=== PATIENT | female | born 1970 | race Caucasian/White ===

== ENCOUNTER 2024-06-10 05:09 | Inpatient (IN) | payer MEDICAID ==
[~2024-06-10] VITALS: Ht 165.1 cm; Wt 109.5 kg
[2024-06-10 07:23] VITALS: PULSE 84; RESP 18; O2SAT 95
[2024-06-10] MEDS: LABETALOL HCL 20 MG/4 ML VL IV ONE (08:37)
[2024-06-10] MEDS: SODIUM CHLORIDE 0.9% 1,000 ML IV ONE (08:38)
[2024-06-10] MEDS: LORazepam 2MG/ML-1ML VIAL IV ONE ×5 (08:38→21:46)
[2024-06-10 08:54] LABS: Basophils # (auto) 0.1 10 ^3/uL (0-0.2); Basophils % (auto) 0.6 % (0.0-2.0); Eosinophils # (auto) 0 10 ^3/uL (0-0.8); Eosinophils % (auto) 0.1 % (0.0-7.0); Hematocrit 46.2 % (36.0-46.0); Hemoglobin 15.7 g/dL (12.2-16.2); Lymphocytes # (auto) 2.3 10 ^3/uL (0.4-5.4); Mean Corpuscular Hemoglobin 34.6 pg (28.0-32.0); Mean Corpuscular Volume 101.7 fL (80.0-100.0); Neutrophils # (auto) 12.9 10 ^3/uL (1.6-8.6); Neutrophils % (auto) 79.3 % (37.0-80.0); Nucleated Red Blood Cells % 0.1 %; Platelet Count (auto) 281 10^3/uL (140-450); Red Blood Cells 4.55 10^6/uL (4.0-5.20); Red Cell Distribution Width 14.2 % (11.8-14.3); White Blood Cell 16.3 10^3/uL (4.4-10.8)
[2024-06-10 09:06] LABS: Urine Bacteria None Seen /hpf (None Seen)
[2024-06-10 09:12] LABS: Alanine Aminotransferase 62 U/L (7-40); Albumin 4.5 g/dL (3.2-4.8); Alkaline Phosphatase 59 U/L (46-116); Anion Gap 12 (5-15); Aspartate Aminotransferase 58 U/L (13-40); BUN/Creatinine Ratio 10.4 (10.0-20.0); Blood Urea Nitrogen 11 mg/dL (9-23); Calcium 10.5 mg/dL (8.7-10.4); Carbon Dioxide 23 mmol/L (20-30); Chloride 106 mmol/L (98-107); Glucose 126 mg/dL (74-106); Magnesium 2.1 mg/dL (1.6-2.6); Potassium 4.1 mmol/L (3.5-5.1); Sodium 141 mmol/L (136-145)
[2024-06-10 09:13] LABS: Bilirubin, Total 0.8 mg/dL (0.2-1.0); Total Protein 7.1 g/dL (5.7-8.2)
[2024-06-10 09:14] LABS: INR 1.02 (0.9-1.15); Partial Thromboplastin Time 23.1 SEC (24.5-34.5)
[2024-06-10 09:22] LABS: Urine Blood Negative /uL (Negative); Urine Clarity Clear (Clear); Urine Color Light-Yellow (Yellow); Urine Protein, UAD TRACE (Negative); Urine Specific Gravity 1.014 (1.001-1.035); Urine Urobilinogen Normal (Negative); Urine WBC <1 /hpf (0 - 5)
[2024-06-10 09:43] LABS: Amphetamine Screen, Urine Neg (NEGATIVE)
[2024-06-10 09:44] LABS: Barbiturate Scree,Urine Neg (NEGATIVE); Benzodiazephine Screen, Urine Pos (NEGATIVE); Cocaine Screen, Urine Neg (NEGATIVE); Opiate Scree,Urine Neg (NEGATIVE); Phencyclidine Screen, Urine Neg (NEGATIVE)
[2024-06-10 09:45] LABS: Cannabinoid Screen, Urine Pos (NEGATIVE)
[2024-06-10] MEDS: OLANZapine 5 MG TAB PO ONE (11:37)
[2024-06-10] MEDS: IOHEXOL 300 MG/ML 100ML BOTTLE IJ ONE (14:02)
[2024-06-10] MEDS ORDERED: NITROGLYCERIN 0.4 MG SL TAB SL PRN (16:15)
[2024-06-10] MEDS ORDERED: MORPHINE SULFATE INJ 2 MG/ml SYRG IV PRN (16:15)
[2024-06-10 16:42] LABS: Base Excess -0.2 mmol/L (-2.0-3.0)
[2024-06-10] MEDS: cefTRIAXone 1GM/50ML D5W 50 ML IV ONE (17:02)
[2024-06-10] MEDS: D5W/SOD CHL 0.45% 1,000 ML IV SCH (17:02)
[2024-06-10] MEDS: LABETALOL HCL 20 MG/4 ML VL IV PRN (17:56)
[2024-06-10] MEDS: levETIRAcetam 500 mg/100ml 100 ML IV ONE (18:06)
[2024-06-10] MEDS: cloNIDine 0.1 mg/24hr 7 DAY PATCH TD ONE (18:44)
[2024-06-10 19:30] VITALS: PULSE 93; RESP 28; O2SAT 95
[2024-06-10 19:51] LABS: COVID19 ANTIGEN SOFIA FIA NEGATIVE (NEGATIVE)
[2024-06-10 19:52] LABS: Rapid Influenza A Negative (Negative); Rapid Influenza B Negative (Negative)
[2024-06-10] MEDS ORDERED: ACETAMINOPHEN 650 MG RECT SUPP PR PRN (21:00)
[2024-06-10] MEDS: HALOPERIDOL LACTATE 5 MG/ML INJ VIAL IM PRN (21:13)
[2024-06-10] MEDS: diphenhdrAMINE HCL 50 MG/1 ML VL IV ONE (21:47)
[2024-06-10] MEDS: HALOPERIDOL LACTATE 5 MG/ML INJ VIAL IM ONE (21:49)
[2024-06-11] MEDS: hydrALAZINE HCL 20 MG/ML VL IV PRN (04:34)
[2024-06-11] MEDS: METOCLOPRAMIDE HCL 5MG/ml INJ 2ml VIAL IV ONE (06:37)
[2024-06-11 07:14] LABS: Basophils # (auto) 0.1 10 ^3/uL (0-0.2); Basophils % (auto) 0.9 % (0.0-2.0); Eosinophils # (auto) 0 10 ^3/uL (0-0.8); Eosinophils % (auto) 0.1 % (0.0-7.0); Hematocrit 45.6 % (36.0-46.0); Hemoglobin 14.9 g/dL (12.2-16.2); Lymphocytes # (auto) 2.7 10 ^3/uL (0.4-5.4); Lymphocytes % (auto) 21.1 % (10.0-50.0); Mean Corpuscular Hemoglobin 33.8 pg (28.0-32.0); Mean Corpuscular Hgb Conc. 32.6 g/dL (32.0-36.0); Mean Corpuscular Volume 103.8 fL (80.0-100.0); Monocytes % (auto) 7.9 % (0.0-12.0); Neutrophils # (auto) 9.1 10 ^3/uL (1.6-8.6); Nucleated Red Blood Cells % 0.1 %; Platelet Count (auto) 216 10^3/uL (140-450); Red Blood Cells 4.39 10^6/uL (4.0-5.20); Red Cell Distribution Width 14.6 % (11.8-14.3)
[2024-06-11 07:17] LABS: Alanine Aminotransferase 48 U/L (7-40); Alkaline Phosphatase 47 U/L (46-116); Anion Gap 12 (5-15); BUN/Creatinine Ratio 4.3 (10.0-20.0); Blood Urea Nitrogen 5 mg/dL (9-23); Calcium 9.9 mg/dL (8.7-10.4); Carbon Dioxide 21 mmol/L (20-30); Chloride 109 mmol/L (98-107); Glucose 132 mg/dL (74-106); Potassium 2.9 mmol/L (3.5-5.1); Sodium 142 mmol/L (136-145)
[2024-06-11 07:18] LABS: Albumin 4.1 g/dL (3.2-4.8); Aspartate Aminotransferase 51 U/L (13-40)
[2024-06-11 07:19] LABS: Total Protein 6.9 g/dL (5.7-8.2)
[2024-06-11 07:50] VITALS: PULSE 97; RESP 22; O2SAT 97
[2024-06-11] MEDS: cefTRIAXone 1GM/50ML D5W 50 ML IV SCH (09:29)
[2024-06-11] MEDS: FAMOTIDINE (10MG/ML) 2ML VL IV SCH (09:30)
[2024-06-11] MEDS: METOCLOPRAMIDE HCL 5MG/ml INJ 2ml VIAL IV PRN (13:00)
[2024-06-11] MEDS: dilTIAZem 125mg/125ml BAG KIT 125 ML IV SCH (13:00)
[2024-06-11] MEDS: dilTIAZem 25 MG/5 ML VIAL IV ONE ×4 (13:04→13:53)
[2024-06-11] MEDS: dilTIAZem 125mg/125ml BAG KIT 125 ML IV ONE (13:05)
[2024-06-11] MEDS: ADENOSINE 6 MG/2 ML INJ IV ONE ×4 (13:38→13:55)
[2024-06-11] MEDS: ONDANSETRON HCL 4 MG/2 ML VIAL ONE (13:53)
[2024-06-11] MEDS: METOPROLOL TARTRATE 1MG/1ML-5ML VIAL IV ONE ×3 (13:54→15:20)
[2024-06-11] MEDS: AMIODARONE 450mg/250ml AE 250 ML IV SCH ×2 (14:45→20:45)
[2024-06-11] MEDS: AMIODARONE BOLUS KIT 100 ML IV ONE (14:46)
[2024-06-11] MEDS: MAGNESIUM SULFATE 1GM/100ML 100 ML IV SCH (15:14)
[2024-06-11] MEDS: ENOXAPARIN SOD 100 MG/1 ML SYRINGE SC SCH ×2 (15:15→21:50)
[2024-06-11] MEDS: DIGOXIN (250MCG/ML) 2 ML AMPULE IV ONE (15:50)
[2024-06-11] MEDS: POTASSIUM CHLORIDE 40 MEQ, LIDOCAINE 1% (LOCAL ANESTH.) 4 ML in SODIUM CHL 0.9% 250 ML IV ONE (17:05)
[2024-06-11 20:35] LABS: Potassium 3.5 mmol/L (3.5-5.1)
[2024-06-11 20:42] LABS: Magnesium 2.3 mg/dL (1.6-2.6)
[2024-06-11] MEDS: LORazepam 2MG/ML-1ML VIAL IV PRN (22:36)
[2024-06-12] MEDS: MELATONIN 5 MG TAB PO SCH (02:16)
[2024-06-12] MEDS: ACETAMINOPHEN 325 MG TAB PO PRN (04:36)
[2024-06-12] MEDS: METOPROLOL TARTRATE 50 MG TAB PO SCH (06:40)
[2024-06-12] MEDS: amLODIPine BESYLATE 5 MG TAB PO SCH (06:41)
[2024-06-12 07:02] LABS: Basophils # (auto) 0.1 10 ^3/uL (0-0.2); Basophils % (auto) 0.8 % (0.0-2.0); Eosinophils # (auto) 0 10 ^3/uL (0-0.8); Eosinophils % (auto) 0.2 % (0.0-7.0); Hemoglobin 13.7 g/dL (12.2-16.2); Lymphocytes # (auto) 2.6 10 ^3/uL (0.4-5.4); Lymphocytes % (auto) 21.6 % (10.0-50.0); Mean Corpuscular Volume 103.4 fL (80.0-100.0); Monocytes # (auto) 1.2 10 ^3/uL (0-1.3); Nucleated Red Blood Cells % 0.1 %; Red Cell Distribution Width 14.2 % (11.8-14.3)
[2024-06-12 07:04] LABS: Hematocrit 41.4 % (36.0-46.0); Mean Corpuscular Hemoglobin 34.3 pg (28.0-32.0); Mean Corpuscular Hgb Conc. 33.1 g/dL (32.0-36.0); Monocytes % (auto) 9.7 % (0.0-12.0); Neutrophils # (auto) 8.2 10 ^3/uL (1.6-8.6); Neutrophils % (auto) 67.7 % (37.0-80.0); Platelet Count (auto) 185 10^3/uL (140-450); Red Blood Cells 4.01 10^6/uL (4.0-5.20)
[2024-06-12 07:20] LABS: Alanine Aminotransferase 42 U/L (7-40); Alkaline Phosphatase 41 U/L (46-116); Anion Gap 9 (5-15); Aspartate Aminotransferase 42 U/L (13-40); Calcium 9.4 mg/dL (8.7-10.4); Carbon Dioxide 19 mmol/L (20-30); Chloride 110 mmol/L (98-107); Glucose 126 mg/dL (74-106); Magnesium 2.2 mg/dL (1.6-2.6); Potassium 3.2 mmol/L (3.5-5.1); Sodium 138 mmol/L (136-145)
[2024-06-12 07:21] LABS: Total Protein 6.4 g/dL (5.7-8.2)
[2024-06-12 07:28] LABS: BUN/Creatinine Ratio 4.5 (10.0-20.0); Blood Urea Nitrogen < 5 mg/dL (9-23)
[2024-06-12 07:30] VITALS: PULSE 81; RESP 14; O2SAT 96
[2024-06-12 13:43] VITALS: BP 173/84; PULSE 76; RESP 15; TEMP 97.9; O2SAT 96
[2024-06-12] MEDS ORDERED: CLON0.1T PO (15:11)
[2024-06-12] MEDS ORDERED: PANT40T PO (15:11)
[2024-06-12] MEDS ORDERED: PRAZ1CAP2 PO (15:11)
[2024-06-12] MEDS ORDERED: HYDR-4798 PO (15:11)
[2024-06-12] MEDS ORDERED: SERT-377 PO (15:11)
[2024-06-12] MEDS ORDERED: NITR50CA52 PO (15:11)
[2024-06-12] MEDS ORDERED: ROSU40TA81 PO (15:11)
[2024-06-12] MEDS ORDERED: ALPR0.254 PO (15:11)
[2024-06-12] MEDS ORDERED: TIZA4TAB9 PO (15:11)
[2024-06-12] MEDS ORDERED: LOSA-535 PO (15:11)
[2024-06-12] MEDS ORDERED: FERR325T20 PO (15:11)
[2024-06-12] MEDS ORDERED: DOXE75CA20 PO (15:11)
[2024-06-12] MEDS ORDERED: IBUP-1456 PO (15:11)
[2024-06-12] MEDS ORDERED: ALBU108A5 IN (15:11)
[2024-06-12] MEDS ORDERED: NIFE90TA75 PO (15:11)
[2024-06-12] MEDS ORDERED: METO25TA93 PO (15:11)
[2024-06-12] MEDS ORDERED: ERGO1CAP23 PO (15:11)
[2024-06-12] MEDS: POTASSIUM CHL 20 Meq TABLET PO ONE (15:22)
[2024-06-12] MEDS: PNEUMOCOCCAL VACC POLYS 25 MCG/0.5 ML VIAL IM ONE (15:30)
[2024-06-12 17:00] VITALS: BP 159/82; PULSE 64; RESP 17; TEMP 98.2; O2SAT 98
[2024-06-12] MEDS ORDERED: amLODIPine BESYLATE 5 MG TAB PO SCH (18:00)
[2024-06-12 20:00] VITALS: PULSE 69
[2024-06-12 21:00] VITALS: BP 124/77; PULSE 68; RESP 17; TEMP 98.3; O2SAT 98
[2024-06-12] MEDS: AMIODARONE HCL 200 MG TAB PO SCH (21:51)
[2024-06-12] MEDS: NIFEdipine ER 30 MG TAB PO SCH (21:52)
[2024-06-12] MEDS: APIXABAN 5 MG TAB PO SCH (21:53)
[2024-06-13 01:00] VITALS: BP 115/49; PULSE 72; RESP 17; TEMP 98.4; O2SAT 94
[2024-06-13 05:00] VITALS: BP 115/47; PULSE 75; RESP 15; TEMP 98.6; O2SAT 96
[2024-06-13 06:48] LABS: Basophils # (auto) 0.1 10 ^3/uL (0-0.2); Eosinophils # (auto) 0.1 10 ^3/uL (0-0.8); Hemoglobin 12.9 g/dL (12.2-16.2); Monocytes # (auto) 0.7 10 ^3/uL (0-1.3); Nucleated Red Blood Cells % 0.5 %
[2024-06-13 06:51] LABS: Basophils % (auto) 0.7 % (0.0-2.0); Eosinophils % (auto) 1.5 % (0.0-7.0); Hematocrit 38.2 % (36.0-46.0); Mean Corpuscular Hemoglobin 35.2 pg (28.0-32.0); Mean Corpuscular Hgb Conc. 33.9 g/dL (32.0-36.0); Monocytes % (auto) 8.7 % (0.0-12.0); Neutrophils # (auto) 4.7 10 ^3/uL (1.6-8.6); Neutrophils % (auto) 63.1 % (37.0-80.0); Platelet Count (auto) 177 10^3/uL (140-450); Red Blood Cells 3.67 10^6/uL (4.0-5.20); Red Cell Distribution Width 14.6 % (11.8-14.3); White Blood Cell 7.5 10^3/uL (4.4-10.8)
[2024-06-13 07:12] LABS: Alanine Aminotransferase 28 U/L (7-40); Albumin 3.5 g/dL (3.2-4.8); Alkaline Phosphatase 35 U/L (46-116); Anion Gap 8 (5-15); Aspartate Aminotransferase 33 U/L (13-40); BUN/Creatinine Ratio 4.5 (10.0-20.0); Blood Urea Nitrogen 5 mg/dL (9-23); Calcium 9.1 mg/dL (8.7-10.4); Carbon Dioxide 21 mmol/L (20-30); Chloride 112 mmol/L (98-107); Glucose 99 mg/dL (74-106); Magnesium 2.1 mg/dL (1.6-2.6); Potassium 3.6 mmol/L (3.5-5.1); Sodium 141 mmol/L (136-145)
[2024-06-13 07:13] LABS: Bilirubin, Total 0.7 mg/dL (0.2-1.0); Total Protein 5.7 g/dL (5.7-8.2)
[2024-06-13 08:00] VITALS: PULSE 62
[2024-06-13 09:00] VITALS: BP 139/69; PULSE 68; RESP 20; TEMP 97.7; O2SAT 93
[2024-06-13 13:00] VITALS: BP 130/66; PULSE 77; RESP 17; TEMP 97.6; O2SAT 95
[2024-06-13] MEDS ORDERED: AMIO200T33 PO (13:12)
[2024-06-13] MEDS ORDERED: METO25TA93 PO (13:12)
[2024-06-13] MEDS ORDERED: APIX5TAB PO (13:12)
[2024-06-13 13:44] VITALS: BP 132/64; PULSE 64; RESP 17; TEMP 97.8; O2SAT 94
[2024-06-13] MEDS ORDERED: CEFD300C2 PO (16:15)
[2024-06-13] MEDS ORDERED: MUPI2OIN2 NAS (16:15)
== END 2024-06-13 16:10 | disposition home health service (06) | DRG 463 ==
LOC: EDBD 05:09 → ER 05:09 → TELE-EAST 16:17 → ER 16:17 → TELE 16:17 → TELE-EAST 06-12 13:15
PROVIDERS: ADMIT Hospitalist; ATTEND Hospitalist
DX: N30.00 Acute cystitis without hematuria (principal); G93.41 Metabolic encephalopathy; I67.4 Hypertensive encephalopathy; I10 Essential (primary) hypertension; E66.01 Morbid (severe) obesity due to excess calories; J45.909 Unspecified asthma, uncomplicated; E87.6 Hypokalemia; B96.1 Klebsiella pneumoniae [K. pneumoniae] as the cause of diseases classified elsewhere; R32 Unspecified urinary incontinence; I48.91 Unspecified atrial fibrillation; Z88.1 Allergy status to other antibiotic agents; Z85.43 Personal history of malignant neoplasm of ovary; Z85.41 Personal history of malignant neoplasm of cervix uteri; Z86.73 Personal history of transient ischemic attack (TIA), and cerebral infarction without residual deficits; Z79.899 Other long term (current) drug therapy; Z68.38 Body mass index [BMI] 38.0-38.9, adult
CPT/HCPCS: 36415; 36600; 70450; 70551; 71045; 71275; 80053; 80307; 81001; 82140; 82805; 83605; 83735; 84132; 84484; 85025; 85379; 85610; 85730; 87040; 87081; 87086; 87088; 87186; 87426; 87804; 93005; 93306; 96374; 96375; 97163; 99291; G0378; J0153; J2001; J2405; J3490

== ENCOUNTER 2024-12-16 20:02 | Inpatient (IN) | payer MEDICAID ==
[~2024-12-16] VITALS: Ht 165.1 cm; Wt 106.8 kg
[~2024-12-16 20:02] MED LIST: ALBU108A5 IN; ALPR0.254 PO; AMIO200T33 PO; APIX5TAB PO; CEFD300C2 PO; DOXE75CA20 PO; ERGO1CAP23 PO; FERR325T20 PO; HYDR-4798 PO; LOSA-535 PO; METO25TA93 PO; MUPI2OIN2 NAS; NIFE90TA75 PO; PANT40T PO; PRAZ1CAP2 PO; ROSU40TA81 PO; SERT-377 PO; TIZA4TAB9 PO
--- NOTE | 2024-12-16 20:13 | ED.PDOC ---
SOB-HPI HPI Comments 54 year old female brought in by EMS presents to the ED with a chief complaint of shortness of breath onset 5 days. Per EMS, patient had been experiencing shortness of breath for the past 5 days, had been trying to manage it on her own with breathing treatment, no improvement noted. Per EMS, patient's O2 was 80% RA, HR 90, BP 155/93, was given 3 breathing treatments in route, O2 improved to 96%, dropped to 80% few minutes after, was placed on C-pap. Patient states she feels exhausted, has experienced similar symptoms in the past and was intubated. PMHx CHF, COPD, a-fib, ovarian cancer, HTN, HLD, CKF. Denies congestion, fever, chills, nausea, vomiting, diarrhea. No other symptoms or modifying factors pre sent at this time. Chief Complaint: Shortness of Breath Time Seen by MD: 19:58 Primary Care Provider: NONE Reviewed notes: Medications, Allergies Information Source: Patient, Emergency Med Personnel Mode of Arrival: EMS Severity: Moderate Timing: Days Duration: Since onset Context: At Rest PE Risk Factors: None History of: COPD, CHF Prehospital treatment: Breathing Tx, C-Pap Modifying Factors: Nothing Associated Signs and Symptoms: Cough Radiation: No Radiation Vital Signs Vital Signs Date Time Temp Pulse Resp B/P (MAP) Pulse Ox O2 Delivery O2 Flow Rate FiO2 12/16/24 21:59 95 Nasal Cannula* 5 40 12/16/24 21:11 91 26 142/77 12/16/24 20:11 97.2 Physical Exam General: Awake, alert and oriented. Skin: Skin in warm, dry and intact. Appropriate color for ethnicity. HEENT: The head is normocephalic and atraumatic. Conjunctivae are clear without exudates or hemorrhage. Sclera is non-icteric. EOM are intact. No signs of nystagmus. Eyelids are normal in appearance without swelling or lesions. Oral mucosa is pink and moist Neck: The neck is supple with normal range of motion. No JVD. Cardiac: Heart rate and rhythm are normal. No murmurs, gallops, or rubs are auscultated. Respiratory: Labored, tachypneic respirations. Bilateral rales Abdominal: Abdomen is soft, non-tender without distention. Bowel sounds are present and normoactive in all four quadrants. Extremities: Upper and lower extremities are atraumatic in appearance without deformity or edema. Neurological: The patient is awake, alert and oriented to person, place, and time with normal speech. Speech is clear. There is no facial asymmetry. Psychiatric: Appropriate mood and affect. Good judgement and insight. No visual or auditory hallucinations. Review of Systems: REVIEW OF SYSTEMS: No fever, no chills, or fatigue HEENT: No sore throat, no earache, no congestion, no neck pain. Cardiac: Positive chest pain. No palpitations. Lungs: Positive shortness of breath, pauses cough. GI: No nausea, no vomiting, no diarrhea, no constipation, no abdominal pain : No dysuria, frequency, or urgency. No hematuria. Musculoskeletal: No joint pain , no joint swelling, no extremity edema. Skin: No rash, no itching. 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 Was a procedure done?: No Differential Dx Differential Diagnosis: Other Comments Differential diagnoses considered includebut arenot limited to acute Bronchitis, Asthma, COPD, Pneumothorax, PE, CHF, Pulmonary HTN, Anemia, CO Poisoning, Methemoglobinemia, Hyperventilation, Metabolic Acidosis, Pulmonary Edema, Pneumonia, ACS, Pericardial Tamponade, Anxiety, other X-Ray, Labs, Meds, VS Vital Signs Date Time Temp Pulse Resp B/P (MAP) Pulse Ox O2 Delivery O2 Flow Rate FiO2 12/16/24 21:59 95 Nasal Cannula* 5 40 12/16/24 21:11 91 26 142/77 12/16/24 21:07 142/77 12/16/24 20:11 97.2 90 30 150/93 (112) 96 12/16/24 20:05 88 142/77 Facial BiPAP Mask 60 12/16/24 20:05 91 12/16/24 20:02 93 Lab Test 12/16/24 22:55 12/16/24 21:55 12/16/24 21:37 12/16/24 20:44 Range/Units Urine Color Light-yellow Yellow Urine Clarity Clear Clear Urine pH 6.0 5.0-9.0 Urine Specific [place] 1.007 1.001-1.035 Urine Protein Negative Negative Urine Ketones Negative Negative Urine Blood Negative Negative /uL Urine Nitrite Negative Negative Urine Bilirubin Negative Negative Urine Urobilinogen Normal Negative mg/dL Urine Leukocyte Esterase Negative Negative /uL Urine RBC 1 0 - 4 /hpf Urine Microscopic WBC < 1 0-5 /HPF Urine Squamous Epithelial Cells Few <5 /hpf Urine Bacteria Few H None Seen /hpf Urine Mucus Few None Seen Urine Glucose Normal Normal mg/dL Troponin I High Sensitivity 3 L 3 L </=34 ng/L Blood Gas Specimen Type Arterial Blood Gas Sample Site Left radial Blood Gas Patient Temperature 37.0 Arterial Blood Date Drawn [id number] Arterial Blood pH 7.418 7.350-7.450 Arterial Blood Partial Pressure CO2 37.2 32.0-45.0 mmHg Arterial Blood Partial Pressure O2 87.0 83.0-108.0 mmHg Arterial Blood HCO3 23.5 21.0-28.0 mmol/L Arterial Blood Oxygen Saturation 95.7 94.0-98.0 % Arterial Blood Base Excess -0.8 -2.0-3.0 mmol/L Arterial Blood Oxyhemoglobin 94.4 94.0-98.0 % Arterial Blood Carboxyhemoglobin 1.2 0.5-1.5 % Arterial Blood Methemoglobin 0.2 0.0-1.5 % Elfego Test Modified Blood Gas Total Hemoglobin 9.70 L 12.0-16.0 g/dL Blood Gas Set Respiration Rate 14.0 Blood Gas Modality Mask - bipap FiO2 % 60.0 Blood Gas EPAP 5 Blood Gas IPAP 14 White Blood Count 11.0 H 4.4-10.8 10^3/uL Red Blood Count 2.96 L 4.0-5.20 10^6/uL Hemoglobin 10.0 L 12.2-16.2 g/dL Hematocrit 31.5 L 36.0-46.0 % Mean Corpuscular Volume 106.4 H 80.0-100.0 fL Mean Corpuscular Hemoglobin 33.7 H 28.0-32.0 pg Mean Corpuscular Hemoglobin Concent 31.7 L 32.0-36.0 g/dL Red Cell Distribution Width 16.6 H 11.8-14.3 % Platelet Count 237 140-450 10^3/uL Mean Platelet Volume 8.7 6.9-10.8 fL Neutrophils (%) (Auto) 81.2 H 37.0-80.0 % Lymphocytes (%) (Auto) 13.0 10.0-50.0 % Monocytes (%) (Auto) 4.4 0.0-12.0 % Eosinophils (%) (Auto) 1.1 0.0-7.0 % Basophils (%) (Auto) 0.3 0.0-2.0 % Neutrophils # (Auto) 8.9 H 1.6-8.6 10 ^3/uL Lymphocytes # (Auto) 1.4 0.4-5.4 10 ^3/uL Monocytes # (Auto) 0.5 0-1.3 10 ^3/uL Eosinophils # (Auto) 0.1 0-0.8 10 ^3/uL Basophils # (Auto) 0 0-0.2 10 ^3/uL Nucleated Red Blood Cells 0.0 % D-Dimer, Quantitative 0.80 H 0.0-0.49 mg/L FEU Sodium Level 138 136-145 mmol/L Potassium Level 4.1 3.5-5.1 mmol/L Chloride Level 103 98-107 mmol/L Carbon Dioxide Level 26 20-31 mmol/L Anion Gap 9 5-15 Blood Urea Nitrogen 11 9-23 mg/dL Creatinine 1.06 H 0.550-1.02 mg/dL Glomerular Filtration Rate Calc 62 >90 mL/min BUN/Creatinine Ratio 10.4 10.0-20.0 Serum Glucose 117 H 74-106 mg/dL Lactic Acid Level 1.0 0.4-2.0 mmol/L Calcium Level 9.9 8.7-10.4 mg/dL Total Bilirubin 1.0 0.2-1.0 mg/dL Aspartate Amino Transferase (AST) 31 13-40 U/L Alanine Aminotransferase (ALT) 10 7-40 U/L Alkaline Phosphatase 57 46-116 U/L B-Type Natriuretic Peptide 265.13 0-100 pg/mL Total Protein 7.3 5.7-8.2 g/dL Albumin 4.7 3.2-4.8 g/dL Current Medications Medications (Trade) Dose Ordered Sig/Bárbara Route Start Time Stop Time Status Last Admin Albuterol (Ventolin Medneb) 5 mg ONCE ONCE NEB 12/16/24 20:15 12/16/24 20:16 DC 12/16/24 20:30 Ipratropium Butler (Atrovent Medneb) 0.5 mg ONCE ONCE NEB 12/16/24 20:15 12/16/24 20:16 DC 12/16/24 20:30 Furosemide (Lasix Injection) 40 mg ONCE ONCE IV 12/16/24 20:15 12/16/24 20:16 DC 12/16/24 21:07 Methylprednisolone Sodium Succinate (Solu Medrol) 80 mg ONCE ONCE IV 12/16/24 20:15 12/16/24 20:16 DC 12/16/24 21:08 Morphine Sulfate 2 mg ONCE ONCE IV 12/16/24 20:15 12/16/24 20:16 DC 12/16/24 21:11 Aspirin 324 mg ONCE ONCE PO 12/16/24 20:15 12/16/24 20:16 DC 12/16/24 21:08 [place] [id number] Ph: [phone] DIAGNOSTIC IMAGING Diagnostic Imaging Report : [id number] Signed PATIENT: HATTIE LOUIS ACCT: [id number] UNIT: [id number] : 1970 LOC: ER ROOM / BED: / AGE / SEX: 54 / F ADM STATUS: REG ER SERVICE 05 ORDERING PHYSICIAN: ZAYRA JENNINGS MD PROCEDURE(s): CXR1 - CHEST XRAY 1 VIEW REASON: Shortness of breath ORDER NUMBER(s): [id number], ACCESSION NUMBER(s): [id number] CHEST RADIOGRAPH Indication: Shortness of breath Technique: Single frontal view of the chest was obtained Comparison: XY CHEST PORTABLE on DOS: 06/10/24 FINDINGS: Lines and Tubes: None Lungs: Diffuse interstitial opacities. Pleura: No effusion. No pneumothorax. Cardiomediastinal contours: Cardiomegaly. Bones: No acute osseous abnormality. IMPRESSION: Diffuse pulmonary edema / CHF. ATED BY: GARTH WEBB MD DICTATED DATE/TIME: 12/16/242109 SIGNED BY: GARTH WEBB MD SIGNED DATE/TIME: 12/16/242109 CC: Time of 1ST Reevaluation: 20:28 Reevaluation 1ST: Unchanged Patient Education/Counseling: Diagnosis, Treatment, Prognosis Family Education/Counseling: No Family Present Departure 1 Departure Time of Disposition: 22:41 Impression: Primary Impression: CHF exacerbation Additional Impressions: Anemia Pulmonary edema Hypoxia Disposition: ADMITTED INPATIENT Condition: Stable Comments 54-year-old female with a History of hypertension, TIA, ovarian and cervical cancer, AFib presented to the emergency department via EMS with respiratory distress. She was placed on CPAP given DuoNeb treatments EN route. On arrival to the ED she was transferred to BiPAP, additional respiratory treatment, Solu- Medrol, Lasix were administered. Patient respiratory status improved. Chest x- ray shows diffuse pulmonary edema. BNP is 265. EKG shows sinus rhythm. PE unlikely given patient is on Eliquis and age corrected D-dimer. Patient admitted for further treatment, evaluation and monitoring. Extensive evaluation was performed in attempt to identify or rule out: (See differential diagnosis section) The following tests were ordered, and results were reviewed by me: (See diagnostic results section) The following test were independently interpreted by me: EKG I reviewed and agreed with the following test results read by other providers: Chest x-ray I reviewed the following notes from the pt's past medical encounters: Encounter June 2024 for acute loss of consciousness Additional information was gathered from interviewing the following independent historians: EMS personnel Discussion of management or test interpretation with external physician/other qualified health skin care specialist: N/A Addressed An acute or chronic illness that poses a threat to life or bodily function: Acute pulmonary edema/CHF, hypoxia Decision regarding hospitalization or escalation of hospital level of care: Risk and benefits of admission for further treatment of patient's condition was considered. Due to patient's current clinical condition, high risk of decline and poor outcome if discharged and need for further inpatient management and monitoring, patient will be admitted to the hospital. Drug therapy requiring intensive monitoring for toxicity: IV Lasix, IV Solu- Medrol Parenteral controlled substances: IV morphine Decision regarding elective major surgery with identified patient or procedure risk factors: N/A Decision regarding emergency major surgery: N/A Decision not to resuscitate or to de-escalate care because of poor prognosis: N/A Diagnosis or treatment significantly limited by social determinants of health: N/A Critical Care Note Critical Care Time?: Yes (35 min-critical care time only) Critical care comment: Due to a high probability of clinically significant, life threatening deterioration, the patient required my highest level of preparedness to interv shaista emergently and I personally spent this critical care time directly and personally managing the patient. This critical care time included obtaining a history; examining the patient; pulse oximetry; ordering and review of studies; arranging urgent treatment with development of a management plan; evaluation of patient's response to treatment; frequent reassessment; and, discussions with other providers. This critical care time was performed to assess and manage the high probability of imminent, life-threatening deterioration that could result in multi-organ failure. It was exclusive of separately billable procedures and treating other patients and teaching time. Please see my other sections and the rest of the note for further information on patient assessment and treatment. Stability Stability form required: No Heart Score Heart Score: Heart Score Response (Comments) Value History N/A 0 EKG N/A 0 Age N/A 0 Risk Factors N/A 0 Troponin N/A 0 Total 0 I personally scribed for ZAYRA JENNINGS MD ([email or web address]) on 12/16/24 at 20:13. E lectronically submitted by Yvette Connell ([email or web address]). I personally scribed for ZAYRA JENNINGS MD ([email or web address]) on 12/16/24 at 21:29. El ectronically submitted by Yvette Connell ([email or web address]). ZAYRA JENNINGS MD Dec 16, 2024 20:13
--- NOTE | 2024-12-16 20:16 | ECG ---
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
[2024-12-16] MEDS: IPRATROPIUM BROM 0.5 MG/2.5ML INH SOL NEB ONE (20:30)
[2024-12-16] MEDS: ALBUTEROL SULF 2.5 MG/0.5ML(0.5%) NEB SOLN NEB ONE (20:30)
[2024-12-16 20:53] LABS: Basophils # (auto) 0 10 ^3/uL (0-0.2); Basophils % (auto) 0.3 % (0.0-2.0); Eosinophils # (auto) 0.1 10 ^3/uL (0-0.8); Eosinophils % (auto) 1.1 % (0.0-7.0); Hematocrit 31.5 % (36.0-46.0); Lymphocytes # (auto) 1.4 10 ^3/uL (0.4-5.4); Mean Corpuscular Hemoglobin 33.7 pg (28.0-32.0); Mean Corpuscular Hgb Conc. 31.7 g/dL (32.0-36.0); Mean Corpuscular Volume 106.4 fL (80.0-100.0); Monocytes # (auto) 0.5 10 ^3/uL (0-1.3); Monocytes % (auto) 4.4 % (0.0-12.0); Neutrophils # (auto) 8.9 10 ^3/uL (1.6-8.6); Neutrophils % (auto) 81.2 % (37.0-80.0); Platelet Count (auto) 237 10^3/uL (140-450); Red Blood Cells 2.96 10^6/uL (4.0-5.20); Red Cell Distribution Width 16.6 % (11.8-14.3)
[2024-12-16] MEDS: methylPREDNISolone SOD SUCC 40 MG/ML VL IV ONE (21:00)
[2024-12-16] MEDS: FUROSEMIDE 40 MG/4 ML VIAL IV ONE ×2 (21:07→22:17)
[2024-12-16] MEDS: ASPirin 81 mg TAB PO ONE ×2 (21:08→22:18)
[2024-12-16] MEDS: methylPREDNISolone SOD SUCC 125 MG/2 ML VL IV ONE (21:08)
[2024-12-16] MEDS: MORPHINE SULFATE INJ 2 MG/ml SYRG IV ONE ×2 (21:11→22:18)
--- NOTE | 2024-12-16 21:12 | DVH ---
CHEST RADIOGRAPH Indication: Shortness of breath Technique: Single frontal view of the chest was obtained Comparison: XY CHEST PORTABLE on DOS: 06/10/24 FINDINGS: Lines and Tubes: None Lungs: Diffuse interstitial opacities. Pleura: No effusion. No pneumothorax. Cardiomediastinal contours: Cardiomegaly. Bones: No acute osseous abnormality. IMPRESSION: Diffuse pulmonary edema / CHF.
[2024-12-16 21:55] LABS: Alanine Aminotransferase 10 U/L (7-40); Albumin 4.7 g/dL (3.2-4.8); Alkaline Phosphatase 57 U/L (46-116); Anion Gap 9 (5-15); Aspartate Aminotransferase 31 U/L (13-40); BUN/Creatinine Ratio 10.4 (10.0-20.0); Blood Urea Nitrogen 11 mg/dL (9-23); Calcium 9.9 mg/dL (8.7-10.4); Carbon Dioxide 26 mmol/L (20-31); Chloride 103 mmol/L (98-107); Potassium 4.1 mmol/L (3.5-5.1); Sodium 138 mmol/L (136-145); Total Protein 7.3 g/dL (5.7-8.2)
[2024-12-16 21:56] LABS: Glucose 117 mg/dL (74-106)
[2024-12-16 22:18] LABS: Base Excess -0.8 mmol/L (-2.0-3.0)
[2024-12-16 23:11] LABS: Urine Bacteria FEW /hpf (None Seen); Urine Blood Negative /uL (Negative); Urine Clarity Clear (Clear); Urine Color Light-Yellow (Yellow); Urine Mucus FEW (None Seen); Urine Protein, UAD Negative (Negative); Urine Specific Gravity 1.007 (1.001-1.035); Urine Squamous Epithelial Cell FEW /hpf (<5); Urine Urobilinogen Normal (Negative); Urine WBC < 1 /HPF (0-5)
--- NOTE | 2024-12-16 23:57 | DVHHPRES ---
History of Present Illness Resident Creating Document: ELISEO GOMEZ RESDIENT History of Present Illness This is a 54-year-old female with past medical history of COPD (on 3 L of oxygen at home), CHF, paroxysmal atrial fibrillation, hypertension, dyslipidemia, rheumatoid arthritis, fibromyalgia, and CKD came to the hospital due to shortness of breaths functional class 4 since 5 days. She also reports chest pain, cough, nausea, vomiting, fatigue, and decreased oral intake. She denies fever, chills, abdominal pain, recent bowel and bladder habit changes, or any recent sick contact. Upon arrival to the ED oxygen saturation was at 80s, put on CPAP and then put on oxygen through nasal cannula. Patient is seen by at office. Patient has history of MRSA pneumonia in June 2024, which required intubation. 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 Has home health care nurse, who helps her with taking medicine Home medication: Nifedipine 90 mg, prazosin 2 mg, sertraline 100 mg, fluticasone, hydroxyzine, Eliquis 5 mg b.i.d., metoprolol 200 mg, doxepin, tizanidine, rosuvastatin, and multivitamin Allergic history: Azithromycin, erythromycin, ondansetron Review of Systems Review of Systems General: Reports generalized weakness and fatigue and decreased oral intake HEENT: No headaches, visiual changes, hearing loss, tinnitus, nasal congestion and discharge, and sore throat. Cardiovascular: Reports chest pain Respiratory: Reports shortness of breaths and cough Gastrointestinal: Reports nausea, and vomiting Genitourinary: No dysuria, hematuria, discharge, frequency, urgency, nocturia, incontinence, and urinary retention. Endocrine: No heat or cold intolerance, polydipsia, polyuria, and polyphagia. Neurological: No dizziness, extremity weakness and numbness, tremors, gait disturbance, seizures, and memory impairment. Psychiatric: Denies depression, anxiety,or insomnia. Musculoskeletal: Denies neck pain, stiffness and swelling, back pain, muscle wea kness, joint pain, stiffness, swelling, or limited range of motion. Skin: No rashes, itching, skin lesion, changes in hair, nail, skin texture and breast. Hematologic/Lymphatic: Denies easy bruising, bleeding tendencies, or lymph node enlargement. Allergies: Coded Allergies: Erythromycin (Unverified Allergy, Severe, 07/08/15) Ondansetron (Unverified Allergy, Severe, 07/08/15) Azithromycin (Verified Allergy, Unknown, 12/16/24) Exam Vital Signs Vital Signs Date Time Temp Pulse Resp B/P (MAP) Pulse Ox O2 Delivery O2 Flow Rate FiO2 12/16/24 21:59 95 Nasal Cannula* 5 40 12/16/24 21:11 91 26 142/77 12/16/24 20:11 97.2 Exam General Appearance: Alert, Oriented X3, Cooperative, in moderate respiratory distress HEENT: Atraumatic, PERRLA, EOMI, Mucous membrane moist/pink Respiratory: Bilateral diffuse crackles Cardiovascular: Regular rate, Normal S1, Normal S2, No murmurs, no chest wall tenderness Abdominal: Normal bowel sounds, Soft, No tenderness, No hepatospenomegaly, No masses Extremities: No clubbing, No cyanosis, No edema, Normal pulses, No tenderness/swelling Skin: No rashes, No breakdown, No significant lesion Neuro: Normal gait, Normal speech, Strength at 5/5 X4 ext, Normal tone, Sensation intact, Cranial nerves 3-12 NL, Reflexes 2+ Psych/Mental Status: Mental status NL, Mood NL Labs/Xrays Labs Test 12/16/24 22:55 12/16/24 21:55 12/16/24 21:37 12/16/24 20:44 Range/Units Urine Color Light-yellow Yellow Urine Clarity Clear Clear Urine pH 6.0 5.0-9.0 Urine Specific [place] 1.007 1.001-1.035 Urine Protein Negative Negative Urine Ketones Negative Negative Urine Blood Negative Negative /uL Urine Nitrite Negative Negative Urine Bilirubin Negative Negative Urine Urobilinogen Normal Negative mg/dL Urine Leukocyte Esterase Negative Negative /uL Urine RBC 1 0 - 4 /hpf Urine Microscopic WBC < 1 0-5 /HPF Urine Squamous Epithelial Cells Few <5 /hpf Urine Bacteria Few H None Seen /hpf Urine Mucus Few None Seen Urine Glucose Normal Normal mg/dL Troponin I High Sensitivity 3 L </=34 ng/L Blood Gas Specimen Type Arterial Blood Gas Sample Site Left radial Blood Gas Patient Temperature 37.0 Arterial Blood Date Drawn [id number] Arterial Blood pH 7.418 7.350-7.450 Arterial Blood Partial Pressure CO2 37.2 32.0-45.0 mmHg Arterial Blood Partial Pressure O2 87.0 83.0-108.0 mmHg Arterial Blood HCO3 23.5 21.0-28.0 mmol/L Arterial Blood Oxygen Saturation 95.7 94.0-98.0 % Arterial Blood Base Excess -0.8 -2.0-3.0 mmol/L Arterial Blood Oxyhemoglobin 94.4 94.0-98.0 % Arterial Blood Carboxyhemoglobin 1.2 0.5-1.5 % Arterial Blood Methemoglobin 0.2 0.0-1.5 % Elfego Test Modified Blood Gas Total Hemoglobin 9.70 L 12.0-16.0 g/dL Blood Gas Set Respiration Rate 14.0 Blood Gas Modality Mask - bipap FiO2 % 60.0 Blood Gas EPAP 5 Blood Gas IPAP 14 White Blood Count 11.0 H 4.4-10.8 10^3/uL Red Blood Count 2.96 L 4.0-5.20 10^6/uL Hemoglobin 10.0 L 12.2-16.2 g/dL Hematocrit 31.5 L 36.0-46.0 % Mean Corpuscular Volume 106.4 H 80.0-100.0 fL Mean Corpuscular Hemoglobin 33.7 H 28.0-32.0 pg Mean Corpuscular Hemoglobin Concent 31.7 L 32.0-36.0 g/dL Red Cell Distribution Width 16.6 H 11.8-14.3 % Platelet Count 237 140-450 10^3/uL Mean Platelet Volume 8.7 6.9-10.8 fL Neutrophils (%) (Auto) 81.2 H 37.0-80.0 % Lymphocytes (%) (Auto) 13.0 10.0-50.0 % Monocytes (%) (Auto) 4.4 0.0-12.0 % Eosinophils (%) (Auto) 1.1 0.0-7.0 % Basophils (%) (Auto) 0.3 0.0-2.0 % Neutrophils # (Auto) 8.9 H 1.6-8.6 10 ^3/uL Lymphocytes # (Auto) 1.4 0.4-5.4 10 ^3/uL Monocytes # (Auto) 0.5 0-1.3 10 ^3/uL Eosinophils # (Auto) 0.1 0-0.8 10 ^3/uL Basophils # (Auto) 0 0-0.2 10 ^3/uL Nucleated Red Blood Cells 0.0 % D-Dimer, Quantitative 0.80 H 0.0-0.49 mg/L FEU Sodium Level 138 136-145 mmol/L Potassium Level 4.1 3.5-5.1 mmol/L Chloride Level 103 98-107 mmol/L Carbon Dioxide Level 26 20-31 mmol/L Anion Gap 9 5-15 Blood Urea Nitrogen 11 9-23 mg/dL Creatinine 1.06 H 0.550-1.02 mg/dL Glomerular Filtration Rate Calc 62 >90 mL/min BUN/Creatinine Ratio 10.4 10.0-20.0 Serum Glucose 117 H 74-106 mg/dL Lactic Acid Level 1.0 0.4-2.0 mmol/L Calcium Level 9.9 8.7-10.4 mg/dL Total Bilirubin 1.0 0.2-1.0 mg/dL Aspartate Amino Transferase (AST) 31 13-40 U/L Alanine Aminotransferase (ALT) 10 7-40 U/L Alkaline Phosphatase 57 46-116 U/L B-Type Natriuretic Peptide 265.13 0-100 pg/mL Total Protein 7.3 5.7-8.2 g/dL Albumin 4.7 3.2-4.8 g/dL Assessment/Plan Assessment/Plan Acute on chronic hypoxic respiratory failure, likely due to heart failure exacerbation/COPD exacerbation Acute exacerbation of congestive heart failure Acute exacerbation of COPD (on 3 L of oxygen at home) Paroxysmal atrial fibrillation Hypertension Dyslipidemia Chest x-ray shows bilateral diffuse infiltration BNP is raised at 265 Echo from 06/13/2024 shows EF 60% with moderate to severe aortic insufficiency with mild tricuspid/mitral valve insufficiency Echocardiogram Consult cardiology IV Lasix 40 mg b.i.d. Continue home meds, nifedipine, losartan Oxygen through nasal cannula Levofloxacin Solu-Medrol History of rheumatoid arthritis History of fibromyalgia DIET: Cardiac diet DVT PROPHYLAXIS: Lovenox CODE STATUS: Goal of care discussed for more than 90 minutes, full code DISPOSITION: Telemetry Patient's status and paln discussed with the patient. Case discussed with Dr. Mcelroy. Plan discussed with: Patient My Orders Orders - ELISEO GOMEZ Procedure Category Date Status Time Admit ADMIT 12/16/24 Verified 23:56 Nitroglycerin [facility] 12/17/24 Verified Sublingual (Ntrostat 00:00 Morphine Sulfate [facility] 12/17/24 Verified Injection 00:00 Oxygen By Nasal RT 12/16/24 Verified Cannula 23:56 Stat Ekg For Chest [facility] 12/16/24 Verified Pain 23:56 Notify Md Of Changes [facility] 12/16/24 Verified From Base 23:56 Lace Roller Operator For [facility] 12/16/24 Verified 24 Hours 23:56 Emergency Dysrhythmia [facility] 12/16/24 Verified Protocol 23:56 Rhythm Strips Once [facility] 12/16/24 Verified Every Shift 23:56 Date of Service: Dec 16, 2024 Billing Provider: DENNIS MCELROY MD Common Visit Codes: [id number] INP/OBS CARE (HIGH) ELISEO GOMEZ RESDIDOMONIQUE Dec 16, 2024 23:57 DENNIS MCELROY MD Dec 17, 2024 11:32
[2024-12-17] VITALS (13 sets, daily range): BP systolic 140–148; BP diastolic 70–82; PULSE 78–91; RESP 16–26; TEMP 97.2–98.3; O2SAT 90–100
[2024-12-17] MEDS ORDERED: MORPHINE SULFATE INJ 2 MG/ml SYRG IV PRN
[2024-12-17] MEDS ORDERED: NITROGLYCERIN 0.4 MG SL TAB SL PRN
[2024-12-17] MEDS: LOSARTAN POTASSIUM 50 MG TAB PO ONE (00:45)
[2024-12-17] MEDS: ATORVASTATIN 20 MG TAB PO ONE (00:45)
[2024-12-17] MEDS: FUROSEMIDE 40 MG/4 ML VIAL IV ONE (00:45)
[2024-12-17] MEDS: SERTRALINE HCL 50 MG TAB PO ONE (00:45)
[2024-12-17] MEDS: PRAZOSIN HCL 1 MG CAP PO ONE (00:45)
[2024-12-17] MEDS: AMIODARONE HCL 200 MG TAB PO ONE (00:45)
[2024-12-17] MEDS: NIFEdipine ER 30 MG TAB PO ONE (01:00)
[2024-12-17 01:58] LABS: Benzodiazephine Screen, Urine Pos (NEGATIVE); Cannabinoid Screen, Urine Pos (NEGATIVE); Opiate Scree,Urine Neg (NEGATIVE)
[2024-12-17 02:01] LABS: Amphetamine Screen, Urine Neg (NEGATIVE); Barbiturate Scree,Urine Neg (NEGATIVE); Cocaine Screen, Urine Neg (NEGATIVE); Phencyclidine Screen, Urine Neg (NEGATIVE)
[2024-12-17] MEDS: MORPHINE SULFATE INJ 2 MG/ml SYRG IV ONE (02:07)
[2024-12-17] MEDS: levoFLOXacin 500MG 100 ML IV ONE (05:00)
[2024-12-17] MEDS: HYDROcodone-ACET 5/325MG TAB PO ONE (05:22)
[2024-12-17] MEDS: FUROSEMIDE 40 MG/4 ML VIAL IV SCH (05:57)
[2024-12-17] MEDS: IPRATROPIUM BROM 0.5 MG/2.5ML INH SOL NEB SCH (06:50)
[2024-12-17] MEDS: LEVALBUTEROL HCL 1.25 MG/3 ML NEB NEB SCH (06:50)
[2024-12-17 07:58] LABS: Eosinophils # (auto) 0 10 ^3/uL (0-0.8); Hemoglobin 9.2 g/dL (12.2-16.2); Monocytes # (auto) 0.2 10 ^3/uL (0-1.3); Monocytes % (auto) 1.7 % (0.0-12.0); Neutrophils # (auto) 9.9 10 ^3/uL (1.6-8.6); White Blood Cell 11.2 10^3/uL (4.4-10.8)
[2024-12-17 08:01] LABS: Albumin 4.7 g/dL (3.2-4.8); Alkaline Phosphatase 56 U/L (46-116); Anion Gap 12 (5-15); Aspartate Aminotransferase 27 U/L (13-40); BUN/Creatinine Ratio 10.6 (10.0-20.0); Blood Urea Nitrogen 12 mg/dL (9-23); Calcium 9.8 mg/dL (8.7-10.4); Carbon Dioxide 28 mmol/L (20-31); Chloride 98 mmol/L (98-107); Potassium 3.5 mmol/L (3.5-5.1); Sodium 138 mmol/L (136-145); Total Protein 7.4 g/dL (5.7-8.2)
[2024-12-17 08:02] LABS: Alanine Aminotransferase < 9 U/L (7-40); Bilirubin, Total 0.9 mg/dL (0.2-1.0); Glucose 129 mg/dL (74-106)
[2024-12-17 08:03] LABS: Basophils # (auto) 0 10 ^3/uL (0-0.2); Basophils % (auto) 0.4 % (0.0-2.0); Hematocrit 28.2 % (36.0-46.0); Lymphocytes # (auto) 1.1 10 ^3/uL (0.4-5.4); Lymphocytes % (auto) 9.6 % (10.0-50.0); Mean Corpuscular Hemoglobin 33.5 pg (28.0-32.0); Mean Corpuscular Hgb Conc. 32.5 g/dL (32.0-36.0); Neutrophils % (auto) 88.3 % (37.0-80.0); Platelet Count (auto) 281 10^3/uL (140-450); Red Blood Cells 2.74 10^6/uL (4.0-5.20); Red Cell Distribution Width 16.2 % (11.8-14.3)
[2024-12-17 08:06] LABS: INR 1.21 (0.9-1.15); Partial Thromboplastin Time 30.1 SEC (24.5-34.5); Prothrombin Time 12.6 sec (9.3-11.8)
[2024-12-17 09:14] LABS: COVID19 ANTIGEN SOFIA FIA NEGATIVE (NEGATIVE)
[2024-12-17 09:15] LABS: Rapid Influenza A Negative (Negative); Rapid Influenza B Negative (Negative)
[2024-12-17] MEDS: ENOXAPARIN SOD 100 MG/1 ML SYRINGE SC SCH (10:00)
[2024-12-17] MEDS ORDERED: APIXABAN 5 MG TAB PO SCH (10:00)
[2024-12-17] MEDS: LOSARTAN POTASSIUM 50 MG TAB PO SCH (10:46)
[2024-12-17] MEDS: methylPREDNISolone SOD SUCC 40 MG/ML VL IV SCH (10:46)
[2024-12-17] MEDS: AMIODARONE HCL 200 MG TAB PO SCH (10:46)
[2024-12-17] MEDS: PRAZOSIN HCL 1 MG CAP PO SCH (10:47)
[2024-12-17] MEDS: MORPHINE SULFATE INJ 2 MG/ml SYRG IV PRN (11:42)
--- NOTE | 2024-12-17 18:27 | DVHPNRES ---
Progress Note Date Seen: Dec 17, 2024 Resident Creating Document: COCO SHAH RESIDENT Has the PT tested + for MRSA If YES, has PT been informed?: No Medical Necessity Reason Pt with a Central, PICC or Fol: No Subjective Review of Systems 54-year-old female with a history of COPD, she uses 4 L of oxygen at home, heart failure preserved ejection fraction, endometrial cancer 20 years ago status post hysterectomy, aortic insufficiency,paroxysmal atrial fibrillation, hypertension, dyslipidemia, rheumatoid arthritis fibromyalgia and chronic kidney disease stage IIIB who presented to the hospital with a chief complaint of shortness of breaths that started 5 days ago before admission progressively getting worse , functional class 4. she also reports chest pain, nausea, coughing, fatigue. In the emergency department the patient's oxygen saturation was in 80s for which the patient was started on CPAP and then placed on nasal cannula 5 L, chest x- ray showed pulmonary vascular congestion likely related with a CHF exacerbation, BNP levels were above 200. ABG was unremarkable. Troponins were negative, EKG sinus rhythm, D-dimer 0.8. Cardiology was consulted, pending. Review of systems: Constitutional: No: Fever, Chills, Sweats, Weakness, Malaise, Other Eyes: No: Pain, Vision change, Conjunctivae inflammation, Eyelid inflammation, Other, Redness ENT: No: Ear pain, Ear discharge, Nose pain, Nose discharge, Nose congestion, Mouth pain, Mouth swelling, Throat pain, Throat swelling, Other Respiratory: Cough present, Shortness of breath, No Wheezing, Hemoptysis, Pleuritic Pain, Sputum, Wheezing, Other Cardiovascular: No: Chest Pain, Palpitations, Orthopnea, Paroxysmal Noc. Dyspnea, Edema, Lt Headedness, Other Gastrointestinal: No: Nausea, Vomiting, Abdominal Pain, Diarrhea, Constipation, Melena, Hematochezia, Other Musculoskeletal: No: other, neck pain, shoulder pain, arm pain, back pain, hand pain, leg pain, foot pain Neurological:; No: Weakness, Numbness, Incoordination, Change in speech, Confusion, Seizures Patient reports: No new complaints Changes from previous H/P or p: No Changes Objective vital signs Vital Sign Date Time Temp Pulse Resp B/P (MAP) Pulse Ox O2 Delivery O2 Flow Rate FiO2 12/17/24 18:16 78 16 140/71 12/17/24 18:00 93 Nasal Cannula* 4 36 12/17/24 16:00 97.8 97.8 medications Current Medications Medications Dose Ordered Sig/Bárbara Route Start Time Stop Time Status Last Admin Dose Admin Furosemide 40 mg BIDD IV 12/17/24 06:00 12/17/24 18:16 40 MG Levalbuterol HCl 1.25 mg Q6HR NEB 12/17/24 06:00 12/17/24 18:03 1.25 MG Ipratropium [place] 0.5 mg Q6HWA NEB 12/17/24 06:00 12/17/24 18:03 0.5 MG Amiodarone HCl 200 mg DAILY PO 12/17/24 10:00 12/17/24 10:46 200 MG Losartan Potassium 100 mg DAILY PO 12/17/24 10:00 12/17/24 10:46 100 MG Sertraline HCl 100 mg DAILY PO 12/18/24 10:00 Prazosin HCl 2 mg Q12HR PO 12/17/24 10:00 12/17/24 10:47 2 MG Atorvastatin Calcium 80 mg HS PO 12/17/24 22:00 Nifedipine 90 mg DAILY PO 12/18/24 10:00 Enoxaparin Sodium 100 mg Q12HR SC 12/17/24 10:00 12/17/24 10:00 100 MG Morphine Sulfate 1 mg Q4HP PRN IV 12/17/24 03:15 12/17/24 17:25 1 MG Levofloxacin/ Dextrose 100 ml @ 100 mls/hr DAILY IV 12/18/24 10:00 Methylprednisolone Sodium Succinate 40 mg BID IV 12/17/24 10:00 12/17/24 10:46 40 MG Examination General Appearance: Obese, Alert, Oriented X3, Cooperative, in moderate respiratory distress HEENT: Atraumatic, PERRLA, EOMI, Mucous membrane moist/pink Respiratory: Bilateral diffuse crackles, no wheezing, nasal cannula 5 L Cardiovascular: Regular rate, Normal S1, Normal S2, No murmurs, no chest wall tenderness Abdominal: Normal bowel sounds, Soft, No tenderness, No hepatospenomegaly, No masses Extremities: No clubbing, No cyanosis, No edema, Normal pulses, No tenderness/swelling Skin: No rashes, No breakdown, No significant lesion Neuro: Normal gait, Normal speech, Strength at 5/5 X4 ext, Normal tone, Sensation intact, Cranial nerves 3-12 NL, Reflexes 2+ Psych/Mental Status: Mental status NL, Mood NL laboratory and microbiology Laboratory Tests 12/17/24 07:19 Test 12/17/24 07:19 Range/Units Serum Glucose 129 H 74-106 mg/dL Problem List/Assessment/Plan Problem List/Assessment/Plan Acute on chronic hypoxic respiratory failure, likely due to heart failure exacerbation/COPD exacerbation, rule out community-acquired pneumonia Gram- positive Gram-negative Ejection fraction 55-60% Aortic insufficiency -Furosemide 40 mg b.i.d. IV - Ipratropium 0.5 - levalbuterol 1.25 - Nasal cannula 5 L - Methylprednisolone 40 b.i.d. IV - Levofloxacin IV daily -cardiology consult, Dr. Miller. -Engel catheter -strict I&Os Paroxysmal atrial fibrillation , currently on sinus rhythm -Amiodarone 200 daily p.o. -quality assurance monitor chassis Hypertension -Losartan 100 mg daily p.o. - Nifedipine 90 mg daily p.o. History of rheumatoid arthritis -currently on remission History of fibromyalgia History of endometrial cancer status post hysterectomy 20 years ago History of depression History of anxiety -continue home medications Type 2 obesity, BMI 37.1 Lifestyle modification counseling and dietary habits counseling Case discussed with Dr. Champagne Goals of care discussed with the patient for 31 minutes Code status: Full code Plan discussed with: Patient My Orders My Orders Orders - COCO SHAH Procedure Category Date Status Time * Cardiology Consult CONS 12/17/24 Transmitted 11:07 Insert Midline ORDERS 12/17/24 Transmitted 11:07 Date of Service: Dec 17, 2024 Billing Provider: ASHWIN CHAMPAGNE MD Common Visit Codes: [id number] INP/OBS CARE(HIGH) COCO SHAH RESIDENT Dec 17, 2024 18:27 ASHWIN CHAMPAGNE MD Dec 21, 2024 15:48
--- NOTE | 2024-12-17 18:31 | DVHSR ---
APPROVED REPORT EXAM: LIMITED Two-dimensional and M-mode echocardiogram with Doppler and color Doppler. Blood Pressure: 136/62 mmHg INDICATION Heart Failure RISK FACTORS Obesity: Height: 5' 5", Weight: 222 DIMENSIONS LVDd4.9 (3.8-5.7cm)LA (2D)4.2 (1.9-4.0cm)Aortic Root3.3 (2.0-3.7cm) LVDs3.5 (2.5-4.0cm)LA (MM) (1.9-4.0cm)Aortic Cusp Exc1.7 (1.5-2.0cm) EF (%) 55.0 (55-70%)Rt. Atrium3.5 (1.9-4.0cm)Asc. Aorta cm IVSd0.9 (0.7-1.1cm)RV (D) (1.8-2.4cm) PWd1.0 (0.7-1.1cm) Mitral Valve MitralMitral Stenosis E wave1.60m/sMV Mean GR.mmHg A wave1.20m/sMV Peak GR.mmHg E/A ratio1.32D MVAcm2 Aortic Valve Aortic ValveAortic Stenosis V10.80m/Rita Mean GR.5mmHg V21.60m/Rita Peak GR.11mmHg LVOT Diameter2.1 (1.8-2.4cm)Doppler AVA1.73cm2 AI P 1/2 Xerm346.19ms Pulmonic Valve V20.60m/s Tricuspid Valve TR Velocity2.10m/s [id number] Other Information Quality : Technically LimitedRhythm : Technically limited study due to large breast implants Conclusion TDS. Normal biventricular size and systolic function. LVEF 55-60%. Normal wall motion. Normal diastolic fu nction. Mild MR. Moderate AI. Normal IVC. No pericardial effusion.
[2024-12-17] MEDS: ATORVASTATIN 20 MG TAB PO SCH (21:54)
[2024-12-18] VITALS (17 sets, daily range): BP systolic 109–166; BP diastolic 53–91; PULSE 67–90; RESP 16–20; TEMP 97.4–98.1; O2SAT 92–100
[2024-12-18 06:20] LABS: Basophils # (auto) 0.1 10 ^3/uL (0-0.2); Basophils % (auto) 0.5 % (0.0-2.0); Eosinophils # (auto) 0.1 10 ^3/uL (0-0.8); Eosinophils % (auto) 0.5 % (0.0-7.0); Hematocrit 28.5 % (36.0-46.0); Hemoglobin 9.5 g/dL (12.2-16.2); Lymphocytes # (auto) 1.2 10 ^3/uL (0.4-5.4); Lymphocytes % (auto) 10.5 % (10.0-50.0); Mean Corpuscular Hemoglobin 34.6 pg (28.0-32.0); Mean Corpuscular Hgb Conc. 33.4 g/dL (32.0-36.0); Mean Corpuscular Volume 103.7 fL (80.0-100.0); Monocytes # (auto) 0.4 10 ^3/uL (0-1.3); Neutrophils # (auto) 9.4 10 ^3/uL (1.6-8.6); Neutrophils % (auto) 84.5 % (37.0-80.0); Nucleated Red Blood Cells % 0.1 %; Platelet Count (auto) 347 10^3/uL (140-450); Red Blood Cells 2.75 10^6/uL (4.0-5.20); White Blood Cell 11.1 10^3/uL (4.4-10.8)
--- NOTE | 2024-12-18 09:29 | DVH ---
CHEST RADIOGRAPH Indication: chf Technique: Single frontal view of the chest was obtained COMPARISON: XY CHEST XRAY 1 VIEW on DOS: 12/16/24, XY CHEST PORTABLE on DOS: 06/10/24 FINDINGS: Lines and Tubes: None Lungs: Diffuse increased interstitial prominence Pleura: No effusion. No pneumothorax. Cardiomediastinal contours: Unremarkable Bones: Unremarkable IMPRESSION: Possible mild pulmonary vascular congestion significantly improved.
[2024-12-18] MEDS: levoFLOXacin 500MG 100 ML IV SCH (10:48)
[2024-12-18] MEDS: SERTRALINE HCL 50 MG TAB PO SCH (10:51)
[2024-12-18] MEDS: NIFEdipine ER 30 MG TAB PO SCH (10:51)
[2024-12-18 11:15] LABS: Sodium 138 mmol/L (136-145)
[2024-12-18 11:16] LABS: Anion Gap 12 (5-15); Calcium 9.7 mg/dL (8.7-10.4); Carbon Dioxide 30 mmol/L (20-31); Chloride 96 mmol/L (98-107); Potassium 3.4 mmol/L (3.5-5.1)
[2024-12-18 11:21] LABS: BUN/Creatinine Ratio 14.2 (10.0-20.0); Blood Urea Nitrogen 22 mg/dL (9-23)
[2024-12-18 11:24] LABS: Glucose 131 mg/dL (74-106)
[2024-12-18] MEDS: HYDROcodone-ACET 10/325MG TAB PO ONE (11:48)
[2024-12-18] MEDS: POTASSIUM EFFERVESENT TAB 25 MEQ PO ONE (13:25)
[2024-12-18] MEDS: HYDROcodone-ACET 10/325MG TAB PO PRN (18:01)
--- NOTE | 2024-12-18 18:45 | DVHPNRES ---
Progress Note Date Seen: Dec 18, 2024 Resident Creating Document: COCO SHAH RESIDENT Has the PT tested + for MRSA If YES, has PT been informed?: No Medical Necessity Reason Pt with a Central, PICC or Fol: No Subjective Review of Systems 54-year-old female with a history of COPD, she uses 4 L of oxygen at home, heart failure preserved ejection fraction, endometrial cancer 20 years ago status post hysterectomy, aortic insufficiency,paroxysmal atrial fibrillation, hypertension, dyslipidemia, rheumatoid arthritis fibromyalgia and chronic kidney disease stage IIIB who presented to the hospital with a chief complaint of shortness of breaths that started 5 days ago before admission progressively getting worse , functional class 4. she also reports chest pain, nausea, coughing, fatigue. In the emergency department the patient's oxygen saturation was in 80s for which the patient was started on CPAP and then placed on nasal cannula 5 L, chest x- ray showed pulmonary vascular congestion likely related with a CHF exacerbation, BNP levels were above 200. Patient was examined at bedside, she reports improvement, still having back pain for which the patient will resume all her home medication [place] 10. Chest x-rays today show much improvement. Patient is still on Engel catheter with a strict I&Os Lasix was decreased until 40 IV daily Continue therapeutic Lovenox. Review of systems: Constitutional: No: Fever, Chills, Sweats, Weakness, Malaise, Other Eyes: No: Pain, Vision change, Conjunctivae inflammation, Eyelid inflammation, Other, Redness ENT: No: Ear pain, Ear discharge, Nose pain, Nose discharge, Nose congestion, Mouth pain, Mouth swelling, Throat pain, Throat swelling, Other Respiratory: Cough present, Shortness of breath, No Wheezing, Hemoptysis, Pleuritic Pain, Sputum, Wheezing, Other Cardiovascular: No: Chest Pain, Palpitations, Orthopnea, Paroxysmal Noc. Dyspnea, Edema, Lt Headedness, Other Gastrointestinal: No: Nausea, Vomiting, Abdominal Pain, Diarrhea, Constipation, Melena, Hematochezia, Other Musculoskeletal: No: other, neck pain, shoulder pain, arm pain, back pain, hand pain, leg pain, foot pain Neurological:; No: Weakness, Numbness, Incoordination, Change in speech, Confusion, Seizures Patient reports: Feels better Objective vital signs Vital Sign Date Time Temp Pulse Resp B/P (MAP) Pulse Ox O2 Delivery O2 Flow Rate FiO2 12/18/24 18:41 83 16 100 12/18/24 18:35 Nasal Cannula* 2 28 12/18/24 18:00 117/66 12/18/24 17:00 97.4 97.4 Total Intake and Output 12/17/24 12/17/24 12/18/24 15:00 23:00 07:00 Intake Total 800 ml Output Total 1500 ml 2000 ml Balance -1500 ml -1200 ml medications Current Medications Medications Dose Ordered Sig/Bárbara Route Start Time Stop Time Status Last Admin Dose Admin Levalbuterol HCl 1.25 mg Q6HR NEB 12/17/24 06:00 12/18/24 18:35 1.25 MG Ipratropium [place] 0.5 mg Q6HWA NEB 12/17/24 06:00 12/18/24 18:35 0.5 MG Amiodarone HCl 200 mg DAILY PO 12/17/24 10:00 12/18/24 10:49 200 MG Losartan Potassium 100 mg DAILY PO 12/17/24 10:00 12/18/24 10:50 100 MG Sertraline HCl 100 mg DAILY PO 12/18/24 10:00 12/18/24 10:51 100 MG Prazosin HCl 2 mg Q12HR PO 12/17/24 10:00 12/18/24 10:51 2 MG Atorvastatin Calcium 80 mg HS PO 12/17/24 22:00 12/17/24 21:54 80 MG Nifedipine 90 mg DAILY PO 12/18/24 10:00 12/18/24 10:51 90 MG Morphine Sulfate 1 mg Q4HP PRN IV 12/17/24 03:15 12/18/24 13:41 1 MG Levofloxacin/ Dextrose 100 ml @ 100 mls/hr DAILY IV 12/18/24 10:00 12/18/24 10:48 100 MLS/HR Methylprednisolone Sodium Succinate 40 mg BID IV 12/17/24 10:00 12/17/24 21:53 40 MG Enoxaparin Sodium 40 mg DAILY SC 12/19/24 10:00 Acetaminophen/ Hydrocodone Bitart 1 tab Q4HP PRN PO 12/18/24 10:45 12/18/24 18:01 1 TAB Diphenhydramine HCl 25 mg Q4HP PRN IV 12/18/24 16:15 Furosemide 40 mg DAILY IV 12/19/24 10:00 UNV Examination Examination General Appearance: Alert, Oriented X3, Cooperative, No acute distress Respiratory: rales bilaterally , no wheezing Cardiovascular: Regular rate, Normal S1, Normal S2 Abdominal: Normal bowel sounds Extremities: No cyanosis, No edema, Normal pulses, No tenderness/swelling Skin: No rashes, No breakdown Neuro: Normal gait, Normal speech, Strength at 5/5 X4 ext, Normal tone, Sensation intact, Cranial nerves 3-12 NL, Reflexes 2+ Psych/Mental Status: Mental status NL, Mood NL laboratory and microbiology Laboratory Tests 12/18/24 10:40 12/18/24 05:51 Test 12/18/24 10:40 Range/Units Serum Glucose 131 H 74-106 mg/dL Microbiology Date/Time Source Procedure Growth Status 12/17/24 15:30 Nose MRSA Screen - Final Complete Problem List/Assessment/Plan Problem List/Assessment/Plan Acute on chronic hypoxic respiratory failure, likely due to heart failure exacerbation/COPD exacerbation, rule out community-acquired pneumonia Gram- positive Gram-negative Ejection fraction 55-60% Aortic insufficiency -Furosemide 40 mg b.i.d. IV - Ipratropium 0.5 - levalbuterol 1.25 - Nasal cannula 5 L - Methylprednisolone 40 b.i.d. IV - Levofloxacin IV daily -Engel catheter -strict I&Os Paroxysmal atrial fibrillation , currently on sinus rhythm -Amiodarone 200 daily p.o. -shelter monitor -therapeutic lovenox Hypertension -Losartan 100 mg daily p.o. - Nifedipine 90 mg daily p.o. History of rheumatoid arthritis -currently on remission History of fibromyalgia History of endometrial cancer status post hysterectomy 20 years ago History of depression History of anxiety -continue home medications Type 2 obesity, BMI 37.1 Lifestyle modification counseling and dietary habits counseling Case discussed with Dr. Kunz Goals of care discussed with the patient for 31 minutes Code status: Full code Plan discussed with: Patient My Orders My Orders Orders - COCO SHAH RESIDENT Procedure Category Date Status Time Strict I & O DEANDRA 12/17/24 In Process 18:57 Chest Portable XY 12/18/24 Resulted 04:00 Enoxaparin Sodium PHA 12/19/24 In Process (Lovenox) 10:00 Hydrocodone-Acet PHA 12/18/24 In Process 10/325mg Tab ([place] 10:45 Diphenhdramine PHA 12/18/24 In Process Injection (Benadryl 16:15 Furosemide Injection PHA 12/19/24 Logged (Lasix Injection) 10:00 Date of Service: Dec 18, 2024 Billing Provider: ASHWIN KUNZ MD Common Visit Codes: [id number] INP/OBS CARE(HIGH) COCO SHAH RESIDENT Dec 18, 2024 18:45 ASHWIN KUNZ MD Dec 21, 2024 16:05
[2024-12-18] MEDS: ENOXAPARIN SOD 100 MG/1 ML SYRINGE SC SCH (21:19)
[2024-12-19] VITALS (17 sets, daily range): BP systolic 115–148; BP diastolic 60–116; PULSE 84–142; RESP 12–19; TEMP 97.1–99.1; O2SAT 92–100
[2024-12-19 08:12] LABS: Basophils # (auto) 0 10 ^3/uL (0-0.2); Basophils % (auto) 0.5 % (0.0-2.0); Eosinophils # (auto) 0 10 ^3/uL (0-0.8); Eosinophils % (auto) 0.3 % (0.0-7.0); Hematocrit 27.4 % (36.0-46.0); Hemoglobin 9.3 g/dL (12.2-16.2); Lymphocytes % (auto) 21.7 % (10.0-50.0); Mean Corpuscular Hgb Conc. 33.9 g/dL (32.0-36.0); Nucleated Red Blood Cells % 0.1 %
[2024-12-19 08:14] LABS: Lymphocytes # (auto) 1.9 10 ^3/uL (0.4-5.4); Mean Corpuscular Hemoglobin 34.6 pg (28.0-32.0); Mean Corpuscular Volume 102.1 fL (80.0-100.0); Monocytes # (auto) 0.6 10 ^3/uL (0-1.3); Monocytes % (auto) 7.5 % (0.0-12.0); Neutrophils # (auto) 6.1 10 ^3/uL (1.6-8.6); Platelet Count (auto) 319 10^3/uL (140-450); Red Blood Cells 2.68 10^6/uL (4.0-5.20); Red Cell Distribution Width 16.3 % (11.8-14.3); White Blood Cell 8.7 10^3/uL (4.4-10.8)
[2024-12-19 08:33] LABS: Anion Gap 12 (5-15); Potassium 3.6 mmol/L (3.5-5.1); Sodium 137 mmol/L (136-145)
[2024-12-19 08:35] LABS: Calcium 9.6 mg/dL (8.7-10.4)
[2024-12-19 08:39] LABS: Glucose 95 mg/dL (74-106)
[2024-12-19 08:40] LABS: BUN/Creatinine Ratio 14.3 (10.0-20.0); Blood Urea Nitrogen 26 mg/dL (9-23); Carbon Dioxide 31 mmol/L (20-31); Chloride 94 mmol/L (98-107)
[2024-12-19] MEDS: FUROSEMIDE 40 MG/4 ML VIAL IV SCH (09:38)
[2024-12-19] MEDS ORDERED: ENOXAPARIN SOD 40 MG/0.4 ML SYRINGE SC SCH (10:00)
[2024-12-19] MEDS ORDERED: METOPROLOL SUCCINATE XL 50 MG TAB PO ONE (11:15)
--- NOTE | 2024-12-19 12:38 | DVH ---
CHEST RADIOGRAPH Indication: chf Technique: Single frontal view of the chest was obtained COMPARISON: XY CHEST PORTABLE on DOS: 12/18/24, XY CHEST XRAY 1 VIEW on DOS: 12/16/24, XY CHEST PORTABL E on DOS: 06/10/24 FINDINGS: Lines and Tubes: None Lungs: Clear Pleura: No effusion. No pneumothorax. Cardiomediastinal contours: Unremarkable Bones: Unremarkable IMPRESSION: Significantly improved aeration of the lungs.
[2024-12-19] MEDS: DIGOXIN (250MCG/ML) 2 ML AMPULE IV ONE (13:30)
[2024-12-19] MEDS: METOPROLOL TARTRATE 1MG/1ML-5ML VIAL IV ONE (14:27)
[2024-12-19] MEDS ORDERED: DIGOXIN (250MCG/ML) 2 ML AMPULE IV ONE (16:00)
--- NOTE | 2024-12-19 16:03 | DVHPNRES ---
Progress Note Date Seen: Dec 19, 2024 Resident Creating Document: COCO SHAH RESIDENT Has the PT tested + for MRSA If YES, has PT been informed?: No Medical Necessity Reason Pt with a Central, PICC or Fol: No The following are medically ne: Davison Catheter Reason for davison catheter: Strict I&O Subjective Review of Systems Patient was examined at bedside ,she reports having still some shortness of breath but feels better than yesterday. Losartan was stopped due to [place]. Patient was started on digoxin and metoprolol, we will continue monitorinf HR , now is >130 RVR Afib. Lasix was held. Patient reports: No new complaints Changes from previous H/P or p: No Changes Review of Systems: HEENT:Normal, CVS:Normal, RESPIRATORY:Abnormal, GI:Normal, :Normal, MSK:Normal, NEURO:Normal Objective vital signs Vital Sign Date Time Temp Pulse Resp B/P (MAP) Pulse Ox O2 Delivery O2 Flow Rate FiO2 12/19/24 14:27 148 124/83 12/19/24 13:56 18 12/19/24 13:21 100 12/19/24 13:13 Nasal Cannula 3.0 12/19/24 13:13 32 12/19/24 13:00 97.5 97.5 Total Intake and Output 12/18/24 12/18/24 12/19/24 15:00 23:00 07:00 Intake Total 100 ml 700 ml 440 ml Output Total 950 ml 600 ml Balance 100 ml -250 ml -160 ml medications Current Medications Medications Dose Ordered Sig/Bárbara Route Start Time Stop Time Status Last Admin Dose Admin Levalbuterol HCl 1.25 mg Q6HR NEB 12/17/24 06:00 12/19/24 13:13 1.25 MG Ipratropium [place] 0.5 mg Q6HWA NEB 12/17/24 06:00 12/19/24 13:13 0.5 MG Amiodarone HCl 200 mg DAILY PO 12/17/24 10:00 12/19/24 09:40 200 MG Sertraline HCl 100 mg DAILY PO 12/18/24 10:00 12/19/24 09:38 100 MG Prazosin HCl 2 mg Q12HR PO 12/17/24 10:00 12/19/24 09:47 2 MG Atorvastatin Calcium 80 mg HS PO 12/17/24 22:00 12/18/24 21:17 80 MG Nifedipine 90 mg DAILY PO 12/18/24 10:00 12/19/24 09:40 90 MG Morphine Sulfate 1 mg Q4HP PRN IV 12/17/24 03:15 12/19/24 13:26 1 MG Levofloxacin/ Dextrose 100 ml @ 100 mls/hr DAILY IV 12/18/24 10:00 12/19/24 09:38 100 MLS/HR Methylprednisolone Sodium Succinate 40 mg BID IV 12/17/24 10:00 12/19/24 09:39 40 MG Acetaminophen/ Hydrocodone Bitart 1 tab Q4HP PRN PO 12/18/24 10:45 12/19/24 02:19 1 TAB Diphenhydramine HCl 25 mg Q4HP PRN IV 12/18/24 16:15 Furosemide 40 mg DAILY IV 12/19/24 10:00 12/19/24 09:38 40 MG Enoxaparin Sodium 100 mg Q12HR SC 12/18/24 22:00 12/19/24 09:41 100 MG Digoxin 0.125 mg MWF PO 12/21/24 10:00 Examination: GENERAL:Normal, HEENT:Normal, NECK:Normal, LUNGS:Normal, CVS:Abnormal, ABDOMEN:Normal, MSK:Normal, SKIN:Normal, NEURO:Normal, :Normal laboratory and microbiology Laboratory Tests 12/19/24 06:02 Test 12/19/24 06:02 Range/Units Serum Glucose 95 74-106 mg/dL Microbiology Date/Time Source Procedure Growth Status 12/17/24 15:30 Nose MRSA Screen - Final Complete Labs and/or images reviewed: Labs reviewed by me, Image(s) reviewed by me Problem List/Assessment/Plan Problem List/Assessment/Plan Acute on chronic hypoxic respiratory failure, likely due to heart failure exacerbation/COPD exacerbation, rule out community-acquired pneumonia Gram- positive Gram-negative Ejection fraction 55-60% Aortic insufficiency, MODERATE - Ipratropium 0.5 - levalbuterol 1.25 - Nasal cannula 3 L - Methylprednisolone 40 b.i.d. IV - Levofloxacin IV daily - Davison catheter - strict I&Os - digoxin - metoprolol Paroxysmal atrial fibrillation , currently on sinus rhythm -Amiodarone 200 daily p.o. -school bus monitor - therapeutic lovenox - metoprolol Hypertension - Nifedipine 90 mg daily p.o. History of rheumatoid arthritis -currently on remission History of fibromyalgia History of endometrial cancer status post hysterectomy 20 years ago History of depression History of anxiety -continue home medications Type 2 obesity, BMI 37.1 Lifestyle modification counseling and dietary habits counseling Case discussed with Dr. Heath Goals of care discussed with the patient for 31 minutes Code status: Full code Plan discussed with: Patient My Orders My Orders Orders - COCO SHAH RESIDENT Procedure Category Date Status Time Diphenhdramine PHA 12/18/24 In Process Injection (Benadryl 16:15 Furosemide Injection PHA 12/19/24 In Process (Lasix Injection) 10:00 Enoxaparin Sodium PHA 12/18/24 In Process (Lovenox) 22:00 Chest Portable XY 12/19/24 Resulted 11:14 Date of Service: Dec 19, 2024 Billing Provider: CHAO HEATH MD Common Visit Codes: [id number] INP/OBS CARE(HIGH) COCO SHAH RESIDENT Dec 19, 2024 16:03 CHOA HEATH MD Dec 21, 2024 14:21
[2024-12-20] VITALS (18 sets, daily range): BP systolic 0–154; BP diastolic 51–76; PULSE 67–155; RESP 16–19; TEMP 97.9–98.6; O2SAT 93–100
[2024-12-20 06:57] LABS: Basophils # (auto) 0 10 ^3/uL (0-0.2); Basophils % (auto) 0.3 % (0.0-2.0); Eosinophils # (auto) 0 10 ^3/uL (0-0.8); Hematocrit 29.1 % (36.0-46.0); Hemoglobin 9.8 g/dL (12.2-16.2); Lymphocytes # (auto) 0.9 10 ^3/uL (0.4-5.4); Lymphocytes % (auto) 11.2 % (10.0-50.0); Mean Corpuscular Hgb Conc. 33.6 g/dL (32.0-36.0); Mean Corpuscular Volume 101.2 fL (80.0-100.0); Monocytes # (auto) 0.4 10 ^3/uL (0-1.3); Monocytes % (auto) 4.4 % (0.0-12.0); Neutrophils # (auto) 6.9 10 ^3/uL (1.6-8.6); Neutrophils % (auto) 84.1 % (37.0-80.0); Platelet Count (auto) 364 10^3/uL (140-450); Red Blood Cells 2.87 10^6/uL (4.0-5.20); Red Cell Distribution Width 15.7 % (11.8-14.3); White Blood Cell 8.2 10^3/uL (4.4-10.8)
[2024-12-20 07:08] LABS: Anion Gap 12 (5-15); Carbon Dioxide 30 mmol/L (20-31); Potassium 3.8 mmol/L (3.5-5.1)
[2024-12-20 07:10] LABS: Calcium 10.7 mg/dL (8.7-10.4); Chloride 93 mmol/L (98-107); Sodium 135 mmol/L (136-145)
[2024-12-20 07:15] LABS: BUN/Creatinine Ratio 14.9 (10.0-20.0)
[2024-12-20 07:16] LABS: Blood Urea Nitrogen 27 mg/dL (9-23); Glucose 138 mg/dL (74-106)
[2024-12-20] MEDS: METOPROLOL TARTRATE 1MG/1ML-5ML VIAL IV ONE (09:22)
[2024-12-20] MEDS: PANTOPRAZOLE 40 MG TAB PO ONE (09:23)
[2024-12-20] MEDS: SUCRALFATE 1 GM/10 ML ORAL SUSP PO ONE (09:47)
[2024-12-20] MEDS ORDERED: METOPROLOL SUCCINATE XL 50 MG TAB PO SCH (10:00)
--- NOTE | 2024-12-20 16:31 | DVHPNRES ---
Progress Note Date Seen: Dec 20, 2024 Resident Creating Document: SAWYER BURKETT RESIDENT Has the PT tested + for MRSA If YES, has PT been informed?: No Medical Necessity Reason Pt with a Central, PICC or Fol: No The following are medically ne: Davison Catheter Reason for davison catheter: Strict I&O Subjective Review of Systems Patient seen and examined with the bedside Patient reported of right-sided headache that has been going for about 2 days and she experiences photophobia, reported history of migraine Patient is on baseline oxygen 3 liters/minute In the morning today patient had a run of atrial fibrillation with RVR following which she was given metoprolol 5 mg IV. Patient will be started on metoprolol succinate 50 mg b.i.d. today and digoxin 0.125 mcg Saturday and Saturday Objective vital signs Vital Sign Date Time Temp Pulse Resp B/P (MAP) Pulse Ox O2 Delivery O2 Flow Rate FiO2 12/20/24 13:47 98.0 87 18 129/58 (81) 96 98.0 12/20/24 11:46 Nasal Cannula 2.0 12/20/24 11:46 28 Total Intake and Output 12/19/24 12/19/24 12/20/24 15:00 23:00 07:00 Intake Total 100 ml 1000 ml 800 ml Output Total 1600 ml 600 ml Balance 100 ml -600 ml 200 ml medications Current Medications Medications Dose Ordered Sig/Bárbara Route Start Time Stop Time Status Last Admin Dose Admin Levalbuterol HCl 1.25 mg Q6HR NEB 12/17/24 06:00 12/20/24 11:46 1.25 MG Ipratropium [place] 0.5 mg Q6HWA NEB 12/17/24 06:00 12/20/24 11:46 0.5 MG Amiodarone HCl 200 mg DAILY PO 12/17/24 10:00 12/20/24 09:23 200 MG Sertraline HCl 100 mg DAILY PO 12/18/24 10:00 12/20/24 09:23 100 MG Prazosin HCl 2 mg Q12HR PO 12/17/24 10:00 12/19/24 21:52 2 MG Atorvastatin Calcium 80 mg HS PO 12/17/24 22:00 12/19/24 21:51 80 MG Nifedipine 90 mg DAILY PO 12/18/24 10:00 12/19/24 09:40 90 MG Morphine Sulfate 1 mg Q4HP PRN IV 12/17/24 03:15 12/20/24 09:24 1 MG Levofloxacin/ Dextrose 100 ml @ 100 mls/hr DAILY IV 12/18/24 10:00 12/20/24 09:23 100 MLS/HR Methylprednisolone Sodium Succinate 40 mg BID IV 12/17/24 10:00 12/20/24 23:00 12/20/24 09:23 40 MG Acetaminophen/ Hydrocodone Bitart 1 tab Q4HP PRN PO 12/18/24 10:45 12/20/24 04:01 1 TAB Diphenhydramine HCl 25 mg Q4HP PRN IV 12/18/24 16:15 Enoxaparin Sodium 100 mg Q12HR SC 12/18/24 22:00 12/20/24 09:24 100 MG Digoxin 0.125 mg MWF PO 12/21/24 10:00 Acetaminophen 650 mg Q6HP PRN PO 12/20/24 03:45 Pantoprazole Sodium 40 mg DAILY@0600 PO 12/21/24 06:00 Sucralfate 1 gm BID@0600,2200 PO 12/20/24 22:00 Metoprolol Succinate 50 mg BID PO 12/20/24 22:00 UNV Examination Constitutional: Patient was alert and oriented to time, place and person and does not appear to be in acute respiratory distress Gen - no pallor, no icterus, no cyanosis, no clubbing, no LAD, no edema . Skin - Patients skin is warm and dry.. HEENT - normocephalic, atraumatic, moist mucous membranes. Neck - full ROM, no LAD, no JVD Pulmonary - B/L equal air entry, no crackles, no wheezing, no stridor. cardiovascular - normal S1,S2 heard. no murmurs heard. peripheral pulses normal radial 2+, pedal 2+. GI - soft abdomen with minimal diffuse tenderness to palpation. no hepatospleenomegaly. Bowel sounds normoactive Neurological - Bilateral upper extremity strength 5/5, bilateral lower extremity strength 4/5, no facial droop, normal speech, no tremor, no sensory deficiets. laboratory and microbiology Laboratory Tests 12/20/24 06:02 Test 12/20/24 06:02 Range/Units Serum Glucose 138 H 74-106 mg/dL Microbiology Date/Time Source Procedure Growth Status 12/17/24 15:30 Nose MRSA Screen - Final Complete Problem List/Assessment/Plan Problem List/Assessment/Plan Acute on chronic hypoxic respiratory failure, likely due to heart failure exacerbation/COPD exacerbation, rule out community-acquired pneumonia Gram- positive Gram-negative Ejection fraction 55-60% Aortic insufficiency, moderate - Ipratropium 0.5 - levalbuterol 1.25 - Nasal cannula 3 L - Methylprednisolone 40 b.i.d. IV - Levofloxacin IV daily - Davison catheter - strict I&Os - digoxin - metoprolol Paroxysmal atrial fibrillation , currently on sinus rhythm -Amiodarone 200 daily p.o. -laboratory monitor - therapeutic lovenox - metoprolol succinate 50 mg b.i.d. Hypertension - Nifedipine 90 mg daily p.o. History of rheumatoid arthritis -currently on remission History of fibromyalgia History of endometrial cancer status post hysterectomy 20 years ago History of depression History of anxiety -continue home medications Type 2 obesity, BMI 37.1 Lifestyle modification counseling and dietary habits counseling 12/20- patient is started on metoprolol succinate 50 mg b.i.d. , will be given digoxin 0.125 mcg Saturday as per Cardiology IV steroids stopped and the patient will be started on prednisone 40 mg q.d. tomorrow Telemonitor Shows was chosen in the heart rate and the patient will be monitored. Case discussed with Dr. Heath Goals of care discussed with the patient for 31 minutes Code status: Full code Plan discussed with: Patient My Orders My Orders Orders - SAWYER BURKETT RESIDENT Procedure Category Date Status Time Pantoprazole Tablet PHA 12/21/24 In Process (Protonix Tablet) 06:00 Sucralfate Susp PHA 12/20/24 In Process (Carafate Susp) 22:00 Pt Request For Service PT 12/20/24 Logged 14:06 Digoxin Injection PHA 12/20/24 Logged (Lanoxin Injection) 14:45 Metoprolol Xl PHA 12/20/24 Logged Succinate (Toprol Xl) 22:00 Dietary Evaluation Review Recommendations by RD: Dietary education by RD Comments: 1) Change 2g Na diet to cardiac diet 2) Refer to outpatient RD for weight management 3) F/u with pulmonolog and cardiology 4) Continue to monitor I&O, labs, and skin integrity Expected Outcomes/Goals: 1) appetite and labs to advance 2) f/u in 5 days Date of Service: Dec 20, 2024 Billing Provider: CHAO HEATH MD Common Visit Codes: [id number] INP/OBS CARE(HIGH) SAWYER BURKETT RESIDENT Dec 20, 2024 16:31 CHAO HEATH MD Dec 21, 2024 14:20
[2024-12-20] MEDS: DIGOXIN (250MCG/ML) 2 ML AMPULE IV ONE (17:14)
[2024-12-20] MEDS: ACETAMINOPHEN 325 MG TAB PO PRN (20:06)
[2024-12-20] MEDS: METOPROLOL SUCCINATE XL 50 MG TAB PO SCH (22:20)
[2024-12-20] MEDS: SUCRALFATE 1 GM/10 ML ORAL SUSP PO SCH (22:21)
[2024-12-21] VITALS (11 sets, daily range): BP systolic 119–161; BP diastolic 51–75; PULSE 66–96; RESP 16–18; TEMP 36.3; O2SAT 95–100
[2024-12-21] MEDS: diphenhdrAMINE HCL 50 MG/1 ML VL IV PRN (00:17)
[2024-12-21] MEDS: PANTOPRAZOLE 40 MG TAB PO SCH (05:19)
[2024-12-21 06:32] LABS: Basophils # (auto) 0.1 10 ^3/uL (0-0.2); Basophils % (auto) 0.7 % (0.0-2.0); Eosinophils # (auto) 0 10 ^3/uL (0-0.8); Hematocrit 27.9 % (36.0-46.0); Hemoglobin 9.4 g/dL (12.2-16.2); Lymphocytes % (auto) 10.9 % (10.0-50.0); Mean Corpuscular Hemoglobin 33.8 pg (28.0-32.0); Mean Corpuscular Hgb Conc. 33.5 g/dL (32.0-36.0); Monocytes # (auto) 0.3 10 ^3/uL (0-1.3); Monocytes % (auto) 3.3 % (0.0-12.0); Neutrophils # (auto) 7.5 10 ^3/uL (1.6-8.6); Neutrophils % (auto) 85.1 % (37.0-80.0); Platelet Count (auto) 315 10^3/uL (140-450); Red Blood Cells 2.77 10^6/uL (4.0-5.20); Red Cell Distribution Width 15.7 % (11.8-14.3); White Blood Cell 8.8 10^3/uL (4.4-10.8)
[2024-12-21 06:39] LABS: Anion Gap 6 (5-15); Potassium 4.8 mmol/L (3.5-5.1); Sodium 136 mmol/L (136-145)
[2024-12-21 06:40] LABS: Calcium 10.4 mg/dL (8.7-10.4)
[2024-12-21 06:45] LABS: BUN/Creatinine Ratio 18.6 (10.0-20.0)
[2024-12-21 06:46] LABS: Blood Urea Nitrogen 32 mg/dL (9-23); Carbon Dioxide 32 mmol/L (20-31); Chloride 98 mmol/L (98-107); Glucose 141 mg/dL (74-106)
[2024-12-21] MEDS: predniSONE 20 MG TAB PO SCH (10:24)
[2024-12-21] MEDS: DIGOXIN 0.125 MG TAB PO SCH (10:25)
[2024-12-21] MEDS ORDERED: DIGO1TAB48 PO (17:02)
[2024-12-21] MEDS ORDERED: LEVO500T91 PO (17:03)
--- NOTE | 2024-12-21 17:04 | DVHDSRES ---
Discharge Summary Date of Admission Resident Creating Document: COCO SHAH RESIDENT Dec 16, 2024 at 23:56 Date of Discharge: Dec 21, 2024 Labs/Diagnostic Data: Laboratory Results Test 12/21/24 05:53 12/18/24 11:38 12/17/24 08:30 12/17/24 07:19 White Blood Count 8.8 10^3/uL (4.4-10.8) Red Blood Count 2.77 10^6/uL (4.0-5.20) Hemoglobin 9.4 g/dL (12.2-16.2) Hematocrit 27.9 % (36.0-46.0) Mean Corpuscular Volume 101.0 fL (80.0-100.0) Mean Corpuscular Hemoglobin 33.8 pg (28.0-32.0) Mean Corpuscular Hemoglobin Concent 33.5 g/dL (32.0-36.0) Red Cell Distribution Width 15.7 % (11.8-14.3) Platelet Count 315 10^3/uL (140-450) Mean Platelet Volume 9.3 fL (6.9-10.8) Neutrophils (%) (Auto) 85.1 % (37.0-80.0) Lymphocytes (%) (Auto) 10.9 % (10.0-50.0) Monocytes (%) (Auto) 3.3 % (0.0-12.0) Eosinophils (%) (Auto) 0.0 % (0.0-7.0) Basophils (%) (Auto) 0.7 % (0.0-2.0) Neutrophils # (Auto) 7.5 10 ^3/uL (1.6-8.6) Lymphocytes # (Auto) 1.0 10 ^3/uL (0.4-5.4) Monocytes # (Auto) 0.3 10 ^3/uL (0-1.3) Eosinophils # (Auto) 0 10 ^3/uL (0-0.8) Basophils # (Auto) 0.1 10 ^3/uL (0-0.2) Nucleated Red Blood Cells 0.0 % Sodium Level 136 mmol/L (136-145) Potassium Level 4.8 mmol/L (3.5-5.1) Chloride Level 98 mmol/L (98-107) Carbon Dioxide Level 32 mmol/L (20-31) Anion Gap 6 (5-15) Blood Urea Nitrogen 32 mg/dL (9-23) Creatinine 1.72 mg/dL (0.550-1.02) Glomerular Filtration Rate Calc 35 mL/min (>90) BUN/Creatinine Ratio 18.6 (10.0-20.0) Serum Glucose 141 mg/dL (74-106) Calcium Level 10.4 mg/dL (8.7-10.4) Vitamin B12 Level 267 pg/mL (211-911) Influenza Type A Antigen Negative (Negative) Influenza Type B Antigen Negative (Negative) SARS-CoV-2 Antigen (Rapid) Negative (NEGATIVE) Prothrombin Time 12.6 sec (9.3-11.8) Prothrombin Time INR 1.21 (0.9-1.15) Activated Partial Thromboplast Time 30.1 SEC (24.5-34.5) Total Bilirubin 0.9 mg/dL (0.2-1.0) Aspartate Amino Transferase (AST) 27 U/L (13-40) Alanine Aminotransferase (ALT) < 9 U/L (7-40) Alkaline Phosphatase 56 U/L (46-116) Total Protein 7.4 g/dL (5.7-8.2) Albumin 4.7 g/dL (3.2-4.8) Beta HCG, Quantitative 3.1 mIU/mL (1.5-4.2) Test 12/16/24 22:55 12/16/24 21:55 12/16/24 21:37 12/16/24 20:44 Urine Color Light-yellow (Yellow) Urine Clarity Clear (Clear) Urine pH 6.0 (5.0-9.0) Urine Specific [place] 1.007 (1.001-1.035) Urine Protein Negative (Negative) Urine Ketones Negative (Negative) Urine Blood Negative /uL (Negative) Urine Nitrite Negative (Negative) Urine Bilirubin Negative (Negative) Urine Urobilinogen Normal mg/dL (Negative) Urine Leukocyte Esterase Negative /uL (Negative) Urine RBC 1 /hpf (0 - 4) Urine Microscopic WBC < 1 /HPF (0-5) Urine Squamous Epithelial Cells Few /hpf (<5) Urine Bacteria Few /hpf (None Seen) Urine Mucus Few (None Seen) Urine Glucose Normal mg/dL (Normal) Urine Opiates Screen Neg (NEGATIVE) Urine Fentanyl Screen Neg (NEGATIVE) Urine Barbiturates Screen Neg (NEGATIVE) Urine Phencyclidine Screen Neg (NEGATIVE) Urine Amphetamines Screen Neg (NEGATIVE) Urine Benzodiazepines Screen Pos (NEGATIVE) Urine Cocaine Screen Neg (NEGATIVE) Urine Cannabinoids Screen Pos (NEGATIVE) Troponin I High Sensitivity 3 ng/L (</=34) Blood Gas Specimen Type Arterial Blood Gas Sample Site Left radial Blood Gas Patient Temperature 37.0 Arterial Blood Date Drawn [id number] Arterial Blood pH 7.418 (7.350-7.450) Arterial Blood Partial Pressure CO2 37.2 mmHg (32.0-45.0) Arterial Blood Partial Pressure O2 87.0 mmHg (83.0-108.0) Arterial Blood HCO3 23.5 mmol/L (21.0-28.0) Arterial Blood Oxygen Saturation 95.7 % (94.0-98.0) Arterial Blood Base Excess -0.8 mmol/L (-2.0-3.0) Arterial Blood Oxyhemoglobin 94.4 % (94.0-98.0) Arterial Blood Carboxyhemoglobin 1.2 % (0.5-1.5) Arterial Blood Methemoglobin 0.2 % (0.0-1.5) Elfego Test Modified Blood Gas Total Hemoglobin 9.70 g/dL (12.0-16.0) Blood Gas Set Respiration Rate 14.0 Blood Gas Modality Mask - bipap FiO2 % 60.0 Blood Gas EPAP 5 Blood Gas IPAP 14 D-Dimer, Quantitative 0.80 mg/L FEU (0.0-0.49) Lactic Acid Level 1.0 mmol/L (0.4-2.0) B-Type Natriuretic Peptide 265.13 pg/mL (0-100) Other Laboratory Tests 12/21/24 05:53 Brief Hx & Hospital Course: 54-year-old female with a history of COPD, she uses 4 L of oxygen at home, heart failure preserved ejection fraction, endometrial cancer 20 years ago status post hysterectomy, aortic insufficiency,paroxysmal atrial fibrillation, hypertension, dyslipidemia, rheumatoid arthritis fibromyalgia and chronic kidney disease stage IIIB who presented to the hospital with a chief complaint of shortness of breaths that started 5 days ago before admission progressively getting worse , functional class 4. she also reports chest pain, nausea, coughing, fatigue. Hospital course: In the emergency department the patient's oxygen saturation was in 80s for which the patient was started on CPAP and then placed on nasal cannula 5 L, chest x- ray showed pulmonary vascular congestion likely related with a CHF exacerbation, BNP levels were above 200. ABG was unremarkable. Troponins were negative, EKG sinus rhythm, D-dimer 0.8.on next day after admission she reports improvement, still having back pain for which the patient will resume all her home medication [place] 10. Chest x-rays showed improvement.During hospitalization patient developed atrial fibrillation with RVR following which she was given metoprolol 50 mg IV. Operations or Procedures [place] [id number] Ph: [phone] DIAGNOSTIC IMAGING Diagnostic Imaging Report : [id number] Signed PATIENT: HATTIE LOUIS ACCT: [id number] UNIT: [id number] : 1970 LOC: TELE-CENTR ROOM / BED: [facility] / A AGE / SEX: 54 / F ADM STATUS: ADM IN SERVICE 1114 ORDERING PHYSICIAN: COCO SHAH PROCEDURE(s): CXRP - CHEST PORTABLE REASON: chf ORDER NUMBER(s): [id number], ACCESSION NUMBER(s): [id number] CHEST RADIOGRAPH Indication: chf Technique: Single frontal view of the chest was obtained COMPARISON: XY CHEST PORTABLE on DOS: 12/18/24, XY CHEST XRAY 1 VIEW on DOS: 12/16/24, XY CHEST PORTABLE on DOS: 06/10/24 FINDINGS: Lines and Tubes: None Lungs: Clear Pleura: No effusion. No pneumothorax. Cardiomediastinal contours: Unremarkable Bones: Unremarkable IMPRESSION: Significantly improved aeration of the lungs. ATED BY: VICK NIÑO MD DICTATED DATE/TIME: 12/19/24 1236 SIGNED BY: VICK NIÑO MD SIGNED DATE/TIME: 12/19/24 1236 CC: [place] [id number] Ph: [phone] DIAGNOSTIC IMAGING Diagnostic Imaging Report : [id number] Signed PATIENT: HATTIE LOUIS ACCT: [id number] UNIT: [id number] : 1970 LOC: TELE-CENTR ROOM / BED: 0217T / A AGE / SEX: 54 / F ADM STATUS: ADM IN SERVICE 0400 ORDERING PHYSICIAN: COCO SHAH PROCEDURE(s): CXRP - CHEST PORTABLE REASON: chf ORDER NUMBER(s): [id number], ACCESSION NUMBER(s): [id number] CHEST RADIOGRAPH Indication: chf Technique: Single frontal view of the chest was obtained COMPARISON: XY CHEST XRAY 1 VIEW on DOS: 12/16/24, XY CHEST PORTABLE on DOS: 06/10/24 FINDINGS: Lines and Tubes: None Lungs: Diffuse increased interstitial prominence Pleura: No effusion. No pneumothorax. Cardiomediastinal contours: Unremarkable Bones: Unremarkable IMPRESSION: Possible mild pulmonary vascular congestion significantly improved. ATED BY: VICK NIÑO MD DICTATED DATE/TIME: 12/18/24926 SIGNED BY: VICK NIÑO MD SIGNED DATE/TIME: 12/18/24926 CC: [place] [id number] Ph: [phone] DIAGNOSTIC IMAGING Diagnostic Imaging Report : [id number] Signed PATIENT: HATTIE LOUIS ACCT: [id number] UNIT: [id number] : 1970 LOC: ER ROOM / BED: / AGE / SEX: 54 / F ADM STATUS: REG ER SERVICE 05 ORDERING PHYSICIAN: ZAYRA JENNINGS MD PROCEDURE(s): CXR1 - CHEST XRAY 1 VIEW REASON: Shortness of breath ORDER NUMBER(s): [id number], ACCESSION NUMBER(s): [id number] CHEST RADIOGRAPH Indication: Shortness of breath Technique: Single frontal view of the chest was obtained Comparison: XY CHEST PORTABLE on DOS: 06/10/24 FINDINGS: Lines and Tubes: None Lungs: Diffuse interstitial opacities. Pleura: No effusion. No pneumothorax. Cardiomediastinal contours: Cardiomegaly. Bones: No acute osseous abnormality. IMPRESSION: Diffuse pulmonary edema / CHF. ATED BY: GARTH WEBB MD DICTATED DATE/TIME: 12/16/242109 SIGNED BY: GARTH WEBB MD SIGNED DATE/TIME: 12/16/242109 CC: Condition at Discharge: Fair Final Diagnosis/Problems List Acute on chronic hypoxic respiratory failure, likely due to heart failure exacerbation/COPD exacerbation community-acquired pneumonia Gram-positive Gram-negative/atypical Ejection fraction 55-60% Aortic insufficiency, moderate Paroxysmal atrial fibrillation , currently on sinus rhythm History of rheumatoid arthritis History of fibromyalgia History of endometrial cancer status post hysterectomy 20 years ago History of depression History of anxiety Type 2 obesity, BMI 37.1 Hypertension Discharge Disposition: Home SNF Discharge Will this Physician continue t: No Discharge Instruct/Medications Diet: Cardiac 2g Na,low cholest Activity: No Restrictions, As Tolerated Follow Up/Referral: Follow up with PCP within 2 weeks follow up with dr toledo , scheduled appt in 2 to 3 weeks Medications: script to pharmacy Discharge Statement: "Patient was advised to return to the ER or call 911 if any headaches, dizziness, shortness of breath, chest pain, abdominal pain, bleeding, fevers, or worsening of medical condition. Patient was counseled about treatment plan, medications, possible side effects, patientverbalized understanding. All questions were answered to the best of my ability. This discharge took greater then 30 minutes in planning, reviewing documentation, counseling the patient, and discussing with other team members." ASSESSMENT ASSESSMENT Assessment Acute on chronic hypoxic respiratory failure, likely due to heart failure exacerbation/COPD exacerbation Aortic insufficiency atrial fibrillation with RVR Date of Service: Dec 21, 2024 Billing Provider: ASHWIN KUNZ MD Common Visit Codes: 13324-ISA/OBS DISCH DAY >30min COCO SHAH RESIDENT Dec 21, 2024 17:04 ASHWIN KUNZ MD Dec 22, 2024 14:51
== END 2024-12-21 19:00 | disposition home or self-care (01) | DRG 140 ==
LOC: EDBD 20:02 → ER 20:02 → OVERFLOW 23:56 → TELE-CENTR 12-17 18:39
PROVIDERS: ADMIT Student in an Organized Health Care Education/Training Program; ATTEND Emergency Medicine
PROC: 5A09357 Assistance with Respiratory Ventilation, Less than 24 Consecutive Hours, Continuous Positive Airway Pressure (ICD-10-PCS; principal; 2024-12-16)
DX: J44.1 Chronic obstructive pulmonary disease with (acute) exacerbation (principal); J96.21 Acute and chronic respiratory failure with hypoxia; I50.31 Acute diastolic (congestive) heart failure; J15.69 Pneumonia due to other Gram-negative bacteria; I11.0 Hypertensive heart disease with heart failure; J15.9 Unspecified bacterial pneumonia; E78.5 Hyperlipidemia, unspecified; E66.9 Obesity, unspecified; J44.0 Chronic obstructive pulmonary disease with (acute) lower respiratory infection; F32.A Depression, unspecified; I35.1 Nonrheumatic aortic (valve) insufficiency; F41.9 Anxiety disorder, unspecified; M79.7 Fibromyalgia; I48.0 Paroxysmal atrial fibrillation; M06.9 Rheumatoid arthritis, unspecified; D64.9 Anemia, unspecified; Z85.43 Personal history of malignant neoplasm of ovary; Z79.01 Long term (current) use of anticoagulants; Z90.49 Acquired absence of other specified parts of digestive tract; Z90.710 Acquired absence of both cervix and uterus; Z88.8 Allergy status to other drugs, medicaments and biological substances; Z79.899 Other long term (current) drug therapy; Z68.37 Body mass index [BMI] 37.0-37.9, adult; Z85.89 Personal history of malignant neoplasm of other organs and systems
CPT/HCPCS: 36415; 36600; 71045; 80048; 80053; 80307; 81001; 82607; 82805; 83605; 83880; 84484; 84702; 85025; 85379; 85610; 85730; 87081; 87426; 87804; 93005; 93306; 94640; 94660; 96374; 96375; 97163; 99291; G0378; J1956

== ENCOUNTER 2025-01-20 07:57 | Day surgery (SDC) | payer MEDICAID ==
[~2025-01-20] VITALS: Ht 165.1 cm; Wt 104.8 kg
[~2025-01-20 07:57] MED LIST changes: +ACET650S12 RE; +ATOR20TA50 PO; +BISA10SU5 RE; -CEFD300C2 PO; +CHOL20007 PO; +CLON0.1T PO; +DOXE25CA2 PO; -DOXE75CA20 PO; -ERGO1CAP23 PO; +ESTR1TAB6 PO; -FERR325T20 PO; +FLUT110A8 IN; +HYDR-3682 PO; -HYDR-4798 PO; +HYOS0.1250 PO; +IBUP-1456 PO; +IPRA0.00 IN; +LACTCAP35 PO; -LOSA-535 PO; +METO200T42 PO; -METO25TA93 PO; -MUPI2OIN2 NAS; +MYC15TP TOP; +SERT-160 PO; -SERT-377 PO; +TIZA4CAP PO
[2025-01-20] MEDS: LIDOCAINE VISCOUS 2% 15ML UD PO ONE (12:55)
[2025-01-20] MEDS: MIDAZOLAM HCL 2MG/2ML 2ml VIAL (1mg/ml) IV ONE (13:25)
[2025-01-20] MEDS: fentaNYL CITRATE 100 MCG/2 ML VL IV ONE (13:28)
[2025-01-20 13:31] VITALS: BP 111/70; PULSE 78; RESP 17; O2SAT 97
[2025-01-20 13:46] VITALS: BP 101/59; PULSE 65; RESP 12; O2SAT 96
[2025-01-20 13:56] VITALS: BP 109/62; PULSE 68; RESP 12; O2SAT 95
[2025-01-20 14:11] VITALS: BP 105/67; PULSE 67; RESP 12; O2SAT 100
[2025-01-20 14:26] VITALS: BP 92/53; PULSE 67; RESP 15; O2SAT 100
--- NOTE | 2025-01-20 19:31 | DVHOP2 ---
Operative Report - 2 Report Details Date: 01/20/25 Preop Diagnosis: Mitral and aortic insufficiency Postop Diagnosis: s/p Transesophageal Echocardiogram Surgeon: Elena Miller MD Anesthesiologist: Conscious sedation Anesthesia: Mac, Local (Lidocaine gel was used for gargle. % and fentanyl given perioperatively. Patient was monitored throughout.) Consent: The patient was informed of the risks and benefits of the procedure. These include but are not limited to complications of anesthesia, postoperative infection, incomplete relief of symptoms, recurrence of symptoms, damage to blood vessels, nerves and tendons, deep venous thrombosis, pulmonary embolism and possible need for repeat surgery in the future. Complications: No complications. Estimated Blood Loss: No blood loss Findings: Severe mitral insufficiency with moderate aortic insufficiency Indications for Surgery: Shortness of breath Name of Procedure Performed Transesophageal echocardiogram Procedure Details Procedure Details: Prior full informed consent obtained the patient was given lidocaine gel to gargle and conscious sedation given. Patient was placed in left lateral and semi-Milton position. A transesophageal probe was passed without difficulty. Hemodynamic monitoring and suction was noted throughout. Procedure a transesophageal probe was passed without difficulty. Standard views obtained. Conclusions: Technically good study sinus rhythm. Left atrial enlargement with concentric LVH. Redundancy of the mitral leaflets without severe myxomatous degeneration. Mild aortic sclerosis tricuspid and pulmonic appear to be structurally normal. Left ventricular systolic performance is preserved. Left ventricular ejection fraction is approximately 60% with normal right ventricular function. There is severe mitral insufficiency with moderate aortic insufficiency. There was moderate tricuspid regurgitation. No pulmonic insufficiency noted. No pericardial effusion masses or vegetations discernible. Condition Good Disposition Home Date of Service: Jan 20, 2025 Billing Provider: ELENA MILLER Sr., MD Cardiology Common Codes: [id number] INP/OBS CARE (High) Cardiology Procedure Codes: 87922-MXX W/IMG DOC INCL PROB ACQ ELENA MILLER Sr., MD Jan 20, 2025 19:31
== END 2025-01-20 14:37 | disposition home or self-care (01) ==
LOC: CATH 07:57
PROVIDERS: ATTEND Internal Medicine
DX: I08.3 Combined rheumatic disorders of mitral, aortic and tricuspid valves (principal); J84.10 Pulmonary fibrosis, unspecified; Z79.899 Other long term (current) drug therapy; Z90.710 Acquired absence of both cervix and uterus; Z88.1 Allergy status to other antibiotic agents; Z88.8 Allergy status to other drugs, medicaments and biological substances; Z83.3 Family history of diabetes mellitus; Z82.49 Family history of ischemic heart disease and other diseases of the circulatory system
CPT/HCPCS: 93312; 93325; J2250; J3010; J7030; 99152; 99153

== ENCOUNTER 2025-01-23 14:49 | Inpatient (IN) | payer MEDICAID ==
[~2025-01-23] VITALS: Ht 165.1 cm; Wt 100.0 kg
--- NOTE | 2025-01-23 15:00 | ED.PDOC ---
SOB-HPI HPI Comments 54 year old female ALIZE presents to the ED with chief complaint of SOB. Patient reports that she has been experiencing SOB with associated body pain for the past 2 days. Patient relays that she took 2 breathing treatments prior to EMS arrival. EMS states that the patient was given 2 breathing treatments on route to the ED with no relief. EMS notes patient's O2 saturation on RA was at 75%, so she was placed on CPAP, doing better now. Patient reports that she has been intubated in the past. Patient denies any chest pain, cough, dizziness, headache, fever, chills, or N/V. Time Seen by MD: 14:57 Primary Care Provider: NONE Reviewed notes: Nurses Notes, Clinical Nursing Instructor Notes, Medications, Allergies Information Source: Patient, Emergency Med Personnel Mode of Arrival: EMS Severity: Moderate Timing: Days Duration: Since onset Context: At Rest History of: Asthma, COPD, CHF Prehospital treatment: Breathing Tx, Oxygen Modifying Factors: Nothing Associated Signs and Symptoms: None Past Medical History PAST MEDICAL HISTORY: AFIB, Asthma, Cancer, CHF, CKF, COPD, High Lipids, HTN, UTI'S Past Medical History (Other): Crohn's Disease Surgical History: Denies all surgeries [employer] MEMBER History: Ovarian Cancer Family History Family History: Unknown Social History Smoker: Non-Smoker Alcohol: Denies ETOH Use Drugs: Denies Drug Use Lives In: Home Constitutional: reports: others (Body pain); denies: chills, diaphoresis, fatigue, fever, malaise, sweats, weakness EENTM: denies: blurred vision, double vision, ear bleeding, ear discharge, ear drainage, ear pain, ear ringing, eye pain, eye redness, hearing loss, mouth pain, mouth swelling, nasal discharge, nose bleeding, nose congestion, nose pa in, photophobia, tearing, throat pain, throat swelling, voice changes, others Respiratory: reports: shortness of breath; denies: cough, hemoptysis, orthopnea, SOB at rest, SOB with excertion, stridor, wheezing, others Cardiovascular: denies: chest pain, dizzy spells, diaphoresis, Dyspnea on exertion, edema, irregular heart beat, left arm pain, lightheadedness, palpitations, PND, syncope, others Gastrointestinal: denies: abdomen distended, abdominal pain, blood streaked bowels, constipated, diarrhea, dysphagia, difficulty swallowing, hematemesis, [place], nausea, poor appetite, poor fluid intake, rectal bleeding, rectal pain, vomiting, others Genitourinary: denies: abnormal vagina bleeding, burning, dyspareunia, dysuria, flank pain, frequency, hematuria, incontinence, pain, , vagina discharge, urgency, others Neurological: denies: dizziness, fainting, headache, left sided numbness, left sided weakness, numbness, paresthesia, pre-existing deficit, right sided numbness, right sided weakness, seizure, speech problems, tingling, tremors, weakness, others Musculoskeletal: denies: back pain, gout, joint pain, joint swelling, muscle pain, muscle stiffness, neck pain, others Integumetry: denies: bruises, change in color, change in hair/nails, dryness, laceration, lesions, lumps, rash, wounds, others Allergic/Immunocompromised: denies: Difficulty Healing, Frequent Infections, Hives, Itching, others Hematologic/Lymphatic: denies: anemia, blood clots, easy bleeding, easy bruising, swollen glands, others Endocrine: denies: excessive hunger, excessive sweating, excessive thirst, excessive urination, flushing, intolerance to cold, intolerance to heat, unexpla ined weight gain, unexplained weight loss, others Psychiatric: denies: anxiety, bipolar disorder, depression, hopeless, panic disorder, schizophrenia, sleepless, suicidal, others All Other Systems: Reviewed and Negative Physical Exam General Appearance: Moderate Distress, Obese HEENT: Other (Pupils and face symmetric) Neck: Full Range of Motion, Normal Inspection Respiratory: Accessory Muscle Use, Decreased Breath Sounds, Respiratory Distress Cardiovascular: No JVD, Regular Rate/Rhythm Breast Exam: Deferred Gastrointestinal: Non Tender, Soft Genitalia: Deferred Pelvic: Deferred Rectal: Deferred Extremities: Leg edema, Normal inspection, Normal range of motion, Pedal edema Neurologic: Alert (Oriented x4), Normal Affect, Normal Mood, Other (Moves all extremities.) Cerebellar Function: NOT DONE Reflexes: NOT DONE Skin: Dry, Pallor, Warm Lymphatic: NOT DONE EKG EKG : Comments Sinus rhythm, rate 69, normal SC and QRS intervals, QTC prolonged at 485, normal axis, normal QRS, no ST/T change. Was a procedure done? Was a procedure done?: No Differential Dx Differential Diagnosis: Asthma, Bronchitis, CHF, COPD, Dysrhythmia, Hyperventilation, Myocardial infarction, Panic Attack, Pneumonia, Pulmonary Embolism, Respiratory Distress, URI X-Ray, Labs, Meds, VS Vital Signs Date Time Temp Pulse Resp B/P (MAP) Pulse Ox O2 Delivery O2 Flow Rate FiO2 01/23/25 19:12 94 Nasal Cannula* 5 40 01/23/25 19:00 70 19 95 Nasal Cannula* 4 36 01/23/25 18:43 94 Nasal Cannula 5.0 01/23/25 18:43 94 Nasal Cannula* 5 40 01/23/25 17:00 67 26 98/73 (81) 100 01/23/25 16:39 72 104/48 Facial BiPAP Mask 70 01/23/25 16:03 118/76 01/23/25 15:13 97.0 87 32 118/76 (90) 85 97.0 01/23/25 15:13 87 32 85 Bi-Pap+ 85 85 01/23/25 15:13 97.0 87 32 118/76 (90) 85 97.0 01/23/25 15:00 76 119/61 Facial BiPAP Mask 85 Lab Test 01/23/25 19:38 01/23/25 18:20 01/23/25 16:07 01/23/25 15:25 Range/Units Lactic Acid Level 1.4 2.0 0.4-2.0 mmol/L Magnesium Level 1.4 L 1.6-2.6 mg/dL Troponin I High Sensitivity 4 3 L </=34 ng/L Urine Color Colorless Yellow Urine Clarity Clear Clear Urine pH 6.0 5.0-9.0 Urine Specific [place] 1.006 1.001-1.035 Urine Protein Negative Negative Urine Ketones Negative Negative Urine Blood Negative Negative /uL Urine Nitrite Negative Negative Urine Bilirubin Negative Negative Urine Urobilinogen Normal Negative mg/dL Urine Leukocyte Esterase Negative Negative /uL Urine RBC <1 0 - 4 /hpf Urine Microscopic WBC < 1 0-5 /HPF Urine Squamous Epithelial Cells None seen <5 /hpf Urine Bacteria None seen None Seen /hpf Urine Glucose Normal Normal mg/dL Blood Gas Specimen Type Arterial Blood Gas Sample Site Right radial Blood Gas Patient Temperature 37.0 Arterial Blood Date Drawn [id number] Arterial Blood pH 7.405 7.350-7.450 Arterial Blood Partial Pressure CO2 44.1 32.0-45.0 mmHg Arterial Blood Partial Pressure O2 73.0 L 83.0-108.0 mmHg Arterial Blood HCO3 27.0 21.0-28.0 mmol/L Arterial Blood Oxygen Saturation 93.6 L 94.0-98.0 % Arterial Blood Base Excess 2.0 -2.0-3.0 mmol/L Arterial Blood Oxyhemoglobin 92.9 L 94.0-98.0 % Arterial Blood Carboxyhemoglobin 0.5 0.5-1.5 % Arterial Blood Methemoglobin 0.3 0.0-1.5 % Elfego Test Yes Blood Gas Total Hemoglobin 10.20 L 12.0-16.0 g/dL Blood Gas Modality Mask - bipap Blood Gas Spontaneous Rate 31 FiO2 % 75.0 Blood Gas EPAP 5 Blood Gas IPAP 14 White Blood Count 14.5 H 4.4-10.8 10^3/uL Red Blood Count 3.21 L 4.0-5.20 10^6/uL Hemoglobin 9.8 L 12.2-16.2 g/dL Hematocrit 30.6 L 36.0-46.0 % Mean Corpuscular Volume 95.4 80.0-100.0 fL Mean Corpuscular Hemoglobin 30.5 28.0-32.0 pg Mean Corpuscular Hemoglobin Concent 32.0 32.0-36.0 g/dL Red Cell Distribution Width 15.8 H 11.8-14.3 % Platelet Count 290 140-450 10^3/uL Mean Platelet Volume 9.6 6.9-10.8 fL Neutrophils (%) (Auto) 79.1 37.0-80.0 % Lymphocytes (%) (Auto) 15.4 10.0-50.0 % Monocytes (%) (Auto) 4.2 0.0-12.0 % Eosinophils (%) (Auto) 0.6 0.0-7.0 % Basophils (%) (Auto) 0.7 0.0-2.0 % Neutrophils # (Auto) 11.4 H 1.6-8.6 10 ^3/uL Lymphocytes # (Auto) 2.2 0.4-5.4 10 ^3/uL Monocytes # (Auto) 0.6 0-1.3 10 ^3/uL Eosinophils # (Auto) 0.1 0-0.8 10 ^3/uL Basophils # (Auto) 0.1 0-0.2 10 ^3/uL Nucleated Red Blood Cells 0.0 % Sodium Level 135 L 136-145 mmol/L Potassium Level 3.7 3.5-5.1 mmol/L Chloride Level 100 98-107 mmol/L Carbon Dioxide Level 26 20-31 mmol/L Anion Gap 9 5-15 Blood Urea Nitrogen 12 9-23 mg/dL Creatinine 1.26 H 0.550-1.02 mg/dL Glomerular Filtration Rate Calc 51 >90 mL/min BUN/Creatinine Ratio 9.5 L 10.0-20.0 Serum Glucose 111 H 74-106 mg/dL Calcium Level 9.4 8.7-10.4 mg/dL Total Bilirubin 0.5 0.2-1.0 mg/dL Aspartate Amino Transferase (AST) 63 H 13-40 U/L Alanine Aminotransferase (ALT) 32 7-40 U/L Alkaline Phosphatase 75 46-116 U/L B-Type Natriuretic Peptide 501.78 0-100 pg/mL Total Protein 6.4 5.7-8.2 g/dL Albumin 4.2 3.2-4.8 g/dL Current Medications Medications (Trade) Dose Ordered Sig/Bárbara Route Start Time Stop Time Status Last Admin Albuterol (Ventolin Medneb) 5 mg ONCE ONCE NEB 01/23/25 15:00 01/23/25 15:01 DC 01/23/25 15:12 Ipratropium [place] (Atrovent Medneb) 0.5 mg ONCE ONCE NEB 01/23/25 15:00 01/23/25 15:01 DC 01/23/25 15:12 Methylprednisolone Sodium Succinate (Solu Medrol) 125 mg ONCE ONCE IV 01/23/25 15:00 01/23/25 15:01 DC 01/23/25 16:02 Furosemide (Lasix Injection) 40 mg ONCE ONCE IV 01/23/25 15:00 01/23/25 15:01 DC 01/23/25 16:03 Ketorolac Tromethamine (Toradol Injection) 30 mg ONCE ONCE IV 01/23/25 16:30 01/23/25 16:31 DC 01/23/25 16:39 Cefepime HCl 50 ml @ 50 mls/hr ONCE ONCE IV 01/23/25 19:00 01/23/25 19:59 DC 01/23/25 19:08 Chest XR: FINDINGS: Lines and Tubes: None Lungs: Diffuse opacities of bilateral lungs. No pneumothorax. Cardiomediastinal contours: Unremarkable Bones: No acute osseous abnormality. IMPRESSION: Diffuse opacities of bilateral lungs which may represent multifocal pneumonia X-Ray, Labs, Meds, VS Comment 54-year-old female with a history of morbid obesity, COPD on home O2, CHF, hypertension, dyslipidemia, CKD, AFib, ovarian cancer and skin cancer brought in by EMS from home complaining of shortness of breath unresponsive to home nebulizer treatments and requiring CPAP administered by EMS Vitals remarkable for oxygen saturation 85% on room air Exam remarkable for moderate respiratory distress, accessory muscle use, diminished breath sounds bilaterally Rhythm strip independently interpreted by me: Sinus rhythm, rate 76, no ectopy. Chest x-ray IMPRESSION: Diffuse opacities of bilateral lungs which may represent multifocal pneumonia CBC remarkable for WBC 14.5, hemoglobin 9.8, hematocrit 30.6, metabolic panel remarkable for sodium 135, creatinine 1.26, BNP 501.78, troponin negative, ABG remarkable for PO2 73, oxygen saturation 93.6 on BiPAP Patient treated with the following in the ED: Patient was transferred from EMS CPAP to BiPAP Albuterol 5 mg/Atrovent 0.5 mg nebulized, Solu-Medrol 125 mg IV, Lasix 40 mg IV, Toradol 30 mg IV, vancomycin per pharmacy IV, cefepime 1 g IV, morphine 4 mg IV, reglan 10 mg IV On re-evaluation, patient stated she was feeling more comfortable, however was not ready to remove the BiPAP. Plan is to admit the patient for antibiotics, respiratory support as needed and pulmonary consultation. Case discussed with RY Gallagher, who will admit the patient. Time of 1ST Reevaluation: 15:56 Reevaluation 1ST: Unchanged Patient Education/Counseling: Diagnosis, Treatment Family Education/Counseling: No Family Present Additional Information -Reviewed patient's previous visit(s): 12/16/24 for CHF exacerbation - The following tests were ordered, and results were reviewed by me: CBC. CMP, Troponin, UA, BNP, Lactic Acid, Blood Culture, BHCG Quant, EKG, Chest XR - Additional information was gathered from interviewing the following independent Historian: EMS - I reviewed and agreed with the following test results read by other provider: Chest XR - I discussed treatments and results with medical personnel and: patient Comprehensive systems review obtained and negative except for what is stated in the HPI. Departure 1 Departure Time of Disposition: 18:50 Impression: Primary Impression: Acute on chronic respiratory failure with hypoxemia Additional Impressions: COPD exacerbation CHF exacerbation Qualified Codes: I50.9 - Heart failure, unspecified Pneumonia Qualified Codes: J18.9 - Pneumonia, unspecified organism Disposition: ADMITTED INPATIENT Admit to: [facility] Condition: Serious Critical Care Note Critical Care Time?: Yes (45 min-critical care time only) Critical care comment: Critical care time including multiple bedside re-evaluations, review of lab and imaging studies, and discussion of the case with the admitting provider. Jeannine dodson is high risk for respiratory decompensation. Stability Stability form required: No Heart Score Heart Score: Heart Score Response (Comments) Value History N/A 0 EKG N/A 0 Age N/A 0 Risk Factors N/A 0 Troponin N/A 0 Total 0 I personally scribed for YONG MEDINA MD ([email or web address]) on 01/23/25 at 15:00. Electronically submitted by Ga Boyce ([email or web address]). I personally scribed for YONG MEDINA MD ([email or web address]) on 01/23/25 at 15:18. Electronically submitted by Ga Boyce ([email or web address]). I personally scribed for YONG MEDINA MD ([email or web address]) on 01/23/25 at 17:02. Electronically submitted by Ga Boyce ([email or web address]). YONG MEDINA MD Jan 23, 2025 15:00
[2025-01-23] MEDS: IPRATROPIUM BROM 0.5 MG/2.5ML INH SOL NEB ONE (15:12)
[2025-01-23] MEDS: ALBUTEROL SULF 2.5 MG/0.5ML(0.5%) NEB SOLN NEB ONE (15:12)
[2025-01-23 15:13] VITALS: PULSE 87; RESP 32; O2SAT 85
--- NOTE | 2025-01-23 15:34 | DVH ---
CHEST RADIOGRAPH Indication: sob Technique: Single frontal view of the chest was obtained Comparison: XY CHEST PORTABLE on DOS: 12/19/24, XY CHEST PORTABLE on DOS: 12/18/24, XY CHEST XRAY 1 VIE W on DOS: 12/16/24 FINDINGS: Lines and Tubes: None Lungs: Diffuse opacities of bilateral lungs. No pneumothorax. Cardiomediastinal contours: Unremarkable Bones: No acute osseous abnormality. IMPRESSION: Diffuse opacities of bilateral lungs which may represent multifocal pneumonia
[2025-01-23 15:55] LABS: Basophils # (auto) 0.1 10 ^3/uL (0-0.2); Basophils % (auto) 0.7 % (0.0-2.0); Eosinophils # (auto) 0.1 10 ^3/uL (0-0.8); Eosinophils % (auto) 0.6 % (0.0-7.0); Hematocrit 30.6 % (36.0-46.0); Hemoglobin 9.8 g/dL (12.2-16.2); Lymphocytes # (auto) 2.2 10 ^3/uL (0.4-5.4); Lymphocytes % (auto) 15.4 % (10.0-50.0); Mean Corpuscular Hemoglobin 30.5 pg (28.0-32.0); Mean Corpuscular Volume 95.4 fL (80.0-100.0); Monocytes # (auto) 0.6 10 ^3/uL (0-1.3); Monocytes % (auto) 4.2 % (0.0-12.0); Neutrophils # (auto) 11.4 10 ^3/uL (1.6-8.6); Neutrophils % (auto) 79.1 % (37.0-80.0); Platelet Count (auto) 290 10^3/uL (140-450); Red Blood Cells 3.21 10^6/uL (4.0-5.20); Red Cell Distribution Width 15.8 % (11.8-14.3); White Blood Cell 14.5 10^3/uL (4.4-10.8)
[2025-01-23 16:02] LABS: Alanine Aminotransferase 32 U/L (7-40); Albumin 4.2 g/dL (3.2-4.8); Alkaline Phosphatase 75 U/L (46-116); Anion Gap 9 (5-15); BUN/Creatinine Ratio 9.5 (10.0-20.0); Bilirubin, Total 0.5 mg/dL (0.2-1.0); Blood Urea Nitrogen 12 mg/dL (9-23); Calcium 9.4 mg/dL (8.7-10.4); Carbon Dioxide 26 mmol/L (20-31); Chloride 100 mmol/L (98-107); Potassium 3.7 mmol/L (3.5-5.1); Total Protein 6.4 g/dL (5.7-8.2)
[2025-01-23] MEDS: methylPREDNISolone SOD SUCC 125 MG/2 ML VL IV ONE (16:02)
[2025-01-23] MEDS: FUROSEMIDE 40 MG/4 ML VIAL IV ONE (16:03)
[2025-01-23 16:05] LABS: Glucose 111 mg/dL (74-106); Sodium 135 mmol/L (136-145)
[2025-01-23 16:06] LABS: Aspartate Aminotransferase 63 U/L (13-40)
[2025-01-23] MEDS: KETOROLAC TROMETH 30 MG/ML 1ML VIAL IV ONE (16:39)
[2025-01-23 18:26] LABS: Urine Bacteria None Seen /hpf (None Seen)
[2025-01-23 18:43] VITALS: O2SAT 94
[2025-01-23 18:43] LABS: Urine Blood Negative /uL (Negative); Urine Clarity Clear (Clear); Urine Color Colorless (Yellow); Urine Protein, UAD Negative (Negative); Urine Specific Gravity 1.006 (1.001-1.035); Urine Squamous Epithelial Cell None Seen /hpf (<5); Urine Urobilinogen Normal (Negative); Urine WBC < 1 /HPF (0-5)
[2025-01-23] MEDS ORDERED: PIPERACILLIN-TAZO 4.5GM 100 ML IV ONE (18:45)
[2025-01-23] MEDS ORDERED: CEFEPIME 1GM/ 50ML 50 ML IV ONE (18:45)
[2025-01-23 19:00] VITALS: PULSE 70; RESP 19; O2SAT 95
[2025-01-23] MEDS ORDERED: VANCOMYCIN PER PHARMACY 0 MG IV SCH (19:00)
[2025-01-23] MEDS: CEFEPIME 2GM/50ML NS 50 ML IV ONE (19:08)
[2025-01-23] MEDS ORDERED: ACETAMINOPHEN 325 MG TAB PO PRN (20:00)
[2025-01-23] MEDS ORDERED: ONDANSETRON HCL 4 MG/2 ML VIAL IV ONE (20:00)
[2025-01-23] MEDS: METOCLOPRAMIDE HCL 5MG/ml INJ 2ml VIAL IV ONE (20:06)
[2025-01-23] MEDS: MORPHINE SULFATE 4 MG/ML SYR/VIAL IV ONE (20:07)
[2025-01-23] MEDS: VANCOMYCIN 1GM/200ML PM 250 ML IV SCH (21:00)
[2025-01-23] MEDS: HYDROcodone-ACET 5/325MG TAB PO PRN (21:25)
[2025-01-23 21:28] VITALS: PULSE 68; RESP 22; O2SAT 96
[2025-01-23] MEDS: IPRATROPIUM BROM 0.5 MG/2.5ML INH SOL NEB SCH (21:28)
[2025-01-23 21:30] VITALS: BP 116/63; PULSE 68; RESP 28; TEMP 98.4; O2SAT 96
[2025-01-23 21:35] VITALS: PULSE 68; RESP 28; O2SAT 97
[2025-01-23] MEDS: methylPREDNISolone SOD SUCC 40 MG/ML VL IV SCH (21:53)
[2025-01-23] MEDS: FUROSEMIDE 40 MG/4 ML VIAL IV SCH (22:02)
--- NOTE | 2025-01-23 23:19 | DVHINCON2 ---
Date of service: Jan 23, 2025 Referring Physician Alva Gallagher NP Reason for Consultation Acute on chronic hypoxic respiratory failure, COPD exacerbation, pneumonia History of Present Illness A 54-year-old woman with PMHx that includes COPD, Asthma, atrial fibrillation, CHF, CKD and hypertension who presents to the ED today with chief complaint of shortness of breath. Patient reports that she has been experiencing SOB with associated body pain for the past 2 days. Patient took 2 breathing treatments prior to EMS arrival. Per EMS, she was given 2 breathing treatments en route to the ED with no relief. EMS notes patient's O2 saturation on RA was at 75%, so she was placed on CPAP with improvement. Patient reports hx of intubation in the past. She denies any chest pain, cough, dizziness, headache, fever, chills, or N/V. Patient was admitted for further care and pulmonary consultation is requested for evaluation and management due to the above findings. Review of Systems: 14-point review of systems negative unless otherwise noted above. Past Medical History: COPD, Asthma, atrial fibrillation, CHF, hyperlipidemia, hypertension, CKD, Crohn's disease, ovarian cancer and UTIs. Past Surgical History: Medications: Reviewed. Allergies: Erythromycin Ondansetron Azithromycin Family History: Diabetes mellitus Hypercholesterolemia Hypertension. Alcoholism Social History: Nonsmoker. No alcohol or illicit drug use. Family History: Alcoholism G8 BROTHER G8 BROTHER G8 BROTHER G8 SISTER Diabetes mellitus G8 BROTHER Hypercholesterolemia Hypertension G8 MOTHER G8 FATHER G8 BROTHER G8 BROTHER G8 BROTHER 19 CHILD 19 CHILD 19 CHILD G8 SISTER G8 SISTER G8 SISTER G8 SISTER G8 SISTER G8 SISTER Allergies: Coded Allergies: Erythromycin (Unverified Allergy, Severe, 01/19/25) Ondansetron (Unverified Allergy, Severe, 01/19/25) Azithromycin (Verified Allergy, Unknown, 01/19/25) Home Meds Active Scripts Apixaban Base (ELIQUIS) 5 Mg Tab, 5 MG PO BID, #90 TAB Prov:MEENU LINDER MD 06/13/24 Amiodarone Hcl (Amiodarone Hcl) 200 Mg Tab, 1 TAB PO DAILY, #30 TAB Prov:MEENU LINDER MD 06/13/24 Reported Medications Nifedipine (Nifedipine Er) 90 Mg Tab, 1 TAB PO DAILY for HOLD IF SBP<100, #30 TAB 5 Refills 01/19/25 Lactobacillus (PROBIOTIC) Cap, 1 CAP PO DAILY for SUPPLEMENT, CAP 01/19/25 Cholecalciferol (VITAMIN D3) 2,000 Unit Tab, 1 TAB PO DAILY for SUPPLEMENT, #30 TAB 5 Refills 01/19/25 Tizanidine Hydrochloride (Zanaflex) 4 Mg Tab, 2 MG PO BID for MUSCLE SPASMS, TAB 01/19/25 Tizanidine Hydrochloride (Zanaflex) 4 Mg Cap, 1 CAP PO QPM, #30 CAP 01/19/25 Prazosin Hcl (Minipres) 1 Mg Cp, 4 MG PO QPM for NIGHTMARES, CAP 01/19/25 Prazosin Hcl (Minipres) 1 Mg Cp, 2 MG PO QAM for NIGHTMARES, CAP 01/19/25 Nystatin-Triamcinolone (Mycolog) 1 Applic Ap, 1 APPLIC TOP BID for FUNGAL RASH, #15 GRAMS 1 Refill 01/19/25 Ipratropium-Albuterol (Ipratropium [place]/Albut) 1 Susana Susana, 1 SUSANA IN Q4HP PRN for SHORTNESS OF BREATH, ML 01/19/25 Ibuprofen (Ibuprofen) 800 Mg Tab, 800 MG PO DAILYP PRN for PAIN SCALE 1 THRU 6, MG 01/19/25 Hydroxyzine Hcl (Hydroxyzine Hcl) 25 Mg Tab, 25 MG PO Q6HP PRN for N&V, MG 01/19/25 Fluticasone Propionate (Fluticasone Propionate Hf) 110 Mcg/Act Aer, 110 MCG IN BID for COPD, AER 01/19/25 Estradiol (Estradiol) 1 Mg Tab, 1 MG PO DAILY for VAGINAL DRYNESS, MG 01/19/25 Apixaban Base (ELIQUIS) 5 Mg Tab, 5 MG PO BID for A FIB, TAB 01/19/25 Doxepin Hcl (Doxepin Hcl) 25 Mg Cap, 3 CAP PO QPM for INSOMNIA, #30 CAP 1 Refill 01/19/25 Bisacodyl (BISACODYL) 10 Mg Sup, 10 MG RE NO BM FOR 3 DAYS for BOWEL MANAGEMENT, SUPP 01/19/25 Acetaminophen (Acetaminophen) 650 Mg Sup, 650 MG RE Q6HP PRN for TEMP GREATER THAN 100, SUPP 01/19/25 Hyoscyamine Sulfate (Levsin) 0.125 Mg Tab, 1 TAB PO Q4HPRN PRN for increased secretions, #120 TAB 5 Refills 01/19/25 Sertraline Hcl (Sertraline Hcl) 100 Mg Tab, 2 TAB PO DAILY for PTSD, #90 TAB 1 Refill 01/19/25 Atorvastatin Calcium (ATORVASTATIN CALCIUM) 20 Mg Tab, 1 TAB PO DAILY for cholesterol, #30 TAB 5 Refills 01/19/25 Metoprolol Succinate (Metoprolol Succinate Er) 200 Mg Tab, 200 MG PO DAILY for htn, TAB 01/19/25 Clonidine Hydrochloride (Clonidine Hcl) 0.1 Mg Tab, 0.1 MG PO BID for bp>150 for 30 Days, MG 01/19/25 Alprazolam (Alprazolam) 0.25 Mg Tab, 0.25 MG PO TIDPRN PRN for ANXIETY, TAB 06/12/24 Tizanidine Hydrochloride (Zanaflex) 4 Mg Tab, 2 MG PO Q8HR, TAB 06/12/24 Rosuvastatin Calcium (Crestor) 40 Mg Tab, 40 MG PO DAILY, TAB 06/12/24 Albuterol Sulfate (Albuterol Sulfate Hfa) 108 Mcg/Act Aer, 2.5 MG IN QID, AER 06/12/24 Pantoprazole Sodium Sesquihydr (Pantoprazole Sodium) 40 Mg Tab, 40 MG PO DAILY, TAB 06/12/24 Current Medications Current Medications Medications (Trade) Dose Ordered Sig/Bárbara Route PRN Reason Start Time Stop Time Status Last Admin Vancomycin HCl 0 ml @ 0 mls/hr UD IV 01/23/25 19:00 Vancomycin HCl 250 ml @ 250 mls/hr Q1H IV 01/23/25 20:00 01/23/25 21:59 DC 01/23/25 21:00 Methylprednisolone Sodium Succinate (Solu Medrol) 40 mg BID IV 01/23/25 22:00 01/23/25 21:53 Levofloxacin/ Dextrose 100 ml @ 100 mls/hr DAILY IV 01/24/25 10:00 Furosemide (Lasix Injection) 40 mg BID IV 01/23/25 22:00 01/23/25 22:02 Ipratropium [place] (Atrovent Medneb) 0.5 mg Q4HR NEB 01/23/25 22:00 01/23/25 21:28 Morphine Sulfate 2 mg Q6HP PRN IV PAIN SCALE 7 THRU 10 01/23/25 20:00 Enoxaparin Sodium (Lovenox) 40 mg DAILY SC 01/24/25 10:00 Acetaminophen/ Hydrocodone Bitart ([place] 5/325MG Tab) 1 tab Q6HPRN PRN PO PAIN SCALE 1 THRU 6 01/23/25 20:00 01/23/25 21:25 Pantoprazole Sodium (Protonix) 40 mg DAILY IV 01/24/25 10:00 Acetaminophen (Tylenol Tablet) 650 mg Q6HPRN PRN PO PAIN SCALE 1-3 OR TEMP>100.4 01/23/25 20:00 Albuterol (Ventolin Medneb) 2.5 mg Q6HPRN PRN NEB SHORTNESS OF BREATH 01/23/25 20:00 Vital Signs Vital Signs Date Time Temp Pulse Resp B/P (MAP) Pulse Ox O2 Delivery O2 Flow Rate FiO2 01/23/25 22:02 115/63 01/23/25 22:00 98.4 69 20 93 98.4 01/23/25 21:30 4.0 36 01/23/25 21:28 Nasal Cannula Physical Exam Gen.: Patient lying in bed in no apparent distress. On supplemental oxygen. Head: Normocephalic, atraumatic. Eyes: EOMI/PERRLA. Ears: Normal hearing. Normal anatomy. Neck/trachea: Trachea midline, supple. Nose: Normal external anatomy. Mouth: Moist mucous membranes. Chest: Decreased air entry bilaterally. No wheezing or rhonchi. Cardiovascular: Positive S1, positive S2. Regular rate and rhythm. Abdomen: Positive bowel sounds in all 4 quadrants. Soft, non-tender, non-distended. : Deferred. Rectal: Deferred. Skin: Warm, dry. Intact. Extremities: 2+ radial pulses bilaterally. No lower extremity edema. Neuro: Awake, alert, oriented x3. No gross motor or sensory deficits. Cranial nerves II through XII intact. Gait not assessed. Labs/Diagnostic Data Labs Test 01/23/25 20:30 01/23/25 19:38 01/23/25 18:20 01/23/25 16:07 Range/Units Troponin I High Sensitivity 4 </=34 ng/L Lactic Acid Level 1.4 0.4-2.0 mmol/L Magnesium Level 1.4 L 1.6-2.6 mg/dL Urine Color Colorless Yellow Urine Clarity Clear Clear Urine pH 6.0 5.0-9.0 Urine Specific [place] 1.006 1.001-1.035 Urine Protein Negative Negative Urine Ketones Negative Negative Urine Blood Negative Negative /uL Urine Nitrite Negative Negative Urine Bilirubin Negative Negative Urine Urobilinogen Normal Negative mg/dL Urine Leukocyte Esterase Negative Negative /uL Urine RBC <1 0 - 4 /hpf Urine Microscopic WBC < 1 0-5 /HPF Urine Squamous Epithelial Cells None seen <5 /hpf Urine Bacteria None seen None Seen /hpf Urine Glucose Normal Normal mg/dL Blood Gas Specimen Type Arterial Blood Gas Sample Site Right radial Blood Gas Patient Temperature 37.0 Arterial Blood Date Drawn [id number] Arterial Blood pH 7.405 7.350-7.450 Arterial Blood Partial Pressure CO2 44.1 32.0-45.0 mmHg Arterial Blood Partial Pressure O2 73.0 L 83.0-108.0 mmHg Arterial Blood HCO3 27.0 21.0-28.0 mmol/L Arterial Blood Oxygen Saturation 93.6 L 94.0-98.0 % Arterial Blood Base Excess 2.0 -2.0-3.0 mmol/L Arterial Blood Oxyhemoglobin 92.9 L 94.0-98.0 % Arterial Blood Carboxyhemoglobin 0.5 0.5-1.5 % Arterial Blood Methemoglobin 0.3 0.0-1.5 % Elfego Test Yes Blood Gas Total Hemoglobin 10.20 L 12.0-16.0 g/dL Blood Gas Modality Mask - bipap Blood Gas Spontaneous Rate 31 FiO2 % 75.0 Blood Gas EPAP 5 Blood Gas IPAP 14 Test 01/23/25 15:25 Range/Units White Blood Count 14.5 H 4.4-10.8 10^3/uL Red Blood Count 3.21 L 4.0-5.20 10^6/uL Hemoglobin 9.8 L 12.2-16.2 g/dL Hematocrit 30.6 L 36.0-46.0 % Mean Corpuscular Volume 95.4 80.0-100.0 fL Mean Corpuscular Hemoglobin 30.5 28.0-32.0 pg Mean Corpuscular Hemoglobin Concent 32.0 32.0-36.0 g/dL Red Cell Distribution Width 15.8 H 11.8-14.3 % Platelet Count 290 140-450 10^3/uL Mean Platelet Volume 9.6 6.9-10.8 fL Neutrophils (%) (Auto) 79.1 37.0-80.0 % Lymphocytes (%) (Auto) 15.4 10.0-50.0 % Monocytes (%) (Auto) 4.2 0.0-12.0 % Eosinophils (%) (Auto) 0.6 0.0-7.0 % Basophils (%) (Auto) 0.7 0.0-2.0 % Neutrophils # (Auto) 11.4 H 1.6-8.6 10 ^3/uL Lymphocytes # (Auto) 2.2 0.4-5.4 10 ^3/uL Monocytes # (Auto) 0.6 0-1.3 10 ^3/uL Eosinophils # (Auto) 0.1 0-0.8 10 ^3/uL Basophils # (Auto) 0.1 0-0.2 10 ^3/uL Nucleated Red Blood Cells 0.0 % Sodium Level 135 L 136-145 mmol/L Potassium Level 3.7 3.5-5.1 mmol/L Chloride Level 100 98-107 mmol/L Carbon Dioxide Level 26 20-31 mmol/L Anion Gap 9 5-15 Blood Urea Nitrogen 12 9-23 mg/dL Creatinine 1.26 H 0.550-1.02 mg/dL Glomerular Filtration Rate Calc 51 >90 mL/min BUN/Creatinine Ratio 9.5 L 10.0-20.0 Serum Glucose 111 H 74-106 mg/dL Calcium Level 9.4 8.7-10.4 mg/dL Total Bilirubin 0.5 0.2-1.0 mg/dL Aspartate Amino Transferase (AST) 63 H 13-40 U/L Alanine Aminotransferase (ALT) 32 7-40 U/L Alkaline Phosphatase 75 46-116 U/L B-Type Natriuretic Peptide 501.78 0-100 pg/mL Total Protein 6.4 5.7-8.2 g/dL Albumin 4.2 3.2-4.8 g/dL Assessment Impression: Acute on chronic hypoxic respiratory failure Dependence on supplemental oxygen AE COPD CHF exacerbation Pneumonia Atelectasis Hypomagnesemia Plan: Supplemental oxygen Titrate to keep O2 sats above 92%. Continue bronchodilators. Continue antibiotics Continue steroids Incentive spirometry Diurese to euvolemia w/ Lasix Monitor renal function. Monitor electrolytes. Supplement as necessary. Monitor ins and outs. GI prophylaxis - Protonix. DVT prophylaxis. Prognosis: Poor given patient's multiple co-morbidities. Rest of plan per hospitalist and other consultants. Thank you, RY Gallagher, for allowing me to participate in this patient's care. Further recommendations will depend on the patient's clinical course. Please do not hesitate to contact me if you have any questions or concerns. This medical document was created using an electronic medical record system with [employer] dictation system. Although these documentations are being carefully reviewed, there may still be some phonetic and typographical changes. The errors are purely typographical, due to imperfection on the software program, and do not reflect any compromise in the patient's medical care. Plan discussed with: Patient, Other (RN/RY Gallagher/) LORENA SOLARES MD Jan 23, 2025 23:19
[2025-01-24] VITALS (16 sets, daily range): BP systolic 121–125; BP diastolic 59–61; PULSE 64–84; RESP 12–22; TEMP 98.4–99.2; O2SAT 94–100
[2025-01-24] MEDS: MORPHINE SULFATE INJ 2 MG/ml SYRG IV PRN ×2 (02:12→06:15)
[2025-01-24] MEDS: MAGNESIUM SULFATE 1GM/100ML 100 ML IV SCH (03:01)
--- NOTE | 2025-01-24 03:02 | DVHHP2 ---
Admitting Diagnosis: Acute respiratory failure with hypoxia, COPD exacerbation, Pneumonia History of Present Illness History Source: Patient Exam Limitations: No limitations HPI Mrs. Steve Penaloza is a 54 year old female with a history of Asthma, COPD supplemental home 02 dependent, CHF, Atrial fibrillation, Crohn's disease, hyperlipidemia, hypertension, chronic kidney disease who presents with chief complaint of SOB. Patient reports that she has been experiencing SOB with associated body pain for the past 2 days. Patient reports pleuritic chest tightness, denies chest pain, nausea, vomiting, fevers, chills. Patient CXR: multifocal pneumonia. Patient admitted for further evaluation and treatment. Home Meds Active Scripts Potassium Chloride (Potassium Chloride ER) 10 Meq Tab, 10 MEQ PO DAILY, #30 TAB Prov:MEENU LINDER MD 01/25/25 Furosemide (Furosemide) 40 Mg Tab, 1 TAB PO BID, #90 TAB Prov:MEENU LINDER MD 01/25/25 Apixaban Base (ELIQUIS) 5 Mg Tab, 5 MG PO BID, #90 TAB Prov:MEENU LINDER MD 06/13/24 Amiodarone Hcl (Amiodarone Hcl) 200 Mg Tab, 1 TAB PO DAILY, #30 TAB Prov:MEENU LINDER MD 06/13/24 Reported Medications Nifedipine (Nifedipine Er) 90 Mg Tab, 1 TAB PO DAILY for HOLD IF SBP<100, #30 TAB 5 Refills 01/19/25 Lactobacillus (PROBIOTIC) Cap, 1 CAP PO DAILY for SUPPLEMENT, CAP 01/19/25 Cholecalciferol (VITAMIN D3) 2,000 Unit Tab, 1 TAB PO DAILY for SUPPLEMENT, #30 TAB 5 Refills 01/19/25 Tizanidine Hydrochloride (Zanaflex) 4 Mg Tab, 2 MG PO BID for MUSCLE SPASMS, TAB 01/19/25 Tizanidine Hydrochloride (Zanaflex) 4 Mg Cap, 1 CAP PO QPM, #30 CAP 01/19/25 Prazosin Hcl (Minipres) 1 Mg Cp, 4 MG PO QPM for NIGHTMARES, CAP 01/19/25 Prazosin Hcl (Minipres) 1 Mg Cp, 2 MG PO QAM for NIGHTMARES, CAP 01/19/25 Nystatin-Triamcinolone (Mycolog) 1 Applic Ap, 1 APPLIC TOP BID for FUNGAL RASH, #15 GRAMS 1 Refill 01/19/25 Ipratropium-Albuterol (Ipratropium [place]/Albut) 1 Susana Susana, 1 SUSANA IN Q4HP PRN for SHORTNESS OF BREATH, ML 01/19/25 Ibuprofen (Ibuprofen) 800 Mg Tab, 800 MG PO DAILYP PRN for PAIN SCALE 1 THRU 6, MG 01/19/25 Hydroxyzine Hcl (Hydroxyzine Hcl) 25 Mg Tab, 25 MG PO Q6HP PRN for N&V, MG 01/19/25 Fluticasone Propionate (Fluticasone Propionate Hf) 110 Mcg/Act Aer, 110 MCG IN BID for COPD, AER 01/19/25 Estradiol (Estradiol) 1 Mg Tab, 1 MG PO DAILY for VAGINAL DRYNESS, MG 01/19/25 Apixaban Base (ELIQUIS) 5 Mg Tab, 5 MG PO BID for A FIB, TAB 01/19/25 Doxepin Hcl (Doxepin Hcl) 25 Mg Cap, 3 CAP PO QPM for INSOMNIA, #30 CAP 1 Refill 01/19/25 Bisacodyl (BISACODYL) 10 Mg Sup, 10 MG RE NO BM FOR 3 DAYS for BOWEL MANAGEMENT, SUPP 01/19/25 Acetaminophen (Acetaminophen) 650 Mg Sup, 650 MG RE Q6HP PRN for TEMP GREATER THAN 100, SUPP 01/19/25 Hyoscyamine Sulfate (Levsin) 0.125 Mg Tab, 1 TAB PO Q4HPRN PRN for increased secretions, #120 TAB 5 Refills 01/19/25 Sertraline Hcl (Sertraline Hcl) 100 Mg Tab, 2 TAB PO DAILY for PTSD, #90 TAB 1 Refill 01/19/25 Atorvastatin Calcium (ATORVASTATIN CALCIUM) 20 Mg Tab, 1 TAB PO DAILY for cholesterol, #30 TAB 5 Refills 01/19/25 Metoprolol Succinate (Metoprolol Succinate Er) 200 Mg Tab, 200 MG PO DAILY for htn, TAB 01/19/25 Clonidine Hydrochloride (Clonidine Hcl) 0.1 Mg Tab, 0.1 MG PO BID for bp>150 for 30 Days, MG 01/19/25 Alprazolam (Alprazolam) 0.25 Mg Tab, 0.25 MG PO TIDPRN PRN for ANXIETY, TAB 06/12/24 Tizanidine Hydrochloride (Zanaflex) 4 Mg Tab, 2 MG PO Q8HR, TAB 06/12/24 Rosuvastatin Calcium (Crestor) 40 Mg Tab, 40 MG PO DAILY, TAB 06/12/24 Albuterol Sulfate (Albuterol Sulfate Hfa) 108 Mcg/Act Aer, 2.5 MG IN QID, AER 06/12/24 Pantoprazole Sodium Sesquihydr (Pantoprazole Sodium) 40 Mg Tab, 40 MG PO DAILY, TAB 06/12/24 Past Medical History Cardiac: AFIB, CHF, HTN, Hyperlipidemia Pulmonary: Asthma, COPD Central Nervous System: No pertinent Hx GI: No pertinent Hx Hemotology/Oncology: No pertinent Hx Hepatobiliary: No pertinent Hx Psychiatric: No pertinent Hx Musculoskeletal: No pertinent Hx Rheumotologic: No pertinent Hx Infectious Disease: No peritnent Hx ENT: No pertinent Hx Renal/: UTI, CKD Endocrine: No pertinent Hx Dermatology: No pertinent Hx Patient Family History: Alcoholism G8 BROTHER G8 BROTHER G8 BROTHER G8 SISTER Diabetes mellitus G8 BROTHER Hypercholesterolemia Hypertension G8 MOTHER G8 FATHER G8 BROTHER G8 BROTHER G8 BROTHER 19 CHILD 19 CHILD 19 CHILD G8 SISTER G8 SISTER G8 SISTER G8 SISTER G8 SISTER G8 SISTER Smoker: No Hx (Negative) Alocohol: None Drugs: None Lives with: With family Domestic Violence: Neg Review of Systems Constitutional: No symptom reported Ears, Nose, & Throat: No symptom reported Eyes: No symptom reported Pulmonary/Respiratory: Dyspnea, Pleuritic Chest Pain, Orthopnea Cardiovascular: No symptom reported Gastrointestinal: No symptom reported Genitourinary: No symptom reported Musculoskeletal: No symptom reported Skin: No symptom reported Psychiatric: No symptom reported Endocrine: No symptom reported Hemotologic/Lymphatic: No symptom reported H&P Exam Vital Signs Vital Signs Date Time Temp Pulse Resp B/P (MAP) Pulse Ox O2 Delivery O2 Flow Rate FiO2 01/24/25 02:12 64 21 108/43 01/24/25 02:04 94 01/24/25 01:58 Oxymizer 4 N/A 01/24/25 00:00 97.7 97.7 General Appeara: Well developed, Well nourished, Normal Appearance Head Exam: Normal inspection Neck Exam: Normal inspection, Non-tender, Normal alignment Eye Exam: bilateral eye Normal inspection, bilateral eye PERRL, bilateral eye EOMI Ear Exam: bilateral ear Auricle normal Nasal Exam: Normal inspection Mouth: Normal Inspection Pulmonary/Respiratory: Normal inspection, Wheezing, Inspiration Cardiovascular/Chest: Normal inspection, Regular rate, Normal Rhythm Peripheral Pulses: 2+ dorsalis pedis (R), 2+ dorsalis pedis (L), 2+ Radial (R), 2+ Radial (L) Abdominal Exam: Normal bowel sounds, Soft Rectal Exam: Deferred Pelvic Exam: Not done SCULPTURE CONSERVATOR Exam: Normal hearing, Normal speech, PERRL Motor/Sensory: Normal sensory function, Normal motor function Neuro/Mental St: Alert, Oriented Appearance: Appropriate appearance, Appropriate insight Eye contact/ Speech: Cooperative, Good eye contact, Normal speech Thoughts/Psych: Normal thought pattern Skin Exam: Normal inspection, Normal color, Warm/dry Labs/Xrays Labs Test 01/24/25 00:11 01/23/25 20:30 01/23/25 19:38 01/23/25 18:20 Range/Units Potassium Level 3.5 3.5-5.1 mmol/L Troponin I High Sensitivity 4 </=34 ng/L Lactic Acid Level 1.4 0.4-2.0 mmol/L Magnesium Level 1.4 L 1.6-2.6 mg/dL Urine Color Colorless Yellow Urine Clarity Clear Clear Urine pH 6.0 5.0-9.0 Urine Specific [place] 1.006 1.001-1.035 Urine Protein Negative Negative Urine Ketones Negative Negative Urine Blood Negative Negative /uL Urine Nitrite Negative Negative Urine Bilirubin Negative Negative Urine Urobilinogen Normal Negative mg/dL Urine Leukocyte Esterase Negative Negative /uL Urine RBC <1 0 - 4 /hpf Urine Microscopic WBC < 1 0-5 /HPF Urine Squamous Epithelial Cells None seen <5 /hpf Urine Bacteria None seen None Seen /hpf Urine Glucose Normal Normal mg/dL Test 01/23/25 16:07 01/23/25 15:25 Range/Units Blood Gas Specimen Type Arterial Blood Gas Sample Site Right radial Blood Gas Patient Temperature 37.0 Arterial Blood Date Drawn [id number] Arterial Blood pH 7.405 7.350-7.450 Arterial Blood Partial Pressure CO2 44.1 32.0-45.0 mmHg Arterial Blood Partial Pressure O2 73.0 L 83.0-108.0 mmHg Arterial Blood HCO3 27.0 21.0-28.0 mmol/L Arterial Blood Oxygen Saturation 93.6 L 94.0-98.0 % Arterial Blood Base Excess 2.0 -2.0-3.0 mmol/L Arterial Blood Oxyhemoglobin 92.9 L 94.0-98.0 % Arterial Blood Carboxyhemoglobin 0.5 0.5-1.5 % Arterial Blood Methemoglobin 0.3 0.0-1.5 % Elfego Test Yes Blood Gas Total Hemoglobin 10.20 L 12.0-16.0 g/dL Blood Gas Modality Mask - bipap Blood Gas Spontaneous Rate 31 FiO2 % 75.0 Blood Gas EPAP 5 Blood Gas IPAP 14 White Blood Count 14.5 H 4.4-10.8 10^3/uL Red Blood Count 3.21 L 4.0-5.20 10^6/uL Hemoglobin 9.8 L 12.2-16.2 g/dL Hematocrit 30.6 L 36.0-46.0 % Mean Corpuscular Volume 95.4 80.0-100.0 fL Mean Corpuscular Hemoglobin 30.5 28.0-32.0 pg Mean Corpuscular Hemoglobin Concent 32.0 32.0-36.0 g/dL Red Cell Distribution Width 15.8 H 11.8-14.3 % Platelet Count 290 140-450 10^3/uL Mean Platelet Volume 9.6 6.9-10.8 fL Neutrophils (%) (Auto) 79.1 37.0-80.0 % Lymphocytes (%) (Auto) 15.4 10.0-50.0 % Monocytes (%) (Auto) 4.2 0.0-12.0 % Eosinophils (%) (Auto) 0.6 0.0-7.0 % Basophils (%) (Auto) 0.7 0.0-2.0 % Neutrophils # (Auto) 11.4 H 1.6-8.6 10 ^3/uL Lymphocytes # (Auto) 2.2 0.4-5.4 10 ^3/uL Monocytes # (Auto) 0.6 0-1.3 10 ^3/uL Eosinophils # (Auto) 0.1 0-0.8 10 ^3/uL Basophils # (Auto) 0.1 0-0.2 10 ^3/uL Nucleated Red Blood Cells 0.0 % Sodium Level 135 L 136-145 mmol/L Chloride Level 100 98-107 mmol/L Carbon Dioxide Level 26 20-31 mmol/L Anion Gap 9 5-15 Blood Urea Nitrogen 12 9-23 mg/dL Creatinine 1.26 H 0.550-1.02 mg/dL Glomerular Filtration Rate Calc 51 >90 mL/min BUN/Creatinine Ratio 9.5 L 10.0-20.0 Serum Glucose 111 H 74-106 mg/dL Calcium Level 9.4 8.7-10.4 mg/dL Total Bilirubin 0.5 0.2-1.0 mg/dL Aspartate Amino Transferase (AST) 63 H 13-40 U/L Alanine Aminotransferase (ALT) 32 7-40 U/L Alkaline Phosphatase 75 46-116 U/L B-Type Natriuretic Peptide 501.78 0-100 pg/mL Total Protein 6.4 5.7-8.2 g/dL Albumin 4.2 3.2-4.8 g/dL Assessment/Plan Problem List: (1) Acute on chronic respiratory failure with hypoxemia (2) Pneumonia (3) COPD exacerbation (4) Hypomagnesemia Plan This is a 54 year old female with a known history of Asthma, COPD supplemental home 02 dependent, CHF, Atrial fibrillation, Crohn's disease, hyperlipidemia, hypertension, chronic kidney disease who presents to the hospital with shortness of breath. Patient found to have 1. Acute respiratory failure with hypoxia 2. Pneumonia 3. COPD exacerbation 4. acute on chronic CHF 5. hx of atrial fibrillation Plan Admit Telemetry unit Pulmonology consultation appreciated IV antibiotic Levaquin Duo Neb Treatment IV steroids Incentive Spirometry IV diuresis Lasix GI ppx DVT ppx Continue home medications when reconciled 2D echocardiogram Fluid restriction/strict I&O's Discussed all above with patient who verbalizes agreement and understanding of care plan. All questions were answered. Discussed with supervising MD. Patient's chart is reviewed and discussed with the nurse. I agree with the nurse practitioner's evaluation, documentation, assessment and care plan as outlined. Plan discussed with: Patient, Other Code Visit Code Visit Total Time (mins): 45 RAFITA LEI Jan 24, 2025 03:02 MEENU LINDER MD Jan 25, 2025 17:43
[2025-01-24 05:42] LABS: Potassium 3.6 mmol/L (3.5-5.1)
[2025-01-24 05:43] LABS: Anion Gap 12 (5-15); Calcium 9.4 mg/dL (8.7-10.4); Carbon Dioxide 24 mmol/L (20-31)
[2025-01-24 05:45] LABS: Chloride 98 mmol/L (98-107); Sodium 134 mmol/L (136-145)
[2025-01-24 05:48] LABS: BUN/Creatinine Ratio 12.5 (10.0-20.0); Blood Urea Nitrogen 20 mg/dL (9-23)
[2025-01-24 05:51] LABS: Basophils # (auto) 0.1 10 ^3/uL (0-0.2); Basophils % (auto) 0.6 % (0.0-2.0); Eosinophils # (auto) 0 10 ^3/uL (0-0.8); Glucose 183 mg/dL (74-106); Hematocrit 27.5 % (36.0-46.0); Hemoglobin 8.9 g/dL (12.2-16.2); Lymphocytes # (auto) 1.9 10 ^3/uL (0.4-5.4); Lymphocytes % (auto) 9.6 % (10.0-50.0); Mean Corpuscular Hemoglobin 30.6 pg (28.0-32.0); Mean Corpuscular Hgb Conc. 32.2 g/dL (32.0-36.0); Mean Corpuscular Volume 94.8 fL (80.0-100.0); Monocytes # (auto) 0.6 10 ^3/uL (0-1.3); Monocytes % (auto) 2.8 % (0.0-12.0); Neutrophils # (auto) 17.4 10 ^3/uL (1.6-8.6); Platelet Count (auto) 270 10^3/uL (140-450); Red Cell Distribution Width 15.5 % (11.8-14.3)
[2025-01-24] MEDS: ALBUTEROL SULF 2.5 MG/0.5ML(0.5%) NEB SOLN NEB PRN (07:12)
--- NOTE | 2025-01-24 10:46 | ECG ---
[facility] Test Date: 2025-01-23 Test Time: 20:09:24 Pat Name: HATTIE LOUIS Department: ED Room: 0278T Gender: F [facility] Practitioner: LIZY : 1970 Requested By: YONG BOO Order Number: [id number] Reading MD: Guilherme Miller Measurements Intervals [place] Rate: 69 P: 46 AR: 182 QRS: 46 QRSD: 88 T: 44 QT: 452 QTc: 485 Interpretive Statements Sinus rhythm Electronically Signed On 01-27-2025 12:52:40 PDT by Guilherme Miller Please click the below link to view image of tracing.
[2025-01-24] MEDS: PANTOPRAZOLE 40 MG/10 ML VIAL INJ IV SCH (10:49)
[2025-01-24] MEDS: ENOXAPARIN SOD 40 MG/0.4 ML SYRINGE SC SCH (10:50)
[2025-01-24] MEDS: levoFLOXacin 500MG 100 ML IV SCH (10:50)
[2025-01-24] MEDS: NYSTATIN (MOUTH-THROAT) 500,000 UNITS/5 ML SUSP MT SCH (22:05)
[2025-01-24] MEDS: DexAMETHasone SOD PHOS 10MG/1ML VIAL INJ IV ONE (22:07)
--- NOTE | 2025-01-24 23:50 | DVHPN2 ---
Progress Note - Dictate Date Seen: Jan 24, 2025 Medical Necessity Reason Pt with a Central, PICC or Fol: No Subjective Patient seen and examined at bedside. Remains on supplemental oxygen Overnight events reviewed. vital signs Vital Sign Date Time Temp Pulse Resp B/P (MAP) Pulse Ox O2 Delivery O2 Flow Rate FiO2 01/24/25 22:36 82 18 97 01/24/25 22:27 Nasal Cannula* 4 36 01/24/25 21:01 121/59 01/24/25 21:00 98.4 98.4 Total Intake and Output 01/23/25 01/23/25 01/24/25 15:00 23:00 07:00 Intake Total 520 ml 870 ml Output Total 1000 ml 1600 ml Balance -480 ml -730 ml medications Current Medications Medications Dose Ordered Sig/Bárbara Route Start Time Stop Time Status Last Admin Dose Admin Vancomycin HCl 0 ml @ 0 mls/hr UD IV 01/23/25 19:00 Methylprednisolone Sodium Succinate 40 mg BID IV 01/23/25 22:00 Hold 01/23/25 21:53 40 MG Levofloxacin/ Dextrose 100 ml @ 100 mls/hr DAILY IV 01/24/25 10:00 01/24/25 10:50 100 MLS/HR Furosemide 40 mg BID IV 01/23/25 22:00 01/24/25 21:01 40 MG Ipratropium [place] 0.5 mg Q4HR NEB 01/23/25 22:00 01/24/25 22:27 0.5 MG Enoxaparin Sodium 40 mg DAILY SC 01/24/25 10:00 01/24/25 10:50 40 MG Acetaminophen/ Hydrocodone Bitart 1 tab Q6HPRN PRN PO 01/23/25 20:00 01/24/25 18:50 1 TAB Pantoprazole Sodium 40 mg DAILY IV 01/24/25 10:00 01/24/25 10:49 40 MG Acetaminophen 650 mg Q6HPRN PRN PO 01/23/25 20:00 Albuterol 2.5 mg Q6HPRN PRN NEB 01/23/25 20:00 01/24/25 14:26 2.5 MG Morphine Sulfate 2 mg Q4HPRN PRN IV 01/24/25 05:00 01/24/25 20:58 2 MG Nystatin 5 ml QID MT 01/24/25 22:00 01/24/25 22:05 5 ML objective Gen.: Patient lying in bed in no apparent distress. On supplemental oxygen. Head: Normocephalic, atraumatic. Eyes: EOMI/PERRLA. Ears: Normal hearing. Normal anatomy. Neck/trachea: Trachea midline, supple. Nose: Normal external anatomy. Mouth: Moist mucous membranes. Chest: Decreased air entry bilaterally. No wheezing or rhonchi. Cardiovascular: Positive S1, positive S2. Regular rate and rhythm. Abdomen: Positive bowel sounds in all 4 quadrants. Soft, non-tender, non- distended. : Deferred. Rectal: Deferred. Skin: Warm, dry. Intact. Extremities: 2+ radial pulses bilaterally. No lower extremity edema. Neuro: Awake, alert, oriented x3. No gross motor or sensory deficits. Cranial nerves II through XII intact. Gait not assessed. laboratory and microbiology Laboratory Tests 01/24/25 05:10 Test 01/24/25 05:10 Range/Units Serum Glucose 183 H 74-106 mg/dL Assessment/Plan Impression: Acute on chronic hypoxic respiratory failure Dependence on supplemental oxygen AE COPD CHF exacerbation Pneumonia Atelectasis Hypomagnesemia Events: Remains on supplemental oxygen, 4 LPM NC Taper O2 as tolerated Continue bronchodilators Continue IV steroids Continue antibiotics Incentive spirometry Diurese w/ Lasix BID Monitor renal function. Monitor electrolytes. Supplement as necessary. Labs and imaging reviewed. Rest of plan as noted below. Plan: Supplemental oxygen Titrate to keep O2 sats above 92%. Continue bronchodilators. Continue antibiotics Continue steroids Incentive spirometry Diurese to euvolemia Monitor renal function. Monitor electrolytes. Supplement as necessary. Monitor ins and outs. GI prophylaxis - Protonix. DVT prophylaxis - Lovenox. Prognosis: Poor given patient's multiple co-morbidities. Rest of plan per hospitalist and other consultants. Thank you, RY Gallagher, for allowing me to participate in this patient's care. Further recommendations will depend on the patient's clinical course. Please do not hesitate to contact me if you have any questions or concerns. This medical document was created using an electronic medical record system with [employer] system. Although these documentations are being carefully reviewed, there may still be some phonetic and typographical changes. The errors are purely typographical, due to imperfection on the software program, and do not reflect any compromise in the patient's medical care. Plan discussed with: Patient, Other (RN) LORENA SOLARES MD Jan 24, 2025 23:50
[2025-01-25] VITALS (16 sets, daily range): BP systolic 116–153; BP diastolic 50–74; PULSE 72–84; RESP 14–18; TEMP 98–98.4; O2SAT 92–100
[2025-01-25 06:23] LABS: Basophils # (auto) 0.1 10 ^3/uL (0-0.2); Basophils % (auto) 0.6 % (0.0-2.0); Eosinophils # (auto) 0 10 ^3/uL (0-0.8); Eosinophils % (auto) 0.1 % (0.0-7.0); Hematocrit 28.4 % (36.0-46.0); Hemoglobin 9.3 g/dL (12.2-16.2); Lymphocytes # (auto) 1.5 10 ^3/uL (0.4-5.4); Lymphocytes % (auto) 10.2 % (10.0-50.0); Mean Corpuscular Hemoglobin 30.6 pg (28.0-32.0); Mean Corpuscular Hgb Conc. 32.6 g/dL (32.0-36.0); Mean Corpuscular Volume 93.7 fL (80.0-100.0); Monocytes # (auto) 0.4 10 ^3/uL (0-1.3); Monocytes % (auto) 2.8 % (0.0-12.0); Neutrophils # (auto) 12.4 10 ^3/uL (1.6-8.6); Neutrophils % (auto) 86.3 % (37.0-80.0); Platelet Count (auto) 283 10^3/uL (140-450); Red Blood Cells 3.03 10^6/uL (4.0-5.20); Red Cell Distribution Width 15.7 % (11.8-14.3); White Blood Cell 14.3 10^3/uL (4.4-10.8)
[2025-01-25 06:37] LABS: Chloride 100 mmol/L (98-107); Potassium 3.6 mmol/L (3.5-5.1); Sodium 140 mmol/L (136-145)
[2025-01-25 06:38] LABS: Anion Gap 12 (5-15); Calcium 9.2 mg/dL (8.7-10.4); Carbon Dioxide 28 mmol/L (20-31)
[2025-01-25 06:43] LABS: BUN/Creatinine Ratio 18.4 (10.0-20.0); Blood Urea Nitrogen 30 mg/dL (9-23); Glucose 147 mg/dL (74-106)
[2025-01-25] MEDS ORDERED: POTA-228 PO (16:19)
[2025-01-25] MEDS ORDERED: FURO40TA4 PO (16:19)
--- NOTE | 2025-01-25 16:21 | DVHDS2 ---
Discharge Summary Date of Admission Jan 23, 2025 at 19:55 Date of Discharge: Jan 25, 2025 Labs/Diagnostic Data: Laboratory Results Test 01/25/25 05:49 01/23/25 20:30 01/23/25 19:38 01/23/25 18:20 White Blood Count 14.3 10^3/uL (4.4-10.8) Red Blood Count 3.03 10^6/uL (4.0-5.20) Hemoglobin 9.3 g/dL (12.2-16.2) Hematocrit 28.4 % (36.0-46.0) Mean Corpuscular Volume 93.7 fL (80.0-100.0) Mean Corpuscular Hemoglobin 30.6 pg (28.0-32.0) Mean Corpuscular Hemoglobin Concent 32.6 g/dL (32.0-36.0) Red Cell Distribution Width 15.7 % (11.8-14.3) Platelet Count 283 10^3/uL (140-450) Mean Platelet Volume 10.2 fL (6.9-10.8) Neutrophils (%) (Auto) 86.3 % (37.0-80.0) Lymphocytes (%) (Auto) 10.2 % (10.0-50.0) Monocytes (%) (Auto) 2.8 % (0.0-12.0) Eosinophils (%) (Auto) 0.1 % (0.0-7.0) Basophils (%) (Auto) 0.6 % (0.0-2.0) Neutrophils # (Auto) 12.4 10 ^3/uL (1.6-8.6) Lymphocytes # (Auto) 1.5 10 ^3/uL (0.4-5.4) Monocytes # (Auto) 0.4 10 ^3/uL (0-1.3) Eosinophils # (Auto) 0 10 ^3/uL (0-0.8) Basophils # (Auto) 0.1 10 ^3/uL (0-0.2) Nucleated Red Blood Cells 0.0 % Sodium Level 140 mmol/L (136-145) Potassium Level 3.6 mmol/L (3.5-5.1) Chloride Level 100 mmol/L (98-107) Carbon Dioxide Level 28 mmol/L (20-31) Anion Gap 12 (5-15) Blood Urea Nitrogen 30 mg/dL (9-23) Creatinine 1.63 mg/dL (0.550-1.02) Glomerular Filtration Rate Calc 37 mL/min (>90) BUN/Creatinine Ratio 18.4 (10.0-20.0) Serum Glucose 147 mg/dL (74-106) Calcium Level 9.2 mg/dL (8.7-10.4) Random Vancomycin Level 12.7 ug/mL (5-10) Troponin I High Sensitivity 4 ng/L (</=34) Lactic Acid Level 1.4 mmol/L (0.4-2.0) Magnesium Level 1.4 mg/dL (1.6-2.6) Urine Color Colorless (Yellow) Urine Clarity Clear (Clear) Urine pH 6.0 (5.0-9.0) Urine Specific [place] 1.006 (1.001-1.035) Urine Protein Negative (Negative) Urine Ketones Negative (Negative) Urine Blood Negative /uL (Negative) Urine Nitrite Negative (Negative) Urine Bilirubin Negative (Negative) Urine Urobilinogen Normal mg/dL (Negative) Urine Leukocyte Esterase Negative /uL (Negative) Urine RBC <1 /hpf (0 - 4) Urine Microscopic WBC < 1 /HPF (0-5) Urine Squamous Epithelial Cells None seen /hpf (<5) Urine Bacteria None seen /hpf (None Seen) Urine Glucose Normal mg/dL (Normal) Test 01/23/25 16:07 01/23/25 15:25 Blood Gas Specimen Type Arterial Blood Gas Sample Site Right radial Blood Gas Patient Temperature 37.0 Arterial Blood Date Drawn [id number] Arterial Blood pH 7.405 (7.350-7.450) Arterial Blood Partial Pressure CO2 44.1 mmHg (32.0-45.0) Arterial Blood Partial Pressure O2 73.0 mmHg (83.0-108.0) Arterial Blood HCO3 27.0 mmol/L (21.0-28.0) Arterial Blood Oxygen Saturation 93.6 % (94.0-98.0) Arterial Blood Base Excess 2.0 mmol/L (-2.0-3.0) Arterial Blood Oxyhemoglobin 92.9 % (94.0-98.0) Arterial Blood Carboxyhemoglobin 0.5 % (0.5-1.5) Arterial Blood Methemoglobin 0.3 % (0.0-1.5) Elfego Test Yes Blood Gas Total Hemoglobin 10.20 g/dL (12.0-16.0) Blood Gas Modality Mask - bipap Blood Gas Spontaneous Rate 31 FiO2 % 75.0 Blood Gas EPAP 5 Blood Gas IPAP 14 Total Bilirubin 0.5 mg/dL (0.2-1.0) Aspartate Amino Transferase (AST) 63 U/L (13-40) Alanine Aminotransferase (ALT) 32 U/L (7-40) Alkaline Phosphatase 75 U/L (46-116) B-Type Natriuretic Peptide 501.78 pg/mL (0-100) Total Protein 6.4 g/dL (5.7-8.2) Albumin 4.2 g/dL (3.2-4.8) Other Laboratory Tests 01/25/25 05:49 Brief Hx & Hospital Course: Mrs. Steve Penaloza is a 54 year old female with a history of Asthma, COPD supplemental home 02 dependent, CHF, Atrial fibrillation, Crohn's disease, hyperlipidemia, hypertension, chronic kidney disease who presents with chief complaint of SOB. Patient reports that she has been experiencing SOB with associated body pain for the past 2 days. Patient reports pleuritic chest tightness, denies chest pain, nausea, vomiting, fevers, chills. Patient CXR: multifocal pneumonia. Patient admitted for further evaluation and treatment. She is admitted and treated for her CHF and COPD exacerbation. Once again patient is educated regarding her heart failure and being compliant with the her Lasix as well as oral fluid restriction. Patient apparently drinks about 3 L of oral fluids therefore she was advised to cut it down to 1200 mL per day. She was also advised to check her weight daily and if she gains more than 2-3 lb weight in weak advised to take extra dose of Lasix and notify her primary medical doctor. Meantime she was also advised to increase her Lasix to twice a day. Otherwise while in the hospital patient received IV diuresis breathing treatments supportive care and treatment. Her symptoms have significantly improved. She is now on 2 L of oxygen via nasal cannula oxygenating about 95%. Apparently at baseline at home she was on 4 L. I advised the patient to continue 2 L of home oxygen and to be compliant with the her diet exercise, fluid restriction and diuretics. I have talked with the patient regarding heart failure, rest of her hospital diagnosis, treatment she received, discharge medications, discharge instructions and follow-up plan of care along with the nurse at bedside. She has verbalized understanding of these and agree with care plan as outlined. Condition at Discharge: Stable Final Diagnosis/Problems List CHF exacerbation, COPD on home oxygen Discharge Disposition: Home Discharge Instruct/Medications Diet: Consistent carbohydrate, Cardiac 2g Na,low cholest Diet comment: To limit your total oral fluid intake to 1200 mL per 24 hours. Low-salt diet. Activity: No Restrictions, As Tolerated Follow Up/Referral: Primary care physician next week for heart failure management Medications: Take medications as prescribed New Medications: Furosemide (Furosemide) 40 Mg Tab 1 TAB PO BID, #90 TAB Potassium Chloride (Potassium Chloride ER) 10 Meq Tab 10 MEQ PO DAILY, #30 TAB Continued Medications: Acetaminophen (Acetaminophen) 650 Mg Sup 650 MG RE Q6HP PRN for TEMP GREATER THAN 100, SUPP Albuterol Sulfate (Albuterol Sulfate Hfa) 108 Mcg/Act Aer 2.5 MG IN QID, AER Alprazolam (Alprazolam) 0.25 Mg Tab 0.25 MG PO TIDPRN PRN for ANXIETY, TAB Amiodarone Hcl (Amiodarone Hcl) 200 Mg Tab 1 TAB PO DAILY, #30 TAB Apixaban Base (Eliquis) 5 Mg Tab 5 MG PO BID, #90 TAB Apixaban Base (Eliquis) 5 Mg Tab 5 MG PO BID for A FIB, TAB Atorvastatin Calcium (Atorvastatin Calcium) 20 Mg Tab 1 TAB PO DAILY for cholesterol, #30 TAB 5 Refills Bisacodyl (Bisacodyl) 10 Mg Sup 10 MG RE NO BM FOR 3 DAYS for BOWEL MANAGEMENT, SUPP Cholecalciferol (Vitamin D3) 2,000 Unit Tab 1 TAB PO DAILY for SUPPLEMENT, #30 TAB 5 Refills Clonidine Hydrochloride (Clonidine Hcl) 0.1 Mg Tab 0.1 MG PO BID for bp>150 for 30 Days, MG Doxepin Hcl (Doxepin Hcl) 25 Mg Cap 3 CAP PO QPM for INSOMNIA, #30 CAP 1 Refill Estradiol (Estradiol) 1 Mg Tab 1 MG PO DAILY for VAGINAL DRYNESS, MG Fluticasone Propionate (Fluticasone Propionate Hf) 110 Mcg/Act Aer 110 MCG IN BID for COPD, AER Hydroxyzine Hcl (Hydroxyzine Hcl) 25 Mg Tab 25 MG PO Q6HP PRN for N&V, MG Hyoscyamine Sulfate (Levsin) 0.125 Mg Tab 1 TAB PO Q4HPRN PRN for increased secretions, #120 TAB 5 Refills Ibuprofen (Ibuprofen) 800 Mg Tab 800 MG PO DAILYP PRN for PAIN SCALE 1 THRU 6, MG Ipratropium-Albuterol (Ipratropium [place]/Albut) 1 Jazmyne Jazmyne 1 JAZMYNE IN Q4HP PRN for SHORTNESS OF BREATH, ML Lactobacillus (Probiotic) Cap 1 CAP PO DAILY for SUPPLEMENT, CAP Metoprolol Succinate (Metoprolol Succinate Er) 200 Mg Tab 200 MG PO DAILY for htn, TAB Nystatin-Triamcinolone (Mycolog) 1 Applic Ap 1 APPLIC TOP BID for FUNGAL RASH, #15 GRAMS 1 Refill Pantoprazole Sodium Sesquihydr (Pantoprazole Sodium) 40 Mg Tab 40 MG PO DAILY, TAB Prazosin Hcl (Minipres) 1 Mg Cp 4 MG PO QPM for [place], CAP Rosuvastatin Calcium (Crestor) 40 Mg Tab 40 MG PO DAILY, TAB Sertraline Hcl (Sertraline Hcl) 100 Mg Tab 2 TAB PO DAILY for PTSD, #90 TAB 1 Refill Tizanidine Hydrochloride (Zanaflex) 4 Mg Cap 1 CAP PO QPM, #30 CAP Discontinued Medications: Nifedipine (Nifedipine Er) 90 Mg Tab 1 TAB PO DAILY for HOLD IF SBP<100, #30 TAB 5 Refills Prazosin Hcl (Minipres) 1 Mg Cp 2 MG PO QAM for [place], CAP Tizanidine Hydrochloride (Zanaflex) 4 Mg Tab 2 MG PO Q8HR, TAB Tizanidine Hydrochloride (Zanaflex) 4 Mg Tab 2 MG PO BID for MUSCLE SPASMS, TAB Discharge Statement: "Patient was advised to return to the ER or call 911 if any headaches, dizziness, shortness of breath, chest pain, abdominal pain, bleeding, fevers, or worsening of medical condition. Patient was counseled about treatment plan, medications, possible side effects, patientverbalized understanding. All questions were answered to the best of my ability. This discharge took greater then 30 minutes in planning, reviewing documentation, counseling the patient, and discussing with other team members." ASSESSMENT ASSESSMENT Assessment CHF exacerbation, COPD on home oxygen MEENU LINDER MD Jan 25, 2025 16:20
[2025-01-25] MEDS: DexAMETHasone SOD PHOS 4 MG/1ML SDV INJ IV SCH (16:29)
[2025-01-25] MEDS: VANCOMYCIN 750MG KIT 100 ML IV ONE (17:11)
--- NOTE | 2025-01-25 19:31 | DVHPN2 ---
Progress Note - Dictate Date Seen: Jan 25, 2025 Medical Necessity Reason Pt with a Central, PICC or Fol: No Subjective Patient seen and examined at bedside. Remains on supplemental oxygen Overnight events reviewed. vital signs Vital Sign Date Time Temp Pulse Resp B/P (MAP) Pulse Ox O2 Delivery O2 Flow Rate FiO2 01/25/25 17:48 98.0 82 18 96 01/25/25 17:00 153/69 (97) 01/25/25 10:00 Nasal Cannula 5.0 01/25/25 10:00 40 Total Intake and Output 01/24/25 01/24/25 01/25/25 15:00 23:00 07:00 Intake Total 100 ml 400 ml Output Total 1600 ml Balance 100 ml -1600 ml 400 ml objective Gen.: Patient lying in bed in no apparent distress. On supplemental oxygen. Head: Normocephalic, atraumatic. Eyes: EOMI/PERRLA. Ears: Normal hearing. Normal anatomy. Neck/trachea: Trachea midline, supple. Nose: Normal external anatomy. Mouth: Moist mucous membranes. Chest: Decreased air entry bilaterally. No wheezing or rhonchi. Cardiovascular: Positive S1, positive S2. Regular rate and rhythm. Abdomen: Positive bowel sounds in all 4 quadrants. Soft, non-tender, non- distended. : Deferred. Rectal: Deferred. Skin: Warm, dry. Intact. Extremities: 2+ radial pulses bilaterally. No lower extremity edema. Neuro: Awake, alert, oriented x3. No gross motor or sensory deficits. Cranial nerves II through XII intact. Gait not assessed. laboratory and microbiology Laboratory Tests 01/25/25 05:49 Test 01/25/25 05:49 Range/Units Serum Glucose 147 H 74-106 mg/dL Assessment/Plan Impression: Acute on chronic hypoxic respiratory failure Dependence on supplemental oxygen AE COPD CHF exacerbation Pneumonia Atelectasis Hypomagnesemia Events: Remains on supplemental oxygen, 2 LPM NC Taper O2 as tolerated Improving O2 requirements Continue bronchodilators Continue steroids Continue antibiotics Incentive spirometry Diurese w/ Lasix BID Monitor renal function. Monitor electrolytes. Supplement as necessary. Remove Engel catheter. Labs and imaging reviewed. Rest of plan as noted below. Plan: Supplemental oxygen Titrate to keep O2 sats above 92%. Continue bronchodilators. Continue antibiotics Continue steroids Incentive spirometry Diurese to euvolemia Monitor renal function. Monitor electrolytes. Supplement as necessary. Monitor ins and outs. GI prophylaxis - Protonix. DVT prophylaxis - Lovenox. Prognosis: Poor given patient's multiple co-morbidities. Rest of plan per hospitalist and other consultants. Thank you, RY Gallagher, for allowing me to participate in this patient's care. Further recommendations will depend on the patient's clinical course. Please do not hesitate to contact me if you have any questions or concerns. This medical document was created using an electronic medical record system with [employer]ation system. Although these documentations are being carefully reviewed, there may still be some phonetic and typographical changes. The errors are purely typographical, due to imperfection on the software program, and do not reflect any compromise in the patient's medical care. Plan discussed with: Patient, Other (NANCY Campos) LORENA SOLARES MD Jan 25, 2025 19:31
== END 2025-01-25 18:45 | disposition home or self-care (01) | DRG 720 ==
LOC: ER 14:49 → EDBD 14:49 → OVERFLOW 19:55 → TELE-WESTW 01-24 17:09
PROVIDERS: ADMIT Nurse Practitioner Family; ATTEND Nurse Practitioner Family
PROC: 5A09357 Assistance with Respiratory Ventilation, Less than 24 Consecutive Hours, Continuous Positive Airway Pressure (ICD-10-PCS; principal; 2025-01-23)
DX: A41.50 Gram-negative sepsis, unspecified (principal); J96.21 Acute and chronic respiratory failure with hypoxia; I50.33 Acute on chronic diastolic (congestive) heart failure; J15.69 Pneumonia due to other Gram-negative bacteria; I13.0 Hypertensive heart and chronic kidney disease with heart failure and stage 1 through stage 4 chronic kidney disease, or unspecified chronic kidney disease; E11.22 Type 2 diabetes mellitus with diabetic chronic kidney disease; Z99.81 Dependence on supplemental oxygen; I48.91 Unspecified atrial fibrillation; J44.1 Chronic obstructive pulmonary disease with (acute) exacerbation; J44.0 Chronic obstructive pulmonary disease with (acute) lower respiratory infection; N18.9 Chronic kidney disease, unspecified; F10.20 Alcohol dependence, uncomplicated; E78.00 Pure hypercholesterolemia, unspecified; K50.90 Crohn's disease, unspecified, without complications; E83.42 Hypomagnesemia; Z87.891 Personal history of nicotine dependence; Z85.43 Personal history of malignant neoplasm of ovary; Z83.3 Family history of diabetes mellitus; Z82.49 Family history of ischemic heart disease and other diseases of the circulatory system; Z85.9 Personal history of malignant neoplasm, unspecified; Z88.8 Allergy status to other drugs, medicaments and biological substances; Z87.440 Personal history of urinary (tract) infections
CPT/HCPCS: 36415; 36600; 71045; 80048; 80053; 80202; 81001; 82805; 83605; 83735; 83880; 84132; 84484; 85025; 87040; 93005; 94640; 94660; 96365; 96375; 99291; G0378; J0692; J1100; J1885; J1956; J2470

== ENCOUNTER 2025-03-26 11:04 | Day surgery (SDC) | payer MEDICAID ==
[~2025-03-26] VITALS: Ht 165.1 cm; Wt 102.1 kg
[2025-03-26] VITALS (13 sets, daily range): BP systolic 95–162; BP diastolic 34–88; PULSE 53–76; RESP 11–20; O2SAT 95–99
[2025-03-26] MEDS: POTASSIUM CHL 20 Meq TABLET PO ONE ×3 (10:15→12:06)
[~2025-03-26 11:04] MED LIST changes: -ACET650S12 RE; -ALPR0.254 PO; +ALPR0.5T7 PO; -ATOR20TA50 PO; -FLUT110A8 IN; +FURO40TA4 PO; +METO-289 PO; -METO200T42 PO; -NIFE90TA75 PO; +POTA-228 PO; -TIZA4TAB9 PO
[2025-03-26] MEDS ORDERED: ONDANSETRON HCL 4 MG/2 ML VIAL IV ONE (11:30)
[2025-03-26] MEDS: LIDOCAINE VISCOUS 2% 15ML UD PO ONE (13:57)
[2025-03-26] MEDS: MIDAZOLAM HCL 2MG/2ML 2ml VIAL (1mg/ml) IV ONE ×2 (14:01→14:16)
[2025-03-26] MEDS: fentaNYL CITRATE 100 MCG/2 ML VL IV ONE ×2 (14:03→14:16)
[2025-03-26] MEDS: MIDAZOLAM HCL 2MG/2ML 2ml VIAL (1mg/ml) ONE (14:19)
[2025-03-26] MEDS: fentaNYL CITRATE 100 MCG/2 ML VL ONE (14:19)
--- NOTE | 2025-03-26 19:29 | DVHOP2 ---
Operative Report - 2 Report Details Date: 03/26/25 Preop Diagnosis: Aortic insufficiency Postop Diagnosis: s/p EBENEZER Surgeon: Elena Miller MD Anesthesiologist: Conscious sedation Anesthesia: Mac Consent: The patient was informed of the risks and benefits of the procedure. These include but are not limited to complications of anesthesia, postoperative infection, incomplete relief of symptoms, recurrence of symptoms, damage to blood vessels, nerves and tendons, deep venous thrombosis, pulmonary embolism and possible need for repeat surgery in the future. Complications: No complications Findings: Severe aortic insufficiency Indications for Surgery: Shortness of breath Name of Procedure Performed Transesophageal echocardiogram Procedure Details Procedure Details: Prior full informed consent obtained the patient was prepped and draped in usual fashion. She was placed in left lateral and semi-Milton position. Lidocaine gel was given for gargling. Versed and fentanyl were given intravenously for conscious sedation. Transesophageal probe was passed without difficulty. Standard views obtained Conclusions 1.: Technically good study. Sinus rhythm. 2.: Concentric LVH with left atrial enlargement. Mild dilation of the aortic sinuses and the aortic valve. 3.: The valves appear to be structurally normal without intrinsic defects. 4.: Left ventricular systolic performance is preserved at 60% with normal right ventricular function. 5.: Doppler reveals severe aortic insufficiency with moderate mitral insufficiency. Moderate tricuspid regurgitation. 6.: No intracardiac masses thrombi and/or vegetations discernible. No intra- atrial defects and/or shunting present. Condition Good Disposition Home Date of Service: Mar 26, 2025 Billing Provider: ELENA MILLER Sr., MD Cardiology Common Codes: 40325-KLKVQHA INP/OBS CARE (High) Cardiology Procedure Codes: 07572-CYM W/IMG DOC INCL PROB ACQ ELENA MILLER Sr., MD Mar 26, 2025 19:29
== END 2025-03-26 15:25 | disposition home or self-care (01) ==
LOC: CATH 11:04
PROVIDERS: ATTEND Internal Medicine
DX: I08.3 Combined rheumatic disorders of mitral, aortic and tricuspid valves (principal); R06.02 Shortness of breath; I48.0 Paroxysmal atrial fibrillation; I10 Essential (primary) hypertension; E78.5 Hyperlipidemia, unspecified; J45.909 Unspecified asthma, uncomplicated; E66.9 Obesity, unspecified; Z68.36 Body mass index [BMI] 36.0-36.9, adult; F32.A Depression, unspecified; K21.9 Gastro-esophageal reflux disease without esophagitis; Z79.899 Other long term (current) drug therapy; Z79.01 Long term (current) use of anticoagulants; Z98.890 Other specified postprocedural states
CPT/HCPCS: 93312; J2250; J3010; 99152

== ENCOUNTER 2025-04-25 15:21 | Inpatient (IN) | payer MEDICAID, OTHER ==
[~2025-04-25] VITALS: Ht 165.1 cm; Wt 108.2 kg
--- NOTE | 2025-04-25 15:35 | ED.PDOC ---
History of Present Illness HPI Comments 54-year-old female brought by paramedics because of dizziness and frequent falls. She is unable to ambulate for the past few days. She did fall few hours prior to calling the paramedics today. Her blood pressure on arrival as per paramedics were 60/42. She is on Eliquis. She is complaining of headache neck pain. Difficult to get history from the patient. She does state that she has mitral valve disease. Denies any other symptoms. 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 History Social History Smoker: Non-Smoker Alcohol: Denies ETOH Use Drugs: Denies Drug Use Constitutional: denies: chills, diaphoresis, fatigue, fever, malaise, sweats, weakness, others EENTM: denies: blurred vision, double vision, ear bleeding, ear discharge, ear drainage, ear pain, ear ringing, eye pain, eye redness, hearing loss, mouth pain, mouth swelling, nasal discharge, nose bleeding, nose congestion, nose pain, photophobia, tearing, throat pain, throat swelling, voice changes, others Respiratory: denies: cough, hemoptysis, orthopnea, SOB at rest, shortness of breath, SOB with excertion, stridor, wheezing, others Cardiovascular: denies: chest pain, dizzy spells, diaphoresis, Dyspnea on exertion, edema, irregular heart beat, left arm pain, lightheadedness, pal pitations, PND, syncope, others Gastrointestinal: denies: abdomen distended, abdominal pain, blood streaked bowels, constipated, diarrhea, dysphagia, difficulty swallowing, hematemesis, melena, nausea, poor appetite, poor fluid intake, rectal bleeding, rectal pain, vomiting, others Genitourinary: denies: abnormal vagina bleeding, burning, dyspareunia, dysuria, flank pain, frequency, hematuria, incontinence, pain, , vagina discharge, urgency, others Neurological: reports: dizziness; denies: fainting, headache, left sided numbness, left sided weakness, numbness, paresthesia, pre-existing deficit, right sided numbness, right sided weakness, seizure, speech problems, tingling, tremors, weakness, others Musculoskeletal: reports: joint pain (Cervical); denies: back pain, gout, joint swelling, muscle pain, muscle stiffness, neck pain, others Integumetry: denies: bruises, change in color, change in hair/nails, dryness, laceration, lesions, lumps, rash, wounds, others Allergic/Immunocompromised: denies: Difficulty Healing, Frequent Infections, Hives, Itching, others Hematologic/Lymphatic: denies: anemia, blood clots, easy bleeding, easy bruising, swollen glands, others Endocrine: denies: excessive hunger, excessive sweating, excessive thirst, excessive urination, flushing, intolerance to cold, intolerance to heat, unexplained weight gain, unexplained weight loss, others Psychiatric: denies: anxiety, bipolar disorder, depression, hopeless, panic disorder, schizophrenia, sleepless, suicidal, others Physical Exam General Appearance: Moderate Distress HEENT: Normal ENT Inspection, Pharynx Normal, TMs Normal Neck: Full Range of Motion, Non-Tender, Normal, Normal Inspection Respiratory: Chest Non-Tender, Lungs Clear, No Accessory Muscle Use, No Respiratory Distress, Normal Breath Sounds Cardiovascular: No Edema, No JVD, No Murmur, No Gallop, Normal Peripheral Pulses, Regular Rate/Rhythm Breast Exam: Deferred Gastrointestinal: No Organomegaly, Non Tender, No Pulsatile Mass, Normal Bowel Sounds, Soft Genitalia: Deferred Pelvic: Deferred Rectal: Deferred Extremities: No calf tenderness, Normal capillary refill, Normal inspection, Normal range of motion, Non-tender, No pedal edema Musculoskeletal : Apperance: Normal Neurologic: Alert Cerebellar Function: NOT DONE Reflexes: NOT DONE Skin: Bruises (Forehead) Peripheral Pulses: 3+ Radial (R), 3+ Radial (L) Lymphatic: No Adenopathy Was a procedure done? Was a procedure done?: No EKG EKG : Pulse Rate (adult): 61 Cardiac Rhythm: NSR Differential Dx Considerations may include: Head injury Electrolyte imbalance X-Ray, Labs, Meds, VS Vital Signs Date Time Temp Pulse Resp B/P (MAP) Pulse Ox O2 Delivery O2 Flow Rate FiO2 7/20/25 16:16 97.6 63 16 88/41 (57) 100 97.6 04/25/25 16:16 63 16 100 Nasal Cannula* 4 36 04/25/25 16:00 63 04/25/25 15:34 61 04/25/25 15:32 61 04/25/25 15:26 98.7 60 18 60/42 (48) 98 98.7 72/40 (51) Lab Test 04/25/25 16:06 Range/Units White Blood Count 15.8 H 4.4-10.8 10^3/uL Red Blood Count 3.37 L 4.0-5.20 10^6/uL Hemoglobin 9.0 L 12.2-16.2 g/dL Hematocrit 27.6 L 36.0-46.0 % Mean Corpuscular Volume 81.9 80.0-100.0 fL Mean Corpuscular Hemoglobin 26.6 L 28.0-32.0 pg Mean Corpuscular Hemoglobin Concent 32.5 32.0-36.0 g/dL Red Cell Distribution Width 17.1 H 11.8-14.3 % Platelet Count 232 140-450 10^3/uL Mean Platelet Volume 9.4 6.9-10.8 fL Neutrophils (%) (Auto) 82.5 H 37.0-80.0 % Lymphocytes (%) (Auto) 12.6 10.0-50.0 % Monocytes (%) (Auto) 4.7 0.0-12.0 % Eosinophils (%) (Auto) 0.0 0.0-7.0 % Basophils (%) (Auto) 0.2 0.0-2.0 % Neutrophils # (Auto) 13.0 H 1.6-8.6 10 ^3/uL Lymphocytes # (Auto) 2.0 0.4-5.4 10 ^3/uL Monocytes # (Auto) 0.7 0-1.3 10 ^3/uL Eosinophils # (Auto) 0 0-0.8 10 ^3/uL Basophils # (Auto) 0 0-0.2 10 ^3/uL Nucleated Red Blood Cells 0.1 % Prothrombin Time 12.1 H 9.3-11.8 sec Prothrombin Time INR 1.16 H 0.9-1.15 Activated Partial Thromboplast Time 32.5 24.5-34.5 SEC Sodium Level 135 L 136-145 mmol/L Potassium Level 2.4 *L 3.5-5.1 mmol/L Chloride Level 97 L 98-107 mmol/L Carbon Dioxide Level 25 20-31 mmol/L Anion Gap 13 5-15 Blood Urea Nitrogen 45 H 9-23 mg/dL Creatinine 3.71 H 0.550-1.02 mg/dL Glomerular Filtration Rate Calc 14 >90 mL/min BUN/Creatinine Ratio 12.1 10.0-20.0 Serum Glucose 165 H 74-106 mg/dL Lactic Acid Level 1.6 0.4-2.0 mmol/L Calcium Level 8.2 L 8.7-10.4 mg/dL Total Bilirubin 0.4 0.2-1.0 mg/dL Aspartate Amino Transferase (AST) 48 H 13-40 U/L Alanine Aminotransferase (ALT) 19 7-40 U/L Alkaline Phosphatase 39 L 46-116 U/L Total Protein 5.1 L 5.7-8.2 g/dL Albumin 3.1 L 3.2-4.8 g/dL Current Medications Medications (Trade) Dose Ordered Sig/Bárbara Route Start Time Stop Time Status Last Admin Vancomycin HCl 200 ml @ 200 mls/hr ONCE ONCE IV 04/25/25 15:45 04/25/25 16:44 DC 04/25/25 16:26 Sodium Chloride 1,000 ml @ 1,000 mls/hr Q1H ONCE IV 04/25/25 15:45 04/25/25 16:44 DC 04/25/25 15:51 Patient alert. Complaining of dizziness. Recently fell hit her head. Answering questions. Blood pressure is low. Establish intravenous access. Was given fluids. EKG reviewed does not show any acute changes. Potassium is low. Was given potassium. Blood sugar elevated. Acute tubular necrosis. Continue to monitor. Time of 1ST Reevaluation: 15:31 Reevaluation 1ST: Unchanged Patient Education/Counseling: Diagnosis, Treatment, Prognosis Family Education/Counseling: No Family Present SEPSIS Sepsis Screen Physician Orders Head Without Contrast (04/25/25 15:35) Urinalysis (04/25/25 15:35) Chest Portable (04/25/25 15:35) Accucheck (04/25/25 15:35) Blood Culture (04/25/25 15:35) Cefepime 1gm/ 50ml (Maxipime 1gm/50ml) (04/25/25 22:00) Notify Md If Map <65 Or Bp<90 (04/25/25 15:35) If Map<65 Start Vasopressor (04/25/25 15:35) Sepsis Reassesment After Fluid (04/25/25 16:35) Sodium Chloride 0.9% (04/25/25 15:45) Cervical Without Contrast (04/25/25 16:31) Potassium Chl 20meq/100ml (04/25/25 17:00) Sodium Chloride 0.9% (04/25/25 17:15) Vital Signs Date Time Temp Pulse Resp B/P (MAP) Pulse Ox O2 Delivery O2 Flow Rate FiO2 04/25/25 16:16 97.6 63 16 88/41 (57) 100 97.6 04/25/25 16:16 63 16 100 Nasal Cannula* 4 36 04/25/25 16:00 63 04/25/25 15:34 61 04/25/25 15:32 61 04/25/25 15:26 98.7 60 18 60/42 (48) 98 98.7 72/40 (51) Laboratory Tests Test 04/25/25 16:06 Lactic Acid Level 1.6 mmol/L (0.4-2.0) White Blood Count 15.8 10^3/uL (4.4-10.8) H Medications Medications Dose Ordered Sig/Bárbara Route Start Time Stop Time Status Last Admin Dose Admin Sodium Chloride 1,000 ml @ 1,000 mls/hr Q1H ONCE IV 04/25/25 15:45 04/25/25 16:44 DC 04/25/25 15:51 Vancomycin HCl 200 ml @ 200 mls/hr ONCE ONCE IV 04/25/25 15:45 04/25/25 16:44 DC 04/25/25 16:26 Departure 1 Departure Time of Disposition: 15:33 Impression: Primary Impression: Hypotension Qualified Codes: I95.9 - Hypotension, unspecified Additional Impressions: Head injury Qualified Codes: S09.90XA - Unspecified injury of head, initial encounter Hypokalemia Sepsis Qualified Codes: A41.9 - Sepsis, unspecified organism ATN (acute tubular necrosis) Uncontrolled diabetes mellitus Qualified Codes: E13.65 - Other specified diabetes mellitus with hyperglycemia Disposition: 09 ADMITTED INPATIENT Admit to: Med Surg Condition: Guarded Critical Care Note Critical Care Time?: Yes (90 min-critical care time only) Critical care comment: Hypotension Stability Stability form required: No Heart Score Heart Score: Heart Score Response (Comments) Value History Slightly Suspicious 0 EKG Normal 0 Age 45-64 1 Risk Factors >3 or Hx ASHD 2 Troponin Normal limit 0 Total 3 PAPA BOX MD Apr 25, 2025 15:34
--- NOTE | 2025-04-25 15:38 | ECG ---
[facility] Test Date: 2025-04-25 Test Time: 15:32:49 Pat Name: HATTIE LOUSI Department: ED Room: 0291T Gender: F Train Inspector: WENDY : 1970 Requested By: PAPA BOX Order Number: [id number] Reading MD: Guilherme Miller Measurements Intervals [place] Rate: 61 P: 64 CA: 202 QRS: 81 QRSD: 103 T: 63 QT: 591 QTc: 596 Interpretive Statements Sinus rhythm Borderline prolonged CA interval Low voltage, precordial leads Minimal ST depression, diffuse leads Prolonged QT interval Electronically Signed On 04-28-2025 15:54:08 PDT by Guilherme Miller Please click the below link to view image of tracing.
[2025-04-25] MEDS: SODIUM CHLORIDE 0.9% 1,000 ML IV ONE ×3 (15:51→18:40)
[2025-04-25 16:16] VITALS: PULSE 63; RESP 16; O2SAT 100
[2025-04-25] MEDS: VANCOMYCIN 1GM/200ML PM 200 ML IV ONE (16:26)
--- NOTE | 2025-04-25 16:28 | DVH ---
CHEST RADIOGRAPH Indication: sob Technique: Single frontal view of the chest was obtained COMPARISON: None FINDINGS: Lines and Tubes: None Lungs: Low lung volumes. Increased interstitial prominence. Pleura: No effusion. No pneumothorax. Cardiomediastinal contours: Unremarkable Bones: Unremarkable IMPRESSION: Low lung volumes. Pulmonary vascular congestion versus viral pneumonia.
[2025-04-25 16:40] LABS: Hematocrit 27.6 % (36.0-46.0); Hemoglobin 9.0 g/dL (12.2-16.2); Mean Corpuscular Hemoglobin 26.6 pg (28.0-32.0); Mean Corpuscular Volume 81.9 fL (80.0-100.0); Nucleated Red Blood Cells % 0.1 %
[2025-04-25 16:47] LABS: INR 1.16 (0.9-1.15); Partial Thromboplastin Time 32.5 SEC (24.5-34.5); Prothrombin Time 12.1 sec (9.3-11.8)
[2025-04-25 16:48] LABS: Alanine Aminotransferase 19 U/L (7-40); Anion Gap 13 (5-15); BUN/Creatinine Ratio 12.1 (10.0-20.0); Bilirubin, Total 0.4 mg/dL (0.2-1.0); Carbon Dioxide 25 mmol/L (20-31)
[2025-04-25 16:49] LABS: Alkaline Phosphatase 39 U/L (46-116); Blood Urea Nitrogen 45 mg/dL (9-23); Calcium 8.2 mg/dL (8.7-10.4); Chloride 97 mmol/L (98-107); Glucose 165 mg/dL (74-106); Sodium 135 mmol/L (136-145)
[2025-04-25 16:50] LABS: Albumin 3.1 g/dL (3.2-4.8); Total Protein 5.1 g/dL (5.7-8.2)
[2025-04-25 16:53] LABS: Potassium 2.4 mmol/L (3.5-5.1)
[2025-04-25] MEDS: POTASSIUM CHL 20MEQ/100ML 100 ML IV ONE (17:37)
[2025-04-25 18:25] LABS: Urine Protein, UAD TRACE (Negative); Urine WBC Clumps PRESENT /hpf (None Seen)
[2025-04-25] MEDS: CEFEPIME 1GM/ 50ML 50 ML IV ONE (18:30)
[2025-04-25] MEDS ORDERED: CEFEPIME 1GM/ 50ML 50 ML IV SCH (20:00)
[2025-04-25] MEDS: CEFEPIME 1GM/ 50ML 50 ML IV SCH (21:01)
--- NOTE | 2025-04-25 21:10 | DVH ---
EXAM: CT HEAD WITHOUT CONTRAST INDICATION: fall TECHNIQUE: CT of the head without intravenous contrast. Radiation Dose : 1. Head: CT Dose: CTDI volume is 52.98 mGy. Dose-length product is 849.40 mGy*cm The dose indicators for CT are the volume Computed Tomography (CT) Dose Index (CTDIvol) and the Dose Length Product (DLP), and are measured in units of mGy and mGy-cm, respectively. These indicators are not patient dose, but values generated from the CT scanner acquisition factors. The report includes radiation exposure data for exposures received during this examination. COMPARISON: None FINDINGS: There is no evidence of acute intracranial hemorrhage, extra-axial collection, mass effect, midline s hift, herniation or hydrocephalus. Chronic appearing lacunar infarct within the inferior right external capsule. The ventricles, sulci and cisterns are age appropriate. The carbajal-white differentiation is intact. The visualized paranasal sinuses and mastoid air cells are clear. The surrounding soft tissues and osseous structures are unremarkable. IMPRESSION: 1. No acute intracranial abnormality. 2. Chronic appearing infarct within the inferior right external capsule. Radiation optimization: All CT scans at this facility use at least one of these dose optimization shefali hniques: automated exposure control mA and/or kV adjustment per patient size (includes targeted exam s where dose is matched to clinical indication) or iterative reconstruction.
--- NOTE | 2025-04-25 21:36 | DVH ---
CT OF THE CERVICAL SPINE WITHOUT CONTRAST HISTORY: FALL COMPARISON: None TECHNIQUE: Helical images through the cervical spine were obtained without contrast. Sagittal and cor onal reformats were obtained. One or more of the following radiation dose reduction techniques were u sed for this examination: automated exposure control, adjustment of the mA and/or kV according to pat ient size, use of iterative reconstruction technique. FINDINGS: No grossly displaced fractures or subluxations identified. Alignment is relatively preserved. Verteb ral body heights are maintained. Degenerative changes at C5-C6 which causes mild narrowing of the [place] spinal canal. Prevertebral soft tissues appear within normal limits. IMPRESSION: No displaced fractures or subluxations identified.
[2025-04-25 23:01] VITALS: PULSE 64; RESP 12; O2SAT 100
--- NOTE | 2025-04-25 23:21 | DVHHP2 ---
History of Present Illness History of Present Illness Patient is 54 years old female with past medical history of HFpEF, atrial fibrillation, asthma, COPD on home oxygen 4 L/min, CKD, fibromyalgia, Crohn's disease, rheumatoid arthritis was brought in by EMS due to recurrent fall and and syncope. As per patient she had a fall today and also she passed out when she was trying to go back from restroom to the bed. Patient reported hitting her head and complaining of neck pain. As per patient she has been feeling dizzy for a while and also has been having frequent fall almost every day due to weakness and fatigue . On further inquiry patient also reported feeling short of breath on exertion. Patient also reported dysuria, increased frequency and urgency of micturition for last 1 week. due to fall and syncope EMS was called today and on arrival of EMS blood pressure was 60/42. Previous record revealed on 03/26/2025 EBENEZER - Concentric LVH with left atrial enlargement. LVEF 60%, severe aortic insufficiency with moderate mitral insufficiency. Moderate tricuspid regurgitation. Patient denied any fever, acute diarrhea, hematuria, hemoptysis or hematemesis, acute joint redness. Initial lab workup revealed leukocytosis with WBC 15.8, hemoglobin 9.0, RDW 17.1, neutrophil 82.5, potassium 2.4, serum creatinine 3.71, blood sugar 165, AST 48, ALT 19, alkaline phosphatase 39, urinalysis revealed leukocyte esterase 3+, WBC 345, bacteria many. Chest x-ray Pulmonary vascular congestion versus viral pneumonia. CT cervical spine- Pulmonary vascular congestion versus viral pneumonia. CT head- No acute intracranial abnormality. Chronic appearing infarct within the inferior right external capsule. Carotid Doppler- Atherosclerotic vascular disease with no hemodynamically significant stenosis. Any narrowing is less than 50%. Past Medical History CHF, COPD on home oxygen 4 L/min, CKD, asthma, fibromyalgia, mitral valve and tricuspid valve disease, Crohn's disease, rheumatoid arthritis Past Surgical History Back surgery, hysterectomy Past Social History Occasional alcoholic, ex vaping, use marijuana, lives with the family Review of Systems Review of Systems Allergy- azithromycin, ondansetron Patient was seen today at the bedside. Cardiovascular- deny acute chest pain or cough or palpitation Gastrointestinal- denies any rectal bleeding, nausea or vomiting Musculoskeletal-generalized muscle weakness Neurological- denies acute dysarthria, dysphagia, Psychiatry- denies depression or SI or HI Skin- denies acute rash or purpura Allergies: Coded Allergies: Azithromycin (Verified Allergy, Unknown, 04/25/25) Ondansetron (Verified Allergy, Unknown, 04/25/25) Medications Current Medications Medications Dose Ordered Sig/Bárbara Route Start Time Stop Time Status Last Admin Dose Admin Cefepime HCl 50 ml @ 12.5 mls/hr DAILY@1999 IV 04/26/25 20:00 Acetaminophen 650 mg Q6HP PRN PO 04/25/25 23:30 UNV Exam Vital Signs Vital Signs Date Time Temp Pulse Resp B/P (MAP) Pulse Ox O2 Delivery O2 Flow Rate FiO2 04/25/25 23:01 64 12 100 Nasal Cannula* 2 28 04/25/25 23:01 103/65 (78) 04/25/25 18:00 98.1 98.1 Exam General examination- awake, alert HEENT- PEERLA, no acute nasal discharge Cardiovascular- S1-S2 audible, rate and rhythm regular, systolic murmur+ Respiratory- bilateral lung crackles+ Gastrointestinal-nontender, bowel sound+. Nondistended Musculoskeletal-no acute joint swelling or tenderness or redness Lower extremity- no leg edema Neurological- generalized muscle weakness+, Psychiatry- denies depression or SI or HI Skin- no acute rash or purpura Labs/Xrays Labs Test 04/25/25 16:06 04/25/25 12:59 Range/Units White Blood Count 15.8 H 4.4-10.8 10^3/uL Red Blood Count 3.37 L 4.0-5.20 10^6/uL Hemoglobin 9.0 L 12.2-16.2 g/dL Hematocrit 27.6 L 36.0-46.0 % Mean Corpuscular Volume 81.9 80.0-100.0 fL Mean Corpuscular Hemoglobin 26.6 L 28.0-32.0 pg Mean Corpuscular Hemoglobin Concent 32.5 32.0-36.0 g/dL Red Cell Distribution Width 17.1 H 11.8-14.3 % Platelet Count 232 140-450 10^3/uL Mean Platelet Volume 9.4 6.9-10.8 fL Neutrophils (%) (Auto) 82.5 H 37.0-80.0 % Lymphocytes (%) (Auto) 12.6 10.0-50.0 % Monocytes (%) (Auto) 4.7 0.0-12.0 % Eosinophils (%) (Auto) 0.0 0.0-7.0 % Basophils (%) (Auto) 0.2 0.0-2.0 % Neutrophils # (Auto) 13.0 H 1.6-8.6 10 ^3/uL Lymphocytes # (Auto) 2.0 0.4-5.4 10 ^3/uL Monocytes # (Auto) 0.7 0-1.3 10 ^3/uL Eosinophils # (Auto) 0 0-0.8 10 ^3/uL Basophils # (Auto) 0 0-0.2 10 ^3/uL Nucleated Red Blood Cells 0.1 % Prothrombin Time 12.1 H 9.3-11.8 sec Prothrombin Time INR 1.16 H 0.9-1.15 Activated Partial Thromboplast Time 32.5 24.5-34.5 SEC Sodium Level 135 L 136-145 mmol/L Potassium Level 2.4 *L 3.5-5.1 mmol/L Chloride Level 97 L 98-107 mmol/L Carbon Dioxide Level 25 20-31 mmol/L Anion Gap 13 5-15 Blood Urea Nitrogen 45 H 9-23 mg/dL Creatinine 3.71 H 0.550-1.02 mg/dL Glomerular Filtration Rate Calc 14 >90 mL/min BUN/Creatinine Ratio 12.1 10.0-20.0 Serum Glucose 165 H 74-106 mg/dL Lactic Acid Level 1.6 0.4-2.0 mmol/L Calcium Level 8.2 L 8.7-10.4 mg/dL Total Bilirubin 0.4 0.2-1.0 mg/dL Aspartate Amino Transferase (AST) 48 H 13-40 U/L Alanine Aminotransferase (ALT) 19 7-40 U/L Alkaline Phosphatase 39 L 46-116 U/L Total Protein 5.1 L 5.7-8.2 g/dL Albumin 3.1 L 3.2-4.8 g/dL Urine Color Yellow Yellow Urine Clarity Turbid H Clear Urine pH 6.0 5.0-9.0 Urine Specific [place] 1.008 1.001-1.035 Urine Protein Trace H Negative Urine Ketones Negative Negative Urine Blood Trace H Negative /uL Urine Nitrite Negative Negative Urine Bilirubin Negative Negative Urine Urobilinogen Normal Negative mg/dL Urine Leukocyte Esterase 3+ Negative /uL Urine RBC 1 0 - 4 /hpf Urine WBC Clumps Present None Seen /hpf Urine Microscopic WBC 395 H 0-5 /HPF Urine Squamous Epithelial Cells Few <5 /hpf Urine Bacteria Many H None Seen /hpf Urine Hyaline Casts Few 0 - 2 /lpf Urine Glucose Normal Normal mg/dL SEPSIS Sepsis Screen Date sepsis recognized/suspect: Apr 25, 2025 Time Sepsis recognized/suspect: 2303 Recent Procedure: No On Antibiotic Therapy: No Respiratory Rate >20: No Heart Rate >90: No Temp<36 C (96.8 F) or >38.3 C: No SBP <90 or MAP <65 mmHG: No New Acute Mental Status Change: No Is the patient on CPAP, BIPAP,: No Physician Orders Head Without Contrast (04/25/25 16:31) Chest Portable (04/25/25 15:35) Accucheck (04/25/25 15:35) Blood Culture (04/25/25 15:35) Notify Md If Map <65 Or Bp<90 (04/25/25 15:35) If Map<65 Start Vasopressor (04/25/25 15:35) Sepsis Reassesment After Fluid (04/25/25 16:35) Cervical Without Contrast (04/25/25 16:31) Cefepime 1gm/ 50ml (Maxipime 1gm/50ml) (04/26/25 20:00) Admit (04/25/25 23:16) Code Status (04/25/25 23:16) Renal Standard(2gna,3gk,Lopho) (04/26/25 Breakfast) Complete Blood Count (04/26/25 04:00) Comprehensive Metabolic Panel (04/26/25 04:00) Cardiac Diet-2gna,Lofat,Lochol (04/26/25 Breakfast) Echo 2d Mode Cardiac Dop (04/25/25 23:16) Carotid Duplx W Color Dop (04/25/25 23:16) Acetaminophen Tablet (Tylenol Tablet) (04/25/25 23:30) Oxygen By Nasal Cannula (04/25/25 23:16) Notify Md Of Changes From Base (04/25/25 23:16) Social Economist For 24 Hours (04/25/25 23:16) Cefepime 2gm Ivpb Q12hr (04/26/25 10:00) Vancomycin Per Pharmacy (04/25/25 23:30) Respiratory Culture W/ Gs (04/25/25 23:17) Urine Bacterial Culture (04/25/25 23:17) Pantoprazole (Protonix) (04/25/25 23:30) Pantoprazole (Protonix) (04/26/25 10:00) Apixaban (Eliquis) (04/26/25 10:00) Vital Signs Date Time Temp Pulse Resp B/P (MAP) Pulse Ox O2 Delivery O2 Flow Rate FiO2 04/25/25 23:01 64 12 100 Nasal Cannula* 2 28 04/25/25 23:01 64 12 103/65 (78) 100 04/25/25 21:00 63 12 97/52 (67) 100 04/25/25 18:00 98.1 66 12 118/46 (70) 98 98.1 04/25/25 16:16 97.6 63 16 88/41 (57) 100 97.6 04/25/25 16:16 63 16 100 Nasal Cannula* 4 36 04/25/25 16:00 63 04/25/25 15:34 61 04/25/25 15:32 61 04/25/25 15:26 98.7 60 18 60/42 (48) 98 98.7 72/40 (51) Laboratory Tests Test 04/25/25 16:06 Lactic Acid Level 1.6 mmol/L (0.4-2.0) White Blood Count 15.8 10^3/uL (4.4-10.8) H Medications Medications Dose Ordered Sig/Bárbara Route Start Time Stop Time Status Last Admin Dose Admin Cefepime HCl 50 ml @ 50 mls/hr ONCE ONCE IV 04/25/25 18:30 04/25/25 19:29 DC 04/25/25 21:01 50 MLS/HR Potassium Chloride 100 ml @ 50 mls/hr ONCE ONCE IV 04/25/25 17:00 04/25/25 18:59 DC 04/25/25 17:37 50 MLS/HR Sodium Chloride 1,000 ml @ 150 mls/hr Q6H40M ONCE IV 04/25/25 15:45 04/25/25 22:24 DC 04/25/25 18:40 150 MLS/HR Sodium Chloride 1,000 ml @ 1,000 mls/hr Q1H ONCE IV 04/25/25 15:45 04/25/25 16:44 DC 04/25/25 15:51 1,000 MLS/HR Sodium Chloride 1,000 ml @ 1,000 mls/hr Q1H ONCE IV 04/25/25 17:15 04/25/25 18:14 DC 04/25/25 17:33 1,000 MLS/HR Vancomycin HCl 200 ml @ 200 mls/hr ONCE ONCE IV 04/25/25 15:45 04/25/25 16:44 DC 04/25/25 16:26 200 MLS/HR Assessment/Plan Assessment/Plan Assessment and plan # septic shock likely due to UTI/pneumonia -on Levophed -WBC 15.8 -urine analysis -leukocyte esterase 3+, WBC 345, bacteria many -chest x-ray pulmonary vascular congestion/opacity -CT head negative for acute intracranial abnormality, bilateral chronic infarcts -pending blood culture, urine culture, sputum culture, MRSA screening -continue cefepime and vancomycin as prescribed -nebulization as prescribed -continue IV normal saline as prescribed # acute complicated cystitis -urine analysis leukocyte esterase 3+, WBC 345, bacteria many -pending blood culture, urine culture, MRSA screening -continue cefepime as prescribed -continue IV normal saline as prescribe # acute pneumonia Gram-positive versus Gram-negative -chest x-ray pulmonary vascular congestion/opacity -pending COVID-19 and flu test -pending blood culture, urine culture, MRSA screening, pending sputum culture -continue cefepime and vancomycin as prescribed -nebulization as prescribed # acute on chronic hypoxic respiratory failure likely due to pneumonia/heart failure -atrial fibrillation -severe aortic insufficiency, moderate mitral insufficiency, moderate tricuspid regurgitation - on 03/26/2025 [facility]ENE[facility]ER revealed- Concentric LVH with left atrial enlargement. LVEF 60%, severe aortic insufficiency with moderate mitral insufficiency. Moderate tricuspid regurgitation -continue Eliquis 5 mg p.o. -continue current conservative management # hypokalemia - 2.4 >2.5> 3.0 -ordered supplemental potassium -monitor BMP # [place] on CKD likely due to VMN -avoid dehydration and nephrotoxic drugs -continue IV normal saline as prescribed # moderate anemia likely due to anemia of chronic disease -pending iron profile -pending stool for occult blood test -monitor CBC # abnormal thyroid function test -TSH 29.16 -ordered free T4 # Crohn's disease -follow up outpatient with the primary care physician Goals of care, Code status full code ; discussed with >15 minutes PUD prophylaxis: Pantoprazole DVT prophylaxis: Heparin Plan discussed with Dr. Seymour , nursing staff, Total time spent on patient evaluation, chart review, assessment and plan, discussion discussion >35 minutes Plan discussed with: Patient, Spouse, Other (RN) My Orders Orders - OTILIO FLORES Procedure Category Date Status Time Admit ADMIT 04/25/25 Transmitted 23:16 Code Status CODE 04/25/25 Transmitted 23:16 Renal DIET 04/26/25 Transmitted Standard(2gna,3gk,Lopho) Breakfast Complete Blood Count LAB 04/26/25 Verified 04:00 Comprehensive LAB 04/26/25 Verified Metabolic Panel 04:00 Cardiac DIET 04/26/25 Transmitted Diet-2gna,Lofat,Lochol Breakfast Echo 2d Mode Cardiac US 04/25/25 Logged DOP 23:16 Carotid Duplx W Color US 04/25/25 Logged DOP 23:16 Acetaminophen Tablet PHA 04/25/25 Logged (Tylenol Tablet) 23:30 Oxygen By Nasal RT 04/25/25 Transmitted Cannula 23:16 Notify Of Changes DEANDRA 04/25/25 In Process From Base 23:16 Social Economist For DEANDRA 04/25/25 In Process 24 Hours 23:16 Cefepime 2gm Ivpb PHA 04/26/25 Verified Q12hr 10:00 Vancomycin Per PHA 04/25/25 Verified Pharmacy 23:30 Respiratory Culture EVELIO 04/25/25 Verified W/ Gs 23:17 Urine Bacterial EVELIO 04/25/25 Verified Culture 23:17 Pantoprazole PHA 04/25/25 Verified (Protonix) 23:30 Pantoprazole PHA 04/26/25 Verified (Protonix) 10:00 Apixaban (Eliquis) PHA 04/26/25 Verified 10:00 Date of Service: Apr 25, 2025 Billing Provider: DENNIS SEYMOUR MD Common Visit Codes: 80098-[id number] INP/OBS CARE (HIGH) Secondary Visit Codes: 84320-[id number] CARE PLAN 30 MINUTES OTILIO FLORES Apr 25, 2025 23:21
[2025-04-25] MEDS ORDERED: VANCOMYCIN PER PHARMACY 0 MG IV SCH (23:30)
[2025-04-25 23:32] VITALS: BP 103/65; PULSE 64; RESP 12; TEMP 97.6; O2SAT 100
[2025-04-26] VITALS (12 sets, daily range): BP systolic 116; BP diastolic 53; PULSE 68–85; RESP 12–20; TEMP 98.4; O2SAT 95–100
[2025-04-26 00:09] LABS: Chloride 102 mmol/L (98-107); Sodium 138 mmol/L (136-145)
[2025-04-26 00:10] LABS: Anion Gap 14 (5-15); Carbon Dioxide 22 mmol/L (20-31)
--- NOTE | 2025-04-26 00:13 | DVH ---
ULTRASOUND CAROTID DUPLEX BILATERAL REASON FOR EXAM: SYNCOPE COMPARISON: None TECHNIQUE: Using real-time freeze-frame technique with the 6 MHz small parts transducer, multiple lo ngitudinal and transverse sections were obtained. Simultaneous color flow Doppler imaging was perfor med. FINDINGS: Calcified and noncalcified plaques are present in both carotid bulbs and internal carotid arteries. Waveforms are normal. Flow is laminar throughout. Peak systolic velocities as well as ICA/ CCA ratios are normal. Flow through the vertebral and external carotid arteries is antegrade bilater ally. PEAK SYSTOLIC VELOCITIES (cm/sec): RIGHT: CCA 87 Proximal ICA 118 Mid ICA 69 Distal ICA 69 ECA 67 ICA/CCA ratio 1.4 LEFT: CCA 87 Proximal ICA 100 Mid ICA 124 Distal ICA 118 ECA 94 ICA/CCA ratio 1.4 IMPRESSION: Atherosclerotic vascular disease with no hemodynamically significant stenosis. Any narrowing is less than 50%. Measurement of carotid stenosis is based on velocity parameters that correlate the residual internal carotid diameter with that of the more distal vessel in accordance with the [place] Symptom[place] Carotid Endarterectomy Trial (NASCET).
[2025-04-26] MEDS: ACETAMINOPHEN 325 MG TAB PO PRN (00:14)
[2025-04-26] MEDS: PANTOPRAZOLE 40 MG/10 ML VIAL INJ IV ONE (00:14)
[2025-04-26 00:15] LABS: Calcium 7.4 mg/dL (8.7-10.4)
[2025-04-26 00:16] LABS: BUN/Creatinine Ratio 11.8 (10.0-20.0); Potassium 2.5 mmol/L (3.5-5.1)
[2025-04-26 00:17] LABS: Blood Urea Nitrogen 41 mg/dL (9-23); Glucose 115 mg/dL (74-106); Magnesium 1.5 mg/dL (1.6-2.6)
[2025-04-26 00:19] LABS: Mean Corpuscular Volume 83.2 fL (80.0-100.0); Nucleated Red Blood Cells % 0.1 %
[2025-04-26 00:21] LABS: Hematocrit 31.2 % (36.0-46.0); Hemoglobin 10.3 g/dL (12.2-16.2); Mean Corpuscular Hemoglobin 27.4 pg (28.0-32.0)
[2025-04-26 00:39] LABS: INR 1.15 (0.9-1.15); Partial Thromboplastin Time 31.7 SEC (24.5-34.5); Prothrombin Time 12.0 sec (9.3-11.8)
[2025-04-26] MEDS: POTASSIUM CHL 20 Meq TABLET PO ONE (01:43)
[2025-04-26] MEDS: POTASSIUM CHL 20MEQ/100ML 100 ML IV SCH (01:45)
[2025-04-26] MEDS: SODIUM CHLORIDE 0.9% 1,000 ML IV SCH (04:04)
[2025-04-26] MEDS: MAGNESIUM SULFATE 1GM/100ML 100 ML IV SCH (04:21)
[2025-04-26] MEDS: SODIUM CHLORIDE 0.9% 1,000 ML IV ONE (04:22)
[2025-04-26 05:13] LABS: Hematocrit 32.4 % (36.0-46.0); Hemoglobin 10.4 g/dL (12.2-16.2); Mean Corpuscular Hemoglobin 27.2 pg (28.0-32.0); Mean Corpuscular Volume 84.4 fL (80.0-100.0); Nucleated Red Blood Cells % 0.1 %
[2025-04-26 05:29] LABS: Alanine Aminotransferase 24 U/L (7-40); Anion Gap 18 (5-15); BUN/Creatinine Ratio 14.0 (10.0-20.0); Chloride 104 mmol/L (98-107); Sodium 139 mmol/L (136-145)
[2025-04-26 05:49] LABS: Albumin 3.0 g/dL (3.2-4.8); Alkaline Phosphatase 42 U/L (46-116); Bilirubin, Total 0.3 mg/dL (0.2-1.0); Blood Urea Nitrogen 47 mg/dL (9-23); Calcium 7.0 mg/dL (8.7-10.4); Carbon Dioxide 17 mmol/L (20-31); Glucose 112 mg/dL (74-106); Iron 16.0 ug/dL (50-170); Potassium 3.0 mmol/L (3.5-5.1); Total Protein 5.0 g/dL (5.7-8.2)
[2025-04-26 05:54] LABS: Total Iron Binding Capacity 241.0 ug/dL (250-425)
[2025-04-26] MEDS ORDERED: HEPARIN SODIUM (PORCINE) 5000 UNITS/ML 1ML VIAL SC SCH (06:00)
[2025-04-26] MEDS: HYDROcodone-ACET 5/325MG TAB PO ONE (06:26)
[2025-04-26] MEDS: IPRATROPIUM BROM 0.5 MG/2.5ML INH SOL NEB SCH (06:52)
[2025-04-26] MEDS: BUDESONIDE (INHALATION) 0.5 MG/2 ML NEB NEB SCH (06:52)
[2025-04-26] MEDS: ALBUTEROL SULF 2.5 MG/0.5ML(0.5%) NEB SOLN NEB SCH (06:52)
[2025-04-26] MEDS: MAGNESIUM SULFATE 1GM/100ML 100 ML IV ONE (07:42)
[2025-04-26] MEDS: NOREPINEPHRINE 8 MG/250ML KIT 250 ML IV SCH (07:46)
--- NOTE | 2025-04-26 08:09 | DVH ---
CHEST RADIOGRAPH Indication: PNA Technique: Single frontal view of the chest was obtained Comparison: XY CHEST PORTABLE on DOS: 04/25/25 FINDINGS: Lines and Tubes: None Lungs: Low lung volumes. Increased interstitial prominence. Pleura: No effusion. No pneumothorax. Cardiomediastinal contours: Unremarkable Bones: Unremarkable IMPRESSION: Low lung volumes. Pulmonary vascular congestion versus viral pneumonia.
[2025-04-26 08:27] LABS: Chloride 104 mmol/L (98-107); Sodium 139 mmol/L (136-145)
[2025-04-26 08:28] LABS: Anion Gap 15 (5-15)
[2025-04-26 08:33] LABS: BUN/Creatinine Ratio 11.9 (10.0-20.0); Glucose 106 mg/dL (74-106)
[2025-04-26 08:36] LABS: Blood Urea Nitrogen 39 mg/dL (9-23); Calcium 7.7 mg/dL (8.7-10.4); Carbon Dioxide 20 mmol/L (20-31); Potassium 3.0 mmol/L (3.5-5.1)
--- NOTE | 2025-04-26 09:17 | DVHCONRES ---
Date Seen: Apr 26, 2025 Resident Creating Document: MARCELLO BURDEN RESIDENT Referring Physician MD Zo History of Present Illness Ms. Penaloza is a 54-year-old female with severe aortic insufficiency, moderate MR, moderate TR, COPD on 4 L home oxygen, CKD 3B, questionable rheumatoid arthritis and Crohn's disease who presented to the EMS with chief complaint of recurrent falls. Patient she has been experiencing recurrent episodes of fall and syncope preceded by dizziness and the legs giving out. She has been having these episodes since 2022. She was intubated for pneumonia and MRSA bacteremia in 2022. She reports that she stood up from bed and upon walking to the bathroom she felt the sudden onset of bilateral lower extremity numbness and subsequent fall injury and she fell, hit her head. Patient is requiring IV pressor support with Levophed of 12. Patient recently had / which showed 60% EF, severe AI, moderate MR, moderate TR. Nephrology consulted for NYASIA and CKD. Baseline creatinine GFR 1.63/37 Past medical history:severe aortic insufficiency, moderate MR, moderate TR, COPD on 4 L home oxygen, CKD 3B, questionable rheumatoid arthritis and Crohn's disease Past surgical history: EBENEZER: Back surgery: Hysterectomy Home medication: Eliquis 5 mg p.o. b.i.d., amiodarone 200 mg daily, clonidine 0 .1 mg b.i.d., furosemide 40 mg p.o. b.i.d., ibuprofen p.r.n., metoprolol 200 mg b.i.d., rosuvastatin, tizanidine Follow up Dr. Contreras. Patient seen and examined in the ER. On IV Levophed. Allergies: Coded Allergies: Erythromycin (Unverified Allergy, Severe, 01/19/25) Ondansetron (Unverified Allergy, Severe, 01/19/25) Azithromycin (Verified Allergy, Unknown, 01/19/25) Home Meds Active Scripts Potassium Chloride (Potassium Chloride ER) 10 Meq Tab, 10 MEQ PO DAILY, #30 TAB Prov:MEENU LINDER MD 01/25/25 Furosemide (Furosemide) 40 Mg Tab, 1 TAB PO BID, #90 TAB Prov:MEENU LINDER MD 01/25/25 Apixaban Base (ELIQUIS) 5 Mg Tab, 5 MG PO BID, #90 TAB Prov:GANAPAVARAPRhiannon,MEENU MD 06/13/24 Amiodarone Hcl (Amiodarone Hcl) 200 Mg Tab, 1 TAB PO DAILY, #30 TAB Prov:MEENU LINDER MD 06/13/24 Reported Medications Tizanidine Hydrochloride (Tizanidine Hcl) 4 Mg Tab, 1 TAB PO TID PRN 04/28/25 Metoprolol Succinate (Metoprolol Succinate Er) 50 Mg Tab, 200 MG PO BID for 30 Days, MG 03/25/25 Alprazolam (Alprazolam) 0.5 Mg Tab, 1 TAB PO BID, #60 TAB 03/25/25 Lactobacillus (PROBIOTIC) Cap, 1 CAP PO DAILY for SUPPLEMENT, CAP 01/19/25 Cholecalciferol (VITAMIN D3) 2,000 Unit Tab, 1 TAB PO DAILY for SUPPLEMENT, #30 TAB 5 Refills 01/19/25 Tizanidine Hydrochloride (Zanaflex) 4 Mg Cap, 1 CAP PO QPM, #30 CAP 01/19/25 Prazosin Hcl (Minipres) 1 Mg Cp, 4 MG PO QPM for NIGHTMARES, CAP 01/19/25 Nystatin-Triamcinolone (Mycolog) 1 Applic Ap, 1 APPLIC TOP BID for FUNGAL RASH, #15 GRAMS 1 Refill 01/19/25 Ipratropium-Albuterol (Ipratropium Scott/Albut) 1 Jazmyne Jazmyne, 1 JAZMYNE IN Q4HP PRN f or SHORTNESS OF BREATH, ML 01/19/25 Ibuprofen (Ibuprofen) 800 Mg Tab, 800 MG PO DAILYP PRN for PAIN SCALE 1 THRU 6, MG 01/19/25 Hydroxyzine Hcl (Hydroxyzine Hcl) 25 Mg Tab, 25 MG PO Q6HP PRN for N&V, MG 01/19/25 Estradiol (Estradiol) 1 Mg Tab, 1 MG PO DAILY for VAGINAL DRYNESS, MG 01/19/25 Doxepin Hcl (Doxepin Hcl) 25 Mg Cap, 3 CAP PO QPM for INSOMNIA, #30 CAP 1 Refill 01/19/25 Bisacodyl (BISACODYL) 10 Mg Sup, 10 MG RE NO BM FOR 3 DAYS for BOWEL MANAGEMENT, SUPP 01/19/25 Hyoscyamine Sulfate (Levsin) 0.125 Mg Tab, 1 TAB PO Q4HPRN PRN for increased secretions, #120 TAB 5 Refills 01/19/25 Sertraline Hcl (Sertraline Hcl) 100 Mg Tab, 2 TAB PO DAILY for PTSD, #90 TAB 1 Refill 01/19/25 Clonidine Hydrochloride (Clonidine Hcl) 0.1 Mg Tab, 0.1 MG PO BID for bp>150 for 30 Days, MG 01/19/25 Rosuvastatin Calcium (Crestor) 40 Mg Tab, 40 MG PO DAILY, TAB 06/12/24 Albuterol Sulfate (Albuterol Sulfate Hfa) 108 Mcg/Act Aer, 2.5 MG IN QID, AER 06/12/24 Pantoprazole Sodium Sesquihydr (Pantoprazole Sodium) 40 Mg Tab, 40 MG PO DAILY, TAB 06/12/24 Current Medications Current Medications Medications (Trade) Dose Ordered Sig/Bárbara Route PRN Reason Start Time Stop Time Status Last Admin Cefepime HCl 50 ml @ 12.5 mls/hr DAILY@2000 IV 04/26/25 20:00 04/25/25 23:36 DC Acetaminophen (Tylenol Tablet) 650 mg Q6HP PRN PO PAIN SCALE 1-3 OR TEMP>100.4 04/25/25 23:30 04/26/25 00:14 Cefepime HCl 50 ml @ 12.5 mls/hr Q12HR IV 04/26/25 10:00 UNV Vancomycin HCl 0 ml @ 0 mls/hr UD IV 04/25/25 23:30 Pantoprazole Sodium (Protonix) 40 mg DAILY IV 04/26/25 10:00 Apixaban (Eliquis) 5 mg BID PO 04/26/25 10:00 04/26/25 05:17 DC Albuterol (Ventolin Medneb) 2.5 mg Q6HWA NEB 04/26/25 06:00 04/26/25 06:52 Ipratropium [place] (Atrovent Medneb) 0.5 mg Q6HWA NEB 04/26/25 06:00 04/26/25 06:52 Budesonide (Pulmicort) 0.25 mg BID NEB 04/26/25 10:00 04/26/25 06:52 Cefepime HCl 50 ml @ 12.5 mls/hr Q24H IV 04/25/25 20:00 04/25/25 23:37 DC Cefepime HCl 50 ml @ 12.5 mls/hr Q24H IV 04/26/25 20:00 Potassium Chloride 100 ml @ 50 mls/hr Q2H IV 04/26/25 01:00 04/26/25 04:59 DC 04/26/25 04:20 Magnesium Sulfate/ Dextrose 100 ml @ 100 mls/hr Q1HR IV 04/26/25 03:00 04/26/25 04:59 DC 04/26/25 08:28 Heparin Sodium (Porcine) 5,000 units Q8HR SC 04/26/25 06:00 04/26/25 02:46 DC Sodium Chloride 1,000 ml @ 100 mls/hr Q10H IV 04/26/25 03:00 04/26/25 04:04 Norepinephrine Bitartrate 250 ml @ 3.75 mls/hr Q24H IV 04/26/25 05:15 04/26/25 07:46 Apixaban (Eliquis) 5 mg BID PO 04/26/25 10:00 Vital Signs Vital Signs Date Time Temp Pulse Resp B/P (MAP) Pulse Ox O2 Delivery O2 Flow Rate FiO2 04/26/25 08:45 84/34 04/26/25 08:30 69 13 99 04/26/25 08:00 98.3 98.3 04/26/25 07:49 Nasal Cannula* 3 32 Physical Exam Patient lying in bed, in no acute distress General: Obese, afebrile, palor, mucosae are moist Cardiovascular: Regular S1 and S2. S3 heard. No JVD elevation. Trace pitting edema bilaterally Respiratory: Decreased bilateral air entry on home oxygen Abdomen: Soft, nontender, nondistended, normoactive bowel sounds, no rebound tenderness, no organomegaly, no masses Genitourinary: Deferred MSK/skin: Mobilizes 4 limbs. Skin is dry and warm Neurological: No motor, no sensitive deficits, normal speech. Pupils are isocoric and reactive. Psych/Mental Status: A/Ox3 Labs/Diagnostic Data Labs Test 04/26/25 08:23 04/26/25 07:47 04/26/25 04:39 04/25/25 23:13 Range/Units Sodium Level 139 136-145 mmol/L Potassium Level 3.0 L 3.5-5.1 mmol/L Chloride Level 104 98-107 mmol/L Carbon Dioxide Level 20 20-31 mmol/L Anion Gap 15 5-15 Blood Urea Nitrogen 39 H 9-23 mg/dL Creatinine 3.28 H 0.550-1.02 mg/dL Glomerular Filtration Rate Calc 16 >90 mL/min BUN/Creatinine Ratio 11.9 10.0-20.0 Serum Glucose 106 74-106 mg/dL Lactic Acid Level 1.6 0.4-2.0 mmol/L Calcium Level 7.7 L 8.7-10.4 mg/dL Phosphorus Level 4.6 2.4-5.1 mg/dL C-Reactive Protein High Sensitivity > 20.00 H <1.0 mg/dL White Blood Count 14.5 H 4.4-10.8 10^3/uL Red Blood Count 3.84 L 4.0-5.20 10^6/uL Hemoglobin 10.4 L 12.2-16.2 g/dL Hematocrit 32.4 L 36.0-46.0 % Mean Corpuscular Volume 84.4 80.0-100.0 fL Mean Corpuscular Hemoglobin 27.2 L 28.0-32.0 pg Mean Corpuscular Hemoglobin Concent 32.2 32.0-36.0 g/dL Red Cell Distribution Width 17.4 H 11.8-14.3 % Platelet Count 209 140-450 10^3/uL Mean Platelet Volume 9.6 6.9-10.8 fL Neutrophils (%) (Auto) 79.7 37.0-80.0 % Lymphocytes (%) (Auto) 12.6 10.0-50.0 % Monocytes (%) (Auto) 6.9 0.0-12.0 % Eosinophils (%) (Auto) 0.5 0.0-7.0 % Basophils (%) (Auto) 0.3 0.0-2.0 % Neutrophils # (Auto) 11.5 H 1.6-8.6 10 ^3/uL Lymphocytes # (Auto) 1.8 0.4-5.4 10 ^3/uL Monocytes # (Auto) 1.0 0-1.3 10 ^3/uL Eosinophils # (Auto) 0.1 0-0.8 10 ^3/uL Basophils # (Auto) 0.1 0-0.2 10 ^3/uL Nucleated Red Blood Cells 0.1 % Iron Level 16 L 50-170 ug/dL Total Iron Binding Capacity 241 L 250-425 ug/dL Percent Iron Saturation 6.6 L 15-50 % Ferritin 1779.8 H 10-291 ng/mL Total Bilirubin 0.3 0.2-1.0 mg/dL Aspartate Amino Transferase (AST) 59 H 13-40 U/L Alanine Aminotransferase (ALT) 24 7-40 U/L Alkaline Phosphatase 42 L 46-116 U/L Troponin I High Sensitivity 7 </=34 ng/L Total Protein 5.0 L 5.7-8.2 g/dL Albumin 3.0 L 3.2-4.8 g/dL Prothrombin Time 12.0 H 9.3-11.8 sec Prothrombin Time INR 1.15 0.9-1.15 Activated Partial Thromboplast Time 31.7 24.5-34.5 SEC Hemoglobin A1c 5.6 <5.7 % A1C Magnesium Level 1.5 L 1.6-2.6 mg/dL B-Type Natriuretic Peptide 146.09 0-100 pg/mL Vitamin D 25-Hydroxy 35.1 30.0-100 ng/mL Thyroid Stimulating Hormone (TSH) 29.16 H 0.55-4.78 uIU/mL Test 04/25/25 12:59 Range/Units Urine Color Yellow Yellow Urine Clarity Turbid H Clear Urine pH 6.0 5.0-9.0 Urine Specific [place] 1.008 1.001-1.035 Urine Protein Trace H Negative Urine Ketones Negative Negative Urine Blood Trace H Negative /uL Urine Nitrite Negative Negative Urine Bilirubin Negative Negative Urine Urobilinogen Normal Negative mg/dL Urine Leukocyte Esterase 3+ Negative /uL Urine RBC 1 0 - 4 /hpf Urine WBC Clumps Present None Seen /hpf Urine Microscopic WBC 395 H 0-5 /HPF Urine Squamous Epithelial Cells Few <5 /hpf Urine Bacteria Many H None Seen /hpf Urine Hyaline Casts Few 0 - 2 /lpf Urine Glucose Normal Normal mg/dL Microbiology Date/Time Source Procedure Growth Status 04/25/25 15:50 Blood Blood Culture - Preliminary Resulted Assessment Acute kidney injury in the setting of sepsis superimposed on CKD 3B Septic shock secondary to UTI and pneumonia requiring IV pressor support Syncope in the setting of sepsis and valvular disease Acute cystitis, previous history of Klebsiella UTI Chronic heart failure preserved ejection fraction COPD on home oxygen Chronic respiratory failure Severe aortic insufficiency Moderate MR/moderate TR Anemia, normocytic due to CKD Hypokalemia, hypomagnesemia Undiagnosed thyroid disorder Secondary hyperparathyroidism BNP 146 Prelim blood culture showing Gram-negative rods Baseline creatinine/GFR 1.63/37 Plan: Urine electrolytes pending, patient's NYASIA is likely in the setting of sepsis. Continue IV fluids and IV antibiotics. Monitor vanco trough, maintained at less than 20 Patient requiring IV pressors, keep map greater than 65 Avoid antihypertensive at this time Keep hemoglobin greater than 10, patient might require Epogen if hemoglobin trends down Avoid NSAIDs/ibuprofen Strict I&Os Cardiology consult appreciated We will continue to follow up PATIENT HAS 2 MEDICAL RECORDS, [id number] IS THE OTHER MR Plan discussed with patient in which all questions have been answered Case discussed with Dr. Luis Plan discussed with: Patient, Other (nurse) ADDENDUM ADDENDUM Patient is seen with resident agree with assessment and plan Acute kidney injury hemodynamically mediated in setting of septic shock Patient has Gram-negative bacteremia from E coli. Bacteremia was complicated by patient's significant valvular heart disease. Continue with IV fluid Broad-spectrum antibiotics Avoid hypotension Maintain mean arterial pressure greater than 65 Care time spent 60 minutes MARCELLO BURDEN RESIDENT Apr 26, 2025 09:17 TIM LUIS MD Apr 29, 2025 13:34
[2025-04-26 09:46] LABS: COVID19 ANTIGEN SOFIA FIA NEGATIVE (NEGATIVE)
[2025-04-26] MEDS ORDERED: CEFEPIME 2GM/50ML NS 50 ML IV SCH ×2 (10:00→20:00)
[2025-04-26] MEDS ORDERED: APIXABAN 5 MG TAB PO SCH (10:00)
[2025-04-26] MEDS: APIXABAN 5 MG TAB PO SCH (10:06)
[2025-04-26] MEDS: POTASSIUM CHL 20MEQ/100ML 100 ML IV ONE (10:07)
[2025-04-26] MEDS: PANTOPRAZOLE 40 MG/10 ML VIAL INJ IV SCH (10:07)
[2025-04-26] MEDS: POTASSIUM CHLORIDE 20 MEQ, LIDOCAINE 1% (LOCAL ANESTH.) 2 ML in SODIUM CHL 0.9% 100 ML IV ONE ×2 (10:15→18:25)
[2025-04-26 10:39] LABS: Benzodiazephine Screen, Urine Pos (NEGATIVE)
[2025-04-26 10:41] LABS: Opiate Scree,Urine Pos (NEGATIVE); Phencyclidine Screen, Urine Neg (NEGATIVE)
[2025-04-26 10:44] LABS: Amphetamine Screen, Urine Neg (NEGATIVE); Barbiturate Scree,Urine Neg (NEGATIVE); Cannabinoid Screen, Urine Neg (NEGATIVE); Cocaine Screen, Urine Neg (NEGATIVE)
--- NOTE | 2025-04-26 11:11 | DVHINCON2 ---
Date Seen: Apr 26, 2025 Referring Physician MD Zo Reason for Consultation CHF, valvular heart disease History of Present Illness This is a 54-year-old female who presented to the emergency room via EMS with a chief complaint of fall injury. Per patient, she stood up from bed around 0300 and upon walking to the bathroom she felt a sudden onset of bilateral lower extremity numbness with subsequent fall injury forward causing trauma to her forehead. She was medicated with NS 200 mls IV and a 12-lead electrocardiogram. She presented to the emergency room with complaints of a headache, neck pain, and back pain and an associated blood pressure of 60/42 mmHg. She is currently on a levophed drip for hemodynamic stability. Denies any chest pain, palpitations, diaphoresis, shortness of breath, or dizziness. A 12 lead electrocardiogram revealed a sinus rhythm with a associated first-degree atrioventricular block. Serial troponin levels are negative. Significant medical history includes paroxysmal atrial fibrillation on amiodarone and Eliquis therapy, severe aortic insufficiency, severe mitral insufficiency, moderate tricuspid regurgitation, hypertension, chronic kidney disease stage IIIA, COPD with O2 dependence, Crohn's disease, rheumatoid arthritis, fibromyalgia, history of endometrial cancer status post hysterectomy 20 years ago, depression, anxiety, and morbid obesity. Past Medical History Past medical history reviewed. No other significant than mentioned above. Past Surgical History TEEs x 2 Back surgery Hysterectomy Family History Family history reviewed. Social History Admits to occasional alcohol and cannabinoid use. Denies any use of tobacco. Allergies: Coded Allergies: Azithromycin (Verified Allergy, Unknown, 04/25/25) Ondansetron (Verified Allergy, Unknown, 04/25/25) Home Meds Home medications reviewed. Current Medications Current Medications Medications (Trade) Dose Ordered Sig/Bárbara Route PRN Reason Start Time Stop Time Status Last Admin Cefepime HCl 50 ml @ 12.5 mls/hr DAILY@1999 IV 04/26/25 20:00 04/25/25 23:36 DC Acetaminophen (Tylenol Tablet) 650 mg Q6HP PRN PO PAIN SCALE 1-3 OR TEMP>100.4 04/25/25 23:30 04/26/25 00:14 Cefepime HCl 50 ml @ 12.5 mls/hr Q12HR IV 04/26/25 10:00 UNV Vancomycin HCl 0 ml @ 0 mls/hr UD IV 04/25/25 23:30 Pantoprazole Sodium (Protonix) 40 mg DAILY IV 04/26/25 10:00 04/26/25 10:07 Apixaban (Eliquis) 5 mg BID PO 04/26/25 10:00 04/26/25 05:17 DC Albuterol (Ventolin Medneb) 2.5 mg Q6HWA [facility] 04/26/25 06:00 04/26/25 06:52 Ipratropium [place] (Atrovent Medneb) 0.5 mg Q6HWA [facility] 04/26/25 06:00 04/26/25 06:52 Budesonide (Pulmicort) 0.25 mg BID NEB 04/26/25 10:00 04/26/25 06:52 Cefepime HCl 50 ml @ 12.5 mls/hr Q24H IV 04/25/25 20:00 04/25/25 23:37 DC Cefepime HCl 50 ml @ 12.5 mls/hr Q24H IV 04/26/25 20:00 Potassium Chloride 100 ml @ 50 mls/hr Q2H IV 04/26/25 01:00 04/26/25 04:59 DC 04/26/25 04:20 Magnesium Sulfate/ Dextrose 100 ml @ 100 mls/hr Q1HR IV 04/26/25 03:00 04/26/25 04:59 DC 04/26/25 08:28 Heparin Sodium (Porcine) 5,000 units Q8HR SC 04/26/25 06:00 04/26/25 02:46 DC Sodium Chloride 1,000 ml @ 100 mls/hr Q10H IV 04/26/25 03:00 04/26/25 04:04 Norepinephrine Bitartrate 250 ml @ 3.75 mls/hr Q24H IV 04/26/25 05:15 04/26/25 07:46 Apixaban (Eliquis) 5 mg BID PO 04/26/25 10:00 04/26/25 10:06 Review of Systems Constitutional: Lower extremity weakness Ears, Nose, & Throat: No symptom reported Eyes: No symptom reported Neurological: JEWELL Pulmonary/Respiratory: No symptom reported Cardiovascular: No symptom reported Gastrointestinal: No symptom reported Genitourinary: No symptom reported Musculoskeletal: Back pain Skin: No symptom reported Psychiatric: No symptom reported Endocrine: No symptom reported Hemotologic/Lymphatic: No symptom reported Vital Signs Vital Signs Date Time Temp Pulse Resp B/P (MAP) Pulse Ox O2 Delivery O2 Flow Rate FiO2 04/26/25 09:17 89/39 04/26/25 09:00 68 13 98 04/26/25 08:00 98.3 98.3 04/26/25 07:49 Nasal Cannula* 3 32 Physical Exam General Appearance: Cooperative. Lethargic. Obese. In no acute distress Head Exam: Normal inspection Neck Exam: Normal inspection. Non-tender. Normal alignment Pulmonary/Respiratory: Chest non-tender. Diminished bilateral breath sounds Cardiovascular/Chest: Regular rate and rhythm. S1, S2. Sinus rhythm with first-degree AV block. No murmurs. No JVD. Peripheral Pulses: 2+ Radial (R). 2+ Radial (L). 2+ Pedal (R). 2+ Pedal (L) Abdominal Exam: Normal bowel sounds. Soft. Ankle Exam: Negative ankle edema Lower extremities: Negative lower extremity edema Neuro/Mental Status: A&O x4. Coherent Thoughts/Psych: Normal thought pattern. Appropriate mood and affect. Appearance: In no acute distress Skin Exam: Normal inspection. Pale color. Warm. Dry Labs/Diagnostic Data Labs Test 04/26/25 09:15 04/26/25 08:23 04/26/25 07:47 04/26/25 04:39 Range/Units Urine Opiates Screen Pos NEGATIVE Urine Fentanyl Screen Neg NEGATIVE Urine Barbiturates Screen Neg NEGATIVE Urine Phencyclidine Screen Neg NEGATIVE Urine Amphetamines Screen Neg NEGATIVE Urine Benzodiazepines Screen Pos NEGATIVE Urine Cocaine Screen Neg NEGATIVE Urine Cannabinoids Screen Neg NEGATIVE Influenza Type A Antigen Negative Negative Influenza Type B Antigen Negative Negative SARS-CoV-2 Antigen (Rapid) Negative NEGATIVE Erythrocyte Sedimentation Rate 32 H 0-20 mm/hr Sodium Level 139 136-145 mmol/L Potassium Level 3.0 L 3.5-5.1 mmol/L Chloride Level 104 98-107 mmol/L Carbon Dioxide Level 20 20-31 mmol/L Anion Gap 15 5-15 Blood Urea Nitrogen 39 H 9-23 mg/dL Creatinine 3.28 H 0.550-1.02 mg/dL Glomerular Filtration Rate Calc 16 >90 mL/min BUN/Creatinine Ratio 11.9 10.0-20.0 Serum Glucose 106 74-106 mg/dL Lactic Acid Level 1.6 0.4-2.0 mmol/L Calcium Level 7.7 L 8.7-10.4 mg/dL Phosphorus Level 4.6 2.4-5.1 mg/dL C-Reactive Protein High Sensitivity > 20.00 H <1.0 mg/dL Free Thyroxine (T4) Calculated 0.33 L 0.89-1.76 ng/dL White Blood Count 14.5 H 4.4-10.8 10^3/uL Red Blood Count 3.84 L 4.0-5.20 10^6/uL Hemoglobin 10.4 L 12.2-16.2 g/dL Hematocrit 32.4 L 36.0-46.0 % Mean Corpuscular Volume 84.4 80.0-100.0 fL Mean Corpuscular Hemoglobin 27.2 L 28.0-32.0 pg Mean Corpuscular Hemoglobin Concent 32.2 32.0-36.0 g/dL Red Cell Distribution Width 17.4 H 11.8-14.3 % Platelet Count 209 140-450 10^3/uL Mean Platelet Volume 9.6 6.9-10.8 fL Neutrophils (%) (Auto) 79.7 37.0-80.0 % Lymphocytes (%) (Auto) 12.6 10.0-50.0 % Monocytes (%) (Auto) 6.9 0.0-12.0 % Eosinophils (%) (Auto) 0.5 0.0-7.0 % Basophils (%) (Auto) 0.3 0.0-2.0 % Neutrophils # (Auto) 11.5 H 1.6-8.6 10 ^3/uL Lymphocytes # (Auto) 1.8 0.4-5.4 10 ^3/uL Monocytes # (Auto) 1.0 0-1.3 10 ^3/uL Eosinophils # (Auto) 0.1 0-0.8 10 ^3/uL Basophils # (Auto) 0.1 0-0.2 10 ^3/uL Nucleated Red Blood Cells 0.1 % Iron Level 16 L 50-170 ug/dL Total Iron Binding Capacity 241 L 250-425 ug/dL Percent Iron Saturation 6.6 L 15-50 % Ferritin 1779.8 H 10-291 ng/mL Total Bilirubin 0.3 0.2-1.0 mg/dL Aspartate Amino Transferase (AST) 59 H 13-40 U/L Alanine Aminotransferase (ALT) 24 7-40 U/L Alkaline Phosphatase 42 L 46-116 U/L Troponin I High Sensitivity 7 </=34 ng/L Total Protein 5.0 L 5.7-8.2 g/dL Albumin 3.0 L 3.2-4.8 g/dL Test 04/25/25 23:13 04/25/25 12:59 Range/Units Prothrombin Time 12.0 H 9.3-11.8 sec Prothrombin Time INR 1.15 0.9-1.15 Activated Partial Thromboplast Time 31.7 24.5-34.5 SEC Hemoglobin A1c 5.6 <5.7 % A1C Magnesium Level 1.5 L 1.6-2.6 mg/dL B-Type Natriuretic Peptide 146.09 0-100 pg/mL Vitamin B12 Level 511 211-911 pg/mL Vitamin D 25-Hydroxy 35.1 30.0-100 ng/mL Folic Acid 6.79 >5.38 ng/mL Thyroid Stimulating Hormone (TSH) 29.16 H 0.55-4.78 uIU/mL Urine Color Yellow Yellow Urine Clarity Turbid H Clear Urine pH 6.0 5.0-9.0 Urine Specific [place] 1.008 1.001-1.035 Urine Protein Trace H Negative Urine Ketones Negative Negative Urine Blood Trace H Negative /uL Urine Nitrite Negative Negative Urine Bilirubin Negative Negative Urine Urobilinogen Normal Negative mg/dL Urine Leukocyte Esterase 3+ Negative /uL Urine RBC 1 0 - 4 /hpf Urine WBC Clumps Present None Seen /hpf Urine Microscopic WBC 395 H 0-5 /HPF Urine Squamous Epithelial Cells Few <5 /hpf Urine Bacteria Many H None Seen /hpf Urine Hyaline Casts Few 0 - 2 /lpf Urine Glucose Normal Normal mg/dL Microbiology Date/Time Source Procedure Growth Status 04/25/25 15:50 Blood Blood Culture - Preliminary Resulted Assessment Septic shock with PNA/UTI Paroxysmal atrial fibrillation, stage III, now NSR (on amiodarone/Elqiuis therapy) Severe aortic valve and mitral valve insufficiency Anemia in chronic disease NYASIA on CKD stage IIIA Thyroid disease Prediabetes, newly diagnosed Morbid obesity Plan/Recommendation (Dr. Miller) The patient with septic shock his cardiac stable at this time. Latest transthoracic echocardiogram (12/17/2024) revealed LVEF 55-60% with normal wall motion and normal diastolic function. Latest transesophageal echocardiogram (03/26/2025) revealed an LVEF of 60% with normal right ventricular function, and severe aortic insufficiency with moderate mitral insufficiency. Recommendations are to continue antiarrhythmic therapy with amiodarone and Eliquis therapy ([id number] Score 2 points, HAS-BLED Score 0 points). Continue vasopressor for hemodynamic support. Patient has been referred as outpatient to cardiovascular surgery with Dr. Melo in [place] for aortic valve replacement with possible TAVR as well as mitral clip. Continue follow-up with Dr. Miller as scheduled. There is no further cardiac workup indicated at this time. Kindly call if you need to re-consult. Thank you for allowing us to pa rticipate in this patient's care. Please call if you have any questions or concerns. This medical document was created using an electronic medical record system with voice recognition software and computerized dictation system. Although this document has been carefully reviewed, there might still be some phonetic and typographical errors. Occasional wrong-word or ``sound-alike substitutions may have occurred due to the inherent limitations of voice recognition software. These areas are purely typographical due to imperfections of the software programs and do not reflect any compromise in the patient's medical care. Please read the chart carefully and recognize, using context, where these substitutions have occurred. Plan discussed with: Patient, Other NYHA Physical activity limitations: NA Date of Service: Apr 26, 2025 Billing Provider: RADHA CARPENTER Cardiology Common Codes: 63633-PSXDEAWG CARE 30-74 MIN RADHA CARPENTER Apr 26, 2025 11:11
--- NOTE | 2025-04-26 11:34 | DVHNC2 ---
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 Indication: Hypotension, CVP monitoring Room prepared for procedure: Yes Search Marketing Analyst performed hand hygien: Yes Maximal sterile barrier precau: Mask/Eye shield, Sterile gown Skin Preparation: Chlorhexidine gluconate, Providine iodine Skin preparation completely dr: Yes Insertion site: Left, Internal jugular Central line catheter type: Asf-[id number]-[id number] dialysis Number of lumens: 3 Antiseptic ointment applied to: Yes Post Assessment: Chest X-Ray Date of Service: Apr 26, 2025 Billing Provider: PAPA BOX MD Common Visit Codes: [id number] INP/OBS CARE (HIGH) Secondary Visit Codes: [id number] STANDBY SERVICE Consultation Codes: [id number] CONSULT <45MIN Procedure Codes: [id number] NON-TUNNEL CV CATH PAPA BOX MD Apr 26, 2025 11:34
[2025-04-26] MEDS: AMIODARONE HCL 200 MG TAB PO ONE (12:03)
--- NOTE | 2025-04-26 12:03 | DVH ---
EXAM: XY CHEST PORTABLE Indication: CENTRAL LINE PLACEMENT Technique: Single frontal view of the chest was obtained Comparison: XY CHEST XRAY 1 VIEW on DOS: 04/26/25, XY CHEST PORTABLE on DOS: 04/25/25 FINDINGS: Lines and Tubes: Left central venous catheter tip projects over superior vena cava. Lungs: Low lung volume with pulmonary vascular congestion. Pleura: Trace left pleural effusion. No pneumothorax. Cardiomediastinal contours: Cardiomegaly. Bones: No acute osseous abnormality. IMPRESSION: Low lung volume with pulmonary vascular congestion.Trace left pleural effusion.
[2025-04-26 13:20] LABS: Protein, Urine 65.2 mg/dL (1-14)
[2025-04-26] MEDS ORDERED: VANCOMYCIN 500mg/100mL 100 ML IV ONE (16:00)
--- NOTE | 2025-04-26 16:29 | DVH ---
INDICATION: acute renal failure TECHNIQUE: Multiple real-time sonographic images of the kidneys and bladder were obtained. COMPARISON: None FINDINGS: RIGHT kidney measures 7.8 cm in length. No hydronephrosis. LEFT kidney measures 9.8 cm in length. No hydronephrosis. Increased echogenicity of bilateral kidneys. Right kidney appears atrophic. Engel catheter in the urinary bladder. IMPRESSION: No acute finding. Increased echogenicity of bilateral kidneys can be seen in chronic medical renal disease.
[2025-04-26 16:30] LABS: Sodium 141 mmol/L (136-145)
[2025-04-26 16:31] LABS: Anion Gap 14 (5-15)
--- NOTE | 2025-04-26 16:31 | DVHPN2 ---
Subjective Patient continues to have altered mental status. Reviewed: Care Plan, H&P, Labs, Medications, Previous Orders Changes from previous H/P or p: No Changes General: Per HPI Objective Vitals Vital Signs Date Time Temp Pulse Resp B/P (MAP) Pulse Ox O2 Delivery O2 Flow Rate FiO2 04/26/25 14:15 74 15 107/47 (67) 98 04/26/25 12:52 Nasal Cannula 2.0 04/26/25 12:52 28 04/26/25 11:42 98.0 98.0 Intake/Output Intake and Output 04/26/25 07:00 Intake Total 2250 ml Output Total 1000 ml Balance 1250 ml Intake IV Total 2250 ml Output Urine Total 1000 ml General Appearance: Alert, Oriented X3, Cooperative, mild distress, Other (Morbid obesity) HEENT: Atraumatic, PERRLA Lungs: Clear to auscultation, Normal air movement Cardiovascular: Normal S1, Normal S2 Abdomen: Normal bowel sounds, Soft, No tenderness, No hepatospenomegaly Neuro: Cranial nerves 3-12 NL Medications Current Medications Medications Dose Ordered Sig/Bárbara Route Start Time Stop Time Status Last Admin Dose Admin Acetaminophen 650 mg Q6HP PRN PO 04/25/25 23:30 04/26/25 00:14 650 MG Cefepime HCl 50 ml @ 12.5 mls/hr Q12HR IV 04/26/25 10:00 UNV Pantoprazole Sodium 40 mg DAILY IV 04/26/25 10:00 04/26/25 10:07 40 MG Albuterol 2.5 mg Q6HWA [facility] 04/26/25 06:00 04/26/25 12:52 2.5 MG Ipratropium [place] 0.5 mg Q6HWA [facility] 04/26/25 06:00 04/26/25 12:52 0.5 MG Budesonide 0.25 mg BID NEB 04/26/25 10:00 04/26/25 06:52 0.25 MG Cefepime HCl 50 ml @ 12.5 mls/hr Q24H IV 04/26/25 20:00 Future Hold Sodium Chloride 1,000 ml @ 100 mls/hr Q10H IV 04/26/25 03:00 04/26/25 04:04 100 MLS/HR Norepinephrine Bitartrate 250 ml @ 3.75 mls/hr Q24H IV 04/26/25 05:15 04/26/25 07:46 3.75 MLS/HR Apixaban 5 mg BID PO 04/26/25 10:00 04/26/25 10:06 5 MG Amiodarone HCl 200 mg Q12HR PO 04/26/25 22:00 Meropenem 50 ml @ 17 mls/hr Q12HR IV 04/26/25 22:00 Laboratory Results Laboratory Tests 04/26/25 04:39 Chemistry Test 04/25/25 23:13 04/26/25 04:39 04/26/25 07:47 04/26/25 16:08 Calcium Level 7.4 mg/dL (8.7-10.4) L 7.0 mg/dL (8.7-10.4) L 7.7 mg/dL (8.7-10.4) L Pending Magnesium Level 1.5 mg/dL (1.6-2.6) L Albumin 3.0 g/dL (3.2-4.8) L Total Protein 5.0 g/dL (5.7-8.2) L Phosphorus Level 4.6 mg/dL (2.4-5.1) Coagulation Test 04/25/25 23:13 Prothrombin Time 12.0 sec (9.3-11.8) H Prothrombin Time INR 1.15 (0.9-1.15) Activated Partial Thromboplast Time 31.7 SEC (24.5-34.5) Cardiac Markers Test 04/25/25 23:13 B-Type Natriuretic Peptide 146.09 pg/mL (0-100) LFT Test 04/26/25 04:39 Alanine Aminotransferase (ALT) 24 U/L (7-40) Alkaline Phosphatase 42 U/L (46-116) L Aspartate Amino Transferase (AST) 59 U/L (13-40) H Total Bilirubin 0.3 mg/dL (0.2-1.0) HgA1c, TSH Test 04/25/25 23:13 Hemoglobin A1c 5.6 % A1C (<5.7) Thyroid Stimulating Hormone (TSH) 29.16 uIU/mL (0.55-4.78) H Urinalysis Test 04/25/25 12:59 04/26/25 09:15 Urine Color Yellow (Yellow) Urine Clarity Turbid (Clear) H Urine pH 6.0 (5.0-9.0) Urine Specific [place] 1.008 (1.001-1.035) Urine Protein Trace (Negative) H Urine Ketones Negative (Negative) Urine Blood Trace /uL (Negative) H Urine Nitrite Negative (Negative) Urine Bilirubin Negative (Negative) Urine Urobilinogen Normal mg/dL (Negative) Urine Leukocyte Esterase 3+ /uL (Negative) Urine RBC 1 /hpf (0 - 4) Urine WBC Clumps Present /hpf (None Seen) Urine Microscopic WBC 395 /HPF (0-5) H Urine Squamous Epithelial Cells Few /hpf (<5) Urine Bacteria Many /hpf (None Seen) H Urine Hyaline Casts Few /lpf (0 - 2) Urine Glucose Normal mg/dL (Normal) Urine Creatinine 60.04 mg/dL (30.0-125.0) Urine Protein/Creatinine Ratio 1.09 Urine Sodium 16 mmol/L (40-220) L Urine Total Protein 65.2 mg/dL (1-14) H Microbiology Microbiology Date/Time Source Procedure Growth Status 04/26/25 02:00 Nose MRSA Screen - Final Methicillin Resistant S.aureus Complete 04/25/25 16:06 Blood Blood Culture - Preliminary NO GROWTH AFTER 24 HOURS OF INCUBATION. Resulted Labs and/or images reviewed: Labs reviewed by me, Image(s) reviewed by me Assessment/Plan Assessment/Plan Impression: -Septic shock -bacteremia with Gram-negative rods in the blood -acute kidney injury, vasomotor nephropathy -hypokalemia -complicated cystitis -obesity -acute on chronic hypoxic respiratory failure -COPD -syncope with collapse, probably secondary to hypotension -metabolic encephalopathy Plan: -change antibiotics to Zyvox and Meropenem -nephrology consultation. Kidney ultrasound -potassium replacement -continue IV hydration -continue to wean norepinephrine drip, currently on 10 micrograms/minute -ramos cultures -O2 supplementation to keep saturation greater than 92% -bronchodilators as needed -repeat BMP this evening, replace potassium as needed -a.m. labs, chest x-ray Critical care time spent with patient discussing and formulating plan of care: 40 minutes. This does not include time spent performing procedures. This medical document was created using an electronic medical record system with [employer] dictation system. Although this document has been carefully reviewed, there may still be some phonetic and typographical errors. These areas are purely typographical due to imperfections of the software programs, and do not reflect any compromise in the patient's medical care. Plan discussed with: Patient, Other (RN) My Orders Orders - SLIM ANAND NP Procedure Category Date Status Time Osmolality, Serum LAB 04/26/25 In Process 15:46 Basic Metabolic Panel LAB 04/26/25 In Process 15:46 Kidney US 04/26/25 Taken 15:46 Meropenem 500mg Ivpb PHA 04/26/25 In Process (Merrem 500mg/Ns) 22:00 Communication Order ORDERS 04/26/25 Verified 16:22 Mupirocin 2% Oint PHA 04/26/25 Verified Mrsa Nares (Bactroban 22:00 Linzeolid 600 Mg Ivpb PHA 04/26/25 Verified 22:00 Date of Service: Apr 26, 2025 Billing Provider: SLIM ANAND NP Common Visit Codes: [id number] CARE 30-74 MIN SLIM ANAND NP Apr 26, 2025 16:31
[2025-04-26 16:36] LABS: BUN/Creatinine Ratio 14.3 (10.0-20.0)
[2025-04-26 16:41] LABS: Carbon Dioxide 18 mmol/L (20-31); Chloride 109 mmol/L (98-107); Potassium 2.9 mmol/L (3.5-5.1)
[2025-04-26 16:42] LABS: Blood Urea Nitrogen 42 mg/dL (9-23); Calcium 7.5 mg/dL (8.7-10.4); Glucose 121 mg/dL (74-106)
[2025-04-26] MEDS: AMIODARONE HCL 200 MG TAB PO SCH (21:08)
[2025-04-26] MEDS: MEROPENEM 500MG IVPB 50 ML IV SCH (21:08)
[2025-04-26] MEDS: LINEZOLID 600MG/300ML 300 ML IV SCH (21:09)
[2025-04-26] MEDS: MUPIROCIN 2% OINT 15gm or 22gm FOR MRSA NARES EACHNOSTRI SCH (21:25)
[2025-04-26] MEDS ORDERED: PROMETHAZINE-DM 5 ML ORAL SYRUP PO PRN (21:45)
[2025-04-27] VITALS (14 sets, daily range): BP systolic 111–136; BP diastolic 49–72; PULSE 78–94; RESP 15–22; TEMP 96.9–98.3; O2SAT 95–100
[2025-04-27] MEDS: METOCLOPRAMIDE HCL 5MG/ml INJ 2ml VIAL IV ONE (00:47)
[2025-04-27] MEDS: HYDROcodone-ACET 5/325MG TAB PO ONE (00:47)
[2025-04-27 04:06] LABS: Hematocrit 27.3 % (36.0-46.0); Hemoglobin 8.9 g/dL (12.2-16.2); Mean Corpuscular Hemoglobin 26.9 pg (28.0-32.0); Mean Corpuscular Volume 82.7 fL (80.0-100.0); Nucleated Red Blood Cells % 0.0 %
[2025-04-27 04:24] LABS: Chloride 106 mmol/L (98-107); Sodium 139 mmol/L (136-145)
[2025-04-27 04:25] LABS: Anion Gap 16 (5-15)
[2025-04-27 04:31] LABS: BUN/Creatinine Ratio 15.1 (10.0-20.0); Glucose 103 mg/dL (74-106)
[2025-04-27 04:36] LABS: Blood Urea Nitrogen 41 mg/dL (9-23); Calcium 7.6 mg/dL (8.7-10.4); Carbon Dioxide 17 mmol/L (20-31); Potassium 3.0 mmol/L (3.5-5.1)
[2025-04-27] MEDS: POTASSIUM EFFERVESENT TAB 25 MEQ PO ONE (08:47)
--- NOTE | 2025-04-27 08:57 | DVHPN2 ---
Subjective Patient more alert today. Reports having generalized weakness Reviewed: Care Plan, H&P, Labs, Medications, Previous Orders Changes from previous H/P or p: Changes General: Per HPI Objective Vitals Vital Signs Date Time Temp Pulse Resp B/P (MAP) Pulse Ox O2 Delivery O2 Flow Rate FiO2 04/27/25 08:00 99.1 83 20 131/56 (81) 99 99.1 04/27/25 08:00 Nasal Cannula* 4 36 Intake/Output Intake and Output 04/27/25 07:00 Intake Total 3175.625 ml Output Total 1000 ml Balance 2175.625 ml Intake Oral 240 ml IV Total 2935.625 ml Output Urine Total 1000 ml General Appearance: Alert, Oriented X3, Cooperative, mild distress, Other (Morbid obesity) HEENT: Atraumatic, PERRLA Lungs: Clear to auscultation, Normal air movement Cardiovascular: Normal S1, Normal S2 Abdomen: Normal bowel sounds, Soft, No tenderness, No hepatospenomegaly Neuro: Cranial nerves 3-12 NL Skin: Dry, Intact Psych/Mental Status: Mental status NL, Mood NL Medications Current Medications Medications Dose Ordered Sig/Bárbara Route Start Time Stop Time Status Last Admin Dose Admin Acetaminophen 650 mg Q6HP PRN PO 04/25/25 23:30 04/26/25 19:04 650 MG Cefepime HCl 50 ml @ 12.5 mls/hr Q12HR IV 04/26/25 10:00 UNV Pantoprazole Sodium 40 mg DAILY IV 04/26/25 10:00 04/26/25 10:07 40 MG Albuterol 2.5 mg Q6HWA [facility] 04/26/25 06:00 04/27/25 07:02 2.5 MG Ipratropium [place] 0.5 mg Q6HWA [facility] 04/26/25 06:00 04/27/25 07:02 0.5 MG Budesonide 0.25 mg BID NEB 04/26/25 10:00 04/27/25 07:02 0.25 MG Norepinephrine Bitartrate 250 ml @ 3.75 mls/hr Q24H IV 04/26/25 05:15 04/26/25 07:46 3.75 MLS/HR Apixaban 5 mg BID PO 04/26/25 10:00 04/26/25 21:07 5 MG Amiodarone HCl 200 mg Q12HR PO 04/26/25 22:00 04/26/25 21:08 200 MG Meropenem 50 ml @ 17 mls/hr Q12HR IV 04/26/25 22:00 04/26/25 21:08 17 MLS/HR Mupirocin 1 applic BID EACHNOSTRI 04/26/25 22:00 05/01/25 21:59 Linezolid 300 ml @ 150 mls/hr Q12HR IV 04/26/25 22:00 04/26/25 21:09 150 MLS/HR Promethazine HCl 12.5 mg Q6HP PRN PO 04/26/25 21:45 Sodium Chloride 1,000 ml @ 75 mls/hr [id number] IV 04/27/25 09:00 UNV Laboratory Results Laboratory Tests 04/27/25 03:10 Chemistry Test 04/26/25 16:08 04/27/25 03:10 Calcium Level 7.5 mg/dL (8.7-10.4) L 7.6 mg/dL (8.7-10.4) L Urinalysis Test 04/25/25 12:59 04/26/25 09:15 Urine Color Yellow (Yellow) Urine Clarity Turbid (Clear) H Urine pH 6.0 (5.0-9.0) Urine Specific [place] 1.008 (1.001-1.035) Urine Protein Trace (Negative) H Urine Ketones Negative (Negative) Urine Blood Trace /uL (Negative) H Urine Nitrite Negative (Negative) Urine Bilirubin Negative (Negative) Urine Urobilinogen Normal mg/dL (Negative) Urine Leukocyte Esterase 3+ /uL (Negative) Urine RBC 1 /hpf (0 - 4) Urine WBC Clumps Present /hpf (None Seen) Urine Microscopic WBC 395 /HPF (0-5) H Urine Squamous Epithelial Cells Few /hpf (<5) Urine Bacteria Many /hpf (None Seen) H Urine Hyaline Casts Few /lpf (0 - 2) Urine Glucose Normal mg/dL (Normal) Urine Creatinine 60.04 mg/dL (30.0-125.0) Urine Protein/Creatinine Ratio 1.09 Urine Sodium 16 mmol/L (40-220) L Urine Total Protein 65.2 mg/dL (1-14) H Microbiology Microbiology Date/Time Source Procedure Growth Status 04/26/25 02:00 Nose MRSA Screen - Final Methicillin Resistant S.aureus Complete 04/25/25 16:06 Blood Blood Culture - Preliminary NO GROWTH AFTER 24 HOURS OF INCUBATION. Resulted Labs and/or images reviewed: Labs reviewed by me, Image(s) reviewed by me Assessment/Plan Assessment/Plan Impression: -Septic shock -bacteremia with Gram-negative rods in the blood -acute kidney injury, vasomotor nephropathy -hypokalemia -complicated cystitis -obesity -acute on chronic hypoxic respiratory failure -COPD -syncope with collapse, probably secondary to hypotension -metabolic encephalopathy, resolved Plan: Events: Patient weaned off of norepinephrine. Renal function improving. Improved urine output. -continue antibiotic therapy with Merrem and Zosyn. Deescalate when cultures available -nephrology consultation. Recommendations reviewed -continue IV hydration -ramos cultures : Pending -O2 supplementation to keep saturation greater than 92% -bronchodilators as needed -potassium replacement -a.m. labs, chest x-ray Total time spent with patient discussing and formulating plan of care: 35 minutes. This medical document was created using an electronic medical record system with [employer] dictation system. Although this document has been carefully reviewed, there may still be some phonetic and typographical errors. These areas are purely typographical due to imperfections of the software programs, and do not reflect any compromise in the patient's medical care. Plan discussed with: Patient, Other (RN) My Orders Orders - SLIM ANAND [employer] Procedure Category Date Status Time Kidney US 04/26/25 Resulted 15:46 Meropenem 500mg Ivpb PHA 04/26/25 In Process (Merrem 500mg/Ns) 22:00 Communication Order ORDERS 04/26/25 Transmitted 16:22 Mupirocin 2% Oint PHA 04/26/25 In Process Mrsa Nares (Bactroban 22:00 Linezolid 600mg/300ml PHA 04/26/25 In Process (Zyvox) 22:00 Basic Metabolic Panel LAB 04/28/25 Verified 05:00 Basic Metabolic Panel LAB 04/29/25 Verified 05:00 Basic Metabolic Panel LAB 04/30/25 Verified 05:00 Complete Blood Count LAB 04/28/25 Verified 05:00 Complete Blood Count LAB 04/29/25 Verified 05:00 Complete Blood Count LAB 04/30/25 Verified 05:00 Magnesium LAB 04/27/25 Logged 08:50 Sodium Chloride 0.9% PHA 04/27/25 Logged 09:00 Date of Service: Apr 27, 2025 Billing Provider: SLIM ANAND NP Common Visit Codes: [id number] INP/OBS CARE(HIGH) SLIM ANAND NP Apr 27, 2025 08:56
[2025-04-27] MEDS: SODIUM CHLORIDE 0.9% 1,000 ML IV SCH (09:40)
--- NOTE | 2025-04-27 13:52 | DVHPN2 ---
Progress Note Date Seen: Apr 27, 2025 Resident Creating Document: MARCELLO BURDEN RESIDENT Medical Necessity Reason Pt with a Central, PICC or Fol: No Subjective Review of Systems Ms. Penaloza is a 54-year-old female with severe aortic insufficiency, moderate MR, moderate TR, COPD on 4 L home oxygen, CKD 3B, questionable rheumatoid arthritis and Crohn's disease who presented to the EMS with chief complaint of recurrent falls. Patient she has been experiencing recurrent episodes of fall and syncope preceded by dizziness and the legs giving out. She has been having these episodes since 2022. She was intubated for pneumonia and MRSA bacteremia in 2022. She reports that she stood up from bed and upon walking to the bathroom she felt the sudden onset of bilateral lower extremity numbness and subsequent fall injury and she fell, hit her head. Patient is requiring IV pressor support with Levophed of 12. Patient recently had 86/20 which showed 60% EF, severe AI, moderate MR, moderate TR. Nephrology consulted for NYASIA and CKD. Baseline creatinine GFR 1.63/37 Past medical history:severe aortic insufficiency, moderate MR, moderate TR, COPD on 4 L home oxygen, CKD 3B, questionable rheumatoid arthritis and Crohn's disease Past surgical history: EBENEZER: Back surgery: Hysterectomy Home medication: Patient denies taking biological agents or methotrexate. Eliquis 5 mg p.o. b.i.d., amiodarone 200 mg daily, clonidine 0.1 mg b.i.d., furosemide 40 mg p.o. b.i.d., ibuprofen p.r.n., metoprolol 200 mg b.i.d., rosuvastatin, tizanidine Follow up Dr. Contreras. 04/26-Patient seen and examined in the ER. On IV Levophed. 04/27-patient seen and examined. Epogen ordered. Continue NS 75 cc. Blood culture showing Gram-negative rods. Objective vital signs Vital Sign Date Time Temp Pulse Resp B/P (MAP) Pulse Ox O2 Delivery O2 Flow Rate FiO2 04/27/25 13:41 88 17 100 04/27/25 13:32 Nasal Cannula* 4 36 04/27/25 12:00 98.5 115/46 (69) 98.5 Total Intake and Output 04/26/25 04/26/25 04/27/25 15:00 23:00 07:00 Intake Total 1198.125 ml 1177.50 ml 800 ml Output Total 1000 ml Balance 1198.125 ml 177.50 ml 800 ml medications Current Medications Medications Dose Ordered Sig/Bárbara Route Start Time Stop Time Status Last Admin Dose Admin Acetaminophen 650 mg Q6HP PRN PO 04/25/25 23:30 04/26/25 19:04 650 MG Cefepime HCl 50 ml @ 12.5 mls/hr Q12HR IV 04/26/25 10:00 UNV Pantoprazole Sodium 40 mg DAILY IV 04/26/25 10:00 04/27/25 10:01 40 MG Albuterol 2.5 mg Q6HWA [facility] [place] 04/26/25 06:00 04/27/25 13:32 2.5 MG Ipratropium [place] 0.5 mg Q6HWA [facility] [place] 04/26/25 06:00 04/27/25 13:32 0.5 MG Budesonide 0.25 mg BID NEB 04/26/25 10:00 04/27/25 07:02 0.25 MG Norepinephrine Bitartrate 250 ml @ 3.75 mls/hr Q24H IV 04/26/25 05:15 04/26/25 07:46 3.75 MLS/HR Apixaban 5 mg BID PO 04/26/25 10:00 04/27/25 10:02 5 MG Amiodarone HCl 200 mg Q12HR PO 04/26/25 22:00 04/27/25 10:02 200 MG Meropenem 50 ml @ 17 mls/hr Q12HR IV 04/26/25 22:00 04/27/25 10:01 17 MLS/HR Mupirocin 1 applic BID EACHNOSTRI 04/26/25 22:00 05/01/25 21:59 04/27/25 10:01 1 APPLIC Linezolid 300 ml @ 150 mls/hr Q12HR IV 04/26/25 22:00 04/27/25 10:02 150 MLS/HR Promethazine HCl 12.5 mg Q6HP PRN PO 04/26/25 21:45 Sodium Chloride 1,000 ml @ 75 mls/hr [id number] IV 04/27/25 09:00 04/27/25 09:40 75 MLS/HR Examination Patient lying in bed, in no acute distress General: Obese, afebrile, palor, mucosae are moist Cardiovascular: Regular S1 and S2. S3 heard. No JVD elevation. Trace pitting edema bilaterally Respiratory: Decreased bilateral air entry on home oxygen Abdomen: Soft, nontender, nondistended, normoactive bowel sounds, no rebound tenderness, no organomegaly, no masses Genitourinary: Deferred MSK/skin: Mobilizes 4 limbs. Skin is dry and warm Neurological: No motor, no sensitive deficits, normal speech. Pupils are isocoric and reactive. Psych/Mental Status: A/Ox3 laboratory and microbiology Laboratory Tests 04/27/25 03:10 Test 04/27/25 03:10 Range/Units Serum Glucose 103 74-106 mg/dL Microbiology Date/Time Source Procedure Growth Status 04/26/25 10:08 Voided Urine Urine Culture - Preliminary Resulted 04/26/25 02:00 Nose MRSA Screen - Final Methicillin Resistant S.aureus Complete 04/25/25 16:06 Blood Blood Culture - Preliminary NO GROWTH AFTER 24 HOURS OF INCUBATION. Resulted Labs and/or images reviewed: Labs reviewed by me, Image(s) reviewed by me Problem List/Assessment/Plan Problem List/Assessment/Plan Acute kidney injury in the setting of sepsis superimposed on CKD 3B Septic shock secondary to UTI and pneumonia requiring IV pressor support Syncope in the setting of sepsis and valvular disease Acute cystitis, previous history of Klebsiella UTI Chronic heart failure preserved ejection fraction COPD on home oxygen Chronic respiratory failure Severe aortic insufficiency Moderate MR/moderate TR Anemia, normocytic due to CKD Hypokalemia, hypomagnesemia Undiagnosed thyroid disorder Secondary hyperparathyroidism BNP 146 Prelim blood culture showing Gram-negative rods Baseline creatinine/GFR 1.63/37 Plan: BUN/creatinine trending down, continue IV NS at 75 cc/hour. Urine electrolytes pending, patient's NYASIA is likely in the setting of sepsis. Monitor vanco trough, maintained at less than 20 Given hemoglobin 8.9, [place] [id number] units SC once. Goal hemoglobin greater than 10 Follow up with the ESR, CRP, SENTHIL panel, rheumatoid arthritis panel. Patient requiring IV pressors, keep map greater than 65 Avoid antihypertensive at this time Avoid NSAIDs/ibuprofen Strict I&Os Cardiology consult appreciated We will continue to follow up PATIENT HAS 2 MEDICAL RECORDS, [id number] IS THE OTHER MR Plan discussed with patient in which all questions have been answered Case discussed with Dr. Luis Plan discussed with: Patient Sepsis reassessment post fluid Is the fluid challenge complet: Yes Date of Reassessment: Apr 25, 2025 Time of Reassessment: 1899 Blood Culture Time: 1534 Time Antibiotics Given: 154 Systolic BP: 99 Diastolic BP: 47 Blood Pressure Mean: 64 Respiration: 12 Respiratory Effort: Non-Labored, Labored Respiratory Pattern: Regular Oxygen Saturation: 100 Pulse Rate: 64 Pulse Location: Radial Pulse Strength: Normal Pulse Assessment Method: Palpation Pulse Rhythm: Regular Capillary Refill: < 3 seconds Heart Sounds: S1 & S2 Breath sounds: Clear Skin Moisture: Dry Skin Tugor: WNL Skin Color: WNL MARCELLO BURDEN RESIDENT Apr 27, 2025 13:52
[2025-04-27] MEDS: MAGNESIUM OXIDE 400 MG TAB PO ONE (14:35)
[2025-04-27] MEDS: HYDROcodone-ACET 5/325MG TAB PO PRN (14:36)
[2025-04-27] MEDS: EPOETIN ALFA-EPBX 10,000 UNIT/1ML VIAL SC ONE (22:02)
[2025-04-28] VITALS (14 sets, daily range): BP systolic 129–156; BP diastolic 73–87; PULSE 74–105; RESP 16–20; TEMP 98–99.7; O2SAT 93–99
[2025-04-28 05:40] LABS: Hematocrit 27.9 % (36.0-46.0); Hemoglobin 9.3 g/dL (12.2-16.2); Mean Corpuscular Hemoglobin 27.5 pg (28.0-32.0); Mean Corpuscular Volume 82.6 fL (80.0-100.0); Nucleated Red Blood Cells % 0.1 %
[2025-04-28 05:42] LABS: Calcium 8.7 mg/dL (8.7-10.4); Sodium 139 mmol/L (136-145)
[2025-04-28 05:43] LABS: Anion Gap 13 (5-15); Chloride 107 mmol/L (98-107); Potassium 3.2 mmol/L (3.5-5.1)
[2025-04-28 05:44] LABS: Carbon Dioxide 19 mmol/L (20-31)
[2025-04-28 05:48] LABS: BUN/Creatinine Ratio 15.1 (10.0-20.0)
[2025-04-28 05:49] LABS: Magnesium 1.7 mg/dL (1.6-2.6)
[2025-04-28 05:58] LABS: Blood Urea Nitrogen 34 mg/dL (9-23); Glucose 116 mg/dL (74-106)
[2025-04-28] MEDS ORDERED: TIZA-142 PO (10:53)
[2025-04-28 12:07] LABS: Anti-Centromere B Antibody <0.2 AI (0.0-0.9); Anti-Jo-1 Antibody <0.2 AI (0.0-0.9); Anti-Nuclear Antibody Direct Negative (Negative); Anti-dsDNA Antibody <1 IU/mL (0-9); Antichromatin Antibody <0.2 AI (0.0-0.9); Antiscleroderma-70 Antibody <0.2 AI (0.0-0.9); Sjogren's Anti-SS-A Antibody <0.2 AI (0.0-0.9); Sjogren's Anti-SS-B Antibody <0.2 AI (0.0-0.9)
[2025-04-28] MEDS: MEROPENEM 1GM IVPB 50 ML IV SCH (13:09)
--- NOTE | 2025-04-28 13:34 | DVHPN2 ---
Progress Note Date Seen: Apr 28, 2025 Resident Creating Document: MARCELLO BURDEN RESIDENT Medical Necessity Reason Pt with a Central, PICC or Fol: No Subjective Review of Systems Ms. Penaloza is a 54-year-old female with severe aortic insufficiency, moderate MR, moderate TR, COPD on 4 L home oxygen, CKD 3B, questionable rheumatoid arthritis and Crohn's disease who presented to the EMS with chief complaint of recurrent falls. Patient she has been experiencing recurrent episodes of fall and syncope preceded by dizziness and the legs giving out. She has been having these episodes since 2022. She was intubated for pneumonia and MRSA bacteremia in 2022. She reports that she stood up from bed and upon walking to the bathroom she felt the sudden onset of bilateral lower extremity numbness and subsequent fall injury and she fell, hit her head. Patient is requiring IV pressor support with Levophed of 12. Patient recently had 86/20 which showed 60% EF, severe AI, moderate MR, moderate TR. Nephrology consulted for NYASIA and CKD. Baseline creatinine GFR 1.63/37 Past medical history:severe aortic insufficiency, moderate MR, moderate TR, COPD on 4 L home oxygen, CKD 3B, questionable rheumatoid arthritis and Crohn's disease Past surgical history: EBENEZER: Back surgery: Hysterectomy Home medication: Patient denies taking biological agents or methotrexate. Eliquis 5 mg p.o. b.i.d., amiodarone 200 mg daily, clonidine 0.1 mg b.i.d., furosemide 40 mg p.o. b.i.d., ibuprofen p.r.n., metoprolol 200 mg b.i.d., rosuvastatin, tizanidine Follow up Dr. Contreras. 04/26-Patient seen and examined in the ER. On IV Levophed. 04/27-patient seen and examined. Epogen ordered. Continue NS 75 cc. Blood culture showing Gram-negative rods. 04/28-patient examined, bibasilar crackles. Lower extremity swelling resolving. Urine output 3600 cc in last day. Hemoglobin stable. BUN/creatinine trending down. Objective vital signs Vital Sign Date Time Temp Pulse Resp B/P (MAP) Pulse Ox O2 Delivery O2 Flow Rate FiO2 04/28/25 12:43 99.7 95 17 129/73 (91) 97 99.7 04/28/25 08:00 Nasal Cannula* 4 36 Total Intake and Output 7/22/25 7/22/25 7/23/25 15:00 23:00 07:00 Intake Total 200 ml 2150 ml Output Total 1850 ml 1750 ml Balance -1850 ml 200 ml 400 ml medications Current Medications Medications Dose Ordered Sig/Bárbara Route Start Time Stop Time Status Last Admin Dose Admin Acetaminophen 650 mg Q6HP PRN PO 04/25/25 23:30 04/28/25 10:37 650 MG Cefepime HCl 50 ml @ 12.5 mls/hr Q12HR IV 04/26/25 10:00 UNV Albuterol 2.5 mg Q6HWA NEB 04/26/25 06:00 04/28/25 12:14 2.5 MG Ipratropium [place] 0.5 mg Q6HWA NEB 04/26/25 06:00 04/28/25 12:14 0.5 MG Apixaban 5 mg BID PO 04/26/25 10:00 04/28/25 10:17 5 MG Amiodarone HCl 200 mg Q12HR PO 04/26/25 22:00 04/28/25 10:17 200 MG Mupirocin 1 applic BID EACHNOSTRI 04/26/25 22:00 05/01/25 21:59 04/28/25 10:31 1 APPLIC Promethazine HCl 12.5 mg Q6HP PRN PO 04/26/25 21:45 Sodium Chloride 1,000 ml @ 75 mls/hr [id number] IV 04/27/25 09:00 04/27/25 22:41 75 MLS/HR Acetaminophen/ Hydrocodone Bitart 1 tab Q6HPRN PRN PO 04/27/25 14:00 04/28/25 13:19 1 TAB Meropenem 50 ml @ 17 mls/hr Q12H IV 04/28/25 12:00 04/28/25 13:09 17 MLS/HR Pantoprazole Sodium 40 mg DAILY@0600 PO 04/29/25 06:00 Sertraline HCl 200 mg DAILY PO 04/29/25 10:00 Metoprolol Succinate 25 mg DAILY PO 04/29/25 10:00 Examination Patient lying in bed, in no acute distress General: Obese, afebrile, palor, mucosae are moist Cardiovascular: Regular S1 and S2. S3 heard. No JVD elevation. Trace pitting edema bilaterally Respiratory: Decreased bilateral air entry on home oxygen Abdomen: Soft, nontender, nondistended, normoactive bowel sounds, no rebound tenderness, no organomegaly, no masses Genitourinary: Deferred MSK/skin: Mobilizes 4 limbs. Skin is dry and warm Neurological: No motor, no sensitive deficits, normal speech. Pupils are isocoric and reactive. Psych/Mental Status: A/Ox3 laboratory and microbiology Laboratory Tests 04/28/25 05:00 Test 04/28/25 05:00 Range/Units Serum Glucose 116 H 74-106 mg/dL Microbiology Date/Time Source Procedure Growth Status 04/26/25 10:08 Voided Urine Urine Culture - Final Complete 04/26/25 02:00 Nose MRSA Screen - Final Methicillin Resistant S.aureus Complete 04/25/25 16:06 Blood Blood Culture - Preliminary NO GROWTH AFTER 48 HOURS OF INCUBATION. Resulted Labs and/or images reviewed: Labs reviewed by me, Image(s) reviewed by me Problem List/Assessment/Plan Problem List/Assessment/Plan Acute kidney injury in the setting of sepsis superimposed on CKD 3B Septic shock secondary to UTI and pneumonia requiring IV pressor support Syncope in the setting of sepsis and valvular disease Acute cystitis, previous history of Klebsiella UTI Chronic heart failure preserved ejection fraction COPD on home oxygen Chronic respiratory failure Severe aortic insufficiency Moderate MR/moderate TR Anemia, normocytic due to CKD Hypokalemia, hypomagnesemia Undiagnosed thyroid disorder Secondary hyperparathyroidism BNP 146 Prelim blood culture showing Gram-negative rods Urine culture Gram-negative rods Baseline creatinine/GFR 1.63/37 Plan: BUN/creatinine trending down, GFR improving, decreased IV NS to 50 cc/hour. Patient's NYASIA is likely in the setting of sepsis. Monitor vanco trough, maintained at less than 20 Hemoglobin up trending after Epogen supplementation. Goal hemoglobin greater than 10 Follow up with the ESR, CRP, SENTHIL panel, rheumatoid arthritis panel. Avoid antihypertensive at this time Avoid NSAIDs/ibuprofen Strict I&Os Cardiology consult appreciated We will continue to follow up Patient is off IV pressors PATIENT HAS 2 MEDICAL RECORDS, [id number] IS THE OTHER MR Plan discussed with patient in which all questions have been answered Case discussed with Dr. Luis Plan discussed with: Patient Sepsis reassessment post fluid Is the fluid challenge complet: Yes Date of Reassessment: Apr 25, 2025 Time of Reassessment: 1899 Blood Culture Time: 1534 Time Antibiotics Given: 1545 Systolic BP: 99 Diastolic BP: 47 Blood Pressure Mean: 64 Respiration: 12 Respiratory Effort: Non-Labored, Labored Respiratory Pattern: Regular Oxygen Saturation: 100 Pulse Rate: 64 Pulse Location: Radial Pulse Strength: Normal Pulse Assessment Method: Palpation Pulse Rhythm: Regular Capillary Refill: < 3 seconds Heart Sounds: S1 & S2 Breath sounds: Clear Skin Moisture: Dry Skin Tugor: WNL Skin Color: WNL MARCELLO BURDEN RESIDENT Apr 28, 2025 13:34
--- NOTE | 2025-04-28 14:42 | DVHPN2 ---
Subjective Patient more alert today. Reports having generalized weakness Reviewed: Care Plan, H&P, Labs, Medications, Previous Orders Changes from previous H/P or p: No Changes General: Per HPI Objective Vitals Vital Signs Date Time Temp Pulse Resp B/P (MAP) Pulse Ox O2 Delivery O2 Flow Rate FiO2 04/28/25 12:43 99.7 95 17 129/73 (91) 97 99.7 04/28/25 08:00 Nasal Cannula* 4 36 Intake/Output Intake and Output 04/28/25 07:00 Intake Total 2350 ml Output Total 3600 ml Balance -1250 ml Intake Oral 2350 ml Output Urine Total 3600 ml # Bowel Movements 4 General Appearance: Alert, Oriented X3, Cooperative, mild distress, Other (Morbid obesity) HEENT: Atraumatic, PERRLA Lungs: Clear to auscultation, Normal air movement Cardiovascular: Normal S1, Normal S2 Abdomen: Normal bowel sounds, Soft, No tenderness, No hepatospenomegaly Neuro: Cranial nerves 3-12 NL Skin: Dry, Intact Psych/Mental Status: Mental status NL, Mood NL Medications Current Medications Medications Dose Ordered Sig/Bárbara Route Start Time Stop Time Status Last Admin Dose Admin Acetaminophen 650 mg Q6HP PRN PO 04/25/25 23:30 04/28/25 10:37 650 MG Cefepime HCl 50 ml @ 12.5 mls/hr Q12HR IV 04/26/25 10:00 UNV Albuterol 2.5 mg Q6HWA NEB 04/26/25 06:00 04/28/25 12:14 2.5 MG Ipratropium [place] 0.5 mg Q6HWA NEB 04/26/25 06:00 04/28/25 12:14 0.5 MG Apixaban 5 mg BID PO 04/26/25 10:00 04/28/25 10:17 5 MG Amiodarone HCl 200 mg Q12HR PO 04/26/25 22:00 04/28/25 10:17 200 MG Mupirocin 1 applic BID EACHNOSTRI 04/26/25 22:00 05/01/25 21:59 04/28/25 10:31 1 APPLIC Promethazine HCl 12.5 mg Q6HP PRN PO 04/26/25 21:45 Acetaminophen/ Hydrocodone Bitart 1 tab Q6HPRN PRN PO 04/27/25 14:00 04/28/25 13:19 1 TAB Meropenem 50 ml @ 17 mls/hr Q12H IV 04/28/25 12:00 04/28/25 13:09 17 MLS/HR Pantoprazole Sodium 40 mg DAILY@0600 PO 04/29/25 06:00 Sertraline HCl 200 mg DAILY PO 04/29/25 10:00 Metoprolol Succinate 25 mg DAILY PO 04/29/25 10:00 Sodium Chloride 1,000 ml @ 50 mls/hr Q20H IV 04/28/25 13:45 Laboratory Results Laboratory Tests 04/28/25 05:00 Chemistry Test 04/28/25 05:00 Calcium Level 8.7 mg/dL (8.7-10.4) Magnesium Level 1.7 mg/dL (1.6-2.6) Urinalysis Test 04/25/25 12:59 04/26/25 09:15 Urine Color Yellow (Yellow) Urine Clarity Turbid (Clear) H Urine pH 6.0 (5.0-9.0) Urine Specific [place] 1.008 (1.001-1.035) Urine Protein Trace (Negative) H Urine Ketones Negative (Negative) Urine Blood Trace /uL (Negative) H Urine Nitrite Negative (Negative) Urine Bilirubin Negative (Negative) Urine Urobilinogen Normal mg/dL (Negative) Urine Leukocyte Esterase 3+ /uL (Negative) Urine RBC 1 /hpf (0 - 4) Urine WBC Clumps Present /hpf (None Seen) Urine Microscopic WBC 395 /HPF (0-5) H Urine Squamous Epithelial Cells Few /hpf (<5) Urine Bacteria Many /hpf (None Seen) H Urine Hyaline Casts Few /lpf (0 - 2) Urine Glucose Normal mg/dL (Normal) Urine Creatinine 60.04 mg/dL (30.0-125.0) Urine Protein/Creatinine Ratio 1.09 Urine Sodium 16 mmol/L (40-220) L Urine Total Protein 65.2 mg/dL (1-14) H Microbiology Microbiology Date/Time Source Procedure Growth Status 04/26/25 10:08 Voided Urine Urine Culture - Final Complete 04/26/25 02:00 Nose MRSA Screen - Final Methicillin Resistant S.aureus Complete 04/25/25 16:06 Blood Blood Culture - Preliminary NO GROWTH AFTER 48 HOURS OF INCUBATION. Resulted Labs and/or images reviewed: Labs reviewed by me, Image(s) reviewed by me Assessment/Plan Assessment/Plan Impression: -Septic shock -bacteremia with Gram-negative rods in the blood -acute kidney injury, vasomotor nephropathy -hypokalemia -complicated cystitis -obesity -acute on chronic hypoxic respiratory failure -COPD -syncope with collapse, probably secondary to hypotension -metabolic encephalopathy, resolved Plan: Events: Blood culture positive for ESBL, change Merrem to Invanz. -transferred to Medical/Surgical unit -nephrology consultation. Recommendations reviewed -continue IV hydration -ramos cultures: Blood positive for ESBL -O2 supplementation to keep saturation greater than 92% -bronchodilators as needed -potassium replacement -a.m. labs, chest x-ray Total time spent with patient discussing and formulating plan of care: 35 minutes. This medical document was created using an electronic medical record system with [employer] dictation system. Although this document has been carefully reviewed, there may still be some phonetic and typographical errors. These areas are purely typographical due to imperfections of the software programs, and do not reflect any compromise in the patient's medical care. Plan discussed with: Patient, Other (RN) My Orders Orders - SLIM ANAND NP Procedure Category Date Status Time * Wound Consult CONS 04/28/25 Transmitted Meropenem 1gm Ivpb PHA 04/28/25 In Process (Merrem 1gm/ Ns) 12:00 Pt Request For Service PT 04/29/25 Logged 04:00 Pantoprazole Tablet PHA 04/29/25 In Process (Protonix Tablet) 06:00 Sertraline Hcl PHA 04/29/25 In Process (Zoloft) 10:00 Metoprolol Xl PHA 04/29/25 In Process Succinate (Toprol Xl) 10:00 Invanz 1gm Ivpb Daily PHA 04/29/25 Transmitted 10:00 Blood Culture EVELIO 04/28/25 Transmitted 14:32 Date of Service: Apr 28, 2025 Billing Provider: SLIM ANAND NP Common Visit Codes: [id number] INP/OBS CARE(HIGH) SLIM ANAND NP Apr 28, 2025 14:42
[2025-04-28] MEDS: MAGNESIUM SULFATE 1GM/100ML 100 ML IV ONE (15:42)
[2025-04-28] MEDS: SODIUM CHLORIDE 0.9% 1,000 ML IV SCH (15:42)
[2025-04-28] MEDS: POTASSIUM CHL 20MEQ/100ML 100 ML IV ONE (18:24)
[2025-04-29] VITALS (13 sets, daily range): BP systolic 112–153; BP diastolic 71–92; PULSE 84–113; RESP 17–22; TEMP 96.4–99.7; O2SAT 85–100
[2025-04-29] MEDS: PANTOPRAZOLE 40 MG TAB PO SCH (06:38)
[2025-04-29 08:05] LABS: Hemoglobin 10.2 g/dL (12.2-16.2); Mean Corpuscular Volume 85.8 fL (80.0-100.0)
[2025-04-29 08:07] LABS: Hematocrit 32.9 % (36.0-46.0); Mean Corpuscular Hemoglobin 26.7 pg (28.0-32.0); Nucleated Red Blood Cells % 0.2 %
[2025-04-29 08:20] LABS: Potassium 3.7 mmol/L (3.5-5.1); Sodium 141 mmol/L (136-145)
[2025-04-29 08:21] LABS: Anion Gap 13 (5-15); Calcium 9.5 mg/dL (8.7-10.4)
[2025-04-29 08:22] LABS: Carbon Dioxide 18 mmol/L (20-31); Chloride 110 mmol/L (98-107)
[2025-04-29 08:26] LABS: BUN/Creatinine Ratio 12.9 (10.0-20.0); Blood Urea Nitrogen 22 mg/dL (9-23)
[2025-04-29 08:27] LABS: Glucose 127 mg/dL (74-106)
[2025-04-29] MEDS: SERTRALINE HCL 50 MG TAB PO SCH (09:40)
[2025-04-29] MEDS: ERTAPENEM SOD INJ 1 GM in SODIUM CHL 0.9% 50 ML IV SCH (09:41)
[2025-04-29] MEDS: METOPROLOL SUCCINATE XL 50 MG TAB PO SCH (09:41)
--- NOTE | 2025-04-29 11:09 | DVHPN2 ---
Progress Note Date Seen: Apr 29, 2025 Resident Creating Document: MARCELLO BURDEN RESIDENT Medical Necessity Reason Pt with a Central, PICC or Fol: No Subjective Review of Systems Ms. Penaloza is a 54-year-old female with severe aortic insufficiency, moderate MR, moderate TR, COPD on 4 L home oxygen, CKD 3B, questionable rheumatoid arthritis and Crohn's disease who presented to the EMS with chief complaint of recurrent falls. Patient she has been experiencing recurrent episodes of fall and syncope preceded by dizziness and the legs giving out. She has been having these episodes since 2022. She was intubated for pneumonia and MRSA bacteremia in 2022. She reports that she stood up from bed and upon walking to the bathroom she felt the sudden onset of bilateral lower extremity numbness and subsequent fall injury and she fell, hit her head. Patient is requiring IV pressor support with Levophed of 12. Patient recently had 86/20 which showed 60% EF, severe AI, moderate MR, moderate TR. Nephrology consulted for NYASIA and CKD. Baseline creatinine GFR 1.63/37 Past medical history:severe aortic insufficiency, moderate MR, moderate TR, COPD on 4 L home oxygen, CKD 3B, questionable rheumatoid arthritis and Crohn's disease Past surgical history: EBENEZER: Back surgery: Hysterectomy Home medication: Patient denies taking biological agents or methotrexate. Eliquis 5 mg p.o. b.i.d., amiodarone 200 mg daily, clonidine 0.1 mg b.i.d., furosemide 40 mg p.o. b.i.d., ibuprofen p.r.n., metoprolol 200 mg b.i.d., rosuvastatin, tizanidine Follow up Dr. Contreras. 04/26-Patient seen and examined in the ER. On IV Levophed. 04/27-patient seen and examined. Epogen ordered. Continue NS 75 cc. Blood culture showing Gram-negative rods. 04/28-patient examined, bibasilar crackles. Lower extremity swelling resolving. Urine output 3600 cc in last day. Hemoglobin stable. BUN/creatinine trending down. 04/29-patient seen, reports feeling better. Discontinued IV fluids. Urine output stable Objective vital signs Vital Sign Date Time Temp Pulse Resp B/P (MAP) Pulse Ox O2 Delivery O2 Flow Rate FiO2 04/29/25 09:41 108 153/92 04/29/25 08:40 96.4 22 92 96.4 04/29/25 08:00 Nasal Cannula* 4 36 Total Intake and Output 04/28/25 04/28/25 04/29/25 15:00 23:00 07:00 Intake Total 300 ml 2050 ml 4728 ml Output Total 1404 ml 1500 ml Balance 300 ml 646 ml 3228 ml medications Current Medications Medications Dose Ordered Sig/Bárbara Route Start Time Stop Time Status Last Admin Dose Admin Acetaminophen 650 mg Q6HP PRN PO 04/25/25 23:30 04/29/25 08:13 650 MG Cefepime HCl 50 ml @ 12.5 mls/hr Q12HR IV 04/26/25 10:00 UNV Albuterol 2.5 mg Q6HWA NEB 04/26/25 06:00 04/29/25 07:12 2.5 MG Ipratropium [place] 0.5 mg Q6HWA NEB 04/26/25 06:00 04/29/25 07:12 0.5 MG Apixaban 5 mg BID PO 04/26/25 10:00 04/29/25 09:41 5 MG Amiodarone HCl 200 mg Q12HR PO 04/26/25 22:00 04/29/25 09:41 200 MG Mupirocin 1 applic BID EACHNOSTRI 04/26/25 22:00 05/01/25 21:59 04/29/25 09:42 1 APPLIC Promethazine HCl 12.5 mg Q6HP PRN PO 04/26/25 21:45 Acetaminophen/ Hydrocodone Bitart 1 tab Q6HPRN PRN PO 04/27/25 14:00 04/29/25 05:57 1 TAB Pantoprazole Sodium 40 mg DAILY@0600 PO 04/29/25 06:00 04/29/25 06:38 40 MG Sertraline HCl 200 mg DAILY PO 04/29/25 10:00 04/29/25 09:40 200 MG Ertapenem 1 gm/ Sodium Chloride 50 ml @ 100 mls/hr DAILY IV 04/29/25 10:00 04/29/25 09:41 100 MLS/HR Metoprolol Succinate 50 mg DAILY PO 04/30/25 10:00 UNV Examination patient lying in bed, in no acute distress General: Obese, afebrile, palor, mucosae are moist Cardiovascular: Regular S1 and S2. S3 heard. No JVD elevation. Trace pitting edema bilaterally Respiratory: Decreased bilateral air entry on home oxygen Abdomen: Soft, nontender, nondistended, normoactive bowel sounds, no rebound tenderness, no organomegaly, no masses Genitourinary: Deferred MSK/skin: Mobilizes 4 limbs. Skin is dry and warm Neurological: No motor, no sensitive deficits, normal speech. Pupils are isocoric and reactive. Psych/Mental Status: A/Ox3 laboratory and microbiology Laboratory Tests 04/29/25 07:12 Test 04/29/25 07:12 Range/Units Serum Glucose 127 H 74-106 mg/dL Microbiology Date/Time Source Procedure Growth Status 04/26/25 10:08 Voided Urine Urine Culture - Final Complete 04/26/25 02:00 Nose MRSA Screen - Final Methicillin Resistant S.aureus Complete 04/25/25 16:06 Blood Blood Culture - Preliminary Resulted Labs and/or images reviewed: Labs reviewed by me, Image(s) reviewed by me Problem List/Assessment/Plan Problem List/Assessment/Plan Acute kidney injury in the setting of sepsis superimposed on CKD 3B Septic shock secondary to UTI and pneumonia requiring IV pressor support Syncope in the setting of sepsis and valvular disease Acute cystitis, previous history of Klebsiella UTI Chronic heart failure preserved ejection fraction COPD on home oxygen Chronic respiratory failure Severe aortic insufficiency Moderate MR/moderate TR Anemia, normocytic due to CKD Hypokalemia, hypomagnesemia Undiagnosed thyroid disorder Secondary hyperparathyroidism BNP 146 Prelim blood culture showing Gram-negative rods Urine culture Gram-negative rods Baseline creatinine/GFR 1.63/37 Plan: BUN/creatinine trending down, GFR improving, to baseline. Discontinued IV NS, Patient's NYASIA is likely in the setting of sepsis. Monitor vanco trough, maintained at less than 20 Hemoglobin up trending after Epogen supplementation. Goal hemoglobin greater than 10 Rheumatoid factor WNL, SENTHIL panel WNL, complement WNL Continue IV Invanz Avoid antihypertensive at this time Avoid NSAIDs/ibuprofen Strict I&Os Cardiology consult appreciated We will continue to follow up Patient is off IV pressors PATIENT HAS 2 MEDICAL RECORDS, [id number] IS THE OTHER MR Plan discussed with patient in which all questions have been answered Case discussed with Dr. Luis Plan discussed with: Patient Dietary Evaluation Review Comments: 1) [place] 1pk & nephro-roma 1 tab daily 2) Refer [employer] for weight management on discharge 3) Monitor lab values, wt trends, skin trends, Expected Outcomes/Goals: Wound to improve Lab values to improve Fu 3-5 days Sepsis reassessment post fluid Is the fluid challenge complet: Yes Date of Reassessment: Apr 25, 2025 Time of Reassessment: 190 Blood Culture Time: 1535 Time Antibiotics Given: 1545 Systolic BP: 99 Diastolic BP: 47 Blood Pressure Mean: 64 Respiration: 12 Respiratory Effort: Non-Labored, Labored Respiratory Pattern: Regular Oxygen Saturation: 100 Pulse Rate: 64 Pulse Location: Radial Pulse Strength: Normal Pulse Assessment Method: Palpation Pulse Rhythm: Regular Capillary Refill: < 3 seconds Heart Sounds: S1 & S2 Breath sounds: Clear Skin Moisture: Dry Skin Tugor: WNL Skin Color: WNL MARCELLO BURDEN RESIDENT Apr 29, 2025 11:09
--- NOTE | 2025-04-29 11:46 | DVHPN2 ---
Subjective Patient more alert today. Reports having generalized weakness Reviewed: Care Plan, H&P, Labs, Medications, Previous Orders Changes from previous H/P or p: No Changes General: Per HPI Objective Vitals Vital Signs Date Time Temp Pulse Resp B/P (MAP) Pulse Ox O2 Delivery O2 Flow Rate FiO2 04/29/25 09:41 108 153/92 04/29/25 08:40 96.4 22 92 96.4 04/29/25 08:00 Nasal Cannula* 4 36 Intake/Output Intake and Output 04/29/25 07:00 Intake Total 7078 ml Output Total 2904 ml Balance 4174 ml Intake Oral 6628 ml IV Total 450 ml Output Urine Total 2900 ml Stool Total 4 ml # Bowel Movements 5 General Appearance: Alert, Oriented X3, Cooperative, mild distress, Other (Morbid obesity) HEENT: Atraumatic, PERRLA Lungs: Clear to auscultation, Normal air movement Cardiovascular: Normal S1, Normal S2 Abdomen: Normal bowel sounds, Soft, No tenderness, No hepatospenomegaly Neuro: Cranial nerves 3-12 NL Skin: Dry, Intact Psych/Mental Status: Mental status NL, Mood NL Medications Current Medications Medications Dose Ordered Sig/Bárbara Route Start Time Stop Time Status Last Admin Dose Admin Acetaminophen 650 mg Q6HP PRN PO 04/25/25 23:30 04/29/25 08:13 650 MG Cefepime HCl 50 ml @ 12.5 mls/hr Q12HR IV 04/26/25 10:00 UNV Albuterol 2.5 mg Q6HWA NEB 04/26/25 06:00 04/29/25 07:12 2.5 MG Ipratropium [place] 0.5 mg Q6HWA NEB 04/26/25 06:00 04/29/25 07:12 0.5 MG Apixaban 5 mg BID PO 04/26/25 10:00 04/29/25 09:41 5 MG Amiodarone HCl 200 mg Q12HR PO 04/26/25 22:00 04/29/25 09:41 200 MG Mupirocin 1 applic BID EACHNOSTRI 04/26/25 22:00 05/01/25 21:59 04/29/25 09:42 1 APPLIC Promethazine HCl 12.5 mg Q6HP PRN PO 04/26/25 21:45 Acetaminophen/ Hydrocodone Bitart 1 tab Q6HPRN PRN PO 04/27/25 14:00 04/29/25 05:57 1 TAB Pantoprazole Sodium 40 mg DAILY@0600 PO 04/29/25 06:00 04/29/25 06:38 40 MG Sertraline HCl 200 mg DAILY PO 04/29/25 10:00 04/29/25 09:40 200 MG Ertapenem 1 gm/ Sodium Chloride 50 ml @ 100 mls/hr DAILY IV 04/29/25 10:00 04/29/25 09:41 100 MLS/HR Metoprolol Succinate 50 mg DAILY PO 04/30/25 10:00 Laboratory Results Laboratory Tests 04/29/25 07:12 Chemistry Test 04/29/25 07:12 Calcium Level 9.5 mg/dL (8.7-10.4) Urinalysis Test 04/25/25 12:59 04/26/25 09:15 Urine Color Yellow (Yellow) Urine Clarity Turbid (Clear) H Urine pH 6.0 (5.0-9.0) Urine Specific [place] 1.008 (1.001-1.035) Urine Protein Trace (Negative) H Urine Ketones Negative (Negative) Urine Blood Trace /uL (Negative) H Urine Nitrite Negative (Negative) Urine Bilirubin Negative (Negative) Urine Urobilinogen Normal mg/dL (Negative) Urine Leukocyte Esterase 3+ /uL (Negative) Urine RBC 1 /hpf (0 - 4) Urine WBC Clumps Present /hpf (None Seen) Urine Microscopic WBC 395 /HPF (0-5) H Urine Squamous Epithelial Cells Few /hpf (<5) Urine Bacteria Many /hpf (None Seen) H Urine Hyaline Casts Few /lpf (0 - 2) Urine Glucose Normal mg/dL (Normal) Urine Creatinine 60.04 mg/dL (30.0-125.0) Urine Protein/Creatinine Ratio 1.09 Urine Sodium 16 mmol/L (40-220) L Urine Total Protein 65.2 mg/dL (1-14) H Microbiology Microbiology Date/Time Source Procedure Growth Status 04/26/25 10:08 Voided Urine Urine Culture - Final Complete 04/26/25 02:00 Nose MRSA Screen - Final Methicillin Resistant S.aureus Complete 04/25/25 16:06 Blood Blood Culture - Preliminary Resulted Labs and/or images reviewed: Labs reviewed by me, Image(s) reviewed by me Assessment/Plan Assessment/Plan Impression: -Septic shock -bacteremia with Gram-negative rods in the blood -acute kidney injury, vasomotor nephropathy -hypokalemia -complicated cystitis -obesity -acute on chronic hypoxic respiratory failure -COPD -syncope with collapse, probably secondary to hypotension -metabolic encephalopathy, resolved Plan: Events: Midline placement. Discussed plan of care with the patient. Agreeable to home health services. -nephrology consultation. Recommendations reviewed -continue IV hydration -ramos cultures: Blood positive for ESBL -O2 supplementation to keep saturation greater than 92% -bronchodilators as needed -physical therapy -social service consultation for home IV antibiotics Total time spent with patient discussing and formulating plan of care: 35 minutes. This medical document was created using an electronic medical record system with [employer] system. Although this document has been carefully reviewed, there may still be some phonetic and typographical errors. These areas are purely typographical due to imperfections of the software programs, and do not reflect any compromise in the patient's medical care. Plan discussed with: Patient, Other (RN) My Orders Orders - SLIM ANAND NP Procedure Category Date Status Time Ertapenem Sod Inj PHA 04/29/25 In Process (Invanz) 10:00 Transfer Orders XFER 04/28/25 Transmitted 14:36 Blood Culture EVELIO 04/29/25 In Process 04:00 * Dietary Consult CONS 04/28/25 Transmitted 17:18 Apply Barrier Cream DEANDRA 04/28/25 In Process 14:50 Metoprolol Xl PHA 04/30/25 In Process Succinate (Toprol Xl) 10:00 Insert Midline ORDERS 04/29/25 Transmitted 11:00 * City Secretary CONS 04/29/25 Transmitted Consult Ss Consult To Arrange DEANDRA 04/29/25 In Process Home Iv 11:33 Date of Service: Apr 29, 2025 Billing Provider: SLIM ANAND NP Common Visit Codes: [id number] INP/OBS CARE(HIGH) SLIM ANAND NP Apr 29, 2025 11:46
[2025-04-29] MEDS: PROMETHAZINE HCL 6.25 MG/5 ML ORAL SYRUP PO PRN (16:52)
[2025-04-30] VITALS (11 sets, daily range): BP systolic 114–145; BP diastolic 69–82; PULSE 101–114; RESP 17–20; TEMP 97.5–98.7; O2SAT 89–99
[2025-04-30] MEDS: METOPROLOL SUCCINATE XL 50 MG TAB PO SCH (09:41)
[2025-04-30 10:06] LABS: Hematocrit 27.4 % (36.0-46.0); Hemoglobin 8.7 g/dL (12.2-16.2); Mean Corpuscular Hemoglobin 26.7 pg (28.0-32.0); Mean Corpuscular Volume 83.9 fL (80.0-100.0)
[2025-04-30 10:14] LABS: Sodium 142 mmol/L (136-145)
[2025-04-30 10:15] LABS: Anion Gap 11 (5-15); Calcium 9.2 mg/dL (8.7-10.4); Carbon Dioxide 20 mmol/L (20-31); Chloride 111 mmol/L (98-107); Potassium 3.4 mmol/L (3.5-5.1)
[2025-04-30 10:20] LABS: BUN/Creatinine Ratio 14.4 (10.0-20.0); Blood Urea Nitrogen 21 mg/dL (9-23)
--- NOTE | 2025-04-30 10:20 | DVHPN2 ---
Progress Note Date Seen: Apr 30, 2025 Resident Creating Document: MARCELLO BURDEN RESIDENT Medical Necessity Reason Pt with a Central, PICC or Fol: No Subjective Review of Systems Ms. Penalzoa is a 54-year-old female with severe aortic insufficiency, moderate MR, moderate TR, COPD on 4 L home oxygen, CKD 3B, questionable rheumatoid arthritis and Crohn's disease who presented to the EMS with chief complaint of recurrent falls. Patient she has been experiencing recurrent episodes of fall and syncope preceded by dizziness and the legs giving out. She has been having these episodes since 2022. She was intubated for pneumonia and MRSA bacteremia in 2022. She reports that she stood up from bed and upon walking to the bathroom she felt the sudden onset of bilateral lower extremity numbness and subsequent fall injury and she fell, hit her head. Patient is requiring IV pressor support with Levophed of 12. Patient recently had 86/20 which showed 60% EF, severe AI, moderate MR, moderate TR. Nephrology consulted for NYASIA and CKD. Baseline creatinine GFR 1.63/37 Past medical history:severe aortic insufficiency, moderate MR, moderate TR, COPD on 4 L home oxygen, CKD 3B, questionable rheumatoid arthritis and Crohn's disease Past surgical history: EBENEZER: Back surgery: Hysterectomy Home medication: Patient denies taking biological agents or methotrexate. Eliquis 5 mg p.o. b.i.d., amiodarone 200 mg daily, clonidine 0.1 mg b.i.d., furosemide 40 mg p.o. b.i.d., ibuprofen p.r.n., metoprolol 200 mg b.i.d., rosuvastatin, tizanidine Follow up Dr. Contreras. 04/26-Patient seen and examined in the ER. On IV Levophed. 04/27-patient seen and examined. Epogen ordered. Continue NS 75 cc. Blood culture showing Gram-negative rods. 04/28-patient examined, bibasilar crackles. Lower extremity swelling resolving. Urine output 3600 cc in last day. Hemoglobin stable. BUN/creatinine trending down. 04/29-patient seen, reports feeling better. Discontinued IV fluids. Urine output stable 04/30-patient reports no active complaint. Midline inserted. Home antibiotics being arranged by primary. Potassium replenished. Objective vital signs Vital Sign Date Time Temp Pulse Resp B/P (MAP) Pulse Ox O2 Delivery O2 Flow Rate FiO2 04/30/25 09:41 114 127/81 04/30/25 09:02 98.3 20 89 98.3 04/30/25 05:38 Nasal Cannula* 3 32 Total Intake and Output 04/29/25 04/29/25 04/30/25 15:00 23:00 07:00 Intake Total 50 ml 840 ml 0 ml Output Total 1300 ml 1200 ml Balance 50 ml -460 ml -1200 ml medications Current Medications Medications Dose Ordered Sig/Bárbara Route Start Time Stop Time Status Last Admin Dose Admin Acetaminophen 650 mg Q6HP PRN PO 04/25/25 23:30 04/29/25 23:26 650 MG Cefepime HCl 50 ml @ 12.5 mls/hr Q12HR IV 04/26/25 10:00 UNV Albuterol 2.5 mg Q6HWA [facility] 04/26/25 06:00 04/30/25 05:38 2.5 MG Ipratropium [place] 0.5 mg Q6HWA NEB 04/26/25 06:00 04/30/25 05:38 0.5 MG Apixaban 5 mg BID PO 04/26/25 10:00 04/30/25 09:39 5 MG Amiodarone HCl 200 mg Q12HR PO 04/26/25 22:00 04/30/25 09:40 200 MG Mupirocin 1 applic BID EACHNOSTRI 04/26/25 22:00 05/01/25 21:59 04/30/25 09:46 1 APPLIC Promethazine HCl 12.5 mg Q6HP PRN PO 04/26/25 21:45 04/29/25 16:52 12.5 MG Acetaminophen/ Hydrocodone Bitart 1 tab Q6HPRN PRN PO 04/27/25 14:00 04/30/25 06:32 1 TAB Pantoprazole Sodium 40 mg DAILY@0600 PO 04/29/25 06:00 04/30/25 06:31 40 MG Sertraline HCl 200 mg DAILY PO 04/29/25 10:00 04/30/25 09:40 200 MG Ertapenem 1 gm/ Sodium Chloride 50 ml @ 100 mls/hr DAILY IV 04/29/25 10:00 04/30/25 09:39 100 MLS/HR Metoprolol Succinate 50 mg DAILY PO 04/30/25 10:00 04/30/25 09:41 50 MG Examination patient lying in bed, in no acute distress General: Obese, afebrile, palor, mucosae are moist Cardiovascular: Regular S1 and S2. S3 heard. No JVD elevation. Trace pitting edema bilaterally Respiratory: Decreased bilateral air entry on home oxygen Abdomen: Soft, nontender, nondistended, normoactive bowel sounds, no rebound tenderness, no organomegaly, no masses Genitourinary: Deferred MSK/skin: Mobilizes 4 limbs. Skin is dry and warm Neurological: No motor, no sensitive deficits, normal speech. Pupils are isocoric and reactive. Psych/Mental Status: A/Ox3 laboratory and microbiology Laboratory Tests 04/30/25 09:30 Test 04/30/25 09:30 Range/Units Serum Glucose Pending Microbiology Date/Time Source Procedure Growth Status 04/29/25 09:00 Blood Blood Culture - Preliminary NO GROWTH AFTER 24 HOURS OF INCUBATION. Resulted 04/26/25 10:08 Voided Urine Urine Culture - Final Complete 04/26/25 02:00 Nose MRSA Screen - Final Methicillin Resistant S.aureus Complete Labs and/or images reviewed: Labs reviewed by me, Image(s) reviewed by me Problem List/Assessment/Plan Problem List/Assessment/Plan Acute kidney injury in the setting of sepsis superimposed on CKD 3B Septic shock secondary to UTI and pneumonia requiring IV pressor support Syncope in the setting of sepsis and valvular disease Acute cystitis, previous history of Klebsiella UTI Chronic heart failure preserved ejection fraction COPD on home oxygen Chronic respiratory failure Severe aortic insufficiency Moderate MR/moderate TR Anemia, normocytic due to CKD Hypokalemia, hypomagnesemia Undiagnosed thyroid disorder Secondary hyperparathyroidism BNP 146 Prelim blood culture showing Gram-negative rods Urine culture Gram-negative rods Baseline creatinine/GFR 1.63/37 Plan: BUN/creatinine trending down, GFR improving, to baseline. Patient is cleared to be discharged from Nephrology standpoint. Outpatient Nephrology follow up advised. Discontinued IV NS, Patient's NYASIA is likely in the setting of sepsis. Monitor vanco trough, maintained at less than 20 Hemoglobin up trending after Epogen supplementation. Goal hemoglobin greater than 10 Rheumatoid factor WNL, SENTHIL panel WNL, complement WNL Continue IV Invanz, recommend home antibiotics Avoid antihypertensive at this time Avoid NSAIDs/ibuprofen Strict I&Os Cardiology consult appreciated We will continue to follow up Patient is off IV pressors PATIENT HAS 2 MEDICAL RECORDS, [id number] IS THE OTHER MR Plan discussed with patient in which all questions have been answered Case discussed with Dr. Bobo Plan discussed with: Patient, Other (Nurse karl) Dietary Evaluation Review Comments: 1) Connor 1pk & nephro-roma 1 tab daily 2) Refer Varnish Melter for weight management on discharge 3) Monitor lab values, wt trends, skin trends, Expected Outcomes/Goals: Wound to improve Lab values to improve Fu 3-5 days Sepsis reassessment post fluid Is the fluid challenge complet: Yes Date of Reassessment: Apr 25, 2025 Time of Reassessment: 1900 Blood Culture Time: 1535 Time Antibiotics Given: 1545 Systolic BP: 99 Diastolic BP: 47 Blood Pressure Mean: 64 Respiration: 12 Respiratory Effort: Non-Labored, Labored Respiratory Pattern: Regular Oxygen Saturation: 100 Pulse Rate: 64 Pulse Location: Radial Pulse Strength: Normal Pulse Assessment Method: Palpation Pulse Rhythm: Regular Capillary Refill: < 3 seconds Heart Sounds: S1 & S2 Breath sounds: Clear Skin Moisture: Dry Skin Tugor: WNL Skin Color: WNL MARCELLO BURDEN RESIDENT Apr 30, 2025 10:20
[2025-04-30 10:21] LABS: Glucose 120 mg/dL (74-106)
[2025-04-30 11:19] LABS: Anisocytosis Slight; Stomatocytes Few; Total Cells Counted 100.0 (100)
[2025-04-30] MEDS: POTASSIUM CHL 20 Meq TABLET PO ONE (11:39)
--- NOTE | 2025-04-30 14:37 | DVHPN2 ---
Subjective Patient more alert today. Reports having generalized weakness Reviewed: Care Plan, H&P, Labs, Medications, Previous Orders Changes from previous H/P or p: No Changes General: Per HPI Objective Vitals Vital Signs Date Time Temp Pulse Resp B/P (MAP) Pulse Ox O2 Delivery O2 Flow Rate FiO2 04/30/25 11:06 93 Nasal Cannula 3.0 04/30/25 11:06 40 04/30/25 09:41 114 127/81 04/30/25 09:02 98.3 20 98.3 Intake/Output Intake and Output 04/30/25 07:00 Intake Total 890 ml Output Total 2500 ml Balance -1610 ml Intake Oral 840 ml IV Total 50 ml Output Urine Total 2500 ml General Appearance: Alert, Oriented X3, Cooperative, mild distress, Other (Morbid obesity) HEENT: Atraumatic, PERRLA Lungs: Clear to auscultation, Normal air movement Cardiovascular: Normal S1, Normal S2 Abdomen: Normal bowel sounds, Soft, No tenderness, No hepatospenomegaly Neuro: Cranial nerves 3-12 NL Skin: Dry, Intact Psych/Mental Status: Mental status NL, Mood NL Medications Current Medications Medications Dose Ordered Sig/Bárbara Route Start Time Stop Time Status Last Admin Dose Admin Acetaminophen 650 mg Q6HP PRN PO 04/25/25 23:30 04/29/25 23:26 650 MG Cefepime HCl 50 ml @ 12.5 mls/hr Q12HR IV 04/26/25 10:00 UNV Albuterol 2.5 mg Q6HWA NEB 04/26/25 06:00 04/30/25 05:38 2.5 MG Ipratropium [place] 0.5 mg Q6HWA NEB 04/26/25 06:00 04/30/25 05:38 0.5 MG Apixaban 5 mg BID PO 04/26/25 10:00 04/30/25 09:39 5 MG Amiodarone HCl 200 mg Q12HR PO 04/26/25 22:00 04/30/25 09:40 200 MG Mupirocin 1 applic BID EACHNOSTRI 04/26/25 22:00 05/01/25 21:59 04/30/25 09:46 1 APPLIC Promethazine HCl 12.5 mg Q6HP PRN PO 04/26/25 21:45 04/30/25 11:40 12.5 MG Acetaminophen/ Hydrocodone Bitart 1 tab Q6HPRN PRN PO 04/27/25 14:00 04/30/25 06:32 1 TAB Pantoprazole Sodium 40 mg DAILY@0600 PO 04/29/25 06:00 04/30/25 06:31 40 MG Sertraline HCl 200 mg DAILY PO 04/29/25 10:00 04/30/25 09:40 200 MG Ertapenem 1 gm/ Sodium Chloride 50 ml @ 100 mls/hr DAILY IV 04/29/25 10:00 04/30/25 09:39 100 MLS/HR Metoprolol Succinate 50 mg DAILY PO 04/30/25 10:00 04/30/25 09:41 50 MG Laboratory Results Laboratory Tests 04/30/25 09:30 Chemistry Test 04/30/25 09:30 Calcium Level 9.2 mg/dL (8.7-10.4) Magnesium Level 1.8 mg/dL (1.6-2.6) Urinalysis Test 04/25/25 12:59 04/26/25 09:15 Urine Color Yellow (Yellow) Urine Clarity Turbid (Clear) H Urine pH 6.0 (5.0-9.0) Urine Specific [place] 1.008 (1.001-1.035) Urine Protein Trace (Negative) H Urine Ketones Negative (Negative) Urine Blood Trace /uL (Negative) H Urine Nitrite Negative (Negative) Urine Bilirubin Negative (Negative) Urine Urobilinogen Normal mg/dL (Negative) Urine Leukocyte Esterase 3+ /uL (Negative) Urine RBC 1 /hpf (0 - 4) Urine WBC Clumps Present /hpf (None Seen) Urine Microscopic WBC 395 /HPF (0-5) H Urine Squamous Epithelial Cells Few /hpf (<5) Urine Bacteria Many /hpf (None Seen) H Urine Hyaline Casts Few /lpf (0 - 2) Urine Glucose Normal mg/dL (Normal) Urine Creatinine 60.04 mg/dL (30.0-125.0) Urine Protein/Creatinine Ratio 1.09 Urine Sodium 16 mmol/L (40-220) L Urine Total Protein 65.2 mg/dL (1-14) H Microbiology Microbiology Date/Time Source Procedure Growth Status 04/29/25 09:00 Blood Blood Culture - Preliminary NO GROWTH AFTER 24 HOURS OF INCUBATION. Resulted 04/26/25 10:08 Voided Urine Urine Culture - Final Complete 04/26/25 02:00 Nose MRSA Screen - Final Methicillin Resistant S.aureus Complete Labs and/or images reviewed: Labs reviewed by me, Image(s) reviewed by me Assessment/Plan Assessment/Plan Impression: -Septic shock -bacteremia with ESBL -acute kidney injury, vasomotor nephropathy -hypokalemia -complicated cystitis -obesity -acute on chronic hypoxic respiratory failure -COPD -syncope with collapse, probably secondary to hypotension -metabolic encephalopathy, resolved -obstructive sleep apnea Plan: Events: Nausea and vomiting. Patient ambulating. -DC central venous catheter -CPAP at night -KUB -nephrology consultation. Recommendations reviewed -continue IV hydration -ramos cultures: Blood positive for ESBL -O2 supplementation to keep saturation greater than 92% -bronchodilators as needed -physical therapy -social service consultation for home IV antibiotics Total time spent with patient discussing and formulating plan of care: 35 minutes. This medical document was created using an electronic medical record system with [employer] dictation system. Although this document has been carefully reviewed, there may still be some phonetic and typographical errors. These areas are purely typographical due to imperfections of the software programs, and do not reflect any compromise in the patient's medical care. Plan discussed with: Patient, Other (RN) My Orders Orders - SLIM ANAND NP Procedure Category Date Status Time Respiratory Misc. RT 04/30/25 Transmitted Order 14:31 Date of Service: Apr 30, 2025 Billing Provider: SLIM ANAND NP Common Visit Codes: [id number] INP/OBS CARE(HIGH) SLIM ANAND NP Apr 30, 2025 14:37
--- NOTE | 2025-04-30 18:02 | DVH ---
Procedure: XY KUB ABDOMEN SINGLE VIEW Study Date and Requested Time: 04/30/2025 02:50 PM History: N/V Technique: 2 views of the abdomen and pelvis available for evaluation Comparison: None Findings/ Impression: Nonspecific bowel gas pattern. No evidence of bowel obstruction or ileus. Gas-filled nondistended la rge bowel loops are noted. Gas is noted within the stomach. No abnormal calcifications are noted. No evidence of acute osseous abnormalities. Phleboliths are not ed within the pelvis.
[2025-05-01] VITALS (17 sets, daily range): BP systolic 129–153; BP diastolic 65–83; PULSE 72–106; RESP 16–20; TEMP 97.7–98.4; O2SAT 94–100
[2025-05-01 06:41] LABS: Hematocrit 25.1 % (36.0-46.0); Hemoglobin 8.1 g/dL (12.2-16.2); Mean Corpuscular Hemoglobin 27.1 pg (28.0-32.0); Mean Corpuscular Volume 84.2 fL (80.0-100.0); Nucleated Red Blood Cells % 0.3 %
[2025-05-01 06:49] LABS: Potassium 3.6 mmol/L (3.5-5.1); Sodium 142 mmol/L (136-145)
[2025-05-01 06:50] LABS: Anion Gap 10 (5-15); Calcium 9.3 mg/dL (8.7-10.4)
[2025-05-01 06:55] LABS: BUN/Creatinine Ratio 13.9 (10.0-20.0); Blood Urea Nitrogen 19 mg/dL (9-23)
[2025-05-01 06:56] LABS: Carbon Dioxide 20 mmol/L (20-31); Chloride 112 mmol/L (98-107); Glucose 117 mg/dL (74-106)
--- NOTE | 2025-05-01 17:07 | DVHPN2 ---
Progress Note Date Seen: May 01, 2025 Medical Necessity Reason Pt with a Central, PICC or Fol: No Subjective Review of Systems States she feels tired, however better today. Patient reports: No new complaints, Feels better Objective vital signs Vital Sign Date Time Temp Pulse Resp B/P (MAP) Pulse Ox O2 Delivery O2 Flow Rate FiO2 05/01/25 13:00 98.1 103 19 148/75 (99) 95 98.1 05/01/25 11:49 Nasal Cannula 4.0 05/01/25 11:49 36 Total Intake and Output 04/30/25 04/30/25 05/01/25 15:00 23:00 07:00 Intake Total 2100 ml 1200 ml Output Total 550 ml 900 ml Balance 1550 ml 300 ml medications Current Medications Medications Dose Ordered Sig/Bárbara Route Start Time Stop Time Status Last Admin Dose Admin Acetaminophen 650 mg Q6HP PRN PO 04/25/25 23:30 04/29/25 23:26 650 MG Cefepime HCl 50 ml @ 12.5 mls/hr Q12HR IV 04/26/25 10:00 UNV Albuterol 2.5 mg Q6HWA NEB 04/26/25 06:00 05/01/25 11:49 2.5 MG Ipratropium [place] 0.5 mg Q6HWA NEB 04/26/25 06:00 05/01/25 11:49 0.5 MG Apixaban 5 mg BID PO 04/26/25 10:00 05/01/25 08:47 5 MG Amiodarone HCl 200 mg Q12HR PO 04/26/25 22:00 05/01/25 08:47 200 MG Mupirocin 1 applic BID EACHNOSTRI 04/26/25 22:00 05/01/25 21:59 05/01/25 09:00 1 APPLIC Promethazine HCl 12.5 mg Q6HP PRN PO 04/26/25 21:45 04/30/25 19:44 12.5 MG Acetaminophen/ Hydrocodone Bitart 1 tab Q6HPRN PRN PO 04/27/25 14:00 05/01/25 04:59 1 TAB Pantoprazole Sodium 40 mg DAILY@0600 PO 04/29/25 06:00 05/01/25 04:58 40 MG Sertraline HCl 200 mg DAILY PO 04/29/25 10:00 05/01/25 08:47 200 MG Ertapenem 1 gm/ Sodium Chloride 50 ml @ 100 mls/hr DAILY IV 04/29/25 10:00 05/01/25 08:45 100 MLS/HR Metoprolol Succinate 50 mg DAILY PO 04/30/25 10:00 05/01/25 08:48 50 MG Examination Gen: NAD, appears stated age Lungs: CTA, bilateral air entry Heart: RRR, normal S1 and S2 Ext: + edema Neuro: A&O x4 laboratory and microbiology Laboratory Tests 05/01/25 06:04 Test 05/01/25 06:04 Range/Units Serum Glucose 117 H 74-106 mg/dL Microbiology Date/Time Source Procedure Growth Status 04/29/25 09:00 Blood Blood Culture - Preliminary NO GROWTH AFTER 48 HOURS OF INCUBATION. Resulted 04/26/25 10:08 Voided Urine Urine Culture - Final Complete 04/26/25 02:00 Nose MRSA Screen - Final Methicillin Resistant S.aureus Complete Labs and/or images reviewed: Labs reviewed by me Problem List/Assessment/Plan Problem List/Assessment/Plan IMP 1. NYASIA on CKD- hemodynamically mediated- improving downtrending serum creat, GFR 46 2. Septic shock 3. Complicated cystitis- IV abx 4. Anemia of chronic disease- on epogen 5. Bacteremia- IV abx 6. Hx of CHF REC - Serial chemistry panels - Strict I&Os - Blood pressure control - Avoidance of NSAIDs, RAAS inhibition during time course of NYASIA - Will continue to follow Plan discussed with: Patient Dietary Evaluation Review Comments: 1) Connor 1pk & nephro-roma 1 tab daily 2) Refer Product Assurance Engineer for weight management on discharge 3) Monitor lab values, wt trends, skin trends, Expected Outcomes/Goals: Wound to improve Lab values to improve Fu 3-5 days Sepsis reassessment post fluid Is the fluid challenge complet: Yes Date of Reassessment: Apr 25, 2025 Time of Reassessment: 1899 Blood Culture Time: 1534 Time Antibiotics Given: 1545 Systolic BP: 99 Diastolic BP: 47 Blood Pressure Mean: 64 Respiration: 12 Respiratory Effort: Non-Labored, Labored Respiratory Pattern: Regular Oxygen Saturation: 100 Pulse Rate: 64 Pulse Location: Radial Pulse Strength: Normal Pulse Assessment Method: Palpation Pulse Rhythm: Regular Capillary Refill: < 3 seconds Heart Sounds: S1 & S2 Breath sounds: Clear Skin Moisture: Dry Skin Tugor: WNL Skin Color: WNL DUNCAN MADERAP May 01, 2025 17:07
--- NOTE | 2025-05-01 18:52 | DVHPN2 ---
Subjective I am assuming the care of the patient from today onwards. Patient has stated that she does not feel good. Complaining of headache. Reviewed: Care Plan, H&P, Labs, Medications, Previous Orders Changes from previous H/P or p: No Changes General: Per HPI Objective Vitals Vital Signs Date Time Temp Pulse Resp B/P (MAP) Pulse Ox O2 Delivery O2 Flow Rate FiO2 05/01/25 17:00 98.3 106 18 151/83 (105) 96 98.3 05/01/25 11:49 Nasal Cannula 4.0 05/01/25 11:49 36 Intake/Output Intake and Output 05/01/25 07:00 Intake Total 3300 ml Output Total 1450 ml Balance 1850 ml Intake Oral 3300 ml Tube Feeding 0 ml Output Urine Total 1450 ml # Bowel Movements 2 Exam HEENT pupils are reactive Neck is supple CV is S1-S2 regular rate and rhythm Respiratory diminished breath sounds at bases GI positive bowel sound Extremity no pedal edema [employer] no motor deficit General Appearance: Alert, Oriented X3, Cooperative, mild distress, Other (Morbid obesity) HEENT: Atraumatic, PERRLA Lungs: Clear to auscultation, Normal air movement Cardiovascular: Normal S1, Normal S2 Abdomen: Normal bowel sounds, Soft, No tenderness, No hepatospenomegaly Neuro: Cranial nerves 3-12 NL Skin: Dry, Intact Psych/Mental Status: Mental status NL, Mood NL Medications Current Medications Medications Dose Ordered Sig/Bárbara Route Start Time Stop Time Status Last Admin Dose Admin Acetaminophen 650 mg Q6HP PRN PO 04/25/25 23:30 04/29/25 23:26 650 MG Cefepime HCl 50 ml @ 12.5 mls/hr Q12HR IV 04/26/25 10:00 UNV Albuterol 2.5 mg Q6HWA NEB 04/26/25 06:00 05/01/25 11:49 2.5 MG Ipratropium [place] 0.5 mg Q6HWA NEB 04/26/25 06:00 05/01/25 11:49 0.5 MG Apixaban 5 mg BID PO 04/26/25 10:00 05/01/25 08:47 5 MG Amiodarone HCl 200 mg Q12HR PO 04/26/25 22:00 05/01/25 08:47 200 MG Mupirocin 1 applic BID EACHNOSTRI 04/26/25 22:00 05/01/25 21:59 05/01/25 09:00 1 APPLIC Promethazine HCl 12.5 mg Q6HP PRN PO 04/26/25 21:45 04/30/25 19:44 12.5 MG Acetaminophen/ Hydrocodone Bitart 1 tab Q6HPRN PRN PO 04/27/25 14:00 05/01/25 17:23 1 TAB Pantoprazole Sodium 40 mg DAILY@0600 PO 04/29/25 06:00 05/01/25 04:58 40 MG Sertraline HCl 200 mg DAILY PO 04/29/25 10:00 05/01/25 08:47 200 MG Ertapenem 1 gm/ Sodium Chloride 50 ml @ 100 mls/hr DAILY IV 04/29/25 10:00 05/01/25 08:45 100 MLS/HR Metoprolol Succinate 50 mg DAILY PO 04/30/25 10:00 05/01/25 08:48 50 MG Laboratory Results Laboratory Tests 05/01/25 06:04 Chemistry Test 05/01/25 06:04 Calcium Level 9.3 mg/dL (8.7-10.4) Urinalysis Test 04/25/25 12:59 04/26/25 09:15 Urine Color Yellow (Yellow) Urine Clarity Turbid (Clear) H Urine pH 6.0 (5.0-9.0) Urine Specific [place] 1.008 (1.001-1.035) Urine Protein Trace (Negative) H Urine Ketones Negative (Negative) Urine Blood Trace /uL (Negative) H Urine Nitrite Negative (Negative) Urine Bilirubin Negative (Negative) Urine Urobilinogen Normal mg/dL (Negative) Urine Leukocyte Esterase 3+ /uL (Negative) Urine RBC 1 /hpf (0 - 4) Urine WBC Clumps Present /hpf (None Seen) Urine Microscopic WBC 395 /HPF (0-5) H Urine Squamous Epithelial Cells Few /hpf (<5) Urine Bacteria Many /hpf (None Seen) H Urine Hyaline Casts Few /lpf (0 - 2) Urine Glucose Normal mg/dL (Normal) Urine Creatinine 60.04 mg/dL (30.0-125.0) Urine Protein/Creatinine Ratio 1.09 Urine Sodium 16 mmol/L (40-220) L Urine Total Protein 65.2 mg/dL (1-14) H Microbiology Microbiology Date/Time Source Procedure Growth Status 04/29/25 09:00 Blood Blood Culture - Preliminary NO GROWTH AFTER 48 HOURS OF INCUBATION. Resulted 04/26/25 10:08 Voided Urine Urine Culture - Final Complete 04/26/25 02:00 Nose MRSA Screen - Final Methicillin Resistant S.aureus Complete Assessment/Plan Assessment/Plan 54-year-old female with a known history of COPD, chronic respiratory failure on home O2, sleep apnea, initially presented to the hospital with a recurrent fall found to have 1. Septic shock secondary to pneumonia and UTI 2. ESBL bacteremia repeat blood cultures are negative 3. 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 Complicated cystitis 5. Morbid obesity classII 6. Chronic respiratory failure 7. COPD -continue IV Invanz, [employer] social studies teacher consultation for IV antibiotics arrangement Plan discussed with: Patient, Spouse Date of Service: May 01, 2025 Billing Provider: GEORGIANA NOEL MD Common Visit Codes: [id number] INP/OBS CARE(MOD) GEORGIANA NOEL MD May 01, 2025 18:52
[2025-05-02] VITALS (13 sets, daily range): BP systolic 117–156; BP diastolic 64–85; PULSE 92–130; RESP 16–19; TEMP 97.4–98.2; O2SAT 95–100
[2025-05-02 06:10] LABS: Anion Gap 10 (5-15); Carbon Dioxide 21 mmol/L (20-31); Potassium 3.7 mmol/L (3.5-5.1); Sodium 140 mmol/L (136-145)
[2025-05-02 06:11] LABS: Calcium 9.8 mg/dL (8.7-10.4); Chloride 109 mmol/L (98-107)
[2025-05-02 06:16] LABS: BUN/Creatinine Ratio 15.0 (10.0-20.0); Blood Urea Nitrogen 19 mg/dL (9-23); Glucose 99 mg/dL (74-106)
--- NOTE | 2025-05-02 16:50 | DVHPN2 ---
Subjective Patient is complaining of headache and does not feel good. She requesting to go home once antibiotics are arranged. director of creative services on board. Reviewed: Care Plan, H&P, Labs, Medications, Previous Orders Changes from previous H/P or p: No Changes General: Per HPI Objective Vitals Vital Signs Date Time Temp Pulse Resp B/P (MAP) Pulse Ox O2 Delivery O2 Flow Rate FiO2 05/02/25 16:46 98.2 97 16 130/74 (92) 98 98.2 05/02/25 12:08 Nasal Cannula 4.0 05/02/25 12:08 36 Intake/Output Intake and Output 05/02/25 07:00 Intake Total 1000 ml Output Total 1600 ml Balance -600 ml Intake Oral 1000 ml Output Urine Total 1600 ml Exam HEENT pupils are reactive Neck is supple CV is S1-S2 regular rate and rhythm Respiratory diminished breath sounds at bases GI positive bowel sound Extremity no pedal edema STRONG NITRIC OPERATOR no motor deficit General Appearance: Alert, Oriented X3, Cooperative, mild distress, Other (Morbid obesity) HEENT: Atraumatic, PERRLA Lungs: Clear to auscultation, Normal air movement Cardiovascular: Normal S1, Normal S2 Abdomen: Normal bowel sounds, Soft, No tenderness, No hepatospenomegaly Neuro: Cranial nerves 3-12 NL Skin: Dry, Intact Psych/Mental Status: Mental status NL, Mood NL Medications Current Medications Medications Dose Ordered Sig/Bárbara Route Start Time Stop Time Status Last Admin Dose Admin Acetaminophen 650 mg Q6HP PRN PO 04/25/25 23:30 04/29/25 23:26 650 MG Cefepime HCl 50 ml @ 12.5 mls/hr Q12HR IV 04/26/25 10:00 UNV Albuterol 2.5 mg Q6HWA [facility] 04/26/25 06:00 05/02/25 12:08 2.5 MG Ipratropium [place] 0.5 mg Q6HWA [facility] 04/26/25 06:00 05/02/25 12:08 0.5 MG Apixaban 5 mg BID PO 04/26/25 10:00 05/02/25 10:00 5 MG Amiodarone HCl 200 mg Q12HR PO 04/26/25 22:00 05/02/25 09:59 200 MG Promethazine HCl 12.5 mg Q6HP PRN PO 04/26/25 21:45 05/02/25 12:25 12.5 MG Acetaminophen/ Hydrocodone Bitart 1 tab Q6HPRN PRN PO 04/27/25 14:00 05/02/25 10:01 1 TAB Pantoprazole Sodium 40 mg DAILY@0600 PO 04/29/25 06:00 05/02/25 05:49 40 MG Sertraline HCl 200 mg DAILY PO 04/29/25 10:00 05/02/25 10:00 200 MG Ertapenem 1 gm/ Sodium Chloride 50 ml @ 100 mls/hr DAILY IV 04/29/25 10:00 05/02/25 10:01 100 MLS/HR Metoprolol Succinate 50 mg DAILY PO 04/30/25 10:00 05/02/25 10:00 50 MG Laboratory Results Laboratory Tests 05/01/25 06:04 05/02/25 04:49 Chemistry Test 05/02/25 04:49 Calcium Level 9.8 mg/dL (8.7-10.4) Urinalysis Test 04/25/25 12:59 04/26/25 09:15 Urine Color Yellow (Yellow) Urine Clarity Turbid (Clear) H Urine pH 6.0 (5.0-9.0) Urine Specific [place] 1.008 (1.001-1.035) Urine Protein Trace (Negative) H Urine Ketones Negative (Negative) Urine Blood Trace /uL (Negative) H Urine Nitrite Negative (Negative) Urine Bilirubin Negative (Negative) Urine Urobilinogen Normal mg/dL (Negative) Urine Leukocyte Esterase 3+ /uL (Negative) Urine RBC 1 /hpf (0 - 4) Urine WBC Clumps Present /hpf (None Seen) Urine Microscopic WBC 395 /HPF (0-5) H Urine Squamous Epithelial Cells Few /hpf (<5) Urine Bacteria Many /hpf (None Seen) H Urine Hyaline Casts Few /lpf (0 - 2) Urine Glucose Normal mg/dL (Normal) Urine Creatinine 60.04 mg/dL (30.0-125.0) Urine Protein/Creatinine Ratio 1.09 Urine Sodium 16 mmol/L (40-220) L Urine Total Protein 65.2 mg/dL (1-14) H Microbiology Microbiology Date/Time Source Procedure Growth Status 04/29/25 09:00 Blood Blood Culture - Preliminary NO GROWTH AFTER 72 HOURS OF INCUBATION. Resulted 04/26/25 10:08 Voided Urine Urine Culture - Final Complete 04/26/25 02:00 Nose MRSA Screen - Final Methicillin Resistant S.aureus Complete Assessment/Plan Assessment/Plan 54-year-old female with a known history of COPD, chronic respiratory failure on home O2, sleep apnea, initially presented to the hospital with a recurrent fall found to have 1. Septic shock secondary to pneumonia and UTI 2. ESBL bacteremia repeat blood cultures are negative 3. 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 Complicated cystitis 5. Morbid obesity classII 6. Chronic respiratory failure 7. COPD -continue IV Invanz, social worker palliative care consultation for IV antibiotics arrangement Plan discussed with: Patient Date of Service: May 02, 2025 Billing Provider: GEORGIANA NOEL MD Common Visit Codes: [id number] INP/OBS CARE(MOD) GEORGIANA NOEL MD May 02, 2025 16:50
--- NOTE | 2025-05-02 17:10 | DVHPN2 ---
Progress Note Medical Necessity Reason Pt with a Central, PICC or Fol: No Objective vital signs Vital Sign Date Time Temp Pulse Resp B/P (MAP) Pulse Ox O2 Delivery O2 Flow Rate FiO2 05/02/25 16:46 98.2 97 16 130/74 (92) 98 98.2 05/02/25 12:08 Nasal Cannula 4.0 05/02/25 12:08 36 Total Intake and Output 05/01/25 05/01/25 05/02/25 15:00 23:00 07:00 Intake Total 200 ml 800 ml Output Total 500 ml 1100 ml Balance -300 ml -300 ml medications Current Medications Medications Dose Ordered Sig/Bárbara Route Start Time Stop Time Status Last Admin Dose Admin Acetaminophen 650 mg Q6HP PRN PO 04/25/25 23:30 04/29/25 23:26 650 MG Cefepime HCl 50 ml @ 12.5 mls/hr Q12HR IV 04/26/25 10:00 UNV Albuterol 2.5 mg Q6HWA [facility] 04/26/25 06:00 05/02/25 12:08 2.5 MG Ipratropium [place] 0.5 mg Q6HWA [facility] 04/26/25 06:00 05/02/25 12:08 0.5 MG Apixaban 5 mg BID PO 04/26/25 10:00 05/02/25 10:00 5 MG Amiodarone HCl 200 mg Q12HR PO 04/26/25 22:00 05/02/25 09:59 200 MG Promethazine HCl 12.5 mg Q6HP PRN PO 04/26/25 21:45 05/02/25 12:25 12.5 MG Acetaminophen/ Hydrocodone Bitart 1 tab Q6HPRN PRN PO 04/27/25 14:00 05/02/25 10:01 1 TAB Pantoprazole Sodium 40 mg DAILY@0600 PO 04/29/25 06:00 05/02/25 05:49 40 MG Sertraline HCl 200 mg DAILY PO 04/29/25 10:00 05/02/25 10:00 200 MG Ertapenem 1 gm/ Sodium Chloride 50 ml @ 100 mls/hr DAILY IV 04/29/25 10:00 05/02/25 10:01 100 MLS/HR Metoprolol Succinate 50 mg DAILY PO 04/30/25 10:00 05/02/25 10:00 50 MG laboratory and microbiology Laboratory Tests 05/02/25 04:49 05/01/25 06:04 Test 05/02/25 04:49 Range/Units Serum Glucose 99 74-106 mg/dL Microbiology Date/Time Source Procedure Growth Status 04/29/25 09:00 Blood Blood Culture - Preliminary NO GROWTH AFTER 72 HOURS OF INCUBATION. Resulted 04/26/25 10:08 Voided Urine Urine Culture - Final Complete 04/26/25 02:00 Nose MRSA Screen - Final Methicillin Resistant S.aureus Complete Problem List/Assessment/Plan Problem List/Assessment/Plan IMP 1. NYASIA on CKD- hemodynamically mediated- improving downtrending serum creat, GFR 46 2. Septic shock 3. Complicated cystitis- IV abx 4. Anemia of chronic disease- on epogen 5. Bacteremia- IV abx 6. Hx of CHF REC - Serial chemistry panels - Strict I&Os - Blood pressure control - Avoidance of NSAIDs, RAAS inhibition during time course of NYASIA - Will continue to follow Dietary Evaluation Review Comments: 1) Connor 1pk & nephro-roma 1 tab daily 2) Refer Angledozer Operator for weight management on discharge 3) Monitor lab values, wt trends, skin trends, Expected Outcomes/Goals: Wound to improve Lab values to improve Fu 3-5 days Sepsis reassessment post fluid Is the fluid challenge complet: Yes Date of Reassessment: Apr 25, 2025 Time of Reassessment: 1900 Blood Culture Time: 1535 Time Antibiotics Given: 1545 Systolic BP: 99 Diastolic BP: 47 Blood Pressure Mean: 64 Respiration: 12 Respiratory Effort: Non-Labored, Labored Respiratory Pattern: Regular Oxygen Saturation: 100 Pulse Rate: 64 Pulse Location: Radial Pulse Strength: Normal Pulse Assessment Method: Palpation Pulse Rhythm: Regular Capillary Refill: < 3 seconds Heart Sounds: S1 & S2 Breath sounds: Clear Skin Moisture: Dry Skin Tugor: ELAINA Skin Color: WNL DUNCAN MADERA May 02, 2025 17:10
--- NOTE | 2025-05-02 18:36 | DVHPN2 ---
Progress Note Date Seen: May 02, 2025 Medical Necessity Reason Pt with a Central, PICC or Fol: No Subjective Review of Systems Patient states she feels slightly better today. Patient reports: No new complaints, Feels better Objective vital signs Vital Sign Date Time Temp Pulse Resp B/P (MAP) Pulse Ox O2 Delivery O2 Flow Rate FiO2 05/02/25 16:46 98.2 97 16 130/74 (92) 98 98.2 05/02/25 12:08 Nasal Cannula 4.0 05/02/25 12:08 36 Total Intake and Output 05/01/25 05/01/25 05/02/25 15:00 23:00 07:00 Intake Total 200 ml 800 ml Output Total 500 ml 1100 ml Balance -300 ml -300 ml medications Current Medications Medications Dose Ordered Sig/Bárbara Route Start Time Stop Time Status Last Admin Dose Admin Acetaminophen 650 mg Q6HP PRN PO 04/25/25 23:30 04/29/25 23:26 650 MG Cefepime HCl 50 ml @ 12.5 mls/hr Q12HR IV 04/26/25 10:00 UNV Albuterol 2.5 mg Q6HWA NEB 04/26/25 06:00 05/02/25 12:08 2.5 MG Ipratropium [place] 0.5 mg Q6HWA NEB 04/26/25 06:00 05/02/25 12:08 0.5 MG Apixaban 5 mg BID PO 04/26/25 10:00 05/02/25 10:00 5 MG Amiodarone HCl 200 mg Q12HR PO 04/26/25 22:00 05/02/25 09:59 200 MG Promethazine HCl 12.5 mg Q6HP PRN PO 04/26/25 21:45 05/02/25 12:25 12.5 MG Acetaminophen/ Hydrocodone Bitart 1 tab Q6HPRN PRN PO 04/27/25 14:00 05/02/25 10:01 1 TAB Pantoprazole Sodium 40 mg DAILY@0600 PO 04/29/25 06:00 05/02/25 05:49 40 MG Sertraline HCl 200 mg DAILY PO 04/29/25 10:00 05/02/25 10:00 200 MG Ertapenem 1 gm/ Sodium Chloride 50 ml @ 100 mls/hr DAILY IV 04/29/25 10:00 05/02/25 10:01 100 MLS/HR Metoprolol Succinate 50 mg DAILY PO 04/30/25 10:00 05/02/25 10:00 50 MG Examination Gen: NAD, appears stated age Lungs: CTA, bilateral air entry Heart: RRR, normal S1 and S2 Ext: + edema Neuro: A&O x4 laboratory and microbiology Laboratory Tests 05/02/25 04:49 05/01/25 06:04 Test 05/02/25 04:49 Range/Units Serum Glucose 99 74-106 mg/dL Microbiology Date/Time Source Procedure Growth Status 04/29/25 09:00 Blood Blood Culture - Preliminary NO GROWTH AFTER 72 HOURS OF INCUBATION. Resulted 04/26/25 10:08 Voided Urine Urine Culture - Final Complete 04/26/25 02:00 Nose MRSA Screen - Final Methicillin Resistant S.aureus Complete Labs and/or images reviewed: Labs reviewed by me Problem List/Assessment/Plan Problem List/Assessment/Plan IMP 1. NYASIA on CKD- hemodynamically mediated- improving downtrending serum creat, eGFR 50 2. Septic shock 3. Complicated cystitis- IV abx 4. Anemia of chronic disease- on epogen 5. Bacteremia- IV abx 6. Hx of CHF REC - continue serial chemistry panels - Strict I&Os - Blood pressure control - Avoidance of NSAIDs, RAAS inhibition during time course of NYASIA -avoidance of contrast studies if able - Will continue to follow Plan discussed with: Patient Dietary Evaluation Review Comments: 1) Connor 1pk & nephro-roma 1 tab daily 2) Refer Burn Crew Member for weight management on discharge 3) Monitor lab values, wt trends, skin trends, Expected Outcomes/Goals: Wound to improve Lab values to improve Fu 3-5 days Sepsis reassessment post fluid Is the fluid challenge complet: Yes Date of Reassessment: Apr 25, 2025 Time of Reassessment: 1900 Blood Culture Time: 153 Time Antibiotics Given: 1545 Systolic BP: 99 Diastolic BP: 47 Blood Pressure Mean: 64 Respiration: 12 Respiratory Effort: Non-Labored, Labored Respiratory Pattern: Regular Oxygen Saturation: 100 Pulse Rate: 64 Pulse Location: Radial Pulse Strength: Normal Pulse Assessment Method: Palpation Pulse Rhythm: Regular Capillary Refill: < 3 seconds Heart Sounds: S1 & S2 Breath sounds: Clear Skin Moisture: Dry Skin Tugor: WNL Skin Color: WNL MADERADUNCAN SIMON [facility] May 02, 2025 18:36
[2025-05-03] VITALS (11 sets, daily range): BP systolic 139–148; BP diastolic 70–92; PULSE 91–103; RESP 14–20; TEMP 36.8; O2SAT 94–100
--- NOTE | 2025-05-03 15:40 | DVHPN2 ---
Progress Note Date Seen: May 03, 2025 Medical Necessity Reason Pt with a Central, PICC or Fol: No Subjective Patient reports: No new complaints Review of Systems: Deferred Objective vital signs Vital Sign Date Time Temp Pulse Resp B/P (MAP) Pulse Ox O2 Delivery O2 Flow Rate FiO2 05/03/25 13:17 98.2 97 20 146/91 (109) 97 98.2 05/03/25 08:00 Nasal Cannula* 4 36 Total Intake and Output 05/02/25 05/02/25 05/03/25 15:00 23:00 07:00 Intake Total 50 ml 960 ml 500 ml Output Total 500 ml 650 ml Balance 50 ml 460 ml -150 ml medications Current Medications Medications Dose Ordered Sig/Bárbara Route Start Time Stop Time Status Last Admin Dose Admin Acetaminophen 650 mg Q6HP PRN PO 04/25/25 23:30 05/02/25 22:07 650 MG Cefepime HCl 50 ml @ 12.5 mls/hr Q12HR IV 04/26/25 10:00 UNV Albuterol 2.5 mg Q6HWA NEB 04/26/25 06:00 05/03/25 11:28 2.5 MG Ipratropium [place] 0.5 mg Q6HWA NEB 04/26/25 06:00 05/03/25 11:28 0.5 MG Apixaban 5 mg BID PO 04/26/25 10:00 05/03/25 10:26 5 MG Amiodarone HCl 200 mg Q12HR PO 04/26/25 22:00 05/03/25 10:25 200 MG Promethazine HCl 12.5 mg Q6HP PRN PO 04/26/25 21:45 05/03/25 05:59 12.5 MG Acetaminophen/ Hydrocodone Bitart 1 tab Q6HPRN PRN PO 04/27/25 14:00 05/02/25 20:00 1 TAB Pantoprazole Sodium 40 mg DAILY@0600 PO 04/29/25 06:00 05/03/25 05:47 40 MG Sertraline HCl 200 mg DAILY PO 04/29/25 10:00 05/03/25 10:25 200 MG Ertapenem 1 gm/ Sodium Chloride 50 ml @ 100 mls/hr DAILY IV 04/29/25 10:00 05/03/25 10:25 100 MLS/HR Metoprolol Succinate 50 mg DAILY PO 04/30/25 10:00 05/03/25 10:26 50 MG Examination: GENERAL:Normal, HEENT:Normal, NECK:Normal, LUNGS:Normal, CVS:Normal, ABDOMEN:Normal, MSK:Normal, SKIN:Normal, NEURO:Normal, :Normal laboratory and microbiology Laboratory Tests 05/02/25 04:49 05/01/25 06:04 Test 05/02/25 04:49 Range/Units Serum Glucose 99 74-106 mg/dL Microbiology Date/Time Source Procedure Growth Status 04/29/25 09:00 Blood Blood Culture - Preliminary NO GROWTH AFTER 72 HOURS OF INCUBATION. Resulted 04/26/25 10:08 Voided Urine Urine Culture - Final Complete 04/26/25 02:00 Nose MRSA Screen - Final Methicillin Resistant S.aureus Complete Problem List/Assessment/Plan Problem List/Assessment/Plan 1. NYASIA on CKD- hemodynamically mediated- improving downtrending serum creat, eGFR 50 2. Septic shock 3. Complicated cystitis- IV abx 4. Anemia of chronic disease- on epogen 5. Bacteremia- IV abx 6. Hx of CHF Recommendations Renal function stable Follow-up with after discharge Plan discussed with: Patient Dietary Evaluation Review Comments: 1) Connor 1pk & nephro-roma 1 tab daily 2) Refer [place] Layer for weight management on discharge 3) Monitor lab values, wt trends, skin trends, Expected Outcomes/Goals: Wound to improve Lab values to improve Fu 3-5 days Sepsis reassessment post fluid Is the fluid challenge complet: Yes Date of Reassessment: Apr 25, 2025 Time of Reassessment: 190 Blood Culture Time: 153 Time Antibiotics Given: 1545 Systolic BP: 99 Diastolic BP: 47 Blood Pressure Mean: 64 Respiration: 12 Respiratory Effort: Non-Labored, Labored Respiratory Pattern: Regular Oxygen Saturation: 100 Pulse Rate: 64 Pulse Location: Radial Pulse Strength: Normal Pulse Assessment Method: Palpation Pulse Rhythm: Regular Capillary Refill: < 3 seconds Heart Sounds: S1 & S2 Breath sounds: Clear Skin Moisture: Dry Skin Tugor: WNL Skin Color: WNL ANGELICA NASH MD May 03, 2025 15:40
--- NOTE | 2025-05-03 15:59 | DVHDS2 ---
Discharge Summary Date of Admission Apr 25, 2025 at 23:16 Date of Discharge: May 03, 2025 Labs/Diagnostic Data: Laboratory Results Test 05/02/25 04:49 05/01/25 06:04 04/30/25 09:30 04/28/25 03:30 Sodium Level 140 mmol/L (136-145) Potassium Level 3.7 mmol/L (3.5-5.1) Chloride Level 109 mmol/L (98-107) Carbon Dioxide Level 21 mmol/L (20-31) Anion Gap 10 (5-15) Blood Urea Nitrogen 19 mg/dL (9-23) Creatinine 1.27 mg/dL (0.550-1.02) Glomerular Filtration Rate Calc 50 mL/min (>90) BUN/Creatinine Ratio 15.0 (10.0-20.0) Serum Glucose 99 mg/dL (74-106) Calcium Level 9.8 mg/dL (8.7-10.4) White Blood Count 12.7 10^3/uL (4.4-10.8) Red Blood Count 2.99 10^6/uL (4.0-5.20) Hemoglobin 8.1 g/dL (12.2-16.2) Hematocrit 25.1 % (36.0-46.0) Mean Corpuscular Volume 84.2 fL (80.0-100.0) Mean Corpuscular Hemoglobin 27.1 pg (28.0-32.0) Mean Corpuscular Hemoglobin Concent 32.2 g/dL (32.0-36.0) Red Cell Distribution Width 17.7 % (11.8-14.3) Platelet Count 234 10^3/uL (140-450) Mean Platelet Volume 8.2 fL (6.9-10.8) Neutrophils (%) (Auto) 70.4 % (37.0-80.0) Lymphocytes (%) (Auto) 21.2 % (10.0-50.0) Monocytes (%) (Auto) 5.7 % (0.0-12.0) Eosinophils (%) (Auto) 2.1 % (0.0-7.0) Basophils (%) (Auto) 0.6 % (0.0-2.0) Neutrophils # (Auto) 8.9 10 ^3/uL (1.6-8.6) Lymphocytes # (Auto) 2.7 10 ^3/uL (0.4-5.4) Monocytes # (Auto) 0.7 10 ^3/uL (0-1.3) Eosinophils # (Auto) 0.3 10 ^3/uL (0-0.8) Basophils # (Auto) 0.1 10 ^3/uL (0-0.2) Nucleated Red Blood Cells 0.3 % Differential Total Cells Counted 100.0 (100) Neutrophils % (Manual) 74 (37.0-80.0) Band Neutrophils % (Manual) 2 Lymphocytes % (Manual) 19 (10.0-50.0) Monocytes % (Manual) 3 (0-12) Eosinophils % (Manual) 0 (0-7) Basophils % (Manual) 0 (0.0-2.0) Metamyelocytes % (manual) 1 Myelocytes % (Manual) 1 Promyelocytes % (Manual) 0 Blast Cells % (Manual) 0 Reactive Lymphocytes 0 Platelet Estimate Adequate Anisocytosis (manual) Slight Stomatocytes Few Magnesium Level 1.8 mg/dL (1.6-2.6) Stool Occult Blood Neg x1 (Negative) Stool Occult Blood Sample #3 (Negative) Test 04/27/25 13:35 04/27/25 03:10 04/26/25 16:08 04/26/25 09:15 Rheumatoid Factor 10.5 IU/mL (<14.0) Anti-Nuclear Antibody Screen Negative (Negative) Anti-Nuclear Antibody Comment Comment (.) LARRY-1 Antibody <0.2 AI (0.0-0.9) SS-A/Ro Antibody <0.2 AI (0.0-0.9) SS-B/La Antibody <0.2 AI (0.0-0.9) Sm Antibody <0.2 AI (0.0-0.9) BOAT TENDER Antibody <0.2 AI (0.0-0.9) Scl-70 (Scleroderma) Antibody <0.2 AI (0.0-0.9) Anti-Double Strand DNA Antibody <1 IU/mL (0-9) Chromatin Antibody <0.2 AI (0.0-0.9) Centromere B Antibody <0.2 AI (0.0-0.9) Complement C3 130 mg/dL (82-167) Complement C4 37 mg/dL (12-38) Erythrocyte Sedimentation Rate 48 mm/hr (0-20) Serum Osmolality 298 mOsm/kg (278-298) Urine Creatinine 60.04 mg/dL (30.0-125.0) Urine Protein/Creatinine Ratio 1.09 Urine Sodium 16 mmol/L (40-220) Urine Total Protein 65.2 mg/dL (1-14) Urine Opiates Screen Pos (NEGATIVE) Urine Fentanyl Screen Neg (NEGATIVE) Urine Barbiturates Screen Neg (NEGATIVE) Urine Phencyclidine Screen Neg (NEGATIVE) Urine Amphetamines Screen Neg (NEGATIVE) Urine Benzodiazepines Screen Pos (NEGATIVE) Urine Cocaine Screen Neg (NEGATIVE) Urine Cannabinoids Screen Neg (NEGATIVE) Test 04/26/25 08:23 04/26/25 07:47 04/26/25 04:39 04/25/25 23:13 Influenza Type A Antigen Negative (Negative) Influenza Type B Antigen Negative (Negative) SARS-CoV-2 Antigen (Rapid) Negative (NEGATIVE) Lactic Acid Level 1.6 mmol/L (0.4-2.0) Phosphorus Level 4.6 mg/dL (2.4-5.1) C-Reactive Protein High Sensitivity > 20.00 mg/dL (<1.0) Free Thyroxine (T4) Calculated 0.33 ng/dL (0.89-1.76) Parathyroid Hormone (Intact) 181.6 pg/mL (18.4-80.1) Random Vancomycin Level 14.8 ug/mL (5-10) Iron Level 16 ug/dL (50-170) Total Iron Binding Capacity 241 ug/dL (250-425) Percent Iron Saturation 6.6 % (15-50) Ferritin 1779.8 ng/mL (10-291) Total Bilirubin 0.3 mg/dL (0.2-1.0) Aspartate Amino Transferase (AST) 59 U/L (13-40) Alanine Aminotransferase (ALT) 24 U/L (7-40) Alkaline Phosphatase 42 U/L (46-116) Troponin I High Sensitivity 7 ng/L (</=34) Total Protein 5.0 g/dL (5.7-8.2) Albumin 3.0 g/dL (3.2-4.8) Prothrombin Time 12.0 sec (9.3-11.8) Prothrombin Time INR 1.15 (0.9-1.15) Activated Partial Thromboplast Time 31.7 SEC (24.5-34.5) Hemoglobin A1c 5.6 % A1C (<5.7) B-Type Natriuretic Peptide 146.09 pg/mL (0-100) Vitamin B12 Level 511 pg/mL (211-911) Vitamin D 25-Hydroxy 35.1 ng/mL (30.0-100) Folic Acid 6.79 ng/mL (>5.38) Thyroid Stimulating Hormone (TSH) 29.16 uIU/mL (0.55-4.78) Test 04/25/25 12:59 Urine Color Yellow (Yellow) Urine Clarity Turbid (Clear) Urine pH 6.0 (5.0-9.0) Urine Specific [place] 1.008 (1.001-1.035) Urine Protein Trace (Negative) Urine Ketones Negative (Negative) Urine Blood Trace /uL (Negative) Urine Nitrite Negative (Negative) Urine Bilirubin Negative (Negative) Urine Urobilinogen Normal mg/dL (Negative) Urine Leukocyte Esterase 3+ /uL (Negative) Urine RBC 1 /hpf (0 - 4) Urine WBC Clumps Present /hpf (None Seen) Urine Microscopic WBC 395 /HPF (0-5) Urine Squamous Epithelial Cells Few /hpf (<5) Urine Bacteria Many /hpf (None Seen) Urine Hyaline Casts Few /lpf (0 - 2) Urine Glucose Normal mg/dL (Normal) Other Laboratory Tests 05/02/25 04:49 05/01/25 06:04 Brief Hx & Hospital Course: 54-year-old female with a known history of COPD, chronic respiratory failure on home O2, sleep apnea, initially presented to the hospital with a recurrent fall found to have septic shock secondary to pneumonia and UTI which was treated with the IV antibiotics. Patient was found to have ESBL bacteremia with a repeat blood cultures are negative. Patient also has a acute kidney injury secondary to vasomotor nephropathy currently improved. Patient has a complicated cystitis which was treated with the IV antibiotics. Patient is being discharged on home IV antibiotics with the home health. Please follow up with the PCP in 1-2 weeks. Condition at Discharge: Stable Final Diagnosis/Problems List 54-year-old female with a known history of COPD, chronic respiratory failure on home O2, sleep apnea, initially presented to the hospital with a recurrent fall found to have 1. Septic shock secondary to pneumonia and UTI 2. ESBL bacteremia repeat blood cultures are negative 3. NYASIA secondary to underlying vasomotor nephropathy 4. Complicated cystitis 5. Morbid obesity classII 6. Chronic respiratory failure 7. COPD Discharge Disposition: Home with Health Services SNF Discharge Will this Physician continue t: No Discharge Instruct/Medications Diet: Cardiac 2g Na,low cholest Activity: No Restrictions, As Tolerated Follow Up/Referral: Follow up with the PCP in 1-2 weeks Medications: Medication as prescribed and reconciled. Scheduled Albuterol Sulfate (Albuterol Sulfate Hfa), 2.5 MG IN QID, (Reported) Alprazolam (Alprazolam), 1 TAB PO BID, (Reported) Amiodarone Hcl (Amiodarone Hcl), 1 TAB PO DAILY Apixaban Base (Eliquis), 5 MG PO BID Bisacodyl (Bisacodyl), 10 MG RE NO BM FOR 3 DAYS, (Reported) Cholecalciferol (Vitamin D3), 1 TAB PO DAILY, (Reported) Clonidine Hydrochloride (Clonidine Hcl), 0.1 MG PO BID, (Reported) Doxepin Hcl (Doxepin Hcl), 3 CAP PO QPM, (Reported) Estradiol (Estradiol), 1 MG PO DAILY, (Reported) Furosemide (Furosemide), 1 TAB PO BID Lactobacillus (Probiotic), 1 CAP PO DAILY, (Reported) Metoprolol Succinate (Metoprolol Succinate Er), 200 MG PO BID, (Reported) Nystatin-Triamcinolone (Mycolog), 1 APPLIC TOP BID, (Reported) Pantoprazole Sodium Sesquihydr (Pantoprazole Sodium), 40 MG PO DAILY, (Reported) Potassium Chloride (Potassium Chloride ER), 10 MEQ PO DAILY Prazosin Hcl (Minipres), 4 MG PO QPM, (Reported) Rosuvastatin Calcium (Crestor), 40 MG PO DAILY, (Reported) Sertraline Hcl (Sertraline Hcl), 2 TAB PO DAILY, (Reported) Tizanidine Hydrochloride (Zanaflex), 1 CAP PO QPM, (Reported) Scheduled PRN Hydroxyzine Hcl (Hydroxyzine Hcl), 25 MG PO Q6HP PRN for N&V, (Reported) Hyoscyamine Sulfate (Levsin), 1 TAB PO Q4HPRN PRN for increased secretions, (Reported) Ibuprofen (Ibuprofen), 800 MG PO DAILYP PRN for PAIN SCALE 1 THRU 6, (Reported) Ipratropium-Albuterol (Ipratropium [place]/Albut), 1 SUSANA IN Q4HP PRN for SHORTNESS OF BREATH, (Reported) Tizanidine Hydrochloride (Tizanidine Hcl), 1 TAB PO TID PRN, (Reported) Discharge Statement: "Patient was advised to return to the ER or call 911 if any headaches, dizziness, shortness of breath, chest pain, abdominal pain, bleeding, fevers, or worsening of medical condition. Patient was counseled about treatment plan, medications, possible side effects, patientverbalized understanding. All questions were answered to the best of my ability. This discharge took greater then 30 minutes in planning, reviewing documentation, counseling the patient, and discussing with other team members." ASSESSMENT ASSESSMENT Assessment 54-year-old female with a known history of COPD, chronic respiratory failure on home O2, sleep apnea, initially presented to the hospital with a recurrent fall found to have 1. Septic shock secondary to pneumonia and UTI 2. ESBL bacteremia repeat blood cultures are negative 3. NYASIA secondary to underlying vasomotor nephropathy 4. Complicated cystitis 5. Morbid obesity classII 6. Chronic respiratory failure 7. COPD Date of Service: May 03, 2025 Billing Provider: GEORGIANA NOEL MD Common Visit Codes: 11929-[id number] DISCH DAY >30min GEORGIANA NOEL MD May 03, 2025 15:59
== END 2025-05-03 17:36 | disposition home health service (06) | DRG 720 ==
LOC: EDBD 15:21 → ER 15:21 → EDUNIT# 23:16 → OVERFLOW 23:16 → WEST WING 23:17 → TELE-WESTW 04-27 16:48 → WEST WING 04-28 23:04
PROVIDERS: ADMIT Hospitalist; ATTEND Hospitalist
PROC: 02HV33Z Insertion of Infusion Device into Superior Vena Cava, Percutaneous Approach (ICD-10-PCS; principal; 2025-04-26)
PROC: 05HA33Z Insertion of Infusion Device into Left Brachial Vein, Percutaneous Approach (ICD-10-PCS; 2025-04-29)
PROC: B54NZZA Ultrasonography of Left Upper Extremity Veins, Guidance (ICD-10-PCS; 2025-04-29)
DX: A41.9 Sepsis, unspecified organism (principal); N17.0 Acute kidney failure with tubular necrosis; R65.21 Severe sepsis with septic shock; G93.41 Metabolic encephalopathy; I13.0 Hypertensive heart and chronic kidney disease with heart failure and stage 1 through stage 4 chronic kidney disease, or unspecified chronic kidney disease; J18.9 Pneumonia, unspecified organism; I50.32 Chronic diastolic (congestive) heart failure; D63.8 Anemia in other chronic diseases classified elsewhere; J44.0 Chronic obstructive pulmonary disease with (acute) lower respiratory infection; J96.10 Chronic respiratory failure, unspecified whether with hypoxia or hypercapnia; S09.8XXA Other specified injuries of head, initial encounter; N25.81 Secondary hyperparathyroidism of renal origin; N30.00 Acute cystitis without hematuria; E87.6 Hypokalemia; I48.0 Paroxysmal atrial fibrillation; I44.0 Atrioventricular block, first degree; E66.01 Morbid (severe) obesity due to excess calories; E07.9 Disorder of thyroid, unspecified; E11.22 Type 2 diabetes mellitus with diabetic chronic kidney disease; E83.42 Hypomagnesemia; I08.3 Combined rheumatic disorders of mitral, aortic and tricuspid valves; M06.9 Rheumatoid arthritis, unspecified; N18.32 Chronic kidney disease, stage 3b; G47.33 Obstructive sleep apnea (adult) (pediatric); F32.A Depression, unspecified; F41.9 Anxiety disorder, unspecified; Z79.899 Other long term (current) drug therapy; Z85.42 Personal history of malignant neoplasm of other parts of uterus; Z95.2 Presence of prosthetic heart valve; Z99.81 Dependence on supplemental oxygen; Z88.1 Allergy status to other antibiotic agents; Z79.01 Long term (current) use of anticoagulants; Z90.710 Acquired absence of both cervix and uterus; W18.39XA Other fall on same level, initial encounter; Y93.89 Activity, other specified; Y92.89 Other specified places as the place of occurrence of the external cause; Y99.8 Other external cause status
CPT/HCPCS: 36415; 36556; 70450; 71045; 72125; 74018; 76775; 80048; 80053; 80202; 80307; 81001; 82270; 82306; 82570; 82607; 82728; 82746; 83036; 83516; 83540; 83550; 83605; 83735; 83880; 83930; 83970; 84100; 84156; 84300; 84439; 84443; 84484; 85007; 85025; 85027; 85610; 85652; 85730; 86038; 86141; 86160; 86225; 86235; 86431; 87040; 87077; 87081; 87086; 87186; 87426; 87804; 93005; 93886; 94640; 96365; 97110; 97163; 99291; 99292; G0378; J1335; J2003; J2185; J2470; J3480

== ENCOUNTER 2025-06-08 20:55 | Inpatient (IN) | payer MEDICAID ==
[~2025-06-08] VITALS: Ht 167.6 cm; Wt 101.0 kg
[2025-06-08 20:55] VITALS: PULSE 94; RESP 16; O2SAT 100
[~2025-06-08 20:55] MED LIST changes: +FLUT50SP EACHNOSTRI; +HYDR-4798 PO; +IBUP-1455 PO; -IBUP-1456 PO; +METO200T42 PO; +NIFE1TAB30 PO; +NITR50CA52 PO; +PRAZ2CAP2 PO; +PROM25TA10 PO; +TIZA-142 PO; +[UNRECOGNIZED DRUG - CODE] PO
--- NOTE | 2025-06-08 21:12 | ED.PDOC ---
SOB-HPI HPI Comments 54 year old female presents to the ED via EMS with a chief complaint of shortness of breath onset today about 30 minutes prior to EMS arrival. Per EMS, patient has been experiencing shortness of breath for the past day, worsen the past 30 minutes. For the past 2 weeks shes noticed bilateral ankle swelling, the past 2 days she has been experiencing nausea/vomiting. Upon EMS arrival, patient was on 4L O2 with O2 sat of 60%, was placed on c-pap O2 sat improved to 80%. Upon ED arrival, patient was continued on c-pap, O2 sat was 100%, patient states symptoms are improving. She has had multiple intubations due to similar symptoms. PMHx CHF, COPD, HTN, HLD. Denies chest pain, dizziness, fever, chills, abdominal pain. No other symptoms or modifying factors present at this time. 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 History Family History Family History: Unknown Social History Smoker: Non-Smoker Alcohol: Denies ETOH Use Drugs: Denies Drug Use Lives In: Home Constitutional: denies: chills, diaphoresis, fatigue, fever, malaise, sweats, weakness, others EENTM: denies: blurred vision, double vision, ear bleeding, ear discharge, ear drainage, ear pain, ear ringing, eye pain, eye redness, hearing loss, mouth pain, mouth swelling, nasal discharge, nose bleeding, nose congestion, nose pain, photophobia, tearing, throat pain, throat swelling, voice changes, others Respiratory: reports: shortness of breath; denies: cough, hemoptysis, orthopnea, SOB at rest, SOB with excertion, stridor, wheezing, others Cardiovascular: denies: chest pain, dizzy spells, diaphoresis, Dyspnea on exertion, edema, irregular heart beat, left arm pain, lightheadedness, palpitations, PND, syncope, others Gastrointestinal: reports: nausea, vomiting; denies: abdomen distended, abdominal pain, blood streaked bowels, constipated, diarrhea, dysphagia, difficulty swallowing, hematemesis, melena, poor appetite, poor fluid intake, rectal bleeding, rectal pain, others Genitourinary: denies: abnormal vagina bleeding, burning, dyspareunia, dysuria, flank pain, frequency, hematuria, incontinence, pain, , vagina discharge, urgency, others Neurological: denies: dizziness, fainting, headache, left sided numbness, left sided weakness, numbness, paresthesia, pre-existing deficit, right sided numbness, right sided weakness, seizure, speech problems, tingling, tremors, weakness, others Musculoskeletal: reports: others (bilateral ankle swelling); denies: back pain, gout, joint pain, joint swelling, muscle pain, muscle stiffness, neck pain Integumetry: denies: bruises, change in color, change in hair/nails, dryness, laceration, lesions, lumps, rash, wounds, others Allergic/Immunocompromised: denies: Difficulty Healing, Frequent Infections, Hives, Itching, others Hematologic/Lymphatic: denies: anemia, blood clots, easy bleeding, easy bruising, swollen glands, others Endocrine: denies: excessive hunger, excessive sweating, excessive thirst, excessive urination, flushing, intolerance to cold, intolerance to heat, unexplained weight gain, unexplained weight loss, others Psychiatric: denies: anxiety, bipolar disorder, depression, hopeless, panic disorder, schizophrenia, sleepless, suicidal, others All Other Systems: Reviewed and Negative Physical Exam General Appearance: Normal HEENT: Normal ENT Inspection, Pharynx Normal, TMs Normal Neck: Full Range of Motion, Non-Tender, Normal, Normal Inspection Respiratory: Chest Non-Tender, Other (tachypneic) Cardiovascular: No Edema, No JVD, No Murmur, No Gallop, Normal Peripheral Pulses, Tachycardia Breast Exam: Deferred Gastrointestinal: No Organomegaly, Non Tender, No Pulsatile Mass, Normal Bowel Sounds, Soft Genitalia: Deferred Pelvic: Deferred Rectal: Deferred Extremities: No calf tenderness, Normal capillary refill, Normal inspection, Normal range of motion, Non-tender, No pedal edema Musculoskeletal : Apperance: Normal Neurologic: Alert, tarper II-XII nml as Tested, No Motor Deficits, Normal Affect, Normal Mood, No Sensory Deficits Cerebellar Function: Normal Reflexes: Normal Skin: Dry, Normal Color, Warm Lymphatic: No Adenopathy Was a procedure done? Was a procedure done?: No Differential Dx Differential Diagnosis: CHF, Hypertension, Pneumonia, URI X-Ray, Labs, Meds, VS Vital Signs Date Time Temp Pulse Resp B/P (MAP) Pulse Ox O2 Delivery O2 Flow Rate FiO2 06/09/25 00:00 97 30 141/73 (95) 94 06/08/25 23:00 92 24 147/73 (97) 98 06/08/25 22:41 94 12 153/87 60.0 06/08/25 22:00 92 17 147/73 (97) 100 06/08/25 21:11 30 90 Bi-Pap+ 60 60 06/08/25 21:05 94 06/08/25 21:03 98.2 90 30 153/87 90 98.2 06/08/25 21:01 Facial BiPAP Mask 60 06/08/25 21:00 94 16 141/78 (99) 100 06/08/25 20:55 94 16 100 Bi-Pap+ 60 60 06/08/25 20:55 98.2 94 16 141/78 (99) 100 98.2 Lab Test 06/08/25 23:11 06/08/25 22:13 06/08/25 22:07 06/08/25 21:15 Range/Units Lactic Acid Level 1.5 0.4-2.0 mmol/L Troponin I High Sensitivity < 3 L < 3 L </=34 ng/L Blood Gas Specimen Type Venous Blood Gas Sample Site Vbg - n/a Blood Gas Patient Temperature 37.0 Arterial Blood Date Drawn [id number] Elfego Test Modified Venous Blood pH 7.371 7.320-7.430 Venous Blood pCO2 at Patient Temp 38.8 38.0-54.0 mmHg Venous Blood pO2 at Patient Temp 46.3 23.0-48.0 mmHg Venous Blood HCO3 22.0 22.0-29.0 mmol/L Venous Blood Base Excess -2.9 L -2.0-3.0 mmol/L Blood Gas Modality Mask - bipap FiO2 % 60.0 Blood Gas EPAP 5 Blood Gas IPAP 12 White Blood Count 15.5 H 4.4-10.8 10^3/uL Red Blood Count 3.22 L 4.0-5.20 10^6/uL Hemoglobin 9.0 L 12.2-16.2 g/dL Hematocrit 28.5 L 36.0-46.0 % Mean Corpuscular Volume 88.6 80.0-100.0 fL Mean Corpuscular Hemoglobin 27.9 L 28.0-32.0 pg Mean Corpuscular Hemoglobin Concent 31.4 L 32.0-36.0 g/dL Red Cell Distribution Width 16.0 H 11.8-14.3 % Platelet Count 336 140-450 10^3/uL Mean Platelet Volume 9.4 6.9-10.8 fL Neutrophils (%) (Auto) 78.8 37.0-80.0 % Lymphocytes (%) (Auto) 14.3 10.0-50.0 % Monocytes (%) (Auto) 4.8 0.0-12.0 % Eosinophils (%) (Auto) 1.3 0.0-7.0 % Basophils (%) (Auto) 0.8 0.0-2.0 % Neutrophils # (Auto) 12.2 H 1.6-8.6 10 ^3/uL Lymphocytes # (Auto) 2.2 0.4-5.4 10 ^3/uL Monocytes # (Auto) 0.7 0-1.3 10 ^3/uL Eosinophils # (Auto) 0.2 0-0.8 10 ^3/uL Basophils # (Auto) 0.1 0-0.2 10 ^3/uL Nucleated Red Blood Cells 0.0 % Prothrombin Time 11.2 9.3-11.8 sec Prothrombin Time INR 1.06 0.9-1.15 Activated Partial Thromboplast Time 29.7 24.5-34.5 SEC Sodium Level 140 136-145 mmol/L Potassium Level 4.1 3.5-5.1 mmol/L Chloride Level 105 98-107 mmol/L Carbon Dioxide Level 25 20-31 mmol/L Anion Gap 10 5-15 Blood Urea Nitrogen 15 9-23 mg/dL Creatinine 1.78 H 0.550-1.02 mg/dL Glomerular Filtration Rate Calc 34 >90 mL/min BUN/Creatinine Ratio 8.4 L 10.0-20.0 Serum Glucose 115 H 74-106 mg/dL Calcium Level 9.1 8.7-10.4 mg/dL B-Type Natriuretic Peptide 392.00 0-100 pg/mL Current Medications Medications (Trade) Dose Ordered Sig/Bárbara Route Start Time Stop Time Status Last Admin Cefepime HCl 50 ml @ 12.5 mls/hr ONCE STAT IV 06/08/25 22:46 06/09/25 02:45 06/08/25 23:17 [place] [address] Ph: [phone] DIAGNOSTIC IMAGING Diagnostic Imaging Report : [id number] Signed PATIENT: HATTIE LOUIS ACCT: [id number] UNIT: [id number] : 1970 LOC: ER ROOM / BED: / AGE / SEX: 54 / F ADM STATUS: REG ER SERVICE 02 ORDERING PHYSICIAN: NABIL MERCADO MD PROCEDURE(s): CXRP - CHEST PORTABLE REASON: sob ORDER NUMBER(s): [id number], ACCESSION NUMBER(s): [id number] EXAM: XY CHEST PORTABLE CLINICAL HISTORY: sob TECHNIQUE: Single AP view of the chest WID: COMPARISON: 01/23/2025, report from chest radiograph dated 05/28/2025 FINDINGS: Lines and tubes: None Chest: The heart size and pulmonary vasculature is within normal limits. Patchy mixed airspace opacities bilaterally, greatest in the right upper lung. No pleural effusion or pneumothorax. The osseous structures are grossly intact. IMPRESSION: 1. Patchy mixed airspace opacities bilaterally this is greatest in the right upper lung. ATED BY: NATALIA VALENTINE MD DICTATED DATE/TIME: 06/08/252149 SIGNED BY: NATALIA VALENTINE MD SIGNED DATE/TIME: 06/08/252149 CC: Time of 1ST Reevaluation: 21:25 Reevaluation 1ST: Unchanged Patient Education/Counseling: Diagnosis, Treatment, Prognosis Family Education/Counseling: No Family Present SEPSIS Sepsis Screen Physician Orders BIPAP (06/08/25 21:00) Chest Portable (06/08/25 21:03) Electrocardigram (06/08/25 21:03) Electrocardigram (06/08/25 22:03) Electrocardigram (06/09/25 00:03) Venous Blood Gas (06/08/25 22:16) Blood Culture (06/08/25 22:46) Cefepime 1gm/ 50ml (Maxipime 1gm/50ml) (06/08/25 22:46) Notify Md If Map <65 Or Bp<90 (06/08/25 22:46) If Map<65 Start Vasopressor (06/08/25 22:46) Sepsis Fluid Exclusion: (06/08/25 22:46) Sepsis Reassesment After Fluid (06/08/25 23:46) Vital Signs Date Time Temp Pulse Resp B/P (MAP) Pulse Ox O2 Delivery O2 Flow Rate FiO2 06/09/25 00:00 97 30 141/73 (95) 94 06/08/25 23:00 92 24 147/73 (97) 98 06/08/25 22:41 94 12 153/87 60.0 06/08/25 22:00 92 17 147/73 (97) 100 06/08/25 21:11 30 90 Bi-Pap+ 60 60 06/08/25 21:05 94 06/08/25 21:03 98.2 90 30 153/87 90 98.2 06/08/25 21:01 Facial BiPAP Mask 60 06/08/25 21:00 94 16 141/78 (99) 100 06/08/25 20:55 94 16 100 Bi-Pap+ 60 60 06/08/25 20:55 98.2 94 16 141/78 (99) 100 98.2 Laboratory Tests Test 06/08/25 21:15 06/08/25 23:11 White Blood Count 15.5 10^3/uL (4.4-10.8) H Lactic Acid Level 1.5 mmol/L (0.4-2.0) Medications Medications Dose Ordered Sig/Bárbara Route Start Time Stop Time Status Last Admin Dose Admin Cefepime HCl 50 ml @ 12.5 mls/hr ONCE STAT IV 06/08/25 22:46 06/09/25 02:45 06/08/25 23:17 Departure 1 Departure Time of Disposition: 00:43 (Patient with a worsening shortness of breath found to have possible pneumonia. Patient requiring BiPAP. We will admit patient for further workup and expert consultation) Impression: Primary Impression: Acute on chronic respiratory failure with hypoxemia Additional Impression: Pneumonia Qualified Codes: J18.9 - Pneumonia, unspecified organism Disposition: 09 ADMITTED INPATIENT Admit to: [facility] Condition: Guarded Critical Care Note Critical Care Time?: Yes Critical care comment: Acute on chronic respiratory failure Authorized and Performed by: Nabil Mercado MD Total critical care time: Approximately 138 minutes Due to a high probability of clinically significant, life threatening deterioration, the patient required my highest level of preparedness to intervene emergently and I personally spent this critical care time directly and personally managing the patient. This critical care time included obtaining a hi story; examining the patient; pulse oximetry; ordering and review of studies; arranging urgent treatment with development of a management plan; evaluation of patient's response to treatment; frequent reassessment; and, discussions with other providers. This critical care time was performed to assess and manage the high probability of imminent, life-threatening deterioration that could result in multi-organ failure. It was exclusive of separately billable procedures and treating other patients and teaching time. Please see my other sections and the rest of the note for further information on patient assessment and treatment. Stability Stability form required: No Heart Score Heart Score: Heart Score Response (Comments) Value History Moderate Suspicious 1 EKG Repolarization Disturb 1 Age 45-64 1 Risk Factors >3 or Hx ASHD 2 Troponin 1-2 x's Normal limit 1 Total 6 I personally scribed for NABIL MERCADO MD ([email or web address]) on 06/08/25 at 21:12. Electronically submitted by Yvette Connell ([email or web address]). I personally scribed for NABIL MERCADO MD ([email or web address]) on 06/08/25 at 22:08. Electronically submitted by Yvette Connell ([email or web address]). NABIL MERCADO MD Jun 08, 2025 21:12
[2025-06-08 21:39] LABS: Hematocrit 28.5 % (36.0-46.0); Hemoglobin 9.0 g/dL (12.2-16.2); Mean Corpuscular Hemoglobin 27.9 pg (28.0-32.0); Mean Corpuscular Volume 88.6 fL (80.0-100.0); Nucleated Red Blood Cells % 0.0 %
[2025-06-08 21:44] LABS: Chloride 105 mmol/L (98-107); Potassium 4.1 mmol/L (3.5-5.1); Sodium 140 mmol/L (136-145)
[2025-06-08 21:45] LABS: Anion Gap 10 (5-15); Calcium 9.1 mg/dL (8.7-10.4); Carbon Dioxide 25 mmol/L (20-31)
[2025-06-08 21:50] LABS: BUN/Creatinine Ratio 8.4 (10.0-20.0); Blood Urea Nitrogen 15 mg/dL (9-23)
--- NOTE | 2025-06-08 21:52 | DVH ---
EXAM: XY CHEST PORTABLE CLINICAL HISTORY: sob TECHNIQUE: Single AP view of the chest WID: COMPARISON: 01/23/2025, report from chest radiograph dated 05/28/2025 FINDINGS: Lines and tubes: None Chest: The heart size and pulmonary vasculature is within normal limits. Patchy mixed airspace opacities bilaterally, greatest in the right upper lung. No pleural effusion or pneumothorax. The osseous structures are grossly intact. IMPRESSION: 1. Patchy mixed airspace opacities bilaterally this is greatest in the right upper lung.
[2025-06-08 22:00] LABS: Glucose 115 mg/dL (74-106)
[2025-06-08 22:41] VITALS: BP 153/87; PULSE 94; RESP 12
[2025-06-08 23:09] LABS: INR 1.06 (0.9-1.15); Partial Thromboplastin Time 29.7 SEC (24.5-34.5); Prothrombin Time 11.2 sec (9.3-11.8)
[2025-06-08] MEDS: CEFEPIME 1GM/50ML 50 ML IV STA (23:17)
[2025-06-09] VITALS (13 sets, daily range): BP systolic 134–165; BP diastolic 57–85; PULSE 93–102; RESP 12–36; O2SAT 91–99
[2025-06-09] MEDS ORDERED: NITROGLYCERIN 0.4 MG SL TAB SL PRN (01:00)
[2025-06-09] MEDS ORDERED: ONDANSETRON HCL 4 MG/2 ML VIAL IV PRN (01:00)
[2025-06-09] MEDS: MORPHINE SULFATE INJ 2 MG/ml SYRG IV PRN (02:07)
[2025-06-09] MEDS: ALBUTEROL SULF 2.5 MG/0.5ML(0.5%) NEB SOLN NEB PRN (02:47)
[2025-06-09] MEDS: IPRATROPIUM BROM 0.5 MG/2.5ML INH SOL NEB PRN (02:47)
[2025-06-09] MEDS: methylPREDNISolone SOD SUCC 125 MG/2 ML VL IV ONE (04:15)
--- NOTE | 2025-06-09 04:18 | DVHHP2 ---
History of Present Illness Reason for Visit: Shortness for breath History of Present Illness 54-year-old female presents for evaluation of shortness for breath. Patient reports a two day history of worsening shortness for breath with a nonproductive cough. She has also noticed ankle swelling over the past two weeks. Denies c hest pain or palpitations. No fever or chills. Past Medical History Dyslipidemia, hypertension, COPD and CHF Past Surgical History Denies Family History Noncontributory Smoke: No ALCOHOL: none Drugs: None Lives: with Family Review of Systems Review of Systems Review of systems are currently negative otherwise addressed in HPI. Allergies: Coded Allergies: Erythromycin (Unverified Allergy, Severe, 01/19/25) Ondansetron (Unverified Allergy, Severe, hives, 06/09/25) Azithromycin (Verified Allergy, Unknown, 01/19/25) Medications Current Medications Medications Dose Ordered Sig/Bárbara Route Start Time Stop Time Status Last Admin Dose Admin Cefepime HCl 50 ml @ 12.5 mls/hr Q12HR IV 06/09/25 10:00 Apixaban 5 mg BID PO 06/09/25 10:00 Amiodarone HCl 200 mg Q12HR PO 06/09/25 10:00 Sertraline HCl 100 mg DAILY PO 06/09/25 10:00 Metoprolol Succinate 50 mg DAILY PO 06/09/25 10:00 Clonidine HCl 0.1 mg Q6HP PRN PO 06/09/25 01:00 Albuterol 2.5 mg Q6HPRN PRN NEB 06/09/25 01:00 06/09/25 02:47 2.5 MG Ipratropium [place] 0.5 mg Q6HPRN PRN NEB 06/09/25 01:00 06/09/25 02:47 0.5 MG Ondansetron HCl 4 mg Q4HP PRN IV 06/09/25 01:00 Acetaminophen 650 mg Q6HP PRN PO 06/09/25 01:00 Nitroglycerin 0.4 mg Q5MINP PRN SL 06/09/25 01:00 Morphine Sulfate 2 mg Q30M PRN IV 06/09/25 01:00 06/09/25 02:07 2 MG Exam Vital Signs Vital Signs Date Time Temp Pulse Resp B/P (MAP) Pulse Ox O2 Delivery O2 Flow Rate FiO2 06/09/25 02:39 93 20 149/57 06/09/25 02:00 95 06/09/25 01:42 Bi-pap/CPAP 06/09/25 01:42 40 40 06/08/25 22:41 60.0 06/08/25 21:03 98.2 98.2 Exam Gen: 54-year-old female in moderate distress Skin: Warm, dry, normal color and texture, no rash. HEENT: Normocephalic atraumatic, mucous membranes moist and pink. Neck: Cervical and supraclavicular nodes normal without enlargement, trachea is midline, thyroid gland is normal without masses. Pulmonary: Bilateral rhonchi Cardiac: Regular rate and rhythm. No murmur Abdomen: Soft, nontender, nondistended, bowel sounds present all 4 quadrants, no guarding, no rigidity, no organomegaly. Extremities: No cyanosis, clubbing, no edema Neuro: Cranial nerves II through XII grossly intact, normal affect and speech, no focal motor deficits. Labs/Xrays ORDERING PHYSICIAN: NABIL MERCADO MD PROCEDURE(s): CXRP - CHEST PORTABLE REASON: sob ORDER NUMBER(s): [id number], ACCESSION NUMBER(s): [id number] EXAM: XY CHEST PORTABLE CLINICAL HISTORY: sob TECHNIQUE: Single AP view of the chest WID: COMPARISON: 01/23/2025, report from chest radiograph dated 05/28/2025 FINDINGS: Lines and tubes: None Chest: The heart size and pulmonary vasculature is within normal limits. Patchy mixed airspace opacities bilaterally, greatest in the right upper lung. No pleural effusion or pneumothorax. The osseous structures are grossly intact. IMPRESSION: 1. Patchy mixed airspace opacities bilaterally this is greatest in the right upper lung. Labs Test 06/08/25 23:11 06/08/25 22:13 06/08/25 22:07 06/08/25 21:15 Range/Units Lactic Acid Level 1.5 0.4-2.0 mmol/L Troponin I High Sensitivity < 3 L </=34 ng/L Blood Gas Specimen Type Venous Blood Gas Sample Site Vbg - n/a Blood Gas Patient Temperature 37.0 Arterial Blood Date Drawn [id number] Elfego Test Modified Venous Blood pH 7.371 7.320-7.430 Venous Blood pCO2 at Patient Temp 38.8 38.0-54.0 mmHg Venous Blood pO2 at Patient Temp 46.3 23.0-48.0 mmHg Venous Blood HCO3 22.0 22.0-29.0 mmol/L Venous Blood Base Excess -2.9 L -2.0-3.0 mmol/L Blood Gas Modality Mask - bipap FiO2 % 60.0 Blood Gas EPAP 5 Blood Gas IPAP 12 White Blood Count 15.5 H 4.4-10.8 10^3/uL Red Blood Count 3.22 L 4.0-5.20 10^6/uL Hemoglobin 9.0 L 12.2-16.2 g/dL Hematocrit 28.5 L 36.0-46.0 % Mean Corpuscular Volume 88.6 80.0-100.0 fL Mean Corpuscular Hemoglobin 27.9 L 28.0-32.0 pg Mean Corpuscular Hemoglobin Concent 31.4 L 32.0-36.0 g/dL Red Cell Distribution Width 16.0 H 11.8-14.3 % Platelet Count 336 140-450 10^3/uL Mean Platelet Volume 9.4 6.9-10.8 fL Neutrophils (%) (Auto) 78.8 37.0-80.0 % Lymphocytes (%) (Auto) 14.3 10.0-50.0 % Monocytes (%) (Auto) 4.8 0.0-12.0 % Eosinophils (%) (Auto) 1.3 0.0-7.0 % Basophils (%) (Auto) 0.8 0.0-2.0 % Neutrophils # (Auto) 12.2 H 1.6-8.6 10 ^3/uL Lymphocytes # (Auto) 2.2 0.4-5.4 10 ^3/uL Monocytes # (Auto) 0.7 0-1.3 10 ^3/uL Eosinophils # (Auto) 0.2 0-0.8 10 ^3/uL Basophils # (Auto) 0.1 0-0.2 10 ^3/uL Nucleated Red Blood Cells 0.0 % Prothrombin Time 11.2 9.3-11.8 sec Prothrombin Time INR 1.06 0.9-1.15 Activated Partial Thromboplast Time 29.7 24.5-34.5 SEC Sodium Level 140 136-145 mmol/L Potassium Level 4.1 3.5-5.1 mmol/L Chloride Level 105 98-107 mmol/L Carbon Dioxide Level 25 20-31 mmol/L Anion Gap 10 5-15 Blood Urea Nitrogen 15 9-23 mg/dL Creatinine 1.78 H 0.550-1.02 mg/dL Glomerular Filtration Rate Calc 34 >90 mL/min BUN/Creatinine Ratio 8.4 L 10.0-20.0 Serum Glucose 115 H 74-106 mg/dL Calcium Level 9.1 8.7-10.4 mg/dL B-Type Natriuretic Peptide 392.00 0-100 pg/mL SEPSIS Sepsis Screen Date sepsis recognized/suspect: Jun 08, 2025 Time Sepsis recognized/suspect: 2107 Recent Procedure: No On Antibiotic Therapy: No Respiratory Rate >20: Yes Heart Rate >90: No Temp<36 C (96.8 F) or >38.3 C: No SBP <90 or MAP <65 mmHG: No New Acute Mental Status Change: No Is the patient on CPAP, BIPAP,: Yes Physician Orders BIPAP (06/08/25 21:00) Chest Portable (06/08/25 21:03) Electrocardigram (06/08/25 21:03) Electrocardigram (06/08/25 22:03) Electrocardigram (06/09/25 00:03) Venous Blood Gas (06/08/25 22:16) Blood Culture (06/08/25 22:46) Notify Md If Map <65 Or Bp<90 (06/08/25 22:46) If Map<65 Start Vasopressor (06/08/25 22:46) Sepsis Fluid Exclusion: (06/08/25 22:46) Sepsis Reassesment After Fluid (06/08/25 23:46) Cefepime 2gm/50ml Ns (Maxipime 2gm/50ml) (06/09/25 10:00) Apixaban (Eliquis) (06/09/25 10:00) Amiodarone Tablet (Cordarone Tablet) (06/09/25 10:00) Sertraline Hcl (Zoloft) (06/09/25 10:00) Metoprolol Xl Succinate (Toprol Xl) (06/09/25 10:00) Clonidine Hcl Tablet (Catapres Tablet) (06/09/25 01:00) Albuterol Medneb (Ventolin Medneb) (06/09/25 01:00) Ipratropium Medneb (Atrovent Medneb) (06/09/25 01:00) Basic Metabolic Panel (06/10/25 04:00) Admit (06/09/25 00:59) Renal Standard(2gna,3gk,Lopho) (06/09/25 Breakfast) Ondansetron Hcl (Zofran) (06/09/25 01:00) Complete Blood Count (06/10/25 04:00) Comprehensive Metabolic Panel (06/10/25 04:00) Cardiac Diet-2gna,Lofat,Lochol (06/09/25 Breakfast) Condition: Serious (06/09/25 00:59) Acetaminophen Tablet (Tylenol Tablet) (06/09/25 01:00) Bedrest With Bathroom Privileg (06/09/25 00:59) Nitroglycerin Sublingual (Ntrostat Subli (06/09/25 01:00) Morphine Sulfate Injection (06/09/25 01:00) Stat Ekg For Chest Pain (06/09/25 00:59) Notify Md Of Changes From Base (06/09/25 00:59) Customer Account Manager For 24 Hours (06/09/25 00:59) Emergency Dysrhythmia Protocol (06/09/25 00:59) Rhythm Strips Once Every Shift (06/09/25 00:59) Oxygen By Nasal Cannula (06/09/25 00:59) Vital Signs Date Time Temp Pulse Resp B/P (MAP) Pulse Ox O2 Delivery O2 Flow Rate FiO2 06/09/25 02:39 93 20 149/57 06/09/25 02:07 96 21 141/75 06/09/25 02:00 95 25 141/75 (97) 95 06/09/25 01:42 96 Bi-pap/CPAP 06/09/25 01:42 99 Bi-Pap+ 40 40 06/09/25 01:38 99 99 Nasal BiPAP Mask 40 06/09/25 01:00 93 27 162/61 (94) 95 06/09/25 00:00 90 06/09/25 00:00 97 30 141/73 (95) 94 06/08/25 23:00 92 24 147/73 (97) 98 06/08/25 22:41 94 12 153/87 60.0 06/08/25 22:00 92 17 147/73 (97) 100 06/08/25 21:11 30 90 Bi-Pap+ 60 60 06/08/25 21:05 94 06/08/25 21:03 98.2 90 30 153/87 90 98.2 06/08/25 21:01 Facial BiPAP Mask 60 06/08/25 21:00 94 16 141/78 (99) 100 06/08/25 20:55 94 16 100 Bi-Pap+ 60 60 06/08/25 20:55 98.2 94 16 141/78 (99) 100 98.2 Laboratory Tests Test 06/08/25 21:15 06/08/25 23:11 White Blood Count 15.5 10^3/uL (4.4-10.8) H Lactic Acid Level 1.5 mmol/L (0.4-2.0) Medications Medications Dose Ordered Sig/Bárbara Route Start Time Stop Time Status Last Admin Dose Admin Albuterol 2.5 mg Q6HPRN PRN NEB 06/09/25 01:00 06/09/25 02:47 2.5 MG Cefepime HCl 50 ml @ 12.5 mls/hr ONCE STAT IV 06/08/25 22:46 06/09/25 02:45 DC 06/08/25 23:17 12.5 MLS/HR Ipratropium [place] 0.5 mg Q6HPRN PRN NEB 06/09/25 01:00 06/09/25 02:47 0.5 MG Morphine Sulfate 2 mg Q30M PRN IV 06/09/25 01:00 06/09/25 02:07 2 MG Assessment/Plan Assessment/Plan Community-acquired pneumonia Acute hypoxic respiratory failure CHF COPD Leukocytosis Acute kidney injury Plan Admit the patient to [facility] to the hospitalist Continue BiPAP Cefepime Med nebs Resume home medications Continue treatment per orders. Plan discussed with: Patient My Orders Orders - ELZA AGUAYO AGACNP Procedure Category Date Status Time Cefepime 2gm/50ml Ns PHA 06/09/25 In Process (Maxipime 2gm/50ml) 10:00 Apixaban (Eliquis) PHA 06/09/25 In Process 10:00 Amiodarone Tablet PHA 06/09/25 In Process (Cordarone Tablet) 10:00 Sertraline Hcl PHA 06/09/25 In Process (Zoloft) 10:00 Metoprolol Xl PHA 06/09/25 In Process Succinate (Toprol Xl) 10:00 Clonidine Hcl Tablet PHA 06/09/25 In Process (Catapres Tablet) 01:00 Albuterol Medneb PHA 06/09/25 In Process (Ventolin Medneb) 01:00 Ipratropium Medneb PHA 06/09/25 In Process (Atrovent Medneb) 01:00 Basic Metabolic Panel LAB 06/10/25 Verified 04:00 Admit ADMIT 06/09/25 Transmitted 00:59 Renal DIET 06/09/25 Transmitted Standard(2gna,3gk,Lopho) Breakfast Ondansetron Hcl PHA 06/09/25 In Process (Zofran) 01:00 Complete Blood Count LAB 06/10/25 Verified 04:00 Comprehensive LAB 06/10/25 Verified Metabolic Panel 04:00 Cardiac DIET 06/09/25 Transmitted Diet-2gna,Lofat,Lochol Breakfast Condition: Serious DEANDRA 06/09/25 In Process 00:59 Acetaminophen Tablet PHA 06/09/25 In Process (Tylenol Tablet) 01:00 Bedrest With Bathroom DEANDRA 06/09/25 In Process Privileg 00:59 Nitroglycerin PHA 06/09/25 In Process Sublingual (Ntrostat 01:00 Morphine Sulfate PHA 06/09/25 In Process Injection 01:00 Stat Ekg For Chest DEANDRA 06/09/25 In Process Pain 00:59 Notify Md Of Changes DEANDRA 06/09/25 In Process From Base 00:59 Customer Account Manager For DEANDRA 06/09/25 In Process 24 Hours 00:59 Emergency Dysrhythmia DEANDRA 06/09/25 In Process Protocol 00:59 Rhythm Strips Once DEANDRA 06/09/25 In Process Every Shift 00:59 Oxygen By Nasal RT 06/09/25 Transmitted Cannula 00:59 Date of Service: Jun 09, 2025 Billing Provider: ELZA AGUAYO Common Visit Codes: [id number] CARE 30-74 MIN ELZA AGUAYO Jun 09, 2025 04:18
[2025-06-09] MEDS: FUROSEMIDE 40 MG/4 ML VIAL IV ONE (06:49)
[2025-06-09 06:55] LABS: Base Excess -1.9 mmol/L (-2.0-3.0)
[2025-06-09] MEDS: ACETAMINOPHEN 325 MG TAB PO PRN (08:53)
[2025-06-09] MEDS: SERTRALINE HCL 50 MG TAB PO SCH (10:03)
[2025-06-09] MEDS: APIXABAN 5 MG TAB PO SCH (10:05)
[2025-06-09] MEDS: METOPROLOL SUCCINATE XL 50 MG TAB PO SCH (10:05)
[2025-06-09] MEDS: AMIODARONE HCL 200 MG TAB PO SCH (10:06)
[2025-06-09] MEDS: CEFEPIME 2GM/50ML NS 50 ML IV SCH (10:06)
[2025-06-09] MEDS: FUROSEMIDE 100 MG/10ML VIAL IV ONE (14:50)
[2025-06-09] MEDS: methylPREDNISolone SOD SUCC 40 MG/ML VL IV SCH (18:05)
[2025-06-09] MEDS: FUROSEMIDE 40 MG/4 ML VIAL IV SCH (18:13)
[2025-06-09 22:00] LABS: Urine Protein, UAD Negative (Negative)
[2025-06-10] VITALS (18 sets, daily range): BP systolic 123–150; BP diastolic 51–129; PULSE 95–146; RESP 24–35; O2SAT 90–100
[2025-06-10 04:39] LABS: Hematocrit 30.7 % (36.0-46.0); Hemoglobin 9.8 g/dL (12.2-16.2); Mean Corpuscular Hemoglobin 28.0 pg (28.0-32.0); Mean Corpuscular Volume 88.2 fL (80.0-100.0); Nucleated Red Blood Cells % 0.1 %
[2025-06-10 04:53] LABS: Alanine Aminotransferase 27 U/L (7-40); Albumin 4.3 g/dL (3.2-4.8); Alkaline Phosphatase 70 U/L (46-116); Anion Gap 13 (5-15); BUN/Creatinine Ratio 12.4 (10.0-20.0); Blood Urea Nitrogen 21 mg/dL (9-23); Calcium 9.8 mg/dL (8.7-10.4); Carbon Dioxide 23 mmol/L (20-31); Chloride 100 mmol/L (98-107); Potassium 4.2 mmol/L (3.5-5.1); Total Protein 7.9 g/dL (5.7-8.2)
[2025-06-10 04:54] LABS: Bilirubin, Total 0.7 mg/dL (0.2-1.0)
[2025-06-10 04:56] LABS: Glucose 132 mg/dL (74-106); Sodium 136 mmol/L (136-145)
--- NOTE | 2025-06-10 11:44 | DVHPN2 ---
Subjective The patient is seen and examined at bedside. Remained on BiPAP however stated that she feels better. Reviewed: Care Plan, H&P, Labs, Medications, Previous Orders, Radiology Changes from previous H/P or p: No Changes Objective Vitals Vital Signs Date Time Temp Pulse Resp B/P (MAP) Pulse Ox O2 Delivery O2 Flow Rate FiO2 06/10/25 10:23 103 128/54 06/10/25 09:30 25 92 06/10/25 07:30 Bi-Pap+ 65 65 06/10/25 07:30 98.7 98.7 06/08/25 22:41 60.0 Intake/Output Intake and Output 06/10/25 07:00 Intake Total 50.0 ml Output Total 2800 ml Balance -2750.0 ml Intake IV Total 50.0 ml Output Urine Total 2800 ml General Appearance: Alert, Oriented X3, Cooperative, No acute distress HEENT: Atraumatic, PERRLA, EOMI, Mucous membr. moist/pink Neck: Supple Lungs: Clear to auscultation, Normal air movement Neuro: Cranial nerves 3-12 NL Lymph: Lymphadenopathy Medications Current Medications Medications Dose Ordered Sig/Bárbara Route Start Time Stop Time Status Last Admin Dose Admin Cefepime HCl 50 ml @ 12.5 mls/hr Q12HR IV 06/09/25 10:00 06/10/25 10:24 12.5 MLS/HR Apixaban 5 mg BID PO 06/09/25 10:00 06/10/25 10:23 5 MG Amiodarone HCl 200 mg Q12HR PO 06/09/25 10:00 06/10/25 10:23 200 MG Sertraline HCl 100 mg DAILY PO 06/09/25 10:00 06/10/25 10:23 100 MG Metoprolol Succinate 50 mg DAILY PO 06/09/25 10:00 06/10/25 10:23 50 MG Clonidine HCl 0.1 mg Q6HP PRN PO 06/09/25 01:00 Albuterol 2.5 mg Q6HPRN PRN NEB 06/09/25 01:00 06/10/25 00:38 2.5 MG Ipratropium [place] 0.5 mg Q6HPRN PRN NEB 06/09/25 01:00 06/10/25 00:38 0.5 MG Ondansetron HCl 4 mg Q4HP PRN IV 06/09/25 01:00 Cancel Acetaminophen 650 mg Q6HP PRN PO 06/09/25 01:00 06/09/25 08:53 650 MG Nitroglycerin 0.4 mg Q5MINP PRN SL 06/09/25 01:00 Morphine Sulfate 2 mg Q30M PRN IV 06/09/25 01:00 06/10/25 05:50 2 MG Methylprednisolone Sodium Succinate 40 mg BID IV 06/09/25 18:00 06/10/25 10:24 40 MG Furosemide 40 mg BIDD IV 06/09/25 18:00 06/10/25 05:50 40 MG Laboratory Results Laboratory Tests 06/10/25 03:51 Chemistry Test 06/10/25 03:51 Albumin 4.3 g/dL (3.2-4.8) Calcium Level 9.8 mg/dL (8.7-10.4) Total Protein 7.9 g/dL (5.7-8.2) LFT Test 06/10/25 03:51 Alanine Aminotransferase (ALT) 27 U/L (7-40) Alkaline Phosphatase 70 U/L (46-116) Aspartate Amino Transferase (AST) 68 U/L (13-40) H Total Bilirubin 0.7 mg/dL (0.2-1.0) Urinalysis Test 06/09/25 16:55 Urine Color Colorless (Yellow) Urine Clarity Clear (Clear) Urine pH 5.5 (5.0-9.0) Urine Specific [place] 1.007 (1.001-1.035) Urine Protein Negative (Negative) Urine Ketones Negative (Negative) Urine Blood 2+ /uL (Negative) H Urine Nitrite Negative (Negative) Urine Bilirubin Negative (Negative) Urine Urobilinogen Normal mg/dL (Negative) Urine Leukocyte Esterase Negative /uL (Negative) Urine RBC 38 /hpf (0 - 4) Urine Microscopic WBC 1 /HPF (0-5) Urine Squamous Epithelial Cells Few /hpf (<5) Urine Bacteria None seen /hpf (None Seen) Urine Glucose Normal mg/dL (Normal) Microbiology Microbiology Date/Time Source Procedure Growth Status 06/08/25 23:11 Blood Blood Culture - Preliminary NO GROWTH AFTER 24 HOURS OF INCUBATION. Resulted Labs and/or images reviewed: Labs reviewed by me Assessment/Plan Assessment/Plan Community-acquired pneumonia with Gram-positive pneumonia Acute hypoxic respiratory failure CHF with exacerbation COPD Leukocytosis Acute kidney injury Continuing current management. Continuing with IV Lasix. Consulted principal consulting engineer and wildlife officer. Her wildlife officer is Dr. Miller Continuing with BiPAP. We will monitor kidney function. Continuing IV antibiotics. This medical document was created using an electronic medical record system with [employer] dictation system. Although this document has been carefully reviewed, there may still be some phonetic and typographical errors. These areas are purely typographical due to imperfections of the software programs, and do not reflect any compromise in the patient's medical care. Plan discussed with: Patient My Orders Orders - CHAO HEATH MD Procedure Category Date Status Time Furosemide Injection PHA 06/09/25 In Process (Lasix Injection) 18:00 *Dr. [facility] CONS 06/09/25 Transmitted -[facility] 14:24 Complete Blood Count LAB 06/11/25 Verified 05:00 Complete Blood Count LAB 06/12/25 Verified 05:00 Complete Blood Count LAB 06/13/25 Verified 05:00 Complete Blood Count LAB 06/14/25 Verified 05:00 Basic Metabolic Panel LAB 06/11/25 Verified 05:00 Basic Metabolic Panel LAB 06/12/25 Verified 05:00 Basic Metabolic Panel LAB 06/13/25 Verified 05:00 Basic Metabolic Panel LAB 06/14/25 Verified 05:00 *Consult CONS 06/09/25 Transmitted / 22:20 Date of Service: Jun 10, 2025 Billing Provider: CHAO HEATH MD Common Visit Codes: [id number] INP/OBS CARE(HIGH) CHAO HEATH MD Jun 10, 2025 11:44
[2025-06-10] MEDS: DOXYCYCLINE 100MG/100ML 100 ML IV SCH (12:31)
[2025-06-11] VITALS (72 sets, daily range): BP systolic 101–176; BP diastolic 56–103; PULSE 78–150; RESP 16–33; TEMP 97.1–98.2; O2SAT 83–100
[2025-06-11] MEDS: ALPRAZolam 0.5 MG TAB PO PRN (00:39)
[2025-06-11] MEDS: HYDROcodone-ACET 5/325MG TAB PO PRN (00:40)
[2025-06-11 06:47] LABS: Base Excess 0.6 mmol/L (-2.0-3.0)
[2025-06-11 08:07] LABS: Nucleated Red Blood Cells % 0.0 %
[2025-06-11 08:10] LABS: Anion Gap 15 (5-15); Calcium 9.9 mg/dL (8.7-10.4); Carbon Dioxide 25 mmol/L (20-31); Potassium 3.7 mmol/L (3.5-5.1)
[2025-06-11 08:11] LABS: Hematocrit 31.4 % (36.0-46.0); Hemoglobin 10.2 g/dL (12.2-16.2); Mean Corpuscular Hemoglobin 28.7 pg (28.0-32.0); Mean Corpuscular Volume 88.0 fL (80.0-100.0)
[2025-06-11 08:12] LABS: Chloride 96 mmol/L (98-107); Sodium 136 mmol/L (136-145)
[2025-06-11 08:16] LABS: BUN/Creatinine Ratio 17.4 (10.0-20.0)
[2025-06-11 08:20] LABS: Blood Urea Nitrogen 33 mg/dL (9-23); Glucose 147 mg/dL (74-106)
--- NOTE | 2025-06-11 08:32 | DVH ---
EXAM: XY CHEST PORTABLE HISTORY: SOB COMPARISON: XY CHEST PORTABLE on DOS: 06/08/25, XY CHEST PORTABLE on DOS: 04/26/25, XY CHEST XRAY 1 VIEW on DOS: 04/26/25, XY CHEST PORTABLE on DOS: 04/25/25, XY CHEST PORTABLE on DOS: 01/23/25 TECHNIQUE: Portable upright AP view of the chest was performed. FINDINGS: There are diffuse bilateral interstitial opacities, most dense in the lung bases. The hemidiaphragms are partially obscured. No pneumothorax. The heart is enlarged. IMPRESSION: Cardiomegaly and diffuse bilateral interstitial opacities likely due to florid pulmonary edema relate d to CHF, less likely pneumonia.
[2025-06-11] MEDS ORDERED: METOPROLOL TARTRATE 25 MG TAB PO ONE (11:00)
--- NOTE | 2025-06-11 11:06 | DVHINCON2 ---
Date Seen: Jun 11, 2025 Referring Physician MD Alison Reason for Consultation CHF History of Present Illness This is a 54-year-old female patient who presents to the emergency room with chief complaint of worsening shortness of breath for one day prior to emergency room arrival. Cardiology has been consulted at this time for CHF. Initial twelve lead electrocardiogram reveals normal sinus rhythm without any signifi cant ST segment changes. After reviewing monitor car operator, patient noted to go into episodes of atrial fibrillation with rapid ventricular response. At time of assessment, patient currently in normal sinus rhythm. Troponin levels have been negative.Significant medical history includes paroxysmal atrial fibrillation on amiodarone and Eliquis therapy, severe aortic insufficiency, s evere mitral insufficiency, moderate tricuspid regurgitation, hypertension, chronic kidney disease, COPD with O2 dependence, asthma, Crohn's disease, rheumatoid arthritis, fibromyalgia, history of endometrial cancer status post hysterectomy 20 years ago, depression, anxiety, and morbid obesity. The patient follows up with stock sheets cleaner inspector in the outpatient setting. Past Medical History Past medical history reviewed. No other significant than mentioned above. Past Surgical History TEEs x 3 Back surgery Total Hysterectomy Cholecystectomy Family History: Alcoholism G8 BROTHER G8 BROTHER G8 BROTHER G8 SISTER Diabetes mellitus G8 BROTHER Hypercholesterolemia Hypertension G8 MOTHER G8 FATHER G8 BROTHER G8 BROTHER G8 BROTHER 19 CHILD 19 CHILD 19 CHILD G8 SISTER G8 SISTER G8 SISTER G8 SISTER G8 SISTER G8 SISTER Family History Family history reviewed. Social History Patient has a 10 pack-year history, quit smoking in 2011 Denies any alcohol or illicit drug use Allergies: Coded Allergies: Erythromycin (Unverified Allergy, Severe, 01/19/25) Ondansetron (Unverified Allergy, Severe, hives, 06/09/25) Azithromycin (Verified Allergy, Unknown, 01/19/25) Home Meds Active Scripts Potassium Chloride (Potassium Chloride ER) 10 Meq Tab, 10 MEQ PO DAILY, #30 TAB Prov:MEENU LINDER MD 01/25/25 Furosemide (Furosemide) 40 Mg Tab, 1 TAB PO BID, #90 TAB Prov:MEENU LINDER MD 01/25/25 Apixaban Base (ELIQUIS) 5 Mg Tab, 5 MG PO BID, #90 TAB Prov:MEENU LINDER MD 06/13/24 Amiodarone Hcl (Amiodarone Hcl) 200 Mg Tab, 1 TAB PO DAILY, #30 TAB Prov:MEENU LINDER MD 06/13/24 Reported Medications Metoprolol Succinate (Metoprolol Succinate Er) 50 Mg Tab, 200 MG PO BID for 30 Days, MG 03/25/25 Alprazolam (Alprazolam) 0.5 Mg Tab, 1 TAB PO BID, #60 TAB 03/25/25 Lactobacillus (PROBIOTIC) Cap, 1 CAP PO DAILY for SUPPLEMENT, CAP 01/19/25 Cholecalciferol (VITAMIN D3) 2,000 Unit Tab, 1 TAB PO DAILY for SUPPLEMENT, #30 TAB 5 Refills 01/19/25 Tizanidine Hydrochloride (Zanaflex) 4 Mg Cap, 1 CAP PO QPM, #30 CAP 01/19/25 Prazosin Hcl (Minipres) 1 Mg Cp, 4 MG PO QPM for NIGHTMARES, CAP 01/19/25 Nystatin-Triamcinolone (Mycolog) 1 Applic Ap, 1 APPLIC TOP BID for FUNGAL RASH, #15 GRAMS 1 Refill 01/19/25 Ipratropium-Albuterol (Ipratropium [place]/Albut) 1 Susana Susana, 1 SUSANA IN Q4HP PRN for SHORTNESS OF BREATH, ML 01/19/25 Hydroxyzine Hcl (Hydroxyzine Hcl) 25 Mg Tab, 25 MG PO Q6HP PRN for N&V, MG 01/19/25 Estradiol (Estradiol) 1 Mg Tab, 1 MG PO DAILY for VAGINAL DRYNESS, MG 01/19/25 Doxepin Hcl (Doxepin Hcl) 25 Mg Cap, 3 CAP PO QPM for INSOMNIA, #30 CAP 1 Refill 01/19/25 Bisacodyl (BISACODYL) 10 Mg Sup, 10 MG RE NO BM FOR 3 DAYS for BOWEL MANAGEMENT, SUPP 01/19/25 Hyoscyamine Sulfate (Levsin) 0.125 Mg Tab, 1 TAB PO Q4HPRN PRN for increased secretions, #120 TAB 5 Refills 01/19/25 Sertraline Hcl (Sertraline Hcl) 100 Mg Tab, 2 TAB PO DAILY for PTSD, #90 TAB 1 Refill 01/19/25 Clonidine Hydrochloride (Clonidine Hcl) 0.1 Mg Tab, 0.1 MG PO BID for bp>150 for 30 Days, MG 01/19/25 Rosuvastatin Calcium (Crestor) 40 Mg Tab, 40 MG PO DAILY, TAB 06/12/24 Albuterol Sulfate (Albuterol Sulfate Hfa) 108 Mcg/Act Aer, 2.5 MG IN QID, AER 06/12/24 Pantoprazole Sodium Sesquihydr (Pantoprazole Sodium) 40 Mg Tab, 40 MG PO DAILY, TAB 06/12/24 Home Meds Home medications reviewed. Current Medications Current Medications Medications (Trade) Dose Ordered Sig/Bárbara Route PRN Reason Start Time Stop Time Status Last Admin Doxycycline Hyclate 100 ml @ 50 mls/hr Q12H IV 06/10/25 11:45 06/11/25 00:20 Acetaminophen/ Hydrocodone Bitart ([place] 5/325MG Tab) 1 tab Q6HPRN PRN PO MODERATE PAIN (4-6 PAIN SCALE) 06/11/25 00:15 06/11/25 00:40 Alprazolam (Xanax Tablet) 0.5 mg Q8HPRN PRN PO ANXIETY 06/11/25 00:15 06/11/25 00:39 Review of Systems Constitutional: No symptom reported Ears, Nose, & Throat: No symptom reported Eyes: No symptom reported Neurological: No symptoms reported Pulmonary/Respiratory: Shortness of breath Cardiovascular: No symptom reported Gastrointestinal: No symptom reported Genitourinary: No symptom reported Musculoskeletal: No symptom reported Skin: No symptom reported Psychiatric: No symptom reported Endocrine: No symptom reported Hematologic/Lymphatic: No symptom reported Vital Signs Vital Signs Date Time Temp Pulse Resp B/P (MAP) Pulse Ox O2 Delivery O2 Flow Rate FiO2 06/11/25 10:35 103 156/88 97 Facial BiPAP Mask 65 06/11/25 08:00 31 06/10/25 07:30 98.7 98.7 Physical Exam General Appearance: Cooperative. Severely short of breath during exam. Speaking in few word sentences. Pulmonary/Respiratory: Clear, bilateral breaths sounds. Patient currently on BiPAP Cardiovascular/Chest: Regular rate and rhythm. Peripheral Pulses: 2+ Radial (R). 2+ Radial (L). 2+ Pedal (R). 2+ Pedal (L) Abdominal Exam: Normal bowel sounds. Ankle Exam: Negative ankle edema Lower extremities: Negative lower extremity edema Neuro/Mental Status: A/OX4, coherent. Thoughts/Psych: Normal thought pattern. Appropriate mood and affect. Good judgment and insight. Appearance: No acute distress. Skin Exam: Normal inspection. Normal color. Warm and dry. Labs/Diagnostic Data Labs Test 06/11/25 07:21 06/11/25 06:40 06/10/25 03:51 06/09/25 16:55 Range/Units White Blood Count 14.4 #H 4.4-10.8 10^3/uL Red Blood Count 3.57 L 4.0-5.20 10^6/uL Hemoglobin 10.2 L 12.2-16.2 g/dL Hematocrit 31.4 L 36.0-46.0 % Mean Corpuscular Volume 88.0 80.0-100.0 fL Mean Corpuscular Hemoglobin 28.7 28.0-32.0 pg Mean Corpuscular Hemoglobin Concent 32.6 32.0-36.0 g/dL Red Cell Distribution Width 16.1 H 11.8-14.3 % Platelet Count 497 H 140-450 10^3/uL Mean Platelet Volume 9.3 6.9-10.8 fL Neutrophils (%) (Auto) 81.6 H 37.0-80.0 % Lymphocytes (%) (Auto) 13.7 10.0-50.0 % Monocytes (%) (Auto) 4.6 0.0-12.0 % Eosinophils (%) (Auto) 0.0 0.0-7.0 % Basophils (%) (Auto) 0.1 0.0-2.0 % Neutrophils # (Auto) 11.8 H 1.6-8.6 10 ^3/uL Lymphocytes # (Auto) 2.0 0.4-5.4 10 ^3/uL Monocytes # (Auto) 0.7 0-1.3 10 ^3/uL Eosinophils # (Auto) 0 0-0.8 10 ^3/uL Basophils # (Auto) 0 0-0.2 10 ^3/uL Nucleated Red Blood Cells 0.0 % Sodium Level 136 136-145 mmol/L Potassium Level 3.7 3.5-5.1 mmol/L Chloride Level 96 L 98-107 mmol/L Carbon Dioxide Level 25 20-31 mmol/L Anion Gap 15 5-15 Blood Urea Nitrogen 33 #H 9-23 mg/dL Creatinine 1.90 H 0.550-1.02 mg/dL Glomerular Filtration Rate Calc 31 >90 mL/min BUN/Creatinine Ratio 17.4 10.0-20.0 Serum Glucose 147 H 74-106 mg/dL Calcium Level 9.9 8.7-10.4 mg/dL Blood Gas Specimen Type Arterial Blood Gas Sample Site Right radial Blood Gas Patient Temperature 37.0 Arterial Blood Date Drawn [id number] Arterial Blood pH 7.399 7.350-7.450 Arterial Blood Partial Pressure CO2 42.3 32.0-45.0 mmHg Arterial Blood Partial Pressure O2 84.5 83.0-108.0 mmHg Arterial Blood HCO3 25.6 21.0-28.0 mmol/L Arterial Blood Oxygen Saturation 95.7 94.0-98.0 % Arterial Blood Base Excess 0.6 -2.0-3.0 mmol/L Arterial Blood Oxyhemoglobin 94.6 94.0-98.0 % Arterial Blood Carboxyhemoglobin 0.8 0.5-1.5 % Arterial Blood Methemoglobin 0.3 0.0-1.5 % Elfego Test Yes Blood Gas Total Hemoglobin 10.50 L 12.0-16.0 g/dL Blood Gas Set Respiration Rate 12.0 Blood Gas Modality Mask - bipap Blood Gas Spontaneous Rate 26 FiO2 % 65.0 Blood Gas EPAP 5 Blood Gas IPAP 12 Total Bilirubin 0.7 0.2-1.0 mg/dL Aspartate Amino Transferase (AST) 68 H 13-40 U/L Alanine Aminotransferase (ALT) 27 7-40 U/L Alkaline Phosphatase 70 46-116 U/L Total Protein 7.9 5.7-8.2 g/dL Albumin 4.3 3.2-4.8 g/dL Urine Color Colorless Yellow Urine Clarity Clear Clear Urine pH 5.5 5.0-9.0 Urine Specific [place] 1.007 1.001-1.035 Urine Protein Negative Negative Urine Ketones Negative Negative Urine Blood 2+ H Negative /uL Urine Nitrite Negative Negative Urine Bilirubin Negative Negative Urine Urobilinogen Normal Negative mg/dL Urine Leukocyte Esterase Negative Negative /uL Urine RBC 38 0 - 4 /hpf Urine Microscopic WBC 1 0-5 /HPF Urine Squamous Epithelial Cells Few <5 /hpf Urine Bacteria None seen None Seen /hpf Urine Glucose Normal Normal mg/dL Test 06/08/25 23:11 06/08/25 22:13 06/08/25 22:07 06/08/25 21:15 Range/Units Lactic Acid Level 1.5 0.4-2.0 mmol/L Troponin I High Sensitivity < 3 L </=34 ng/L Venous Blood pH 7.371 7.320-7.430 Venous Blood pCO2 at Patient Temp 38.8 38.0-54.0 mmHg Venous Blood pO2 at Patient Temp 46.3 23.0-48.0 mmHg Venous Blood HCO3 22.0 22.0-29.0 mmol/L Venous Blood Base Excess -2.9 L -2.0-3.0 mmol/L Prothrombin Time 11.2 9.3-11.8 sec Prothrombin Time INR 1.06 0.9-1.15 Activated Partial Thromboplast Time 29.7 24.5-34.5 SEC B-Type Natriuretic Peptide 392.00 0-100 pg/mL Microbiology Date/Time Source Procedure Growth Status 06/08/25 23:11 Blood Blood Culture - Preliminary NO GROWTH AFTER 48 HOURS OF INCUBATION. Resulted Assessment Chronic HFpEF, NYHA class IV Paroxysmal atrial fibrillation, stage III, now NSR (on amiodarone/Elqiuis therapy) Severe aortic valve and mitral valve insufficiency Acute hypoxic respiratory failure Asthma Chronic kidney disease Thyroid disease Prediabetes, newly diagnosed Morbid obesity Hx of tobacco use Plan/Recommendation We will continue with the following plan/recommendations (Dr. Serna): The patient underwent a transesophageal echocardiogram on 03/26/2025 which revealed an EF of 60% with severe aortic insufficiency and with moderate mitral insufficiency. Continue with Preload and afterload reduction. ([id number] Score 2 points, HAS-BLED Score 0 points): We will recommend to continue antiar rhythmic therapy with amiodarone, DOAC therapy with Eliquis, and beta-octavio for rate control . Patient has been referred as outpatient to cardiovascular surgery with Dr. Melo in [place] for aortic valve replacement with possible TAVR as well as possible mitral clip. She has seen stock sheets cleaner inspector in [place] one time and underwent a EBENEZER. The patient is scheduled to have a right and left heart catheterization later this month for TAVR workup. Thank you for allowing us to participate in this patient's care. Please call if you have any questions or concerns. Critical care time spent: 44 minutes This medical document was created using an electronic medical record system with voice recognition software and computerized dictation system. Although this document has been carefully reviewed, there might still be some phonetic and typographical errors. Occasional wrong-word or ``sound-alike substitutions may have occurred due to the inherent limitations of voice recognition software. These areas are purely typographical due to imperfections of the software programs and do not reflect any compromise in the patient's medical care. Please read the chart carefully and recognize, using context, where these substitutions have occurred. Plan discussed with: Patient NYHA Physical activity limitations: Class4(Severe)discomfort Date of Service: Jun 11, 2025 Billing Provider: SHALINI GUADARRAMA Cardiology Common Codes: [id number] INP/OBS CARE (High) Cardiology Consultation Codes: [id number] CONSULT <45MIN SHALINI GUADARRAMA Jun 11, 2025 11:06
--- NOTE | 2025-06-11 11:33 | ECG ---
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
--- NOTE | 2025-06-11 11:34 | ECG ---
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
[2025-06-11] MEDS: fentaNYL Drip 2500mCg/250mlNS 250 ML IV ONE (11:37)
[2025-06-11] MEDS: PROPOFOL 100 ML IV ONE (11:39)
--- NOTE | 2025-06-11 11:54 | DVHPN2 ---
Subjective The patient is seen and examined at bedside. Today the patient feel worse. Increased shortness for breath. The patient can not keep airway open despite on BiPAP Reviewed: Care Plan, H&P, Labs, Medications, Previous Orders, Radiology Changes from previous H/P or p: No Changes Objective Vitals Vital Signs Date Time Temp Pulse Resp B/P (MAP) Pulse Ox O2 Delivery O2 Flow Rate FiO2 06/11/25 10:35 103 156/88 97 Facial BiPAP Mask 65 06/11/25 08:00 31 06/10/25 07:30 98.7 98.7 Intake/Output Intake and Output 06/11/25 07:00 Intake Total 1050 ml Output Total 2400 ml Balance -1350 ml Intake Oral 800 ml IV Total 250 ml Output Urine Total 2400 ml General Appearance: Alert, severe distress HEENT: Atraumatic, PERRLA, EOMI, Mucous membr. moist/pink Neck: Supple Lungs: Other (Decreased breath sounds bilateral, rhonchi and crackles bilateral) Cardiovascular: Regular rate, Normal S1, Normal S2, No murmurs, Gallops, Rubs Abdomen: Normal bowel sounds, Soft, No tenderness Neuro: Cranial nerves 3-12 NL Lymph: Lymphadenopathy Medications Current Medications Medications Dose Ordered Sig/Bárbara Route Start Time Stop Time Status Last Admin Dose Admin Cefepime HCl 50 ml @ 12.5 mls/hr Q12HR IV 06/09/25 10:00 06/11/25 09:53 12.5 MLS/HR Apixaban 5 mg BID PO 06/09/25 10:00 06/10/25 21:22 5 MG Amiodarone HCl 200 mg Q12HR PO 06/09/25 10:00 06/10/25 21:22 200 MG Sertraline HCl 100 mg DAILY PO 06/09/25 10:00 06/10/25 10:23 100 MG Metoprolol Succinate 50 mg DAILY PO 06/09/25 10:00 06/10/25 10:23 50 MG Clonidine HCl 0.1 mg Q6HP PRN PO 06/09/25 01:00 Albuterol 2.5 mg Q6HPRN PRN NEB 06/09/25 01:00 06/10/25 18:54 2.5 MG Ipratropium [place] 0.5 mg Q6HPRN PRN NEB 06/09/25 01:00 06/10/25 18:54 0.5 MG Ondansetron HCl 4 mg Q4HP PRN IV 06/09/25 01:00 Cancel Acetaminophen 650 mg Q6HP PRN PO 06/09/25 01:00 06/10/25 20:15 650 MG Nitroglycerin 0.4 mg Q5MINP PRN SL 06/09/25 01:00 Morphine Sulfate 2 mg Q30M PRN IV 06/09/25 01:00 06/10/25 05:50 2 MG Methylprednisolone Sodium Succinate 40 mg BID IV 06/09/25 18:00 06/11/25 09:53 40 MG Furosemide 40 mg BIDD IV 06/09/25 18:00 06/11/25 05:34 40 MG Doxycycline Hyclate 100 ml @ 50 mls/hr Q12H IV 06/10/25 11:45 06/11/25 00:20 50 MLS/HR Acetaminophen/ Hydrocodone Bitart 1 tab Q6HPRN PRN PO 06/11/25 00:15 06/11/25 00:40 1 TAB Alprazolam 0.5 mg Q8HPRN PRN PO 06/11/25 00:15 06/11/25 00:39 0.5 MG Laboratory Results Laboratory Tests 06/11/25 07:21 Chemistry Test 06/11/25 07:21 Calcium Level 9.9 mg/dL (8.7-10.4) Urinalysis Test 06/09/25 16:55 Urine Color Colorless (Yellow) Urine Clarity Clear (Clear) Urine pH 5.5 (5.0-9.0) Urine Specific [place] 1.007 (1.001-1.035) Urine Protein Negative (Negative) Urine Ketones Negative (Negative) Urine Blood 2+ /uL (Negative) H Urine Nitrite Negative (Negative) Urine Bilirubin Negative (Negative) Urine Urobilinogen Normal mg/dL (Negative) Urine Leukocyte Esterase Negative /uL (Negative) Urine RBC 38 /hpf (0 - 4) Urine Microscopic WBC 1 /HPF (0-5) Urine Squamous Epithelial Cells Few /hpf (<5) Urine Bacteria None seen /hpf (None Seen) Urine Glucose Normal mg/dL (Normal) Blood Gas Results Test 06/11/25 06:40 Arterial Blood pH 7.399 (7.350-7.450) FiO2 % 65.0 Microbiology Microbiology Date/Time Source Procedure Growth Status 06/08/25 23:11 Blood Blood Culture - Preliminary NO GROWTH AFTER 48 HOURS OF INCUBATION. Resulted Labs and/or images reviewed: Labs reviewed by me Assessment/Plan Assessment/Plan Community-acquired pneumonia with Gram-positive pneumonia Acute hypoxic respiratory failure on BiPAP CHF with exacerbation COPD Leukocytosis Acute kidney injury Continuing current management. Continuing with IV Lasix. Appreciate veneer drier input. We will discuss with Dr. Luong to see if we need to intubate the patient. ABG reviewed and oxygen is normal. Patient is probably tired out because of her anxiety. Ativan had been given not really help her. Appreciate Cardiology input. We will monitor kidney function. Continuing IV antibiotics. Addendum the patient was intubated by veneer drier, Dr. Luong. Continuing sedation. We will upgrade the patient to ICU This medical document was created using an electronic medical record system with [employer] direct computerized dictation system. Although this document has been carefully reviewed, there may still be some phonetic and typographical errors. These areas are purely typographical due to imperfections of the software programs, and do not reflect any compromise in the patient's medical care. Plan discussed with: Patient My Orders Orders - CHAO HEATH MD Procedure Category Date Status Time * Cardiology Consult CONS 06/10/25 Transmitted 12:54 Date of Service: Jun 11, 2025 Billing Provider: CHAO HEATH MD Common Visit Codes: [id number] INP/OBS CARE(HIGH) CHAO HEATH MD Jun 11, 2025 11:54
[2025-06-11] MEDS: ETOMIDATE (2MG/ML) 20ML VIAL IV ONE ×2 (12:00→12:40)
[2025-06-11] MEDS: fentaNYL Drip 2500mCg/250mlNS 250 ML IV SCH (12:00)
[2025-06-11] MEDS: PROPOFOL 100 ML IV SCH (12:00)
[2025-06-11] MEDS: ROCURONIUM 10MG/ML 10ML VIAL IV ONE ×2 (12:00→12:41)
--- NOTE | 2025-06-11 12:34 | DVH ---
EXAM: XY CHEST PORTABLE Indication: POST INTUBATION Technique: Single frontal view of the chest was obtained Comparison: XY CHEST PORTABLE on DOS: 06/11/25, XY CHEST PORTABLE on DOS: 06/08/25, XY CHEST PORTABLE on DOS: 04/26/25, XY CHEST XRAY 1 VIEW on DOS: 04/26/25, XY CHEST PORTABLE on DOS: 04/25/25 FINDINGS: Lines and Tubes: Endotracheal tube projects 2.9 cm above the donna. Enteric tube tip projects over t he expected region of stomach. Lungs: Diffuse interstitial opacities. Pleura: No effusion. No pneumothorax. Cardiomediastinal contours: Unremarkable Bones: No acute osseous abnormality. IMPRESSION: Endotracheal and enteric tube in appropriate position.
--- NOTE | 2025-06-11 12:56 | DVH ---
EXAM: XY CHEST PORTABLE Indication: post central line placement Technique: Single frontal view of the chest was obtained Comparison: XY CHEST PORTABLE on DOS: 06/11/25, XY CHEST PORTABLE on DOS: 06/11/25, XY CHEST PORTABLE on DOS: 06/08/25, XY CHEST PORTABLE on DOS: 04/26/25, XY CHEST XRAY 1 VIEW on DOS: 04/26/25 FINDINGS: Lines and Tubes: Endotracheal tube projects 3.6 cm above the donna. Enteric tube tip projects over e xpected region stomach. Right internal jugular central venous catheter tip projects over the superior vena cava. Lungs: Pulmonary vascular congestion. Pleura: No effusion. No pneumothorax. Cardiomediastinal contours: Unremarkable Bones: No acute osseous abnormality. IMPRESSION: Pulmonary vascular congestion.
--- NOTE | 2025-06-11 13:44 | DVHINCON2 ---
Date of service: Jun 11, [address] Pili Rosas Reason for Consultation Acute respiratory failure History of Present Illness History Source: Patient, RN Notes, MD Notes Exam Limitations: Clinical condition HPI Patient is a 54-year old lady with a history of congestive heart failure and anxiety who presented with shortness of breath. Was seen in the emergency room where she was found to have increasing oxygen requirements and was started on bipap 12/5, 60%. She continue to have worsening respiratory failure and pulmonology was consulted to assist in management. Home Meds Active Scripts Potassium Chloride (Potassium Chloride ER) 10 Meq Tab, 10 MEQ PO DAILY, #30 TAB Prov:MEENU LINDER MD 01/25/25 Furosemide (Furosemide) 40 Mg Tab, 1 TAB PO BID, #90 TAB Prov:MEENU LINDER MD 01/25/25 Apixaban Base (ELIQUIS) 5 Mg Tab, 5 MG PO BID, #90 TAB Prov:MEENU LINDER MD 06/13/24 Amiodarone Hcl (Amiodarone Hcl) 200 Mg Tab, 1 TAB PO DAILY, #30 TAB Prov:MEENU LINDER MD 06/13/24 Reported Medications Metoprolol Succinate (Metoprolol Succinate Er) 50 Mg Tab, 200 MG PO BID for 30 Days, MG 03/25/25 Alprazolam (Alprazolam) 0.5 Mg Tab, 1 TAB PO BID, #60 TAB 03/25/25 Lactobacillus (PROBIOTIC) Cap, 1 CAP PO DAILY for SUPPLEMENT, CAP 01/19/25 Cholecalciferol (VITAMIN D3) 2,000 Unit Tab, 1 TAB PO DAILY for SUPPLEMENT, #30 TAB 5 Refills 01/19/25 Tizanidine Hydrochloride (Zanaflex) 4 Mg Cap, 1 CAP PO QPM, #30 CAP 01/19/25 Prazosin Hcl (Minipres) 1 Mg Cp, 4 MG PO QPM for NIGHTMARES, CAP 01/19/25 Nystatin-Triamcinolone (Mycolog) 1 Applic Ap, 1 APPLIC TOP BID for FUNGAL RASH, #15 GRAMS 1 Refill 01/19/25 Ipratropium-Albuterol (Ipratropium [place]/Albut) 1 Susana Susana, 1 SUSANA IN Q4HP PRN for SHORTNESS OF BREATH, ML 01/19/25 Hydroxyzine Hcl (Hydroxyzine Hcl) 25 Mg Tab, 25 MG PO Q6HP PRN for N&V, MG 01/19/25 Estradiol (Estradiol) 1 Mg Tab, 1 MG PO DAILY for VAGINAL DRYNESS, MG 01/19/25 Doxepin Hcl (Doxepin Hcl) 25 Mg Cap, 3 CAP PO QPM for INSOMNIA, #30 CAP 1 Refill 01/19/25 Bisacodyl (BISACODYL) 10 Mg Sup, 10 MG RE NO BM FOR 3 DAYS for BOWEL MANAGEMENT, SUPP 01/19/25 Hyoscyamine Sulfate (Levsin) 0.125 Mg Tab, 1 TAB PO Q4HPRN PRN for increased secretions, #120 TAB 5 Refills 01/19/25 Sertraline Hcl (Sertraline Hcl) 100 Mg Tab, 2 TAB PO DAILY for PTSD, #90 TAB 1 Refill 01/19/25 Clonidine Hydrochloride (Clonidine Hcl) 0.1 Mg Tab, 0.1 MG PO BID for bp>150 for 30 Days, MG 01/19/25 Rosuvastatin Calcium (Crestor) 40 Mg Tab, 40 MG PO DAILY, TAB 06/12/24 Albuterol Sulfate (Albuterol Sulfate Hfa) 108 Mcg/Act Aer, 2.5 MG IN QID, AER 06/12/24 Pantoprazole Sodium Sesquihydr (Pantoprazole Sodium) 40 Mg Tab, 40 MG PO DAILY, TAB 06/12/24 Past Medical History Cardiac: CHF Pulmonary: No pertinent Hx Central Nervous System: No pertinent Hx GI: No pertinent Hx Hemotology/Oncology: No pertinent Hx Hepatobiliary: No pertinent Hx Psychiatric: Anxiety Musculoskeletal: No pertinent Hx Rheumotologic: No pertinent Hx Infectious Disease: No peritnent Hx ENT: No pertinent Hx Renal/: No pertinent Hx Endocrine: No pertinent Hx Dermatology: No pertinent Hx Past Surgical History: No pertinent Hx Family History: Hypertension Patient Family History: Alcoholism G8 BROTHER G8 BROTHER G8 BROTHER G8 SISTER Diabetes mellitus G8 BROTHER Hypercholesterolemia Hypertension G8 MOTHER G8 FATHER G8 BROTHER G8 BROTHER G8 BROTHER 19 CHILD 19 CHILD 19 CHILD G8 SISTER G8 SISTER G8 SISTER G8 SISTER G8 SISTER G8 SISTER Smoker: No Hx (Negative) Alocohol: None Drugs: None Lives with: With family Domestic Violence: Neg Review of Systems Constitutional: No symptom reported Ears, Nose, & Throat: No symptom reported Eyes: No symptom reported Pulmonary/Respiratory: Dyspnea Cardiovascular: No symptom reported Gastrointestinal: No symptom reported Genitourinary: No symptom reported Musculoskeletal: No symptom reported Skin: No symptom reported Psychiatric: No symptom reported Endocrine: No symptom reported Hemotologic/Lymphatic: No symptom reported H&P Exam Vital Signs Vital Signs Date Time Temp Pulse Resp B/P (MAP) Pulse Ox O2 Delivery O2 Flow Rate FiO2 06/11/25 12:41 153/96 06/11/25 12:05 117 24 100 100 06/11/25 10:35 Facial BiPAP Mask 06/10/25 07:30 98.7 98.7 General Appeara: Well developed, Well nourished, Normal Appearance Head Exam: Normal inspection Neck Exam: Normal inspection, Non-tender, Normal alignment Eye Exam: bilateral eye Normal inspection, bilateral eye PERRL, bilateral eye EOMI Ear Exam: bilateral ear Auricle normal, bilateral ear Canal normal, bilateral ear TM normal Nasal Exam: Normal inspection Mouth: Normal Inspection Pulmonary/Respiratory: Decreased breath sounds Cardiovascular/Chest: Normal inspection Peripheral Pulses: 4+ Radial (R), 4+ Radial (L), 4+ Brachial (R), 4+ Brachial (L) Abdominal Exam: Normal bowel sounds Labs/Xrays Labs Test 06/11/25 07:21 06/11/25 06:40 06/10/25 03:51 06/09/25 16:55 Range/Units White Blood Count 14.4 #H 4.4-10.8 10^3/uL Red Blood Count 3.57 L 4.0-5.20 10^6/uL Hemoglobin 10.2 L 12.2-16.2 g/dL Hematocrit 31.4 L 36.0-46.0 % Mean Corpuscular Volume 88.0 80.0-100.0 fL Mean Corpuscular Hemoglobin 28.7 28.0-32.0 pg Mean Corpuscular Hemoglobin Concent 32.6 32.0-36.0 g/dL Red Cell Distribution Width 16.1 H 11.8-14.3 % Platelet Count 497 H 140-450 10^3/uL Mean Platelet Volume 9.3 6.9-10.8 fL Neutrophils (%) (Auto) 81.6 H 37.0-80.0 % Lymphocytes (%) (Auto) 13.7 10.0-50.0 % Monocytes (%) (Auto) 4.6 0.0-12.0 % Eosinophils (%) (Auto) 0.0 0.0-7.0 % Basophils (%) (Auto) 0.1 0.0-2.0 % Neutrophils # (Auto) 11.8 H 1.6-8.6 10 ^3/uL Lymphocytes # (Auto) 2.0 0.4-5.4 10 ^3/uL Monocytes # (Auto) 0.7 0-1.3 10 ^3/uL Eosinophils # (Auto) 0 0-0.8 10 ^3/uL Basophils # (Auto) 0 0-0.2 10 ^3/uL Nucleated Red Blood Cells 0.0 % Sodium Level 136 136-145 mmol/L Potassium Level 3.7 3.5-5.1 mmol/L Chloride Level 96 L 98-107 mmol/L Carbon Dioxide Level 25 20-31 mmol/L Anion Gap 15 5-15 Blood Urea Nitrogen 33 #H 9-23 mg/dL Creatinine 1.90 H 0.550-1.02 mg/dL Glomerular Filtration Rate Calc 31 >90 mL/min BUN/Creatinine Ratio 17.4 10.0-20.0 Serum Glucose 147 H 74-106 mg/dL Calcium Level 9.9 8.7-10.4 mg/dL Blood Gas Specimen Type Arterial Blood Gas Sample Site Right radial Blood Gas Patient Temperature 37.0 Arterial Blood Date Drawn [id number] Arterial Blood pH 7.399 7.350-7.450 Arterial Blood Partial Pressure CO2 42.3 32.0-45.0 mmHg Arterial Blood Partial Pressure O2 84.5 83.0-108.0 mmHg Arterial Blood HCO3 25.6 21.0-28.0 mmol/L Arterial Blood Oxygen Saturation 95.7 94.0-98.0 % Arterial Blood Base Excess 0.6 -2.0-3.0 mmol/L Arterial Blood Oxyhemoglobin 94.6 94.0-98.0 % Arterial Blood Carboxyhemoglobin 0.8 0.5-1.5 % Arterial Blood Methemoglobin 0.3 0.0-1.5 % Elfego Test Yes Blood Gas Total Hemoglobin 10.50 L 12.0-16.0 g/dL Blood Gas Set Respiration Rate 12.0 Blood Gas Modality Mask - bipap Blood Gas Spontaneous Rate 26 FiO2 % 65.0 Blood Gas EPAP 5 Blood Gas IPAP 12 Total Bilirubin 0.7 0.2-1.0 mg/dL Aspartate Amino Transferase (AST) 68 H 13-40 U/L Alanine Aminotransferase (ALT) 27 7-40 U/L Alkaline Phosphatase 70 46-116 U/L Total Protein 7.9 5.7-8.2 g/dL Albumin 4.3 3.2-4.8 g/dL Urine Color Colorless Yellow Urine Clarity Clear Clear Urine pH 5.5 5.0-9.0 Urine Specific [place] 1.007 1.001-1.035 Urine Protein Negative Negative Urine Ketones Negative Negative Urine Blood 2+ H Negative /uL Urine Nitrite Negative Negative Urine Bilirubin Negative Negative Urine Urobilinogen Normal Negative mg/dL Urine Leukocyte Esterase Negative Negative /uL Urine RBC 38 0 - 4 /hpf Urine Microscopic WBC 1 0-5 /HPF Urine Squamous Epithelial Cells Few <5 /hpf Urine Bacteria None seen None Seen /hpf Urine Glucose Normal Normal mg/dL Test 06/08/25 23:11 06/08/25 22:13 06/08/25 22:07 06/08/25 21:15 Range/Units Lactic Acid Level 1.5 0.4-2.0 mmol/L Troponin I High Sensitivity < 3 L </=34 ng/L Venous Blood pH 7.371 7.320-7.430 Venous Blood pCO2 at Patient Temp 38.8 38.0-54.0 mmHg Venous Blood pO2 at Patient Temp 46.3 23.0-48.0 mmHg Venous Blood HCO3 22.0 22.0-29.0 mmol/L Venous Blood Base Excess -2.9 L -2.0-3.0 mmol/L Prothrombin Time 11.2 9.3-11.8 sec Prothrombin Time INR 1.06 0.9-1.15 Activated Partial Thromboplast Time 29.7 24.5-34.5 SEC B-Type Natriuretic Peptide 392.00 0-100 pg/mL Microbiology Date/Time Source Procedure Growth Status 06/08/25 23:11 Blood Blood Culture - Preliminary NO GROWTH AFTER 48 HOURS OF INCUBATION. Resulted Assessment/Plan Plan Impression Acute hypoxemic respiratory failure Acute pulmonary edema Pneumonia CHF Patient seen and examined in the ER Events Remained on bipap overnight, continued to decline Patient was intubated for worsening respiratory failure Placed on mechanical ventilation Initial vent settings RR 24, tidal volume 400%, PEEP 10, FiO2 100% Right IJ central line was placed for intravenous access See separate note for procedure in detail Labs and imaging reviewed Chest x-ray shows pulmonary congestion ABG reviewed Management Vent support Titrate to maintain sats 90% or above Sedation for vent synchrony Antibiotics Bronchodilators Monitor renal function Monitor electrolytes Supplement as needed Pressors as needed for hemodynamic support To maintain a mean arterial pressure of 65 mmHg DVT prophylaxis Critical care time 35 minutes Plan discussed with: Other (Rn) GAI HAYWARD MD Jun 11, 2025 13:44
--- NOTE | 2025-06-11 13:58 | DVHNC2 ---
Procedure - Procedure- Endotracheal intubation Indication- Airway protection Procedure Consent was obtained and timeout performed per protocol. The patient was placed in the supine position, preoxygenated with 100% FiO2 and pre-medicated with Etomidate 20mg and Rocuronium 50mg IV. Glidescope was used to visualize the vocal cords, size 8.0 [place] endotracheal tube was passed through the cords into the trachea and secured at 22cm at the lip. Correct placement of the tube was confirmed by auscultation of breath sounds bilaterally and positive capnography. Chest x-ray ordered GIA HAYWARD MD Jun 11, 2025 13:58
--- NOTE | 2025-06-11 13:59 | DVHNC2 ---
Procedure - Procedure- Right IJ central line placement ultrasound guided Indication- Intravenous access Procedure in detail Consent was obtained and timeout performed per protocol. The patient was placed in the supine position and the right IJ vein was localized using ultrasound SonoSite. ChloraPrep was used to clean the operative field, sterile drapes used to cover the area and local analgesia Lidocaine 1% 3 cc. Triple-lumen catheter was inserted over the wire with direct ultrasound guidance in the right IJ vein. The wire was removed, catheter flushed with normal saline and secured with 2 sutures. Sterile dressing applied. No complications. GIA HAYWARD MD Jun 11, 2025 13:59
[2025-06-11 14:06] LABS: Base Excess 0.5 mmol/L (-2.0-3.0)
[2025-06-11] MEDS: MIDAZOLAM DRIP 50 mg/50mL 50 ML IV ONE (14:34)
[2025-06-11] MEDS: MIDAZOLAM DRIP 50 mg/50mL 50 ML IV SCH (14:45)
--- NOTE | 2025-06-11 23:54 | DVHINCON2 ---
Date Seen: Jun 11, 2025 Referring Physician MD Alison Reason for Consultation CHF History of Present Illness This is a 54-year-old female with a past medical history of paroxysmal atrial fibrillation on amiodarone and Eliquis therapy, severe aortic insufficiency, severe mitral insufficiency, moderate tricuspid regurgitation, hypertension, chronic kidney disease, COPD with O2 dependence, asthma, Crohn's disease, rheumatoid arthritis, fibromyalgia, history of endometrial cancer status post hysterectomy 20 years ago, depression, anxiety, and morbid obesity who presents to the ED with complaints of worsening shortness of breath for one day prior to emergency room arrival. Cardiology has been consulted at this time for CHF. Initial twelve lead electrocardiogram reveals normal sinus rhythm without any si gnificant ST segment changes. After reviewing equipment monitor phototypesetting, patient noted to go into episodes of atrial fibrillation with rapid ventricular response. At time of assessment, patient currently in normal sinus rhythm. Troponin levels have been negative. The patient follows up with pulley man in the outpatient setting. WBC 14.4, BUN 33, PROFESSIONAL CASTER 1.90. Chest x-ray shows pulmonary vascular congestion. Patient was admitted to the hospital. I am asked to consult on this patient. Past Medical History Past medical history reviewed. No other significant than mentioned above. Past Surgical History TEEs x 3 Back surgery Total Hysterectomy Cholecystectomy Family History: Alcoholism G8 BROTHER G8 BROTHER G8 BROTHER G8 SISTER Diabetes mellitus G8 BROTHER Hypercholesterolemia Hypertension G8 MOTHER G8 FATHER G8 BROTHER G8 BROTHER G8 BROTHER 19 CHILD 19 CHILD 19 CHILD G8 SISTER G8 SISTER G8 SISTER G8 SISTER G8 SISTER G8 SISTER Allergies: Coded Allergies: Erythromycin (Unverified Allergy, Severe, 01/19/25) Ondansetron (Unverified Allergy, Severe, hives, 06/09/25) Azithromycin (Verified Allergy, Unknown, 01/19/25) Home Meds Active Scripts Potassium Chloride (Potassium Chloride ER) 10 Meq Tab, 10 MEQ PO DAILY, #30 TAB Prov:MEENU LINDER MD 01/25/25 Furosemide (Furosemide) 40 Mg Tab, 1 TAB PO BID, #90 TAB Prov:MEENU LINDER MD 01/25/25 Apixaban Base (ELIQUIS) 5 Mg Tab, 5 MG PO BID, #90 TAB Prov:MEENU LINDER MD 06/13/24 Amiodarone Hcl (Amiodarone Hcl) 200 Mg Tab, 1 TAB PO DAILY, #30 TAB Prov:MEENU LINDER MD 06/13/24 Reported Medications Metoprolol Succinate (Metoprolol Succinate Er) 50 Mg Tab, 200 MG PO BID for 30 Days, MG 03/25/25 Alprazolam (Alprazolam) 0.5 Mg Tab, 1 TAB PO BID, #60 TAB 03/25/25 Lactobacillus (PROBIOTIC) Cap, 1 CAP PO DAILY for SUPPLEMENT, CAP 01/19/25 Cholecalciferol (VITAMIN D3) 2,000 Unit Tab, 1 TAB PO DAILY for SUPPLEMENT, #30 TAB 5 Refills 01/19/25 Tizanidine Hydrochloride (Zanaflex) 4 Mg Cap, 1 CAP PO QPM, #30 CAP 01/19/25 Prazosin Hcl (Minipres) 1 Mg Cp, 4 MG PO QPM for NIGHTMARES, CAP 01/19/25 Nystatin-Triamcinolone (Mycolog) 1 Applic Ap, 1 APPLIC TOP BID for FUNGAL RASH, #15 GRAMS 1 Refill 01/19/25 Ipratropium-Albuterol (Ipratropium [place]/Albut) 1 Susana Susana, 1 SUSANA IN Q4HP PRN for SHORTNESS OF BREATH, ML 01/19/25 Hydroxyzine Hcl (Hydroxyzine Hcl) 25 Mg Tab, 25 MG PO Q6HP PRN for N&V, MG 01/19/25 Estradiol (Estradiol) 1 Mg Tab, 1 MG PO DAILY for VAGINAL DRYNESS, MG 01/19/25 Doxepin Hcl (Doxepin Hcl) 25 Mg Cap, 3 CAP PO QPM for INSOMNIA, #30 CAP 1 Refill 01/19/25 Bisacodyl (BISACODYL) 10 Mg Sup, 10 MG RE NO BM FOR 3 DAYS for BOWEL MANAGEMENT, SUPP 01/19/25 Hyoscyamine Sulfate (Levsin) 0.125 Mg Tab, 1 TAB PO Q4HPRN PRN for increased secretions, #120 TAB 5 Refills 01/19/25 Sertraline Hcl (Sertraline Hcl) 100 Mg Tab, 2 TAB PO DAILY for PTSD, #90 TAB 1 Refill 01/19/25 Clonidine Hydrochloride (Clonidine Hcl) 0.1 Mg Tab, 0.1 MG PO BID for bp>150 for 30 Days, MG 01/19/25 Rosuvastatin Calcium (Crestor) 40 Mg Tab, 40 MG PO DAILY, TAB 06/12/24 Albuterol Sulfate (Albuterol Sulfate Hfa) 108 Mcg/Act Aer, 2.5 MG IN QID, AER 06/12/24 Pantoprazole Sodium Sesquihydr (Pantoprazole Sodium) 40 Mg Tab, 40 MG PO DAILY, TAB 06/12/24 Current Medications Current Medications Medications (Trade) Dose Ordered Sig/Bárbara Route PRN Reason Start Time Stop Time Status Last Admin Acetaminophen/ Hydrocodone Bitart ([place] 5/325MG Tab) 1 tab Q6HPRN PRN PO MODERATE PAIN (4-6 PAIN SCALE) 06/11/25 00:15 06/11/25 00:40 Alprazolam (Xanax Tablet) 0.5 mg Q8HPRN PRN PO ANXIETY 06/11/25 00:15 06/11/25 00:39 Propofol 100 ml @ 2.16 mls/hr Q24H IV 06/11/25 12:00 06/11/25 12:00 Fentanyl Citrate 250 ml @ 2.5 mls/hr Q24H IV 06/11/25 12:00 06/11/25 12:00 Midazolam HCl 50 ml @ 1 mls/hr Q24H IV 06/11/25 14:45 06/11/25 14:45 Review of Systems Constitutional: No symptom reported Ears, Nose, & Throat: No symptom reported Eyes: No symptom reported Neurological: No symptoms reported Pulmonary/Respiratory: Shortness of breath Cardiovascular: No symptom reported Gastrointestinal: No symptom reported Genitourinary: No symptom reported Musculoskeletal: No symptom reported Skin: No symptom reported Psychiatric: No symptom reported Endocrine: No symptom reported Hematologic/Lymphatic: No symptom reported Vital Signs Vital Signs Date Time Temp Pulse Resp B/P (MAP) Pulse Ox O2 Delivery O2 Flow Rate FiO2 06/11/25 14:45 139/79 06/11/25 14:25 99 16 99 Mechanical Ventilator+ 70 70 06/11/25 12:30 98.2 98.2 Physical Exam GENERAL: Alert and oriented x 3. Mild distress, on BIPAP. EYES: PERRL, EOMI. Anicteric. HENT: Moist mucous membranes. LUNGS: Decreased breath sounds. CARDIOVASCULAR: Regular rate and rhythm. ABDOMEN: Soft, nontender and nondistended. EXTREMITIES: No edema. NEUROLOGIC: No focal neurological deficits. SKIN: Warm, dry. Labs/Diagnostic Data Labs Test 06/11/25 14:00 06/11/25 07:21 06/11/25 06:40 06/10/25 03:51 Range/Units Blood Gas Specimen Type Arterial Blood Gas Sample Site Right radial Blood Gas Patient Temperature 37.0 Arterial Blood Date Drawn [id number] Arterial Blood pH 7.359 7.350-7.450 Arterial Blood Partial Pressure CO2 47.7 H 32.0-45.0 mmHg Arterial Blood Partial Pressure O2 480.4 *H 83.0-108.0 mmHg Arterial Blood HCO3 26.3 21.0-28.0 mmol/L Arterial Blood Oxygen Saturation 99.5 H 94.0-98.0 % Arterial Blood Base Excess 0.5 -2.0-3.0 mmol/L Arterial Blood Oxyhemoglobin 99.0 H 94.0-98.0 % Arterial Blood Carboxyhemoglobin 0.3 L 0.5-1.5 % Arterial Blood Methemoglobin 0.2 0.0-1.5 % Elfego Test Modified Blood Gas Total Hemoglobin 10.60 L 12.0-16.0 g/dL Blood Gas Set Respiration Rate 24.0 Blood Gas Modality Vent - ac FiO2 % 100.0 Blood Gas Tidal Volume 450.0 Blood Gas PEEP or CPAP 10.0 Blood Gas Critical Value Read Back Yes Blood Gas Notified Whom Dr. robert galloway Blood Gas Notified Time [id number] Blood Gas Notified By Rt blessing rush White Blood Count 14.4 #H 4.4-10.8 10^3/uL Red Blood Count 3.57 L 4.0-5.20 10^6/uL Hemoglobin 10.2 L 12.2-16.2 g/dL Hematocrit 31.4 L 36.0-46.0 % Mean Corpuscular Volume 88.0 80.0-100.0 fL Mean Corpuscular Hemoglobin 28.7 28.0-32.0 pg Mean Corpuscular Hemoglobin Concent 32.6 32.0-36.0 g/dL Red Cell Distribution Width 16.1 H 11.8-14.3 % Platelet Count 497 H 140-450 10^3/uL Mean Platelet Volume 9.3 6.9-10.8 fL Neutrophils (%) (Auto) 81.6 H 37.0-80.0 % Lymphocytes (%) (Auto) 13.7 10.0-50.0 % Monocytes (%) (Auto) 4.6 0.0-12.0 % Eosinophils (%) (Auto) 0.0 0.0-7.0 % Basophils (%) (Auto) 0.1 0.0-2.0 % Neutrophils # (Auto) 11.8 H 1.6-8.6 10 ^3/uL Lymphocytes # (Auto) 2.0 0.4-5.4 10 ^3/uL Monocytes # (Auto) 0.7 0-1.3 10 ^3/uL Eosinophils # (Auto) 0 0-0.8 10 ^3/uL Basophils # (Auto) 0 0-0.2 10 ^3/uL Nucleated Red Blood Cells 0.0 % Sodium Level 136 136-145 mmol/L Potassium Level 3.7 3.5-5.1 mmol/L Chloride Level 96 L 98-107 mmol/L Carbon Dioxide Level 25 20-31 mmol/L Anion Gap 15 5-15 Blood Urea Nitrogen 33 #H 9-23 mg/dL Creatinine 1.90 H 0.550-1.02 mg/dL Glomerular Filtration Rate Calc 31 >90 mL/min BUN/Creatinine Ratio 17.4 10.0-20.0 Serum Glucose 147 H 74-106 mg/dL Calcium Level 9.9 8.7-10.4 mg/dL Blood Gas Spontaneous Rate 26 Blood Gas EPAP 5 Blood Gas IPAP 12 Total Bilirubin 0.7 0.2-1.0 mg/dL Aspartate Amino Transferase (AST) 68 H 13-40 U/L Alanine Aminotransferase (ALT) 27 7-40 U/L Alkaline Phosphatase 70 46-116 U/L Total Protein 7.9 5.7-8.2 g/dL Albumin 4.3 3.2-4.8 g/dL Test 06/09/25 16:55 06/08/25 23:11 06/08/25 22:13 06/08/25 22:07 Range/Units Urine Color Colorless Yellow Urine Clarity Clear Clear Urine pH 5.5 5.0-9.0 Urine Specific [place] 1.007 1.001-1.035 Urine Protein Negative Negative Urine Ketones Negative Negative Urine Blood 2+ H Negative /uL Urine Nitrite Negative Negative Urine Bilirubin Negative Negative Urine Urobilinogen Normal Negative mg/dL Urine Leukocyte Esterase Negative Negative /uL Urine RBC 38 0 - 4 /hpf Urine Microscopic WBC 1 0-5 /HPF Urine Squamous Epithelial Cells Few <5 /hpf Urine Bacteria None seen None Seen /hpf Urine Glucose Normal Normal mg/dL Lactic Acid Level 1.5 0.4-2.0 mmol/L Troponin I High Sensitivity < 3 L </=34 ng/L Venous Blood pH 7.371 7.320-7.430 Venous Blood pCO2 at Patient Temp 38.8 38.0-54.0 mmHg Venous Blood pO2 at Patient Temp 46.3 23.0-48.0 mmHg Venous Blood HCO3 22.0 22.0-29.0 mmol/L Venous Blood Base Excess -2.9 L -2.0-3.0 mmol/L Test 06/08/25 21:15 Range/Units Prothrombin Time 11.2 9.3-11.8 sec Prothrombin Time INR 1.06 0.9-1.15 Activated Partial Thromboplast Time 29.7 24.5-34.5 SEC B-Type Natriuretic Peptide 392.00 0-100 pg/mL Microbiology Date/Time Source Procedure Growth Status 06/11/25 11:54 Trachea Gram Stain - Final Resulted 06/11/25 11:54 Trachea Respiratory Culture Pending Resulted 06/08/25 23:11 Blood Blood Culture - Preliminary NO GROWTH AFTER 48 HOURS OF INCUBATION. Resulted Assessment Chronic HFpEF, NYHA class IV. Paroxysmal atrial fibrillation, stage III, now NSR (on amiodarone/Elqiuis therapy). Severe aortic valve and mitral valve insufficiency. Acute hypoxic respiratory failure. Asthma. Chronic kidney disease. Thyroid disease. Prediabetes, newly diagnosed. Morbid obesity. History of tobacco use. Plan/Recommendation I agree with your ongoing assessment and care of plan. Patient has been seen by Latanya Moran NP on my behalf, her and I discussed the plan with the patient. The patient underwent a transesophageal echocardiogram on 03/26/2025 which revealed an EF of 60% with severe aortic insufficiency and with moderate mitral insufficiency. Continue with Preload and afterload reduction. ([id number] Score 2 points, HAS-BLED Score 0 points): We will recommend to continue antiarrhythmic therapy with amiodarone, DOAC the rapy with Eliquis, and beta-octavio for rate control . Patient has been referred as outpatient to cardiovascular surgery with Dr. Melo in [place] for aortic valve replacement with possible TAVR as well as possible mitral clip. She has seen pulley man in [place] one time and underwent a EBENEZER. The patient is scheduled to have a right and left heart catheterization later this month for TAVR workup. Additional plan as per the hospital course. Plan discussed with: Patient NYHA Physical activity limitations: Class4(Severe)discomfort Date of Service: Jun 11, 2025 Billing Provider: URBANO TRUONG MD Cardiology Common Codes: 78169-HBEUCFW INP/OBS CARE (High) Cardiology Consultation Codes: 98264-[id number] CONSULT <45MIN URBANO TRUONG MD Jun 11, 2025 16:04
[2025-06-12] VITALS (116 sets, daily range): BP systolic 95–143; BP diastolic 45–73; PULSE 67–155; RESP 24; TEMP 97.5–98.6; O2SAT 35–100
[2025-06-12 03:50] LABS: Hematocrit 26.9 % (36.0-46.0); Hemoglobin 8.7 g/dL (12.2-16.2); Mean Corpuscular Hemoglobin 27.8 pg (28.0-32.0); Mean Corpuscular Volume 86.1 fL (80.0-100.0); Nucleated Red Blood Cells % 0.1 %
[2025-06-12 04:55] LABS: Chloride 100 mmol/L (98-107); Potassium 3.5 mmol/L (3.5-5.1); Sodium 138 mmol/L (136-145)
[2025-06-12 04:56] LABS: Anion Gap 14 (5-15); Calcium 9.6 mg/dL (8.7-10.4); Carbon Dioxide 24 mmol/L (20-31)
[2025-06-12 05:01] LABS: BUN/Creatinine Ratio 22.7 (10.0-20.0)
[2025-06-12 05:07] LABS: Blood Urea Nitrogen 46 mg/dL (9-23); Glucose 139 mg/dL (74-106)
[2025-06-12 08:20] LABS: Base Excess 0.5 mmol/L (-2.0-3.0)
[2025-06-12] MEDS: POTASSIUM CHL 20MEQ/100ML 100 ML IV ONE (13:46)
--- NOTE | 2025-06-12 13:54 | DVHPN2 ---
Progress Note - Dictate Date Seen: Jun 12, 2025 Medical Necessity Reason Pt with a Central, PICC or Fol: Yes The following are medically ne: Central Line vital signs Vital Sign Date Time Temp Pulse Resp B/P (MAP) Pulse Ox O2 Delivery O2 Flow Rate FiO2 06/12/25 13:22 70 24 102/55 (71) 100 40 06/12/25 12:00 98.5 98.5 06/12/25 11:50 Mechanical Ventilator+ Total Intake and Output 06/11/25 06/11/25 06/12/25 15:00 23:00 07:00 Intake Total 67.4 ml 373.8 ml 533.8 ml Output Total 1250 ml 700 ml Balance 67.4 ml -876.2 ml -166.2 ml medications Current Medications Medications Dose Ordered Sig/Bárbara Route Start Time Stop Time Status Last Admin Dose Admin Cefepime HCl 50 ml @ 12.5 mls/hr Q12HR IV 06/09/25 10:00 06/12/25 07:52 12.5 MLS/HR Apixaban 5 mg BID PO 06/09/25 10:00 06/12/25 07:53 5 MG Amiodarone HCl 200 mg Q12HR PO 06/09/25 10:00 06/12/25 07:52 200 MG Sertraline HCl 100 mg DAILY PO 06/09/25 10:00 06/12/25 07:52 100 MG Metoprolol Succinate 50 mg DAILY PO 06/09/25 10:00 06/10/25 10:23 50 MG Clonidine HCl 0.1 mg Q6HP PRN PO 06/09/25 01:00 Albuterol 2.5 mg Q6HPRN PRN NEB 06/09/25 01:00 06/10/25 18:54 2.5 MG Ipratropium [place] 0.5 mg Q6HPRN PRN NEB 06/09/25 01:00 06/10/25 18:54 0.5 MG Ondansetron HCl 4 mg Q4HP PRN IV 06/09/25 01:00 Cancel Acetaminophen 650 mg Q6HP PRN PO 06/09/25 01:00 06/10/25 20:15 650 MG Nitroglycerin 0.4 mg Q5MINP PRN SL 06/09/25 01:00 Morphine Sulfate 2 mg Q30M PRN IV 06/09/25 01:00 06/10/25 05:50 2 MG Methylprednisolone Sodium Succinate 40 mg BID IV 06/09/25 18:00 06/12/25 07:53 40 MG Furosemide 40 mg BIDD IV 06/09/25 18:00 06/12/25 05:48 40 MG Doxycycline Hyclate 100 ml @ 50 mls/hr Q12H IV 06/10/25 11:45 06/12/25 10:44 50 MLS/HR Acetaminophen/ Hydrocodone Bitart 1 tab Q6HPRN PRN PO 06/11/25 00:15 06/11/25 00:40 1 TAB Alprazolam 0.5 mg Q8HPRN PRN PO 06/11/25 00:15 06/11/25 00:39 0.5 MG Propofol 100 ml @ 2.16 mls/hr Q24H IV 06/11/25 12:00 06/12/25 11:00 21.6 MLS/HR Fentanyl Citrate 250 ml @ 2.5 mls/hr Q24H IV 06/11/25 12:00 06/12/25 10:46 20 MLS/HR Midazolam HCl 50 ml @ 1 mls/hr Q24H IV 06/11/25 14:45 06/12/25 03:53 2 MLS/HR laboratory and microbiology Laboratory Tests 06/12/25 03:25 Test 06/12/25 03:25 Range/Units Serum Glucose 139 H 74-106 mg/dL Assessment/Plan Impression Acute hypoxemic respiratory failure Acute pulmonary edema Pneumonia CHF Patient seen and examined in ICU Events On mechanical ventilation S/p intubation PEEP 10, FiO2 100% Labs and imaging reviewed ABG reviewed Management Vent support Titrate to maintain sats 90% or above Sedation for vent synchrony Continue antibiotics F/u cultures Bronchodilators Diurese Monitor renal function Monitor electrolytes Supplement as needed Pressors as needed for hemodynamic support To maintain a mean arterial pressure of 65 mmHg Obtain chest x-ray in AM DVT prophylaxis Critical care time 35 minutes Plan discussed with: Other (Rn) Capillary Refill: < 3 seconds GIA HAYWARD MD Jun 12, 2025 13:54
--- NOTE | 2025-06-12 15:30 | DVHPN2 ---
Subjective The patient is seen and examined at bedside. Intubated, on vent Reviewed: Care Plan, H&P, Labs, Medications, Previous Orders, Radiology Changes from previous H/P or p: No Changes Objective Vitals Vital Signs Date Time Temp Pulse Resp B/P (MAP) Pulse Ox O2 Delivery O2 Flow Rate FiO2 06/12/25 15:15 70 24 108/59 (75) 100 06/12/25 13:53 Mechanical Ventilator+ 40 40 06/12/25 12:00 98.5 98.5 Intake/Output Intake and Output 06/12/25 07:00 Intake Total 975.0 ml Output Total 1950 ml Balance -975.0 ml Intake Oral 60 ml IV Total 915.0 ml Output Urine Total 1950 ml Stool Total 0 ml General Appearance: severe distress, Other (Intubated, on vent) HEENT: Atraumatic, Other (ETT tube intact) Neck: Supple Lungs: Other (Decreased breath sounds bilateral, rhonchi and crackles bilateral) Cardiovascular: Regular rate, Normal S1, Normal S2, No murmurs, Gallops, Rubs Abdomen: Normal bowel sounds, Soft, No tenderness Medications Current Medications Medications Dose Ordered Sig/Bárbara Route Start Time Stop Time Status Last Admin Dose Admin Cefepime HCl 50 ml @ 12.5 mls/hr Q12HR IV 06/09/25 10:00 06/12/25 07:52 12.5 MLS/HR Apixaban 5 mg BID PO 06/09/25 10:00 06/12/25 07:53 5 MG Amiodarone HCl 200 mg Q12HR PO 06/09/25 10:00 06/12/25 07:52 200 MG Sertraline HCl 100 mg DAILY PO 06/09/25 10:00 06/12/25 07:52 100 MG Metoprolol Succinate 50 mg DAILY PO 06/09/25 10:00 06/10/25 10:23 50 MG Clonidine HCl 0.1 mg Q6HP PRN PO 06/09/25 01:00 Albuterol 2.5 mg Q6HPRN PRN NEB 06/09/25 01:00 06/10/25 18:54 2.5 MG Ipratropium [place] 0.5 mg Q6HPRN PRN NEB 06/09/25 01:00 06/10/25 18:54 0.5 MG Ondansetron HCl 4 mg Q4HP PRN IV 06/09/25 01:00 Cancel Acetaminophen 650 mg Q6HP PRN PO 06/09/25 01:00 06/10/25 20:15 650 MG Nitroglycerin 0.4 mg Q5MINP PRN SL 06/09/25 01:00 Morphine Sulfate 2 mg Q30M PRN IV 06/09/25 01:00 06/10/25 05:50 2 MG Methylprednisolone Sodium Succinate 40 mg BID IV 06/09/25 18:00 06/12/25 07:53 40 MG Furosemide 40 mg BIDD IV 06/09/25 18:00 06/12/25 05:48 40 MG Doxycycline Hyclate 100 ml @ 50 mls/hr Q12H IV 06/10/25 11:45 06/12/25 10:44 50 MLS/HR Acetaminophen/ Hydrocodone Bitart 1 tab Q6HPRN PRN PO 06/11/25 00:15 06/11/25 00:40 1 TAB Alprazolam 0.5 mg Q8HPRN PRN PO 06/11/25 00:15 06/11/25 00:39 0.5 MG Propofol 100 ml @ 2.16 mls/hr Q24H IV 06/11/25 12:00 06/12/25 11:00 21.6 MLS/HR Fentanyl Citrate 250 ml @ 2.5 mls/hr Q24H IV 06/11/25 12:00 06/12/25 10:46 20 MLS/HR Midazolam HCl 50 ml @ 1 mls/hr Q24H IV 06/11/25 14:45 06/12/25 03:53 2 MLS/HR Laboratory Results Laboratory Tests 06/12/25 03:25 Chemistry Test 06/12/25 03:25 Calcium Level 9.6 mg/dL (8.7-10.4) Urinalysis Test 06/09/25 16:55 Urine Color Colorless (Yellow) Urine Clarity Clear (Clear) Urine pH 5.5 (5.0-9.0) Urine Specific [place] 1.007 (1.001-1.035) Urine Protein Negative (Negative) Urine Ketones Negative (Negative) Urine Blood 2+ /uL (Negative) H Urine Nitrite Negative (Negative) Urine Bilirubin Negative (Negative) Urine Urobilinogen Normal mg/dL (Negative) Urine Leukocyte Esterase Negative /uL (Negative) Urine RBC 38 /hpf (0 - 4) Urine Microscopic WBC 1 /HPF (0-5) Urine Squamous Epithelial Cells Few /hpf (<5) Urine Bacteria None seen /hpf (None Seen) Urine Glucose Normal mg/dL (Normal) Blood Gas Results Test 06/12/25 07:58 Arterial Blood pH 7.436 (7.350-7.450) FiO2 % 40.0 Microbiology Microbiology Date/Time Source Procedure Growth Status 06/11/25 14:25 Nose MRSA Screen - Final Complete 06/08/25 23:11 Blood Blood Culture - Preliminary NO GROWTH AFTER 72 HOURS OF INCUBATION. Resulted Labs and/or images reviewed: Labs reviewed by me Assessment/Plan Assessment/Plan Community-acquired pneumonia with Gram-positive pneumonia Acute hypoxic respiratory failure status post intubation CHF with exacerbation COPD Leukocytosis Acute kidney injury Continuing current management. Continuing with IV Lasix. Continuing IV antibiotic. Continuing with ventilation support. Hopefully can wean the patient off soon. Continuing to monitor kidney function. Critical care spent for this case is 35 minutes This medical document was created using an electronic medical record system with [employer] direct computerized dictation system. Although this document has been carefully reviewed, there may still be some phonetic and typographical errors. These areas are purely typographical due to imperfections of the software programs, and do not reflect any compromise in the patient's medical care. Plan discussed with: Other (RN) My Orders Orders - CHAO HEATH MD Procedure Category Date Status Time * Wound Consult CONS 06/11/25 Transmitted Date of Service: Jun 12, 2025 Billing Provider: CHAO HEATH MD Common Visit Codes: [id number] CARE 30-74 MIN CHAO HEATH MD Jun 12, 2025 15:30
--- NOTE | 2025-06-12 17:04 | DVHINCON2 ---
Date of service: Jun 12, 2025 Referring Physician Hospitalist Reason for Consultation Acute kidney injury History of Present Illness 54-year-old female past medical history of chronic kidney disease stage IIIA, hypertension, COPD, aortic valve insufficiency recently hospitalized for bacteremia and sepsis patient returns to the hospital complaining of weakness and shortness of breath. Initially admitted in the ER was placed on BiPAP for presumptive diagnosis of pneumonia. Nephrology was consulted on hospital day three after worsening renal function and intubation. Past Medical History Chronic heart failure preserved ejection fraction COPD on home oxygen Chronic respiratory failure Severe aortic insufficiency Moderate MR/moderate TR Anemia, normocytic due to CKD Hypokalemia, hypomagnesemia Undiagnosed thyroid disorder Secondary hyperparathyroidism Allergies: Coded Allergies: Erythromycin (Unverified Allergy, Severe, 01/19/25) Ondansetron (Unverified Allergy, Severe, hives, 06/09/25) Azithromycin (Verified Allergy, Unknown, 01/19/25) Home Meds Active Scripts Potassium Chloride (Potassium Chloride ER) 10 Meq Tab, 10 MEQ PO DAILY, #30 TAB Prov:MEENU LINDER MD 01/25/25 Furosemide (Furosemide) 40 Mg Tab, 1 TAB PO BID, #90 TAB Prov:MEENU LINDER MD 01/25/25 Apixaban Base (ELIQUIS) 5 Mg Tab, 5 MG PO BID, #90 TAB Prov:MEENU LINDER MD 06/13/24 Amiodarone Hcl (Amiodarone Hcl) 200 Mg Tab, 1 TAB PO DAILY, #30 TAB Prov:MEENU LINDER MD 06/13/24 Reported Medications Metoprolol Succinate (Metoprolol Succinate Er) 50 Mg Tab, 200 MG PO BID for 30 Days, MG 03/25/25 Alprazolam (Alprazolam) 0.5 Mg Tab, 1 TAB PO BID, #60 TAB 03/25/25 Lactobacillus (PROBIOTIC) Cap, 1 CAP PO DAILY for SUPPLEMENT, CAP 01/19/25 Cholecalciferol (VITAMIN D3) 2,000 Unit Tab, 1 TAB PO DAILY for SUPPLEMENT, #30 TAB 5 Refills 01/19/25 Tizanidine Hydrochloride (Zanaflex) 4 Mg Cap, 1 CAP PO QPM, #30 CAP 01/19/25 Prazosin Hcl (Minipres) 1 Mg Cp, 4 MG PO QPM for NIGHTMARES, CAP 01/19/25 Nystatin-Triamcinolone (Mycolog) 1 Applic Ap, 1 APPLIC TOP BID for FUNGAL RASH, #15 GRAMS 1 Refill 01/19/25 Ipratropium-Albuterol (Ipratropium [place]/Albut) 1 Susana Susana, 1 SUSANA IN Q4HP PRN for SHORTNESS OF BREATH, ML 01/19/25 Hydroxyzine Hcl (Hydroxyzine Hcl) 25 Mg Tab, 25 MG PO Q6HP PRN for N&V, MG 01/19/25 Estradiol (Estradiol) 1 Mg Tab, 1 MG PO DAILY for VAGINAL DRYNESS, MG 01/19/25 Doxepin Hcl (Doxepin Hcl) 25 Mg Cap, 3 CAP PO QPM for INSOMNIA, #30 CAP 1 Refill 01/19/25 Bisacodyl (BISACODYL) 10 Mg Sup, 10 MG RE NO BM FOR 3 DAYS for BOWEL MANAGEMENT, SUPP 01/19/25 Hyoscyamine Sulfate (Levsin) 0.125 Mg Tab, 1 TAB PO Q4HPRN PRN for increased secretions, #120 TAB 5 Refills 01/19/25 Sertraline Hcl (Sertraline Hcl) 100 Mg Tab, 2 TAB PO DAILY for PTSD, #90 TAB 1 Refill 01/19/25 Clonidine Hydrochloride (Clonidine Hcl) 0.1 Mg Tab, 0.1 MG PO BID for bp>150 for 30 Days, MG 01/19/25 Rosuvastatin Calcium (Crestor) 40 Mg Tab, 40 MG PO DAILY, TAB 06/12/24 Albuterol Sulfate (Albuterol Sulfate Hfa) 108 Mcg/Act Aer, 2.5 MG IN QID, AER 06/12/24 Pantoprazole Sodium Sesquihydr (Pantoprazole Sodium) 40 Mg Tab, 40 MG PO DAILY, TAB 06/12/24 Family History: Alcoholism G8 BROTHER G8 BROTHER G8 BROTHER G8 SISTER Diabetes mellitus G8 BROTHER Hypercholesterolemia Hypertension G8 MOTHER G8 FATHER G8 BROTHER G8 BROTHER G8 BROTHER 19 CHILD 19 CHILD 19 CHILD G8 SISTER G8 SISTER G8 SISTER G8 SISTER G8 SISTER G8 SISTER Review of Systems Can not obtain due to critical illness H&P Exam Vital Signs/I&O Vital Sign Date Time Temp Pulse Resp B/P (MAP) Pulse Ox O2 Delivery O2 Flow Rate FiO2 06/12/25 16:50 108/57 06/12/25 16:30 72 24 100 06/12/25 16:09 35 06/12/25 16:02 Mechanical Ventilator+ 06/12/25 16:00 98.0 98.0 Intake and Output 06/11/25 06/12/25 19:00 07:00 Intake Total 241.8 ml 733.2 ml Output Total 1250 ml 700 ml Balance -1008.2 ml 33.2 ml Intake Oral 60 ml IV Total 241.8 ml 673.2 ml Output Urine Total 1250 ml 700 ml Stool Total 0 ml Physical Exam Middle-aged female Intubated Stated Not on pressors Abdomen soft Positive murmur No pitting edema Engel catheter has yellow urine Labs/Diagnostic Data Labs/Diagnostic Data Laboratory Tests Test 06/12/25 07:58 06/12/25 03:25 06/11/25 14:00 06/11/25 07:21 Range/Units Blood Gas Specimen Type Arterial Arterial Blood Gas Sample Site Right radial Right radial Blood Gas Patient Temperature 37.0 37.0 Arterial Blood Date Drawn [id number] Arterial Blood pH 7.436 7.359 7.350-7.450 Arterial Blood Partial Pressure CO2 37.5 47.7 H 32.0-45.0 mmHg Arterial Blood Partial Pressure O2 110.6 H 480.4 *H 83.0-108.0 mmHg Arterial Blood HCO3 24.7 26.3 21.0-28.0 mmol/L Arterial Blood Oxygen Saturation 98.2 H 99.5 H 94.0-98.0 % Arterial Blood Base Excess 0.5 0.5 -2.0-3.0 mmol/L Arterial Blood Oxyhemoglobin 96.9 99.0 H 94.0-98.0 % Arterial Blood Carboxyhemoglobin 1.0 0.3 L 0.5-1.5 % Arterial Blood Methemoglobin 0.3 0.2 0.0-1.5 % Elfego Test Yes Modified Blood Gas Total Hemoglobin 8.40 L 10.60 L 12.0-16.0 g/dL Blood Gas Set Respiration Rate 24.0 24.0 Blood Gas Modality Vent - ac Vent - ac FiO2 % 40.0 100.0 Blood Gas Tidal Volume 450.0 450.0 Blood Gas PEEP or CPAP 10.0 10.0 White Blood Count 7.9 # 14.4 #H 4.4-10.8 10^3/uL Red Blood Count 3.12 L 3.57 L 4.0-5.20 10^6/uL Hemoglobin 8.7 L 10.2 L 12.2-16.2 g/dL Hematocrit 26.9 #L 31.4 L 36.0-46.0 % Mean Corpuscular Volume 86.1 88.0 80.0-100.0 fL Mean Corpuscular Hemoglobin 27.8 L 28.7 28.0-32.0 pg Mean Corpuscular Hemoglobin Concent 32.3 32.6 32.0-36.0 g/dL Red Cell Distribution Width 16.1 H 16.1 H 11.8-14.3 % Platelet Count 376 497 H 140-450 10^3/uL Mean Platelet Volume 9.4 9.3 6.9-10.8 fL Neutrophils (%) (Auto) 84.9 H 81.6 H 37.0-80.0 % Lymphocytes (%) (Auto) 11.3 13.7 10.0-50.0 % Monocytes (%) (Auto) 3.5 4.6 0.0-12.0 % Eosinophils (%) (Auto) 0.1 0.0 0.0-7.0 % Basophils (%) (Auto) 0.2 0.1 0.0-2.0 % Neutrophils # (Auto) 6.7 11.8 H 1.6-8.6 10 ^3/uL Lymphocytes # (Auto) 0.9 2.0 0.4-5.4 10 ^3/uL Monocytes # (Auto) 0.3 0.7 0-1.3 10 ^3/uL Eosinophils # (Auto) 0 0 0-0.8 10 ^3/uL Basophils # (Auto) 0 0 0-0.2 10 ^3/uL Nucleated Red Blood Cells 0.1 0.0 % Sodium Level 138 136 136-145 mmol/L Potassium Level 3.5 3.7 3.5-5.1 mmol/L Chloride Level 100 96 L 98-107 mmol/L Carbon Dioxide Level 24 25 20-31 mmol/L Anion Gap 14 15 5-15 Blood Urea Nitrogen 46 #H 33 #H 9-23 mg/dL Creatinine 2.03 H 1.90 H 0.550-1.02 mg/dL Glomerular Filtration Rate Calc 29 31 >90 mL/min BUN/Creatinine Ratio 22.7 H 17.4 10.0-20.0 Serum Glucose 139 H 147 H 74-106 mg/dL Calcium Level 9.6 9.9 8.7-10.4 mg/dL Blood Gas Critical Value Read Back Yes Blood Gas Notified Whom Dr. robert galloway Blood Gas Notified Time [id number] Blood Gas Notified By Rt blessing Pack 06/11/25 06:40 06/10/25 03:51 06/09/25 16:55 06/09/25 06:45 Range/Units Blood Gas Specimen Type Arterial Arterial Blood Gas Sample Site Right radial Left radial Blood Gas Patient Temperature 37.0 37.0 Arterial Blood Date Drawn [id number] Arterial Blood pH 7.399 7.376 7.350-7.450 Arterial Blood Partial Pressure CO2 42.3 40.3 32.0-45.0 mmHg Arterial Blood Partial Pressure O2 84.5 60.9 L 83.0-108.0 mmHg Arterial Blood HCO3 25.6 23.1 21.0-28.0 mmol/L Arterial Blood Oxygen Saturation 95.7 88.3 L 94.0-98.0 % Arterial Blood Base Excess 0.6 -1.9 -2.0-3.0 mmol/L Arterial Blood Oxyhemoglobin 94.6 86.9 L 94.0-98.0 % Arterial Blood Carboxyhemoglobin 0.8 0.9 0.5-1.5 % Arterial Blood Methemoglobin 0.3 0.7 0.0-1.5 % Elfego Test Yes Yes Blood Gas Total Hemoglobin 10.50 L 10.00 L 12.0-16.0 g/dL Blood Gas Set Respiration Rate 12.0 12.0 Blood Gas Modality Mask - bipap Mask - bipap Blood Gas Spontaneous Rate 26 FiO2 % 65.0 50.0 Blood Gas EPAP 5 5 Blood Gas IPAP 12 12 White Blood Count 20.5 #H 4.4-10.8 10^3/uL Red Blood Count 3.48 L 4.0-5.20 10^6/uL Hemoglobin 9.8 L 12.2-16.2 g/dL Hematocrit 30.7 L 36.0-46.0 % Mean Corpuscular Volume 88.2 80.0-100.0 fL Mean Corpuscular Hemoglobin 28.0 28.0-32.0 pg Mean Corpuscular Hemoglobin Concent 31.7 L 32.0-36.0 g/dL Red Cell Distribution Width 16.3 H 11.8-14.3 % Platelet Count 415 140-450 10^3/uL Mean Platelet Volume 10.0 6.9-10.8 fL Neutrophils (%) (Auto) 84.8 H 37.0-80.0 % Lymphocytes (%) (Auto) 11.3 10.0-50.0 % Monocytes (%) (Auto) 3.3 0.0-12.0 % Eosinophils (%) (Auto) 0.1 0.0-7.0 % Basophils (%) (Auto) 0.5 0.0-2.0 % Neutrophils # (Auto) 17.4 H 1.6-8.6 10 ^3/uL Lymphocytes # (Auto) 2.3 0.4-5.4 10 ^3/uL Monocytes # (Auto) 0.7 0-1.3 10 ^3/uL Eosinophils # (Auto) 0 0-0.8 10 ^3/uL Basophils # (Auto) 0.1 0-0.2 10 ^3/uL Nucleated Red Blood Cells 0.1 % Sodium Level 136 136-145 mmol/L Potassium Level 4.2 3.5-5.1 mmol/L Chloride Level 100 98-107 mmol/L Carbon Dioxide Level 23 20-31 mmol/L Anion Gap 13 5-15 Blood Urea Nitrogen 21 9-23 mg/dL Creatinine 1.69 H 0.550-1.02 mg/dL Glomerular Filtration Rate Calc 36 >90 mL/min BUN/Creatinine Ratio 12.4 10.0-20.0 Serum Glucose 132 H 74-106 mg/dL Calcium Level 9.8 8.7-10.4 mg/dL Total Bilirubin 0.7 0.2-1.0 mg/dL Aspartate Amino Transferase (AST) 68 H 13-40 U/L Alanine Aminotransferase (ALT) 27 7-40 U/L Alkaline Phosphatase 70 46-116 U/L Total Protein 7.9 5.7-8.2 g/dL Albumin 4.3 3.2-4.8 g/dL Urine Color Colorless Yellow Urine Clarity Clear Clear Urine pH 5.5 5.0-9.0 Urine Specific [place] 1.007 1.001-1.035 Urine Protein Negative Negative Urine Ketones Negative Negative Urine Blood 2+ H Negative /uL Urine Nitrite Negative Negative Urine Bilirubin Negative Negative Urine Urobilinogen Normal Negative mg/dL Urine Leukocyte Esterase Negative Negative /uL Urine RBC 38 0 - 4 /hpf Urine Microscopic WBC 1 0-5 /HPF Urine Squamous Epithelial Cells Few <5 /hpf Urine Bacteria None seen None Seen /hpf Urine Glucose Normal Normal mg/dL Test 06/08/25 23:11 06/08/25 22:13 06/08/25 22:07 06/08/25 21:15 Range/Units Lactic Acid Level 1.5 0.4-2.0 mmol/L Troponin I High Sensitivity < 3 L < 3 L </=34 ng/L Blood Gas Specimen Type Venous Blood Gas Sample Site Vbg - n/a Blood Gas Patient Temperature 37.0 Arterial Blood Date Drawn [id number] Elfego Test Modified Venous Blood pH 7.371 7.320-7.430 Venous Blood pCO2 at Patient Temp 38.8 38.0-54.0 mmHg Venous Blood pO2 at Patient Temp 46.3 23.0-48.0 mmHg Venous Blood HCO3 22.0 22.0-29.0 mmol/L Venous Blood Base Excess -2.9 L -2.0-3.0 mmol/L Blood Gas Modality Mask - bipap FiO2 % 60.0 Blood Gas EPAP 5 Blood Gas IPAP 12 White Blood Count 15.5 H 4.4-10.8 10^3/uL Red Blood Count 3.22 L 4.0-5.20 10^6/uL Hemoglobin 9.0 L 12.2-16.2 g/dL Hematocrit 28.5 L 36.0-46.0 % Mean Corpuscular Volume 88.6 80.0-100.0 fL Mean Corpuscular Hemoglobin 27.9 L 28.0-32.0 pg Mean Corpuscular Hemoglobin Concent 31.4 L 32.0-36.0 g/dL Red Cell Distribution Width 16.0 H 11.8-14.3 % Platelet Count 336 140-450 10^3/uL Mean Platelet Volume 9.4 6.9-10.8 fL Neutrophils (%) (Auto) 78.8 37.0-80.0 % Lymphocytes (%) (Auto) 14.3 10.0-50.0 % Monocytes (%) (Auto) 4.8 0.0-12.0 % Eosinophils (%) (Auto) 1.3 0.0-7.0 % Basophils (%) (Auto) 0.8 0.0-2.0 % Neutrophils # (Auto) 12.2 H 1.6-8.6 10 ^3/uL Lymphocytes # (Auto) 2.2 0.4-5.4 10 ^3/uL Monocytes # (Auto) 0.7 0-1.3 10 ^3/uL Eosinophils # (Auto) 0.2 0-0.8 10 ^3/uL Basophils # (Auto) 0.1 0-0.2 10 ^3/uL Nucleated Red Blood Cells 0.0 % Prothrombin Time 11.2 9.3-11.8 sec Prothrombin Time INR 1.06 0.9-1.15 Activated Partial Thromboplast Time 29.7 24.5-34.5 SEC Sodium Level 140 136-145 mmol/L Potassium Level 4.1 3.5-5.1 mmol/L Chloride Level 105 98-107 mmol/L Carbon Dioxide Level 25 20-31 mmol/L Anion Gap 10 5-15 Blood Urea Nitrogen 15 9-23 mg/dL Creatinine 1.78 H 0.550-1.02 mg/dL Glomerular Filtration Rate Calc 34 >90 mL/min BUN/Creatinine Ratio 8.4 L 10.0-20.0 Serum Glucose 115 H 74-106 mg/dL Calcium Level 9.1 8.7-10.4 mg/dL B-Type Natriuretic Peptide 392.00 0-100 pg/mL Microbiology Date/Time Source Procedure Growth Status 06/11/25 14:25 Nose MRSA Screen - Final Complete Assessment 54-year-old female past medical history of chronic kidney disease and recent admission for sepsis due to bacteremia presents to the hospital complaining of shortness of breath and developed respiratory failure in the setting of pneumonia. Acute kidney injury on chronic kidney disease stage IIIA Dr[facility] Septic shock secondary to pneumonia Respiratory failure History of severe aortic valve insufficiency, mitral valve insufficiency and tricuspid regurg Congestive heart failure Anemia chronic kidney disease Recommend pressors to keep mean arterial pressure greater than 65 Continue diuretics Strict Is&Os Antibiotics for presumed pneumonia Obtain iron TIBC and ferritin Recommend blood transfusion to maintain hemoglobin greater than eight given significant cardiac kidney disease Guarded prognosis rest of care as per medical team critical care time 32mins total care time 55mins Plan discussed with: Other (nurse) TIM MORALES MD Jun 12, 2025 17:04
--- NOTE | 2025-06-12 23:05 | DVHPN2 ---
Progress Note - Dictate Date Seen: Jun 12, 2025 Medical Necessity Reason Pt with a Central, PICC or Fol: Yes The following are medically ne: Central Line Subjective Patient was seen and evaluated in follow up in the ICU. Patient is intubated and sedated on ventilator. 35% FiO2. HGB 8.7, HCT 26.9, BUN 46, GEARMAN 2.03. Chest x- ray shows pulmonary vascular congestion. Prelim blood cultures are negative for growth. vital signs Vital Sign Date Time Temp Pulse Resp B/P (MAP) Pulse Ox O2 Delivery O2 Flow Rate FiO2 06/12/25 22:09 71 24 117/60 (79) 100 35 06/12/25 20:00 Mechanical Ventilator+ 06/12/25 20:00 98.6 98.6 Total Intake and Output 06/11/25 06/11/25 06/12/25 15:00 23:00 07:00 Intake Total 67.4 ml 373.8 ml 533.8 ml Output Total 1250 ml 700 ml Balance 67.4 ml -876.2 ml -166.2 ml medications Current Medications Medications Dose Ordered Sig/Bárbara Route Start Time Stop Time Status Last Admin Dose Admin Cefepime HCl 50 ml @ 12.5 mls/hr Q12HR IV 06/09/25 10:00 06/12/25 21:46 12.5 MLS/HR Apixaban 5 mg BID PO 06/09/25 10:00 06/12/25 21:46 5 MG Amiodarone HCl 200 mg Q12HR PO 06/09/25 10:00 06/12/25 21:46 200 MG Sertraline HCl 100 mg DAILY PO 06/09/25 10:00 06/12/25 07:52 100 MG Metoprolol Succinate 50 mg DAILY PO 06/09/25 10:00 06/10/25 10:23 50 MG Clonidine HCl 0.1 mg Q6HP PRN PO 06/09/25 01:00 Albuterol 2.5 mg Q6HPRN PRN NEB 06/09/25 01:00 06/10/25 18:54 2.5 MG Ipratropium [place] 0.5 mg Q6HPRN PRN NEB 06/09/25 01:00 06/10/25 18:54 0.5 MG Ondansetron HCl 4 mg Q4HP PRN IV 06/09/25 01:00 Cancel Acetaminophen 650 mg Q6HP PRN PO 06/09/25 01:00 06/10/25 20:15 650 MG Nitroglycerin 0.4 mg Q5MINP PRN SL 06/09/25 01:00 Morphine Sulfate 2 mg Q30M PRN IV 06/09/25 01:00 06/10/25 05:50 2 MG Methylprednisolone Sodium Succinate 40 mg BID IV 06/09/25 18:00 06/12/25 21:46 40 MG Furosemide 40 mg BIDD IV 06/09/25 18:00 06/12/25 16:50 40 MG Doxycycline Hyclate 100 ml @ 50 mls/hr Q12H IV 06/10/25 11:45 06/12/25 10:44 50 MLS/HR Acetaminophen/ Hydrocodone Bitart 1 tab Q6HPRN PRN PO 06/11/25 00:15 06/11/25 00:40 1 TAB Alprazolam 0.5 mg Q8HPRN PRN PO 06/11/25 00:15 06/11/25 00:39 0.5 MG Propofol 100 ml @ 2.16 mls/hr Q24H IV 06/11/25 12:00 06/12/25 21:19 21.6 MLS/HR Fentanyl Citrate 250 ml @ 2.5 mls/hr Q24H IV 06/11/25 12:00 06/12/25 10:46 20 MLS/HR Midazolam HCl 50 ml @ 1 mls/hr Q24H IV 06/11/25 14:45 06/12/25 03:53 2 MLS/HR objective GENERAL: Ill appearing, intubated on ventilator. EYES: PERRL, EOMI. Anicteric. HENT: Moist mucous membranes. LUNGS: Decreased breath sounds. CARDIOVASCULAR: Regular rate and rhythm. ABDOMEN: Soft, nontender and nondistended. EXTREMITIES: No edema. NEUROLOGIC: No focal neurological deficits. SKIN: Warm, dry. laboratory and microbiology Laboratory Tests 06/12/25 03:25 Test 06/12/25 03:25 Range/Units Serum Glucose 139 H 74-106 mg/dL Problem List Chronic HFpEF, NYHA class IV. Paroxysmal atrial fibrillation, stage III, now NSR (on amiodarone/Elqiuis therapy). Severe aortic valve and mitral valve insufficiency. Acute hypoxic respiratory failure. Asthma. Chronic kidney disease. Thyroid disease. Prediabetes, newly diagnosed. Morbid obesity. History of tobacco use. Assessment/Plan Continued all current supportive medical care. Morphine and [place] for pain management. Amiodarone. Eliquis. IV antibiotics as ordered. Clonidine. Diuretics with Lasix. Metoprolol. Additional plan as per the hospital course. Critical care time of 45 minutes provided to include time spent evaluation of patient at bedside, when appropriate patient/family education for diagnosis, treatment plan, review of pertinent medical information and discussion of care with specialty providers and PCP. Mechanical ventilator parameters, treatment and adjustments have personally been reviewed by me and treatment plan by merry go round operator has also been reviewed. Dietary Evaluation Review Comments: 1) If patient remains NPO > 7 days, consider EN/TPN to meet at least 75% of estimated daily needs 2) If gut is preferred, consider Nepro @ 25 mL/hr goal rate as tolerated. Flush with 200 mL free H2O Q6H. TF regimen will provide 1080 kcals, 49g Pro, and 1236 mL free H2O per 24 hrs. TF regimen will meet ~ 92% estimated energy needs and 52% estimated protein needs. 3) Advance to 60g CCHO renal cardiac diet when medically feasible, pending ST approval 4) Refer to outpatient RD/CDCES for weight management 5) Follow-up with cardiology, pulmonology, or nephrology 6) Continue to monitor I&O, labs, and skin integrity Expected Outcomes/Goals: 1) patient to receive nutritional support within 7 days of NPO status 2) labs to improve 3) diet to advance 4) f/u in 2-3 days Plan discussed with: Other Capillary Refill: < 3 seconds URBANO TRUONG MD Jun 12, 2025 22:41
[2025-06-13] VITALS (116 sets, daily range): BP systolic 93–167; BP diastolic 50–81; PULSE 58–122; RESP 24; TEMP 98.3–98.7; O2SAT 35–100
[2025-06-13 04:16] LABS: Hemoglobin 8.4 g/dL (12.2-16.2); Mean Corpuscular Hemoglobin 28.5 pg (28.0-32.0)
[2025-06-13 04:21] LABS: Hematocrit 25.4 % (36.0-46.0); Mean Corpuscular Volume 86.2 fL (80.0-100.0); Nucleated Red Blood Cells % 0.1 %
[2025-06-13 04:26] LABS: Chloride 102 mmol/L (98-107); Potassium 3.8 mmol/L (3.5-5.1); Sodium 139 mmol/L (136-145)
[2025-06-13 04:27] LABS: Anion Gap 14 (5-15); Calcium 9.5 mg/dL (8.7-10.4); Carbon Dioxide 23 mmol/L (20-31)
[2025-06-13 04:32] LABS: BUN/Creatinine Ratio 28.3 (10.0-20.0); Magnesium 2.0 mg/dL (1.6-2.6); Total Iron Binding Capacity 319.0 ug/dL (250-425)
[2025-06-13 04:45] LABS: Blood Urea Nitrogen 69 mg/dL (9-23); Glucose 174 mg/dL (74-106); Iron 27.0 ug/dL (50-170)
--- NOTE | 2025-06-13 05:44 | DVH ---
CHEST RADIOGRAPH Indication: pneumonia Technique: Single frontal view of the chest was obtained COMPARISON: XY CHEST PORTABLE on DOS: 06/11/25, XY CHEST PORTABLE on DOS: 06/11/25, XY CHEST PORTABLE on DOS: 06/11/25, XY CHEST PORTABLE on DOS: 06/08/25, XR CHEST 2 VIEW on DOS: 05/28/25 FINDINGS: Lines and Tubes: Unchanged. Lungs: Interval resolution of pulmonary vascular congestion. No evidence of focal consolidation. Pleura: No effusion. No pneumothorax. Cardiomediastinal contours: Unremarkable Bones: Unremarkable IMPRESSION: 1. Interval resolution of pulmonary vascular congestion. 2. Lines and tubes unchanged.
[2025-06-13 08:53] LABS: Base Excess -3.9 mmol/L (-2.0-3.0)
--- NOTE | 2025-06-13 11:13 | DVHPN2 ---
Subjective The patient is seen and examined at bedside. Intubated, on vent Reviewed: Care Plan, H&P, Labs, Medications, Previous Orders, Radiology Changes from previous H/P or p: No Changes Objective Vitals Vital Signs Date Time Temp Pulse Resp B/P (MAP) Pulse Ox O2 Delivery O2 Flow Rate FiO2 06/13/25 10:16 110 24 112/70 (84) 100 06/13/25 10:04 35 06/13/25 09:43 Mechanical Ventilator+ 06/13/25 07:45 98.3 98.3 Intake/Output Intake and Output 06/13/25 07:00 Intake Total 1617.30 ml Output Total 1100 ml Balance 517.30 ml Intake Oral 200 ml IV Total 1417.30 ml Output Urine Total 1100 ml General Appearance: severe distress, Other (Intubated, on vent) HEENT: Atraumatic, Other (ETT tube intact) Neck: Supple Lungs: Other (Decreased breath sounds bilateral, rhonchi and crackles bilateral) Cardiovascular: Regular rate, Normal S1, Normal S2, No murmurs, Gallops, Rubs Abdomen: Normal bowel sounds, Soft, No tenderness Medications Current Medications Medications Dose Ordered Sig/Bárbara Route Start Time Stop Time Status Last Admin Dose Admin Cefepime HCl 50 ml @ 12.5 mls/hr Q12HR IV 06/09/25 10:00 06/13/25 08:05 12.5 MLS/HR Apixaban 5 mg BID PO 06/09/25 10:00 06/13/25 08:04 5 MG Amiodarone HCl 200 mg Q12HR PO 06/09/25 10:00 06/13/25 08:05 200 MG Sertraline HCl 100 mg DAILY PO 06/09/25 10:00 06/13/25 08:10 100 MG Metoprolol Succinate 50 mg DAILY PO 06/09/25 10:00 06/13/25 08:12 50 MG Clonidine HCl 0.1 mg Q6HP PRN PO 06/09/25 01:00 Albuterol 2.5 mg Q6HPRN PRN NEB 06/09/25 01:00 06/10/25 18:54 2.5 MG Ipratropium [place] 0.5 mg Q6HPRN PRN NEB 06/09/25 01:00 06/10/25 18:54 0.5 MG Ondansetron HCl 4 mg Q4HP PRN IV 06/09/25 01:00 Cancel Acetaminophen 650 mg Q6HP PRN PO 06/09/25 01:00 06/10/25 20:15 650 MG Nitroglycerin 0.4 mg Q5MINP PRN SL 06/09/25 01:00 Morphine Sulfate 2 mg Q30M PRN IV 06/09/25 01:00 06/10/25 05:50 2 MG Methylprednisolone Sodium Succinate 40 mg BID IV 06/09/25 18:00 06/13/25 08:05 40 MG Furosemide 40 mg BIDD IV 06/09/25 18:00 06/13/25 06:34 40 MG Doxycycline Hyclate 100 ml @ 50 mls/hr Q12H IV 06/10/25 11:45 06/13/25 01:31 50 MLS/HR Acetaminophen/ Hydrocodone Bitart 1 tab Q6HPRN PRN PO 06/11/25 00:15 06/11/25 00:40 1 TAB Alprazolam 0.5 mg Q8HPRN PRN PO 06/11/25 00:15 06/11/25 00:39 0.5 MG Propofol 100 ml @ 2.16 mls/hr Q24H IV 06/11/25 12:00 06/13/25 07:13 12.96 MLS/HR Fentanyl Citrate 250 ml @ 2.5 mls/hr Q24H IV 06/11/25 12:00 06/12/25 23:27 20 MLS/HR Midazolam HCl 50 ml @ 1 mls/hr Q24H IV 06/11/25 14:45 06/13/25 03:30 2 MLS/HR Laboratory Results Laboratory Tests 06/13/25 03:50 Chemistry Test 06/13/25 03:50 Calcium Level 9.5 mg/dL (8.7-10.4) Magnesium Level 2.0 mg/dL (1.6-2.6) Urinalysis Test 06/09/25 16:55 Urine Color Colorless (Yellow) Urine Clarity Clear (Clear) Urine pH 5.5 (5.0-9.0) Urine Specific Brick 1.007 (1.001-1.035) Urine Protein Negative (Negative) Urine Ketones Negative (Negative) Urine Blood 2+ /uL (Negative) H Urine Nitrite Negative (Negative) Urine Bilirubin Negative (Negative) Urine Urobilinogen Normal mg/dL (Negative) Urine Leukocyte Esterase Negative /uL (Negative) Urine RBC 38 /hpf (0 - 4) Urine Microscopic WBC 1 /HPF (0-5) Urine Squamous Epithelial Cells Few /hpf (<5) Urine Bacteria None seen /hpf (None Seen) Urine Glucose Normal mg/dL (Normal) Blood Gas Results Test 06/13/25 08:46 Arterial Blood pH 7.440 (7.350-7.450) FiO2 % 35.0 Microbiology Microbiology Date/Time Source Procedure Growth Status 06/11/25 14:25 Nose MRSA Screen - Final Complete 06/08/25 23:11 Blood Blood Culture - Preliminary NO GROWTH AFTER 72 HOURS OF INCUBATION. Resulted Labs and/or images reviewed: Labs reviewed by me Assessment/Plan Assessment/Plan Community-acquired pneumonia with Gram-positive pneumonia Acute hypoxic respiratory failure status post intubation CHF with exacerbation COPD Leukocytosis Acute kidney injury Continuing current management. Continuing with IV Lasix. Continuing IV antibiotic. Continuing with ventilation support. Hopefully can wean the patient off soon. Continuing to monitor kidney function. Critical care spent for this case is 37 minutes This medical document was created using an electronic medical record system with [employer] direct computerized dictation system. Although this document has been carefully reviewed, there may still be some phonetic and typographical errors. These areas are purely typographical due to imperfections of the software programs, and do not reflect any compromise in the patient's medical care. Plan discussed with: Other (RN) Date of Service: Jun 13, 2025 Billing Provider: CHAO HEATH MD Common Visit Codes: 74312-[id number] CARE 30-74 MIN CHAO HEATH MD Jun 13, 2025 11:13
--- NOTE | 2025-06-13 11:46 | DVHPN2 ---
Progress Note Date Seen: Jun 13, 2025 Medical Necessity Reason Pt with a Central, PICC or Fol: Yes The following are medically ne: Central Line, Engel Catheter Subjective Review of Systems: Deferred Objective vital signs Vital Sign Date Time Temp Pulse Resp B/P (MAP) Pulse Ox O2 Delivery O2 Flow Rate FiO2 06/13/25 11:35 71 24 129/71 (90) 100 35 06/13/25 09:43 Mechanical Ventilator+ 06/13/25 07:45 98.3 98.3 Total Intake and Output 06/12/25 06/12/25 06/13/25 15:00 23:00 07:00 Intake Total 598.46 ml 473.8 ml 545.04 ml Output Total 350 ml 750 ml Balance 598.46 ml 123.8 ml -204.96 ml medications Current Medications Medications Dose Ordered Sig/Bárbara Route Start Time Stop Time Status Last Admin Dose Admin Cefepime HCl 50 ml @ 12.5 mls/hr Q12HR IV 06/09/25 10:00 06/13/25 08:05 12.5 MLS/HR Apixaban 5 mg BID PO 06/09/25 10:00 06/13/25 08:04 5 MG Amiodarone HCl 200 mg Q12HR PO 06/09/25 10:00 06/13/25 08:05 200 MG Sertraline HCl 100 mg DAILY PO 06/09/25 10:00 06/13/25 08:10 100 MG Metoprolol Succinate 50 mg DAILY PO 06/09/25 10:00 06/13/25 08:12 50 MG Clonidine HCl 0.1 mg Q6HP PRN PO 06/09/25 01:00 Albuterol 2.5 mg Q6HPRN PRN NEB 06/09/25 01:00 06/10/25 18:54 2.5 MG Ipratropium [place] 0.5 mg Q6HPRN PRN NEB 06/09/25 01:00 06/10/25 18:54 0.5 MG Ondansetron HCl 4 mg Q4HP PRN IV 06/09/25 01:00 Cancel Acetaminophen 650 mg Q6HP PRN PO 06/09/25 01:00 06/10/25 20:15 650 MG Nitroglycerin 0.4 mg Q5MINP PRN SL 06/09/25 01:00 Morphine Sulfate 2 mg Q30M PRN IV 06/09/25 01:00 06/10/25 05:50 2 MG Methylprednisolone Sodium Succinate 40 mg BID IV 06/09/25 18:00 06/13/25 08:05 40 MG Furosemide 40 mg BIDD IV 06/09/25 18:00 06/13/25 06:34 40 MG Doxycycline Hyclate 100 ml @ 50 mls/hr Q12H IV 06/10/25 11:45 06/13/25 11:39 50 MLS/HR Acetaminophen/ Hydrocodone Bitart 1 tab Q6HPRN PRN PO 06/11/25 00:15 06/11/25 00:40 1 TAB Alprazolam 0.5 mg Q8HPRN PRN PO 06/11/25 00:15 06/11/25 00:39 0.5 MG Propofol 100 ml @ 2.16 mls/hr Q24H IV 06/11/25 12:00 06/13/25 11:35 17.28 MLS/HR Fentanyl Citrate 250 ml @ 2.5 mls/hr Q24H IV 06/11/25 12:00 06/13/25 11:00 20 MLS/HR Midazolam HCl 50 ml @ 1 mls/hr Q24H IV 06/11/25 14:45 06/13/25 03:30 2 MLS/HR Examination: GENERAL:Abnormal, LUNGS:Abnormal, CVS:Abnormal laboratory and microbiology Laboratory Tests 06/13/25 03:50 Test 06/13/25 03:50 Range/Units Serum Glucose 174 H 74-106 mg/dL Microbiology Date/Time Source Procedure Growth Status 06/11/25 14:25 Nose MRSA Screen - Final Complete 06/08/25 23:11 Blood Blood Culture - Preliminary NO GROWTH AFTER 72 HOURS OF INCUBATION. Resulted Problem List/Assessment/Plan Problem List/Assessment/Plan 54-year-old female past medical history of chronic kidney disease and recent admission for sepsis due to bacteremia presents to the hospital complaining of shortness of breath and developed respiratory failure in the setting of pneumonia. Acute kidney injury on chronic kidney disease stage IIIA [facility] Septic shock secondary to pneumonia Respiratory failure History of severe aortic valve insufficiency, mitral valve insufficiency and tricuspid regurg Congestive heart failure Anemia chronic kidney disease noted multiple hypotensive events last night likely contributed to worsening cr Recommend pressors to keep mean arterial pressure greater than 65 Continue diuretics Strict Is&Os Antibiotics for presumed pneumonia IV iron due to severe iron depletion Recommend blood transfusion to maintain hemoglobin greater than eight given significant cardiac kidney disease Guarded prognosis rest of care as per medical team Plan discussed with: Other (nurse) Dietary Evaluation Review Comments: 1) If patient remains NPO > 7 days, consider EN/TPN to meet at least 75% of estimated daily needs 2) If gut is preferred, consider Nepro @ 25 mL/hr goal rate as tolerated. Flush with 200 mL free H2O Q6H. TF regimen will provide 1080 kcals, 49g Pro, and 1236 mL free H2O per 24 hrs. TF regimen will meet ~ 92% estimated energy needs and 52% estimated protein needs. 3) Advance to 60g CCHO renal cardiac diet when medically feasible, pending ST approval 4) Refer to outpatient RD/[facility] for weight management 5) Follow-up with cardiology, pulmonology, or nephrology 6) Continue to monitor I&O, labs, and skin integrity Expected Outcomes/Goals: 1) patient to receive nutritional support within 7 days of NPO status 2) labs to improve 3) diet to advance 4) f/u in 2-3 days Critical Care Time (mins): 33 Sepsis reassessment post fluid Capillary Refill: < 3 seconds TIM MORALES MD Jun 13, 2025 11:46
--- NOTE | 2025-06-13 12:21 | DVHPN2 ---
Progress Note - Dictate Date Seen: Jun 13, 2025 Medical Necessity Reason Pt with a Central, PICC or Fol: Yes The following are medically ne: Central Line, Engel Catheter vital signs Vital Sign Date Time Temp Pulse Resp B/P (MAP) Pulse Ox O2 Delivery O2 Flow Rate FiO2 06/13/25 11:35 71 24 129/71 (90) 100 35 06/13/25 09:43 Mechanical Ventilator+ 06/13/25 07:45 98.3 98.3 Total Intake and Output 06/12/25 06/12/25 06/13/25 15:00 23:00 07:00 Intake Total 598.46 ml 473.8 ml 545.04 ml Output Total 350 ml 750 ml Balance 598.46 ml 123.8 ml -204.96 ml medications Current Medications Medications Dose Ordered Sig/Bárbara Route Start Time Stop Time Status Last Admin Dose Admin Cefepime HCl 50 ml @ 12.5 mls/hr Q12HR IV 06/09/25 10:00 06/13/25 08:05 12.5 MLS/HR Apixaban 5 mg BID PO 06/09/25 10:00 06/13/25 08:04 5 MG Amiodarone HCl 200 mg Q12HR PO 06/09/25 10:00 06/13/25 08:05 200 MG Sertraline HCl 100 mg DAILY PO 06/09/25 10:00 06/13/25 08:10 100 MG Metoprolol Succinate 50 mg DAILY PO 06/09/25 10:00 06/13/25 08:12 50 MG Clonidine HCl 0.1 mg Q6HP PRN PO 06/09/25 01:00 Albuterol 2.5 mg Q6HPRN PRN NEB 06/09/25 01:00 06/10/25 18:54 2.5 MG Ipratropium [place] 0.5 mg Q6HPRN PRN NEB 06/09/25 01:00 06/10/25 18:54 0.5 MG Ondansetron HCl 4 mg Q4HP PRN IV 06/09/25 01:00 Cancel Acetaminophen 650 mg Q6HP PRN PO 06/09/25 01:00 06/10/25 20:15 650 MG Nitroglycerin 0.4 mg Q5MINP PRN SL 06/09/25 01:00 Morphine Sulfate 2 mg Q30M PRN IV 06/09/25 01:00 06/10/25 05:50 2 MG Methylprednisolone Sodium Succinate 40 mg BID IV 06/09/25 18:00 06/13/25 08:05 40 MG Furosemide 40 mg BIDD IV 06/09/25 18:00 06/13/25 06:34 40 MG Doxycycline Hyclate 100 ml @ 50 mls/hr Q12H IV 06/10/25 11:45 06/13/25 11:39 50 MLS/HR Acetaminophen/ Hydrocodone Bitart 1 tab Q6HPRN PRN PO 06/11/25 00:15 06/11/25 00:40 1 TAB Alprazolam 0.5 mg Q8HPRN PRN PO 06/11/25 00:15 06/11/25 00:39 0.5 MG Propofol 100 ml @ 2.16 mls/hr Q24H IV 06/11/25 12:00 06/13/25 11:35 17.28 MLS/HR Fentanyl Citrate 250 ml @ 2.5 mls/hr Q24H IV 06/11/25 12:00 06/13/25 11:00 20 MLS/HR Midazolam HCl 50 ml @ 1 mls/hr Q24H IV 06/11/25 14:45 06/13/25 03:30 2 MLS/HR Iron Sucrose 110 ml @ 110 mls/hr DAILY@1200 IV 06/13/25 12:00 06/17/25 12:59 UNV laboratory and microbiology Laboratory Tests 06/13/25 03:50 Test 06/13/25 03:50 Range/Units Serum Glucose 174 H 74-106 mg/dL Assessment/Plan Impression Acute hypoxemic respiratory failure Acute pulmonary edema Pneumonia CHF Patient seen and examined in ICU Events On mechanical ventilation S/p intubation PEEP 8, FiO2 35% Labs and imaging reviewed Chest x-ray shows improvement in lung aeration ABG reviewed Management Vent support Titrate to maintain sats 90% or above Sedation holiday daily If patient follows commands, proceed to weaning trial Pressure support 04/10, extubate when ready Continue antibiotics F/u cultures Bronchodilators Diurese Monitor renal function Monitor electrolytes Supplement as needed Pressors as needed for hemodynamic support To maintain a mean arterial pressure of 65 mmHg DVT prophylaxis Critical care time 35 minutes Dietary Evaluation Review Comments: 1) If patient remains NPO > 7 days, consider EN/TPN to meet at least 75% of estimated daily needs 2) If gut is preferred, consider Nepro @ 25 mL/hr goal rate as tolerated. Flush with 200 mL free H2O Q6H. TF regimen will provide 1080 kcals, 49g Pro, and 1236 mL free H2O per 24 hrs. TF regimen will meet ~ 92% estimated energy needs and 52% estimated protein needs. 3) Advance to 60g CCHO renal cardiac diet when medically feasible, pending ST approval 4) Refer to outpatient RD/[facility] for weight management 5) Follow-up with cardiology, pulmonology, or nephrology 6) Continue to monitor I&O, labs, and skin integrity Expected Outcomes/Goals: 1) patient to receive nutritional support within 7 days of NPO status 2) labs to improve 3) diet to advance 4) f/u in 2-3 days Plan discussed with: Other (Rn) Capillary Refill: < 3 seconds GIA HAYWARD MD Jun 13, 2025 12:21
[2025-06-13] MEDS: IRON SUCROSE COMPLEX 110 ML IV SCH (13:30)
[2025-06-13] MEDS: DEXMEDETOMIDINE HCL IN D5W 100 ML IV SCH (22:00)
--- NOTE | 2025-06-13 22:55 | DVHPN2 ---
Progress Note - Dictate Date Seen: Jun 13, 2025 Medical Necessity Reason Pt with a Central, PICC or Fol: Yes The following are medically ne: Central Line, Engel Catheter Subjective Patient was seen and evaluated in follow up in the ICU. No overnight events. Patient is intubated and sedated on ventilator. 35% FiO2. HGB 8.4, HCT 25.4, BUN 69, MERCHANDISING REPRESENTATIVE 2.44, Iron 27, Ferritin 298.8. Chest x-ray is unchanged. vital signs Vital Sign Date Time Temp Pulse Resp B/P (MAP) Pulse Ox O2 Delivery O2 Flow Rate FiO2 06/13/25 13:30 109 24 122/67 (85) 100 06/13/25 13:25 35 06/13/25 12:27 Mechanical Ventilator+ 06/13/25 12:15 98.3 98.3 Total Intake and Output 06/12/25 06/12/25 06/13/25 15:00 23:00 07:00 Intake Total 598.46 ml 473.8 ml 545.04 ml Output Total 350 ml 750 ml Balance 598.46 ml 123.8 ml -204.96 ml medications Current Medications Medications Dose Ordered Sig/Bárbara Route Start Time Stop Time Status Last Admin Dose Admin Cefepime HCl 50 ml @ 12.5 mls/hr Q12HR IV 06/09/25 10:00 06/13/25 08:05 12.5 MLS/HR Apixaban 5 mg BID PO 06/09/25 10:00 06/13/25 08:04 5 MG Amiodarone HCl 200 mg Q12HR PO 06/09/25 10:00 06/13/25 08:05 200 MG Sertraline HCl 100 mg DAILY PO 06/09/25 10:00 06/13/25 08:10 100 MG Metoprolol Succinate 50 mg DAILY PO 06/09/25 10:00 06/13/25 08:12 50 MG Clonidine HCl 0.1 mg Q6HP PRN PO 06/09/25 01:00 Albuterol 2.5 mg Q6HPRN PRN NEB 06/09/25 01:00 06/10/25 18:54 2.5 MG Ipratropium [place] 0.5 mg Q6HPRN PRN NEB 06/09/25 01:00 06/10/25 18:54 0.5 MG Ondansetron HCl 4 mg Q4HP PRN IV 06/09/25 01:00 Cancel Acetaminophen 650 mg Q6HP PRN PO 06/09/25 01:00 06/10/25 20:15 650 MG Nitroglycerin 0.4 mg Q5MINP PRN SL 06/09/25 01:00 Morphine Sulfate 2 mg Q30M PRN IV 06/09/25 01:00 06/10/25 05:50 2 MG Methylprednisolone Sodium Succinate 40 mg BID IV 06/09/25 18:00 06/13/25 08:05 40 MG Furosemide 40 mg BIDD IV 06/09/25 18:00 06/13/25 06:34 40 MG Doxycycline Hyclate 100 ml @ 50 mls/hr Q12H IV 06/10/25 11:45 06/13/25 11:39 50 MLS/HR Acetaminophen/ Hydrocodone Bitart 1 tab Q6HPRN PRN PO 06/11/25 00:15 06/11/25 00:40 1 TAB Alprazolam 0.5 mg Q8HPRN PRN PO 06/11/25 00:15 06/11/25 00:39 0.5 MG Propofol 100 ml @ 2.16 mls/hr Q24H IV 06/11/25 12:00 06/13/25 11:35 17.28 MLS/HR Fentanyl Citrate 250 ml @ 2.5 mls/hr Q24H IV 06/11/25 12:00 06/13/25 11:00 20 MLS/HR Midazolam HCl 50 ml @ 1 mls/hr Q24H IV 06/11/25 14:45 06/13/25 03:30 2 MLS/HR Iron Sucrose 110 ml @ 110 mls/hr DAILY@1200 IV 06/13/25 12:00 06/17/25 12:59 06/13/25 13:30 110 MLS/HR objective GENERAL: Ill appearing, intubated on ventilator. EYES: PERRL, EOMI. Anicteric. HENT: Moist mucous membranes. LUNGS: Decreased breath sounds. CARDIOVASCULAR: Regular rate and rhythm. ABDOMEN: Soft, nontender and nondistended. EXTREMITIES: No edema. NEUROLOGIC: No focal neurological deficits. SKIN: Warm, dry. laboratory and microbiology Laboratory Tests 06/13/25 03:50 Test 06/13/25 03:50 Range/Units Serum Glucose 174 H 74-106 mg/dL Problem List Chronic HFpEF, NYHA class IV. Paroxysmal atrial fibrillation, stage III, now NSR (on amiodarone/Elqiuis therapy). Severe aortic valve and mitral valve insufficiency. Acute hypoxic respiratory failure. Asthma. Chronic kidney disease. Thyroid disease. Prediabetes, newly diagnosed. Morbid obesity. History of tobacco use. Assessment/Plan Continued all current supportive medical care. Amiodarone. Eliquis. IV antibiotics as ordered. Clonidine. Diuretics with Lasix. Metoprolol. Additional plan as per the hospital course. Critical care time of 45 minutes provided to include time spent evaluation of patient at bedside, when appropriate patient/family education for diagnosis, treatment plan, review of pertinent medical information and discussion of care with specialty providers and PCP. Mechanical ventilator parameters, treatment and adjustments have personally been reviewed by me and treatment plan by client success manager has also been reviewed. Dietary Evaluation Review Comments: 1) If patient remains NPO > 7 days, consider EN/TPN to meet at least 75% of estimated daily needs 2) If gut is preferred, consider Nepro @ 25 mL/hr goal rate as tolerated. Flush with 200 mL free H2O Q6H. TF regimen will provide 1080 kcals, 49g Pro, and 1236 mL free H2O per 24 hrs. TF regimen will meet ~ 92% estimated energy needs and 52% estimated protein needs. 3) Advance to 60g CCHO renal cardiac diet when medically feasible, pending ST approval 4) Refer to outpatient RD/[facility] for weight management 5) Follow-up with cardiology, pulmonology, or nephrology 6) Continue to monitor I&O, labs, and skin integrity Expected Outcomes/Goals: 1) patient to receive nutritional support within 7 days of NPO status 2) labs to improve 3) diet to advance 4) f/u in 2-3 days Plan discussed with: Other Capillary Refill: < 3 seconds URBANO TRUONG MD Jun 13, 2025 13:48
[2025-06-14] VITALS (108 sets, daily range): BP systolic 119–198; BP diastolic 61–112; PULSE 58–142; RESP 13–26; TEMP 98.1–99.1; O2SAT 35–100
[2025-06-14 03:45] LABS: Hematocrit 25.9 % (36.0-46.0); Hemoglobin 8.5 g/dL (12.2-16.2); Mean Corpuscular Hemoglobin 28.4 pg (28.0-32.0); Mean Corpuscular Volume 86.9 fL (80.0-100.0)
[2025-06-14 04:11] LABS: Albumin 4.2 g/dL (3.2-4.8); Alkaline Phosphatase 56 U/L (46-116); Anion Gap 13 (5-15); BUN/Creatinine Ratio 31.9 (10.0-20.0); Calcium 9.5 mg/dL (8.7-10.4); Carbon Dioxide 23 mmol/L (20-31); Chloride 103 mmol/L (98-107); Magnesium 2.1 mg/dL (1.6-2.6); Potassium 3.7 mmol/L (3.5-5.1); Sodium 139 mmol/L (136-145); Total Protein 7.2 g/dL (5.7-8.2)
[2025-06-14 04:12] LABS: Bilirubin, Total 0.3 mg/dL (0.2-1.0)
[2025-06-14 04:20] LABS: Alanine Aminotransferase 53 U/L (7-40); Glucose 173 mg/dL (74-106)
[2025-06-14 04:21] LABS: Blood Urea Nitrogen 86 mg/dL (9-23)
[2025-06-14 04:40] LABS: Total Cells Counted 100.0 (100)
--- NOTE | 2025-06-14 05:09 | DVH ---
CHEST RADIOGRAPH Indication: RESP FAILURE Technique: Single frontal view of the chest was obtained COMPARISON: XY CHEST PORTABLE on DOS: 06/13/25, XY CHEST PORTABLE on DOS: 06/11/25, XY CHEST PORTABLE on DOS: 06/11/25, XY CHEST PORTABLE on DOS: 06/11/25, XY CHEST PORTABLE on DOS: 06/08/25 FINDINGS: Lines and Tubes: Endotracheal tube, enteric catheter and right central venous catheter in satisfactor y position Lungs: Congestion Pleura: No effusion. No pneumothorax. Cardiomediastinal contours: Unremarkable Bones: Unremarkable IMPRESSION: Lines and tubes in satisfactory position. No significant interval change.
[2025-06-14 07:54] LABS: Base Excess -3.9 mmol/L (-2.0-3.0)
--- NOTE | 2025-06-14 11:14 | DVH ---
INDICATION: radha TECHNIQUE: Multiple real-time sonographic images of the kidneys and bladder were obtained. COMPARISON: US KIDNEY on DOS: 04/26/25, US RENAL on DOS: 09/15/24 FINDINGS: The right kidney measures 9.9 cm in length, which is normal in size. There is normal echoge nicity of the right kidney. No hydronephrosis. The left kidney measures 9.0 cm in length, which is normal in size. There is normal echogenicity of t he left kidney. No hydronephrosis. The urinary bladder is decompressed with Engel catheter. IMPRESSION: 1. Normal sonographic appearance of the kidneys. No hydronephrosis.
[2025-06-14] MEDS: LABETALOL HCL 20 MG/4 ML VL IV ONE ×2 (11:50→11:52)
[2025-06-14] MEDS: ALBUTEROL SULF 2.5 MG/0.5ML(0.5%) NEB SOLN NEB SCH (11:52)
[2025-06-14] MEDS: IPRATROPIUM BROM 0.5 MG/2.5ML INH SOL NEB SCH (11:52)
[2025-06-14] MEDS: AMIODARONE BOLUS KIT 100 ML IV ONE ×2 (12:01→12:02)
--- NOTE | 2025-06-14 12:06 | DVHPN2 ---
Progress Note Date Seen: Jun 14, 2025 Medical Necessity Reason Pt with a Central, PICC or Fol: Yes The following are medically ne: Central Line, Engel Catheter Subjective Review of Systems: RESPIRATORY:Abnormal Other Systems: Patient seen and examined by myself today in follow-up, patient remained intubated on ventilator Objective vital signs Vital Sign Date Time Temp Pulse Resp B/P (MAP) Pulse Ox O2 Delivery O2 Flow Rate FiO2 06/14/25 11:52 138 167/104 06/14/25 11:19 24 98 30 06/14/25 08:00 Mechanical Ventilator+ 06/14/25 04:00 98.2 98.2 Total Intake and Output 06/13/25 06/13/25 06/14/25 15:00 23:00 07:00 Intake Total 558.10 ml 464.24 ml 400.92 ml Output Total 750 ml 850 ml Balance 558.10 ml -285.76 ml -449.08 ml medications Current Medications Medications Dose Ordered Sig/Bárbara Route Start Time Stop Time Status Last Admin Dose Admin Cefepime HCl 50 ml @ 12.5 mls/hr Q12HR IV 06/09/25 10:00 06/14/25 09:54 12.5 MLS/HR Apixaban 5 mg BID PO 06/09/25 10:00 06/13/25 21:35 5 MG Sertraline HCl 100 mg DAILY PO 06/09/25 10:00 06/14/25 09:55 100 MG Ondansetron HCl 4 mg Q4HP PRN IV 06/09/25 01:00 Cancel Acetaminophen 650 mg Q6HP PRN PO 06/09/25 01:00 06/10/25 20:15 650 MG Nitroglycerin 0.4 mg Q5MINP PRN SL 06/09/25 01:00 Furosemide 40 mg BIDD IV 06/09/25 18:00 06/14/25 05:21 40 MG Doxycycline Hyclate 100 ml @ 50 mls/hr Q12H IV 06/10/25 11:45 06/14/25 01:52 50 MLS/HR Acetaminophen/ Hydrocodone Bitart 1 tab Q6HPRN PRN PO 06/11/25 00:15 06/11/25 00:40 1 TAB Alprazolam 0.5 mg Q8HPRN PRN PO 06/11/25 00:15 06/11/25 00:39 0.5 MG Propofol 100 ml @ 2.16 mls/hr Q24H IV 06/11/25 12:00 06/14/25 05:21 8.64 MLS/HR Fentanyl Citrate 250 ml @ 2.5 mls/hr Q24H IV 06/11/25 12:00 06/13/25 11:00 20 MLS/HR Midazolam HCl 50 ml @ 1 mls/hr Q24H IV 06/11/25 14:45 06/14/25 01:02 2 MLS/HR Iron Sucrose 110 ml @ 110 mls/hr DAILY@1200 IV 06/13/25 12:00 06/17/25 12:59 06/13/25 13:30 110 MLS/HR Albuterol 2.5 mg Q6H NEB 06/14/25 10:15 06/14/25 11:52 2.5 MG Ipratropium [place] 0.5 mg Q6HR NEB 06/14/25 10:15 06/14/25 11:52 0.5 MG Carvedilol 6.25 mg Q12HR PO 06/14/25 22:00 Enteral Nutritional Formula 1,000 ml 40ML/HR GT 06/14/25 10:15 Amlodipine Besylate 10 mg DAILY PO 06/15/25 10:00 Methylprednisolone Sodium Succinate 40 mg DAILY IV 06/15/25 10:00 Amiodarone HCL/ Dextrose 200 ml @ 16.66 mls/ hr Q12H IV 06/14/25 17:45 Examination: LUNGS:Normal, CVS:Normal laboratory and microbiology Laboratory Tests 06/14/25 03:22 Test 06/14/25 03:22 Range/Units Serum Glucose 173 H 74-106 mg/dL Microbiology Date/Time Source Procedure Growth Status 06/11/25 14:25 Nose MRSA Screen - Final Complete 06/08/25 23:11 Blood Blood Culture - Final NO GROWTH AFTER 5 DAYS OF INCUBATION. Complete Problem List/Assessment/Plan Problem List/Assessment/Plan Acute kidney injury on chronic kidney disease stage IIIA secondary to hemodynamic mediated Dr[facility] Acute respiratory failure, intubated on ventilator Septic shock secondary to pneumonia COPD exacerbation Chronic diastolic Congestive heart failure AFib with RVR Anemia chronic kidney disease Hyperglycemia Recommendations Kidney function slightly worsened today Increased urine output Engel catheter Strict I&Os Hold diuresis IV antibiotic IV steroids Insulin sliding scale Check urine electrolytes and protein excretion Kidney ultrasound reported within normal limit Cardiology consult We will continue to follow Plan discussed with: Other (Nurse) My Orders My Orders Orders - MARIO DALE MD Procedure Category Date Status Time Urine Sodium LAB 06/14/25 Logged 10:01 Urine LAB 06/14/25 Logged Protein/Creatinine Urine Creatinine LAB 06/14/25 Logged 10:01 Kidney US 06/14/25 Resulted 10:01 Dietary Evaluation Review Comments: 1) If patient remains NPO > 7 days, consider EN/TPN to meet at least 75% of estimated daily needs 2) If gut is preferred, consider Nepro @ 25 mL/hr goal rate as tolerated. Flush with 200 mL free H2O Q6H. TF regimen will provide 1080 kcals, 49g Pro, and 1236 mL free H2O per 24 hrs. TF regimen will meet ~ 92% estimated energy needs and 52% estimated protein needs. 3) Advance to 60g CCHO renal cardiac diet when medically feasible, pending ST approval 4) Refer to outpatient RD/CDCES for weight management 5) Follow-up with cardiology, pulmonology, or nephrology 6) Continue to monitor I&O, labs, and skin integrity Expected Outcomes/Goals: 1) patient to receive nutritional support within 7 days of NPO status 2) labs to improve 3) diet to advance 4) f/u in 2-3 days Sepsis reassessment post fluid Capillary Refill: < 3 seconds MARIO DALE MD Jun 14, 2025 12:06
[2025-06-14] MEDS: AMIODARONE 360mg/200mL PREMIX 200 ML IV ONE (12:25)
[2025-06-14] MEDS: PANTOPRAZOLE 40 MG/10 ML VIAL INJ IV ONE (12:54)
[2025-06-14] MEDS: CARVEDILOL 3.125 MG TAB PO ONE (12:55)
--- NOTE | 2025-06-14 13:41 | MEDREC ---
[facility] Intervention Section I [facility] Intervention: Dose optimization(PK/PD) (CRCL 11 to 29 ( patient's CrCl = 27.2) reduce cefepime dose to 1G IV Q24. Consider reducing dose of cefepime to 1G IV Q12 or Q24H) ABDULLAHI BENAVIDEZ [facility] RESIDENT Jun 14, 2025 13:41
[2025-06-14 14:49] LABS: Protein, Urine 47.7 mg/dL (1-14)
--- NOTE | 2025-06-14 16:59 | DVHPN2 ---
Progress Note - Dictate Date Seen: Jun 14, 2025 Medical Necessity Reason Pt with a Central, PICC or Fol: Yes The following are medically ne: Central Line, Engel Catheter vital signs Vital Sign Date Time Temp Pulse Resp B/P (MAP) Pulse Ox O2 Delivery O2 Flow Rate FiO2 06/14/25 16:22 63 24 125/63 (83) 100 30 06/14/25 14:00 Mechanical Ventilator+ 06/14/25 12:00 98.9 98.9 Total Intake and Output 06/13/25 06/13/25 06/14/25 15:00 23:00 07:00 Intake Total 558.10 ml 464.24 ml 400.92 ml Output Total 750 ml 850 ml Balance 558.10 ml -285.76 ml -449.08 ml medications Current Medications Medications Dose Ordered Sig/Bárbara Route Start Time Stop Time Status Last Admin Dose Admin Ondansetron HCl 4 mg Q4HP PRN IV 06/09/25 01:00 Cancel Acetaminophen 650 mg Q6HP PRN PO 06/09/25 01:00 06/10/25 20:15 650 MG Nitroglycerin 0.4 mg Q5MINP PRN SL 06/09/25 01:00 Doxycycline Hyclate 100 ml @ 50 mls/hr Q12H IV 06/10/25 11:45 06/14/25 13:02 50 MLS/HR Propofol 100 ml @ 2.16 mls/hr Q24H IV 06/11/25 12:00 06/14/25 13:06 15.12 MLS/HR Fentanyl Citrate 250 ml @ 2.5 mls/hr Q24H IV 06/11/25 12:00 06/13/25 11:00 20 MLS/HR Midazolam HCl 50 ml @ 1 mls/hr Q24H IV 06/11/25 14:45 06/14/25 01:02 2 MLS/HR Ipratropium [place] 0.5 mg Q6HR NEB 06/14/25 10:15 06/14/25 11:52 0.5 MG Carvedilol 6.25 mg Q12HR PO 06/14/25 22:00 Enteral Nutritional Formula 1,000 ml 40ML/HR GT 06/14/25 10:15 Amlodipine Besylate 10 mg DAILY PO 06/15/25 10:00 Amiodarone HCL/ Dextrose 200 ml @ 16.66 mls/ hr Q12H IV 06/14/25 17:45 laboratory and microbiology Laboratory Tests 06/14/25 03:22 Test 06/14/25 03:22 Range/Units Serum Glucose 173 H 74-106 mg/dL Assessment/Plan Impression Acute hypoxemic respiratory failure Acute pulmonary edema Pneumonia CHF Patient seen and examined in ICU Events On mechanical ventilation S/p intubation PEEP 6, FiO2 35% Labs and imaging reviewed Chest x-ray shows improvement in lung aeration ABG reviewed Management Vent support Titrate to maintain sats 90% or above Sedation holiday daily If patient follows commands, proceed to weaning trial Pressure support 04/10, extubate when ready precedex as needed Continue antibiotics F/u cultures Bronchodilators Diurese Monitor renal function Monitor electrolytes Supplement as needed Pressors as needed for hemodynamic support To maintain a mean arterial pressure of 65 mmHg DVT prophylaxis Critical care time 35 minutes Dietary Evaluation Review Comments: 1) If patient remains NPO > 7 days, consider EN/TPN to meet at least 75% of estimated daily needs 2) If gut is preferred, consider Nepro @ 25 mL/hr goal rate as tolerated. Flush with 200 mL free H2O Q6H. TF regimen will provide 1080 kcals, 49g Pro, and 1236 mL free H2O per 24 hrs. TF regimen will meet ~ 92% estimated energy needs and 52% estimated protein needs. 3) Advance to 60g CCHO renal cardiac diet when medically feasible, pending ST approval 4) Refer to outpatient RD/CDCES for weight management 5) Follow-up with cardiology, pulmonology, or nephrology 6) Continue to monitor I&O, labs, and skin integrity Expected Outcomes/Goals: 1) patient to receive nutritional support within 7 days of NPO status 2) labs to improve 3) diet to advance 4) f/u in 2-3 days Plan discussed with: Patient, Other (rn) Capillary Refill: < 3 seconds GIA HAYWARD MD Jun 14, 2025 16:58
--- NOTE | 2025-06-14 18:37 | DVHPNRES ---
Progress Note Date Seen: Jun 14, 2025 Resident Creating Document: MARCELLO BURDEN RESIDENT Medical Necessity Reason Pt with a Central, PICC or Fol: Yes The following are medically ne: Central Line, Engel Catheter Subjective Review of Systems This is a 54-year-old female with chronic heart failure with preserved ejection fraction, paroxysmal atrial fibrillation, severe aortic and mitral insufficiency, prediabetes, asthma and ?CKD, morbid obesity who presented to the ER for the evaluation of shortness of breaths for the past 2 days. Associated with nonproductive cough and swelling at her ankles for the past 2 weeks. She denied fever or chills per chart review. Patient was kept on BiPAP which did not improve her condition and she had increased work of breathing and therefore patient was intubated and mechanically ventilated on 06/11. She has been getting IV diuretics with Lasix, and has been getting treatment for CHF exacerbation and pneumonia. Overnight afebrile, respiratory rate 24 per minute, on minimal vent settings at 30% FiO2. WBC downtrending from 20 on arrival to 9.5, BUN/creatinine trending up, GFR decreasing. Patient seen and examined in ICU. Patient was having AFib with RVR, started IV amiodarone, discontinued p.o. amiodarone. Which improved patient's heart rate. Started Coreg and amlodipine. Objective vital signs Vital Sign Date Time Temp Pulse Resp B/P (MAP) Pulse Ox O2 Delivery O2 Flow Rate FiO2 06/14/25 18:20 58 24 119/62 (81) 100 30 06/14/25 14:00 Mechanical Ventilator+ 06/14/25 12:00 98.9 98.9 Total Intake and Output 06/13/25 06/13/25 06/14/25 15:00 23:00 07:00 Intake Total 558.10 ml 464.24 ml 403.42 ml Output Total 750 ml 850 ml Balance 558.10 ml -285.76 ml -446.58 ml medications Current Medications Medications Dose Ordered Sig/Bárbara Route Start Time Stop Time Status Last Admin Dose Admin Ondansetron HCl 4 mg Q4HP PRN IV 06/09/25 01:00 Cancel Acetaminophen 650 mg Q6HP PRN PO 06/09/25 01:00 06/10/25 20:15 650 MG Nitroglycerin 0.4 mg Q5MINP PRN SL 06/09/25 01:00 Doxycycline Hyclate 100 ml @ 50 mls/hr Q12H IV 06/10/25 11:45 06/14/25 13:02 50 MLS/HR Propofol 100 ml @ 2.16 mls/hr Q24H IV 06/11/25 12:00 06/14/25 13:06 15.12 MLS/HR Fentanyl Citrate 250 ml @ 2.5 mls/hr Q24H IV 06/11/25 12:00 06/14/25 17:21 7.5 MLS/HR Midazolam HCl 50 ml @ 1 mls/hr Q24H IV 06/11/25 14:45 06/14/25 01:02 2 MLS/HR Ipratropium [place] 0.5 mg Q6HR NEB 06/14/25 10:15 06/14/25 11:52 0.5 MG Carvedilol 6.25 mg Q12HR PO 06/14/25 22:00 Enteral Nutritional Formula 1,000 ml 40ML/HR GT 06/14/25 10:15 Amlodipine Besylate 10 mg DAILY PO 06/15/25 10:00 Amiodarone HCL/ Dextrose 200 ml @ 16.66 mls/ hr Q12H IV 06/14/25 17:45 Examination Morbidly obese female patient lying in the bed intubated and mechanically ventilated, RASS -3 General: Morbidly obese, afebrile, palor, mucosae are moist Cardiovascular: Tachycardic and irregular S1 and S2. No murmurs, gallops or rubs. No JVD elevation. 1+ pitting edema bilaterally Respiratory: Decreased bilateral air entry, coarse crackles on the left lower Abdomen: Soft, nontender, nondistended, normoactive bowel sounds, no rebound tenderness, no organomegaly, no masses Genitourinary: Deferred MSK/skin: Skin is dry and warm Neurological: Intact gag/pupillary light reflex Pupils are isocoric and reactive. laboratory and microbiology Laboratory Tests 06/14/25 03:22 Test 06/14/25 03:22 Range/Units Serum Glucose 173 H 74-106 mg/dL Microbiology Date/Time Source Procedure Growth Status 06/11/25 14:25 Nose MRSA Screen - Final Complete 06/08/25 23:11 Blood Blood Culture - Final NO GROWTH AFTER 5 DAYS OF INCUBATION. Complete Labs and/or images reviewed: Labs reviewed by me, Image(s) reviewed by me Problem List/Assessment/Plan Problem List/Assessment/Plan NEURO: Intubated, on sedatives CARDIOVASCULAR: Acute on chronic heart failure with preserved ejection fraction exacerbation Paroxysmal Atrial fibrillation with RVR Pulmonary edema Severe aortic insufficiency, mitral valve insufficiency, tricuspid regurg Per Cardiology:patient underwent a transesophageal echocardiogram on 03/26/2025 which revealed an EF of 60% with severe aortic insufficiency and with moderate mitral insufficiency. Continue with Preload and afterload reduction. ([id number]- VASc Score 2 points, HAS-BLED Score 0 points): We will recommend to continue antiarrhythmic therapy with amiodarone, DOAC therapy with Eliquis, and beta- octavio for rate control . Outpatient follow up with Dr. Melo in [place] for aortic valve replacement with possible TAVR as well as possible mitral clip. She has seen breaker boss in [place] one time and underwent a EBENEZER. The patient is scheduled to have a right and left heart catheterization later this month for TAVR workup. P.o. amlodipine, p.o. Coreg IV amiodarone protocol started 06/14 Lasix 40 mg IV b.i.d., on hold 06/14 per Nephrology given elevated creatinine Discontinued Solu-Medrol PULMONARY: Acute hypoxic respiratory failure status post intubation 06/11 Sepsis secondary to Acute Gram-positive and Gram-negative pneumonia Likely COPD History of asthma IV doxycycline Nebulized treatments GASTROINTESTINAL: Transaminitis, liver ultrasound pending GENITOURINARY: NYASIA secondary to hemodynamically mediated/VMN ? Chronic kidney disease Anemia of CKD Kidney ultrasound shows Normal sonographic appearance of the kidneys. No hydronephrosis. Nephrology on board HEMATOLOGY: Anemia likely normocytic secondary to chronic kidney disease Iron profile demonstrates anemia of kidney disease METABOLIC: Morbid obesity Diabetic education once extubated INFECTIOUS DISEASE: Sepsis secondary to pneumonia Blood culture negative respiratory culture negative MRSA screen negative DIET: Tube feeding started with Nepro 06/14 DVT prophylax: Eliquis on hold GI prophylaxis: Protonix IV daily Bowel regimen: Lactulose Code status: Full code LINES/DRAINS/ACCESS: IV access: Right IJ 06/11 Drips: Versed, fentanyl Engel catheter DISPOSITION: ICU Patient's status discussed with the nurse in which all questions have been answered Critical care time spent more than 83 minutes, including patient care, chart review, and updating the family. Excluding any procedures Case discussed with Dr. Benjamin CPAP trial in a.m.. Plan discussed with: Other (Nurse) My Orders My Orders Orders - MARCELLO BURDEN Procedure Category Date Status Time Ipratropium Medneb PHA 06/14/25 In Process (Atrovent Medneb) 10:15 Carvedilol Tablet PHA 06/14/25 In Process (Coreg Tablet) 22:00 Nutritional PHA 06/14/25 In Process Supplements (Nepro 10:15 Amlodipine Tablet PHA 06/15/25 In Process (Norvasc Tablet) 10:00 Amiodarone PHA 06/14/25 In Process 360mg/200ml Premix 17:45 Ventilator Orders RT 06/14/25 Transmitted 06:00 Dietary Evaluation Review Comments: 1) If patient remains NPO > 7 days, consider EN/TPN to meet at least 75% of estimated daily needs 2) If gut is preferred, consider Nepro @ 25 mL/hr goal rate as tolerated. Flush with 200 mL free H2O Q6H. TF regimen will provide 1080 kcals, 49g Pro, and 1236 mL free H2O per 24 hrs. TF regimen will meet ~ 92% estimated energy needs and 52% estimated protein needs. 3) Advance to 60g CCHO renal cardiac diet when medically feasible, pending ST approval 4) Refer to outpatient RD/CDCES for weight management 5) Follow-up with cardiology, pulmonology, or nephrology 6) Continue to monitor I&O, labs, and skin integrity Expected Outcomes/Goals: 1) patient to receive nutritional support within 7 days of NPO status 2) labs to improve 3) diet to advance 4) f/u in 2-3 days Sepsis reassessment post fluid Capillary Refill: < 3 seconds Date of Service: Jun 14, 2025 Billing Provider: ELZA BENJAMIN MD Common Visit Codes: 37423-[id number] CARE 30-74 MIN, [id number] CARE-EACH +30MIN MARCELLO BURDEN Jun 14, 2025 18:37 ELZA BENJAMIN MD Jun 15, 2025 14:56
[2025-06-14] MEDS: AMIODARONE 360mg/200mL PREMIX 200 ML IV SCH (18:42)
--- NOTE | 2025-06-14 20:06 | DVH ---
ULTRASOUND DOPPLER CLINICAL HISTORY: Transaminitis TECHNIQUE: Doppler examination of the abdomen was performed. COMPARISON: US KIDNEY on DOS: 06/14/25, US KIDNEY on DOS: 04/26/25, US RENAL on DOS: 09/15/24, US AORTA on DOS: 07/08/24 FINDINGS: The liver measures 17.2 cm. There is increased hepatic echogenicity. No masses are seen. T here is hepatopetal flow. There is no ascites or pleural effusion. Prior cholecystectomy. The commo n bile duct measures 8 mm. Visualized portions of the pancreas are unremarkable. The right kidney me asures 8.9 cm without evidence of calculi, hydronephrosis, or renal mass. IMPRESSION: 1. Hepatomegaly and increased hepatic echogenicity which may reflect hepatic steatosis or intrinsic h epatocellular disease. 2. Prior cholecystectomy with mild dilation of the common bile duct, possibly postsurgical. Further clinical correlation is suggested.
[2025-06-14] MEDS: CARVEDILOL 3.125 MG TAB PO SCH (22:00)
--- NOTE | 2025-06-14 23:26 | DVHPN2 ---
Progress Note - Dictate Date Seen: Jun 14, 2025 Medical Necessity Reason Pt with a Central, PICC or Fol: Yes The following are medically ne: Central Line, Engel Catheter Subjective Patient was seen and evaluated in follow up in the ICU. No overnight events. Patient is intubated and sedated on ventilator. 30% FiO2. Patient was having AFib with RVR, started IV amiodarone. HGB 8.5, HCT 25.9, BUN 86, Ergonomics Engineer 2.70. vital signs Vital Sign Date Time Temp Pulse Resp B/P (MAP) Pulse Ox O2 Delivery O2 Flow Rate FiO2 06/14/25 23:00 63 158/77 06/14/25 22:03 24 100 30 06/14/25 20:00 98.6 98.6 06/14/25 20:00 Mechanical Ventilator+ Total Intake and Output 06/13/25 06/13/25 06/14/25 15:00 23:00 07:00 Intake Total 558.10 ml 464.24 ml 403.42 ml Output Total 750 ml 850 ml Balance 558.10 ml -285.76 ml -446.58 ml medications Current Medications Medications Dose Ordered Sig/Bárbara Route Start Time Stop Time Status Last Admin Dose Admin Ondansetron HCl 4 mg Q4HP PRN IV 06/09/25 01:00 Cancel Acetaminophen 650 mg Q6HP PRN PO 06/09/25 01:00 06/10/25 20:15 650 MG Nitroglycerin 0.4 mg Q5MINP PRN SL 06/09/25 01:00 Doxycycline Hyclate 100 ml @ 50 mls/hr Q12H IV 06/10/25 11:45 06/14/25 23:23 50 MLS/HR Propofol 100 ml @ 2.16 mls/hr Q24H IV 06/11/25 12:00 06/14/25 13:06 15.12 MLS/HR Fentanyl Citrate 250 ml @ 2.5 mls/hr Q24H IV 06/11/25 12:00 06/14/25 17:21 7.5 MLS/HR Midazolam HCl 50 ml @ 1 mls/hr Q24H IV 06/11/25 14:45 06/14/25 01:02 2 MLS/HR Ipratropium [place] 0.5 mg Q6HR NEB 06/14/25 10:15 06/14/25 22:02 0.5 MG Carvedilol 6.25 mg Q12HR PO 06/14/25 22:00 06/14/25 22:00 6.25 MG Enteral Nutritional Formula 1,000 ml 40ML/HR GT 06/14/25 10:15 Amlodipine Besylate 10 mg DAILY PO 06/15/25 10:00 Amiodarone HCL/ Dextrose 200 ml @ 16.66 mls/ hr Q12H IV 06/14/25 17:45 06/14/25 18:42 16.66 MLS/HR Levalbuterol HCl 1.25 mg Q6HR NEB 06/15/25 00:00 objective GENERAL: Ill appearing, intubated on ventilator. EYES: PERRL, EOMI. Anicteric. HENT: Moist mucous membranes. LUNGS: Decreased breath sounds. CARDIOVASCULAR: Regular rate and rhythm. ABDOMEN: Soft, nontender and nondistended. EXTREMITIES: No edema. NEUROLOGIC: No focal neurological deficits. SKIN: Warm, dry. laboratory and microbiology Laboratory Tests 06/14/25 03:22 Test 06/14/25 03:22 Range/Units Serum Glucose 173 H 74-106 mg/dL Problem List Chronic HFpEF, NYHA class IV. Paroxysmal atrial fibrillation, stage III, now NSR (on amiodarone/Elqiuis therapy). Severe aortic valve and mitral valve insufficiency. Acute hypoxic respiratory failure. Asthma. Chronic kidney disease. Thyroid disease. Prediabetes, newly diagnosed. Morbid obesity. History of tobacco use. Assessment/Plan Continued all current supportive medical care. IV Amiodarone. Amlodipine, Coreg. IV antibiotics as ordered. Additional plan as per the hospital course. Critical care time of 45 minutes provided to include time spent evaluation of patient at bedside, when appropriate patient/family education for diagnosis, treatment plan, review of pertinent medical information and discussion of care with specialty providers and PCP. Mechanical ventilator parameters, treatment and adjustments have personally been reviewed by me and treatment plan by meat stocker has also been reviewed. Dietary Evaluation Review Comments: 1) If patient remains NPO > 7 days, consider EN/TPN to meet at least 75% of estimated daily needs 2) If gut is preferred, consider Nepro @ 25 mL/hr goal rate as tolerated. Flush with 200 mL free H2O Q6H. TF regimen will provide 1080 kcals, 49g Pro, and 1236 mL free H2O per 24 hrs. TF regimen will meet ~ 92% estimated energy needs and 52% estimated protein needs. 3) Advance to 60g CCHO renal cardiac diet when medically feasible, pending ST approval 4) Refer to outpatient RD/CDCES for weight management 5) Follow-up with cardiology, pulmonology, or nephrology 6) Continue to monitor I&O, labs, and skin integrity Expected Outcomes/Goals: 1) patient to receive nutritional support within 7 days of NPO status 2) labs to improve 3) diet to advance 4) f/u in 2-3 days Plan discussed with: Other Capillary Refill: < 3 seconds URBANO TRUONG MD Jun 14, 2025 23:26
[2025-06-15] VITALS (111 sets, daily range): BP systolic 113–194; BP diastolic 62–108; PULSE 59–133; RESP 23–26; TEMP 97.7–98.9; O2SAT 91–100
[2025-06-15] MEDS: LEVALBUTEROL HCL 1.25 MG/3 ML NEB NEB SCH (00:28)
[2025-06-15 04:07] LABS: Hematocrit 27.0 % (36.0-46.0); Hemoglobin 8.7 g/dL (12.2-16.2); Mean Corpuscular Hemoglobin 27.9 pg (28.0-32.0); Mean Corpuscular Volume 86.2 fL (80.0-100.0)
[2025-06-15 04:29] LABS: Albumin 4.1 g/dL (3.2-4.8); Alkaline Phosphatase 53 U/L (46-116); Anion Gap 16 (5-15); BUN/Creatinine Ratio 34.7 (10.0-20.0); Calcium 9.7 mg/dL (8.7-10.4); Carbon Dioxide 22 mmol/L (20-31); Chloride 104 mmol/L (98-107); Magnesium 2.1 mg/dL (1.6-2.6); Sodium 142 mmol/L (136-145); Total Protein 7.0 g/dL (5.7-8.2)
[2025-06-15 04:44] LABS: Alanine Aminotransferase 45 U/L (7-40); Bilirubin, Total 0.3 mg/dL (0.2-1.0); Blood Urea Nitrogen 86 mg/dL (9-23); Glucose 107 mg/dL (74-106); Potassium 3.0 mmol/L (3.5-5.1)
[2025-06-15 05:15] LABS: Giant Platelets Few; Total Cells Counted 100.0 (100)
--- NOTE | 2025-06-15 05:29 | DVH ---
CHEST RADIOGRAPH Indication: Follow up Technique: Single frontal view of the chest was obtained COMPARISON: XY CHEST PORTABLE on DOS: 06/14/25, XY CHEST PORTABLE on DOS: 06/13/25, XY CHEST PORTABLE on DOS: 06/11/25, XY CHEST PORTABLE on DOS: 06/11/25, XY CHEST PORTABLE on DOS: 06/11/25, XY CHEST PORTABLE on DOS: 06/14/25 FINDINGS: Lines and Tubes: Endotracheal tube, enteric catheter and right central venous catheter in satisfactor y position Lungs: Congestion Pleura: No effusion. No pneumothorax. Cardiomediastinal contours: Unremarkable Bones: Unremarkable IMPRESSION: Lines and tubes in satisfactory position. No significant interval change.
[2025-06-15] MEDS: POTASSIUM CHL 20MEQ/100ML 100 ML IV SCH (06:02)
[2025-06-15] MEDS: CARVEDILOL 3.125 MG TAB PO ONE (06:40)
[2025-06-15 07:39] LABS: Base Excess -4.5 mmol/L (-2.0-3.0)
--- NOTE | 2025-06-15 09:39 | DVHPN2 ---
Progress Note Date Seen: Jun 15, 2025 Medical Necessity Reason Pt with a Central, PICC or Fol: Yes The following are medically ne: Central Line, Engel Catheter Subjective Review of Systems: RESPIRATORY:Abnormal Other Systems: Patient seen and examined by myself today in follow-up, patient remained intubated on ventilator Objective vital signs Vital Sign Date Time Temp Pulse Resp B/P (MAP) Pulse Ox O2 Delivery O2 Flow Rate FiO2 06/15/25 09:27 91 24 180/85 (116) 99 30 06/15/25 08:00 Mechanical Ventilator+ 06/15/25 00:00 98.3 98.3 Total Intake and Output 06/14/25 06/14/25 06/15/25 15:00 23:00 07:00 Intake Total 485.21 ml 389.89 ml 378.80 ml Output Total 1250 ml 600 ml Balance 485.21 ml -860.11 ml -221.20 ml medications Current Medications Medications Dose Ordered Sig/Bárbara Route Start Time Stop Time Status Last Admin Dose Admin Ondansetron HCl 4 mg Q4HP PRN IV 06/09/25 01:00 Cancel Acetaminophen 650 mg Q6HP PRN PO 06/09/25 01:00 06/10/25 20:15 650 MG Nitroglycerin 0.4 mg Q5MINP PRN SL 06/09/25 01:00 Doxycycline Hyclate 100 ml @ 50 mls/hr Q12H IV 06/10/25 11:45 06/14/25 23:23 50 MLS/HR Propofol 100 ml @ 2.16 mls/hr Q24H IV 06/11/25 12:00 06/15/25 01:16 15.12 MLS/HR Fentanyl Citrate 250 ml @ 2.5 mls/hr Q24H IV 06/11/25 12:00 06/14/25 17:21 7.5 MLS/HR Midazolam HCl 50 ml @ 1 mls/hr Q24H IV 06/11/25 14:45 06/14/25 01:02 2 MLS/HR Ipratropium [place] 0.5 mg Q6HR NEB 06/14/25 10:15 06/15/25 06:01 0.5 MG Enteral Nutritional Formula 1,000 ml 40ML/HR GT 06/14/25 10:15 Amlodipine Besylate 10 mg DAILY PO 06/15/25 10:00 Amiodarone HCL/ Dextrose 200 ml @ 16.66 mls/ hr Q12H IV 06/14/25 17:45 06/15/25 06:39 16.66 MLS/HR Levalbuterol HCl 1.25 mg Q6HR NEB 06/15/25 00:00 06/15/25 06:01 1.25 MG Potassium Chloride 100 ml @ 50 mls/hr Q2H IV 06/15/25 06:00 06/15/25 09:59 06/15/25 06:02 50 MLS/HR Carvedilol 12.5 mg Q12HR PO 06/15/25 10:00 Examination: LUNGS:Normal, CVS:Normal, MSK:Normal laboratory and microbiology Laboratory Tests 06/15/25 03:24 Test 06/15/25 03:24 Range/Units Serum Glucose 107 H 74-106 mg/dL Microbiology Date/Time Source Procedure Growth Status 06/11/25 14:25 Nose MRSA Screen - Final Complete 06/08/25 23:11 Blood Blood Culture - Final NO GROWTH AFTER 5 DAYS OF INCUBATION. Complete Problem List/Assessment/Plan Problem List/Assessment/Plan Acute kidney injury on chronic kidney disease stage IIIA secondary to hemodynamic mediated, FeNa > 2% [facility] Acute respiratory failure, intubated on ventilator Septic shock secondary to pneumonia COPD exacerbation Chronic diastolic Congestive heart failure AFib with RVR Anemia chronic kidney disease Hyperglycemia Hypokalemia Hypothyroidism Recommendations Kidney function is improving today Increased urine output Engel catheter Strict I&Os Hold diuresis IV antibiotic IV steroids KCL replacement Thyroid replacement Insulin sliding scale Kidney ultrasound reported within normal limit Cardiology consult We will continue to follow Plan discussed with: Other (Nurse) My Orders My Orders Orders - MARIO DALE MD Procedure Category Date Status Time Kidney US 06/14/25 Resulted 10:01 Dietary Evaluation Review Comments: 1) If patient remains NPO > 7 days, consider EN/TPN to meet at least 75% of estimated daily needs 2) If gut is preferred, consider Nepro @ 25 mL/hr goal rate as tolerated. Flush with 200 mL free H2O Q6H. TF regimen will provide 1080 kcals, 49g Pro, and 1236 mL free H2O per 24 hrs. TF regimen will meet ~ 92% estimated energy needs and 52% estimated protein needs. 3) Advance to 60g CCHO renal cardiac diet when medically feasible, pending ST approval 4) Refer to outpatient RD/CDCES for weight management 5) Follow-up with cardiology, pulmonology, or nephrology 6) Continue to monitor I&O, labs, and skin integrity Expected Outcomes/Goals: 1) patient to receive nutritional support within 7 days of NPO status 2) labs to improve 3) diet to advance 4) f/u in 2-3 days Sepsis reassessment post fluid Capillary Refill: < 3 seconds MARIO DALE MD Jun 15, 2025 09:39
[2025-06-15] MEDS: FUROSEMIDE 40 MG/4 ML VIAL IV ONE (09:44)
[2025-06-15] MEDS: CARVEDILOL 3.125 MG TAB PO SCH (09:46)
[2025-06-15] MEDS ORDERED: methylPREDNISolone SOD SUCC 40 MG/ML VL IV SCH (10:00)
[2025-06-15 10:49] LABS: Free T4 (Free Thyroxine) 0.74 ng/dL (0.89-1.76)
[2025-06-15 12:38] LABS: INR 1.15 (0.9-1.15); Partial Thromboplastin Time 24.4 SEC (24.5-34.5); Prothrombin Time 12.0 sec (9.3-11.8)
[2025-06-15] MEDS: Pro-Stat SF 30ml Vanilla GT SCH (13:15)
[2025-06-15] MEDS: LEVOTHYROXINE SODIUM 50 MCG TAB PO ONE (15:21)
[2025-06-15] MEDS: LACTULOSE 20Gm/30ML SOLN PO SCH (15:21)
--- NOTE | 2025-06-15 18:18 | DVHPNRES ---
Progress Note Date Seen: Jun 15, 2025 Resident Creating Document: MARCELLO BURDEN RESIDENT Medical Necessity Reason Pt with a Central, PICC or Fol: Yes The following are medically ne: Central Line, Engel Catheter Subjective Review of Systems This is a 54-year-old female with chronic heart failure with preserved ejection fraction, paroxysmal atrial fibrillation, severe aortic and mitral insufficiency, prediabetes, asthma and ?CKD, morbid obesity who presented to the ER for the evaluation of shortness of breaths for the past 2 days. Associated with nonproductive cough and swelling at her ankles for the past 2 weeks. She denied fever or chills per chart review. Patient was kept on BiPAP which did not improve her condition and she had increased work of breathing and therefore patient was intubated and mechanically ventilated on 06/11. She has been getting IV diuretics with Lasix, and has been getting treatment for CHF exacerbation and pneumonia. Per , Patient was intubated in 2022 for pneumonia [place], following which she needed oxygen supplementation with 5 L NC. Overnight afebrile, respiratory rate 24 per minute, on minimal vent settings at 30% FiO2. WBC downtrending from 20 on arrival to 9.5, BUN/creatinine trending up, GFR decreasing. Social history: Quit smoking 20 years, was smoking marijuana till June 2023. Lives with 06/14-Patient seen and examined in ICU. Patient was having AFib with RVR, started IV amiodarone, discontinued p.o. amiodarone. Which improved patient's heart rate. Started Coreg and amlodipine. 06/15 - seen and examined, WBC count increased to 14 from 9. GFR and creatinine improving. Intermittently AFib with RVR, IV amiodarone increased from 0.5-1. CPAP trial failed, low tidal volumes Objective vital signs Vital Sign Date Time Temp Pulse Resp B/P (MAP) Pulse Ox O2 Delivery O2 Flow Rate FiO2 06/15/25 18:00 77 06/15/25 18:00 30 06/15/25 18:00 24 99 Mechanical Ventilator+ 06/15/25 17:10 159/82 06/15/25 12:00 97.9 97.9 Total Intake and Output 06/14/25 06/14/25 06/15/25 14:59 22:59 06:59 Intake Total 336.08 ml 506.56 ml 413.76 ml Output Total 1250 ml 600 ml Balance 336.08 ml -743.44 ml -186.24 ml medications Current Medications Medications Dose Ordered Sig/Bárbara Route Start Time Stop Time Status Last Admin Dose Admin Ondansetron HCl 4 mg Q4HP PRN IV 06/09/25 01:00 Cancel Acetaminophen 650 mg Q6HP PRN PO 06/09/25 01:00 06/10/25 20:15 650 MG Nitroglycerin 0.4 mg Q5MINP PRN SL 06/09/25 01:00 Doxycycline Hyclate 100 ml @ 50 mls/hr Q12H IV 06/10/25 11:45 06/15/25 09:44 50 MLS/HR Propofol 100 ml @ 2.16 mls/hr Q24H IV 06/11/25 12:00 06/15/25 17:10 15.12 MLS/HR Fentanyl Citrate 250 ml @ 2.5 mls/hr Q24H IV 06/11/25 12:00 06/14/25 17:21 7.5 MLS/HR Midazolam HCl 50 ml @ 1 mls/hr Q24H IV 06/11/25 14:45 06/14/25 01:02 2 MLS/HR Ipratropium [place] 0.5 mg Q6HR NEB 06/14/25 10:15 06/15/25 18:08 0.5 MG Enteral Nutritional Formula 1,000 ml 40ML/HR GT 06/14/25 10:15 Amlodipine Besylate 10 mg DAILY PO 06/15/25 10:00 06/15/25 09:45 10 MG Amiodarone HCL/ Dextrose 200 ml @ 16.66 mls/ hr Q12H IV 06/14/25 17:45 06/15/25 09:47 16.66 MLS/HR Levalbuterol HCl 1.25 mg Q6HR NEB 06/15/25 00:00 06/15/25 18:08 1.25 MG Carvedilol 12.5 mg Q12HR PO 06/15/25 10:00 06/15/25 09:46 12.5 MG Levothyroxine Sodium 50 mcg QAM@0600 PO 06/16/25 06:00 Amino Acid Protein 30 ml BID GT 06/15/25 13:15 Lactulose 30 ml Q6HR PO 06/15/25 15:00 06/15/25 17:11 30 ML Examination Morbidly obese female patient lying in the bed intubated and mechanically ventilated, RASS -1 General: Morbidly obese, afebrile, palor, mucosae are moist Cardiovascular: Tachycardic and irregular S1 and S2. No murmurs, gallops or rubs. No JVD elevation. 1+ pitting edema bilaterally Respiratory: Decreased bilateral air entry, coarse crackles on the left lower Abdomen: Soft, nontender, nondistended, normoactive bowel sounds, no rebound tenderness, no organomegaly, no masses Genitourinary: Deferred MSK/skin: Skin is dry and warm Neurological: Intact gag/pupillary light reflex Pupils are isocoric and reactive. Following commands, light sedation. laboratory and microbiology Laboratory Tests 06/15/25 03:24 Test 06/15/25 03:24 Range/Units Serum Glucose 107 H 74-106 mg/dL Microbiology Date/Time Source Procedure Growth Status 06/11/25 14:25 Nose MRSA Screen - Final Complete 06/08/25 23:11 Blood Blood Culture - Final NO GROWTH AFTER 5 DAYS OF INCUBATION. Complete Labs and/or images reviewed: Labs reviewed by me, Image(s) reviewed by me Problem List/Assessment/Plan Problem List/Assessment/Plan NEURO: Intubated, on sedatives CARDIOVASCULAR: Acute on chronic heart failure with preserved ejection fraction exacerbation Paroxysmal Atrial fibrillation with RVR Pulmonary edema Severe aortic insufficiency, mitral valve insufficiency, tricuspid regurg Per Cardiology:patient underwent a transesophageal echocardiogram on 03/26/2025 which revealed an EF of 60% with severe aortic insufficiency and with moderate mitral insufficiency. Continue with Preload and afterload reduction. ([id number]- VASc Score 2 points, HAS-BLED Score 0 points): We will recommend to continue antiarrhythmic therapy with amiodarone, DOAC therapy with Eliquis, and beta- octavio for rate control . Outpatient follow up with Dr. Melo in [place] for aortic valve replacement with possible TAVR as well as possible mitral clip. She has seen film processor in [place] one time and underwent a EBENEZER. The patient is scheduled to have a right and left heart catheterization later this month for TAVR workup. P.o. amlodipine, p.o. Coreg IV amiodarone protocol started 06/14 Lasix 40 mg IV b.i.d., IV Lasix 40 mg daily Discontinued Solu-Medrol PULMONARY: Acute hypoxic respiratory failure status post intubation 06/11 Sepsis secondary to Acute Gram-positive and Gram-negative pneumonia Likely COPD History of asthma IV doxycycline Nebulized treatments GASTROINTESTINAL: Transaminitis, likely nonalcoholic steatohepatitis liver ultrasound shows hepatic steatosis GENITOURINARY: NYASIA secondary to hemodynamically mediated/VMN ? Chronic kidney disease Anemia of CKD Kidney ultrasound shows Normal sonographic appearance of the kidneys. No hydronephrosis. Nephrology on board-hold diuresis HEMATOLOGY: Anemia likely normocytic secondary to chronic kidney disease Iron profile demonstrates anemia of kidney disease METABOLIC: Morbid obesity Unspecified thyroid disorder likely hypothyroidism - amiodarone induced Diabetic education once extubated Levothyroxine 50 mcg daily INFECTIOUS DISEASE: Sepsis secondary to pneumonia Blood culture negative respiratory culture negative MRSA screen negative DIET: Tube feeding started with Nepro 06/14 DVT prophylax: Eliquis on hold GI prophylaxis: Protonix IV daily Bowel regimen: Lactulose q.6 hourly Code status: Full code LINES/DRAINS/ACCESS: IV access: Right IJ 06/11 Drips: Versed, fentanyl Engel catheter DISPOSITION: ICU Patient's status discussed with the nurse in which all questions have been answered Critical care time spent more than 81 minutes, including CPAP trial, patient care, chart review, and updating the family. Excluding any procedures Case discussed with Dr. Benjamin CPAP trial in a.m.. Plan discussed with: Spouse (At bedside) My Orders My Orders Orders - MARCELLO BURDEN RESIDENT Procedure Category Date Status Time Levalbuterol Hcl PHA 06/15/25 In Process (Xopenex Medneb) 00:00 LIVER US 06/14/25 Resulted 19:13 Chest Xray 1 View XY 06/15/25 Resulted 04:00 Abg W/ Co-Ox RT 06/15/25 Logged 04:00 Carvedilol Tablet PHA 06/15/25 In Process (Coreg Tablet) 10:00 Electrocardigram EKG 06/15/25 Logged 11:22 Levothyroxine Tablet PHA 06/16/25 In Process (Synthroid Tablet) 06:00 Communication Order ORDERS 06/15/25 Transmitted 11:37 Amino Acids-Protein PHA 06/15/25 In Process Hydrolysat (Pro-Stat 13:15 Ventilator Orders RT 06/15/25 Transmitted 14:43 Lactulose Oral PHA 06/15/25 In Process 15:00 Dietary Evaluation Review Comments: 1) If patient remains NPO > 7 days, consider EN/TPN to meet at least 75% of estimated daily needs 2) If gut is preferred, consider Nepro @ 25 mL/hr goal rate as tolerated. Flush with 200 mL free H2O Q6H. TF regimen will provide 1080 kcals, 49g Pro, and 1236 mL free H2O per 24 hrs. TF regimen will meet ~ 92% estimated energy needs and 52% estimated protein needs. 3) Advance to 60g CCHO renal cardiac diet when medically feasible, pending ST approval 4) Refer to outpatient RD/CD[facility] for weight management 5) Follow-up with cardiology, pulmonology, or nephrology 6) Continue to monitor I&O, labs, and skin integrity Expected Outcomes/Goals: 1) patient to receive nutritional support within 7 days of NPO status 2) labs to improve 3) diet to advance 4) f/u in 2-3 days Sepsis reassessment post fluid Capillary Refill: < 3 seconds Date of Service: Jun 15, 2025 Billing Provider: ELZA BENJAMIN MD Common Visit Codes: 78938-[id number] CARE 30-74 MIN, 94205-[id number] CARE-EACH +30MIN MARCELLO BURDEN RESIDENT Jun 15, 2025 18:18 ELZA BENJAMIN MD Jun 16, 2025 15:17
[2025-06-15] MEDS: AMIODARONE 360mg/200mL PREMIX 200 ML IV ONE (19:00)
--- NOTE | 2025-06-15 23:19 | DVHPN2 ---
Progress Note - Dictate Date Seen: Jun 15, 2025 Medical Necessity Reason Pt with a Central, PICC or Fol: Yes The following are medically ne: Central Line, Engel Catheter Subjective Patient was seen and evaluated in follow up in the ICU. Patient is intubated and sedated on ventilator. 30% FiO2. WBC 14.1, HGB 8.7, HCT 27, K 3.0, BUN 86, Director Of Business Systems 2.48. Liver US shows hepatomegaly and increased hepatic echogenicity which may reflect hepatic steatosis or intrinsic hepatocellular disease. Chest x-ray shows congestion vital signs Vital Sign Date Time Temp Pulse Resp B/P (MAP) Pulse Ox O2 Delivery O2 Flow Rate FiO2 06/15/25 22:51 67 138/71 06/15/25 22:45 24 97 06/15/25 22:21 30 06/15/25 22:00 Mechanical Ventilator+ 06/15/25 20:00 97.7 97.7 Total Intake and Output 06/14/25 06/14/25 06/15/25 15:00 23:00 07:00 Intake Total 485.21 ml 389.89 ml 399.78 ml Output Total 1250 ml 600 ml Balance 485.21 ml -860.11 ml -200.22 ml medications Current Medications Medications Dose Ordered Sig/Bárbara Route Start Time Stop Time Status Last Admin Dose Admin Ondansetron HCl 4 mg Q4HP PRN IV 06/09/25 01:00 Cancel Acetaminophen 650 mg Q6HP PRN PO 06/09/25 01:00 06/10/25 20:15 650 MG Nitroglycerin 0.4 mg Q5MINP PRN SL 06/09/25 01:00 Doxycycline Hyclate 100 ml @ 50 mls/hr Q12H IV 06/10/25 11:45 06/15/25 09:44 50 MLS/HR Propofol 100 ml @ 2.16 mls/hr Q24H IV 06/11/25 12:00 06/15/25 22:03 15.12 MLS/HR Fentanyl Citrate 250 ml @ 2.5 mls/hr Q24H IV 06/11/25 12:00 06/15/25 21:08 20 MLS/HR Midazolam HCl 50 ml @ 1 mls/hr Q24H IV 06/11/25 14:45 06/14/25 01:02 2 MLS/HR Ipratropium [place] 0.5 mg Q6HR NEB 06/14/25 10:15 06/15/25 18:08 0.5 MG Enteral Nutritional Formula 1,000 ml 40ML/HR GT 06/14/25 10:15 Amlodipine Besylate 10 mg DAILY PO 06/15/25 10:00 06/15/25 09:45 10 MG Amiodarone HCL/ Dextrose 200 ml @ 16.66 mls/ hr Q12H IV 06/14/25 17:45 06/15/25 09:47 16.66 MLS/HR Levalbuterol HCl 1.25 mg Q6HR NEB 06/15/25 00:00 06/15/25 18:08 1.25 MG Carvedilol 12.5 mg Q12HR PO 06/15/25 10:00 06/15/25 21:51 12.5 MG Levothyroxine Sodium 50 mcg QAM@0600 PO 06/16/25 06:00 Amino Acid Protein 30 ml BID GT 06/15/25 13:15 Lactulose 30 ml Q6HR PO 06/15/25 15:00 06/15/25 17:11 30 ML objective GENERAL: Ill appearing, intubated on ventilator. EYES: PERRL, EOMI. Anicteric. HENT: Moist mucous membranes. LUNGS: Decreased breath sounds. CARDIOVASCULAR: Regular rate and rhythm. ABDOMEN: Soft, nontender and nondistended. EXTREMITIES: No edema. NEUROLOGIC: No focal neurological deficits. SKIN: Warm, dry. laboratory and microbiology Laboratory Tests 06/15/25 03:24 Test 06/15/25 03:24 Range/Units Serum Glucose 107 H 74-106 mg/dL Problem List Chronic HFpEF, NYHA class IV. Paroxysmal atrial fibrillation, stage III, now NSR (on amiodarone/Elqiuis therapy). Severe aortic valve and mitral valve insufficiency. Acute hypoxic respiratory failure. Asthma. Chronic kidney disease. Thyroid disease. Prediabetes, newly diagnosed. Morbid obesity. History of tobacco use. Assessment/Plan Continued all current supportive medical care. IV Amiodarone. Amlodipine, Coreg. IV antibiotics as ordered. Additional plan as per the hospital course. Critical care time of 45 minutes provided to include time spent evaluation of patient at bedside, when appropriate patient/family education for diagnosis, treatment plan, review of pertinent medical information and discussion of care with specialty providers and PCP. Mechanical ventilator parameters, treatment and adjustments have personally been reviewed by me and treatment plan by manager fine dining has also been reviewed. Dietary Evaluation Review Comments: 1) If patient remains NPO > 7 days, consider EN/TPN to meet at least 75% of estimated daily needs 2) If gut is preferred, consider Nepro @ 25 mL/hr goal rate as tolerated. Flush with 200 mL free H2O Q6H. TF regimen will provide 1080 kcals, 49g Pro, and 1236 mL free H2O per 24 hrs. TF regimen will meet ~ 92% estimated energy needs and 52% estimated protein needs. 3) Advance to 60g CCHO renal cardiac diet when medically feasible, pending ST approval 4) Refer to outpatient RD/CD[facility] for weight management 5) Follow-up with cardiology, pulmonology, or nephrology 6) Continue to monitor I&O, labs, and skin integrity Expected Outcomes/Goals: 1) patient to receive nutritional support within 7 days of NPO status 2) labs to improve 3) diet to advance 4) f/u in 2-3 days Plan discussed with: Other Capillary Refill: < 3 seconds URBANO TRUONG MD Jun 15, 2025 23:19
[2025-06-16] VITALS (109 sets, daily range): BP systolic 112–184; BP diastolic 64–97; PULSE 71–146; RESP 20–25; TEMP 98–99.9; O2SAT 84–100
[2025-06-16 04:22] LABS: Hemoglobin 10.7 g/dL (12.2-16.2)
[2025-06-16 04:31] LABS: Hematocrit 33.1 % (36.0-46.0); Mean Corpuscular Hemoglobin 28.4 pg (28.0-32.0); Mean Corpuscular Volume 87.6 fL (80.0-100.0)
[2025-06-16 04:33] LABS: Albumin 4.4 g/dL (3.2-4.8); Alkaline Phosphatase 86 U/L (46-116); Anion Gap 19 (5-15); BUN/Creatinine Ratio 32.5 (10.0-20.0); Calcium 10.1 mg/dL (8.7-10.4); Magnesium 2.2 mg/dL (1.6-2.6); Sodium 145 mmol/L (136-145); Total Protein 7.5 g/dL (5.7-8.2)
[2025-06-16 04:58] LABS: Alanine Aminotransferase 58 U/L (7-40); Bilirubin, Total 0.3 mg/dL (0.2-1.0); Blood Urea Nitrogen 76 mg/dL (9-23); Carbon Dioxide 19 mmol/L (20-31); Chloride 107 mmol/L (98-107); Glucose 139 mg/dL (74-106); Potassium 3.0 mmol/L (3.5-5.1)
[2025-06-16 05:44] LABS: Total Cells Counted 100.0 (100)
[2025-06-16] MEDS: LEVOTHYROXINE SODIUM 50 MCG TAB PO SCH (05:53)
[2025-06-16 07:02] LABS: Base Excess -10.3 mmol/L (-2.0-3.0)
--- NOTE | 2025-06-16 07:46 | DVH ---
CHEST RADIOGRAPH Indication: Follow up. Technique: Single frontal view of the chest was obtained Comparison: XY CHEST XRAY 1 VIEW on DOS: 06/15/25 FINDINGS: Lines and Tubes: The endotracheal tube terminates 3.4 cm above the donna. Right central venous lara ter terminates in the superior vena cava. The enteric tube courses below the left hemidiaphragm and t he tip extends outside the field of view. Lungs: Patchy left basilar airspace disease. Right lung is clear. Pleura: No effusion. No pneumothorax. Cardiomediastinal contours: Unremarkable Bones: No acute osseous abnormality. IMPRESSION: 1. Support tubes as described. 2. Left basilar airspace disease.
[2025-06-16] MEDS: SODIUM BICARB 8.4% 50Meq/50ml SYR Vial IV ONE (08:07)
[2025-06-16] MEDS: POTASSIUM CHL 20 Meq TABLET PO ONE (08:07)
[2025-06-16] MEDS: POTASSIUM CHL 20MEQ/100ML 100 ML IV SCH (08:07)
--- NOTE | 2025-06-16 08:21 | ECG ---
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
[2025-06-16] MEDS: PIPERACILLIN-TAZOB 3.375GM 100 ML IV SCH (10:13)
--- NOTE | 2025-06-16 10:26 | DVH ---
Date: 06/16/2025 08:54 AM Examination: XY KUB ABDOMEN SINGLE VIEW History: no bowel movements, high bun Comparison: US KIDNEY on DOS: 06/14/25, XY KUB ABDOMEN SINGLE VIEW on DOS: 04/30/25, US KIDNEY on DOS: , US RENAL on DOS: 09/15/24 TECHNIQUE: Frontal views of the abdomen was obtained. FINDINGS: Bowel gas pattern is unremarkable. The lung bases are unremarkable. No acute osseous abnormality identified. IMPRESSION: Nonobstructive bowel gas pattern. Nasogastric tube tip in the stomach. Large stool burden.
[2025-06-16] MEDS: POLYETHYLENE GLYCOL 17 GM PWDR PO ONE (10:29)
[2025-06-16] MEDS: ENOXAPARIN SOD 100 MG/1 ML SYRINGE SC ONE (11:51)
[2025-06-16] MEDS: CARVEDILOL 12.5 MG TAB PO ONE (11:51)
--- NOTE | 2025-06-16 13:30 | DVHPN2 ---
Progress Note Date Seen: Jun 16, 2025 Medical Necessity Reason Pt with a Central, PICC or Fol: Yes The following are medically ne: Central Line, Engel Catheter Subjective Review of Systems: RESPIRATORY:Abnormal Other Systems: Patient seen and examined by myself today in follow-up, patient remained intubated on ventilator Objective vital signs Vital Sign Date Time Temp Pulse Resp B/P (MAP) Pulse Ox O2 Delivery O2 Flow Rate FiO2 06/16/25 11:51 94 159/85 06/16/25 11:39 24 91 30 06/16/25 06:00 Mechanical Ventilator+ 06/16/25 04:00 98.0 98.0 Total Intake and Output 06/15/25 06/15/25 06/16/25 15:00 23:00 07:00 Intake Total 248.76 ml 606.75 ml 651.455 ml Output Total 1900 ml 900 ml Balance 248.76 ml -1293.25 ml -248.545 ml medications Current Medications Medications Dose Ordered Sig/Bárbara Route Start Time Stop Time Status Last Admin Dose Admin Ondansetron HCl 4 mg Q4HP PRN IV 06/09/25 01:00 Cancel Acetaminophen 650 mg Q6HP PRN PO 06/09/25 01:00 06/10/25 20:15 650 MG Nitroglycerin 0.4 mg Q5MINP PRN SL 06/09/25 01:00 Doxycycline Hyclate 100 ml @ 50 mls/hr Q12H IV 06/10/25 11:45 06/16/25 10:14 50 MLS/HR Propofol 100 ml @ 2.16 mls/hr Q24H IV 06/11/25 12:00 06/16/25 08:08 15.12 MLS/HR Fentanyl Citrate 250 ml @ 2.5 mls/hr Q24H IV 06/11/25 12:00 06/16/25 10:15 20 MLS/HR Midazolam HCl 50 ml @ 1 mls/hr Q24H IV 06/11/25 14:45 06/14/25 01:02 2 MLS/HR Ipratropium [place] 0.5 mg Q6HR NEB 06/14/25 10:15 06/16/25 11:39 0.5 MG Enteral Nutritional Formula 1,000 ml 40ML/HR GT 06/14/25 10:15 Amlodipine Besylate 10 mg DAILY PO 06/15/25 10:00 06/16/25 10:14 10 MG Amiodarone HCL/ Dextrose 200 ml @ 16.66 mls/ hr Q12H IV 06/14/25 17:45 06/16/25 08:08 16.66 MLS/HR Levalbuterol HCl 1.25 mg Q6HR NEB 06/15/25 00:00 06/16/25 11:39 1.25 MG Levothyroxine Sodium 50 mcg QAM@0600 PO 06/16/25 06:00 06/16/25 05:53 50 MCG Amino Acid Protein 30 ml BID GT 06/15/25 13:15 Lactulose 30 ml Q6HR PO 06/15/25 15:00 06/16/25 11:50 30 ML Piperacillin Sod/ Tazobactam Sod 100 ml @ 25 mls/hr Q12HR IV 06/16/25 10:00 06/16/25 10:13 25 MLS/HR Carvedilol 12.5 mg BID PO 06/16/25 22:00 Enoxaparin Sodium 90 mg DAILY SC 06/17/25 10:00 Examination: LUNGS:Normal, CVS:Normal, MSK:Normal laboratory and microbiology Laboratory Tests 06/16/25 03:25 Test 06/16/25 03:25 Range/Units Serum Glucose 139 H 74-106 mg/dL Microbiology Date/Time Source Procedure Growth Status 06/11/25 14:25 Nose MRSA Screen - Final Complete 06/08/25 23:11 Blood Blood Culture - Final NO GROWTH AFTER 5 DAYS OF INCUBATION. Complete Problem List/Assessment/Plan Problem List/Assessment/Plan Acute kidney injury on chronic kidney disease stage IIIA secondary to hemodynamic mediated, FeNa > 2% Dr[facility] Acute respiratory failure, intubated on ventilator Septic shock secondary to pneumonia COPD exacerbation Chronic diastolic Congestive heart failure AFib with RVR Anemia chronic kidney disease Hyperglycemia Hypokalemia Hypothyroidism Recommendations Kidney function is improving today Increased urine output Engel catheter Strict I&Os Hold diuresis IV antibiotic IV steroids KCL replacement Thyroid replacement Insulin sliding scale Kidney ultrasound reported within normal limit Cardiology consult We will continue to follow Plan discussed with: Other (Nurse) My Orders My Orders Orders - MARIO DALE MD Procedure Category Date Status Time Ventilator Orders RT 06/16/25 Transmitted 13:20 Abg W/ Co-Ox RT 06/16/25 Logged 15:00 Dietary Evaluation Review Comments: 1) If patient remains NPO > 7 days, consider EN/TPN to meet at least 75% of estimated daily needs 2) If gut is preferred, consider Nepro @ 25 mL/hr goal rate as tolerated. Flush with 200 mL free H2O Q6H. TF regimen will provide 1080 kcals, 49g Pro, and 1236 mL free H2O per 24 hrs. TF regimen will meet ~ 92% estimated energy needs and 52% estimated protein needs. 3) Advance to 60g CCHO renal cardiac diet when medically feasible, pending ST approval 4) Refer to outpatient RD/CDCES for weight management 5) Follow-up with cardiology, pulmonology, or nephrology 6) Continue to monitor I&O, labs, and skin integrity Expected Outcomes/Goals: 1) patient to receive nutritional support within 7 days of NPO status 2) labs to improve 3) diet to advance 4) f/u in 2-3 days Sepsis reassessment post fluid Capillary Refill: < 3 seconds MARIO DALE MD Jun 16, 2025 13:30
[2025-06-16] MEDS: FUROSEMIDE 40 MG/4 ML VIAL IV ONE (14:28)
[2025-06-16 15:29] LABS: Base Excess -9.3 mmol/L (-2.0-3.0)
[2025-06-16] MEDS ORDERED: SODIUM BICARB 50mEq/50ml Vial 75 ML in D5W 5% 1,000 ML IV SCH ×2 (16:30→17:15)
--- NOTE | 2025-06-16 16:39 | DVHPNRES ---
Progress Note Date Seen: Jun 16, 2025 Resident Creating Document: MARCELLO BURDEN RESIDENT Medical Necessity Reason Pt with a Central, PICC or Fol: Yes The following are medically ne: Central Line, Engel Catheter Subjective Review of Systems This is a 54-year-old female with recent ESBL bacteriemia, chronic heart failure with preserved ejection fraction, paroxysmal atrial fibrillation, severe aortic and mitral insufficiency, prediabetes, asthma and CKD 3A, morbid obesity, questionable rheumatoid arthritis and Crohn's disease who presented to the ER for the evaluation of shortness of breaths for the past 2 days. Associated with nonproductive cough and swelling at her ankles for the past 2 weeks. She denied fever or chills per chart review. Patient was kept on BiPAP which did not improve her condition and she had increased work of breathing and therefore patient was intubated and mechanically ventilated on 06/11. She has been getting IV diuretics with Lasix, and has been getting treatment for CHF exacerbation and pneumonia. Per , Patient was intubated in 2022 for pneumonia [place], following which she needed oxygen supplementation with 5 L NC. Past medical history:severe aortic insufficiency, moderate MR, moderate TR, COPD on 4 L home oxygen, CKD 3B, questionable rheumatoid arthritis and Crohn's disease Past surgical history: EBENEZER: Back surgery: Hysterectomy Home medication: Patient denies taking biological agents or methotrexate. Eliquis 5 mg p.o. b.i.d., amiodarone 200 mg daily, clonidine 0.1 mg b.i.d., furosemide 40 mg p.o. b.i.d., ibuprofen p.r.n., metoprolol 200 mg b.i.d., rosuvastatin, tizanidine Follow up Dr. Contreras. Overnight afebrile, respiratory rate 24 per minute, on minimal vent settings at 30% FiO2. WBC downtrending from 20 on arrival to 9.5, BUN/creatinine trending up, GFR decreasing. Social history: Quit smoking 20 years, was smoking marijuana till June 2023. Lives with 06/14-Patient seen and examined in ICU. Patient was having AFib with RVR, started IV amiodarone, discontinued p.o. amiodarone. Which improved patient's heart rate. Started Coreg and amlodipine. 06/15 - seen and examined, WBC count increased to 14 from 9. GFR and creatinine improving. Intermittently AFib with RVR, IV amiodarone increased from 0.5-1. CPAP trial failed, low tidal volumes 06/16 - overnight 98.2, wbc inc to 21, cr improving, AGMA, started zosyn, tap water enema. Objective vital signs Vital Sign Date Time Temp Pulse Resp B/P (MAP) Pulse Ox O2 Delivery O2 Flow Rate FiO2 06/16/25 16:05 103 24 158/81 (106) 95 30 06/16/25 14:00 Mechanical Ventilator+ 06/16/25 12:00 99.9 99.9 Total Intake and Output 06/15/25 06/15/25 06/16/25 15:00 23:00 07:00 Intake Total 248.76 ml 606.75 ml 651.455 ml Output Total 1900 ml 900 ml Balance 248.76 ml -1293.25 ml -248.545 ml medications Current Medications Medications Dose Ordered Sig/Bárbara Route Start Time Stop Time Status Last Admin Dose Admin Ondansetron HCl 4 mg Q4HP PRN IV 06/09/25 01:00 Cancel Acetaminophen 650 mg Q6HP PRN PO 06/09/25 01:00 06/10/25 20:15 650 MG Nitroglycerin 0.4 mg Q5MINP PRN SL 06/09/25 01:00 Doxycycline Hyclate 100 ml @ 50 mls/hr Q12H IV 06/10/25 11:45 06/16/25 10:14 50 MLS/HR Propofol 100 ml @ 2.16 mls/hr Q24H IV 06/11/25 12:00 06/16/25 14:28 19.44 MLS/HR Fentanyl Citrate 250 ml @ 2.5 mls/hr Q24H IV 06/11/25 12:00 06/16/25 10:15 20 MLS/HR Midazolam HCl 50 ml @ 1 mls/hr Q24H IV 06/11/25 14:45 06/14/25 01:02 2 MLS/HR Ipratropium [place] 0.5 mg Q6HR NEB 06/14/25 10:15 06/16/25 11:39 0.5 MG Enteral Nutritional Formula 1,000 ml 40ML/HR GT 06/14/25 10:15 Amlodipine Besylate 10 mg DAILY PO 06/15/25 10:00 06/16/25 10:14 10 MG Amiodarone HCL/ Dextrose 200 ml @ 16.66 mls/ hr Q12H IV 06/14/25 17:45 06/16/25 08:08 16.66 MLS/HR Levalbuterol HCl 1.25 mg Q6HR NEB 06/15/25 00:00 06/16/25 11:39 1.25 MG Levothyroxine Sodium 50 mcg QAM@0600 PO 06/16/25 06:00 06/16/25 05:53 50 MCG Amino Acid Protein 30 ml BID GT 06/15/25 13:15 Lactulose 30 ml Q6HR PO 06/15/25 15:00 06/16/25 11:50 30 ML Piperacillin Sod/ Tazobactam Sod 100 ml @ 25 mls/hr Q12HR IV 06/16/25 10:00 06/16/25 10:13 25 MLS/HR Carvedilol 12.5 mg BID PO 06/16/25 22:00 Enoxaparin Sodium 90 mg DAILY SC 06/17/25 10:00 Examination Morbidly obese female patient lying in the bed intubated and mechanically ventilated, RASS -1 General: Morbidly obese, afebrile, palor, mucosae are moist Cardiovascular: Tachycardic and irregular S1 and S2. No murmurs, gallops or rubs. No JVD elevation. 1+ pitting edema bilaterally Respiratory: Decreased bilateral air entry, coarse crackles on the left lower Abdomen: Soft, nontender, nondistended, normoactive bowel sounds, no rebound tenderness, no organomegaly, no masses Genitourinary: Deferred MSK/skin: Skin is dry and warm Neurological: Intact gag/pupillary light reflex Pupils are isocoric and reactive. Following commands, light sedation. laboratory and microbiology Laboratory Tests 06/16/25 03:25 Test 06/16/25 03:25 Range/Units Serum Glucose 139 H 74-106 mg/dL Microbiology Date/Time Source Procedure Growth Status 06/11/25 14:25 Nose MRSA Screen - Final Complete 06/08/25 23:11 Blood Blood Culture - Final NO GROWTH AFTER 5 DAYS OF INCUBATION. Complete Labs and/or images reviewed: Labs reviewed by me, Image(s) reviewed by me Problem List/Assessment/Plan Problem List/Assessment/Plan NEURO: Intubated, on sedatives CARDIOVASCULAR: Acute on chronic heart failure with preserved ejection fraction exacerbation Paroxysmal Atrial fibrillation with RVR Pulmonary edema Severe aortic insufficiency, mitral valve insufficiency, tricuspid regurg Per Cardiology:patient underwent a transesophageal echocardiogram on 03/26/2025 which revealed an EF of 60% with severe aortic insufficiency and with moderate mitral insufficiency. Continue with Preload and afterload reduction. ([id number]- VASc Score 2 points, HAS-BLED Score 0 points): We will recommend to continue antiarrhythmic therapy with amiodarone, DOAC therapy with Eliquis, and beta- octavio for rate control . Outpatient follow up with Dr. Melo in [place] for aortic valve replacement with possible TAVR as well as possible mitral clip. She has seen insurance adjustor in [place] one time and underwent a EBENEZER. The patient is scheduled to have a right and left heart catheterization later this month for TAVR workup. P.o. amlodipine, p.o. Coreg IV amiodarone protocol started 06/14 Lasix 40 mg IV b.i.d., IV Lasix 40 mg daily Discontinued Solu-Medrol Lovenox daily PULMONARY: Acute hypoxic respiratory failure status post intubation 06/11 Hx of Pna and intubation 2022 Sepsis secondary to Acute Gram-positive and Gram-negative pneumonia Likely COPD on 4L home O2 Chronic oxygen dependence History of asthma IV doxycycline, added zosyn 06/16 Nebulized treatments GASTROINTESTINAL: Transaminitis, likely nonalcoholic steatohepatitis liver ultrasound shows hepatic steatosis GENITOURINARY: NYASIA secondary to hemodynamically mediated/VMN ? Chronic kidney disease Anemia of CKD Kidney ultrasound shows Normal sonographic appearance of the kidneys. No hydronephrosis. Nephrology on board- inc TV to 550, d5w with bicarb added HEMATOLOGY: Anemia likely normocytic secondary to chronic kidney disease Iron profile demonstrates anemia of kidney disease METABOLIC: Morbid obesity Unspecified thyroid disorder likely hypothyroidism - amiodarone induced Diabetic education once extubated Levothyroxine 50 mcg daily INFECTIOUS DISEASE: Sepsis secondary to pneumonia Blood culture negative respiratory culture negative MRSA screen negative DIET: Tube feeding started with Nepro 06/14 DVT prophylax: lovenox GI prophylaxis: Protonix IV daily Bowel regimen: Lactulose q.6 hourly Code status: Full code LINES/DRAINS/ACCESS: IV access: Right IJ 06/11 Drips: Versed, fentanyl Engel catheter DISPOSITION: ICU Patient's status discussed with the nurse in which all questions have been answered Critical care time spent more than 59 minutes, including patient care, chart review, and updating the family. Excluding any procedures Case discussed with Dr. Benjamin CPAP trial in a.m.. Plan discussed with: Spouse, Other (nurse) My Orders My Orders Orders - MARCELLO BURDEN RESIDENT Procedure Category Date Status Time Chest Xray 1 View XY 06/16/25 Resulted 04:00 Abg W/ Co-Ox RT 06/16/25 Logged 04:00 Stool Occult Blood LAB 06/16/25 Logged 07:19 Respiratory Misc. RT 06/16/25 Transmitted Order 08:36 Blood Culture EVELIO 06/16/25 In Process 08:36 Respiratory Culture EVELIO 06/16/25 Logged W/ Gs 08:36 Kub Abdomen Single XY 06/16/25 Resulted View 08:37 Piperacillin-Tazob PHA 06/16/25 In Process 3.375gm (Zosyn 3.375g 10:00 Carvedilol Tablet PHA 06/16/25 In Process (Coreg Tablet) 22:00 Enoxaparin Sodium PHA 06/17/25 In Process (Lovenox) 10:00 Dietary Evaluation Review Comments: 1) If patient remains NPO > 7 days, consider EN/TPN to meet at least 75% of estimated daily needs 2) If gut is preferred, consider Nepro @ 25 mL/hr goal rate as tolerated. Flush with 200 mL free H2O Q6H. TF regimen will provide 1080 kcals, 49g Pro, and 1236 mL free H2O per 24 hrs. TF regimen will meet ~ 92% estimated energy needs and 52% estimated protein needs. 3) Advance to 60g CCHO renal cardiac diet when medically feasible, pending ST approval 4) Refer to outpatient RD/CDCES for weight management 5) Follow-up with cardiology, pulmonology, or nephrology 6) Continue to monitor I&O, labs, and skin integrity Expected Outcomes/Goals: 1) patient to receive nutritional support within 7 days of NPO status 2) labs to improve 3) diet to advance 4) f/u in 2-3 days Sepsis reassessment post fluid Capillary Refill: < 3 seconds Date of Service: Jun 16, 2025 Billing Provider: ELZA BENJAMIN MD Common Visit Codes: 10997-[id number] CARE 30-74 MIN MARCELLO BURDEN RESIDENT Jun 16, 2025 16:39 ELZA BENJAMIN MD Jun 17, 2025 11:47
[2025-06-16 17:59] LABS: COVID19 ANTIGEN SOFIA FIA NEGATIVE (NEGATIVE)
[2025-06-16] MEDS: SODIUM BICARB 50mEq/50ml Vial 75 ML in D5W 5% 1,000 ML IV SCH (18:07)
[2025-06-16] MEDS: Nepro With Carb Steady 1 Liter Bottle GT SCH (19:52)
[2025-06-16] MEDS: CARVEDILOL 12.5 MG TAB PO SCH (21:57)
--- NOTE | 2025-06-16 23:59 | DVHPN2 ---
Progress Note - Dictate Date Seen: Jun 16, 2025 Medical Necessity Reason Pt with a Central, PICC or Fol: Yes The following are medically ne: Central Line, Engel Catheter Subjective Patient was seen and evaluated in follow up in the ICU. Patient is intubated and sedated on ventilator. 30% FiO2. Patient failed CPAP trial this morning due to becoming tachypneic and having an increased WOB. WBC 21.7, K 3, CO2 19, BUN 76, PULLMAN CLERK 2.34, AST 78, ALT 58. Chest x-ray shows left basilar airspace disease. KUB: nonobstructive bowel gas pattern. Nasogastric tube tip in the stomach. Large stool burden. vital signs Vital Sign Date Time Temp Pulse Resp B/P (MAP) Pulse Ox O2 Delivery O2 Flow Rate FiO2 06/16/25 11:51 94 159/85 06/16/25 11:39 24 91 30 06/16/25 06:00 Mechanical Ventilator+ 06/16/25 04:00 98.0 98.0 Total Intake and Output 06/15/25 06/15/25 06/16/25 15:00 23:00 07:00 Intake Total 248.76 ml 606.75 ml 651.455 ml Output Total 1900 ml 900 ml Balance 248.76 ml -1293.25 ml -248.545 ml medications Current Medications Medications Dose Ordered Sig/Bárbara Route Start Time Stop Time Status Last Admin Dose Admin Ondansetron HCl 4 mg Q4HP PRN IV 06/09/25 01:00 Cancel Acetaminophen 650 mg Q6HP PRN PO 06/09/25 01:00 06/10/25 20:15 650 MG Nitroglycerin 0.4 mg Q5MINP PRN SL 06/09/25 01:00 Doxycycline Hyclate 100 ml @ 50 mls/hr Q12H IV 06/10/25 11:45 06/16/25 10:14 50 MLS/HR Propofol 100 ml @ 2.16 mls/hr Q24H IV 06/11/25 12:00 06/16/25 08:08 15.12 MLS/HR Fentanyl Citrate 250 ml @ 2.5 mls/hr Q24H IV 06/11/25 12:00 06/16/25 10:15 20 MLS/HR Midazolam HCl 50 ml @ 1 mls/hr Q24H IV 06/11/25 14:45 06/14/25 01:02 2 MLS/HR Ipratropium [place] 0.5 mg Q6HR NEB 06/14/25 10:15 06/16/25 11:39 0.5 MG Enteral Nutritional Formula 1,000 ml 40ML/HR GT 06/14/25 10:15 Amlodipine Besylate 10 mg DAILY PO 06/15/25 10:00 06/16/25 10:14 10 MG Amiodarone HCL/ Dextrose 200 ml @ 16.66 mls/ hr Q12H IV 06/14/25 17:45 06/16/25 08:08 16.66 MLS/HR Levalbuterol HCl 1.25 mg Q6HR NEB 06/15/25 00:00 06/16/25 11:39 1.25 MG Levothyroxine Sodium 50 mcg QAM@0600 PO 06/16/25 06:00 06/16/25 05:53 50 MCG Amino Acid Protein 30 ml BID GT 06/15/25 13:15 Lactulose 30 ml Q6HR PO 06/15/25 15:00 06/16/25 11:50 30 ML Piperacillin Sod/ Tazobactam Sod 100 ml @ 25 mls/hr Q12HR IV 06/16/25 10:00 06/16/25 10:13 25 MLS/HR Carvedilol 12.5 mg BID PO 06/16/25 22:00 Enoxaparin Sodium 90 mg DAILY SC 06/17/25 10:00 objective GENERAL: Ill appearing, intubated on ventilator. EYES: PERRL, EOMI. Anicteric. HENT: Moist mucous membranes. LUNGS: Decreased breath sounds. CARDIOVASCULAR: Regular rate and rhythm. ABDOMEN: Soft, nontender and nondistended. EXTREMITIES: No edema. NEUROLOGIC: No focal neurological deficits. SKIN: Warm, dry. laboratory and microbiology Laboratory Tests 06/16/25 03:25 Test 06/16/25 03:25 Range/Units Serum Glucose 139 H 74-106 mg/dL Problem List Chronic HFpEF, NYHA class IV. Paroxysmal atrial fibrillation, stage III, now NSR (on amiodarone/Elqiuis therapy). Severe aortic valve and mitral valve insufficiency. Acute hypoxic respiratory failure. Asthma. Chronic kidney disease. Thyroid disease. Prediabetes, newly diagnosed. Morbid obesity. History of tobacco use. Assessment/Plan Continued all current supportive medical care. IV Amiodarone. Amlodipine, Coreg. IV antibiotics as ordered. DVT prophylactics. Additional plan as per the hospital course. Critical care time of 45 minutes provided to include time spent evaluation of patient at bedside, when appropriate patient/family education for diagnosis, treatment plan, review of pertinent medical information and discussion of care with specialty providers and PCP. Mechanical ventilator parameters, treatment and adjustments have personally been reviewed by me and treatment plan by hide shaker has also been reviewed. Dietary Evaluation Review Comments: 1) If patient remains NPO > 7 days, consider EN/TPN to meet at least 75% of estimated daily needs 2) If gut is preferred, consider Nepro @ 25 mL/hr goal rate as tolerated. Flush with 200 mL free H2O Q6H. TF regimen will provide 1080 kcals, 49g Pro, and 1236 mL free H2O per 24 hrs. TF regimen will meet ~ 92% estimated energy needs and 52% estimated protein needs. 3) Advance to 60g CCHO renal cardiac diet when medically feasible, pending ST approval 4) Refer to outpatient RD/CDCES for weight management 5) Follow-up with cardiology, pulmonology, or nephrology 6) Continue to monitor I&O, labs, and skin integrity Expected Outcomes/Goals: 1) patient to receive nutritional support within 7 days of NPO status 2) labs to improve 3) diet to advance 4) f/u in 2-3 days Plan discussed with: Other Capillary Refill: < 3 seconds URBANO TRUONG MD Jun 16, 2025 13:05
[2025-06-17] VITALS (94 sets, daily range): BP systolic 95–233; BP diastolic 34–218; PULSE 90–146; RESP 10–24; TEMP 98.4–99.3; O2SAT 89–100
[2025-06-17 03:56] LABS: Anion Gap 20 (5-15); Chloride 104 mmol/L (98-107); Sodium 141 mmol/L (136-145)
[2025-06-17 03:58] LABS: Calcium 9.4 mg/dL (8.7-10.4); Hemoglobin 10.7 g/dL (12.2-16.2); Mean Corpuscular Hemoglobin 27.9 pg (28.0-32.0)
[2025-06-17 04:03] LABS: BUN/Creatinine Ratio 31.9 (10.0-20.0); Carbon Dioxide 17 mmol/L (20-31); Glucose 181 mg/dL (74-106); Hematocrit 33.1 % (36.0-46.0); Magnesium 2.3 mg/dL (1.6-2.6); Mean Corpuscular Volume 86.9 fL (80.0-100.0); Potassium 3.4 mmol/L (3.5-5.1)
[2025-06-17 04:04] LABS: Blood Urea Nitrogen 89 mg/dL (9-23)
[2025-06-17 05:18] LABS: Total Cells Counted 100.0 (100)
[2025-06-17] MEDS: POTASSIUM CHL 20MEQ/100ML 100 ML IV ONE (06:18)
--- NOTE | 2025-06-17 06:24 | DVH ---
CHEST RADIOGRAPH Indication: f/u Technique: Single frontal view of the chest was obtained Comparison: XY CHEST XRAY 1 VIEW on DOS: 06/16/25 FINDINGS: Lines and Tubes: There is a right central venous catheter with its tip terminating in the right atriu m. The enteric tube courses below the left hemidiaphragm and the tip extends outside the field of vie w. Endotracheal tube terminates 3.6 cm above the donna. Lungs: Improved aeration in the right lung. Pleura: No effusion. No pneumothorax. Cardiomediastinal contours: Unremarkable Bones: No acute osseous abnormality. IMPRESSION: 1. Improved aeration in the right lung.
--- NOTE | 2025-06-17 06:48 | ECG ---
[facility] Test Date: 2025-06-08 Test Time: 21:05:48 Pat Name: HATTIE LOUIS Department: Room: [address] [place] [address] A Gender: F Ramp Service Man: ANN : 1970 Requested By: NABIL MERCADO Order Number: [id number] Reading MD: Guilherme Miller Measurements Intervals [place] Rate: 94 P: 55 TN: 187 QRS: 71 QRSD: 93 T: 46 QT: 382 QTc: 478 Interpretive Statements Sinus rhythm Low voltage, precordial leads Electronically Signed On 06-22-2025 18:44:15 PDT by Guilherme Miller Please click the below link to view image of tracing.
[2025-06-17 07:20] LABS: Base Excess -7.8 mmol/L (-2.0-3.0)
[2025-06-17] MEDS: LACTULOSE 20Gm/30ML SOLN PO SCH (10:00)
[2025-06-17] MEDS ORDERED: FUROSEMIDE 40 MG/4 ML VIAL IV ONE (10:45)
[2025-06-17] MEDS: POTASSIUM EFFERVESENT TAB 25 MEQ GT ONE (11:03)
[2025-06-17] MEDS: ENOXAPARIN SOD 100 MG/1 ML SYRINGE SC SCH (11:03)
[2025-06-17] MEDS: PANTOPRAZOLE 40 MG/10 ML VIAL INJ IV SCH (11:03)
[2025-06-17] MEDS: SODIUM BICARB 50mEq/50ml Vial 100 ML in D5W 5% 1,000 ML IV SCH (11:13)
[2025-06-17] MEDS ORDERED: VANCOMYCIN PER PHARMACY 0 MG IV SCH (11:45)
[2025-06-17] MEDS: MEROPENEM 1GM IVPB 50 ML IV ONE (13:17)
[2025-06-17] MEDS: MEROPENEM 1GM IVPB 50 ML IV SCH (14:56)
[2025-06-17] MEDS: VANCOMYCIN 1GM/250ML KIT 250 ML IV ONE (15:20)
--- NOTE | 2025-06-17 15:33 | DVHPN2 ---
Progress Note Date Seen: Jun 17, 2025 Medical Necessity Reason Pt with a Central, PICC or Fol: Yes The following are medically ne: Central Line, Engel Catheter Subjective Review of Systems: RESPIRATORY:Abnormal Other Systems: Patient seen and examined by myself today in follow-up, patient remained intubated on ventilator Objective vital signs Vital Sign Date Time Temp Pulse Resp B/P (MAP) Pulse Ox O2 Delivery O2 Flow Rate FiO2 06/17/25 14:30 102 24 111/57 (75) 100 06/17/25 14:11 30 06/17/25 14:00 Mechanical Ventilator+ 06/17/25 12:00 98.4 98.4 Total Intake and Output 06/16/25 06/16/25 06/17/25 15:00 23:00 07:00 Intake Total 656.290 ml 1083.80 ml 1457.485 ml Output Total 750 ml 300 ml Balance 656.290 ml 333.80 ml 1157.485 ml medications Current Medications Medications Dose Ordered Sig/Bárbara Route Start Time Stop Time Status Last Admin Dose Admin Ondansetron HCl 4 mg Q4HP PRN IV 06/09/25 01:00 Cancel Acetaminophen 650 mg Q6HP PRN PO 06/09/25 01:00 06/10/25 20:15 650 MG Nitroglycerin 0.4 mg Q5MINP PRN SL 06/09/25 01:00 Propofol 100 ml @ 2.16 mls/hr Q24H IV 06/11/25 12:00 06/17/25 06:17 15.12 MLS/HR Fentanyl Citrate 250 ml @ 2.5 mls/hr Q24H IV 06/11/25 12:00 06/16/25 21:13 20 MLS/HR Midazolam HCl 50 ml @ 1 mls/hr Q24H IV 06/11/25 14:45 06/14/25 01:02 2 MLS/HR Ipratropium [place] 0.5 mg Q6HR NEB 06/14/25 10:15 06/17/25 12:36 0.5 MG Enteral Nutritional Formula 1,000 ml 40ML/HR GT 06/14/25 10:15 06/16/25 19:52 1,000 ML Amiodarone HCL/ Dextrose 200 ml @ 16.66 mls/ hr Q12H IV 06/14/25 17:45 06/17/25 08:24 16.66 MLS/HR Levalbuterol HCl 1.25 mg Q6HR NEB 06/15/25 00:00 06/17/25 12:36 1.25 MG Levothyroxine Sodium 50 mcg QAM@0600 PO 06/16/25 06:00 06/17/25 05:39 50 MCG Amino Acid Protein 30 ml BID GT 06/15/25 13:15 06/17/25 11:03 30 ML Carvedilol 12.5 mg BID PO 06/16/25 22:00 06/17/25 11:05 12.5 MG Sodium Bicarbonate 75 ml/ Dextrose 1,075 ml @ 700 mls/hr Q1H33M IV 06/16/25 17:15 06/16/25 18:47 Cancel Lactulose 30 ml BID PO 06/17/25 10:00 Pantoprazole Sodium 40 mg BID IV 06/17/25 10:00 06/17/25 11:03 40 MG Sodium Bicarbonate 100 ml/Dextrose 1,100 ml @ 75 mls/hr [id number] IV 06/17/25 10:00 06/17/25 11:13 75 MLS/HR Vancomycin HCl 0 ml @ 0 mls/hr UD IV 06/17/25 11:45 Meropenem 50 ml @ 17 mls/hr Q12H IV 06/17/25 01:00 06/17/25 14:56 17 MLS/HR Bumetanide 1 mg BIDD IV 06/17/25 18:00 Examination: LUNGS:Normal, CVS:Normal, MSK:Normal laboratory and microbiology Laboratory Tests 06/17/25 02:56 Test 06/17/25 02:56 Range/Units Serum Glucose 181 H 74-106 mg/dL Microbiology Date/Time Source Procedure Growth Status 06/16/25 10:30 Blood Blood Culture - Preliminary NO GROWTH AFTER 24 HOURS OF INCUBATION. Resulted 06/11/25 14:25 Nose MRSA Screen - Final Complete Problem List/Assessment/Plan Problem List/Assessment/Plan Acute kidney injury on chronic kidney disease stage IIIA secondary to hemodynamic mediated, FeNa > 2% Dr[facility] Acute respiratory failure, intubated on ventilator Septic shock secondary to pneumonia COPD exacerbation Chronic diastolic Congestive heart failure AFib with RVR Anemia chronic kidney disease Hyperglycemia Hypokalemia Hypothyroidism Recommendations Kidney function worsened today Increased urine output Engel catheter Strict I&Os IV bicarb drip Bumex 1 mg IV b.i.d. IV antibiotic IV steroids KCL replacement Thyroid replacement Insulin sliding scale Kidney ultrasound reported within normal limit Cardiology consult We will continue to follow Plan discussed with: Other (Nurse) My Orders My Orders Orders - MARIO DALE MD Procedure Category Date Status Time D5w 5% (Dextrose 5%) PHA 06/17/25 In Process W/Sodium Bicarb 50m 10:00 Bumetanide Injection PHA 06/17/25 In Process (Bumex Injection) 18:00 Dietary Evaluation Review Comments: 1) If patient remains NPO > 7 days, consider EN/TPN to meet at least 75% of estimated daily needs 2) If gut is preferred, consider Nepro @ 25 mL/hr goal rate as tolerated. Flush with 200 mL free H2O Q6H. TF regimen will provide 1080 kcals, 49g Pro, and 1236 mL free H2O per 24 hrs. TF regimen will meet ~ 92% estimated energy needs and 52% estimated protein needs. 3) Advance to 60g CCHO renal cardiac diet when medically feasible, pending ST approval 4) Refer to outpatient RD/CDCES for weight management 5) Follow-up with cardiology, pulmonology, or nephrology 6) Continue to monitor I&O, labs, and skin integrity Expected Outcomes/Goals: 1) patient to receive nutritional support within 7 days of NPO status 2) labs to improve 3) diet to advance 4) f/u in 2-3 days Sepsis reassessment post fluid Capillary Refill: < 3 seconds MARIO DALE MD Jun 17, 2025 15:33
--- NOTE | 2025-06-17 16:17 | DVH ---
EXAM: CT CT AB PEL WO CON-NO ORAL OR IV INDICATION: abd pain TECHNIQUE: Volumetric multidetector CT images of the abdomen and pelvis were obtained without contras t. All CT scans at this facility use dose modulation, iterative reconstruction, and/or weight based d osing when appropriate to reduce radiation dose to as low as reasonably achievable. COMPARISON: US LIVER on DOS: 06/14/25 FINDINGS: [LOWER CHEST]: Atelectasis in bilateral lung bases. Likely expiratory phase imaging findings with ate lectasis in bilateral lung bases versus pulmonary edema. [LIVER]: Normal hepatic size without suspicious focal lesion. [GALLBLADDER AND BILIARY TREE]: Surgically absent. [SPLEEN]: Unremarkable. [PANCREAS]: Unremarkable. [ADRENAL GLANDS]: Unremarkable [KIDNEYS]: No hydronephrosis. No nephroureterolithiasis. No suspicious focal lesion. [BLADDER]: Bladder decompressed with Engel catheter placement [REPRODUCTIVE ORGANS]: Hysterectomy [BOWEL/MESENTERY]: Nasogastric tube in place. significant dilation of the colon measuring up to 8 cm. Possible pneumatosis intestinalis along the ascending colon versus non dependent air. Evidence of p ortal venous gas. Imaging findings elevated concern for bowel ischemia. Stool distended low rectum m easuring up to 7.6 cm with slight mesorectal edema. Consideration for fecal impaction. [ASCITES]: Trace right paracolic gutter ascites [LYMPHADENOPATHY]: No pathologically enlarged lymph nodes by CT size criteria [VASCULATURE]: No aneurysmal dilatation. Inconspicuous presumed portal venous gas. [ABDOMINAL WALL]: Unremarkable. [MUSCULOSKELETAL]: No acute fracture or aggressive focal osseous lesion. Multifocal degenerative whalen ge of the visualized spine. IMPRESSION: 1. Significant dilation of the colon measuring up to 8 cm with possible pneumatosis intestinalis jana g the ascending colon versus non dependent air. 2. Evidence of portal venous gas. 3. Imaging findings elevate concern for bowel ischemia of the ascending colon/cecum. 4. Stool distended low rectum measuring up to 7.6 cm with slight mesorectal edema. 5. Consideration for fecal impaction and subsequent large bowel obstruction. 6. Recommend surgical consultation.
--- NOTE | 2025-06-17 17:26 | DVHINCON2 ---
Consultation - Surgical Date Seen: Jun 17, 2025 Referring Physician Reason for Consultation Concern for bowel, pneumatosis seen on CT scan History of Present Illness History of Present Illness Mrs. Penaloza is a 54-year-old female who was admitted to the hospital on June 08 due to shortness of breath, CHF exacerbation and pneumonia. Her condition has worsened through her admission and she is currently intubated in the ICU. Today I was consulted emergently due to findings of pneumatosis intestinalis with portal venous gas on CT. CT was performed after patient was having abdominal tenderness earlier today during her physical exam. Per nurse patient had a distended abdomen yesterday but was not complaining of pain or grimace to the touch, but today everything changed. She has continued to have bowel movements last 1 being today no blood seen on the movement. She was on trickle feeds until this am. Past Medical/Surgical History Past Medical/Surgical History PMH: recent ESBL bacteriemia, chronic heart failure with preserved ejection fraction, paroxysmal atrial fibrillation, severe aortic and mitral insufficien cy, prediabetes, asthma and CKD 3A, morbid obesity, questionable rheumatoid arthritis and Crohn's disease, diverticulosis PSH vaginal hysterectomy, cholecystectomy Allergies and medications Allergies: Coded Allergies: Erythromycin (Unverified Allergy, Severe, 01/19/25) Ondansetron (Unverified Allergy, Severe, hives, 06/09/25) Azithromycin (Verified Allergy, Unknown, 01/19/25) Home Meds Active Scripts Potassium Chloride (Potassium Chloride ER) 10 Meq Tab, 10 MEQ PO DAILY, #30 TAB Prov:MEENU LINDER MD 01/25/25 Furosemide (Furosemide) 40 Mg Tab, 1 TAB PO BID, #90 TAB Prov:MEENU LINDER MD 01/25/25 Apixaban Base (ELIQUIS) 5 Mg Tab, 5 MG PO BID, #90 TAB Prov:MEENU LINDER MD 06/13/24 Amiodarone Hcl (Amiodarone Hcl) 200 Mg Tab, 1 TAB PO DAILY, #30 TAB Prov:MEENU LINDER MD 06/13/24 Reported Medications Metoprolol Succinate (Metoprolol Succinate Er) 50 Mg Tab, 200 MG PO BID for 30 Days, MG 03/25/25 Alprazolam (Alprazolam) 0.5 Mg Tab, 1 TAB PO BID, #60 TAB 03/25/25 Lactobacillus (PROBIOTIC) Cap, 1 CAP PO DAILY for SUPPLEMENT, CAP 01/19/25 Cholecalciferol (VITAMIN D3) 2,000 Unit Tab, 1 TAB PO DAILY for SUPPLEMENT, #30 TAB 5 Refills 01/19/25 Tizanidine Hydrochloride (Zanaflex) 4 Mg Cap, 1 CAP PO QPM, #30 CAP 01/19/25 Prazosin Hcl (Minipres) 1 Mg Cp, 4 MG PO QPM for NIGHTMARES, CAP 01/19/25 Nystatin-Triamcinolone (Mycolog) 1 Applic Ap, 1 APPLIC TOP BID for FUNGAL RASH, #15 GRAMS 1 Refill 01/19/25 Ipratropium-Albuterol (Ipratropium Pettigrew/Albut) 1 Susana Susana, 1 SUSANA IN Q4HP PRN for SHORTNESS OF BREATH, ML 01/19/25 Hydroxyzine Hcl (Hydroxyzine Hcl) 25 Mg Tab, 25 MG PO Q6HP PRN for N&V, MG 01/19/25 Estradiol (Estradiol) 1 Mg Tab, 1 MG PO DAILY for VAGINAL DRYNESS, MG 01/19/25 Doxepin Hcl (Doxepin Hcl) 25 Mg Cap, 3 CAP PO QPM for INSOMNIA, #30 CAP 1 Refill 01/19/25 Bisacodyl (BISACODYL) 10 Mg Sup, 10 MG RE NO BM FOR 3 DAYS for BOWEL MANAGEMENT, SUPP 01/19/25 Hyoscyamine Sulfate (Levsin) 0.125 Mg Tab, 1 TAB PO Q4HPRN PRN for increased secretions, #120 TAB 5 Refills 01/19/25 Sertraline Hcl (Sertraline Hcl) 100 Mg Tab, 2 TAB PO DAILY for PTSD, #90 TAB 1 Refill 01/19/25 Clonidine Hydrochloride (Clonidine Hcl) 0.1 Mg Tab, 0.1 MG PO BID for bp>150 for 30 Days, MG 01/19/25 Rosuvastatin Calcium (Crestor) 40 Mg Tab, 40 MG PO DAILY, TAB 06/12/24 Albuterol Sulfate (Albuterol Sulfate Hfa) 108 Mcg/Act Aer, 2.5 MG IN QID, AER 06/12/24 Pantoprazole Sodium Sesquihydr (Pantoprazole Sodium) 40 Mg Tab, 40 MG PO DAILY, TAB 06/12/24 Review of systems Review of Systems: Deferred Examination Vital signs Vital Signs Date Time Temp Pulse Resp B/P (MAP) Pulse Ox O2 Delivery O2 Flow Rate FiO2 06/17/25 16:08 114/63 06/17/25 16:00 24 100 Mechanical Ventilator+ 30 30 06/17/25 16:00 108 06/17/25 12:00 98.4 98.4 Medications Current Medications Medications (Trade) Dose Ordered Sig/Bárbara Route PRN Reason Start Time Stop Time Status Last Admin Carvedilol (Coreg Tablet) 12.5 mg BID PO 06/16/25 22:00 06/17/25 11:05 Enoxaparin Sodium (Lovenox) 90 mg DAILY SC 06/17/25 10:00 06/17/25 11:45 DC 06/17/25 11:03 Sodium Bicarbonate 75 ml/ Dextrose 1,075 ml @ 75 mls/hr [id number] IV 06/16/25 18:00 06/17/25 10:02 DC 06/16/25 18:07 Lactulose 30 ml BID PO 06/17/25 10:00 06/17/25 17:19 DC Pantoprazole Sodium (Protonix) 40 mg BID IV 06/17/25 10:00 06/17/25 11:03 Sodium Bicarbonate 100 ml/Dextrose 1,100 ml @ 75 mls/hr [id number] IV 06/17/25 10:00 06/17/25 11:13 Vancomycin HCl 0 ml @ 0 mls/hr UD IV 06/17/25 11:45 Meropenem 50 ml @ 17 mls/hr Q12H IV 06/17/25 01:00 06/17/25 15:43 DC 06/17/25 14:56 Bumetanide (Bumex Injection) 1 mg BIDD IV 06/17/25 18:00 Cancel Meropenem 50 ml @ 17 mls/hr Q12H IV 06/18/25 01:00 Laboratory Labs Test 06/17/25 07:00 06/17/25 06:56 06/17/25 02:56 06/16/25 17:00 Range/Units Stool Occult Blood Positive Negative Stool Occult Blood Sample #3 Negative Blood Gas Specimen Type Arterial Blood Gas Sample Site Left radial Blood Gas Patient Temperature 37.0 Arterial Blood Date Drawn [id number] Arterial Blood pH 7.382 7.350-7.450 Arterial Blood Partial Pressure CO2 27.4 L 32.0-45.0 mmHg Arterial Blood Partial Pressure O2 97.8 83.0-108.0 mmHg Arterial Blood HCO3 15.9 L 21.0-28.0 mmol/L Arterial Blood Oxygen Saturation 96.9 94.0-98.0 % Arterial Blood Base Excess -7.8 L -2.0-3.0 mmol/L Arterial Blood Oxyhemoglobin 96.0 94.0-98.0 % Arterial Blood Carboxyhemoglobin 0.6 0.5-1.5 % Arterial Blood Methemoglobin 0.3 0.0-1.5 % Elfego Test Modified Blood Gas Total Hemoglobin 11.60 L 12.0-16.0 g/dL Blood Gas Set Respiration Rate 24.0 Blood Gas Modality Vent - ac FiO2 % 30.0 Blood Gas Tidal Volume 550.0 Blood Gas PEEP or CPAP 5.0 White Blood Count 35.1 #*H 4.4-10.8 10^3/uL Red Blood Count 3.82 L 4.0-5.20 10^6/uL Hemoglobin 10.7 L 12.2-16.2 g/dL Hematocrit 33.1 L 36.0-46.0 % Mean Corpuscular Volume 86.9 80.0-100.0 fL Mean Corpuscular Hemoglobin 27.9 L 28.0-32.0 pg Mean Corpuscular Hemoglobin Concent 32.1 32.0-36.0 g/dL Red Cell Distribution Width 16.1 H 11.8-14.3 % Platelet Count 410 140-450 10^3/uL Mean Platelet Volume 10.7 6.9-10.8 fL Neutrophils (%) (Auto) 37.0-80.0 % Lymphocytes (%) (Auto) 10.0-50.0 % Monocytes (%) (Auto) 0.0-12.0 % Basophils (%) (Auto) 0.0-2.0 % Neutrophils # (Auto) 1.6-8.6 10 ^3/uL Lymphocytes # (Auto) 0.4-5.4 10 ^3/uL Monocytes # (Auto) 0-1.3 10 ^3/uL Differential Total Cells Counted 100.0 100 Neutrophils % (Manual) 85 H 37.0-80.0 Band Neutrophils % (Manual) 3 Lymphocytes % (Manual) 9 L 10.0-50.0 Monocytes % (Manual) 1 0-12 Eosinophils % (Manual) 0 0-7 Basophils % (Manual) 0 0.0-2.0 Metamyelocytes % (manual) 1 Myelocytes % (Manual) 1 Promyelocytes % (Manual) 0 Blast Cells % (Manual) 0 Reactive Lymphocytes 0 Platelet Estimate Adequate Large Platelets Few Sodium Level 141 136-145 mmol/L Potassium Level 3.4 L 3.5-5.1 mmol/L Chloride Level 104 98-107 mmol/L Carbon Dioxide Level 17 L 20-31 mmol/L Anion Gap 20 H 5-15 Blood Urea Nitrogen 89 #*H 9-23 mg/dL Creatinine 2.79 H 0.550-1.02 mg/dL Glomerular Filtration Rate Calc 20 >90 mL/min BUN/Creatinine Ratio 31.9 H 10.0-20.0 Serum Glucose 181 H 74-106 mg/dL Calcium Level 9.4 8.7-10.4 mg/dL Magnesium Level 2.3 1.6-2.6 mg/dL Influenza Type A Antigen Negative Negative Influenza Type B Antigen Negative Negative SARS-CoV-2 Antigen (Rapid) Negative NEGATIVE Test 06/16/25 10:30 06/16/25 03:25 06/16/25 03:02 06/15/25 12:07 Range/Units Lactic Acid Level 1.5 0.4-2.0 mmol/L Erythrocyte Sedimentation Rate 53 H 0-20 mm/hr Total Bilirubin 0.3 0.2-1.0 mg/dL Aspartate Amino Transferase (AST) 78 H 13-40 U/L Alanine Aminotransferase (ALT) 58 H 7-40 U/L Alkaline Phosphatase 86 46-116 U/L Total Protein 7.5 5.7-8.2 g/dL Albumin 4.4 3.2-4.8 g/dL C-Reactive Protein High Sensitivity 5.57 H <1.0 mg/dL Prothrombin Time 12.0 H 9.3-11.8 sec Prothrombin Time INR 1.15 0.9-1.15 Activated Partial Thromboplast Time 24.4 L 24.5-34.5 SEC Test 06/15/25 09:23 06/15/25 03:24 06/14/25 11:50 06/13/25 03:50 Range/Units Free Thyroxine (T4) Calculated 0.74 L 0.89-1.76 ng/dL Total Triiodothyronine (TT3) 0.85 0.60-1.81 ng/mL Giant Platelets Few Hemoglobin A1c 4.9 <5.7 % A1C Thyroid Stimulating Hormone (TSH) 18.39 H 0.55-4.78 uIU/mL Urine Creatinine 27.77 L 30.0-125.0 mg/dL Urine Protein/Creatinine Ratio 1.72 Urine Sodium 73 40-220 mmol/L Urine Total Protein 47.7 H 1-14 mg/dL Eosinophils (%) (Auto) 0.1 0.0-7.0 % Eosinophils # (Auto) 0 0-0.8 10 ^3/uL Basophils # (Auto) 0 0-0.2 10 ^3/uL Nucleated Red Blood Cells 0.1 % Iron Level 27 L 50-170 ug/dL Total Iron Binding Capacity 319 250-425 ug/dL Percent Iron Saturation 8.5 L 15-50 % Ferritin 298.8 H 10-291 ng/mL Test 06/11/25 14:00 06/11/25 06:40 06/09/25 16:55 06/08/25 22:13 Range/Units Blood Gas Critical Value Read Back Yes Blood Gas Notified Whom Dr. robert galloway Blood Gas Notified Time [id number] Blood Gas Notified By Rt blessing rush Blood Gas Spontaneous Rate 26 Blood Gas EPAP 5 Blood Gas IPAP 12 Urine Color Colorless Yellow Urine Clarity Clear Clear Urine pH 5.5 5.0-9.0 Urine Specific Wykoff 1.007 1.001-1.035 Urine Protein Negative Negative Urine Ketones Negative Negative Urine Blood 2+ H Negative /uL Urine Nitrite Negative Negative Urine Bilirubin Negative Negative Urine Urobilinogen Normal Negative mg/dL Urine Leukocyte Esterase Negative Negative /uL Urine RBC 38 0 - 4 /hpf Urine Microscopic WBC 1 0-5 /HPF Urine Squamous Epithelial Cells Few <5 /hpf Urine Bacteria None seen None Seen /hpf Urine Glucose Normal Normal mg/dL Troponin I High Sensitivity < 3 L </=34 ng/L Test 06/08/25 22:07 06/08/25 21:15 Range/Units Venous Blood pH 7.371 7.320-7.430 Venous Blood pCO2 at Patient Temp 38.8 38.0-54.0 mmHg Venous Blood pO2 at Patient Temp 46.3 23.0-48.0 mmHg Venous Blood HCO3 22.0 22.0-29.0 mmol/L Venous Blood Base Excess -2.9 L -2.0-3.0 mmol/L B-Type Natriuretic Peptide 392.00 0-100 pg/mL Microbiology Date/Time Source Procedure Growth Status 06/16/25 10:30 Blood Blood Culture - Preliminary NO GROWTH AFTER 24 HOURS OF INCUBATION. Resulted 06/11/25 14:25 Nose MRSA Screen - Final Complete Examination: GENERAL:Abnormal (Intubated and sedated), HEENT:Abnormal (ETT in place), ABDOMEN:Abnormal (Distended, no scars, depressible, diffuse tenderness with rebound, tenderness is worse on the right hemiabdomen) Problem List/Assessment/Plan Problems: (1) Pneumatosis intestinalis Assessment and Plan Mrs. Penaloza is a 54-year-old female who was admitted on June 08 due to shortness of breath, pneumonia CHF exacerbation. She has continued to worsen during the hospital stay and is currently intubated in the ICU. I was consulted due to CT findings of pneumatosis of the right colon with portal venous gas. I reviewed the images myself and agree with the radiologic read, this is concerning for bowel and likely right colon. Also seen on the CT is dilation of the transverse colon. Patient will require emergent surgery. Surgical management along with the imaging findings were discussed with the family members and they agree with surgical plan. We will proceed with exploratory laparotomy, emergently. Procedure, risks, benefits, complications, and alternatives were discussed at length with the family. I also explained to the family that despite surgical intervention her condition may continue to worsen and or get acutely worse during the surgical intervention. 1. 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 NPO 3. Continue Zosyn Plan discussed with Plan discussed with: Daughter, Other (Sister, mother, boyfriend) Visit Coding Surgery Date of Service if different f: Jun 17, 2025 Billing Provider: SONAM ALCARAZ MD Surgery Visit Codes: 92916 - INP CONSULT <110 MIN SONAM ALCARAZ MD Jun 17, 2025 17:26
--- NOTE | 2025-06-17 17:55 | DVHPNRES ---
Progress Note Date Seen: Jun 17, 2025 Resident Creating Document: MARCELLO BURDEN RESIDENT Medical Necessity Reason Pt with a Central, PICC or Fol: Yes The following are medically ne: Central Line, Engel Catheter Subjective Review of Systems This is a 54-year-old female with recent ESBL bacteriemia, chronic heart failure with preserved ejection fraction, paroxysmal atrial fibrillation, severe aortic and mitral insufficiency, prediabetes, asthma and CKD 3A, morbid obesity, questionable rheumatoid arthritis and Crohn's disease who presented to the ER for the evaluation of shortness of breaths for the past 2 days. Associated with nonproductive cough and swelling at her ankles for the past 2 weeks. She denied fever or chills per chart review. Patient was kept on BiPAP which did not improve her condition and she had increased work of breathing and therefore patient was intubated and mechanically ventilated on 06/11. She has been getting IV diuretics with Lasix, and has been getting treatment for CHF exacerbation and pneumonia. Per , Patient was intubated in 2022 for pneumonia [place], following which she needed oxygen supplementation with 5 L NC. Past medical history:severe aortic insufficiency, moderate MR, moderate TR, COPD on 4 L home oxygen, CKD 3B, questionable rheumatoid arthritis and Crohn's disease Past surgical history: EBENEZER: Back surgery: Hysterectomy Home medication: Patient denies taking biological agents or methotrexate. Eliquis 5 mg p.o. b.i.d., amiodarone 200 mg daily, clonidine 0.1 mg b.i.d., furosemide 40 mg p.o. b.i.d., ibuprofen p.r.n., metoprolol 200 mg b.i.d., rosuvastatin, tizanidine Follow up Dr. Contreras. Overnight afebrile, respiratory rate 24 per minute, on minimal vent settings at 30% FiO2. WBC downtrending from 20 on arrival to 9.5, BUN/creatinine trending up, GFR decreasing. Social history: Quit smoking 20 years, was smoking marijuana till June 2023. Lives with 06/14-Patient seen and examined in ICU. Patient was having AFib with RVR, started IV amiodarone, discontinued p.o. amiodarone. Which improved patient's heart rate. Started Coreg and amlodipine. 06/15 - seen and examined, WBC count increased to 14 from 9. GFR and creatinine improving. Intermittently AFib with RVR, IV amiodarone increased from 0.5-1. CPAP trial failed, low tidal volumes 06/16 - overnight 98.2, wbc inc to 21, cr improving, AGMA, started zosyn, tap water enema. 06/17 - overnight 99.9 F, intermittent tachycardia, abdomen is distended and tender, hypoactive, CT abdomen completed, showed Significant dilation of the colon measuring up to 8 cm with possible pneumatosis intestinalis along the ascending colon versus non dependent air. Evidence of portal venous gas. Imaging findings elevate concern for bowel ischemia of the ascending colon/cecum. Surgeon consulted-recommended surgery, consent signed patient undergoing ex laparotomy. NPO, pantoprazole b.i.d., DC antihypertensives. Lactic acid unremarkable, vanc and meropenem started. Nephrology started D5W bicarb drip. Objective vital signs Vital Sign Date Time Temp Pulse Resp B/P (MAP) Pulse Ox O2 Delivery O2 Flow Rate FiO2 06/17/25 16:08 114/63 06/17/25 16:00 24 100 Mechanical Ventilator+ 30 30 06/17/25 16:00 108 06/17/25 12:00 98.4 98.4 Total Intake and Output 06/16/25 06/16/25 06/17/25 15:00 23:00 07:00 Intake Total 656.290 ml 1083.80 ml 1457.485 ml Output Total 750 ml 300 ml Balance 656.290 ml 333.80 ml 1157.485 ml medications Current Medications Medications Dose Ordered Sig/Bárbara Route Start Time Stop Time Status Last Admin Dose Admin Ondansetron HCl 4 mg Q4HP PRN IV 06/09/25 01:00 Cancel Acetaminophen 650 mg Q6HP PRN PO 06/09/25 01:00 06/10/25 20:15 650 MG Nitroglycerin 0.4 mg Q5MINP PRN SL 06/09/25 01:00 Propofol 100 ml @ 2.16 mls/hr Q24H IV 06/11/25 12:00 06/17/25 16:06 8.64 MLS/HR Fentanyl Citrate 250 ml @ 2.5 mls/hr Q24H IV 06/11/25 12:00 06/17/25 16:08 7.5 MLS/HR Midazolam HCl 50 ml @ 1 mls/hr Q24H IV 06/11/25 14:45 06/14/25 01:02 2 MLS/HR Ipratropium Carver 0.5 mg Q6HR NEB 06/14/25 10:15 06/17/25 12:36 0.5 MG Enteral Nutritional Formula 1,000 ml 40ML/HR GT 06/14/25 10:15 Hold 06/16/25 19:52 1,000 ML Amiodarone HCL/ Dextrose 200 ml @ 16.66 mls/ hr Q12H IV 06/14/25 17:45 06/17/25 08:24 16.66 MLS/HR Levalbuterol HCl 1.25 mg Q6HR NEB 06/15/25 00:00 06/17/25 12:36 1.25 MG Levothyroxine Sodium 50 mcg QAM@0600 PO 06/16/25 06:00 06/17/25 05:39 50 MCG Amino Acid Protein 30 ml BID GT 06/15/25 13:15 Hold 06/17/25 11:03 30 ML Carvedilol 12.5 mg BID PO 06/16/25 22:00 Hold 06/17/25 11:05 12.5 MG Sodium Bicarbonate 75 ml/ Dextrose 1,075 ml @ 700 mls/hr Q1H33M IV 06/16/25 17:15 06/16/25 18:47 Cancel Pantoprazole Sodium 40 mg BID IV 06/17/25 10:00 06/17/25 11:03 40 MG Sodium Bicarbonate 100 ml/Dextrose 1,100 ml @ 75 mls/hr [id number] IV 06/17/25 10:00 06/17/25 11:13 75 MLS/HR Vancomycin HCl 0 ml @ 0 mls/hr UD IV 06/17/25 11:45 Bumetanide 1 mg BIDD IV 06/17/25 18:00 Cancel Meropenem 50 ml @ 17 mls/hr Q12H IV 06/18/25 01:00 Examination Morbidly obese female patient lying in the bed intubated and mechanically ventilated, RASS -1 General: Morbidly obese, afebrile, palor, mucosae are moist Cardiovascular: Tachycardic and irregular S1 and S2. No murmurs, gallops or rubs. No JVD elevation. 1+ pitting edema bilaterally Respiratory: Decreased bilateral air entry, coarse crackles on the left lower Abdomen: Soft, tender, distended, hypoactive bowel sounds, no rebound tenderness, no organomegaly, no masses. Rectal exam completed, shows liquid stool in the vault, no masses felt, stool color reddish Genitourinary: Deferred MSK/skin: Skin is dry and warm Neurological: Intact gag/pupillary light reflex Pupils are isocoric and reactive. Following commands, light sedation. laboratory and microbiology Laboratory Tests 06/17/25 02:56 Test 06/17/25 02:56 Range/Units Serum Glucose 181 H 74-106 mg/dL Microbiology Date/Time Source Procedure Growth Status 06/16/25 10:30 Blood Blood Culture - Preliminary NO GROWTH AFTER 24 HOURS OF INCUBATION. Resulted 06/11/25 14:25 Nose MRSA Screen - Final Complete Labs and/or images reviewed: Labs reviewed by me, Image(s) reviewed by me Problem List/Assessment/Plan Problem List/Assessment/Plan NEURO: Intubated, on sedatives CARDIOVASCULAR: Acute on chronic heart failure with preserved ejection fraction exacerbation Paroxysmal Atrial fibrillation with RVR Pulmonary edema Severe aortic insufficiency, mitral valve insufficiency, tricuspid regurg Per Cardiology:patient underwent a transesophageal echocardiogram on 03/26/2025 which revealed an EF of 60% with severe aortic insufficiency and with moderate mitral insufficiency. Continue with Preload and afterload reduction. ([id number]- VASc Score 2 points, HAS-BLED Score 0 points): We will recommend to continue antiarrhythmic therapy with amiodarone, DOAC therapy with Eliquis, and beta- octavio for rate control . Outpatient follow up with Dr. Melo in [place] for aortic valve replacement with possible TAVR as well as possible mitral clip. 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 The patient is scheduled to have a right and left heart catheterization later this month for TAVR workup. Discontinued P.o. amlodipine, p.o. Coreg IV amiodarone protocol started 06/14 Discontinued Lasix 40 mg IV b.i.d., IV Lasix 40 mg daily Discontinued Solu-Medrol Lovenox daily PULMONARY: Acute hypoxic respiratory failure status post intubation 06/11 Hx of Pna and intubation 2022 Sepsis secondary to Acute Gram-positive and Gram-negative pneumonia Likely COPD on 4L home O2 Chronic oxygen dependence History of asthma Discontinued IV doxycycline, added zosyn 06/16, started IV vancomycin and IV meropenem 06/17 Nebulized treatments GASTROINTESTINAL: Transaminitis, 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 Ischemic colitis liver ultrasound shows hepatic steatosis CT abdomen completed, showed Significant dilation of the colon measuring up to 8 cm with possible pneumatosis intestinalis along the ascending colon versus non dependent air. Evidence of portal venous gas. Imaging findings elevate concern for bowel ischemia of the ascending colon/cecum. Surgeon consulted-recommended ex laparotomy GENITOURINARY: NYASIA secondary to hemodynamically mediated/VMN ? Chronic kidney disease Anemia of CKD Kidney ultrasound shows Normal sonographic appearance of the kidneys. No hydronephrosis. 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 Bowel regimen: Lactulose discontinued Code status: Full code LINES/DRAINS/ACCESS: IV access: Right IJ 06/11 Drips: Versed, fentanyl Engel catheter DISPOSITION: ICU Patient's status discussed with the patient's spouse at bedside, nurse in which all questions have been answered Critical care time spent more than 89 minutes, including patient care, chart review, and updating the family. Excluding any procedures Case discussed with Dr. Benjamin Plan discussed with: Spouse (At bedside) My Orders My Orders Orders - MARCELLO BURDEN RESIDENT Procedure Category Date Status Time Pantoprazole PHA 06/17/25 In Process (Protonix) 10:00 Stool Bacterial EVELIO 06/17/25 In Process Culture 08:21 Stool Occult Blood LAB 06/17/25 Logged 10:30 Type And Screen BBK 06/17/25 Logged 17:24 PTPTT LAB 06/17/25 Logged 17:24 Dietary Evaluation Review Comments: 1) If patient remains NPO > 7 days, consider EN/TPN to meet at least 75% of estimated daily needs 2) If gut is preferred, consider Nepro @ 25 mL/hr goal rate as tolerated. Flush with 200 mL free H2O Q6H. TF regimen will provide 1080 kcals, 49g Pro, and 1236 mL free H2O per 24 hrs. TF regimen will meet ~ 92% estimated energy needs and 52% estimated protein needs. 3) Advance to 60g CCHO renal cardiac diet when medically feasible, pending ST approval 4) Refer to outpatient RD/CDCES for weight management 5) Follow-up with cardiology, pulmonology, or nephrology 6) Continue to monitor I&O, labs, and skin integrity Expected Outcomes/Goals: 1) patient to receive nutritional support within 7 days of NPO status 2) labs to improve 3) diet to advance 4) f/u in 2-3 days Sepsis reassessment post fluid Capillary Refill: < 3 seconds Date of Service: Jun 17, 2025 Billing Provider: ELZA BENJAMIN MD Common Visit Codes: 40536-[id number] CARE 30-74 MIN, 40806-[id number] CARE-EACH +30MIN MARCELLO BURDEN RESIDENT Jun 17, 2025 17:55 ELZA BENJAMIN MD Jun 19, 2025 11:59
[2025-06-17] MEDS ORDERED: BUMETANIDE 1mg/4ml VIAL (0.25mg/ml) IV SCH (18:00)
[2025-06-17 18:23] LABS: INR 1.2 (0.9-1.15); Partial Thromboplastin Time 33.0 SEC (24.5-34.5); Prothrombin Time 12.5 sec (9.3-11.8)
[2025-06-17] MEDS ORDERED: MORPHINE SULF PF 5 MG/10 ML VIAL ONE (18:38)
[2025-06-17] MEDS ORDERED: MIDAZOLAM HCL 2MG/2ML 2ml VIAL (1mg/ml) ONE ×2 (18:38→18:39)
[2025-06-17] MEDS ORDERED: KETAMINE 50mg/ML 1ml syringe ONE (18:38)
[2025-06-17] MEDS ORDERED: fentaNYL CITRATE 100 MCG/2 ML VL ONE ×2 (18:38→20:22)
[2025-06-17] MEDS ORDERED: ETOMIDATE (2MG/ML) 20ML VIAL IV ONE (18:39)
[2025-06-17] MEDS ORDERED: SODIUM CHLORIDE LOCK 50 ML ONE (18:39)
[2025-06-17] MEDS ORDERED: ROCURONIUM 10MG/ML 10ML VIAL IV ONE (18:39)
[2025-06-17] MEDS ORDERED: LIDOCAINE 1% INJ PF 5ML AMP ONE (18:39)
[2025-06-17] MEDS ORDERED: LIDOCAINE HCL 100 MG/5ML (2%) SYRG INJ IV ONE (21:17)
[2025-06-17] MEDS: PHENYLEPHRINE IV 250 ML IV ONE (22:00)
[2025-06-17] MEDS: BUMETANIDE 1mg/4ml VIAL (0.25mg/ml) IV ONE (22:00)
[2025-06-17] MEDS: PHENYLEPHRINE IV 250 ML IV SCH (22:00)
[2025-06-17] MEDS: POVIDONE IODINE 10 % TOPICAL OINT 30GM TOP ONE (22:00)
[2025-06-17] MEDS: NOREPINEPHRINE 8 MG/250ML KIT 250 ML IV SCH (22:00)
[2025-06-17] MEDS: PROPOFOL 100 ML IV ONE (22:00)
--- NOTE | 2025-06-17 22:18 | DVHOP2 ---
Operative Report - 2 Report Details Date: 06/17/25 Preop Diagnosis: Pneumatosis intestinalis, megacolon Postop Diagnosis: Megacolon with necrotic segments of the ascending and transverse colon Surgeon: Jose Parada MD Hall Tender: Kan Rosado NP Anesthesiologist: Dr. Avila Anesthesia: General Consent: The patient was informed of the risks and benefits of the procedure. These include but are not limited to complications of anesthesia, postoperative infection, incomplete relief of symptoms, recurrence of symptoms, damage to blood vessels, nerves and tendons, deep venous thrombosis, pulmonary embolism and possible need for repeat surgery in the future. Estimated Blood Loss: 15 mL Findings: Ascending and transverse megacolon with patchy areas of necrosis throughout Indications for Surgery: CT showing megacolon with pneumatosis of the ascending and transverse colon Name of Procedure Performed Exploratory laparotomy, mobilization of hepatic flexure, mobilization of splenic flexure, resection of ascending and transverse colon, temporary abdominal closure Procedure Details Procedure Details: Patient arrived to the operating room from the ICU intubated. She was transferred to the operating table and placed in the supine position with arms extended. General endotracheal anesthesia was induced. Time-out was observed. Patient was prepped and draped in the standard sterile surgical fashion with chlorhexidine. I then proceeded to make a midline laparotomy that extended from 2 cm below the umbilicus to the epigastric area. I then dissected down to the fascia with cautery. Then I cauterized the small area of the fascia, creating a weakness and entering the peritoneal cavity through that area. I then carefully extended the fascial incision to the length of the skin incision. I then imme diately noted foul smell and inflammatory fluid coming from the peritoneal cavity. Large bowel was extremely distended making it very difficult to visualize. Omentum and small bowel was exteriorized. At this point we noted patchy areas of necrosis throughout the transverse colon and the ascending colon. The colon was extremely scarred in/attached to the retroperitoneum and it was very difficult to mobilize. I 1st started by opening the lesser sac and worked my way through to the hepatic flexure. The hepatic flexure was taken down and immediately more of the transverse colon was able to mobilized into the midline incision. I then continued opening the lesser sac towards the splenic flexure, splenic flexure was taken down. Transverse colon was now completely freely mobile and in the midline. I then proceeded to analyze the entire colon and noticed patchy areas of necrosis throughout the ascending colon and transverse colon all the way to the splenic flexure, but no cash perforation. I noted that the descending colon immediately past the splenic flexure was in good condition and free from necrosis. This was the selected transection spot. I then made a mesenteric rent in the mesocolon of the descending colon. I resected the colon with a 75 mm DEBBIE blue load. Then utilizing the ligature super jaw device I freed the colon from its mesocolon starting distally at the splenic flexure and working my way to the cecum, I stayed immediately adjacent to the colon wall. Once at the cecum, I transected the terminal ileum 2 cm proximal to the ileocecal valve. I created a mesenteric rent and transected with a 75 mm DEBBIE blue load. At this point the specimen was passed out for pathology. Given that the patient's condition decompensated once we started mobilizing the colon and she was on 2 pressors we decided to conclude the surgery at this point. First we surveyed for hemostasis and noted a small bleeding vessel coming from the terminal ileum mesentery. I placed a [id number] 2-0 silk suture around it, hemostasis achieved. I then proceeded to irrigate the peritoneal cavity with warm saline. Fluid was then suctioned. I then decided to surgery again for hemostasis, and noted slow raw surface ooze coming from the mesentery area of the cecum, splenic flexure, and hepatic flexure. I then placed Surgi snow in those areas, hemostasis achieved. All counts complete and correct. Given that we will have a temporary abdominal closure device in the hospital, I needed to make a temporary dressing. I placed 2 moist laparotomy pads covering the entirety of the visible bowel. I then placed the sterile fluid warmer plastic over the skin incision and stapled it in place. This was all covered with Ioban. Patient in critical condition following the operation. Patient was transferred to the ICU. Condition Critical Disposition Still a Patient JOSE ALCARAZ MD Jun 17, 2025 22:18
[2025-06-17] MEDS: LACTATED RINGER'S 1,000 ML IV SCH (22:30)
[2025-06-17 22:44] LABS: Base Excess -10.8 mmol/L (-2.0-3.0)
[2025-06-17] MEDS: HYDROCORTISONE SOD SUCC 100 MG/2ML INJ VIAL IV ONE (22:57)
[2025-06-17 23:05] LABS: Hematocrit 29.2 % (36.0-46.0); Hemoglobin 9.3 g/dL (12.2-16.2); Mean Corpuscular Hemoglobin 27.5 pg (28.0-32.0); Mean Corpuscular Volume 86.9 fL (80.0-100.0)
[2025-06-17 23:19] LABS: Alanine Aminotransferase 27 U/L (7-40); Anion Gap 17 (5-15); BUN/Creatinine Ratio 33.2 (10.0-20.0); Bilirubin, Total 0.3 mg/dL (0.2-1.0); Chloride 102 mmol/L (98-107); Magnesium 2.0 mg/dL (1.6-2.6); Potassium 5.1 mmol/L (3.5-5.1)
[2025-06-17 23:22] LABS: Albumin 2.6 g/dL (3.2-4.8); Alkaline Phosphatase 182 U/L (46-116); Calcium 8.1 mg/dL (8.7-10.4); Carbon Dioxide 17 mmol/L (20-31); Glucose 217 mg/dL (74-106); Sodium 136 mmol/L (136-145); Total Protein 4.9 g/dL (5.7-8.2)
[2025-06-17 23:24] LABS: Blood Urea Nitrogen 103 mg/dL (9-23)
--- NOTE | 2025-06-17 23:27 | DVHPN2 ---
Progress Note - Dictate Date Seen: Jun 17, 2025 Medical Necessity Reason Pt with a Central, PICC or Fol: Yes The following are medically ne: Central Line, Engel Catheter Subjective Patient was seen and evaluated in follow up in the ICU. Patient is intubated and sedated on ventilator. 30% FiO2. WBC 35.1, K 3.4, CO2 17, BUN 89, [employer] 2.79. Stool occult blood is positive. Chest x-ray shows improved aeration in the right lung. vital signs Vital Sign Date Time Temp Pulse Resp B/P (MAP) Pulse Ox O2 Delivery O2 Flow Rate FiO2 06/17/25 11:05 102 130/82 06/17/25 10:31 24 100 30 06/17/25 10:00 Mechanical Ventilator+ 06/17/25 08:00 98.8 98.8 Total Intake and Output 06/16/25 06/16/25 06/17/25 15:00 23:00 07:00 Intake Total 656.290 ml 1083.80 ml 1457.485 ml Output Total 750 ml 300 ml Balance 656.290 ml 333.80 ml 1157.485 ml medications Current Medications Medications Dose Ordered Sig/Bárbara Route Start Time Stop Time Status Last Admin Dose Admin Ondansetron HCl 4 mg Q4HP PRN IV 06/09/25 01:00 Cancel Acetaminophen 650 mg Q6HP PRN PO 06/09/25 01:00 06/10/25 20:15 650 MG Nitroglycerin 0.4 mg Q5MINP PRN SL 06/09/25 01:00 Propofol 100 ml @ 2.16 mls/hr Q24H IV 06/11/25 12:00 06/17/25 06:17 15.12 MLS/HR Fentanyl Citrate 250 ml @ 2.5 mls/hr Q24H IV 06/11/25 12:00 06/16/25 21:13 20 MLS/HR Midazolam HCl 50 ml @ 1 mls/hr Q24H IV 06/11/25 14:45 06/14/25 01:02 2 MLS/HR Ipratropium [place] 0.5 mg Q6HR NEB 06/14/25 10:15 06/17/25 06:32 0.5 MG Enteral Nutritional Formula 1,000 ml 40ML/HR GT 06/14/25 10:15 06/16/25 19:52 1,000 ML Amiodarone HCL/ Dextrose 200 ml @ 16.66 mls/ hr Q12H IV 06/14/25 17:45 06/17/25 08:24 16.66 MLS/HR Levalbuterol HCl 1.25 mg Q6HR NEB 06/15/25 00:00 06/17/25 06:32 1.25 MG Levothyroxine Sodium 50 mcg QAM@0600 PO 06/16/25 06:00 06/17/25 05:39 50 MCG Amino Acid Protein 30 ml BID GT 06/15/25 13:15 06/17/25 11:03 30 ML Carvedilol 12.5 mg BID PO 06/16/25 22:00 06/17/25 11:05 12.5 MG Sodium Bicarbonate 75 ml/ Dextrose 1,075 ml @ 700 mls/hr Q1H33M IV 06/16/25 17:15 06/16/25 18:47 Cancel Lactulose 30 ml BID PO 06/17/25 10:00 Pantoprazole Sodium 40 mg BID IV 06/17/25 10:00 06/17/25 11:03 40 MG Sodium Bicarbonate 100 ml/Dextrose 1,100 ml @ 75 mls/hr [id number] IV 06/17/25 10:00 06/17/25 11:13 75 MLS/HR Vancomycin HCl 0 ml @ 0 mls/hr UD IV 06/17/25 11:45 UNV Meropenem 50 ml @ 17 mls/hr Q8HR IV 06/17/25 14:00 UNV objective GENERAL: Ill appearing, intubated on ventilator. EYES: PERRL, EOMI. Anicteric. HENT: Moist mucous membranes. LUNGS: Decreased breath sounds. CARDIOVASCULAR: Regular rate and rhythm. ABDOMEN: Soft, nontender and nondistended. EXTREMITIES: No edema. NEUROLOGIC: No focal neurological deficits. SKIN: Warm, dry. laboratory and microbiology Laboratory Tests 06/17/25 02:56 Test 06/17/25 02:56 Range/Units Serum Glucose 181 H 74-106 mg/dL Problem List Chronic HFpEF, NYHA class IV. Paroxysmal atrial fibrillation, stage III, now NSR (on amiodarone/Elqiuis therapy). Severe aortic valve and mitral valve insufficiency. Acute hypoxic respiratory failure. Asthma. Chronic kidney disease. Thyroid disease. Prediabetes, newly diagnosed. Morbid obesity. History of tobacco use. Assessment/Plan Continued all current supportive medical care. Coreg. IV Amiodarone. GI prophylactics. IV antibiotics as ordered. Additional plan as per the hospital course. Critical care time of 45 minutes provided to include time spent evaluation of patient at bedside, when appropriate patient/family education for diagnosis, treatment plan, review of pertinent medical information and discussion of care with specialty providers and PCP. Mechanical ventilator parameters, treatment and adjustments have personally been reviewed by me and treatment plan by personnel clerk has also been reviewed. Dietary Evaluation Review Comments: 1) If patient remains NPO > 7 days, consider EN/TPN to meet at least 75% of estimated daily needs 2) If gut is preferred, consider Nepro @ 25 mL/hr goal rate as tolerated. Flush with 200 mL free H2O Q6H. TF regimen will provide 1080 kcals, 49g Pro, and 1236 mL free H2O per 24 hrs. TF regimen will meet ~ 92% estimated energy needs and 52% estimated protein needs. 3) Advance to 60g CCHO renal cardiac diet when medically feasible, pending ST approval 4) Refer to outpatient RD/CDCES for weight management 5) Follow-up with cardiology, pulmonology, or nephrology 6) Continue to monitor I&O, labs, and skin integrity Expected Outcomes/Goals: 1) patient to receive nutritional support within 7 days of NPO status 2) labs to improve 3) diet to advance 4) f/u in 2-3 days Plan discussed with: Other Capillary Refill: < 3 seconds URBANO TRUONG MD Jun 17, 2025 12:07
[2025-06-17 23:55] LABS: Nucleated Red Blood Cells % 1.0 %; Total Cells Counted 100.0 (100)
[2025-06-18] VITALS (108 sets, daily range): BP systolic 86–173; BP diastolic 32–86; PULSE 96–116; RESP 17–27; TEMP 97.7–99.3; O2SAT 97–100
[2025-06-18] MEDS: MEROPENEM 1GM IVPB 50 ML IV SCH (01:27)
[2025-06-18 03:53] LABS: Hemoglobin 9.6 g/dL (12.2-16.2)
[2025-06-18 04:00] LABS: Hematocrit 29.5 % (36.0-46.0); Mean Corpuscular Hemoglobin 27.8 pg (28.0-32.0); Mean Corpuscular Volume 85.7 fL (80.0-100.0)
[2025-06-18 04:08] LABS: Alanine Aminotransferase 28 U/L (7-40); Anion Gap 19 (5-15); BUN/Creatinine Ratio 31.6 (10.0-20.0); Chloride 100 mmol/L (98-107); Magnesium 2.0 mg/dL (1.6-2.6); Potassium 5.1 mmol/L (3.5-5.1)
[2025-06-18 04:09] LABS: Bilirubin, Total 0.3 mg/dL (0.2-1.0)
[2025-06-18 04:23] LABS: Albumin 2.7 g/dL (3.2-4.8); Alkaline Phosphatase 170 U/L (46-116); Calcium 8.5 mg/dL (8.7-10.4); Carbon Dioxide 16 mmol/L (20-31); Glucose 215 mg/dL (74-106); Sodium 135 mmol/L (136-145); Total Protein 5.1 g/dL (5.7-8.2)
[2025-06-18 04:24] LABS: Blood Urea Nitrogen 101 mg/dL (9-23)
[2025-06-18 05:14] LABS: Total Cells Counted 100.0 (100)
--- NOTE | 2025-06-18 05:42 | DVH ---
CHEST RADIOGRAPH Indication: F/U Technique: Single frontal view of the chest was obtained COMPARISON: XY CHEST XRAY 1 VIEW on DOS: 06/17/25, XY CHEST XRAY 1 VIEW on DOS: 06/16/25, XY CHEST XRAY 1 VIEW on DOS: 06/15/25, XY CHEST PORTABLE on DOS: 06/14/25, XY CHEST PORTABLE on DOS: 06/13/25 FINDINGS: Lines and Tubes: Slight interval advancement of the endotracheal tube such that the tip now projects approximately 2.5 cm above the level of the donna. Remaining lines and tubes unchanged. Lungs: Clear Pleura: No effusion. No pneumothorax. Cardiomediastinal contours: Unremarkable Bones: Unremarkable IMPRESSION: 1. Slight interval advancement of the endotracheal tube such that the tip now projects approximately 2.5 cm above the level of the donna. Remaining lines and tubes unchanged. 2. No evidence of acute cardiopulmonary process.
[2025-06-18 07:35] LABS: Base Excess -9.3 mmol/L (-2.0-3.0)
--- NOTE | 2025-06-18 10:35 | DVHPN2 ---
Progress Note Date Seen: Jun 18, 2025 Medical Necessity Reason Pt with a Central, PICC or Fol: Yes The following are medically ne: Central Line, [place] Catheter Subjective Review of Systems: RESPIRATORY:Abnormal Other Systems: Patient seen and examined by myself today in follow-up, patient remained intubated on ventilator Objective vital signs Vital Sign Date Time Temp Pulse Resp B/P (MAP) Pulse Ox O2 Delivery O2 Flow Rate FiO2 06/18/25 09:14 111 24 137/79 (98) 99 30 06/18/25 08:00 Mechanical Ventilator+ 06/18/25 04:00 99.3 99.3 Total Intake and Output 06/17/25 06/17/25 06/18/25 15:00 23:00 07:00 Intake Total 587.825 ml 1139.845 ml 2120.46 ml Output Total 200 ml 500 ml Balance 587.825 ml 939.845 ml 1620.46 ml medications Current Medications Medications Dose Ordered Sig/Bárbara Route Start Time Stop Time Status Last Admin Dose Admin Ondansetron HCl 4 mg Q4HP PRN IV 06/09/25 01:00 Cancel Acetaminophen 650 mg Q6HP PRN PO 06/09/25 01:00 06/10/25 20:15 650 MG Nitroglycerin 0.4 mg Q5MINP PRN SL 06/09/25 01:00 Propofol 100 ml @ 2.16 mls/hr Q24H IV 06/11/25 12:00 06/18/25 10:19 10.8 MLS/HR Fentanyl Citrate 250 ml @ 2.5 mls/hr Q24H IV 06/11/25 12:00 06/17/25 16:08 7.5 MLS/HR Midazolam HCl 50 ml @ 1 mls/hr Q24H IV 06/11/25 14:45 06/14/25 01:02 2 MLS/HR Ipratropium [place] 0.5 mg Q6HR NEB 06/14/25 10:15 06/18/25 06:01 0.5 MG Enteral Nutritional Formula 1,000 ml 40ML/HR GT 06/14/25 10:15 Hold 06/16/25 19:52 1,000 ML Amiodarone HCL/ Dextrose 200 ml @ 16.66 mls/ hr Q12H IV 06/14/25 17:45 06/18/25 08:53 16.66 MLS/HR Levalbuterol HCl 1.25 mg Q6HR NEB 06/15/25 00:00 06/18/25 06:01 1.25 MG Levothyroxine Sodium 50 mcg QAM@0600 PO 06/16/25 06:00 06/17/25 05:39 50 MCG Amino Acid Protein 30 ml BID GT 06/15/25 13:15 Hold 06/17/25 11:03 30 ML Carvedilol 12.5 mg BID PO 06/16/25 22:00 Hold 06/17/25 11:05 12.5 MG Sodium Bicarbonate 75 ml/ Dextrose 1,075 ml @ 700 mls/hr Q1H33M IV 06/16/25 17:15 06/16/25 18:47 Cancel Pantoprazole Sodium 40 mg BID IV 06/17/25 10:00 06/17/25 22:56 40 MG Sodium Bicarbonate 100 ml/Dextrose 1,100 ml @ 75 mls/hr [id number] IV 06/17/25 10:00 06/18/25 06:00 75 MLS/HR Vancomycin HCl 0 ml @ 0 mls/hr UD IV 06/17/25 11:45 Bumetanide 1 mg BIDD IV 06/17/25 18:00 Cancel Meropenem 50 ml @ 17 mls/hr Q12H IV 06/18/25 01:00 06/18/25 01:27 17 MLS/HR Norepinephrine Bitartrate 250 ml @ 3.75 mls/hr Q24H IV 06/17/25 18:30 06/18/25 00:48 30 MLS/HR Phenylephrine HCl 250 ml @ 30 mls/hr Q8H20M IV 06/17/25 20:15 Hydrocortisone Sodium Succinate 100 mg Q12HR IV 06/18/25 10:00 Lactated Ringer's 1,000 ml @ 125 mls/hr Q8H IV 06/17/25 22:30 06/17/25 22:30 125 MLS/HR Bumetanide 12.5 mg/Miscellaneous 50 ml @ 2 mls/hr Q24H IV 06/18/25 09:15 Examination: LUNGS:Normal, CVS:Normal, MSK:Normal laboratory and microbiology Laboratory Tests 9/12/25 03:01 Test 06/18/25 03:01 Range/Units Serum Glucose 215 H 74-106 mg/dL Microbiology Date/Time Source Procedure Growth Status 06/16/25 10:30 Blood Blood Culture - Preliminary NO GROWTH AFTER 24 HOURS OF INCUBATION. Resulted 06/11/25 14:25 Nose MRSA Screen - Final Complete Problem List/Assessment/Plan Problem List/Assessment/Plan Acute kidney injury on chronic kidney disease stage IIIA secondary to hemodynamic mediated, FeNa > 2% 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 06/18 Anemia chronic kidney disease Hyperglycemia Hypokalemia Hypothyroidism Chest x-ray consistent with pulmonary edema Recommendations Kidney function worsened today Increased urine output Engel catheter Strict I&Os IV bicarb drip Start Bumex IV drip 0.5 mg per hour IV antibiotic IV steroids KCL replacement Thyroid replacement Insulin sliding scale Kidney ultrasound reported within normal limit Cardiology consult We will continue to follow Plan discussed with: Other (Nurse) My Orders My Orders Orders - MARIO DALE MD Procedure Category Date Status Time Give Un-Diluted PHA 06/18/25 In Process (Gi... W/Bumetanide 09:15 Dietary Evaluation Review Comments: 1) If patient remains NPO > 7 days, consider EN/TPN to meet at least 75% of estimated daily needs 2) If gut is preferred, consider Nepro @ 25 mL/hr goal rate as tolerated. Flush with 200 mL free H2O Q6H. TF regimen will provide 1080 kcals, 49g Pro, and 1236 mL free H2O per 24 hrs. TF regimen will meet ~ 92% estimated energy needs and 52% estimated protein needs. 3) Advance to 60g CCHO renal cardiac diet when medically feasible, pending ST approval 4) Refer to outpatient RD/[facility] for weight management 5) Follow-up with cardiology, pulmonology, or nephrology 6) Continue to monitor I&O, labs, and skin integrity Expected Outcomes/Goals: 1) patient to receive nutritional support within 7 days of NPO status 2) labs to improve 3) diet to advance 4) f/u in 2-3 days Sepsis reassessment post fluid Capillary Refill: < 3 seconds MARIO DALE MD Jun 18, 2025 10:35
[2025-06-18] MEDS: HYDROCORTISONE SOD SUCC 100 MG/2ML INJ VIAL IV SCH (11:20)
[2025-06-18] MEDS: BUMETANIDE INJECTION 12.5 MG in GIVE UN-DILUTED 0 ML IV SCH (11:40)
[2025-06-18] MEDS ORDERED: TPN PER PHARMACY 0 ML IV SCH (12:15)
[2025-06-18] MEDS: MICAFUNGIN SODIUM 100 MG in SODIUM CHL 0.9% 100 ML IV ONE ×2 (12:15→17:50)
--- NOTE | 2025-06-18 13:06 | DVHPN2 ---
Progress Note - Surgical Date Seen: Jun 18, 2025 Post op day Post op day: 1 Subjective Patient reports: Other (Patient is still critical condition, requiring vasopressors, intubated, abdomen open.) Review of Systems: Deferred Objective Vital signs Vital Sign Date Time Temp Pulse Resp B/P (MAP) Pulse Ox O2 Delivery O2 Flow Rate FiO2 06/18/25 11:42 110 24 110/55 (73) 99 30 06/18/25 08:00 Mechanical Ventilator+ 06/18/25 04:00 99.3 99.3 Total Intake and Output 06/17/25 06/17/25 06/18/25 15:00 23:00 07:00 Intake Total 587.825 ml 1139.845 ml 2120.46 ml Output Total 200 ml 500 ml Balance 587.825 ml 939.845 ml 1620.46 ml Medications Current Medications Medications Dose Ordered Sig/Bárbara Route Start Time Stop Time Status Last Admin Dose Admin Ondansetron HCl 4 mg Q4HP PRN IV 06/09/25 01:00 Cancel Acetaminophen 650 mg Q6HP PRN PO 06/09/25 01:00 06/10/25 20:15 650 MG Nitroglycerin 0.4 mg Q5MINP PRN SL 06/09/25 01:00 Propofol 100 ml @ 2.16 mls/hr Q24H IV 06/11/25 12:00 06/18/25 10:19 10.8 MLS/HR Fentanyl Citrate 250 ml @ 2.5 mls/hr Q24H IV 06/11/25 12:00 06/17/25 16:08 7.5 MLS/HR Midazolam HCl 50 ml @ 1 mls/hr Q24H IV 06/11/25 14:45 06/14/25 01:02 2 MLS/HR Ipratropium [place] 0.5 mg Q6HR NEB 06/14/25 10:15 06/18/25 11:42 0.5 MG Enteral Nutritional Formula 1,000 ml 40ML/HR GT 06/14/25 10:15 Hold 06/16/25 19:52 1,000 ML Amiodarone HCL/ Dextrose 200 ml @ 16.66 mls/ hr Q12H IV 06/14/25 17:45 06/18/25 08:53 16.66 MLS/HR Levalbuterol HCl 1.25 mg Q6HR NEB 06/15/25 00:00 06/18/25 11:42 1.25 MG Levothyroxine Sodium 50 mcg QAM@0600 PO 06/16/25 06:00 Hold 06/17/25 05:39 50 MCG Amino Acid Protein 30 ml BID GT 06/15/25 13:15 Hold 06/17/25 11:03 30 ML Carvedilol 12.5 mg BID PO 06/16/25 22:00 Hold 06/17/25 11:05 12.5 MG Sodium Bicarbonate 75 ml/ Dextrose 1,075 ml @ 700 mls/hr Q1H33M IV 06/16/25 17:15 06/16/25 18:47 Cancel Pantoprazole Sodium 40 mg BID IV 06/17/25 10:00 06/18/25 11:19 40 MG Sodium Bicarbonate 100 ml/Dextrose 1,100 ml @ 75 mls/hr [id number] IV 06/17/25 10:00 06/18/25 06:00 75 MLS/HR Vancomycin HCl 0 ml @ 0 mls/hr UD IV 06/17/25 11:45 Bumetanide 1 mg BIDD IV 06/17/25 18:00 Cancel Meropenem 50 ml @ 17 mls/hr Q12H IV 06/18/25 01:00 06/18/25 01:27 17 MLS/HR Norepinephrine Bitartrate 250 ml @ 3.75 mls/hr Q24H IV 06/17/25 18:30 06/18/25 00:48 30 MLS/HR Phenylephrine HCl 250 ml @ 30 mls/hr Q8H20M IV 06/17/25 20:15 Bumetanide 12.5 mg/Miscellaneous 50 ml @ 2 mls/hr Q24H IV 06/18/25 09:15 06/18/25 11:40 2 MLS/HR Micafungin Sodium 100 mg/Sodium Chloride 100 ml @ 100 mls/hr DAILY IV 06/19/25 10:00 Amino Acids 0 ml @ 0 mls/hr PER PHARMACY IV 06/18/25 12:15 UNV Laboratory Laboratory Tests 06/18/25 03:01 Test 06/18/25 03:01 Range/Units Serum Glucose 215 H 74-106 mg/dL Microbiology Date/Time Source Procedure Growth Status 06/17/25 07:00 Stool Stool Culture - Preliminary Resulted 06/17/25 07:00 Stool Shiga Toxin I & II Pending Resulted 06/16/25 10:30 Blood Blood Culture - Preliminary NO GROWTH AFTER 48 HOURS OF INCUBATION. Resulted 06/11/25 14:25 Nose MRSA Screen - Final Complete Examination: GENERAL:Abnormal (Intubated and sedated), HEENT:Abnormal (ET tube and OG tube in place, OG tube to low intermittent suction), ABDOMEN:Abnormal (Nondistended, open abdomen with temporary dressing in place, no grimacing on palpation), :Abnormal (Engel in place, 700 mL of urine output overnight) Labs and/or images reviewed: Labs reviewed by me (Leukocytosis increased to 46) Problem List/Assessment/Plan Problems: (1) Megacolon (2) Pneumatosis intestinalis Assessment and Plan Mrs. Penaloza is a 54-year-old female who has been in the hospital since June 08 due to pneumonia and CHF exacerbation that resulted in intubation. I was consulted yesterday due to physical exam findings of the distention/tenderness, coupled with CT findings of pneumatosis intestinalis and severe dilation of the colon. Patient was taken emergently to the operating room she is currently postop day 1 from exploratory laparotomy, subtotal colectomy and temporary abdominal closure. During surgical manipulation of the diseased tissues, patient started getting very hypotensive requiring phenylephrine and Levophed, this is why the patient was left in discontinuity, with a temporary abdominal dressing. This a.m. phenylephrine has been stopped and Levophed requirements are improving. We will plan for take back surgery tomorrow a.m. My plan for second-look surgery tomorrow a.m. was discussed with the patient's family. Procedure, risks, benefits, complications, and alternatives were discussed at length. All their questions were answered. 1. Booked for operating room tomorrow a.m. 2. Consent for exploratory laparotomy, possible bowel resection, possible ostomy, possible temporary abdominal dressing 3. Continue to wean pressors as tolerated 4. NPO strict 5. OG tube to LIS 6. Continue with IV antibiotics My Orders My Orders Orders - SONAM ALCARAZ MD Procedure Category Date Status Time Obtain Consent For: ORDERS 06/17/25 Transmitted 18:07 Obtain Consent For DEANDRA 06/17/25 In Process Anesthesia 18:07 Ng To Lis DEANDRA 06/18/25 In Process 10:33 Obtain Consent For: ORDERS 06/18/25 Transmitted 12:51 Obtain Consent For DEANDRA 06/19/25 In Process Anesthesia 12:51 Plan discussed with Plan discussed with: Patient, Spouse, Daughter, Other (Mother) Visit Coding Surgery Date of Service if different f: Jun 18, 2025 Billing Provider: SONAM ALCARAZ MD Surgery Visit Codes: [id number] INP/OBS CARE(HIGH) SONAM ALCARAZ MD Jun 18, 2025 13:06
--- NOTE | 2025-06-18 14:02 | DVHPNRES ---
Progress Note Date Seen: Jun 18, 2025 Resident Creating Document: MARCELLO BURDEN RESIDENT Medical Necessity Reason Pt with a Central, PICC or Fol: Yes The following are medically ne: Central Line, Engel Catheter Subjective Review of Systems This is a 54-year-old female with recent ESBL bacteriemia, chronic heart failure with preserved ejection fraction, paroxysmal atrial fibrillation, severe aortic and mitral insufficiency, prediabetes, asthma and CKD 3A, morbid obesity, questionable rheumatoid arthritis and Crohn's disease who presented to the ER for the evaluation of shortness of breaths for the past 2 days. Associated with nonproductive cough and swelling at her ankles for the past 2 weeks. She denied fever or chills per chart review. Patient was kept on BiPAP which did not improve her condition and she had increased work of breathing and therefore patient was intubated and mechanically ventilated on 06/11. She has been getting IV diuretics with Lasix, and has been getting treatment for CHF exacerbation and pneumonia. Per , Patient was intubated in 2022 for pneumonia [place], following which she needed oxygen supplementation with 5 L NC. Past medical history:severe aortic insufficiency, moderate MR, moderate TR, COPD on 4 L home oxygen, CKD 3B, questionable rheumatoid arthritis and Crohn's disease Past surgical history: EBENEZER: Back surgery: Hysterectomy Home medication: Patient denies taking biological agents or methotrexate. Eliquis 5 mg p.o. b.i.d., amiodarone 200 mg daily, clonidine 0.1 mg b.i.d., furosemide 40 mg p.o. b.i.d., ibuprofen p.r.n., metoprolol 200 mg b.i.d., rosuvastatin, tizanidine Follow up Dr. Contreras. Overnight afebrile, respiratory rate 24 per minute, on minimal vent settings at 30% FiO2. WBC downtrending from 20 on arrival to 9.5, BUN/creatinine trending up, GFR decreasing. Social history: Quit smoking 20 years, was smoking marijuana till June 2023. Lives with 06/14-Patient seen and examined in ICU. Patient was having AFib with RVR, started IV amiodarone, discontinued p.o. amiodarone. Which improved patient's heart rate. Started Coreg and amlodipine. 06/15 - seen and examined, WBC count increased to 14 from 9. GFR and creatinine improving. Intermittently AFib with RVR, IV amiodarone increased from 0.5-1. CPAP trial failed, low tidal volumes 06/16 - overnight 98.2, wbc inc to 21, cr improving, AGMA, started zosyn, tap water enema. 06/17 - overnight 99.9 F, intermittent tachycardia, abdomen is distended and tender, hypoactive, CT abdomen completed, showed Significant dilation of the colon measuring up to 8 cm with possible pneumatosis intestinalis along the ascending colon versus non dependent air. Evidence of portal venous gas. Imaging findings elevate concern for bowel ischemia of the ascending colon/cecum. Surgeon consulted-recommended surgery, consent signed patient undergoing ex laparotomy. NPO, pantoprazole b.i.d., DC antihypertensives. Lactic acid unremarkable, vanc and meropenem started. Nephrology started D5W bicarb drip. 06/18-overnight patient underwent subtotal colectomy, second-look surgery with possible bowel resection tomorrow 06/19. Pressor requirement decreased from Reuben- Synephrine and Levophed to Levophed. Currently at 4 mcg. Nephrology started Bumex drip 0.5. NG to LIS. Added micafungin today. Continue vanc and meropenem. DC LR. Continue D5 with bicarb. Chest x-ray shows worsening congestion. BUN creatinine trending up. WBC 46. No grimacing on abdominal outpatient today. ABG shows anion gap metabolic acidosis with respiratory compensation. Objective vital signs Vital Sign Date Time Temp Pulse Resp B/P (MAP) Pulse Ox O2 Delivery O2 Flow Rate FiO2 06/18/25 13:26 111 24 108/60 (76) 99 30 06/18/25 12:00 97.7 97.7 06/18/25 08:00 Mechanical Ventilator+ Total Intake and Output 06/17/25 06/17/25 06/18/25 15:00 23:00 07:00 Intake Total 587.825 ml 1139.845 ml 2120.46 ml Output Total 200 ml 500 ml Balance 587.825 ml 939.845 ml 1620.46 ml medications Current Medications Medications Dose Ordered Sig/Bárbara Route Start Time Stop Time Status Last Admin Dose Admin Ondansetron HCl 4 mg Q4HP PRN IV 06/09/25 01:00 Cancel Acetaminophen 650 mg Q6HP PRN PO 06/09/25 01:00 06/10/25 20:15 650 MG Nitroglycerin 0.4 mg Q5MINP PRN SL 06/09/25 01:00 Propofol 100 ml @ 2.16 mls/hr Q24H IV 06/11/25 12:00 06/18/25 10:19 10.8 MLS/HR Fentanyl Citrate 250 ml @ 2.5 mls/hr Q24H IV 06/11/25 12:00 06/17/25 16:08 7.5 MLS/HR Midazolam HCl 50 ml @ 1 mls/hr Q24H IV 06/11/25 14:45 06/14/25 01:02 2 MLS/HR Ipratropium [place] 0.5 mg Q6HR NEB 06/14/25 10:15 06/18/25 11:42 0.5 MG Enteral Nutritional Formula 1,000 ml 40ML/HR GT 06/14/25 10:15 Hold 06/16/25 19:52 1,000 ML Amiodarone HCL/ Dextrose 200 ml @ 16.66 mls/ hr Q12H IV 06/14/25 17:45 06/18/25 08:53 16.66 MLS/HR Levalbuterol HCl 1.25 mg Q6HR NEB 06/15/25 00:00 06/18/25 11:42 1.25 MG Levothyroxine Sodium 50 mcg QAM@0600 PO 06/16/25 06:00 Hold 06/17/25 05:39 50 MCG Amino Acid Protein 30 ml BID GT 06/15/25 13:15 Hold 06/17/25 11:03 30 ML Carvedilol 12.5 mg BID PO 06/16/25 22:00 Hold 06/17/25 11:05 12.5 MG Sodium Bicarbonate 75 ml/ Dextrose 1,075 ml @ 700 mls/hr Q1H33M IV 06/16/25 17:15 06/16/25 18:47 Cancel Pantoprazole Sodium 40 mg BID IV 06/17/25 10:00 06/18/25 11:19 40 MG Sodium Bicarbonate 100 ml/Dextrose 1,100 ml @ 75 mls/hr [id number] IV 06/17/25 10:00 06/18/25 06:00 75 MLS/HR Vancomycin HCl 0 ml @ 0 mls/hr UD IV 06/17/25 11:45 Bumetanide 1 mg BIDD IV 06/17/25 18:00 Cancel Meropenem 50 ml @ 17 mls/hr Q12H IV 06/18/25 01:00 06/18/25 01:27 17 MLS/HR Norepinephrine Bitartrate 250 ml @ 3.75 mls/hr Q24H IV 06/17/25 18:30 06/18/25 00:48 30 MLS/HR Phenylephrine HCl 250 ml @ 30 mls/hr Q8H20M IV 06/17/25 20:15 Bumetanide 12.5 mg/Miscellaneous 50 ml @ 2 mls/hr Q24H IV 06/18/25 09:15 06/18/25 11:40 2 MLS/HR Micafungin Sodium 100 mg/Sodium Chloride 100 ml @ 100 mls/hr DAILY IV 06/19/25 10:00 Amino Acids 0 ml @ 0 mls/hr PER PHARMACY IV 06/18/25 12:15 Sodium Chloride 10 meq/Sodium Acetate 10 meq/ Magnesium Sulfate 4 meq/ Multivitamins 10 ml/Chromium/ Copper/Manganese/ Zinc 1 ml/Insulin Human Regular 5 units/Amino Acids/ Dextrose/Purified Water 819.55 ml @ 34.002 mls/hr Q24H7M IV 06/18/25 22:00 06/19/25 21:59 Diagnostic Test (Pha) 1 strip Q6HR 06/19/25 00:00 Insulin Human Regular FOLLOW SLIDING SCALE Q6HR SC 06/19/25 00:00 Dextrose 50 ml UD IV 06/18/25 22:00 Examination Morbidly obese female patient lying in the bed intubated and mechanically ventilated, RASS -3 General: Morbidly obese, afebrile, palor, mucosae are moist Cardiovascular: Tachycardic and irregular S1 and S2. No murmurs, gallops or rubs. No JVD elevation. 1+ pitting edema bilaterally Respiratory: Decreased bilateral air entry, coarse crackles bilateral lower lobe Abdomen: Soft, non grimacing, nondistended, hypoactive bowel sounds, no rebound tenderness, no organomegaly, no masses. Rectal exam completed, shows liquid stool in the vault, no masses felt, stool color reddish Genitourinary: Deferred MSK/skin: Skin is dry and warm Neurological: Intact gag/pupillary light reflex Pupils are isocoric and reactive. laboratory and microbiology Laboratory Tests 06/18/25 03:01 Test 06/18/25 03:01 Range/Units Serum Glucose 215 H 74-106 mg/dL Microbiology Date/Time Source Procedure Growth Status 06/17/25 07:00 Stool Stool Culture - Preliminary Resulted 06/17/25 07:00 Stool Shiga Toxin I & II Pending Resulted 06/16/25 10:30 Blood Blood Culture - Preliminary NO GROWTH AFTER 48 HOURS OF INCUBATION. Resulted 06/11/25 14:25 Nose MRSA Screen - Final Complete Labs and/or images reviewed: Labs reviewed by me, Image(s) reviewed by me Problem List/Assessment/Plan Problem List/Assessment/Plan NEURO: Intubated, on sedatives CARDIOVASCULAR: Acute on chronic heart failure with preserved ejection fraction exacerbation Paroxysmal Atrial fibrillation with RVR Pulmonary edema Severe aortic insufficiency, mitral valve insufficiency, tricuspid regurg Per Cardiology:patient underwent a transesophageal echocardiogram on 03/26/2025 which revealed an EF of 60% with severe aortic insufficiency and with moderate mitral insufficiency. Continue with Preload and afterload reduction. ([id number]- VASc Score 2 points, HAS-BLED Score 0 points): We will recommend to continue antiarrhythmic therapy with amiodarone, DOAC therapy with Eliquis, and beta- octavio for rate control . Outpatient follow up with Dr. Melo in [place] for aortic valve replacement with possible TAVR as well as possible mitral clip. She has seen plug maker in [place] one time and underwent a EBENEZER. The patient is scheduled to have a right and left heart catheterization later this month for TAVR workup. Discontinued P.o. amlodipine, p.o. Coreg IV amiodarone protocol started 06/14 Discontinued Lasix 40 mg IV b.i.d., IV Lasix 40 mg daily Discontinued Solu-Medrol Lovenox daily PULMONARY: Acute hypoxic respiratory failure status post intubation 06/11 Hx of Pna and intubation 2022 Sepsis secondary to Acute Gram-positive and Gram-negative pneumonia Likely COPD on 4L home O2 Chronic oxygen dependence History of asthma Discontinued IV doxycycline, added zosyn 06/16, started IV vancomycin and IV meropenem 06/17, added micafungin 06/18 Nebulized treatments GASTROINTESTINAL: Pneumatosis intestinalis and megacolon likely ischemic bowel status s/p laparotomy, subtotal colectomy and temporary abdominal closure 06/17 Transaminitis, 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 Ischemic colitis liver ultrasound shows hepatic steatosis CT abdomen completed, showed Significant dilation of the colon measuring up to 8 cm with possible pneumatosis intestinalis along the ascending colon versus non dependent air. Evidence of portal venous gas. Imaging findings elevate concern for bowel ischemia of the ascending colon/cecum. Surgeon [id number] surgery tomorrow a.m. 06/19. GENITOURINARY: NYASIA secondary to hemodynamically mediated/VMN ? Chronic kidney disease Anemia of CKD Kidney ultrasound shows Normal sonographic appearance of the kidneys. No hydronephrosis. 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 Bowel regimen: Lactulose discontinued Code status: Full code LINES/DRAINS/ACCESS: IV access: Right IJ 06/11 Drips: Versed, fentanyl, Levophed Engel catheter DISPOSITION: ICU Patient's status discussed with the patient's spouse at bedside, nurse in which all questions have been answered Critical care time spent more than 69 minutes, including patient care, chart review, and updating the family. Excluding any procedures Case discussed with Dr. Cruz Plan discussed with: Spouse (At bedside), Daughter (At bedside) My Orders My Orders Orders - MARCELLO BURDEN RESIDENT Procedure Category Date Status Time Chest Xray 1 View XY 06/18/25 Resulted 04:00 Abg W/ Co-Ox RT 06/18/25 Logged 04:00 Micafungin Sodium PHA 06/19/25 In Process (Mycamine) 10:00 Tpn Per Pharmacy PHA 06/18/25 In Process 12:15 Amino Acid PHA 06/18/25 In Process Infusion... W/Sodium 22:00 Comprehensive LAB 06/19/25 Verified Metabolic Panel 05:00 Phosphorus LAB 06/19/25 Verified 05:00 Magnesium LAB 06/19/25 Verified 05:00 Triglycerides LAB 06/19/25 Verified 05:00 Tpn Per Pharmacy DEANDRA 06/18/25 In Process 22:00 Glucose Blood PHA 06/19/25 In Process (Accu-Chek Comfort 00:00 Insulin R (Human) PHA 06/19/25 In Process (Insulin R) 00:00 Dextrose 50% Syringe PHA 06/18/25 In Process 22:00 Dietary Evaluation Review Comments: 1) If patient remains NPO > 7 days, consider EN/TPN to meet at least 75% of estimated daily needs 2) If gut is preferred, consider Nepro @ 25 mL/hr goal rate as tolerated. Flush with 200 mL free H2O Q6H. TF regimen will provide 1080 kcals, 49g Pro, and 1236 mL free H2O per 24 hrs. TF regimen will meet ~ 92% estimated energy needs and 52% estimated protein needs. 3) Advance to 60g CCHO renal cardiac diet when medically feasible, pending ST approval 4) Refer to outpatient RD/CDCES for weight management 5) Follow-up with cardiology, pulmonology, or nephrology 6) Continue to monitor I&O, labs, and skin integrity Expected Outcomes/Goals: 1) patient to receive nutritional support within 7 days of NPO status 2) labs to improve 3) diet to advance 4) f/u in 2-3 days Sepsis reassessment post fluid Capillary Refill: < 3 seconds Date of Service: Jun 18, 2025 Billing Provider: GIA CRUZ MD Common Visit Codes: NOT BILLABLE MARCELLO BURDEN RESIDENT Jun 18, 2025 14:02 GIA CRUZ MD Jul 22, 2025 16:10
--- NOTE | 2025-06-18 18:54 | DVHPN2 ---
Progress Note - Dictate Date Seen: Jun 18, 2025 Medical Necessity Reason Pt with a Central, PICC or Fol: Yes The following are medically ne: Central Line, Engel Catheter Subjective Patient was seen and evaluated in follow up in the ICU. Patient is intubated and sedated on ventilator. 30% FiO2. Patient underwent exploratory laparotomy, mobilization of hepatic flexure, splenic flexure, resection of ascending and transverse colon with temporary abdominal closure. WBC 46.2, HGB 9.6, HCT 29.5, NA 135, CO2 16, BUN 101, GLUC 215, CA 8.5. Chest x-ray shows lines and tubes unchanged. vital signs Vital Sign Date Time Temp Pulse Resp B/P (MAP) Pulse Ox O2 Delivery O2 Flow Rate FiO2 06/18/25 11:42 110 24 110/55 (73) 99 30 06/18/25 08:00 Mechanical Ventilator+ 06/18/25 04:00 99.3 99.3 Total Intake and Output 06/17/25 06/17/25 06/18/25 15:00 23:00 07:00 Intake Total 587.825 ml 1139.845 ml 2120.46 ml Output Total 200 ml 500 ml Balance 587.825 ml 939.845 ml 1620.46 ml medications Current Medications Medications Dose Ordered Sig/Bárbara Route Start Time Stop Time Status Last Admin Dose Admin Ondansetron HCl 4 mg Q4HP PRN IV 06/09/25 01:00 Cancel Acetaminophen 650 mg Q6HP PRN PO 06/09/25 01:00 06/10/25 20:15 650 MG Nitroglycerin 0.4 mg Q5MINP PRN SL 06/09/25 01:00 Propofol 100 ml @ 2.16 mls/hr Q24H IV 06/11/25 12:00 06/18/25 10:19 10.8 MLS/HR Fentanyl Citrate 250 ml @ 2.5 mls/hr Q24H IV 06/11/25 12:00 06/17/25 16:08 7.5 MLS/HR Midazolam HCl 50 ml @ 1 mls/hr Q24H IV 06/11/25 14:45 06/14/25 01:02 2 MLS/HR Ipratropium [place] 0.5 mg Q6HR NEB 06/14/25 10:15 06/18/25 11:42 0.5 MG Enteral Nutritional Formula 1,000 ml 40ML/HR GT 06/14/25 10:15 Hold 06/16/25 19:52 1,000 ML Amiodarone HCL/ Dextrose 200 ml @ 16.66 mls/ hr Q12H IV 06/14/25 17:45 06/18/25 08:53 16.66 MLS/HR Levalbuterol HCl 1.25 mg Q6HR NEB 06/15/25 00:00 06/18/25 11:42 1.25 MG Levothyroxine Sodium 50 mcg QAM@0600 PO 06/16/25 06:00 Hold 06/17/25 05:39 50 MCG Amino Acid Protein 30 ml BID GT 06/15/25 13:15 Hold 06/17/25 11:03 30 ML Carvedilol 12.5 mg BID PO 06/16/25 22:00 Hold 06/17/25 11:05 12.5 MG Sodium Bicarbonate 75 ml/ Dextrose 1,075 ml @ 700 mls/hr Q1H33M IV 06/16/25 17:15 06/16/25 18:47 Cancel Pantoprazole Sodium 40 mg BID IV 06/17/25 10:00 06/18/25 11:19 40 MG Sodium Bicarbonate 100 ml/Dextrose 1,100 ml @ 75 mls/hr [id number] IV 06/17/25 10:00 06/18/25 06:00 75 MLS/HR Vancomycin HCl 0 ml @ 0 mls/hr UD IV 06/17/25 11:45 Bumetanide 1 mg BIDD IV 06/17/25 18:00 Cancel Meropenem 50 ml @ 17 mls/hr Q12H IV 06/18/25 01:00 06/18/25 01:27 17 MLS/HR Norepinephrine Bitartrate 250 ml @ 3.75 mls/hr Q24H IV 06/17/25 18:30 06/18/25 00:48 30 MLS/HR Phenylephrine HCl 250 ml @ 30 mls/hr Q8H20M IV 06/17/25 20:15 Bumetanide 12.5 mg/Miscellaneous 50 ml @ 2 mls/hr Q24H IV 06/18/25 09:15 06/18/25 11:40 2 MLS/HR Micafungin Sodium 100 mg/Sodium Chloride 100 ml @ 100 mls/hr DAILY IV 06/19/25 10:00 UNV Amino Acids 0 ml @ 0 mls/hr PER PHARMACY IV 06/18/25 12:15 UNV objective GENERAL: Ill appearing, intubated on ventilator. EYES: PERRL, EOMI. Anicteric. HENT: Moist mucous membranes. LUNGS: Decreased breath sounds. CARDIOVASCULAR: Regular rate and rhythm. ABDOMEN: Soft, nontender and nondistended. EXTREMITIES: No edema. NEUROLOGIC: No focal neurological deficits. SKIN: Warm, dry. laboratory and microbiology Laboratory Tests 06/18/25 03:01 Test 06/18/25 03:01 Range/Units Serum Glucose 215 H 74-106 mg/dL Problem List Chronic HFpEF, NYHA class IV. Paroxysmal atrial fibrillation, stage III, now NSR (on amiodarone/Elqiuis therapy). Severe aortic valve and mitral valve insufficiency. Acute hypoxic respiratory failure. Asthma. Chronic kidney disease. Thyroid disease. Prediabetes, newly diagnosed. Morbid obesity. History of tobacco use. Assessment/Plan Continued all current supportive medical care. IV Amiodarone. GI prophylactics. Diuretics with Bumex. IV antibiotics as ordered. Vasopressors for hemodynamic support. Additional plan as per the hospital course. Critical care time of 45 minutes provided to include time spent evaluation of patient at bedside, when appropriate patient/family education for diagnosis, treatment plan, review of pertinent medical information and discussion of care with specialty providers and PCP. Mechanical ventilator parameters, treatment and adjustments have personally been reviewed by me and treatment plan by integrated pest management technician has also been reviewed. Dietary Evaluation Review Comments: 1) If patient remains NPO > 7 days, consider EN/TPN to meet at least 75% of estimated daily needs 2) If gut is preferred, consider Nepro @ 25 mL/hr goal rate as tolerated. Flush with 200 mL free H2O Q6H. TF regimen will provide 1080 kcals, 49g Pro, and 1236 mL free H2O per 24 hrs. TF regimen will meet ~ 92% estimated energy needs and 52% estimated protein needs. 3) Advance to 60g CCHO renal cardiac diet when medically feasible, pending ST approval 4) Refer to outpatient RD/CD[facility] for weight management 5) Follow-up with cardiology, pulmonology, or nephrology 6) Continue to monitor I&O, labs, and skin integrity Expected Outcomes/Goals: 1) patient to receive nutritional support within 7 days of NPO status 2) labs to improve 3) diet to advance 4) f/u in 2-3 days Plan discussed with: Other Capillary Refill: < 3 seconds URBANO TRUONG MD Jun 18, 2025 12:25
[2025-06-18] MEDS ORDERED: DEXTROSE (50%) 50ML SYRG IV SCH (22:00)
[2025-06-18] MEDS: SODIUM CHLORIDE IV NR (22:12)
[2025-06-18] MEDS: SODIUM ACETATE IV NR (22:12)
[2025-06-18] MEDS: MAGNESIUM SULF IV NR (22:12)
[2025-06-18] MEDS: [UNRECOGNIZED DRUG - OTHER] IV NR (22:12)
[2025-06-19] VITALS (101 sets, daily range): BP systolic 74–148; BP diastolic 25–85; PULSE 101–162; RESP 21–29; TEMP 97.6–99.1; O2SAT 94–100
[2025-06-19] MEDS: ACCU-CHEK COMFORT CURVE STRIP VI SCH (00:40)
[2025-06-19] MEDS: InsuLIN REG 1unit/0.01ml Soln (100units/ml) SC SCH (00:40)
[2025-06-19 03:47] LABS: Hemoglobin 7.6 g/dL (12.2-16.2)
[2025-06-19 03:50] LABS: Hematocrit 23.2 % (36.0-46.0); Mean Corpuscular Hemoglobin 27.8 pg (28.0-32.0); Mean Corpuscular Volume 84.4 fL (80.0-100.0)
[2025-06-19 04:11] LABS: Alanine Aminotransferase 38 U/L (7-40); Anion Gap 20 (5-15); BUN/Creatinine Ratio 33.9 (10.0-20.0); Magnesium 2.0 mg/dL (1.6-2.6); Potassium 5.1 mmol/L (3.5-5.1)
[2025-06-19 04:15] LABS: Albumin 2.4 g/dL (3.2-4.8); Alkaline Phosphatase 159 U/L (46-116); Bilirubin, Total 0.3 mg/dL (0.2-1.0); Calcium 8.0 mg/dL (8.7-10.4); Carbon Dioxide 18 mmol/L (20-31); Chloride 93 mmol/L (98-107); Glucose 210 mg/dL (74-106); Sodium 131 mmol/L (136-145); Total Protein 4.6 g/dL (5.7-8.2); Triglycerides 584 mg/dL (< 150)
[2025-06-19 04:18] LABS: Blood Urea Nitrogen 123 mg/dL (9-23)
--- NOTE | 2025-06-19 05:48 | DVH ---
CHEST RADIOGRAPH Indication: f/u Technique: Single frontal view of the chest was obtained COMPARISON: XY CHEST XRAY 1 VIEW on DOS: 06/18/25, XY CHEST XRAY 1 VIEW on DOS: 06/17/25, XY CHEST XRAY 1 VIEW on DOS: 06/16/25, XY CHEST XRAY 1 VIEW on DOS: 06/15/25, XY CHEST PORTABLE on DOS: 06/14/25 FINDINGS: Lines and Tubes: Slight interval retraction of the endotracheal tube such that the tip now projects 4 .1 cm above the level of the donna. Remaining lines and tubes unchanged. Lungs: Clear Pleura: No effusion. No pneumothorax. Cardiomediastinal contours: Unremarkable Bones: Unremarkable IMPRESSION: 1. Slight interval retraction of the endotracheal tube such that the tip now projects 4.1 cm above th e level of the donna. Remaining lines and tubes unchanged. 2. No evidence of acute cardiopulmonary process.
[2025-06-19 06:15] LABS: Base Excess -7.8 mmol/L (-2.0-3.0)
[2025-06-19 06:27] LABS: Nucleated Red Blood Cells % 1.0 %; Total Cells Counted 100.0 (100)
[2025-06-19] MEDS ORDERED: MIDAZOLAM HCL 2MG/2ML 2ml VIAL (1mg/ml) ONE (07:06)
[2025-06-19] MEDS ORDERED: fentaNYL CITRATE 100 MCG/2 ML VL ONE (07:07)
[2025-06-19] MEDS: ALBUMIN 5% 500 ML IV ONE (07:36)
--- NOTE | 2025-06-19 10:08 | DVHPN2 ---
Progress Note Date Seen: Jun 19, 2025 Medical Necessity Reason Pt with a Central, PICC or Fol: Yes The following are medically ne: Central Line, Engel Catheter Subjective Review of Systems: RESPIRATORY:Abnormal Other Systems: Patient seen and examined by myself today in follow-up, patient remained intubated on ventilator Objective vital signs Vital Sign Date Time Temp Pulse Resp B/P (MAP) Pulse Ox O2 Delivery O2 Flow Rate FiO2 06/19/25 09:43 108 27 117/42 (67) 100 30 06/19/25 07:10 Mechanical Ventilator+ 06/19/25 00:30 99.1 99.1 Total Intake and Output 06/18/25 06/18/25 06/19/25 15:00 23:00 07:00 Intake Total 1058.58 ml 997.28 ml 1227.792 ml Output Total 450 ml 425 ml Balance 1058.58 ml 547.28 ml 802.792 ml medications Current Medications Medications Dose Ordered Sig/Bárbara Route Start Time Stop Time Status Last Admin Dose Admin Ondansetron HCl 4 mg Q4HP PRN IV 06/09/25 01:00 Cancel Acetaminophen 650 mg Q6HP PRN PO 06/09/25 01:00 06/10/25 20:15 650 MG Nitroglycerin 0.4 mg Q5MINP PRN SL 06/09/25 01:00 Propofol 100 ml @ 2.16 mls/hr Q24H IV 06/11/25 12:00 06/19/25 05:18 8.64 MLS/HR Fentanyl Citrate 250 ml @ 2.5 mls/hr Q24H IV 06/11/25 12:00 06/18/25 22:31 7.5 MLS/HR Midazolam HCl 50 ml @ 1 mls/hr Q24H IV 06/11/25 14:45 06/14/25 01:02 2 MLS/HR Ipratropium [place] 0.5 mg Q6HR NEB 06/14/25 10:15 06/19/25 05:51 0.5 MG Enteral Nutritional Formula 1,000 ml 40ML/HR GT 06/14/25 10:15 Hold 06/16/25 19:52 1,000 ML Amiodarone HCL/ Dextrose 200 ml @ 16.66 mls/ hr Q12H IV 06/14/25 17:45 06/18/25 20:06 16.66 MLS/HR Levalbuterol HCl 1.25 mg Q6HR NEB 06/15/25 00:00 06/19/25 05:51 1.25 MG Levothyroxine Sodium 50 mcg QAM@0600 PO 06/16/25 06:00 Hold 06/17/25 05:39 50 MCG Amino Acid Protein 30 ml BID GT 06/15/25 13:15 Hold 06/17/25 11:03 30 ML Carvedilol 12.5 mg BID PO 06/16/25 22:00 Hold 06/17/25 11:05 12.5 MG Sodium Bicarbonate 75 ml/ Dextrose 1,075 ml @ 700 mls/hr Q1H33M IV 06/16/25 17:15 06/16/25 18:47 Cancel Pantoprazole Sodium 40 mg BID IV 06/17/25 10:00 06/18/25 22:10 40 MG Sodium Bicarbonate 100 ml/Dextrose 1,100 ml @ 75 mls/hr [id number] IV 06/17/25 10:00 06/18/25 19:39 75 MLS/HR Vancomycin HCl 0 ml @ 0 mls/hr UD IV 06/17/25 11:45 Bumetanide 1 mg BIDD IV 06/17/25 18:00 Cancel Meropenem 50 ml @ 17 mls/hr Q12H IV 06/18/25 01:00 06/19/25 01:24 17 MLS/HR Norepinephrine Bitartrate 250 ml @ 3.75 mls/hr Q24H IV 06/17/25 18:30 06/18/25 00:48 30 MLS/HR Phenylephrine HCl 250 ml @ 30 mls/hr Q8H20M IV 06/17/25 20:15 Bumetanide 12.5 mg/Miscellaneous 50 ml @ 2 mls/hr Q24H IV 06/18/25 09:15 06/18/25 20:09 2 MLS/HR Micafungin Sodium 100 mg/Sodium Chloride 100 ml @ 100 mls/hr DAILY IV 06/19/25 10:00 Amino Acids 0 ml @ 0 mls/hr PER PHARMACY IV 06/18/25 12:15 Sodium Chloride 10 meq/Sodium Acetate 10 meq/ Magnesium Sulfate 4 meq/ Multivitamins 10 ml/Chromium/ Copper/Manganese/ Zinc 1 ml/Insulin Human Regular 5 units/Amino Acids/ Dextrose/Purified Water 819.55 ml @ 34.002 mls/hr Q24H7M IV 06/18/25 22:00 06/19/25 21:59 06/18/25 22:12 34.002 MLS/HR Diagnostic Test (Pha) 1 strip Q6HR 06/19/25 00:00 06/19/25 05:47 1 STRIP Insulin Human Regular FOLLOW SLIDING SCALE Q6HR SC 06/19/25 00:00 06/19/25 05:58 8 UNITS Dextrose 50 ml UD IV 06/18/25 22:00 Examination: LUNGS:Normal, CVS:Normal, MSK:Normal laboratory and microbiology Laboratory Tests 06/19/25 03:10 Test 06/19/25 03:10 Range/Units Serum Glucose 210 H 74-106 mg/dL Microbiology Date/Time Source Procedure Growth Status 06/17/25 07:00 Stool Stool Culture - Preliminary Resulted 06/17/25 07:00 Stool Shiga Toxin I & II Pending Resulted 06/16/25 10:30 Blood Blood Culture - Preliminary NO GROWTH AFTER 48 HOURS OF INCUBATION. Resulted 06/11/25 14:25 Nose MRSA Screen - Final Complete Problem List/Assessment/Plan Problem List/Assessment/Plan Acute kidney injury on chronic kidney disease stage IIIA secondary to hemodynamic mediated, FeNa > 2% 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 Anemia chronic kidney disease Hyperglycemia Hypokalemia Hypothyroidism Chest x-ray consistent with pulmonary edema Recommendations Consents for Flavio catheter Hemodialysis Hemodialysis after catheter placement, use no heparin Epogen [id number] subQ 3 times weekly Engel catheter Strict I&Os IV bicarb drip Start Bumex IV drip 0.5 mg per hour IV antibiotic IV steroids KCL replacement Thyroid replacement Insulin sliding scale Kidney ultrasound reported within normal limit Cardiology consult We will continue to follow Plan discussed with: Other (Nurse) Dietary Evaluation Review Comments: 1) If patient remains NPO > 7 days, consider EN/TPN to meet at least 75% of estimated daily needs 2) If gut is preferred, consider Nepro @ 25 mL/hr goal rate as tolerated. Flush with 200 mL free H2O Q6H. TF regimen will provide 1080 kcals, 49g Pro, and 1236 mL free H2O per 24 hrs. TF regimen will meet ~ 92% estimated energy needs and 52% estimated protein needs. 3) Advance to 60g CCHO renal cardiac diet when medically feasible, pending ST approval 4) Refer to outpatient RD/CDCES for weight management 5) Follow-up with cardiology, pulmonology, or nephrology 6) Continue to monitor I&O, labs, and skin integrity Expected Outcomes/Goals: 1) patient to receive nutritional support within 7 days of NPO status 2) labs to improve 3) diet to advance 4) f/u in 2-3 days Sepsis reassessment post fluid Capillary Refill: < 3 seconds MARIO DALE MD Jun 19, 2025 10:08
[2025-06-19] MEDS: SODIUM CHL 0.9% 1000 ML BAG XX ONE (10:15)
--- NOTE | 2025-06-19 11:27 | DVHOP2 ---
Operative Report - 2 Report Details Date: 06/19/25 Preop Diagnosis: Open abdomen Postop Diagnosis: Necrotic segments of descending colon, with free perforation Surgeon: Jose Parada MD Composition Professor: Kan Rosado NP Anesthesiologist: Trever Anesthesia: General Consent: The patient was informed of the risks and benefits of the procedure. These include but are not limited to complications of anesthesia, postoperative infection, incomplete relief of symptoms, recurrence of symptoms, damage to blood vessels, nerves and tendons, deep venous thrombosis, pulmonary embolism and possible need for repeat surgery in the future. Estimated Blood Loss: 5 mL Findings: Patchy necrotic segments throughout the descending colon, 1 of the patches of necrosis was freely perforated, colonic contents throughout the peritoneal cavity Indications for Surgery: Open abdomen Name of Procedure Performed Exploratory laparotomy, temporary abdominal dressing takedown, resection of the descending colon, washout Procedure Details Procedure Details: Patient arrived to the operating room from the ICU intubated. She was transferred to the operating table and placed in the supine position with arms extended. General endotracheal anesthesia was induced. Time-out was observed. Previous dressing was then removed. Patient was prepped and draped in the standard sterile surgical fashion with Betadine. We then proceeded to remove the 2 lap pads that were left as part of the dressing from the previous surgery, as soon as we removed the lap pads we noted copious amount of colonic spillage throughout the peritoneal cavity. All the colonic spillage was suctioned, the cavity was then copiously irrigated and suctioned. I then focused my attention to the remaining segments of colon. I noted patchy areas of necrosis throughout the descending colon, and on 1 of those patches of necrosis the descending colon wall have perforated. Continuous stool kept coming out of the perforation site. I then introduced a pool suctioned through the hole in the colonic wall and milked all the stool towards the pool suction. Once the colon was completely decompressed I proceeded to surveyed the rest of the colon all the way down to the peritoneal reflexion and noted that the only segment that was involved with a necrotic segments was the descending colon. I then created a mesenteric rent immediately distal to the descending-sigmoid junction. A 75 mm DEBBIE with a blue load was used to transect the bowel. I then proceeded to open the white line of Toldt. I then proceeded to separate the colon from the mesocolon with ligature super jaw. The ALANA was identified and ligated with a 2 -0 silk tie. The specimen was then passed for pathology. The remaining sigmoid colon had a small dusky area, it was not resected as I decided to leave the patient open for another look tomorrow. Peritoneal cavity was then copiously irrigated with warm saline on all quadrants and suctioned. I then ran the small bowel from ileum to ligament of Treitz, and noted a small area in the jejunum with a serosal tear. Serosal tear was imbricated with a 2-0 silk suture. We then surveyed the surgical sites for any signs of bleeding, there was none. This concluded our procedure. All counts complete and correct. Abdomen was left open, dressing composed of 1 laparotomy pad over the bowel, a sheet of plastic from the fluid warmer stapled to the skin over the incision, all this place by Ioban and abdominal binder. Patient tolerated the procedure well and was transferred to ICU in critical condition. Specimen: Descending colon Condition Critical Disposition Still a Patient JOSE ALCARAZ MD Jun 19, 2025 11:27
[2025-06-19] MEDS: MICAFUNGIN SODIUM 100 MG in SODIUM CHL 0.9% 100 ML IV SCH (12:24)
[2025-06-19] MEDS: VANCOMYCIN 500mg/100mL 100 ML IV ONE (12:38)
--- NOTE | 2025-06-19 12:58 | DVHNC2 ---
Procedure - right femoral HD catheter with U/s guidance consent and time out per protocol right fem vein localized using u/sound sterile technique lidocaine 1% 5 cc for local anesthesia seldinger technique 2 lumen HD catheter placed with direct us guidance secured with 2 sutures sterile dressing no complications GIA HAYWARD MD Jun 19, 2025 12:58
--- NOTE | 2025-06-19 13:00 | DVHPN2 ---
Progress Note - Dictate Date Seen: Jun 19, 2025 Medical Necessity Reason Pt with a Central, PICC or Fol: Yes The following are medically ne: Central Line, Engel Catheter vital signs Vital Sign Date Time Temp Pulse Resp B/P (MAP) Pulse Ox O2 Delivery O2 Flow Rate FiO2 06/19/25 11:23 103 24 96/53 (67) 99 30 06/19/25 07:10 Mechanical Ventilator+ 06/19/25 00:30 99.1 99.1 Total Intake and Output 06/18/25 06/18/25 06/19/25 15:00 23:00 07:00 Intake Total 1058.58 ml 997.28 ml 1227.792 ml Output Total 450 ml 425 ml Balance 1058.58 ml 547.28 ml 802.792 ml medications Current Medications Medications Dose Ordered Sig/Bárbara Route Start Time Stop Time Status Last Admin Dose Admin Ondansetron HCl 4 mg Q4HP PRN IV 06/09/25 01:00 Cancel Acetaminophen 650 mg Q6HP PRN PO 06/09/25 01:00 06/10/25 20:15 650 MG Nitroglycerin 0.4 mg Q5MINP PRN SL 06/09/25 01:00 Propofol 100 ml @ 2.16 mls/hr Q24H IV 06/11/25 12:00 06/19/25 05:18 8.64 MLS/HR Fentanyl Citrate 250 ml @ 2.5 mls/hr Q24H IV 06/11/25 12:00 06/18/25 22:31 7.5 MLS/HR Midazolam HCl 50 ml @ 1 mls/hr Q24H IV 06/11/25 14:45 06/14/25 01:02 2 MLS/HR Ipratropium [place] 0.5 mg Q6HR NEB 06/14/25 10:15 06/19/25 11:23 0.5 MG Enteral Nutritional Formula 1,000 ml 40ML/HR GT 06/14/25 10:15 Hold 06/16/25 19:52 1,000 ML Amiodarone HCL/ Dextrose 200 ml @ 16.66 mls/ hr Q12H IV 06/14/25 17:45 06/18/25 20:06 16.66 MLS/HR Levalbuterol HCl 1.25 mg Q6HR NEB 06/15/25 00:00 06/19/25 11:24 1.25 MG Levothyroxine Sodium 50 mcg QAM@0600 PO 06/16/25 06:00 Hold 06/17/25 05:39 50 MCG Amino Acid Protein 30 ml BID GT 06/15/25 13:15 Hold 06/17/25 11:03 30 ML Carvedilol 12.5 mg BID PO 06/16/25 22:00 Hold 06/17/25 11:05 12.5 MG Sodium Bicarbonate 75 ml/ Dextrose 1,075 ml @ 700 mls/hr Q1H33M IV 06/16/25 17:15 06/16/25 18:47 Cancel Pantoprazole Sodium 40 mg BID IV 06/17/25 10:00 06/19/25 12:25 40 MG Sodium Bicarbonate 100 ml/Dextrose 1,100 ml @ 75 mls/hr [id number] IV 06/17/25 10:00 06/18/25 19:39 75 MLS/HR Vancomycin HCl 0 ml @ 0 mls/hr UD IV 06/17/25 11:45 Bumetanide 1 mg BIDD IV 06/17/25 18:00 Cancel Meropenem 50 ml @ 17 mls/hr Q12H IV 06/18/25 01:00 06/19/25 01:24 17 MLS/HR Norepinephrine Bitartrate 250 ml @ 3.75 mls/hr Q24H IV 06/17/25 18:30 06/18/25 00:48 30 MLS/HR Phenylephrine HCl 250 ml @ 30 mls/hr Q8H20M IV 06/17/25 20:15 Bumetanide 12.5 mg/Miscellaneous 50 ml @ 2 mls/hr Q24H IV 06/18/25 09:15 06/18/25 20:09 2 MLS/HR Micafungin Sodium 100 mg/Sodium Chloride 100 ml @ 100 mls/hr DAILY IV 06/19/25 10:00 06/19/25 12:24 100 MLS/HR Amino Acids 0 ml @ 0 mls/hr PER PHARMACY IV 06/18/25 12:15 Sodium Chloride 10 meq/Sodium Acetate 10 meq/ Magnesium Sulfate 4 meq/ Multivitamins 10 ml/Chromium/ Copper/Manganese/ Zinc 1 ml/Insulin Human Regular 5 units/Amino Acids/ Dextrose/Purified Water 819.55 ml @ 34.002 mls/hr Q24H7M IV 06/18/25 22:00 06/19/25 21:59 06/18/25 22:12 34.002 MLS/HR Diagnostic Test (Pha) 1 strip Q6HR 06/19/25 00:00 06/19/25 12:39 1 STRIP Insulin Human Regular FOLLOW SLIDING SCALE Q6HR SC 06/19/25 00:00 06/19/25 12:41 2 UNITS Dextrose 50 ml UD IV 06/18/25 22:00 Sodium Chloride 40 meq/Magnesium Sulfate 4 meq/ Multivitamins 10 ml/Chromium/ Copper/Manganese/ Zinc 1 ml/Insulin Human Regular 12 units/Amino Acids/ Dextrose 822.12 ml @ 34 mls/hr [id number] IV 06/19/25 22:00 06/20/25 21:59 laboratory and microbiology Laboratory Tests 06/19/25 03:10 Test 06/19/25 03:10 Range/Units Serum Glucose 210 H 74-106 mg/dL Assessment/Plan Impression Acute hypoxemic respiratory failure Acute pulmonary edema Pneumonia CHF Patient seen and examined in ICU Events On mechanical ventilation S/p intubation PEEP 6, FiO2 35% developed ischemic bowel requiring emergency sx remains on the vent developed NYASIA HD catheter placed this morning family aware of poor prognosis changed goals of care to DNR leaning towards comfort measures pt will need further OR time tmr Labs and imaging reviewed Chest x-ray shows improvement in lung aeration ABG reviewed Management continue Vent support Titrate to maintain sats 90% or above Continue antibiotics F/u cultures Bronchodilators Diurese Monitor renal function Monitor electrolytes Supplement as needed HD per nephrology Pressors as needed for hemodynamic support To maintain a mean arterial pressure of 65 mmHg DVT prophylaxis Critical care time 35 minutes Dietary Evaluation Review Comments: 1) If patient remains NPO > 7 days, consider EN/TPN to meet at least 75% of estimated daily needs 2) If gut is preferred, consider Nepro @ 25 mL/hr goal rate as tolerated. Flush with 200 mL free H2O Q6H. TF regimen will provide 1080 kcals, 49g Pro, and 1236 mL free H2O per 24 hrs. TF regimen will meet ~ 92% estimated energy needs and 52% estimated protein needs. 3) Advance to 60g CCHO renal cardiac diet when medically feasible, pending ST approval 4) Refer to outpatient RD/[facility] for weight management 5) Follow-up with cardiology, pulmonology, or nephrology 6) Continue to monitor I&O, labs, and skin integrity Expected Outcomes/Goals: 1) patient to receive nutritional support within 7 days of NPO status 2) labs to improve 3) diet to advance 4) f/u in 2-3 days Plan discussed with: Other (rn) Capillary Refill: < 3 seconds GIA HAYWARD MD Jun 19, 2025 13:00
--- NOTE | 2025-06-19 13:01 | DVHNC2 ---
Procedure - a line placement right femoral with US guidance consent and time out per protocol right fem artery localized using u/sound sterile technique lidocaine 1% 5 cc for local anesthesia seldinger technique arterial catheter advanced with direct us guidance in right fem artery secured with 2 sutures sterile dressing no complications GIA HAYWARD MD Jun 19, 2025 13:01
--- NOTE | 2025-06-19 18:26 | DVHPN2 ---
Subjective I am assuming the care of the patient from today onwards. Chart reviewed . Plan of care discussed with the bedside RN. 54-year-old female with a known history of paroxysmal AFib on amiodarone and Eliquis at home, severe aortic and mitral insufficiency, hypertension, CKD, chronic respiratory failure on home O2 secondary to COPD and congestive heart failure. Patient has received hemodialysis catheter does have acute kidney injury with a oliguria. Reviewed: Care Plan, H&P, Labs, Medications, Previous Orders, Radiology Changes from previous H/P or p: No Changes Objective Vitals Vital Signs Date Time Temp Pulse Resp B/P (MAP) Pulse Ox O2 Delivery O2 Flow Rate FiO2 06/19/25 18:15 106 24 106/38 (60) 97 06/19/25 18:00 Mechanical Ventilator+ 30 30 06/19/25 18:00 98.2 98.2 Intake/Output Intake and Output 06/19/25 07:00 Intake Total 3283.652 ml Output Total 875 ml Balance 2408.652 ml IV Total 3283.652 ml Output Urine Total 625 ml Gastric Drainage Total 250 ml Exam HEENT pupils are reactive Neck is supple CV is S1-S2 regular rate and rhythm Respiratory bilateral diminished breath sounds bases GI positive bowel sounds sluggish Extremity trace edema 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 General Appearance: severe distress, Other (Intubated, on vent) HEENT: Atraumatic, Other (ETT tube intact) Neck: Supple Lungs: Other (Decreased breath sounds bilateral, rhonchi and crackles bilateral) Cardiovascular: Regular rate, Normal S1, Normal S2, No murmurs, Gallops, Rubs Abdomen: Normal bowel sounds, Soft, No tenderness Medications Current Medications Medications Dose Ordered Sig/Bárbara Route Start Time Stop Time Status Last Admin Dose Admin Ondansetron HCl 4 mg Q4HP PRN IV 06/09/25 01:00 Cancel Acetaminophen 650 mg Q6HP PRN PO 06/09/25 01:00 06/10/25 20:15 650 MG Nitroglycerin 0.4 mg Q5MINP PRN SL 06/09/25 01:00 Propofol 100 ml @ 2.16 mls/hr Q24H IV 06/11/25 12:00 06/19/25 05:18 8.64 MLS/HR Fentanyl Citrate 250 ml @ 2.5 mls/hr Q24H IV 06/11/25 12:00 06/18/25 22:31 7.5 MLS/HR Midazolam HCl 50 ml @ 1 mls/hr Q24H IV 06/11/25 14:45 06/14/25 01:02 2 MLS/HR Ipratropium [place] 0.5 mg Q6HR NEB 06/14/25 10:15 06/19/25 11:23 0.5 MG Enteral Nutritional Formula 1,000 ml 40ML/HR GT 06/14/25 10:15 Hold 06/16/25 19:52 1,000 ML Amiodarone HCL/ Dextrose 200 ml @ 16.66 mls/ hr Q12H IV 06/14/25 17:45 06/19/25 15:06 16.66 MLS/HR Levalbuterol HCl 1.25 mg Q6HR NEB 06/15/25 00:00 06/19/25 11:24 1.25 MG Levothyroxine Sodium 50 mcg QAM@0600 PO 06/16/25 06:00 Hold 06/17/25 05:39 50 MCG Amino Acid Protein 30 ml BID GT 06/15/25 13:15 Hold 06/17/25 11:03 30 ML Carvedilol 12.5 mg BID PO 06/16/25 22:00 Hold 06/17/25 11:05 12.5 MG Sodium Bicarbonate 75 ml/ Dextrose 1,075 ml @ 700 mls/hr Q1H33M IV 06/16/25 17:15 06/16/25 18:47 Cancel Pantoprazole Sodium 40 mg BID IV 06/17/25 10:00 06/19/25 12:25 40 MG Sodium Bicarbonate 100 ml/Dextrose 1,100 ml @ 75 mls/hr [id number] IV 06/17/25 10:00 06/19/25 15:07 75 MLS/HR Vancomycin HCl 0 ml @ 0 mls/hr UD IV 06/17/25 11:45 Bumetanide 1 mg BIDD IV 06/17/25 18:00 Cancel Meropenem 50 ml @ 17 mls/hr Q12H IV 06/18/25 01:00 06/19/25 15:05 17 MLS/HR Norepinephrine Bitartrate 250 ml @ 3.75 mls/hr Q24H IV 06/17/25 18:30 06/19/25 15:06 11.25 MLS/HR Phenylephrine HCl 250 ml @ 30 mls/hr Q8H20M IV 06/17/25 20:15 Bumetanide 12.5 mg/Miscellaneous 50 ml @ 2 mls/hr Q24H IV 06/18/25 09:15 06/18/25 20:09 2 MLS/HR Micafungin Sodium 100 mg/Sodium Chloride 100 ml @ 100 mls/hr DAILY IV 06/19/25 10:00 06/19/25 12:24 100 MLS/HR Amino Acids 0 ml @ 0 mls/hr PER PHARMACY IV 06/18/25 12:15 Sodium Chloride 10 meq/Sodium Acetate 10 meq/ Magnesium Sulfate 4 meq/ Multivitamins 10 ml/Chromium/ Copper/Manganese/ Zinc 1 ml/Insulin Human Regular 5 units/Amino Acids/ Dextrose/Purified Water 819.55 ml @ 34.002 mls/hr Q24H7M IV 06/18/25 22:00 06/19/25 21:59 06/18/25 22:12 34.002 MLS/HR Diagnostic Test (Pha) 1 strip Q6HR 06/19/25 00:00 06/19/25 12:39 1 STRIP Insulin Human Regular FOLLOW SLIDING SCALE Q6HR SC 06/19/25 00:00 06/19/25 12:41 2 UNITS Dextrose 50 ml UD IV 06/18/25 22:00 Sodium Chloride 40 meq/Magnesium Sulfate 4 meq/ Multivitamins 10 ml/Chromium/ Copper/Manganese/ Zinc 1 ml/Insulin Human Regular 12 units/Amino Acids/ Dextrose 822.12 ml @ 34 mls/hr [id number] IV 06/19/25 22:00 06/20/25 21:59 Laboratory Results Laboratory Tests 06/19/25 03:10 Chemistry Test 06/19/25 03:10 Albumin 2.4 g/dL (3.2-4.8) L Calcium Level 8.0 mg/dL (8.7-10.4) L Magnesium Level 2.0 mg/dL (1.6-2.6) Phosphorus Level 10.6 mg/dL (2.4-5.1) H Total Protein 4.6 g/dL (5.7-8.2) L Lipid panel Test 06/19/25 03:10 Triglycerides Level 584 mg/dL (< 150) H LFT Test 06/19/25 03:10 Alanine Aminotransferase (ALT) 38 U/L (7-40) Alkaline Phosphatase 159 U/L (46-116) H Aspartate Amino Transferase (AST) 83 U/L (13-40) H Total Bilirubin 0.3 mg/dL (0.2-1.0) Urinalysis Test 06/09/25 16:55 06/14/25 11:50 Urine Color Colorless (Yellow) Urine Clarity Clear (Clear) Urine pH 5.5 (5.0-9.0) Urine Specific [place] 1.007 (1.001-1.035) Urine Protein Negative (Negative) Urine Ketones Negative (Negative) Urine Blood 2+ /uL (Negative) H Urine Nitrite Negative (Negative) Urine Bilirubin Negative (Negative) Urine Urobilinogen Normal mg/dL (Negative) Urine Leukocyte Esterase Negative /uL (Negative) Urine RBC 38 /hpf (0 - 4) Urine Microscopic WBC 1 /HPF (0-5) Urine Squamous Epithelial Cells Few /hpf (<5) Urine Bacteria None seen /hpf (None Seen) Urine Glucose Normal mg/dL (Normal) Urine Creatinine 27.77 mg/dL (30.0-125.0) L Urine Protein/Creatinine Ratio 1.72 Urine Sodium 73 mmol/L (40-220) Urine Total Protein 47.7 mg/dL (1-14) H Blood Gas Results Test 06/19/25 06:08 Arterial Blood pH 7.422 (7.350-7.450) FiO2 % 30.0 Microbiology Microbiology Date/Time Source Procedure Growth Status 06/17/25 07:00 Stool Stool Culture - Preliminary Resulted 06/17/25 07:00 Stool Shiga Toxin I & II Pending Resulted 06/16/25 10:30 Blood Blood Culture - Preliminary NO GROWTH AFTER 72 HOURS OF INCUBATION. Resulted 06/11/25 14:25 Nose MRSA Screen - Final Complete Assessment/Plan Assessment/Plan 54-year-old female with a known history of hypertension, paroxysmal AFib, chronic respiratory failure on home O2, COPD, congestive heart failure with a preserved EF, severe aortic and mitral valve insufficiency who initially presented to the hospital with the increasing shortness a breath found to have 1. Acute hypoxic respiratory failure secondary to acute CHF exacerbation currently on Bumex drip 2. Acute CHF exacerbation with a preserved ejection fraction. Currently on IV diuretics 3. Acute kidney injury with oliguria status post hemodialysis catheter placement 4. Acute anemia status post 2 units of packed RBC, watch for any active evidence of bleeding 5. Paroxysmal AFib currently in normal sinus rhythm , on amiodarone drip 6. Hypotension requiring IV Levophed 7. Megacolon with a pneumatosis of the ascending and transverse colon status postExploratory laparotomy, mobilization of hepatic flexure, mobilization of splenic flexure, resection of ascending and transverse colon, temporary abdominal closure on 06/17 8. Necrotic segment of descending colon with a patchy free perforation status post Exploratory laparotomy, temporary abdominal dressing takedown, resection of the descending colon, 06/19. 9. Leukocytosis 10. Sepsis secondary pneumonia 11. Metabolic acidosis secondary to acute kidney injury -continue IV vancomycin, meropenem, micafungin, hemodialysis per Nephrology, follow up General surgery, patient has remained intubated and sedated. Family was updated at bedside. Plan discussed with: Other (Bedside RN.) Date of Service: Jun 19, 2025 Billing Provider: GEORGIANA NOEL MD Common Visit Codes: [id number] INP/OBS CARE(HIGH) GEORGIANA NOEL MD Jun 19, 2025 18:26
--- NOTE | 2025-06-19 19:21 | DVHPN2 ---
Progress Note - Dictate Date Seen: Jun 19, 2025 Medical Necessity Reason Pt with a Central, PICC or Fol: Yes The following are medically ne: Central Line, Engel Catheter Subjective Patient was seen and evaluated in follow up in the ICU. Patient is intubated and sedated on ventilator. 30% FiO2. Early this am, patient is noted to be in A-fib RVR in the 160's. WBC 35.8, HGB 7.6, HCT 23.2, CO2 18, BUN 123, [employer] 3.63, GLUC 204, CA 8, AST 83. vital signs Vital Sign Date Time Temp Pulse Resp B/P (MAP) Pulse Ox O2 Delivery O2 Flow Rate FiO2 06/19/25 11:23 103 24 96/53 (67) 99 30 06/19/25 07:10 Mechanical Ventilator+ 06/19/25 00:30 99.1 99.1 Total Intake and Output 06/18/25 06/18/25 06/19/25 15:00 23:00 07:00 Intake Total 1058.58 ml 997.28 ml 1227.792 ml Output Total 450 ml 425 ml Balance 1058.58 ml 547.28 ml 802.792 ml medications Current Medications Medications Dose Ordered Sig/Bárbara Route Start Time Stop Time Status Last Admin Dose Admin Ondansetron HCl 4 mg Q4HP PRN IV 06/09/25 01:00 Cancel Acetaminophen 650 mg Q6HP PRN PO 06/09/25 01:00 06/10/25 20:15 650 MG Nitroglycerin 0.4 mg Q5MINP PRN SL 06/09/25 01:00 Propofol 100 ml @ 2.16 mls/hr Q24H IV 06/11/25 12:00 06/19/25 05:18 8.64 MLS/HR Fentanyl Citrate 250 ml @ 2.5 mls/hr Q24H IV 06/11/25 12:00 06/18/25 22:31 7.5 MLS/HR Midazolam HCl 50 ml @ 1 mls/hr Q24H IV 06/11/25 14:45 06/14/25 01:02 2 MLS/HR Ipratropium [place] 0.5 mg Q6HR NEB 06/14/25 10:15 06/19/25 11:23 0.5 MG Enteral Nutritional Formula 1,000 ml 40ML/HR GT 06/14/25 10:15 Hold 06/16/25 19:52 1,000 ML Amiodarone HCL/ Dextrose 200 ml @ 16.66 mls/ hr Q12H IV 06/14/25 17:45 06/18/25 20:06 16.66 MLS/HR Levalbuterol HCl 1.25 mg Q6HR NEB 06/15/25 00:00 06/19/25 11:24 1.25 MG Levothyroxine Sodium 50 mcg QAM@0600 PO 06/16/25 06:00 Hold 06/17/25 05:39 50 MCG Amino Acid Protein 30 ml BID GT 06/15/25 13:15 Hold 06/17/25 11:03 30 ML Carvedilol 12.5 mg BID PO 06/16/25 22:00 Hold 06/17/25 11:05 12.5 MG Sodium Bicarbonate 75 ml/ Dextrose 1,075 ml @ 700 mls/hr Q1H33M IV 06/16/25 17:15 06/16/25 18:47 Cancel Pantoprazole Sodium 40 mg BID IV 06/17/25 10:00 06/18/25 22:10 40 MG Sodium Bicarbonate 100 ml/Dextrose 1,100 ml @ 75 mls/hr [id number] IV 06/17/25 10:00 06/18/25 19:39 75 MLS/HR Vancomycin HCl 0 ml @ 0 mls/hr UD IV 06/17/25 11:45 Bumetanide 1 mg BIDD IV 06/17/25 18:00 Cancel Meropenem 50 ml @ 17 mls/hr Q12H IV 06/18/25 01:00 06/19/25 01:24 17 MLS/HR Norepinephrine Bitartrate 250 ml @ 3.75 mls/hr Q24H IV 06/17/25 18:30 06/18/25 00:48 30 MLS/HR Phenylephrine HCl 250 ml @ 30 mls/hr Q8H20M IV 06/17/25 20:15 Bumetanide 12.5 mg/Miscellaneous 50 ml @ 2 mls/hr Q24H IV 06/18/25 09:15 06/18/25 20:09 2 MLS/HR Micafungin Sodium 100 mg/Sodium Chloride 100 ml @ 100 mls/hr DAILY IV 06/19/25 10:00 Amino Acids 0 ml @ 0 mls/hr PER PHARMACY IV 06/18/25 12:15 Sodium Chloride 10 meq/Sodium Acetate 10 meq/ Magnesium Sulfate 4 meq/ Multivitamins 10 ml/Chromium/ Copper/Manganese/ Zinc 1 ml/Insulin Human Regular 5 units/Amino Acids/ Dextrose/Purified Water 819.55 ml @ 34.002 mls/hr Q24H7M IV 06/18/25 22:00 06/19/25 21:59 06/18/25 22:12 34.002 MLS/HR Diagnostic Test (Pha) 1 strip Q6HR 06/19/25 00:00 06/19/25 05:47 1 STRIP Insulin Human Regular FOLLOW SLIDING SCALE Q6HR SC 06/19/25 00:00 06/19/25 05:58 8 UNITS Dextrose 50 ml UD IV 06/18/25 22:00 Sodium Chloride 40 meq/Magnesium Sulfate 4 meq/ Multivitamins 10 ml/Chromium/ Copper/Manganese/ Zinc 1 ml/Insulin Human Regular 12 units/Amino Acids/ Dextrose 822.12 ml @ 34 mls/hr [id number] IV 06/19/25 22:00 06/20/25 21:59 objective GENERAL: Ill appearing, intubated on ventilator. EYES: PERRL, EOMI. Anicteric. HENT: Moist mucous membranes. LUNGS: Decreased breath sounds. CARDIOVASCULAR: Regular rate and rhythm. ABDOMEN: Soft, nontender and nondistended. EXTREMITIES: No edema. NEUROLOGIC: No focal neurological deficits. SKIN: Warm, dry. laboratory and microbiology Laboratory Tests 06/19/25 03:10 Test 06/19/25 03:10 Range/Units Serum Glucose 210 H 74-106 mg/dL Problem List Chronic HFpEF, NYHA class IV. Paroxysmal atrial fibrillation, stage III, now NSR (on amiodarone/Elqiuis therapy). Severe aortic valve and mitral valve insufficiency. Acute hypoxic respiratory failure. Asthma. Chronic kidney disease. Thyroid disease. Prediabetes, newly diagnosed. Morbid obesity. History of tobacco use. Assessment/Plan Continued all current supportive medical care. IV antibiotics as ordered. Nebulized breathing treatments. Additional plan as per the hospital course. Critical care time of 45 minutes provided to include time spent evaluation of patient at bedside, when appropriate patient/family education for diagnosis, treatment plan, review of pertinent medical information and discussion of care with specialty providers and PCP. Mechanical ventilator parameters, treatment and adjustments have personally been reviewed by me and treatment plan by compressed air pile driver operator has also been reviewed. Dietary Evaluation Review Comments: 1) If patient remains NPO > 7 days, consider EN/TPN to meet at least 75% of estimated daily needs 2) If gut is preferred, consider Nepro @ 25 mL/hr goal rate as tolerated. Flush with 200 mL free H2O Q6H. TF regimen will provide 1080 kcals, 49g Pro, and 1236 mL free H2O per 24 hrs. TF regimen will meet ~ 92% estimated energy needs and 52% estimated protein needs. 3) Advance to 60g CCHO renal cardiac diet when medically feasible, pending ST approval 4) Refer to outpatient RD/CDCES for weight management 5) Follow-up with cardiology, pulmonology, or nephrology 6) Continue to monitor I&O, labs, and skin integrity Expected Outcomes/Goals: 1) patient to receive nutritional support within 7 days of NPO status 2) labs to improve 3) diet to advance 4) f/u in 2-3 days Plan discussed with: Other Capillary Refill: < 3 seconds URBANO TRUONG MD Jun 19, 2025 11:35
[2025-06-19] MEDS: EPOETIN ALFA-EPBX 10,000 UNIT/1ML VIAL SC ONE (20:59)
[2025-06-19] MEDS: TPN PER PHARMACY IV NR (21:22)
[2025-06-19] MEDS: AMIODARONE 360mg/200mL PREMIX 200 ML IV ONE (22:45)
[2025-06-20] VITALS (93 sets, daily range): BP systolic 92–141; BP diastolic 34–61; PULSE 108–147; RESP 24; TEMP 98.3–99; O2SAT 93–99
[2025-06-20 01:37] LABS: Hematocrit 18.9 % (36.0-46.0); Mean Corpuscular Hemoglobin 27.4 pg (28.0-32.0); Mean Corpuscular Volume 82.3 fL (80.0-100.0)
[2025-06-20 01:40] LABS: Anion Gap 21 (5-15); BUN/Creatinine Ratio 34.5 (10.0-20.0); Bilirubin, Total 0.3 mg/dL (0.2-1.0); Magnesium 1.8 mg/dL (1.6-2.6); Potassium 4.6 mmol/L (3.5-5.1)
[2025-06-20 01:42] LABS: INR 1.11 (0.9-1.15); Partial Thromboplastin Time 37.2 SEC (24.5-34.5); Prothrombin Time 11.6 sec (9.3-11.8)
[2025-06-20 01:55] LABS: Alanine Aminotransferase 53 U/L (7-40); Albumin 2.3 g/dL (3.2-4.8); Alkaline Phosphatase 163 U/L (46-116); Calcium 8.1 mg/dL (8.7-10.4); Carbon Dioxide 18 mmol/L (20-31); Chloride 91 mmol/L (98-107); Glucose 204 mg/dL (74-106); Sodium 130 mmol/L (136-145); Total Protein 4.0 g/dL (5.7-8.2)
[2025-06-20 01:57] LABS: Blood Urea Nitrogen 143 mg/dL (9-23)
[2025-06-20 02:02] LABS: Hemoglobin 6.3 g/dL (12.2-16.2)
[2025-06-20 02:31] LABS: Total Cells Counted 100.0 (100)
[2025-06-20 02:32] LABS: Anisocytosis Slight
[2025-06-20] MEDS: MAGNESIUM SULFATE 1GM/100ML 100 ML IV ONE ×2 (04:45→05:00)
[2025-06-20] MEDS: AMIODARONE 360mg/200mL PREMIX 200 ML IV SCH (05:22)
--- NOTE | 2025-06-20 06:01 | DVH ---
CHEST RADIOGRAPH Indication: INTUBATED PATIENT Technique: Single frontal view of the chest was obtained Comparison: XY CHEST XRAY 1 VIEW on DOS: 06/19/25, XY CHEST XRAY 1 VIEW on DOS: 06/18/25, XY CHEST XRAY 1 VIEW on DOS: 06/17/25 IMPRESSION: Support lines and tubes appear unchanged in satisfactory position. Postsurgical changes of the abdom en. No focal airspace opacity, sizable effusion or pneumothorax. Mild pulmonary vascular congestion. No significant interval change.
[2025-06-20] MEDS ORDERED: PHENYLEPHRINE HCL 10 MG/ML VL ONE (07:05)
[2025-06-20] MEDS ORDERED: ROCURONIUM 10MG/ML 10ML VIAL IV ONE (07:05)
[2025-06-20] MEDS ORDERED: ONDANSETRON HCL 4 MG/2 ML VIAL ONE (08:43)
[2025-06-20] MEDS ORDERED: METOCLOPRAMIDE HCL 5MG/ml INJ 2ml VIAL ONE (08:43)
--- NOTE | 2025-06-20 12:14 | DVHPN2 ---
Progress Note - Surgical Date Seen: Jun 20, 2025 Post op day Post op day: 3 Subjective Patient reports: Other (Intubated and sedated) Review of Systems: Deferred Objective Vital signs Vital Sign Date Time Temp Pulse Resp B/P (MAP) Pulse Ox O2 Delivery O2 Flow Rate FiO2 06/20/25 11:45 116 24 122/47 (72) 93 30 06/20/25 05:51 Mechanical Ventilator+ 06/20/25 05:31 99.0 99.0 Total Intake and Output 06/19/25 06/19/25 06/20/25 15:00 23:00 07:00 Intake Total 1461.944 ml 1421.086 ml 1544.48 ml Output Total 300 ml 625 ml Balance 1461.944 ml 1121.086 ml 919.48 ml Medications Current Medications Medications Dose Ordered Sig/Bárbara Route Start Time Stop Time Status Last Admin Dose Admin Ondansetron HCl 4 mg Q4HP PRN IV 06/09/25 01:00 Cancel Acetaminophen 650 mg Q6HP PRN PO 06/09/25 01:00 06/10/25 20:15 650 MG Nitroglycerin 0.4 mg Q5MINP PRN SL 06/09/25 01:00 Propofol 100 ml @ 2.16 mls/hr Q24H IV 06/11/25 12:00 06/20/25 05:23 4.32 MLS/HR Fentanyl Citrate 250 ml @ 2.5 mls/hr Q24H IV 06/11/25 12:00 06/18/25 22:31 7.5 MLS/HR Midazolam HCl 50 ml @ 1 mls/hr Q24H IV 06/11/25 14:45 06/14/25 01:02 2 MLS/HR Ipratropium [place] 0.5 mg Q6HR NEB 06/14/25 10:15 06/20/25 11:45 0.5 MG Enteral Nutritional Formula 1,000 ml 40ML/HR GT 06/14/25 10:15 Hold 06/16/25 19:52 1,000 ML Levalbuterol HCl 1.25 mg Q6HR NEB 06/15/25 00:00 06/20/25 11:45 1.25 MG Levothyroxine Sodium 50 mcg QAM@0600 PO 06/16/25 06:00 Hold 06/17/25 05:39 50 MCG Amino Acid Protein 30 ml BID GT 06/15/25 13:15 Hold 06/17/25 11:03 30 ML Carvedilol 12.5 mg BID PO 06/16/25 22:00 Hold 06/17/25 11:05 12.5 MG Sodium Bicarbonate 75 ml/ Dextrose 1,075 ml @ 700 mls/hr Q1H33M IV 06/16/25 17:15 06/16/25 18:47 Cancel Pantoprazole Sodium 40 mg BID IV 06/17/25 10:00 06/19/25 21:00 40 MG Sodium Bicarbonate 100 ml/Dextrose 1,100 ml @ 75 mls/hr [id number] IV 06/17/25 10:00 06/19/25 15:07 75 MLS/HR Vancomycin HCl 0 ml @ 0 mls/hr UD IV 06/17/25 11:45 Bumetanide 1 mg BIDD IV 06/17/25 18:00 Cancel Norepinephrine Bitartrate 250 ml @ 3.75 mls/hr Q24H IV 06/17/25 18:30 06/19/25 15:06 11.25 MLS/HR Phenylephrine HCl 250 ml @ 30 mls/hr Q8H20M IV 06/17/25 20:15 Bumetanide 12.5 mg/Miscellaneous 50 ml @ 2 mls/hr Q24H IV 06/18/25 09:15 06/19/25 21:01 2 MLS/HR Micafungin Sodium 100 mg/Sodium Chloride 100 ml @ 100 mls/hr DAILY IV 06/19/25 10:00 06/19/25 12:24 100 MLS/HR Amino Acids 0 ml @ 0 mls/hr PER PHARMACY IV 06/18/25 12:15 Diagnostic Test (Pha) 1 strip Q6HR 06/19/25 00:00 06/20/25 05:39 1 STRIP Insulin Human Regular FOLLOW SLIDING SCALE Q6HR SC 06/19/25 00:00 06/20/25 05:41 8 UNITS Dextrose 50 ml UD IV 06/18/25 22:00 Sodium Chloride 40 meq/Magnesium Sulfate 4 meq/ Multivitamins 10 ml/Chromium/ Copper/Manganese/ Zinc 1 ml/Insulin Human Regular 12 units/Amino Acids/ Dextrose 822.12 ml @ 34 mls/hr [id number] IV 06/19/25 22:00 06/20/25 21:59 06/19/25 21:22 34 MLS/HR Amiodarone HCL/ Dextrose 200 ml @ 16.66 mls/ hr Q12H IV 06/20/25 05:00 06/20/25 05:22 16.66 MLS/HR Sodium Chloride 40 meq/Sodium Acetate 30 meq/ Potassium Chloride 10 meq/ Magnesium Sulfate 8 meq/ Multivitamins 10 ml/Chromium/ Copper/Manganese/ Zinc 1 ml/Insulin Human Regular 17 units/Amino Acids/ Dextrose 843.17 ml @ 35 mls/hr Q24H6M IV 06/20/25 22:00 06/21/25 21:59 Meropenem 50 ml @ 17 mls/hr DAILY@0100 IV 06/21/25 01:00 Meropenem 50 ml @ 17 mls/hr Q12HR IV 06/20/25 13:00 UNV Laboratory Laboratory Tests 06/20/25 01:07 Test 06/20/25 01:07 Range/Units Serum Glucose 204 H 74-106 mg/dL Microbiology Date/Time Source Procedure Growth Status 06/17/25 07:00 Stool Stool Culture - Preliminary Resulted 06/17/25 07:00 Stool Shiga Toxin I & II Pending Resulted 06/16/25 10:30 Blood Blood Culture - Preliminary NO GROWTH AFTER 72 HOURS OF INCUBATION. Resulted 06/11/25 14:25 Nose MRSA Screen - Final Complete Examination: GENERAL:Abnormal (Intubated and sedated), HEENT:Abnormal (ETT/OG tube in place), ABDOMEN:Abnormal (Open abdomen with temporary there is an in place, some serosanguineous drainage, no grimacing) Labs and/or images reviewed: Labs reviewed by me (Leukocytosis down trending, hemoglobin low at 6.2 getting transfused) Problem List/Assessment/Plan Assessment and Plan Mrs. Penaloza is a 54-year-old female who has been in the hospital since June 08 due to pneumonia and CHF exacerbation that resulted in intubation. I was consulted on 06/17 due to sever colonic distention and pneumatosis seen on CT from that day. Pt is currently POD 3 from initial surgery, but required a takeback yesterday due to open abdomen. Will take back to OR today for possible anastomosis and closure. Surgeries: 06/17: Exploratory laparotomy, subtotal colectomy (resection of ascending and transverse colon), temporary abdominal closure 06/19: Exploratory laparotomy, takedown of temporary abdominal dressing, wash out, resection of descending colon 1. Booked for ex lap, and all indicated procedures 2. NPO strict 3. OG tube to LIS 4. Continue with IV antibiotics My Orders My Orders Orders - SONAM ALCARAZ MD Procedure Category Date Status Time * Wound Consult CONS 06/20/25 Transmitted Npo (Nothing By DIET 06/20/25 Transmitted Mouth) Diet Lunch Plan discussed with Plan discussed with: Spouse, Daughter Visit Coding Surgery Date of Service if different f: Jun 20, 2025 Billing Provider: SOANM ALCARAZ MD Surgery Visit Codes: [id number] INP/OBS CARE(HIGH) SONAM ALCARAZ MD Jun 20, 2025 12:14
--- NOTE | 2025-06-20 12:35 | DVHPN2 ---
Progress Note Date Seen: Jun 20, 2025 Medical Necessity Reason Pt with a Central, PICC or Fol: Yes The following are medically ne: Central Line, Engel Catheter Subjective Review of Systems: RESPIRATORY:Abnormal Other Systems: Patient seen and examined by myself today in follow-up, patient remained intubated Patient examined hemodialysis, blood pressure stable Objective vital signs Vital Sign Date Time Temp Pulse Resp B/P (MAP) Pulse Ox O2 Delivery O2 Flow Rate FiO2 06/20/25 11:45 116 24 122/47 (72) 93 30 06/20/25 11:43 98.4 98.4 06/20/25 05:51 Mechanical Ventilator+ Total Intake and Output 06/19/25 06/19/25 06/20/25 15:00 23:00 07:00 Intake Total 1461.944 ml 1421.086 ml 1544.48 ml Output Total 300 ml 625 ml Balance 1461.944 ml 1121.086 ml 919.48 ml medications Current Medications Medications Dose Ordered Sig/Bárbara Route Start Time Stop Time Status Last Admin Dose Admin Ondansetron HCl 4 mg Q4HP PRN IV 06/09/25 01:00 Cancel Acetaminophen 650 mg Q6HP PRN PO 06/09/25 01:00 06/10/25 20:15 650 MG Nitroglycerin 0.4 mg Q5MINP PRN SL 06/09/25 01:00 Propofol 100 ml @ 2.16 mls/hr Q24H IV 06/11/25 12:00 06/20/25 05:23 4.32 MLS/HR Fentanyl Citrate 250 ml @ 2.5 mls/hr Q24H IV 06/11/25 12:00 06/18/25 22:31 7.5 MLS/HR Midazolam HCl 50 ml @ 1 mls/hr Q24H IV 06/11/25 14:45 06/14/25 01:02 2 MLS/HR Ipratropium [place] 0.5 mg Q6HR NEB 06/14/25 10:15 06/20/25 11:45 0.5 MG Enteral Nutritional Formula 1,000 ml 40ML/HR GT 06/14/25 10:15 Hold 06/16/25 19:52 1,000 ML Levalbuterol HCl 1.25 mg Q6HR NEB 06/15/25 00:00 06/20/25 11:45 1.25 MG Levothyroxine Sodium 50 mcg QAM@0600 PO 06/16/25 06:00 Hold 06/17/25 05:39 50 MCG Amino Acid Protein 30 ml BID GT 06/15/25 13:15 Hold 06/17/25 11:03 30 ML Carvedilol 12.5 mg BID PO 06/16/25 22:00 Hold 06/17/25 11:05 12.5 MG Sodium Bicarbonate 75 ml/ Dextrose 1,075 ml @ 700 mls/hr Q1H33M IV 06/16/25 17:15 06/16/25 18:47 Cancel Pantoprazole Sodium 40 mg BID IV 06/17/25 10:00 06/19/25 21:00 40 MG Sodium Bicarbonate 100 ml/Dextrose 1,100 ml @ 75 mls/hr [id number] IV 06/17/25 10:00 06/19/25 15:07 75 MLS/HR Vancomycin HCl 0 ml @ 0 mls/hr UD IV 06/17/25 11:45 Bumetanide 1 mg BIDD IV 06/17/25 18:00 Cancel Norepinephrine Bitartrate 250 ml @ 3.75 mls/hr Q24H IV 06/17/25 18:30 06/19/25 15:06 11.25 MLS/HR Phenylephrine HCl 250 ml @ 30 mls/hr Q8H20M IV 06/17/25 20:15 Bumetanide 12.5 mg/Miscellaneous 50 ml @ 2 mls/hr Q24H IV 06/18/25 09:15 06/19/25 21:01 2 MLS/HR Micafungin Sodium 100 mg/Sodium Chloride 100 ml @ 100 mls/hr DAILY IV 06/19/25 10:00 06/19/25 12:24 100 MLS/HR Amino Acids 0 ml @ 0 mls/hr PER PHARMACY IV 06/18/25 12:15 Diagnostic Test (Pha) 1 strip Q6HR 06/19/25 00:00 06/20/25 05:39 1 STRIP Insulin Human Regular FOLLOW SLIDING SCALE Q6HR SC 06/19/25 00:00 06/20/25 05:41 8 UNITS Dextrose 50 ml UD IV 06/18/25 22:00 Sodium Chloride 40 meq/Magnesium Sulfate 4 meq/ Multivitamins 10 ml/Chromium/ Copper/Manganese/ Zinc 1 ml/Insulin Human Regular 12 units/Amino Acids/ Dextrose 822.12 ml @ 34 mls/hr [id number] IV 06/19/25 22:00 06/20/25 21:59 06/19/25 21:22 34 MLS/HR Amiodarone HCL/ Dextrose 200 ml @ 16.66 mls/ hr Q12H IV 06/20/25 05:00 06/20/25 05:22 16.66 MLS/HR Sodium Chloride 40 meq/Sodium Acetate 30 meq/ Potassium Chloride 10 meq/ Magnesium Sulfate 8 meq/ Multivitamins 10 ml/Chromium/ Copper/Manganese/ Zinc 1 ml/Insulin Human Regular 17 units/Amino Acids/ Dextrose 843.17 ml @ 35 mls/hr Q24H6M IV 06/20/25 22:00 06/21/25 21:59 Meropenem 50 ml @ 17 mls/hr DAILY@0100 IV 06/21/25 01:00 Cancel Meropenem 50 ml @ 17 mls/hr Q12HR IV 06/20/25 13:00 Examination: LUNGS:Normal, CVS:Normal, ABDOMEN:Abnormal, MSK:Normal laboratory and microbiology Laboratory Tests 06/20/25 01:07 Test 06/20/25 01:07 Range/Units Serum Glucose 204 H 74-106 mg/dL Microbiology Date/Time Source Procedure Growth Status 06/17/25 07:00 Stool Stool Culture - Preliminary Resulted 06/17/25 07:00 Stool Shiga Toxin I & II Pending Resulted 06/16/25 10:30 Blood Blood Culture - Preliminary NO GROWTH AFTER 72 HOURS OF INCUBATION. Resulted 06/11/25 14:25 Nose MRSA Screen - Final Complete Problem List/Assessment/Plan Problem List/Assessment/Plan Acute kidney injury on chronic kidney disease stage IIIA secondary to hemodynamic mediated, FeNa > 2% 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 IV antibiotic IV steroids KCL replacement Thyroid replacement Insulin sliding scale Kidney ultrasound reported within normal limit Surgery on board We will continue to follow Plan discussed with: Other Dietary Evaluation Review Comments: 1) If patient remains NPO > 7 days, consider EN/TPN to meet at least 75% of estimated daily needs 2) If gut is preferred, consider Nepro @ 25 mL/hr goal rate as tolerated. Flush with 200 mL free H2O Q6H. TF regimen will provide 1080 kcals, 49g Pro, and 1236 mL free H2O per 24 hrs. TF regimen will meet ~ 92% estimated energy needs and 52% estimated protein needs. 3) Advance to 60g CCHO renal cardiac diet when medically feasible, pending ST approval 4) Refer to outpatient RD/[facility] for weight management 5) Follow-up with cardiology, pulmonology, or nephrology 6) Continue to monitor I&O, labs, and skin integrity Expected Outcomes/Goals: 1) patient to receive nutritional support within 7 days of NPO status 2) labs to improve 3) diet to advance 4) f/u in 2-3 days Sepsis reassessment post fluid Capillary Refill: < 3 seconds MARIO DALE MD Jun 20, 2025 12:35
--- NOTE | 2025-06-20 12:37 | DVHOP2 ---
Operative Report - 2 Report Details Date: 06/20/25 Preop Diagnosis: Open abdomen Postop Diagnosis: Same Surgeon: Jose Parada MD Director Consumer: Kan Rosado NP Anesthesiologist: Parth gonzales CRNA Anesthesia: General Drains: 19 [place] round channel drains x2 Consent: The patient was informed of the risks and benefits of the procedure. These include but are not limited to complications of anesthesia, postoperative infection, incomplete relief of symptoms, recurrence of symptoms, damage to blood vessels, nerves and tendons, deep venous thrombosis, pulmonary embolism and possible need for repeat surgery in the future. Estimated Blood Loss: 15 mL Findings: Some fibrinous tissue over small intestines. No further bowel ischemia or necrosis. Indications for Surgery: Open abdomen Name of Procedure Performed Exploratory laparotomy, temporary abdominal dressing takedown, ileocolic anastomosis, protective loop ileostomy, washout, fascial closure Procedure Details Procedure Details: Patient arrived to the operating room from the ICU intubated. She was transferred to the operating table and placed in the supine position with arms extended. General endotracheal anesthesia was induced. Time-out was observed. Previous dressing was then removed. Patient was prepped and draped in the standard sterile surgical fashion with Betadine. I then proceeded to evaluate the remaining colon, no further areas of necrosis or ischemia. The small bowel was surveyed from ileum to ligament of Treitz, no abnormalities noted. The peritoneal cavity was then copiously irrigated with sterile saline until effluent was clear. At this point I decided to anastomose the patient. The terminal ileum was laid in a anti peristaltic fashion to the sigmoid colon. Two retention sutures were placed close to the mesentery of the loops of bowel as retention, they were 4 cm apart. Both bowel loops were properly aligned and without tension. At this point I performed the enterotomies in the sigmoid colon and the ileum. I then proceeded to make the common channel with 2 blue loads, 60 mm, Endo-DEBBIE. I then grasped the bowel ends with Allis clamps and proceeded to close the enterotomies with a blue load 75 mm DEBBIE. There was a small 4 mm hole right below the staple line. This whole was closed with full- thickness 3-0 Vicryl running stitch. It was then imbricated with 3-0 silk, interrupted, x3. Anastomosis was tension-free and common channel was approximately 2-1/2 cm in length. I then proceeded to perform a protective loop ileostomy. Selected an appropriate site on the right lower quadrant within the ostomy triangle. Skin was grasped with Rio clamp and a circular incision was made, large enough for 2 fingers. I then dissected down to the anterior fascia. The anterior fascia was opened with a cruciate incision. I then bluntly dissected the rectus fibers apart until I was able to visualize the posterior fascia. The posterior fascia was opened in a similar fashion as the anterior fascia. I then brought up a loop of ileum that was approximately 25 cm proximal to the anastomosis site. Loop of ileum came up through the skin tension-free. I then made a mesenteric rent in the middle of the loop of ileum, and past a red rubber through the rent. I anchored the red rubber to the skin with a 2-0 nylon on either side. The loop of ileum was then opened with cautery device transversely. The nonfunctional limb was anchored to the dermis at the caudal, medial, lateral edges; with 3-0 silk, full-thickness bites. In between the silk sutures I placed several 3-0 Vicryl sutures that were full-thickness and anchored into the dermis. I then proceeded to work on the functional limb of the ileostomy. I then placed 3 Bonnie stitches of 3-0 silk at the cephal, medial, and lateral positions. The limb of ileum was then everted with proper Brooking technique. I then placed several 3-0 Vicryl full-thickness stitches and anchored them to the dermis in between our 3 anchoring silk stitches. At this point I proceeded to wash out the peritoneal cavity again on all 4 quadrants, effluent was clear. I then placed 2, 19 [place] round channel drains along each of the gutters and exiting on the contralateral lower quadrants, crossing over at the pelvis below the anastomosis site. Drains secured in place with 2-0 nylon. I then proceeded to close the fascia with running 1 PDS looped and after every 4-5 PDS bites I reinforced the fascial closure with 0 Vicryl suture interrupted. All counts complete and correct. Skin was left open, it was washed out with a saline Betadine mixture. 4 in Kerlix gauze was used as packing for the midline wound, moist in with Betadine saline mixture. Wound was dressed with 4 x 4 gauze, ABD pads, and tape. Drain sponges were placed over drain sites and held in place with tape. Ileostomy appliance was placed over t he ileostomy. Patient tolerated the procedure well and was transferred to the ICU in critical condition. Specimen: Descending colon Condition Critical Disposition Still a Patient JOSE ALCARAZ MD Jun 20, 2025 12:37
[2025-06-20] MEDS: MEROPENEM 500MG IVPB 50 ML IV SCH (13:00)
--- NOTE | 2025-06-20 14:06 | DVHPN2 ---
Progress Note - Dictate Date Seen: Jun 20, 2025 Medical Necessity Reason Pt with a Central, PICC or Fol: Yes The following are medically ne: Central Line, Engel Catheter vital signs Vital Sign Date Time Temp Pulse Resp B/P (MAP) Pulse Ox O2 Delivery O2 Flow Rate FiO2 06/20/25 13:30 118 24 104/46 (65) 97 06/20/25 13:20 30 06/20/25 12:00 Mechanical Ventilator+ 06/20/25 11:43 98.4 98.4 Total Intake and Output 06/19/25 06/19/25 06/20/25 15:00 23:00 07:00 Intake Total 1461.944 ml 1421.086 ml 1697.71 ml Output Total 300 ml 625 ml Balance 1461.944 ml 1121.086 ml 1072.71 ml medications Current Medications Medications Dose Ordered Sig/Bárbara Route Start Time Stop Time Status Last Admin Dose Admin Ondansetron HCl 4 mg Q4HP PRN IV 06/09/25 01:00 Cancel Acetaminophen 650 mg Q6HP PRN PO 06/09/25 01:00 06/10/25 20:15 650 MG Nitroglycerin 0.4 mg Q5MINP PRN SL 06/09/25 01:00 Propofol 100 ml @ 2.16 mls/hr Q24H IV 06/11/25 12:00 06/20/25 05:23 4.32 MLS/HR Fentanyl Citrate 250 ml @ 2.5 mls/hr Q24H IV 06/11/25 12:00 06/18/25 22:31 7.5 MLS/HR Midazolam HCl 50 ml @ 1 mls/hr Q24H IV 06/11/25 14:45 06/14/25 01:02 2 MLS/HR Ipratropium [place] 0.5 mg Q6HR NEB 06/14/25 10:15 06/20/25 11:45 0.5 MG Enteral Nutritional Formula 1,000 ml 40ML/HR GT 06/14/25 10:15 Hold 06/16/25 19:52 1,000 ML Levalbuterol HCl 1.25 mg Q6HR NEB 06/15/25 00:00 06/20/25 11:45 1.25 MG Levothyroxine Sodium 50 mcg QAM@0600 PO 06/16/25 06:00 Hold 06/17/25 05:39 50 MCG Amino Acid Protein 30 ml BID GT 06/15/25 13:15 Hold 06/17/25 11:03 30 ML Carvedilol 12.5 mg BID PO 06/16/25 22:00 Hold 06/17/25 11:05 12.5 MG Sodium Bicarbonate 75 ml/ Dextrose 1,075 ml @ 700 mls/hr Q1H33M IV 06/16/25 17:15 06/16/25 18:47 Cancel Pantoprazole Sodium 40 mg BID IV 06/17/25 10:00 06/20/25 13:15 40 MG Sodium Bicarbonate 100 ml/Dextrose 1,100 ml @ 75 mls/hr [id number] IV 06/17/25 10:00 06/19/25 15:07 75 MLS/HR Vancomycin HCl 0 ml @ 0 mls/hr UD IV 06/17/25 11:45 Bumetanide 1 mg BIDD IV 06/17/25 18:00 Cancel Norepinephrine Bitartrate 250 ml @ 3.75 mls/hr Q24H IV 06/17/25 18:30 06/20/25 13:16 7.5 MLS/HR Phenylephrine HCl 250 ml @ 30 mls/hr Q8H20M IV 06/17/25 20:15 Bumetanide 12.5 mg/Miscellaneous 50 ml @ 2 mls/hr Q24H IV 06/18/25 09:15 06/19/25 21:01 2 MLS/HR Micafungin Sodium 100 mg/Sodium Chloride 100 ml @ 100 mls/hr DAILY IV 06/19/25 10:00 06/20/25 13:19 100 MLS/HR Amino Acids 0 ml @ 0 mls/hr PER PHARMACY IV 06/18/25 12:15 Diagnostic Test (Pha) 1 strip Q6HR 06/19/25 00:00 06/20/25 13:16 1 STRIP Insulin Human Regular FOLLOW SLIDING SCALE Q6HR SC 06/19/25 00:00 06/20/25 13:29 2 UNITS Dextrose 50 ml UD IV 06/18/25 22:00 Sodium Chloride 40 meq/Magnesium Sulfate 4 meq/ Multivitamins 10 ml/Chromium/ Copper/Manganese/ Zinc 1 ml/Insulin Human Regular 12 units/Amino Acids/ Dextrose 822.12 ml @ 34 mls/hr [id number] IV 06/19/25 22:00 06/20/25 21:59 06/19/25 21:22 34 MLS/HR Amiodarone HCL/ Dextrose 200 ml @ 16.66 mls/ hr Q12H IV 06/20/25 05:00 06/20/25 13:14 16.66 MLS/HR Sodium Chloride 40 meq/Sodium Acetate 30 meq/ Potassium Chloride 10 meq/ Magnesium Sulfate 8 meq/ Multivitamins 10 ml/Chromium/ Copper/Manganese/ Zinc 1 ml/Insulin Human Regular 17 units/Amino Acids/ Dextrose 843.17 ml @ 35 mls/hr Q24H6M IV 06/20/25 22:00 06/21/25 21:59 Meropenem 50 ml @ 17 mls/hr DAILY@0100 IV 06/21/25 01:00 Cancel Meropenem 50 ml @ 17 mls/hr Q12HR IV 06/20/25 13:00 laboratory and microbiology Laboratory Tests 06/20/25 01:07 Test 06/20/25 01:07 Range/Units Serum Glucose 204 H 74-106 mg/dL Assessment/Plan Impression Acute hypoxemic respiratory failure Acute pulmonary edema Pneumonia CHF Patient seen and examined in ICU Events On mechanical ventilation S/p intubation PEEP 5, FiO2 30% In the OR for further resection HD catheter placed yesterday Family declining hemodialysis Leaning towards comfort measures Labs and imaging reviewed ABG reviewed Management continue Vent support Titrate to maintain sats 90% or above Continue antibiotics F/u cultures Bronchodilators Diurese Monitor renal function Monitor electrolytes Supplement as needed HD per nephrology Pressors as needed for hemodynamic support To maintain a mean arterial pressure of 65 mmHg Family discussion pending DVT prophylaxis Critical care time 35 minutes Dietary Evaluation Review Comments: 1) If patient remains NPO > 7 days, consider EN/TPN to meet at least 75% of estimated daily needs 2) If gut is preferred, consider Nepro @ 25 mL/hr goal rate as tolerated. Flush with 200 mL free H2O Q6H. TF regimen will provide 1080 kcals, 49g Pro, and 1236 mL free H2O per 24 hrs. TF regimen will meet ~ 92% estimated energy needs and 52% estimated protein needs. 3) Advance to 60g CCHO renal cardiac diet when medically feasible, pending ST approval 4) Refer to outpatient RD/CDCES for weight management 5) Follow-up with cardiology, pulmonology, or nephrology 6) Continue to monitor I&O, labs, and skin integrity Expected Outcomes/Goals: 1) patient to receive nutritional support within 7 days of NPO status 2) labs to improve 3) diet to advance 4) f/u in 2-3 days Plan discussed with: Other (Rn) Capillary Refill: < 3 seconds GIA HAYWARD MD Jun 20, 2025 14:06
--- NOTE | 2025-06-20 14:23 | DVHPN2 ---
Subjective 54-year-old female with a known history of paroxysmal AFib on amiodarone and Eliquis at home, severe aortic and mitral insufficiency, hypertension, CKD, chronic respiratory failure on home O2 secondary to COPD and congestive heart failure. Patient has received hemodialysis catheter does have acute kidney injury with a oliguria. Patient also received 2 units of packed RBC today. Reviewed: Care Plan, H&P, Labs, Medications, Previous Orders, Radiology Changes from previous H/P or p: No Changes Objective Vitals Vital Signs Date Time Temp Pulse Resp B/P (MAP) Pulse Ox O2 Delivery O2 Flow Rate FiO2 06/20/25 13:30 118 24 104/46 (65) 97 06/20/25 13:20 30 06/20/25 12:00 Mechanical Ventilator+ 06/20/25 11:43 98.4 98.4 Intake/Output Intake and Output 06/20/25 07:00 Intake Total 4580.740 ml Output Total 925 ml Balance 3655.740 ml IV Total 4280.740 ml Blood Product 300 ml Output Urine Total 425 ml Gastric Drainage Total 500 ml Exam HEENT pupils are reactive Neck is supple CV is S1-S2 regular rate and rhythm Respiratory bilateral diminished breath sounds bases GI positive bowel sounds sluggish Extremity trace edema 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 General Appearance: severe distress, Other (Intubated, on vent) HEENT: Atraumatic, Other (ETT tube intact) Neck: Supple Lungs: Other (Decreased breath sounds bilateral, rhonchi and crackles bilateral) Cardiovascular: Regular rate, Normal S1, Normal S2, No murmurs, Gallops, Rubs Abdomen: Normal bowel sounds, Soft, No tenderness Medications Current Medications Medications Dose Ordered Sig/Bárbara Route Start Time Stop Time Status Last Admin Dose Admin Ondansetron HCl 4 mg Q4HP PRN IV 06/09/25 01:00 Cancel Acetaminophen 650 mg Q6HP PRN PO 06/09/25 01:00 06/10/25 20:15 650 MG Nitroglycerin 0.4 mg Q5MINP PRN SL 06/09/25 01:00 Propofol 100 ml @ 2.16 mls/hr Q24H IV 06/11/25 12:00 06/20/25 05:23 4.32 MLS/HR Fentanyl Citrate 250 ml @ 2.5 mls/hr Q24H IV 06/11/25 12:00 06/18/25 22:31 7.5 MLS/HR Midazolam HCl 50 ml @ 1 mls/hr Q24H IV 06/11/25 14:45 06/14/25 01:02 2 MLS/HR Ipratropium [place] 0.5 mg Q6HR NEB 06/14/25 10:15 06/20/25 11:45 0.5 MG Enteral Nutritional Formula 1,000 ml 40ML/HR GT 06/14/25 10:15 Hold 06/16/25 19:52 1,000 ML Levalbuterol HCl 1.25 mg Q6HR NEB 06/15/25 00:00 06/20/25 11:45 1.25 MG Levothyroxine Sodium 50 mcg QAM@0600 PO 06/16/25 06:00 Hold 06/17/25 05:39 50 MCG Amino Acid Protein 30 ml BID GT 06/15/25 13:15 Hold 06/17/25 11:03 30 ML Carvedilol 12.5 mg BID PO 06/16/25 22:00 Hold 06/17/25 11:05 12.5 MG Sodium Bicarbonate 75 ml/ Dextrose 1,075 ml @ 700 mls/hr Q1H33M IV 06/16/25 17:15 06/16/25 18:47 Cancel Pantoprazole Sodium 40 mg BID IV 06/17/25 10:00 06/20/25 13:15 40 MG Sodium Bicarbonate 100 ml/Dextrose 1,100 ml @ 75 mls/hr [id number] IV 06/17/25 10:00 06/19/25 15:07 75 MLS/HR Vancomycin HCl 0 ml @ 0 mls/hr UD IV 06/17/25 11:45 Bumetanide 1 mg BIDD IV 06/17/25 18:00 Cancel Norepinephrine Bitartrate 250 ml @ 3.75 mls/hr Q24H IV 06/17/25 18:30 06/20/25 13:16 7.5 MLS/HR Phenylephrine HCl 250 ml @ 30 mls/hr Q8H20M IV 06/17/25 20:15 Bumetanide 12.5 mg/Miscellaneous 50 ml @ 2 mls/hr Q24H IV 06/18/25 09:15 06/19/25 21:01 2 MLS/HR Micafungin Sodium 100 mg/Sodium Chloride 100 ml @ 100 mls/hr DAILY IV 06/19/25 10:00 06/20/25 13:19 100 MLS/HR Amino Acids 0 ml @ 0 mls/hr PER PHARMACY IV 06/18/25 12:15 Diagnostic Test (Pha) 1 strip Q6HR 06/19/25 00:00 06/20/25 13:16 1 STRIP Insulin Human Regular FOLLOW SLIDING SCALE Q6HR SC 06/19/25 00:00 06/20/25 13:29 2 UNITS Dextrose 50 ml UD IV 06/18/25 22:00 Sodium Chloride 40 meq/Magnesium Sulfate 4 meq/ Multivitamins 10 ml/Chromium/ Copper/Manganese/ Zinc 1 ml/Insulin Human Regular 12 units/Amino Acids/ Dextrose 822.12 ml @ 34 mls/hr [id number] IV 06/19/25 22:00 06/20/25 21:59 06/19/25 21:22 34 MLS/HR Amiodarone HCL/ Dextrose 200 ml @ 16.66 mls/ hr Q12H IV 06/20/25 05:00 06/20/25 13:14 16.66 MLS/HR Sodium Chloride 40 meq/Sodium Acetate 30 meq/ Potassium Chloride 10 meq/ Magnesium Sulfate 8 meq/ Multivitamins 10 ml/Chromium/ Copper/Manganese/ Zinc 1 ml/Insulin Human Regular 17 units/Amino Acids/ Dextrose 843.17 ml @ 35 mls/hr Q24H6M IV 06/20/25 22:00 06/21/25 21:59 Meropenem 50 ml @ 17 mls/hr DAILY@0100 IV 06/21/25 01:00 Cancel Meropenem 50 ml @ 17 mls/hr Q12HR IV 06/20/25 13:00 Laboratory Results Laboratory Tests 06/20/25 01:07 Chemistry Test 06/20/25 01:07 Albumin 2.3 g/dL (3.2-4.8) L Calcium Level 8.1 mg/dL (8.7-10.4) L Magnesium Level 1.8 mg/dL (1.6-2.6) Phosphorus Level 8.9 mg/dL (2.4-5.1) H Total Protein 4.0 g/dL (5.7-8.2) L Coagulation Test 06/20/25 01:07 Prothrombin Time 11.6 sec (9.3-11.8) Prothrombin Time INR 1.11 (0.9-1.15) Activated Partial Thromboplast Time 37.2 SEC (24.5-34.5) H LFT Test 06/20/25 01:07 Alanine Aminotransferase (ALT) 53 U/L (7-40) H Alkaline Phosphatase 163 U/L (46-116) H Aspartate Amino Transferase (AST) 101 U/L (13-40) H Total Bilirubin 0.3 mg/dL (0.2-1.0) Urinalysis Test 06/09/25 16:55 06/14/25 11:50 Urine Color Colorless (Yellow) Urine Clarity Clear (Clear) Urine pH 5.5 (5.0-9.0) Urine Specific [place] 1.007 (1.001-1.035) Urine Protein Negative (Negative) Urine Ketones Negative (Negative) Urine Blood 2+ /uL (Negative) H Urine Nitrite Negative (Negative) Urine Bilirubin Negative (Negative) Urine Urobilinogen Normal mg/dL (Negative) Urine Leukocyte Esterase Negative /uL (Negative) Urine RBC 38 /hpf (0 - 4) Urine Microscopic WBC 1 /HPF (0-5) Urine Squamous Epithelial Cells Few /hpf (<5) Urine Bacteria None seen /hpf (None Seen) Urine Glucose Normal mg/dL (Normal) Urine Creatinine 27.77 mg/dL (30.0-125.0) L Urine Protein/Creatinine Ratio 1.72 Urine Sodium 73 mmol/L (40-220) Urine Total Protein 47.7 mg/dL (1-14) H Microbiology Microbiology Date/Time Source Procedure Growth Status 06/17/25 07:00 Stool Stool Culture - Final Complete 06/17/25 07:00 Stool Shiga Toxin I & II - Final Complete 06/16/25 10:30 Blood Blood Culture - Preliminary NO GROWTH AFTER 72 HOURS OF INCUBATION. Resulted 06/11/25 14:25 Nose MRSA Screen - Final Complete Assessment/Plan Assessment/Plan 54-year-old female with a known history of hypertension, paroxysmal AFib, chronic respiratory failure on home O2, COPD, congestive heart failure with a preserved EF, severe aortic and mitral valve insufficiency who initially presented to the hospital with the increasing shortness a breath found to have 1. Acute hypoxic respiratory failure secondary to acute CHF exacerbation currently on Bumex drip 2. Acute CHF exacerbation with a preserved ejection fraction. Currently on IV diuretics 3. Acute kidney injury with oliguria status post hemodialysis catheter placement 4. Acute anemia status post 2 units of packed RBC, watch for any active evidence of bleeding 5. Paroxysmal AFib currently in normal sinus rhythm , on amiodarone drip 6. Hypotension requiring IV Levophed 7. Megacolon with a pneumatosis of the ascending and transverse colon status postExploratory laparotomy, mobilization of hepatic flexure, mobilization of splenic flexure, resection of ascending and transverse colon, temporary abdominal closure on 06/17 8. Necrotic segment of descending colon with a patchy free perforation status post Exploratory laparotomy, temporary abdominal dressing takedown, resection of the descending colon, 06/19. 9. Leukocytosis 10. Sepsis secondary pneumonia 11. Metabolic acidosis secondary to acute kidney injury 12. Open abdomen status post Exploratory laparotomy, temporary abdominal dressing takedown, ileocolic anastomosis, protective loop ileostomy, washout, fascial closure 06/20 -continue IV vancomycin, meropenem, micafungin, hemodialysis per Nephrology, follow up General surgery, patient has remained intubated and sedated. Family was updated at bedside. Plan discussed with: Other Date of Service: Jun 20, 2025 Billing Provider: GEORGIANA NOEL MD Common Visit Codes: [id number] INP/OBS CARE(HIGH) GEORGIANA NOEL MD Jun 20, 2025 14:23
[2025-06-20 16:31] LABS: Hematocrit 28.8 % (36.0-46.0); Hemoglobin 9.8 g/dL (12.2-16.2)
[2025-06-20] MEDS: ALBUMIN 25% 0 ML IV ONE (16:51)
[2025-06-20] MEDS: ALBUMIN 25% 100 ML IV PRN (16:52)
[2025-06-20] MEDS: ALBUMIN 25% 100 ML IV ONE ×2 (16:55→17:42)
--- NOTE | 2025-06-20 17:10 | DVHPN2 ---
Progress Note - Dictate Date Seen: Jun 20, 2025 Medical Necessity Reason Pt with a Central, PICC or Fol: Yes The following are medically ne: Central Line, Engel Catheter Subjective Patient was seen and evaluated in follow up in the ICU. Patient is intubated and sedated on ventilator. 30% FiO2. Patient underwent exploratory laparotomy, temporary abdominal dressing takedown, ileocolic anastomosis, protective loop ileostomy, washout, fascial closure, tolerated procedure well. WBC 26.3, HGB 6.3, HCT 18.9, CO2 18, BUN 143, REWARDS CONSULTANT 4.14, GLUC 208, CA 8.1, AST 101, ALT 53. Chest x-ray: mild pulmonary vascular congestion. No significant interval change. vital signs Vital Sign Date Time Temp Pulse Resp B/P (MAP) Pulse Ox O2 Delivery O2 Flow Rate FiO2 06/20/25 11:45 116 24 122/47 (72) 93 30 06/20/25 11:43 98.4 98.4 06/20/25 05:51 Mechanical Ventilator+ Total Intake and Output 06/19/25 06/19/25 06/20/25 15:00 23:00 07:00 Intake Total 1461.944 ml 1421.086 ml 1544.48 ml Output Total 300 ml 625 ml Balance 1461.944 ml 1121.086 ml 919.48 ml medications Current Medications Medications Dose Ordered Sig/Bárbara Route Start Time Stop Time Status Last Admin Dose Admin Ondansetron HCl 4 mg Q4HP PRN IV 06/09/25 01:00 Cancel Acetaminophen 650 mg Q6HP PRN PO 06/09/25 01:00 06/10/25 20:15 650 MG Nitroglycerin 0.4 mg Q5MINP PRN SL 06/09/25 01:00 Propofol 100 ml @ 2.16 mls/hr Q24H IV 06/11/25 12:00 06/20/25 05:23 4.32 MLS/HR Fentanyl Citrate 250 ml @ 2.5 mls/hr Q24H IV 06/11/25 12:00 06/18/25 22:31 7.5 MLS/HR Midazolam HCl 50 ml @ 1 mls/hr Q24H IV 06/11/25 14:45 06/14/25 01:02 2 MLS/HR Ipratropium [place] 0.5 mg Q6HR NEB 06/14/25 10:15 06/20/25 11:45 0.5 MG Enteral Nutritional Formula 1,000 ml 40ML/HR GT 06/14/25 10:15 Hold 06/16/25 19:52 1,000 ML Levalbuterol HCl 1.25 mg Q6HR NEB 06/15/25 00:00 06/20/25 11:45 1.25 MG Levothyroxine Sodium 50 mcg QAM@0600 PO 06/16/25 06:00 Hold 06/17/25 05:39 50 MCG Amino Acid Protein 30 ml BID GT 06/15/25 13:15 Hold 06/17/25 11:03 30 ML Carvedilol 12.5 mg BID PO 06/16/25 22:00 Hold 06/17/25 11:05 12.5 MG Sodium Bicarbonate 75 ml/ Dextrose 1,075 ml @ 700 mls/hr Q1H33M IV 06/16/25 17:15 06/16/25 18:47 Cancel Pantoprazole Sodium 40 mg BID IV 06/17/25 10:00 06/19/25 21:00 40 MG Sodium Bicarbonate 100 ml/Dextrose 1,100 ml @ 75 mls/hr [id number] IV 06/17/25 10:00 06/19/25 15:07 75 MLS/HR Vancomycin HCl 0 ml @ 0 mls/hr UD IV 06/17/25 11:45 Bumetanide 1 mg BIDD IV 06/17/25 18:00 Cancel Norepinephrine Bitartrate 250 ml @ 3.75 mls/hr Q24H IV 06/17/25 18:30 06/19/25 15:06 11.25 MLS/HR Phenylephrine HCl 250 ml @ 30 mls/hr Q8H20M IV 06/17/25 20:15 Bumetanide 12.5 mg/Miscellaneous 50 ml @ 2 mls/hr Q24H IV 06/18/25 09:15 06/19/25 21:01 2 MLS/HR Micafungin Sodium 100 mg/Sodium Chloride 100 ml @ 100 mls/hr DAILY IV 06/19/25 10:00 06/19/25 12:24 100 MLS/HR Amino Acids 0 ml @ 0 mls/hr PER PHARMACY IV 06/18/25 12:15 Diagnostic Test (Pha) 1 strip Q6HR 06/19/25 00:00 06/20/25 05:39 1 STRIP Insulin Human Regular FOLLOW SLIDING SCALE Q6HR SC 06/19/25 00:00 06/20/25 05:41 8 UNITS Dextrose 50 ml UD IV 06/18/25 22:00 Sodium Chloride 40 meq/Magnesium Sulfate 4 meq/ Multivitamins 10 ml/Chromium/ Copper/Manganese/ Zinc 1 ml/Insulin Human Regular 12 units/Amino Acids/ Dextrose 822.12 ml @ 34 mls/hr [id number] IV 06/19/25 22:00 06/20/25 21:59 06/19/25 21:22 34 MLS/HR Amiodarone HCL/ Dextrose 200 ml @ 16.66 mls/ hr Q12H IV 06/20/25 05:00 06/20/25 05:22 16.66 MLS/HR Sodium Chloride 40 meq/Sodium Acetate 30 meq/ Potassium Chloride 10 meq/ Magnesium Sulfate 8 meq/ Multivitamins 10 ml/Chromium/ Copper/Manganese/ Zinc 1 ml/Insulin Human Regular 17 units/Amino Acids/ Dextrose 843.17 ml @ 35 mls/hr Q24H6M IV 06/20/25 22:00 06/21/25 21:59 Meropenem 50 ml @ 17 mls/hr DAILY@0100 IV 06/21/25 01:00 Cancel Meropenem 50 ml @ 17 mls/hr Q12HR IV 06/20/25 13:00 objective GENERAL: Ill appearing, intubated on ventilator. EYES: PERRL, EOMI. Anicteric. HENT: Moist mucous membranes. LUNGS: Decreased breath sounds. CARDIOVASCULAR: Regular rate and rhythm. ABDOMEN: Soft, nontender and nondistended. EXTREMITIES: No edema. NEUROLOGIC: No focal neurological deficits. SKIN: Warm, dry. laboratory and microbiology Laboratory Tests 06/20/25 01:07 Test 06/20/25 01:07 Range/Units Serum Glucose 204 H 74-106 mg/dL Problem List Chronic HFpEF, NYHA class IV. Paroxysmal atrial fibrillation, stage III, now NSR (on amiodarone/Elqiuis therapy). Severe aortic valve and mitral valve insufficiency. Acute hypoxic respiratory failure. Asthma. Chronic kidney disease. Thyroid disease. Prediabetes, newly diagnosed. Morbid obesity. History of tobacco use. Assessment/Plan Continued all current supportive medical care. IV Amiodarone. IV antibiotics as ordered. Nebulized breathing treatments. Additional plan as per the hospital course. Critical care time of 45 minutes provided to include time spent evaluation of patient at bedside, when appropriate patient/family education for diagnosis, treatment plan, review of pertinent medical information and discussion of care with specialty providers and PCP. Mechanical ventilator parameters, treatment and adjustments have personally been reviewed by me and treatment plan by senior human resources representative has also been reviewed. Dietary Evaluation Review Comments: 1) If patient remains NPO > 7 days, consider EN/TPN to meet at least 75% of estimated daily needs 2) If gut is preferred, consider Nepro @ 25 mL/hr goal rate as tolerated. Flush with 200 mL free H2O Q6H. TF regimen will provide 1080 kcals, 49g Pro, and 1236 mL free H2O per 24 hrs. TF regimen will meet ~ 92% estimated energy needs and 52% estimated protein needs. 3) Advance to 60g CCHO renal cardiac diet when medically feasible, pending ST approval 4) Refer to outpatient RD/CDCES for weight management 5) Follow-up with cardiology, pulmonology, or nephrology 6) Continue to monitor I&O, labs, and skin integrity Expected Outcomes/Goals: 1) patient to receive nutritional support within 7 days of NPO status 2) labs to improve 3) diet to advance 4) f/u in 2-3 days Plan discussed with: Other Capillary Refill: < 3 seconds URBANO TRUONG MD Jun 20, 2025 13:30
[2025-06-20] MEDS: POTASSIUM CHLORIDE IV NR (20:09)
[2025-06-20] MEDS: SODIUM ACETATE IV NR (20:09)
[2025-06-20] MEDS: [UNRECOGNIZED DRUG - OTHER] IV NR (20:09)
[2025-06-20] MEDS: SODIUM CHLORIDE IV NR (20:09)
[2025-06-20] MEDS: MEROPENEM 500MG IVPB 50 ML IV ONE (21:58)
[2025-06-21] VITALS (106 sets, daily range): BP systolic 88–159; BP diastolic 37–78; PULSE 88–145; RESP 22–36; TEMP 97.7–98.5; O2SAT 97–100
[2025-06-21] MEDS ORDERED: MEROPENEM 1GM IVPB 50 ML IV SCH (01:00)
[2025-06-21 04:46] LABS: Hematocrit 24.0 % (36.0-46.0); Mean Corpuscular Hemoglobin 28.4 pg (28.0-32.0)
[2025-06-21 04:47] LABS: Alanine Aminotransferase 31 U/L (7-40); Anion Gap 17 (5-15); BUN/Creatinine Ratio 25.0 (10.0-20.0); Carbon Dioxide 26 mmol/L (20-31)
[2025-06-21 04:48] LABS: Hemoglobin 8.3 g/dL (12.2-16.2); Magnesium 2.0 mg/dL (1.6-2.6); Mean Corpuscular Volume 81.8 fL (80.0-100.0); Nucleated Red Blood Cells % 0.5 %
[2025-06-21 04:49] LABS: Bilirubin, Total 0.7 mg/dL (0.2-1.0)
[2025-06-21 04:54] LABS: Albumin 2.9 g/dL (3.2-4.8); Alkaline Phosphatase 120 U/L (46-116); Blood Urea Nitrogen 62 mg/dL (9-23); Calcium 8.4 mg/dL (8.7-10.4); Chloride 93 mmol/L (98-107); Glucose 127 mg/dL (74-106); Potassium 2.8 mmol/L (3.5-5.1); Sodium 136 mmol/L (136-145); Total Protein 4.8 g/dL (5.7-8.2)
[2025-06-21] MEDS: POTASSIUM CHL 20MEQ/100ML 100 ML IV ONE ×2 (05:29→21:52)
[2025-06-21] MEDS: POTASSIUM CHL 20MEQ/100ML 100 ML IV SCH (05:30)
[2025-06-21 06:57] LABS: Base Excess 5.3 mmol/L (-2.0-3.0)
[2025-06-21] MEDS: SODIUM CHL 0.9% 1000 ML BAG XX ONE (07:00)
[2025-06-21] MEDS: ALBUMIN 25% 100 ML IV SCH (08:20)
--- NOTE | 2025-06-21 08:57 | DVH ---
EXAM: XY CHEST PORTABLE Indication: pt intubated Technique: Single frontal view of the chest was obtained Comparison: XY CHEST PORTABLE on DOS: 06/20/25, XY CHEST XRAY 1 VIEW on DOS: 06/19/25, XY CHEST XRAY 1 VIEW on DOS: 06/18/25, XY CHEST XRAY 1 VIEW on DOS: 06/17/25, XY CHEST XRAY 1 VIEW on DOS: 06/16/25 FINDINGS: Lines and Tubes: Right internal jugular central venous catheter tip projects over superior vena cava. Endotracheal tube projects 4 cm above the level of the donna. Enteric tube tip projects over the e xpected region of the stomach. Lungs: No focal consolidation. Pleura: No effusion. No pneumothorax. Cardiomediastinal contours: Unremarkable Bones: No acute osseous abnormality. IMPRESSION: No significant change compared to prior exam.
[2025-06-21 10:20] LABS: Hepatitis B Surface Antigen Negative (Negative)
--- NOTE | 2025-06-21 11:00 | DVHPN2 ---
Progress Note Date Seen: Jun 21, 2025 Medical Necessity Reason Pt with a Central, PICC or Fol: Yes The following are medically ne: Central Line, Engel Catheter Subjective Patient reports: Other (Patient is intubated) Review of Systems: Deferred Objective vital signs Vital Sign Date Time Temp Pulse Resp B/P (MAP) Pulse Ox O2 Delivery O2 Flow Rate FiO2 06/21/25 10:45 125 24 113/55 (74) 99 06/21/25 10:00 30 06/21/25 10:00 Mechanical Ventilator+ 06/21/25 04:00 98.3 98.3 Total Intake and Output 06/20/25 06/20/25 06/21/25 15:00 23:00 07:00 Intake Total 1622.09 ml 1213.32 ml 1221.84 ml Output Total 600 ml 3540 ml 1550 ml Balance 1022.09 ml -2326.68 ml -328.16 ml medications Current Medications Medications Dose Ordered Sig/Bárbara Route Start Time Stop Time Status Last Admin Dose Admin Ondansetron HCl 4 mg Q4HP PRN IV 06/09/25 01:00 Cancel Acetaminophen 650 mg Q6HP PRN PO 06/09/25 01:00 06/10/25 20:15 650 MG Nitroglycerin 0.4 mg Q5MINP PRN SL 06/09/25 01:00 Propofol 100 ml @ 2.16 mls/hr Q24H IV 06/11/25 12:00 06/20/25 22:00 4.32 MLS/HR Fentanyl Citrate 250 ml @ 2.5 mls/hr Q24H IV 06/11/25 12:00 06/20/25 23:55 10 MLS/HR Midazolam HCl 50 ml @ 1 mls/hr Q24H IV 06/11/25 14:45 06/14/25 01:02 2 MLS/HR Ipratropium [place] 0.5 mg Q6HR NEB 06/14/25 10:15 06/21/25 05:49 0.5 MG Enteral Nutritional Formula 1,000 ml 40ML/HR GT 06/14/25 10:15 Hold 06/16/25 19:52 1,000 ML Levalbuterol HCl 1.25 mg Q6HR NEB 06/15/25 00:00 06/21/25 05:49 1.25 MG Levothyroxine Sodium 50 mcg QAM@0600 PO 06/16/25 06:00 Hold 06/17/25 05:39 50 MCG Amino Acid Protein 30 ml BID GT 06/15/25 13:15 Hold 06/17/25 11:03 30 ML Carvedilol 12.5 mg BID PO 06/16/25 22:00 Hold 06/17/25 11:05 12.5 MG Sodium Bicarbonate 75 ml/ Dextrose 1,075 ml @ 700 mls/hr Q1H33M IV 06/16/25 17:15 06/16/25 18:47 Cancel Pantoprazole Sodium 40 mg BID IV 06/17/25 10:00 06/20/25 21:52 40 MG Vancomycin HCl 0 ml @ 0 mls/hr UD IV 06/17/25 11:45 Bumetanide 1 mg BIDD IV 06/17/25 18:00 Cancel Norepinephrine Bitartrate 250 ml @ 3.75 mls/hr Q24H IV 06/17/25 18:30 06/20/25 13:16 7.5 MLS/HR Phenylephrine HCl 250 ml @ 30 mls/hr Q8H20M IV 06/17/25 20:15 Bumetanide 12.5 mg/Miscellaneous 50 ml @ 2 mls/hr Q24H IV 06/18/25 09:15 06/20/25 20:12 2 MLS/HR Micafungin Sodium 100 mg/Sodium Chloride 100 ml @ 100 mls/hr DAILY IV 06/19/25 10:00 06/20/25 13:19 100 MLS/HR Amino Acids 0 ml @ 0 mls/hr PER PHARMACY IV 06/18/25 12:15 Diagnostic Test (Pha) 1 strip Q6HR 06/19/25 00:00 06/21/25 05:30 1 STRIP Insulin Human Regular FOLLOW SLIDING SCALE Q6HR SC 06/19/25 00:00 06/20/25 18:47 4 UNITS Dextrose 50 ml UD IV 06/18/25 22:00 Amiodarone HCL/ Dextrose 200 ml @ 16.66 mls/ hr Q12H IV 06/20/25 05:00 06/21/25 01:28 16.66 MLS/HR Sodium Chloride 40 meq/Sodium Acetate 30 meq/ Potassium Chloride 10 meq/ Magnesium Sulfate 8 meq/ Multivitamins 10 ml/Chromium/ Copper/Manganese/ Zinc 1 ml/Insulin Human Regular 17 units/Amino Acids/ Dextrose 843.17 ml @ 35 mls/hr Q24H6M IV 06/20/25 22:00 06/21/25 21:59 06/20/25 20:09 35 MLS/HR Meropenem 50 ml @ 17 mls/hr DAILY@0100 IV 06/21/25 01:00 Cancel Meropenem 50 ml @ 17 mls/hr Q12HR IV 06/20/25 13:00 06/20/25 21:55 17 MLS/HR Sodium Chloride 40 meq/Sodium Acetate 20 meq/ Potassium Chloride 40 meq/ Potassium Acetate 20 meq/Magnesium Sulfate 8 meq/ Multivitamins 10 ml/Chromium/ Copper/Manganese/ Zinc 1 ml/Insulin Human Regular 5 units/Amino Acids/ Dextrose 1,013.05 ml @ 43 mls/hr [id number] IV 06/21/25 22:00 06/22/25 21:59 Examination: GENERAL:Abnormal, LUNGS:Normal, CVS:Abnormal, ABDOMEN:Abnormal, MSK:Abnormal, NEURO:Abnormal laboratory and microbiology Laboratory Tests 06/21/25 03:10 Test 06/21/25 03:10 Range/Units Serum Glucose 127 H 74-106 mg/dL Microbiology Date/Time Source Procedure Growth Status 06/17/25 07:00 Stool Stool Culture - Final Complete 06/17/25 07:00 Stool Shiga Toxin I & II - Final Complete 06/16/25 10:30 Blood Blood Culture - Final NO GROWTH AFTER 5 DAYS OF INCUBATION. Complete 06/11/25 14:25 Nose MRSA Screen - Final Complete Problem List/Assessment/Plan Problem List/Assessment/Plan Acute kidney injury on chronic kidney disease stage IIIA secondary to hemodynamic mediated, FeNa > 2% 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 Currently on vasopressors DC IV fluids She is on TPN Plan discussed with: Other Dietary Evaluation Review Comments: 1) If patient remains NPO > 7 days, consider EN/TPN to meet at least 75% of estimated daily needs 2) If gut is preferred, consider Nepro @ 25 mL/hr goal rate as tolerated. Flush with 200 mL free H2O Q6H. TF regimen will provide 1080 kcals, 49g Pro, and 1236 mL free H2O per 24 hrs. TF regimen will meet ~ 92% estimated energy needs and 52% estimated protein needs. 3) Advance to 60g CCHO renal cardiac diet when medically feasible, pending ST approval 4) Refer to outpatient RD/CDCES for weight management 5) Follow-up with cardiology, pulmonology, or nephrology 6) Continue to monitor I&O, labs, and skin integrity Expected Outcomes/Goals: 1) patient to receive nutritional support within 7 days of NPO status 2) labs to improve 3) diet to advance 4) f/u in 2-3 days Critical Care Time (mins): 45 Sepsis reassessment post fluid Capillary Refill: < 3 seconds ANGELICA NASH MD Jun 21, 2025 11:00
[2025-06-21 11:11] LABS: Hepatitis C Antibody Negative (Negative)
--- NOTE | 2025-06-21 11:24 | DVHPN2 ---
Progress Note - Surgical Date Seen: Jun 21, 2025 Post op day Post op day: 4 Subjective Patient reports: Other (Patient is intubated and sedated. Hypotensive on Levophed.) Review of Systems: Deferred Objective Vital signs Vital Sign Date Time Temp Pulse Resp B/P (MAP) Pulse Ox O2 Delivery O2 Flow Rate FiO2 06/21/25 10:45 125 24 113/55 (74) 99 06/21/25 10:00 30 06/21/25 10:00 Mechanical Ventilator+ 06/21/25 04:00 98.3 98.3 Total Intake and Output 06/20/25 06/20/25 06/21/25 15:00 23:00 07:00 Intake Total 1622.09 ml 1213.32 ml 1221.84 ml Output Total 600 ml 3540 ml 1550 ml Balance 1022.09 ml -2326.68 ml -328.16 ml Medications Current Medications Medications Dose Ordered Sig/Bárbara Route Start Time Stop Time Status Last Admin Dose Admin Ondansetron HCl 4 mg Q4HP PRN IV 06/09/25 01:00 Cancel Acetaminophen 650 mg Q6HP PRN PO 06/09/25 01:00 06/10/25 20:15 650 MG Nitroglycerin 0.4 mg Q5MINP PRN SL 06/09/25 01:00 Propofol 100 ml @ 2.16 mls/hr Q24H IV 06/11/25 12:00 06/20/25 22:00 4.32 MLS/HR Fentanyl Citrate 250 ml @ 2.5 mls/hr Q24H IV 06/11/25 12:00 06/20/25 23:55 10 MLS/HR Midazolam HCl 50 ml @ 1 mls/hr Q24H IV 06/11/25 14:45 06/14/25 01:02 2 MLS/HR Ipratropium [place] 0.5 mg Q6HR NEB 06/14/25 10:15 06/21/25 05:49 0.5 MG Enteral Nutritional Formula 1,000 ml 40ML/HR GT 06/14/25 10:15 Hold 06/16/25 19:52 1,000 ML Levalbuterol HCl 1.25 mg Q6HR NEB 06/15/25 00:00 06/21/25 05:49 1.25 MG Levothyroxine Sodium 50 mcg QAM@0600 PO 06/16/25 06:00 Hold 06/17/25 05:39 50 MCG Amino Acid Protein 30 ml BID GT 06/15/25 13:15 Hold 06/17/25 11:03 30 ML Carvedilol 12.5 mg BID PO 06/16/25 22:00 Hold 06/17/25 11:05 12.5 MG Sodium Bicarbonate 75 ml/ Dextrose 1,075 ml @ 700 mls/hr Q1H33M IV 06/16/25 17:15 06/16/25 18:47 Cancel Pantoprazole Sodium 40 mg BID IV 06/17/25 10:00 06/20/25 21:52 40 MG Vancomycin HCl 0 ml @ 0 mls/hr UD IV 06/17/25 11:45 Bumetanide 1 mg BIDD IV 06/17/25 18:00 Cancel Norepinephrine Bitartrate 250 ml @ 3.75 mls/hr Q24H IV 06/17/25 18:30 06/20/25 13:16 7.5 MLS/HR Phenylephrine HCl 250 ml @ 30 mls/hr Q8H20M IV 06/17/25 20:15 Bumetanide 12.5 mg/Miscellaneous 50 ml @ 2 mls/hr Q24H IV 06/18/25 09:15 06/20/25 20:12 2 MLS/HR Micafungin Sodium 100 mg/Sodium Chloride 100 ml @ 100 mls/hr DAILY IV 06/19/25 10:00 06/20/25 13:19 100 MLS/HR Amino Acids 0 ml @ 0 mls/hr PER PHARMACY IV 06/18/25 12:15 Diagnostic Test (Pha) 1 strip Q6HR 06/19/25 00:00 06/21/25 05:30 1 STRIP Insulin Human Regular FOLLOW SLIDING SCALE Q6HR SC 06/19/25 00:00 06/20/25 18:47 4 UNITS Dextrose 50 ml UD IV 06/18/25 22:00 Amiodarone HCL/ Dextrose 200 ml @ 16.66 mls/ hr Q12H IV 06/20/25 05:00 06/21/25 01:28 16.66 MLS/HR Sodium Chloride 40 meq/Sodium Acetate 30 meq/ Potassium Chloride 10 meq/ Magnesium Sulfate 8 meq/ Multivitamins 10 ml/Chromium/ Copper/Manganese/ Zinc 1 ml/Insulin Human Regular 17 units/Amino Acids/ Dextrose 843.17 ml @ 35 mls/hr Q24H6M IV 06/20/25 22:00 06/21/25 21:59 06/20/25 20:09 35 MLS/HR Meropenem 50 ml @ 17 mls/hr DAILY@0100 IV 06/21/25 01:00 Cancel Meropenem 50 ml @ 17 mls/hr Q12HR IV 06/20/25 13:00 06/20/25 21:55 17 MLS/HR Sodium Chloride 40 meq/Sodium Acetate 20 meq/ Potassium Chloride 40 meq/ Potassium Acetate 20 meq/Magnesium Sulfate 8 meq/ Multivitamins 10 ml/Chromium/ Copper/Manganese/ Zinc 1 ml/Insulin Human Regular 5 units/Amino Acids/ Dextrose 1,013.05 ml @ 43 mls/hr [id number] IV 06/21/25 22:00 06/22/25 21:59 Laboratory Laboratory Tests 06/21/25 03:10 Test 06/21/25 03:10 Range/Units Serum Glucose 127 H 74-106 mg/dL Microbiology Date/Time Source Procedure Growth Status 06/17/25 07:00 Stool Stool Culture - Final Complete 06/17/25 07:00 Stool Shiga Toxin I & II - Final Complete 06/16/25 10:30 Blood Blood Culture - Final NO GROWTH AFTER 5 DAYS OF INCUBATION. Complete 06/11/25 14:25 Nose MRSA Screen - Final Complete Examination: GENERAL:Abnormal (Intubated and sedated), HEENT:Abnormal (ETT/OG tube in place), ABDOMEN:Abnormal (Nondistended, midline wound with packing in place: No necrosis/bleeding/pus/drainage/erythema, right lower quadrant loop ileostomy with pink mucosa no production in bag, no grimacing, right lower quadrant drain without effluent, left lower quadrant drain with serosanguineous fluid) Labs and/or images reviewed: Labs reviewed by me (Leukocytosis continues to downtrend 16 from , hemoglobin 8.3) Problem List/Assessment/Plan Assessment and Plan Mrs. Penaloza is a 54-year-old female who has been in the hospital since June 08 due to pneumonia and CHF exacerbation that resulted in intubation. I was consulted on 06/17 due to sever colonic distention and pneumatosis seen on CT from that day. Pt is currently POD 4 from initial surgery, but required to take backs to the OR. Her surgeries were finalized yesterday, ileocolic anastomosis was done, a protective loop ileostomy was done, 2 drains were placed, fascia was closed, skin was left opened to close by secondary intention given high risk for SSI. Surgeries: 06/17: Exploratory laparotomy, subtotal colectomy (resection of ascending and transverse colon), temporary abdominal closure 06/19: Exploratory laparotomy, takedown of temporary abdominal dressing, wash out, resection of descending colon 06/20: Exploratory laparotomy, takedown of temporary abdominal dressing, washout, ileocolic anastomosis, protective loop ileostomy, drain placement x2, fascial closure 1. Strict NPO 2. NG/OG tube to LIS 3. Wound VAC ordered for midline wound 4. If wound VAC does not get placed today (06/21), patient will need packing change with 4 in Kerlix gauze covered by 4 x 4 gauze, ABD pad, and tape 5. Drain stripping and emptying once per shift and p.r.n. 6. Recommend continuation of TPN 7. Recommend continuation of IV antibiotics for a total of 7 days from the last surgery on 06/20 8. No GI cathartic medications My Orders My Orders Orders - SONAM ALCARAZ MD Procedure Category Date Status Time * Wound Consult CONS 06/20/25 Transmitted Npo (Nothing By DIET 06/20/25 Transmitted Mouth) Diet Lunch Plan discussed with Plan discussed with: Spouse Visit Coding Surgery Date of Service if different f: Jun 21, 2025 Billing Provider: SONAM ALCARAZ MD Surgery Visit Codes: [id number] INP/OBS CARE(HIGH) SONAM ALCARAZ MD Jun 21, 2025 11:24
[2025-06-21] MEDS: VANCOMYCIN 500mg/100mL 100 ML IV ONE (12:30)
--- NOTE | 2025-06-21 14:33 | DVHPN2 ---
Progress Note - Dictate Date Seen: Jun 21, 2025 Medical Necessity Reason Pt with a Central, PICC or Fol: Yes The following are medically ne: Central Line, Engel Catheter vital signs Vital Sign Date Time Temp Pulse Resp B/P (MAP) Pulse Ox O2 Delivery O2 Flow Rate FiO2 06/21/25 14:00 30 06/21/25 14:00 98 06/21/25 14:00 24 99 Mechanical Ventilator+ 06/21/25 13:38 124/39 (67) 06/21/25 12:00 97.7 97.7 Total Intake and Output 06/20/25 06/20/25 06/21/25 15:00 23:00 07:00 Intake Total 1622.09 ml 1213.32 ml 1221.84 ml Output Total 600 ml 3540 ml 1550 ml Balance 1022.09 ml -2326.68 ml -328.16 ml medications Current Medications Medications Dose Ordered Sig/Bárbara Route Start Time Stop Time Status Last Admin Dose Admin Ondansetron HCl 4 mg Q4HP PRN IV 06/09/25 01:00 Cancel Acetaminophen 650 mg Q6HP PRN PO 06/09/25 01:00 06/10/25 20:15 650 MG Nitroglycerin 0.4 mg Q5MINP PRN SL 06/09/25 01:00 Propofol 100 ml @ 2.16 mls/hr Q24H IV 06/11/25 12:00 06/21/25 12:23 4.32 MLS/HR Fentanyl Citrate 250 ml @ 2.5 mls/hr Q24H IV 06/11/25 12:00 06/20/25 23:55 10 MLS/HR Midazolam HCl 50 ml @ 1 mls/hr Q24H IV 06/11/25 14:45 06/14/25 01:02 2 MLS/HR Ipratropium [place] 0.5 mg Q6HR NEB 06/14/25 10:15 06/21/25 11:48 0.5 MG Enteral Nutritional Formula 1,000 ml 40ML/HR GT 06/14/25 10:15 Hold 06/16/25 19:52 1,000 ML Levalbuterol HCl 1.25 mg Q6HR NEB 06/15/25 00:00 06/21/25 11:48 1.25 MG Levothyroxine Sodium 50 mcg QAM@0600 PO 06/16/25 06:00 Hold 06/17/25 05:39 50 MCG Amino Acid Protein 30 ml BID GT 06/15/25 13:15 Hold 06/17/25 11:03 30 ML Carvedilol 12.5 mg BID PO 06/16/25 22:00 Hold 06/17/25 11:05 12.5 MG Sodium Bicarbonate 75 ml/ Dextrose 1,075 ml @ 700 mls/hr Q1H33M IV 06/16/25 17:15 06/16/25 18:47 Cancel Pantoprazole Sodium 40 mg BID IV 06/17/25 10:00 06/21/25 12:23 40 MG Vancomycin HCl 0 ml @ 0 mls/hr UD IV 06/17/25 11:45 Bumetanide 1 mg BIDD IV 06/17/25 18:00 Cancel Norepinephrine Bitartrate 250 ml @ 3.75 mls/hr Q24H IV 06/17/25 18:30 06/20/25 13:16 7.5 MLS/HR Phenylephrine HCl 250 ml @ 30 mls/hr Q8H20M IV 06/17/25 20:15 Bumetanide 12.5 mg/Miscellaneous 50 ml @ 2 mls/hr Q24H IV 06/18/25 09:15 06/20/25 20:12 2 MLS/HR Micafungin Sodium 100 mg/Sodium Chloride 100 ml @ 100 mls/hr DAILY IV 06/19/25 10:00 06/21/25 12:24 100 MLS/HR Amino Acids 0 ml @ 0 mls/hr PER PHARMACY IV 06/18/25 12:15 Diagnostic Test (Pha) 1 strip Q6HR 06/19/25 00:00 06/21/25 12:24 1 STRIP Insulin Human Regular FOLLOW SLIDING SCALE Q6HR SC 06/19/25 00:00 06/20/25 18:47 4 UNITS Dextrose 50 ml UD IV 06/18/25 22:00 Amiodarone HCL/ Dextrose 200 ml @ 16.66 mls/ hr Q12H IV 06/20/25 05:00 06/21/25 12:24 16.66 MLS/HR Sodium Chloride 40 meq/Sodium Acetate 30 meq/ Potassium Chloride 10 meq/ Magnesium Sulfate 8 meq/ Multivitamins 10 ml/Chromium/ Copper/Manganese/ Zinc 1 ml/Insulin Human Regular 17 units/Amino Acids/ Dextrose 843.17 ml @ 35 mls/hr Q24H6M IV 06/20/25 22:00 06/21/25 21:59 06/20/25 20:09 35 MLS/HR Meropenem 50 ml @ 17 mls/hr DAILY@0100 IV 06/21/25 01:00 Cancel Meropenem 50 ml @ 17 mls/hr Q12HR IV 06/20/25 13:00 06/20/25 21:55 17 MLS/HR Sodium Chloride 40 meq/Sodium Acetate 20 meq/ Potassium Chloride 40 meq/ Potassium Acetate 20 meq/Magnesium Sulfate 8 meq/ Multivitamins 10 ml/Chromium/ Copper/Manganese/ Zinc 1 ml/Insulin Human Regular 5 units/Amino Acids/ Dextrose 1,013.05 ml @ 43 mls/hr [id number] IV 06/21/25 22:00 06/22/25 21:59 laboratory and microbiology Laboratory Tests 06/21/25 03:10 Test 06/21/25 03:10 Range/Units Serum Glucose 127 H 74-106 mg/dL Assessment/Plan Impression Acute hypoxemic respiratory failure Acute pulmonary edema Pneumonia CHF Patient seen and examined in ICU Events On mechanical ventilation S/p intubation PEEP 5, FiO2 30% In the OR for further resection HD catheter placed yesterday Family declining hemodialysis Leaning towards comfort measures Labs and imaging reviewed ABG reviewed Management continue Vent support Titrate to maintain sats 90% or above Continue antibiotics F/u cultures Bronchodilators Diurese Monitor renal function Monitor electrolytes Supplement as needed HD per nephrology Pressors as needed for hemodynamic support To maintain a mean arterial pressure of 65 mmHg Family discussion pending DVT prophylaxis Critical care time 35 minutes Dietary Evaluation Review Comments: 1) If patient remains NPO > 7 days, consider EN/TPN to meet at least 75% of estimated daily needs 2) If gut is preferred, consider Nepro @ 25 mL/hr goal rate as tolerated. Flush with 200 mL free H2O Q6H. TF regimen will provide 1080 kcals, 49g Pro, and 1236 mL free H2O per 24 hrs. TF regimen will meet ~ 92% estimated energy needs and 52% estimated protein needs. 3) Advance to 60g CCHO renal cardiac diet when medically feasible, pending ST approval 4) Refer to outpatient RD/CDCES for weight management 5) Follow-up with cardiology, pulmonology, or nephrology 6) Continue to monitor I&O, labs, and skin integrity Expected Outcomes/Goals: 1) patient to receive nutritional support within 7 days of NPO status 2) labs to improve 3) diet to advance 4) f/u in 2-3 days Capillary Refill: < 3 seconds GIA HAYWARD MD Jun 21, 2025 14:33
--- NOTE | 2025-06-21 17:03 | DVHPNRES ---
Progress Note Date Seen: Jun 21, 2025 Resident Creating Document: MARCELLO BURDEN RESIDENT Medical Necessity Reason Pt with a Central, PICC or Fol: Yes The following are medically ne: Central Line, Engel Catheter Subjective Review of Systems This is a 54-year-old female with recent ESBL bacteriemia, chronic heart failure with preserved ejection fraction, paroxysmal atrial fibrillation, severe aortic and mitral insufficiency, prediabetes, asthma and CKD 3A, morbid obesity, questionable rheumatoid arthritis and Crohn's disease who presented to the ER for the evaluation of shortness of breaths for the past 2 days. Associated with nonproductive cough and swelling at her ankles for the past 2 weeks. She denied fever or chills per chart review. Patient was kept on BiPAP which did not improve her condition and she had increased work of breathing and therefore patient was intubated and mechanically ventilated on 06/11. She has been getting IV diuretics with Lasix, and has been getting treatment for CHF exacerbation and pneumonia. Per , Patient was intubated in 2022 for pneumonia Rogers, following which she needed oxygen supplementation with 5 L NC. Past medical history:severe aortic insufficiency, moderate MR, moderate TR, COPD on 4 L home oxygen, CKD 3B, questionable rheumatoid arthritis and Crohn's disease Past surgical history: EBENEZER: Back surgery: Hysterectomy Home medication: Patient denies taking biological agents or methotrexate. Eliquis 5 mg p.o. b.i.d., amiodarone 200 mg daily, clonidine 0.1 mg b.i.d., furosemide 40 mg p.o. b.i.d., ibuprofen p.r.n., metoprolol 200 mg b.i.d., rosuvastatin, tizanidine Follow up Dr. Contreras. Overnight afebrile, respiratory rate 24 per minute, on minimal vent settings at 30% FiO2. WBC downtrending from 20 on arrival to 9.5, BUN/creatinine trending up, GFR decreasing. Social history: Quit smoking 20 years, was smoking marijuana till June 2023. Lives with 06/14-Patient seen and examined in ICU. Patient was having AFib with RVR, started IV amiodarone, discontinued p.o. amiodarone. Which improved patient's heart rate. Started Coreg and amlodipine. 06/15 - seen and examined, WBC count increased to 14 from 9. GFR and creatinine improving. Intermittently AFib with RVR, IV amiodarone increased from 0.5-1. CPAP trial failed, low tidal volumes 06/16 - overnight 98.2, wbc inc to 21, cr improving, AGMA, started zosyn, tap water enema. 06/17 - overnight 99.9 F, intermittent tachycardia, abdomen is distended and tender, hypoactive, CT abdomen completed, showed Significant dilation of the colon measuring up to 8 cm with possible pneumatosis intestinalis along the ascending colon versus non dependent air. Evidence of portal venous gas. Imaging findings elevate concern for bowel ischemia of the ascending colon/cecum. Surgeon consulted-recommended surgery, consent signed patient undergoing ex laparotomy. NPO, pantoprazole b.i.d., DC antihypertensives. Lactic acid unremarkable, vanc and meropenem started. Nephrology started D5W bicarb drip. 06/18-overnight patient underwent subtotal colectomy, second-look surgery with possible bowel resection tomorrow 06/19. Pressor requirement decreased from Reuben- Synephrine and Levophed to Levophed. Currently at 4 mcg. Nephrology started Bumex drip 0.5. NG to LIS. Added micafungin today. Continue vanc and meropenem. DC LR. Continue D5 with bicarb. Chest x-ray shows worsening congestion. BUN creatinine trending up. WBC 46. No grimacing on abdominal outpatient today. ABG shows anion gap metabolic acidosis with respiratory compensation. 06/21 - over the weekend, 06/19, hemodialysis catheter placed, arterial line placed. Patient experienced AFib with RVR, IV mg increased to 1 mcg. Underwent hemodialysis 06/20, received 2 packed RBCs. Underwent ileosigmoid anastomosis, and ileostomy. Patient is on Levophed at 6 mcg. Anion gap acidosis resolving, DC bicarb drip. Urine output improving, nephrology-hold hemodialysis. Objective vital signs Vital Sign Date Time Temp Pulse Resp B/P (MAP) Pulse Ox O2 Delivery O2 Flow Rate FiO2 06/21/25 16:30 100 25 108/52 (70) 98 109/44 (65) 06/21/25 16:05 30 06/21/25 16:00 Mechanical Ventilator+ 06/21/25 12:00 97.7 97.7 Total Intake and Output 06/20/25 06/20/25 06/21/25 15:00 23:00 07:00 Intake Total 1622.09 ml 1213.32 ml 1221.84 ml Output Total 600 ml 3540 ml 1550 ml Balance 1022.09 ml -2326.68 ml -328.16 ml medications Current Medications Medications Dose Ordered Sig/Bárbara Route Start Time Stop Time Status Last Admin Dose Admin Ondansetron HCl 4 mg Q4HP PRN IV 06/09/25 01:00 Cancel Acetaminophen 650 mg Q6HP PRN PO 06/09/25 01:00 06/10/25 20:15 650 MG Nitroglycerin 0.4 mg Q5MINP PRN SL 06/09/25 01:00 Propofol 100 ml @ 2.16 mls/hr Q24H IV 06/11/25 12:00 06/21/25 12:23 4.32 MLS/HR Fentanyl Citrate 250 ml @ 2.5 mls/hr Q24H IV 06/11/25 12:00 06/20/25 23:55 10 MLS/HR Midazolam HCl 50 ml @ 1 mls/hr Q24H IV 06/11/25 14:45 06/14/25 01:02 2 MLS/HR Ipratropium [place] 0.5 mg Q6HR NEB 06/14/25 10:15 06/21/25 11:48 0.5 MG Enteral Nutritional Formula 1,000 ml 40ML/HR GT 06/14/25 10:15 Hold 06/16/25 19:52 1,000 ML Levalbuterol HCl 1.25 mg Q6HR NEB 06/15/25 00:00 06/21/25 11:48 1.25 MG Levothyroxine Sodium 50 mcg QAM@0600 PO 06/16/25 06:00 Hold 06/17/25 05:39 50 MCG Amino Acid Protein 30 ml BID GT 06/15/25 13:15 Hold 06/17/25 11:03 30 ML Carvedilol 12.5 mg BID PO 06/16/25 22:00 Hold 06/17/25 11:05 12.5 MG Sodium Bicarbonate 75 ml/ Dextrose 1,075 ml @ 700 mls/hr Q1H33M IV 06/16/25 17:15 06/16/25 18:47 Cancel Pantoprazole Sodium 40 mg BID IV 06/17/25 10:00 06/21/25 12:23 40 MG Vancomycin HCl 0 ml @ 0 mls/hr UD IV 06/17/25 11:45 Bumetanide 1 mg BIDD IV 06/17/25 18:00 Cancel Norepinephrine Bitartrate 250 ml @ 3.75 mls/hr Q24H IV 06/17/25 18:30 06/20/25 13:16 7.5 MLS/HR Phenylephrine HCl 250 ml @ 30 mls/hr Q8H20M IV 06/17/25 20:15 Bumetanide 12.5 mg/Miscellaneous 50 ml @ 2 mls/hr Q24H IV 06/18/25 09:15 06/20/25 20:12 2 MLS/HR Micafungin Sodium 100 mg/Sodium Chloride 100 ml @ 100 mls/hr DAILY IV 06/19/25 10:00 06/21/25 12:24 100 MLS/HR Amino Acids 0 ml @ 0 mls/hr PER PHARMACY IV 06/18/25 12:15 Diagnostic Test (Pha) 1 strip Q6HR 06/19/25 00:00 06/21/25 12:24 1 STRIP Insulin Human Regular FOLLOW SLIDING SCALE Q6HR SC 06/19/25 00:00 06/20/25 18:47 4 UNITS Dextrose 50 ml UD IV 06/18/25 22:00 Amiodarone HCL/ Dextrose 200 ml @ 16.66 mls/ hr Q12H IV 06/20/25 05:00 06/21/25 12:24 16.66 MLS/HR Sodium Chloride 40 meq/Sodium Acetate 30 meq/ Potassium Chloride 10 meq/ Magnesium Sulfate 8 meq/ Multivitamins 10 ml/Chromium/ Copper/Manganese/ Zinc 1 ml/Insulin Human Regular 17 units/Amino Acids/ Dextrose 843.17 ml @ 35 mls/hr Q24H6M IV 06/20/25 22:00 06/21/25 21:59 06/20/25 20:09 35 MLS/HR Meropenem 50 ml @ 17 mls/hr DAILY@0100 IV 06/21/25 01:00 Cancel Meropenem 50 ml @ 17 mls/hr Q12HR IV 06/20/25 13:00 06/20/25 21:55 17 MLS/HR Sodium Chloride 40 meq/Sodium Acetate 20 meq/ Potassium Chloride 40 meq/ Potassium Acetate 20 meq/Magnesium Sulfate 8 meq/ Multivitamins 10 ml/Chromium/ Copper/Manganese/ Zinc 1 ml/Insulin Human Regular 5 units/Amino Acids/ Dextrose 1,013.05 ml @ 43 mls/hr [id number] IV 06/21/25 22:00 06/22/25 21:59 Examination Morbidly obese female patient lying in the bed intubated and mechanically ventilated, RASS -3 General: Morbidly obese, afebrile, palor, mucosae are moist. Generalized anasarca. Cardiovascular: Tachycardic and irregular S1 and S2. No murmurs, gallops or rubs. No JVD elevation. 1+ pitting edema bilaterally Respiratory: Decreased bilateral air entry, coarse crackles bilateral lower lobe Abdomen: Drains attached to abdomen, non grimacing, nondistended, hypoactive bowel sounds, Rectal exam completed, shows liquid stool in the vault, no masses felt, stool color reddish Genitourinary: Right femoral hemodialysis Engel seen, MSK/skin: Skin is dry and warm Neurological: Intact gag/pupillary light reflex Pupils are isocoric and reactive. laboratory and microbiology Laboratory Tests 06/21/25 03:10 Test 06/21/25 03:10 Range/Units Serum Glucose 127 H 74-106 mg/dL Microbiology Date/Time Source Procedure Growth Status 06/17/25 07:00 Stool Stool Culture - Final Complete 06/17/25 07:00 Stool Shiga Toxin I & II - Final Complete 06/16/25 10:30 Blood Blood Culture - Final NO GROWTH AFTER 5 DAYS OF INCUBATION. Complete 06/11/25 14:25 Nose MRSA Screen - Final Complete Labs and/or images reviewed: Labs reviewed by me, Image(s) reviewed by me Problem List/Assessment/Plan Problem List/Assessment/Plan NEURO: Intubated, on sedatives CARDIOVASCULAR: Acute on chronic heart failure with preserved ejection fraction exacerbation Paroxysmal Atrial fibrillation with RVR Pulmonary edema Severe aortic insufficiency, mitral valve insufficiency, tricuspid regurg Per Cardiology:patient underwent a transesophageal echocardiogram on 03/26/2025 which revealed an EF of 60% with severe aortic insufficiency and with moderate mitral insufficiency. Continue with Preload and afterload reduction. ([id number]- VASc Score 2 points, HAS-BLED Score 0 points): We will recommend to continue antiarrhythmic therapy with amiodarone, DOAC therapy with Eliquis, and beta- octavio for rate control . Outpatient follow up with Dr. Melo in [place] for aortic valve replacement with possible TAVR as well as possible mitral clip. She has seen pony roll finisher in [place] one time and underwent a EBENEZER. The patient is scheduled to have a right and left heart catheterization later this month for TAVR workup. Discontinued P.o. amlodipine, p.o. Coreg IV amiodarone protocol started 06/14 Discontinued Lasix 40 Discontinued Solu-Medrol Lovenox daily PULMONARY: Acute hypoxic respiratory failure status post intubation 06/11 Hx of Pna and intubation 2022 Sepsis secondary to Acute Gram-positive and Gram-negative pneumonia Likely COPD on 4L home O2 Chronic oxygen dependence History of asthma Discontinued IV doxycycline, added zosyn 06/16, started IV vancomycin and IV meropenem 06/17, added micafungin 06/18 Nebulized treatments GASTROINTESTINAL: Pneumatosis intestinalis and megacolon likely ischemic bowel Perforation and peritonitis Anion gap metabolic acidosis Status s/p laparotomy, subtotal colectomy 06/17, resection of descending colon 06/19, ileocolic anastomosis with protective loop ileostomy, drain placement 06/20 Transaminitis, likely nonalcoholic steatohepatitis liver ultrasound shows hepatic steatosis CT abdomen completed, showed Significant dilation of the colon measuring up to 8 cm with possible pneumatosis intestinalis along the ascending colon versus non dependent air. Evidence of portal venous gas. Imaging findings elevate concern for bowel ischemia of the ascending colon/cecum. Surgeon - strict NPO, NG tube to LIS, wound VAC ordered for midline wound GENITOURINARY: NYASIA secondary to hemodynamically mediated/VMN requiring hemodialysis 06/20 ? Chronic kidney disease Anemia of CKD Kidney ultrasound shows Normal sonographic appearance of the kidneys. No hydronephrosis. 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 Bowel regimen: Lactulose discontinued Code status: Full code LINES/DRAINS/ACCESS: IV access: Right IJ 06/11 Drips: Versed, fentanyl, Levophed Engel catheter DISPOSITION: ICU Patient's status discussed with the patient's spouse at bedside, nurse in which all questions have been answered Critical care time spent more than 81 minutes, including patient care, chart review, and updating the family. Excluding any procedures Case discussed with Dr. Benjamin Plan discussed with: Other (Mother at bedside) My Orders My Orders Orders - MARCELLO BURDEN Procedure Category Date Status Time Amino Acid PHA 06/21/25 In Process Infusion... W/Sodium 22:00 Comprehensive LAB 06/22/25 Verified Metabolic Panel 04:00 Magnesium LAB 06/22/25 Verified 04:00 Phosphorus LAB 06/22/25 Verified 04:00 Tpn Per Pharmacy DEANDRA 06/21/25 In Process 22:00 Dietary Evaluation Review Comments: 1) If patient remains NPO > 7 days, consider EN/TPN to meet at least 75% of estimated daily needs 2) If gut is preferred, consider Nepro @ 25 mL/hr goal rate as tolerated. Flush with 200 mL free H2O Q6H. TF regimen will provide 1080 kcals, 49g Pro, and 1236 mL free H2O per 24 hrs. TF regimen will meet ~ 92% estimated energy needs and 52% estimated protein needs. 3) Advance to 60g CCHO renal cardiac diet when medically feasible, pending ST approval 4) Refer to outpatient RD/CDCES for weight management 5) Follow-up with cardiology, pulmonology, or nephrology 6) Continue to monitor I&O, labs, and skin integrity Expected Outcomes/Goals: 1) patient to receive nutritional support within 7 days of NPO status 2) labs to improve 3) diet to advance 4) f/u in 2-3 days Sepsis reassessment post fluid Capillary Refill: < 3 seconds Date of Service: Jun 21, 2025 Billing Provider: ELZA BENJAMIN MD Common Visit Codes: 57192-[id number] CARE 30-74 MIN, [id number] CARE-EACH +30MIN MARCELLO BURDEN Jun 21, 2025 17:03 ELZA BENJAMIN MD Jun 22, 2025 16:04
[2025-06-21] MEDS: TPN PER PHARMACY IV NR (19:54)
[2025-06-21] MEDS: EPOETIN ALFA-EPBX 10,000 UNIT/1ML VIAL SC ONE (20:50)
--- NOTE | 2025-06-21 23:43 | DVHPN2 ---
Progress Note - Dictate Date Seen: Jun 21, 2025 Medical Necessity Reason Pt with a Central, PICC or Fol: Yes The following are medically ne: Central Line, Engel Catheter Subjective Patient was seen and evaluated in follow up in the ICU. Patient is intubated and sedated on ventilator. 30% FiO2. Patient receiving vasopressors for hemodynamic support. WBC 16, HGB 8.3, HCT 24, K 2.8, BUN 62, Tool And Gauge Inspector 2.48. vital signs Vital Sign Date Time Temp Pulse Resp B/P (MAP) Pulse Ox O2 Delivery O2 Flow Rate FiO2 06/21/25 22:50 101 24 130/57 (81) 99 30 06/21/25 22:00 Mechanical Ventilator+ 06/21/25 20:00 98.5 98.5 Total Intake and Output 06/20/25 06/20/25 06/21/25 15:00 23:00 07:00 Intake Total 1622.09 ml 1213.32 ml 1221.84 ml Output Total 600 ml 3540 ml 1550 ml Balance 1022.09 ml -2326.68 ml -328.16 ml medications Current Medications Medications Dose Ordered Sig/Bárbara Route Start Time Stop Time Status Last Admin Dose Admin Ondansetron HCl 4 mg Q4HP PRN IV 06/09/25 01:00 Cancel Acetaminophen 650 mg Q6HP PRN PO 06/09/25 01:00 06/10/25 20:15 650 MG Nitroglycerin 0.4 mg Q5MINP PRN SL 06/09/25 01:00 Propofol 100 ml @ 2.16 mls/hr Q24H IV 06/11/25 12:00 06/21/25 12:23 4.32 MLS/HR Fentanyl Citrate 250 ml @ 2.5 mls/hr Q24H IV 06/11/25 12:00 06/21/25 19:22 17.5 MLS/HR Midazolam HCl 50 ml @ 1 mls/hr Q24H IV 06/11/25 14:45 06/21/25 20:00 1 MLS/HR Ipratropium [place] 0.5 mg Q6HR NEB 06/14/25 10:15 06/21/25 18:28 0.5 MG Enteral Nutritional Formula 1,000 ml 40ML/HR GT 06/14/25 10:15 Hold 06/16/25 19:52 1,000 ML Levalbuterol HCl 1.25 mg Q6HR NEB 06/15/25 00:00 06/21/25 18:28 1.25 MG Levothyroxine Sodium 50 mcg QAM@0600 PO 06/16/25 06:00 Hold 06/17/25 05:39 50 MCG Amino Acid Protein 30 ml BID GT 06/15/25 13:15 Hold 06/17/25 11:03 30 ML Carvedilol 12.5 mg BID PO 06/16/25 22:00 Hold 06/17/25 11:05 12.5 MG Sodium Bicarbonate 75 ml/ Dextrose 1,075 ml @ 700 mls/hr Q1H33M IV 06/16/25 17:15 06/16/25 18:47 Cancel Pantoprazole Sodium 40 mg BID IV 06/17/25 10:00 06/21/25 21:44 40 MG Vancomycin HCl 0 ml @ 0 mls/hr UD IV 06/17/25 11:45 Bumetanide 1 mg BIDD IV 06/17/25 18:00 Cancel Norepinephrine Bitartrate 250 ml @ 3.75 mls/hr Q24H IV 06/17/25 18:30 06/21/25 21:00 3.75 MLS/HR Phenylephrine HCl 250 ml @ 30 mls/hr Q8H20M IV 06/17/25 20:15 Bumetanide 12.5 mg/Miscellaneous 50 ml @ 2 mls/hr Q24H IV 06/18/25 09:15 06/21/25 21:00 2 MLS/HR Micafungin Sodium 100 mg/Sodium Chloride 100 ml @ 100 mls/hr DAILY IV 06/19/25 10:00 06/21/25 12:24 100 MLS/HR Amino Acids 0 ml @ 0 mls/hr PER PHARMACY IV 06/18/25 12:15 Diagnostic Test (Pha) 1 strip Q6HR 06/19/25 00:00 06/21/25 19:13 1 STRIP Insulin Human Regular FOLLOW SLIDING SCALE Q6HR SC 06/19/25 00:00 06/21/25 18:00 2 UNITS Dextrose 50 ml UD IV 06/18/25 22:00 Amiodarone HCL/ Dextrose 200 ml @ 16.66 mls/ hr Q12H IV 06/20/25 05:00 06/21/25 12:24 16.66 MLS/HR Meropenem 50 ml @ 17 mls/hr DAILY@0100 IV 06/21/25 01:00 Cancel Meropenem 50 ml @ 17 mls/hr Q12HR IV 06/20/25 13:00 06/21/25 21:45 17 MLS/HR Sodium Chloride 40 meq/Sodium Acetate 20 meq/ Potassium Chloride 40 meq/ Potassium Acetate 20 meq/Magnesium Sulfate 8 meq/ Multivitamins 10 ml/Chromium/ Copper/Manganese/ Zinc 1 ml/Insulin Human Regular 5 units/Amino Acids/ Dextrose 1,013.05 ml @ 43 mls/hr [id number] IV 06/21/25 22:00 06/22/25 21:59 06/21/25 19:54 43 MLS/HR objective GENERAL: Ill appearing, intubated on ventilator. EYES: PERRL, EOMI. Anicteric. HENT: Moist mucous membranes. LUNGS: Decreased breath sounds. CARDIOVASCULAR: Regular rate and rhythm. ABDOMEN: Soft, nontender and nondistended. EXTREMITIES: No edema. NEUROLOGIC: No focal neurological deficits. SKIN: Warm, dry. laboratory and microbiology Laboratory Tests 06/21/25 18:02 06/21/25 03:10 Test 06/21/25 03:10 Range/Units Serum Glucose 127 H 74-106 mg/dL Problem List Chronic HFpEF, NYHA class IV. Paroxysmal atrial fibrillation, stage III, now NSR (on amiodarone/Elqiuis therapy). Severe aortic valve and mitral valve insufficiency. Acute hypoxic respiratory failure. Asthma. Chronic kidney disease. Thyroid disease. Prediabetes, newly diagnosed. Morbid obesity. History of tobacco use. Assessment/Plan Continued all current supportive medical care. IV Amiodarone. IV antibiotics as ordered. Nebulized breathing treatments. Additional plan as per the hospital course. Critical care time of 45 minutes provided to include time spent evaluation of patient at bedside, when appropriate patient/family education for diagnosis, treatment plan, review of pertinent medical information and discussion of care with specialty providers and PCP. Mechanical ventilator parameters, treatment and adjustments have personally been reviewed by me and treatment plan by hand packer/packager has also been reviewed. Dietary Evaluation Review Comments: 1) If patient remains NPO > 7 days, consider EN/TPN to meet at least 75% of estimated daily needs 2) If gut is preferred, consider Nepro @ 25 mL/hr goal rate as tolerated. Flush with 200 mL free H2O Q6H. TF regimen will provide 1080 kcals, 49g Pro, and 1236 mL free H2O per 24 hrs. TF regimen will meet ~ 92% estimated energy needs and 52% estimated protein needs. 3) Advance to 60g CCHO renal cardiac diet when medically feasible, pending ST approval 4) Refer to outpatient RD/CDCES for weight management 5) Follow-up with cardiology, pulmonology, or nephrology 6) Continue to monitor I&O, labs, and skin integrity Expected Outcomes/Goals: 1) patient to receive nutritional support within 7 days of NPO status 2) labs to improve 3) diet to advance 4) f/u in 2-3 days Plan discussed with: Other Capillary Refill: < 3 seconds URBANO TRUONG MD Jun 21, 2025 23:43
[2025-06-22] VITALS (109 sets, daily range): BP systolic 72–159; BP diastolic 25–69; PULSE 90–133; RESP 11–26; TEMP 98.8–98.9; O2SAT 96–100
[2025-06-22 00:46] LABS: Potassium 3.6 mmol/L (3.5-5.1); Sodium 139 mmol/L (136-145)
[2025-06-22 00:47] LABS: Anion Gap 13 (5-15); Carbon Dioxide 28 mmol/L (20-31)
[2025-06-22 00:52] LABS: BUN/Creatinine Ratio 28.3 (10.0-20.0)
[2025-06-22 00:55] LABS: Blood Urea Nitrogen 45 mg/dL (9-23); Calcium 8.6 mg/dL (8.7-10.4); Chloride 98 mmol/L (98-107); Glucose 153 mg/dL (74-106)
[2025-06-22 03:42] LABS: Hematocrit 25.4 % (36.0-46.0); Hemoglobin 8.5 g/dL (12.2-16.2); Mean Corpuscular Hemoglobin 27.9 pg (28.0-32.0); Mean Corpuscular Volume 83.4 fL (80.0-100.0)
[2025-06-22 03:58] LABS: Alanine Aminotransferase 25 U/L (7-40); Anion Gap 12 (5-15); BUN/Creatinine Ratio 29.0 (10.0-20.0); Carbon Dioxide 29 mmol/L (20-31); Chloride 98 mmol/L (98-107); Magnesium 1.9 mg/dL (1.6-2.6); Sodium 139 mmol/L (136-145)
[2025-06-22 03:59] LABS: Bilirubin, Total 0.9 mg/dL (0.2-1.0)
[2025-06-22 04:02] LABS: Albumin 2.8 g/dL (3.2-4.8); Alkaline Phosphatase 127 U/L (46-116); Blood Urea Nitrogen 47 mg/dL (9-23); Calcium 8.5 mg/dL (8.7-10.4); Glucose 128 mg/dL (74-106); Potassium 3.4 mmol/L (3.5-5.1); Total Protein 5.0 g/dL (5.7-8.2)
[2025-06-22] MEDS: POTASSIUM CHL 20MEQ/100ML 100 ML IV ONE (04:45)
[2025-06-22 05:26] LABS: Total Cells Counted 100.0 (100)
[2025-06-22 05:27] LABS: Giant Platelets Few
--- NOTE | 2025-06-22 05:41 | DVH ---
CHEST RADIOGRAPH Indication: Follow up Technique: Single frontal view of the chest was obtained COMPARISON: XY CHEST PORTABLE on DOS: 06/21/25, XY CHEST PORTABLE on DOS: 06/20/25, XY CHEST XRAY 1 VIE W on DOS: 06/19/25, XY CHEST XRAY 1 VIEW on DOS: 06/18/25, XY CHEST XRAY 1 VIEW on DOS: 06/17/25 FINDINGS: Lines and Tubes: Interval advancement of the endotracheal tube such that the tip now projects approxi mately 0.9 cm above the level of the donna. Remaining lines and tubes unchanged. Lungs: Mild persistent diffuse increased prominence of the pulmonary vasculature. No evidence of foc al consolidation. Pleura: No effusion. No pneumothorax. Cardiomediastinal contours: Unremarkable Bones: Unremarkable IMPRESSION: 1. Interval advancement of the endotracheal tube such that the tip now projects approximately 0.9 cm above the level of the donna. Remaining lines and tubes unchanged. 2. Stable mild diffuse increased prominence of the pulmonary vasculature.
[2025-06-22 07:32] LABS: Base Excess 6.8 mmol/L (-2.0-3.0)
--- NOTE | 2025-06-22 09:31 | DVH ---
LEFT Upper Extremity Venous Duplex Clinical History: RULE OUT DVT Comparison: None Technique: Duplex Doppler evaluation of the venous system of the LEFT lower neck and upper extremity including color Doppler and spectral/pulsed waveform analysis was performed. Findings: The internal jugular vein demonstrates appropriate compressibility and waveform variability. The subclavian vein is patent on color Doppler evaluation without intraluminal thrombus and demonstra navdeep waveform variability. The visualized portion of the brachiocephalic vein is patent on color Doppler evaluation without intr aluminal thrombus and demonstrates waveform variability. The axillary vein demonstrates appropriate compressibility and waveform variability. The brachial veins demonstrate appropriate compressibility and patency on Doppler evaluation. The basilic vein demonstrates appropriate compressibility and patency on Doppler evaluation. The cephalic vein demonstrates intraluminal thrombus and noncompressibility Impression: No deep venous thrombus identified in the LEFT upper extremity vessels evaluated above. Thrombus is present in the cephalic vein. Workstation: [facility]
[2025-06-22 10:46] LABS: Base Excess 3.8 mmol/L (-2.0-3.0)
[2025-06-22] MEDS: VANCOMYCIN 500mg/100mL 100 ML IV ONE (12:00)
--- NOTE | 2025-06-22 14:53 | DVHPN2 ---
Progress Note Date Seen: Jun 22, 2025 Medical Necessity Reason Pt with a Central, PICC or Fol: Yes The following are medically ne: Central Line, Engel Catheter Subjective Patient reports: Other (intubated) Review of Systems: Deferred Objective vital signs Vital Sign Date Time Temp Pulse Resp B/P (MAP) Pulse Ox O2 Delivery O2 Flow Rate FiO2 06/22/25 13:45 103 21 104/41 (62) 97 06/22/25 13:43 30 06/22/25 12:00 98.8 98.8 06/22/25 12:00 Mechanical Ventilator+ Total Intake and Output 06/21/25 06/21/25 06/22/25 15:00 23:00 07:00 Intake Total 728.27 ml 665.487 ml 904.63 ml Output Total 990 ml 570 ml Balance 728.27 ml -324.513 ml 334.63 ml medications Current Medications Medications Dose Ordered Sig/Bárbara Route Start Time Stop Time Status Last Admin Dose Admin Ondansetron HCl 4 mg Q4HP PRN IV 06/09/25 01:00 Cancel Acetaminophen 650 mg Q6HP PRN PO 06/09/25 01:00 06/10/25 20:15 650 MG Nitroglycerin 0.4 mg Q5MINP PRN SL 06/09/25 01:00 Propofol 100 ml @ 2.16 mls/hr Q24H IV 06/11/25 12:00 06/21/25 12:23 4.32 MLS/HR Fentanyl Citrate 250 ml @ 2.5 mls/hr Q24H IV 06/11/25 12:00 06/22/25 09:15 17.5 MLS/HR Midazolam HCl 50 ml @ 1 mls/hr Q24H IV 06/11/25 14:45 06/22/25 09:52 2 MLS/HR Ipratropium [place] 0.5 mg Q6HR NEB 06/14/25 10:15 06/22/25 11:36 0.5 MG Enteral Nutritional Formula 1,000 ml 40ML/HR GT 06/14/25 10:15 Hold 06/16/25 19:52 1,000 ML Levalbuterol HCl 1.25 mg Q6HR NEB 06/15/25 00:00 06/22/25 11:36 1.25 MG Levothyroxine Sodium 50 mcg QAM@0600 PO 06/16/25 06:00 Hold 06/17/25 05:39 50 MCG Amino Acid Protein 30 ml BID GT 06/15/25 13:15 Hold 06/17/25 11:03 30 ML Carvedilol 12.5 mg BID PO 06/16/25 22:00 Hold 06/17/25 11:05 12.5 MG Sodium Bicarbonate 75 ml/ Dextrose 1,075 ml @ 700 mls/hr Q1H33M IV 06/16/25 17:15 06/16/25 18:47 Cancel Pantoprazole Sodium 40 mg BID IV 06/17/25 10:00 06/22/25 09:44 40 MG Vancomycin HCl 0 ml @ 0 mls/hr UD IV 06/17/25 11:45 Bumetanide 1 mg BIDD IV 06/17/25 18:00 Cancel Norepinephrine Bitartrate 250 ml @ 3.75 mls/hr Q24H IV 06/17/25 18:30 06/21/25 21:00 3.75 MLS/HR Phenylephrine HCl 250 ml @ 30 mls/hr Q8H20M IV 06/17/25 20:15 Micafungin Sodium 100 mg/Sodium Chloride 100 ml @ 100 mls/hr DAILY IV 06/19/25 10:00 06/22/25 09:43 100 MLS/HR Amino Acids 0 ml @ 0 mls/hr PER PHARMACY IV 06/18/25 12:15 Diagnostic Test (Pha) 1 strip Q6HR 06/19/25 00:00 06/22/25 05:37 1 STRIP Insulin Human Regular FOLLOW SLIDING SCALE Q6HR SC 06/19/25 00:00 06/22/25 12:00 2 UNITS Dextrose 50 ml UD IV 06/18/25 22:00 Amiodarone HCL/ Dextrose 200 ml @ 16.66 mls/ hr Q12H IV 06/20/25 05:00 06/22/25 09:15 16.66 MLS/HR Meropenem 50 ml @ 17 mls/hr DAILY@0100 IV 06/21/25 01:00 Cancel Meropenem 50 ml @ 17 mls/hr Q12HR IV 06/20/25 13:00 06/22/25 09:43 17 MLS/HR Sodium Chloride 40 meq/Sodium Acetate 20 meq/ Potassium Chloride 40 meq/ Potassium Acetate 20 meq/Magnesium Sulfate 8 meq/ Multivitamins 10 ml/Chromium/ Copper/Manganese/ Zinc 1 ml/Insulin Human Regular 5 units/Amino Acids/ Dextrose 1,013.05 ml @ 43 mls/hr [id number] IV 06/21/25 22:00 06/22/25 21:59 06/21/25 19:54 43 MLS/HR Sodium Chloride 40 meq/Sodium Acetate 20 meq/ Potassium Chloride 40 meq/ Potassium Acetate 20 meq/Potassium Phosphate 10 meq/ Magnesium Sulfate 12 meq/ Multivitamins 10 ml/Chromium/ Copper/Manganese/ Zinc 1 ml/Insulin Human Regular 5 units/Amino Acids/ Dextrose 1,116.3227 ml @ 47 mls/hr [id number] IV 06/22/25 22:00 06/23/25 21:59 Examination: GENERAL:Abnormal, LUNGS:Abnormal, ABDOMEN:Abnormal, MSK:Abnormal, NEURO:Abnormal laboratory and microbiology Laboratory Tests 06/22/25 02:45 Test 06/22/25 02:45 Range/Units Serum Glucose 128 H 74-106 mg/dL Microbiology Date/Time Source Procedure Growth Status 06/17/25 07:00 Stool Stool Culture - Final Complete 06/17/25 07:00 Stool Shiga Toxin I & II - Final Complete 06/16/25 10:30 Blood Blood Culture - Final NO GROWTH AFTER 5 DAYS OF INCUBATION. Complete 06/11/25 14:25 Nose MRSA Screen - Final Complete Problem List/Assessment/Plan Problem List/Assessment/Plan Acute kidney injury on chronic kidney disease stage IIIA secondary to hemodynamic mediated, FeNa > 2% 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 Currently on vasopressors DC IV fluids She is on TPN dc bumex drip Plan discussed with: Other Dietary Evaluation Review Comments: 1) If patient remains NPO > 7 days, consider EN/TPN to meet at least 75% of estimated daily needs 2) If gut is preferred, consider Nepro @ 25 mL/hr goal rate as tolerated. Flush with 200 mL free H2O Q6H. TF regimen will provide 1080 kcals, 49g Pro, and 1236 mL free H2O per 24 hrs. TF regimen will meet ~ 92% estimated energy needs and 52% estimated protein needs. 3) Advance to 60g CCHO renal cardiac diet when medically feasible, pending ST approval 4) Refer to outpatient RD/[facility] for weight management 5) Follow-up with cardiology, pulmonology, or nephrology 6) Continue to monitor I&O, labs, and skin integrity Expected Outcomes/Goals: 1) patient to receive nutritional support within 7 days of NPO status 2) labs to improve 3) diet to advance 4) f/u in 2-3 days Sepsis reassessment post fluid Capillary Refill: < 3 seconds ANGELICA NASH MD Jun 22, 2025 14:53
--- NOTE | 2025-06-22 16:33 | DVHPN2 ---
Progress Note - Surgical Date Seen: Jun 22, 2025 Post op day Post op day: 5 Subjective Patient reports: Other (Intubated and sedated) Review of Systems: Deferred Objective Vital signs Vital Sign Date Time Temp Pulse Resp B/P (MAP) Pulse Ox O2 Delivery O2 Flow Rate FiO2 06/22/25 16:15 92 20 114/45 (68) 98 06/22/25 16:00 30 06/22/25 16:00 98.9 98.9 06/22/25 16:00 Mechanical Ventilator+ Total Intake and Output 06/21/25 06/21/25 06/22/25 15:00 23:00 07:00 Intake Total 728.27 ml 665.487 ml 904.63 ml Output Total 990 ml 570 ml Balance 728.27 ml -324.513 ml 334.63 ml Medications Current Medications Medications Dose Ordered Sig/Bárbara Route Start Time Stop Time Status Last Admin Dose Admin Ondansetron HCl 4 mg Q4HP PRN IV 06/09/25 01:00 Cancel Acetaminophen 650 mg Q6HP PRN PO 06/09/25 01:00 06/10/25 20:15 650 MG Nitroglycerin 0.4 mg Q5MINP PRN SL 06/09/25 01:00 Propofol 100 ml @ 2.16 mls/hr Q24H IV 06/11/25 12:00 06/21/25 12:23 4.32 MLS/HR Fentanyl Citrate 250 ml @ 2.5 mls/hr Q24H IV 06/11/25 12:00 06/22/25 09:15 17.5 MLS/HR Midazolam HCl 50 ml @ 1 mls/hr Q24H IV 06/11/25 14:45 06/22/25 09:52 2 MLS/HR Ipratropium [place] 0.5 mg Q6HR NEB 06/14/25 10:15 06/22/25 11:36 0.5 MG Levalbuterol HCl 1.25 mg Q6HR NEB 06/15/25 00:00 06/22/25 11:36 1.25 MG Sodium Bicarbonate 75 ml/ Dextrose 1,075 ml @ 700 mls/hr Q1H33M IV 06/16/25 17:15 06/16/25 18:47 Cancel Pantoprazole Sodium 40 mg BID IV 06/17/25 10:00 06/22/25 09:44 40 MG Vancomycin HCl 0 ml @ 0 mls/hr UD IV 06/17/25 11:45 Bumetanide 1 mg BIDD IV 06/17/25 18:00 Cancel Norepinephrine Bitartrate 250 ml @ 3.75 mls/hr Q24H IV 06/17/25 18:30 06/21/25 21:00 3.75 MLS/HR Phenylephrine HCl 250 ml @ 30 mls/hr Q8H20M IV 06/17/25 20:15 Micafungin Sodium 100 mg/Sodium Chloride 100 ml @ 100 mls/hr DAILY IV 06/19/25 10:00 06/22/25 09:43 100 MLS/HR Amino Acids 0 ml @ 0 mls/hr PER PHARMACY IV 06/18/25 12:15 Diagnostic Test (Pha) 1 strip Q6HR 06/19/25 00:00 06/22/25 12:00 1 STRIP Insulin Human Regular FOLLOW SLIDING SCALE Q6HR SC 06/19/25 00:00 06/22/25 12:00 2 UNITS Dextrose 50 ml UD IV 06/18/25 22:00 Amiodarone HCL/ Dextrose 200 ml @ 16.66 mls/ hr Q12H IV 06/20/25 05:00 06/22/25 09:15 16.66 MLS/HR Meropenem 50 ml @ 17 mls/hr DAILY@0100 IV 06/21/25 01:00 Cancel Meropenem 50 ml @ 17 mls/hr Q12HR IV 06/20/25 13:00 06/22/25 09:43 17 MLS/HR Sodium Chloride 40 meq/Sodium Acetate 20 meq/ Potassium Chloride 40 meq/ Potassium Acetate 20 meq/Magnesium Sulfate 8 meq/ Multivitamins 10 ml/Chromium/ Copper/Manganese/ Zinc 1 ml/Insulin Human Regular 5 units/Amino Acids/ Dextrose 1,013.05 ml @ 43 mls/hr [id number] IV 06/21/25 22:00 06/22/25 21:59 06/21/25 19:54 43 MLS/HR Sodium Chloride 40 meq/Sodium Acetate 20 meq/ Potassium Chloride 40 meq/ Potassium Acetate 20 meq/Potassium Phosphate 10 meq/ Magnesium Sulfate 12 meq/ Multivitamins 10 ml/Chromium/ Copper/Manganese/ Zinc 1 ml/Insulin Human Regular 5 units/Amino Acids/ Dextrose 1,116.3227 ml @ 47 mls/hr [id number] IV 06/22/25 22:00 06/23/25 21:59 Laboratory Laboratory Tests 06/22/25 02:45 Test 06/22/25 02:45 Range/Units Serum Glucose 128 H 74-106 mg/dL Microbiology Date/Time Source Procedure Growth Status 06/17/25 07:00 Stool Stool Culture - Final Complete 06/17/25 07:00 Stool Shiga Toxin I & II - Final Complete 06/16/25 10:30 Blood Blood Culture - Final NO GROWTH AFTER 5 DAYS OF INCUBATION. Complete 06/11/25 14:25 Nose MRSA Screen - Final Complete Examination: GENERAL:Abnormal (Intubated and sedated), HEENT:Abnormal (ETT/OG tube in place), ABDOMEN:Abnormal (Nondistended midline wound with wound VAC placed without surrounding erythema or edema, right lower quadrant drain with 20 mL of serous output, left lower quadrant drain with 200 mL of serosanguineous output, ileostomy with pink mucosa and bowel sweat in bag) Labs and/or images reviewed: Labs reviewed by me (Leukocytosis holding steady a 16), Image(s) reviewed by me (Bilateral chest effusions) Problem List/Assessment/Plan Assessment and Plan Mrs. Penaloza is a 54-year-old female who has been in the hospital since June 08 due to pneumonia and CHF exacerbation that resulted in intubation. I was consulted on 06/17 due to sever colonic distention and pneumatosis seen on CT from that day. Pt is currently POD 5 from initial surgery, but required to take backs to the OR. Her surgeries were finalized on 06/20: ileocolic anastomosis was done, a protective loop ileostomy was done, 2 drains were placed, fascia was closed, skin was left opened to close by secondary intention given high risk for SSI. Patient's Levophed requirements have been coming down, still no ileostomy output just some bowel sweat in the bag. Leukocytosis holding steady at 16. Both drains putting out serosanguineous output. Patient to remain NPO until ileostomy started functioning with NG tube to low intermittent suctioned. Surgeries: 06/17: Exploratory laparotomy, subtotal colectomy (resection of ascending and transverse colon), temporary abdominal closure 9/13: Exploratory laparotomy, takedown of temporary abdominal dressing, wash out, resection of descending colon 06/20: Exploratory laparotomy, takedown of temporary abdominal dressing, washout, ileocolic anastomosis, protective loop ileostomy, drain placement x2, fascial closure 1. Strict NPO 2. NG/OG tube to LIS 3. Wound VAC ordered for midline wound 4. Drain stripping and emptying once per shift and p.r.n. 5. Recommend continuation of TPN 6. Recommend continuation of IV antibiotics for a total of 7 days from the last surgery on 06/20 7. No GI cathartic medications Plan discussed with Plan discussed with: Spouse, Daughter Visit Coding Surgery Date of Service if different f: Jun 22, 2025 Billing Provider: SONAM ALCARAZ MD Surgery Visit Codes: [id number] INP/OBS CARE(HIGH) SONAM ALCARAZ MD Jun 22, 2025 16:33
[2025-06-22] MEDS: MAGNESIUM SULFATE 1GM/100ML 100 ML IV ONE (17:46)
--- NOTE | 2025-06-22 19:54 | DVHPNRES ---
Progress Note Date Seen: Jun 22, 2025 Resident Creating Document: MARCELLO BURDEN RESIDENT Medical Necessity Reason Pt with a Central, PICC or Fol: Yes The following are medically ne: Central Line, Engel Catheter Subjective Review of Systems This is a 54-year-old female with recent ESBL bacteriemia, chronic heart failure with preserved ejection fraction, paroxysmal atrial fibrillation, severe aortic and mitral insufficiency, prediabetes, asthma and CKD 3A, morbid obesity, questionable rheumatoid arthritis and Crohn's disease who presented to the ER for the evaluation of shortness of breaths for the past 2 days. Associated with nonproductive cough and swelling at her ankles for the past 2 weeks. She denied fever or chills per chart review. Patient was kept on BiPAP which did not improve her condition and she had increased work of breathing and therefore patient was intubated and mechanically ventilated on 06/11. She has been getting IV diuretics with Lasix, and has been getting treatment for CHF exacerbation and pneumonia. Per , Patient was intubated in 2022 for pneumonia [place], following which she needed oxygen supplementation with 5 L NC. Past medical history:severe aortic insufficiency, moderate MR, moderate TR, COPD on 4 L home oxygen, CKD 3B, questionable rheumatoid arthritis and Crohn's disease Past surgical history: EBENEZER: Back surgery: Hysterectomy Home medication: Patient denies taking biological agents or methotrexate. Eliquis 5 mg p.o. b.i.d., amiodarone 200 mg daily, clonidine 0.1 mg b.i.d., furosemide 40 mg p.o. b.i.d., ibuprofen p.r.n., metoprolol 200 mg b.i.d., rosuvastatin, tizanidine Follow up Dr. Contreras. Overnight afebrile, respiratory rate 24 per minute, on minimal vent settings at 30% FiO2. WBC downtrending from 20 on arrival to 9.5, BUN/creatinine trending up, GFR decreasing. Social history: Quit smoking 20 years, was smoking marijuana till June 2023. Lives with 06/14-Patient seen and examined in ICU. Patient was having AFib with RVR, started IV amiodarone, discontinued p.o. amiodarone. Which improved patient's heart rate. Started Coreg and amlodipine. 06/15 - seen and examined, WBC count increased to 14 from 9. GFR and creatinine improving. Intermittently AFib with RVR, IV amiodarone increased from 0.5-1. CPAP trial failed, low tidal volumes 06/16 - overnight 98.2, wbc inc to 21, cr improving, AGMA, started zosyn, tap water enema. 06/17 - overnight 99.9 F, intermittent tachycardia, abdomen is distended and tender, hypoactive, CT abdomen completed, showed Significant dilation of the colon measuring up to 8 cm with possible pneumatosis intestinalis along the ascending colon versus non dependent air. Evidence of portal venous gas. Imaging findings elevate concern for bowel ischemia of the ascending colon/cecum. Surgeon consulted-recommended surgery, consent signed patient undergoing ex laparotomy. NPO, pantoprazole b.i.d., DC antihypertensives. Lactic acid unremarkable, vanc and meropenem started. Nephrology started D5W bicarb drip. 06/18-overnight patient underwent subtotal colectomy, second-look surgery with possible bowel resection tomorrow 06/19. Pressor requirement decreased from Reuben- Synephrine and Levophed to Levophed. Currently at 4 mcg. Nephrology started Bumex drip 0.5. NG to LIS. Added micafungin today. Continue vanc and meropenem. DC LR. Continue D5 with bicarb. Chest x-ray shows worsening congestion. BUN creatinine trending up. WBC 46. No grimacing on abdominal outpatient today. ABG shows anion gap metabolic acidosis with respiratory compensation. 06/21 - over the weekend, 06/19, hemodialysis catheter placed, arterial line placed. Patient experienced AFib with RVR, IV mg increased to 1 mcg. Underwent hemodialysis 06/20, received 2 packed RBCs. Underwent ileosigmoid anastomosis, and ileostomy. Patient is on Levophed at 6 mcg. Anion gap acidosis resolving, DC bicarb drip. Urine output improving, nephrology-hold hemodialysis. 06/22 - seen and examined, NPO, NG to LIS, urine output 1100 for 24 hours, absent bowel sounds. Objective vital signs Vital Sign Date Time Temp Pulse Resp B/P (MAP) Pulse Ox O2 Delivery O2 Flow Rate FiO2 06/22/25 19:00 96 20 103/53 (70) 100 122/47 (72) 06/22/25 18:31 30 06/22/25 18:00 Mechanical Ventilator+ 06/22/25 16:00 98.9 98.9 Total Intake and Output 06/21/25 06/21/25 06/22/25 14:59 22:59 06:59 Intake Total 803.27 ml 631.557 ml 925.38 ml Output Total 990 ml 570 ml Balance 803.27 ml -358.443 ml 355.38 ml medications Current Medications Medications Dose Ordered Sig/Bárbara Route Start Time Stop Time Status Last Admin Dose Admin Ondansetron HCl 4 mg Q4HP PRN IV 06/09/25 01:00 Cancel Acetaminophen 650 mg Q6HP PRN PO 06/09/25 01:00 06/10/25 20:15 650 MG Nitroglycerin 0.4 mg Q5MINP PRN SL 06/09/25 01:00 Propofol 100 ml @ 2.16 mls/hr Q24H IV 06/11/25 12:00 06/21/25 12:23 4.32 MLS/HR Fentanyl Citrate 250 ml @ 2.5 mls/hr Q24H IV 06/11/25 12:00 06/22/25 09:15 17.5 MLS/HR Midazolam HCl 50 ml @ 1 mls/hr Q24H IV 06/11/25 14:45 06/22/25 09:52 2 MLS/HR Ipratropium [place] 0.5 mg Q6HR NEB 06/14/25 10:15 06/22/25 18:32 0.5 MG Levalbuterol HCl 1.25 mg Q6HR NEB 06/15/25 00:00 06/22/25 18:31 1.25 MG Sodium Bicarbonate 75 ml/ Dextrose 1,075 ml @ 700 mls/hr Q1H33M IV 06/16/25 17:15 06/16/25 18:47 Cancel Pantoprazole Sodium 40 mg BID IV 06/17/25 10:00 06/22/25 09:44 40 MG Vancomycin HCl 0 ml @ 0 mls/hr UD IV 06/17/25 11:45 Bumetanide 1 mg BIDD IV 06/17/25 18:00 Cancel Norepinephrine Bitartrate 250 ml @ 3.75 mls/hr Q24H IV 06/17/25 18:30 06/21/25 21:00 3.75 MLS/HR Phenylephrine HCl 250 ml @ 30 mls/hr Q8H20M IV 06/17/25 20:15 Micafungin Sodium 100 mg/Sodium Chloride 100 ml @ 100 mls/hr DAILY IV 06/19/25 10:00 06/22/25 09:43 100 MLS/HR Amino Acids 0 ml @ 0 mls/hr PER PHARMACY IV 06/18/25 12:15 Diagnostic Test (Pha) 1 strip Q6HR 06/19/25 00:00 06/22/25 17:45 1 STRIP Insulin Human Regular FOLLOW SLIDING SCALE Q6HR SC 06/19/25 00:00 06/22/25 17:45 2 UNITS Dextrose 50 ml UD IV 06/18/25 22:00 Amiodarone HCL/ Dextrose 200 ml @ 16.66 mls/ hr Q12H IV 06/20/25 05:00 06/22/25 09:15 16.66 MLS/HR Meropenem 50 ml @ 17 mls/hr DAILY@0100 IV 06/21/25 01:00 Cancel Meropenem 50 ml @ 17 mls/hr Q12HR IV 06/20/25 13:00 06/22/25 09:43 17 MLS/HR Sodium Chloride 40 meq/Sodium Acetate 20 meq/ Potassium Chloride 40 meq/ Potassium Acetate 20 meq/Magnesium Sulfate 8 meq/ Multivitamins 10 ml/Chromium/ Copper/Manganese/ Zinc 1 ml/Insulin Human Regular 5 units/Amino Acids/ Dextrose 1,013.05 ml @ 43 mls/hr [id number] IV 06/21/25 22:00 06/22/25 21:59 06/21/25 19:54 43 MLS/HR Sodium Chloride 40 meq/Sodium Acetate 20 meq/ Potassium Chloride 40 meq/ Potassium Acetate 20 meq/Potassium Phosphate 10 meq/ Magnesium Sulfate 12 meq/ Multivitamins 10 ml/Chromium/ Copper/Manganese/ Zinc 1 ml/Insulin Human Regular 5 units/Amino Acids/ Dextrose 1,116.3227 ml @ 47 mls/hr [id number] IV 06/22/25 22:00 06/23/25 21:59 Examination Morbidly obese female patient lying in the bed intubated and mechanically ventilated, RASS -3 General: Morbidly obese, afebrile, palor, mucosae are moist. Generalized anasarca. Cardiovascular: Tachycardic and irregular S1 and S2. No murmurs, gallops or rubs. No JVD elevation. 1+ pitting edema bilaterally Respiratory: Decreased bilateral air entry, coarse crackles bilateral lower lobe Abdomen: Drains attached to abdomen, non grimacing, nondistended, hypoactive bowel sounds, ileostomy with no output, stoma red. Rectal exam completed, shows liquid stool in the vault, no masses felt, stool color reddish Genitourinary: Right femoral hemodialysis Engel seen, MSK/skin: Skin is dry and warm Neurological: Intact gag/pupillary light reflex Pupils are isocoric and reactive. laboratory and microbiology Laboratory Tests 06/22/25 02:45 Test 06/22/25 02:45 Range/Units Serum Glucose 128 H 74-106 mg/dL Microbiology Date/Time Source Procedure Growth Status 06/17/25 07:00 Stool Stool Culture - Final Complete 06/17/25 07:00 Stool Shiga Toxin I & II - Final Complete 06/16/25 10:30 Blood Blood Culture - Final NO GROWTH AFTER 5 DAYS OF INCUBATION. Complete 06/11/25 14:25 Nose MRSA Screen - Final Complete Labs and/or images reviewed: Labs reviewed by me, Image(s) reviewed by me Problem List/Assessment/Plan Problem List/Assessment/Plan NEURO: Intubated, on sedatives CARDIOVASCULAR: Acute on chronic heart failure with preserved ejection fraction exacerbation Paroxysmal Atrial fibrillation with RVR Pulmonary edema Severe aortic insufficiency, mitral valve insufficiency, tricuspid regurg Per Cardiology:patient underwent a transesophageal echocardiogram on 03/26/2025 which revealed an EF of 60% with severe aortic insufficiency and with moderate mitral insufficiency. Continue with Preload and afterload reduction. ([id number]- VASc Score 2 points, HAS-BLED Score 0 points): We will recommend to continue antiarrhythmic therapy with amiodarone, DOAC therapy with Eliquis, and beta- octavio for rate control . Outpatient follow up with Dr. Melo in [place] for aortic valve replacement with possible TAVR as well as possible mitral clip. She has seen muck miner in [place] one time and underwent a EBENEZER. The patient is scheduled to have a right and left heart catheterization later this month for TAVR workup. Discontinued P.o. amlodipine, p.o. Coreg IV amiodarone protocol started 06/14 Discontinued Lasix 40 Discontinued Solu-Medrol Lovenox daily PULMONARY: Acute hypoxic respiratory failure status post intubation 06/11 Hx of Pna and intubation 2022 Sepsis secondary to Acute Gram-positive and Gram-negative pneumonia Likely COPD on 4L home O2 Chronic oxygen dependence History of asthma Discontinued IV doxycycline, added zosyn 06/16, started IV vancomycin and IV meropenem 06/17, added micafungin 06/18 Nebulized treatments GASTROINTESTINAL: Pneumatosis intestinalis and megacolon likely ischemic bowel Perforation and peritonitis Anion gap metabolic acidosis Status s/p laparotomy, subtotal colectomy 06/17, resection of descending colon 06/19, ileocolic anastomosis with protective loop ileostomy, drain placement 06/20 Transaminitis, likely nonalcoholic steatohepatitis liver ultrasound shows hepatic steatosis CT abdomen completed, showed Significant dilation of the colon measuring up to 8 cm with possible pneumatosis intestinalis along the ascending colon versus non dependent air. Evidence of portal venous gas. Imaging findings elevate concern for bowel ischemia of the ascending colon/cecum. Surgeon - strict NPO, NG tube to LIS, wound VAC for midline wound GENITOURINARY: NYASIA secondary to hemodynamically mediated/VMN requiring hemodialysis 06/20 ? Chronic kidney disease Anemia of CKD Kidney ultrasound shows Normal sonographic appearance of the kidneys. No hydronephrosis. 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 Bowel regimen: Lactulose discontinued Code status: Full code LINES/DRAINS/ACCESS: IV access: Right IJ 06/11 Drips: Versed, fentanyl, Levophed Engel catheter DISPOSITION: ICU Patient's status discussed with the patient's spouse at bedside, nurse in which all questions have been answered Critical care time spent more than 61 minutes, including patient care, chart review, and updating the family. Excluding any procedures Case discussed with Dr. Johnson Plan discussed with: Other (Mother, daughter, spouse at bedside) My Orders My Orders Orders - MARCELLO BURDEN Procedure Category Date Status Time Amino Acid PHA 06/22/25 In Process Infusion... W/Sodium 22:00 Tpn Per Pharmacy DEANDRA 06/22/25 In Process 22:00 Comprehensive LAB 06/23/25 Verified Metabolic Panel 04:00 Magnesium LAB 06/23/25 Verified 04:00 Phosphorus LAB 06/23/25 Verified 04:00 Respiratory Misc. RT 06/22/25 Transmitted Order 10:11 Warm Compresses ORDERS 06/22/25 Transmitted 17:48 Dietary Evaluation Review Comments: 1) If patient remains NPO > 7 days, consider EN/TPN to meet at least 75% of estimated daily needs 2) If gut is preferred, consider Nepro @ 25 mL/hr goal rate as tolerated. Flush with 200 mL free H2O Q6H. TF regimen will provide 1080 kcals, 49g Pro, and 1236 mL free H2O per 24 hrs. TF regimen will meet ~ 92% estimated energy needs and 52% estimated protein needs. 3) Advance to 60g CCHO renal cardiac diet when medically feasible, pending ST approval 4) Refer to outpatient RD/CDCES for weight management 5) Follow-up with cardiology, pulmonology, or nephrology 6) Continue to monitor I&O, labs, and skin integrity Expected Outcomes/Goals: 1) patient to receive nutritional support within 7 days of NPO status 2) labs to improve 3) diet to advance 4) f/u in 2-3 days Sepsis reassessment post fluid Capillary Refill: < 3 seconds Date of Service: Jun 22, 2025 Billing Provider: ELZA BENJAMIN MD Common Visit Codes: [id number] CARE 30-74 MIN MARCELLO BURDEN Jun 22, 2025 19:54 ELZA BENJAMIN MD Jun 23, 2025 15:51
[2025-06-22] MEDS: TPN PER PHARMACY IV NR (21:05)
[2025-06-23] VITALS (108 sets, daily range): BP systolic 86–167; BP diastolic 35–75; PULSE 80–141; RESP 18–22; TEMP 98–98.8; O2SAT 96–100
[2025-06-23 04:11] LABS: Alanine Aminotransferase 23 U/L (7-40); Anion Gap 13 (5-15); Carbon Dioxide 28 mmol/L (20-31); Chloride 99 mmol/L (98-107); Hemoglobin 8.3 g/dL (12.2-16.2); Potassium 3.6 mmol/L (3.5-5.1); Sodium 140 mmol/L (136-145)
[2025-06-23 04:12] LABS: BUN/Creatinine Ratio 32.4 (10.0-20.0); Magnesium 2.2 mg/dL (1.6-2.6)
[2025-06-23 04:14] LABS: Bilirubin, Total 0.6 mg/dL (0.2-1.0)
[2025-06-23 04:15] LABS: Hematocrit 25.3 % (36.0-46.0); Mean Corpuscular Hemoglobin 27.6 pg (28.0-32.0); Mean Corpuscular Volume 83.8 fL (80.0-100.0)
[2025-06-23 04:17] LABS: Albumin 2.7 g/dL (3.2-4.8); Alkaline Phosphatase 123 U/L (46-116); Blood Urea Nitrogen 58 mg/dL (9-23); Calcium 8.6 mg/dL (8.7-10.4); Glucose 137 mg/dL (74-106); Total Protein 5.0 g/dL (5.7-8.2)
[2025-06-23 05:48] LABS: Total Cells Counted 100.0 (100)
--- NOTE | 2025-06-23 06:24 | DVH ---
CHEST RADIOGRAPH Indication: Follow up Technique: Single frontal view of the chest was obtained Comparison: Chest radiograph performed on 06/22/2025. FINDINGS: Lines and Tubes: The endotracheal tube terminates 3.6 cm above the donna. The enteric tube courses b elow the left hemidiaphragm and the tip extends outside the field of view. There is a right central v enous catheter with its tip terminating in the superior vena cava. Lungs: Bilateral increased interstitial prominence. Pleura: No effusion. No pneumothorax. Cardiomediastinal contours: Unremarkable Bones: No acute osseous abnormality. IMPRESSION: 1. Support tubes in appropriate position. 2. Increased bilateral interstitial prominence which may reflect pulmonary edema or atypical infectio n.
[2025-06-23 07:21] LABS: Base Excess 2.9 mmol/L (-2.0-3.0)
--- NOTE | 2025-06-23 16:34 | DVHPN2 ---
Progress Note - Surgical Date Seen: Jun 23, 2025 Post op day Post op day: 6 Subjective Patient reports: Other (Intubated and sedated) Review of Systems: Deferred Objective Vital signs Vital Sign Date Time Temp Pulse Resp B/P (MAP) Pulse Ox O2 Delivery O2 Flow Rate FiO2 06/23/25 16:01 141 06/23/25 16:01 20 97 Mechanical Ventilator+ 30 30 06/23/25 16:00 98.0 129/63 (85) 98.0 136/57 (83) Total Intake and Output 06/22/25 06/22/25 06/23/25 15:00 23:00 07:00 Intake Total 467.28 ml 422.28 ml 614.995 ml Output Total 680 ml 1200 ml Balance 467.28 ml -257.72 ml -585.005 ml Medications Current Medications Medications Dose Ordered Sig/Bárbara Route Start Time Stop Time Status Last Admin Dose Admin Ondansetron HCl 4 mg Q4HP PRN IV 06/09/25 01:00 Cancel Acetaminophen 650 mg Q6HP PRN PO 06/09/25 01:00 06/10/25 20:15 650 MG Nitroglycerin 0.4 mg Q5MINP PRN SL 06/09/25 01:00 Propofol 100 ml @ 2.16 mls/hr Q24H IV 06/11/25 12:00 06/21/25 12:23 4.32 MLS/HR Fentanyl Citrate 250 ml @ 2.5 mls/hr Q24H IV 06/11/25 12:00 06/23/25 12:40 17.5 MLS/HR Midazolam HCl 50 ml @ 1 mls/hr Q24H IV 06/11/25 14:45 06/23/25 07:44 2 MLS/HR Ipratropium [place] 0.5 mg Q6HR NEB 06/14/25 10:15 06/23/25 12:00 0.5 MG Levalbuterol HCl 1.25 mg Q6HR NEB 06/15/25 00:00 06/23/25 12:00 1.25 MG Sodium Bicarbonate 75 ml/ Dextrose 1,075 ml @ 700 mls/hr Q1H33M IV 06/16/25 17:15 06/16/25 18:47 Cancel Pantoprazole Sodium 40 mg BID IV 06/17/25 10:00 06/23/25 09:55 40 MG Vancomycin HCl 0 ml @ 0 mls/hr UD IV 06/17/25 11:45 Bumetanide 1 mg BIDD IV 06/17/25 18:00 Cancel Norepinephrine Bitartrate 250 ml @ 3.75 mls/hr Q24H IV 06/17/25 18:30 06/21/25 21:00 3.75 MLS/HR Phenylephrine HCl 250 ml @ 30 mls/hr Q8H20M IV 06/17/25 20:15 Micafungin Sodium 100 mg/Sodium Chloride 100 ml @ 100 mls/hr DAILY IV 06/19/25 10:00 06/23/25 09:55 100 MLS/HR Amino Acids 0 ml @ 0 mls/hr PER PHARMACY IV 06/18/25 12:15 Diagnostic Test (Pha) 1 strip Q6HR 06/19/25 00:00 06/23/25 12:33 1 STRIP Insulin Human Regular FOLLOW SLIDING SCALE Q6HR SC 06/19/25 00:00 06/22/25 17:45 2 UNITS Dextrose 50 ml UD IV 06/18/25 22:00 Amiodarone HCL/ Dextrose 200 ml @ 16.66 mls/ hr Q12H IV 06/20/25 05:00 06/23/25 07:45 16.66 MLS/HR Meropenem 50 ml @ 17 mls/hr DAILY@0100 IV 06/21/25 01:00 Cancel Meropenem 50 ml @ 17 mls/hr Q12HR IV 06/20/25 13:00 06/23/25 09:56 17 MLS/HR Sodium Chloride 40 meq/Sodium Acetate 20 meq/ Potassium Chloride 40 meq/ Potassium Acetate 20 meq/Potassium Phosphate 10 meq/ Magnesium Sulfate 12 meq/ Multivitamins 10 ml/Chromium/ Copper/Manganese/ Zinc 1 ml/Insulin Human Regular 5 units/Amino Acids/ Dextrose 1,116.3227 ml @ 47 mls/hr [id number] IV 06/22/25 22:00 06/23/25 21:59 06/22/25 21:05 47 MLS/HR Sodium Chloride 60 meq/Potassium Chloride 60 meq/ Magnesium Sulfate 10 meq/ Multivitamins 10 ml/Chromium/ Copper/Manganese/ Zinc 1 ml/Insulin Human Regular 7 units/Amino Acids/ Dextrose 1,108.57 ml @ 46 mls/hr Q24H6M IV 06/23/25 22:00 06/24/25 21:59 Laboratory Laboratory Tests 06/23/25 02:55 Test 06/23/25 02:55 Range/Units Serum Glucose 137 H 74-106 mg/dL Microbiology Date/Time Source Procedure Growth Status 06/17/25 07:00 Stool Stool Culture - Final Complete 06/17/25 07:00 Stool Shiga Toxin I & II - Final Complete 06/16/25 10:30 Blood Blood Culture - Final NO GROWTH AFTER 5 DAYS OF INCUBATION. Complete 06/11/25 14:25 Nose MRSA Screen - Final Complete Examination: GENERAL:Normal (Intubated and sedated), HEENT:Abnormal (ETT/OG tube in place), ABDOMEN:Normal (Nondistended, wound VAC in the midline wound, right lower quadrant drain with serosanguineous fluid (minimal, left lower quadrant drain with serosanguineous output approximately 200 mL, right lower quadrant ileostomy with pink mucosa and bowel sweat in bag.) Labs and/or images reviewed: Labs reviewed by me (Leukocytosis holding steady at 16), Image(s) reviewed by me (Bilateral effusions) Problem List/Assessment/Plan Assessment and Plan Mrs. Penaloza is a 54-year-old female who has been in the hospital since June 08 due to pneumonia and CHF exacerbation that resulted in intubation. I was consulted on 06/17 due to sever colonic distention and pneumatosis seen on CT from that day. Pt is currently POD 5 from initial surgery, but required to take backs to the OR. Her surgeries were finalized on 06/20: ileocolic anastomosis was done, a protective loop ileostomy was done, 2 drains were placed, fascia was closed, skin was left opened to close by secondary intention given high risk for SSI. Patient's Levophed requirements have been coming down, still no ileostomy output, just some bowel sweat in the bag. Leukocytosis holding steady at 16. Both drains putting out serosanguineous output. Patient to remain NPO until ileostomy started functioning with NG tube to low intermittent suctioned. Surgeries: 06/17: Exploratory laparotomy, subtotal colectomy (resection of ascending and transverse colon), temporary abdominal closure 06/19: Exploratory laparotomy, takedown of temporary abdominal dressing, wash out, resection of descending colon 06/20: Exploratory laparotomy, takedown of temporary abdominal dressing, washout, ileocolic anastomosis, protective loop ileostomy, drain placement x2, fascial closure 1. Strict NPO 2. NG/OG tube to LIS 3. Wound VAC for midline wound 4. Drain stripping and emptying once per shift and p.r.n. 5. Recommend continuation of TPN 6. Recommend continuation of IV antibiotics for a total of 7 days from the last surgery on 06/20 7. No GI cathartic medications Plan discussed with Plan discussed with: Spouse, Other Visit Coding Surgery Date of Service if different f: Jun 23, 2025 Billing Provider: SONAM ALCARAZ MD Surgery Visit Codes: [id number] INP/OBS CARE(HIGH) SONAM ALCARAZ MD Jun 23, 2025 16:34
[2025-06-23 16:45] LABS: Hemoglobin 8.2 g/dL (12.2-16.2)
[2025-06-23 16:47] LABS: Hematocrit 25.2 % (36.0-46.0)
[2025-06-23] MEDS: VANCOMYCIN 500mg/100mL 100 ML IV ONE (17:20)
--- NOTE | 2025-06-23 17:42 | DVHPNRES ---
Progress Note Date Seen: Jun 23, 2025 Resident Creating Document: MARCELLO BURDEN RESIDENT Medical Necessity Reason Pt with a Central, PICC or Fol: Yes The following are medically ne: Central Line, Engel Catheter Subjective Review of Systems This is a 54-year-old female with recent ESBL bacteriemia, chronic heart failure with preserved ejection fraction, paroxysmal atrial fibrillation, severe aortic and mitral insufficiency, prediabetes, asthma and CKD 3A, morbid obesity, questionable rheumatoid arthritis and Crohn's disease who presented to the ER for the evaluation of shortness of breaths for the past 2 days. Associated with nonproductive cough and swelling at her ankles for the past 2 weeks. She denied fever or chills per chart review. Patient was kept on BiPAP which did not improve her condition and she had increased work of breathing and therefore patient was intubated and mechanically ventilated on 06/11. She has been getting IV diuretics with Lasix, and has been getting treatment for CHF exacerbation and pneumonia. Per , Patient was intubated in 2022 for pneumonia Waterflow, following which she needed oxygen supplementation with 5 L NC. Past medical history:severe aortic insufficiency, moderate MR, moderate TR, COPD on 4 L home oxygen, CKD 3B, questionable rheumatoid arthritis and Crohn's disease Past surgical history: EBENEZER: Back surgery: Hysterectomy Home medication: Patient denies taking biological agents or methotrexate. Eliquis 5 mg p.o. b.i.d., amiodarone 200 mg daily, clonidine 0.1 mg b.i.d., furosemide 40 mg p.o. b.i.d., ibuprofen p.r.n., metoprolol 200 mg b.i.d., rosuvastatin, tizanidine Follow up Dr. Contreras. Overnight afebrile, respiratory rate 24 per minute, on minimal vent settings at 30% FiO2. WBC downtrending from 20 on arrival to 9.5, BUN/creatinine trending up, GFR decreasing. Social history: Quit smoking 20 years, was smoking marijuana till June 2023. Lives with 06/14-Patient seen and examined in ICU. Patient was having AFib with RVR, started IV amiodarone, discontinued p.o. amiodarone. Which improved patient's heart rate. Started Coreg and amlodipine. 06/15 - seen and examined, WBC count increased to 14 from 9. GFR and creatinine improving. Intermittently AFib with RVR, IV amiodarone increased from 0.5-1. CPAP trial failed, low tidal volumes 06/16 - overnight 98.2, wbc inc to 21, cr improving, AGMA, started zosyn, tap water enema. 06/17 - overnight 99.9 F, intermittent tachycardia, abdomen is distended and tender, hypoactive, CT abdomen completed, showed Significant dilation of the colon measuring up to 8 cm with possible pneumatosis intestinalis along the ascending colon versus non dependent air. Evidence of portal venous gas. Imaging findings elevate concern for bowel ischemia of the ascending colon/cecum. Surgeon consulted-recommended surgery, consent signed patient undergoing ex laparotomy. NPO, pantoprazole b.i.d., DC antihypertensives. Lactic acid unremarkable, vanc and meropenem started. Nephrology started D5W bicarb drip. 06/18-overnight patient underwent subtotal colectomy, second-look surgery with possible bowel resection tomorrow 06/19. Pressor requirement decreased from Reuben- Synephrine and Levophed to Levophed. Currently at 4 mcg. Nephrology started Bumex drip 0.5. NG to LIS. Added micafungin today. Continue vanc and meropenem. DC LR. Continue D5 with bicarb. Chest x-ray shows worsening congestion. BUN creatinine trending up. WBC 46. No grimacing on abdominal outpatient today. ABG shows anion gap metabolic acidosis with respiratory compensation. 06/21 - over the weekend, 06/19, hemodialysis catheter placed, arterial line placed. Patient experienced AFib with RVR, IV mg increased to 1 mcg. Underwent hemodialysis 06/20, received 2 packed RBCs. Underwent ileosigmoid anastomosis, and ileostomy. Patient is on Levophed at 6 mcg. Anion gap acidosis resolving, DC bicarb drip. Urine output improving, nephrology-hold hemodialysis. 06/22 - seen and examined, NPO, NG to LIS, urine output 1100 for 24 hours, absent bowel sounds. 06/23 - given distended, hypoactive, stoma red, NPO, NG to LIS draining bilious, abdominal drains draining serosanguineous. hd cath removed, bumex dc'ed. cpap tomorrow Objective vital signs Vital Sign Date Time Temp Pulse Resp B/P (MAP) Pulse Ox O2 Delivery O2 Flow Rate FiO2 06/23/25 16:01 141 06/23/25 16:01 20 97 Mechanical Ventilator+ 30 30 06/23/25 16:00 98.0 129/63 (85) 98.0 136/57 (83) Total Intake and Output 06/22/25 06/22/25 06/23/25 14:59 22:59 06:59 Intake Total 512.28 ml 379.53 ml 697.655 ml Output Total 680 ml 1200 ml Balance 512.28 ml -300.47 ml -502.345 ml medications Current Medications Medications Dose Ordered Sig/Bárbara Route Start Time Stop Time Status Last Admin Dose Admin Ondansetron HCl 4 mg Q4HP PRN IV 06/09/25 01:00 Cancel Acetaminophen 650 mg Q6HP PRN PO 06/09/25 01:00 06/10/25 20:15 650 MG Nitroglycerin 0.4 mg Q5MINP PRN SL 06/09/25 01:00 Propofol 100 ml @ 2.16 mls/hr Q24H IV 06/11/25 12:00 06/21/25 12:23 4.32 MLS/HR Fentanyl Citrate 250 ml @ 2.5 mls/hr Q24H IV 06/11/25 12:00 06/23/25 12:40 17.5 MLS/HR Midazolam HCl 50 ml @ 1 mls/hr Q24H IV 06/11/25 14:45 06/23/25 07:44 2 MLS/HR Ipratropium [place] 0.5 mg Q6HR NEB 06/14/25 10:15 06/23/25 12:00 0.5 MG Levalbuterol HCl 1.25 mg Q6HR NEB 06/15/25 00:00 06/23/25 12:00 1.25 MG Sodium Bicarbonate 75 ml/ Dextrose 1,075 ml @ 700 mls/hr Q1H33M IV 06/16/25 17:15 06/16/25 18:47 Cancel Pantoprazole Sodium 40 mg BID IV 06/17/25 10:00 06/23/25 09:55 40 MG Vancomycin HCl 0 ml @ 0 mls/hr UD IV 06/17/25 11:45 Bumetanide 1 mg BIDD IV 06/17/25 18:00 Cancel Norepinephrine Bitartrate 250 ml @ 3.75 mls/hr Q24H IV 06/17/25 18:30 06/21/25 21:00 3.75 MLS/HR Phenylephrine HCl 250 ml @ 30 mls/hr Q8H20M IV 06/17/25 20:15 Micafungin Sodium 100 mg/Sodium Chloride 100 ml @ 100 mls/hr DAILY IV 06/19/25 10:00 06/23/25 09:55 100 MLS/HR Amino Acids 0 ml @ 0 mls/hr PER PHARMACY IV 06/18/25 12:15 Diagnostic Test (Pha) 1 strip Q6HR 06/19/25 00:00 06/23/25 17:10 1 STRIP Insulin Human Regular FOLLOW SLIDING SCALE Q6HR SC 06/19/25 00:00 06/23/25 17:19 3 UNITS Dextrose 50 ml UD IV 06/18/25 22:00 Amiodarone HCL/ Dextrose 200 ml @ 16.66 mls/ hr Q12H IV 06/20/25 05:00 06/23/25 07:45 16.66 MLS/HR Meropenem 50 ml @ 17 mls/hr DAILY@0100 IV 06/21/25 01:00 Cancel Meropenem 50 ml @ 17 mls/hr Q12HR IV 06/20/25 13:00 06/23/25 09:56 17 MLS/HR Sodium Chloride 40 meq/Sodium Acetate 20 meq/ Potassium Chloride 40 meq/ Potassium Acetate 20 meq/Potassium Phosphate 10 meq/ Magnesium Sulfate 12 meq/ Multivitamins 10 ml/Chromium/ Copper/Manganese/ Zinc 1 ml/Insulin Human Regular 5 units/Amino Acids/ Dextrose 1,116.3227 ml @ 47 mls/hr [id number] IV 06/22/25 22:00 06/23/25 21:59 06/22/25 21:05 47 MLS/HR Sodium Chloride 60 meq/Potassium Chloride 60 meq/ Magnesium Sulfate 10 meq/ Multivitamins 10 ml/Chromium/ Copper/Manganese/ Zinc 1 ml/Insulin Human Regular 7 units/Amino Acids/ Dextrose 1,108.57 ml @ 46 mls/hr Q24H6M IV 06/23/25 22:00 06/24/25 21:59 Examination Morbidly obese female patient lying in the bed intubated and mechanically ventilated, RASS -3 General: Morbidly obese, afebrile, palor, mucosae are moist. Generalized anasarca. Cardiovascular: Tachycardic and irregular S1 and S2. No murmurs, gallops or rubs. No JVD elevation. 1+ pitting edema bilaterally Respiratory: Decreased bilateral air entry, coarse crackles bilateral lower lobe Abdomen: Drains attached to abdomen, non grimacing, nondistended, hypoactive bowel sounds, ileostomy with no output, stoma red. Rectal exam completed, shows liquid stool in the vault, no masses felt, stool color reddish Genitourinary: DC Right femoral hemodialysis, Engel seen, MSK/skin: Skin is dry and warm Neurological: Intact gag/pupillary light reflex Pupils are isocoric and reactive. laboratory and microbiology Laboratory Tests 06/23/25 16:30 06/23/25 02:55 Test 06/23/25 02:55 Range/Units Serum Glucose 137 H 74-106 mg/dL Microbiology Date/Time Source Procedure Growth Status 06/17/25 07:00 Stool Stool Culture - Final Complete 06/17/25 07:00 Stool Shiga Toxin I & II - Final Complete 06/16/25 10:30 Blood Blood Culture - Final NO GROWTH AFTER 5 DAYS OF INCUBATION. Complete 06/11/25 14:25 Nose MRSA Screen - Final Complete Labs and/or images reviewed: Labs reviewed by me, Image(s) reviewed by me Problem List/Assessment/Plan Problem List/Assessment/Plan NEURO: Intubated, on sedatives CARDIOVASCULAR: Acute on chronic heart failure with preserved ejection fraction exacerbation Paroxysmal Atrial fibrillation with RVR Pulmonary edema Severe aortic insufficiency, mitral valve insufficiency, tricuspid regurg Per Cardiology:patient underwent a transesophageal echocardiogram on 03/26/2025 which revealed an EF of 60% with severe aortic insufficiency and with moderate mitral insufficiency. Continue with Preload and afterload reduction. ([id number]- VASc Score 2 points, HAS-BLED Score 0 points): We will recommend to continue antiarrhythmic therapy with amiodarone, DOAC therapy with Eliquis, and beta- octavio for rate control . Outpatient follow up with Dr. Melo in [place] for aortic valve replacement with possible TAVR as well as possible mitral clip. 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 The patient is scheduled to have a right and left heart catheterization later this month for TAVR workup. Discontinued P.o. amlodipine, p.o. Coreg IV amiodarone protocol started 06/14 Discontinued Lasix 40 Discontinued Solu-Medrol Lovenox daily PULMONARY: Acute hypoxic respiratory failure status post intubation 06/11 Hx of Pna and intubation 2022 Sepsis secondary to Acute Gram-positive and Gram-negative pneumonia Likely COPD on 4L home O2 Chronic oxygen dependence History of asthma Discontinued IV doxycycline, added zosyn 06/16, started IV vancomycin and IV meropenem 06/17, added micafungin 06/18 Nebulized treatments GASTROINTESTINAL: Pneumatosis intestinalis and megacolon likely ischemic bowel Perforation and peritonitis Anion gap metabolic acidosis Status s/p laparotomy, subtotal colectomy 06/17, resection of descending colon 06/19, ileocolic anastomosis with protective loop ileostomy, drain placement 06/20 Transaminitis, likely nonalcoholic steatohepatitis liver ultrasound shows hepatic steatosis CT abdomen completed, showed Significant dilation of the colon measuring up to 8 cm with possible pneumatosis intestinalis along the ascending colon versus non dependent air. Evidence of portal venous gas. Imaging findings elevate concern for bowel ischemia of the ascending colon/cecum. Surgeon - strict NPO, NG tube to LIS, wound VAC for midline wound GENITOURINARY: NYASIA secondary to hemodynamically mediated/VMN requiring hemodialysis 06/20 ? Chronic kidney disease Anemia of CKD Kidney ultrasound shows Normal sonographic appearance of the kidneys. No hydronephrosis. 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 Bowel regimen: Lactulose discontinued Code status: Full code LINES/DRAINS/ACCESS: IV access: Right IJ 06/11 Drips: Versed, fentanyl, Levophed Engel catheter DISPOSITION: ICU Patient's status discussed with the patient's spouse at bedside, nurse in which all questions have been answered Critical care time spent more than 61 minutes, including patient care, chart review, and updating the family. Excluding any procedures Case discussed with Dr. Benjamin Plan discussed with: Spouse My Orders My Orders Orders - MARCELLO BURDEN Procedure Category Date Status Time Warm Compresses ORDERS 06/22/25 Transmitted 17:48 Chest Xray 1 View XY 06/23/25 Resulted 04:00 Abg W/ Co-Ox RT 06/23/25 Logged 05:40 Amino Acid PHA 06/23/25 In Process Infusion... W/Sodium 22:00 Comprehensive LAB 06/24/25 Verified Metabolic Panel 04:00 Magnesium LAB 06/24/25 Verified 04:00 Phosphorus LAB 06/24/25 Verified 04:00 Tpn Per Pharmacy DEANDRA 06/23/25 In Process 22:00 Dietary Evaluation Review Comments: 1) If patient remains NPO > 7 days, consider EN/TPN to meet at least 75% of estimated daily needs 2) If gut is preferred, consider Nepro @ 25 mL/hr goal rate as tolerated. Flush with 200 mL free H2O Q6H. TF regimen will provide 1080 kcals, 49g Pro, and 1236 mL free H2O per 24 hrs. TF regimen will meet ~ 92% estimated energy needs and 52% estimated protein needs. 3) Advance to 60g CCHO renal cardiac diet when medically feasible, pending ST approval 4) Refer to outpatient RD/CDCES for weight management 5) Follow-up with cardiology, pulmonology, or nephrology 6) Continue to monitor I&O, labs, and skin integrity Expected Outcomes/Goals: 1) patient to receive nutritional support within 7 days of NPO status 2) labs to improve 3) diet to advance 4) f/u in 2-3 days Sepsis reassessment post fluid Capillary Refill: < 3 seconds Date of Service: Jun 23, 2025 Billing Provider: ELZA BENJAMIN MD Common Visit Codes: 87108-FDQAQFLW CARE 30-74 MIN MARCELLO BURDEN Jun 23, 2025 17:42 ELZA BENJAMIN MD Jun 24, 2025 12:30
[2025-06-23] MEDS ORDERED: ENOXAPARIN SOD 100 MG/1 ML SYRINGE SC ONE (18:15)
[2025-06-23] MEDS: ENOXAPARIN SOD 100 MG/1 ML SYRINGE SC SCH (18:19)
--- NOTE | 2025-06-23 18:48 | DVHPN2 ---
Progress Note - Dictate Date Seen: Jun 22, 2025 Medical Necessity Reason Pt with a Central, PICC or Fol: Yes The following are medically ne: Central Line, Engel Catheter Subjective Patient was seen and evaluated in follow up in the ICU. Patient is intubated and sedated on ventilator. 30% FiO2. Patient receiving vasopressors for hemodynamic support. Patient underwent exploratory laparotomy, ascending colon and transverse colons resection with temporary abdominal closure. WBC 16.1, HGB 8.5, HCT 25.4, K 3.4, BUN 47, Account Services Specialist 16.2. Chest x-ray shows stable mild diffuse increased prominence of the pulmonary vasculature. LUE Venous Duplex: no deep venous thrombus identified in the LEFT upper extremity vessels. Thrombus is present in the cephalic vein. vital signs Vital Sign Date Time Temp Pulse Resp B/P (MAP) Pulse Ox O2 Delivery O2 Flow Rate FiO2 06/23/25 18:22 30 06/23/25 18:22 20 96 Mechanical Ventilator+ 06/23/25 18:22 119 06/23/25 18:15 117/49 (71) 06/23/25 16:00 98.0 98.0 Total Intake and Output 06/22/25 06/22/25 06/23/25 15:00 23:00 07:00 Intake Total 467.28 ml 422.28 ml 685.245 ml Output Total 680 ml 1200 ml Balance 467.28 ml -257.72 ml -514.755 ml medications Current Medications Medications Dose Ordered Sig/Bárbara Route Start Time Stop Time Status Last Admin Dose Admin Ondansetron HCl 4 mg Q4HP PRN IV 06/09/25 01:00 Cancel Acetaminophen 650 mg Q6HP PRN PO 06/09/25 01:00 06/10/25 20:15 650 MG Nitroglycerin 0.4 mg Q5MINP PRN SL 06/09/25 01:00 Propofol 100 ml @ 2.16 mls/hr Q24H IV 06/11/25 12:00 06/21/25 12:23 4.32 MLS/HR Fentanyl Citrate 250 ml @ 2.5 mls/hr Q24H IV 06/11/25 12:00 06/23/25 12:40 17.5 MLS/HR Midazolam HCl 50 ml @ 1 mls/hr Q24H IV 06/11/25 14:45 06/23/25 07:44 2 MLS/HR Ipratropium [place] 0.5 mg Q6HR NEB 06/14/25 10:15 06/23/25 18:28 0.5 MG Levalbuterol HCl 1.25 mg Q6HR NEB 06/15/25 00:00 06/23/25 18:28 1.25 MG Sodium Bicarbonate 75 ml/ Dextrose 1,075 ml @ 700 mls/hr Q1H33M IV 06/16/25 17:15 06/16/25 18:47 Cancel Pantoprazole Sodium 40 mg BID IV 06/17/25 10:00 06/23/25 09:55 40 MG Vancomycin HCl 0 ml @ 0 mls/hr UD IV 06/17/25 11:45 Bumetanide 1 mg BIDD IV 06/17/25 18:00 Cancel Norepinephrine Bitartrate 250 ml @ 3.75 mls/hr Q24H IV 06/17/25 18:30 06/21/25 21:00 3.75 MLS/HR Phenylephrine HCl 250 ml @ 30 mls/hr Q8H20M IV 06/17/25 20:15 Micafungin Sodium 100 mg/Sodium Chloride 100 ml @ 100 mls/hr DAILY IV 06/19/25 10:00 06/23/25 09:55 100 MLS/HR Amino Acids 0 ml @ 0 mls/hr PER PHARMACY IV 06/18/25 12:15 Diagnostic Test (Pha) 1 strip Q6HR 06/19/25 00:00 06/23/25 17:10 1 STRIP Insulin Human Regular FOLLOW SLIDING SCALE Q6HR SC 06/19/25 00:00 06/23/25 17:19 3 UNITS Dextrose 50 ml UD IV 06/18/25 22:00 Amiodarone HCL/ Dextrose 200 ml @ 16.66 mls/ hr Q12H IV 06/20/25 05:00 06/23/25 07:45 16.66 MLS/HR Meropenem 50 ml @ 17 mls/hr DAILY@0100 IV 06/21/25 01:00 Cancel Meropenem 50 ml @ 17 mls/hr Q12HR IV 06/20/25 13:00 06/23/25 09:56 17 MLS/HR Sodium Chloride 40 meq/Sodium Acetate 20 meq/ Potassium Chloride 40 meq/ Potassium Acetate 20 meq/Potassium Phosphate 10 meq/ Magnesium Sulfate 12 meq/ Multivitamins 10 ml/Chromium/ Copper/Manganese/ Zinc 1 ml/Insulin Human Regular 5 units/Amino Acids/ Dextrose 1,116.3227 ml @ 47 mls/hr [id number] IV 06/22/25 22:00 06/23/25 21:59 06/22/25 21:05 47 MLS/HR Sodium Chloride 60 meq/Potassium Chloride 60 meq/ Magnesium Sulfate 10 meq/ Multivitamins 10 ml/Chromium/ Copper/Manganese/ Zinc 1 ml/Insulin Human Regular 7 units/Amino Acids/ Dextrose 1,108.57 ml @ 46 mls/hr Q24H6M IV 06/23/25 22:00 06/24/25 21:59 Enoxaparin Sodium 90 mg DAILY@1800 SC 06/23/25 18:19 objective GENERAL: Ill appearing, intubated on ventilator. EYES: PERRL, EOMI. Anicteric. HENT: Moist mucous membranes. LUNGS: Decreased breath sounds. CARDIOVASCULAR: Regular rate and rhythm. ABDOMEN: Soft, nontender and nondistended. EXTREMITIES: No edema. NEUROLOGIC: No focal neurological deficits. SKIN: Warm, dry. laboratory and microbiology Laboratory Tests 06/23/25 16:30 06/23/25 02:55 Test 06/23/25 02:55 Range/Units Serum Glucose 137 H 74-106 mg/dL Problem List Chronic HFpEF, NYHA class IV. Paroxysmal atrial fibrillation, stage III, now NSR (on amiodarone/Elqiuis therapy). Severe aortic valve and mitral valve insufficiency. Acute hypoxic respiratory failure. Asthma. Chronic kidney disease. Thyroid disease. Prediabetes, newly diagnosed. Morbid obesity. History of tobacco use. Assessment/Plan Continued all current supportive medical care. IV Amiodarone. IV antibiotics as ordered. Nebulized breathing treatments. Additional plan as per the hospital course. Critical care time of 45 minutes provided to include time spent evaluation of patient at bedside, when appropriate patient/family education for diagnosis, treatment plan, review of pertinent medical information and discussion of care with specialty providers and PCP. Mechanical ventilator parameters, treatment and adjustments have personally been reviewed by me and treatment plan by internal medicine physician assistant has also been reviewed. Dietary Evaluation Review Comments: 1) If patient remains NPO > 7 days, consider EN/TPN to meet at least 75% of estimated daily needs 2) If gut is preferred, consider Nepro @ 25 mL/hr goal rate as tolerated. Flush with 200 mL free H2O Q6H. TF regimen will provide 1080 kcals, 49g Pro, and 1236 mL free H2O per 24 hrs. TF regimen will meet ~ 92% estimated energy needs and 52% estimated protein needs. 3) Advance to 60g CCHO renal cardiac diet when medically feasible, pending ST approval 4) Refer to outpatient RD/CDCES for weight management 5) Follow-up with cardiology, pulmonology, or nephrology 6) Continue to monitor I&O, labs, and skin integrity Expected Outcomes/Goals: 1) patient to receive nutritional support within 7 days of NPO status 2) labs to improve 3) diet to advance 4) f/u in 2-3 days Plan discussed with: Other Capillary Refill: < 3 seconds URBANO TRUONG MD Jun 23, 2025 18:48
--- NOTE | 2025-06-23 18:59 | DVHPN2 ---
Progress Note Date Seen: Jun 23, 2025 Medical Necessity Reason Pt with a Central, PICC or Fol: Yes The following are medically ne: Central Line, Engel Catheter Subjective Patient reports: Other (Patient remains intubated) Review of Systems: Deferred Objective vital signs Vital Sign Date Time Temp Pulse Resp B/P (MAP) Pulse Ox O2 Delivery O2 Flow Rate FiO2 06/23/25 18:22 30 06/23/25 18:22 20 96 Mechanical Ventilator+ 06/23/25 18:22 119 06/23/25 18:15 117/49 (71) 06/23/25 16:00 98.0 98.0 Total Intake and Output 06/22/25 06/22/25 06/23/25 15:00 23:00 07:00 Intake Total 467.28 ml 422.28 ml 685.245 ml Output Total 680 ml 1200 ml Balance 467.28 ml -257.72 ml -514.755 ml medications Current Medications Medications Dose Ordered Sig/Bárbara Route Start Time Stop Time Status Last Admin Dose Admin Ondansetron HCl 4 mg Q4HP PRN IV 06/09/25 01:00 Cancel Acetaminophen 650 mg Q6HP PRN PO 06/09/25 01:00 06/10/25 20:15 650 MG Nitroglycerin 0.4 mg Q5MINP PRN SL 06/09/25 01:00 Propofol 100 ml @ 2.16 mls/hr Q24H IV 06/11/25 12:00 06/21/25 12:23 4.32 MLS/HR Fentanyl Citrate 250 ml @ 2.5 mls/hr Q24H IV 06/11/25 12:00 06/23/25 12:40 17.5 MLS/HR Midazolam HCl 50 ml @ 1 mls/hr Q24H IV 06/11/25 14:45 06/23/25 07:44 2 MLS/HR Ipratropium [place] 0.5 mg Q6HR NEB 06/14/25 10:15 06/23/25 18:28 0.5 MG Levalbuterol HCl 1.25 mg Q6HR NEB 06/15/25 00:00 06/23/25 18:28 1.25 MG Sodium Bicarbonate 75 ml/ Dextrose 1,075 ml @ 700 mls/hr Q1H33M IV 06/16/25 17:15 06/16/25 18:47 Cancel Pantoprazole Sodium 40 mg BID IV 06/17/25 10:00 06/23/25 09:55 40 MG Vancomycin HCl 0 ml @ 0 mls/hr UD IV 06/17/25 11:45 Bumetanide 1 mg BIDD IV 06/17/25 18:00 Cancel Norepinephrine Bitartrate 250 ml @ 3.75 mls/hr Q24H IV 06/17/25 18:30 06/21/25 21:00 3.75 MLS/HR Phenylephrine HCl 250 ml @ 30 mls/hr Q8H20M IV 06/17/25 20:15 Micafungin Sodium 100 mg/Sodium Chloride 100 ml @ 100 mls/hr DAILY IV 06/19/25 10:00 06/23/25 09:55 100 MLS/HR Amino Acids 0 ml @ 0 mls/hr PER PHARMACY IV 06/18/25 12:15 Diagnostic Test (Pha) 1 strip Q6HR 06/19/25 00:00 06/23/25 17:10 1 STRIP Insulin Human Regular FOLLOW SLIDING SCALE Q6HR SC 06/19/25 00:00 06/23/25 17:19 3 UNITS Dextrose 50 ml UD IV 06/18/25 22:00 Amiodarone HCL/ Dextrose 200 ml @ 16.66 mls/ hr Q12H IV 06/20/25 05:00 06/23/25 07:45 16.66 MLS/HR Meropenem 50 ml @ 17 mls/hr DAILY@0100 IV 06/21/25 01:00 Cancel Meropenem 50 ml @ 17 mls/hr Q12HR IV 06/20/25 13:00 06/23/25 09:56 17 MLS/HR Sodium Chloride 40 meq/Sodium Acetate 20 meq/ Potassium Chloride 40 meq/ Potassium Acetate 20 meq/Potassium Phosphate 10 meq/ Magnesium Sulfate 12 meq/ Multivitamins 10 ml/Chromium/ Copper/Manganese/ Zinc 1 ml/Insulin Human Regular 5 units/Amino Acids/ Dextrose 1,116.3227 ml @ 47 mls/hr [id number] IV 06/22/25 22:00 06/23/25 21:59 06/22/25 21:05 47 MLS/HR Sodium Chloride 60 meq/Potassium Chloride 60 meq/ Magnesium Sulfate 10 meq/ Multivitamins 10 ml/Chromium/ Copper/Manganese/ Zinc 1 ml/Insulin Human Regular 7 units/Amino Acids/ Dextrose 1,108.57 ml @ 46 mls/hr Q24H6M IV 06/23/25 22:00 06/24/25 21:59 Enoxaparin Sodium 90 mg DAILY@1800 SC 06/23/25 18:19 Examination: GENERAL:Abnormal, LUNGS:Abnormal, MSK:Abnormal, NEURO:Abnormal laboratory and microbiology Laboratory Tests 06/23/25 16:30 06/23/25 02:55 Test 06/23/25 02:55 Range/Units Serum Glucose 137 H 74-106 mg/dL Microbiology Date/Time Source Procedure Growth Status 06/17/25 07:00 Stool Stool Culture - Final Complete 06/17/25 07:00 Stool Shiga Toxin I & II - Final Complete 06/16/25 10:30 Blood Blood Culture - Final NO GROWTH AFTER 5 DAYS OF INCUBATION. Complete 06/11/25 14:25 Nose MRSA Screen - Final Complete Problem List/Assessment/Plan Problem List/Assessment/Plan Acute kidney injury on chronic kidney disease stage IIIA secondary to hemodynamic mediated, FeNa > 2% status post intermittent HD 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 Currently on vasopressors Diuretics IV pushes as ordered Plan discussed with: Other My Orders My Orders Orders - ANGELICA NASH MD Procedure Category Date Status Time Communication Order ORDERS 06/23/25 Transmitted 09:33 Dietary Evaluation Review Comments: 1) If patient remains NPO > 7 days, consider EN/TPN to meet at least 75% of estimated daily needs 2) If gut is preferred, consider Nepro @ 25 mL/hr goal rate as tolerated. Flush with 200 mL free H2O Q6H. TF regimen will provide 1080 kcals, 49g Pro, and 1236 mL free H2O per 24 hrs. TF regimen will meet ~ 92% estimated energy needs and 52% estimated protein needs. 3) Advance to 60g CCHO renal cardiac diet when medically feasible, pending ST approval 4) Refer to outpatient RD/CDCES for weight management 5) Follow-up with cardiology, pulmonology, or nephrology 6) Continue to monitor I&O, labs, and skin integrity Expected Outcomes/Goals: 1) patient to receive nutritional support within 7 days of NPO status 2) labs to improve 3) diet to advance 4) f/u in 2-3 days Sepsis reassessment post fluid Capillary Refill: < 3 seconds ANGELICA NASH MD Jun 23, 2025 18:59
[2025-06-23] MEDS: TPN PER PHARMACY IV NR (21:58)
--- NOTE | 2025-06-23 23:40 | DVHPN2 ---
Progress Note - Dictate Date Seen: Jun 23, 2025 Medical Necessity Reason Pt with a Central, PICC or Fol: Yes The following are medically ne: Central Line, Engel Catheter Subjective Patient was seen and evaluated in follow up in the ICU. Patient is intubated and sedated on ventilator. 30% FiO2. WBC 16.1, HGB 8.2, HCT 25.2, BUN 58, POWER SWEEPER OPERATOR 1.79, CA 8.6, AST 43. Chest x-ray showed increased bilateral interstitial prominence which may reflect pulmonary edema or atypical infection. vital signs Vital Sign Date Time Temp Pulse Resp B/P (MAP) Pulse Ox O2 Delivery O2 Flow Rate FiO2 06/23/25 19:15 118 22 95/36 (55) 96 06/23/25 18:28 30 06/23/25 18:22 Mechanical Ventilator+ 06/23/25 16:00 98.0 98.0 Total Intake and Output 06/22/25 06/22/25 06/23/25 15:00 23:00 07:00 Intake Total 467.28 ml 422.28 ml 685.245 ml Output Total 680 ml 1200 ml Balance 467.28 ml -257.72 ml -514.755 ml medications Current Medications Medications Dose Ordered Sig/Bárbara Route Start Time Stop Time Status Last Admin Dose Admin Ondansetron HCl 4 mg Q4HP PRN IV 06/09/25 01:00 Cancel Acetaminophen 650 mg Q6HP PRN PO 06/09/25 01:00 06/10/25 20:15 650 MG Nitroglycerin 0.4 mg Q5MINP PRN SL 06/09/25 01:00 Propofol 100 ml @ 2.16 mls/hr Q24H IV 06/11/25 12:00 06/21/25 12:23 4.32 MLS/HR Fentanyl Citrate 250 ml @ 2.5 mls/hr Q24H IV 06/11/25 12:00 06/23/25 12:40 17.5 MLS/HR Midazolam HCl 50 ml @ 1 mls/hr Q24H IV 06/11/25 14:45 06/23/25 07:44 2 MLS/HR Ipratropium [place] 0.5 mg Q6HR NEB 06/14/25 10:15 06/23/25 18:28 0.5 MG Levalbuterol HCl 1.25 mg Q6HR NEB 06/15/25 00:00 06/23/25 18:28 1.25 MG Sodium Bicarbonate 75 ml/ Dextrose 1,075 ml @ 700 mls/hr Q1H33M IV 06/16/25 17:15 06/16/25 18:47 Cancel Pantoprazole Sodium 40 mg BID IV 06/17/25 10:00 06/23/25 09:55 40 MG Vancomycin HCl 0 ml @ 0 mls/hr UD IV 06/17/25 11:45 Bumetanide 1 mg BIDD IV 06/17/25 18:00 Cancel Norepinephrine Bitartrate 250 ml @ 3.75 mls/hr Q24H IV 06/17/25 18:30 06/21/25 21:00 3.75 MLS/HR Phenylephrine HCl 250 ml @ 30 mls/hr Q8H20M IV 06/17/25 20:15 Micafungin Sodium 100 mg/Sodium Chloride 100 ml @ 100 mls/hr DAILY IV 06/19/25 10:00 06/23/25 09:55 100 MLS/HR Amino Acids 0 ml @ 0 mls/hr PER PHARMACY IV 06/18/25 12:15 Diagnostic Test (Pha) 1 strip Q6HR 06/19/25 00:00 06/23/25 17:10 1 STRIP Insulin Human Regular FOLLOW SLIDING SCALE Q6HR SC 06/19/25 00:00 06/23/25 17:19 3 UNITS Dextrose 50 ml UD IV 06/18/25 22:00 Amiodarone HCL/ Dextrose 200 ml @ 16.66 mls/ hr Q12H IV 06/20/25 05:00 06/23/25 07:45 16.66 MLS/HR Meropenem 50 ml @ 17 mls/hr DAILY@0100 IV 06/21/25 01:00 Cancel Meropenem 50 ml @ 17 mls/hr Q12HR IV 06/20/25 13:00 06/23/25 09:56 17 MLS/HR Sodium Chloride 40 meq/Sodium Acetate 20 meq/ Potassium Chloride 40 meq/ Potassium Acetate 20 meq/Potassium Phosphate 10 meq/ Magnesium Sulfate 12 meq/ Multivitamins 10 ml/Chromium/ Copper/Manganese/ Zinc 1 ml/Insulin Human Regular 5 units/Amino Acids/ Dextrose 1,116.3227 ml @ 47 mls/hr [id number] IV 06/22/25 22:00 06/23/25 21:59 06/22/25 21:05 47 MLS/HR Sodium Chloride 60 meq/Potassium Chloride 60 meq/ Magnesium Sulfate 10 meq/ Multivitamins 10 ml/Chromium/ Copper/Manganese/ Zinc 1 ml/Insulin Human Regular 7 units/Amino Acids/ Dextrose 1,108.57 ml @ 46 mls/hr Q24H6M IV 06/23/25 22:00 06/24/25 21:59 Enoxaparin Sodium 90 mg DAILY@1800 SC 06/23/25 18:19 Furosemide 40 mg DAILY IV 06/24/25 10:00 objective GENERAL: Ill appearing, intubated on ventilator. EYES: PERRL, EOMI. Anicteric. HENT: Moist mucous membranes. LUNGS: Decreased breath sounds. CARDIOVASCULAR: Regular rate and rhythm. ABDOMEN: Soft, nontender and nondistended. EXTREMITIES: No edema. NEUROLOGIC: No focal neurological deficits. SKIN: Warm, dry. laboratory and microbiology Laboratory Tests 06/23/25 16:30 06/23/25 02:55 Test 06/23/25 02:55 Range/Units Serum Glucose 137 H 74-106 mg/dL Problem List Chronic HFpEF, NYHA class IV. Paroxysmal atrial fibrillation, stage III, now NSR (on amiodarone/Elqiuis therapy). Severe aortic valve and mitral valve insufficiency. Acute hypoxic respiratory failure. Asthma. Chronic kidney disease. Thyroid disease. Prediabetes, newly diagnosed. Morbid obesity. History of tobacco use. Assessment/Plan Continued all current supportive medical care. IV Amiodarone. Diuretics with Lasix. IV antibiotics as ordered. GI prophylactics. Nebulized breathing treatments. Additional plan as per the hospital course. Critical care time of 45 minutes provided to include time spent evaluation of patient at bedside, when appropriate patient/family education for diagnosis, treatment plan, review of pertinent medical information and discussion of care with specialty providers and PCP. Mechanical ventilator parameters, treatment and adjustments have personally been reviewed by me and treatment plan by procurement assistant has also been reviewed. Dietary Evaluation Review Comments: 1) If patient remains NPO > 7 days, consider EN/TPN to meet at least 75% of estimated daily needs 2) If gut is preferred, consider Nepro @ 25 mL/hr goal rate as tolerated. Flush with 200 mL free H2O Q6H. TF regimen will provide 1080 kcals, 49g Pro, and 1236 mL free H2O per 24 hrs. TF regimen will meet ~ 92% estimated energy needs and 52% estimated protein needs. 3) Advance to 60g CCHO renal cardiac diet when medically feasible, pending ST approval 4) Refer to outpatient RD/CD[facility] for weight management 5) Follow-up with cardiology, pulmonology, or nephrology 6) Continue to monitor I&O, labs, and skin integrity Expected Outcomes/Goals: 1) patient to receive nutritional support within 7 days of NPO status 2) labs to improve 3) diet to advance 4) f/u in 2-3 days Plan discussed with: Other Capillary Refill: < 3 seconds URBANO TRUONG MD Jun 23, 2025 20:03
[2025-06-24] VITALS (107 sets, daily range): BP systolic 103–188; BP diastolic 37–101; PULSE 93–138; RESP 17–24; TEMP 98.2–98.6; O2SAT 95–100
[2025-06-24 03:54] LABS: Hemoglobin 8.1 g/dL (12.2-16.2)
[2025-06-24 03:58] LABS: Hematocrit 24.4 % (36.0-46.0); Mean Corpuscular Hemoglobin 28.1 pg (28.0-32.0); Mean Corpuscular Volume 84.6 fL (80.0-100.0)
[2025-06-24 04:00] LABS: Alanine Aminotransferase 20 U/L (7-40); Alkaline Phosphatase 113 U/L (46-116); Anion Gap 13 (5-15); BUN/Creatinine Ratio 38.8 (10.0-20.0); Bilirubin, Total 0.4 mg/dL (0.2-1.0); Carbon Dioxide 28 mmol/L (20-31); Chloride 101 mmol/L (98-107); Magnesium 2.1 mg/dL (1.6-2.6); Sodium 142 mmol/L (136-145)
[2025-06-24 04:09] LABS: Albumin 2.5 g/dL (3.2-4.8); Blood Urea Nitrogen 71 mg/dL (9-23); Calcium 8.5 mg/dL (8.7-10.4); Glucose 127 mg/dL (74-106); Potassium 3.4 mmol/L (3.5-5.1); Total Protein 4.8 g/dL (5.7-8.2)
[2025-06-24 05:15] LABS: Total Cells Counted 100.0 (100)
--- NOTE | 2025-06-24 06:39 | DVH ---
CHEST RADIOGRAPH Indication: Follow up Technique: Single frontal view of the chest was obtained COMPARISON: XY CHEST XRAY 1 VIEW on DOS: 06/23/25, XY CHEST XRAY 1 VIEW on DOS: 06/22/25, XY CHEST PORT ABLE on DOS: 06/21/25, XY CHEST PORTABLE on DOS: 06/20/25, XY CHEST XRAY 1 VIEW on DOS: 06/19/25 FINDINGS: Lines and Tubes: Interval advancement of the endotracheal tube such that the tip now projects approxi mately 1.5 cm above the level of the donna. Remaining lines and tubes unchanged. Lungs: Clear Pleura: No effusion. No pneumothorax. Cardiomediastinal contours: Cardiomegaly. Bones: Unremarkable IMPRESSION: 1. Interval advancement of the endotracheal tube such that the tip now projects approximately 1.5 cm above the level of the donna. Remaining lines and tubes unchanged. 2. Cardiomegaly.
[2025-06-24 07:42] LABS: Base Excess 1.0 mmol/L (-2.0-3.0)
[2025-06-24] MEDS: FUROSEMIDE 40 MG/4 ML VIAL IV SCH (08:04)
[2025-06-24] MEDS ORDERED: POTASSIUM CHL 20MEQ/100ML 100 ML IV ONE (09:15)
[2025-06-24] MEDS: ENOXAPARIN SOD 100 MG/1 ML SYRINGE SC SCH (09:22)
[2025-06-24] MEDS: POTASSIUM CHL 20MEQ/100ML 100 ML IV SCH (09:40)
--- NOTE | 2025-06-24 12:34 | DVHPN2 ---
Progress Note - Surgical Date Seen: Jun 24, 2025 Post op day Post op day: 6 Subjective Patient reports: No new complaints (Patient is intubated, afebrile with with some runs of tachycardia.) Review of Systems: Deferred Objective Vital signs Vital Sign Date Time Temp Pulse Resp B/P (MAP) Pulse Ox O2 Delivery O2 Flow Rate FiO2 06/24/25 12:15 102 21 142/60 (87) 100 06/24/25 12:07 30 06/24/25 12:00 Mechanical Ventilator+ 06/24/25 08:00 98.3 98.3 Total Intake and Output 06/23/25 06/23/25 06/24/25 15:00 23:00 07:00 Intake Total 720.96 ml 701.1027 ml 628.28 ml Output Total 1140 ml 970 ml Balance 720.96 ml -438.8973 ml -341.72 ml Medications Current Medications Medications Dose Ordered Sig/Bárbara Route Start Time Stop Time Status Last Admin Dose Admin Ondansetron HCl 4 mg Q4HP PRN IV 06/09/25 01:00 Cancel Acetaminophen 650 mg Q6HP PRN PO 06/09/25 01:00 06/10/25 20:15 650 MG Nitroglycerin 0.4 mg Q5MINP PRN SL 06/09/25 01:00 Propofol 100 ml @ 2.16 mls/hr Q24H IV 06/11/25 12:00 06/21/25 12:23 4.32 MLS/HR Fentanyl Citrate 250 ml @ 2.5 mls/hr Q24H IV 06/11/25 12:00 06/24/25 05:10 10 MLS/HR Midazolam HCl 50 ml @ 1 mls/hr Q24H IV 06/11/25 14:45 06/23/25 07:44 2 MLS/HR Ipratropium [place] 0.5 mg Q6HR NEB 06/14/25 10:15 06/24/25 12:07 0.5 MG Levalbuterol HCl 1.25 mg Q6HR NEB 06/15/25 00:00 06/24/25 12:07 1.25 MG Sodium Bicarbonate 75 ml/ Dextrose 1,075 ml @ 700 mls/hr Q1H33M IV 06/16/25 17:15 06/16/25 18:47 Cancel Pantoprazole Sodium 40 mg BID IV 06/17/25 10:00 06/24/25 08:03 40 MG Vancomycin HCl 0 ml @ 0 mls/hr UD IV 06/17/25 11:45 Bumetanide 1 mg BIDD IV 06/17/25 18:00 Cancel Norepinephrine Bitartrate 250 ml @ 3.75 mls/hr Q24H IV 06/17/25 18:30 06/21/25 21:00 3.75 MLS/HR Phenylephrine HCl 250 ml @ 30 mls/hr Q8H20M IV 06/17/25 20:15 Micafungin Sodium 100 mg/Sodium Chloride 100 ml @ 100 mls/hr DAILY IV 06/19/25 10:00 06/24/25 08:07 100 MLS/HR Amino Acids 0 ml @ 0 mls/hr PER PHARMACY IV 06/18/25 12:15 Diagnostic Test (Pha) 1 strip Q6HR 06/19/25 00:00 06/24/25 11:57 1 STRIP Insulin Human Regular FOLLOW SLIDING SCALE Q6HR SC 06/19/25 00:00 06/24/25 00:12 2 UNITS Dextrose 50 ml UD IV 06/18/25 22:00 Amiodarone HCL/ Dextrose 200 ml @ 16.66 mls/ hr Q12H IV 06/20/25 05:00 06/24/25 08:05 16.66 MLS/HR Meropenem 50 ml @ 17 mls/hr DAILY@0100 IV 06/21/25 01:00 Cancel Meropenem 50 ml @ 17 mls/hr Q12HR IV 06/20/25 13:00 06/24/25 09:25 17 MLS/HR Sodium Chloride 60 meq/Potassium Chloride 60 meq/ Magnesium Sulfate 10 meq/ Multivitamins 10 ml/Chromium/ Copper/Manganese/ Zinc 1 ml/Insulin Human Regular 7 units/Amino Acids/ Dextrose 1,108.57 ml @ 46 mls/hr Q24H6M IV 06/23/25 22:00 06/24/25 21:59 06/23/25 21:58 46 MLS/HR Furosemide 40 mg DAILY IV 06/24/25 10:00 06/24/25 08:04 40 MG Potassium Chloride 100 ml @ 50 mls/hr Q2H IV 06/24/25 09:00 06/24/25 12:59 06/24/25 10:27 50 MLS/HR Sodium Chloride 40 meq/Potassium Chloride 80 meq/ Magnesium Sulfate 10 meq/ Multivitamins 10 ml/Chromium/ Copper/Manganese/ Zinc 1 ml/Insulin Human Regular 7 units/Amino Acids/ Dextrose 1,263.57 ml @ 53 mls/hr Q19H50C IV 06/24/25 22:00 06/25/25 21:59 Enoxaparin Sodium 90 mg BID SC 06/24/25 10:00 06/24/25 09:22 90 MG Laboratory Laboratory Tests 06/24/25 03:01 Test 06/24/25 03:01 Range/Units Serum Glucose 127 H 74-106 mg/dL Microbiology Date/Time Source Procedure Growth Status 06/17/25 07:00 Stool Stool Culture - Final Complete 06/17/25 07:00 Stool Shiga Toxin I & II - Final Complete 06/16/25 10:30 Blood Blood Culture - Final NO GROWTH AFTER 5 DAYS OF INCUBATION. Complete 06/11/25 14:25 Nose MRSA Screen - Final Complete Examination: GENERAL:Abnormal (Intubated and without sedation at this point), HEENT:Abnormal (ETT/OG tube in place), ABDOMEN:Abnormal (Nondistended, wound VAC in the midline, incision without surrounding erythema/edema/pus/drainage, right lower quadrant ileostomy with pink mucosa (bowel sweat in bag), right lower quadrant drain with very minimal serosanguineous output, left lower quadrant drain with very minimal serosanguineous output) Labs and/or images reviewed: Labs reviewed by me (Leukocytosis down trending to 13 from 16), Image(s) reviewed by me (Chest x-ray with small bilateral effusions) Problem List/Assessment/Plan Assessment and Plan Mrs. Penaloza is a 54-year-old female who has been in the hospital since June 08 due to pneumonia and CHF exacerbation that resulted in intubation. I was consulted on 06/17 due to sever colonic distention and pneumatosis seen on CT from that day. Pt is currently POD 5 from initial surgery, but required to take backs to the OR. Her surgeries were finalized on 06/20: ileocolic anastomosis was done, a protective loop ileostomy was done, 2 drains were placed, fascia was closed, skin was left opened to close by secondary intention given high risk for SSI. Interval: ICU team working on lowering sedation for possible extubation. Patient is currently off vasopressors. NG tube output 210 mL bilious, it was flushed this morning at bedside. Bilateral drain outputs, low, and serosanguineous. Still pending return of bowel function through the ileostomy, currently just bowel sweat in bag. Surgeries: 06/17: Exploratory laparotomy, subtotal colectomy (resection of ascending and transverse colon), temporary abdominal closure 06/19: Exploratory laparotomy, takedown of temporary abdominal dressing, wash out, resection of descending colon 06/20: Exploratory laparotomy, takedown of temporary abdominal dressing, washout, ileocolic anastomosis, protective loop ileostomy, drain placement x2, fascial closure 1. Strict NPO 2. NG/OG tube to LIS 3. Wound VAC for midline wound 4. Drain stripping and emptying once per shift and p.r.n. 5. Recommend continuation of TPN 6. Recommend continuation of IV antibiotics for a total of 7 days from the last surgery on 06/20 7. No GI cathartic medications Plan discussed with Plan discussed with: Spouse Visit Coding Surgery Date of Service if different f: Jun 24, 2025 Billing Provider: SONAM ALCARAZ MD Surgery Visit Codes: [id number] INP/OBS CARE(HIGH) SONAM ALCARAZ MD Jun 24, 2025 12:33
--- NOTE | 2025-06-24 16:10 | DVHPN2 ---
Progress Note Date Seen: Jun 24, 2025 Medical Necessity Reason Pt with a Central, PICC or Fol: Yes The following are medically ne: Central Line, Engel Catheter Subjective Review of Systems: RESPIRATORY:Abnormal Other Systems: Patient seen and examined by myself today in follow-up, patient remained intubated on ventilator Objective vital signs Vital Sign Date Time Temp Pulse Resp B/P (MAP) Pulse Ox O2 Delivery O2 Flow Rate FiO2 06/24/25 16:00 98.2 105 20 128/58 (81) 96 98.2 140/55 (83) 06/24/25 14:01 30 06/24/25 14:00 Mechanical Ventilator+ Total Intake and Output 06/23/25 06/23/25 06/24/25 14:59 22:59 06:59 Intake Total 710.05 ml 683.8527 ml 656.53 ml Output Total 1140 ml 970 ml Balance 710.05 ml -456.1473 ml -313.47 ml medications Current Medications Medications Dose Ordered Sig/Bárbara Route Start Time Stop Time Status Last Admin Dose Admin Ondansetron HCl 4 mg Q4HP PRN IV 06/09/25 01:00 Cancel Acetaminophen 650 mg Q6HP PRN PO 06/09/25 01:00 06/10/25 20:15 650 MG Nitroglycerin 0.4 mg Q5MINP PRN SL 06/09/25 01:00 Propofol 100 ml @ 2.16 mls/hr Q24H IV 06/11/25 12:00 06/21/25 12:23 4.32 MLS/HR Fentanyl Citrate 250 ml @ 2.5 mls/hr Q24H IV 06/11/25 12:00 06/24/25 05:10 10 MLS/HR Midazolam HCl 50 ml @ 1 mls/hr Q24H IV 06/11/25 14:45 06/23/25 07:44 2 MLS/HR Ipratropium [place] 0.5 mg Q6HR NEB 06/14/25 10:15 06/24/25 12:07 0.5 MG Levalbuterol HCl 1.25 mg Q6HR NEB 06/15/25 00:00 06/24/25 12:07 1.25 MG Sodium Bicarbonate 75 ml/ Dextrose 1,075 ml @ 700 mls/hr Q1H33M IV 06/16/25 17:15 06/16/25 18:47 Cancel Pantoprazole Sodium 40 mg BID IV 06/17/25 10:00 06/24/25 08:03 40 MG Vancomycin HCl 0 ml @ 0 mls/hr UD IV 06/17/25 11:45 Bumetanide 1 mg BIDD IV 06/17/25 18:00 Cancel Norepinephrine Bitartrate 250 ml @ 3.75 mls/hr Q24H IV 06/17/25 18:30 06/21/25 21:00 3.75 MLS/HR Micafungin Sodium 100 mg/Sodium Chloride 100 ml @ 100 mls/hr DAILY IV 06/19/25 10:00 06/24/25 08:07 100 MLS/HR Amino Acids 0 ml @ 0 mls/hr PER PHARMACY IV 06/18/25 12:15 Diagnostic Test (Pha) 1 strip Q6HR 06/19/25 00:00 06/24/25 11:57 1 STRIP Insulin Human Regular FOLLOW SLIDING SCALE Q6HR SC 06/19/25 00:00 06/24/25 00:12 2 UNITS Dextrose 50 ml UD IV 06/18/25 22:00 Amiodarone HCL/ Dextrose 200 ml @ 16.66 mls/ hr Q12H IV 06/20/25 05:00 06/24/25 08:05 16.66 MLS/HR Meropenem 50 ml @ 17 mls/hr DAILY@0100 IV 06/21/25 01:00 Cancel Meropenem 50 ml @ 17 mls/hr Q12HR IV 06/20/25 13:00 06/24/25 09:25 17 MLS/HR Sodium Chloride 60 meq/Potassium Chloride 60 meq/ Magnesium Sulfate 10 meq/ Multivitamins 10 ml/Chromium/ Copper/Manganese/ Zinc 1 ml/Insulin Human Regular 7 units/Amino Acids/ Dextrose 1,108.57 ml @ 46 mls/hr Q24H6M IV 06/23/25 22:00 06/24/25 21:59 06/23/25 21:58 46 MLS/HR Furosemide 40 mg DAILY IV 06/24/25 10:00 06/24/25 08:04 40 MG Sodium Chloride 40 meq/Potassium Chloride 80 meq/ Magnesium Sulfate 10 meq/ Multivitamins 10 ml/Chromium/ Copper/Manganese/ Zinc 1 ml/Insulin Human Regular 7 units/Amino Acids/ Dextrose 1,263.57 ml @ 53 mls/hr [id number] IV 06/24/25 22:00 06/25/25 21:59 Enoxaparin Sodium 90 mg BID SC 06/24/25 10:00 06/24/25 09:22 90 MG Examination: LUNGS:Normal, CVS:Normal, MSK:Normal laboratory and microbiology Laboratory Tests 06/24/25 03:01 Test 06/24/25 03:01 Range/Units Serum Glucose 127 H 74-106 mg/dL Microbiology Date/Time Source Procedure Growth Status 06/17/25 07:00 Stool Stool Culture - Final Complete 06/17/25 07:00 Stool Shiga Toxin I & II - Final Complete 06/16/25 10:30 Blood Blood Culture - Final NO GROWTH AFTER 5 DAYS OF INCUBATION. Complete 06/11/25 14:25 Nose MRSA Screen - Final Complete Problem List/Assessment/Plan Problem List/Assessment/Plan Acute kidney injury on chronic kidney disease stage IIIA secondary to hemodynamic mediated, FeNa > 2% 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 IV antibiotic IV steroids KCL replacement Thyroid replacement Insulin sliding scale Kidney ultrasound reported within normal limit Surgery on board We will continue to follow Plan discussed with: Other (Nurse) Dietary Evaluation Review Comments: 1) If patient remains NPO > 7 days, consider EN/TPN to meet at least 75% of estimated daily needs 2) If gut is preferred, consider Nepro @ 25 mL/hr goal rate as tolerated. Flush with 200 mL free H2O Q6H. TF regimen will provide 1080 kcals, 49g Pro, and 1236 mL free H2O per 24 hrs. TF regimen will meet ~ 92% estimated energy needs and 52% estimated protein needs. 3) Advance to 60g CCHO renal cardiac diet when medically feasible, pending ST approval 4) Refer to outpatient RD/[facility]CES for weight management 5) Follow-up with cardiology, pulmonology, or nephrology 6) Continue to monitor I&O, labs, and skin integrity Expected Outcomes/Goals: 1) patient to receive nutritional support within 7 days of NPO status 2) labs to improve 3) diet to advance 4) f/u in 2-3 days Sepsis reassessment post fluid Capillary Refill: < 3 seconds MARIO DALE MD Jun 24, 2025 16:10
--- NOTE | 2025-06-24 17:53 | DVHPNRES ---
Progress Note Date Seen: Jun 24, 2025 Resident Creating Document: MARCELLO BURDEN RESIDENT Medical Necessity Reason Pt with a Central, PICC or Fol: Yes The following are medically ne: Central Line, Engel Catheter Subjective Review of Systems This is a 54-year-old female with recent ESBL bacteriemia, chronic heart failure with preserved ejection fraction, paroxysmal atrial fibrillation, severe aortic and mitral insufficiency, prediabetes, asthma and CKD 3A, morbid obesity, questionable rheumatoid arthritis and Crohn's disease who presented to the ER for the evaluation of shortness of breaths for the past 2 days. Associated with nonproductive cough and swelling at her ankles for the past 2 weeks. She denied fever or chills per chart review. Patient was kept on BiPAP which did not improve her condition and she had increased work of breathing and therefore patient was intubated and mechanically ventilated on 06/11. She has been getting IV diuretics with Lasix, and has been getting treatment for CHF exacerbation and pneumonia. Per , Patient was intubated in 2022 for pneumonia [place], following which she needed oxygen supplementation with 5 L NC. Past medical history:severe aortic insufficiency, moderate MR, moderate TR, COPD on 4 L home oxygen, CKD 3B, questionable rheumatoid arthritis and Crohn's disease Past surgical history: EBENEZER: Back surgery: Hysterectomy Home medication: Patient denies taking biological agents or methotrexate. Eliquis 5 mg p.o. b.i.d., amiodarone 200 mg daily, clonidine 0.1 mg b.i.d., furosemide 40 mg p.o. b.i.d., ibuprofen p.r.n., metoprolol 200 mg b.i.d., rosuvastatin, tizanidine Follow up Dr. Contreras. Overnight afebrile, respiratory rate 24 per minute, on minimal vent settings at 30% FiO2. WBC downtrending from 20 on arrival to 9.5, BUN/creatinine trending up, GFR decreasing. Social history: Quit smoking 20 years, was smoking marijuana till June 2023. Lives with 06/14-Patient seen and examined in ICU. Patient was having AFib with RVR, started IV amiodarone, discontinued p.o. amiodarone. Which improved patient's heart rate. Started Coreg and amlodipine. 06/15 - seen and examined, WBC count increased to 14 from 9. GFR and creatinine improving. Intermittently AFib with RVR, IV amiodarone increased from 0.5-1. CPAP trial failed, low tidal volumes 06/16 - overnight 98.2, wbc inc to 21, cr improving, AGMA, started zosyn, tap water enema. 06/17 - overnight 99.9 F, intermittent tachycardia, abdomen is distended and tender, hypoactive, CT abdomen completed, showed Significant dilation of the colon measuring up to 8 cm with possible pneumatosis intestinalis along the ascending colon versus non dependent air. Evidence of portal venous gas. Imaging findings elevate concern for bowel ischemia of the ascending colon/cecum. Surgeon consulted-recommended surgery, consent signed patient undergoing ex laparotomy. NPO, pantoprazole b.i.d., DC antihypertensives. Lactic acid unremarkable, vanc and meropenem started. Nephrology started D5W bicarb drip. 06/18-overnight patient underwent subtotal colectomy, second-look surgery with possible bowel resection tomorrow 06/19. Pressor requirement decreased from Reuben- Synephrine and Levophed to Levophed. Currently at 4 mcg. Nephrology started Bumex drip 0.5. NG to LIS. Added micafungin today. Continue vanc and meropenem. DC LR. Continue D5 with bicarb. Chest x-ray shows worsening congestion. BUN creatinine trending up. WBC 46. No grimacing on abdominal outpatient today. ABG shows anion gap metabolic acidosis with respiratory compensation. 06/21 - over the weekend, 06/19, hemodialysis catheter placed, arterial line placed. Patient experienced AFib with RVR, IV mg increased to 1 mcg. Underwent hemodialysis 06/20, received 2 packed RBCs. Underwent ileosigmoid anastomosis, and ileostomy. Patient is on Levophed at 6 mcg. Anion gap acidosis resolving, DC bicarb drip. Urine output improving, nephrology-hold hemodialysis. 06/22 - seen and examined, NPO, NG to LIS, urine output 1100 for 24 hours, absent bowel sounds. 06/23 - given distended, hypoactive, stoma red, NPO, NG to LIS draining bilious, abdominal drains draining serosanguineous. hd cath removed, bumex dc'ed. cpap tomorrow 06/24 - patient seen and examined, abdominal drains around 20 cc each, NG draining bilious, ileostomy started to put blackish output, NPO, NG to LIS, off sedation except fentanyl, patient opening eyes to commands, briefly, CPAP trial tomorrow. Drapery Installer started Lasix 40 mg IV daily Objective vital signs Vital Sign Date Time Temp Pulse Resp B/P (MAP) Pulse Ox O2 Delivery O2 Flow Rate FiO2 06/24/25 17:36 98 06/24/25 17:36 20 97 Mechanical Ventilator+ 30 30 06/24/25 17:30 136/63 (87) 143/58 (86) 06/24/25 16:00 98.2 98.2 Total Intake and Output 06/23/25 06/23/25 06/24/25 15:00 23:00 07:00 Intake Total 720.96 ml 701.1027 ml 628.28 ml Output Total 1140 ml 970 ml Balance 720.96 ml -438.8973 ml -341.72 ml medications Current Medications Medications Dose Ordered Sig/Bárbara Route Start Time Stop Time Status Last Admin Dose Admin Ondansetron HCl 4 mg Q4HP PRN IV 06/09/25 01:00 Cancel Acetaminophen 650 mg Q6HP PRN PO 06/09/25 01:00 06/10/25 20:15 650 MG Nitroglycerin 0.4 mg Q5MINP PRN SL 06/09/25 01:00 Propofol 100 ml @ 2.16 mls/hr Q24H IV 06/11/25 12:00 06/21/25 12:23 4.32 MLS/HR Fentanyl Citrate 250 ml @ 2.5 mls/hr Q24H IV 06/11/25 12:00 06/24/25 05:10 10 MLS/HR Midazolam HCl 50 ml @ 1 mls/hr Q24H IV 06/11/25 14:45 06/23/25 07:44 2 MLS/HR Ipratropium [place] 0.5 mg Q6HR NEB 06/14/25 10:15 06/24/25 12:07 0.5 MG Levalbuterol HCl 1.25 mg Q6HR NEB 06/15/25 00:00 06/24/25 12:07 1.25 MG Sodium Bicarbonate 75 ml/ Dextrose 1,075 ml @ 700 mls/hr Q1H33M IV 06/16/25 17:15 06/16/25 18:47 Cancel Pantoprazole Sodium 40 mg BID IV 06/17/25 10:00 06/24/25 08:03 40 MG Vancomycin HCl 0 ml @ 0 mls/hr UD IV 06/17/25 11:45 Bumetanide 1 mg BIDD IV 06/17/25 18:00 Cancel Norepinephrine Bitartrate 250 ml @ 3.75 mls/hr Q24H IV 06/17/25 18:30 06/21/25 21:00 3.75 MLS/HR Micafungin Sodium 100 mg/Sodium Chloride 100 ml @ 100 mls/hr DAILY IV 06/19/25 10:00 06/24/25 08:07 100 MLS/HR Amino Acids 0 ml @ 0 mls/hr PER PHARMACY IV 06/18/25 12:15 Diagnostic Test (Pha) 1 strip Q6HR 06/19/25 00:00 06/24/25 17:42 1 STRIP Insulin Human Regular FOLLOW SLIDING SCALE Q6HR SC 06/19/25 00:00 06/24/25 17:42 2 UNITS Dextrose 50 ml UD IV 06/18/25 22:00 Amiodarone HCL/ Dextrose 200 ml @ 16.66 mls/ hr Q12H IV 06/20/25 05:00 06/24/25 08:05 16.66 MLS/HR Meropenem 50 ml @ 17 mls/hr DAILY@0100 IV 06/21/25 01:00 Cancel Meropenem 50 ml @ 17 mls/hr Q12HR IV 06/20/25 13:00 06/24/25 09:25 17 MLS/HR Sodium Chloride 60 meq/Potassium Chloride 60 meq/ Magnesium Sulfate 10 meq/ Multivitamins 10 ml/Chromium/ Copper/Manganese/ Zinc 1 ml/Insulin Human Regular 7 units/Amino Acids/ Dextrose 1,108.57 ml @ 46 mls/hr Q24H6M IV 06/23/25 22:00 06/24/25 21:59 06/23/25 21:58 46 MLS/HR Furosemide 40 mg DAILY IV 06/24/25 10:00 06/24/25 08:04 40 MG Sodium Chloride 40 meq/Potassium Chloride 80 meq/ Magnesium Sulfate 10 meq/ Multivitamins 10 ml/Chromium/ Copper/Manganese/ Zinc 1 ml/Insulin Human Regular 7 units/Amino Acids/ Dextrose 1,263.57 ml @ 53 mls/hr [id number] IV 06/24/25 22:00 06/25/25 21:59 Enoxaparin Sodium 90 mg BID SC 06/24/25 10:00 06/24/25 09:22 90 MG Examination Morbidly obese female patient lying in the bed intubated and mechanically ventilated, RASS -3 General: Morbidly obese, afebrile, palor, mucosae are moist. Generalized anasarca. Cardiovascular: Tachycardic and irregular S1 and S2. No murmurs, gallops or rubs. No JVD elevation. 1+ pitting edema bilaterally Respiratory: Decreased bilateral air entry, coarse crackles bilateral lower lobe Abdomen: Drains attached to abdomen, non grimacing, nondistended, hypoactive bowel sounds, ileostomy with blackish output, stoma red. Rectal exam completed, shows liquid stool in the vault, no masses felt, stool color reddish Genitourinary: DC Right femoral hemodialysis, Engel seen MSK/skin: Skin is dry and warm Neurological: Intact gag/pupillary light reflex Pupils are isocoric and reactive. laboratory and microbiology Laboratory Tests 06/24/25 03:01 Test 06/24/25 03:01 Range/Units Serum Glucose 127 H 74-106 mg/dL Microbiology Date/Time Source Procedure Growth Status 06/17/25 07:00 Stool Stool Culture - Final Complete 06/17/25 07:00 Stool Shiga Toxin I & II - Final Complete 06/16/25 10:30 Blood Blood Culture - Final NO GROWTH AFTER 5 DAYS OF INCUBATION. Complete 06/11/25 14:25 Nose MRSA Screen - Final Complete Labs and/or images reviewed: Labs reviewed by me, Image(s) reviewed by me Problem List/Assessment/Plan Problem List/Assessment/Plan NEURO: Intubated, on sedatives CARDIOVASCULAR: Acute on chronic heart failure with preserved ejection fraction exacerbation Paroxysmal Atrial fibrillation with RVR Pulmonary edema Severe aortic insufficiency, mitral valve insufficiency, tricuspid regurg Per Cardiology:patient underwent a transesophageal echocardiogram on 03/26/2025 which revealed an EF of 60% with severe aortic insufficiency and with moderate mitral insufficiency. Continue with Preload and afterload reduction. ([id number]- VASc Score 2 points, HAS-BLED Score 0 points): We will recommend to continue antiarrhythmic therapy with amiodarone, DOAC therapy with Eliquis, and beta- octavio for rate control . Outpatient follow up with Dr. Melo in [place] for aortic valve replacement with possible TAVR as well as possible mitral clip. She has seen medical logistics specialist in [place] one time and underwent a EBENEZER. The patient is scheduled to have a right and left heart catheterization later this month for TAVR workup. Discontinued P.o. amlodipine, p.o. Coreg IV amiodarone protocol started 06/14 Lasix 40 IV daily Discontinued Solu-Medrol Lovenox 90 mg b.i.d. PULMONARY: Acute hypoxic respiratory failure status post intubation 06/11 Hx of Pna and intubation 2022 Sepsis secondary to Acute Gram-positive and Gram-negative pneumonia Likely COPD on 4L home O2 Chronic oxygen dependence History of asthma Discontinued IV doxycycline, added zosyn 06/16, started IV vancomycin and IV meropenem 06/17, added micafungin 06/18 Nebulized treatments GASTROINTESTINAL: Pneumatosis intestinalis and megacolon likely ischemic bowel Perforation and peritonitis Anion gap metabolic acidosis Status s/p laparotomy, subtotal colectomy 06/17, resection of descending colon 06/19, ileocolic anastomosis with protective loop ileostomy, drain placement 06/20 Transaminitis, likely nonalcoholic steatohepatitis liver ultrasound shows hepatic steatosis CT abdomen completed, showed Significant dilation of the colon measuring up to 8 cm with possible pneumatosis intestinalis along the ascending colon versus non dependent air. Evidence of portal venous gas. Imaging findings elevate concern for bowel ischemia of the ascending colon/cecum. Surgeon - strict NPO, NG tube to LIS, wound VAC for midline wound GENITOURINARY: NYASIA secondary to hemodynamically mediated/VMN requiring hemodialysis 06/20 ? Chronic kidney disease Anemia of CKD Kidney ultrasound shows Normal sonographic appearance of the kidneys. No hydronephrosis. 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 Bowel regimen: Lactulose discontinued Code status: Full code LINES/DRAINS/ACCESS: IV access: Right IJ 06/11, A-line 06/19 Drips: Versed, fentanyl, Levophed Engel catheter DISPOSITION: ICU Patient's status discussed with the patient's spouse at bedside, nurse in which all questions have been answered Critical care time spent more than 68 minutes, including patient care, chart review, and updating the family. Excluding any procedures Case discussed with Dr. Benjamin Plan discussed with: Other (mother, daughter at bedside) My Orders My Orders Orders - MARCELLO BURDEN RESIDENT Procedure Category Date Status Time Abg W/ Co-Ox RT 06/24/25 Logged 06:00 Amino Acid PHA 06/24/25 In Process Infusion... W/Sodium 22:00 Comprehensive LAB 06/25/25 Verified Metabolic Panel 04:00 Magnesium LAB 06/25/25 Verified 04:00 Phosphorus LAB 06/25/25 Verified 04:00 Tpn Per Pharmacy DEANDRA 06/24/25 In Process 22:00 Enoxaparin Sodium PHA 06/24/25 In Process (Lovenox) 10:00 Dietary Evaluation Review Comments: 1) If patient remains NPO > 7 days, consider EN/TPN to meet at least 75% of estimated daily needs 2) If gut is preferred, consider Nepro @ 25 mL/hr goal rate as tolerated. Flush with 200 mL free H2O Q6H. TF regimen will provide 1080 kcals, 49g Pro, and 1236 mL free H2O per 24 hrs. TF regimen will meet ~ 92% estimated energy needs and 52% estimated protein needs. 3) Advance to 60g CCHO renal cardiac diet when medically feasible, pending ST approval 4) Refer to outpatient RD/CDCES for weight management 5) Follow-up with cardiology, pulmonology, or nephrology 6) Continue to monitor I&O, labs, and skin integrity Expected Outcomes/Goals: 1) patient to receive nutritional support within 7 days of NPO status 2) labs to improve 3) diet to advance 4) f/u in 2-3 days Sepsis reassessment post fluid Capillary Refill: < 3 seconds Date of Service: Jun 24, 2025 Billing Provider: ELZA BENJAMIN MD Common Visit Codes: 56003-IMEOXIBN CARE 30-74 MIN MARCELLO BURDEN RESIDENT Jun 24, 2025 17:53 ELZA BENJAMIN MD Jun 26, 2025 12:33
[2025-06-24] MEDS: TPN PER PHARMACY IV NR (20:52)
--- NOTE | 2025-06-24 22:12 | DVHPN2 ---
Progress Note - Dictate Date Seen: Jun 24, 2025 Medical Necessity Reason Pt with a Central, PICC or Fol: Yes The following are medically ne: Central Line, Engel Catheter Subjective Patient was seen and evaluated in follow up in the ICU. Patient is intubated and sedated on ventilator. 30% FiO2. Patient having runs of tachycardia. WBC 13.4, HGB 8.1, HCT 24.4, K 3.4, BUN 71, WELDER TACK 1.83, CA 8.5. Chest x-ray showed cardiomegaly. vital signs Vital Sign Date Time Temp Pulse Resp B/P (MAP) Pulse Ox O2 Delivery O2 Flow Rate FiO2 06/24/25 10:00 20 99 Mechanical Ventilator+ 30 30 06/24/25 10:00 123 06/24/25 10:00 133/70 (91) 143/63 (89) 06/24/25 08:00 98.3 98.3 Total Intake and Output 06/23/25 06/23/25 06/24/25 15:00 23:00 07:00 Intake Total 720.96 ml 701.1027 ml 628.28 ml Output Total 1140 ml 970 ml Balance 720.96 ml -438.8973 ml -341.72 ml medications Current Medications Medications Dose Ordered Sig/Bárbara Route Start Time Stop Time Status Last Admin Dose Admin Ondansetron HCl 4 mg Q4HP PRN IV 06/09/25 01:00 Cancel Acetaminophen 650 mg Q6HP PRN PO 06/09/25 01:00 06/10/25 20:15 650 MG Nitroglycerin 0.4 mg Q5MINP PRN SL 06/09/25 01:00 Propofol 100 ml @ 2.16 mls/hr Q24H IV 06/11/25 12:00 06/21/25 12:23 4.32 MLS/HR Fentanyl Citrate 250 ml @ 2.5 mls/hr Q24H IV 06/11/25 12:00 06/24/25 05:10 10 MLS/HR Midazolam HCl 50 ml @ 1 mls/hr Q24H IV 06/11/25 14:45 06/23/25 07:44 2 MLS/HR Ipratropium [place] 0.5 mg Q6HR NEB 06/14/25 10:15 06/24/25 06:26 0.5 MG Levalbuterol HCl 1.25 mg Q6HR NEB 06/15/25 00:00 06/24/25 06:26 1.25 MG Sodium Bicarbonate 75 ml/ Dextrose 1,075 ml @ 700 mls/hr Q1H33M IV 06/16/25 17:15 06/16/25 18:47 Cancel Pantoprazole Sodium 40 mg BID IV 06/17/25 10:00 06/24/25 08:03 40 MG Vancomycin HCl 0 ml @ 0 mls/hr UD IV 06/17/25 11:45 Bumetanide 1 mg BIDD IV 06/17/25 18:00 Cancel Norepinephrine Bitartrate 250 ml @ 3.75 mls/hr Q24H IV 06/17/25 18:30 06/21/25 21:00 3.75 MLS/HR Phenylephrine HCl 250 ml @ 30 mls/hr Q8H20M IV 06/17/25 20:15 Micafungin Sodium 100 mg/Sodium Chloride 100 ml @ 100 mls/hr DAILY IV 06/19/25 10:00 06/24/25 08:07 100 MLS/HR Amino Acids 0 ml @ 0 mls/hr PER PHARMACY IV 06/18/25 12:15 Diagnostic Test (Pha) 1 strip Q6HR 06/19/25 00:00 06/24/25 06:24 1 STRIP Insulin Human Regular FOLLOW SLIDING SCALE Q6HR SC 06/19/25 00:00 06/24/25 00:12 2 UNITS Dextrose 50 ml UD IV 06/18/25 22:00 Amiodarone HCL/ Dextrose 200 ml @ 16.66 mls/ hr Q12H IV 06/20/25 05:00 06/24/25 08:05 16.66 MLS/HR Meropenem 50 ml @ 17 mls/hr DAILY@0100 IV 06/21/25 01:00 Cancel Meropenem 50 ml @ 17 mls/hr Q12HR IV 06/20/25 13:00 06/24/25 09:25 17 MLS/HR Sodium Chloride 60 meq/Potassium Chloride 60 meq/ Magnesium Sulfate 10 meq/ Multivitamins 10 ml/Chromium/ Copper/Manganese/ Zinc 1 ml/Insulin Human Regular 7 units/Amino Acids/ Dextrose 1,108.57 ml @ 46 mls/hr Q24H6M IV 06/23/25 22:00 06/24/25 21:59 06/23/25 21:58 46 MLS/HR Furosemide 40 mg DAILY IV 06/24/25 10:00 06/24/25 08:04 40 MG Potassium Chloride 100 ml @ 50 mls/hr Q2H IV 06/24/25 09:00 06/24/25 12:59 06/24/25 10:27 50 MLS/HR Sodium Chloride 40 meq/Potassium Chloride 80 meq/ Magnesium Sulfate 10 meq/ Multivitamins 10 ml/Chromium/ Copper/Manganese/ Zinc 1 ml/Insulin Human Regular 7 units/Amino Acids/ Dextrose 1,263.57 ml @ 53 mls/hr [id number] IV 06/24/25 22:00 06/25/25 21:59 Enoxaparin Sodium 90 mg BID SC 06/24/25 10:00 06/24/25 09:22 90 MG objective GENERAL: Ill appearing, intubated on ventilator. EYES: PERRL, EOMI. Anicteric. HENT: Moist mucous membranes. LUNGS: Decreased breath sounds. CARDIOVASCULAR: Regular rate and rhythm. ABDOMEN: Soft, nontender and nondistended. EXTREMITIES: No edema. NEUROLOGIC: No focal neurological deficits. SKIN: Warm, dry. laboratory and microbiology Laboratory Tests 06/24/25 03:01 Test 06/24/25 03:01 Range/Units Serum Glucose 127 H 74-106 mg/dL Problem List Chronic HFpEF, NYHA class IV. Paroxysmal atrial fibrillation, stage III, now NSR (on amiodarone/Elqiuis therapy). Severe aortic valve and mitral valve insufficiency. Acute hypoxic respiratory failure. Asthma. Chronic kidney disease. Thyroid disease. Prediabetes, newly diagnosed. Morbid obesity. History of tobacco use. Assessment/Plan Continued all current supportive medical care. IV Amiodarone. Diuretics with Lasix. IV antibiotics as ordered. GI and DVT prophylactics. Nebulized breathing treatments. Additional plan as per the hospital course. Critical care time of 45 minutes provided to include time spent evaluation of patient at bedside, when appropriate patient/family education for diagnosis, treatment plan, review of pertinent medical information and discussion of care with specialty providers and PCP. Mechanical ventilator parameters, treatment and adjustments have personally been reviewed by me and treatment plan by hemodialysis lab technician has also been reviewed. Dietary Evaluation Review Comments: 1) If patient remains NPO > 7 days, consider EN/TPN to meet at least 75% of estimated daily needs 2) If gut is preferred, consider Nepro @ 25 mL/hr goal rate as tolerated. Flush with 200 mL free H2O Q6H. TF regimen will provide 1080 kcals, 49g Pro, and 1236 mL free H2O per 24 hrs. TF regimen will meet ~ 92% estimated energy needs and 52% estimated protein needs. 3) Advance to 60g CCHO renal cardiac diet when medically feasible, pending ST approval 4) Refer to outpatient RD/CDCES for weight management 5) Follow-up with cardiology, pulmonology, or nephrology 6) Continue to monitor I&O, labs, and skin integrity Expected Outcomes/Goals: 1) patient to receive nutritional support within 7 days of NPO status 2) labs to improve 3) diet to advance 4) f/u in 2-3 days Plan discussed with: Other Capillary Refill: < 3 seconds URBANO TRUONG MD Jun 24, 2025 11:47
[2025-06-25] VITALS (108 sets, daily range): BP systolic 92–172; BP diastolic 37–89; PULSE 82–147; RESP 15–25; TEMP 97.8–98.3; O2SAT 97–100
[2025-06-25 04:22] LABS: Hematocrit 23.7 % (36.0-46.0); Hemoglobin 7.5 g/dL (12.2-16.2); Mean Corpuscular Hemoglobin 27.5 pg (28.0-32.0)
[2025-06-25 04:25] LABS: Mean Corpuscular Volume 86.6 fL (80.0-100.0)
[2025-06-25 04:43] LABS: Alanine Aminotransferase 20 U/L (7-40); Alkaline Phosphatase 111 U/L (46-116); Anion Gap 11 (5-15); BUN/Creatinine Ratio 38.9 (10.0-20.0); Carbon Dioxide 27 mmol/L (20-31); Chloride 106 mmol/L (98-107); Magnesium 1.9 mg/dL (1.6-2.6); Sodium 144 mmol/L (136-145)
[2025-06-25 04:44] LABS: Bilirubin, Total 0.3 mg/dL (0.2-1.0)
[2025-06-25 04:52] LABS: Albumin 2.4 g/dL (3.2-4.8); Blood Urea Nitrogen 65 mg/dL (9-23); Calcium 8.5 mg/dL (8.7-10.4); Glucose 133 mg/dL (74-106); Potassium 3.5 mmol/L (3.5-5.1); Total Protein 4.9 g/dL (5.7-8.2)
[2025-06-25 05:21] LABS: Total Cells Counted 100.0 (100)
[2025-06-25 05:22] LABS: Hypersegmented Neutrophils Present
--- NOTE | 2025-06-25 05:46 | DVH ---
CHEST RADIOGRAPH Indication: intubated Technique: Single frontal view of the chest was obtained COMPARISON: XY CHEST XRAY 1 VIEW on DOS: 06/24/25, XY CHEST XRAY 1 VIEW on DOS: 06/23/25, XY CHEST XRAY 1 VIEW on DOS: 06/22/25, XY CHEST PORTABLE on DOS: 06/21/25, XY CHEST PORTABLE on DOS: 06/20/25 FINDINGS: Lines and Tubes: Endotracheal tube, enteric catheter and right central venous catheter in satisfactor y position. Lungs: Lower lung volumes and pulmonary vascular congestion Pleura: No effusion. No pneumothorax. Cardiomediastinal contours: Cardiomegaly Bones: Unremarkable IMPRESSION: Slightly lower lung volumes. No other significant interval change.
[2025-06-25 07:32] LABS: Base Excess -0.3 mmol/L (-2.0-3.0)
[2025-06-25] MEDS: POTASSIUM CHL 20MEQ/100ML 100 ML IV ONE (10:00)
[2025-06-25] MEDS ORDERED: POTASSIUM CHL 20MEQ/100ML 100 ML IV ONE (10:00)
[2025-06-25] MEDS: VANCOMYCIN 500mg/100mL 100 ML IV ONE (10:00)
--- NOTE | 2025-06-25 10:08 | DVHPN2 ---
Progress Note - Surgical Date Seen: Jun 25, 2025 Post op day Post op day: 7 Subjective Patient reports: No new complaints (Patient is still intubated but off sedation, more alert this morning, when asked about abdominal pain she nodded yes to mild pain. She is afebrile, tachycardic on Amiodarone) Review of Systems: Deferred Objective Vital signs Vital Sign Date Time Temp Pulse Resp B/P (MAP) Pulse Ox O2 Delivery O2 Flow Rate FiO2 06/25/25 09:22 106 23 142/58 (86) 100 30 06/25/25 06:00 Mechanical Ventilator+ 06/25/25 04:00 98.1 98.1 Total Intake and Output 06/24/25 06/24/25 06/25/25 15:00 23:00 07:00 Intake Total 842.28 ml 647.44 ml 699.78 ml Output Total 1585 ml 1250 ml Balance 842.28 ml -937.56 ml -550.22 ml Medications Current Medications Medications Dose Ordered Sig/Bárbara Route Start Time Stop Time Status Last Admin Dose Admin Ondansetron HCl 4 mg Q4HP PRN IV 06/09/25 01:00 Cancel Acetaminophen 650 mg Q6HP PRN PO 06/09/25 01:00 06/10/25 20:15 650 MG Nitroglycerin 0.4 mg Q5MINP PRN SL 06/09/25 01:00 Propofol 100 ml @ 2.16 mls/hr Q24H IV 06/11/25 12:00 06/21/25 12:23 4.32 MLS/HR Fentanyl Citrate 250 ml @ 2.5 mls/hr Q24H IV 06/11/25 12:00 06/24/25 05:10 10 MLS/HR Midazolam HCl 50 ml @ 1 mls/hr Q24H IV 06/11/25 14:45 06/23/25 07:44 2 MLS/HR Ipratropium [place] 0.5 mg Q6HR NEB 06/14/25 10:15 06/25/25 06:02 0.5 MG Levalbuterol HCl 1.25 mg Q6HR NEB 06/15/25 00:00 06/25/25 06:02 1.25 MG Sodium Bicarbonate 75 ml/ Dextrose 1,075 ml @ 700 mls/hr Q1H33M IV 06/16/25 17:15 06/16/25 18:47 Cancel Pantoprazole Sodium 40 mg BID IV 06/17/25 10:00 06/24/25 21:06 40 MG Vancomycin HCl 0 ml @ 0 mls/hr UD IV 06/17/25 11:45 Bumetanide 1 mg BIDD IV 06/17/25 18:00 Cancel Micafungin Sodium 100 mg/Sodium Chloride 100 ml @ 100 mls/hr DAILY IV 06/19/25 10:00 06/24/25 08:07 100 MLS/HR Amino Acids 0 ml @ 0 mls/hr PER PHARMACY IV 06/18/25 12:15 Diagnostic Test (Pha) 1 strip Q6HR 06/19/25 00:00 06/25/25 05:41 1 STRIP Insulin Human Regular FOLLOW SLIDING SCALE Q6HR SC 06/19/25 00:00 06/25/25 05:52 2 UNITS Dextrose 50 ml UD IV 06/18/25 22:00 Amiodarone HCL/ Dextrose 200 ml @ 16.66 mls/ hr Q12H IV 06/20/25 05:00 06/24/25 19:56 16.66 MLS/HR Meropenem 50 ml @ 17 mls/hr DAILY@0100 IV 06/21/25 01:00 Cancel Meropenem 50 ml @ 17 mls/hr Q12HR IV 06/20/25 13:00 06/24/25 21:06 17 MLS/HR Furosemide 40 mg DAILY IV 06/24/25 10:00 06/24/25 08:04 40 MG Sodium Chloride 40 meq/Potassium Chloride 80 meq/ Magnesium Sulfate 10 meq/ Multivitamins 10 ml/Chromium/ Copper/Manganese/ Zinc 1 ml/Insulin Human Regular 7 units/Amino Acids/ Dextrose 1,263.57 ml @ 53 mls/hr [id number] IV 06/24/25 22:00 06/25/25 21:59 06/24/25 20:52 53 MLS/HR Potassium Chloride 80 meq/ Multivitamins 10 ml/Chromium/ Copper/Manganese/ Zinc 1 ml/Insulin Human Regular 8 units/Magnesium Sulfate 12 meq/ Amino Acids/ Dextrose 1,254.08 ml @ 52 mls/hr Q24H8M IV 06/25/25 22:00 06/26/25 21:59 Laboratory Laboratory Tests 06/25/25 03:41 Test 06/25/25 03:41 Range/Units Serum Glucose 133 H 74-106 mg/dL Microbiology Date/Time Source Procedure Growth Status 06/17/25 07:00 Stool Stool Culture - Final Complete 06/17/25 07:00 Stool Shiga Toxin I & II - Final Complete 06/16/25 10:30 Blood Blood Culture - Final NO GROWTH AFTER 5 DAYS OF INCUBATION. Complete 06/11/25 14:25 Nose MRSA Screen - Final Complete Examination: GENERAL:Abnormal (Intubated and off sedation more alert this morning), HEENT:Abnormal (ETT/OG tube in place), ABDOMEN:Abnormal (Nondistended, midline wound with wound VAC in place: No surrounding erythema/edema/, pus/drainage right lower quadrant ileostomy with pink mucosa and some bile tinged fluid in bag, right lower quadrant/left lower quadrant drains with very minimal serosanguineous output) Labs and/or images reviewed: Labs reviewed by me (Leukocytosis since continues to down trend 11.8 from 13.4), Image(s) reviewed by me (Chest x-ray with larger bilateral effusions) Problem List/Assessment/Plan Assessment and Plan Mrs. Penaloza is a 54-year-old female who has been in the hospital since June 08 due to pneumonia and CHF exacerbation that resulted in intubation. I was consulted on 06/17 due to sever colonic distention and pneumatosis seen on CT from that day. Pt is currently POD 5 from initial surgery, but required to take backs to the OR. Her surgeries were finalized on 06/20: ileocolic anastomosis was done, a protective loop ileostomy was done, 2 drains were placed, fascia was closed, skin was left opened to close by secondary intention given high risk for SSI. Interval: Patient is currently off sedation, and more alert this morning. She nodded yes to mild abdominal pain. Overall condition seems to be improving. Ileostomy started to produce bile tinged fluid, we will still leave the patient NPO until she produces more output. Continue with TPN. Bilateral drains with very minimal serosanguineous output. Midline wound looking good, healing well. Surgeries: 06/17: Exploratory laparotomy, subtotal colectomy (resection of ascending and transverse colon), temporary abdominal closure 06/19: Exploratory laparotomy, takedown of temporary abdominal dressing, wash out, resection of descending colon 06/20: Exploratory laparotomy, takedown of temporary abdominal dressing, washout, ileocolic anastomosis, protective loop ileostomy, drain placement x2, fascial closure 1. Strict NPO 2. NG/OG tube to LIS 3. Wound VAC for midline wound 4. Drain stripping and emptying once per shift and p.r.n. 5. Recommend continuation of TPN 6. Recommend continuation of IV antibiotics for a total of 7 days from the last surgery on 06/20 7. No GI cathartic medications Plan discussed with Plan discussed with: Spouse Visit Coding Surgery Date of Service if different f: Jun 25, 2025 Billing Provider: SONAM ALCARAZ MD Surgery Visit Codes: [id number] INP/OBS CARE(HIGH) SONAM ALCARAZ MD Jun 25, 2025 10:08
[2025-06-25 11:02] LABS: Base Excess -0.4 mmol/L (-2.0-3.0)
--- NOTE | 2025-06-25 16:06 | DVHPNRES ---
Progress Note Date Seen: Jun 25, 2025 Resident Creating Document: MARCELLO BURDEN RESIDENT Medical Necessity Reason Pt with a Central, PICC or Fol: Yes The following are medically ne: Central Line, Engel Catheter Subjective Review of Systems This is a 54-year-old female with recent ESBL bacteriemia, chronic heart failure with preserved ejection fraction, paroxysmal atrial fibrillation, severe aortic and mitral insufficiency, prediabetes, asthma and CKD 3A, morbid obesity, questionable rheumatoid arthritis and Crohn's disease who presented to the ER for the evaluation of shortness of breaths for the past 2 days. Associated with nonproductive cough and swelling at her ankles for the past 2 weeks. She denied fever or chills per chart review. Patient was kept on BiPAP which did not improve her condition and she had increased work of breathing and therefore patient was intubated and mechanically ventilated on 06/11. She has been getting IV diuretics with Lasix, and has been getting treatment for CHF exacerbation and pneumonia. Per , Patient was intubated in 2022 for pneumonia [place], following which she needed oxygen supplementation with 5 L NC. Past medical history:severe aortic insufficiency, moderate MR, moderate TR, COPD on 4 L home oxygen, CKD 3B, questionable rheumatoid arthritis and Crohn's disease Past surgical history: EBENEZER: Back surgery: Hysterectomy Home medication: Patient denies taking biological agents or methotrexate. Eliquis 5 mg p.o. b.i.d., amiodarone 200 mg daily, clonidine 0.1 mg b.i.d., furosemide 40 mg p.o. b.i.d., ibuprofen p.r.n., metoprolol 200 mg b.i.d., rosuvastatin, tizanidine Follow up Dr. Contreras. Overnight afebrile, respiratory rate 24 per minute, on minimal vent settings at 30% FiO2. WBC downtrending from 20 on arrival to 9.5, BUN/creatinine trending up, GFR decreasing. Social history: Quit smoking 20 years, was smoking marijuana till June 2023. Lives with 06/14-Patient seen and examined in ICU. Patient was having AFib with RVR, started IV amiodarone, discontinued p.o. amiodarone. Which improved patient's heart rate. Started Coreg and amlodipine. 06/15 - seen and examined, WBC count increased to 14 from 9. GFR and creatinine improving. Intermittently AFib with RVR, IV amiodarone increased from 0.5-1. CPAP trial failed, low tidal volumes 06/16 - overnight 98.2, wbc inc to 21, cr improving, AGMA, started zosyn, tap water enema. 06/17 - overnight 99.9 F, intermittent tachycardia, abdomen is distended and tender, hypoactive, CT abdomen completed, showed Significant dilation of the colon measuring up to 8 cm with possible pneumatosis intestinalis along the ascending colon versus non dependent air. Evidence of portal venous gas. Imaging findings elevate concern for bowel ischemia of the ascending colon/cecum. Surgeon consulted-recommended surgery, consent signed patient undergoing ex laparotomy. NPO, pantoprazole b.i.d., DC antihypertensives. Lactic acid unremarkable, vanc and meropenem started. Nephrology started D5W bicarb drip. 06/18-overnight patient underwent subtotal colectomy, second-look surgery with possible bowel resection tomorrow 06/19. Pressor requirement decreased from Reuben- Synephrine and Levophed to Levophed. Currently at 4 mcg. Nephrology started Bumex drip 0.5. NG to LIS. Added micafungin today. Continue vanc and meropenem. DC LR. Continue D5 with bicarb. Chest x-ray shows worsening congestion. BUN creatinine trending up. WBC 46. No grimacing on abdominal outpatient today. ABG shows anion gap metabolic acidosis with respiratory compensation. 06/21 - over the weekend, 06/19, hemodialysis catheter placed, arterial line placed. Patient experienced AFib with RVR, IV mg increased to 1 mcg. Underwent hemodialysis 06/20, received 2 packed RBCs. Underwent ileosigmoid anastomosis, and ileostomy. Patient is on Levophed at 6 mcg. Anion gap acidosis resolving, DC bicarb drip. Urine output improving, nephrology-hold hemodialysis. 06/22 - seen and examined, NPO, NG to LIS, urine output 1100 for 24 hours, absent bowel sounds. 06/23 - given distended, hypoactive, stoma red, NPO, NG to LIS draining bilious, abdominal drains draining serosanguineous. hd cath removed, bumex dc'ed. cpap tomorrow 06/24 - patient seen and examined, abdominal drains around 20 cc each, NG draining bilious, ileostomy started to put blackish output, NPO, NG to LIS, off sedation except fentanyl, patient opening eyes to commands, briefly, CPAP trial tomorrow. [employer] started Lasix 40 mg IV daily 06/25 - patient alert, follows command but weak, CPAP - nif -21, tv 500s, terminated, cpap tomorrow, u/o 2300, hb downtrending to 8.5 - therapeutic lovenox dc'ed Objective vital signs Vital Sign Date Time Temp Pulse Resp B/P (MAP) Pulse Ox O2 Delivery O2 Flow Rate FiO2 06/25/25 15:29 112 25 171/75 (107) 100 30 06/25/25 14:00 Mechanical Ventilator+ 06/25/25 08:00 97.8 97.8 Total Intake and Output 06/24/25 06/24/25 06/25/25 14:59 22:59 06:59 Intake Total 844.78 ml 635.44 ml 702.28 ml Output Total 1585 ml 1250 ml Balance 844.78 ml -949.56 ml -547.72 ml medications Current Medications Medications Dose Ordered Sig/Bárbara Route Start Time Stop Time Status Last Admin Dose Admin Ondansetron HCl 4 mg Q4HP PRN IV 06/09/25 01:00 Cancel Acetaminophen 650 mg Q6HP PRN PO 06/09/25 01:00 06/10/25 20:15 650 MG Nitroglycerin 0.4 mg Q5MINP PRN SL 06/09/25 01:00 Propofol 100 ml @ 2.16 mls/hr Q24H IV 06/11/25 12:00 06/21/25 12:23 4.32 MLS/HR Fentanyl Citrate 250 ml @ 2.5 mls/hr Q24H IV 06/11/25 12:00 06/25/25 09:30 10 MLS/HR Midazolam HCl 50 ml @ 1 mls/hr Q24H IV 06/11/25 14:45 06/23/25 07:44 2 MLS/HR Ipratropium [place] 0.5 mg Q6HR NEB 06/14/25 10:15 06/25/25 11:30 0.5 MG Levalbuterol HCl 1.25 mg Q6HR NEB 06/15/25 00:00 06/25/25 11:30 1.25 MG Sodium Bicarbonate 75 ml/ Dextrose 1,075 ml @ 700 mls/hr Q1H33M IV 06/16/25 17:15 06/16/25 18:47 Cancel Pantoprazole Sodium 40 mg BID IV 06/17/25 10:00 06/25/25 10:51 40 MG Vancomycin HCl 0 ml @ 0 mls/hr UD IV 06/17/25 11:45 Bumetanide 1 mg BIDD IV 06/17/25 18:00 Cancel Micafungin Sodium 100 mg/Sodium Chloride 100 ml @ 100 mls/hr DAILY IV 06/19/25 10:00 06/25/25 10:00 100 MLS/HR Amino Acids 0 ml @ 0 mls/hr PER PHARMACY IV 06/18/25 12:15 Diagnostic Test (Pha) 1 strip Q6HR 06/19/25 00:00 06/25/25 12:01 1 STRIP Insulin Human Regular FOLLOW SLIDING SCALE Q6HR SC 06/19/25 00:00 06/25/25 12:38 4 UNITS Dextrose 50 ml UD IV 06/18/25 22:00 Amiodarone HCL/ Dextrose 200 ml @ 16.66 mls/ hr Q12H IV 06/20/25 05:00 06/24/25 19:56 16.66 MLS/HR Meropenem 50 ml @ 17 mls/hr DAILY@0100 IV 06/21/25 01:00 Cancel Meropenem 50 ml @ 17 mls/hr Q12HR IV 06/20/25 13:00 06/25/25 10:00 17 MLS/HR Furosemide 40 mg DAILY IV 06/24/25 10:00 06/25/25 10:00 40 MG Sodium Chloride 40 meq/Potassium Chloride 80 meq/ Magnesium Sulfate 10 meq/ Multivitamins 10 ml/Chromium/ Copper/Manganese/ Zinc 1 ml/Insulin Human Regular 7 units/Amino Acids/ Dextrose 1,263.57 ml @ 53 mls/hr [id number] IV 06/24/25 22:00 06/25/25 21:59 06/24/25 20:52 53 MLS/HR Potassium Chloride 80 meq/ Multivitamins 10 ml/Chromium/ Copper/Manganese/ Zinc 1 ml/Insulin Human Regular 8 units/Magnesium Sulfate 12 meq/ Amino Acids/ Dextrose 1,254.08 ml @ 52 mls/hr Q24H8M IV 06/25/25 22:00 06/26/25 21:59 Examination Morbidly obese female patient lying in the bed intubated and mechanically ventilated, RASS -2 General: Morbidly obese, afebrile, palor, mucosae are moist. Generalized anasarca. Cardiovascular: Tachycardic and irregular S1 and S2. No murmurs, gallops or rubs. No JVD elevation. 1+ pitting edema bilaterally Respiratory: Decreased bilateral air entry, coarse crackles bilateral lower lobe Abdomen: Drains attached to abdomen, non grimacing, nondistended, hypoactive bowel sounds, ileostomy with blackish output, stoma red. Rectal exam completed, shows liquid stool in the vault, no masses felt, stool color reddish Genitourinary: DC Right femoral hemodialysis, Engel seen MSK/skin: Skin is dry and warm Neurological: Intact gag/pupillary light reflex Pupils are isocoric and reactive. laboratory and microbiology Laboratory Tests 06/25/25 03:41 Test 06/25/25 03:41 Range/Units Serum Glucose 133 H 74-106 mg/dL Microbiology Date/Time Source Procedure Growth Status 06/17/25 07:00 Stool Stool Culture - Final Complete 06/17/25 07:00 Stool Shiga Toxin I & II - Final Complete 06/16/25 10:30 Blood Blood Culture - Final NO GROWTH AFTER 5 DAYS OF INCUBATION. Complete 06/11/25 14:25 Nose MRSA Screen - Final Complete Labs and/or images reviewed: Labs reviewed by me, Image(s) reviewed by me Problem List/Assessment/Plan Problem List/Assessment/Plan NEURO: Intubated, on sedatives CARDIOVASCULAR: Acute on chronic heart failure with preserved ejection fraction exacerbation Paroxysmal Atrial fibrillation with RVR Pulmonary edema Severe aortic insufficiency, mitral valve insufficiency, tricuspid regurg Per Cardiology:patient underwent a transesophageal echocardiogram on 03/26/2025 which revealed an EF of 60% with severe aortic insufficiency and with moderate mitral insufficiency. Continue with Preload and afterload reduction. ([id number]- VASc Score 2 points, HAS-BLED Score 0 points): We will recommend to continue antiarrhythmic therapy with amiodarone, DOAC therapy with Eliquis, and beta- octavio for rate control . Outpatient follow up with Dr. Melo in [place] for aortic valve replacement with possible TAVR as well as possible mitral clip. She has seen public health professor in [place] one time and underwent a EBENEZER. The patient is scheduled to have a right and left heart catheterization later this month for TAVR workup. Discontinued P.o. amlodipine, p.o. Coreg IV amiodarone protocol started 06/14 Lasix 40 IV daily Discontinued Solu-Medrol Hold off Lovenox 90 mg b.i.d. given downtrending hb PULMONARY: Acute hypoxic respiratory failure status post intubation 06/11 Hx of Pna and intubation 2022 Sepsis secondary to Acute Gram-positive and Gram-negative pneumonia Likely COPD on 4L home O2 Chronic oxygen dependence History of asthma Discontinued IV doxycycline, added zosyn 06/16, started IV vancomycin and IV meropenem 06/17, added micafungin 06/18 Nebulized treatments GASTROINTESTINAL: Pneumatosis intestinalis and megacolon likely ischemic bowel Perforation and peritonitis Anion gap metabolic acidosis Status s/p laparotomy, subtotal colectomy 06/17, resection of descending colon 06/19, ileocolic anastomosis with protective loop ileostomy, drain placement 06/20 Transaminitis, likely nonalcoholic steatohepatitis liver ultrasound shows hepatic steatosis CT abdomen completed, showed Significant dilation of the colon measuring up to 8 cm with possible pneumatosis intestinalis along the ascending colon versus non dependent air. Evidence of portal venous gas. Imaging findings elevate concern for bowel ischemia of the ascending colon/cecum. Surgeon - strict NPO, NG tube to LIS, wound VAC for midline wound GENITOURINARY: NYASIA secondary to hemodynamically mediated/VMN requiring hemodialysis 06/20 ? Chronic kidney disease Anemia of CKD Kidney ultrasound shows Normal sonographic appearance of the kidneys. No hydronephrosis. 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 given downtrending hb GI prophylaxis: Protonix IV b.i.d. Bowel regimen: Lactulose discontinued Code status: Full code LINES/DRAINS/ACCESS: IV access: Right IJ 06/11, A-line 06/19 Drips: Versed, fentanyl, Levophed Engel catheter DISPOSITION: ICU Patient's status discussed with the patient's spouse at bedside, nurse in which all questions have been answered Critical care time spent more than 81 minutes, including CPAP trial, patient care, chart review, and updating the family. Excluding any procedures Case discussed with Dr. Cruz Plan discussed with: Other (mother at bedside) My Orders My Orders Orders - MARCELLO BURDEN RESIDENT Procedure Category Date Status Time Abg W/ Co-Ox RT 06/25/25 Logged 04:00 Chest Xray 1 View XY 06/25/25 Resulted 04:00 Comprehensive LAB 06/26/25 Verified Metabolic Panel 04:00 Magnesium LAB 06/26/25 Verified 04:00 Phosphorus LAB 06/26/25 Verified 04:00 Triglycerides LAB 06/26/25 Verified 04:00 Amino Acid PHA 06/25/25 In Process Infusion... 22:00 Abg W/ Co-Ox RT 06/25/25 Logged 10:40 Tpn Per Pharmacy DEANDRA 06/25/25 In Process 22:00 Dietary Evaluation Review Comments: 1) If patient remains NPO > 7 days, consider EN/TPN to meet at least 75% of estimated daily needs 2) If gut is preferred, consider Nepro @ 25 mL/hr goal rate as tolerated. Flush with 200 mL free H2O Q6H. TF regimen will provide 1080 kcals, 49g Pro, and 1236 mL free H2O per 24 hrs. TF regimen will meet ~ 92% estimated energy needs and 52% estimated protein needs. 3) Advance to 60g CCHO renal cardiac diet when medically feasible, pending ST approval 4) Refer to outpatient RD/CDCES for weight management 5) Follow-up with cardiology, pulmonology, or nephrology 6) Continue to monitor I&O, labs, and skin integrity Expected Outcomes/Goals: 1) patient to receive nutritional support within 7 days of NPO status 2) labs to improve 3) diet to advance 4) f/u in 2-3 days Sepsis reassessment post fluid Capillary Refill: < 3 seconds Date of Service: Jun 25, 2025 Billing Provider: GIA CRUZ MD Common Visit Codes: NOT BILLABLE MARCELLO BURDEN RESIDENT Jun 25, 2025 16:06 GIA CRUZ MD Jul 22, 2025 16:20
--- NOTE | 2025-06-25 18:17 | DVHPN2 ---
Progress Note Date Seen: Jun 25, 2025 Medical Necessity Reason Pt with a Central, PICC or Fol: Yes The following are medically ne: Central Line, Engel Catheter Subjective Patient reports: Other (no events) Review of Systems: Deferred Objective vital signs Vital Sign Date Time Temp Pulse Resp B/P (MAP) Pulse Ox O2 Delivery O2 Flow Rate FiO2 06/25/25 15:29 112 25 171/75 (107) 100 30 06/25/25 14:00 Mechanical Ventilator+ 06/25/25 08:00 97.8 97.8 Total Intake and Output 06/24/25 06/24/25 06/25/25 15:00 23:00 07:00 Intake Total 842.28 ml 647.44 ml 699.78 ml Output Total 1585 ml 1250 ml Balance 842.28 ml -937.56 ml -550.22 ml medications Current Medications Medications Dose Ordered Sig/Bárbara Route Start Time Stop Time Status Last Admin Dose Admin Ondansetron HCl 4 mg Q4HP PRN IV 06/09/25 01:00 Cancel Acetaminophen 650 mg Q6HP PRN PO 06/09/25 01:00 06/10/25 20:15 650 MG Nitroglycerin 0.4 mg Q5MINP PRN SL 06/09/25 01:00 Propofol 100 ml @ 2.16 mls/hr Q24H IV 06/11/25 12:00 06/21/25 12:23 4.32 MLS/HR Fentanyl Citrate 250 ml @ 2.5 mls/hr Q24H IV 06/11/25 12:00 06/25/25 09:30 10 MLS/HR Midazolam HCl 50 ml @ 1 mls/hr Q24H IV 06/11/25 14:45 06/23/25 07:44 2 MLS/HR Ipratropium [place] 0.5 mg Q6HR NEB 06/14/25 10:15 06/25/25 11:30 0.5 MG Levalbuterol HCl 1.25 mg Q6HR NEB 06/15/25 00:00 06/25/25 11:30 1.25 MG Sodium Bicarbonate 75 ml/ Dextrose 1,075 ml @ 700 mls/hr Q1H33M IV 06/16/25 17:15 06/16/25 18:47 Cancel Pantoprazole Sodium 40 mg BID IV 06/17/25 10:00 06/25/25 10:51 40 MG Vancomycin HCl 0 ml @ 0 mls/hr UD IV 06/17/25 11:45 Bumetanide 1 mg BIDD IV 06/17/25 18:00 Cancel Micafungin Sodium 100 mg/Sodium Chloride 100 ml @ 100 mls/hr DAILY IV 06/19/25 10:00 06/25/25 10:00 100 MLS/HR Amino Acids 0 ml @ 0 mls/hr PER PHARMACY IV 06/18/25 12:15 Diagnostic Test (Pha) 1 strip Q6HR 06/19/25 00:00 06/25/25 12:01 1 STRIP Insulin Human Regular FOLLOW SLIDING SCALE Q6HR SC 06/19/25 00:00 06/25/25 12:38 4 UNITS Dextrose 50 ml UD IV 06/18/25 22:00 Amiodarone HCL/ Dextrose 200 ml @ 16.66 mls/ hr Q12H IV 06/20/25 05:00 06/25/25 08:00 16.66 MLS/HR Meropenem 50 ml @ 17 mls/hr DAILY@0100 IV 06/21/25 01:00 Cancel Meropenem 50 ml @ 17 mls/hr Q12HR IV 06/20/25 13:00 06/25/25 10:00 17 MLS/HR Furosemide 40 mg DAILY IV 06/24/25 10:00 06/25/25 10:00 40 MG Sodium Chloride 40 meq/Potassium Chloride 80 meq/ Magnesium Sulfate 10 meq/ Multivitamins 10 ml/Chromium/ Copper/Manganese/ Zinc 1 ml/Insulin Human Regular 7 units/Amino Acids/ Dextrose 1,263.57 ml @ 53 mls/hr [id number] IV 06/24/25 22:00 06/25/25 21:59 06/24/25 20:52 53 MLS/HR Potassium Chloride 80 meq/ Multivitamins 10 ml/Chromium/ Copper/Manganese/ Zinc 1 ml/Insulin Human Regular 8 units/Magnesium Sulfate 12 meq/ Amino Acids/ Dextrose 1,254.08 ml @ 52 mls/hr Q24H8M IV 06/25/25 22:00 06/26/25 21:59 Examination: LUNGS:Abnormal, MSK:Abnormal, SKIN:Abnormal laboratory and microbiology Laboratory Tests 06/25/25 03:41 Test 06/25/25 03:41 Range/Units Serum Glucose 133 H 74-106 mg/dL Microbiology Date/Time Source Procedure Growth Status 06/17/25 07:00 Stool Stool Culture - Final Complete 06/17/25 07:00 Stool Shiga Toxin I & II - Final Complete 06/16/25 10:30 Blood Blood Culture - Final NO GROWTH AFTER 5 DAYS OF INCUBATION. Complete 06/11/25 14:25 Nose MRSA Screen - Final Complete Problem List/Assessment/Plan Problem List/Assessment/Plan Acute kidney injury on chronic kidney disease stage IIIA secondary to hemodynamic mediated, FeNa > 2% status post intermittent HD 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 Flush with 200 mL free H2O Q6H. TF regimen will provide 1080 kcals, 49g Pro, and 1236 mL free H2O per 24 hrs. TF regimen will meet ~ 92% estimated energy needs and 52% estimated protein needs. 3) [facility] when medically feasible, pending ST approval 4) Refer to outpatient RD/[facility] for weight management 5) Follow-up with cardiology, pulmonology, or nephrology 6) Continue to monitor I&O, labs, and skin integrity Expected Outcomes/Goals: 1) patient to receive nutritional support within 7 days of NPO status 2) labs to improve 3) diet to advance 4) f/u in 2-3 days Sepsis reassessment post fluid Capillary Refill: < 3 seconds ANGELICA NASH MD Jun 25, 2025 18:17
[2025-06-25] MEDS: TPN PER PHARMACY IV NR (20:43)
--- NOTE | 2025-06-25 23:21 | DVHPN2 ---
Progress Note - Dictate Date Seen: Jun 25, 2025 Medical Necessity Reason Pt with a Central, PICC or Fol: Yes The following are medically ne: Central Line, Engel Catheter Subjective Patient was seen and evaluated in follow up in the ICU. Patient is intubated on ventilator. 30% FiO2. Patient is off sedation. Patient is tachycardic despite receiving Amiodarone. WBC 11.8, HGB 7.5, HCT 23.7, BUN 65, FIELD [employer] 1.67, CA 8.5. Chest x-ray shows slightly lower lung volumes. vital signs Vital Sign Date Time Temp Pulse Resp B/P (MAP) Pulse Ox O2 Delivery O2 Flow Rate FiO2 06/25/25 12:00 126 06/25/25 12:00 20 100 Mechanical Ventilator+ 30 30 06/25/25 10:54 157/60 (92) 06/25/25 04:00 98.1 98.1 Total Intake and Output 06/24/25 06/24/25 06/25/25 15:00 23:00 07:00 Intake Total 842.28 ml 647.44 ml 699.78 ml Output Total 1585 ml 1250 ml Balance 842.28 ml -937.56 ml -550.22 ml medications Current Medications Medications Dose Ordered Sig/Bárbara Route Start Time Stop Time Status Last Admin Dose Admin Ondansetron HCl 4 mg Q4HP PRN IV 06/09/25 01:00 Cancel Acetaminophen 650 mg Q6HP PRN PO 06/09/25 01:00 06/10/25 20:15 650 MG Nitroglycerin 0.4 mg Q5MINP PRN SL 06/09/25 01:00 Propofol 100 ml @ 2.16 mls/hr Q24H IV 06/11/25 12:00 06/21/25 12:23 4.32 MLS/HR Fentanyl Citrate 250 ml @ 2.5 mls/hr Q24H IV 06/11/25 12:00 06/25/25 09:30 10 MLS/HR Midazolam HCl 50 ml @ 1 mls/hr Q24H IV 06/11/25 14:45 06/23/25 07:44 2 MLS/HR Ipratropium [place] 0.5 mg Q6HR NEB 06/14/25 10:15 06/25/25 11:30 0.5 MG Levalbuterol HCl 1.25 mg Q6HR NEB 06/15/25 00:00 06/25/25 11:30 1.25 MG Sodium Bicarbonate 75 ml/ Dextrose 1,075 ml @ 700 mls/hr Q1H33M IV 06/16/25 17:15 06/16/25 18:47 Cancel Pantoprazole Sodium 40 mg BID IV 06/17/25 10:00 06/25/25 10:51 40 MG Vancomycin HCl 0 ml @ 0 mls/hr UD IV 06/17/25 11:45 Bumetanide 1 mg BIDD IV 06/17/25 18:00 Cancel Micafungin Sodium 100 mg/Sodium Chloride 100 ml @ 100 mls/hr DAILY IV 06/19/25 10:00 06/25/25 10:00 100 MLS/HR Amino Acids 0 ml @ 0 mls/hr PER PHARMACY IV 06/18/25 12:15 Diagnostic Test (Pha) 1 strip Q6HR 06/19/25 00:00 06/25/25 12:01 1 STRIP Insulin Human Regular FOLLOW SLIDING SCALE Q6HR SC 06/19/25 00:00 06/25/25 05:52 2 UNITS Dextrose 50 ml UD IV 06/18/25 22:00 Amiodarone HCL/ Dextrose 200 ml @ 16.66 mls/ hr Q12H IV 06/20/25 05:00 06/24/25 19:56 16.66 MLS/HR Meropenem 50 ml @ 17 mls/hr DAILY@0100 IV 06/21/25 01:00 Cancel Meropenem 50 ml @ 17 mls/hr Q12HR IV 06/20/25 13:00 06/25/25 10:00 17 MLS/HR Furosemide 40 mg DAILY IV 06/24/25 10:00 06/25/25 10:00 40 MG Sodium Chloride 40 meq/Potassium Chloride 80 meq/ Magnesium Sulfate 10 meq/ Multivitamins 10 ml/Chromium/ Copper/Manganese/ Zinc 1 ml/Insulin Human Regular 7 units/Amino Acids/ Dextrose 1,263.57 ml @ 53 mls/hr [id number] IV 06/24/25 22:00 06/25/25 21:59 06/24/25 20:52 53 MLS/HR Potassium Chloride 80 meq/ Multivitamins 10 ml/Chromium/ Copper/Manganese/ Zinc 1 ml/Insulin Human Regular 8 units/Magnesium Sulfate 12 meq/ Amino Acids/ Dextrose 1,254.08 ml @ 52 mls/hr Q24H8M IV 06/25/25 22:00 06/26/25 21:59 objective GENERAL: Ill appearing, intubated on ventilator. EYES: PERRL, EOMI. Anicteric. HENT: Moist mucous membranes. LUNGS: Decreased breath sounds. CARDIOVASCULAR: Regular rate and rhythm. ABDOMEN: Soft, nontender and nondistended. EXTREMITIES: No edema. NEUROLOGIC: No focal neurological deficits. SKIN: Warm, dry. laboratory and microbiology Laboratory Tests 06/25/25 03:41 Test 06/25/25 03:41 Range/Units Serum Glucose 133 H 74-106 mg/dL Problem List Chronic HFpEF, NYHA class IV. Paroxysmal atrial fibrillation, stage III, now NSR (on amiodarone/Elqiuis therapy). Severe aortic valve and mitral valve insufficiency. Acute hypoxic respiratory failure. Asthma. Chronic kidney disease. Thyroid disease. Prediabetes, newly diagnosed. Morbid obesity. History of tobacco use. Assessment/Plan Continued all current supportive medical care. Diuretics with Lasix. IV antibiotics as ordered. GI prophylactics. Nebulized breathing treatments. Additional plan as per the hospital course. Critical care time of 45 minutes provided to include time spent evaluation of patient at bedside, when appropriate patient/family education for diagnosis, treatment plan, review of pertinent medical information and discussion of care with specialty providers and PCP. Mechanical ventilator parameters, treatment and adjustments have personally been reviewed by me and treatment plan by manager shipping has also been reviewed. Dietary Evaluation Review Comments: 1) If patient remains NPO > 7 days, consider EN/TPN to meet at least 75% of estimated daily needs 2) If gut is preferred, consider Nepro @ 25 mL/hr goal rate as tolerated. Flush with 200 mL free H2O Q6H. TF regimen will provide 1080 kcals, 49g Pro, and 1236 mL free H2O per 24 hrs. TF regimen will meet ~ 92% estimated energy needs and 52% estimated protein needs. 3) Advance to 60g CCHO renal cardiac diet when medically feasible, pending ST approval 4) Refer to outpatient RD/CD[facility] for weight management 5) Follow-up with cardiology, pulmonology, or nephrology 6) Continue to monitor I&O, labs, and skin integrity Expected Outcomes/Goals: 1) patient to receive nutritional support within 7 days of NPO status 2) labs to improve 3) diet to advance 4) f/u in 2-3 days Plan discussed with: Other Capillary Refill: < 3 seconds URBANO TRUONG MD Jun 25, 2025 12:28
[2025-06-26] VITALS (103 sets, daily range): BP systolic 85–165; BP diastolic 35–96; PULSE 81–149; RESP 14–27; TEMP 97.9–99.1; O2SAT 95–100
[2025-06-26 04:17] LABS: Hematocrit 23.9 % (36.0-46.0); Hemoglobin 7.6 g/dL (12.2-16.2); Mean Corpuscular Hemoglobin 27.8 pg (28.0-32.0); Mean Corpuscular Volume 87.4 fL (80.0-100.0)
[2025-06-26 04:18] LABS: Alanine Aminotransferase 22 U/L (7-40); Alkaline Phosphatase 108 U/L (46-116); Anion Gap 10 (5-15); BUN/Creatinine Ratio 47.3 (10.0-20.0); Carbon Dioxide 27 mmol/L (20-31); Magnesium 1.7 mg/dL (1.6-2.6); Potassium 3.5 mmol/L (3.5-5.1)
[2025-06-26 04:19] LABS: Bilirubin, Total 0.3 mg/dL (0.2-1.0)
[2025-06-26 04:31] LABS: Albumin 2.5 g/dL (3.2-4.8); Blood Urea Nitrogen 70 mg/dL (9-23); Calcium 8.5 mg/dL (8.7-10.4); Chloride 109 mmol/L (98-107); Glucose 127 mg/dL (74-106); Sodium 146 mmol/L (136-145); Total Protein 5.1 g/dL (5.7-8.2); Triglycerides 180 mg/dL (< 150)
--- NOTE | 2025-06-26 06:36 | DVH ---
CHEST RADIOGRAPH Indication: intubated Technique: Single frontal view of the chest was obtained COMPARISON: XY CHEST XRAY 1 VIEW on DOS: 06/25/25, XY CHEST XRAY 1 VIEW on DOS: 06/24/25, XY CHEST XRAY 1 VIEW on DOS: 06/23/25, XY CHEST XRAY 1 VIEW on DOS: 06/22/25, XY CHEST PORTABLE on DOS: 06/21/25 FINDINGS: Lines and Tubes: Slight interval retraction of the endotracheal tube such that the tip now projects a pproximately 3.1 cm above the level of the donna. Remaining lines and tubes unchanged. Lungs: Clear Pleura: No effusion. No pneumothorax. Cardiomediastinal contours: Cardiomegaly. Bones: Unremarkable IMPRESSION: 1. Slight interval retraction of the endotracheal tube such that the tip now projects approximately 3 .1 cm above the level donna. Remaining lines and tubes unchanged. 2. Cardiomegaly.
[2025-06-26 06:46] LABS: Total Cells Counted 100.0 (100)
[2025-06-26 08:59] LABS: Base Excess 2.7 mmol/L (-2.0-3.0)
--- NOTE | 2025-06-26 11:53 | DVHPN2 ---
Subjective Patient denies any symptoms. Reviewed: Care Plan, H&P, Labs, Medications, Previous Orders, Radiology Changes from previous H/P or p: No Changes General: Per HPI Objective Vitals Vital Signs Date Time Temp Pulse Resp B/P (MAP) Pulse Ox O2 Delivery O2 Flow Rate FiO2 06/26/25 10:00 139/57 06/26/25 09:15 92 16 100 30 06/26/25 08:00 Mechanical Ventilator+ 06/26/25 03:30 98.1 98.1 Intake/Output Intake and Output 06/26/25 07:00 Intake Total 1919.265 ml Output Total 3015 ml Balance -1095.735 ml Intake Oral 0 ml IV Total 1919.265 ml Output Urine Total 2650 ml Stool Total 65 ml Gastric Drainage Total 30 ml Drainage Total 270 ml # Bowel Movements 1 General Appearance: Alert, mild distress HEENT: Atraumatic, PERRLA, Other (ETT tube intact) Neck: Supple Lungs: Other (Decreased breath sounds bilateral, rhonchi and crackles bilateral) Cardiovascular: Regular rate, Normal S1, Normal S2, No murmurs, Gallops, Rubs Abdomen: Normal bowel sounds, Soft, No tenderness, Other (Abdominal dressing dry and intact) Skin: Dry, Intact Psych/Mental Status: Mental status NL, Mood NL Medications Current Medications Medications Dose Ordered Sig/Bárbara Route Start Time Stop Time Status Last Admin Dose Admin Ondansetron HCl 4 mg Q4HP PRN IV 06/09/25 01:00 Cancel Acetaminophen 650 mg Q6HP PRN PO 06/09/25 01:00 06/10/25 20:15 650 MG Nitroglycerin 0.4 mg Q5MINP PRN SL 06/09/25 01:00 Propofol 100 ml @ 2.16 mls/hr Q24H IV 06/11/25 12:00 06/21/25 12:23 4.32 MLS/HR Fentanyl Citrate 250 ml @ 2.5 mls/hr Q24H IV 06/11/25 12:00 06/26/25 03:13 17.5 MLS/HR Midazolam HCl 50 ml @ 1 mls/hr Q24H IV 06/11/25 14:45 06/23/25 07:44 2 MLS/HR Ipratropium [place] 0.5 mg Q6HR NEB 06/14/25 10:15 06/26/25 11:26 0.5 MG Levalbuterol HCl 1.25 mg Q6HR NEB 06/15/25 00:00 06/26/25 11:26 1.25 MG Sodium Bicarbonate 75 ml/ Dextrose 1,075 ml @ 700 mls/hr Q1H33M IV 06/16/25 17:15 06/16/25 18:47 Cancel Pantoprazole Sodium 40 mg BID IV 06/17/25 10:00 06/26/25 11:43 40 MG Vancomycin HCl 0 ml @ 0 mls/hr UD IV 06/17/25 11:45 Bumetanide 1 mg BIDD IV 06/17/25 18:00 Cancel Micafungin Sodium 100 mg/Sodium Chloride 100 ml @ 100 mls/hr DAILY IV 06/19/25 10:00 06/26/25 11:42 100 MLS/HR Amino Acids 0 ml @ 0 mls/hr PER PHARMACY IV 06/18/25 12:15 Diagnostic Test (Pha) 1 strip Q6HR 06/19/25 00:00 06/26/25 05:42 1 STRIP Insulin Human Regular FOLLOW SLIDING SCALE Q6HR SC 06/19/25 00:00 06/26/25 00:36 2 UNITS Dextrose 50 ml UD IV 06/18/25 22:00 Amiodarone HCL/ Dextrose 200 ml @ 16.66 mls/ hr Q12H IV 06/20/25 05:00 06/25/25 20:05 16.66 MLS/HR Meropenem 50 ml @ 17 mls/hr DAILY@0100 IV 06/21/25 01:00 Cancel Meropenem 50 ml @ 17 mls/hr Q12HR IV 06/20/25 13:00 06/26/25 11:42 17 MLS/HR Furosemide 40 mg DAILY IV 06/24/25 10:00 06/26/25 10:00 40 MG Potassium Chloride 80 meq/ Multivitamins 10 ml/Chromium/ Copper/Manganese/ Zinc 1 ml/Insulin Human Regular 8 units/Magnesium Sulfate 12 meq/ Amino Acids/ Dextrose 1,254.08 ml @ 52 mls/hr Q24H8M IV 06/25/25 22:00 06/26/25 21:59 06/25/25 20:43 52 MLS/HR Potassium Acetate 80 meq/Magnesium Sulfate 16 meq/ Multivitamins 10 ml/Chromium/ Copper/Manganese/ Zinc 1 ml/Insulin Human Regular 8 units/Amino Acids/ Dextrose 1,355.08 ml @ 56 mls/hr [id number] IV 06/26/25 22:00 06/27/25 21:59 Laboratory Results Laboratory Tests 06/26/25 03:20 Chemistry Test 06/26/25 03:20 Albumin 2.5 g/dL (3.2-4.8) L Calcium Level 8.5 mg/dL (8.7-10.4) L Magnesium Level 1.7 mg/dL (1.6-2.6) Phosphorus Level 3.4 mg/dL (2.4-5.1) Total Protein 5.1 g/dL (5.7-8.2) L Lipid panel Test 06/26/25 03:20 Triglycerides Level 180 mg/dL (< 150) H LFT Test 06/26/25 03:20 Alanine Aminotransferase (ALT) 22 U/L (7-40) Alkaline Phosphatase 108 U/L (46-116) Aspartate Amino Transferase (AST) 33 U/L (13-40) Total Bilirubin 0.3 mg/dL (0.2-1.0) Urinalysis Test 06/09/25 16:55 06/14/25 11:50 Urine Color Colorless (Yellow) Urine Clarity Clear (Clear) Urine pH 5.5 (5.0-9.0) Urine Specific [place] 1.007 (1.001-1.035) Urine Protein Negative (Negative) Urine Ketones Negative (Negative) Urine Blood 2+ /uL (Negative) H Urine Nitrite Negative (Negative) Urine Bilirubin Negative (Negative) Urine Urobilinogen Normal mg/dL (Negative) Urine Leukocyte Esterase Negative /uL (Negative) Urine RBC 38 /hpf (0 - 4) Urine Microscopic WBC 1 /HPF (0-5) Urine Squamous Epithelial Cells Few /hpf (<5) Urine Bacteria None seen /hpf (None Seen) Urine Glucose Normal mg/dL (Normal) Urine Creatinine 27.77 mg/dL (30.0-125.0) L Urine Protein/Creatinine Ratio 1.72 Urine Sodium 73 mmol/L (40-220) Urine Total Protein 47.7 mg/dL (1-14) H Blood Gas Results Test 06/26/25 08:53 Arterial Blood pH 7.436 (7.350-7.450) FiO2 % 30.0 Microbiology Microbiology Date/Time Source Procedure Growth Status 06/17/25 07:00 Stool Stool Culture - Final Complete 06/17/25 07:00 Stool Shiga Toxin I & II - Final Complete 06/16/25 10:30 Blood Blood Culture - Final NO GROWTH AFTER 5 DAYS OF INCUBATION. Complete 06/11/25 14:25 Nose MRSA Screen - Final Complete Labs and/or images reviewed: Labs reviewed by me, Image(s) reviewed by me Assessment/Plan Assessment/Plan Impression: -acute hypoxic respiratory failure -status post bowel resection, secondary to ischemic megacolon -obesity -AFib with RVR -acute kidney injury, vasomotor nephropathy -sepsis -anemia Plan: -patient with spontaneous breathing trial, plans for extubation -continue antimicrobial therapy with micafungin, Merrem panel -continue Protonix -NG to low intermittent suction -continue amiodarone drip -pain management , start IV morphine given fentanyl drip will be stopped -bronchodilators -continue TPN -repeat labs, chest x-ray in a.m. Critical care time spent with patient discussing and formulating plan of care: 40 minutes. This does not include time spent performing procedures. This medical document was created using an electronic medical record system with [employer] dictation system. Although this document has been carefully reviewed, there may still be some phonetic and typographical errors. These areas are purely typographical due to imperfections of the software programs, and do not reflect any compromise in the patient's medical care. Plan discussed with: Patient, Other (RN) My Orders Orders - SLIM ANAND NP Procedure Category Date Status Time Morphine Sulfate PHA 06/26/25 Transmitted Injection 11:45 Date of Service: Jun 26, 2025 Billing Provider: SLIM ANAND NP Common Visit Codes: 87124-[id number] CARE 30-74 MIN SLIM ANAND NP Jun 26, 2025 11:53
[2025-06-26] MEDS: POTASSIUM CHL 20MEQ/100ML 100 ML IV ONE (12:52)
[2025-06-26] MEDS ORDERED: HYDROcodone-ACET 5/325MG TAB PO PRN (13:40)
--- NOTE | 2025-06-26 15:23 | DVHPN2 ---
Progress Note Date Seen: Jun 26, 2025 Medical Necessity Reason Pt with a Central, PICC or Fol: Yes The following are medically ne: Central Line, Engel Catheter Subjective Patient reports: Other (extubated) Review of Systems: Deferred Objective vital signs Vital Sign Date Time Temp Pulse Resp B/P (MAP) Pulse Ox O2 Delivery O2 Flow Rate FiO2 06/26/25 13:11 89 14 97/58 100 8.0 30 06/26/25 08:00 Mechanical Ventilator+ 06/26/25 03:30 98.1 98.1 Total Intake and Output 06/25/25 06/25/25 06/26/25 15:00 23:00 07:00 Intake Total 716.94 ml 671.425 ml 621.485 ml Output Total 1845 ml 1170 ml Balance 716.94 ml -1173.575 ml -548.515 ml medications Current Medications Medications Dose Ordered Sig/Bárbara Route Start Time Stop Time Status Last Admin Dose Admin Ondansetron HCl 4 mg Q4HP PRN IV 06/09/25 01:00 Cancel Acetaminophen 650 mg Q6HP PRN PO 06/09/25 01:00 06/10/25 20:15 650 MG Nitroglycerin 0.4 mg Q5MINP PRN SL 06/09/25 01:00 Midazolam HCl 50 ml @ 1 mls/hr Q24H IV 06/11/25 14:45 06/23/25 07:44 2 MLS/HR Ipratropium [place] 0.5 mg Q6HR NEB 06/14/25 10:15 06/26/25 11:26 0.5 MG Levalbuterol HCl 1.25 mg Q6HR NEB 06/15/25 00:00 06/26/25 11:26 1.25 MG Sodium Bicarbonate 75 ml/ Dextrose 1,075 ml @ 700 mls/hr Q1H33M IV 06/16/25 17:15 06/16/25 18:47 Cancel Pantoprazole Sodium 40 mg BID IV 06/17/25 10:00 06/26/25 11:43 40 MG Vancomycin HCl 0 ml @ 0 mls/hr UD IV 06/17/25 11:45 Bumetanide 1 mg BIDD IV 06/17/25 18:00 Cancel Micafungin Sodium 100 mg/Sodium Chloride 100 ml @ 100 mls/hr DAILY IV 06/19/25 10:00 06/26/25 11:42 100 MLS/HR Amino Acids 0 ml @ 0 mls/hr PER PHARMACY IV 06/18/25 12:15 Diagnostic Test (Pha) 1 strip Q6HR 06/19/25 00:00 06/26/25 12:00 1 STRIP Insulin Human Regular FOLLOW SLIDING SCALE Q6HR SC 06/19/25 00:00 06/26/25 12:51 2 UNITS Dextrose 50 ml UD IV 06/18/25 22:00 Amiodarone HCL/ Dextrose 200 ml @ 16.66 mls/ hr Q12H IV 06/20/25 05:00 06/25/25 20:05 16.66 MLS/HR Meropenem 50 ml @ 17 mls/hr DAILY@0100 IV 06/21/25 01:00 Cancel Meropenem 50 ml @ 17 mls/hr Q12HR IV 06/20/25 13:00 06/26/25 11:42 17 MLS/HR Potassium Chloride 80 meq/ Multivitamins 10 ml/Chromium/ Copper/Manganese/ Zinc 1 ml/Insulin Human Regular 8 units/Magnesium Sulfate 12 meq/ Amino Acids/ Dextrose 1,254.08 ml @ 52 mls/hr Q24H8M IV 06/25/25 22:00 06/26/25 21:59 06/25/25 20:43 52 MLS/HR Morphine Sulfate 1 mg Q4HP PRN IV 06/26/25 11:45 Fat Emulsion Intravenous 75 ml/ Potassium Acetate 65 meq/Potassium Phosphate 13.2 meq/Magnesium Sulfate 20 meq/ Multivitamins 10 ml/Chromium/ Copper/Manganese/ Zinc 1 ml/Insulin Human Regular 5 units/Amino Acids/ Dextrose 1,326.55 ml @ 55 mls/hr Q24H8M IV 06/26/25 22:00 06/27/25 21:59 Examination: GENERAL:Abnormal, LUNGS:Abnormal, MSK:Abnormal laboratory and microbiology Laboratory Tests 06/26/25 03:20 Test 06/26/25 03:20 Range/Units Serum Glucose 127 H 74-106 mg/dL Microbiology Date/Time Source Procedure Growth Status 06/17/25 07:00 Stool Stool Culture - Final Complete 06/17/25 07:00 Stool Shiga Toxin I & II - Final Complete 06/16/25 10:30 Blood Blood Culture - Final NO GROWTH AFTER 5 DAYS OF INCUBATION. Complete 06/11/25 14:25 Nose MRSA Screen - Final Complete Problem List/Assessment/Plan Problem List/Assessment/Plan Acute kidney injury on chronic kidney disease stage IIIA secondary to hemodynamic mediated, FeNa > 2% status post intermittent HD 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 Flush with 200 mL free H2O Q6H. TF regimen will provide 1080 kcals, 49g Pro, and 1236 mL free H2O per 24 hrs. TF regimen will meet ~ 92% estimated energy needs and 52% estimated protein needs. 3) Advance to 60g CCHO renal cardiac diet when medically feasible, pending ST approval 4) Refer to outpatient RD/[facility]CES for weight management 5) Follow-up with cardiology, pulmonology, or nephrology 6) Continue to monitor I&O, labs, and skin integrity Expected Outcomes/Goals: 1) patient to receive nutritional support within 7 days of NPO status 2) labs to improve 3) diet to advance 4) f/u in 2-3 days Sepsis reassessment post fluid Capillary Refill: < 3 seconds ANGELICA NASH MD Jun 26, 2025 15:23
--- NOTE | 2025-06-26 17:19 | DVHPN2 ---
Progress Note - Surgical Date Seen: Jun 26, 2025 Post op day Post op day: 9 Subjective Patient reports: Other (Patient got extubated throughout the day today, febrile tachycardic on amiodarone) Review of Systems: Deferred Objective Vital signs Vital Sign Date Time Temp Pulse Resp B/P (MAP) Pulse Ox O2 Delivery O2 Flow Rate FiO2 06/26/25 16:00 98.3 104 19 158/71 (100) 100 98.3 06/26/25 14:00 Cool Aerosol 10 30 30 Total Intake and Output 06/25/25 06/25/25 06/26/25 15:00 23:00 07:00 Intake Total 716.94 ml 671.425 ml 621.485 ml Output Total 1845 ml 1170 ml Balance 716.94 ml -1173.575 ml -548.515 ml Medications Current Medications Medications Dose Ordered Sig/Bárbara Route Start Time Stop Time Status Last Admin Dose Admin Ondansetron HCl 4 mg Q4HP PRN IV 06/09/25 01:00 Cancel Acetaminophen 650 mg Q6HP PRN PO 06/09/25 01:00 06/10/25 20:15 650 MG Nitroglycerin 0.4 mg Q5MINP PRN SL 06/09/25 01:00 Midazolam HCl 50 ml @ 1 mls/hr Q24H IV 06/11/25 14:45 06/23/25 07:44 2 MLS/HR Ipratropium [place] 0.5 mg Q6HR NEB 06/14/25 10:15 06/26/25 11:26 0.5 MG Levalbuterol HCl 1.25 mg Q6HR NEB 06/15/25 00:00 06/26/25 11:26 1.25 MG Sodium Bicarbonate 75 ml/ Dextrose 1,075 ml @ 700 mls/hr Q1H33M IV 06/16/25 17:15 06/16/25 18:47 Cancel Pantoprazole Sodium 40 mg BID IV 06/17/25 10:00 06/26/25 11:43 40 MG Vancomycin HCl 0 ml @ 0 mls/hr UD IV 06/17/25 11:45 Bumetanide 1 mg BIDD IV 06/17/25 18:00 Cancel Micafungin Sodium 100 mg/Sodium Chloride 100 ml @ 100 mls/hr DAILY IV 06/19/25 10:00 06/26/25 11:42 100 MLS/HR Amino Acids 0 ml @ 0 mls/hr PER PHARMACY IV 06/18/25 12:15 Diagnostic Test (Pha) 1 strip Q6HR 06/19/25 00:00 06/26/25 12:00 1 STRIP Insulin Human Regular FOLLOW SLIDING SCALE Q6HR SC 06/19/25 00:00 06/26/25 12:51 2 UNITS Dextrose 50 ml UD IV 06/18/25 22:00 Amiodarone HCL/ Dextrose 200 ml @ 16.66 mls/ hr Q12H IV 06/20/25 05:00 06/25/25 20:05 16.66 MLS/HR Meropenem 50 ml @ 17 mls/hr DAILY@0100 IV 06/21/25 01:00 Cancel Meropenem 50 ml @ 17 mls/hr Q12HR IV 06/20/25 13:00 06/26/25 11:42 17 MLS/HR Potassium Chloride 80 meq/ Multivitamins 10 ml/Chromium/ Copper/Manganese/ Zinc 1 ml/Insulin Human Regular 8 units/Magnesium Sulfate 12 meq/ Amino Acids/ Dextrose 1,254.08 ml @ 52 mls/hr Q24H8M IV 06/25/25 22:00 06/26/25 21:59 06/25/25 20:43 52 MLS/HR Morphine Sulfate 1 mg Q4HP PRN IV 06/26/25 11:45 Hold Fat Emulsion Intravenous 75 ml/ Potassium Acetate 65 meq/Potassium Phosphate 13.2 meq/Magnesium Sulfate 20 meq/ Multivitamins 10 ml/Chromium/ Copper/Manganese/ Zinc 1 ml/Insulin Human Regular 5 units/Amino Acids/ Dextrose 1,326.55 ml @ 55 mls/hr Q24H8M IV 06/26/25 22:00 06/27/25 21:59 Furosemide 20 mg BIDD IV 06/26/25 18:00 Acetaminophen/ Hydrocodone Bitart 1 tab Q4HPRN PRN PO 06/26/25 13:40 Acetaminophen/ Hydrocodone Bitart 1 tab Q4HP PRN PO 06/26/25 13:40 Laboratory Laboratory Tests 06/26/25 03:20 Test 06/26/25 03:20 Range/Units Serum Glucose 127 H 74-106 mg/dL Microbiology Date/Time Source Procedure Growth Status 06/17/25 07:00 Stool Stool Culture - Final Complete 06/17/25 07:00 Stool Shiga Toxin I & II - Final Complete 06/16/25 10:30 Blood Blood Culture - Final NO GROWTH AFTER 5 DAYS OF INCUBATION. Complete 06/11/25 14:25 Nose MRSA Screen - Final Complete Examination: GENERAL:Normal, ABDOMEN:Abnormal (Nondistended, midline wound with wound VAC placed healing very well without signs of infection, ileostomy with pink mucosa and bilious tinged fluid in place, bilateral drains with very minimal serosanguineous output, very minimal tenderness) Labs and/or images reviewed: Labs reviewed by me (Leukocytosis continues to downtrend) Problem List/Assessment/Plan Assessment and Plan Mrs. Penaloza is a 54-year-old female who has been in the hospital since June 08 due to pneumonia and CHF exacerbation that resulted in intubation. I was consulted on 06/17 due to severe colonic distention and pneumatosis seen on CT from that day. She ended receiving a subtotal colectomy colectomy, with primary ileocolic anastomosis and protective loop ileostomy. Interval: Patient doing well got extubated today. 65 mL of bilious fluid in ileostomy bag, ileostomy mucocele mucosa pink, drains with very minimal serosanguineous output. Okay for ice chips NPO pain meds Surgeries: 06/17: Exploratory laparotomy, subtotal colectomy (resection of ascending and transverse colon), temporary abdominal closure 06/19: Exploratory laparotomy, takedown of temporary abdominal dressing, wash out, resection of descending colon 06/20: Exploratory laparotomy, takedown of temporary abdominal dressing, washout, ileocolic anastomosis, protective loop ileostomy, drain placement x2, fascial closure 1. NPO except for ice chips NPO pain medicines 2. DC NG tube 3. Wound VAC for midline wound 4. Drain stripping and emptying once per shift and p.r.n. 5. Recommend continuation of TPN 6. Recommend continuation of IV antibiotics for a total of 7 days from the last surgery on 06/20 7. No GI cathartic medications My Orders My Orders Orders - SONAM ALCARAZ MD Procedure Category Date Status Time Hydrocodone-Acet PHA 06/26/25 In Process 5/325mg Tab ([place] 13:40 Hydrocodone-Acet PHA 06/26/25 In Process 10/325mg Tab ([place] 13:40 Npo Except For DEANDRA 06/26/25 In Process Medications 16:47 Npo Except Ice Chips DEANDRA 06/26/25 In Process 16:47 Npo (Nothing By DIET 06/26/25 Transmitted Mouth) Diet Dinner Plan discussed with Plan discussed with: Patient, Spouse Visit Coding Surgery Date of Service if different f: Jun 26, 2025 Billing Provider: SONAM ALCARAZ MD Surgery Visit Codes: [id number] INP/OBS CARE(HIGH) SONAM ALCARAZ MD Jun 26, 2025 17:19
[2025-06-26] MEDS: FUROSEMIDE 20 MG/2 ML VIAL IV SCH (18:02)
[2025-06-26] MEDS: VANCOMYCIN 500mg/100mL 100 ML IV ONE (18:05)
[2025-06-26] MEDS: HYDROcodone-ACET 10/325MG TAB PO PRN (18:29)
--- NOTE | 2025-06-26 20:33 | DVHPN2 ---
Progress Note - Dictate Date Seen: Jun 26, 2025 Medical Necessity Reason Pt with a Central, PICC or Fol: Yes The following are medically ne: Central Line, Engel Catheter Subjective Patient was seen and evaluated in follow up in the ICU. Patient is intubated on ventilator. 30% FiO2. Patient is undergoing CPAP trial. Remains on IV Amiodarone. WBC 11.1, HGB 7.6, HCT 23.9, NA 146, BUN 70, REFRIGERATOR ROOM CLERK 1.48, CA 8.5. Chest x-ray shows cardiomegaly. vital signs Vital Sign Date Time Temp Pulse Resp B/P (MAP) Pulse Ox O2 Delivery O2 Flow Rate FiO2 06/26/25 10:00 139/57 06/26/25 09:15 92 16 100 30 06/26/25 08:00 Mechanical Ventilator+ 06/26/25 03:30 98.1 98.1 Total Intake and Output 06/25/25 06/25/25 06/26/25 15:00 23:00 07:00 Intake Total 716.94 ml 671.425 ml 530.9 ml Output Total 1845 ml 1170 ml Balance 716.94 ml -1173.575 ml -639.1 ml medications Current Medications Medications Dose Ordered Sig/Bárbara Route Start Time Stop Time Status Last Admin Dose Admin Ondansetron HCl 4 mg Q4HP PRN IV 06/09/25 01:00 Cancel Acetaminophen 650 mg Q6HP PRN PO 06/09/25 01:00 06/10/25 20:15 650 MG Nitroglycerin 0.4 mg Q5MINP PRN SL 06/09/25 01:00 Midazolam HCl 50 ml @ 1 mls/hr Q24H IV 06/11/25 14:45 06/23/25 07:44 2 MLS/HR Ipratropium [place] 0.5 mg Q6HR NEB 06/14/25 10:15 06/26/25 11:26 0.5 MG Levalbuterol HCl 1.25 mg Q6HR NEB 06/15/25 00:00 06/26/25 11:26 1.25 MG Sodium Bicarbonate 75 ml/ Dextrose 1,075 ml @ 700 mls/hr Q1H33M IV 06/16/25 17:15 06/16/25 18:47 Cancel Pantoprazole Sodium 40 mg BID IV 06/17/25 10:00 06/26/25 11:43 40 MG Vancomycin HCl 0 ml @ 0 mls/hr UD IV 06/17/25 11:45 Bumetanide 1 mg BIDD IV 06/17/25 18:00 Cancel Micafungin Sodium 100 mg/Sodium Chloride 100 ml @ 100 mls/hr DAILY IV 06/19/25 10:00 06/26/25 11:42 100 MLS/HR Amino Acids 0 ml @ 0 mls/hr PER PHARMACY IV 06/18/25 12:15 Diagnostic Test (Pha) 1 strip Q6HR 06/19/25 00:00 06/26/25 05:42 1 STRIP Insulin Human Regular FOLLOW SLIDING SCALE Q6HR SC 06/19/25 00:00 06/26/25 00:36 2 UNITS Dextrose 50 ml UD IV 06/18/25 22:00 Amiodarone HCL/ Dextrose 200 ml @ 16.66 mls/ hr Q12H IV 06/20/25 05:00 06/25/25 20:05 16.66 MLS/HR Meropenem 50 ml @ 17 mls/hr DAILY@0100 IV 06/21/25 01:00 Cancel Meropenem 50 ml @ 17 mls/hr Q12HR IV 06/20/25 13:00 06/26/25 11:42 17 MLS/HR Furosemide 40 mg DAILY IV 06/24/25 10:00 06/26/25 10:00 40 MG Potassium Chloride 80 meq/ Multivitamins 10 ml/Chromium/ Copper/Manganese/ Zinc 1 ml/Insulin Human Regular 8 units/Magnesium Sulfate 12 meq/ Amino Acids/ Dextrose 1,254.08 ml @ 52 mls/hr Q24H8M IV 06/25/25 22:00 06/26/25 21:59 06/25/25 20:43 52 MLS/HR Potassium Acetate 80 meq/Magnesium Sulfate 16 meq/ Multivitamins 10 ml/Chromium/ Copper/Manganese/ Zinc 1 ml/Insulin Human Regular 8 units/Amino Acids/ Dextrose 1,355.08 ml @ 56 mls/hr [id number] IV 06/26/25 22:00 06/27/25 21:59 Morphine Sulfate 1 mg Q4HP PRN IV 06/26/25 11:45 UNV objective GENERAL: Ill appearing, intubated on ventilator. EYES: PERRL, EOMI. Anicteric. HENT: Moist mucous membranes. LUNGS: Decreased breath sounds. CARDIOVASCULAR: Regular rate and rhythm. ABDOMEN: Soft, nontender and nondistended. EXTREMITIES: No edema. NEUROLOGIC: No focal neurological deficits. SKIN: Warm, dry. laboratory and microbiology Laboratory Tests 06/26/25 03:20 Test 06/26/25 03:20 Range/Units Serum Glucose 127 H 74-106 mg/dL Problem List Chronic HFpEF, NYHA class IV. Paroxysmal atrial fibrillation, stage III, now NSR (on amiodarone/Elqiuis therapy). Severe aortic valve and mitral valve insufficiency. Acute hypoxic respiratory failure. Asthma. Chronic kidney disease. Thyroid disease. Prediabetes, newly diagnosed. Morbid obesity. History of tobacco use. Assessment/Plan Continued all current supportive medical care. Nitro SL. GI prophylactics. Diuretics with Lasix. IV antibiotics as ordered. Nebulized breathing treatments. Additional plan as per the hospital course. Critical care time of 45 minutes provided to include time spent evaluation of patient at bedside, when appropriate patient/family education for diagnosis, treatment plan, review of pertinent medical information and discussion of care with specialty providers and PCP. Mechanical ventilator parameters, treatment and adjustments have personally been reviewed by me and treatment plan by summer child caregiver has also been reviewed. Dietary Evaluation Review Comments: 1) If patient remains NPO > 7 days, consider EN/TPN to meet at least 75% of estimated daily needs 2) If gut is preferred, consider Nepro @ 25 mL/hr goal rate as tolerated. Flush with 200 mL free H2O Q6H. TF regimen will provide 1080 kcals, 49g Pro, and 1236 mL free H2O per 24 hrs. TF regimen will meet ~ 92% estimated energy needs and 52% estimated protein needs. 3) Advance to 60g CCHO renal cardiac diet when medically feasible, pending ST approval 4) Refer to outpatient RD/CDCES for weight management 5) Follow-up with cardiology, pulmonology, or nephrology 6) Continue to monitor I&O, labs, and skin integrity Expected Outcomes/Goals: 1) patient to receive nutritional support within 7 days of NPO status 2) labs to improve 3) diet to advance 4) f/u in 2-3 days Plan discussed with: Other Capillary Refill: < 3 seconds URBANO TRUONG MD Jun 26, 2025 11:51
--- NOTE | 2025-06-26 20:51 | DVHPN2 ---
Subjective DOS: 06/26/2025 Patient seen and examined at bedside. Intubated on mechanical ventilator. Overnight events reviewed. Reviewed: Care Plan, H&P, Labs, Medications, Previous Orders, Radiology Changes from previous H/P or p: No Changes General: Per HPI Objective Vitals Vital Signs Date Time Temp Pulse Resp B/P (MAP) Pulse Ox O2 Delivery O2 Flow Rate FiO2 06/26/25 20:15 116 26 96 06/26/25 20:00 Cool Aerosol 8 35 35 06/26/25 20:00 97.9 97.9 Intake/Output Intake and Output 06/26/25 07:00 Intake Total 2008.850 ml Output Total 3015 ml Balance -1005.150 ml Intake Oral 0 ml IV Total 2008.850 ml Output Urine Total 2650 ml Stool Total 65 ml Gastric Drainage Total 30 ml Drainage Total 270 ml # Bowel Movements 1 General Appearance: Alert, mild distress HEENT: Atraumatic, PERRLA, Other (ETT tube intact) Neck: Supple Lungs: Other (On vent.) Cardiovascular: Regular rate, Normal S1, Normal S2, No murmurs, Gallops, Rubs Abdomen: Normal bowel sounds, Soft, No tenderness, Other (Abdominal dressing dry and intact) Skin: Dry, Intact Psych/Mental Status: Mental status NL, Mood NL Medications Current Medications Medications Dose Ordered Sig/Bárbara Route Start Time Stop Time Status Last Admin Dose Admin Ondansetron HCl 4 mg Q4HP PRN IV 06/09/25 01:00 Cancel Acetaminophen 650 mg Q6HP PRN PO 06/09/25 01:00 06/10/25 20:15 650 MG Nitroglycerin 0.4 mg Q5MINP PRN SL 06/09/25 01:00 Midazolam HCl 50 ml @ 1 mls/hr Q24H IV 06/11/25 14:45 06/23/25 07:44 2 MLS/HR Ipratropium [place] 0.5 mg Q6HR NEB 06/14/25 10:15 06/26/25 18:08 0.5 MG Levalbuterol HCl 1.25 mg Q6HR NEB 06/15/25 00:00 06/26/25 18:08 1.25 MG Sodium Bicarbonate 75 ml/ Dextrose 1,075 ml @ 700 mls/hr Q1H33M IV 06/16/25 17:15 06/16/25 18:47 Cancel Pantoprazole Sodium 40 mg BID IV 06/17/25 10:00 06/26/25 11:43 40 MG Vancomycin HCl 0 ml @ 0 mls/hr UD IV 06/17/25 11:45 Bumetanide 1 mg BIDD IV 06/17/25 18:00 Cancel Micafungin Sodium 100 mg/Sodium Chloride 100 ml @ 100 mls/hr DAILY IV 06/19/25 10:00 06/26/25 11:42 100 MLS/HR Amino Acids 0 ml @ 0 mls/hr PER PHARMACY IV 06/18/25 12:15 Diagnostic Test (Pha) 1 strip Q6HR 06/19/25 00:00 06/26/25 18:05 1 STRIP Insulin Human Regular FOLLOW SLIDING SCALE Q6HR SC 06/19/25 00:00 06/26/25 18:03 2 UNITS Dextrose 50 ml UD IV 06/18/25 22:00 Meropenem 50 ml @ 17 mls/hr DAILY@0100 IV 06/21/25 01:00 Cancel Meropenem 50 ml @ 17 mls/hr Q12HR IV 06/20/25 13:00 06/26/25 11:42 17 MLS/HR Potassium Chloride 80 meq/ Multivitamins 10 ml/Chromium/ Copper/Manganese/ Zinc 1 ml/Insulin Human Regular 8 units/Magnesium Sulfate 12 meq/ Amino Acids/ Dextrose 1,254.08 ml @ 52 mls/hr Q24H8M IV 06/25/25 22:00 06/26/25 21:59 06/25/25 20:43 52 MLS/HR Morphine Sulfate 1 mg Q4HP PRN IV 06/26/25 11:45 Hold Fat Emulsion Intravenous 75 ml/ Potassium Acetate 65 meq/Potassium Phosphate 13.2 meq/Magnesium Sulfate 20 meq/ Multivitamins 10 ml/Chromium/ Copper/Manganese/ Zinc 1 ml/Insulin Human Regular 5 units/Amino Acids/ Dextrose 1,326.55 ml @ 55 mls/hr Q24H8M IV 06/26/25 22:00 06/27/25 21:59 Furosemide 20 mg BIDD IV 06/26/25 18:00 06/26/25 18:02 20 MG Acetaminophen/ Hydrocodone Bitart 1 tab Q4HPRN PRN PO 06/26/25 13:40 Acetaminophen/ Hydrocodone Bitart 1 tab Q4HP PRN PO 06/26/25 13:40 06/26/25 18:29 1 TAB Laboratory Results Laboratory Tests 06/26/25 03:20 Chemistry Test 06/26/25 03:20 Albumin 2.5 g/dL (3.2-4.8) L Calcium Level 8.5 mg/dL (8.7-10.4) L Magnesium Level 1.7 mg/dL (1.6-2.6) Phosphorus Level 3.4 mg/dL (2.4-5.1) Total Protein 5.1 g/dL (5.7-8.2) L Lipid panel Test 06/26/25 03:20 Triglycerides Level 180 mg/dL (< 150) H LFT Test 06/26/25 03:20 Alanine Aminotransferase (ALT) 22 U/L (7-40) Alkaline Phosphatase 108 U/L (46-116) Aspartate Amino Transferase (AST) 33 U/L (13-40) Total Bilirubin 0.3 mg/dL (0.2-1.0) Urinalysis Test 06/09/25 16:55 06/14/25 11:50 Urine Color Colorless (Yellow) Urine Clarity Clear (Clear) Urine pH 5.5 (5.0-9.0) Urine Specific [place] 1.007 (1.001-1.035) Urine Protein Negative (Negative) Urine Ketones Negative (Negative) Urine Blood 2+ /uL (Negative) H Urine Nitrite Negative (Negative) Urine Bilirubin Negative (Negative) Urine Urobilinogen Normal mg/dL (Negative) Urine Leukocyte Esterase Negative /uL (Negative) Urine RBC 38 /hpf (0 - 4) Urine Microscopic WBC 1 /HPF (0-5) Urine Squamous Epithelial Cells Few /hpf (<5) Urine Bacteria None seen /hpf (None Seen) Urine Glucose Normal mg/dL (Normal) Urine Creatinine 27.77 mg/dL (30.0-125.0) L Urine Protein/Creatinine Ratio 1.72 Urine Sodium 73 mmol/L (40-220) Urine Total Protein 47.7 mg/dL (1-14) H Blood Gas Results Test 06/26/25 08:53 Arterial Blood pH 7.436 (7.350-7.450) FiO2 % 30.0 Microbiology Microbiology Date/Time Source Procedure Growth Status 06/17/25 07:00 Stool Stool Culture - Final Complete 06/17/25 07:00 Stool Shiga Toxin I & II - Final Complete 06/16/25 10:30 Blood Blood Culture - Final NO GROWTH AFTER 5 DAYS OF INCUBATION. Complete 06/11/25 14:25 Nose MRSA Screen - Final Complete Assessment/Plan Assessment/Plan Impression: Acute hypoxic respiratory failure On mechanical ventilator Status post bowel resection secondary to ischemic minute: Obesity with a BMI of 35.9 Atrial fibrillation with RVR Acute kidney injury secondary to vasomotor nephropathy Sepsis Anemia Plan: s/p intubation on mechanical ventilator CXR image and report reviewed. Slight interval retraction of ventricular tube. No acute opacities. No pleural effusion pneumothorax. ABG reviewed. Compensated. On RR 20, Vt 450, Peep 5, Fio2 30% Titrate FIO2 to keep O2 saturation above 92%. VAP bundle Daily ABG and CXR while intubated. On Precedex On CPAP trial. Plan for extubation. Continue bronchodilators. Amiodarone drip. Continue antibiotics and antifungals. F/u cultures. Blood cultures: No growth 5 days. Monitor hgb. Supplement as necessary On Protonix BID Monitor renal function due to Acute kidney injury. Creatinine trending down. Diurese to euvolemia. Monitor electrolytes. Supplement as necessary. Nutritional support. On TPN Accucheks, ISS. GI/DVT prophylaxis. Condition: Critical Prognosis: Poor given multiple comorbidities. Rest of plan per hospitalist and other consultants. A total of 35 minutes of critical care time was spent reviewing the patient record, examining the patient, making a diagnostic and therapeutic plan, discussing this plan with the medical personnel, following up on diagnostic studies and following the patient for clinical stability excluding any and all procedures. At least 50% of this time was spent in direct, [id number] contact. Thank you for allowing me to participate in this patient's care. Further recommendations will depend on patient's clinical course. Please do not hesitate to contact me if you have any questions or concerns. This medical document was created using an electronic medical record system with [employer] system. Although this document has been carefully reviewed, there may still be some phonetic and typographical errors. These areas are purely typographical due to imperfections of the software programs, and do not reflect any compromise in the patient's medical care. Plan discussed with: Other (NANCY Eubanks) My Orders Orders - LORENA SOLARES MD Procedure Category Date Status Time Extubate DEANDRA 06/26/25 In Process 11:29 BIPAP RT 06/26/25 Logged 11:29 Date of Service: Jun 26, 2025 Billing Provider: LORENA SOLARES MD Common Visit Codes: [id number] INP/OBS CARE(HIGH), [id number] CARE 30-74 MIN LORENA SOLARES MD Jun 26, 2025 20:51
[2025-06-26] MEDS: AMIODARONE 360mg/200mL PREMIX 200 ML IV ONE (20:54)
[2025-06-26] MEDS: TPN PER PHARMACY IV NR (21:06)
[2025-06-26] MEDS ORDERED: TPN PER PHARMACY IV NR (22:00)
[2025-06-27] VITALS (98 sets, daily range): BP systolic 100–182; BP diastolic 45–88; PULSE 70–116; RESP 18–40; TEMP 96–98.5; O2SAT 94–99
[2025-06-27 03:20] LABS: Alanine Aminotransferase 30 U/L (7-40); Anion Gap 13 (5-15); BUN/Creatinine Ratio 51.8 (10.0-20.0); Calcium 9.1 mg/dL (8.7-10.4); Carbon Dioxide 26 mmol/L (20-31); Chloride 107 mmol/L (98-107); Magnesium 1.7 mg/dL (1.6-2.6); Potassium 3.6 mmol/L (3.5-5.1); Total Protein 5.9 g/dL (5.7-8.2)
[2025-06-27 03:21] LABS: Bilirubin, Total 0.4 mg/dL (0.2-1.0)
[2025-06-27 03:35] LABS: Albumin 2.8 g/dL (3.2-4.8); Alkaline Phosphatase 131 U/L (46-116); Blood Urea Nitrogen 73 mg/dL (9-23); Glucose 159 mg/dL (74-106); Sodium 146 mmol/L (136-145)
[2025-06-27] MEDS: hydrALAZINE HCL 20 MG/ML VL IV PRN (04:22)
[2025-06-27] MEDS: METOPROLOL TARTRATE 50 MG TAB PO SCH (06:25)
[2025-06-27] MEDS: AMIODARONE 360mg/200mL PREMIX 200 ML IV ONE (06:27)
--- NOTE | 2025-06-27 08:07 | DVHPN2 ---
Subjective Patient denies any symptoms. Reviewed: Care Plan, H&P, Labs, Medications, Previous Orders, Radiology Changes from previous H/P or p: No Changes General: Per HPI Objective Vitals Vital Signs Date Time Temp Pulse Resp B/P (MAP) Pulse Ox O2 Delivery O2 Flow Rate FiO2 06/27/25 06:30 115 31 140/74 (96) 97 06/27/25 06:02 Nasal Cannula 4.0 06/27/25 06:02 36 06/27/25 04:00 98.0 98.0 Intake/Output Intake and Output 06/27/25 07:00 Intake Total 2228.845 ml Output Total 3510 ml Balance -1281.155 ml Intake Oral 130 ml IV Total 2098.845 ml Output Urine Total 3250 ml Stool Total 55 ml Gastric Drainage Total 15 ml Drainage Total 190 ml # Bowel Movements 2 General Appearance: Alert, Oriented X3, mild distress HEENT: Atraumatic, PERRLA, Other (ETT tube intact) Neck: Supple Lungs: Clear to auscultation, Normal air movement Cardiovascular: Regular rate, Normal S1, Normal S2, No murmurs, Gallops, Rubs Abdomen: Normal bowel sounds, Soft, No tenderness, Other (Abdominal dressing dry and intact) Skin: Dry, Intact Psych/Mental Status: Mental status NL, Mood NL Medications Current Medications Medications Dose Ordered Sig/Bárbara Route Start Time Stop Time Status Last Admin Dose Admin Ondansetron HCl 4 mg Q4HP PRN IV 06/09/25 01:00 Cancel Acetaminophen 650 mg Q6HP PRN PO 06/09/25 01:00 06/10/25 20:15 650 MG Nitroglycerin 0.4 mg Q5MINP PRN SL 06/09/25 01:00 Midazolam HCl 50 ml @ 1 mls/hr Q24H IV 06/11/25 14:45 06/23/25 07:44 2 MLS/HR Ipratropium [place] 0.5 mg Q6HR NEB 06/14/25 10:15 06/27/25 06:02 0.5 MG Levalbuterol HCl 1.25 mg Q6HR NEB 06/15/25 00:00 06/27/25 06:02 1.25 MG Sodium Bicarbonate 75 ml/ Dextrose 1,075 ml @ 700 mls/hr Q1H33M IV 06/16/25 17:15 06/16/25 18:47 Cancel Pantoprazole Sodium 40 mg BID IV 06/17/25 10:00 06/26/25 21:01 40 MG Vancomycin HCl 0 ml @ 0 mls/hr UD IV 06/17/25 11:45 Bumetanide 1 mg BIDD IV 06/17/25 18:00 Cancel Micafungin Sodium 100 mg/Sodium Chloride 100 ml @ 100 mls/hr DAILY IV 06/19/25 10:00 06/26/25 11:42 100 MLS/HR Amino Acids 0 ml @ 0 mls/hr PER PHARMACY IV 06/18/25 12:15 Diagnostic Test (Pha) 1 strip Q6HR 06/19/25 00:00 06/27/25 06:25 1 STRIP Insulin Human Regular FOLLOW SLIDING SCALE Q6HR SC 06/19/25 00:00 06/27/25 06:39 2 UNITS Dextrose 50 ml UD IV 06/18/25 22:00 Meropenem 50 ml @ 17 mls/hr DAILY@0100 IV 06/21/25 01:00 Cancel Meropenem 50 ml @ 17 mls/hr Q12HR IV 06/20/25 13:00 06/26/25 21:01 17 MLS/HR Morphine Sulfate 1 mg Q4HP PRN IV 06/26/25 11:45 Hold Fat Emulsion Intravenous 75 ml/ Potassium Acetate 65 meq/Potassium Phosphate 13.2 meq/Magnesium Sulfate 20 meq/ Multivitamins 10 ml/Chromium/ Copper/Manganese/ Zinc 1 ml/Insulin Human Regular 5 units/Amino Acids/ Dextrose 1,326.55 ml @ 55 mls/hr Q24H8M IV 06/26/25 22:00 06/27/25 21:59 06/26/25 21:06 55 MLS/HR Furosemide 20 mg BIDD IV 06/26/25 18:00 06/27/25 06:24 20 MG Acetaminophen/ Hydrocodone Bitart 1 tab Q4HPRN PRN PO 06/26/25 13:40 Acetaminophen/ Hydrocodone Bitart 1 tab Q4HP PRN PO 06/26/25 13:40 06/27/25 02:07 1 TAB Hydralazine HCl 10 mg Q6HP PRN IV 06/27/25 04:00 06/27/25 04:22 10 MG Laboratory Results Laboratory Tests 06/26/25 03:20 06/27/25 02:28 Chemistry Test 06/27/25 02:28 Albumin 2.8 g/dL (3.2-4.8) L Calcium Level 9.1 mg/dL (8.7-10.4) Magnesium Level 1.7 mg/dL (1.6-2.6) Phosphorus Level 3.0 mg/dL (2.4-5.1) Total Protein 5.9 g/dL (5.7-8.2) LFT Test 06/27/25 02:28 Alanine Aminotransferase (ALT) 30 U/L (7-40) Alkaline Phosphatase 131 U/L (46-116) H Aspartate Amino Transferase (AST) 46 U/L (13-40) H Total Bilirubin 0.4 mg/dL (0.2-1.0) Urinalysis Test 06/09/25 16:55 06/14/25 11:50 Urine Color Colorless (Yellow) Urine Clarity Clear (Clear) Urine pH 5.5 (5.0-9.0) Urine Specific [place] 1.007 (1.001-1.035) Urine Protein Negative (Negative) Urine Ketones Negative (Negative) Urine Blood 2+ /uL (Negative) H Urine Nitrite Negative (Negative) Urine Bilirubin Negative (Negative) Urine Urobilinogen Normal mg/dL (Negative) Urine Leukocyte Esterase Negative /uL (Negative) Urine RBC 38 /hpf (0 - 4) Urine Microscopic WBC 1 /HPF (0-5) Urine Squamous Epithelial Cells Few /hpf (<5) Urine Bacteria None seen /hpf (None Seen) Urine Glucose Normal mg/dL (Normal) Urine Creatinine 27.77 mg/dL (30.0-125.0) L Urine Protein/Creatinine Ratio 1.72 Urine Sodium 73 mmol/L (40-220) Urine Total Protein 47.7 mg/dL (1-14) H Blood Gas Results Test 06/26/25 08:53 Arterial Blood pH 7.436 (7.350-7.450) FiO2 % 30.0 Microbiology Microbiology Date/Time Source Procedure Growth Status 06/17/25 07:00 Stool Stool Culture - Final Complete 06/17/25 07:00 Stool Shiga Toxin I & II - Final Complete 06/16/25 10:30 Blood Blood Culture - Final NO GROWTH AFTER 5 DAYS OF INCUBATION. Complete 06/11/25 14:25 Nose MRSA Screen - Final Complete Labs and/or images reviewed: Labs reviewed by me, Image(s) reviewed by me Assessment/Plan Assessment/Plan Impression: -acute hypoxic respiratory failure -status post bowel resection, secondary to ischemic megacolon -obesity -AFib with RVR -acute kidney injury, vasomotor nephropathy -sepsis -anemia Plan: Events: Patient extubated, respiratory status stable. Hypertensive with increased heart rate yesterday evening. Started on p.o. metoprolol -continue amiodarone drip, weaned off after current bag and transitioned to p.o. -continue antimicrobial therapy with micafungin, Meropenem -continue Protonix -continue amiodarone drip -pain management -bronchodilators -continue TPN -physical therapy -repeat labs, chest x-ray in a.m. Critical care time spent with patient discussing and formulating plan of care: 40 minutes. This does not include time spent performing procedures. This medical document was created using an electronic medical record system with [employer] dictation system. Although this document has been carefully reviewed, there may still be some phonetic and typographical errors. These areas are purely typographical due to imperfections of the software programs, and do not reflect any compromise in the patient's medical care. Plan discussed with: Patient, Other (RN) My Orders Orders - SLIM ANAND NP Procedure Category Date Status Time Morphine Sulfate PHA 06/26/25 In Process Injection 11:45 Complete Blood Count LAB 06/27/25 Logged 07:04 Complete Blood Count LAB 06/28/25 Verified 04:00 Comprehensive LAB 06/28/25 Verified Metabolic Panel 04:00 Furosemide Injection PHA 06/27/25 Transmitted (Lasix Injection) 10:00 Amiodarone Tablet PHA 06/27/25 Transmitted (Cordarone Tablet) 10:00 Date of Service: Jun 27, 2025 Billing Provider: SLIM ANAND NP Common Visit Codes: [id number] CARE 30-74 MIN SLIM ANAND NP Jun 27, 2025 08:07
[2025-06-27] MEDS: FUROSEMIDE 20 MG/2 ML VIAL IV SCH (09:17)
[2025-06-27] MEDS ORDERED: AMIODARONE HCL 200 MG TAB PO SCH (10:00)
--- NOTE | 2025-06-27 11:09 | DVHPN2 ---
Progress Note - Surgical Date Seen: Jun 27, 2025 Post op day Post op day: 10 Subjective Patient reports: Feels better (Patient completely awakened extubated feeling good states she is hungry.) Review of Systems: Deferred Objective Vital signs Vital Sign Date Time Temp Pulse Resp B/P (MAP) Pulse Ox O2 Delivery O2 Flow Rate FiO2 06/27/25 09:17 152/63 06/27/25 06:30 115 31 97 06/27/25 06:02 Nasal Cannula 4.0 06/27/25 06:02 36 06/27/25 04:00 98.0 98.0 Total Intake and Output 06/26/25 06/26/25 06/27/25 15:00 23:00 07:00 Intake Total 629.595 ml 930.94 ml 668.31 ml Output Total 15 ml 1895 ml 1600 ml Balance 614.595 ml -964.06 ml -931.69 ml Medications Current Medications Medications Dose Ordered Sig/Bárbara Route Start Time Stop Time Status Last Admin Dose Admin Ondansetron HCl 4 mg Q4HP PRN IV 06/09/25 01:00 Cancel Acetaminophen 650 mg Q6HP PRN PO 06/09/25 01:00 06/10/25 20:15 650 MG Nitroglycerin 0.4 mg Q5MINP PRN SL 06/09/25 01:00 Ipratropium [place] 0.5 mg Q6HR NEB 06/14/25 10:15 06/27/25 06:02 0.5 MG Levalbuterol HCl 1.25 mg Q6HR NEB 06/15/25 00:00 06/27/25 06:02 1.25 MG Sodium Bicarbonate 75 ml/ Dextrose 1,075 ml @ 700 mls/hr Q1H33M IV 06/16/25 17:15 06/16/25 18:47 Cancel Pantoprazole Sodium 40 mg BID IV 06/17/25 10:00 06/27/25 09:16 40 MG Vancomycin HCl 0 ml @ 0 mls/hr UD IV 06/17/25 11:45 Bumetanide 1 mg BIDD IV 06/17/25 18:00 Cancel Micafungin Sodium 100 mg/Sodium Chloride 100 ml @ 100 mls/hr DAILY IV 06/19/25 10:00 06/27/25 09:16 100 MLS/HR Amino Acids 0 ml @ 0 mls/hr PER PHARMACY IV 06/18/25 12:15 Diagnostic Test (Pha) 1 strip Q6HR 06/19/25 00:00 06/27/25 06:25 1 STRIP Insulin Human Regular FOLLOW SLIDING SCALE Q6HR SC 06/19/25 00:00 06/27/25 06:39 2 UNITS Dextrose 50 ml UD IV 06/18/25 22:00 Meropenem 50 ml @ 17 mls/hr DAILY@0100 IV 06/21/25 01:00 Cancel Morphine Sulfate 1 mg Q4HP PRN IV 06/26/25 11:45 Hold Fat Emulsion Intravenous 75 ml/ Potassium Acetate 65 meq/Potassium Phosphate 13.2 meq/Magnesium Sulfate 20 meq/ Multivitamins 10 ml/Chromium/ Copper/Manganese/ Zinc 1 ml/Insulin Human Regular 5 units/Amino Acids/ Dextrose 1,326.55 ml @ 55 mls/hr Q24H8M IV 06/26/25 22:00 06/27/25 21:59 06/26/25 21:06 55 MLS/HR Acetaminophen/ Hydrocodone Bitart 1 tab Q4HPRN PRN PO 06/26/25 13:40 Acetaminophen/ Hydrocodone Bitart 1 tab Q4HP PRN PO 06/26/25 13:40 06/27/25 02:07 1 TAB Hydralazine HCl 10 mg Q6HP PRN IV 06/27/25 04:00 06/27/25 04:22 10 MG Furosemide 20 mg DAILY IV 06/27/25 10:00 06/27/25 09:17 20 MG Amiodarone HCl 200 mg Q12HR PO 06/27/25 10:00 Hold Meropenem 50 ml @ 17 mls/hr Q8H IV 06/27/25 18:00 Laboratory Laboratory Tests 06/27/25 02:28 06/26/25 03:20 Test 06/27/25 02:28 Range/Units Serum Glucose 159 H 74-106 mg/dL Microbiology Date/Time Source Procedure Growth Status 06/17/25 07:00 Stool Stool Culture - Final Complete 06/17/25 07:00 Stool Shiga Toxin I & II - Final Complete 06/16/25 10:30 Blood Blood Culture - Final NO GROWTH AFTER 5 DAYS OF INCUBATION. Complete 06/11/25 14:25 Nose MRSA Screen - Final Complete Examination: GENERAL:Abnormal (Week), HEENT:Normal (No icterus), ABDOMEN:Abnormal (Nondistended, midline wound without pus/drainage/necrosis (wound VAC change today), ileostomy with pink mucosa and bilious output, bilateral drains with very minimal serosanguineous fluid, nontender) Labs and/or images reviewed: Labs reviewed by me Problem List/Assessment/Plan Assessment and Plan Mrs. Penaloza is a 54-year-old female who has been in the hospital since June 08 due to pneumonia and CHF exacerbation that resulted in intubation. I was consulted on 06/17 due to severe colonic distention and pneumatosis seen on CT from that day. She ended receiving a subtotal colectomy colectomy, with primary ileocolic anastomosis and protective loop ileostomy. Interval: Patient fully awake, she got extubated yesterday, no abdominal pain complaints, and stating she wants to eat. Yesterday she was started on ice chips with toleration, we will advance diet today to clear liquid diet, she will also need ensure clears for supplementation. I recommend leaving the TPN in place given her poor nutritional status, and additionally seen how much she is able to tolerate p.o.. Surgeries: 06/17: Exploratory laparotomy, subtotal colectomy (resection of ascending and transverse colon), temporary abdominal closure 06/19: Exploratory laparotomy, takedown of temporary abdominal dressing, wash out, resection of descending colon 06/20: Exploratory laparotomy, takedown of temporary abdominal dressing, washout, ileocolic anastomosis, protective loop ileostomy, drain placement x2, fascial closure 1. Clear liquid diet, we with ensure clears supplementation 2. Continue with TPN, she was malnourished, and she is barely now starting to eat clears 3. Wound VAC for midline wound 4. Drain stripping and emptying once per shift and p.r.n. 5. Recommend continuation of IV antibiotics for a total of 7 days from the last surgery on 06/20 6. No GI cathartic medications 7. Physical therapy consultation My Orders My Orders Orders - SONAM ALCARAZ MD Procedure Category Date Status Time Hydrocodone-Acet PHA 06/26/25 In Process 5/325mg Tab ([place] 13:40 Hydrocodone-Acet PHA 06/26/25 In Process 10/325mg Tab ([place] 13:40 Npo Except For DEANDRA 06/26/25 In Process Medications 16:47 Npo Except Ice Chips DEANDRA 06/26/25 In Process 16:47 Npo (Nothing By DIET 06/26/25 Transmitted Mouth) Diet Dinner Plan discussed with Plan discussed with: Patient Visit Coding Surgery Date of Service if different f: Jun 27, 2025 Billing Provider: SONAM ALCARAZ MD Surgery Visit Codes: [id number] INP/OBS CARE(HIGH) SONAM ALCARAZ MD Jun 27, 2025 11:09
[2025-06-27 11:26] LABS: Hematocrit 27.9 % (36.0-46.0); Hemoglobin 8.8 g/dL (12.2-16.2); Mean Corpuscular Hemoglobin 27.0 pg (28.0-32.0); Mean Corpuscular Volume 85.8 fL (80.0-100.0); Nucleated Red Blood Cells % 0.2 %
[2025-06-27 15:41] LABS: Base Excess 2.1 mmol/L (-2.0-3.0)
[2025-06-27] MEDS: FUROSEMIDE 20 MG/2 ML VIAL IV STA (15:53)
--- NOTE | 2025-06-27 16:48 | DVH ---
CHEST RADIOGRAPH Indication: INCREASED WORK OF BREATHING AND AUDIBLY COARSE Technique: Single frontal view of the chest was obtained COMPARISON: XY CHEST XRAY 1 VIEW on DOS: 06/26/25, XY CHEST XRAY 1 VIEW on DOS: 06/25/25, XY CHEST XRAY 1 VIEW on DOS: 06/24/25, XY CHEST XRAY 1 VIEW on DOS: 06/23/25, XY CHEST XRAY 1 VIEW on DOS: 06/22/25 FINDINGS: Lines and Tubes: Central right-sided line ends in the superior right atrium. Lungs: Clear Pleura: No effusion. No pneumothorax. Cardiomediastinal contours: Unremarkable Bones: Unremarkable IMPRESSION: 1. Central line ends in the superior most aspect of the right atrium. No pneumothorax Stable heart size
[2025-06-27] MEDS: ENSURE CLEAR Mixed Berry 8oz Carton PO SCH (18:00)
--- NOTE | 2025-06-27 18:00 | DVHPN2 ---
Progress Note Date Seen: Jun 27, 2025 Medical Necessity Reason Pt with a Central, PICC or Fol: Yes The following are medically ne: Central Line, Engel Catheter Subjective Patient reports: Other (Patient is extubated) Review of Systems: Deferred Objective vital signs Vital Sign Date Time Temp Pulse Resp B/P (MAP) Pulse Ox O2 Delivery O2 Flow Rate FiO2 06/27/25 17:00 82 26 152/79 (103) 98 06/27/25 16:45 97.2 97.2 06/27/25 16:00 Bi-Pap+ 28 28 06/27/25 14:00 5 Total Intake and Output 06/26/25 06/26/25 06/27/25 15:00 23:00 07:00 Intake Total 629.595 ml 930.94 ml 756.64 ml Output Total 15 ml 1895 ml 1600 ml Balance 614.595 ml -964.06 ml -843.36 ml medications Current Medications Medications Dose Ordered Sig/Bárbara Route Start Time Stop Time Status Last Admin Dose Admin Ondansetron HCl 4 mg Q4HP PRN IV 06/09/25 01:00 Cancel Acetaminophen 650 mg Q6HP PRN PO 06/09/25 01:00 06/10/25 20:15 650 MG Nitroglycerin 0.4 mg Q5MINP PRN SL 06/09/25 01:00 Ipratropium [place] 0.5 mg Q6HR NEB 06/14/25 10:15 06/27/25 11:19 0.5 MG Levalbuterol HCl 1.25 mg Q6HR NEB 06/15/25 00:00 06/27/25 11:19 1.25 MG Sodium Bicarbonate 75 ml/ Dextrose 1,075 ml @ 700 mls/hr Q1H33M IV 06/16/25 17:15 06/16/25 18:47 Cancel Pantoprazole Sodium 40 mg BID IV 06/17/25 10:00 06/27/25 09:16 40 MG Vancomycin HCl 0 ml @ 0 mls/hr UD IV 06/17/25 11:45 Bumetanide 1 mg BIDD IV 06/17/25 18:00 Cancel Micafungin Sodium 100 mg/Sodium Chloride 100 ml @ 100 mls/hr DAILY IV 06/19/25 10:00 06/27/25 09:16 100 MLS/HR Amino Acids 0 ml @ 0 mls/hr PER PHARMACY IV 06/18/25 12:15 Diagnostic Test (Pha) 1 strip Q6HR 06/19/25 00:00 06/27/25 12:00 1 STRIP Insulin Human Regular FOLLOW SLIDING SCALE Q6HR SC 06/19/25 00:00 06/27/25 12:57 2 UNITS Dextrose 50 ml UD IV 06/18/25 22:00 Meropenem 50 ml @ 17 mls/hr DAILY@0100 IV 06/21/25 01:00 Cancel Morphine Sulfate 1 mg Q4HP PRN IV 06/26/25 11:45 Hold Fat Emulsion Intravenous 75 ml/ Potassium Acetate 65 meq/Potassium Phosphate 13.2 meq/Magnesium Sulfate 20 meq/ Multivitamins 10 ml/Chromium/ Copper/Manganese/ Zinc 1 ml/Insulin Human Regular 5 units/Amino Acids/ Dextrose 1,326.55 ml @ 55 mls/hr Q24H8M IV 06/26/25 22:00 06/27/25 21:59 06/26/25 21:06 55 MLS/HR Acetaminophen/ Hydrocodone Bitart 1 tab Q4HPRN PRN PO 06/26/25 13:40 Acetaminophen/ Hydrocodone Bitart 1 tab Q4HP PRN PO 06/26/25 13:40 06/27/25 14:44 1 TAB Hydralazine HCl 10 mg Q6HP PRN IV 06/27/25 04:00 06/27/25 04:22 10 MG Furosemide 20 mg DAILY IV 06/27/25 10:00 06/27/25 09:17 20 MG Amiodarone HCl 200 mg Q12HR PO 06/27/25 10:00 Hold Meropenem 50 ml @ 17 mls/hr Q8H IV 06/27/25 18:00 Fat Emulsion Intravenous 75 ml/ Potassium Acetate 75 meq/Potassium Phosphate 22 meq/ Magnesium Sulfate 30 meq/ Multivitamins 10 ml/Chromium/ Copper/Manganese/ Zinc 1 ml/Insulin Human Regular 5 units/Amino Acids/ Dextrose 1,386.05 ml @ 58 mls/hr [id number] IV 06/27/25 22:00 06/28/25 21:59 Enteral Nutritional Formula 240 ml BIDWM PO 06/27/25 18:00 Examination: GENERAL:Abnormal, LUNGS:Abnormal, MSK:Normal, NEURO:Abnormal laboratory and microbiology Laboratory Tests 06/27/25 10:05 06/27/25 02:28 Test 06/27/25 02:28 Range/Units Serum Glucose 159 H 74-106 mg/dL Microbiology Date/Time Source Procedure Growth Status 06/17/25 07:00 Stool Stool Culture - Final Complete 06/17/25 07:00 Stool Shiga Toxin I & II - Final Complete 06/16/25 10:30 Blood Blood Culture - Final NO GROWTH AFTER 5 DAYS OF INCUBATION. Complete 06/11/25 14:25 Nose MRSA Screen - Final Complete Problem List/Assessment/Plan Problem List/Assessment/Plan Acute kidney injury on chronic kidney disease stage IIIA secondary to hemodynamic mediated, FeNa > 2% status post intermittent HD 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 Flush with 200 mL free H2O Q6H. TF regimen will provide 1080 kcals, 49g Pro, and 1236 mL free H2O per 24 hrs. TF regimen will meet ~ 92% estimated energy needs and 52% estimated protein needs. 3) Advance to 60g CCHO renal cardiac diet when medically feasible, pending ST approval 4) Refer to outpatient RD/CDCES for weight management 5) Follow-up with cardiology, pulmonology, or nephrology 6) Continue to monitor I&O, labs, and skin integrity Expected Outcomes/Goals: 1) patient to receive nutritional support within 7 days of NPO status 2) labs to improve 3) diet to advance 4) f/u in 2-3 days Sepsis reassessment post fluid Capillary Refill: < 3 seconds ANGELICA NASH MD Jun 27, 2025 18:00
[2025-06-27] MEDS: MEROPENEM 1GM IVPB 50 ML IV SCH (18:15)
[2025-06-27] MEDS: FAT EMULSION IV NR (22:12)
[2025-06-27] MEDS: [UNRECOGNIZED DRUG - OTHER] IV NR (22:12)
[2025-06-27] MEDS: POTASSIUM PHOSPHATE IV NR (22:12)
[2025-06-27] MEDS: POTASSIUM ACETATE IV NR (22:12)
--- NOTE | 2025-06-27 23:37 | DVHPN2 ---
Progress Note - Dictate Date Seen: Jun 27, 2025 Medical Necessity Reason Pt with a Central, PICC or Fol: Yes The following are medically ne: Central Line, Engel Catheter Subjective Patient was seen and evaluated in follow up in the ICU. Patient was successfully extubated. Patient is on 5 LPM NC. WBC 11.1, HGB 8.8, HCT 27.9, NA 146, BUN 73, CONTROL DIRECTOR 1.41, AST 46. vital signs Vital Sign Date Time Temp Pulse Resp B/P (MAP) Pulse Ox O2 Delivery O2 Flow Rate FiO2 06/27/25 12:00 32 98 Nasal Cannula* 5 40 06/27/25 12:00 97 06/27/25 09:17 152/63 06/27/25 04:00 98.0 98.0 Total Intake and Output 06/26/25 06/26/25 06/27/25 15:00 23:00 07:00 Intake Total 629.595 ml 930.94 ml 756.64 ml Output Total 15 ml 1895 ml 1600 ml Balance 614.595 ml -964.06 ml -843.36 ml medications Current Medications Medications Dose Ordered Sig/Bárbara Route Start Time Stop Time Status Last Admin Dose Admin Ondansetron HCl 4 mg Q4HP PRN IV 06/09/25 01:00 Cancel Acetaminophen 650 mg Q6HP PRN PO 06/09/25 01:00 06/10/25 20:15 650 MG Nitroglycerin 0.4 mg Q5MINP PRN SL 06/09/25 01:00 Ipratropium [place] 0.5 mg Q6HR NEB 06/14/25 10:15 06/27/25 11:19 0.5 MG Levalbuterol HCl 1.25 mg Q6HR NEB 06/15/25 00:00 06/27/25 11:19 1.25 MG Sodium Bicarbonate 75 ml/ Dextrose 1,075 ml @ 700 mls/hr Q1H33M IV 06/16/25 17:15 06/16/25 18:47 Cancel Pantoprazole Sodium 40 mg BID IV 06/17/25 10:00 06/27/25 09:16 40 MG Vancomycin HCl 0 ml @ 0 mls/hr UD IV 06/17/25 11:45 Bumetanide 1 mg BIDD IV 06/17/25 18:00 Cancel Micafungin Sodium 100 mg/Sodium Chloride 100 ml @ 100 mls/hr DAILY IV 06/19/25 10:00 06/27/25 09:16 100 MLS/HR Amino Acids 0 ml @ 0 mls/hr PER PHARMACY IV 06/18/25 12:15 Diagnostic Test (Pha) 1 strip Q6HR 06/19/25 00:00 06/27/25 12:00 1 STRIP Insulin Human Regular FOLLOW SLIDING SCALE Q6HR SC 06/19/25 00:00 06/27/25 12:57 2 UNITS Dextrose 50 ml UD IV 06/18/25 22:00 Meropenem 50 ml @ 17 mls/hr DAILY@0100 IV 06/21/25 01:00 Cancel Morphine Sulfate 1 mg Q4HP PRN IV 06/26/25 11:45 Hold Fat Emulsion Intravenous 75 ml/ Potassium Acetate 65 meq/Potassium Phosphate 13.2 meq/Magnesium Sulfate 20 meq/ Multivitamins 10 ml/Chromium/ Copper/Manganese/ Zinc 1 ml/Insulin Human Regular 5 units/Amino Acids/ Dextrose 1,326.55 ml @ 55 mls/hr Q24H8M IV 06/26/25 22:00 06/27/25 21:59 06/26/25 21:06 55 MLS/HR Acetaminophen/ Hydrocodone Bitart 1 tab Q4HPRN PRN PO 06/26/25 13:40 Acetaminophen/ Hydrocodone Bitart 1 tab Q4HP PRN PO 06/26/25 13:40 06/27/25 02:07 1 TAB Hydralazine HCl 10 mg Q6HP PRN IV 06/27/25 04:00 06/27/25 04:22 10 MG Furosemide 20 mg DAILY IV 06/27/25 10:00 06/27/25 09:17 20 MG Amiodarone HCl 200 mg Q12HR PO 06/27/25 10:00 Hold Meropenem 50 ml @ 17 mls/hr Q8H IV 06/27/25 18:00 Fat Emulsion Intravenous 75 ml/ Potassium Acetate 75 meq/Potassium Phosphate 22 meq/ Magnesium Sulfate 30 meq/ Multivitamins 10 ml/Chromium/ Copper/Manganese/ Zinc 1 ml/Insulin Human Regular 5 units/Amino Acids/ Dextrose 1,386.05 ml @ 58 mls/hr [id number] IV 06/27/25 22:00 06/28/25 21:59 objective GENERAL: Alert and oriented x 3. No acute distress. EYES: PERRL, EOMI. Anicteric. HENT: Moist mucous membranes. LUNGS: Decreased breath sounds. CARDIOVASCULAR: Regular rate and rhythm. ABDOMEN: Soft, nontender and nondistended. EXTREMITIES: No edema. NEUROLOGIC: No focal neurological deficits. SKIN: Warm, dry. laboratory and microbiology Laboratory Tests 06/27/25 10:05 06/27/25 02:28 Test 06/27/25 02:28 Range/Units Serum Glucose 159 H 74-106 mg/dL Problem List Chronic HFpEF, NYHA class IV. Paroxysmal atrial fibrillation, stage III, now NSR (on amiodarone/Elqiuis therapy). Severe aortic valve and mitral valve insufficiency. Acute hypoxic respiratory failure. Asthma. Chronic kidney disease. Thyroid disease. Prediabetes, newly diagnosed. Morbid obesity. History of tobacco use. Assessment/Plan Continued all current supportive medical care. Nitro SL. GI prophylactics. Diuretics with Lasix. IV antibiotics as ordered. Nebulized breathing treatments. IV Hydralazine for SBP >150. Additional plan as per the hospital course. Critical care time of 45 minutes provided to include time spent evaluation of patient at bedside, when appropriate patient/family education for diagnosis, treatment plan, review of pertinent medical information and discussion of care with specialty providers and PCP. Dietary Evaluation Review Comments: 1) If patient remains NPO > 7 days, consider EN/TPN to meet at least 75% of estimated daily needs 2) If gut is preferred, consider Nepro @ 25 mL/hr goal rate as tolerated. Flush with 200 mL free H2O Q6H. TF regimen will provide 1080 kcals, 49g Pro, and 1236 mL free H2O per 24 hrs. TF regimen will meet ~ 92% estimated energy needs and 52% estimated protein needs. 3) Advance to 60g CCHO renal cardiac diet when medically feasible, pending ST approval 4) Refer to outpatient RD/[facility] for weight management 5) Follow-up with cardiology, pulmonology, or nephrology 6) Continue to monitor I&O, labs, and skin integrity Expected Outcomes/Goals: 1) patient to receive nutritional support within 7 days of NPO status 2) labs to improve 3) diet to advance 4) f/u in 2-3 days Plan discussed with: Patient Capillary Refill: < 3 seconds URBANO TRUONG MD Jun 27, 2025 13:29
[2025-06-28] VITALS (107 sets, daily range): BP systolic 99–127; BP diastolic 28–67; PULSE 91–103; RESP 17–94; TEMP 98.8–100; O2SAT 92–99
[2025-06-28 04:33] LABS: Hemoglobin 8.0 g/dL (12.2-16.2)
[2025-06-28 04:34] LABS: Hematocrit 25.4 % (36.0-46.0); Mean Corpuscular Hemoglobin 27.1 pg (28.0-32.0); Mean Corpuscular Volume 86.1 fL (80.0-100.0); Nucleated Red Blood Cells % 0.3 %
[2025-06-28 04:51] LABS: Alanine Aminotransferase 29 U/L (7-40); Anion Gap 12 (5-15); BUN/Creatinine Ratio 51.7 (10.0-20.0); Calcium 8.8 mg/dL (8.7-10.4); Carbon Dioxide 28 mmol/L (20-31); Chloride 105 mmol/L (98-107); Magnesium 2.0 mg/dL (1.6-2.6); Potassium 4.0 mmol/L (3.5-5.1)
[2025-06-28 04:56] LABS: Albumin 2.6 g/dL (3.2-4.8); Alkaline Phosphatase 117 U/L (46-116); Bilirubin, Total 0.3 mg/dL (0.2-1.0); Blood Urea Nitrogen 77 mg/dL (9-23); Glucose 129 mg/dL (74-106); Sodium 145 mmol/L (136-145); Total Protein 5.6 g/dL (5.7-8.2)
--- NOTE | 2025-06-28 05:31 | DVH ---
CHEST RADIOGRAPH Indication: interval changes post extubation Technique: Single frontal view of the chest was obtained COMPARISON: XY CHEST PORTABLE on DOS: 06/27/25, XY CHEST XRAY 1 VIEW on DOS: 06/26/25, XY CHEST XRAY 1 VIEW on DOS: 06/25/25, XY CHEST XRAY 1 VIEW on DOS: 06/24/25, XY CHEST XRAY 1 VIEW on DOS: 06/23/25 FINDINGS: Lines and Tubes: Right internal jugular central venous catheter unchanged. Lungs: Mildly diminished lung volumes with concomitant crowding of the pulmonary vasculature. No evid ence of focal consolidation. Pleura: No effusion. No pneumothorax. Cardiomediastinal contours: Unremarkable Bones: Unremarkable IMPRESSION: 1. No acute cardiopulmonary disease. 2. Right IJ catheter.
--- NOTE | 2025-06-28 08:47 | DVHPN2 ---
Subjective DOS: 06/27/2025 Patient seen and examined at bedside. Remains extubated, on supplemental oxygen Overnight events reviewed. Reviewed: Care Plan, H&P, Labs, Medications, Previous Orders, Radiology Changes from previous H/P or p: No Changes General: Per HPI Objective Vitals Vital Signs Date Time Temp Pulse Resp B/P (MAP) Pulse Ox O2 Delivery O2 Flow Rate FiO2 06/28/25 07:43 95 20 96 06/28/25 07:37 Nasal Cannula* 2 28 06/28/25 06:30 98.9 113/44 (67) 98.9 Intake/Output Intake and Output 06/28/25 07:00 Intake Total 1774.29 ml Output Total 3335 ml Balance -1560.71 ml Intake Oral 150 ml IV Total 1624.29 ml Output Urine Total 3100 ml Stool Total 20 ml Gastric Drainage Total 15 ml Drainage Total 200 ml # Bowel Movements 1 General Appearance: Alert, No acute distress HEENT: Atraumatic, PERRLA Neck: Supple Lungs: Clear to auscultation, Other (Decreased air entry bilaterally) Cardiovascular: Regular rate, Normal S1, Normal S2, No murmurs, Gallops, Rubs Abdomen: Normal bowel sounds, Soft, No tenderness, Other (Abdominal dressing dry and intact) Musculoskeletal: Normal sensory function, Normal motor function Neuro: Strength at 5/5 X4 ext, Cranial nerves 3-12 NL Skin: Dry, Intact Psych/Mental Status: Mental status NL, Mood NL Medications Current Medications Medications Dose Ordered Sig/Bárbara Route Start Time Stop Time Status Last Admin Dose Admin Ondansetron HCl 4 mg Q4HP PRN IV 06/09/25 01:00 Cancel Acetaminophen 650 mg Q6HP PRN PO 06/09/25 01:00 06/10/25 20:15 650 MG Nitroglycerin 0.4 mg Q5MINP PRN SL 06/09/25 01:00 Ipratropium [place] 0.5 mg Q6HR NEB 06/14/25 10:15 06/28/25 07:37 0.5 MG Levalbuterol HCl 1.25 mg Q6HR NEB 06/15/25 00:00 06/28/25 07:37 1.25 MG Sodium Bicarbonate 75 ml/ Dextrose 1,075 ml @ 700 mls/hr Q1H33M IV 06/16/25 17:15 06/16/25 18:47 Cancel Pantoprazole Sodium 40 mg BID IV 06/17/25 10:00 06/27/25 21:58 40 MG Vancomycin HCl 0 ml @ 0 mls/hr UD IV 06/17/25 11:45 Bumetanide 1 mg BIDD IV 06/17/25 18:00 Cancel Micafungin Sodium 100 mg/Sodium Chloride 100 ml @ 100 mls/hr DAILY IV 06/19/25 10:00 06/27/25 09:16 100 MLS/HR Amino Acids 0 ml @ 0 mls/hr PER PHARMACY IV 06/18/25 12:15 Diagnostic Test (Pha) 1 strip Q6HR 06/19/25 00:00 06/28/25 05:00 1 STRIP Insulin Human Regular FOLLOW SLIDING SCALE Q6HR SC 06/19/25 00:00 06/28/25 05:03 2 UNITS Dextrose 50 ml UD IV 06/18/25 22:00 Meropenem 50 ml @ 17 mls/hr DAILY@0100 IV 06/21/25 01:00 Cancel Morphine Sulfate 1 mg Q4HP PRN IV 06/26/25 11:45 Hold Acetaminophen/ Hydrocodone Bitart 1 tab Q4HPRN PRN PO 06/26/25 13:40 Acetaminophen/ Hydrocodone Bitart 1 tab Q4HP PRN PO 06/26/25 13:40 06/27/25 14:44 1 TAB Hydralazine HCl 10 mg Q6HP PRN IV 06/27/25 04:00 06/27/25 04:22 10 MG Furosemide 20 mg DAILY IV 06/27/25 10:00 06/27/25 09:17 20 MG Amiodarone HCl 200 mg Q12HR PO 06/27/25 10:00 Hold Meropenem 50 ml @ 17 mls/hr Q8H IV 06/27/25 18:00 06/28/25 01:52 17 MLS/HR Fat Emulsion Intravenous 75 ml/ Potassium Acetate 75 meq/Potassium Phosphate 22 meq/ Magnesium Sulfate 30 meq/ Multivitamins 10 ml/Chromium/ Copper/Manganese/ Zinc 1 ml/Insulin Human Regular 5 units/Amino Acids/ Dextrose 1,386.05 ml @ 58 mls/hr [id number] IV 06/27/25 22:00 06/28/25 21:59 06/27/25 22:12 58 MLS/HR Enteral Nutritional Formula 240 ml BIDWM PO 06/27/25 18:00 Laboratory Results Laboratory Tests 06/28/25 03:30 Chemistry Test 06/28/25 03:30 Albumin 2.6 g/dL (3.2-4.8) L Calcium Level 8.8 mg/dL (8.7-10.4) Magnesium Level 2.0 mg/dL (1.6-2.6) Phosphorus Level 4.9 mg/dL (2.4-5.1) Total Protein 5.6 g/dL (5.7-8.2) L LFT Test 06/28/25 03:30 Alanine Aminotransferase (ALT) 29 U/L (7-40) Alkaline Phosphatase 117 U/L (46-116) H Aspartate Amino Transferase (AST) 31 U/L (13-40) Total Bilirubin 0.3 mg/dL (0.2-1.0) Urinalysis Test 06/09/25 16:55 06/14/25 11:50 Urine Color Colorless (Yellow) Urine Clarity Clear (Clear) Urine pH 5.5 (5.0-9.0) Urine Specific [place] 1.007 (1.001-1.035) Urine Protein Negative (Negative) Urine Ketones Negative (Negative) Urine Blood 2+ /uL (Negative) H Urine Nitrite Negative (Negative) Urine Bilirubin Negative (Negative) Urine Urobilinogen Normal mg/dL (Negative) Urine Leukocyte Esterase Negative /uL (Negative) Urine RBC 38 /hpf (0 - 4) Urine Microscopic WBC 1 /HPF (0-5) Urine Squamous Epithelial Cells Few /hpf (<5) Urine Bacteria None seen /hpf (None Seen) Urine Glucose Normal mg/dL (Normal) Urine Creatinine 27.77 mg/dL (30.0-125.0) L Urine Protein/Creatinine Ratio 1.72 Urine Sodium 73 mmol/L (40-220) Urine Total Protein 47.7 mg/dL (1-14) H Blood Gas Results Test 06/27/25 15:35 Arterial Blood pH 7.404 (7.350-7.450) FiO2 % 28.0 Microbiology Microbiology Date/Time Source Procedure Growth Status 06/17/25 07:00 Stool Stool Culture - Final Complete 06/17/25 07:00 Stool Shiga Toxin I & II - Final Complete 06/16/25 10:30 Blood Blood Culture - Final NO GROWTH AFTER 5 DAYS OF INCUBATION. Complete 06/11/25 14:25 Nose MRSA Screen - Final Complete Assessment/Plan Assessment/Plan Impression: Acute hypoxic respiratory failure Dependence on supplemental oxygen Status post bowel resection secondary to ischemic bowel Obesity with a BMI of 35.9 Atrial fibrillation with RVR Acute kidney injury secondary to vasomotor nephropathy Sepsis Anemia Events: Patient remains extubated Currently on high flow supplemental oxygen alternating with BiPAP at IPAP 12, EPAP 5, FiO2 30% Taper FiO2 as tolerated Monitor respiratory status closely d/t increased oxygen requirements. Continue antibiotics On dobutamine drip for inotropic support Pain control Avoid oversedation TPN for nutritional support Monitor hemoglobin - 8.8 g/dL Transfuse if less than 7.0 g/dL. CXR demonstrates no acute abnormalities Labs and imaging reviewed. Rest of plan as noted below. Plan: S/p extubation Continue supplemental oxygen alternating with BiPAP PRN Titrate O2 to keep O2 saturation above 92%. Continue bronchodilators. Amiodarone drip. Continue antibiotics and antifungals. F/u cultures. Blood cultures: No growth 5 days. Monitor hgb. Supplement as necessary On Protonix BID Monitor renal function due to Acute kidney injury. Creatinine trending down. Diurese to euvolemia. Monitor electrolytes. Supplement as necessary. Nutritional support. On TPN Accucheks, ISS. GI/DVT prophylaxis. Condition: Critical Prognosis: Poor given multiple comorbidities. Rest of plan per hospitalist and other consultants. A total of 35 minutes of critical care time was spent reviewing the patient record, examining the patient, making a diagnostic and therapeutic plan, discussing this plan with the medical personnel, following up on diagnostic studies and following the patient for clinical stability excluding any and all procedures. At least 50% of this time was spent in direct, [id number] contact. Thank you for allowing me to participate in this patient's care. Further recommendations will depend on patient's clinical course. Please do not hesitate to contact me if you have any questions or concerns. This medical document was created using an electronic medical record system with [employer] system. Although this document has been carefully reviewed, there may still be some phonetic and typographical errors. These areas are purely typographical due to imperfections of the software programs, and do not reflect any compromise in the patient's medical care. Plan discussed with: Other (RN) My Orders Orders - LORENA SOLARES MD Procedure Category Date Status Time Chest Portable XY 06/27/25 Resulted 15:23 Abg W/ Co-Ox RT 06/27/25 Logged 15:23 Date of Service: Jun 27, 2025 Billing Provider: LORENA SOLARES MD Common Visit Codes: [id number] INP/OBS CARE(HIGH), [id number] CARE 30-74 MIN LORENA SOLARES MD Jun 28, 2025 08:47
--- NOTE | 2025-06-28 10:57 | DVHPN2 ---
Progress Note Date Seen: Jun 28, 2025 Medical Necessity Reason Pt with a Central, PICC or Fol: Yes The following are medically ne: Central Line, Engel Catheter Subjective Patient reports: Feels worse Objective vital signs Vital Sign Date Time Temp Pulse Resp B/P (MAP) Pulse Ox O2 Delivery O2 Flow Rate FiO2 06/28/25 10:37 111/50 06/28/25 10:26 96 96 Nasal BiPAP Mask 28 06/28/25 10:00 06/28/25 08:00 4 06/28/25 06:30 98.9 98.9 Total Intake and Output 06/27/25 06/27/25 06/28/25 15:00 23:00 07:00 Intake Total 573.29 ml 744 ml 457 ml Output Total 2480 ml 855 ml Balance 573.29 ml -1736 ml -398 ml medications Current Medications Medications Dose Ordered Sig/Bárbara Route Start Time Stop Time Status Last Admin Dose Admin Ondansetron HCl 4 mg Q4HP PRN IV 06/09/25 01:00 Cancel Acetaminophen 650 mg Q6HP PRN PO 06/09/25 01:00 06/10/25 20:15 650 MG Nitroglycerin 0.4 mg Q5MINP PRN SL 06/09/25 01:00 Ipratropium [place] 0.5 mg Q6HR NEB 06/14/25 10:15 06/28/25 07:37 0.5 MG Levalbuterol HCl 1.25 mg Q6HR NEB 06/15/25 00:00 06/28/25 07:37 1.25 MG Sodium Bicarbonate 75 ml/ Dextrose 1,075 ml @ 700 mls/hr Q1H33M IV 06/16/25 17:15 06/16/25 18:47 Cancel Pantoprazole Sodium 40 mg BID IV 06/17/25 10:00 06/28/25 10:36 40 MG Vancomycin HCl 0 ml @ 0 mls/hr UD IV 06/17/25 11:45 Bumetanide 1 mg BIDD IV 06/17/25 18:00 Cancel Micafungin Sodium 100 mg/Sodium Chloride 100 ml @ 100 mls/hr DAILY IV 06/19/25 10:00 06/28/25 10:37 100 MLS/HR Amino Acids 0 ml @ 0 mls/hr PER PHARMACY IV 06/18/25 12:15 Diagnostic Test (Pha) 1 strip Q6HR 06/19/25 00:00 06/28/25 05:00 1 STRIP Insulin Human Regular FOLLOW SLIDING SCALE Q6HR SC 06/19/25 00:00 06/28/25 05:03 2 UNITS Dextrose 50 ml UD IV 06/18/25 22:00 Meropenem 50 ml @ 17 mls/hr DAILY@0100 IV 06/21/25 01:00 Cancel Morphine Sulfate 1 mg Q4HP PRN IV 06/26/25 11:45 Hold Acetaminophen/ Hydrocodone Bitart 1 tab Q4HPRN PRN PO 06/26/25 13:40 Acetaminophen/ Hydrocodone Bitart 1 tab Q4HP PRN PO 06/26/25 13:40 06/27/25 14:44 1 TAB Hydralazine HCl 10 mg Q6HP PRN IV 06/27/25 04:00 06/27/25 04:22 10 MG Furosemide 20 mg DAILY IV 06/27/25 10:00 06/28/25 10:37 20 MG Amiodarone HCl 200 mg Q12HR PO 06/27/25 10:00 Hold Meropenem 50 ml @ 17 mls/hr Q8H IV 06/27/25 18:00 06/28/25 10:36 17 MLS/HR Fat Emulsion Intravenous 75 ml/ Potassium Acetate 75 meq/Potassium Phosphate 22 meq/ Magnesium Sulfate 30 meq/ Multivitamins 10 ml/Chromium/ Copper/Manganese/ Zinc 1 ml/Insulin Human Regular 5 units/Amino Acids/ Dextrose 1,386.05 ml @ 58 mls/hr [id number] IV 06/27/25 22:00 06/28/25 21:59 06/27/25 22:12 58 MLS/HR Enteral Nutritional Formula 240 ml BIDWM PO 06/27/25 18:00 Fat Emulsion Intravenous 75 ml/ Potassium Chloride 20 meq/ Potassium Acetate 65 meq/Magnesium Sulfate 20 meq/ Multivitamins 10 ml/Chromium/ Copper/Manganese/ Zinc 1 ml/Insulin Human Regular 5 units/Amino Acids/ Dextrose 1,283.55 ml @ 53 mls/hr [id number] IV 06/28/25 22:00 06/29/25 21:59 Examination: LUNGS:Abnormal laboratory and microbiology Laboratory Tests 06/28/25 03:30 Test 06/28/25 03:30 Range/Units Serum Glucose 129 H 74-106 mg/dL Microbiology Date/Time Source Procedure Growth Status 06/17/25 07:00 Stool Stool Culture - Final Complete 06/17/25 07:00 Stool Shiga Toxin I & II - Final Complete 06/16/25 10:30 Blood Blood Culture - Final NO GROWTH AFTER 5 DAYS OF INCUBATION. Complete 06/11/25 14:25 Nose MRSA Screen - Final Complete Problem List/Assessment/Plan Problem List/Assessment/Plan 54-year-old female past medical history of chronic kidney disease and recent admission for sepsis due to bacteremia presents to the hospital complaining of shortness of breath and developed respiratory failure in the setting of pneumonia. Acute kidney injury required acute HD temporarily now off Dr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 Flush with 200 mL free H2O Q6H. TF regimen will provide 1080 kcals, 49g Pro, and 1236 mL free H2O per 24 hrs. TF regimen will meet ~ 92% estimated energy needs and 52% estimated protein needs. 3) [facility] diet when medically feasible, pending ST approval 4) Refer to outpatient RD/[facility] for weight management 5) Follow-up with cardiology, pulmonology, or nephrology 6) Continue to monitor I&O, labs, and skin integrity Expected Outcomes/Goals: 1) patient to receive nutritional support within 7 days of NPO status 2) labs to improve 3) diet to advance 4) f/u in 2-3 days Critical Care Time (mins): 33 Sepsis reassessment post fluid Capillary Refill: < 3 seconds TIM MORALES MD Jun 28, 2025 10:57
[2025-06-28 12:22] LABS: Base Excess 2.7 mmol/L (-2.0-3.0)
--- NOTE | 2025-06-28 12:54 | DVHPN2 ---
Progress Note - Surgical Date Seen: Jun 28, 2025 Post op day Post op day: 11 Subjective Patient reports: No new complaints (Patient having a hard time breathing this morning, on BiPAP, currently NPO due to this.) Review of Systems: Deferred Objective Vital signs Vital Sign Date Time Temp Pulse Resp B/P (MAP) Pulse Ox O2 Delivery O2 Flow Rate FiO2 06/28/25 10:37 111/50 06/28/25 10:26 96 96 Nasal BiPAP Mask 28 06/28/25 10:00 25 06/28/25 08:00 4 06/28/25 06:30 98.9 98.9 Total Intake and Output 06/27/25 06/27/25 06/28/25 15:00 23:00 07:00 Intake Total 573.29 ml 744 ml 457 ml Output Total 2480 ml 855 ml Balance 573.29 ml -1736 ml -398 ml Medications Current Medications Medications Dose Ordered Sig/Bárbara Route Start Time Stop Time Status Last Admin Dose Admin Ondansetron HCl 4 mg Q4HP PRN IV 06/09/25 01:00 Cancel Acetaminophen 650 mg Q6HP PRN PO 06/09/25 01:00 06/10/25 20:15 650 MG Nitroglycerin 0.4 mg Q5MINP PRN SL 06/09/25 01:00 Ipratropium [place] 0.5 mg Q6HR NEB 06/14/25 10:15 06/28/25 07:37 0.5 MG Levalbuterol HCl 1.25 mg Q6HR NEB 06/15/25 00:00 06/28/25 07:37 1.25 MG Sodium Bicarbonate 75 ml/ Dextrose 1,075 ml @ 700 mls/hr Q1H33M IV 06/16/25 17:15 06/16/25 18:47 Cancel Pantoprazole Sodium 40 mg BID IV 06/17/25 10:00 06/28/25 10:36 40 MG Vancomycin HCl 0 ml @ 0 mls/hr UD IV 06/17/25 11:45 Bumetanide 1 mg BIDD IV 06/17/25 18:00 Cancel Micafungin Sodium 100 mg/Sodium Chloride 100 ml @ 100 mls/hr DAILY IV 06/19/25 10:00 06/28/25 10:37 100 MLS/HR Amino Acids 0 ml @ 0 mls/hr PER PHARMACY IV 06/18/25 12:15 Diagnostic Test (Pha) 1 strip Q6HR 06/19/25 00:00 06/28/25 12:44 1 STRIP Insulin Human Regular FOLLOW SLIDING SCALE Q6HR SC 06/19/25 00:00 06/28/25 12:42 2 UNITS Dextrose 50 ml UD IV 06/18/25 22:00 Meropenem 50 ml @ 17 mls/hr DAILY@0100 IV 06/21/25 01:00 Cancel Morphine Sulfate 1 mg Q4HP PRN IV 06/26/25 11:45 Hold Acetaminophen/ Hydrocodone Bitart 1 tab Q4HPRN PRN PO 06/26/25 13:40 Acetaminophen/ Hydrocodone Bitart 1 tab Q4HP PRN PO 06/26/25 13:40 06/27/25 14:44 1 TAB Hydralazine HCl 10 mg Q6HP PRN IV 06/27/25 04:00 06/27/25 04:22 10 MG Furosemide 20 mg DAILY IV 06/27/25 10:00 06/28/25 10:37 20 MG Amiodarone HCl 200 mg Q12HR PO 06/27/25 10:00 Hold Meropenem 50 ml @ 17 mls/hr Q8H IV 06/27/25 18:00 06/28/25 10:36 17 MLS/HR Fat Emulsion Intravenous 75 ml/ Potassium Acetate 75 meq/Potassium Phosphate 22 meq/ Magnesium Sulfate 30 meq/ Multivitamins 10 ml/Chromium/ Copper/Manganese/ Zinc 1 ml/Insulin Human Regular 5 units/Amino Acids/ Dextrose 1,386.05 ml @ 58 mls/hr [id number] IV 06/27/25 22:00 06/28/25 21:59 06/27/25 22:12 58 MLS/HR Enteral Nutritional Formula 240 ml BIDWM PO 06/27/25 18:00 Fat Emulsion Intravenous 75 ml/ Potassium Chloride 20 meq/ Potassium Acetate 65 meq/Magnesium Sulfate 20 meq/ Multivitamins 10 ml/Chromium/ Copper/Manganese/ Zinc 1 ml/Insulin Human Regular 5 units/Amino Acids/ Dextrose 1,283.55 ml @ 53 mls/hr [id number] IV 06/28/25 22:00 06/29/25 21:59 Laboratory Laboratory Tests 06/28/25 03:30 Test 06/28/25 03:30 Range/Units Serum Glucose 129 H 74-106 mg/dL Microbiology Date/Time Source Procedure Growth Status 06/17/25 07:00 Stool Stool Culture - Final Complete 06/17/25 07:00 Stool Shiga Toxin I & II - Final Complete 06/16/25 10:30 Blood Blood Culture - Final NO GROWTH AFTER 5 DAYS OF INCUBATION. Complete 06/11/25 14:25 Nose MRSA Screen - Final Complete Examination: GENERAL:Abnormal (On BiPAP), ABDOMEN:Abnormal (Nondistended, midline wound with a wound VAC placed no surrounding signs of infection, ileostomy with bilious output in bag and mucosa pink, bilateral drains with very minimal serosanguineous output, nontender) Labs and/or images reviewed: Labs reviewed by me (Leukocytosis holding steady at 11) Problem List/Assessment/Plan Assessment and Plan Mrs. Penaloza is a 54-year-old female who has been in the hospital since June 08 due to pneumonia and CHF exacerbation that resulted in intubation. I was consulted on 06/17 due to severe colonic distention and pneumatosis seen on CT from that day. She ended receiving a subtotal colectomy colectomy, with primary ileocolic anastomosis and protective loop ileostomy. Interval: Patient is fully awake and extubated but this morning on BiPAP, so she is currently NPO. If she is able to come off the BiPAP okay to resume clear liquid diet, if patient gets reintubated then please place a NG tube and start trickle feeds. Surgeries: 06/17: Exploratory laparotomy, subtotal colectomy (resection of ascending and transverse colon), temporary abdominal closure 06/19: Exploratory laparotomy, takedown of temporary abdominal dressing, wash out, resection of descending colon 06/20: Exploratory laparotomy, takedown of temporary abdominal dressing, washout, ileocolic anastomosis, protective loop ileostomy, drain placement x2, fascial closure 1. Clear liquid diet, we with ensure clears supplementation if she comes off the BiPAP: If patient gets reintubated then she will need a NG tube and we can start trickle feeds 2. Continue with TPN, she was malnourished, and she is barely now starting to eat clears 3. Wound VAC for midline wound 4. Drain stripping and emptying once per shift and p.r.n. 5. Recommend continuation of IV antibiotics for a total of 7 days from the last surgery on 06/20 6. No GI cathartic medications 7. Physical therapy consultation My Orders My Orders Orders - SONAM ALCARAZ MD Procedure Category Date Status Time Clear Liq Diet DIET 06/27/25 Transmitted Lunch Nutritional PHA 06/27/25 In Process Supplements (Ensure 18:00 Refer To Physical DEANDRA 06/27/25 In Process Therapy 13:29 Plan discussed with Plan discussed with: Patient Visit Coding Surgery Date of Service if different f: Jun 28, 2025 Billing Provider: SONAM ALCARAZ MD Surgery Visit Codes: [id number] INP/OBS CARE(HIGH) SONAM ALCARAZ MD Jun 28, 2025 12:54
--- NOTE | 2025-06-28 13:54 | DVHPNRES ---
Progress Note Date Seen: Jun 28, 2025 Resident Creating Document: ELISEO GOMEZ RESDIENT Medical Necessity Reason Pt with a Central, PICC or Fol: Yes The following are medically ne: Central Line, Engel Catheter Subjective Review of Systems Patient is seen examined at bedside. Patient is status post extubation, in respiratory distress, on BiPAP. Objective vital signs Vital Sign Date Time Temp Pulse Resp B/P (MAP) Pulse Ox O2 Delivery O2 Flow Rate FiO2 06/28/25 12:55 98 119/64 98 28 06/28/25 12:45 21 06/28/25 12:00 Bi-Pap+ 06/28/25 12:00 99.5 99.5 06/28/25 08:00 4 Total Intake and Output 06/27/25 06/27/25 06/28/25 15:00 23:00 07:00 Intake Total 573.29 ml 744 ml 515 ml Output Total 2480 ml 855 ml Balance 573.29 ml -1736 ml -340 ml medications Current Medications Medications Dose Ordered Sig/Bárbara Route Start Time Stop Time Status Last Admin Dose Admin Ondansetron HCl 4 mg Q4HP PRN IV 06/09/25 01:00 Cancel Acetaminophen 650 mg Q6HP PRN PO 06/09/25 01:00 06/10/25 20:15 650 MG Nitroglycerin 0.4 mg Q5MINP PRN SL 06/09/25 01:00 Ipratropium [place] 0.5 mg Q6HR NEB 06/14/25 10:15 06/28/25 12:55 0.5 MG Levalbuterol HCl 1.25 mg Q6HR NEB 06/15/25 00:00 06/28/25 12:56 1.25 MG Sodium Bicarbonate 75 ml/ Dextrose 1,075 ml @ 700 mls/hr Q1H33M IV 06/16/25 17:15 06/16/25 18:47 Cancel Pantoprazole Sodium 40 mg BID IV 06/17/25 10:00 06/28/25 10:36 40 MG Vancomycin HCl 0 ml @ 0 mls/hr UD IV 06/17/25 11:45 Bumetanide 1 mg BIDD IV 06/17/25 18:00 Cancel Micafungin Sodium 100 mg/Sodium Chloride 100 ml @ 100 mls/hr DAILY IV 06/19/25 10:00 06/28/25 10:37 100 MLS/HR Amino Acids 0 ml @ 0 mls/hr PER PHARMACY IV 06/18/25 12:15 Diagnostic Test (Pha) 1 strip Q6HR 06/19/25 00:00 06/28/25 12:44 1 STRIP Insulin Human Regular FOLLOW SLIDING SCALE Q6HR SC 06/19/25 00:00 06/28/25 12:42 2 UNITS Dextrose 50 ml UD IV 06/18/25 22:00 Meropenem 50 ml @ 17 mls/hr DAILY@0100 IV 06/21/25 01:00 Cancel Morphine Sulfate 1 mg Q4HP PRN IV 06/26/25 11:45 Hold Acetaminophen/ Hydrocodone Bitart 1 tab Q4HPRN PRN PO 06/26/25 13:40 Acetaminophen/ Hydrocodone Bitart 1 tab Q4HP PRN PO 06/26/25 13:40 06/27/25 14:44 1 TAB Hydralazine HCl 10 mg Q6HP PRN IV 06/27/25 04:00 06/27/25 04:22 10 MG Furosemide 20 mg DAILY IV 06/27/25 10:00 06/28/25 10:37 20 MG Amiodarone HCl 200 mg Q12HR PO 06/27/25 10:00 Hold Meropenem 50 ml @ 17 mls/hr Q8H IV 06/27/25 18:00 06/28/25 10:36 17 MLS/HR Fat Emulsion Intravenous 75 ml/ Potassium Acetate 75 meq/Potassium Phosphate 22 meq/ Magnesium Sulfate 30 meq/ Multivitamins 10 ml/Chromium/ Copper/Manganese/ Zinc 1 ml/Insulin Human Regular 5 units/Amino Acids/ Dextrose 1,386.05 ml @ 58 mls/hr [id number] IV 06/27/25 22:00 06/28/25 21:59 06/27/25 22:12 58 MLS/HR Enteral Nutritional Formula 240 ml BIDWM PO 06/27/25 18:00 Fat Emulsion Intravenous 75 ml/ Potassium Chloride 20 meq/ Potassium Acetate 65 meq/Magnesium Sulfate 20 meq/ Multivitamins 10 ml/Chromium/ Copper/Manganese/ Zinc 1 ml/Insulin Human Regular 5 units/Amino Acids/ Dextrose 1,283.55 ml @ 53 mls/hr [id number] IV 06/28/25 22:00 9/23/25 21:59 Examination General Appearance: Alert, Oriented X3, in moderate respiratory distress HEENT: Atraumatic, PERRLA, EOMI, Mucous membrane moist/pink Respiratory: Bilateral crackles Cardiovascular: Regular rate, Normal S1, Normal S2, No murmurs, no chest wall tenderness Abdominal: Normal bowel sounds, Soft, No tenderness, No hepatospenomegaly, No masses Extremities: No clubbing, No cyanosis, No edema, Normal pulses, No tenderness/swelling Skin: Wound VAC on the surgical area, with no sign of infection or drainage laboratory and microbiology Laboratory Tests 06/28/25 03:30 Test 06/28/25 03:30 Range/Units Serum Glucose 129 H 74-106 mg/dL Microbiology Date/Time Source Procedure Growth Status 06/17/25 07:00 Stool Stool Culture - Final Complete 06/17/25 07:00 Stool Shiga Toxin I & II - Final Complete 06/16/25 10:30 Blood Blood Culture - Final NO GROWTH AFTER 5 DAYS OF INCUBATION. Complete 06/11/25 14:25 Nose MRSA Screen - Final Complete Labs and/or images reviewed: Labs reviewed by me Problem List/Assessment/Plan Problem List/Assessment/Plan This is a 54-year-old female with past medical history of HFpEF, paroxysmal AFib, severe TR, severe MR, prediabetic, asthma, CKD 3A, morbid obesity, came to ER due to shortness of breaths, cough and bilateral lower limb swelling for 2 weeks. Admitted on 06/09, put on BiPAP but the patient's condition worsened and got intubated on 06/11. Extubated on 06/26. NEURO: * Extubated on 06/26 CARDIOVASCULAR: Acute on chronic diastolic heart failure exacerbation Paroxysmal Atrial fibrillation with RVR Pulmonary edema due to heart failure Severe aortic insufficiency, mitral valve insufficiency, tricuspid regurg Acquired coagulopathy * Chads Vasc: 2 * Per Cardiology:patient underwent a transesophageal echocardiogram on 03/26/2025 which revealed an EF of 60% with severe aortic insufficiency and with moderate mitral insufficiency. * We will recommend to continue antiarrhythmic therapy with amiodarone, DOAC therapy with Eliquis, and beta-octavio for rate control . * Outpatient follow up with Dr. Melo in [place] for aortic valve replacement with possible TAVR as well as possible mitral clip. * Lasix 20 IV daily * Dobutamine Drip at 2.5 PULMONARY: Acute hypoxic respiratory failure, likely due to pneumonia/COPD exacerbation/asthma exacerbation COPD on 4 L at home Hx of Pna and intubation 2022 Sepsis secondary to Acute Gram-positive and Gram-negative pneumonia Likely COPD on 4L home O2 History of asthma * IV vancomycin and IV meropenem 06/17, added micafungin 06/18 * Nebulized treatments GASTROINTESTINAL: Pneumatosis intestinalis and megacolon likely ischemic bowel Perforation and peritonitis Status s/p laparotomy, subtotal colectomy (ascending and transfer) 06/17, resection of descending colon 06/19, ileocolic anastomosis with protective loop ileostomy, drain placement 06/20 Transaminitis, 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 Evidence of portal venous gas * liver ultrasound shows hepatic steatosis * Surgeon - strict NPO, NG tube to LIS, wound VAC for midline wound GENITOURINARY: NYASIA secondary to hemodynamically mediated/VMN requiring hemodialysis 06/20 (1 session) ? Chronic kidney disease Anemia of CKD * Kidney ultrasound shows Normal sonographic appearance of the kidneys. No hydronephrosis. 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 Critical care time spent more than 57 minutes, including patient care, chart review, and updating the family. Excluding any procedures. Case discussed with Dr. Benjamin Plan discussed with: Patient Dietary Evaluation Review Comments: 1) If patient remains NPO > 7 days, consider EN/TPN to meet at least 75% of estimated daily needs 2) If gut is preferred, consider Nepro @ 25 mL/hr goal rate as tolerated. Flush with 200 mL free H2O Q6H. TF regimen will provide 1080 kcals, 49g Pro, and 1236 mL free H2O per 24 hrs. TF regimen will meet ~ 92% estimated energy needs and 52% estimated protein needs. 3) Advance to 60g CCHO renal cardiac diet when medically feasible, pending ST approval 4) Refer to outpatient RD/CD[facility] for weight management 5) Follow-up with cardiology, pulmonology, or nephrology 6) Continue to monitor I&O, labs, and skin integrity Expected Outcomes/Goals: 1) patient to receive nutritional support within 7 days of NPO status 2) labs to improve 3) diet to advance 4) f/u in 2-3 days Sepsis reassessment post fluid Capillary Refill: < 3 seconds Date of Service: Jun 28, 2025 Billing Provider: ELZA BENJAMIN MD Common Visit Codes: 26895-UIPOEGGH CARE 30-74 MIN ELISEO GOMEZ RESDIDOMONIQUE Jun 28, 2025 13:54 ELZA BENJAMIN MD Jun 29, 2025 15:56
[2025-06-28] MEDS: FUROSEMIDE 20 MG/2 ML VIAL IV ONE (14:10)
[2025-06-28] MEDS: VANCOMYCIN 500mg/100mL 100 ML IV ONE (17:23)
[2025-06-28] MEDS: DOBUTamine 1000MCG/ML 250 ML IV SCH (17:23)
[2025-06-28 18:24] LABS: INR 1.07 (0.9-1.15); Partial Thromboplastin Time 24.4 SEC (24.5-34.5); Prothrombin Time 11.3 sec (9.3-11.8)
[2025-06-28] MEDS: TPN PER PHARMACY IV NR (21:37)
--- NOTE | 2025-06-28 23:53 | DVHPN2 ---
Progress Note - Dictate Date Seen: Jun 28, 2025 Medical Necessity Reason Pt with a Central, PICC or Fol: Yes The following are medically ne: Central Line, Engel Catheter Subjective Patient was seen and evaluated in follow up in the ICU. Patient is on Bi-PAP. Patient is complaining of SOB. Patient is currently NPO. WBC 11, HGB 8.0, HCT 25.4, BUN 77, Water Commissioner 1.49. vital signs Vital Sign Date Time Temp Pulse Resp B/P (MAP) Pulse Ox O2 Delivery O2 Flow Rate FiO2 06/28/25 22:10 98 110/43 99 Nasal BiPAP Mask 28 06/28/25 22:00 26 06/28/25 20:00 99.8 99.8 06/28/25 08:00 4 Total Intake and Output 06/27/25 06/27/25 06/28/25 15:00 23:00 07:00 Intake Total 573.29 ml 744 ml 515 ml Output Total 2480 ml 855 ml Balance 573.29 ml -1736 ml -340 ml medications Current Medications Medications Dose Ordered Sig/Bárbara Route Start Time Stop Time Status Last Admin Dose Admin Ondansetron HCl 4 mg Q4HP PRN IV 06/09/25 01:00 Cancel Acetaminophen 650 mg Q6HP PRN PO 06/09/25 01:00 06/10/25 20:15 650 MG Nitroglycerin 0.4 mg Q5MINP PRN SL 06/09/25 01:00 Ipratropium Jean 0.5 mg Q6HR NEB 06/14/25 10:15 06/28/25 18:22 0.5 MG Levalbuterol HCl 1.25 mg Q6HR NEB 06/15/25 00:00 06/28/25 18:22 1.25 MG Sodium Bicarbonate 75 ml/ Dextrose 1,075 ml @ 700 mls/hr Q1H33M IV 06/16/25 17:15 06/16/25 18:47 Cancel Pantoprazole Sodium 40 mg BID IV 06/17/25 10:00 06/28/25 21:38 40 MG Vancomycin HCl 0 ml @ 0 mls/hr UD IV 06/17/25 11:45 Bumetanide 1 mg BIDD IV 06/17/25 18:00 Cancel Micafungin Sodium 100 mg/Sodium Chloride 100 ml @ 100 mls/hr DAILY IV 06/19/25 10:00 06/28/25 10:37 100 MLS/HR Amino Acids 0 ml @ 0 mls/hr PER PHARMACY IV 06/18/25 12:15 Diagnostic Test (Pha) 1 strip Q6HR 06/19/25 00:00 06/28/25 17:45 1 STRIP Insulin Human Regular FOLLOW SLIDING SCALE Q6HR SC 06/19/25 00:00 06/28/25 12:42 2 UNITS Dextrose 50 ml UD IV 06/18/25 22:00 Meropenem 50 ml @ 17 mls/hr DAILY@0100 IV 06/21/25 01:00 Cancel Morphine Sulfate 1 mg Q4HP PRN IV 06/26/25 11:45 Hold Acetaminophen/ Hydrocodone Bitart 1 tab Q4HPRN PRN PO 06/26/25 13:40 Acetaminophen/ Hydrocodone Bitart 1 tab Q4HP PRN PO 06/26/25 13:40 06/27/25 14:44 1 TAB Furosemide 20 mg DAILY IV 06/27/25 10:00 06/28/25 10:37 20 MG Amiodarone HCl 200 mg Q12HR PO 06/27/25 10:00 Hold Meropenem 50 ml @ 17 mls/hr Q8H IV 06/27/25 18:00 06/28/25 19:08 17 MLS/HR Enteral Nutritional Formula 240 ml BIDWM PO 06/27/25 18:00 Fat Emulsion Intravenous 75 ml/ Potassium Chloride 20 meq/ Potassium Acetate 65 meq/Magnesium Sulfate 20 meq/ Multivitamins 10 ml/Chromium/ Copper/Manganese/ Zinc 1 ml/Insulin Human Regular 5 units/Amino Acids/ Dextrose 1,283.55 ml @ 53 mls/hr [id number] IV 06/28/25 22:00 06/29/25 21:59 06/28/25 21:37 53 MLS/HR Dobutamine HCl/ Dextrose 250 ml @ 14.715 mls/ hr Q17H IV 06/28/25 16:30 06/28/25 17:23 14.715 MLS/HR objective GENERAL: Alert and oriented x 3. No acute distress. EYES: PERRL, EOMI. Anicteric. HENT: Moist mucous membranes. LUNGS: Decreased breath sounds. CARDIOVASCULAR: Regular rate and rhythm. ABDOMEN: Soft, nontender and nondistended. EXTREMITIES: No edema. NEUROLOGIC: No focal neurological deficits. SKIN: Warm, dry. laboratory and microbiology Laboratory Tests 06/28/25 03:30 Test 06/28/25 03:30 Range/Units Serum Glucose 129 H 74-106 mg/dL Problem List Chronic HFpEF, NYHA class IV. Paroxysmal atrial fibrillation, stage III, now NSR (on amiodarone/Elqiuis therapy). Severe aortic valve and mitral valve insufficiency. Acute hypoxic respiratory failure. Asthma. Chronic kidney disease. Thyroid disease. Prediabetes, newly diagnosed. Morbid obesity. History of tobacco use. Assessment/Plan Continued all current supportive medical care. Nitro SL. GI prophylactics. Diuretics with Lasix. IV antibiotics as ordered. Nebulized breathing treatments. IV Hydralazine for SBP >150. Additional plan as per the hospital course. Critical care time of 45 minutes provided to include time spent evaluation of patient at bedside, when appropriate patient/family education for diagnosis, treatment plan, review of pertinent medical information and discussion of care with specialty providers and PCP. Dietary Evaluation Review Comments: 1) If patient remains NPO > 7 days, consider EN/TPN to meet at least 75% of estimated daily needs 2) If gut is preferred, consider Nepro @ 25 mL/hr goal rate as tolerated. Flush with 200 mL free H2O Q6H. TF regimen will provide 1080 kcals, 49g Pro, and 1236 mL free H2O per 24 hrs. TF regimen will meet ~ 92% estimated energy needs and 52% estimated protein needs. 3) [facility] when medically feasible, pending ST approval 4) Refer to outpatient RD/[facility] for weight management 5) Follow-up with cardiology, pulmonology, or nephrology 6) Continue to monitor I&O, labs, and skin integrity Expected Outcomes/Goals: 1) patient to receive nutritional support within 7 days of NPO status 2) labs to improve 3) diet to advance 4) f/u in 2-3 days Plan discussed with: Patient Capillary Refill: < 3 seconds URBANO TRUONG MD Jun 28, 2025 23:53
[2025-06-29] VITALS (115 sets, daily range): BP systolic 100–178; BP diastolic 31–65; PULSE 80–123; RESP 14–34; TEMP 98.4–99.1; O2SAT 98–100
[2025-06-29 04:21] LABS: Hemoglobin 7.5 g/dL (12.2-16.2); Mean Corpuscular Hemoglobin 27.0 pg (28.0-32.0); Nucleated Red Blood Cells % 0.1 %
[2025-06-29 04:28] LABS: Hematocrit 23.9 % (36.0-46.0); Mean Corpuscular Volume 85.9 fL (80.0-100.0)
[2025-06-29 04:32] LABS: Anion Gap 15 (5-15); BUN/Creatinine Ratio 62.1 (10.0-20.0); Calcium 8.8 mg/dL (8.7-10.4); Carbon Dioxide 27 mmol/L (20-31); Chloride 106 mmol/L (98-107); Magnesium 2.5 mg/dL (1.6-2.6); Potassium 4.1 mmol/L (3.5-5.1)
[2025-06-29 04:33] LABS: Bilirubin, Total 0.5 mg/dL (0.2-1.0)
[2025-06-29 04:40] LABS: Glucose 136 mg/dL (74-106); Sodium 148 mmol/L (136-145)
[2025-06-29 04:41] LABS: Alanine Aminotransferase 59 U/L (7-40); Albumin 2.6 g/dL (3.2-4.8); Alkaline Phosphatase 123 U/L (46-116); Blood Urea Nitrogen 95 mg/dL (9-23); Total Protein 5.5 g/dL (5.7-8.2)
--- NOTE | 2025-06-29 04:58 | DVH ---
CHEST RADIOGRAPH Indication: pneumonia Technique: Single frontal view of the chest was obtained COMPARISON: XY CHEST XRAY 1 VIEW on DOS: 06/28/25, XY CHEST PORTABLE on DOS: 06/27/25, XY CHEST XRAY 1 VIEW on DOS: 06/26/25, XY CHEST XRAY 1 VIEW on DOS: 06/25/25, XY CHEST XRAY 1 VIEW on DOS: 06/24/25 FINDINGS: Lines and Tubes: Right internal jugular central venous access catheter unchanged. Lungs: Clear Pleura: No effusion. No pneumothorax. Cardiomediastinal contours: Unremarkable Bones: Unremarkable IMPRESSION: 1. No acute cardiopulmonary disease. 2. Right IJ catheter unchanged.
[2025-06-29] MEDS: MORPHINE SULFATE INJ 2 MG/ml SYRG IV PRN (05:38)
[2025-06-29 07:52] LABS: Base Excess 3.2 mmol/L (-2.0-3.0)
--- NOTE | 2025-06-29 09:55 | DVHPN2 ---
Progress Note Date Seen: Jun 29, 2025 Medical Necessity Reason Pt with a Central, PICC or Fol: Yes The following are medically ne: Central Line, Engel Catheter Subjective Patient reports: Feels better Objective vital signs Vital Sign Date Time Temp Pulse Resp B/P (MAP) Pulse Ox O2 Delivery O2 Flow Rate FiO2 06/29/25 08:59 137/48 06/29/25 08:45 100 Nasal Cannula* 4 36 06/29/25 08:35 84 06/29/25 08:00 16 06/29/25 04:00 99.0 99.0 Total Intake and Output 06/28/25 06/28/25 06/29/25 15:00 23:00 07:00 Intake Total 581 ml 678.515 ml 573.9 ml Output Total 840 ml 1200 ml Balance 581 ml -161.485 ml -626.1 ml medications Current Medications Medications Dose Ordered Sig/Bárbara Route Start Time Stop Time Status Last Admin Dose Admin Ondansetron HCl 4 mg Q4HP PRN IV 06/09/25 01:00 Cancel Acetaminophen 650 mg Q6HP PRN PO 06/09/25 01:00 06/10/25 20:15 650 MG Nitroglycerin 0.4 mg Q5MINP PRN SL 06/09/25 01:00 Ipratropium [place] 0.5 mg Q6HR NEB 06/14/25 10:15 06/29/25 06:47 0.5 MG Levalbuterol HCl 1.25 mg Q6HR NEB 06/15/25 00:00 06/29/25 06:47 1.25 MG Sodium Bicarbonate 75 ml/ Dextrose 1,075 ml @ 700 mls/hr Q1H33M IV 06/16/25 17:15 06/16/25 18:47 Cancel Pantoprazole Sodium 40 mg BID IV 06/17/25 10:00 06/28/25 21:38 40 MG Vancomycin HCl 0 ml @ 0 mls/hr UD IV 06/17/25 11:45 Bumetanide 1 mg BIDD IV 06/17/25 18:00 Cancel Micafungin Sodium 100 mg/Sodium Chloride 100 ml @ 100 mls/hr DAILY IV 06/19/25 10:00 06/28/25 10:37 100 MLS/HR Amino Acids 0 ml @ 0 mls/hr PER PHARMACY IV 06/18/25 12:15 Diagnostic Test (Pha) 1 strip Q6HR 06/19/25 00:00 06/29/25 05:57 1 STRIP Insulin Human Regular FOLLOW SLIDING SCALE Q6HR SC 06/19/25 00:00 06/29/25 05:57 2 UNITS Dextrose 50 ml UD IV 06/18/25 22:00 Meropenem 50 ml @ 17 mls/hr DAILY@0100 IV 06/21/25 01:00 Cancel Morphine Sulfate 1 mg Q4HP PRN IV 06/26/25 11:45 Hold 06/29/25 05:38 1 MG Acetaminophen/ Hydrocodone Bitart 1 tab Q4HP PRN PO 06/26/25 13:40 06/27/25 14:44 1 TAB Furosemide 20 mg DAILY IV 06/27/25 10:00 06/28/25 10:37 20 MG Amiodarone HCl 200 mg Q12HR PO 06/27/25 10:00 Hold Meropenem 50 ml @ 17 mls/hr Q8H IV 06/27/25 18:00 06/29/25 02:00 17 MLS/HR Enteral Nutritional Formula 240 ml BIDWM PO 06/27/25 18:00 Fat Emulsion Intravenous 75 ml/ Potassium Chloride 20 meq/ Potassium Acetate 65 meq/Magnesium Sulfate 20 meq/ Multivitamins 10 ml/Chromium/ Copper/Manganese/ Zinc 1 ml/Insulin Human Regular 5 units/Amino Acids/ Dextrose 1,283.55 ml @ 53 mls/hr [id number] IV 06/28/25 22:00 06/29/25 21:59 06/28/25 21:37 53 MLS/HR Dobutamine HCl/ Dextrose 250 ml @ 14.715 mls/ hr Q17H IV 06/28/25 16:30 06/29/25 08:59 14.715 MLS/HR Morphine Sulfate 1 mg Q4HP PRN IV 06/29/25 05:30 Examination: GENERAL:Abnormal, LUNGS:Abnormal, SKIN:Normal laboratory and microbiology Laboratory Tests 06/29/25 03:30 Test 06/29/25 03:30 Range/Units Serum Glucose 136 H 74-106 mg/dL Microbiology Date/Time Source Procedure Growth Status 06/17/25 07:00 Stool Stool Culture - Final Complete 06/17/25 07:00 Stool Shiga Toxin I & II - Final Complete 06/16/25 10:30 Blood Blood Culture - Final NO GROWTH AFTER 5 DAYS OF INCUBATION. Complete 06/11/25 14:25 Nose MRSA Screen - Final Complete Problem List/Assessment/Plan Problem List/Assessment/Plan 54-year-old female past medical history of chronic kidney disease and recent admission for sepsis due to bacteremia presents to the hospital complaining of shortness of breath and developed respiratory failure in the setting of pneumonia. Acute kidney injury required acute HD temporarily now off Dr. [facility], ckd 3a Acute respiratory failure, intubated on ventilator/extubated Septic shock secondary to pneumonia COPD exacerbation Chronic diastolic Congestive heart failure/ AFib with RVR Ischemic bowel status post ex lap and bowel resection and ileostomy Anemia due to blood loss Recommendations currently extubated on bipap yesterday today on NC no further HD currently on dobutamine Diuretics IV rec negative balance monitor uop replace electrolytes as needed Plan discussed with: Patient My Orders My Orders Orders - TIM MORALES MD Procedure Category Date Status Time Basic Metabolic Panel LAB 06/30/25 Verified 04:00 Complete Blood Count LAB 06/30/25 Verified 04:00 Dietary Evaluation Review Comments: 1) If patient remains NPO > 7 days, consider EN/TPN to meet at least 75% of estimated daily needs 2) If gut is preferred, consider Nepro @ 25 mL/hr goal rate as tolerated. Flush with 200 mL free H2O Q6H. TF regimen will provide 1080 kcals, 49g Pro, and 1236 mL free H2O per 24 hrs. TF regimen will meet ~ 92% estimated energy needs and 52% estimated protein needs. 3) Advance to 60g CCHO renal cardiac diet when medically feasible, pending ST approval 4) Refer to outpatient RD/[facility] for weight management 5) Follow-up with cardiology, pulmonology, or nephrology 6) Continue to monitor I&O, labs, and skin integrity Expected Outcomes/Goals: 1) patient to receive nutritional support within 7 days of NPO status 2) labs to improve 3) diet to advance 4) f/u in 2-3 days Sepsis reassessment post fluid Capillary Refill: < 3 seconds TIM MORALES MD Jun 29, 2025 09:55
[2025-06-29] MEDS: AMIODARONE HCL 200 MG TAB PO ONE (11:30)
[2025-06-29] MEDS: LIDOCAINE 1% (LOCAL ANESTH.) PF 5ml SDV ID ONE (12:00)
--- NOTE | 2025-06-29 12:53 | DVHPN2 ---
Progress Note - Surgical Date Seen: Jun 29, 2025 Post op day Post op day: 12 Subjective Patient reports: Feels better (Patient feels good this morning, some minor abdominal pain complaints, tolerating some clear liquid diet, afebrile.) Review of Systems: Deferred Objective Vital signs Vital Sign Date Time Temp Pulse Resp B/P (MAP) Pulse Ox O2 Delivery O2 Flow Rate FiO2 06/29/25 12:35 118 24 100 06/29/25 12:29 Nasal Cannula* 2 28 06/29/25 11:30 100/54 (69) 06/29/25 08:00 99.1 99.1 Total Intake and Output 06/28/25 06/28/25 06/29/25 15:00 23:00 07:00 Intake Total 581 ml 678.515 ml 573.9 ml Output Total 840 ml 1200 ml Balance 581 ml -161.485 ml -626.1 ml Medications Current Medications Medications Dose Ordered Sig/Bárbara Route Start Time Stop Time Status Last Admin Dose Admin Ondansetron HCl 4 mg Q4HP PRN IV 06/09/25 01:00 Cancel Acetaminophen 650 mg Q6HP PRN PO 06/09/25 01:00 06/10/25 20:15 650 MG Nitroglycerin 0.4 mg Q5MINP PRN SL 06/09/25 01:00 Ipratropium [place] 0.5 mg Q6HR NEB 06/14/25 10:15 06/29/25 12:29 0.5 MG Levalbuterol HCl 1.25 mg Q6HR NEB 06/15/25 00:00 06/29/25 12:29 1.25 MG Sodium Bicarbonate 75 ml/ Dextrose 1,075 ml @ 700 mls/hr Q1H33M IV 06/16/25 17:15 06/16/25 18:47 Cancel Pantoprazole Sodium 40 mg BID IV 06/17/25 10:00 06/29/25 10:16 40 MG Vancomycin HCl 0 ml @ 0 mls/hr UD IV 06/17/25 11:45 Bumetanide 1 mg BIDD IV 06/17/25 18:00 Cancel Micafungin Sodium 100 mg/Sodium Chloride 100 ml @ 100 mls/hr DAILY IV 06/19/25 10:00 06/29/25 10:16 100 MLS/HR Amino Acids 0 ml @ 0 mls/hr PER PHARMACY IV 06/18/25 12:15 Diagnostic Test (Pha) 1 strip Q6HR 06/19/25 00:00 06/29/25 11:41 1 STRIP Insulin Human Regular FOLLOW SLIDING SCALE Q6HR SC 06/19/25 00:00 06/29/25 11:41 2 UNITS Dextrose 50 ml UD IV 06/18/25 22:00 Meropenem 50 ml @ 17 mls/hr DAILY@0100 IV 06/21/25 01:00 Cancel Morphine Sulfate 1 mg Q4HP PRN IV 06/26/25 11:45 Hold 06/29/25 05:38 1 MG Acetaminophen/ Hydrocodone Bitart 1 tab Q4HP PRN PO 06/26/25 13:40 06/27/25 14:44 1 TAB Furosemide 20 mg DAILY IV 06/27/25 10:00 06/29/25 10:17 20 MG Meropenem 50 ml @ 17 mls/hr Q8H IV 06/27/25 18:00 06/29/25 10:15 17 MLS/HR Enteral Nutritional Formula 240 ml BIDWM PO 06/27/25 18:00 Fat Emulsion Intravenous 75 ml/ Potassium Chloride 20 meq/ Potassium Acetate 65 meq/Magnesium Sulfate 20 meq/ Multivitamins 10 ml/Chromium/ Copper/Manganese/ Zinc 1 ml/Insulin Human Regular 5 units/Amino Acids/ Dextrose 1,283.55 ml @ 53 mls/hr [id number] IV 06/28/25 22:00 06/29/25 21:59 06/28/25 21:37 53 MLS/HR Dobutamine HCl/ Dextrose 250 ml @ 14.715 mls/ hr Q17H IV 06/28/25 16:30 06/29/25 08:59 14.715 MLS/HR Morphine Sulfate 1 mg Q4HP PRN IV 06/29/25 05:30 Fat Emulsion Intravenous 100 ml/Potassium Chloride 10 meq/ Potassium Acetate 65 meq/ Multivitamins 10 ml/Chromium/ Copper/Manganese/ Zinc 1 ml/Insulin Human Regular 5 units/Amino Acids/ Dextrose 1,298.55 ml @ 54 mls/hr Q24H3M IV 06/29/25 22:00 06/30/25 21:59 Amiodarone HCl 200 mg Q12HR PO 06/29/25 22:00 Sodium Chloride 10 ml QSHIFT@10,22 IV 06/29/25 22:00 Laboratory Laboratory Tests 06/29/25 03:30 Test 06/29/25 03:30 Range/Units Serum Glucose 136 H 74-106 mg/dL Microbiology Date/Time Source Procedure Growth Status 06/17/25 07:00 Stool Stool Culture - Final Complete 06/17/25 07:00 Stool Shiga Toxin I & II - Final Complete 06/16/25 10:30 Blood Blood Culture - Final NO GROWTH AFTER 5 DAYS OF INCUBATION. Complete 06/11/25 14:25 Nose MRSA Screen - Final Complete Examination: GENERAL:Abnormal (Weak appearing), ABDOMEN:Abnormal (Nondistended, midline wound with a wound VAC placed and without surrounding signs of infection, right lower quadrant ileostomy with pink mucosa in bile tinged fluid in bag, bilateral JAMES drains with very minimal serosanguineous output, nontender) Labs and/or images reviewed: Labs reviewed by me (No leukocytosis) Problem List/Assessment/Plan Assessment and Plan Mrs. Penaloza is a 54-year-old female who has been in the hospital since June 08 due to pneumonia and CHF exacerbation that resulted in intubation. I was consulted on 06/17 due to severe colonic distention and pneumatosis seen on CT from that day. She ended receiving a subtotal colectomy colectomy, with primary ileocolic anastomosis and protective loop ileostomy. Interval: Patient is fully awake and extubated but this morning on BiPAP, so she is currently NPO. If she is able to come off the BiPAP okay to resume clear liquid diet, if patient gets reintubated then please place a NG tube and start trickle feeds. Surgeries: 06/17: Exploratory laparotomy, subtotal colectomy (resection of ascending and transverse colon), temporary abdominal closure 06/19: Exploratory laparotomy, takedown of temporary abdominal dressing, wash out, resection of descending colon 06/20: Exploratory laparotomy, takedown of temporary abdominal dressing, washout, ileocolic anastomosis, protective loop ileostomy, drain placement x2, fascial closure 1. Clear liquid diet, we with ensure clears supplementation 2. Continue with TPN, she was malnourished, and she is barely now starting to eat clears 3. Wound VAC for midline wound 4. Drain stripping and emptying once per shift and p.r.n. 5. Recommend continuation of IV antibiotics for a total of 7 days from the last surgery on 06/20 6. No GI cathartic medications 7. Physical therapy consultation Plan discussed with Plan discussed with: Patient Visit Coding Surgery Date of Service if different f: Jun 29, 2025 Billing Provider: SONAM ALCARAZ MD Surgery Visit Codes: [id number] INP/OBS CARE(HIGH) SONAM ALCARAZ MD Jun 29, 2025 12:53
--- NOTE | 2025-06-29 12:57 | DVH ---
CHEST RADIOGRAPH Indication: PICC LINE PLACEMENT. TO BE ORDERED BY PICC LINE NURSE Technique: Single frontal view of the chest was obtained COMPARISON: XY CHEST XRAY 1 VIEW on DOS: 06/29/25, XY CHEST XRAY 1 VIEW on DOS: 06/28/25, XY CHEST PORT ABLE on DOS: 06/27/25, XY CHEST XRAY 1 VIEW on DOS: 06/26/25, XY CHEST XRAY 1 VIEW on DOS: 06/25/25 FINDINGS: Lines and Tubes: Right central venous catheter and right PICC in satisfactory position. Lungs: Unchanged pulmonary vascular congestion. Pleura: No effusion.No pneumothorax. Cardiomediastinal contours: Unchanged cardiomegaly. Bones: Unremarkable. IMPRESSION: Right PICC in satisfactory position overlying the superior vena cava.
[2025-06-29 16:14] LABS: Base Excess 4.4 mmol/L (-2.0-3.0)
--- NOTE | 2025-06-29 19:33 | DVHPNRES ---
Progress Note Date Seen: Jun 29, 2025 Resident Creating Document: ELISEO GOMEZ RESDIENT Medical Necessity Reason Pt with a Central, PICC or Fol: Yes The following are medically ne: Central Line, Engel Catheter Subjective Review of Systems Patient is seen examined at bedside. Patient is status post extubation, in respiratory distress, on BiPAP. Objective vital signs Vital Sign Date Time Temp Pulse Resp B/P (MAP) Pulse Ox O2 Delivery O2 Flow Rate FiO2 06/29/25 18:13 91 145/60 100 Nasal BiPAP Mask 28 06/29/25 18:01 22 06/29/25 16:00 98.4 98.4 06/29/25 12:29 2 Total Intake and Output 06/28/25 06/28/25 06/29/25 15:00 23:00 07:00 Intake Total 581 ml 678.515 ml 641.615 ml Output Total 840 ml 1200 ml Balance 581 ml -161.485 ml -558.385 ml medications Current Medications Medications Dose Ordered Sig/Bárbara Route Start Time Stop Time Status Last Admin Dose Admin Ondansetron HCl 4 mg Q4HP PRN IV 06/09/25 01:00 Cancel Acetaminophen 650 mg Q6HP PRN PO 06/09/25 01:00 06/10/25 20:15 650 MG Nitroglycerin 0.4 mg Q5MINP PRN SL 06/09/25 01:00 Ipratropium [place] 0.5 mg Q6HR NEB 06/14/25 10:15 06/29/25 18:13 0.5 MG Levalbuterol HCl 1.25 mg Q6HR NEB 06/15/25 00:00 06/29/25 18:13 1.25 MG Sodium Bicarbonate 75 ml/ Dextrose 1,075 ml @ 700 mls/hr Q1H33M IV 06/16/25 17:15 06/16/25 18:47 Cancel Pantoprazole Sodium 40 mg BID IV 06/17/25 10:00 06/29/25 10:16 40 MG Vancomycin HCl 0 ml @ 0 mls/hr UD IV 06/17/25 11:45 Bumetanide 1 mg BIDD IV 06/17/25 18:00 Cancel Micafungin Sodium 100 mg/Sodium Chloride 100 ml @ 100 mls/hr DAILY IV 06/19/25 10:00 06/29/25 10:16 100 MLS/HR Amino Acids 0 ml @ 0 mls/hr PER PHARMACY IV 06/18/25 12:15 Diagnostic Test (Pha) 1 strip Q6HR 06/19/25 00:00 06/29/25 17:47 1 STRIP Insulin Human Regular FOLLOW SLIDING SCALE Q6HR SC 06/19/25 00:00 06/29/25 11:41 2 UNITS Dextrose 50 ml UD IV 06/18/25 22:00 Meropenem 50 ml @ 17 mls/hr DAILY@0100 IV 06/21/25 01:00 Cancel Morphine Sulfate 1 mg Q4HP PRN IV 06/26/25 11:45 Hold 06/29/25 05:38 1 MG Acetaminophen/ Hydrocodone Bitart 1 tab Q4HP PRN PO 06/26/25 13:40 06/27/25 14:44 1 TAB Furosemide 20 mg DAILY IV 06/27/25 10:00 06/29/25 10:17 20 MG Meropenem 50 ml @ 17 mls/hr Q8H IV 06/27/25 18:00 06/29/25 17:47 17 MLS/HR Enteral Nutritional Formula 240 ml BIDWM PO 06/27/25 18:00 Fat Emulsion Intravenous 75 ml/ Potassium Chloride 20 meq/ Potassium Acetate 65 meq/Magnesium Sulfate 20 meq/ Multivitamins 10 ml/Chromium/ Copper/Manganese/ Zinc 1 ml/Insulin Human Regular 5 units/Amino Acids/ Dextrose 1,283.55 ml @ 53 mls/hr [id number] IV 06/28/25 22:00 06/29/25 21:59 06/28/25 21:37 53 MLS/HR Morphine Sulfate 1 mg Q4HP PRN IV 06/29/25 05:30 Fat Emulsion Intravenous 100 ml/Potassium Chloride 10 meq/ Potassium Acetate 65 meq/ Multivitamins 10 ml/Chromium/ Copper/Manganese/ Zinc 1 ml/Insulin Human Regular 5 units/Amino Acids/ Dextrose 1,298.55 ml @ 54 mls/hr Q24H3M IV 06/29/25 22:00 06/30/25 21:59 Sodium Chloride 10 ml QSHIFT@10,22 IV 06/29/25 22:00 Examination General Appearance: Alert, Oriented X3, in moderate respiratory distress HEENT: Atraumatic, PERRLA, EOMI, Mucous membrane moist/pink Respiratory: Bilateral crackles Cardiovascular: Regular rate, Normal S1, Normal S2, No murmurs, no chest wall tenderness Abdominal: Normal bowel sounds, Soft, No tenderness, No hepatospenomegaly, No masses Extremities: No clubbing, No cyanosis, No edema, Normal pulses, No tenderness/swelling Skin: Wound VAC on the surgical area, with no sign of infection or drainage laboratory and microbiology Laboratory Tests 06/29/25 03:30 Test 06/29/25 03:30 Range/Units Serum Glucose 136 H 74-106 mg/dL Microbiology Date/Time Source Procedure Growth Status 06/17/25 07:00 Stool Stool Culture - Final Complete 06/17/25 07:00 Stool Shiga Toxin I & II - Final Complete 06/16/25 10:30 Blood Blood Culture - Final NO GROWTH AFTER 5 DAYS OF INCUBATION. Complete 06/11/25 14:25 Nose MRSA Screen - Final Complete Problem List/Assessment/Plan Problem List/Assessment/Plan This is a 54-year-old female with past medical history of HFpEF, paroxysmal AFib, severe TR, severe MR, prediabetic, asthma, CKD 3A, morbid obesity, came to ER due to shortness of breaths, cough and bilateral lower limb swelling for 2 weeks. Admitted on 06/09, put on BiPAP but the patient's condition worsened and got intubated on 06/11. Extubated on 06/26. NEURO: * Extubated on 06/26 CARDIOVASCULAR: Acute on chronic diastolic heart failure exacerbation Paroxysmal Atrial fibrillation with RVR Pulmonary edema due to heart failure Severe aortic insufficiency, mitral valve insufficiency, tricuspid regurg Acquired coagulopathy * Chads Vasc: 2 * Per Cardiology:patient underwent a transesophageal echocardiogram on 03/26/2025 which revealed an EF of 60% with severe aortic insufficiency and with moderate mitral insufficiency. * We will recommend to continue antiarrhythmic therapy with amiodarone, DOAC therapy with Eliquis, and beta-octavio for rate control . * Outpatient follow up with Dr. Melo in [place] for aortic valve replacement with possible TAVR as well as possible mitral clip. * Lasix 20 IV daily PULMONARY: Acute hypoxic respiratory failure, likely due to pneumonia/COPD exacerbation/asthma exacerbation COPD on 4 L at home Hx of Pna and intubation 2022 Sepsis secondary to Acute Gram-positive and Gram-negative pneumonia Likely COPD on 4L home O2 History of asthma * IV vancomycin and IV meropenem 06/17, added micafungin 06/18 * Nebulized treatments GASTROINTESTINAL: Pneumatosis intestinalis and megacolon likely ischemic bowel Perforation and peritonitis Status s/p laparotomy, subtotal colectomy (ascending and transfer) 06/17, resection of descending colon 06/19, ileocolic anastomosis with protective loop ileostomy, drain placement 06/20 Transaminitis, 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 Evidence of portal venous gas * liver ultrasound shows hepatic steatosis * Surgeon - strict NPO, NG tube to LIS, wound VAC for midline wound GENITOURINARY: NYASIA secondary to hemodynamically mediated/VMN requiring hemodialysis 06/20 (1 session) ? Chronic kidney disease Anemia of CKD * Kidney ultrasound shows Normal sonographic appearance of the kidneys. No hydronephrosis. 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 Critical care time spent more than 56 minutes, including patient care, chart review, and updating the family. Excluding any procedures. Case discussed with Dr. Benjamin Plan discussed with: Patient My Orders My Orders Orders - ELISEO GOMEZ RESDIDOOMNIQUE Procedure Category Date Status Time Us Guided Vascular US 06/29/25 Logged Access 11:52 Nursing Protocol Picc DEANDRA 06/29/25 In Process 11:52 Change Dressing Prn DEANDRA 06/29/25 In Process 11:52 PICC BD 06/29/25 Transmitted 11:52 Sodium Chloride Lock PHA 06/29/25 In Process (Saline Lock Ns) 22:00 Do Not Use Picc For DEANDRA 06/29/25 In Process Blood Cult 11:52 May Draw Blood From DEANDRA 06/29/25 In Process Picc 11:52 Chest Portable XY 06/29/25 Resulted 11:52 Ok To Use Picc DEANDRA 06/29/25 In Process 11:52 Change Picc Dressing DEANDRA 06/29/25 In Process Q7 Days 11:52 Chest Xray 1 View XY 06/30/25 Logged 04:00 Abg W/ Co-Ox RT 06/30/25 Logged 04:00 Dietary Evaluation Review Comments: 1) If patient remains NPO > 7 days, consider EN/TPN to meet at least 75% of estimated daily needs 2) If gut is preferred, consider Nepro @ 25 mL/hr goal rate as tolerated. Flush with 200 mL free H2O Q6H. TF regimen will provide 1080 kcals, 49g Pro, and 1236 mL free H2O per 24 hrs. TF regimen will meet ~ 92% estimated energy needs and 52% estimated protein needs. 3) Advance to 60g CCHO renal cardiac diet when medically feasible, pending ST approval 4) Refer to outpatient RD/CDCES for weight management 5) Follow-up with cardiology, pulmonology, or nephrology 6) Continue to monitor I&O, labs, and skin integrity Expected Outcomes/Goals: 1) patient to receive nutritional support within 7 days of NPO status 2) labs to improve 3) diet to advance 4) f/u in 2-3 days Sepsis reassessment post fluid Capillary Refill: < 3 seconds Date of Service: Jun 29, 2025 Billing Provider: ELZA BENJAMIN MD Common Visit Codes: [id number] CARE 30-74 MIN ELISEO GOMEZ Jun 29, 2025 19:33 ELZA BENJAMIN MD Jun 30, 2025 16:06
[2025-06-29] MEDS: SODIUM CHLOR 0.9% PF (SALINE LOCK) 10ML VIAL/SYR IV SCH (21:16)
[2025-06-29] MEDS: TPN PER PHARMACY IV NR (21:18)
[2025-06-29] MEDS ORDERED: AMIODARONE HCL 200 MG TAB PO SCH (22:00)
--- NOTE | 2025-06-29 23:55 | DVHPN2 ---
Progress Note - Dictate Date Seen: Jun 29, 2025 Medical Necessity Reason Pt with a Central, PICC or Fol: Yes The following are medically ne: Central Line, Engel Catheter Subjective Patient was seen and evaluated in follow up in the ICU. Patient is on Bi-PAP, 28% FiO2. Patient remains with SOB. WBC 11.6, HGB 7.5, HCT 23.9, NA 148, BUN 95. Chest x-ray shows NAD. vital signs Vital Sign Date Time Temp Pulse Resp B/P (MAP) Pulse Ox O2 Delivery O2 Flow Rate FiO2 06/29/25 22:01 103 24 160/58 (92) 100 06/29/25 22:00 Bi-Pap+ 28 28 06/29/25 16:00 98.4 98.4 06/29/25 12:29 2 Total Intake and Output 06/28/25 06/28/25 06/29/25 15:00 23:00 07:00 Intake Total 581 ml 678.515 ml 641.615 ml Output Total 840 ml 1200 ml Balance 581 ml -161.485 ml -558.385 ml medications Current Medications Medications Dose Ordered Sig/Bárbara Route Start Time Stop Time Status Last Admin Dose Admin Ondansetron HCl 4 mg Q4HP PRN IV 06/09/25 01:00 Cancel Acetaminophen 650 mg Q6HP PRN PO 06/09/25 01:00 06/10/25 20:15 650 MG Nitroglycerin 0.4 mg Q5MINP PRN SL 06/09/25 01:00 Ipratropium [place] 0.5 mg Q6HR NEB 06/14/25 10:15 06/29/25 18:13 0.5 MG Levalbuterol HCl 1.25 mg Q6HR NEB 06/15/25 00:00 06/29/25 18:13 1.25 MG Sodium Bicarbonate 75 ml/ Dextrose 1,075 ml @ 700 mls/hr Q1H33M IV 06/16/25 17:15 06/16/25 18:47 Cancel Pantoprazole Sodium 40 mg BID IV 06/17/25 10:00 06/29/25 21:16 40 MG Vancomycin HCl 0 ml @ 0 mls/hr UD IV 06/17/25 11:45 Bumetanide 1 mg BIDD IV 06/17/25 18:00 Cancel Micafungin Sodium 100 mg/Sodium Chloride 100 ml @ 100 mls/hr DAILY IV 06/19/25 10:00 06/29/25 10:16 100 MLS/HR Amino Acids 0 ml @ 0 mls/hr PER PHARMACY IV 06/18/25 12:15 Diagnostic Test (Pha) 1 strip Q6HR 06/19/25 00:00 06/29/25 17:47 1 STRIP Insulin Human Regular FOLLOW SLIDING SCALE Q6HR SC 06/19/25 00:00 06/29/25 11:41 2 UNITS Dextrose 50 ml UD IV 06/18/25 22:00 Meropenem 50 ml @ 17 mls/hr DAILY@0100 IV 06/21/25 01:00 Cancel Morphine Sulfate 1 mg Q4HP PRN IV 06/26/25 11:45 Hold 06/29/25 05:38 1 MG Acetaminophen/ Hydrocodone Bitart 1 tab Q4HP PRN PO 06/26/25 13:40 06/27/25 14:44 1 TAB Furosemide 20 mg DAILY IV 06/27/25 10:00 06/29/25 10:17 20 MG Meropenem 50 ml @ 17 mls/hr Q8H IV 06/27/25 18:00 06/29/25 17:47 17 MLS/HR Enteral Nutritional Formula 240 ml BIDWM PO 06/27/25 18:00 Morphine Sulfate 1 mg Q4HP PRN IV 06/29/25 05:30 Fat Emulsion Intravenous 100 ml/Potassium Chloride 10 meq/ Potassium Acetate 65 meq/ Multivitamins 10 ml/Chromium/ Copper/Manganese/ Zinc 1 ml/Insulin Human Regular 5 units/Amino Acids/ Dextrose 1,298.55 ml @ 54 mls/hr Q24H3M IV 06/29/25 22:00 06/30/25 21:59 06/29/25 21:18 54 MLS/HR Sodium Chloride 10 ml QSHIFT@10,22 IV 06/29/25 22:00 06/29/25 21:16 10 ML objective GENERAL: Alert and oriented x 3. No acute distress. EYES: PERRL, EOMI. Anicteric. HENT: Moist mucous membranes. LUNGS: Decreased breath sounds. CARDIOVASCULAR: Regular rate and rhythm. ABDOMEN: Soft, nontender and nondistended. EXTREMITIES: No edema. NEUROLOGIC: No focal neurological deficits. SKIN: Warm, dry. laboratory and microbiology Laboratory Tests 06/29/25 03:30 Test 06/29/25 03:30 Range/Units Serum Glucose 136 H 74-106 mg/dL Problem List Chronic HFpEF, NYHA class IV. Paroxysmal atrial fibrillation, stage III, now NSR (on amiodarone/Elqiuis therapy). Severe aortic valve and mitral valve insufficiency. Acute hypoxic respiratory failure. Asthma. Chronic kidney disease. Thyroid disease. Prediabetes, newly diagnosed. Morbid obesity. History of tobacco use. Assessment/Plan Continued all current supportive medical care. Nitro SL. GI prophylactics. Diuretics with Lasix. IV antibiotics as ordered. Nebulized breathing treatments. IV Hydralazine for SBP >150. Additional plan as per the hospital course. Critical care time of 45 minutes provided to include time spent evaluation of patient at bedside, when appropriate patient/family education for diagnosis, treatment plan, review of pertinent medical information and discussion of care with specialty providers and PCP. Dietary Evaluation Review Comments: 1) If patient remains NPO > 7 days, consider EN/TPN to meet at least 75% of estimated daily needs 2) If gut is preferred, consider Nepro @ 25 mL/hr goal rate as tolerated. Flush with 200 mL free H2O Q6H. TF regimen will provide 1080 kcals, 49g Pro, and 1236 mL free H2O per 24 hrs. TF regimen will meet ~ 92% estimated energy needs and 52% estimated protein needs. 3) Advance to 60g CCHO renal cardiac diet when medically feasible, pending ST approval 4) Refer to outpatient RD/[facility] for weight management 5) Follow-up with cardiology, pulmonology, or nephrology 6) Continue to monitor I&O, labs, and skin integrity Expected Outcomes/Goals: 1) patient to receive nutritional support within 7 days of NPO status 2) labs to improve 3) diet to advance 4) f/u in 2-3 days Plan discussed with: Patient Capillary Refill: < 3 seconds URBANO TRUONG MD Jun 29, 2025 23:55
[2025-06-30] VITALS (114 sets, daily range): BP systolic 124–179; BP diastolic 38–78; PULSE 86–115; RESP 14–31; TEMP 98.8–101; O2SAT 81–100
[2025-06-30] MEDS: MORPHINE SULFATE INJ 2 MG/ml SYRG IV PRN (00:30)
[2025-06-30 04:00] LABS: Hematocrit 24.2 % (36.0-46.0); Hemoglobin 7.7 g/dL (12.2-16.2); Mean Corpuscular Hemoglobin 27.3 pg (28.0-32.0); Mean Corpuscular Volume 86.4 fL (80.0-100.0); Nucleated Red Blood Cells % 0.0 %
[2025-06-30 04:19] LABS: Anion Gap 13 (5-15); BUN/Creatinine Ratio 63.4 (10.0-20.0); Calcium 9.2 mg/dL (8.7-10.4); Carbon Dioxide 29 mmol/L (20-31); Magnesium 2.5 mg/dL (1.6-2.6); Potassium 4.0 mmol/L (3.5-5.1); Total Protein 5.8 g/dL (5.7-8.2)
[2025-06-30 04:20] LABS: Alanine Aminotransferase 74 U/L (7-40); Albumin 2.7 g/dL (3.2-4.8); Alkaline Phosphatase 135 U/L (46-116); Blood Urea Nitrogen 92 mg/dL (9-23); Chloride 110 mmol/L (98-107); Glucose 151 mg/dL (74-106); Sodium 152 mmol/L (136-145)
[2025-06-30 04:31] LABS: Bilirubin, Total 0.6 mg/dL (0.2-1.0)
--- NOTE | 2025-06-30 05:20 | DVH ---
CHEST RADIOGRAPH Indication: Pneumonia Technique: Single frontal view of the chest was obtained COMPARISON: XY CHEST PORTABLE on DOS: 06/29/25, XY CHEST XRAY 1 VIEW on DOS: 06/29/25, XY CHEST XRAY 1 VIEW on DOS: 06/28/25, XY CHEST PORTABLE on DOS: 06/27/25, XY CHEST XRAY 1 VIEW on DOS: 06/26/25 FINDINGS: Lines and Tubes: Interval removal of right internal jugular central venous catheter. Right periphera lly inserted central catheter unchanged. Lungs: Clear. Pleura: No effusion. No pneumothorax. Cardiomediastinal contours: Cardiomegaly. Bones: Unremarkable IMPRESSION: 1. Interval removal of right internal jugular central venous catheter. Right PICC unchanged. 2. Otherwise, no significant change compared to prior exam.
[2025-06-30] MEDS: D5W 5% 1,000 ML IV SCH (09:36)
--- NOTE | 2025-06-30 10:02 | DVHPN2 ---
Progress Note - Surgical Date Seen: Jun 30, 2025 Post op day Post op day: 13 Subjective Patient reports: No new complaints (Patient continues to be extubated, had a swallow eval and she is okay for pureed diet.) Review of Systems: Deferred Objective Vital signs Vital Sign Date Time Temp Pulse Resp B/P (MAP) Pulse Ox O2 Delivery O2 Flow Rate FiO2 06/30/25 09:41 101.0 06/30/25 09:08 149/52 06/30/25 07:08 106 17 98 06/30/25 07:06 Nasal Cannula 3.0 06/30/25 07:05 32 Total Intake and Output 06/29/25 06/29/25 06/30/25 15:00 23:00 07:00 Intake Total 678.005 ml 526 ml 428 ml Output Total 3190 ml 1160 ml Balance 678.005 ml -2664 ml -732 ml Medications Current Medications Medications Dose Ordered Sig/Bárbara Route Start Time Stop Time Status Last Admin Dose Admin Ondansetron HCl 4 mg Q4HP PRN IV 06/09/25 01:00 Cancel Acetaminophen 650 mg Q6HP PRN PO 06/09/25 01:00 06/30/25 09:41 650 MG Nitroglycerin 0.4 mg Q5MINP PRN SL 06/09/25 01:00 Ipratropium [place] 0.5 mg Q6HR NEB 06/14/25 10:15 06/30/25 06:58 0.5 MG Levalbuterol HCl 1.25 mg Q6HR NEB 06/15/25 00:00 06/30/25 06:58 1.25 MG Sodium Bicarbonate 75 ml/ Dextrose 1,075 ml @ 700 mls/hr Q1H33M IV 06/16/25 17:15 06/16/25 18:47 Cancel Pantoprazole Sodium 40 mg BID IV 06/17/25 10:00 06/30/25 09:06 40 MG Vancomycin HCl 0 ml @ 0 mls/hr UD IV 06/17/25 11:45 Bumetanide 1 mg BIDD IV 06/17/25 18:00 Cancel Micafungin Sodium 100 mg/Sodium Chloride 100 ml @ 100 mls/hr DAILY IV 06/19/25 10:00 06/30/25 09:50 100 MLS/HR Amino Acids 0 ml @ 0 mls/hr PER PHARMACY IV 06/18/25 12:15 Diagnostic Test (Pha) 1 strip Q6HR 06/19/25 00:00 06/30/25 05:20 1 STRIP Insulin Human Regular FOLLOW SLIDING SCALE Q6HR SC 06/19/25 00:00 06/30/25 05:21 2 UNITS Dextrose 50 ml UD IV 06/18/25 22:00 Meropenem 50 ml @ 17 mls/hr DAILY@0100 IV 06/21/25 01:00 Cancel Morphine Sulfate 1 mg Q4HP PRN IV 06/26/25 11:45 Hold 06/29/25 05:38 1 MG Acetaminophen/ Hydrocodone Bitart 1 tab Q4HP PRN PO 06/26/25 13:40 06/27/25 14:44 1 TAB Furosemide 20 mg DAILY IV 06/27/25 10:00 06/30/25 09:08 20 MG Meropenem 50 ml @ 17 mls/hr Q8H IV 06/27/25 18:00 06/30/25 09:06 17 MLS/HR Enteral Nutritional Formula 240 ml BIDWM PO 06/27/25 18:00 Morphine Sulfate 1 mg Q4HP PRN IV 06/29/25 05:30 06/30/25 00:30 1 MG Fat Emulsion Intravenous 100 ml/Potassium Chloride 10 meq/ Potassium Acetate 65 meq/ Multivitamins 10 ml/Chromium/ Copper/Manganese/ Zinc 1 ml/Insulin Human Regular 5 units/Amino Acids/ Dextrose 1,298.55 ml @ 54 mls/hr Q24H3M IV 06/29/25 22:00 06/30/25 21:59 06/29/25 21:18 54 MLS/HR Sodium Chloride 10 ml QSHIFT@10,22 IV 06/29/25 22:00 06/29/25 21:16 10 ML Dextrose 1,000 ml @ 50 mls/hr Q20H IV 06/30/25 09:00 06/30/25 09:36 50 MLS/HR Fat Emulsion Intravenous 100 ml/Potassium Acetate 65 meq/ Multivitamins 10 ml/Chromium/ Copper/Manganese/ Zinc 1 ml/Insulin Human Regular 5 units/Amino Acids/ Dextrose 1,293.55 ml @ 54 mls/hr [id number] IV 06/30/25 22:00 07/01/25 21:59 Laboratory Laboratory Tests 06/30/25 03:30 Test 06/30/25 03:30 Range/Units Serum Glucose 151 H 74-106 mg/dL Microbiology Date/Time Source Procedure Growth Status 06/17/25 07:00 Stool Stool Culture - Final Complete 06/17/25 07:00 Stool Shiga Toxin I & II - Final Complete 06/16/25 10:30 Blood Blood Culture - Final NO GROWTH AFTER 5 DAYS OF INCUBATION. Complete 06/11/25 14:25 Nose MRSA Screen - Final Complete Examination: ABDOMEN:Abnormal (Nondistended, soft, depressible, midline incision with wound VAC placed no surrounding signs of infection, right lower quadrant ileostomy with pink mucosa and bowel in bag, bilateral drains with serosanguineous output minimal.) Labs and/or images reviewed: Labs reviewed by me (No leukocytosis, WBC at 10) Problem List/Assessment/Plan Assessment and Plan Mrs. Penaloza is a 54-year-old female who has been in the hospital since June 08 due to pneumonia and CHF exacerbation that resulted in intubation. I was consulted on 06/17 due to severe colonic distention and pneumatosis seen on CT from that day. She ended receiving a subtotal colectomy colectomy, with primary ileocolic anastomosis and protective loop ileostomy. Interval: Patient had swallow eval today she is cleared for pureed diet. From surgical standpoint she could have pureed diet at this point and continue TPN until she is optimized from an eating standpoint. Surgeries: 06/17: Exploratory laparotomy, subtotal colectomy (resection of ascending and transverse colon), temporary abdominal closure 06/19: Exploratory laparotomy, takedown of temporary abdominal dressing, wash out, resection of descending colon 06/20: Exploratory laparotomy, takedown of temporary abdominal dressing, washout, ileocolic anastomosis, protective loop ileostomy, drain placement x2, fascial closure 1. Okay for pureed diet, please supplement with regular ensures 2. Continue with TPN, she was malnourished, and she has not eaten anything significant since extubation 3. Wound VAC for midline wound 4. Drain stripping and emptying once per shift and p.r.n. 5. Recommend continuation of IV antibiotics for a total of 7 days from the last surgery on 06/20 6. No GI cathartic medications 7. Physical therapy consultation Plan discussed with Plan discussed with: Patient Visit Coding Surgery Date of Service if different f: Jun 30, 2025 Billing Provider: SONAM ALCARAZ MD Surgery Visit Codes: [id number] INP/OBS CARE(HIGH) SONAM ALCAARZ MD Jun 30, 2025 10:02
[2025-06-30] MEDS: AMIODARONE HCL 200 MG TAB PO ONE (11:53)
[2025-06-30] MEDS: VANCOMYCIN 500mg/100mL 100 ML IV ONE (13:43)
--- NOTE | 2025-06-30 15:04 | DVHPN2 ---
Progress Note Date Seen: Jun 30, 2025 Medical Necessity Reason Pt with a Central, PICC or Fol: Yes The following are medically ne: Central Line, Engel Catheter Objective vital signs Vital Sign Date Time Temp Pulse Resp B/P (MAP) Pulse Ox O2 Delivery O2 Flow Rate FiO2 06/30/25 14:30 103 17 144/58 (86) 100 06/30/25 10:50 100.8 06/30/25 10:00 Nasal Cannula* 1 24 Total Intake and Output 06/29/25 06/29/25 06/30/25 15:00 23:00 07:00 Intake Total 678.005 ml 526 ml 482 ml Output Total 3190 ml 1160 ml Balance 678.005 ml -2664 ml -678 ml medications Current Medications Medications Dose Ordered Sig/Bárbara Route Start Time Stop Time Status Last Admin Dose Admin Ondansetron HCl 4 mg Q4HP PRN IV 06/09/25 01:00 Cancel Acetaminophen 650 mg Q6HP PRN PO 06/09/25 01:00 06/30/25 09:41 650 MG Nitroglycerin 0.4 mg Q5MINP PRN SL 06/09/25 01:00 Ipratropium [place] 0.5 mg Q6HR NEB 06/14/25 10:15 06/30/25 12:12 0.5 MG Levalbuterol HCl 1.25 mg Q6HR NEB 06/15/25 00:00 06/30/25 12:12 1.25 MG Sodium Bicarbonate 75 ml/ Dextrose 1,075 ml @ 700 mls/hr Q1H33M IV 06/16/25 17:15 06/16/25 18:47 Cancel Pantoprazole Sodium 40 mg BID IV 06/17/25 10:00 06/30/25 09:06 40 MG Vancomycin HCl 0 ml @ 0 mls/hr UD IV 06/17/25 11:45 Bumetanide 1 mg BIDD IV 06/17/25 18:00 Cancel Micafungin Sodium 100 mg/Sodium Chloride 100 ml @ 100 mls/hr DAILY IV 06/19/25 10:00 06/30/25 09:50 100 MLS/HR Amino Acids 0 ml @ 0 mls/hr PER PHARMACY IV 06/18/25 12:15 Diagnostic Test (Pha) 1 strip Q6HR 06/19/25 00:00 06/30/25 12:10 1 STRIP Insulin Human Regular FOLLOW SLIDING SCALE Q6HR SC 06/19/25 00:00 06/30/25 12:15 2 UNITS Dextrose 50 ml UD IV 06/18/25 22:00 Meropenem 50 ml @ 17 mls/hr DAILY@0100 IV 06/21/25 01:00 Cancel Morphine Sulfate 1 mg Q4HP PRN IV 06/26/25 11:45 Hold 06/29/25 05:38 1 MG Acetaminophen/ Hydrocodone Bitart 1 tab Q4HP PRN PO 06/26/25 13:40 06/27/25 14:44 1 TAB Furosemide 20 mg DAILY IV 06/27/25 10:00 06/30/25 09:08 20 MG Meropenem 50 ml @ 17 mls/hr Q8H IV 06/27/25 18:00 06/30/25 09:06 17 MLS/HR Enteral Nutritional Formula 240 ml BIDWM PO 06/27/25 18:00 Morphine Sulfate 1 mg Q4HP PRN IV 06/29/25 05:30 06/30/25 00:30 1 MG Fat Emulsion Intravenous 100 ml/Potassium Chloride 10 meq/ Potassium Acetate 65 meq/ Multivitamins 10 ml/Chromium/ Copper/Manganese/ Zinc 1 ml/Insulin Human Regular 5 units/Amino Acids/ Dextrose 1,298.55 ml @ 54 mls/hr Q24H3M IV 06/29/25 22:00 06/30/25 21:59 06/29/25 21:18 54 MLS/HR Sodium Chloride 10 ml QSHIFT@10,22 IV 06/29/25 22:00 06/30/25 10:51 10 ML Dextrose 1,000 ml @ 50 mls/hr Q20H IV 06/30/25 09:00 06/30/25 09:36 50 MLS/HR Fat Emulsion Intravenous 100 ml/Potassium Acetate 65 meq/ Multivitamins 10 ml/Chromium/ Copper/Manganese/ Zinc 1 ml/Insulin Human Regular 5 units/Amino Acids/ Dextrose 1,293.55 ml @ 54 mls/hr [id number] IV 06/30/25 22:00 07/01/25 21:59 Amiodarone HCl 200 mg Q12HR PO 06/30/25 22:00 UNV laboratory and microbiology Laboratory Tests 06/30/25 03:30 Test 06/30/25 03:30 Range/Units Serum Glucose 151 H 74-106 mg/dL Microbiology Date/Time Source Procedure Growth Status 06/17/25 07:00 Stool Stool Culture - Final Complete 06/17/25 07:00 Stool Shiga Toxin I & II - Final Complete 06/16/25 10:30 Blood Blood Culture - Final NO GROWTH AFTER 5 DAYS OF INCUBATION. Complete 06/11/25 14:25 Nose MRSA Screen - Final Complete Problem List/Assessment/Plan Problem List/Assessment/Plan 54-year-old female past medical history of chronic kidney disease and recent admission for sepsis due to bacteremia presents to the hospital complaining of shortness of breath and developed respiratory failure in the setting of pneumonia. Acute kidney injury required acute HD temporarily now off Dr. 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 TPN and high protein also contributing to high BUN. expect BUN to down trending, can start dose reduction monitor uop replace electrolytes as needed Plan discussed with: Patient My Orders My Orders Orders - TIM MORALES MD Procedure Category Date Status Time D5w 5% (Dextrose 5%) PHA 06/30/25 In Process 09:00 Dietary Evaluation Review Comments: 1) If patient remains NPO > 7 days, consider EN/TPN to meet at least 75% of estimated daily needs 2) If gut is preferred, consider Nepro @ 25 mL/hr goal rate as tolerated. Flush with 200 mL free H2O Q6H. TF regimen will provide 1080 kcals, 49g Pro, and 1236 mL free H2O per 24 hrs. TF regimen will meet ~ 92% estimated energy needs and 52% estimated protein needs. 3) Advance to 60g CCHO renal cardiac diet when medically feasible, pending ST approval 4) Refer to outpatient RD/CDCES for weight management 5) Follow-up with cardiology, pulmonology, or nephrology 6) Continue to monitor I&O, labs, and skin integrity Expected Outcomes/Goals: 1) patient to receive nutritional support within 7 days of NPO status 2) labs to improve 3) diet to advance 4) f/u in 2-3 days Critical Care Time (mins): 33 Sepsis reassessment post fluid Capillary Refill: < 3 seconds TIM MORALES MD Jun 30, 2025 15:04
--- NOTE | 2025-06-30 17:58 | DVH ---
EXAM: XY CHEST PORTABLE HISTORY: NGT PLACEMENT VERIFICATION TECHNIQUE: 1 view of the chest COMPARISON: XY CHEST XRAY 1 VIEW on DOS: 06/30/25 FINDINGS/IMPRESSION: LUNGS: No pleural effusion, consolidation, or pneumothorax MEDIASTINUM: Unremarkable BONES: No acute osseous abnormality OTHER: Enteric tube extending into the body of the stomach. Right-sided PICC line of the cavoatrial junction
--- NOTE | 2025-06-30 18:58 | DVHPNRES ---
Progress Note Date Seen: Jun 30, 2025 Resident Creating Document: ELISEO GOMEZ RESDIENT Medical Necessity Reason Pt with a Central, PICC or Fol: Yes The following are medically ne: Central Line, Engel Catheter Subjective Review of Systems Patient is seen examined at bedside. Patient is feeling better, and nasal cannula. Objective vital signs Vital Sign Date Time Temp Pulse Resp B/P (MAP) Pulse Ox O2 Delivery O2 Flow Rate FiO2 06/30/25 18:32 86 21 99 06/30/25 18:31 160/61 (94) 06/30/25 18:18 Nasal Cannula* 2 28 06/30/25 16:46 99.9 99.9 Total Intake and Output 06/29/25 06/29/25 06/30/25 15:00 23:00 07:00 Intake Total 678.005 ml 526 ml 482 ml Output Total 3190 ml 1160 ml Balance 678.005 ml -2664 ml -678 ml medications Current Medications Medications Dose Ordered Sig/Bárbara Route Start Time Stop Time Status Last Admin Dose Admin Ondansetron HCl 4 mg Q4HP PRN IV 06/09/25 01:00 Cancel Acetaminophen 650 mg Q6HP PRN PO 06/09/25 01:00 06/30/25 09:41 650 MG Nitroglycerin 0.4 mg Q5MINP PRN SL 06/09/25 01:00 Ipratropium [place] 0.5 mg Q6HR NEB 06/14/25 10:15 06/30/25 18:18 0.5 MG Levalbuterol HCl 1.25 mg Q6HR NEB 06/15/25 00:00 06/30/25 18:18 1.25 MG Sodium Bicarbonate 75 ml/ Dextrose 1,075 ml @ 700 mls/hr Q1H33M IV 06/16/25 17:15 06/16/25 18:47 Cancel Pantoprazole Sodium 40 mg BID IV 06/17/25 10:00 06/30/25 09:06 40 MG Vancomycin HCl 0 ml @ 0 mls/hr UD IV 06/17/25 11:45 Bumetanide 1 mg BIDD IV 06/17/25 18:00 Cancel Micafungin Sodium 100 mg/Sodium Chloride 100 ml @ 100 mls/hr DAILY IV 06/19/25 10:00 06/30/25 09:50 100 MLS/HR Diagnostic Test (Pha) 1 strip Q6HR 06/19/25 00:00 06/30/25 18:18 1 STRIP Insulin Human Regular FOLLOW SLIDING SCALE Q6HR SC 06/19/25 00:00 06/30/25 18:20 2 UNITS Dextrose 50 ml UD IV 06/18/25 22:00 Meropenem 50 ml @ 17 mls/hr DAILY@0100 IV 06/21/25 01:00 Cancel Acetaminophen/ Hydrocodone Bitart 1 tab Q4HP PRN PO 06/26/25 13:40 06/27/25 14:44 1 TAB Furosemide 20 mg DAILY IV 06/27/25 10:00 06/30/25 09:08 20 MG Meropenem 50 ml @ 17 mls/hr Q8H IV 06/27/25 18:00 06/30/25 18:21 17 MLS/HR Enteral Nutritional Formula 240 ml BIDWM PO 06/27/25 18:00 Morphine Sulfate 1 mg Q4HP PRN IV 06/29/25 05:30 06/30/25 00:30 1 MG Sodium Chloride 10 ml QSHIFT@10,22 IV 06/29/25 22:00 06/30/25 10:51 10 ML Dextrose 1,000 ml @ 50 mls/hr Q20H IV 06/30/25 09:00 06/30/25 09:36 50 MLS/HR Amiodarone HCl 200 mg Q12HR PO 06/30/25 22:00 Enteral Nutritional Formula 1,000 ml 30ML/HR GT 06/30/25 17:15 Examination General Appearance: Alert, Oriented X3, in moderate respiratory distress HEENT: Atraumatic, PERRLA, EOMI, Mucous membrane moist/pink Respiratory: Bilateral crackles Cardiovascular: Regular rate, Normal S1, Normal S2, No murmurs, no chest wall tenderness Abdominal: Normal bowel sounds, Soft, No tenderness, No hepatospenomegaly, No masses Extremities: No clubbing, No cyanosis, No edema, Normal pulses, No tenderness/swelling Skin: Wound VAC on the surgical area, with no sign of infection or drainage laboratory and microbiology Laboratory Tests 06/30/25 03:30 Test 06/30/25 03:30 Range/Units Serum Glucose 151 H 74-106 mg/dL Microbiology Date/Time Source Procedure Growth Status 06/17/25 07:00 Stool Stool Culture - Final Complete 06/17/25 07:00 Stool Shiga Toxin I & II - Final Complete 06/16/25 10:30 Blood Blood Culture - Final NO GROWTH AFTER 5 DAYS OF INCUBATION. Complete 06/11/25 14:25 Nose MRSA Screen - Final Complete Labs and/or images reviewed: Labs reviewed by me, Image(s) reviewed by me Problem List/Assessment/Plan Problem List/Assessment/Plan This is a 54-year-old female with past medical history of HFpEF, paroxysmal AFib, severe TR, severe MR, prediabetic, asthma, CKD 3A, morbid obesity, came to ER due to shortness of breaths, cough and bilateral lower limb swelling for 2 weeks. Admitted on 06/09, put on BiPAP but the patient's condition worsened and got intubated on 06/11. Extubated on 06/26. NEURO: * Extubated on 06/26 CARDIOVASCULAR: Acute on chronic diastolic heart failure exacerbation Paroxysmal Atrial fibrillation with RVR Pulmonary edema due to heart failure Severe aortic insufficiency, mitral valve insufficiency, tricuspid regurg Acquired coagulopathy * Chads Vasc: 2 * Per Cardiology:patient underwent a transesophageal echocardiogram on 03/26/2025 which revealed an EF of 60% with severe aortic insufficiency and with moderate mitral insufficiency. * We will recommend to continue antiarrhythmic therapy with amiodarone, DOAC therapy with Eliquis, and beta-octavio for rate control . * Outpatient follow up with Dr. Melo in [place] for aortic valve replacement with possible TAVR as well as possible mitral clip. * Plan: Lasix 20 IV daily PULMONARY: Acute hypoxic respiratory failure, likely due to pneumonia/COPD exacerbation/asthma exacerbation COPD on 4 L at home Hx of Pna and intubation 2022 Sepsis secondary to Acute Gram-positive and Gram-negative pneumonia Likely COPD on 4L home O2 History of asthma * Plan: Continue vancomycin (06/17), meropenem (06/27), micafungin (06/19), and present treatment GASTROINTESTINAL: Pneumatosis intestinalis and megacolon likely ischemic bowel Perforation and peritonitis Status s/p laparotomy, subtotal colectomy (ascending and transfer) 06/17, resection of descending colon 06/19, ileocolic anastomosis with protective loop ileostomy, drain placement 06/20 Transaminitis, 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 Evidence of portal venous gas * liver ultrasound shows hepatic steatosis * Surgeon - strict NPO, NG tube to LIS, wound VAC for midline wound GENITOURINARY: NYASIA secondary to hemodynamically mediated/VMN requiring hemodialysis 06/20 (1 session) ? Chronic kidney disease Anemia of CKD * Kidney ultrasound shows Normal sonographic appearance of the kidneys. No hydronephrosis. 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 Critical care time spent more than 56 minutes, including patient care, chart review, and updating the family. Excluding any procedures. Case discussed with Dr. Benjamin Plan discussed with: Patient, Other (RN) My Orders My Orders Orders - ELISEO GOMEZ RESDIDOMONIQUE Procedure Category Date Status Time Amiodarone Tablet PHA 06/30/25 In Process (Cordarone Tablet) 22:00 Chest Portable XY 06/30/25 Resulted 17:04 Complete Blood Count LAB 07/01/25 Verified 04:00 Chest Xray 1 View XY 07/01/25 Logged 04:00 Nutritional PHA 06/30/25 In Process Supplements (Jevity 17:15 Dietary Evaluation Review Comments: 1) If patient remains NPO > 7 days, consider EN/TPN to meet at least 75% of estimated daily needs 2) If gut is preferred, consider Nepro @ 25 mL/hr goal rate as tolerated. Flush with 200 mL free H2O Q6H. TF regimen will provide 1080 kcals, 49g Pro, and 1236 mL free H2O per 24 hrs. TF regimen will meet ~ 92% estimated energy needs and 52% estimated protein needs. 3) Advance to 60g CCHO renal cardiac diet when medically feasible, pending ST approval 4) Refer to outpatient RD/CDCES for weight management 5) Follow-up with cardiology, pulmonology, or nephrology 6) Continue to monitor I&O, labs, and skin integrity Expected Outcomes/Goals: 1) patient to receive nutritional support within 7 days of NPO status 2) labs to improve 3) diet to advance 4) f/u in 2-3 days Sepsis reassessment post fluid Capillary Refill: < 3 seconds Date of Service: Jun 30, 2025 Billing Provider: ELZA BENJAMIN MD Common Visit Codes: [id number] CARE 30-74 MIN ELISEO GOMEZ Jun 30, 2025 18:58 ELZA BENJAMIN MD Jul 01, 2025 13:49
--- NOTE | 2025-06-30 21:28 | DVHPN2 ---
Progress Note - Dictate Date Seen: Jun 30, 2025 Medical Necessity Reason Pt with a Central, PICC or Fol: Yes The following are medically ne: Central Line, Engel Catheter Subjective Patient was seen and evaluated in follow up in the ICU. Patient is now on 1 LPM NC. Patient passed swallow eval and was started on a pureed diet. 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 vital signs Vital Sign Date Time Temp Pulse Resp B/P (MAP) Pulse Ox O2 Delivery O2 Flow Rate FiO2 06/30/25 12:13 98 18 96 06/30/25 11:01 152/56 (88) 06/30/25 10:50 100.8 06/30/25 10:00 Nasal Cannula* 1 24 Total Intake and Output 06/29/25 06/29/25 06/30/25 15:00 23:00 07:00 Intake Total 678.005 ml 526 ml 482 ml Output Total 3190 ml 1160 ml Balance 678.005 ml -2664 ml -678 ml medications Current Medications Medications Dose Ordered Sig/Bárbara Route Start Time Stop Time Status Last Admin Dose Admin Ondansetron HCl 4 mg Q4HP PRN IV 06/09/25 01:00 Cancel Acetaminophen 650 mg Q6HP PRN PO 06/09/25 01:00 06/30/25 09:41 650 MG Nitroglycerin 0.4 mg Q5MINP PRN SL 06/09/25 01:00 Ipratropium [place] 0.5 mg Q6HR NEB 06/14/25 10:15 06/30/25 12:12 0.5 MG Levalbuterol HCl 1.25 mg Q6HR NEB 06/15/25 00:00 06/30/25 12:12 1.25 MG Sodium Bicarbonate 75 ml/ Dextrose 1,075 ml @ 700 mls/hr Q1H33M IV 06/16/25 17:15 06/16/25 18:47 Cancel Pantoprazole Sodium 40 mg BID IV 06/17/25 10:00 06/30/25 09:06 40 MG Vancomycin HCl 0 ml @ 0 mls/hr UD IV 06/17/25 11:45 Bumetanide 1 mg BIDD IV 06/17/25 18:00 Cancel Micafungin Sodium 100 mg/Sodium Chloride 100 ml @ 100 mls/hr DAILY IV 06/19/25 10:00 06/30/25 09:50 100 MLS/HR Amino Acids 0 ml @ 0 mls/hr PER PHARMACY IV 06/18/25 12:15 Diagnostic Test (Pha) 1 strip Q6HR 06/19/25 00:00 06/30/25 12:10 1 STRIP Insulin Human Regular FOLLOW SLIDING SCALE Q6HR SC 06/19/25 00:00 06/30/25 12:15 2 UNITS Dextrose 50 ml UD IV 06/18/25 22:00 Meropenem 50 ml @ 17 mls/hr DAILY@0100 IV 06/21/25 01:00 Cancel Morphine Sulfate 1 mg Q4HP PRN IV 06/26/25 11:45 Hold 06/29/25 05:38 1 MG Acetaminophen/ Hydrocodone Bitart 1 tab Q4HP PRN PO 06/26/25 13:40 06/27/25 14:44 1 TAB Furosemide 20 mg DAILY IV 06/27/25 10:00 06/30/25 09:08 20 MG Meropenem 50 ml @ 17 mls/hr Q8H IV 06/27/25 18:00 06/30/25 09:06 17 MLS/HR Enteral Nutritional Formula 240 ml BIDWM PO 06/27/25 18:00 Morphine Sulfate 1 mg Q4HP PRN IV 06/29/25 05:30 06/30/25 00:30 1 MG Fat Emulsion Intravenous 100 ml/Potassium Chloride 10 meq/ Potassium Acetate 65 meq/ Multivitamins 10 ml/Chromium/ Copper/Manganese/ Zinc 1 ml/Insulin Human Regular 5 units/Amino Acids/ Dextrose 1,298.55 ml @ 54 mls/hr Q24H3M IV 06/29/25 22:00 06/30/25 21:59 06/29/25 21:18 54 MLS/HR Sodium Chloride 10 ml QSHIFT@10,22 IV 06/29/25 22:00 06/30/25 10:51 10 ML Dextrose 1,000 ml @ 50 mls/hr Q20H IV 06/30/25 09:00 06/30/25 09:36 50 MLS/HR Fat Emulsion Intravenous 100 ml/Potassium Acetate 65 meq/ Multivitamins 10 ml/Chromium/ Copper/Manganese/ Zinc 1 ml/Insulin Human Regular 5 units/Amino Acids/ Dextrose 1,293.55 ml @ 54 mls/hr [id number] IV 06/30/25 22:00 07/01/25 21:59 objective GENERAL: Alert and oriented x 3. No acute distress. EYES: PERRL, EOMI. Anicteric. HENT: Moist mucous membranes. LUNGS: Decreased breath sounds. CARDIOVASCULAR: Regular rate and rhythm. ABDOMEN: Soft, nontender and nondistended. EXTREMITIES: No edema. NEUROLOGIC: No focal neurological deficits. SKIN: Warm, dry. laboratory and microbiology Laboratory Tests 06/30/25 03:30 Test 06/30/25 03:30 Range/Units Serum Glucose 151 H 74-106 mg/dL Problem List Chronic HFpEF, NYHA class IV. Paroxysmal atrial fibrillation, stage III, now NSR (on amiodarone/Elqiuis therapy). Severe aortic valve and mitral valve insufficiency. Acute hypoxic respiratory failure. Asthma. Chronic kidney disease. Thyroid disease. Prediabetes, newly diagnosed. Morbid obesity. History of tobacco use. Assessment/Plan Continued all current supportive medical care. Nitro SL. GI prophylactics. Diuretics with Lasix. IV antibiotics as ordered. Nebulized breathing treatments. Additional plan as per the hospital course. Critical care time of 45 minutes provided to include time spent evaluation of patient at bedside, when appropriate patient/family education for diagnosis, treatment plan, review of pertinent medical information and discussion of care with specialty providers and PCP. Dietary Evaluation Review Comments: 1) If patient remains NPO > 7 days, consider EN/TPN to meet at least 75% of estimated daily needs 2) If gut is preferred, consider Nepro @ 25 mL/hr goal rate as tolerated. Flush with 200 mL free H2O Q6H. TF regimen will provide 1080 kcals, 49g Pro, and 1236 mL free H2O per 24 hrs. TF regimen will meet ~ 92% estimated energy needs and 52% estimated protein needs. 3) Advance to 60g CCHO renal cardiac diet when medically feasible, pending ST approval 4) Refer to outpatient RD/CDCES for weight management 5) Follow-up with cardiology, pulmonology, or nephrology 6) Continue to monitor I&O, labs, and skin integrity Expected Outcomes/Goals: 1) patient to receive nutritional support within 7 days of NPO status 2) labs to improve 3) diet to advance 4) f/u in 2-3 days Plan discussed with: Patient Capillary Refill: < 3 seconds URBANO TRUONG MD Jun 30, 2025 13:42
[2025-06-30] MEDS: AMIODARONE HCL 200 MG TAB PO SCH (21:46)
[2025-06-30] MEDS: Jevity 1.2 Cal/Fiber 1 Liter GT SCH (21:47)
[2025-06-30] MEDS ORDERED: TPN PER PHARMACY IV NR (22:00)
[2025-07-01] VITALS (108 sets, daily range): BP systolic 101–190; BP diastolic 39–71; PULSE 73–147; RESP 9–30; TEMP 98–98.9; O2SAT 88–100
[2025-07-01 04:46] LABS: Hematocrit 23.4 % (36.0-46.0); Hemoglobin 7.4 g/dL (12.2-16.2); Mean Corpuscular Hemoglobin 27.5 pg (28.0-32.0); Mean Corpuscular Volume 87.2 fL (80.0-100.0); Nucleated Red Blood Cells % 0.1 %
[2025-07-01 04:56] LABS: Anion Gap 12 (5-15); BUN/Creatinine Ratio 69.9 (10.0-20.0); Calcium 8.8 mg/dL (8.7-10.4); Glucose 100 mg/dL (74-106); Magnesium 2.0 mg/dL (1.6-2.6); Potassium 4.5 mmol/L (3.5-5.1)
[2025-07-01 04:57] LABS: Albumin 2.4 g/dL (3.2-4.8); Total Protein 5.3 g/dL (5.7-8.2)
[2025-07-01 04:58] LABS: Bilirubin, Total 0.8 mg/dL (0.2-1.0)
[2025-07-01 05:03] LABS: Alanine Aminotransferase 272 U/L (7-40); Alkaline Phosphatase 196 U/L (46-116); Carbon Dioxide 31 mmol/L (20-31); Chloride 111 mmol/L (98-107); Sodium 154 mmol/L (136-145)
[2025-07-01 05:04] LABS: Blood Urea Nitrogen 107 mg/dL (9-23)
--- NOTE | 2025-07-01 05:08 | DVH ---
CHEST RADIOGRAPH Indication: Pneumonia Technique: Single frontal view of the chest was obtained COMPARISON: XY CHEST PORTABLE on DOS: 06/30/25, XY CHEST XRAY 1 VIEW on DOS: 06/30/25, XY CHEST PORTABL E on DOS: 06/29/25, XY CHEST XRAY 1 VIEW on DOS: 06/29/25, XY CHEST XRAY 1 VIEW on DOS: 06/28/25 FINDINGS: Lines and Tubes: Right PICC and enteric catheter unchanged. Lungs: Clear Pleura: No effusion. No pneumothorax. Cardiomediastinal contours: Unremarkable Bones: Unremarkable IMPRESSION: 1. No acute cardiopulmonary disease. 2. Lines and tubes unchanged.
[2025-07-01 06:51] LABS: Base Excess 6.2 mmol/L (-2.0-3.0)
[2025-07-01] MEDS: FREE WATER GT SCH ×2 (10:00→15:00)
--- NOTE | 2025-07-01 14:45 | DVHPN2 ---
Progress Note - Surgical Date Seen: Jul 01, 2025 Post op day Post op day: 14 Subjective Patient reports: No new complaints (no abdominal pain complaints) Review of Systems: Deferred Objective Vital signs Vital Sign Date Time Temp Pulse Resp B/P (MAP) Pulse Ox O2 Delivery O2 Flow Rate FiO2 07/01/25 14:00 118 07/01/25 14:00 21 96 Nasal Cannula* 1 24 07/01/25 10:46 160/58 (92) 07/01/25 08:01 98.8 98.8 Total Intake and Output 06/30/25 06/30/25 07/01/25 15:00 23:00 07:00 Intake Total 957 ml 508 ml 524 ml Output Total 1725 ml 815 ml Balance 957 ml -1217 ml -291 ml Medications Current Medications Medications Dose Ordered Sig/Bárbara Route Start Time Stop Time Status Last Admin Dose Admin Ondansetron HCl 4 mg Q4HP PRN IV 06/09/25 01:00 Cancel Acetaminophen 650 mg Q6HP PRN PO 06/09/25 01:00 06/30/25 09:41 650 MG Nitroglycerin 0.4 mg Q5MINP PRN SL 06/09/25 01:00 Ipratropium [place] 0.5 mg Q6HR NEB 06/14/25 10:15 07/01/25 11:58 0.5 MG Levalbuterol HCl 1.25 mg Q6HR NEB 06/15/25 00:00 07/01/25 11:58 1.25 MG Sodium Bicarbonate 75 ml/ Dextrose 1,075 ml @ 700 mls/hr Q1H33M IV 06/16/25 17:15 06/16/25 18:47 Cancel Pantoprazole Sodium 40 mg BID IV 06/17/25 10:00 07/01/25 09:16 40 MG Vancomycin HCl 0 ml @ 0 mls/hr UD IV 06/17/25 11:45 Bumetanide 1 mg BIDD IV 06/17/25 18:00 Cancel Micafungin Sodium 100 mg/Sodium Chloride 100 ml @ 100 mls/hr DAILY IV 06/19/25 10:00 07/01/25 09:10 100 MLS/HR Diagnostic Test (Pha) 1 strip Q6HR 06/19/25 00:00 07/01/25 11:45 1 STRIP Insulin Human Regular FOLLOW SLIDING SCALE Q6HR SC 06/19/25 00:00 06/30/25 18:20 2 UNITS Dextrose 50 ml UD IV 06/18/25 22:00 Meropenem 50 ml @ 17 mls/hr DAILY@0100 IV 06/21/25 01:00 Cancel Acetaminophen/ Hydrocodone Bitart 1 tab Q4HP PRN PO 06/26/25 13:40 06/27/25 14:44 1 TAB Furosemide 20 mg DAILY IV 06/27/25 10:00 07/01/25 09:16 20 MG Meropenem 50 ml @ 17 mls/hr Q8H IV 06/27/25 18:00 07/01/25 09:17 17 MLS/HR Enteral Nutritional Formula 240 ml BIDWM PO 06/27/25 18:00 Morphine Sulfate 1 mg Q4HP PRN IV 06/29/25 05:30 06/30/25 00:30 1 MG Sodium Chloride 10 ml QSHIFT@10,22 IV 06/29/25 22:00 07/01/25 11:46 10 ML Dextrose 1,000 ml @ 50 mls/hr Q20H IV 06/30/25 09:00 07/01/25 04:51 50 MLS/HR Amiodarone HCl 200 mg Q12HR PO 06/30/25 22:00 07/01/25 09:41 200 MG Purified Water 200 ml Q4HR GT 07/01/25 10:00 07/01/25 13:19 200 ML Enteral Nutritional Formula 1,000 ml 40ML/HR GT 07/01/25 13:45 UNV Laboratory Laboratory Tests 07/01/25 03:00 Test 07/01/25 03:00 Range/Units Serum Glucose 100 74-106 mg/dL Microbiology Date/Time Source Procedure Growth Status 06/17/25 07:00 Stool Stool Culture - Final Complete 06/17/25 07:00 Stool Shiga Toxin I & II - Final Complete 06/16/25 10:30 Blood Blood Culture - Final NO GROWTH AFTER 5 DAYS OF INCUBATION. Complete 06/11/25 14:25 Nose MRSA Screen - Final Complete Examination: GENERAL:Abnormal (Not much interaction), ABDOMEN:Abnormal (Nondistended, soft, depressible, midline wound with a wound VAC placed no surrounding signs of infection, loop ileostomy in right lower quadrant with mucosa pink and bilious output, drains with minimal serosanguineous output, nontender) Labs and/or images reviewed: Labs reviewed by me (No leukocytosis) Problem List/Assessment/Plan Assessment and Plan Mrs. Penaloza is a 54-year-old female who has been in the hospital since June 08 due to pneumonia and CHF exacerbation that resulted in intubation. I was consulted on 06/17 due to severe colonic distention and pneumatosis seen on CT from that day. She ended receiving a subtotal colectomy colectomy, with primary ileocolic anastomosis and protective loop ileostomy. Interval: Patient [facility], they were advanced this morning to 20 mL. Okay to advance to feeds to goal. Surgeries: 06/17: Exploratory laparotomy, subtotal colectomy (resection of ascending and transverse colon), temporary abdominal closure 06/19: Exploratory laparotomy, takedown of temporary abdominal dressing, wash out, resection of descending colon 06/20: Exploratory laparotomy, takedown of temporary abdominal dressing, washout, ileocolic anastomosis, protective loop ileostomy, drain placement x2, fascial closure 1. Okay to advance tube feeds to goal 2. Continue with TPN, she was malnourished, and she has not eaten anything significant since extubation 3. Wound VAC for midline wound 4. Drain stripping and emptying once per shift and p.r.n. 5. Recommend continuation of IV antibiotics for a total of 7 days from the last surgery on 06/20 6. No GI cathartic medications 7. Physical therapy consultation Plan discussed with Plan discussed with: Patient Visit Coding Surgery Date of Service if different f: Jul 01, 2025 Billing Provider: SONAM ALCARAZ MD Surgery Visit Codes: [id number] INP/OBS CARE(HIGH) SONAM ALCARAZ MD Jul 01, 2025 14:45
[2025-07-01] MEDS: VANCOMYCIN 500mg/100mL 100 ML IV ONE (14:52)
--- NOTE | 2025-07-01 15:05 | DVHPN2 ---
Progress Note Date Seen: Jul 01, 2025 Medical Necessity Reason Pt with a Central, PICC or Fol: Yes The following are medically ne: Central Line, Engel Catheter Subjective Changes from previous H/P or p: Changes (NGT) Objective vital signs Vital Sign Date Time Temp Pulse Resp B/P (MAP) Pulse Ox O2 Delivery O2 Flow Rate FiO2 07/01/25 14:00 118 07/01/25 14:00 21 96 Nasal Cannula* 1 24 07/01/25 10:46 160/58 (92) 07/01/25 08:01 98.8 98.8 Total Intake and Output 06/30/25 06/30/25 07/01/25 15:00 23:00 07:00 Intake Total 957 ml 508 ml 524 ml Output Total 1725 ml 815 ml Balance 957 ml -1217 ml -291 ml medications Current Medications Medications Dose Ordered Sig/Bárbara Route Start Time Stop Time Status Last Admin Dose Admin Ondansetron HCl 4 mg Q4HP PRN IV 06/09/25 01:00 Cancel Acetaminophen 650 mg Q6HP PRN PO 06/09/25 01:00 06/30/25 09:41 650 MG Nitroglycerin 0.4 mg Q5MINP PRN SL 06/09/25 01:00 Ipratropium [place] 0.5 mg Q6HR NEB 06/14/25 10:15 07/01/25 11:58 0.5 MG Levalbuterol HCl 1.25 mg Q6HR NEB 06/15/25 00:00 07/01/25 11:58 1.25 MG Sodium Bicarbonate 75 ml/ Dextrose 1,075 ml @ 700 mls/hr Q1H33M IV 06/16/25 17:15 06/16/25 18:47 Cancel Pantoprazole Sodium 40 mg BID IV 06/17/25 10:00 07/01/25 09:16 40 MG Vancomycin HCl 0 ml @ 0 mls/hr UD IV 06/17/25 11:45 Bumetanide 1 mg BIDD IV 06/17/25 18:00 Cancel Micafungin Sodium 100 mg/Sodium Chloride 100 ml @ 100 mls/hr DAILY IV 06/19/25 10:00 07/01/25 09:10 100 MLS/HR Diagnostic Test (Pha) 1 strip Q6HR 06/19/25 00:00 07/01/25 11:45 1 STRIP Insulin Human Regular FOLLOW SLIDING SCALE Q6HR SC 06/19/25 00:00 06/30/25 18:20 2 UNITS Dextrose 50 ml UD IV 06/18/25 22:00 Meropenem 50 ml @ 17 mls/hr DAILY@0100 IV 06/21/25 01:00 Cancel Acetaminophen/ Hydrocodone Bitart 1 tab Q4HP PRN PO 06/26/25 13:40 06/27/25 14:44 1 TAB Furosemide 20 mg DAILY IV 06/27/25 10:00 07/01/25 09:16 20 MG Meropenem 50 ml @ 17 mls/hr Q8H IV 06/27/25 18:00 07/01/25 09:17 17 MLS/HR Enteral Nutritional Formula 240 ml BIDWM PO 06/27/25 18:00 Morphine Sulfate 1 mg Q4HP PRN IV 06/29/25 05:30 06/30/25 00:30 1 MG Sodium Chloride 10 ml QSHIFT@10,22 IV 06/29/25 22:00 07/01/25 11:46 10 ML Dextrose 1,000 ml @ 50 mls/hr Q20H IV 06/30/25 09:00 07/01/25 04:51 50 MLS/HR Amiodarone HCl 200 mg Q12HR PO 06/30/25 22:00 07/01/25 09:41 200 MG Purified Water 200 ml Q4HR GT 07/01/25 10:00 07/01/25 13:19 200 ML Enteral Nutritional Formula 1,000 ml 40ML/HR GT 07/01/25 13:45 UNV Examination: GENERAL:Abnormal, CVS:Abnormal, ABDOMEN:Abnormal laboratory and microbiology Laboratory Tests 07/01/25 03:00 Test 07/01/25 03:00 Range/Units Serum Glucose 100 74-106 mg/dL Microbiology Date/Time Source Procedure Growth Status 06/17/25 07:00 Stool Stool Culture - Final Complete 06/17/25 07:00 Stool Shiga Toxin I & II - Final Complete 06/16/25 10:30 Blood Blood Culture - Final NO GROWTH AFTER 5 DAYS OF INCUBATION. Complete 06/11/25 14:25 Nose MRSA Screen - Final Complete Problem List/Assessment/Plan Problem List/Assessment/Plan 54-year-old female past medical history of chronic kidney disease and recent admission for sepsis due to bacteremia presents to the hospital complaining of shortness of breath and developed respiratory failure in the setting of pneumonia. Acute kidney injury required acute HD temporarily now off Dr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 Switch to tube feeds. hold lasix for next 24hrs. increase free water in NGT add phoslo and check phos level tomorrow monitor uop replace electrolytes as needed Plan discussed with: Patient My Orders My Orders Orders - TIM MORALES MD Procedure Category Date Status Time Free Water PHA 07/01/25 Logged 15:00 Basic Metabolic Panel LAB 07/02/25 Verified 04:00 Complete Blood Count LAB 07/02/25 Verified 04:00 Calcium Acetate PHA 07/01/25 Logged Capsule (Phoslo 22:00 Dietary Evaluation Review Comments: 1) If patient remains NPO > 7 days, consider EN/TPN to meet at least 75% of estimated daily needs 2) If gut is preferred, consider Nepro @ 25 mL/hr goal rate as tolerated. Flush with 200 mL free H2O Q6H. TF regimen will provide 1080 kcals, 49g Pro, and 1236 mL free H2O per 24 hrs. TF regimen will meet ~ 92% estimated energy needs and 52% estimated protein needs. 3) Advance to 60g CCHO renal cardiac diet when medically feasible, pending ST approval 4) Refer to outpatient RD/CDCES for weight management 5) Follow-up with cardiology, pulmonology, or nephrology 6) Continue to monitor I&O, labs, and skin integrity Expected Outcomes/Goals: 1) patient to receive nutritional support within 7 days of NPO status 2) labs to improve 3) diet to advance 4) f/u in 2-3 days Critical Care Time (mins): 33 Sepsis reassessment post fluid Capillary Refill: < 3 seconds TIM MORALES MD Jul 01, 2025 15:05
--- NOTE | 2025-07-01 19:43 | DVHPNRES ---
Progress Note Date Seen: Jul 01, 2025 Resident Creating Document: ELISEO GOMEZ RESDIENT Medical Necessity Reason Pt with a Central, PICC or Fol: Yes The following are medically ne: Central Line, Engel Catheter Subjective Review of Systems Patient is seen examined at bedside. Patient is feeling better, and nasal cannula. Objective vital signs Vital Sign Date Time Temp Pulse Resp B/P (MAP) Pulse Ox O2 Delivery O2 Flow Rate FiO2 07/01/25 18:46 118 18 142/53 (82) 97 07/01/25 18:00 Nasal Cannula* 1 24 07/01/25 16:01 98.0 98.0 Total Intake and Output 06/30/25 06/30/25 07/01/25 15:00 23:00 07:00 Intake Total 957 ml 508 ml 524 ml Output Total 1725 ml 815 ml Balance 957 ml -1217 ml -291 ml medications Current Medications Medications Dose Ordered Sig/Bárbara Route Start Time Stop Time Status Last Admin Dose Admin Ondansetron HCl 4 mg Q4HP PRN IV 06/09/25 01:00 Cancel Acetaminophen 650 mg Q6HP PRN PO 06/09/25 01:00 06/30/25 09:41 650 MG Nitroglycerin 0.4 mg Q5MINP PRN SL 06/09/25 01:00 Ipratropium [place] 0.5 mg Q6HR NEB 06/14/25 10:15 07/01/25 18:08 0.5 MG Levalbuterol HCl 1.25 mg Q6HR NEB 06/15/25 00:00 07/01/25 18:08 1.25 MG Sodium Bicarbonate 75 ml/ Dextrose 1,075 ml @ 700 mls/hr Q1H33M IV 06/16/25 17:15 06/16/25 18:47 Cancel Pantoprazole Sodium 40 mg BID IV 06/17/25 10:00 07/01/25 09:16 40 MG Vancomycin HCl 0 ml @ 0 mls/hr UD IV 06/17/25 11:45 Bumetanide 1 mg BIDD IV 06/17/25 18:00 Cancel Micafungin Sodium 100 mg/Sodium Chloride 100 ml @ 100 mls/hr DAILY IV 06/19/25 10:00 07/01/25 09:10 100 MLS/HR Diagnostic Test (Pha) 1 strip Q6HR 06/19/25 00:00 07/01/25 17:58 1 STRIP Insulin Human Regular FOLLOW SLIDING SCALE Q6HR SC 06/19/25 00:00 06/30/25 18:20 2 UNITS Dextrose 50 ml UD IV 06/18/25 22:00 Meropenem 50 ml @ 17 mls/hr DAILY@0100 IV 06/21/25 01:00 Cancel Acetaminophen/ Hydrocodone Bitart 1 tab Q4HP PRN PO 06/26/25 13:40 06/27/25 14:44 1 TAB Meropenem 50 ml @ 17 mls/hr Q8H IV 06/27/25 18:00 07/01/25 17:57 17 MLS/HR Enteral Nutritional Formula 240 ml BIDWM PO 06/27/25 18:00 Morphine Sulfate 1 mg Q4HP PRN IV 06/29/25 05:30 06/30/25 00:30 1 MG Sodium Chloride 10 ml QSHIFT@10,22 IV 06/29/25 22:00 07/01/25 11:46 10 ML Amiodarone HCl 200 mg Q12HR PO 06/30/25 22:00 07/01/25 09:41 200 MG Enteral Nutritional Formula 1,000 ml 40ML/HR GT 07/01/25 13:45 Purified Water 400 ml Q4HR GT 07/01/25 15:00 07/01/25 17:57 400 ML Calcium Acetate 667 mg Q8HR NG 07/01/25 22:00 Examination General Appearance: Alert, Oriented X3, in moderate respiratory distress HEENT: Atraumatic, PERRLA, EOMI, Mucous membrane moist/pink Respiratory: Bilateral crackles Cardiovascular: Regular rate, Normal S1, Normal S2, No murmurs, no chest wall tenderness Abdominal: Normal bowel sounds, Soft, No tenderness, No hepatospenomegaly, No masses Extremities: No clubbing, No cyanosis, No edema, Normal pulses, No tenderness/swelling Skin: Wound VAC on the surgical area, with no sign of infection or drainage laboratory and microbiology Laboratory Tests 07/01/25 03:00 Test 07/01/25 03:00 Range/Units Serum Glucose 100 74-106 mg/dL Microbiology Date/Time Source Procedure Growth Status 06/17/25 07:00 Stool Stool Culture - Final Complete 06/17/25 07:00 Stool Shiga Toxin I & II - Final Complete 06/16/25 10:30 Blood Blood Culture - Final NO GROWTH AFTER 5 DAYS OF INCUBATION. Complete 06/11/25 14:25 Nose MRSA Screen - Final Complete Labs and/or images reviewed: Labs reviewed by me, Image(s) reviewed by me Problem List/Assessment/Plan Problem List/Assessment/Plan This is a 54-year-old female with past medical history of HFpEF, paroxysmal AFib, severe TR, severe MR, prediabetic, asthma, CKD 3A, morbid obesity, came to ER due to shortness of breaths, cough and bilateral lower limb swelling for 2 weeks. Admitted on 06/09, put on BiPAP but the patient's condition worsened and got intubated on 06/11. Extubated on 06/26. NEURO: * Extubated on 06/26 CARDIOVASCULAR: Acute on chronic diastolic heart failure exacerbation Paroxysmal Atrial fibrillation with RVR Pulmonary edema due to heart failure Severe aortic insufficiency, mitral valve insufficiency, tricuspid regurg Acquired coagulopathy * Chads Vasc: 2 * Per Cardiology:patient underwent a transesophageal echocardiogram on 03/26/2025 which revealed an EF of 60% with severe aortic insufficiency and with moderate mitral insufficiency. * We will recommend to continue antiarrhythmic therapy with amiodarone, DOAC therapy with Eliquis, and beta-octavio for rate control . * Outpatient follow up with Dr. Melo in [place] for aortic valve replacement with possible TAVR as well as possible mitral clip. * Plan: Lasix 20 IV daily PULMONARY: Acute hypoxic respiratory failure, likely due to pneumonia/COPD exacerbation/asthma exacerbation COPD on 4 L at home Hx of Pna and intubation 2022 Sepsis secondary to Acute Gram-positive and Gram-negative pneumonia Likely COPD on 4L home O2 History of asthma * Plan: Continue vancomycin (06/17), meropenem (06/27), micafungin (06/19), and present treatment GASTROINTESTINAL: Pneumatosis intestinalis and megacolon likely ischemic bowel Perforation and peritonitis Status s/p laparotomy, subtotal colectomy (ascending and transfer) 06/17, resection of descending colon 06/19, ileocolic anastomosis with protective loop ileostomy, drain placement 06/20 Transaminitis, 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 Evidence of portal venous gas * liver ultrasound shows hepatic steatosis * Surgeon - wound VAC for midline GENITOURINARY: NYASIA secondary to hemodynamically mediated/VMN requiring hemodialysis 06/20 (1 session) ? Chronic kidney disease Anemia of CKD * Kidney ultrasound shows Normal sonographic appearance of the kidneys. No hydronephrosis. 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 DISPOSITION: ICU status Patient's status discussed with patient's has been at the bedside. Critical care time spent more than 54 minutes, including patient care, chart review, and updating the family. Excluding any procedures. Case discussed with Dr. Benjamin Plan discussed with: Patient My Orders My Orders Orders - ELISEO GOMEZ RESDIDOMONIQUE Procedure Category Date Status Time Abg W/ Co-Ox RT 07/01/25 Logged 04:00 Comprehensive LAB 07/02/25 Verified Metabolic Panel 04:00 Dietary Evaluation Review Comments: 1) If patient remains NPO > 7 days, consider EN/TPN to meet at least 75% of estimated daily needs 2) If gut is preferred, consider Nepro @ 25 mL/hr goal rate as tolerated. Flush with 200 mL free H2O Q6H. TF regimen will provide 1080 kcals, 49g Pro, and 1236 mL free H2O per 24 hrs. TF regimen will meet ~ 92% estimated energy needs and 52% estimated protein needs. 3) Advance to 60g CCHO renal cardiac diet when medically feasible, pending ST approval 4) Refer to outpatient RD/CDCES for weight management 5) Follow-up with cardiology, pulmonology, or nephrology 6) Continue to monitor I&O, labs, and skin integrity Expected Outcomes/Goals: 1) patient to receive nutritional support within 7 days of NPO status 2) labs to improve 3) diet to advance 4) f/u in 2-3 days Sepsis reassessment post fluid Capillary Refill: < 3 seconds Date of Service: Jul 01, 2025 Billing Provider: ELZA BENJAMIN MD Common Visit Codes: [id number] CARE 30-74 MIN ELISEO GOMEZ Jul 01, 2025 19:43 ELZA BENJAMIN MD Jul 04, 2025 11:06
[2025-07-01] MEDS: CALCIUM ACETATE 667 MG CAP NG SCH (21:30)
--- NOTE | 2025-07-01 23:53 | DVHPN2 ---
Progress Note - Dictate Date Seen: Jul 01, 2025 Medical Necessity Reason Pt with a Central, PICC or Fol: Yes The following are medically ne: Central Line, Engel Catheter Subjective Patient was seen and evaluated in follow up in the ICU. Patient is awake, spontaneously opens eyes and only follows simple commands however only responds to her name. Patient is stable on 1 LPM NC. HGB 7.4, HCT 23.4, NA 154, BUN 107, SALES DEMONSTRATOR 1.53, AST 344, ALT 272. Chest x-ray shows NAD. vital signs Vital Sign Date Time Temp Pulse Resp B/P (MAP) Pulse Ox O2 Delivery O2 Flow Rate FiO2 07/01/25 11:54 131 17 97 07/01/25 10:46 160/58 (92) 07/01/25 10:00 Nasal Cannula* 1 24 07/01/25 08:01 98.8 98.8 Total Intake and Output 06/30/25 06/30/25 07/01/25 15:00 23:00 07:00 Intake Total 957 ml 508 ml 524 ml Output Total 1725 ml 815 ml Balance 957 ml -1217 ml -291 ml medications Current Medications Medications Dose Ordered Sig/Bárbara Route Start Time Stop Time Status Last Admin Dose Admin Ondansetron HCl 4 mg Q4HP PRN IV 06/09/25 01:00 Cancel Acetaminophen 650 mg Q6HP PRN PO 06/09/25 01:00 06/30/25 09:41 650 MG Nitroglycerin 0.4 mg Q5MINP PRN SL 06/09/25 01:00 Ipratropium [place] 0.5 mg Q6HR NEB 06/14/25 10:15 07/01/25 11:58 0.5 MG Levalbuterol HCl 1.25 mg Q6HR NEB 06/15/25 00:00 07/01/25 11:58 1.25 MG Sodium Bicarbonate 75 ml/ Dextrose 1,075 ml @ 700 mls/hr Q1H33M IV 06/16/25 17:15 06/16/25 18:47 Cancel Pantoprazole Sodium 40 mg BID IV 06/17/25 10:00 07/01/25 09:16 40 MG Vancomycin HCl 0 ml @ 0 mls/hr UD IV 06/17/25 11:45 Bumetanide 1 mg BIDD IV 06/17/25 18:00 Cancel Micafungin Sodium 100 mg/Sodium Chloride 100 ml @ 100 mls/hr DAILY IV 06/19/25 10:00 07/01/25 09:10 100 MLS/HR Diagnostic Test (Pha) 1 strip Q6HR 06/19/25 00:00 07/01/25 11:45 1 STRIP Insulin Human Regular FOLLOW SLIDING SCALE Q6HR SC 06/19/25 00:00 06/30/25 18:20 2 UNITS Dextrose 50 ml UD IV 06/18/25 22:00 Meropenem 50 ml @ 17 mls/hr DAILY@0100 IV 06/21/25 01:00 Cancel Acetaminophen/ Hydrocodone Bitart 1 tab Q4HP PRN PO 06/26/25 13:40 06/27/25 14:44 1 TAB Furosemide 20 mg DAILY IV 06/27/25 10:00 07/01/25 09:16 20 MG Meropenem 50 ml @ 17 mls/hr Q8H IV 06/27/25 18:00 07/01/25 09:17 17 MLS/HR Enteral Nutritional Formula 240 ml BIDWM PO 06/27/25 18:00 Morphine Sulfate 1 mg Q4HP PRN IV 06/29/25 05:30 06/30/25 00:30 1 MG Sodium Chloride 10 ml QSHIFT@10,22 IV 06/29/25 22:00 07/01/25 11:46 10 ML Dextrose 1,000 ml @ 50 mls/hr Q20H IV 06/30/25 09:00 07/01/25 04:51 50 MLS/HR Amiodarone HCl 200 mg Q12HR PO 06/30/25 22:00 07/01/25 09:41 200 MG Enteral Nutritional Formula 1,000 ml 30ML/HR GT 06/30/25 17:15 06/30/25 21:47 1,000 ML Purified Water 200 ml Q4HR GT 07/01/25 10:00 objective GENERAL: Alert and oriented x 3. No acute distress. EYES: PERRL, EOMI. Anicteric. HENT: Moist mucous membranes. LUNGS: Decreased breath sounds. CARDIOVASCULAR: Regular rate and rhythm. ABDOMEN: Soft, nontender and nondistended. EXTREMITIES: No edema. NEUROLOGIC: No focal neurological deficits. SKIN: Warm, dry. laboratory and microbiology Laboratory Tests 07/01/25 03:00 Test 07/01/25 03:00 Range/Units Serum Glucose 100 74-106 mg/dL Problem List Chronic HFpEF, NYHA class IV. Paroxysmal atrial fibrillation, stage III, now NSR (on amiodarone/Elqiuis therapy). Severe aortic valve and mitral valve insufficiency. Acute hypoxic respiratory failure. Asthma. Chronic kidney disease. Thyroid disease. Prediabetes, newly diagnosed. Morbid obesity. History of tobacco use. Assessment/Plan Continued all current supportive medical care. Nitro SL. GI prophylactics. Diuretics with Lasix. IV antibiotics as ordered. Nebulized breathing treatments. Additional plan as per the hospital course. Critical care time of 45 minutes provided to include time spent evaluation of patient at bedside, when appropriate patient/family education for diagnosis, treatment plan, review of pertinent medical information and discussion of care with specialty providers and PCP. Dietary Evaluation Review Comments: 1) If patient remains NPO > 7 days, consider EN/TPN to meet at least 75% of estimated daily needs 2) If gut is preferred, consider Nepro @ 25 mL/hr goal rate as tolerated. Flush with 200 mL free H2O Q6H. TF regimen will provide 1080 kcals, 49g Pro, and 1236 mL free H2O per 24 hrs. TF regimen will meet ~ 92% estimated energy needs and 52% estimated protein needs. 3) Advance to 60g CCHO renal cardiac diet when medically feasible, pending ST approval 4) Refer to outpatient RD/CDCES for weight management 5) Follow-up with cardiology, pulmonology, or nephrology 6) Continue to monitor I&O, labs, and skin integrity Expected Outcomes/Goals: 1) patient to receive nutritional support within 7 days of NPO status 2) labs to improve 3) diet to advance 4) f/u in 2-3 days Plan discussed with: Patient Capillary Refill: < 3 seconds URBANO TRUONG MD Jul 01, 2025 12:10
[2025-07-02] VITALS (104 sets, daily range): BP systolic 114–177; BP diastolic 24–70; PULSE 92–113; RESP 14–34; TEMP 98.7–100.8; O2SAT 91–100
[2025-07-02 04:12] LABS: Alanine Aminotransferase 181 U/L (7-40); Albumin 2.6 g/dL (3.2-4.8); Alkaline Phosphatase 188 U/L (46-116); Anion Gap 13 (5-15); BUN/Creatinine Ratio 50.0 (10.0-20.0); Bilirubin, Total 0.8 mg/dL (0.2-1.0); Blood Urea Nitrogen 70 mg/dL (9-23); Calcium 9.1 mg/dL (8.7-10.4); Carbon Dioxide 29 mmol/L (20-31); Chloride 108 mmol/L (98-107); Glucose 134 mg/dL (74-106); Potassium 3.9 mmol/L (3.5-5.1); Sodium 150 mmol/L (136-145); Total Protein 5.8 g/dL (5.7-8.2)
[2025-07-02 04:18] LABS: Hematocrit 25.4 % (36.0-46.0); Hemoglobin 7.9 g/dL (12.2-16.2); Mean Corpuscular Hemoglobin 27.1 pg (28.0-32.0); Mean Corpuscular Volume 87.2 fL (80.0-100.0)
[2025-07-02] MEDS: Jevity 1.2 Cal/Fiber 1 Liter GT SCH (05:14)
[2025-07-02 05:17] LABS: Total Cells Counted 100.0 (100)
--- NOTE | 2025-07-02 10:59 | DVHPN2 ---
Progress Note Date Seen: Jul 02, 2025 Resident Creating Document: GLADYS FREEMAN RESIDENT Medical Necessity Reason Pt with a Central, PICC or Fol: Yes The following are medically ne: Central Line, Engel Catheter Subjective Review of Systems The patient was seen and examined on the bedside. She is alert oriented x2 and on nasal cannula. Last 12 hour urine output is 800 mL. Objective vital signs Vital Sign Date Time Temp Pulse Resp B/P (MAP) Pulse Ox O2 Delivery O2 Flow Rate FiO2 07/02/25 10:15 97 28 125/26 (59) 97 07/02/25 10:00 Nasal Cannula* 1 24 07/02/25 09:50 100.0 Total Intake and Output 07/01/25 07/01/25 07/02/25 15:00 23:00 07:00 Intake Total 550 ml 1017 ml 1606 ml Output Total 1905 ml 1035 ml Balance 550 ml -888 ml 571 ml medications Current Medications Medications Dose Ordered Sig/Bárbara Route Start Time Stop Time Status Last Admin Dose Admin Ondansetron HCl 4 mg Q4HP PRN IV 06/09/25 01:00 Cancel Acetaminophen 650 mg Q6HP PRN PO 06/09/25 01:00 07/02/25 08:50 650 MG Nitroglycerin 0.4 mg Q5MINP PRN SL 06/09/25 01:00 Ipratropium [place] 0.5 mg Q6HR NEB 06/14/25 10:15 07/02/25 06:49 0.5 MG Levalbuterol HCl 1.25 mg Q6HR NEB 06/15/25 00:00 07/02/25 06:49 1.25 MG Sodium Bicarbonate 75 ml/ Dextrose 1,075 ml @ 700 mls/hr Q1H33M IV 06/16/25 17:15 06/16/25 18:47 Cancel Pantoprazole Sodium 40 mg BID IV 06/17/25 10:00 07/02/25 10:53 40 MG Vancomycin HCl 0 ml @ 0 mls/hr UD IV 06/17/25 11:45 Bumetanide 1 mg BIDD IV 06/17/25 18:00 Cancel Micafungin Sodium 100 mg/Sodium Chloride 100 ml @ 100 mls/hr DAILY IV 06/19/25 10:00 07/02/25 10:52 100 MLS/HR Diagnostic Test (Pha) 1 strip Q6HR 06/19/25 00:00 07/02/25 05:40 1 STRIP Insulin Human Regular FOLLOW SLIDING SCALE Q6HR SC 06/19/25 00:00 06/30/25 18:20 2 UNITS Dextrose 50 ml UD IV 06/18/25 22:00 Meropenem 50 ml @ 17 mls/hr DAILY@0100 IV 06/21/25 01:00 Cancel Acetaminophen/ Hydrocodone Bitart 1 tab Q4HP PRN PO 06/26/25 13:40 06/27/25 14:44 1 TAB Meropenem 50 ml @ 17 mls/hr Q8H IV 06/27/25 18:00 07/02/25 10:52 17 MLS/HR Enteral Nutritional Formula 240 ml BIDWM PO 06/27/25 18:00 Morphine Sulfate 1 mg Q4HP PRN IV 06/29/25 05:30 07/02/25 05:04 1 MG Sodium Chloride 10 ml QSHIFT@10,22 IV 06/29/25 22:00 07/02/25 10:53 10 ML Amiodarone HCl 200 mg Q12HR PO 06/30/25 22:00 07/02/25 10:53 200 MG Enteral Nutritional Formula 1,000 ml 40ML/HR GT 07/01/25 13:45 07/02/25 05:14 1,000 ML Purified Water 400 ml Q4HR GT 07/01/25 15:00 07/02/25 10:55 400 ML Calcium Acetate 667 mg Q8HR NG 07/01/25 22:00 07/02/25 05:40 667 MG Examination Physical examination: General Appearance: Alert, Oriented X2, Cooperative, No acute distress HEENT: Atraumatic, PERRLA, EOMI, Mucous membrane moist/pink Respiratory: Bilateral crackles Cardiovascular: Regular rate, Normal S1, Normal S2, No murmurs, no chest wall tenderness Abdominal: Midline abdominal surgical wound with wound VAC, ileostomy bag, Normal bowel sounds, Soft, No hepatospenomegaly, No masses Extremities: No clubbing, No cyanosis, No edema, Normal pulses, No tenderness/swelling Skin: No rashes, No breakdown, No significant lesion Neuro: Not able to mobilize the limbs, Sensation intact, Cranial nerves 3-12 NL, Reflexes 2+ Psych/Mental Status: Could not be assessed. laboratory and microbiology Laboratory Tests 07/02/25 03:03 Test 07/02/25 03:03 Range/Units Serum Glucose 134 H 74-106 mg/dL Microbiology Date/Time Source Procedure Growth Status 06/17/25 07:00 Stool Stool Culture - Final Complete 06/17/25 07:00 Stool Shiga Toxin I & II - Final Complete 06/16/25 10:30 Blood Blood Culture - Final NO GROWTH AFTER 5 DAYS OF INCUBATION. Complete 06/11/25 14:25 Nose MRSA Screen - Final Complete Labs and/or images reviewed: Labs reviewed by me, Image(s) reviewed by me Problem List/Assessment/Plan Problem List/Assessment/Plan Assessment and plan: Acute kidney injury required acute HD temporarily now off 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 Tube feed with nepro. hold lasix for next 24hrs. Hypernatremia improving, decreased free water to 250 mL q.6 hr through GT tube. Phoslo tid monitor uop replace electrolytes as needed Sign off now and patient is stable from Nephrology standpoint Thank you so much for the opportunity to consult on your patient. In case of any questions or concerns please feel free to reach out. Plan discussed with Dr. Bobo. Plan discussed with: Other (RN) My Orders My Orders Orders - GLADYS FREEMAN RESIDENT Procedure Category Date Status Time Free Water PHA 07/02/25 Verified 11:00 Dietary Evaluation Review Comments: 1) If patient remains NPO > 7 days, consider EN/TPN to meet at least 75% of estimated daily needs 2) If gut is preferred, consider Nepro @ 25 mL/hr goal rate as tolerated. Flush with 200 mL free H2O Q6H. TF regimen will provide 1080 kcals, 49g Pro, and 1236 mL free H2O per 24 hrs. TF regimen will meet ~ 92% estimated energy needs and 52% estimated protein needs. 3) Advance to 60g CCHO renal cardiac diet when medically feasible, pending ST approval 4) Refer to outpatient RD/[facility] for weight management 5) Follow-up with cardiology, pulmonology, or nephrology 6) Continue to monitor I&O, labs, and skin integrity Expected Outcomes/Goals: 1) patient to receive nutritional support within 7 days of NPO status 2) labs to improve 3) diet to advance 4) f/u in 2-3 days Sepsis reassessment post fluid Capillary Refill: < 3 seconds GLADYS FREEMAN RESIDENT Jul 02, 2025 10:59
--- NOTE | 2025-07-02 12:27 | DVHPN2 ---
Progress Note - Surgical Date Seen: Jul 02, 2025 Post op day Post op day: 15 Subjective Patient reports: No new complaints (Patient is still looking very weak, afebrile, no leukocytosis, ileostomy producing, no complaints of abdominal pain) Review of Systems: Deferred Objective Vital signs Vital Sign Date Time Temp Pulse Resp B/P (MAP) Pulse Ox O2 Delivery O2 Flow Rate FiO2 07/02/25 12:16 98 22 99 07/02/25 12:08 Nasal Cannula* 1 24 07/02/25 12:00 98.8 114/30 (58) 98.8 Total Intake and Output 07/01/25 07/01/25 07/02/25 15:00 23:00 07:00 Intake Total 550 ml 1017 ml 1606 ml Output Total 1905 ml 1035 ml Balance 550 ml -888 ml 571 ml Medications Current Medications Medications Dose Ordered Sig/Bárbara Route Start Time Stop Time Status Last Admin Dose Admin Ondansetron HCl 4 mg Q4HP PRN IV 06/09/25 01:00 Cancel Acetaminophen 650 mg Q6HP PRN PO 06/09/25 01:00 07/02/25 08:50 650 MG Nitroglycerin 0.4 mg Q5MINP PRN SL 06/09/25 01:00 Ipratropium [place] 0.5 mg Q6HR NEB 06/14/25 10:15 07/02/25 12:08 0.5 MG Levalbuterol HCl 1.25 mg Q6HR NEB 06/15/25 00:00 07/02/25 12:08 1.25 MG Sodium Bicarbonate 75 ml/ Dextrose 1,075 ml @ 700 mls/hr Q1H33M IV 06/16/25 17:15 06/16/25 18:47 Cancel Pantoprazole Sodium 40 mg BID IV 06/17/25 10:00 07/02/25 10:53 40 MG Vancomycin HCl 0 ml @ 0 mls/hr UD IV 06/17/25 11:45 Bumetanide 1 mg BIDD IV 06/17/25 18:00 Cancel Micafungin Sodium 100 mg/Sodium Chloride 100 ml @ 100 mls/hr DAILY IV 06/19/25 10:00 07/02/25 10:52 100 MLS/HR Diagnostic Test (Pha) 1 strip Q6HR 06/19/25 00:00 07/02/25 12:18 1 STRIP Insulin Human Regular FOLLOW SLIDING SCALE Q6HR SC 06/19/25 00:00 07/02/25 11:49 2 UNITS Dextrose 50 ml UD IV 06/18/25 22:00 Meropenem 50 ml @ 17 mls/hr DAILY@0100 IV 06/21/25 01:00 Cancel Acetaminophen/ Hydrocodone Bitart 1 tab Q4HP PRN PO 06/26/25 13:40 06/27/25 14:44 1 TAB Meropenem 50 ml @ 17 mls/hr Q8H IV 06/27/25 18:00 07/02/25 10:52 17 MLS/HR Enteral Nutritional Formula 240 ml BIDWM PO 06/27/25 18:00 Morphine Sulfate 1 mg Q4HP PRN IV 06/29/25 05:30 07/02/25 05:04 1 MG Sodium Chloride 10 ml QSHIFT@10,22 IV 06/29/25 22:00 07/02/25 10:53 10 ML Amiodarone HCl 200 mg Q12HR PO 06/30/25 22:00 07/02/25 10:53 200 MG Enteral Nutritional Formula 1,000 ml 40ML/HR GT 07/01/25 13:45 07/02/25 05:14 1,000 ML Calcium Acetate 667 mg Q8HR NG 07/01/25 22:00 07/02/25 05:40 667 MG Purified Water 250 ml Q6HR GT 07/02/25 18:00 Laboratory Laboratory Tests 07/02/25 03:03 Test 07/02/25 03:03 Range/Units Serum Glucose 134 H 74-106 mg/dL Microbiology Date/Time Source Procedure Growth Status 06/17/25 07:00 Stool Stool Culture - Final Complete 06/17/25 07:00 Stool Shiga Toxin I & II - Final Complete 06/16/25 10:30 Blood Blood Culture - Final NO GROWTH AFTER 5 DAYS OF INCUBATION. Complete 06/11/25 14:25 Nose MRSA Screen - Final Complete Examination: ABDOMEN:Abnormal (Nondistended, midline wound with wound VAC placed without surrounding signs of infection, ileostomy with pink mucosa and stool in bag, both drains with very minimal serosanguineous output, nontender) Labs and/or images reviewed: Labs reviewed by me (Leukocytosis at 11.6) Problem List/Assessment/Plan Assessment and Plan Mrs. Penaloza is a 54-year-old female who has been in the hospital since June 08 due to pneumonia and CHF exacerbation that resulted in intubation. I was consulted on 06/17 due to severe colonic distention and pneumatosis seen on CT from that day. She ended receiving a subtotal colectomy colectomy, with primary ileocolic anastomosis and protective loop ileostomy. Interval: Patient continues to tolerate tube feeds, she is receiving Jevity 1.2 currently at 30 mL per hour, which is her goal. Ileostomy producing nicely. Drains very minimal serosanguineous output, drains will likely, in the next couple of days. Midline wound with VAC, healing very well Surgeries: 06/17: Exploratory laparotomy, subtotal colectomy (resection of ascending and transverse colon), temporary abdominal closure 06/19: Exploratory laparotomy, takedown of temporary abdominal dressing, wash out, resection of descending colon 06/20: Exploratory laparotomy, takedown of temporary abdominal dressing, washout, ileocolic anastomosis, protective loop ileostomy, drain placement x2, fascial closure 1. Okay to advance tube feeds to goal 2. Continue with TPN, she was malnourished, and she has not eaten anything significant since extubation 3. Wound VAC for midline wound 4. Drain stripping and emptying once per shift and p.r.n. 5. Recommend continuation of IV antibiotics for a total of 7 days from the last surgery on 06/20 6. No GI cathartic medications 7. Physical therapy consultation Plan discussed with Plan discussed with: Patient Visit Coding Surgery Date of Service if different f: Jul 02, 2025 Billing Provider: SONAM ALCARAZ MD Surgery Visit Codes: [id number] INP/OBS CARE(HIGH) SONAM ALCARAZ MD Jul 02, 2025 12:27
[2025-07-02 15:01] LABS: Mean Corpuscular Hemoglobin 26.7 pg (28.0-32.0)
[2025-07-02 15:04] LABS: Hematocrit 20.4 % (36.0-46.0); Mean Corpuscular Volume 87.0 fL (80.0-100.0)
[2025-07-02 15:12] LABS: Hemoglobin 6.2 g/dL (12.2-16.2)
[2025-07-02 15:31] LABS: Base Excess 6.2 mmol/L (-2.0-3.0)
[2025-07-02 16:13] LABS: Total Cells Counted 100.0 (100)
--- NOTE | 2025-07-02 17:48 | DVHPNRES ---
Progress Note Date Seen: Jul 02, 2025 Resident Creating Document: ELISEO GOMEZ RESDIENT Medical Necessity Reason Pt with a Central, PICC or Fol: Yes The following are medically ne: Central Line, Engel Catheter Subjective Review of Systems Patient seen and examined at the bedside. Patient has abdominal pain, and has bleeding per ileostomy back and per rectum Objective vital signs Vital Sign Date Time Temp Pulse Resp B/P (MAP) Pulse Ox O2 Delivery O2 Flow Rate FiO2 07/02/25 16:15 99 18 165/58 (93) 98 07/02/25 14:00 Nasal Cannula* 2 28 07/02/25 12:00 98.8 98.8 Total Intake and Output 07/01/25 07/01/25 07/02/25 14:59 22:59 06:59 Intake Total 550 ml 1067 ml 1606 ml Output Total 1905 ml 1035 ml Balance 550 ml -838 ml 571 ml medications Current Medications Medications Dose Ordered Sig/Bárbara Route Start Time Stop Time Status Last Admin Dose Admin Ondansetron HCl 4 mg Q4HP PRN IV 06/09/25 01:00 Cancel Acetaminophen 650 mg Q6HP PRN PO 06/09/25 01:00 07/02/25 08:50 650 MG Nitroglycerin 0.4 mg Q5MINP PRN SL 06/09/25 01:00 Ipratropium [place] 0.5 mg Q6HR NEB 06/14/25 10:15 07/02/25 12:08 0.5 MG Levalbuterol HCl 1.25 mg Q6HR NEB 06/15/25 00:00 07/02/25 12:08 1.25 MG Sodium Bicarbonate 75 ml/ Dextrose 1,075 ml @ 700 mls/hr Q1H33M IV 06/16/25 17:15 06/16/25 18:47 Cancel Pantoprazole Sodium 40 mg BID IV 06/17/25 10:00 07/02/25 10:53 40 MG Vancomycin HCl 0 ml @ 0 mls/hr UD IV 06/17/25 11:45 Bumetanide 1 mg BIDD IV 06/17/25 18:00 Cancel Micafungin Sodium 100 mg/Sodium Chloride 100 ml @ 100 mls/hr DAILY IV 06/19/25 10:00 07/02/25 10:52 100 MLS/HR Diagnostic Test (Pha) 1 strip Q6HR 06/19/25 00:00 07/02/25 12:18 1 STRIP Insulin Human Regular FOLLOW SLIDING SCALE Q6HR SC 06/19/25 00:00 07/02/25 11:49 2 UNITS Dextrose 50 ml UD IV 06/18/25 22:00 Meropenem 50 ml @ 17 mls/hr DAILY@0100 IV 06/21/25 01:00 Cancel Acetaminophen/ Hydrocodone Bitart 1 tab Q4HP PRN PO 06/26/25 13:40 06/27/25 14:44 1 TAB Meropenem 50 ml @ 17 mls/hr Q8H IV 06/27/25 18:00 07/02/25 10:52 17 MLS/HR Enteral Nutritional Formula 240 ml BIDWM PO 06/27/25 18:00 Morphine Sulfate 1 mg Q4HP PRN IV 06/29/25 05:30 07/02/25 05:04 1 MG Sodium Chloride 10 ml QSHIFT@10,22 IV 06/29/25 22:00 07/02/25 10:53 10 ML Amiodarone HCl 200 mg Q12HR PO 06/30/25 22:00 07/02/25 10:53 200 MG Calcium Acetate 667 mg Q8HR NG 07/01/25 22:00 07/02/25 05:40 667 MG Purified Water 250 ml Q6HR GT 07/02/25 18:00 laboratory and microbiology Laboratory Tests 07/02/25 14:26 07/02/25 03:03 Test 07/02/25 03:03 Range/Units Serum Glucose 134 H 74-106 mg/dL Microbiology Date/Time Source Procedure Growth Status 06/17/25 07:00 Stool Stool Culture - Final Complete 06/17/25 07:00 Stool Shiga Toxin I & II - Final Complete 06/16/25 10:30 Blood Blood Culture - Final NO GROWTH AFTER 5 DAYS OF INCUBATION. Complete 06/11/25 14:25 Nose MRSA Screen - Final Complete Labs and/or images reviewed: Labs reviewed by me, Image(s) reviewed by me Problem List/Assessment/Plan Problem List/Assessment/Plan This is a 54-year-old female with past medical history of HFpEF, paroxysmal AFib, severe TR, severe MR, prediabetic, asthma, CKD 3A, morbid obesity, came to ER due to shortness of breaths, cough and bilateral lower limb swelling for 2 weeks. Admitted on 06/09, put on BiPAP but the patient's condition worsened and got intubated on 06/11. Extubated on 06/26. NEURO: * Extubated on 06/26 CARDIOVASCULAR: Acute on chronic diastolic heart failure exacerbation Paroxysmal Atrial fibrillation with RVR Pulmonary edema due to heart failure Severe aortic insufficiency, mitral valve insufficiency, tricuspid regurg Acquired coagulopathy * Chads Vasc: 2 * Per Cardiology:patient underwent a transesophageal echocardiogram on 03/26/2025 which revealed an EF of 60% with severe aortic insufficiency and with moderate mitral insufficiency. * We will recommend to continue antiarrhythmic therapy with amiodarone, DOAC therapy with Eliquis, and beta-octvaio for rate control . * Outpatient follow up with Dr. Melo in [place] for aortic valve replacement with possible TAVR as well as possible mitral clip. * Plan: Lasix 20 IV daily PULMONARY: Acute hypoxic respiratory failure, likely due to pneumonia/COPD exacerbation/asthma exacerbation COPD on 4 L at home Hx of Pna and intubation 2022 Sepsis secondary to Acute Gram-positive and Gram-negative pneumonia Likely COPD on 4L home O2 History of asthma * Plan: Continue vancomycin (06/17), meropenem (06/27), micafungin (06/19), and breathing treatment GASTROINTESTINAL: Pneumatosis intestinalis and megacolon likely ischemic bowel Perforation and peritonitis Status s/p laparotomy, subtotal colectomy (ascending and transfer) 06/17, resection of descending colon 06/19, ileocolic anastomosis with protective loop ileostomy, drain placement 06/20 Transaminitis, 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 Evidence of portal venous gas * liver ultrasound shows hepatic steatosis * Surgeon - wound VAC for midline * Today 07/02, the patient got abdominal pain, subsequently developed bleeding from ileostomy and rectal (almost 500 mL). Patient was evaluated by surgeon at the bedside, evaluated the ileostomy, digitize both ileostomy, both patent. Recommended GI evaluation and possible scope, consulted GI, an updated the on-call doctor on phone, reports that she will, and we will assess at the bedside for possible scope. * Plan: Follow up with the GI and possible CT abdominal after GI evaluation GENITOURINARY: NYASIA secondary to hemodynamically mediated/VMN requiring hemodialysis 06/20 (1 session) ? Chronic kidney disease Anemia of CKD * Kidney ultrasound shows Normal sonographic appearance of the kidneys. No hydronephrosis. 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 Due to severe anemia and active bleeding, 2 pt of blood transfused. Surgical evaluation performed at the bedside, recommended GI evaluation. GI doctor updated through the phone, reports that she will evaluate the patient at bedside for possible scope. Critical care time spent more than 97 minutes, including patient care, chart review, and updating the family. Excluding any procedures. Case discussed with Dr. Ferrera Plan discussed with: Patient My Orders My Orders Orders - ELISEO GOMEZ RESDIDOMONIQUE Procedure Category Date Status Time * [employer] Coach CONS 07/02/25 Transmitted Consult Tube Feeding DIET 07/02/25 Transmitted Lunch * Gi Dvh Demurrage Man CONS 07/02/25 Transmitted 14:33 Type And Screen BBK 07/02/25 In Process 14:54 Abg W/ Co-Ox RT 07/02/25 Logged 15:06 Dietary Evaluation Review Comments: 1) If patient remains NPO > 7 days, consider EN/TPN to meet at least 75% of estimated daily needs 2) If gut is preferred, consider Nepro @ 25 mL/hr goal rate as tolerated. Flush with 200 mL free H2O Q6H. TF regimen will provide 1080 kcals, 49g Pro, and 1236 mL free H2O per 24 hrs. TF regimen will meet ~ 92% estimated energy needs and 52% estimated protein needs. 3) Advance to 60g CCHO renal cardiac diet when medically feasible, pending ST approval 4) Refer to outpatient RD/CDCES for weight management 5) Follow-up with cardiology, pulmonology, or nephrology 6) Continue to monitor I&O, labs, and skin integrity Expected Outcomes/Goals: 1) patient to receive nutritional support within 7 days of NPO status 2) labs to improve 3) diet to advance 4) f/u in 2-3 days Sepsis reassessment post fluid Capillary Refill: < 3 seconds ELISEO GOMEZ Jul 02, 2025 17:48
[2025-07-02] MEDS: FREE WATER GT SCH (17:49)
[2025-07-02] MEDS: ACETAMINOPHEN IV 1000 MG/100ML (10MG/ML) IV ONE ×2 (19:45→22:58)
[2025-07-02 20:59] LABS: Hemoglobin 10.1 g/dL (12.2-16.2)
[2025-07-02 21:00] LABS: Hematocrit 31.6 % (36.0-46.0)
--- NOTE | 2025-07-02 22:47 | DVHPN2 ---
Progress Note - Dictate Date Seen: Jul 02, 2025 Medical Necessity Reason Pt with a Central, PICC or Fol: Yes The following are medically ne: Central Line, Engel Catheter Subjective Patient was seen and evaluated in follow up in the ICU. Patient complains of back pain. Abdominal wound vac is in place. WBC 11.6, HGB 7.9, HCT 25.4, NA 150, BUN 70, RECRUITMENT INTERN 1.40, AST 129, ALT 181. vital signs Vital Sign Date Time Temp Pulse Resp B/P (MAP) Pulse Ox O2 Delivery O2 Flow Rate FiO2 07/02/25 10:15 97 28 125/26 (59) 97 07/02/25 10:00 Nasal Cannula* 1 24 07/02/25 09:50 100.0 Total Intake and Output 07/01/25 07/01/25 07/02/25 15:00 23:00 07:00 Intake Total 550 ml 1017 ml 1606 ml Output Total 1905 ml 1035 ml Balance 550 ml -888 ml 571 ml medications Current Medications Medications Dose Ordered Sig/Bárbara Route Start Time Stop Time Status Last Admin Dose Admin Ondansetron HCl 4 mg Q4HP PRN IV 06/09/25 01:00 Cancel Acetaminophen 650 mg Q6HP PRN PO 06/09/25 01:00 07/02/25 08:50 650 MG Nitroglycerin 0.4 mg Q5MINP PRN SL 06/09/25 01:00 Ipratropium [place] 0.5 mg Q6HR NEB 06/14/25 10:15 07/02/25 06:49 0.5 MG Levalbuterol HCl 1.25 mg Q6HR NEB 06/15/25 00:00 07/02/25 06:49 1.25 MG Sodium Bicarbonate 75 ml/ Dextrose 1,075 ml @ 700 mls/hr Q1H33M IV 06/16/25 17:15 06/16/25 18:47 Cancel Pantoprazole Sodium 40 mg BID IV 06/17/25 10:00 07/02/25 10:53 40 MG Vancomycin HCl 0 ml @ 0 mls/hr UD IV 06/17/25 11:45 Bumetanide 1 mg BIDD IV 06/17/25 18:00 Cancel Micafungin Sodium 100 mg/Sodium Chloride 100 ml @ 100 mls/hr DAILY IV 06/19/25 10:00 07/02/25 10:52 100 MLS/HR Diagnostic Test (Pha) 1 strip Q6HR 06/19/25 00:00 07/02/25 05:40 1 STRIP Insulin Human Regular FOLLOW SLIDING SCALE Q6HR SC 06/19/25 00:00 07/02/25 11:49 2 UNITS Dextrose 50 ml UD IV 06/18/25 22:00 Meropenem 50 ml @ 17 mls/hr DAILY@0100 IV 06/21/25 01:00 Cancel Acetaminophen/ Hydrocodone Bitart 1 tab Q4HP PRN PO 06/26/25 13:40 06/27/25 14:44 1 TAB Meropenem 50 ml @ 17 mls/hr Q8H IV 06/27/25 18:00 07/02/25 10:52 17 MLS/HR Enteral Nutritional Formula 240 ml BIDWM PO 06/27/25 18:00 Morphine Sulfate 1 mg Q4HP PRN IV 06/29/25 05:30 07/02/25 05:04 1 MG Sodium Chloride 10 ml QSHIFT@10,22 IV 06/29/25 22:00 07/02/25 10:53 10 ML Amiodarone HCl 200 mg Q12HR PO 06/30/25 22:00 07/02/25 10:53 200 MG Enteral Nutritional Formula 1,000 ml 40ML/HR GT 07/01/25 13:45 07/02/25 05:14 1,000 ML Calcium Acetate 667 mg Q8HR NG 07/01/25 22:00 07/02/25 05:40 667 MG Purified Water 250 ml Q6HR GT 07/02/25 18:00 objective GENERAL: Alert and oriented x 3. No acute distress. EYES: PERRL, EOMI. Anicteric. HENT: Moist mucous membranes. LUNGS: Decreased breath sounds. CARDIOVASCULAR: Regular rate and rhythm. ABDOMEN: Soft, nontender and nondistended. EXTREMITIES: No edema. NEUROLOGIC: No focal neurological deficits. SKIN: Warm, dry. laboratory and microbiology Laboratory Tests 07/02/25 03:03 Test 07/02/25 03:03 Range/Units Serum Glucose 134 H 74-106 mg/dL Problem List Chronic HFpEF, NYHA class IV. Paroxysmal atrial fibrillation, stage III, now NSR (on amiodarone/Elqiuis therapy). Severe aortic valve and mitral valve insufficiency. Acute hypoxic respiratory failure. Asthma. Chronic kidney disease. Thyroid disease. Prediabetes, newly diagnosed. Morbid obesity. History of tobacco use. Assessment/Plan Continued all current supportive medical care. Amiodarone. GI prophylactics. Diuretics with Lasix. IV antibiotics as ordered. Morphine for pain management. Additional plan as per the hospital course. Critical care time of 45 minutes provided to include time spent evaluation of patient at bedside, when appropriate patient/family education for diagnosis, treatment plan, review of pertinent medical information and discussion of care with specialty providers and PCP. Dietary Evaluation Review Comments: 1) If patient remains NPO > 7 days, consider EN/TPN to meet at least 75% of estimated daily needs 2) If gut is preferred, consider Nepro @ 25 mL/hr goal rate as tolerated. Flush with 200 mL free H2O Q6H. TF regimen will provide 1080 kcals, 49g Pro, and 1236 mL free H2O per 24 hrs. TF regimen will meet ~ 92% estimated energy needs and 52% estimated protein needs. 3) Advance to 60g CCHO renal cardiac diet when medically feasible, pending ST approval 4) Refer to outpatient RD/CDCES for weight management 5) Follow-up with cardiology, pulmonology, or nephrology 6) Continue to monitor I&O, labs, and skin integrity Expected Outcomes/Goals: 1) patient to receive nutritional support within 7 days of NPO status 2) labs to improve 3) diet to advance 4) f/u in 2-3 days Plan discussed with: Patient Capillary Refill: < 3 seconds URBANO TRUONG MD Jul 02, 2025 12:07
--- NOTE | 2025-07-02 23:13 | DVHINCON2 ---
Date of service: Jul 02, 2025 Reason for Consultation GI bleed History of Present Illness 54 y/o F pt with PMH of admitted early Jun with shortness of breath, CHF exacerbation and pneumonia. Her clinical course was complicated with pneumatosis intestinalis with portal venous gas on CT. She had below emergent surgeries Surgeries: 06/17: Exploratory laparotomy, subtotal colectomy (resection of ascending and transverse colon), temporary abdominal closure 06/19: Exploratory laparotomy, takedown of temporary abdominal dressing, wash out, resection of descending colon 06/20: Exploratory laparotomy, takedown of temporary abdominal dressing, washout, ileocolic anastomosis, protective loop ileostomy, drain placement x2, fascial closure GI team consulted for rectal bleed and blood in ileostomy bag. RN reported had 400 ml liquid stool mixed with blood, slowing down during my encounter Past Medical History Reviewed Past Surgical History Reviewed Family History: Alcoholism G8 BROTHER G8 BROTHER G8 BROTHER G8 SISTER Diabetes mellitus G8 BROTHER Hypercholesterolemia Hypertension G8 MOTHER G8 FATHER G8 BROTHER G8 BROTHER G8 BROTHER 19 CHILD 19 CHILD 19 CHILD G8 SISTER G8 SISTER G8 SISTER G8 SISTER G8 SISTER G8 SISTER Allergies: Coded Allergies: Erythromycin (Unverified Allergy, Severe, 01/19/25) Ondansetron (Unverified Allergy, Severe, hives, 06/09/25) Azithromycin (Verified Allergy, Unknown, 01/19/25) Home Meds Active Scripts Furosemide (Furosemide) 40 Mg Tab, 1 TAB PO BID, #90 TAB Prov:MEENU LINDER MD 01/25/25 Apixaban Base (ELIQUIS) 5 Mg Tab, 5 MG PO BID, #90 TAB Prov:MEENU LINDER MD 06/13/24 Amiodarone Hcl (Amiodarone Hcl) 200 Mg Tab, 1 TAB PO DAILY, #30 TAB Prov:MEENU LINDER MD 06/13/24 Reported Medications Doxepin HCl (Doxepin Hydrochloride) 100 Mg Cap, 2 CAP PO HS for 90 Days, #180 06/30/25 Prazosin HCl (Prazosin Hydrochloride) 2 Mg Cap, 2 CAP PO HS for 90 Days, #270 06/30/25 Prazosin HCl (Prazosin Hydrochloride) 2 Mg Cap, 1 CAP PO QAM for 90 Days, #270 06/30/25 Nifedipine (Nifedipine Er) 60 Mg Tab, 1 TAB PO DAILY for 90 Days, #90 06/30/25 Ibuprofen Micronized (Ibuprofen) 800 Mg Tab, 1 TAB PO BID PRN for PAIN for 30 Days, #60 06/30/25 Fluticasone Propionate (Nasal) (Fluticasone Propionate) 50 Mcg/Act Spr, 2 SPRAY EACHNOSTRI DAILY for 30 Days, #16 06/30/25 Promethazine Hcl (Promethazine Hcl) 25 Mg Tab, 1 TAB PO TID PRN for NAUSEA for 30 Days, #90 06/30/25 Metoprolol Succinate (Metoprolol Succinate Er) 200 Mg Tab, 1 TAB PO BID for 90 Days, #180 06/30/25 Nitrofurantoin (MACRODANTIN CAPSULE) 50 Mg Cp, 1 CAP PO DAILY for 30 Days, #30 06/30/25 Hydrocodone-Acetaminophen (Hydrocodone Bitartrate/AC 10-325 mg) 1 Tab Tab, 1 TAB PO Q6HR PRN for SEVERE CHRONIC PAIN for 30 Days, #120 06/30/25 Tizanidine Hydrochloride (Tizanidine Hcl) 4 Mg Tab, 1 TAB PO BID for 30 Days, #60 06/30/25 Alprazolam (Alprazolam) 0.5 Mg Tab, 1 TAB PO BID PRN for ANXIETY for 30 Days, #60 03/25/25 Lactobacillus (PROBIOTIC) Cap, 1 CAP PO DAILY for SUPPLEMENT, CAP 01/19/25 Cholecalciferol (VITAMIN D3) 2,000 Unit Tab, 1 TAB PO DAILY for SUPPLEMENT, #30 TAB 5 Refills 01/19/25 Ipratropium-Albuterol (Ipratropium Smilax/Albut) 1 Susana Susana, 1 SUSANA IN Q4HP PRN for SHORTNESS OF BREATH, ML 01/19/25 Hydroxyzine Hcl (Hydroxyzine Hcl) 25 Mg Tab, 25 MG PO Q6HP PRN for N&V, MG 01/19/25 Estradiol (Estradiol) 1 Mg Tab, 1 MG PO DAILY for VAGINAL DRYNESS, MG 01/19/25 Hyoscyamine Sulfate (Levsin) 0.125 Mg Tab, 1 TAB PO Q4HPRN PRN for increased secretions, #120 TAB 5 Refills 01/19/25 Sertraline Hcl (Sertraline Hcl) 100 Mg Tab, 2 TAB PO DAILY for PTSD for 90 Days, #180 01/19/25 Clonidine Hydrochloride (Clonidine Hcl) 0.1 Mg Tab, 1 TAB PO BID for bp>150 for 90 Days, #180 01/19/25 Rosuvastatin Calcium (Crestor) 40 Mg Tab, 40 MG PO DAILY, TAB 06/12/24 Albuterol Sulfate (Albuterol Sulfate Hfa) 108 Mcg/Act Aer, 2.5 MG IN QID, AER 06/12/24 Pantoprazole Sodium Sesquihydr (Pantoprazole Sodium) 40 Mg Tab, 1 TAB PO DAILY for 90 Days, #90 06/12/24 Current Medications Current Medications Medications (Trade) Dose Ordered Sig/Bárbara Route PRN Reason Start Time Stop Time Status Last Admin Purified Water 250 ml Q6HR GT 07/02/25 18:00 Amlodipine Besylate (Norvasc Tablet) 5 mg DAILY PO 07/03/25 10:00 07/02/25 14:28 DC Review of Systems Unable to obtain due to clinical condition Vital Signs Vital Signs Date Time Temp Pulse Resp B/P (MAP) Pulse Ox O2 Delivery O2 Flow Rate FiO2 07/02/25 19:30 108 21 134/68 (90) 98 07/02/25 18:01 Nasal Cannula 3.0 07/02/25 18:01 32 07/02/25 16:00 100.3 100.3 Physical Exam GE: in no acute distress CVS: S1S2+ Lungs: clear Abdomen: soft, wound vac in place. Ileostomy bag showed minimal blood with green colored stool Labs/Diagnostic Data Labs Test 07/02/25 20:38 07/02/25 17:58 07/02/25 15:15 07/02/25 14:26 Range/Units Hemoglobin 10.1 #L 12.2-16.2 g/dL Hematocrit 31.6 #L 36.0-46.0 % POC Glucose 116 H 70-106 mg/dl Blood Gas Specimen Type Arterial Blood Gas Sample Site Left radial Blood Gas Patient Temperature 37.0 Arterial Blood Date Drawn [id number] Arterial Blood pH 7.515 H 7.350-7.450 Arterial Blood Partial Pressure CO2 37.6 32.0-45.0 mmHg Arterial Blood Partial Pressure O2 63.7 L 83.0-108.0 mmHg Arterial Blood HCO3 29.7 H 21.0-28.0 mmol/L Arterial Blood Oxygen Saturation 90.5 L 94.0-98.0 % Arterial Blood Base Excess 6.2 H -2.0-3.0 mmol/L Arterial Blood Oxyhemoglobin 89.9 L 94.0-98.0 % Arterial Blood Carboxyhemoglobin 0.3 L 0.5-1.5 % Arterial Blood Methemoglobin 0.4 0.0-1.5 % Elfego Test Yes Blood Gas Total Hemoglobin 6.90 *L 12.0-16.0 g/dL Blood Gas Liter Flow 1.00 Blood Gas Modality Nasal cannula FiO2 % 24.0 Blood Gas Critical Value Read Back Yes Blood Gas Notified Whom pratik Win md Blood Gas Notified Time [id number] Blood Gas Notified By Manager [employer] uri espino White Blood Count 14.6 #H 4.4-10.8 10^3/uL Red Blood Count 2.34 L 4.0-5.20 10^6/uL Mean Corpuscular Volume 87.0 80.0-100.0 fL Mean Corpuscular Hemoglobin 26.7 L 28.0-32.0 pg Mean Corpuscular Hemoglobin Concent 30.6 L 32.0-36.0 g/dL Red Cell Distribution Width 17.0 H 11.8-14.3 % Platelet Count 536 H 140-450 10^3/uL Mean Platelet Volume 10.0 6.9-10.8 fL Neutrophils (%) (Auto) 37.0-80.0 % Lymphocytes (%) (Auto) 10.0-50.0 % Monocytes (%) (Auto) 0.0-12.0 % Basophils (%) (Auto) 0.0-2.0 % Neutrophils # (Auto) 1.6-8.6 10 ^3/uL Lymphocytes # (Auto) 0.4-5.4 10 ^3/uL Monocytes # (Auto) 0-1.3 10 ^3/uL Differential Total Cells Counted 100.0 100 Neutrophils % (Manual) 49 37.0-80.0 Band Neutrophils % (Manual) 12 Lymphocytes % (Manual) 27 10.0-50.0 Monocytes % (Manual) 7 0-12 Eosinophils % (Manual) 1 0-7 Basophils % (Manual) 0 0.0-2.0 Metamyelocytes % (manual) 2 Myelocytes % (Manual) 2 Promyelocytes % (Manual) 0 Blast Cells % (Manual) 0 Reactive Lymphocytes 0 Platelet Estimate Increa Large Platelets Few Test 07/02/25 03:03 07/01/25 03:00 06/29/25 16:01 06/28/25 17:52 Range/Units Sodium Level 150 H 136-145 mmol/L Potassium Level 3.9 3.5-5.1 mmol/L Chloride Level 108 H 98-107 mmol/L Carbon Dioxide Level 29 20-31 mmol/L Anion Gap 13 5-15 Blood Urea Nitrogen 70 #H 9-23 mg/dL Creatinine 1.40 H 0.550-1.02 mg/dL Glomerular Filtration Rate Calc 45 >90 mL/min BUN/Creatinine Ratio 50.0 H 10.0-20.0 Serum Glucose 134 H 74-106 mg/dL Calcium Level 9.1 8.7-10.4 mg/dL Total Bilirubin 0.8 0.2-1.0 mg/dL Aspartate Amino Transferase (AST) 129 H 13-40 U/L Alanine Aminotransferase (ALT) 181 H 7-40 U/L Alkaline Phosphatase 188 H 46-116 U/L Total Protein 5.8 5.7-8.2 g/dL Albumin 2.6 L 3.2-4.8 g/dL Random Vancomycin Level 20.9 H 5-10 ug/mL Eosinophils (%) (Auto) 1.9 0.0-7.0 % Eosinophils # (Auto) 0.2 0-0.8 10 ^3/uL Basophils # (Auto) 0.1 0-0.2 10 ^3/uL Nucleated Red Blood Cells 0.1 % Phosphorus Level 5.5 H 2.4-5.1 mg/dL Magnesium Level 2.0 1.6-2.6 mg/dL Blood Gas Set Respiration Rate 12.0 Blood Gas EPAP 5 Blood Gas IPAP 12 Prothrombin Time 11.3 9.3-11.8 sec Prothrombin Time INR 1.07 0.9-1.15 Activated Partial Thromboplast Time 24.4 L 24.5-34.5 SEC Test 06/26/25 08:53 06/26/25 03:20 06/25/25 10:45 06/25/25 07:13 Range/Units Blood Gas Spontaneous Rate 16 Blood Gas PEEP or CPAP 5.0 Target Cells Few Triglycerides Level 180 H < 150 mg/dL Blood Gas Pressure Support 8 Blood Gas Tidal Volume 450.0 Test 06/25/25 03:41 06/22/25 02:45 06/20/25 01:07 06/17/25 22:45 Range/Units Hypersegmented Neutrophils Present Giant Platelets Few Anisocytosis (manual) Slight Hepatitis A IgM Antibody Negative Hepatitis B Surface Antigen Negative Negative Hepatitis B Core IgM Antibody Negative Negative Hepatitis C Antibody Negative Negative Lactic Acid Level 2.0 0.4-2.0 mmol/L Test 06/17/25 07:00 06/16/25 17:00 06/16/25 03:25 06/16/25 03:02 Range/Units Stool Occult Blood Positive Negative Stool Occult Blood Sample #3 Negative Influenza Type A Antigen Negative Negative Influenza Type B Antigen Negative Negative SARS-CoV-2 Antigen (Rapid) Negative NEGATIVE Erythrocyte Sedimentation Rate 53 H 0-20 mm/hr C-Reactive Protein High Sensitivity 5.57 H <1.0 mg/dL Test 06/15/25 09:23 06/15/25 03:24 06/14/25 11:50 06/13/25 03:50 Range/Units Free Thyroxine (T4) Calculated 0.74 L 0.89-1.76 ng/dL Total Triiodothyronine (TT3) 0.85 0.60-1.81 ng/mL Hemoglobin A1c 4.9 <5.7 % A1C Thyroid Stimulating Hormone (TSH) 18.39 H 0.55-4.78 uIU/mL Urine Creatinine 27.77 L 30.0-125.0 mg/dL Urine Protein/Creatinine Ratio 1.72 Urine Sodium 73 40-220 mmol/L Urine Total Protein 47.7 H 1-14 mg/dL Iron Level 27 L 50-170 ug/dL Total Iron Binding Capacity 319 250-425 ug/dL Percent Iron Saturation 8.5 L 15-50 % Ferritin 298.8 H 10-291 ng/mL Test 06/09/25 16:55 06/08/25 22:13 06/08/25 22:07 06/08/25 21:15 Range/Units Urine Color Colorless Yellow Urine Clarity Clear Clear Urine pH 5.5 5.0-9.0 Urine Specific [place] 1.007 1.001-1.035 Urine Protein Negative Negative Urine Ketones Negative Negative Urine Blood 2+ H Negative /uL Urine Nitrite Negative Negative Urine Bilirubin Negative Negative Urine Urobilinogen Normal Negative mg/dL Urine Leukocyte Esterase Negative Negative /uL Urine RBC 38 0 - 4 /hpf Urine Microscopic WBC 1 0-5 /HPF Urine Squamous Epithelial Cells Few <5 /hpf Urine Bacteria None seen None Seen /hpf Urine Glucose Normal Normal mg/dL Troponin I High Sensitivity < 3 L </=34 ng/L Venous Blood pH 7.371 7.320-7.430 Venous Blood pCO2 at Patient Temp 38.8 38.0-54.0 mmHg Venous Blood pO2 at Patient Temp 46.3 23.0-48.0 mmHg Venous Blood HCO3 22.0 22.0-29.0 mmol/L Venous Blood Base Excess -2.9 L -2.0-3.0 mmol/L B-Type Natriuretic Peptide 392.00 0-100 pg/mL Microbiology Date/Time Source Procedure Growth Status 06/17/25 07:00 Stool Stool Culture - Final Complete 06/17/25 07:00 Stool Shiga Toxin I & II - Final Complete 06/16/25 10:30 Blood Blood Culture - Final NO GROWTH AFTER 5 DAYS OF INCUBATION. Complete 06/11/25 14:25 Nose MRSA Screen - Final Complete Assessment #Blood in ileostomy bag #Hematochezia #Anemia #Hypernatremia -Blood in ileostomy bag and rectal bleed likely due to ileocolic anastomic bleed -Pt in resp distress and sodium level high. High risk for GI intervention, in setting of recent surgery and clinical status -Bleeding improving during my encounter. Continue supportive care. Monitor Hb closely and keep >7 -Care plan discussed with RN bedside in detail Thank you for the consult Plan discussed with: Other CAITIE HAJI MD Jul 02, 2025 23:13
[2025-07-03] VITALS (105 sets, daily range): BP systolic 92–160; BP diastolic 29–83; PULSE 86–148; RESP 13–37; TEMP 98.8–99.6; O2SAT 75–100
[2025-07-03 03:50] LABS: Hematocrit 28.1 % (36.0-46.0); Hemoglobin 9.3 g/dL (12.2-16.2); Mean Corpuscular Hemoglobin 28.5 pg (28.0-32.0); Mean Corpuscular Volume 86.5 fL (80.0-100.0)
[2025-07-03 04:09] LABS: Alanine Aminotransferase 105 U/L (7-40); Albumin 2.3 g/dL (3.2-4.8); Alkaline Phosphatase 137 U/L (46-116); Anion Gap 14 (5-15); BUN/Creatinine Ratio 42.1 (10.0-20.0); Bilirubin, Total 0.9 mg/dL (0.2-1.0); Blood Urea Nitrogen 67 mg/dL (9-23); Calcium 8.7 mg/dL (8.7-10.4); Carbon Dioxide 27 mmol/L (20-31); Chloride 112 mmol/L (98-107); Glucose 118 mg/dL (74-106); Magnesium 1.8 mg/dL (1.6-2.6); Potassium 4.1 mmol/L (3.5-5.1); Sodium 153 mmol/L (136-145); Total Protein 5.2 g/dL (5.7-8.2)
--- NOTE | 2025-07-03 05:50 | DVH ---
CHEST RADIOGRAPH Indication: Pneumonia Technique: Single frontal view of the chest was obtained COMPARISON: XY CHEST XRAY 1 VIEW on DOS: 07/01/25, XY CHEST PORTABLE on DOS: 06/30/25, XY CHEST XRAY 1 VIEW on DOS: 06/30/25, XY CHEST PORTABLE on DOS: 06/29/25, XY CHEST XRAY 1 VIEW on DOS: 06/29/25 FINDINGS: Lines and Tubes: Unchanged. Lungs: Clear Pleura: No effusion. No pneumothorax. Cardiomediastinal contours: Unremarkable Bones: Unremarkable IMPRESSION: 1. No acute cardiopulmonary disease. 2. Lines and tubes unchanged.
[2025-07-03 06:47] LABS: Nucleated Red Blood Cells % 1.0 %; Total Cells Counted 100.0 (100)
[2025-07-03 07:54] LABS: Base Excess 2.7 mmol/L (-2.0-3.0)
--- NOTE | 2025-07-03 10:35 | DVHPN2 ---
Progress Note - Surgical Date Seen: Jul 03, 2025 Post op day Post op day: 16 Subjective Patient reports: No new complaints (No abdominal pain complaints, got 2 units of PRBCs yesterday.) Review of Systems: Deferred Objective Vital signs Vital Sign Date Time Temp Pulse Resp B/P (MAP) Pulse Ox O2 Delivery O2 Flow Rate FiO2 07/03/25 07:38 94 19 100 07/03/25 07:27 Nasal Cannula* 3 32 07/03/25 06:45 129/41 (70) 07/03/25 04:00 99.1 99.1 Total Intake and Output 07/02/25 07/02/25 07/03/25 15:00 23:00 07:00 Intake Total 585 ml 1352 ml 0 ml Output Total 1180 ml 470 ml Balance 585 ml 172 ml -470 ml Medications Current Medications Medications Dose Ordered Sig/Bárbara Route Start Time Stop Time Status Last Admin Dose Admin Ondansetron HCl 4 mg Q4HP PRN IV 06/09/25 01:00 Cancel Acetaminophen 650 mg Q6HP PRN PO 06/09/25 01:00 07/02/25 08:50 650 MG Nitroglycerin 0.4 mg Q5MINP PRN SL 06/09/25 01:00 Ipratropium [place] 0.5 mg Q6HR NEB 06/14/25 10:15 07/03/25 07:24 0.5 MG Levalbuterol HCl 1.25 mg Q6HR NEB 06/15/25 00:00 07/03/25 07:24 1.25 MG Sodium Bicarbonate 75 ml/ Dextrose 1,075 ml @ 700 mls/hr Q1H33M IV 06/16/25 17:15 06/16/25 18:47 Cancel Pantoprazole Sodium 40 mg BID IV 06/17/25 10:00 07/02/25 22:19 40 MG Vancomycin HCl 0 ml @ 0 mls/hr UD IV 06/17/25 11:45 Bumetanide 1 mg BIDD IV 06/17/25 18:00 Cancel Micafungin Sodium 100 mg/Sodium Chloride 100 ml @ 100 mls/hr DAILY IV 06/19/25 10:00 07/02/25 10:52 100 MLS/HR Diagnostic Test (Pha) 1 strip Q6HR 06/19/25 00:00 07/03/25 06:41 1 STRIP Insulin Human Regular FOLLOW SLIDING SCALE Q6HR SC 06/19/25 00:00 07/02/25 11:49 2 UNITS Dextrose 50 ml UD IV 06/18/25 22:00 Meropenem 50 ml @ 17 mls/hr DAILY@0100 IV 06/21/25 01:00 Cancel Acetaminophen/ Hydrocodone Bitart 1 tab Q4HP PRN PO 06/26/25 13:40 06/27/25 14:44 1 TAB Meropenem 50 ml @ 17 mls/hr Q8H IV 06/27/25 18:00 07/03/25 01:31 17 MLS/HR Enteral Nutritional Formula 240 ml BIDWM PO 06/27/25 18:00 Morphine Sulfate 1 mg Q4HP PRN IV 06/29/25 05:30 07/02/25 05:04 1 MG Sodium Chloride 10 ml QSHIFT@10,22 IV 06/29/25 22:00 07/02/25 22:20 10 ML Amiodarone HCl 200 mg Q12HR PO 06/30/25 22:00 07/02/25 10:53 200 MG Calcium Acetate 667 mg Q8HR NG 07/01/25 22:00 07/02/25 05:40 667 MG Purified Water 250 ml Q6HR GT 07/02/25 18:00 Laboratory Laboratory Tests 07/03/25 03:00 Test 07/03/25 03:00 Range/Units Serum Glucose 118 H 74-106 mg/dL Microbiology Date/Time Source Procedure Growth Status 06/17/25 07:00 Stool Stool Culture - Final Complete 06/17/25 07:00 Stool Shiga Toxin I & II - Final Complete 06/16/25 10:30 Blood Blood Culture - Final NO GROWTH AFTER 5 DAYS OF INCUBATION. Complete 06/11/25 14:25 Nose MRSA Screen - Final Complete Examination: GENERAL:Abnormal (Week appearing), HEENT:Normal (No icterus), ABDOMEN:Abnormal (Nondistended, midline wound with wound VAC placed no surrounding signs of infection, ileostomy in the right lower quadrant with bloody stool in bag, mucosa pink and no sources of bleeding coming from the mucosa or the ileostomy site, both ileostomy limbs are patent (digitized has bedside), both drains with mostly serous output and very minimal) Labs and/or images reviewed: Labs reviewed by ne (Leukocytosis to 15.2), Image(s) reviewed by me (Chest x-ray with a bilateral effusions) Problem List/Assessment/Plan Problems: (1) Megacolon (2) Pneumatosis intestinalis (3) GI bleed Assessment and Plan Mrs. Penaloza is a 54-year-old female who has been in the hospital since June 08 due to pneumonia and CHF exacerbation that resulted in intubation. I was consulted on 06/17 due to severe colonic distention and pneumatosis seen on CT from that day. She ended receiving a subtotal colectomy colectomy, with primary ileocolic anastomosis and protective loop ileostomy. Interval: Yesterday afternoon I was called to bedside due to bloody stool coming from the ileostomy, I evaluated the site yesterday patient appears to be having a GI bleed. She is also having blood per rectum, which was very foul smelling. I think patient would benefit from upper endoscopy when appropriate, and continue transfusions as needed. She received 2 PRBCs yesterday due to a hemoglobin of 6.2 which went to 10.1 after the transfusion, and this morning is 9.2. This morning she still has some bloody stool in the ileostomy bag. Intraperitoneal drains with very minimal serous fluid. Surgeries: 06/17: Exploratory laparotomy, subtotal colectomy (resection of ascending and transverse colon), temporary abdominal closure 06/19: Exploratory laparotomy, takedown of temporary abdominal dressing, wash out, resection of descending colon 06/20: Exploratory laparotomy, takedown of temporary abdominal dressing, washout, ileocolic anastomosis, protective loop ileostomy, drain placement x2, fascial closure 1. NPO, pending GI evaluation 2. Continue with TPN, she was malnourished, and she has not eaten anything significant since extubation 3. Hold DVT prophylaxis 4. Given the rising white count, and low-grade fevers I recommend obtaining UA, she has had a Engel for a long time. I also recommend C diff testing, given the foul smell coming from her stools. 5. Wound VAC for midline wound 6. Drain stripping and emptying once per shift and p.r.n. 7. Recommend continuation of IV antibiotics for a total of 7 days from the last surgery on 06/20 8. Physical therapy consultation Plan discussed with Plan discussed with: Patient, Spouse Visit Coding Surgery Date of Service if different f: Jul 03, 2025 Billing Provider: SONAM ALCARAZ MD Surgery Visit Codes: [id number] INP/OBS CARE(HIGH) SONAM ALCARAZ MD Jul 03, 2025 10:35
--- NOTE | 2025-07-03 11:23 | DVHPN2 ---
Assessment/Plan Assessment/Plan Progress note 54 F HFpEF, pafib, severe TR, severe MR, CKD3a, morbid obesity for SOB, s/p intubation 06/11 and extubated 06/26. physical exam somnolent, cooperative coarse breath sounds s1 s2 tachy irregular abdomen soft, woundvac in lace, ileostomi draining blood trace le edema labs ekg imaging reviewed assessment and plan acute hypoxic rf s/p mech vent extubated 06/26 acute on chronic diastolic HF pafib w/ RVR pulm edema severe aortic insufficiency COPD group E on home o2 PNA gp vs gn asthma? ischemic bowel and perforation s/p exlap and colectomy 06/17 s/p colectomy 06/19 loop ileostomy and drain 06/20 NYASIA VMN on CKD (s/p HD x1) anemia acute blood loss and chronic disase morbid obesity hypothyroidism severe protein calorie malnutrition HAGMA hypernatremia transaminitis NPO, TPN per surg GI consult pending c/w vanc justin trend h/h c/w o2 supp maintain o2 > 90 maintain map >65 d5w restart amio drip Lasix diurese to euvolemia diet NPO TPN dvt ppx hold GIB gi ppx protonix condition critical prognosis poor full code crit care time 90 minutes Plan discussed with: Patient Date of Service: Jul 03, 2025 Billing Provider: ASHWIN KUNZ MD Common Visit Codes: [id number] CARE 30-74 MIN, [id number] CARE-EACH +30MIN ASHWIN KUNZ MD Jul 03, 2025 11:23
[2025-07-03] MEDS ORDERED: TPN PER PHARMACY 0 ML IV SCH (12:45)
[2025-07-03] MEDS: AMIODARONE BOLUS KIT 100 ML IV ONE (13:05)
[2025-07-03] MEDS: AMIODARONE 360mg/200mL PREMIX 200 ML IV ONE (13:18)
[2025-07-03] MEDS: VANCOMYCIN 500mg/100mL 100 ML IV ONE (15:59)
[2025-07-03 17:33] LABS: Urine Protein, UAD 1+ (Negative)
[2025-07-03 17:46] LABS: Hemoglobin 8.7 g/dL (12.2-16.2)
[2025-07-03 17:48] LABS: Hematocrit 27.5 % (36.0-46.0)
[2025-07-03] MEDS: AMIODARONE 360mg/200mL PREMIX 200 ML IV SCH (18:37)
--- NOTE | 2025-07-03 19:12 | DVHPN2 ---
Progress Note - Dictate Date Seen: Jul 03, 2025 Medical Necessity Reason Pt with a Central, PICC or Fol: Yes The following are medically ne: Central Line, Engel Catheter Subjective Patient was seen and evaluated in follow up in the ICU. Patient is on 3 LPM NC. Patient complains of back discomfort. Abdominal wound vac remains in place and functioning well. Patient is in a-fib in the 130's-150's on the lunchroom monitor and was started on Amiodarone drip. 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 vital signs Vital Sign Date Time Temp Pulse Resp B/P (MAP) Pulse Ox O2 Delivery O2 Flow Rate FiO2 07/03/25 18:01 128 25 105/41 (62) 93 07/03/25 16:01 99.4 99.4 07/03/25 16:00 Nasal Cannula* 2 28 Total Intake and Output 07/02/25 07/02/25 07/03/25 15:00 23:00 07:00 Intake Total 585 ml 1352 ml 0 ml Output Total 1180 ml 470 ml Balance 585 ml 172 ml -470 ml medications Current Medications Medications Dose Ordered Sig/Bárbara Route Start Time Stop Time Status Last Admin Dose Admin Ondansetron HCl 4 mg Q4HP PRN IV 06/09/25 01:00 Cancel Ipratropium [place] 0.5 mg Q6HR NEB 06/14/25 10:15 07/03/25 07:24 0.5 MG Levalbuterol HCl 1.25 mg Q6HR NEB 06/15/25 00:00 07/03/25 07:24 1.25 MG Sodium Bicarbonate 75 ml/ Dextrose 1,075 ml @ 700 mls/hr Q1H33M IV 06/16/25 17:15 06/16/25 18:47 Cancel Pantoprazole Sodium 40 mg BID IV 06/17/25 10:00 07/03/25 10:38 40 MG Vancomycin HCl 0 ml @ 0 mls/hr UD IV 06/17/25 11:45 Bumetanide 1 mg BIDD IV 06/17/25 18:00 Cancel Micafungin Sodium 100 mg/Sodium Chloride 100 ml @ 100 mls/hr DAILY IV 06/19/25 10:00 07/03/25 10:38 100 MLS/HR Diagnostic Test (Pha) 1 strip Q6HR 06/19/25 00:00 07/03/25 17:34 1 STRIP Insulin Human Regular FOLLOW SLIDING SCALE Q6HR SC 06/19/25 00:00 07/02/25 11:49 2 UNITS Dextrose 50 ml UD IV 06/18/25 22:00 Meropenem 50 ml @ 17 mls/hr DAILY@0100 IV 06/21/25 01:00 Cancel Meropenem 50 ml @ 17 mls/hr Q8H IV 06/27/25 18:00 07/03/25 17:35 17 MLS/HR Morphine Sulfate 1 mg Q4HP PRN IV 06/29/25 05:30 07/03/25 10:59 1 MG Sodium Chloride 10 ml QSHIFT@10,22 IV 06/29/25 22:00 07/03/25 10:38 10 ML Amino Acids 0 ml @ 0 mls/hr PER PHARMACY IV 07/03/25 12:45 Fat Emulsion Intravenous 50 ml/ Magnesium Sulfate 4 meq/ Multivitamins 10 ml/Chromium/ Copper/Manganese/ Zinc 1 ml/Amino Acids/Dextrose 762 ml @ 32 mls/hr [id number] IV 07/03/25 22:00 07/04/25 21:59 Amiodarone HCL/ Dextrose 200 ml @ 16.66 mls/ hr Q12H IV 07/03/25 19:00 Acetaminophen 1,000 mg Q8H PRN IV 07/03/25 17:30 objective GENERAL: Alert and oriented x 3. No acute distress. EYES: PERRL, EOMI. Anicteric. HENT: Moist mucous membranes. LUNGS: Decreased breath sounds. CARDIOVASCULAR: Regular rate and rhythm. ABDOMEN: Soft, nontender and nondistended. EXTREMITIES: No edema. NEUROLOGIC: No focal neurological deficits. SKIN: Warm, dry. laboratory and microbiology Laboratory Tests 07/03/25 03:00 Test 07/03/25 03:00 Range/Units Serum Glucose 118 H 74-106 mg/dL Problem List Chronic HFpEF, NYHA class IV. Paroxysmal atrial fibrillation, stage III, now NSR (on amiodarone/Elqiuis therapy). Severe aortic valve and mitral valve insufficiency. Acute hypoxic respiratory failure. Asthma. Chronic kidney disease. Thyroid disease. Prediabetes, newly diagnosed. Morbid obesity. History of tobacco use. Assessment/Plan Continued all current supportive medical care. IV Amiodarone. GI prophylactics. IV antibiotics as ordered. Morphine for pain management. Additional plan as per the hospital course. Critical care time of 45 minutes provided to include time spent evaluation of patient at bedside, when appropriate patient/family education for diagnosis, treatment plan, review of pertinent medical information and discussion of care with specialty providers and PCP. Dietary Evaluation Review Comments: 1) If patient remains NPO > 7 days, consider EN/TPN to meet at least 75% of estimated daily needs 2) If gut is preferred, consider Nepro @ 25 mL/hr goal rate as tolerated. Flush with 200 mL free H2O Q6H. TF regimen will provide 1080 kcals, 49g Pro, and 1236 mL free H2O per 24 hrs. TF regimen will meet ~ 92% estimated energy needs and 52% estimated protein needs. 3) Advance to 60g CCHO renal cardiac diet when medically feasible, pending ST approval 4) Refer to outpatient RD/CDCES for weight management 5) Follow-up with cardiology, pulmonology, or nephrology 6) Continue to monitor I&O, labs, and skin integrity Expected Outcomes/Goals: 1) patient to receive nutritional support within 7 days of NPO status 2) labs to improve 3) diet to advance 4) f/u in 2-3 days Plan discussed with: Patient Capillary Refill: < 3 seconds URBANO TRUONG MD Jul 03, 2025 18:17
--- NOTE | 2025-07-03 19:33 | DVHPN2 ---
Progress Note - Dictate Date Seen: Jul 03, 2025 Medical Necessity Reason Pt with a Central, PICC or Fol: Yes The following are medically ne: Central Line, Engel Catheter Subjective She had 100 ml of blood in ileostomy bag today. No rectal bleed this am per RN, but had some bleed this evening vital signs Vital Sign Date Time Temp Pulse Resp B/P (MAP) Pulse Ox O2 Delivery O2 Flow Rate FiO2 07/03/25 19:15 96 19 113/37 (62) 100 07/03/25 18:17 Nasal Cannula* 3 32 07/03/25 18:15 99.6 99.6 Total Intake and Output 07/02/25 07/02/25 07/03/25 15:00 23:00 07:00 Intake Total 585 ml 1352 ml 0 ml Output Total 1180 ml 470 ml Balance 585 ml 172 ml -470 ml medications Current Medications Medications Dose Ordered Sig/Bárbara Route Start Time Stop Time Status Last Admin Dose Admin Ondansetron HCl 4 mg Q4HP PRN IV 06/09/25 01:00 Cancel Ipratropium [place] 0.5 mg Q6HR NEB 06/14/25 10:15 07/03/25 18:17 0.5 MG Levalbuterol HCl 1.25 mg Q6HR NEB 06/15/25 00:00 07/03/25 18:17 1.25 MG Sodium Bicarbonate 75 ml/ Dextrose 1,075 ml @ 700 mls/hr Q1H33M IV 06/16/25 17:15 06/16/25 18:47 Cancel Pantoprazole Sodium 40 mg BID IV 06/17/25 10:00 07/03/25 10:38 40 MG Vancomycin HCl 0 ml @ 0 mls/hr UD IV 06/17/25 11:45 Bumetanide 1 mg BIDD IV 06/17/25 18:00 Cancel Micafungin Sodium 100 mg/Sodium Chloride 100 ml @ 100 mls/hr DAILY IV 06/19/25 10:00 07/03/25 10:38 100 MLS/HR Diagnostic Test (Pha) 1 strip Q6HR 06/19/25 00:00 07/03/25 17:34 1 STRIP Insulin Human Regular FOLLOW SLIDING SCALE Q6HR SC 06/19/25 00:00 07/02/25 11:49 2 UNITS Dextrose 50 ml UD IV 06/18/25 22:00 Meropenem 50 ml @ 17 mls/hr DAILY@0100 IV 06/21/25 01:00 Cancel Meropenem 50 ml @ 17 mls/hr Q8H IV 06/27/25 18:00 07/03/25 17:35 17 MLS/HR Morphine Sulfate 1 mg Q4HP PRN IV 06/29/25 05:30 07/03/25 10:59 1 MG Sodium Chloride 10 ml QSHIFT@10,22 IV 06/29/25 22:00 07/03/25 10:38 10 ML Amino Acids 0 ml @ 0 mls/hr PER PHARMACY IV 07/03/25 12:45 Fat Emulsion Intravenous 50 ml/ Magnesium Sulfate 4 meq/ Multivitamins 10 ml/Chromium/ Copper/Manganese/ Zinc 1 ml/Amino Acids/Dextrose 762 ml @ 32 mls/hr [id number] IV 07/03/25 22:00 07/04/25 21:59 Amiodarone HCL/ Dextrose 200 ml @ 16.66 mls/ hr Q12H IV 07/03/25 19:00 07/03/25 18:37 16.66 MLS/HR Acetaminophen 1,000 mg Q8H PRN IV 07/03/25 17:30 objective GE: in no acute distress CVS: irregular Lungs: not examined, pt on nebulizer treatment during my encounter Abdomen: soft, wound vac in place, small amount of blood in ileostomy bag laboratory and microbiology Laboratory Tests 07/03/25 17:30 07/03/25 03:00 Test 07/03/25 03:00 Range/Units Serum Glucose 118 H 74-106 mg/dL Assessment/Plan #Blood in ileostomy bag #Hematochezia #Anemia #Hypernatremia #Afib w RVR #Acute resp failure -Blood in ileostomy bag and rectal bleed likely due to ileocolic anastomic bleed -Pt in resp distress and sodium level high, Afib with RVR. High risk for GI intervention, in setting of recent surgery and current clinical status -Continue supportive care. Monitor Hb closely and keep >7 -Surgery team on board -Care plan discussed with RN bedside in detail -Will sign out to Dr Lyons of GI for f/u from tomorrow Thank you for allowing me to participate in the care of this pt Dietary Evaluation Review Comments: 1) If patient remains NPO > 7 days, consider EN/TPN to meet at least 75% of estimated daily needs 2) If gut is preferred, consider Nepro @ 25 mL/hr goal rate as tolerated. Flush with 200 mL free H2O Q6H. TF regimen will provide 1080 kcals, 49g Pro, and 1236 mL free H2O per 24 hrs. TF regimen will meet ~ 92% estimated energy needs and 52% estimated protein needs. 3) Advance to 60g CCHO renal cardiac diet when medically feasible, pending ST approval 4) Refer to outpatient RD/CDCES for weight management 5) Follow-up with cardiology, pulmonology, or nephrology 6) Continue to monitor I&O, labs, and skin integrity Expected Outcomes/Goals: 1) patient to receive nutritional support within 7 days of NPO status 2) labs to improve 3) diet to advance 4) f/u in 2-3 days Plan discussed with: Patient, Other Capillary Refill: < 3 seconds CAITIE HAJI MD Jul 03, 2025 19:33
[2025-07-03] MEDS: TPN PER PHARMACY IV NR (21:06)
[2025-07-03] MEDS: ACETAMINOPHEN IV 1000 MG/100ML (10MG/ML) IV PRN (23:55)
[2025-07-04] VITALS (103 sets, daily range): BP systolic 112–165; BP diastolic 27–77; PULSE 75–110; RESP 14–31; TEMP 98.6–100.5; O2SAT 92–100
[2025-07-04 04:46] LABS: Alkaline Phosphatase 114 U/L (46-116); Anion Gap 14 (5-15); BUN/Creatinine Ratio 46.0 (10.0-20.0); Carbon Dioxide 28 mmol/L (20-31); Magnesium 1.8 mg/dL (1.6-2.6); Potassium 3.5 mmol/L (3.5-5.1)
[2025-07-04 04:47] LABS: Bilirubin, Total 0.4 mg/dL (0.2-1.0)
[2025-07-04 04:57] LABS: Alanine Aminotransferase 68 U/L (7-40); Albumin 2.1 g/dL (3.2-4.8); Blood Urea Nitrogen 69 mg/dL (9-23); Calcium 8.6 mg/dL (8.7-10.4); Chloride 115 mmol/L (98-107); Glucose 136 mg/dL (74-106); Sodium 157 mmol/L (136-145); Total Protein 4.6 g/dL (5.7-8.2)
[2025-07-04 05:08] LABS: Hemoglobin 8.1 g/dL (12.2-16.2)
[2025-07-04 05:10] LABS: Hematocrit 24.9 % (36.0-46.0); Mean Corpuscular Hemoglobin 28.5 pg (28.0-32.0); Mean Corpuscular Volume 87.1 fL (80.0-100.0)
[2025-07-04 07:44] LABS: Total Cells Counted 100.0 (100)
--- NOTE | 2025-07-04 11:47 | DVHPN2 ---
Progress Note - Surgical Date Seen: Jul 04, 2025 Post op day Post op day: 17 Subjective Patient reports: Other (Patient complains today of suprapubic sharp pain, more awake today and more responsive, still having blood per ileostomy, has not required anymore transfusions since the 2 units on Saturday.) Review of Systems: Deferred Objective Vital signs Vital Sign Date Time Temp Pulse Resp B/P (MAP) Pulse Ox O2 Delivery O2 Flow Rate FiO2 07/04/25 08:26 93 19 151/63 07/04/25 07:04 100 Nasal Cannula* 3 32 07/04/25 04:00 98.6 98.6 Total Intake and Output 07/03/25 07/03/25 07/04/25 15:00 23:00 07:00 Intake Total 317.66 ml 481.29 ml 389.28 ml Output Total 795 ml 610 ml Balance 317.66 ml -313.71 ml -220.72 ml Medications Current Medications Medications Dose Ordered Sig/Bárbara Route Start Time Stop Time Status Last Admin Dose Admin Ondansetron HCl 4 mg Q4HP PRN IV 06/09/25 01:00 Cancel Ipratropium [place] 0.5 mg Q6HR NEB 06/14/25 10:15 07/04/25 07:03 0.5 MG Levalbuterol HCl 1.25 mg Q6HR NEB 06/15/25 00:00 07/04/25 07:03 1.25 MG Sodium Bicarbonate 75 ml/ Dextrose 1,075 ml @ 700 mls/hr Q1H33M IV 06/16/25 17:15 06/16/25 18:47 Cancel Pantoprazole Sodium 40 mg BID IV 06/17/25 10:00 07/04/25 10:38 40 MG Vancomycin HCl 0 ml @ 0 mls/hr UD IV 06/17/25 11:45 Bumetanide 1 mg BIDD IV 06/17/25 18:00 Cancel Micafungin Sodium 100 mg/Sodium Chloride 100 ml @ 100 mls/hr DAILY IV 06/19/25 10:00 07/04/25 10:38 100 MLS/HR Diagnostic Test (Pha) 1 strip Q6HR 06/19/25 00:00 07/04/25 05:23 1 STRIP Insulin Human Regular FOLLOW SLIDING SCALE Q6HR SC 06/19/25 00:00 07/04/25 05:25 2 UNITS Dextrose 50 ml UD IV 06/18/25 22:00 Meropenem 50 ml @ 17 mls/hr DAILY@0100 IV 06/21/25 01:00 Cancel Meropenem 50 ml @ 17 mls/hr Q8H IV 06/27/25 18:00 07/04/25 10:38 17 MLS/HR Morphine Sulfate 1 mg Q4HP PRN IV 06/29/25 05:30 07/04/25 08:26 1 MG Sodium Chloride 10 ml QSHIFT@10,22 IV 06/29/25 22:00 07/04/25 10:38 10 ML Amino Acids 0 ml @ 0 mls/hr PER PHARMACY IV 07/03/25 12:45 Fat Emulsion Intravenous 50 ml/ Magnesium Sulfate 4 meq/ Multivitamins 10 ml/Chromium/ Copper/Manganese/ Zinc 1 ml/Amino Acids/Dextrose 762 ml @ 32 mls/hr [id number] IV 07/03/25 22:00 07/04/25 21:59 07/03/25 21:06 32 MLS/HR Amiodarone HCL/ Dextrose 200 ml @ 16.66 mls/ hr Q12H IV 07/03/25 19:00 07/04/25 04:39 16.66 MLS/HR Acetaminophen 1,000 mg Q8H PRN IV 07/03/25 17:30 07/03/25 23:55 1,000 MG Laboratory Laboratory Tests 07/04/25 04:00 Test 07/04/25 04:00 Range/Units Serum Glucose 136 H 74-106 mg/dL Microbiology Date/Time Source Procedure Growth Status 06/17/25 07:00 Stool Stool Culture - Final Complete 06/17/25 07:00 Stool Shiga Toxin I & II - Final Complete 06/16/25 10:30 Blood Blood Culture - Final NO GROWTH AFTER 5 DAYS OF INCUBATION. Complete 06/11/25 14:25 Nose MRSA Screen - Final Complete Examination: GENERAL:Normal, ABDOMEN:Abnormal (Nondistended, midline wound with a wound VAC placed and no surrounding signs of infection, bilateral drains with very minimal serous output, ileostomy with pink mucosa/patent/bloody stool mixture, suprapubic tenderness, no rebound, no guarding) Labs and/or images reviewed: Labs reviewed by me (Leukocytosis at 16.2 from 15.2, hemoglobin 8.1 from 8.7) Problem List/Assessment/Plan Problems: (1) Megacolon (2) Pneumatosis intestinalis (3) GI bleed Assessment and Plan Mrs. Penaloza is a 54-year-old female who has been in the hospital since June 08 due to pneumonia and CHF exacerbation that resulted in intubation. I was consulted on 06/17 due to severe colonic distention and pneumatosis seen on CT from that day. She ended receiving a subtotal colectomy colectomy, with primary ileocolic anastomosis and protective loop ileostomy. Interval: Patient more early alert and more responsive today, states that she is having some sharp suprapubic pain, and on physical there is no rebound or guarding. Still having some blood per ostomy mixed with the stool, GI we will scope at this point. Patient is currently NPO. Has not required anymore blood transfusion since Saturday. Surgeries: 06/17: Exploratory laparotomy, subtotal colectomy (resection of ascending and transverse colon), temporary abdominal closure 06/19: Exploratory laparotomy, takedown of temporary abdominal dressing, wash out, resection of descending colon 06/20: Exploratory laparotomy, takedown of temporary abdominal dressing, washout, ileocolic anastomosis, protective loop ileostomy, drain placement x2, fascial closure 1. NPO, okay for ice chips 2. Continue with TPN, she was malnourished, and she has not eaten anything significant since extubation 3. Hold DVT prophylaxis 4. Wound VAC for midline wound 5. Drain stripping and emptying once per shift and p.r.n. 6. Recommend continuation of IV antibiotics for a total of 7 days from the last surgery on 06/20 7. Physical therapy consultation Plan discussed with Plan discussed with: Patient, Spouse Visit Coding Surgery Date of Service if different f: Jul 04, 2025 Billing Provider: SONAM ALCARAZ MD Surgery Visit Codes: [id number] INP/OBS CARE(HIGH) SONAM ALCARAZ MD Jul 04, 2025 11:47
[2025-07-04] MEDS: D5W 5% 1,000 ML IV SCH (15:05)
--- NOTE | 2025-07-04 15:41 | DVHPN2 ---
Assessment/Plan Assessment/Plan Progress note 54 F HFpEF, pafib, severe TR, severe MR, CKD3a, morbid obesity for SOB, s/p intubation 06/11 and extubated 06/26. seen today, brbpr, ostomy output dark. keep NPO. TPN, spiking fever. will get bcx physical exam somnolent, cooperative coarse breath sounds s1 s2 tachy irregular abdomen soft, woundvac in lace, ileostomi draining blood trace le edema labs ekg imaging reviewed assessment and plan acute hypoxic rf s/p mech vent extubated 06/26 acute on chronic diastolic HF pafib w/ RVR pulm edema severe aortic insufficiency COPD group E on home o2 PNA gp vs gn asthma? ischemic bowel and perforation s/p exlap and colectomy 06/17 s/p colectomy 06/19 loop ileostomy and drain 06/20 NYASIA VMN on CKD (s/p HD x1) anemia acute blood loss and chronic disase morbid obesity hypothyroidism severe protein calorie malnutrition HAGMA hypernatremia transaminitis NPO, TPN per surg ok to give ice chips GI consult pending c/w vanc justin trend h/h c/w o2 supp maintain o2 > 90 maintain map >65 d5w restart amio drip Lasix diurese to euvolemia bcx diet NPO TPN ice chips ok dvt ppx hold GIB gi ppx protonix condition critical prognosis poor full code crit care time 40 minutes Plan discussed with: Patient My Orders Orders - ASHWIN KUNZ MD Procedure Category Date Status Time Acetaminophen Iv PHA 07/03/25 In Process ([facility]) 17:30 Amino Acid PHA 07/04/25 In Process Infusion... 22:00 Comprehensive LAB 07/05/25 Verified Metabolic Panel 04:00 Magnesium LAB 07/05/25 Verified 04:00 Phosphorus LAB 07/05/25 Verified 04:00 Tpn Per Pharmacy DEANDRA 07/04/25 In Process 22:00 Complete Blood Count LAB 07/04/25 Logged 16:00 Basic Metabolic Panel LAB 07/04/25 Logged 16:00 Blood Culture EVELIO 07/04/25 In Process 13:50 D5w 5% (Dextrose 5%) PHA 07/04/25 In Process 14:00 Npo Except Ice Chips DEANDRA 07/04/25 In Process 13:50 Npo (Nothing By DIET 07/04/25 Transmitted Mouth) Diet Dinner Morphine Sulfate PHA 07/04/25 Verified Injection 15:45 Date of Service: Jul 04, 2025 Billing Provider: ASHWIN KUNZ MD Common Visit Codes: [id number] CARE 30-74 MIN ASHWIN UKNZ MD Jul 04, 2025 15:41
[2025-07-04] MEDS: MORPHINE SULFATE 4 MG/ML SYR/VIAL IV PRN (16:05)
[2025-07-04 16:10] LABS: Hematocrit 26.4 % (36.0-46.0); Hemoglobin 8.2 g/dL (12.2-16.2); Mean Corpuscular Hemoglobin 28.3 pg (28.0-32.0); Mean Corpuscular Volume 90.7 fL (80.0-100.0)
[2025-07-04 16:17] LABS: Anion Gap 11 (5-15); Calcium 8.8 mg/dL (8.7-10.4); Carbon Dioxide 27 mmol/L (20-31)
[2025-07-04 16:22] LABS: BUN/Creatinine Ratio 34.9 (10.0-20.0)
[2025-07-04 16:35] LABS: Chloride 115 mmol/L (98-107); Glucose 153 mg/dL (74-106); Potassium 3.4 mmol/L (3.5-5.1); Sodium 153 mmol/L (136-145)
[2025-07-04 16:36] LABS: Blood Urea Nitrogen 51 mg/dL (9-23)
[2025-07-04 17:04] LABS: Anisocytosis Moderate; Total Cells Counted 100.0 (100)
[2025-07-04] MEDS: TPN PER PHARMACY IV NR (21:47)
--- NOTE | 2025-07-04 21:47 | DVHPN2 ---
Progress Note - Dictate Date Seen: Jul 04, 2025 Medical Necessity Reason Pt with a Central, PICC or Fol: Yes The following are medically ne: Central Line, Engel Catheter Subjective Patient was seen and evaluated in follow up in the ICU. Patient is on 3 LPM NC. Patient complains of sharp suprapubic abdominal pain. Per RN, patient is having blood in her ileostomy. WBC 16.2, HGB 8.1, HCT 24.9, NA 157, BUN 69, [employer] 1.50. vital signs Vital Sign Date Time Temp Pulse Resp B/P (MAP) Pulse Ox O2 Delivery O2 Flow Rate FiO2 07/04/25 12:48 98 20 100 07/04/25 08:26 151/63 07/04/25 07:04 Nasal Cannula* 3 32 07/04/25 04:00 98.6 98.6 Total Intake and Output 07/03/25 07/03/25 07/04/25 15:00 23:00 07:00 Intake Total 317.66 ml 481.29 ml 389.28 ml Output Total 795 ml 610 ml Balance 317.66 ml -313.71 ml -220.72 ml medications Current Medications Medications Dose Ordered Sig/Bárbara Route Start Time Stop Time Status Last Admin Dose Admin Ondansetron HCl 4 mg Q4HP PRN IV 06/09/25 01:00 Cancel Ipratropium [place] 0.5 mg Q6HR NEB 06/14/25 10:15 07/04/25 12:41 0.5 MG Levalbuterol HCl 1.25 mg Q6HR NEB 06/15/25 00:00 07/04/25 12:41 1.25 MG Sodium Bicarbonate 75 ml/ Dextrose 1,075 ml @ 700 mls/hr Q1H33M IV 06/16/25 17:15 06/16/25 18:47 Cancel Pantoprazole Sodium 40 mg BID IV 06/17/25 10:00 07/04/25 10:38 40 MG Vancomycin HCl 0 ml @ 0 mls/hr UD IV 06/17/25 11:45 Bumetanide 1 mg BIDD IV 06/17/25 18:00 Cancel Micafungin Sodium 100 mg/Sodium Chloride 100 ml @ 100 mls/hr DAILY IV 06/19/25 10:00 07/04/25 10:38 100 MLS/HR Diagnostic Test (Pha) 1 strip Q6HR 06/19/25 00:00 07/04/25 05:23 1 STRIP Insulin Human Regular FOLLOW SLIDING SCALE Q6HR SC 06/19/25 00:00 07/04/25 05:25 2 UNITS Dextrose 50 ml UD IV 06/18/25 22:00 Meropenem 50 ml @ 17 mls/hr DAILY@0100 IV 06/21/25 01:00 Cancel Meropenem 50 ml @ 17 mls/hr Q8H IV 06/27/25 18:00 07/04/25 10:38 17 MLS/HR Morphine Sulfate 1 mg Q4HP PRN IV 06/29/25 05:30 07/04/25 08:26 1 MG Sodium Chloride 10 ml QSHIFT@10,22 IV 06/29/25 22:00 07/04/25 10:38 10 ML Amino Acids 0 ml @ 0 mls/hr PER PHARMACY IV 07/03/25 12:45 Fat Emulsion Intravenous 50 ml/ Magnesium Sulfate 4 meq/ Multivitamins 10 ml/Chromium/ Copper/Manganese/ Zinc 1 ml/Amino Acids/Dextrose 762 ml @ 32 mls/hr [id number] IV 07/03/25 22:00 07/04/25 21:59 07/03/25 21:06 32 MLS/HR Amiodarone HCL/ Dextrose 200 ml @ 16.66 mls/ hr Q12H IV 07/03/25 19:00 07/04/25 04:39 16.66 MLS/HR Acetaminophen 1,000 mg Q8H PRN IV 07/03/25 17:30 07/03/25 23:55 1,000 MG Potassium Acetate 20 meq/Magnesium Sulfate 8 meq/ Multivitamins 10 ml/Chromium/ Copper/Manganese/ Zinc 1 ml/Insulin Human Regular 4 units/Amino Acids/ Dextrose/Purified Water 1,223.04 ml @ 51 mls/hr [id number] IV 07/04/25 22:00 07/05/25 21:59 objective GENERAL: Alert and oriented x 3. No acute distress. EYES: PERRL, EOMI. Anicteric. HENT: Moist mucous membranes. LUNGS: Decreased breath sounds. CARDIOVASCULAR: Regular rate and rhythm. ABDOMEN: Soft, nontender and nondistended. EXTREMITIES: No edema. NEUROLOGIC: No focal neurological deficits. SKIN: Warm, dry. laboratory and microbiology Laboratory Tests 07/04/25 04:00 Test 07/04/25 04:00 Range/Units Serum Glucose 136 H 74-106 mg/dL Problem List Chronic HFpEF, NYHA class IV. Paroxysmal atrial fibrillation, stage III, now NSR (on amiodarone/Elqiuis therapy). Severe aortic valve and mitral valve insufficiency. Acute hypoxic respiratory failure. Asthma. Chronic kidney disease. Thyroid disease. Prediabetes, newly diagnosed. Morbid obesity. History of tobacco use. Assessment/Plan Continued all current supportive medical care. IV Amiodarone. GI prophylactics. IV antibiotics as ordered. Morphine for pain management. Additional plan as per the hospital course. Critical care time of 45 minutes provided to include time spent evaluation of patient at bedside, when appropriate patient/family education for diagnosis, treatment plan, review of pertinent medical information and discussion of care with specialty providers and PCP. Dietary Evaluation Review Comments: 1) If patient remains NPO > 7 days, consider EN/TPN to meet at least 75% of estimated daily needs 2) If gut is preferred, consider Nepro @ 25 mL/hr goal rate as tolerated. Flush with 200 mL free H2O Q6H. TF regimen will provide 1080 kcals, 49g Pro, and 1236 mL free H2O per 24 hrs. TF regimen will meet ~ 92% estimated energy needs and 52% estimated protein needs. 3) Advance to 60g CCHO renal cardiac diet when medically feasible, pending ST approval 4) Refer to outpatient RD/CDCES for weight management 5) Follow-up with cardiology, pulmonology, or nephrology 6) Continue to monitor I&O, labs, and skin integrity Expected Outcomes/Goals: 1) patient to receive nutritional support within 7 days of NPO status 2) labs to improve 3) diet to advance 4) f/u in 2-3 days Plan discussed with: Patient Capillary Refill: < 3 seconds URBANO TRUONG MD Jul 04, 2025 13:19
--- NOTE | 2025-07-04 23:06 | DVHPN2 ---
Subjective DOS: 07/03/2025 Patient seen and examined at bedside. On supplemental oxygen Overnight events reviewed. Reviewed: Care Plan, H&P, Labs, Medications, Previous Orders, Radiology Changes from previous H/P or p: No Changes General: Per HPI Objective Vitals Vital Signs Date Time Temp Pulse Resp B/P (MAP) Pulse Ox O2 Delivery O2 Flow Rate FiO2 07/04/25 21:43 96 16 145/43 07/04/25 20:15 94 07/04/25 20:00 Nasal Cannula* 2 07/04/25 19:00 100.5 100.5 Intake/Output Intake and Output 07/04/25 07:00 Intake Total 1188.23 ml Output Total 1405 ml Balance -216.77 ml Intake Oral 0 ml IV Total 1188.23 ml Tube Feeding 0 ml Output Urine Total 1175 ml Stool Total 175 ml Drainage Total 55 ml General Appearance: Alert, No acute distress HEENT: Atraumatic, PERRLA Neck: Supple Lungs: Clear to auscultation, Other (Decreased air entry bilaterally) Cardiovascular: Regular rate, Normal S1, Normal S2, No murmurs, Gallops, Rubs Abdomen: Normal bowel sounds, Soft, No tenderness, Other (Abdominal dressing dry and intact) Musculoskeletal: Normal sensory function, Normal motor function Neuro: Strength at 5/5 X4 ext, Cranial nerves 3-12 NL Skin: Dry, Intact Psych/Mental Status: Mental status NL, Mood NL Medications Current Medications Medications Dose Ordered Sig/Bárbara Route Start Time Stop Time Status Last Admin Dose Admin Ondansetron HCl 4 mg Q4HP PRN IV 06/09/25 01:00 Cancel Ipratropium [place] 0.5 mg Q6HR NEB 06/14/25 10:15 07/04/25 18:23 0.5 MG Levalbuterol HCl 1.25 mg Q6HR NEB 06/15/25 00:00 07/04/25 18:23 1.25 MG Sodium Bicarbonate 75 ml/ Dextrose 1,075 ml @ 700 mls/hr Q1H33M IV 06/16/25 17:15 06/16/25 18:47 Cancel Pantoprazole Sodium 40 mg BID IV 06/17/25 10:00 07/04/25 21:42 40 MG Bumetanide 1 mg BIDD IV 06/17/25 18:00 Cancel Micafungin Sodium 100 mg/Sodium Chloride 100 ml @ 100 mls/hr DAILY IV 06/19/25 10:00 07/04/25 10:38 100 MLS/HR Diagnostic Test (Pha) 1 strip Q6HR 06/19/25 00:00 07/04/25 17:47 1 STRIP Insulin Human Regular FOLLOW SLIDING SCALE Q6HR SC 06/19/25 00:00 07/04/25 18:00 2 UNITS Dextrose 50 ml UD IV 06/18/25 22:00 Meropenem 50 ml @ 17 mls/hr DAILY@0100 IV 06/21/25 01:00 Cancel Meropenem 50 ml @ 17 mls/hr Q8H IV 06/27/25 18:00 07/04/25 17:44 17 MLS/HR Sodium Chloride 10 ml QSHIFT@10,22 IV 06/29/25 22:00 07/04/25 21:44 10 ML Amino Acids 0 ml @ 0 mls/hr PER PHARMACY IV 07/03/25 12:45 Amiodarone HCL/ Dextrose 200 ml @ 16.66 mls/ hr Q12H IV 07/03/25 19:00 07/04/25 17:46 16.66 MLS/HR Acetaminophen 1,000 mg Q8H PRN IV 07/03/25 17:30 07/04/25 20:03 1,000 MG Potassium Acetate 20 meq/Magnesium Sulfate 8 meq/ Multivitamins 10 ml/Chromium/ Copper/Manganese/ Zinc 1 ml/Insulin Human Regular 4 units/Amino Acids/ Dextrose/Purified Water 1,223.04 ml @ 51 mls/hr [id number] IV 07/04/25 22:00 07/05/25 21:59 07/04/25 21:47 51 MLS/HR Dextrose 1,000 ml @ 150 mls/hr Q6H40M IV 07/04/25 14:00 07/04/25 21:42 150 MLS/HR Morphine Sulfate 4 mg Q6HPRN PRN IV 07/04/25 15:45 07/04/25 21:43 4 MG Laboratory Results Laboratory Tests 07/04/25 15:46 Chemistry Test 07/04/25 04:00 07/04/25 15:46 Albumin 2.1 g/dL (3.2-4.8) L Calcium Level 8.6 mg/dL (8.7-10.4) L 8.8 mg/dL (8.7-10.4) Magnesium Level 1.8 mg/dL (1.6-2.6) Phosphorus Level 5.8 mg/dL (2.4-5.1) H Total Protein 4.6 g/dL (5.7-8.2) L Lipid panel Test 07/04/25 04:00 Triglycerides Level 225 mg/dL (< 150) H LFT Test 07/04/25 04:00 Alanine Aminotransferase (ALT) 68 U/L (7-40) H Alkaline Phosphatase 114 U/L (46-116) Aspartate Amino Transferase (AST) 36 U/L (13-40) Total Bilirubin 0.4 mg/dL (0.2-1.0) Urinalysis Test 06/14/25 11:50 07/03/25 12:27 Urine Creatinine 27.77 mg/dL (30.0-125.0) L Urine Protein/Creatinine Ratio 1.72 Urine Sodium 73 mmol/L (40-220) Urine Total Protein 47.7 mg/dL (1-14) H Urine Color Yellow (Yellow) Urine Clarity Clear (Clear) Urine pH 5.5 (5.0-9.0) Urine Specific [place] 1.018 (1.001-1.035) Urine Protein 1+ (Negative) H Urine Ketones Negative (Negative) Urine Blood Trace /uL (Negative) H Urine Nitrite Negative (Negative) Urine Bilirubin Negative (Negative) Urine Urobilinogen 2 mg/dL (Negative) H Urine Leukocyte Esterase Negative /uL (Negative) Urine RBC 1 /hpf (0 - 4) Urine Microscopic WBC 1 /HPF (0-5) Urine Squamous Epithelial Cells Few /hpf (<5) Urine Bacteria None seen /hpf (None Seen) Urine Glucose Normal mg/dL (Normal) Microbiology Microbiology Date/Time Source Procedure Growth Status 06/17/25 07:00 Stool Stool Culture - Final Complete 06/17/25 07:00 Stool Shiga Toxin I & II - Final Complete 06/16/25 10:30 Blood Blood Culture - Final NO GROWTH AFTER 5 DAYS OF INCUBATION. Complete 06/11/25 14:25 Nose MRSA Screen - Final Complete Assessment/Plan Assessment/Plan Impression: Acute hypoxic respiratory failure Dependence on supplemental oxygen Status post bowel resection secondary to ischemic bowel Obesity with a BMI of 35.9 Atrial fibrillation with RVR Acute kidney injury secondary to vasomotor nephropathy Sepsis Anemia Events: Currently on supplemental oxygen at 3 LPM NC Taper O2 as tolerated Continue antibiotics Monitor WBC - 15.2 K. On IV fluids with D5W at 150 ml/hr. Amiodarone drip for atrial fibrillation GI recs appreciated Surgery recs appreciated TPN for nutritional support Monitor hemoglobin Transfuse if less than 7.0 g/dL. Monitor renal function Monitor electrolytes. Supplement as necessary. Monitor sodium Labs and imaging reviewed. Rest of plan as noted below. Plan: S/p extubation on 06/26/25 Supplemental oxygen Titrate O2 to keep O2 saturation above 92%. Continue bronchodilators. Amiodarone drip. Continue antibiotics and antifungals. F/u cultures. Blood cultures: No growth 5 days. Monitor hgb. Supplement as necessary On Protonix BID Pain control Avoid oversedation Monitor renal function due to acute kidney injury. Monitor electrolytes. Supplement as necessary. Maintain euvolemia. Nutritional support. On TPN Accucheks, ISS. GI/DVT prophylaxis. Condition: Critical Prognosis: Poor given multiple comorbidities. Rest of plan per hospitalist and other consultants. A total of 35 minutes of critical care time was spent reviewing the patient record, examining the patient, making a diagnostic and therapeutic plan, discussing this plan with the medical personnel, following up on diagnostic studies and following the patient for clinical stability excluding any and all procedures. At least 50% of this time was spent in direct, [id number] contact. Thank you for allowing me to participate in this patient's care. Further recommendations will depend on patient's clinical course. Please do not hesitate to contact me if you have any questions or concerns. This medical document was created using an electronic medical record system with [facility] system. Although this document has been carefully reviewed, there may still be some phonetic and typographical errors. These areas are purely typographical due to imperfections of the software programs, and do not reflect any compromise in the patient's medical care. Plan discussed with: Other (RN) Date of Service: Jul 03, 2025 Billing Provider: LORENA SOLARES MD Common Visit Codes: [id number] INP/OBS CARE(HIGH), [id number] CARE 30-74 MIN LORENA SOLARES MD Jul 04, 2025 23:06
--- NOTE | 2025-07-04 23:47 | DVHPN2 ---
Subjective DOS: 07/04/2025 Patient seen and examined at bedside. On supplemental oxygen Overnight events reviewed. Reviewed: Care Plan, H&P, Labs, Medications, Previous Orders, Radiology Changes from previous H/P or p: No Changes General: Per HPI Objective Vitals Vital Signs Date Time Temp Pulse Resp B/P (MAP) Pulse Ox O2 Delivery O2 Flow Rate FiO2 07/04/25 23:15 96 18 122/50 07/04/25 23:00 97 07/04/25 22:00 98.6 98.6 07/04/25 22:00 Nasal Cannula* 2 28 Intake/Output Intake and Output 07/04/25 07:00 Intake Total 1188.23 ml Output Total 1405 ml Balance -216.77 ml Intake Oral 0 ml IV Total 1188.23 ml Tube Feeding 0 ml Output Urine Total 1175 ml Stool Total 175 ml Drainage Total 55 ml General Appearance: Alert, No acute distress HEENT: Atraumatic, PERRLA Neck: Supple Lungs: Clear to auscultation, Other (Decreased air entry bilaterally) Cardiovascular: Regular rate, Normal S1, Normal S2, No murmurs, Gallops, Rubs Abdomen: Normal bowel sounds, Soft, No tenderness, Other (Abdominal dressing dry and intact) Musculoskeletal: Normal sensory function, Normal motor function Neuro: Strength at 5/5 X4 ext, Cranial nerves 3-12 NL Skin: Dry, Intact Psych/Mental Status: Mental status NL, Mood NL Medications Current Medications Medications Dose Ordered Sig/Bárbara Route Start Time Stop Time Status Last Admin Dose Admin Ondansetron HCl 4 mg Q4HP PRN IV 06/09/25 01:00 Cancel Ipratropium [place] 0.5 mg Q6HR NEB 06/14/25 10:15 07/04/25 18:23 0.5 MG Levalbuterol HCl 1.25 mg Q6HR NEB 06/15/25 00:00 07/04/25 18:23 1.25 MG Sodium Bicarbonate 75 ml/ Dextrose 1,075 ml @ 700 mls/hr Q1H33M IV 06/16/25 17:15 06/16/25 18:47 Cancel Pantoprazole Sodium 40 mg BID IV 06/17/25 10:00 07/04/25 21:42 40 MG Bumetanide 1 mg BIDD IV 06/17/25 18:00 Cancel Micafungin Sodium 100 mg/Sodium Chloride 100 ml @ 100 mls/hr DAILY IV 06/19/25 10:00 07/04/25 10:38 100 MLS/HR Diagnostic Test (Pha) 1 strip Q6HR 06/19/25 00:00 07/04/25 17:47 1 STRIP Insulin Human Regular FOLLOW SLIDING SCALE Q6HR SC 06/19/25 00:00 07/04/25 18:00 2 UNITS Dextrose 50 ml UD IV 06/18/25 22:00 Meropenem 50 ml @ 17 mls/hr DAILY@0100 IV 06/21/25 01:00 Cancel Meropenem 50 ml @ 17 mls/hr Q8H IV 06/27/25 18:00 07/04/25 17:44 17 MLS/HR Sodium Chloride 10 ml QSHIFT@10,22 IV 06/29/25 22:00 07/04/25 21:44 10 ML Amino Acids 0 ml @ 0 mls/hr PER PHARMACY IV 07/03/25 12:45 Amiodarone HCL/ Dextrose 200 ml @ 16.66 mls/ hr Q12H IV 07/03/25 19:00 07/04/25 17:46 16.66 MLS/HR Acetaminophen 1,000 mg Q8H PRN IV 07/03/25 17:30 07/04/25 20:03 1,000 MG Potassium Acetate 20 meq/Magnesium Sulfate 8 meq/ Multivitamins 10 ml/Chromium/ Copper/Manganese/ Zinc 1 ml/Insulin Human Regular 4 units/Amino Acids/ Dextrose/Purified Water 1,223.04 ml @ 51 mls/hr [id number] IV 07/04/25 22:00 07/05/25 21:59 07/04/25 21:47 51 MLS/HR Dextrose 1,000 ml @ 150 mls/hr Q6H40M IV 07/04/25 14:00 07/04/25 21:42 150 MLS/HR Morphine Sulfate 4 mg Q6HPRN PRN IV 07/04/25 15:45 07/04/25 21:43 4 MG Laboratory Results Laboratory Tests 07/04/25 15:46 Chemistry Test 07/04/25 04:00 07/04/25 15:46 Albumin 2.1 g/dL (3.2-4.8) L Calcium Level 8.6 mg/dL (8.7-10.4) L 8.8 mg/dL (8.7-10.4) Magnesium Level 1.8 mg/dL (1.6-2.6) Phosphorus Level 5.8 mg/dL (2.4-5.1) H Total Protein 4.6 g/dL (5.7-8.2) L Lipid panel Test 07/04/25 04:00 Triglycerides Level 225 mg/dL (< 150) H LFT Test 07/04/25 04:00 Alanine Aminotransferase (ALT) 68 U/L (7-40) H Alkaline Phosphatase 114 U/L (46-116) Aspartate Amino Transferase (AST) 36 U/L (13-40) Total Bilirubin 0.4 mg/dL (0.2-1.0) Urinalysis Test 06/14/25 11:50 07/03/25 12:27 Urine Creatinine 27.77 mg/dL (30.0-125.0) L Urine Protein/Creatinine Ratio 1.72 Urine Sodium 73 mmol/L (40-220) Urine Total Protein 47.7 mg/dL (1-14) H Urine Color Yellow (Yellow) Urine Clarity Clear (Clear) Urine pH 5.5 (5.0-9.0) Urine Specific [place] 1.018 (1.001-1.035) Urine Protein 1+ (Negative) H Urine Ketones Negative (Negative) Urine Blood Trace /uL (Negative) H Urine Nitrite Negative (Negative) Urine Bilirubin Negative (Negative) Urine Urobilinogen 2 mg/dL (Negative) H Urine Leukocyte Esterase Negative /uL (Negative) Urine RBC 1 /hpf (0 - 4) Urine Microscopic WBC 1 /HPF (0-5) Urine Squamous Epithelial Cells Few /hpf (<5) Urine Bacteria None seen /hpf (None Seen) Urine Glucose Normal mg/dL (Normal) Microbiology Microbiology Date/Time Source Procedure Growth Status 06/17/25 07:00 Stool Stool Culture - Final Complete 06/17/25 07:00 Stool Shiga Toxin I & II - Final Complete 06/16/25 10:30 Blood Blood Culture - Final NO GROWTH AFTER 5 DAYS OF INCUBATION. Complete 06/11/25 14:25 Nose MRSA Screen - Final Complete Assessment/Plan Assessment/Plan Impression: Acute hypoxic respiratory failure Dependence on supplemental oxygen Status post bowel resection secondary to ischemic bowel Obesity with a BMI of 35.9 Atrial fibrillation with RVR Acute kidney injury secondary to vasomotor nephropathy Sepsis Anemia Events: Remains on supplemental oxygen at 3 LPM NC Taper O2 as tolerated Continue antibiotics Monitor WBC. On IV fluids with D5W at 150 ml/hr. Amiodarone drip for atrial fibrillation NGT in place GI recs appreciated Surgery recs appreciated TPN for nutritional support Monitor hemoglobin Transfuse if less than 7.0 g/dL. S/p PRBC transfusion on 07/02/25. Monitor renal function Monitor electrolytes. Supplement as necessary. Monitor sodium d/t hypernatremia Labs and imaging reviewed. Rest of plan as noted below. Plan: S/p extubation on 06/26/25 Supplemental oxygen Titrate O2 to keep O2 saturation above 92%. Continue bronchodilators. Amiodarone drip. Continue antibiotics and antifungals. F/u cultures. Blood cultures: No growth 5 days. Monitor hgb. Supplement as necessary On Protonix BID Pain control Avoid oversedation Monitor renal function due to acute kidney injury. Monitor electrolytes. Supplement as necessary. Maintain euvolemia. Nutritional support. On TPN Accucheks, ISS. GI/DVT prophylaxis. Condition: Critical Prognosis: Poor given multiple comorbidities. Rest of plan per hospitalist and other consultants. A total of 35 minutes of critical care time was spent reviewing the patient record, examining the patient, making a diagnostic and therapeutic plan, discussing this plan with the medical personnel, following up on diagnostic studies and following the patient for clinical stability excluding any and all procedures. At least 50% of this time was spent in direct, [id number] contact. Thank you for allowing me to participate in this patient's care. Further recommendations will depend on patient's clinical course. Please do not hesitate to contact me if you have any questions or concerns. This medical document was created using an electronic medical record system with [employer] dictation system. Although this document has been carefully reviewed, there may still be some phonetic and typographical errors. These areas are purely typographical due to imperfections of the software programs, and do not reflect any compromise in the patient's medical care. Plan discussed with: Patient, Other (NANCY Rand) Date of Service: Jul 04, 2025 Billing Provider: LORENA SOLARES MD Common Visit Codes: [id number] INP/OBS CARE(HIGH), [id number] CARE 30-74 MIN LORENA SOLARES MD Jul 04, 2025 23:47
[2025-07-05] VITALS (107 sets, daily range): BP systolic 93–165; BP diastolic 35–101; PULSE 62–102; RESP 15–38; TEMP 98–98.8; O2SAT 82–99
[2025-07-05 04:56] LABS: Alkaline Phosphatase 101 U/L (46-116); Anion Gap 11 (5-15); BUN/Creatinine Ratio 45.4 (10.0-20.0); Carbon Dioxide 27 mmol/L (20-31)
[2025-07-05 04:57] LABS: Alanine Aminotransferase 45 U/L (7-40); Albumin 2.0 g/dL (3.2-4.8); Bilirubin, Total 0.3 mg/dL (0.2-1.0); Blood Urea Nitrogen 59 mg/dL (9-23); Calcium 7.9 mg/dL (8.7-10.4); Chloride 109 mmol/L (98-107); Glucose 122 mg/dL (74-106); Magnesium 1.5 mg/dL (1.6-2.6); Potassium 3.0 mmol/L (3.5-5.1); Sodium 147 mmol/L (136-145); Total Protein 4.3 g/dL (5.7-8.2)
[2025-07-05 05:36] LABS: Hematocrit 21.8 % (36.0-46.0); Hemoglobin 7.2 g/dL (12.2-16.2)
[2025-07-05 05:38] LABS: Mean Corpuscular Hemoglobin 28.8 pg (28.0-32.0); Mean Corpuscular Volume 87.6 fL (80.0-100.0)
[2025-07-05] MEDS: MAGNESIUM SULFATE 1GM/100ML 100 ML IV SCH ×2 (06:19→11:00)
[2025-07-05] MEDS: POTASSIUM CHL 20MEQ/100ML 100 ML IV SCH ×2 (06:19→16:45)
[2025-07-05 06:39] LABS: Anisocytosis Slight; Total Cells Counted 100.0 (100)
--- NOTE | 2025-07-05 09:49 | DVH ---
CHEST RADIOGRAPH Indication: Pneumonia Technique: Single frontal view of the chest was obtained COMPARISON: XY CHEST XRAY 1 VIEW on DOS: 07/03/25, XY CHEST XRAY 1 VIEW on DOS: 07/01/25, XY CHEST PORT ABLE on DOS: 06/30/25, XY CHEST XRAY 1 VIEW on DOS: 06/30/25, XY CHEST PORTABLE on DOS: 06/29/25 FINDINGS: Lines and Tubes: Right PICC and enteric catheter in satisfactory position. Lungs: Unchanged pulmonary vascular congestion. Pleura: No effusion.No pneumothorax. Cardiomediastinal contours: Unremarkable Bones: Unremarkable IMPRESSION: Unchanged pulmonary vascular congestion.
--- NOTE | 2025-07-05 10:07 | DVHPN2 ---
Progress Note - Surgical Date Seen: Jul 05, 2025 Post op day Post op day: 18 Subjective Patient reports: Feels better (Feeling well, no abdominal pain complaints, low- grade fevers, rest of the vitals are stable) Review of Systems: Deferred Objective Vital signs Vital Sign Date Time Temp Pulse Resp B/P (MAP) Pulse Ox O2 Delivery O2 Flow Rate FiO2 07/05/25 08:00 92 07/05/25 06:45 20 109/50 (69) 94 07/05/25 06:06 Nasal Cannula 4.0 07/05/25 06:06 36 07/05/25 04:00 98.8 98.8 Total Intake and Output 07/04/25 07/04/25 07/05/25 15:00 23:00 07:00 Intake Total 540.28 ml 1678.28 ml 1573.62 ml Output Total 820 ml 565 ml Balance 540.28 ml 858.28 ml 1008.62 ml Medications Current Medications Medications Dose Ordered Sig/Bárbara Route Start Time Stop Time Status Last Admin Dose Admin Ondansetron HCl 4 mg Q4HP PRN IV 06/09/25 01:00 Cancel Ipratropium [place] 0.5 mg Q6HR NEB 06/14/25 10:15 07/05/25 06:04 0.5 MG Levalbuterol HCl 1.25 mg Q6HR NEB 06/15/25 00:00 07/05/25 06:04 1.25 MG Sodium Bicarbonate 75 ml/ Dextrose 1,075 ml @ 700 mls/hr Q1H33M IV 06/16/25 17:15 06/16/25 18:47 Cancel Pantoprazole Sodium 40 mg BID IV 06/17/25 10:00 07/04/25 21:42 40 MG Bumetanide 1 mg BIDD IV 06/17/25 18:00 Cancel Micafungin Sodium 100 mg/Sodium Chloride 100 ml @ 100 mls/hr DAILY IV 06/19/25 10:00 07/04/25 10:38 100 MLS/HR Diagnostic Test (Pha) 1 strip Q6HR 06/19/25 00:00 07/05/25 06:03 1 STRIP Insulin Human Regular FOLLOW SLIDING SCALE Q6HR SC 06/19/25 00:00 07/05/25 06:03 2 UNITS Dextrose 50 ml UD IV 06/18/25 22:00 Meropenem 50 ml @ 17 mls/hr DAILY@0100 IV 06/21/25 01:00 Cancel Meropenem 50 ml @ 17 mls/hr Q8H IV 06/27/25 18:00 07/05/25 02:18 17 MLS/HR Sodium Chloride 10 ml QSHIFT@10,22 IV 06/29/25 22:00 07/04/25 21:44 10 ML Amino Acids 0 ml @ 0 mls/hr PER PHARMACY IV 07/03/25 12:45 Amiodarone HCL/ Dextrose 200 ml @ 16.66 mls/ hr Q12H IV 07/03/25 19:00 07/05/25 04:21 16.66 MLS/HR Acetaminophen 1,000 mg Q8H PRN IV 07/03/25 17:30 07/04/25 20:03 1,000 MG Potassium Acetate 20 meq/Magnesium Sulfate 8 meq/ Multivitamins 10 ml/Chromium/ Copper/Manganese/ Zinc 1 ml/Insulin Human Regular 4 units/Amino Acids/ Dextrose/Purified Water 1,223.04 ml @ 51 mls/hr [id number] IV 07/04/25 22:00 07/05/25 21:59 07/04/25 21:47 51 MLS/HR Dextrose 1,000 ml @ 150 mls/hr Q6H40M IV 07/04/25 14:00 07/05/25 04:21 150 MLS/HR Morphine Sulfate 4 mg Q6HPRN PRN IV 07/04/25 15:45 07/04/25 21:43 4 MG Potassium Chloride 100 ml @ 50 mls/hr Q2H IV 07/05/25 06:15 07/05/25 10:14 07/05/25 08:31 50 MLS/HR Magnesium Sulfate/ Dextrose 100 ml @ 100 mls/hr Q1HR IV 07/05/25 10:00 07/05/25 11:59 Laboratory Laboratory Tests 07/05/25 05:00 07/05/25 03:51 Test 07/05/25 03:51 Range/Units Serum Glucose 122 H 74-106 mg/dL Microbiology Date/Time Source Procedure Growth Status 06/17/25 07:00 Stool Stool Culture - Final Complete 06/17/25 07:00 Stool Shiga Toxin I & II - Final Complete 06/16/25 10:30 Blood Blood Culture - Final NO GROWTH AFTER 5 DAYS OF INCUBATION. Complete 06/11/25 14:25 Nose MRSA Screen - Final Complete Examination: GENERAL:Normal (Very awake, alert/awake/oriented x3), ABDOMEN:Normal (Nondistended, midline wound with a wound VAC placed and without surrounding signs of infection, right lower quadrant ileostomy with stool/blood mixture, mucosa pink, ostomy patent, drains with very minimal serous output (removed today), left upper quadrant mild tenderness, no rebound, no guarding) Labs and/or images reviewed: Labs reviewed by me (White count holding at 15) Problem List/Assessment/Plan Problems: (1) Megacolon (2) Pneumatosis intestinalis (3) GI bleed Assessment and Plan Mrs. Penaloza is a 54-year-old female who has been in the hospital since June 08 due to pneumonia and CHF exacerbation that resulted in intubation. I was consulted on 06/17 due to severe colonic distention and pneumatosis seen on CT from that day. She ended receiving a subtotal colectomy colectomy, with primary ileocolic anastomosis and protective loop ileostomy. Interval: Patient is very awake today, no abdominal pain complaints. Leukocytosis holding steady at 15, some low-grade fevers reported by nursing, still having some bloody stool per ostomy with a hemoglobin drop to 7.2 from 8.2. Drains with very minimal serous output, they were removed today. GI on holding pattern for scoping, no plans for this as of yet. Primary team we will obtain a CT abdomen and pelvis with IV contrast. Surgeries: 06/17: Exploratory laparotomy, subtotal colectomy (resection of ascending and transverse colon), temporary abdominal closure 06/19: Exploratory laparotomy, takedown of temporary abdominal dressing, wash out, resection of descending colon 06/20: Exploratory laparotomy, takedown of temporary abdominal dressing, washout, ileocolic anastomosis, protective loop ileostomy, drain placement x2, fascial closure 1. NPO, okay for ice chips 2. CT abdomen and pelvis with IV contrast 3. Continue with TPN, she was malnourished, and she has not eaten anything significant since extubation 4. Hold DVT prophylaxis 5. Wound VAC for midline wound 6. Drains removed today (07/05) 6. Recommend continuation of IV antibiotics for a total of 7 days from the last surgery on 06/20 7. Physical therapy consultation Plan discussed with Plan discussed with: Patient Visit Coding Surgery Date of Service if different f: Jul 05, 2025 Billing Provider: SONAM ALCARAZ MD Surgery Visit Codes: [id number] INP/OBS CARE(HIGH) SONAM ALCARAZ MD Jul 05, 2025 10:07
[2025-07-05] MEDS ORDERED: POTASSIUM CHL 20MEQ/100ML 100 ML IV SCH (10:15)
[2025-07-05] MEDS: FUROSEMIDE 20 MG/2 ML VIAL IV ONE (10:30)
--- NOTE | 2025-07-05 13:21 | DVHPN2 ---
Progress Note Date Seen: Jul 05, 2025 Resident Creating Document: KAMILA MUNOZ RESIDENT Medical Necessity Reason Pt with a Central, PICC or Fol: Yes The following are medically ne: Central Line, Engel Catheter Subjective Review of Systems Patient seen and examined at bedside Denies any nausea or vomiting S/p JAMES drain removal Minimal colostomy output, greenish black in color, overnight 45 cc colostomy output Overnight T-max 100.5 Objective vital signs Vital Sign Date Time Temp Pulse Resp B/P (MAP) Pulse Ox O2 Delivery O2 Flow Rate FiO2 07/05/25 13:00 94 23 117/54 (75) 96 07/05/25 12:15 Nasal Cannula* 4 36 07/05/25 12:00 98.8 98.8 Total Intake and Output 07/04/25 07/04/25 07/05/25 15:00 23:00 07:00 Intake Total 540.28 ml 1678.28 ml 1791.28 ml Output Total 820 ml 565 ml Balance 540.28 ml 858.28 ml 1226.28 ml medications Current Medications Medications Dose Ordered Sig/Bárbara Route Start Time Stop Time Status Last Admin Dose Admin Ondansetron HCl 4 mg Q4HP PRN IV 06/09/25 01:00 Cancel Ipratropium [place] 0.5 mg Q6HR NEB 06/14/25 10:15 07/05/25 12:12 0.5 MG Levalbuterol HCl 1.25 mg Q6HR NEB 06/15/25 00:00 07/05/25 12:12 1.25 MG Sodium Bicarbonate 75 ml/ Dextrose 1,075 ml @ 700 mls/hr Q1H33M IV 06/16/25 17:15 06/16/25 18:47 Cancel Pantoprazole Sodium 40 mg BID IV 06/17/25 10:00 07/05/25 11:11 40 MG Bumetanide 1 mg BIDD IV 06/17/25 18:00 Cancel Micafungin Sodium 100 mg/Sodium Chloride 100 ml @ 100 mls/hr DAILY IV 06/19/25 10:00 07/05/25 11:12 100 MLS/HR Diagnostic Test (Pha) 1 strip Q6HR 06/19/25 00:00 07/05/25 11:21 1 STRIP Insulin Human Regular FOLLOW SLIDING SCALE Q6HR SC 06/19/25 00:00 07/05/25 11:30 2 UNITS Dextrose 50 ml UD IV 06/18/25 22:00 Meropenem 50 ml @ 17 mls/hr DAILY@0100 IV 06/21/25 01:00 Cancel Meropenem 50 ml @ 17 mls/hr Q8H IV 06/27/25 18:00 07/05/25 11:12 17 MLS/HR Sodium Chloride 10 ml QSHIFT@10,22 IV 06/29/25 22:00 07/05/25 11:12 10 ML Amino Acids 0 ml @ 0 mls/hr PER PHARMACY IV 07/03/25 12:45 Amiodarone HCL/ Dextrose 200 ml @ 16.66 mls/ hr Q12H IV 07/03/25 19:00 07/05/25 04:21 16.66 MLS/HR Acetaminophen 1,000 mg Q8H PRN IV 07/03/25 17:30 07/04/25 20:03 1,000 MG Potassium Acetate 20 meq/Magnesium Sulfate 8 meq/ Multivitamins 10 ml/Chromium/ Copper/Manganese/ Zinc 1 ml/Insulin Human Regular 4 units/Amino Acids/ Dextrose/Purified Water 1,223.04 ml @ 51 mls/hr [id number] IV 07/04/25 22:00 07/05/25 21:59 07/04/25 21:47 51 MLS/HR Dextrose 1,000 ml @ 150 mls/hr Q6H40M IV 07/04/25 14:00 07/05/25 10:00 150 MLS/HR Morphine Sulfate 4 mg Q6HPRN PRN IV 07/04/25 15:45 07/04/25 21:43 4 MG Potassium Acetate 60 meq/Magnesium Sulfate 20 meq/ Multivitamins 10 ml/Chromium/ Copper/Manganese/ Zinc 1 ml/Amino Acids/Dextrose 946 ml @ 40 mls/hr [id number] IV 07/05/25 22:00 07/06/25 21:59 Potassium Chloride 100 ml @ 50 mls/hr Q2H IV 07/05/25 10:15 Hold Furosemide 20 mg DAILY IV 07/06/25 10:00 Examination General Appearance: Cooperative. Well developed. Well nourished. NAD Pulmonary/Respiratory: Equal bilateral air entry Cardiovascular/Chest: Regular rate and rhythm. No murmurs. No JVD. Abdominal Exam: Normal bowel sounds. Soft. normal abdomen, no visible veins Thoughts/Psych: Normal thought pattern. Appropriate mood and affect. Good judgement and insight Skin Exam: Normal inspection. Normal color. Warm. Dry laboratory and microbiology Laboratory Tests 07/05/25 05:00 07/05/25 03:51 Test 07/05/25 03:51 Range/Units Serum Glucose 122 H 74-106 mg/dL Microbiology Date/Time Source Procedure Growth Status 06/17/25 07:00 Stool Stool Culture - Final Complete 06/17/25 07:00 Stool Shiga Toxin I & II - Final Complete 06/16/25 10:30 Blood Blood Culture - Final NO GROWTH AFTER 5 DAYS OF INCUBATION. Complete 06/11/25 14:25 Nose MRSA Screen - Final Complete Labs and/or images reviewed: Labs reviewed by me, Image(s) reviewed by me Problem List/Assessment/Plan Problem List/Assessment/Plan Hematochezia Bleeding in the ileostomy bag Anemia likely due to above Atrial fibrillation with RVR Acute hypoxic respiratory failure S/p ex lap and colectomy 06/17, 06/19 S/p loop ileostomy and drain 06/20 [facility]AS[facility] VMN on CKD Plan: Continue NPO TPN Ordered another PRBC, keep hemoglobin greater than 7 IV Protonix b.i.d. If patient continues to have decrease in hemoglobin and/or bloody ileostomy output, we will remain on standby for endoscopy Thank you so much for the opportunity to consult on your patient. GI team will follow the patient. In case of any questions or concerns please feel free to reach out. Plan discussed with Dr. Lyons Plan discussed with: Patient, Other (Mother, RN) Dietary Evaluation Review Comments: 1) If patient remains NPO > 7 days, consider EN/TPN to meet at least 75% of estimated daily needs 2) If gut is preferred, consider Nepro @ 25 mL/hr goal rate as tolerated. Flush with 200 mL free H2O Q6H. TF regimen will provide 1080 kcals, 49g Pro, and 1236 mL free H2O per 24 hrs. TF regimen will meet ~ 92% estimated energy needs and 52% estimated protein needs. 3) Advance to 60g CCHO renal cardiac diet when medically feasible, pending ST approval 4) Refer to outpatient RD/CD[facility] for weight management 5) Follow-up with cardiology, pulmonology, or nephrology 6) Continue to monitor I&O, labs, and skin integrity Expected Outcomes/Goals: 1) patient to receive nutritional support within 7 days of NPO status 2) labs to improve 3) diet to advance 4) f/u in 2-3 days Sepsis reassessment post fluid Capillary Refill: < 3 seconds KAMILA MUNOZ RESIDENT Jul 05, 2025 13:21
[2025-07-05] MEDS: IOHEXOL 300 MG/ML 100ML BOTTLE IJ ONE (14:36)
--- NOTE | 2025-07-05 15:39 | DVH ---
Indication: Ischemic bowel Technique: CT axial images of the abdomen and pelvis are obtained with contrast. Coronal and sagittal reformats were obtained. Radiation Dose Information: CTDI volume is 25.64 mGy. Dose-length product is 1551 mGy*cm Comparison: None FINDINGS: Lung bases demonstrate multifocal pulmonary airspace consolidation/ground-glass disease. Tiny bilate ral pleural effusions. Cardiomegaly. Adrenal glands unremarkable. Peripheral splenic hypodensities measuring up to 2.8 cm. Pancreas unremarkable. No enhancing hepatic lesion. Cholecystectomy. Kidneys demonstrate no hydronephrosis. Gastric wall edema / thickening. Nasogastric tube projects towards stomach. Small bowel loops are n ormal in caliber. Right ileostomy. Mild bowel wall edema / thickening of the large bowel most pronou nced in the left abdomen. Sigmoid colon stump. Presacral edema. Abdominal aortic atherosclerotic disease. Bladder is partially decompressed by Engel catheter. No ing uinal lymphadenopathy. Rvro-at-pevfytaz thoracolumbar degenerative disc disease most pronounced at L5-S1. Possible Small amount of thrombus within the right external iliac vein. IMPRESSION: Bowel wall edema and thickening of the small bowel loops most pronounced in the left abdomen which ca n be secondary to enteritis, inflammatory bowel disease. No pneumatosis identified. Bilateral pulmonary airspace consolidation/ground-glass disease, likely pneumonia. Follow-up to reso lution. Tiny bilateral pleural effusions. Possible thrombus within the right external iliac vein. Recommend DVT ultrasound and CT venogram Peripheral splenic hypodensities up to 2.8 cm may represent splenic infarcts. Other findings as described.
[2025-07-05] MEDS ORDERED: VANCOMYCIN PER PHARMACY 0 MG IV SCH (17:15)
[2025-07-05] MEDS: VANCOMYCIN 1.25GM/250ML 250 ML IV ONE (17:45)
--- NOTE | 2025-07-05 19:41 | DVHPNRES ---
Progress Note Date Seen: Jul 05, 2025 Resident Creating Document: ELISEO GOMEZ RESDIENT Medical Necessity Reason Pt with a Central, PICC or Fol: Yes The following are medically ne: Central Line, Engel Catheter Subjective Review of Systems Patient seen and examined at the bedside. Patient has abdominal pain, and has black discharged from ileostomy. Objective vital signs Vital Sign Date Time Temp Pulse Resp B/P (MAP) Pulse Ox O2 Delivery O2 Flow Rate FiO2 07/05/25 19:18 94 16 96 07/05/25 19:18 Nasal Cannula 4.0 07/05/25 19:18 36 07/05/25 19:00 152/66 (94) 07/05/25 12:00 98.8 98.8 Total Intake and Output 07/04/25 07/04/25 07/05/25 15:00 23:00 07:00 Intake Total 540.28 ml 1678.28 ml 1791.28 ml Output Total 820 ml 565 ml Balance 540.28 ml 858.28 ml 1226.28 ml medications Current Medications Medications Dose Ordered Sig/Bárbara Route Start Time Stop Time Status Last Admin Dose Admin Ondansetron HCl 4 mg Q4HP PRN IV 06/09/25 01:00 Cancel Ipratropium [place] 0.5 mg Q6HR NEB 06/14/25 10:15 07/05/25 19:18 0.5 MG Levalbuterol HCl 1.25 mg Q6HR NEB 06/15/25 00:00 07/05/25 19:18 1.25 MG Sodium Bicarbonate 75 ml/ Dextrose 1,075 ml @ 700 mls/hr Q1H33M IV 06/16/25 17:15 06/16/25 18:47 Cancel Pantoprazole Sodium 40 mg BID IV 06/17/25 10:00 07/05/25 11:11 40 MG Bumetanide 1 mg BIDD IV 06/17/25 18:00 Cancel Micafungin Sodium 100 mg/Sodium Chloride 100 ml @ 100 mls/hr DAILY IV 06/19/25 10:00 07/05/25 11:12 100 MLS/HR Diagnostic Test (Pha) 1 strip Q6HR 06/19/25 00:00 07/05/25 18:00 1 STRIP Insulin Human Regular FOLLOW SLIDING SCALE Q6HR SC 06/19/25 00:00 07/05/25 11:30 2 UNITS Dextrose 50 ml UD IV 06/18/25 22:00 Meropenem 50 ml @ 17 mls/hr DAILY@0100 IV 06/21/25 01:00 Cancel Meropenem 50 ml @ 17 mls/hr Q8H IV 06/27/25 18:00 07/05/25 11:12 17 MLS/HR Sodium Chloride 10 ml QSHIFT@10,22 IV 06/29/25 22:00 07/05/25 11:12 10 ML Amino Acids 0 ml @ 0 mls/hr PER PHARMACY IV 07/03/25 12:45 Amiodarone HCL/ Dextrose 200 ml @ 16.66 mls/ hr Q12H IV 07/03/25 19:00 07/05/25 19:03 16.66 MLS/HR Acetaminophen 1,000 mg Q8H PRN IV 07/03/25 17:30 07/04/25 20:03 1,000 MG Potassium Acetate 20 meq/Magnesium Sulfate 8 meq/ Multivitamins 10 ml/Chromium/ Copper/Manganese/ Zinc 1 ml/Insulin Human Regular 4 units/Amino Acids/ Dextrose/Purified Water 1,223.04 ml @ 51 mls/hr [id number] IV 07/04/25 22:00 07/05/25 21:59 07/04/25 21:47 51 MLS/HR Dextrose 1,000 ml @ 150 mls/hr Q6H40M IV 07/04/25 14:00 07/05/25 10:00 150 MLS/HR Morphine Sulfate 4 mg Q6HPRN PRN IV 07/04/25 15:45 07/05/25 17:20 4 MG Potassium Acetate 60 meq/Magnesium Sulfate 20 meq/ Multivitamins 10 ml/Chromium/ Copper/Manganese/ Zinc 1 ml/Amino Acids/Dextrose 946 ml @ 40 mls/hr [id number] IV 07/05/25 22:00 07/06/25 21:59 Furosemide 20 mg DAILY IV 07/06/25 10:00 Potassium Chloride 100 ml @ 50 mls/hr Q2H IV 07/05/25 16:45 07/05/25 20:44 07/05/25 19:04 50 MLS/HR Vancomycin HCl 0 ml @ 0 mls/hr UD IV 07/05/25 17:15 Examination General Appearance: Alert, Oriented X3, in moderate respiratory distress HEENT: Atraumatic, PERRLA, EOMI, Mucous membrane moist/pink Respiratory: Bilateral crackles Cardiovascular: Regular rate, Normal S1, Normal S2, No murmurs, no chest wall tenderness Abdominal: Normal bowel sounds, Soft, No tenderness, No hepatospenomegaly, No masses Extremities: No clubbing, No cyanosis, No edema, Normal pulses, No tenderness/swelling Skin: Wound VAC on the surgical area, with no sign of infection or drainage laboratory and microbiology Laboratory Tests 07/05/25 05:00 07/05/25 03:51 Test 07/05/25 03:51 Range/Units Serum Glucose 122 H 74-106 mg/dL Microbiology Date/Time Source Procedure Growth Status 07/04/25 14:47 Blood Blood Culture - Preliminary NO GROWTH AFTER 24 HOURS OF INCUBATION. Resulted 06/17/25 07:00 Stool Stool Culture - Final Complete 06/17/25 07:00 Stool Shiga Toxin I & II - Final Complete 06/11/25 14:25 Nose MRSA Screen - Final Complete Labs and/or images reviewed: Labs reviewed by me Problem List/Assessment/Plan Problem List/Assessment/Plan This is a 54-year-old female with past medical history of HFpEF, paroxysmal AFib, severe TR, severe MR, prediabetic, asthma, CKD 3A, morbid obesity, came to ER due to shortness of breaths, cough and bilateral lower limb swelling for 2 weeks. Admitted on 06/09, put on BiPAP but the patient's condition worsened and got intubated on 06/11. Extubated on 06/26. NEURO: * Extubated on 06/26 CARDIOVASCULAR: Acute on chronic diastolic heart failure exacerbation Paroxysmal Atrial fibrillation with RVR Pulmonary edema due to heart failure Severe aortic insufficiency, mitral valve insufficiency, tricuspid regurg Acquired coagulopathy * Chads Vasc: 2 * Per Cardiology:patient underwent a transesophageal echocardiogram on 03/26/2025 which revealed an EF of 60% with severe aortic insufficiency and with moderate mitral insufficiency. * We will recommend to continue antiarrhythmic therapy with amiodarone, DOAC therapy with Eliquis, and beta-octavio for rate control . * Outpatient follow up with Dr. Melo in [place] for aortic valve replacement with possible TAVR as well as possible mitral clip. * Plan: Lasix 20 IV daily, amiodarone drip PULMONARY: Acute hypoxic respiratory failure, likely due to pneumonia/COPD exacerbation/asthma exacerbation COPD on 4 L at home Hx of Pna and intubation 2022 Sepsis secondary to Acute Gram-positive and Gram-negative pneumonia Likely COPD on 4L home O2 History of asthma * Plan: Continue vancomycin (06/17), meropenem (06/27), micafungin (06/19), and breathing treatment GASTROINTESTINAL: Pneumatosis intestinalis and megacolon likely ischemic bowel Perforation and peritonitis Status s/p laparotomy, subtotal colectomy (ascending and transfer) 06/17, resection of descending colon 06/19, ileocolic anastomosis with protective loop ileostomy, drain placement 06/20 Transaminitis, 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 Evidence of portal venous gas * liver ultrasound shows hepatic steatosis * Surgeon - wound VAC for midline * Today 07/02, the patient got abdominal pain, subsequently developed bleeding from ileostomy and rectal (almost 500 mL). Patient was evaluated by surgeon at the bedside, evaluated the ileostomy, digitize both ileostomy, both patent. Recommended GI evaluation and possible scope, consulted GI, an updated the on-call doctor on phone, reports that she will, and we will assess at the bedside for possible scope. * Abdominal CT 07/05, Bowel wall edema and thickening of the small bowel loops most pronounced in the left abdomen which can be secondary to enteritis, inflammatory bowel disease. No pneumatosis identified.Peripheral splenic hypodensities up to 2.8 cm may represent splenic infarcts. * GI, on the board, planned for possible EGD on 07/06 * Plan: Follow up with the GI GENITOURINARY: NYASIA secondary to hemodynamically mediated/VMN requiring hemodialysis 06/20 (1 session) ? Chronic kidney disease Anemia of CKD * Kidney ultrasound shows Normal sonographic appearance of the kidneys. No hydronephrosis. 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 Critical care time spent more than 68 minutes, including patient care, chart review, and updating the family. Excluding any procedures. Case discussed with Dr. Benjamin Plan discussed with: Patient My Orders My Orders Orders - ELISEO GOMEZ RESDIDOMONIQUE Procedure Category Date Status Time Chest Xray 1 View XY 07/05/25 Resulted 09:15 Furosemide Injection PHA 07/06/25 In Process (Lasix Injection) 10:00 Ct Ab Pel With Iv Con CT 07/05/25 Resulted Only 10:23 Potassium Chl PHA 07/05/25 In Process 20meq/100ml 16:45 Vancomycin Per PHA 07/05/25 In Process Pharmacy 17:15 Complete Blood Count LAB 07/06/25 Verified 04:00 Chest Xray 1 View XY 07/06/25 Logged 04:00 Abg W/ Co-Ox RT 07/06/25 Logged 04:00 Vancomycin,Random LAB 07/06/25 Verified 04:00 Vancomycin Per DEANDRA 07/05/25 In Process Pharmacy Protoc 17:35 Dietary Evaluation Review Comments: 1) If patient remains NPO > 7 days, consider EN/TPN to meet at least 75% of estimated daily needs 2) If gut is preferred, consider Nepro @ 25 mL/hr goal rate as tolerated. Flush with 200 mL free H2O Q6H. TF regimen will provide 1080 kcals, 49g Pro, and 1236 mL free H2O per 24 hrs. TF regimen will meet ~ 92% estimated energy needs and 52% estimated protein needs. 3) Advance to 60g CCHO renal cardiac diet when medically feasible, pending ST approval 4) Refer to outpatient RD/CDCES for weight management 5) Follow-up with cardiology, pulmonology, or nephrology 6) Continue to monitor I&O, labs, and skin integrity Expected Outcomes/Goals: 1) patient to receive nutritional support within 7 days of NPO status 2) labs to improve 3) diet to advance 4) f/u in 2-3 days Sepsis reassessment post fluid Capillary Refill: < 3 seconds Date of Service: Jul 05, 2025 Billing Provider: ELZA BENJAMIN MD Common Visit Codes: 96921-[id number] CARE 30-74 MIN ELISEO GOMEZ Jul 05, 2025 19:41 ELZA BENJAMIN MD Jul 06, 2025 14:19
--- NOTE | 2025-07-05 19:51 | DVHPN2 ---
Progress Note - Dictate Date Seen: Jul 05, 2025 Medical Necessity Reason Pt with a Central, PICC or Fol: Yes The following are medically ne: Central Line, Engel Catheter Subjective Patient was seen and evaluated in follow up in the ICU. Patient is on 3 LPM NC. Patient complains of abdominal pain and has black discharged from ileostomy. WBC 15.6, HGB 7.2, HCT 21.8, NA 147, K 3.0, BUN 59, Skilled Nursing Professional 1.30. CT abd/pel shows bowel wall edema and thickening of the small bowel loops most pronounced in the left abdomen which can be secondary to enteritis, inflammatory bowel disease. No pneumatosis identified. Bilateral pulmonary airspace consolidation/ground-glass disease, likely pneumonia. Follow-up to resolution. Tiny bilateral pleural effusions. Possible thrombus within the right external iliac vein. Peripheral splenic hypodensities up to 2.8 cm may represent splenic infarcts. vital signs Vital Sign Date Time Temp Pulse Resp B/P (MAP) Pulse Ox O2 Delivery O2 Flow Rate FiO2 07/05/25 19:42 92 19 95 Nasal Cannula* 2 28 07/05/25 19:00 152/66 (94) 07/05/25 12:00 98.8 98.8 Total Intake and Output 07/04/25 07/04/25 07/05/25 15:00 23:00 07:00 Intake Total 540.28 ml 1678.28 ml 1791.28 ml Output Total 820 ml 565 ml Balance 540.28 ml 858.28 ml 1226.28 ml medications Current Medications Medications Dose Ordered Sig/Bárbara Route Start Time Stop Time Status Last Admin Dose Admin Ondansetron HCl 4 mg Q4HP PRN IV 06/09/25 01:00 Cancel Ipratropium [place] 0.5 mg Q6HR NEB 06/14/25 10:15 07/05/25 19:18 0.5 MG Levalbuterol HCl 1.25 mg Q6HR NEB 06/15/25 00:00 07/05/25 19:18 1.25 MG Sodium Bicarbonate 75 ml/ Dextrose 1,075 ml @ 700 mls/hr Q1H33M IV 06/16/25 17:15 06/16/25 18:47 Cancel Pantoprazole Sodium 40 mg BID IV 06/17/25 10:00 07/05/25 11:11 40 MG Bumetanide 1 mg BIDD IV 06/17/25 18:00 Cancel Micafungin Sodium 100 mg/Sodium Chloride 100 ml @ 100 mls/hr DAILY IV 06/19/25 10:00 07/05/25 11:12 100 MLS/HR Diagnostic Test (Pha) 1 strip Q6HR 06/19/25 00:00 07/05/25 18:00 1 STRIP Insulin Human Regular FOLLOW SLIDING SCALE Q6HR SC 06/19/25 00:00 07/05/25 11:30 2 UNITS Dextrose 50 ml UD IV 06/18/25 22:00 Meropenem 50 ml @ 17 mls/hr DAILY@0100 IV 06/21/25 01:00 Cancel Meropenem 50 ml @ 17 mls/hr Q8H IV 06/27/25 18:00 07/05/25 11:12 17 MLS/HR Sodium Chloride 10 ml QSHIFT@10,22 IV 06/29/25 22:00 07/05/25 11:12 10 ML Amino Acids 0 ml @ 0 mls/hr PER PHARMACY IV 07/03/25 12:45 Amiodarone HCL/ Dextrose 200 ml @ 16.66 mls/ hr Q12H IV 07/03/25 19:00 07/05/25 19:03 16.66 MLS/HR Acetaminophen 1,000 mg Q8H PRN IV 07/03/25 17:30 07/04/25 20:03 1,000 MG Potassium Acetate 20 meq/Magnesium Sulfate 8 meq/ Multivitamins 10 ml/Chromium/ Copper/Manganese/ Zinc 1 ml/Insulin Human Regular 4 units/Amino Acids/ Dextrose/Purified Water 1,223.04 ml @ 51 mls/hr [id number] IV 07/04/25 22:00 07/05/25 21:59 07/04/25 21:47 51 MLS/HR Dextrose 1,000 ml @ 150 mls/hr Q6H40M IV 07/04/25 14:00 07/05/25 10:00 150 MLS/HR Morphine Sulfate 4 mg Q6HPRN PRN IV 07/04/25 15:45 07/05/25 17:20 4 MG Potassium Acetate 60 meq/Magnesium Sulfate 20 meq/ Multivitamins 10 ml/Chromium/ Copper/Manganese/ Zinc 1 ml/Amino Acids/Dextrose 946 ml @ 40 mls/hr [id number] IV 07/05/25 22:00 07/06/25 21:59 Furosemide 20 mg DAILY IV 07/06/25 10:00 Potassium Chloride 100 ml @ 50 mls/hr Q2H IV 07/05/25 16:45 07/05/25 20:44 07/05/25 19:04 50 MLS/HR Vancomycin HCl 0 ml @ 0 mls/hr UD IV 07/05/25 17:15 objective GENERAL: Alert and oriented x 3. No acute distress. EYES: PERRL, EOMI. Anicteric. HENT: Moist mucous membranes. LUNGS: Decreased breath sounds. CARDIOVASCULAR: Regular rate and rhythm. ABDOMEN: Soft, nontender and nondistended. EXTREMITIES: No edema. NEUROLOGIC: No focal neurological deficits. SKIN: Warm, dry. laboratory and microbiology Laboratory Tests 07/05/25 05:00 07/05/25 03:51 Test 07/05/25 03:51 Range/Units Serum Glucose 122 H 74-106 mg/dL Problem List Chronic HFpEF, NYHA class IV. Paroxysmal atrial fibrillation, stage III, now NSR (on amiodarone/Elqiuis therapy). Severe aortic valve and mitral valve insufficiency. Acute hypoxic respiratory failure. Asthma. Chronic kidney disease. Thyroid disease. Prediabetes, newly diagnosed. Morbid obesity. History of tobacco use. Assessment/Plan Continued all current supportive medical care. IV Amiodarone. GI prophylactics. IV antibiotics as ordered. Morphine for pain management. Additional plan as per the hospital course. Critical care time of 45 minutes provided to include time spent evaluation of patient at bedside, when appropriate patient/family education for diagnosis, treatment plan, review of pertinent medical information and discussion of care with specialty providers and PCP. Dietary Evaluation Review Comments: 1) If patient remains NPO > 7 days, consider EN/TPN to meet at least 75% of estimated daily needs 2) If gut is preferred, consider Nepro @ 25 mL/hr goal rate as tolerated. Flush with 200 mL free H2O Q6H. TF regimen will provide 1080 kcals, 49g Pro, and 1236 mL free H2O per 24 hrs. TF regimen will meet ~ 92% estimated energy needs and 52% estimated protein needs. 3) Advance to 60g CCHO renal cardiac diet when medically feasible, pending ST approval 4) Refer to outpatient RD/CDCES for weight management 5) Follow-up with cardiology, pulmonology, or nephrology 6) Continue to monitor I&O, labs, and skin integrity Expected Outcomes/Goals: 1) patient to receive nutritional support within 7 days of NPO status 2) labs to improve 3) diet to advance 4) f/u in 2-3 days Plan discussed with: Patient Capillary Refill: < 3 seconds URBANO TRUONG MD Jul 05, 2025 19:51
[2025-07-05] MEDS: TPN PER PHARMACY IV NR (21:11)
[2025-07-06] VITALS (102 sets, daily range): BP systolic 116–164; BP diastolic 43–73; PULSE 81–105; RESP 13–38; TEMP 98.3–99.2; O2SAT 84–100
[2025-07-06 04:02] LABS: Hematocrit 26.7 % (36.0-46.0); Hemoglobin 8.9 g/dL (12.2-16.2); Mean Corpuscular Hemoglobin 28.5 pg (28.0-32.0); Mean Corpuscular Volume 85.5 fL (80.0-100.0)
[2025-07-06 04:19] LABS: BUN/Creatinine Ratio 48.0 (10.0-20.0); Bilirubin, Total 0.4 mg/dL (0.2-1.0); Carbon Dioxide 25 mmol/L (20-31); Magnesium 2.3 mg/dL (1.6-2.6)
[2025-07-06 04:20] LABS: Alanine Aminotransferase 62 U/L (7-40); Albumin 2.1 g/dL (3.2-4.8); Alkaline Phosphatase 126 U/L (46-116); Blood Urea Nitrogen 49 mg/dL (9-23); Calcium 7.6 mg/dL (8.7-10.4); Glucose 118 mg/dL (74-106); Total Protein 4.7 g/dL (5.7-8.2)
[2025-07-06 04:26] LABS: Anion Gap 10 (5-15); Chloride 105 mmol/L (98-107); Potassium 4.0 mmol/L (3.5-5.1); Sodium 140 mmol/L (136-145)
[2025-07-06 04:49] LABS: Nucleated Red Blood Cells % 1.0 %; Total Cells Counted 100.0 (100)
--- NOTE | 2025-07-06 05:01 | DVH ---
CHEST RADIOGRAPH Indication: Penumoina Technique: Single frontal view of the chest was obtained COMPARISON: XY CHEST XRAY 1 VIEW on DOS: 07/05/25, XY CHEST XRAY 1 VIEW on DOS: 07/03/25, XY CHEST XRAY 1 VIEW on DOS: 07/01/25, XY CHEST PORTABLE on DOS: 06/30/25, XY CHEST XRAY 1 VIEW on DOS: 06/30/25 FINDINGS: Lines and Tubes: Unchanged. Lungs: Stable diffuse increased prominence of the pulmonary vasculature. No evidence of focal consoli dation. Pleura: No effusion. No pneumothorax. Cardiomediastinal contours: Cardiomegaly. Bones: Unremarkable IMPRESSION: 1. Lines and tubes unchanged. 2. Cardiomegaly and diffuse increased prominence of the pulmonary vasculature.
--- NOTE | 2025-07-06 10:22 | DVHPN2 ---
Progress Note Date Seen: Jul 06, 2025 Resident Creating Document: KAMILA MUNOZ RESIDENT Medical Necessity Reason Pt with a Central, PICC or Fol: Yes The following are medically ne: Central Line, Engel Catheter Subjective Review of Systems Patient seen and examined at bedside About 60-70 cc of blackish ileostomy output over the last 24 hours, decreasing S/p 1 PRBC on 07/05/2025 Hemoglobin increased appropriately Objective vital signs Vital Sign Date Time Temp Pulse Resp B/P (MAP) Pulse Ox O2 Delivery O2 Flow Rate FiO2 07/06/25 07:04 85 17 97 07/06/25 06:58 Nasal Cannula 4.0 07/06/25 06:58 36 07/06/25 06:06 144/58 07/06/25 03:15 98.4 98.4 Total Intake and Output 07/05/25 07/05/25 07/06/25 15:00 23:00 07:00 Intake Total 1941.28 ml 2899.62 ml 1831.62 ml Output Total 1075 ml 1625 ml Balance 1941.28 ml 1824.62 ml 206.62 ml medications Current Medications Medications Dose Ordered Sig/Bárbara Route Start Time Stop Time Status Last Admin Dose Admin Ondansetron HCl 4 mg Q4HP PRN IV 06/09/25 01:00 Cancel Ipratropium [place] 0.5 mg Q6HR NEB 06/14/25 10:15 07/06/25 06:58 0.5 MG Levalbuterol HCl 1.25 mg Q6HR NEB 06/15/25 00:00 07/06/25 06:58 1.25 MG Sodium Bicarbonate 75 ml/ Dextrose 1,075 ml @ 700 mls/hr Q1H33M IV 06/16/25 17:15 06/16/25 18:47 Cancel Pantoprazole Sodium 40 mg BID IV 06/17/25 10:00 07/05/25 21:07 40 MG Bumetanide 1 mg BIDD IV 06/17/25 18:00 Cancel Micafungin Sodium 100 mg/Sodium Chloride 100 ml @ 100 mls/hr DAILY IV 06/19/25 10:00 07/05/25 11:12 100 MLS/HR Diagnostic Test (Pha) 1 strip Q6HR 06/19/25 00:00 07/06/25 04:32 1 STRIP Insulin Human Regular FOLLOW SLIDING SCALE Q6HR SC 06/19/25 00:00 07/05/25 11:30 2 UNITS Dextrose 50 ml UD IV 06/18/25 22:00 Meropenem 50 ml @ 17 mls/hr DAILY@0100 IV 06/21/25 01:00 Cancel Meropenem 50 ml @ 17 mls/hr Q8H IV 06/27/25 18:00 07/06/25 02:49 17 MLS/HR Sodium Chloride 10 ml QSHIFT@10,22 IV 06/29/25 22:00 07/05/25 21:07 10 ML Amino Acids 0 ml @ 0 mls/hr PER PHARMACY IV 07/03/25 12:45 Amiodarone HCL/ Dextrose 200 ml @ 16.66 mls/ hr Q12H IV 07/03/25 19:00 07/06/25 04:33 16.66 MLS/HR Acetaminophen 1,000 mg Q8H PRN IV 07/03/25 17:30 07/04/25 20:03 1,000 MG Morphine Sulfate 4 mg Q6HPRN PRN IV 07/04/25 15:45 07/06/25 05:36 4 MG Potassium Acetate 60 meq/Magnesium Sulfate 20 meq/ Multivitamins 10 ml/Chromium/ Copper/Manganese/ Zinc 1 ml/Amino Acids/Dextrose 946 ml @ 40 mls/hr [id number] IV 07/05/25 22:00 07/06/25 21:59 07/05/25 21:11 40 MLS/HR Furosemide 20 mg DAILY IV 07/06/25 10:00 Vancomycin HCl 0 ml @ 0 mls/hr UD IV 07/05/25 17:15 Sodium Chloride 20 meq/Potassium Chloride 40 meq/ Potassium Acetate 80 meq/Potassium Phosphate 22 meq/ Calcium Gluconate 2.3 meq/Magnesium Sulfate 10 meq/ Multivitamins 10 ml/Chromium/ Copper/Manganese/ Zinc 1 ml/Amino Acids/Dextrose 1,188.4462 ml @ 50 mls/hr [id number] IV 07/06/25 22:00 07/07/25 21:59 Vancomycin HCl 100 ml @ 100 mls/hr Q12H IV 07/06/25 13:00 UNV Examination General Appearance: Somnolent Head Exam: Normal inspection. Constricted equal and reactive pupils Neck Exam: Normal inspection. Non-tender. Normal alignment Pulmonary/Respiratory: Chest non-tender. Trace crackles Abdominal Exam: Normal bowel sounds. Soft. Nontender Skin Exam: Normal inspection. Normal color. Warm. Dry laboratory and microbiology Laboratory Tests 07/06/25 03:09 Test 07/06/25 03:09 Range/Units Serum Glucose 118 H 74-106 mg/dL Microbiology Date/Time Source Procedure Growth Status 07/04/25 14:47 Blood Blood Culture - Preliminary Resulted 06/17/25 07:00 Stool Stool Culture - Final Complete 06/17/25 07:00 Stool Shiga Toxin I & II - Final Complete 06/11/25 14:25 Nose MRSA Screen - Final Complete Labs and/or images reviewed: Labs reviewed by me, Image(s) reviewed by me Problem List/Assessment/Plan Problem List/Assessment/Plan Hematochezia Bleeding in the ileostomy bag Anemia likely due to above Atrial fibrillation with RVR Acute hypoxic respiratory failure S/p ex lap and colectomy 06/17, 06/19 S/p loop ileostomy and drain 06/20 NYASIA VMN on CKD Plan: Protonix drip Continue conservative management TPN keep hemoglobin greater than 7 If patient continues to have decrease in hemoglobin and/or bloody ileostomy output, we will remain on standby for endoscopy Thank you so much for the opportunity to consult on your patient. GI team will follow the patient. In case of any questions or concerns please feel free to reach out. Plan discussed with Dr. Lyons Plan discussed with: Patient, Other (RN) Dietary Evaluation Review Comments: 1) If patient remains NPO > 7 days, consider EN/TPN to meet at least 75% of estimated daily needs 2) If gut is preferred, consider Nepro @ 25 mL/hr goal rate as tolerated. Flush with 200 mL free H2O Q6H. TF regimen will provide 1080 kcals, 49g Pro, and 1236 mL free H2O per 24 hrs. TF regimen will meet ~ 92% estimated energy needs and 52% estimated protein needs. 3) Advance to 60g CCHO renal cardiac diet when medically feasible, pending ST approval 4) Refer to outpatient RD/CDCES for weight management 5) Follow-up with cardiology, pulmonology, or nephrology 6) Continue to monitor I&O, labs, and skin integrity Expected Outcomes/Goals: 1) patient to receive nutritional support within 7 days of NPO status 2) labs to improve 3) diet to advance 4) f/u in 2-3 days Sepsis reassessment post fluid Capillary Refill: < 3 seconds KAMILA MUNOZ RESIDENT Jul 06, 2025 10:22
--- NOTE | 2025-07-06 10:35 | DVHPN2 ---
Progress Note - Surgical Date Seen: Jul 06, 2025 Post op day Post op day: 19 Subjective Patient reports: Feels better (Patient continues to feel better, no abdominal pain complaints, says that her stool is foul smelling, still NPO with TPN due to GI bleed.) Review of Systems: Deferred Objective Vital signs Vital Sign Date Time Temp Pulse Resp B/P (MAP) Pulse Ox O2 Delivery O2 Flow Rate FiO2 07/06/25 07:04 85 17 97 07/06/25 06:58 Nasal Cannula 4.0 07/06/25 06:58 36 07/06/25 06:06 144/58 07/06/25 03:15 98.4 98.4 Total Intake and Output 07/05/25 07/05/25 07/06/25 15:00 23:00 07:00 Intake Total 1941.28 ml 2899.62 ml 1831.62 ml Output Total 1075 ml 1625 ml Balance 1941.28 ml 1824.62 ml 206.62 ml Medications Current Medications Medications Dose Ordered Sig/Bárbara Route Start Time Stop Time Status Last Admin Dose Admin Ondansetron HCl 4 mg Q4HP PRN IV 06/09/25 01:00 Cancel Ipratropium [place] 0.5 mg Q6HR NEB 06/14/25 10:15 07/06/25 06:58 0.5 MG Levalbuterol HCl 1.25 mg Q6HR NEB 06/15/25 00:00 07/06/25 06:58 1.25 MG Sodium Bicarbonate 75 ml/ Dextrose 1,075 ml @ 700 mls/hr Q1H33M IV 06/16/25 17:15 06/16/25 18:47 Cancel Pantoprazole Sodium 40 mg BID IV 06/17/25 10:00 07/05/25 21:07 40 MG Bumetanide 1 mg BIDD IV 06/17/25 18:00 Cancel Micafungin Sodium 100 mg/Sodium Chloride 100 ml @ 100 mls/hr DAILY IV 06/19/25 10:00 07/05/25 11:12 100 MLS/HR Diagnostic Test (Pha) 1 strip Q6HR 06/19/25 00:00 07/06/25 04:32 1 STRIP Insulin Human Regular FOLLOW SLIDING SCALE Q6HR SC 06/19/25 00:00 07/05/25 11:30 2 UNITS Dextrose 50 ml UD IV 06/18/25 22:00 Meropenem 50 ml @ 17 mls/hr DAILY@0100 IV 06/21/25 01:00 Cancel Meropenem 50 ml @ 17 mls/hr Q8H IV 06/27/25 18:00 07/06/25 02:49 17 MLS/HR Sodium Chloride 10 ml QSHIFT@10,22 IV 06/29/25 22:00 07/05/25 21:07 10 ML Amino Acids 0 ml @ 0 mls/hr PER PHARMACY IV 07/03/25 12:45 Amiodarone HCL/ Dextrose 200 ml @ 16.66 mls/ hr Q12H IV 07/03/25 19:00 07/06/25 04:33 16.66 MLS/HR Acetaminophen 1,000 mg Q8H PRN IV 07/03/25 17:30 07/04/25 20:03 1,000 MG Morphine Sulfate 4 mg Q6HPRN PRN IV 07/04/25 15:45 07/06/25 05:36 4 MG Potassium Acetate 60 meq/Magnesium Sulfate 20 meq/ Multivitamins 10 ml/Chromium/ Copper/Manganese/ Zinc 1 ml/Amino Acids/Dextrose 946 ml @ 40 mls/hr [id number] IV 07/05/25 22:00 07/06/25 21:59 07/05/25 21:11 40 MLS/HR Furosemide 20 mg DAILY IV 07/06/25 10:00 Vancomycin HCl 0 ml @ 0 mls/hr UD IV 07/05/25 17:15 Sodium Chloride 20 meq/Potassium Chloride 40 meq/ Potassium Acetate 80 meq/Potassium Phosphate 22 meq/ Calcium Gluconate 2.3 meq/Magnesium Sulfate 10 meq/ Multivitamins 10 ml/Chromium/ Copper/Manganese/ Zinc 1 ml/Amino Acids/Dextrose 1,188.4462 ml @ 50 mls/hr [id number] IV 07/06/25 22:00 07/07/25 21:59 Vancomycin HCl 100 ml @ 100 mls/hr Q12H IV 07/06/25 13:00 UNV Laboratory Laboratory Tests 07/06/25 03:09 Test 07/06/25 03:09 Range/Units Serum Glucose 118 H 74-106 mg/dL Microbiology Date/Time Source Procedure Growth Status 07/04/25 14:47 Blood Blood Culture - Preliminary Resulted 06/17/25 07:00 Stool Stool Culture - Final Complete 06/17/25 07:00 Stool Shiga Toxin I & II - Final Complete 06/11/25 14:25 Nose MRSA Screen - Final Complete Examination: GENERAL:Normal, ABDOMEN:Abnormal (Nondistended, midline wound with wound VAC placed and no surrounding signs of infection, right lower quadrant ileostomy with pink mucosa and with a mixture of 2 and blood in bag, very minimal epigastric tenderness, no rebound, no guarding) Labs and/or images reviewed: Labs reviewed by me (Leukocytosis at 14, hemoglobin down trended and required a unit of blood) Problem List/Assessment/Plan Assessment and Plan Mrs. Penaloza is a 54-year-old female who has been in the hospital since June 08 due to pneumonia and CHF exacerbation that resulted in intubation. I was consulted on 06/17 due to severe colonic distention and pneumatosis seen on CT from that day. She ended receiving a subtotal colectomy colectomy, with primary ileocolic anastomosis and protective loop ileostomy. Interval: Patient looking very good this morning without abdominal pain complaints, she did require 1 more unit of blood still having a mixture of stool and blood per ostomy. GI we will re-evaluate today. CT from yesterday was evaluated, no intraperitoneal fluid collections, bowel lights up nicely, anastomosis site looked intact, only abnormality was some thickening of small bowel wall possibly due to enteritis or irritation due to GI bleed. Also seen 2 small areas of likely splenic infarct versus hematoma, nothing to do for this finding. CT also shows what appears to be a thrombus in the right iliac vein, for this reason recommend bilateral DVT ultrasounds of the lower extremities. Surgeries: 06/17: Exploratory laparotomy, subtotal colectomy (resection of ascending and transverse colon), temporary abdominal closure 06/19: Exploratory laparotomy, takedown of temporary abdominal dressing, wash out, resection of descending colon 06/20: Exploratory laparotomy, takedown of temporary abdominal dressing, washout, ileocolic anastomosis, protective loop ileostomy, drain placement x2, fascial closure 1. Okay for p.o. diet, pending GI evaluation 2. Recommend obtaining bilateral lower extremity ultrasounds for DVT, given the right iliac thrombus. 3. Given that the patient is having GI bleeding, and DVT prophylaxis has been held; Recommend obtaining IR consultation for possible IVC filter , given that the patient is not ambulatory. 4. Continue with TPN, she was malnourished, and she has not eaten anything significant since extubation 5. Hold DVT prophylaxis 6. Wound VAC for midline wound 7. Recommend continuation of IV antibiotics for a total of 7 days from the last surgery on 06/20 8. Physical therapy consultation 9. Okay to give a 1 time supposed start a clear the fecal material in the rectum seen in the CT Plan discussed with Plan discussed with: Patient Visit Coding Surgery Date of Service if different f: Jul 06, 2025 Billing Provider: SONAM ALCARAZ MD Surgery Visit Codes: [id number] INP/OBS CARE(HIGH) SONAM ALCARAZ MD Jul 06, 2025 10:35
[2025-07-06] MEDS: FUROSEMIDE 20 MG/2 ML VIAL IV SCH (11:05)
[2025-07-06] MEDS ORDERED: VANCOMYCIN 750MG KIT 100 ML IV SCH (13:00)
[2025-07-06] MEDS: PANTOPRAZOLE 40mg/50ML NS AE 50 ML IV SCH (14:45)
[2025-07-06] MEDS: FUROSEMIDE 20 MG/2 ML VIAL IV ONE (16:15)
--- NOTE | 2025-07-06 18:44 | DVHPNRES ---
Progress Note Date Seen: Jul 06, 2025 Resident Creating Document: ELISEO GOMEZ RESDIENT Medical Necessity Reason Pt with a Central, PICC or Fol: Yes The following are medically ne: Central Line, Engel Catheter Subjective Review of Systems Patient seen and examined at the bedside. Patient has abdominal pain, and has black discharged from ileostomy. Objective vital signs Vital Sign Date Time Temp Pulse Resp B/P (MAP) Pulse Ox O2 Delivery O2 Flow Rate FiO2 07/06/25 18:15 93 18 130/64 (86) 97 07/06/25 18:00 Nasal Cannula* 2 28 07/06/25 16:00 98.9 98.9 Total Intake and Output 07/05/25 07/05/25 07/06/25 15:00 23:00 07:00 Intake Total 1941.28 ml 2899.62 ml 1888.28 ml Output Total 1075 ml 1625 ml Balance 1941.28 ml 1824.62 ml 263.28 ml medications Current Medications Medications Dose Ordered Sig/Bárbara Route Start Time Stop Time Status Last Admin Dose Admin Ondansetron HCl 4 mg Q4HP PRN IV 06/09/25 01:00 Cancel Ipratropium [place] 0.5 mg Q6HR NEB 06/14/25 10:15 07/06/25 18:19 0.5 MG Levalbuterol HCl 1.25 mg Q6HR NEB 06/15/25 00:00 07/06/25 18:19 1.25 MG Sodium Bicarbonate 75 ml/ Dextrose 1,075 ml @ 700 mls/hr Q1H33M IV 06/16/25 17:15 06/16/25 18:47 Cancel Bumetanide 1 mg BIDD IV 06/17/25 18:00 Cancel Diagnostic Test (Pha) 1 strip Q6HR 06/19/25 00:00 07/06/25 18:04 1 STRIP Insulin Human Regular FOLLOW SLIDING SCALE Q6HR SC 06/19/25 00:00 07/05/25 11:30 2 UNITS Dextrose 50 ml UD IV 06/18/25 22:00 Meropenem 50 ml @ 17 mls/hr DAILY@0100 IV 06/21/25 01:00 Cancel Meropenem 50 ml @ 17 mls/hr Q8H IV 06/27/25 18:00 07/06/25 18:07 17 MLS/HR Sodium Chloride 10 ml QSHIFT@10,22 IV 06/29/25 22:00 07/06/25 11:06 10 ML Amino Acids 0 ml @ 0 mls/hr PER PHARMACY IV 07/03/25 12:45 Amiodarone HCL/ Dextrose 200 ml @ 16.66 mls/ hr Q12H IV 07/03/25 19:00 07/06/25 18:04 16.66 MLS/HR Acetaminophen 1,000 mg Q8H PRN IV 07/03/25 17:30 07/04/25 20:03 1,000 MG Morphine Sulfate 4 mg Q6HPRN PRN IV 07/04/25 15:45 07/06/25 11:38 4 MG Potassium Acetate 60 meq/Magnesium Sulfate 20 meq/ Multivitamins 10 ml/Chromium/ Copper/Manganese/ Zinc 1 ml/Amino Acids/Dextrose 946 ml @ 40 mls/hr [id number] IV 07/05/25 22:00 07/06/25 21:59 07/05/25 21:11 40 MLS/HR Vancomycin HCl 0 ml @ 0 mls/hr UD IV 07/05/25 17:15 Sodium Chloride 20 meq/Potassium Chloride 40 meq/ Potassium Acetate 80 meq/Potassium Phosphate 22 meq/ Calcium Gluconate 2.3 meq/Magnesium Sulfate 10 meq/ Multivitamins 10 ml/Chromium/ Copper/Manganese/ Zinc 1 ml/Amino Acids/Dextrose 1,188.4462 ml @ 50 mls/hr [id number] IV 07/06/25 22:00 07/07/25 21:59 Vancomycin HCl 100 ml @ 100 mls/hr Q12H IV 07/06/25 13:00 UNV Pantoprazole Sodium 50 ml @ 10 mls/hr Q5H IV 07/06/25 14:45 07/06/25 14:45 10 MLS/HR Furosemide 40 mg DAILY IV 07/07/25 10:00 Examination General Appearance: Alert, Oriented X3, in moderate respiratory distress HEENT: Atraumatic, PERRLA, EOMI, Mucous membrane moist/pink Respiratory: Bilateral crackles Cardiovascular: Regular rate, Normal S1, Normal S2, No murmurs, no chest wall tenderness Abdominal: Normal bowel sounds, Soft, No tenderness, No hepatospenomegaly, No masses Extremities: No clubbing, No cyanosis, No edema, Normal pulses, No tenderness/swelling Skin: Wound VAC on the surgical area, with no sign of infection or drainage laboratory and microbiology Laboratory Tests 07/06/25 03:09 Test 07/06/25 03:09 Range/Units Serum Glucose 118 H 74-106 mg/dL Microbiology Date/Time Source Procedure Growth Status 07/04/25 14:47 Blood Blood Culture - Preliminary Resulted 06/17/25 07:00 Stool Stool Culture - Final Complete 06/17/25 07:00 Stool Shiga Toxin I & II - Final Complete 06/11/25 14:25 Nose MRSA Screen - Final Complete Labs and/or images reviewed: Labs reviewed by me Problem List/Assessment/Plan Problem List/Assessment/Plan This is a 54-year-old female with past medical history of HFpEF, paroxysmal AFib, severe TR, severe MR, prediabetic, asthma, CKD 3A, morbid obesity, came to ER due to shortness of breaths, cough and bilateral lower limb swelling for 2 weeks. Admitted on 06/09, put on BiPAP but the patient's condition worsened and got intubated on 06/11. Extubated on 06/26. NEURO: * Extubated on 06/26 CARDIOVASCULAR: Acute on chronic diastolic heart failure exacerbation Paroxysmal Atrial fibrillation with RVR Pulmonary edema due to heart failure Severe aortic insufficiency, mitral valve insufficiency, tricuspid regurg Acquired coagulopathy * Chads Vasc: 2 * Per Cardiology:patient underwent a transesophageal echocardiogram on 03/26/2025 which revealed an EF of 60% with severe aortic insufficiency and with moderate mitral insufficiency. * We will recommend to continue antiarrhythmic therapy with amiodarone, DOAC therapy with Eliquis, and beta-octavio for rate control . * Outpatient follow up with Dr. Melo in [place] for aortic valve replacement with possible TAVR as well as possible mitral clip. * Plan: Lasix 40 IV daily, amiodarone drip PULMONARY: Acute hypoxic respiratory failure, likely due to pneumonia/COPD exacerbation/asthma exacerbation COPD on 4 L at home Hx of Pna and intubation 2022 Sepsis secondary to Acute Gram-positive and Gram-negative pneumonia Likely COPD on 4L home O2 History of asthma * Plan: Continue vancomycin (06/17), meropenem (06/27), micafungin (06/19), and breathing treatment GASTROINTESTINAL: Pneumatosis intestinalis and megacolon likely ischemic bowel Perforation and peritonitis Status s/p laparotomy, subtotal colectomy (ascending and transfer) 06/17, resection of descending colon 06/19, ileocolic anastomosis with protective loop ileostomy, drain placement 06/20 Transaminitis, 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 Evidence of portal venous gas * liver ultrasound shows hepatic steatosis * Surgeon - wound VAC for midline * Today 07/02, the patient got abdominal pain, subsequently developed bleeding from ileostomy and rectal (almost 500 mL). Patient was evaluated by surgeon at the bedside, evaluated the ileostomy, digitize both ileostomy, both patent. Recommended GI evaluation and possible scope, consulted GI, an updated the on-call doctor on phone, reports that she will, and we will assess at the bedside for possible scope. * Abdominal CT 07/05, Bowel wall edema and thickening of the small bowel loops most pronounced in the left abdomen which can be secondary to enteritis, inflammatory bowel disease. No pneumatosis identified.Peripheral splenic hypodensities up to 2.8 cm may represent splenic infarcts. * GI, on the board, planned for possible EGD on 07/06 * Plan: Follow up with the GI, Protonix GENITOURINARY: NYASIA secondary to hemodynamically mediated/VMN requiring hemodialysis 06/20 (1 session) ? Chronic kidney disease Anemia of CKD * Kidney ultrasound shows Normal sonographic appearance of the kidneys. No hydronephrosis. 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 Critical care time spent more than 63 minutes, including patient care, chart review, and updating the family. Excluding any procedures. Case discussed with Dr. Benjamin Plan discussed with: Other My Orders My Orders Orders - ELISEO GOMEZ RESDIDOMONIQUE Procedure Category Date Status Time Vancomycin,Random LAB 07/07/25 Verified 04:00 Furosemide Injection PHA 07/07/25 In Process (Lasix Injection) 10:00 Complete Blood Count LAB 07/07/25 Verified 04:00 Blood Culture EVELIO 07/06/25 In Process 16:14 Chest Xray 1 View XY 07/07/25 Logged 04:00 Dietary Evaluation Review Comments: 1) If patient remains NPO > 7 days, consider EN/TPN to meet at least 75% of estimated daily needs 2) If gut is preferred, consider Nepro @ 25 mL/hr goal rate as tolerated. Flush with 200 mL free H2O Q6H. TF regimen will provide 1080 kcals, 49g Pro, and 1236 mL free H2O per 24 hrs. TF regimen will meet ~ 92% estimated energy needs and 52% estimated protein needs. 3) Advance to 60g CCHO renal cardiac diet when medically feasible, pending ST approval 4) Refer to outpatient RD/CDCES for weight management 5) Follow-up with cardiology, pulmonology, or nephrology 6) Continue to monitor I&O, labs, and skin integrity Expected Outcomes/Goals: 1) patient to receive nutritional support within 7 days of NPO status 2) labs to improve 3) diet to advance 4) f/u in 2-3 days Sepsis reassessment post fluid Capillary Refill: < 3 seconds Date of Service: Jul 06, 2025 Billing Provider: ELZA BENJAMIN MD Common Visit Codes: [id number] CARE 30-74 MIN ELISEO GOMEZ RESDIDOMONIQUE Jul 06, 2025 18:44 ELZA BENJAMIN MD Jul 07, 2025 14:49
[2025-07-06] MEDS: BISACODYL 10 MG RECT SUPP PR ONE (20:30)
[2025-07-06] MEDS: TPN PER PHARMACY IV NR (20:42)
[2025-07-06] MEDS ORDERED: PANTOPRAZOLE 40 MG/10 ML VIAL INJ IV SCH (22:00)
--- NOTE | 2025-07-06 23:52 | DVHPN2 ---
Progress Note - Dictate Date Seen: Jul 06, 2025 Medical Necessity Reason Pt with a Central, PICC or Fol: Yes The following are medically ne: Central Line, Engel Catheter Subjective Patient was seen and evaluated in follow up in the ICU. Patient is on 3 LPM NC. Patient is complaining of abdominal pain. Patient reports foul smelling stool. Patient is NPO and receiving TPN. WBC 14.8, HGB 8.9, HCT 26.7, BUN 49, AST 88, ALT 62. Prelim blood grew gram positive cocci in clusters. vital signs Vital Sign Date Time Temp Pulse Resp B/P (MAP) Pulse Ox O2 Delivery O2 Flow Rate FiO2 07/06/25 23:00 98 19 135/57 (83) 98 07/06/25 22:00 Nasal Cannula* 4 36 07/06/25 20:00 99.2 99.2 Total Intake and Output 07/05/25 07/05/25 07/06/25 15:00 23:00 07:00 Intake Total 1941.28 ml 2899.62 ml 1888.28 ml Output Total 1075 ml 1625 ml Balance 1941.28 ml 1824.62 ml 263.28 ml medications Current Medications Medications Dose Ordered Sig/Bárbara Route Start Time Stop Time Status Last Admin Dose Admin Ondansetron HCl 4 mg Q4HP PRN IV 06/09/25 01:00 Cancel Ipratropium [place] 0.5 mg Q6HR NEB 06/14/25 10:15 07/06/25 18:19 0.5 MG Levalbuterol HCl 1.25 mg Q6HR NEB 06/15/25 00:00 07/06/25 18:19 1.25 MG Sodium Bicarbonate 75 ml/ Dextrose 1,075 ml @ 700 mls/hr Q1H33M IV 06/16/25 17:15 06/16/25 18:47 Cancel Bumetanide 1 mg BIDD IV 06/17/25 18:00 Cancel Diagnostic Test (Pha) 1 strip Q6HR 06/19/25 00:00 07/06/25 18:04 1 STRIP Insulin Human Regular FOLLOW SLIDING SCALE Q6HR SC 06/19/25 00:00 07/05/25 11:30 2 UNITS Dextrose 50 ml UD IV 06/18/25 22:00 Meropenem 50 ml @ 17 mls/hr DAILY@0100 IV 06/21/25 01:00 Cancel Meropenem 50 ml @ 17 mls/hr Q8H IV 06/27/25 18:00 07/06/25 18:07 17 MLS/HR Sodium Chloride 10 ml QSHIFT@10,22 IV 06/29/25 22:00 07/06/25 20:30 10 ML Amino Acids 0 ml @ 0 mls/hr PER PHARMACY IV 07/03/25 12:45 Amiodarone HCL/ Dextrose 200 ml @ 16.66 mls/ hr Q12H IV 07/03/25 19:00 07/06/25 18:04 16.66 MLS/HR Acetaminophen 1,000 mg Q8H PRN IV 07/03/25 17:30 07/04/25 20:03 1,000 MG Morphine Sulfate 4 mg Q6HPRN PRN IV 07/04/25 15:45 07/06/25 20:53 4 MG Vancomycin HCl 0 ml @ 0 mls/hr UD IV 07/05/25 17:15 Sodium Chloride 20 meq/Potassium Chloride 40 meq/ Potassium Acetate 80 meq/Potassium Phosphate 22 meq/ Calcium Gluconate 2.3 meq/Magnesium Sulfate 10 meq/ Multivitamins 10 ml/Chromium/ Copper/Manganese/ Zinc 1 ml/Amino Acids/Dextrose 1,188.4462 ml @ 50 mls/hr [id number] IV 07/06/25 22:00 07/07/25 21:59 07/06/25 20:42 50 MLS/HR Vancomycin HCl 100 ml @ 100 mls/hr Q12H IV 07/06/25 13:00 UNV Pantoprazole Sodium 50 ml @ 10 mls/hr Q5H IV 07/06/25 14:45 07/06/25 20:30 10 MLS/HR Furosemide 40 mg DAILY IV 07/07/25 10:00 objective GENERAL: Alert and oriented x 3. No acute distress. EYES: PERRL, EOMI. Anicteric. HENT: Moist mucous membranes. LUNGS: Decreased breath sounds. CARDIOVASCULAR: Regular rate and rhythm. ABDOMEN: Soft, nontender and nondistended. EXTREMITIES: No edema. NEUROLOGIC: No focal neurological deficits. SKIN: Warm, dry. laboratory and microbiology Laboratory Tests 07/06/25 03:09 Test 07/06/25 03:09 Range/Units Serum Glucose 118 H 74-106 mg/dL Problem List Chronic HFpEF, NYHA class IV. Paroxysmal atrial fibrillation, stage III, now NSR (on amiodarone/Elqiuis therapy). Severe aortic valve and mitral valve insufficiency. Acute hypoxic respiratory failure. Asthma. Chronic kidney disease. Thyroid disease. Prediabetes, newly diagnosed. Morbid obesity. History of tobacco use. Assessment/Plan Continued all current supportive medical care. IV Amiodarone. GI prophylactics. IV antibiotics as ordered. Morphine for pain management. Additional plan as per the hospital course. Critical care time of 45 minutes provided to include time spent evaluation of patient at bedside, when appropriate patient/family education for diagnosis, treatment plan, review of pertinent medical information and discussion of care with specialty providers and PCP. Dietary Evaluation Review Comments: 1) If patient remains NPO > 7 days, consider EN/TPN to meet at least 75% of estimated daily needs 2) If gut is preferred, consider Nepro @ 25 mL/hr goal rate as tolerated. Flush with 200 mL free H2O Q6H. TF regimen will provide 1080 kcals, 49g Pro, and 1236 mL free H2O per 24 hrs. TF regimen will meet ~ 92% estimated energy needs and 52% estimated protein needs. 3) Advance to 60g CCHO renal cardiac diet when medically feasible, pending ST approval 4) Refer to outpatient RD/CDCES for weight management 5) Follow-up with cardiology, pulmonology, or nephrology 6) Continue to monitor I&O, labs, and skin integrity Expected Outcomes/Goals: 1) patient to receive nutritional support within 7 days of NPO status 2) labs to improve 3) diet to advance 4) f/u in 2-3 days Plan discussed with: Patient Capillary Refill: < 3 seconds URBANO TRUONG MD Jul 06, 2025 23:52
[2025-07-07] VITALS (65 sets, daily range): BP systolic 124–176; BP diastolic 47–73; PULSE 93–110; RESP 15–24; TEMP 98.5–99.7; O2SAT 89–100
[2025-07-07 03:35] LABS: Hematocrit 26.5 % (36.0-46.0); Hemoglobin 8.7 g/dL (12.2-16.2); Mean Corpuscular Hemoglobin 28.1 pg (28.0-32.0); Mean Corpuscular Volume 86.0 fL (80.0-100.0)
[2025-07-07 03:58] LABS: Anion Gap 11 (5-15); BUN/Creatinine Ratio 39.6 (10.0-20.0); Bilirubin, Total 0.3 mg/dL (0.2-1.0); Carbon Dioxide 26 mmol/L (20-31); Chloride 107 mmol/L (98-107); Magnesium 2.0 mg/dL (1.6-2.6); Potassium 4.0 mmol/L (3.5-5.1); Sodium 144 mmol/L (136-145)
[2025-07-07 04:00] LABS: Alanine Aminotransferase 57 U/L (7-40); Albumin 2.3 g/dL (3.2-4.8); Alkaline Phosphatase 130 U/L (46-116); Blood Urea Nitrogen 36 mg/dL (9-23); Calcium 8.0 mg/dL (8.7-10.4); Glucose 146 mg/dL (74-106); Total Protein 5.1 g/dL (5.7-8.2)
[2025-07-07 04:50] LABS: Total Cells Counted 100.0 (100)
[2025-07-07 04:51] LABS: Giant Platelets Few
--- NOTE | 2025-07-07 05:28 | DVH ---
CHEST RADIOGRAPH Indication: Pneumonia Technique: Single frontal view of the chest was obtained Comparison: XY CHEST XRAY 1 VIEW on DOS: 07/06/25 FINDINGS: Lines and Tubes: There is a right PICC with its tip terminating in the superior vena cava. The enteri c tube courses below the left hemidiaphragm and the tip extends outside the field of view. Lungs: Pulmonary vascular congestion is unchanged. Pleura: No effusion. No pneumothorax. Cardiomediastinal contours: Unremarkable Bones: No acute osseous abnormality. IMPRESSION: No significant interval change in pulmonary vascular congestion. Cardiomegaly.
--- NOTE | 2025-07-07 09:04 | DVHPN2 ---
Progress Note Date Seen: Jul 07, 2025 Resident Creating Document: KAMILA MUNOZ RESIDENT Medical Necessity Reason Pt with a Central, PICC or Fol: Yes The following are medically ne: Central Line, Engel Catheter Subjective Review of Systems Patient seen and examined at bedside Minimal ileostomy output at present About 60 cc reddish brown ileostomy output over the past 24 hours Notes some nausea Objective vital signs Vital Sign Date Time Temp Pulse Resp B/P (MAP) Pulse Ox O2 Delivery O2 Flow Rate FiO2 07/07/25 07:00 106 19 134/55 (81) 92 07/07/25 06:29 Nasal Cannula* 3 32 07/07/25 04:00 98.5 98.5 Total Intake and Output 07/06/25 07/06/25 07/07/25 15:00 23:00 07:00 Intake Total 553.28 ml 514.28 ml 664.28 ml Output Total 2485 ml 800 ml Balance 553.28 ml -1970.72 ml -135.72 ml medications Current Medications Medications Dose Ordered Sig/Bárbara Route Start Time Stop Time Status Last Admin Dose Admin Ondansetron HCl 4 mg Q4HP PRN IV 06/09/25 01:00 Cancel Ipratropium [place] 0.5 mg Q6HR NEB 06/14/25 10:15 07/07/25 06:29 0.5 MG Levalbuterol HCl 1.25 mg Q6HR NEB 06/15/25 00:00 07/07/25 06:29 1.25 MG Sodium Bicarbonate 75 ml/ Dextrose 1,075 ml @ 700 mls/hr Q1H33M IV 06/16/25 17:15 06/16/25 18:47 Cancel Bumetanide 1 mg BIDD IV 06/17/25 18:00 Cancel Diagnostic Test (Pha) 1 strip Q6HR 06/19/25 00:00 07/07/25 05:27 1 STRIP Insulin Human Regular FOLLOW SLIDING SCALE Q6HR SC 06/19/25 00:00 07/07/25 04:56 2 UNITS Dextrose 50 ml UD IV 06/18/25 22:00 Meropenem 50 ml @ 17 mls/hr DAILY@0100 IV 06/21/25 01:00 Cancel Meropenem 50 ml @ 17 mls/hr Q8H IV 06/27/25 18:00 07/07/25 02:03 17 MLS/HR Sodium Chloride 10 ml QSHIFT@10,22 IV 06/29/25 22:00 07/06/25 20:30 10 ML Amino Acids 0 ml @ 0 mls/hr PER PHARMACY IV 07/03/25 12:45 Amiodarone HCL/ Dextrose 200 ml @ 16.66 mls/ hr Q12H IV 07/03/25 19:00 07/07/25 01:58 16.66 MLS/HR Acetaminophen 1,000 mg Q8H PRN IV 07/03/25 17:30 07/04/25 20:03 1,000 MG Morphine Sulfate 4 mg Q6HPRN PRN IV 07/04/25 15:45 07/07/25 04:47 4 MG Vancomycin HCl 0 ml @ 0 mls/hr UD IV 07/05/25 17:15 Sodium Chloride 20 meq/Potassium Chloride 40 meq/ Potassium Acetate 80 meq/Potassium Phosphate 22 meq/ Calcium Gluconate 2.3 meq/Magnesium Sulfate 10 meq/ Multivitamins 10 ml/Chromium/ Copper/Manganese/ Zinc 1 ml/Amino Acids/Dextrose 1,188.4462 ml @ 50 mls/hr [id number] IV 07/06/25 22:00 07/07/25 21:59 07/06/25 20:42 50 MLS/HR Vancomycin HCl 100 ml @ 100 mls/hr Q12H IV 07/06/25 13:00 UNV Pantoprazole Sodium 50 ml @ 10 mls/hr Q5H IV 07/06/25 14:45 07/07/25 02:03 10 MLS/HR Furosemide 40 mg DAILY IV 07/07/25 10:00 Examination General Appearance: Somnolent Head Exam: Normal inspection. Constricted equal and reactive pupils Neck Exam: Normal inspection. Non-tender. Normal alignment Pulmonary/Respiratory: Chest non-tender. Trace crackles Abdominal Exam: Normal bowel sounds. Soft. Nontender Skin Exam: Normal inspection. Normal color. Warm. Dry laboratory and microbiology Laboratory Tests 07/07/25 02:55 Test 07/07/25 02:55 Range/Units Serum Glucose 146 H 74-106 mg/dL Microbiology Date/Time Source Procedure Growth Status 07/04/25 14:47 Blood Blood Culture - Preliminary Resulted 06/17/25 07:00 Stool Stool Culture - Final Complete 06/17/25 07:00 Stool Shiga Toxin I & II - Final Complete 06/11/25 14:25 Nose MRSA Screen - Final Complete Labs and/or images reviewed: Labs reviewed by me, Image(s) reviewed by me Problem List/Assessment/Plan Problem List/Assessment/Plan Hematochezia Bleeding in the ileostomy bag Anemia likely due to above Atrial fibrillation with RVR Acute hypoxic respiratory failure S/p ex lap and colectomy 06/17, 06/19 S/p loop ileostomy and drain 06/20 NYASIA VMN on CKD Plan: Protonix drip Continue conservative management Okay to receive tube feedings via NG tube Tentatively scheduled for possible endoscopy on Saturday07/09/2025 keep hemoglobin greater than 7 Thank you so much for the opportunity to consult on your patient. GI team will follow the patient. In case of any questions or concerns please feel free to reach out. Plan discussed with Dr. Lyons Plan discussed with: Other (RN) My Orders My Orders Orders - KAMILA MUNOZ RESIDENT Procedure Category Date Status Time Pantoprazole PHA 07/06/25 In Process 40mg/50ml Ns Ae 14:45 Dietary Evaluation Review Comments: 1) If patient remains NPO > 7 days, consider EN/TPN to meet at least 75% of estimated daily needs 2) If gut is preferred, consider Nepro @ 25 mL/hr goal rate as tolerated. Flush with 200 mL free H2O Q6H. TF regimen will provide 1080 kcals, 49g Pro, and 1236 mL free H2O per 24 hrs. TF regimen will meet ~ 92% estimated energy needs and 52% estimated protein needs. 3) Advance to 60g CCHO renal cardiac diet when medically feasible, pending ST approval 4) Refer to outpatient RD/CDCES for weight management 5) Follow-up with cardiology, pulmonology, or nephrology 6) Continue to monitor I&O, labs, and skin integrity Expected Outcomes/Goals: 1) patient to receive nutritional support within 7 days of NPO status 2) labs to improve 3) diet to advance 4) f/u in 2-3 days Sepsis reassessment post fluid Capillary Refill: < 3 seconds KAMILA MUNOZ RESIDENT Jul 07, 2025 09:04
[2025-07-07] MEDS: FUROSEMIDE 20 MG/2 ML VIAL IV SCH (09:58)
[2025-07-07] MEDS: METOCLOPRAMIDE HCL 5MG/ml INJ 2ml VIAL IV ONE (13:19)
[2025-07-07] MEDS: SUCRALFATE 1 GM/10 ML ORAL SUSP GT SCH (13:19)
[2025-07-07] MEDS: VANCOMYCIN 750MG KIT 100 ML IV SCH (13:19)
--- NOTE | 2025-07-07 14:46 | DVHPN2 ---
Progress Note - Surgical Date Seen: Jul 07, 2025 Post op day Post op day: 20 Subjective Patient reports: Feels better (Patient feeling well no abdominal pain complaints, feeling hungry and wants to eat) Review of Systems: Deferred Objective Vital signs Vital Sign Date Time Temp Pulse Resp B/P (MAP) Pulse Ox O2 Delivery O2 Flow Rate FiO2 07/07/25 13:00 99 19 157/65 (95) 94 07/07/25 12:00 Nasal Cannula* 4 36 07/07/25 12:00 98.9 98.9 Total Intake and Output 07/06/25 07/06/25 07/07/25 15:00 23:00 07:00 Intake Total 553.28 ml 514.28 ml 664.28 ml Output Total 2485 ml 800 ml Balance 553.28 ml -1970.72 ml -135.72 ml Medications Current Medications Medications Dose Ordered Sig/Bárbara Route Start Time Stop Time Status Last Admin Dose Admin Ondansetron HCl 4 mg Q4HP PRN IV 06/09/25 01:00 Cancel Ipratropium [place] 0.5 mg Q6HR NEB 06/14/25 10:15 07/07/25 11:51 0.5 MG Levalbuterol HCl 1.25 mg Q6HR NEB 06/15/25 00:00 07/07/25 11:51 1.25 MG Sodium Bicarbonate 75 ml/ Dextrose 1,075 ml @ 700 mls/hr Q1H33M IV 06/16/25 17:15 06/16/25 18:47 Cancel Bumetanide 1 mg BIDD IV 06/17/25 18:00 Cancel Diagnostic Test (Pha) 1 strip Q6HR 06/19/25 00:00 07/07/25 12:11 1 STRIP Insulin Human Regular FOLLOW SLIDING SCALE Q6HR SC 06/19/25 00:00 07/07/25 12:17 2 UNITS Dextrose 50 ml UD IV 06/18/25 22:00 Meropenem 50 ml @ 17 mls/hr DAILY@0100 IV 06/21/25 01:00 Cancel Meropenem 50 ml @ 17 mls/hr Q8H IV 06/27/25 18:00 07/07/25 11:16 17 MLS/HR Sodium Chloride 10 ml QSHIFT@ IV 06/29/25 22:00 07/07/25 11:15 10 ML Amino Acids 0 ml @ 0 mls/hr PER PHARMACY IV 07/03/25 12:45 Amiodarone HCL/ Dextrose 200 ml @ 16.66 mls/ hr Q12H IV 07/03/25 19:00 07/07/25 01:58 16.66 MLS/HR Acetaminophen 1,000 mg Q8H PRN IV 07/03/25 17:30 07/04/25 20:03 1,000 MG Morphine Sulfate 4 mg Q6HPRN PRN IV 07/04/25 15:45 07/07/25 11:19 4 MG Vancomycin HCl 0 ml @ 0 mls/hr UD IV 07/05/25 17:15 Sodium Chloride 20 meq/Potassium Chloride 40 meq/ Potassium Acetate 80 meq/Potassium Phosphate 22 meq/ Calcium Gluconate 2.3 meq/Magnesium Sulfate 10 meq/ Multivitamins 10 ml/Chromium/ Copper/Manganese/ Zinc 1 ml/Amino Acids/Dextrose 1,188.4462 ml @ 50 mls/hr [id number] IV 07/06/25 22:00 07/07/25 21:59 07/06/25 20:42 50 MLS/HR Vancomycin HCl 100 ml @ 100 mls/hr Q12H IV 07/06/25 13:00 UNV Pantoprazole Sodium 50 ml @ 10 mls/hr Q5H IV 07/06/25 14:45 07/07/25 10:45 10 MLS/HR Furosemide 40 mg DAILY IV 07/07/25 10:00 07/07/25 09:58 40 MG Sucralfate 1 gm TID@0600,1130,2200 GT 07/07/25 11:30 07/07/25 13:19 1 GM Potassium Acetate 100 meq/Potassium Phosphate 44 meq/ Magnesium Sulfate 14 meq/ Multivitamins 10 ml/Chromium/ Copper/Manganese/ Zinc 1 ml/Amino Acids/Dextrose/ Fat Emulsion Intravenous 1,474.5 ml @ 61 mls/hr [id number] IV 07/07/25 22:00 07/08/25 21:59 Vancomycin HCl 100 ml @ 100 mls/hr Q12H IV 07/07/25 13:00 07/07/25 13:19 100 MLS/HR Laboratory Laboratory Tests 07/07/25 02:55 Test 07/07/25 02:55 Range/Units Serum Glucose 146 H 74-106 mg/dL Microbiology Date/Time Source Procedure Growth Status 07/04/25 14:47 Blood Blood Culture - Final Staphylococcus epidermidis Complete 06/17/25 07:00 Stool Stool Culture - Final Complete 06/17/25 07:00 Stool Shiga Toxin I & II - Final Complete 06/11/25 14:25 Nose MRSA Screen - Final Complete Examination: GENERAL:Normal, ABDOMEN:Normal (Nondistended, soft, depressible, midline wound with wound VAC placed and no surrounding signs of infection, my lower quadrant ileostomy with pink mucosa and bloody stool in bag, very mild upper abdominal tenderness no rebound, no guarding) Labs and/or images reviewed: Labs reviewed by me (Leukocytosis down trending 13.5 from 14.8, hemoglobin 8.7 from 8.9 (patient got a unit yesterday)), Image(s) reviewed by me (Left-sided pleural effusion) Problem List/Assessment/Plan Assessment and Plan Mrs. Penaloza is a 54-year-old female who has been in the hospital since June 08 due to pneumonia and CHF exacerbation that resulted in intubation. I was consulted on 06/17 due to severe colonic distention and pneumatosis seen on CT from that day. She ended receiving a subtotal colectomy colectomy, with primary ileocolic anastomosis and protective loop ileostomy. Interval: Patient continues to have blood per ostomy, she required 1 unit yesterday, none today, hemoglobin today 8.7 from 8.9. GI currently following the patient. I recommended sucralfate to protect any ulcer base along with continuing IV PPIs. Surgeries: 06/17: Exploratory laparotomy, subtotal colectomy (resection of ascending and transverse colon), temporary abdominal closure 06/19: Exploratory laparotomy, takedown of temporary abdominal dressing, wash out, resection of descending colon 06/20: Exploratory laparotomy, takedown of temporary abdominal dressing, washout, ileocolic anastomosis, protective loop ileostomy, drain placement x2, fascial closure 1. Okay for p.o. diet, pending GI evaluation 2. Recommend obtaining bilateral lower extremity ultrasounds for DVT, given the right iliac thrombus. 3. Given that the patient is having GI bleeding, and DVT prophylaxis has been held; Recommend obtaining IR consultation for possible IVC filter , given that the patient is not ambulatory. 4. Continue with TPN, she was malnourished, and she has not eaten anything significant since extubation 5. Hold DVT prophylaxis 6. Wound VAC for midline wound 7. Recommend continuation of IV antibiotics for a total of 7 days from the last surgery on 06/20 8. Physical therapy consultation Plan discussed with Plan discussed with: Patient Visit Coding Surgery Date of Service if different f: Jul 07, 2025 Billing Provider: SONAM ALCARAZ MD Surgery Visit Codes: [id number] INP/OBS CARE(HIGH) SONAM ALCARAZ MD Jul 07, 2025 14:46
--- NOTE | 2025-07-07 15:51 | DVHPNRES ---
Progress Note Date Seen: Jul 07, 2025 Resident Creating Document: ELISEO GOMEZ RESDIENT Medical Necessity Reason Pt with a Central, PICC or Fol: Yes The following are medically ne: Central Line, Engel Catheter Subjective Review of Systems Patient seen and examined at the bedside. Patient has abdominal pain, and has black discharged from ileostomy. Objective vital signs Vital Sign Date Time Temp Pulse Resp B/P (MAP) Pulse Ox O2 Delivery O2 Flow Rate FiO2 07/07/25 13:00 99 19 157/65 (95) 94 07/07/25 12:00 Nasal Cannula* 4 36 07/07/25 12:00 98.9 98.9 Total Intake and Output 07/06/25 07/06/25 07/07/25 15:00 23:00 07:00 Intake Total 553.28 ml 514.28 ml 664.28 ml Output Total 2485 ml 800 ml Balance 553.28 ml -1970.72 ml -135.72 ml medications Current Medications Medications Dose Ordered Sig/Bárbara Route Start Time Stop Time Status Last Admin Dose Admin Ondansetron HCl 4 mg Q4HP PRN IV 06/09/25 01:00 Cancel Ipratropium [place] 0.5 mg Q6HR NEB 06/14/25 10:15 07/07/25 11:51 0.5 MG Levalbuterol HCl 1.25 mg Q6HR NEB 06/15/25 00:00 07/07/25 11:51 1.25 MG Sodium Bicarbonate 75 ml/ Dextrose 1,075 ml @ 700 mls/hr Q1H33M IV 06/16/25 17:15 06/16/25 18:47 Cancel Bumetanide 1 mg BIDD IV 06/17/25 18:00 Cancel Diagnostic Test (Pha) 1 strip Q6HR 06/19/25 00:00 07/07/25 12:11 1 STRIP Insulin Human Regular FOLLOW SLIDING SCALE Q6HR SC 06/19/25 00:00 07/07/25 12:17 2 UNITS Dextrose 50 ml UD IV 06/18/25 22:00 Meropenem 50 ml @ 17 mls/hr DAILY@0100 IV 06/21/25 01:00 Cancel Meropenem 50 ml @ 17 mls/hr Q8H IV 06/27/25 18:00 07/07/25 11:16 17 MLS/HR Sodium Chloride 10 ml QSHIFT@10,22 IV 06/29/25 22:00 07/07/25 11:15 10 ML Amino Acids 0 ml @ 0 mls/hr PER PHARMACY IV 07/03/25 12:45 Amiodarone HCL/ Dextrose 200 ml @ 16.66 mls/ hr Q12H IV 07/03/25 19:00 07/07/25 01:58 16.66 MLS/HR Acetaminophen 1,000 mg Q8H PRN IV 07/03/25 17:30 07/04/25 20:03 1,000 MG Morphine Sulfate 4 mg Q6HPRN PRN IV 07/04/25 15:45 07/07/25 11:19 4 MG Vancomycin HCl 0 ml @ 0 mls/hr UD IV 07/05/25 17:15 Sodium Chloride 20 meq/Potassium Chloride 40 meq/ Potassium Acetate 80 meq/Potassium Phosphate 22 meq/ Calcium Gluconate 2.3 meq/Magnesium Sulfate 10 meq/ Multivitamins 10 ml/Chromium/ Copper/Manganese/ Zinc 1 ml/Amino Acids/Dextrose 1,188.4462 ml @ 50 mls/hr [id number] IV 07/06/25 22:00 07/07/25 21:59 07/06/25 20:42 50 MLS/HR Vancomycin HCl 100 ml @ 100 mls/hr Q12H IV 07/06/25 13:00 UNV Pantoprazole Sodium 50 ml @ 10 mls/hr Q5H IV 07/06/25 14:45 07/07/25 10:45 10 MLS/HR Furosemide 40 mg DAILY IV 07/07/25 10:00 07/07/25 09:58 40 MG Sucralfate 1 gm TID@0600,1130,2200 GT 07/07/25 11:30 07/07/25 13:19 1 GM Potassium Acetate 100 meq/Potassium Phosphate 44 meq/ Magnesium Sulfate 14 meq/ Multivitamins 10 ml/Chromium/ Copper/Manganese/ Zinc 1 ml/Amino Acids/Dextrose/ Fat Emulsion Intravenous 1,474.5 ml @ 61 mls/hr [id number] IV 07/07/25 22:00 07/08/25 21:59 Vancomycin HCl 100 ml @ 100 mls/hr Q12H IV 07/07/25 13:00 07/07/25 13:19 100 MLS/HR Examination General Appearance: Alert, Oriented X3, in moderate respiratory distress HEENT: Atraumatic, PERRLA, EOMI, Mucous membrane moist/pink Respiratory: Bilateral crackles Cardiovascular: Regular rate, Normal S1, Normal S2, No murmurs, no chest wall tenderness Abdominal: Normal bowel sounds, Soft, No tenderness, No hepatospenomegaly, No masses Extremities: No clubbing, No cyanosis, No edema, Normal pulses, No tenderness/swelling Skin: Wound VAC on the surgical area, with no sign of infection or drainage laboratory and microbiology Laboratory Tests 07/07/25 02:55 Test 07/07/25 02:55 Range/Units Serum Glucose 146 H 74-106 mg/dL Microbiology Date/Time Source Procedure Growth Status 07/04/25 14:47 Blood Blood Culture - Final Staphylococcus epidermidis Complete 06/17/25 07:00 Stool Stool Culture - Final Complete 06/17/25 07:00 Stool Shiga Toxin I & II - Final Complete 06/11/25 14:25 Nose MRSA Screen - Final Complete Labs and/or images reviewed: Labs reviewed by me, Image(s) reviewed by me Problem List/Assessment/Plan Problem List/Assessment/Plan This is a 54-year-old female with past medical history of HFpEF, paroxysmal AFib, severe TR, severe MR, prediabetic, asthma, CKD 3A, morbid obesity, came to ER due to shortness of breaths, cough and bilateral lower limb swelling for 2 weeks. Admitted on 06/09, put on BiPAP but the patient's condition worsened and got intubated on 06/11. Extubated on 06/26. NEURO: * Extubated on 06/26 CARDIOVASCULAR: Acute on chronic diastolic heart failure exacerbation Paroxysmal Atrial fibrillation with RVR Pulmonary edema due to heart failure Severe aortic insufficiency, mitral valve insufficiency, tricuspid regurg Acquired coagulopathy * Chads Vasc: 2 * Per Cardiology:patient underwent a transesophageal echocardiogram on 03/26/2025 which revealed an EF of 60% with severe aortic insufficiency and with moderate mitral insufficiency. * We will recommend to continue antiarrhythmic therapy with amiodarone, DOAC therapy with Eliquis, and beta-octavio for rate control . * Outpatient follow up with Dr. Melo in [place] for aortic valve replacement with possible TAVR as well as possible mitral clip. * Plan: Lasix 40 IV daily, amiodarone drip PULMONARY: Acute hypoxic respiratory failure, likely due to pneumonia/COPD exacerbation/asthma exacerbation COPD on 4 L at home Hx of Pna and intubation 2022 Sepsis secondary to Acute Gram-positive and Gram-negative pneumonia Likely COPD on 4L home O2 History of asthma * Plan: Continue IV Abx, and breathing treatment GASTROINTESTINAL: Pneumatosis intestinalis and megacolon likely ischemic bowel Perforation and peritonitis Status s/p laparotomy, subtotal colectomy (ascending and transfer) 06/17, resection of descending colon 06/19, ileocolic anastomosis with protective loop ileostomy, drain placement 06/20 Transaminitis, 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 Evidence of portal venous gas * liver ultrasound shows hepatic steatosis * Surgeon - wound VAC for midline * Today 07/02, the patient got abdominal pain, subsequently developed bleeding from ileostomy and rectal (almost 500 mL). Patient was evaluated by surgeon at the bedside, evaluated the ileostomy, digitize both ileostomy, both patent. Recommended GI evaluation and possible scope, consulted GI, an updated the on-call doctor on phone, reports that she will, and we will assess at the bedside for possible scope. * Abdominal CT 07/05, Bowel wall edema and thickening of the small bowel loops most pronounced in the left abdomen which can be secondary to enteritis, inflammatory bowel disease. No pneumatosis identified.Peripheral splenic hypodensities up to 2.8 cm may represent splenic infarcts. * GI, on the board, planned for possible EGD on 07/06 * Plan: Follow up with the GI, Protonix drip, tentative plan for endoscopy on 07/09 GENITOURINARY: NYASIA secondary to hemodynamically mediated/VMN requiring hemodialysis 06/20 (1 session) ? Chronic kidney disease Anemia of CKD * Kidney ultrasound shows Normal sonographic appearance of the kidneys. No hydronephrosis. 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 Critical care time spent more than 63 minutes, including patient care, chart review, and updating the family. Excluding any procedures. Case discussed with Dr. Benjamin Plan discussed with: Other My Orders My Orders Orders - ELISEO GOMEZ RESDIENT Procedure Category Date Status Time Furosemide Injection PHA 07/07/25 In Process (Lasix Injection) 10:00 Blood Culture EVELIO 07/06/25 In Process 16:14 Chest Xray 1 View XY 07/07/25 Resulted 04:00 Sucralfate Susp PHA 07/07/25 In Process (Carafate Susp) 11:30 Vancomycin 750mg Kit PHA 07/07/25 In Process (Vancomycin Hcl) 13:00 Vancomycin Per DEANDAR 07/07/25 In Process Pharmacy Protoc 10:39 Vancomycin,Trough LAB 07/09/25 Verified 00:00 Rt Upper Dvt US 07/07/25 Taken 14:03 Nutritional PHA 07/07/25 Transmitted Supplements (Nepro 16:00 Complete Blood Count LAB 07/08/25 Verified 04:00 Dietary Evaluation Review Comments: 1) If patient remains NPO > 7 days, consider EN/TPN to meet at least 75% of estimated daily needs 2) If gut is preferred, consider Nepro @ 25 mL/hr goal rate as tolerated. Flush with 200 mL free H2O Q6H. TF regimen will provide 1080 kcals, 49g Pro, and 1236 mL free H2O per 24 hrs. TF regimen will meet ~ 92% estimated energy needs and 52% estimated protein needs. 3) Advance to 60g CCHO renal cardiac diet when medically feasible, pending ST approval 4) Refer to outpatient RD/CDCES for weight management 5) Follow-up with cardiology, pulmonology, or nephrology 6) Continue to monitor I&O, labs, and skin integrity Expected Outcomes/Goals: 1) patient to receive nutritional support within 7 days of NPO status 2) labs to improve 3) diet to advance 4) f/u in 2-3 days Sepsis reassessment post fluid Capillary Refill: < 3 seconds Date of Service: Jul 07, 2025 Billing Provider: ELZA BENJAMIN MD Common Visit Codes: [id number] CARE 30-74 MIN ELISEO GOMEZ Jul 07, 2025 15:51 ELZA BENJAMIN MD Jul 08, 2025 11:37
--- NOTE | 2025-07-07 16:00 | DVH ---
Technique: Real-time ultrasound imaging, with color Doppler and compression of the right upper extr emity vein Indication: Rule out DVT Comparison: US LT UPPER DVT on DOS: 06/22/25 Findings: The right internal jugular, subclavian, axillary, basilic, radial, ulnar veins demonstrate no filling defect. There is right upper extremity soft tissue edema. PICC line noted in the right axillary vei n. Right cephalic vein nonvisualized Impression: No evidence of DVT in the right upper extremity
[2025-07-07] MEDS: Nepro With Carb Steady 1 Liter Bottle GT SCH (20:12)
[2025-07-07] MEDS: TPN PER PHARMACY IV NR (20:50)
--- NOTE | 2025-07-07 23:59 | DVHPN2 ---
Progress Note - Dictate Date Seen: Jul 07, 2025 Medical Necessity Reason Pt with a Central, PICC or Fol: Yes The following are medically ne: Central Line, Engel Catheter Subjective Patient was seen and evaluated in follow up in the ICU. Patient is on 4 LPM NC. Patient is complaining of abdominal pain/nausea. WBC 13.5, HGB 8.7, HCT 26.5, BUN 36, CA 8, AST 71, ALT 57. Chest x-ray shows cardiomegaly. RUE Venous Doppler showed no evidence of DVT in the right upper extremity. vital signs Vital Sign Date Time Temp Pulse Resp B/P (MAP) Pulse Ox O2 Delivery O2 Flow Rate FiO2 07/07/25 16:00 98.7 96 17 124/51 (75) 95 98.7 07/07/25 16:00 Nasal Cannula* 4 36 Total Intake and Output 07/06/25 07/06/25 07/07/25 15:00 23:00 07:00 Intake Total 553.28 ml 514.28 ml 664.28 ml Output Total 2485 ml 800 ml Balance 553.28 ml -1970.72 ml -135.72 ml medications Current Medications Medications Dose Ordered Sig/Bárbara Route Start Time Stop Time Status Last Admin Dose Admin Ondansetron HCl 4 mg Q4HP PRN IV 06/09/25 01:00 Cancel Ipratropium [place] 0.5 mg Q6HR NEB 06/14/25 10:15 07/07/25 11:51 0.5 MG Levalbuterol HCl 1.25 mg Q6HR NEB 06/15/25 00:00 07/07/25 11:51 1.25 MG Sodium Bicarbonate 75 ml/ Dextrose 1,075 ml @ 700 mls/hr Q1H33M IV 06/16/25 17:15 06/16/25 18:47 Cancel Bumetanide 1 mg BIDD IV 06/17/25 18:00 Cancel Diagnostic Test (Pha) 1 strip Q6HR 06/19/25 00:00 07/07/25 12:11 1 STRIP Insulin Human Regular FOLLOW SLIDING SCALE Q6HR SC 06/19/25 00:00 07/07/25 12:17 2 UNITS Dextrose 50 ml UD IV 06/18/25 22:00 Meropenem 50 ml @ 17 mls/hr DAILY@0100 IV 06/21/25 01:00 Cancel Meropenem 50 ml @ 17 mls/hr Q8H IV 06/27/25 18:00 07/07/25 11:16 17 MLS/HR Sodium Chloride 10 ml QSHIFT@10,22 IV 06/29/25 22:00 07/07/25 11:15 10 ML Amino Acids 0 ml @ 0 mls/hr PER PHARMACY IV 07/03/25 12:45 Amiodarone HCL/ Dextrose 200 ml @ 16.66 mls/ hr Q12H IV 07/03/25 19:00 07/07/25 01:58 16.66 MLS/HR Acetaminophen 1,000 mg Q8H PRN IV 07/03/25 17:30 07/04/25 20:03 1,000 MG Morphine Sulfate 4 mg Q6HPRN PRN IV 07/04/25 15:45 07/07/25 11:19 4 MG Vancomycin HCl 0 ml @ 0 mls/hr UD IV 07/05/25 17:15 Sodium Chloride 20 meq/Potassium Chloride 40 meq/ Potassium Acetate 80 meq/Potassium Phosphate 22 meq/ Calcium Gluconate 2.3 meq/Magnesium Sulfate 10 meq/ Multivitamins 10 ml/Chromium/ Copper/Manganese/ Zinc 1 ml/Amino Acids/Dextrose 1,188.4462 ml @ 50 mls/hr [id number] IV 07/06/25 22:00 07/07/25 21:59 07/06/25 20:42 50 MLS/HR Vancomycin HCl 100 ml @ 100 mls/hr Q12H IV 07/06/25 13:00 UNV Pantoprazole Sodium 50 ml @ 10 mls/hr Q5H IV 07/06/25 14:45 07/07/25 10:45 10 MLS/HR Furosemide 40 mg DAILY IV 07/07/25 10:00 07/07/25 09:58 40 MG Sucralfate 1 gm TID@0600,1130,2200 GT 07/07/25 11:30 07/07/25 13:19 1 GM Potassium Acetate 100 meq/Potassium Phosphate 44 meq/ Magnesium Sulfate 14 meq/ Multivitamins 10 ml/Chromium/ Copper/Manganese/ Zinc 1 ml/Amino Acids/Dextrose/ Fat Emulsion Intravenous 1,474.5 ml @ 61 mls/hr [id number] IV 07/07/25 22:00 07/08/25 21:59 Vancomycin HCl 100 ml @ 100 mls/hr Q12H IV 07/07/25 13:00 07/07/25 13:19 100 MLS/HR Enteral Nutritional Formula 1,000 ml 30ML/HR GT 07/07/25 16:00 objective GENERAL: Alert and oriented x 3. No acute distress. EYES: PERRL, EOMI. Anicteric. HENT: Moist mucous membranes. LUNGS: Decreased breath sounds. CARDIOVASCULAR: Regular rate and rhythm. ABDOMEN: Soft, nontender and nondistended. EXTREMITIES: No edema. NEUROLOGIC: No focal neurological deficits. SKIN: Warm, dry. laboratory and microbiology Laboratory Tests 07/07/25 02:55 Test 07/07/25 02:55 Range/Units Serum Glucose 146 H 74-106 mg/dL Problem List Chronic HFpEF, NYHA class IV. Paroxysmal atrial fibrillation, stage III, now NSR (on amiodarone/Elqiuis therapy). Severe aortic valve and mitral valve insufficiency. Acute hypoxic respiratory failure. Asthma. Chronic kidney disease. Thyroid disease. Prediabetes, newly diagnosed. Morbid obesity. History of tobacco use. Assessment/Plan Continued all current supportive medical care. IV Amiodarone. Diuretics with Lasix. IV antibiotics as ordered. Morphine for pain management. Nebulized breathing treatments. Additional plan as per the hospital course. Critical care time of 45 minutes provided to include time spent evaluation of patient at bedside, when appropriate patient/family education for diagnosis, treatment plan, review of pertinent medical information and discussion of care with specialty providers and PCP. Dietary Evaluation Review Comments: 1) If patient remains NPO > 7 days, consider EN/TPN to meet at least 75% of estimated daily needs 2) If gut is preferred, consider Nepro @ 25 mL/hr goal rate as tolerated. Flush with 200 mL free H2O Q6H. TF regimen will provide 1080 kcals, 49g Pro, and 1236 mL free H2O per 24 hrs. TF regimen will meet ~ 92% estimated energy needs and 52% estimated protein needs. 3) Advance to 60g CCHO renal cardiac diet when medically feasible, pending ST approval 4) Refer to outpatient RD/CDCES for weight management 5) Follow-up with cardiology, pulmonology, or nephrology 6) Continue to monitor I&O, labs, and skin integrity Expected Outcomes/Goals: 1) patient to receive nutritional support within 7 days of NPO status 2) labs to improve 3) diet to advance 4) f/u in 2-3 days Plan discussed with: Patient Capillary Refill: < 3 seconds URBANO TRUONG MD Jul 07, 2025 17:34
[2025-07-08] VITALS (31 sets, daily range): BP systolic 124–162; BP diastolic 46–74; PULSE 77–107; RESP 13–20; TEMP 98.2–99.8; O2SAT 88–100
[2025-07-08 03:51] LABS: Hematocrit 25.1 % (36.0-46.0); Hemoglobin 8.3 g/dL (12.2-16.2); Mean Corpuscular Hemoglobin 28.3 pg (28.0-32.0); Mean Corpuscular Volume 85.6 fL (80.0-100.0)
[2025-07-08 04:07] LABS: Anion Gap 11 (5-15); BUN/Creatinine Ratio 38.0 (10.0-20.0); Carbon Dioxide 27 mmol/L (20-31); Chloride 103 mmol/L (98-107); Glucose 93 mg/dL (74-106); Potassium 4.0 mmol/L (3.5-5.1); Sodium 141 mmol/L (136-145)
[2025-07-08 04:08] LABS: Bilirubin, Total 0.3 mg/dL (0.2-1.0)
[2025-07-08 04:21] LABS: Alanine Aminotransferase 60 U/L (7-40); Albumin 2.2 g/dL (3.2-4.8); Alkaline Phosphatase 132 U/L (46-116); Blood Urea Nitrogen 35 mg/dL (9-23); Calcium 7.9 mg/dL (8.7-10.4); Magnesium 1.5 mg/dL (1.6-2.6); Total Protein 5.0 g/dL (5.7-8.2)
[2025-07-08 04:56] LABS: Total Cells Counted 100.0 (100)
--- NOTE | 2025-07-08 09:29 | DVHPN2 ---
Progress Note Date Seen: Jul 08, 2025 Resident Creating Document: KAMILA MUNOZ RESIDENT Medical Necessity Reason Pt with a Central, PICC or Fol: Yes The following are medically ne: Central Line, Engel Catheter Subjective Review of Systems Patient seen and examined at bedside Reports feeling tired and nauseous With overnight 120 cc tarry black ileostomy output emptied at 5:00 a.m. At the time of my assessment, approximately 50 cc tarry black output in the ileostomy noted. Objective vital signs Vital Sign Date Time Temp Pulse Resp B/P (MAP) Pulse Ox O2 Delivery O2 Flow Rate FiO2 07/08/25 07:04 95 16 99 07/08/25 07:00 153/56 (88) 07/08/25 06:58 Nasal Cannula* 3 32 07/08/25 04:00 99.8 99.8 Total Intake and Output 07/07/25 07/07/25 07/08/25 15:00 23:00 07:00 Intake Total 713.28 ml 539.28 ml 426.28 ml Output Total 2000 ml 895 ml Balance 713.28 ml -1460.72 ml -468.72 ml medications Current Medications Medications Dose Ordered Sig/Bárbara Route Start Time Stop Time Status Last Admin Dose Admin Ondansetron HCl 4 mg Q4HP PRN IV 06/09/25 01:00 Cancel Ipratropium [place] 0.5 mg Q6HR NEB 06/14/25 10:15 07/08/25 06:58 0.5 MG Levalbuterol HCl 1.25 mg Q6HR NEB 06/15/25 00:00 07/08/25 06:58 1.25 MG Sodium Bicarbonate 75 ml/ Dextrose 1,075 ml @ 700 mls/hr Q1H33M IV 06/16/25 17:15 06/16/25 18:47 Cancel Bumetanide 1 mg BIDD IV 06/17/25 18:00 Cancel Diagnostic Test (Pha) 1 strip Q6HR 06/19/25 00:00 07/08/25 04:34 1 STRIP Insulin Human Regular FOLLOW SLIDING SCALE Q6HR SC 06/19/25 00:00 07/07/25 12:17 2 UNITS Dextrose 50 ml UD IV 06/18/25 22:00 Meropenem 50 ml @ 17 mls/hr DAILY@0100 IV 06/21/25 01:00 Cancel Meropenem 50 ml @ 17 mls/hr Q8H IV 06/27/25 18:00 07/08/25 02:52 17 MLS/HR Sodium Chloride 10 ml QSHIFT@10,22 IV 06/29/25 22:00 07/07/25 20:50 10 ML Amino Acids 0 ml @ 0 mls/hr PER PHARMACY IV 07/03/25 12:45 Amiodarone HCL/ Dextrose 200 ml @ 16.66 mls/ hr Q12H IV 07/03/25 19:00 07/07/25 23:15 16.66 MLS/HR Acetaminophen 1,000 mg Q8H PRN IV 07/03/25 17:30 07/04/25 20:03 1,000 MG Morphine Sulfate 4 mg Q6HPRN PRN IV 07/04/25 15:45 07/08/25 02:53 4 MG Vancomycin HCl 0 ml @ 0 mls/hr UD IV 07/05/25 17:15 Vancomycin HCl 100 ml @ 100 mls/hr Q12H IV 07/06/25 13:00 UNV Pantoprazole Sodium 50 ml @ 10 mls/hr Q5H IV 07/06/25 14:45 07/08/25 04:29 10 MLS/HR Furosemide 40 mg DAILY IV 07/07/25 10:00 07/07/25 09:58 40 MG Sucralfate 1 gm TID@0600,1130,2200 GT 07/07/25 11:30 07/08/25 04:35 1 GM Potassium Acetate 100 meq/Potassium Phosphate 44 meq/ Magnesium Sulfate 14 meq/ Multivitamins 10 ml/Chromium/ Copper/Manganese/ Zinc 1 ml/Amino Acids/Dextrose/ Fat Emulsion Intravenous 1,474.5 ml @ 61 mls/hr [id number] IV 07/07/25 22:00 07/08/25 21:59 Vancomycin HCl 100 ml @ 100 mls/hr Q12H IV 07/07/25 13:00 07/08/25 01:09 100 MLS/HR Enteral Nutritional Formula 1,000 ml 30ML/HR GT 07/07/25 16:00 07/07/25 20:12 1,000 ML Magnesium Sulfate/ Dextrose 100 ml @ 100 mls/hr Q1HR IV 07/08/25 09:00 07/08/25 10:59 Fat Emulsion Intravenous 100 ml/Sodium Phosphate 10 meq/ Potassium Chloride 40 meq/ Potassium Acetate 80 meq/Potassium Phosphate 44 meq/ Magnesium Sulfate 20 meq/ Multivitamins 10 ml/Chromium/ Copper/Manganese/ Zinc 1 ml/Amino Acids/Dextrose 1,538.5 ml @ 65 mls/hr [id number] IV 07/08/25 22:00 07/09/25 21:59 Examination General Appearance: Somnolent Head Exam: Normal inspection. Constricted equal and reactive pupils Neck Exam: Normal inspection. Non-tender. Normal alignment Pulmonary/Respiratory: Chest non-tender. Trace crackles Abdominal Exam: Normal bowel sounds. Soft. Nontender Skin Exam: Normal inspection. Normal color. Warm. Dry laboratory and microbiology Laboratory Tests 07/08/25 03:02 Test 07/08/25 03:02 Range/Units Serum Glucose 93 74-106 mg/dL Microbiology Date/Time Source Procedure Growth Status 07/06/25 17:00 Blood Blood Culture - Preliminary NO GROWTH AFTER 24 HOURS OF INCUBATION. Resulted 06/17/25 07:00 Stool Stool Culture - Final Complete 06/17/25 07:00 Stool Shiga Toxin I & II - Final Complete 06/11/25 14:25 Nose MRSA Screen - Final Complete Labs and/or images reviewed: Labs reviewed by me, Image(s) reviewed by me Problem List/Assessment/Plan Problem List/Assessment/Plan Hematochezia Bleeding in the ileostomy bag Anemia likely due to above Atrial fibrillation with RVR Acute hypoxic respiratory failure S/p ex lap and colectomy 06/17, 06/19 S/p loop ileostomy and drain 06/20 NYASIA VMN on CKD Plan: Scheduled for endoscopy tomorrow on 07/09/2025 Protonix drip Continue conservative management Okay to receive tube feedings via NG tube keep hemoglobin greater than 7 Thank you so much for the opportunity to consult on your patient. GI team will follow the patient. In case of any questions or concerns please feel free to reach out. Plan discussed with Dr. Lyons Plan discussed with: Patient, Other (Mother, RN) Dietary Evaluation Review Comments: 1) If patient remains NPO > 7 days, consider EN/TPN to meet at least 75% of estimated daily needs 2) If gut is preferred, consider Nepro @ 25 mL/hr goal rate as tolerated. Flush with 200 mL free H2O Q6H. TF regimen will provide 1080 kcals, 49g Pro, and 1236 mL free H2O per 24 hrs. TF regimen will meet ~ 92% estimated energy needs and 52% estimated protein needs. 3) Advance to 60g CCHO renal cardiac diet when medically feasible, pending ST approval 4) Refer to outpatient RD/CDCES for weight management 5) Follow-up with cardiology, pulmonology, or nephrology 6) Continue to monitor I&O, labs, and skin integrity Expected Outcomes/Goals: 1) patient to receive nutritional support within 7 days of NPO status 2) labs to improve 3) diet to advance 4) f/u in 2-3 days Sepsis reassessment post fluid Capillary Refill: < 3 seconds KAMILA MUNOZ RESIDENT Jul 08, 2025 09:29
[2025-07-08] MEDS: MAGNESIUM SULFATE 1GM/100ML 100 ML IV SCH (09:46)
--- NOTE | 2025-07-08 13:33 | MEDREC ---
[facility] Intervention Section I [facility] ASP Intervention: Dose optimization(PK/PD) (CRCL 11 to 29 ( patient's CrCl = 27.2) reduce cefepime dose to 1G IV Q24. Consider reducing dose of cefepime to 1G IV Q12 or Q24H), Review courses of therapy (Consider de-escalating antibiotic therapy once patient is stable) ABDULLAHI BENAVIDEZ [facility] RESIDENT Jul 08, 2025 13:33
--- NOTE | 2025-07-08 17:07 | DVH ---
CT HEAD WITHOUT CONTRAST, CT CERVICAL WITHOUT CONTRAST Indication: right arm weakness EXAM DATE: 07/08/2025 04:31 PM COMPARISON: CT HEAD WITHOUT CONTRAST on DOS: 04/25/25, CT HEAD WITHOUT CONTRAST on DOS: 06/10/24 TECHNIQUE: CT of the head without intravenous contrast. RADIATION DOSE: CTDIvol: 58.11 mGy, DLP: 1014 mGy*cm FINDINGS: There is no intracranial hemorrhage. There is no extra-axial fluid, mass, mass effect or midline shif t. The ventricles are midline and normal in size. Basilar cisterns are patent. Old right basal gangli a lacunar infarct. The paranasal sinuses are well pneumatized. Small bilateral mastoid effusions. Imaged portion of the orbits are unremarkable. Cervical heights maintained. Moderate multilevel disc space narrowing most pronounced at C5-6.2 mm a nterolisthesis C4 upon C5. Cervical levocurvature [id number] facet hypertrophic changes. Nasogastric tube is noted. Imaged lung apices demonstrate bilateral airspace consolidation. IMPRESSION: No intracranial hemorrhage or mass effect. Old right basal ganglia lacunar infarct. Moderate cervical degenerative disc disease. Bilateral mastoid effusions. Bilateral pulmonary airspace consolidation within the imaged portions of the upper lungs.
--- NOTE | 2025-07-08 19:38 | DVHPNRES ---
Progress Note Date Seen: Jul 08, 2025 Resident Creating Document: ELISEO GOMEZ RESDIENT Medical Necessity Reason Pt with a Central, PICC or Fol: Yes The following are medically ne: Central Line, Engel Catheter Subjective Review of Systems Patient seen and examined at the bedside. Patient has abdominal pain, and has black discharged from ileostomy. Objective vital signs Vital Sign Date Time Temp Pulse Resp B/P (MAP) Pulse Ox O2 Delivery O2 Flow Rate FiO2 07/08/25 19:20 95 Nasal Cannula* 3 32 07/08/25 19:20 94 14 07/08/25 18:00 155/62 (93) 07/08/25 16:00 98.2 98.2 Total Intake and Output 07/07/25 07/07/25 07/08/25 15:00 23:00 07:00 Intake Total 713.28 ml 539.28 ml 452.94 ml Output Total 2000 ml 895 ml Balance 713.28 ml -1460.72 ml -442.06 ml medications Current Medications Medications Dose Ordered Sig/Bárbara Route Start Time Stop Time Status Last Admin Dose Admin Ondansetron HCl 4 mg Q4HP PRN IV 06/09/25 01:00 Cancel Ipratropium [place] 0.5 mg Q6HR NEB 06/14/25 10:15 07/08/25 19:20 0.5 MG Levalbuterol HCl 1.25 mg Q6HR NEB 06/15/25 00:00 07/08/25 19:20 1.25 MG Sodium Bicarbonate 75 ml/ Dextrose 1,075 ml @ 700 mls/hr Q1H33M IV 06/16/25 17:15 06/16/25 18:47 Cancel Bumetanide 1 mg BIDD IV 06/17/25 18:00 Cancel Meropenem 50 ml @ 17 mls/hr DAILY@0100 IV 06/21/25 01:00 Cancel Meropenem 50 ml @ 17 mls/hr Q8H IV 06/27/25 18:00 07/08/25 17:49 17 MLS/HR Sodium Chloride 10 ml QSHIFT@10,22 IV 06/29/25 22:00 07/08/25 10:19 10 ML Amiodarone HCL/ Dextrose 200 ml @ 16.66 mls/ hr Q12H IV 07/03/25 19:00 07/08/25 13:53 16.66 MLS/HR Acetaminophen 1,000 mg Q8H PRN IV 07/03/25 17:30 07/04/25 20:03 1,000 MG Morphine Sulfate 4 mg Q6HPRN PRN IV 07/04/25 15:45 07/08/25 16:18 4 MG Vancomycin HCl 0 ml @ 0 mls/hr UD IV 07/05/25 17:15 Vancomycin HCl 100 ml @ 100 mls/hr Q12H IV 07/06/25 13:00 UNV Pantoprazole Sodium 50 ml @ 10 mls/hr Q5H IV 07/06/25 14:45 07/08/25 13:53 10 MLS/HR Furosemide 40 mg DAILY IV 07/07/25 10:00 07/08/25 09:46 40 MG Sucralfate 1 gm TID@0600,1130,2200 GT 07/07/25 11:30 07/08/25 13:55 1 GM Vancomycin HCl 100 ml @ 100 mls/hr Q12H IV 07/07/25 13:00 07/08/25 13:53 100 MLS/HR Enteral Nutritional Formula 1,000 ml 30ML/HR GT 07/07/25 16:00 07/07/25 20:12 1,000 ML Examination General Appearance: Alert, Oriented X3, in moderate respiratory distress HEENT: Atraumatic, PERRLA, EOMI, Mucous membrane moist/pink Respiratory: Bilateral crackles Cardiovascular: Regular rate, Normal S1, Normal S2, No murmurs, no chest wall tenderness Abdominal: Normal bowel sounds, Soft, No tenderness, No hepatospenomegaly, No masses Extremities: No clubbing, No cyanosis, No edema, Normal pulses, No tenderness/swelling Skin: Wound VAC on the surgical area, with no sign of infection or drainage laboratory and microbiology Laboratory Tests 07/08/25 03:02 Test 07/08/25 03:02 Range/Units Serum Glucose 93 74-106 mg/dL Microbiology Date/Time Source Procedure Growth Status 07/06/25 17:00 Blood Blood Culture - Preliminary NO GROWTH AFTER 48 HOURS OF INCUBATION. Resulted 06/17/25 07:00 Stool Stool Culture - Final Complete 06/17/25 07:00 Stool Shiga Toxin I & II - Final Complete 06/11/25 14:25 Nose MRSA Screen - Final Complete Labs and/or images reviewed: Labs reviewed by me, Image(s) reviewed by me Problem List/Assessment/Plan Problem List/Assessment/Plan This is a 54-year-old female with past medical history of HFpEF, paroxysmal AFib, severe TR, severe MR, prediabetic, asthma, CKD 3A, morbid obesity, came to ER due to shortness of breaths, cough and bilateral lower limb swelling for 2 weeks. Admitted on 06/09, put on BiPAP but the patient's condition worsened and got intubated on 06/11. Extubated on 06/26. NEURO: * Extubated on 06/26 CARDIOVASCULAR: Acute on chronic diastolic heart failure exacerbation Paroxysmal Atrial fibrillation with RVR Pulmonary edema due to heart failure Severe aortic insufficiency, mitral valve insufficiency, tricuspid regurg Acquired coagulopathy * Chads Vasc: 2 * Per Cardiology:patient underwent a transesophageal echocardiogram on 03/26/2025 which revealed an EF of 60% with severe aortic insufficiency and with moderate mitral insufficiency. * We will recommend to continue antiarrhythmic therapy with amiodarone, DOAC therapy with Eliquis, and beta-octavio for rate control . * Outpatient follow up with Dr. Melo in [place] for aortic valve replacement with possible TAVR as well as possible mitral clip. * Plan: Lasix 40 IV daily, amiodarone drip PULMONARY: Acute hypoxic respiratory failure, likely due to pneumonia/COPD exacerbation/asthma exacerbation COPD on 4 L at home Hx of Pna and intubation 2022 Sepsis secondary to Acute Gram-positive and Gram-negative pneumonia Likely COPD on 4L home O2 History of asthma * Plan: Continue IV Abx, and breathing treatment GASTROINTESTINAL: Pneumatosis intestinalis and megacolon likely ischemic bowel Perforation and peritonitis Status s/p laparotomy, subtotal colectomy (ascending and transfer) 06/17, resection of descending colon 06/19, ileocolic anastomosis with protective loop ileostomy, drain placement 06/20 Transaminitis, 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 Evidence of portal venous gas * liver ultrasound shows hepatic steatosis * Surgeon - wound VAC for midline * Today 07/02, the patient got abdominal pain, subsequently developed bleeding from ileostomy and rectal (almost 500 mL). Patient was evaluated by surgeon at the bedside, evaluated the ileostomy, digitize both ileostomy, both patent. Recommended GI evaluation and possible scope, consulted GI, an updated the on-call doctor on phone, reports that she will, and we will assess at the bedside for possible scope. * Abdominal CT 07/05, Bowel wall edema and thickening of the small bowel loops most pronounced in the left abdomen which can be secondary to enteritis, inflammatory bowel disease. No pneumatosis identified.Peripheral splenic hypodensities up to 2.8 cm may represent splenic infarcts. * GI, on the board, planned for possible EGD on 07/06 * Plan: Follow up with the GI, Protonix drip, tentative plan for endoscopy on 07/09 GENITOURINARY: NYASIA secondary to hemodynamically mediated/VMN requiring hemodialysis 06/20 (1 session) ? Chronic kidney disease Anemia of CKD * Kidney ultrasound shows Normal sonographic appearance of the kidneys. No hydronephrosis. 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 Critical care time spent more than 63 minutes, including patient care, chart review, and updating the family. Excluding any procedures. Case discussed with Dr. Benjamin Plan discussed with: Other My Orders My Orders Orders - ELISEO GOMEZ RESHILARIO Procedure Category Date Status Time Complete Blood Count LAB 07/09/25 Verified 04:[address] 07/08/25 Resulted Contrast 12:[address] 07/08/25 Resulted 12:54 Dietary Evaluation Review Comments: 1) If patient remains NPO > 7 days, consider EN/TPN to meet at least 75% of estimated daily needs 2) If gut is preferred, consider Nepro @ 25 mL/hr goal rate as tolerated. Flush with 200 mL free H2O Q6H. TF regimen will provide 1080 kcals, 49g Pro, and 1236 mL free H2O per 24 hrs. TF regimen will meet ~ 92% estimated energy needs and 52% estimated protein needs. 3) Advance to 60g CCHO renal cardiac diet when medically feasible, pending ST approval 4) Refer to outpatient RD/CDCES for weight management 5) Follow-up with cardiology, pulmonology, or nephrology 6) Continue to monitor I&O, labs, and skin integrity Expected Outcomes/Goals: 1) patient to receive nutritional support within 7 days of NPO status 2) labs to improve 3) diet to advance 4) f/u in 2-3 days Sepsis reassessment post fluid Capillary Refill: < 3 seconds Date of Service: Jul 08, 2025 Billing Provider: ELZA BENJAMIN MD Common Visit Codes: 75052-[id number] CARE 30-74 MIN ELISEO GOMEZ Jul 08, 2025 19:38 ELZA BENJAMIN MD Jul 10, 2025 11:36
--- NOTE | 2025-07-08 21:58 | DVHPN2 ---
Progress Note - Dictate Date Seen: Jul 08, 2025 Medical Necessity Reason Pt with a Central, PICC or Fol: Yes The following are medically ne: Central Line, Engel Catheter Subjective Patient was seen and evaluated in follow up in the ICU. Patient is on 3 LPM NC. Patient is complaining of abdominal pain/nausea. Patient is tentatively scheduled for possible endoscopy on Saturday07/09/2025. WBC 12.2, HGB 8.3, HCT 25.1, BUN 35, CA 7.9, AST 76, ALT 60. vital signs Vital Sign Date Time Temp Pulse Resp B/P (MAP) Pulse Ox O2 Delivery O2 Flow Rate FiO2 07/08/25 11:00 93 16 148/63 (91) 91 07/08/25 08:00 99.7 99.7 07/08/25 06:58 Nasal Cannula* 3 32 Total Intake and Output 07/07/25 07/07/25 07/08/25 15:00 23:00 07:00 Intake Total 713.28 ml 539.28 ml 452.94 ml Output Total 2000 ml 895 ml Balance 713.28 ml -1460.72 ml -442.06 ml medications Current Medications Medications Dose Ordered Sig/Bárbara Route Start Time Stop Time Status Last Admin Dose Admin Ondansetron HCl 4 mg Q4HP PRN IV 06/09/25 01:00 Cancel Ipratropium [place] 0.5 mg Q6HR NEB 06/14/25 10:15 07/08/25 12:03 0.5 MG Levalbuterol HCl 1.25 mg Q6HR NEB 06/15/25 00:00 07/08/25 12:03 1.25 MG Sodium Bicarbonate 75 ml/ Dextrose 1,075 ml @ 700 mls/hr Q1H33M IV 06/16/25 17:15 06/16/25 18:47 Cancel Bumetanide 1 mg BIDD IV 06/17/25 18:00 Cancel Meropenem 50 ml @ 17 mls/hr DAILY@0100 IV 06/21/25 01:00 Cancel Meropenem 50 ml @ 17 mls/hr Q8H IV 06/27/25 18:00 07/08/25 09:46 17 MLS/HR Sodium Chloride 10 ml QSHIFT@ IV 06/29/25 22:00 07/08/25 10:19 10 ML Amino Acids 0 ml @ 0 mls/hr PER PHARMACY IV 07/03/25 12:45 Amiodarone HCL/ Dextrose 200 ml @ 16.66 mls/ hr Q12H IV 07/03/25 19:00 07/07/25 23:15 16.66 MLS/HR Acetaminophen 1,000 mg Q8H PRN IV 07/03/25 17:30 07/04/25 20:03 1,000 MG Morphine Sulfate 4 mg Q6HPRN PRN IV 07/04/25 15:45 07/08/25 09:47 4 MG Vancomycin HCl 0 ml @ 0 mls/hr UD IV 07/05/25 17:15 Vancomycin HCl 100 ml @ 100 mls/hr Q12H IV 07/06/25 13:00 UNV Pantoprazole Sodium 50 ml @ 10 mls/hr Q5H IV 07/06/25 14:45 07/08/25 09:41 10 MLS/HR Furosemide 40 mg DAILY IV 07/07/25 10:00 07/08/25 09:46 40 MG Sucralfate 1 gm TID@0600,1130,2200 GT 07/07/25 11:30 07/08/25 04:35 1 GM Potassium Acetate 100 meq/Potassium Phosphate 44 meq/ Magnesium Sulfate 14 meq/ Multivitamins 10 ml/Chromium/ Copper/Manganese/ Zinc 1 ml/Amino Acids/Dextrose/ Fat Emulsion Intravenous 1,474.5 ml @ 61 mls/hr [id number] IV 07/07/25 22:00 07/08/25 21:59 Vancomycin HCl 100 ml @ 100 mls/hr Q12H IV 07/07/25 13:00 07/08/25 01:09 100 MLS/HR Enteral Nutritional Formula 1,000 ml 30ML/HR GT 07/07/25 16:00 07/07/25 20:12 1,000 ML Fat Emulsion Intravenous 100 ml/Sodium Phosphate 10 meq/ Potassium Chloride 40 meq/ Potassium Acetate 80 meq/Potassium Phosphate 44 meq/ Magnesium Sulfate 20 meq/ Multivitamins 10 ml/Chromium/ Copper/Manganese/ Zinc 1 ml/Amino Acids/Dextrose 1,538.5 ml @ 65 mls/hr [id number] IV 07/08/25 22:00 07/09/25 21:59 objective GENERAL: Alert and oriented x 3. No acute distress. EYES: PERRL, EOMI. Anicteric. HENT: Moist mucous membranes. LUNGS: Decreased breath sounds. CARDIOVASCULAR: Regular rate and rhythm. ABDOMEN: Soft, nontender and nondistended. EXTREMITIES: No edema. NEUROLOGIC: No focal neurological deficits. SKIN: Warm, dry. laboratory and microbiology Laboratory Tests 07/08/25 03:02 Test 07/08/25 03:02 Range/Units Serum Glucose 93 74-106 mg/dL Problem List Chronic HFpEF, NYHA class IV. Paroxysmal atrial fibrillation, stage III, now NSR (on amiodarone/Elqiuis therapy). Severe aortic valve and mitral valve insufficiency. Acute hypoxic respiratory failure. Asthma. Chronic kidney disease. Thyroid disease. Prediabetes, newly diagnosed. Morbid obesity. History of tobacco use. Assessment/Plan Continued all current supportive medical care. IV Amiodarone. Diuretics with Lasix. IV antibiotics as ordered. Morphine for pain management. Nebulized breathing treatments. Additional plan as per the hospital course. Critical care time of 45 minutes provided to include time spent evaluation of patient at bedside, when appropriate patient/family education for diagnosis, treatment plan, review of pertinent medical information and discussion of care with specialty providers and PCP. Dietary Evaluation Review Comments: 1) If patient remains NPO > 7 days, consider EN/TPN to meet at least 75% of estimated daily needs 2) If gut is preferred, consider Nepro @ 25 mL/hr goal rate as tolerated. Flush with 200 mL free H2O Q6H. TF regimen will provide 1080 kcals, 49g Pro, and 1236 mL free H2O per 24 hrs. TF regimen will meet ~ 92% estimated energy needs and 52% estimated protein needs. 3) [facility] when medically feasible, pending ST approval 4) Refer to outpatient RD/CDCES for weight management 5) Follow-up with cardiology, pulmonology, or nephrology 6) Continue to monitor I&O, labs, and skin integrity Expected Outcomes/Goals: 1) patient to receive nutritional support within 7 days of NPO status 2) labs to improve 3) diet to advance 4) f/u in 2-3 days Plan discussed with: Other Capillary Refill: < 3 seconds URBANO TRUONG MD Jul 08, 2025 12:14
[2025-07-08] MEDS ORDERED: TPN PER PHARMACY IV NR (22:00)
[2025-07-09] VITALS (36 sets, daily range): BP systolic 117–171; BP diastolic 49–84; PULSE 86–102; RESP 12–20; TEMP 98–99.1; O2SAT 92–100
--- NOTE | 2025-07-09 00:02 | DVHPN2 ---
Progress Note - Surgical Date Seen: Jul 08, 2025 Post op day Post op day: 21 Subjective Patient reports: Feels better (Patient feeling well today, no abdominal pain complaints. Has not require anymore blood transfusions although there is some blood coming per ostomy still) Review of Systems: Deferred Objective Vital signs Vital Sign Date Time Temp Pulse Resp B/P (MAP) Pulse Ox O2 Delivery O2 Flow Rate FiO2 07/08/25 23:56 95 Nasal Cannula* 3 32 07/08/25 23:56 100 14 07/08/25 23:24 138/55 07/08/25 16:00 98.2 98.2 Total Intake and Output 07/08/25 07/08/25 07/09/25 15:00 23:00 07:00 Intake Total 395.28 ml 299.98 ml Output Total 50 ml 2100 ml Balance 345.28 ml -1800.02 ml Medications Current Medications Medications Dose Ordered Sig/Bárbara Route Start Time Stop Time Status Last Admin Dose Admin Ondansetron HCl 4 mg Q4HP PRN IV 06/09/25 01:00 Cancel Ipratropium [place] 0.5 mg Q6HR NEB 06/14/25 10:15 07/08/25 23:56 0.5 MG Levalbuterol HCl 1.25 mg Q6HR NEB 06/15/25 00:00 07/08/25 23:56 1.25 MG Sodium Bicarbonate 75 ml/ Dextrose 1,075 ml @ 700 mls/hr Q1H33M IV 06/16/25 17:15 06/16/25 18:47 Cancel Bumetanide 1 mg BIDD IV 06/17/25 18:00 Cancel Meropenem 50 ml @ 17 mls/hr DAILY@0100 IV 06/21/25 01:00 Cancel Sodium Chloride 10 ml QSHIFT@10,22 IV 06/29/25 22:00 07/08/25 21:01 10 ML Amiodarone HCL/ Dextrose 200 ml @ 16.66 mls/ hr Q12H IV 07/03/25 19:00 07/08/25 21:07 16.66 MLS/HR Acetaminophen 1,000 mg Q8H PRN IV 07/03/25 17:30 07/04/25 20:03 1,000 MG Morphine Sulfate 4 mg Q6HPRN PRN IV 07/04/25 15:45 07/08/25 23:24 4 MG Vancomycin HCl 0 ml @ 0 mls/hr UD IV 07/05/25 17:15 Vancomycin HCl 100 ml @ 100 mls/hr Q12H IV 07/06/25 13:00 UNV Pantoprazole Sodium 50 ml @ 10 mls/hr Q5H IV 07/06/25 14:45 07/08/25 23:23 10 MLS/HR Furosemide 40 mg DAILY IV 07/07/25 10:00 07/08/25 09:46 40 MG Sucralfate 1 gm TID@0600,1130,2200 GT 07/07/25 11:30 07/08/25 21:00 1 GM Vancomycin HCl 100 ml @ 100 mls/hr Q12H IV 07/07/25 13:00 07/08/25 13:53 100 MLS/HR Enteral Nutritional Formula 1,000 ml 30ML/HR GT 07/07/25 16:00 07/07/25 20:12 1,000 ML Laboratory Laboratory Tests 07/08/25 03:02 Test 07/08/25 03:02 Range/Units Serum Glucose 93 74-106 mg/dL Microbiology Date/Time Source Procedure Growth Status 07/06/25 17:00 Blood Blood Culture - Preliminary NO GROWTH AFTER 48 HOURS OF INCUBATION. Resulted 06/17/25 07:00 Stool Stool Culture - Final Complete 06/17/25 07:00 Stool Shiga Toxin I & II - Final Complete 06/11/25 14:25 Nose MRSA Screen - Final Complete Examination: GENERAL:Normal, ABDOMEN:Normal (Nondistended, soft, depressible, midline wound with wound VAC in place no surrounding signs of infection, ileostomy in the right lower quadrant with pink mucosa a mixture of stool and blood in bag) Labs and/or images reviewed: Labs reviewed by me Problem List/Assessment/Plan Assessment and Plan Mrs. Penaloza is a 54-year-old female who has been in the hospital since June 08 due to pneumonia and CHF exacerbation that resulted in intubation. I was consulted on 06/17 due to severe colonic distention and pneumatosis seen on CT from that day. She ended receiving a subtotal colectomy colectomy, with primary ileocolic anastomosis and protective loop ileostomy. Interval: Patient continues to have blood per ostomy, GI planning to scope tomorrow. Patient is cleared the tolerating tube feeds at [facility]. Surgeries: 06/17: Exploratory laparotomy, subtotal colectomy (resection of ascending and transverse colon), temporary abdominal closure 06/19: Exploratory laparotomy, takedown of temporary abdominal dressing, wash out, resection of descending colon 06/20: Exploratory laparotomy, takedown of temporary abdominal dressing, washout, ileocolic anastomosis, protective loop ileostomy, drain placement x2, fascial closure 1. Okay for p.o. diet, pending GI evaluation 2. Recommend obtaining bilateral lower extremity ultrasounds for DVT, given the right iliac thrombus. 3. Given that the patient is having GI bleeding, and DVT prophylaxis has been held; Recommend obtaining IR consultation for possible IVC filter , given that the patient is not ambulatory. 4. Continue with TPN, she was malnourished, and she has not eaten anything significant since extubation 5. Hold DVT prophylaxis 6. Wound VAC for midline wound 7. Recommend continuation of IV antibiotics for a total of 7 days from the last surgery on 06/20 8. Physical therapy consultation Plan discussed with Plan discussed with: Patient Visit Coding Surgery Date of Service if different f: Jul 09, 2025 Billing Provider: SONAM ALCARAZ MD Surgery Visit Codes: [id number] INP/OBS CARE(HIGH) SONAM ALCARAZ MD Jul 09, 2025 00:02
[2025-07-09 04:20] LABS: Hematocrit 25.4 % (36.0-46.0); Hemoglobin 8.5 g/dL (12.2-16.2); Mean Corpuscular Hemoglobin 28.6 pg (28.0-32.0); Mean Corpuscular Volume 85.3 fL (80.0-100.0)
[2025-07-09 04:47] LABS: INR 1.08 (0.9-1.15); Partial Thromboplastin Time 28.4 SEC (24.5-34.5); Prothrombin Time 11.4 sec (9.3-11.8)
[2025-07-09 07:44] LABS: Chloride 102 mmol/L (98-107); Sodium 141 mmol/L (136-145)
[2025-07-09 07:45] LABS: Anion Gap 10 (5-15); Carbon Dioxide 29 mmol/L (20-31); Potassium 3.4 mmol/L (3.5-5.1)
[2025-07-09 07:46] LABS: Calcium 8.0 mg/dL (8.7-10.4)
[2025-07-09 07:47] LABS: Urine Budding Yeast MANY /hpf (None Seen); Urine Protein, UAD 1+ (Negative)
[2025-07-09 07:50] LABS: BUN/Creatinine Ratio 27.4 (10.0-20.0); Glucose 96 mg/dL (74-106)
[2025-07-09 07:59] LABS: Blood Urea Nitrogen 23 mg/dL (9-23)
[2025-07-09 09:03] LABS: Anisocytosis Slight; Stomatocytes Few; Total Cells Counted 100.0 (100)
[2025-07-09] MEDS: POTASSIUM CHL 20MEQ/100ML 100 ML IV SCH (09:13)
[2025-07-09 10:26] LABS: Bilirubin, Direct 0.2 mg/dL (<0.3)
[2025-07-09 10:27] LABS: Alanine Aminotransferase 60.0 U/L (7-40); Albumin 2.2 g/dL (3.2-4.8); Alkaline Phosphatase 128.0 U/L (46-116); Bilirubin, Total 0.3 mg/dL (0.2-1.0); Total Protein 4.9 g/dL (5.7-8.2)
[2025-07-09] MEDS ORDERED: ONDANSETRON HCL 4 MG/2 ML VIAL ONE (14:43)
[2025-07-09] MEDS ORDERED: METOCLOPRAMIDE HCL 5MG/ml INJ 2ml VIAL ONE (14:44)
[2025-07-09] MEDS ORDERED: PROPOFOL 10 MG/ML 20 ML IV ONE (14:44)
--- NOTE | 2025-07-09 14:59 | DVHOP2 ---
Operative Report DATE OF OPERATION: 07/09/25 PROCEDURE: Upper Endoscopy with biopsy. PREOPERATIVE INDICATION: The patient is a 54 -year-old female undergoing endoscopy to rule out upper GI bleed with blood in ileostomy POSTOPERATIVE DIAGNOSES: 1. 1 cm sliding-type hiatal hernia with no significant erosive esophagitis 2. Minimal gastritis otherwise normal examination up to the 2nd and 3rd part of the duodenum with good bile drainage and no active bleeding PROCEDURE PERFORMED BY: Gold Lyons GI NURSE: Miriam SCOPE: Olympus videoendoscope. ASA CLASS: 3 PREOPERATIVE MEDICATIONS: Mac sedation, Parth gonzales PROCEDURE IN DETAIL: After obtaining an informed consent, the patient was placed on left lateral decubitus position. The patient was then sedated with the above medications. A bite block was placed between her teeth. The endoscope was then passed through the oropharynx, into the esophagus, and through the stomach and pylorus up to the second and third part of the duodenum. The endoscope was then withdrawn. The 2nd and 3rd part of the duodenum and the duodenal bulb were normal. There was good bile drainage and no fresh or old blood in the upper GI tract The pre-pyloric area antrum and body showed minimal gastritis. On retroflexion the fundus and cardia were normal. Duodenal and gastric biopsies were obtained The endoscope was then withdrawn into distal esophagus where the patient had a 0.5-1 cm sliding-type hiatal hernia with no significant erosive esophagitis The patient tolerated the procedure well without difficulty. COMPLICATIONS : None SPECIMENS: Duodenal biopsies Gastric biopsies DISPOSITION: Transfer back to the floor Stable PLAN: 1. Await for biopsy result 2. Will place pt on Protonix 40 mg bid IV 3. Resume TPN and feedings according to preop orders 4. Reinsert NG tube to low intermittent suction if required 5. Proceed with enteral feedings once cleared by surgical consult GOLD LYONS MD Jul 09, 2025 14:59
--- NOTE | 2025-07-09 15:52 | DVHPNRES ---
Progress Note Date Seen: Jul 09, 2025 Resident Creating Document: ELISEO GOMEZ RESDIENT Medical Necessity Reason Pt with a Central, PICC or Fol: Yes The following are medically ne: Central Line, Engel Catheter Subjective Review of Systems Patient seen and examined at the bedside. Patient has abdominal pain, and has black discharged from ileostomy. Objective vital signs Vital Sign Date Time Temp Pulse Resp B/P (MAP) Pulse Ox O2 Delivery O2 Flow Rate FiO2 07/09/25 14:53 97 14 100 Mask 3.0 07/09/25 14:53 100 07/09/25 14:53 100.3 150/68 (95) 100.3 Total Intake and Output 07/08/25 07/08/25 07/09/25 15:00 23:00 07:00 Intake Total 395.28 ml 533.28 ml 213.28 ml Output Total 50 ml 2125 ml 1350 ml Balance 345.28 ml -1591.72 ml -1136.72 ml medications Current Medications Medications Dose Ordered Sig/Bárbara Route Start Time Stop Time Status Last Admin Dose Admin Ondansetron HCl 4 mg Q4HP PRN IV 06/09/25 01:00 Cancel Ipratropium [place] 0.5 mg Q6HR NEB 06/14/25 10:15 07/09/25 13:33 0.5 MG Levalbuterol HCl 1.25 mg Q6HR NEB 06/15/25 00:00 07/09/25 13:33 1.25 MG Sodium Bicarbonate 75 ml/ Dextrose 1,075 ml @ 700 mls/hr Q1H33M IV 06/16/25 17:15 06/16/25 18:47 Cancel Bumetanide 1 mg BIDD IV 06/17/25 18:00 Cancel Meropenem 50 ml @ 17 mls/hr DAILY@0100 IV 06/21/25 01:00 Cancel Sodium Chloride 10 ml QSHIFT@10,22 IV 06/29/25 22:00 07/09/25 07:38 10 ML Amiodarone HCL/ Dextrose 200 ml @ 16.66 mls/ hr Q12H IV 07/03/25 19:00 07/09/25 09:13 16.66 MLS/HR Acetaminophen 1,000 mg Q8H PRN IV 07/03/25 17:30 07/04/25 20:03 1,000 MG Morphine Sulfate 4 mg Q6HPRN PRN IV 07/04/25 15:45 07/09/25 11:56 4 MG Vancomycin HCl 0 ml @ 0 mls/hr UD IV 07/05/25 17:15 Vancomycin HCl 100 ml @ 100 mls/hr Q12H IV 07/06/25 13:00 UNV Pantoprazole Sodium 50 ml @ 10 mls/hr Q5H IV 07/06/25 14:45 07/09/25 14:53 10 MLS/HR Furosemide 40 mg DAILY IV 07/07/25 10:00 07/09/25 07:38 40 MG Sucralfate 1 gm TID@0600,1130,2200 GT 07/07/25 11:30 07/09/25 06:00 1 GM Enteral Nutritional Formula 1,000 ml 30ML/HR GT 07/07/25 16:00 07/07/25 20:12 1,000 ML laboratory and microbiology Laboratory Tests 07/09/25 03:36 Test 07/09/25 03:36 Range/Units Serum Glucose 96 74-106 mg/dL Microbiology Date/Time Source Procedure Growth Status 07/06/25 17:00 Blood Blood Culture - Preliminary NO GROWTH AFTER 48 HOURS OF INCUBATION. Resulted 06/17/25 07:00 Stool Stool Culture - Final Complete 06/17/25 07:00 Stool Shiga Toxin I & II - Final Complete 06/11/25 14:25 Nose MRSA Screen - Final Complete Problem List/Assessment/Plan Problem List/Assessment/Plan This is a 54-year-old female with past medical history of HFpEF, paroxysmal AFib, severe TR, severe MR, prediabetic, asthma, CKD 3A, morbid obesity, came to ER due to shortness of breaths, cough and bilateral lower limb swelling for 2 weeks. Admitted on 06/09, put on BiPAP but the patient's condition worsened and got intubated on 06/11. Extubated on 06/26. NEURO: * Extubated on 06/26 CARDIOVASCULAR: Acute on chronic diastolic heart failure exacerbation Paroxysmal Atrial fibrillation with RVR Pulmonary edema due to heart failure Severe aortic insufficiency, mitral valve insufficiency, tricuspid regurg Acquired coagulopathy * Chads Vasc: 2 * Per Cardiology:patient underwent a transesophageal echocardiogram on 03/26/2025 which revealed an EF of 60% with severe aortic insufficiency and with moderate mitral insufficiency. * We will recommend to continue antiarrhythmic therapy with amiodarone, DOAC therapy with Eliquis, and beta-octavio for rate control . * Outpatient follow up with Dr. Melo in [place] for aortic valve replacement with possible TAVR as well as possible mitral clip. * Plan: Lasix 40 IV daily, amiodarone 200 mg b.i.d. PULMONARY: Acute hypoxic respiratory failure, likely due to pneumonia/COPD exacerbation/asthma exacerbation COPD on 4 L at home Hx of Pna and intubation 2022 Sepsis secondary to Acute Gram-positive and Gram-negative pneumonia Likely COPD on 4L home O2 History of asthma * Plan: Continue IV Abx, and breathing treatment GASTROINTESTINAL: Pneumatosis intestinalis and megacolon likely ischemic bowel Perforation and peritonitis Status s/p laparotomy, subtotal colectomy (ascending and transfer) 06/17, resection of descending colon 06/19, ileocolic anastomosis with protective loop ileostomy, drain placement 06/20 Transaminitis, 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 Evidence of portal venous gas * liver ultrasound shows hepatic steatosis * Surgeon - wound VAC for midline * Today 07/02, the patient got abdominal pain, subsequently developed bleeding from ileostomy and rectal (almost 500 mL). Patient was evaluated by surgeon at the bedside, evaluated the ileostomy, digitize both ileostomy, both patent. Recommended GI evaluation and possible scope, consulted GI, an updated the on-call doctor on phone, reports that she will, and we will assess at the bedside for possible scope. * Abdominal CT 07/05, Bowel wall edema and thickening of the small bowel loops most pronounced in the left abdomen which can be secondary to enteritis, inflammatory bowel disease. No pneumatosis identified.Peripheral splenic hypodensities up to 2.8 cm may represent splenic infarcts. * EGD 07/09, showed 1 cm sliding-type hiatal hernia with no significant erosive esophagitis with minimal gastritis otherwise normal examination up to the 2nd and 3rd part of the duodenum with good bile drainage and no active bleeding * Plan: Protonix 40 mg b.i.d. GENITOURINARY: NYASIA secondary to hemodynamically mediated/VMN requiring hemodialysis 06/20 (1 session) ? Chronic kidney disease Anemia of CKD * Kidney ultrasound shows Normal sonographic appearance of the kidneys. No hydronephrosis. 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 Critical care time spent more than 63 minutes, including patient care, chart review, and updating the family. Excluding any procedures. Case discussed with Plan discussed with: Patient My Orders My Orders Orders - ELISEO GOMEZ RESDIDOMONIQUE Procedure Category Date Status Time Vancomycin,Random LAB 07/10/25 Verified 04:00 Creatinine LAB 07/10/25 Verified 04:00 Dietary Evaluation Review Comments: 1) If patient remains NPO > 7 days, consider EN/TPN to meet at least 75% of estimated daily needs 2) If gut is preferred, consider Nepro @ 25 mL/hr goal rate as tolerated. Flush with 200 mL free H2O Q6H. TF regimen will provide 1080 kcals, 49g Pro, and 1236 mL free H2O per 24 hrs. TF regimen will meet ~ 92% estimated energy needs and 52% estimated protein needs. 3) Advance to 60g CCHO renal cardiac diet when medically feasible, pending ST approval 4) Refer to outpatient RD/CDCES for weight management 5) Follow-up with cardiology, pulmonology, or nephrology 6) Continue to monitor I&O, labs, and skin integrity Expected Outcomes/Goals: 1) patient to receive nutritional support within 7 days of NPO status 2) labs to improve 3) diet to advance 4) f/u in 2-3 days Sepsis reassessment post fluid Capillary Refill: < 3 seconds Date of Service: Jul 09, 2025 Billing Provider: GIA HAYWARD MD Common Visit Codes: NOT BILLABLE ELISEO GOMEZ Jul 09, 2025 15:52 GIA HAYWARD MD Jul 22, 2025 16:36
[2025-07-09] MEDS: AMIODARONE HCL 200 MG TAB PO ONE (16:54)
--- NOTE | 2025-07-09 19:52 | DVHPN2 ---
Progress Note - Surgical Date Seen: Jul 09, 2025 Post op day Post op day: 22 Subjective Patient reports: Feels better (No abdominal pain complaints) Review of Systems: Deferred Objective Vital signs Vital Sign Date Time Temp Pulse Resp B/P (MAP) Pulse Ox O2 Delivery O2 Flow Rate FiO2 07/09/25 19:28 96 16 98 07/09/25 19:22 Nasal Cannula* 3 32 07/09/25 18:00 147/70 (95) 07/09/25 16:00 98.0 98.0 Total Intake and Output 07/08/25 07/08/25 07/09/25 15:00 23:00 07:00 Intake Total 395.28 ml 533.28 ml 213.28 ml Output Total 50 ml 2125 ml 1350 ml Balance 345.28 ml -1591.72 ml -1136.72 ml Medications Current Medications Medications Dose Ordered Sig/Bárbara Route Start Time Stop Time Status Last Admin Dose Admin Ondansetron HCl 4 mg Q4HP PRN IV 06/09/25 01:00 Cancel Ipratropium [place] 0.5 mg Q6HR NEB 06/14/25 10:15 07/09/25 19:22 0.5 MG Levalbuterol HCl 1.25 mg Q6HR NEB 06/15/25 00:00 07/09/25 19:22 1.25 MG Sodium Bicarbonate 75 ml/ Dextrose 1,075 ml @ 700 mls/hr Q1H33M IV 06/16/25 17:15 06/16/25 18:47 Cancel Bumetanide 1 mg BIDD IV 06/17/25 18:00 Cancel Meropenem 50 ml @ 17 mls/hr DAILY@0100 IV 06/21/25 01:00 Cancel Sodium Chloride 10 ml QSHIFT@10,22 IV 06/29/25 22:00 07/09/25 07:38 10 ML Acetaminophen 1,000 mg Q8H PRN IV 07/03/25 17:30 07/04/25 20:03 1,000 MG Morphine Sulfate 4 mg Q6HPRN PRN IV 07/04/25 15:45 07/09/25 11:56 4 MG Vancomycin HCl 0 ml @ 0 mls/hr UD IV 07/05/25 17:15 Vancomycin HCl 100 ml @ 100 mls/hr Q12H IV 07/06/25 13:00 UNV Furosemide 40 mg DAILY IV 07/07/25 10:00 07/09/25 07:38 40 MG Sucralfate 1 gm TID@0600,1130,2200 GT 07/07/25 11:30 07/09/25 06:00 1 GM Meropenem 250 ml @ 83.3 mls/hr Q8HR IV 07/09/25 22:00 Pantoprazole Sodium 40 mg BID IV 07/09/25 22:00 Amiodarone HCl 200 mg Q12HR PO 07/09/25 22:00 Laboratory Laboratory Tests 07/09/25 03:36 Test 07/09/25 03:36 Range/Units Serum Glucose 96 74-106 mg/dL Microbiology Date/Time Source Procedure Growth Status 07/06/25 17:00 Blood Blood Culture - Preliminary NO GROWTH AFTER 72 HOURS OF INCUBATION. Resulted 06/17/25 07:00 Stool Stool Culture - Final Complete 06/17/25 07:00 Stool Shiga Toxin I & II - Final Complete 06/11/25 14:25 Nose MRSA Screen - Final Complete Examination: GENERAL:Normal, ABDOMEN:Normal (Nondistended, soft, depressible, midline wound with wound VAC placed and no surrounding signs of infection, right lower quadrant ileostomy with stool mixed with blood in bag, nontender) Labs and/or images reviewed: Labs reviewed by me (Hemoglobin steady in the eights) Problem List/Assessment/Plan Assessment and Plan Mrs. Penaloza is a 54-year-old female who has been in the hospital since June 08 due to pneumonia and CHF exacerbation that resulted in intubation. I was consulted on 06/17 due to severe colonic distention and pneumatosis seen on CT from that day. She ended receiving a subtotal colectomy colectomy, with primary ileocolic anastomosis and protective loop ileostomy. Interval: No hemoglobin dropped today, still having bloody stool in ostomy, GI plans to do EGD today Surgeries: 06/17: Exploratory laparotomy, subtotal colectomy (resection of ascending and transverse colon), temporary abdominal closure 06/19: Exploratory laparotomy, takedown of temporary abdominal dressing, wash out, resection of descending colon 06/20: Exploratory laparotomy, takedown of temporary abdominal dressing, washout, ileocolic anastomosis, protective loop ileostomy, drain placement x2, fascial closure 1. Okay for p.o. diet, pending GI evaluation 2. Recommend obtaining bilateral lower extremity ultrasounds for DVT, given the right iliac thrombus. 3. Given that the patient is having GI bleeding, and DVT prophylaxis has been held; Recommend obtaining IR consultation for possible IVC filter , given that the patient is not ambulatory. 4. Continue with TPN, she was malnourished, and she has not eaten anything significant since extubation 5. Hold DVT prophylaxis 6. Wound VAC for midline wound 7. Recommend continuation of IV antibiotics for a total of 7 days from the last surgery on 06/20 8. Physical therapy consultation Plan discussed with Plan discussed with: Patient Visit Coding Surgery Date of Service if different f: Jul 09, 2025 Billing Provider: SONAM ALCARAZ MD Surgery Visit Codes: [id number] INP/OBS CARE(HIGH) SONAM ALCARAZ MD Jul 09, 2025 19:52
[2025-07-09] MEDS: AMIODARONE HCL 200 MG TAB PO SCH (21:17)
[2025-07-09] MEDS: PANTOPRAZOLE 40 MG/10 ML VIAL INJ IV SCH (21:17)
[2025-07-09] MEDS: MEROPENEM 2GM/ 250ML 250 ML IV SCH (21:18)
--- NOTE | 2025-07-09 23:22 | DVHPN2 ---
Progress Note - Dictate Date Seen: Jul 09, 2025 Medical Necessity Reason Pt with a Central, PICC or Fol: Yes The following are medically ne: Central Line, Engel Catheter Subjective Patient was seen and evaluated in follow up in the ICU. Patient is on 3 LPM NC. Patient reports feeling well today. Patient has some blood coming from ostomy. HGB 8.5, HCT 25.4, K 3.4, AST 65, ALT 60. CT head showed old right basal ganglia lacunar infarct. Moderate cervical degenerative disc disease. Bilateral mastoid effusions. Bilateral pulmonary airspace consolidation within the imaged portions of the upper lungs. vital signs Vital Sign Date Time Temp Pulse Resp B/P (MAP) Pulse Ox O2 Delivery O2 Flow Rate FiO2 07/09/25 10:00 94 14 152/65 (94) 97 07/09/25 09:32 Nasal Cannula* 3 32 07/09/25 08:00 98.2 98.2 Total Intake and Output 07/08/25 07/08/25 07/09/25 15:00 23:00 07:00 Intake Total 395.28 ml 533.28 ml 213.28 ml Output Total 50 ml 2125 ml 1350 ml Balance 345.28 ml -1591.72 ml -1136.72 ml medications Current Medications Medications Dose Ordered Sig/Bárbara Route Start Time Stop Time Status Last Admin Dose Admin Ondansetron HCl 4 mg Q4HP PRN IV 06/09/25 01:00 Cancel Ipratropium [place] 0.5 mg Q6HR NEB 06/14/25 10:15 07/09/25 06:52 0.5 MG Levalbuterol HCl 1.25 mg Q6HR NEB 06/15/25 00:00 07/09/25 06:53 1.25 MG Sodium Bicarbonate 75 ml/ Dextrose 1,075 ml @ 700 mls/hr Q1H33M IV 06/16/25 17:15 06/16/25 18:47 Cancel Bumetanide 1 mg BIDD IV 06/17/25 18:00 Cancel Meropenem 50 ml @ 17 mls/hr DAILY@0100 IV 06/21/25 01:00 Cancel Sodium Chloride 10 ml QSHIFT@10,22 IV 06/29/25 22:00 07/09/25 07:38 10 ML Amiodarone HCL/ Dextrose 200 ml @ 16.66 mls/ hr Q12H IV 07/03/25 19:00 07/09/25 09:13 16.66 MLS/HR Acetaminophen 1,000 mg Q8H PRN IV 07/03/25 17:30 07/04/25 20:03 1,000 MG Morphine Sulfate 4 mg Q6HPRN PRN IV 07/04/25 15:45 07/09/25 06:01 4 MG Vancomycin HCl 0 ml @ 0 mls/hr UD IV 07/05/25 17:15 Vancomycin HCl 100 ml @ 100 mls/hr Q12H IV 07/06/25 13:00 UNV Pantoprazole Sodium 50 ml @ 10 mls/hr Q5H IV 07/06/25 14:45 07/09/25 07:38 10 MLS/HR Furosemide 40 mg DAILY IV 07/07/25 10:00 07/09/25 07:38 40 MG Sucralfate 1 gm TID@0600,1130,2200 GT 07/07/25 11:30 07/09/25 06:00 1 GM Enteral Nutritional Formula 1,000 ml 30ML/HR GT 07/07/25 16:00 07/07/25 20:12 1,000 ML Potassium Chloride 100 ml @ 50 mls/hr Q2H IV 07/09/25 08:30 07/09/25 12:29 07/09/25 10:12 50 MLS/HR objective GENERAL: Alert and oriented x 3. No acute distress. EYES: PERRL, EOMI. Anicteric. HENT: Moist mucous membranes. LUNGS: Decreased breath sounds. CARDIOVASCULAR: Regular rate and rhythm. ABDOMEN: Soft, nontender and nondistended. EXTREMITIES: No edema. NEUROLOGIC: No focal neurological deficits. SKIN: Warm, dry. laboratory and microbiology Laboratory Tests 07/09/25 03:36 Test 07/09/25 03:36 Range/Units Serum Glucose 96 74-106 mg/dL Problem List Chronic HFpEF, NYHA class IV. Paroxysmal atrial fibrillation, stage III, now NSR (on amiodarone/Elqiuis therapy). Severe aortic valve and mitral valve insufficiency. Acute hypoxic respiratory failure. Asthma. Chronic kidney disease. Thyroid disease. Prediabetes, newly diagnosed. Morbid obesity. History of tobacco use. Assessment/Plan Continued all current supportive medical care. IV Amiodarone. GI prophylactics. Diuretics with Lasix. IV antibiotics as ordered. Morphine for pain management. Nebulized breathing treatments. Additional plan as per the hospital course. Critical care time of 45 minutes provided to include time spent evaluation of patient at bedside, when appropriate patient/family education for diagnosis, treatment plan, review of pertinent medical information and discussion of care with specialty providers and PCP. Dietary Evaluation Review Comments: 1) If patient remains NPO > 7 days, consider EN/TPN to meet at least 75% of estimated daily needs 2) If gut is preferred, consider Nepro @ 25 mL/hr goal rate as tolerated. Flush with 200 mL free H2O Q6H. TF regimen will provide 1080 kcals, 49g Pro, and 1236 mL free H2O per 24 hrs. TF regimen will meet ~ 92% estimated energy needs and 52% estimated protein needs. 3) Advance to 60g CCHO renal cardiac diet when medically feasible, pending ST approval 4) Refer to outpatient RD/CDCES for weight management 5) Follow-up with cardiology, pulmonology, or nephrology 6) Continue to monitor I&O, labs, and skin integrity Expected Outcomes/Goals: 1) patient to receive nutritional support within 7 days of NPO status 2) labs to improve 3) diet to advance 4) f/u in 2-3 days Plan discussed with: Patient Capillary Refill: < 3 seconds URBANO TRUONG MD Jul 09, 2025 11:59
[2025-07-10] VITALS (40 sets, daily range): BP systolic 107–164; BP diastolic 37–77; PULSE 82–104; RESP 12–20; TEMP 97.5–98.8; O2SAT 92–100
[2025-07-10 04:21] LABS: Hematocrit 27.4 % (36.0-46.0); Hemoglobin 9.0 g/dL (12.2-16.2); Mean Corpuscular Hemoglobin 27.9 pg (28.0-32.0); Mean Corpuscular Volume 85.4 fL (80.0-100.0)
[2025-07-10 04:44] LABS: Anion Gap 11 (5-15); BUN/Creatinine Ratio 22.6 (10.0-20.0); Blood Urea Nitrogen 21 mg/dL (9-23); Carbon Dioxide 28 mmol/L (20-31); Chloride 99 mmol/L (98-107); Potassium 4.1 mmol/L (3.5-5.1); Sodium 138 mmol/L (136-145)
[2025-07-10 04:45] LABS: Bilirubin, Total 0.3 mg/dL (0.2-1.0)
[2025-07-10 04:48] LABS: Alanine Aminotransferase 51 U/L (7-40); Albumin 2.5 g/dL (3.2-4.8); Alkaline Phosphatase 140 U/L (46-116); Calcium 8.2 mg/dL (8.7-10.4); Glucose 137 mg/dL (74-106); Magnesium 1.3 mg/dL (1.6-2.6); Total Protein 5.6 g/dL (5.7-8.2)
[2025-07-10 05:26] LABS: Total Cells Counted 100.0 (100)
[2025-07-10 05:27] LABS: Stomatocytes Moderate
--- NOTE | 2025-07-10 09:51 | DVHPN2 ---
Progress Note - Surgical Date Seen: Jul 10, 2025 Post op day Post op day: 23 Subjective Patient reports: Feels better (Patient feeling good this morning, eating regular diet, no complaints.) Review of Systems: Deferred Objective Vital signs Vital Sign Date Time Temp Pulse Resp B/P (MAP) Pulse Ox O2 Delivery O2 Flow Rate FiO2 07/10/25 09:39 91 07/10/25 09:39 16 97 Nasal Cannula* 3 32 07/10/25 09:00 98.1 144/56 (85) 98.1 Total Intake and Output 07/09/25 07/09/25 07/10/25 14:59 22:59 06:59 Intake Total 323.28 ml 303.32 ml 450 ml Output Total 25 ml 2000 ml 1000 ml Balance 298.28 ml -1696.68 ml -550 ml Medications Current Medications Medications Dose Ordered Sig/Bárbara Route Start Time Stop Time Status Last Admin Dose Admin Ondansetron HCl 4 mg Q4HP PRN IV 06/09/25 01:00 Cancel Ipratropium [place] 0.5 mg Q6HR NEB 06/14/25 10:15 07/10/25 05:35 0.5 MG Levalbuterol HCl 1.25 mg Q6HR NEB 06/15/25 00:00 07/10/25 05:35 1.25 MG Sodium Bicarbonate 75 ml/ Dextrose 1,075 ml @ 700 mls/hr Q1H33M IV 06/16/25 17:15 06/16/25 18:47 Cancel Bumetanide 1 mg BIDD IV 06/17/25 18:00 Cancel Meropenem 50 ml @ 17 mls/hr DAILY@0100 IV 06/21/25 01:00 Cancel Sodium Chloride 10 ml QSHIFT@10,22 IV 06/29/25 22:00 07/10/25 08:10 10 ML Acetaminophen 1,000 mg Q8H PRN IV 07/03/25 17:30 07/04/25 20:03 1,000 MG Morphine Sulfate 4 mg Q6HPRN PRN IV 07/04/25 15:45 07/10/25 02:55 4 MG Vancomycin HCl 0 ml @ 0 mls/hr UD IV 07/05/25 17:15 Vancomycin HCl 100 ml @ 100 mls/hr Q12H IV 07/06/25 13:00 UNV Furosemide 40 mg DAILY IV 07/07/25 10:00 07/10/25 08:10 40 MG Sucralfate 1 gm TID@0600,1130,2200 GT 07/07/25 11:30 07/10/25 05:49 1 GM Meropenem 250 ml @ 83.3 mls/hr Q8HR IV 07/09/25 22:00 07/10/25 05:50 83.3 MLS/HR Pantoprazole Sodium 40 mg BID IV 07/09/25 22:00 07/10/25 08:09 40 MG Amiodarone HCl 200 mg Q12HR PO 07/09/25 22:00 07/10/25 08:10 200 MG Laboratory Laboratory Tests 07/10/25 03:30 Test 07/10/25 03:30 Range/Units Serum Glucose 137 H 74-106 mg/dL Microbiology Date/Time Source Procedure Growth Status 07/06/25 17:00 Blood Blood Culture - Preliminary NO GROWTH AFTER 72 HOURS OF INCUBATION. Resulted 06/17/25 07:00 Stool Stool Culture - Final Complete 06/17/25 07:00 Stool Shiga Toxin I & II - Final Complete 06/11/25 14:25 Nose MRSA Screen - Final Complete Examination: GENERAL:Normal, ABDOMEN:Normal (Nondistended, soft, depressible, midline wound with wound VAC placed and without surrounding signs of infection, ileostomy with stool in bag and no blood noted, ileostomy mucosa pink, nontender) Labs and/or images reviewed: Labs reviewed by me (Hemoglobin up to 9 from 8.5 yesterday (no transfusions)) Problem List/Assessment/Plan Assessment and Plan Mrs. Penaloza is a 54-year-old female who has been in the hospital since June 08 due to pneumonia and CHF exacerbation that resulted in intubation. I was consulted on 06/17 due to severe colonic distention and pneumatosis seen on CT from that day. She ended receiving a subtotal colectomy colectomy, with primary ileocolic anastomosis and protective loop ileostomy. Interval: Patient underwent EGD yesterday, mild gastritis noted, no active bleeding, they took biopsies of the gastric mucosa in the duodenal mucosa. Surgeries: 06/17: Exploratory laparotomy, subtotal colectomy (resection of ascending and transverse colon), temporary abdominal closure 06/19: Exploratory laparotomy, takedown of temporary abdominal dressing, wash out, resection of descending colon 06/20: Exploratory laparotomy, takedown of temporary abdominal dressing, washout, ileocolic anastomosis, protective loop ileostomy, drain placement x2, fascial closure 1. Continue regular diet and supplement with ensure protein shakes 2. Continue working with physical therapy and out of bed as tolerated 3. No heavy lifting over 10 lb for 8 weeks after surgery 4. Patient will need ostomy education 5. Continue with wound VAC to midline wound 6. Ileostomy output goals less than 1500 mL per day, if output is greater than that she might need GI antimotility agents only after diet education. 7. Due to having ileostomy, I recommend minimal fluid intake with foods, okay for fluid intake before foods and/or after foods but 30-40 minutes post eating. Limit carbohydrate intake as it can increase the ileostomy output. 8. Patient will need to be on top of her fluid intake as ileostomies with high output can dehydrate patient is, the more of the ostomy produces the more fluid she needs to drink. 9. Patient will need to follow with Dr. Wang at [facility] 2 weeks after discharge 10. I will follow peripherally, please call with any questions or concerns Plan discussed with Plan discussed with: Patient Visit Coding Surgery Date of Service if different f: Jul 10, 2025 Billing Provider: SONAM ALCARAZ MD Surgery Visit Codes: [id number] INP/OBS CARE(HIGH) SONAM ALCARAZ MD Jul 10, 2025 09:51
[2025-07-10] MEDS: VANCOMYCIN 500mg/100mL 100 ML IV ONE (14:15)
--- NOTE | 2025-07-10 15:05 | DVHPN2 ---
Subjective Patient denies any symptoms. Reviewed: Care Plan, H&P, Labs, Medications, Previous Orders, Radiology Changes from previous H/P or p: No Changes General: Per HPI Objective Vitals Vital Signs Date Time Temp Pulse Resp B/P (MAP) Pulse Ox O2 Delivery O2 Flow Rate FiO2 07/10/25 14:15 19 98 Nasal Cannula* 3 32 07/10/25 14:15 98 07/10/25 14:00 118/42 (67) 07/10/25 12:00 98.1 98.1 Intake/Output Intake and Output 07/10/25 07:00 Intake Total 1049.94 ml Output Total 3025 ml Balance -1975.06 ml Intake Oral 700 ml IV Total 349.94 ml Output Urine Total 2800 ml Stool Total 225 ml General Appearance: Alert, Oriented X3, Cooperative, No acute distress HEENT: Atraumatic, PERRLA Neck: Supple Lungs: Clear to auscultation, Other (Decreased air entry bilaterally) Cardiovascular: Regular rate, Normal S1, Normal S2, No murmurs, Gallops, Rubs Abdomen: Normal bowel sounds, Soft, No tenderness, Other (Abdominal dressing dry and intact) Musculoskeletal: Normal sensory function, Normal motor function Neuro: Strength at 5/5 X4 ext, Cranial nerves 3-12 NL Skin: Dry, Intact Psych/Mental Status: Mental status NL, Mood NL Medications Current Medications Medications Dose Ordered Sig/Bárbara Route Start Time Stop Time Status Last Admin Dose Admin Ondansetron HCl 4 mg Q4HP PRN IV 06/09/25 01:00 Cancel Ipratropium [place] 0.5 mg Q6HR NEB 06/14/25 10:15 07/10/25 11:39 0.5 MG Levalbuterol HCl 1.25 mg Q6HR NEB 06/15/25 00:00 07/10/25 11:39 1.25 MG Sodium Bicarbonate 75 ml/ Dextrose 1,075 ml @ 700 mls/hr Q1H33M IV 06/16/25 17:15 06/16/25 18:47 Cancel Bumetanide 1 mg BIDD IV 06/17/25 18:00 Cancel Meropenem 50 ml @ 17 mls/hr DAILY@0100 IV 06/21/25 01:00 Cancel Sodium Chloride 10 ml QSHIFT@ IV 06/29/25 22:00 07/10/25 08:10 10 ML Acetaminophen 1,000 mg Q8H PRN IV 07/03/25 17:30 07/04/25 20:03 1,000 MG Morphine Sulfate 4 mg Q6HPRN PRN IV 07/04/25 15:45 07/10/25 10:02 4 MG Vancomycin HCl 0 ml @ 0 mls/hr UD IV 07/05/25 17:15 Vancomycin HCl 100 ml @ 100 mls/hr Q12H IV 07/06/25 13:00 UNV Furosemide 40 mg DAILY IV 07/07/25 10:00 07/10/25 08:10 40 MG Sucralfate 1 gm TID@0600,1130,2200 GT 07/07/25 11:30 07/10/25 10:01 1 GM Meropenem 250 ml @ 83.3 mls/hr Q8HR IV 07/09/25 22:00 07/10/25 13:00 83.3 MLS/HR Pantoprazole Sodium 40 mg BID IV 07/09/25 22:00 07/10/25 08:09 40 MG Amiodarone HCl 200 mg Q12HR PO 07/09/25 22:00 07/10/25 08:10 200 MG Magnesium Sulfate/ Dextrose 100 ml @ 100 mls/hr Q1HR IV 07/10/25 15:00 07/10/25 17:59 UNV Oxycodone/ Acetaminophen 1 tab Q4HP PRN PO 07/10/25 15:00 UNV Alprazolam 0.25 mg Q12HP PRN PO 07/10/25 15:00 UNV Laboratory Results Laboratory Tests 07/10/25 03:30 Chemistry Test 07/10/25 03:30 Albumin 2.5 g/dL (3.2-4.8) L Calcium Level 8.2 mg/dL (8.7-10.4) L Magnesium Level 1.3 mg/dL (1.6-2.6) L Total Protein 5.6 g/dL (5.7-8.2) L LFT Test 07/10/25 03:30 Alanine Aminotransferase (ALT) 51 U/L (7-40) H Alkaline Phosphatase 140 U/L (46-116) H Aspartate Amino Transferase (AST) 46 U/L (13-40) H Total Bilirubin 0.3 mg/dL (0.2-1.0) Urinalysis Test 06/14/25 11:50 07/09/25 06:00 Urine Creatinine 27.77 mg/dL (30.0-125.0) L Urine Protein/Creatinine Ratio 1.72 Urine Sodium 73 mmol/L (40-220) Urine Total Protein 47.7 mg/dL (1-14) H Urine Color Light-yellow (Yellow) Urine Clarity Turbid (Clear) H Urine pH 6.5 (5.0-9.0) Urine Specific [place] 1.017 (1.001-1.035) Urine Protein 1+ (Negative) H Urine Ketones Negative (Negative) Urine Blood 1+ /uL (Negative) H Urine Nitrite Negative (Negative) Urine Bilirubin Negative (Negative) Urine Urobilinogen Normal mg/dL (Negative) Urine Leukocyte Esterase 1+ /uL (Negative) Urine RBC 43 /hpf (0 - 4) Urine Microscopic WBC 14 /HPF (0-5) H Urine Squamous Epithelial Cells Few /hpf (<5) Urine Bacteria Few /hpf (None Seen) H Urine Hyaline Casts Few /lpf (0 - 2) Urine Yeast (Budding) Many /hpf (None Seen) Urine Glucose Normal mg/dL (Normal) Microbiology Microbiology Date/Time Source Procedure Growth Status 07/06/25 17:00 Blood Blood Culture - Preliminary NO GROWTH AFTER 72 HOURS OF INCUBATION. Resulted 06/17/25 07:00 Stool Stool Culture - Final Complete 06/17/25 07:00 Stool Shiga Toxin I & II - Final Complete 06/11/25 14:25 Nose MRSA Screen - Final Complete Labs and/or images reviewed: Labs reviewed by me, Image(s) reviewed by me Assessment/Plan Assessment/Plan Impression: -acute hypoxic respiratory failure -status post bowel resection, secondary to ischemic megacolon -obesity -AFib with RVR -acute kidney injury, vasomotor nephropathy -sepsis -anemia Plan: Events: No events overnight. Patient's magnesium level 1.3. Yeast growing in urine on 07/09 -magnesium replacement -pain management: Add Percocet 5/325. Use prior to IV morphine -exchange Engel catheter -continue antimicrobial therapy with micafungin, Meropenem -continue Protonix, Carafate -physical therapy -repeat labs, chest x-ray in a.m. Critical care time spent with patient discussing and formulating plan of care: 40 minutes. This does not include time spent performing procedures. This medical document was created using an electronic medical record system with [employer] dictation system. Although this document has been carefully reviewed, there may still be some phonetic and typographical errors. These areas are purely typographical due to imperfections of the software programs, and do not reflect any compromise in the patient's medical care. Plan discussed with: Patient, Other (RN) My Orders Orders - SLIM ANAND NP Procedure Category Date Status Time Magnesium Sulfate PHA 07/10/25 Logged 1gm/100ml 15:00 Oxycodone W/ Acet PHA 07/10/25 Logged 5/325mg Tab (Percocet 15:00 Alprazolam Tablet PHA 07/10/25 Logged (Xanax Tablet) 15:00 Comprehensive LAB 07/11/25 Verified Metabolic Panel 04:00 Magnesium LAB 07/11/25 Verified 04:00 Date of Service: Jul 10, 2025 Billing Provider: SLIM ANAND NP Common Visit Codes: [id number] INP/OBS CARE(HIGH) SLIM ANAND NP Jul 10, 2025 15:05
[2025-07-10] MEDS ORDERED: ACETAMINOPHEN IV 1000 MG/100ML (10MG/ML) IV PRN (15:15)
[2025-07-10] MEDS: MAGNESIUM SULFATE 1GM/100ML 100 ML IV SCH (15:38)
--- NOTE | 2025-07-10 17:51 | DVHPN2 ---
Progress Note - Dictate Date Seen: Jul 10, 2025 Medical Necessity Reason Pt with a Central, PICC or Fol: Yes The following are medically ne: Central Line, Engel Catheter Subjective Patient was seen and evaluated in follow up in the ICU. Patient is on 3 LPM NC. Patient is s/p upper endoscopy with biopsy. Patient is tolerating current diet. Patient reports feeling better daily. HGB 9, HCT 27.4, CA 8.2, AST 46, ALT 51. vital signs Vital Sign Date Time Temp Pulse Resp B/P (MAP) Pulse Ox O2 Delivery O2 Flow Rate FiO2 07/10/25 11:47 90 14 100 07/10/25 11:39 Nasal Cannula* 3 32 07/10/25 10:02 152/45 07/10/25 09:00 98.1 98.1 Total Intake and Output 07/09/25 07/09/25 07/10/25 15:00 23:00 07:00 Intake Total 323.28 ml 276.66 ml 450 ml Output Total 25 ml 2000 ml 1000 ml Balance 298.28 ml -1723.34 ml -550 ml medications Current Medications Medications Dose Ordered Sig/Bábrara Route Start Time Stop Time Status Last Admin Dose Admin Ondansetron HCl 4 mg Q4HP PRN IV 06/09/25 01:00 Cancel Ipratropium [place] 0.5 mg Q6HR NEB 06/14/25 10:15 07/10/25 11:39 0.5 MG Levalbuterol HCl 1.25 mg Q6HR NEB 06/15/25 00:00 07/10/25 11:39 1.25 MG Sodium Bicarbonate 75 ml/ Dextrose 1,075 ml @ 700 mls/hr Q1H33M IV 06/16/25 17:15 06/16/25 18:47 Cancel Bumetanide 1 mg BIDD IV 06/17/25 18:00 Cancel Meropenem 50 ml @ 17 mls/hr DAILY@0100 IV 06/21/25 01:00 Cancel Sodium Chloride 10 ml QSHIFT@10,22 IV 06/29/25 22:00 07/10/25 08:10 10 ML Acetaminophen 1,000 mg Q8H PRN IV 07/03/25 17:30 07/04/25 20:03 1,000 MG Morphine Sulfate 4 mg Q6HPRN PRN IV 07/04/25:45 07/10/25 10:02 4 MG Vancomycin HCl 0 ml @ 0 mls/hr UD IV 07/05/25 17:15 Vancomycin HCl 100 ml @ 100 mls/hr Q12H IV 07/06/25 13:00 UNV Furosemide 40 mg DAILY IV 07/07/25 10:00 07/10/25 08:10 40 MG Sucralfate 1 gm TID@0600,1130,2200 GT 07/07/25 11:30 07/10/25 10:01 1 GM Meropenem 250 ml @ 83.3 mls/hr Q8HR IV 07/09/25 22:00 07/10/25 05:50 83.3 MLS/HR Pantoprazole Sodium 40 mg BID IV 07/09/25 22:00 07/10/25 08:09 40 MG Amiodarone HCl 200 mg Q12HR PO 07/09/25 22:00 07/10/25 08:10 200 MG objective GENERAL: Alert and oriented x 3. No acute distress. EYES: PERRL, EOMI. Anicteric. HENT: Moist mucous membranes. LUNGS: Decreased breath sounds. CARDIOVASCULAR: Regular rate and rhythm. ABDOMEN: Soft, nontender and nondistended. EXTREMITIES: No edema. NEUROLOGIC: No focal neurological deficits. SKIN: Warm, dry. laboratory and microbiology Laboratory Tests 07/10/25 03:30 Test 07/10/25 03:30 Range/Units Serum Glucose 137 H 74-106 mg/dL Problem List Chronic HFpEF, NYHA class IV. Paroxysmal atrial fibrillation, stage III, now NSR (on amiodarone/Elqiuis therapy). Severe aortic valve and mitral valve insufficiency. Acute hypoxic respiratory failure. Asthma. Chronic kidney disease. Thyroid disease. Prediabetes, newly diagnosed. Morbid obesity. History of tobacco use. Assessment/Plan Continued all current supportive medical care. IV Amiodarone. GI prophylactics. Diuretics with Lasix. IV antibiotics as ordered. Morphine for pain management. Nebulized breathing treatments. Additional plan as per the hospital course. Critical care time of 45 minutes provided to include time spent evaluation of patient at bedside, when appropriate patient/family education for diagnosis, treatment plan, review of pertinent medical information and discussion of care with specialty providers and PCP. Dietary Evaluation Review Comments: 1) If patient remains NPO > 7 days, consider EN/TPN to meet at least 75% of estimated daily needs 2) If gut is preferred, consider Nepro @ 25 mL/hr goal rate as tolerated. Flush with 200 mL free H2O Q6H. TF regimen will provide 1080 kcals, 49g Pro, and 1236 mL free H2O per 24 hrs. TF regimen will meet ~ 92% estimated energy needs and 52% estimated protein needs. 3) Advance to 60g CCHO renal cardiac diet when medically feasible, pending ST approval 4) Refer to outpatient RD/[facility]CES for weight management 5) Follow-up with cardiology, pulmonology, or nephrology 6) Continue to monitor I&O, labs, and skin integrity Expected Outcomes/Goals: 1) patient to receive nutritional support within 7 days of NPO status 2) labs to improve 3) diet to advance 4) f/u in 2-3 days Plan discussed with: Patient Capillary Refill: < 3 seconds URBANO TRUONG MD Jul 10, 2025 11:54
--- NOTE | 2025-07-10 18:36 | DVHPN2 ---
Progress Note - Dictate Date Seen: Jul 10, 2025 Medical Necessity Reason Pt with a Central, PICC or Fol: Yes The following are medically ne: Central Line, Engel Catheter vital signs Vital Sign Date Time Temp Pulse Resp B/P (MAP) Pulse Ox O2 Delivery O2 Flow Rate FiO2 07/10/25 18:05 92 16 100 07/10/25 18:00 125/54 (77) 07/10/25 17:53 Nasal Cannula* 3 32 07/10/25 16:00 97.5 97.5 Total Intake and Output 07/09/25 07/09/25 07/10/25 15:00 23:00 07:00 Intake Total 323.28 ml 276.66 ml 450 ml Output Total 25 ml 2000 ml 1000 ml Balance 298.28 ml -1723.34 ml -550 ml medications Current Medications Medications Dose Ordered Sig/Bárbara Route Start Time Stop Time Status Last Admin Dose Admin Ondansetron HCl 4 mg Q4HP PRN IV 06/09/25 01:00 Cancel Ipratropium [place] 0.5 mg Q6HR NEB 06/14/25 10:15 07/10/25 17:45 0.5 MG Levalbuterol HCl 1.25 mg Q6HR NEB 06/15/25 00:00 07/10/25 17:45 1.25 MG Sodium Bicarbonate 75 ml/ Dextrose 1,075 ml @ 700 mls/hr Q1H33M IV 06/16/25 17:15 06/16/25 18:47 Cancel Bumetanide 1 mg BIDD IV 06/17/25 18:00 Cancel Meropenem 50 ml @ 17 mls/hr DAILY@0100 IV 06/21/25 01:00 Cancel Sodium Chloride 10 ml QSHIFT@10,22 IV 06/29/25 22:00 07/10/25 08:10 10 ML Morphine Sulfate 4 mg Q6HPRN PRN IV 07/04/25 15:45 07/10/25 16:50 4 MG Vancomycin HCl 0 ml @ 0 mls/hr UD IV 07/05/25 17:15 Vancomycin HCl 100 ml @ 100 mls/hr Q12H IV 07/06/25 13:00 UNV Furosemide 40 mg DAILY IV 07/07/25 10:00 07/10/25 08:10 40 MG Sucralfate 1 gm TID@0600,1130,2200 GT 07/07/25 11:30 07/10/25 10:01 1 GM Meropenem 250 ml @ 83.3 mls/hr Q8HR IV 07/09/25 22:00 07/10/25 13:00 83.3 MLS/HR Pantoprazole Sodium 40 mg BID IV 07/09/25 22:00 07/10/25 08:09 40 MG Amiodarone HCl 200 mg Q12HR PO 07/09/25 22:00 07/10/25 08:10 200 MG Oxycodone/ Acetaminophen 1 tab Q4HP PRN PO 07/10/25 15:00 Alprazolam 0.25 mg Q12HP PRN PO 07/10/25 15:00 Acetaminophen 1,000 mg Q8H PRN IV 07/10/25 15:15 laboratory and microbiology Laboratory Tests 07/10/25 03:30 Test 07/10/25 03:30 Range/Units Serum Glucose 137 H 74-106 mg/dL Assessment/Plan Impression Acute hypoxemic respiratory failure Acute pulmonary edema Pneumonia CHF Patient seen and examined in ICU Events post-op care s/p extubation on minimal 02 Labs and imaging reviewed ABG reviewed Management suppl 02 Continue antibiotics F/u cultures Bronchodilators Diurese Monitor renal function Monitor electrolytes Supplement as needed HD per nephrology DVT prophylaxis Critical care time 35 minutes Dietary Evaluation Review Comments: 1) If patient remains NPO > 7 days, consider EN/TPN to meet at least 75% of estimated daily needs 2) If gut is preferred, consider Nepro @ 25 mL/hr goal rate as tolerated. Flush with 200 mL free H2O Q6H. TF regimen will provide 1080 kcals, 49g Pro, and 1236 mL free H2O per 24 hrs. TF regimen will meet ~ 92% estimated energy needs and 52% estimated protein needs. 3) Advance to 60g CCHO renal cardiac diet when medically feasible, pending ST approval 4) Refer to outpatient RD/CDCES for weight management 5) Follow-up with cardiology, pulmonology, or nephrology 6) Continue to monitor I&O, labs, and skin integrity Expected Outcomes/Goals: 1) patient to receive nutritional support within 7 days of NPO status 2) labs to improve 3) diet to advance 4) f/u in 2-3 days Plan discussed with: Patient Capillary Refill: < 3 seconds GIA HAYWARD MD Jul 10, 2025 18:36
[2025-07-10] MEDS: OXYCODONE W/ ACETAMINOPHEN 5/325MG TABLET PO PRN (19:48)
[2025-07-10] MEDS: ALPRAZolam 0.25 MG TAB PO PRN (21:53)
[2025-07-11] VITALS (37 sets, daily range): BP systolic 107–142; BP diastolic 33–74; PULSE 82–105; RESP 9–25; TEMP 96.8–98.5; O2SAT 96–100
[2025-07-11 04:15] LABS: Hematocrit 25.4 % (36.0-46.0); Hemoglobin 8.5 g/dL (12.2-16.2); Mean Corpuscular Hemoglobin 28.4 pg (28.0-32.0); Mean Corpuscular Volume 85.0 fL (80.0-100.0); Nucleated Red Blood Cells % 0.1 %
[2025-07-11 04:24] LABS: Anion Gap 11 (5-15); BUN/Creatinine Ratio 22.6 (10.0-20.0); Bilirubin, Total 0.4 mg/dL (0.2-1.0); Blood Urea Nitrogen 19 mg/dL (9-23); Carbon Dioxide 29 mmol/L (20-31); Chloride 100 mmol/L (98-107); Glucose 89 mg/dL (74-106); Magnesium 1.9 mg/dL (1.6-2.6); Sodium 140 mmol/L (136-145)
[2025-07-11 04:31] LABS: Alanine Aminotransferase 56 U/L (7-40); Albumin 2.5 g/dL (3.2-4.8); Alkaline Phosphatase 136 U/L (46-116); Calcium 8.1 mg/dL (8.7-10.4); Potassium 3.0 mmol/L (3.5-5.1); Total Protein 5.3 g/dL (5.7-8.2)
[2025-07-11] MEDS: MAGNESIUM OXIDE 400 MG TAB PO ONE (05:45)
[2025-07-11] MEDS: POTASSIUM CHL 20 Meq TABLET PO ONE (05:45)
--- NOTE | 2025-07-11 07:14 | DVH ---
CHEST RADIOGRAPH Indication: ICU patient Technique: Single frontal view of the chest was obtained Comparison: XY CHEST XRAY 1 VIEW on DOS: 07/07/25, XY CHEST XRAY 1 VIEW on DOS: 07/06/25, XY CHEST XRAY 1 VIEW on DOS: 07/05/25 IMPRESSION: Heart is prominent size. There is [id number] pulmonary vascular congestion. No focal airspace opacity or effusion. No pneumothorax. Right PICC line tip region of the superior vena cava.
--- NOTE | 2025-07-11 08:32 | DVHPN2 ---
Subjective Patient denies any symptoms. Reviewed: Care Plan, H&P, Labs, Medications, Previous Orders, Radiology Changes from previous H/P or p: No Changes General: Per HPI Objective Vitals Vital Signs Date Time Temp Pulse Resp B/P (MAP) Pulse Ox O2 Delivery O2 Flow Rate FiO2 07/11/25 07:55 86 13 100 Nasal Cannula* 3 32 07/11/25 07:48 128/47 07/11/25 04:00 97.3 97.3 Intake/Output Intake and Output 07/11/25 07:00 Intake Total 2016.6 ml Output Total 2750 ml Balance -733.4 ml Intake Oral 1500 ml IV Total 516.6 ml Output Urine Total 2600 ml Stool Total 150 ml General Appearance: Alert, Oriented X3, Cooperative, No acute distress HEENT: Atraumatic, PERRLA Neck: Supple Lungs: Clear to auscultation, Other (Decreased air entry bilaterally) Cardiovascular: Regular rate, Normal S1, Normal S2, No murmurs, Gallops, Rubs Abdomen: Normal bowel sounds, Soft, No tenderness, Other (Abdominal dressing dry and intact) Musculoskeletal: Normal sensory function, Normal motor function Neuro: Strength at 5/5 X4 ext, Cranial nerves 3-12 NL Skin: Dry, Intact Psych/Mental Status: Mental status NL, Mood NL Medications Current Medications Medications Dose Ordered Sig/Bárbara Route Start Time Stop Time Status Last Admin Dose Admin Ondansetron HCl 4 mg Q4HP PRN IV 06/09/25 01:00 Cancel Ipratropium [place] 0.5 mg Q6HR NEB 06/14/25 10:15 07/11/25 06:51 0.5 MG Levalbuterol HCl 1.25 mg Q6HR NEB 06/15/25 00:00 07/11/25 06:51 1.25 MG Sodium Bicarbonate 75 ml/ Dextrose 1,075 ml @ 700 mls/hr Q1H33M IV 06/16/25 17:15 06/16/25 18:47 Cancel Bumetanide 1 mg BIDD IV 06/17/25 18:00 Cancel Meropenem 50 ml @ 17 mls/hr DAILY@0100 IV 06/21/25 01:00 Cancel Sodium Chloride 10 ml QSHIFT@10,22 IV 06/29/25 22:00 07/11/25 07:45 10 ML Morphine Sulfate 4 mg Q6HPRN PRN IV 07/04/25 15:45 07/10/25 16:50 4 MG Vancomycin HCl 0 ml @ 0 mls/hr UD IV 07/05/25 17:15 Vancomycin HCl 100 ml @ 100 mls/hr Q12H IV 07/06/25 13:00 UNV Sucralfate 1 gm TID@0600,1130,2200 GT 07/07/25 11:30 07/11/25 05:45 1 GM Meropenem 250 ml @ 83.3 mls/hr Q8HR IV 07/09/25 22:00 07/11/25 05:49 83.3 MLS/HR Pantoprazole Sodium 40 mg BID IV 07/09/25 22:00 07/11/25 07:45 40 MG Amiodarone HCl 200 mg Q12HR PO 07/09/25 22:00 07/11/25 07:45 200 MG Oxycodone/ Acetaminophen 1 tab Q4HP PRN PO 07/10/25 15:00 07/11/25 05:45 1 TAB Alprazolam 0.25 mg Q12HP PRN PO 07/10/25 15:00 07/10/25 21:53 0.25 MG Acetaminophen 1,000 mg Q8H PRN IV 07/10/25 15:15 Furosemide 20 mg DAILY IV 07/11/25 10:00 UNV Laboratory Results Laboratory Tests 07/11/25 03:30 Chemistry Test 07/11/25 03:30 Albumin 2.5 g/dL (3.2-4.8) L Calcium Level 8.1 mg/dL (8.7-10.4) L Magnesium Level 1.9 mg/dL (1.6-2.6) Total Protein 5.3 g/dL (5.7-8.2) L LFT Test 07/11/25 03:30 Alanine Aminotransferase (ALT) 56 U/L (7-40) H Alkaline Phosphatase 136 U/L (46-116) H Aspartate Amino Transferase (AST) 66 U/L (13-40) H Total Bilirubin 0.4 mg/dL (0.2-1.0) Urinalysis Test 06/14/25 11:50 07/09/25 06:00 Urine Creatinine 27.77 mg/dL (30.0-125.0) L Urine Protein/Creatinine Ratio 1.72 Urine Sodium 73 mmol/L (40-220) Urine Total Protein 47.7 mg/dL (1-14) H Urine Color Light-yellow (Yellow) Urine Clarity Turbid (Clear) H Urine pH 6.5 (5.0-9.0) Urine Specific [place] 1.017 (1.001-1.035) Urine Protein 1+ (Negative) H Urine Ketones Negative (Negative) Urine Blood 1+ /uL (Negative) H Urine Nitrite Negative (Negative) Urine Bilirubin Negative (Negative) Urine Urobilinogen Normal mg/dL (Negative) Urine Leukocyte Esterase 1+ /uL (Negative) Urine RBC 43 /hpf (0 - 4) Urine Microscopic WBC 14 /HPF (0-5) H Urine Squamous Epithelial Cells Few /hpf (<5) Urine Bacteria Few /hpf (None Seen) H Urine Hyaline Casts Few /lpf (0 - 2) Urine Yeast (Budding) Many /hpf (None Seen) Urine Glucose Normal mg/dL (Normal) Microbiology Microbiology Date/Time Source Procedure Growth Status 07/06/25 17:00 Blood Blood Culture - Preliminary NO GROWTH AFTER 72 HOURS OF INCUBATION. Resulted 06/17/25 07:00 Stool Stool Culture - Final Complete 06/17/25 07:00 Stool Shiga Toxin I & II - Final Complete 06/11/25 14:25 Nose MRSA Screen - Final Complete Labs and/or images reviewed: Labs reviewed by me, Image(s) reviewed by me Assessment/Plan Assessment/Plan Impression: -acute hypoxic respiratory failure -status post bowel resection, secondary to ischemic megacolon -obesity -AFib with RVR -acute kidney injury, vasomotor nephropathy -sepsis -anemia Plan: Events: No events overnight. Electrolyte replete ordered. Engel catheter exchanged. -continue current pain management regimen -exchange Engel catheter -continue antimicrobial therapy with micafungin, Meropenem -continue Protonix, Carafate -physical therapy -repeat labs, chest x-ray in a.m. Critical care time spent with patient discussing and formulating plan of care: 40 minutes. This does not include time spent performing procedures. This medical document was created using an electronic medical record system with [employer] dictation system. Although this document has been carefully reviewed, there may still be some phonetic and typographical errors. These areas are purely typographical due to imperfections of the software programs, and do not reflect any compromise in the patient's medical care. Plan discussed with: Patient, Other (Rn) My Orders Orders - SLIM ANAND NP Procedure Category Date Status Time Oxycodone W/ Acet PHA 07/10/25 In Process 5/325mg Tab (Percocet 15:00 Alprazolam Tablet PHA 07/10/25 In Process (Xanax Tablet) 15:00 Ok To Change Engel ORDERS 07/10/25 Transmitted 15:05 Urine Bacterial EVELIO 07/10/25 In Process Culture 16:46 Furosemide Injection PHA 07/11/25 Logged (Lasix Injection) 10:00 Basic Metabolic Panel LAB 07/12/25 Verified 04:00 Magnesium LAB 07/12/25 Verified 04:00 Complete Blood Count LAB 07/12/25 Verified 04:00 Potassium LAB 07/11/25 Logged 12:00 Magnesium LAB 07/11/25 Logged 12:00 Date of Service: Jul 11, 2025 Billing Provider: SLIM ANAND NP Common Visit Codes: 60581-DOPYORLT CARE 30-74 MIN SLIM ANAND NP Jul 11, 2025 08:32
[2025-07-11] MEDS: FUROSEMIDE 20 MG/2 ML VIAL IV SCH (09:31)
[2025-07-11 13:19] LABS: Potassium 3.7 mmol/L (3.5-5.1)
[2025-07-11 13:25] LABS: Magnesium 1.8 mg/dL (1.6-2.6)
--- NOTE | 2025-07-11 14:53 | DVHPN2 ---
Progress Note - Dictate Date Seen: Jul 11, 2025 Medical Necessity Reason Pt with a Central, PICC or Fol: Yes The following are medically ne: Central Line, Engel Catheter vital signs Vital Sign Date Time Temp Pulse Resp B/P (MAP) Pulse Ox O2 Delivery O2 Flow Rate FiO2 07/11/25 13:30 100 07/11/25 13:30 25 98 Nasal Cannula* 3 32 07/11/25 13:00 121/64 (83) 07/11/25 12:00 98.2 98.2 Total Intake and Output 07/10/25 07/10/25 07/11/25 15:00 23:00 07:00 Intake Total 166.6 ml 1183.3 ml 666.7 ml Output Total 1550 ml 1200 ml Balance 166.6 ml -366.7 ml -533.3 ml medications Current Medications Medications Dose Ordered Sig/Bárbara Route Start Time Stop Time Status Last Admin Dose Admin Ondansetron HCl 4 mg Q4HP PRN IV 06/09/25 01:00 Cancel Ipratropium [place] 0.5 mg Q6HR NEB 06/14/25 10:15 07/11/25 11:40 0.5 MG Levalbuterol HCl 1.25 mg Q6HR NEB 06/15/25 00:00 07/11/25 11:40 1.25 MG Sodium Bicarbonate 75 ml/ Dextrose 1,075 ml @ 700 mls/hr Q1H33M IV 06/16/25 17:15 06/16/25 18:47 Cancel Bumetanide 1 mg BIDD IV 06/17/25 18:00 Cancel Meropenem 50 ml @ 17 mls/hr DAILY@0100 IV 06/21/25 01:00 Cancel Sodium Chloride 10 ml QSHIFT@10,22 IV 06/29/25 22:00 07/11/25 07:45 10 ML Morphine Sulfate 4 mg Q6HPRN PRN IV 07/04/25 15:45 07/11/25 11:18 4 MG Vancomycin HCl 0 ml @ 0 mls/hr UD IV 07/05/25 17:15 Vancomycin HCl 100 ml @ 100 mls/hr Q12H IV 07/06/25 13:00 UNV Sucralfate 1 gm TID@0600,1130,2200 GT 07/07/25 11:30 07/11/25 12:28 1 GM Meropenem 250 ml @ 83.3 mls/hr Q8HR IV 07/09/25 22:00 07/11/25 12:32 83.3 MLS/HR Pantoprazole Sodium 40 mg BID IV 07/09/25 22:00 07/11/25 07:45 40 MG Amiodarone HCl 200 mg Q12HR PO 07/09/25 22:00 07/11/25 07:45 200 MG Oxycodone/ Acetaminophen 1 tab Q4HP PRN PO 07/10/25 15:00 07/11/25 05:45 1 TAB Alprazolam 0.25 mg Q12HP PRN PO 07/10/25 15:00 07/10/25 21:53 0.25 MG Acetaminophen 1,000 mg Q8H PRN IV 07/10/25 15:15 Furosemide 20 mg DAILY IV 07/11/25 10:00 laboratory and microbiology Laboratory Tests 07/11/25 12:29 07/11/25 03:30 Test 07/11/25 03:30 Range/Units Serum Glucose 89 74-106 mg/dL Assessment/Plan Impression Acute hypoxemic respiratory failure Acute pulmonary edema Pneumonia CHF Patient seen and examined in ICU Events s/p extubation minimal oxygen requirements appears weak and deconditioned no acute events Labs and imaging reviewed ABG reviewed Management suppl 02 Continue antibiotics F/u cultures Bronchodilators Diurese Monitor renal function Monitor electrolytes Supplement as needed HD per nephrology DVT prophylaxis Critical care time 35 minutes Dietary Evaluation Review Comments: 1) If patient remains NPO > 7 days, consider EN/TPN to meet at least 75% of estimated daily needs 2) If gut is preferred, consider Nepro @ 25 mL/hr goal rate as tolerated. Flush with 200 mL free H2O Q6H. TF regimen will provide 1080 kcals, 49g Pro, and 1236 mL free H2O per 24 hrs. TF regimen will meet ~ 92% estimated energy needs and 52% estimated protein needs. 3) Advance to 60g CCHO renal cardiac diet when medically feasible, pending ST approval 4) Refer to outpatient RD/CDCES for weight management 5) Follow-up with cardiology, pulmonology, or nephrology 6) Continue to monitor I&O, labs, and skin integrity Expected Outcomes/Goals: 1) patient to receive nutritional support within 7 days of NPO status 2) labs to improve 3) diet to advance 4) f/u in 2-3 days Plan discussed with: Patient Capillary Refill: < 3 seconds GIA HAYWARD MD Jul 11, 2025 14:53
--- NOTE | 2025-07-11 20:05 | DVHPN2 ---
Progress Note - Dictate Date Seen: Jul 11, 2025 Medical Necessity Reason Pt with a Central, PICC or Fol: Yes The following are medically ne: Central Line, Engel Catheter Subjective No new complaints Tolerating soft mechanical diet No significant UGI findings an UGI bleed H/H stable at 8.5 vital signs Vital Sign Date Time Temp Pulse Resp B/P (MAP) Pulse Ox O2 Delivery O2 Flow Rate FiO2 07/11/25 19:00 105 17 130/53 (78) 99 07/11/25 18:37 Nasal Cannula 3.0 07/11/25 18:37 32 07/11/25 16:00 98.4 98.4 Total Intake and Output 07/10/25 07/10/25 07/11/25 15:00 23:00 07:00 Intake Total 166.6 ml 1183.3 ml 666.7 ml Output Total 1550 ml 1200 ml Balance 166.6 ml -366.7 ml -533.3 ml medications Current Medications Medications Dose Ordered Sig/Bárbara Route Start Time Stop Time Status Last Admin Dose Admin Ondansetron HCl 4 mg Q4HP PRN IV 06/09/25 01:00 Cancel Ipratropium [place] 0.5 mg Q6HR NEB 06/14/25 10:15 07/11/25 18:37 0.5 MG Levalbuterol HCl 1.25 mg Q6HR NEB 06/15/25 00:00 07/11/25 18:37 1.25 MG Sodium Bicarbonate 75 ml/ Dextrose 1,075 ml @ 700 mls/hr Q1H33M IV 06/16/25 17:15 06/16/25 18:47 Cancel Bumetanide 1 mg BIDD IV 06/17/25 18:00 Cancel Meropenem 50 ml @ 17 mls/hr DAILY@0100 IV 06/21/25 01:00 Cancel Sodium Chloride 10 ml QSHIFT@10,22 IV 06/29/25 22:00 07/11/25 07:45 10 ML Morphine Sulfate 4 mg Q6HPRN PRN IV 07/04/25 15:45 07/11/25 11:18 4 MG Vancomycin HCl 0 ml @ 0 mls/hr UD IV 07/05/25 17:15 Vancomycin HCl 100 ml @ 100 mls/hr Q12H IV 07/06/25 13:00 UNV Sucralfate 1 gm TID@0600,1130,2200 GT 07/07/25 11:30 07/11/25 12:28 1 GM Meropenem 250 ml @ 83.3 mls/hr Q8HR IV 07/09/25 22:00 07/11/25 12:32 83.3 MLS/HR Pantoprazole Sodium 40 mg BID IV 07/09/25 22:00 07/11/25 07:45 40 MG Amiodarone HCl 200 mg Q12HR PO 07/09/25 22:00 07/11/25 07:45 200 MG Oxycodone/ Acetaminophen 1 tab Q4HP PRN PO 07/10/25 15:00 07/11/25 15:32 1 TAB Alprazolam 0.25 mg Q12HP PRN PO 07/10/25 15:00 07/10/25 21:53 0.25 MG Acetaminophen 1,000 mg Q8H PRN IV 07/10/25 15:15 Furosemide 20 mg DAILY IV 07/11/25 10:00 objective GENERAL:Normal, ABDOMEN:Normal (Nondistended, soft, depressible, midline wound with wound VAC placed and no surrounding signs of infection, right lower quadrant ileostomy with stool mixed with blood in bag, nontender) laboratory and microbiology Laboratory Tests 07/11/25 12:29 07/11/25 03:30 Test 07/11/25 03:30 Range/Units Serum Glucose 89 74-106 mg/dL Problems(with codes): (1) GI bleed (2) Pneumatosis intestinalis (3) Acute on chronic respiratory failure with hypoxemia (4) ATN (acute tubular necrosis) (5) Hypokalemia (6) Sepsis (7) CHF exacerbation Prognosis Assessment plan 54-year-old lady S/P laparotomy x3 with subtotal colectomy and ileocolonic anastomosis protective loop ileostomy and drain placement Possible postsurgical bleeding via ileostomy possibly related to ischemic bowel with no evidence of upper GI bleeding Advance diet as tolerated Physical therapy on postop care as per surgical recommendations Continue with wound VAC monitor ileostomy output Dietary Evaluation Review Comments: 1) If patient remains NPO > 7 days, consider EN/TPN to meet at least 75% of estimated daily needs 2) If gut is preferred, consider Nepro @ 25 mL/hr goal rate as tolerated. Flush with 200 mL free H2O Q6H. TF regimen will provide 1080 kcals, 49g Pro, and 1236 mL free H2O per 24 hrs. TF regimen will meet ~ 92% estimated energy needs and 52% estimated protein needs. 3) Advance to 60g CCHO renal cardiac diet when medically feasible, pending ST approval 4) Refer to outpatient RD/CDCES for weight management 5) Follow-up with cardiology, pulmonology, or nephrology 6) Continue to monitor I&O, labs, and skin integrity Expected Outcomes/Goals: 1) patient to receive nutritional support within 7 days of NPO status 2) labs to improve 3) diet to advance 4) f/u in 2-3 days Plan discussed with: Patient, Other (Dr Edwards) Capillary Refill: < 3 seconds GOLD MARTINEZ MD Jul 11, 2025 20:05
[2025-07-12] VITALS (35 sets, daily range): BP systolic 106–161; BP diastolic 38–70; PULSE 88–105; RESP 12–25; TEMP 98.1–98.8; O2SAT 85–100
--- NOTE | 2025-07-12 | DVHPN2 ---
Progress Note - Dictate Date Seen: Jul 11, 2025 Medical Necessity Reason Pt with a Central, PICC or Fol: Yes The following are medically ne: Central Line, Engel Catheter Subjective Patient was seen and evaluated in follow up in the ICU. No overnight events. Patient is on 3 LPM NC. HGB 8.5, HCT 25.4, K 3, CA 8.1. Chest x-ray shows [id number] pulmonary vascular congestion. vital signs Vital Sign Date Time Temp Pulse Resp B/P (MAP) Pulse Ox O2 Delivery O2 Flow Rate FiO2 07/11/25 13:30 100 07/11/25 13:30 25 98 Nasal Cannula* 3 32 07/11/25 11:59 142/54 07/11/25 08:00 96.8 96.8 Total Intake and Output 07/10/25 07/10/25 07/11/25 15:00 23:00 07:00 Intake Total 166.6 ml 1183.3 ml 666.7 ml Output Total 1550 ml 1200 ml Balance 166.6 ml -366.7 ml -533.3 ml medications Current Medications Medications Dose Ordered Sig/Bárbara Route Start Time Stop Time Status Last Admin Dose Admin Ondansetron HCl 4 mg Q4HP PRN IV 06/09/25 01:00 Cancel Ipratropium [place] 0.5 mg Q6HR NEB 06/14/25 10:15 07/11/25 11:40 0.5 MG Levalbuterol HCl 1.25 mg Q6HR NEB 06/15/25 00:00 07/11/25 11:40 1.25 MG Sodium Bicarbonate 75 ml/ Dextrose 1,075 ml @ 700 mls/hr Q1H33M IV 06/16/25 17:15 06/16/25 18:47 Cancel Bumetanide 1 mg BIDD IV 06/17/25 18:00 Cancel Meropenem 50 ml @ 17 mls/hr DAILY@0100 IV 06/21/25 01:00 Cancel Sodium Chloride 10 ml QSHIFT@10,22 IV 06/29/25 22:00 07/11/25 07:45 10 ML Morphine Sulfate 4 mg Q6HPRN PRN IV 07/04/25 15:45 07/11/25 11:18 4 MG Vancomycin HCl 0 ml @ 0 mls/hr UD IV 07/05/25 17:15 Vancomycin HCl 100 ml @ 100 mls/hr Q12H IV 07/06/25 13:00 UNV Sucralfate 1 gm TID@0600,1130,2200 GT 07/07/25 11:30 07/11/25 12:28 1 GM Meropenem 250 ml @ 83.3 mls/hr Q8HR IV 07/09/25 22:00 07/11/25 12:32 83.3 MLS/HR Pantoprazole Sodium 40 mg BID IV 07/09/25 22:00 07/11/25 07:45 40 MG Amiodarone HCl 200 mg Q12HR PO 07/09/25 22:00 07/11/25 07:45 200 MG Oxycodone/ Acetaminophen 1 tab Q4HP PRN PO 07/10/25 15:00 07/11/25 05:45 1 TAB Alprazolam 0.25 mg Q12HP PRN PO 07/10/25 15:00 07/10/25 21:53 0.25 MG Acetaminophen 1,000 mg Q8H PRN IV 07/10/25 15:15 Furosemide 20 mg DAILY IV 07/11/25 10:00 objective GENERAL: Alert and oriented x 3. No acute distress. EYES: PERRL, EOMI. Anicteric. HENT: Moist mucous membranes. LUNGS: Decreased breath sounds. CARDIOVASCULAR: Regular rate and rhythm. ABDOMEN: Soft, nontender and nondistended. EXTREMITIES: No edema. NEUROLOGIC: No focal neurological deficits. SKIN: Warm, dry. laboratory and microbiology Laboratory Tests 07/11/25 12:29 07/11/25 03:30 Test 07/11/25 03:30 Range/Units Serum Glucose 89 74-106 mg/dL Problem List Chronic HFpEF, NYHA class IV. Paroxysmal atrial fibrillation, stage III, now NSR (on amiodarone/Elqiuis therapy). Severe aortic valve and mitral valve insufficiency. Acute hypoxic respiratory failure. Asthma. Chronic kidney disease. Thyroid disease. Prediabetes, newly diagnosed. Morbid obesity. History of tobacco use. Assessment/Plan Continued all current supportive medical care. Amiodarone. Diuretics with Lasix. IV antibiotics as ordered. Morphine and Oxycodone for pain management. GI prophylactics. Additional plan as per the hospital course. Critical care time of 45 minutes provided to include time spent evaluation of patient at bedside, when appropriate patient/family education for diagnosis, treatment plan, review of pertinent medical information and discussion of care with specialty providers and PCP. Dietary Evaluation Review Comments: 1) If patient remains NPO > 7 days, consider EN/TPN to meet at least 75% of estimated daily needs 2) If gut is preferred, consider Nepro @ 25 mL/hr goal rate as tolerated. Flush with 200 mL free H2O Q6H. TF regimen will provide 1080 kcals, 49g Pro, and 1236 mL free H2O per 24 hrs. TF regimen will meet ~ 92% estimated energy needs and 52% estimated protein needs. 3) Advance to 60g CCHO renal cardiac diet when medically feasible, pending ST approval 4) Refer to outpatient RD/CDCES for weight management 5) Follow-up with cardiology, pulmonology, or nephrology 6) Continue to monitor I&O, labs, and skin integrity Expected Outcomes/Goals: 1) patient to receive nutritional support within 7 days of NPO status 2) labs to improve 3) diet to advance 4) f/u in 2-3 days Plan discussed with: Patient Capillary Refill: < 3 seconds URBANO TRUONG MD Jul 11, 2025 13:35
[2025-07-12 03:04] LABS: Hemoglobin 8.1 g/dL (12.2-16.2); Mean Corpuscular Volume 86.8 fL (80.0-100.0); Nucleated Red Blood Cells % 0.0 %
[2025-07-12 03:06] LABS: Hematocrit 24.4 % (36.0-46.0); Mean Corpuscular Hemoglobin 28.9 pg (28.0-32.0)
[2025-07-12 03:16] LABS: Anion Gap 8 (5-15); Carbon Dioxide 29 mmol/L (20-31); Chloride 102 mmol/L (98-107); Potassium 3.8 mmol/L (3.5-5.1); Sodium 139 mmol/L (136-145)
[2025-07-12 03:17] LABS: Calcium 8.1 mg/dL (8.7-10.4)
[2025-07-12 03:21] LABS: Glucose 89 mg/dL (74-106)
[2025-07-12 03:22] LABS: BUN/Creatinine Ratio 18.5 (10.0-20.0); Blood Urea Nitrogen 15 mg/dL (9-23)
[2025-07-12 03:23] LABS: Magnesium 1.5 mg/dL (1.6-2.6)
[2025-07-12] MEDS: MAGNESIUM SULFATE 1GM/100ML 0 ML IV ONE (04:49)
[2025-07-12] MEDS: MAGNESIUM SULFATE 1GM/100ML 100 ML IV SCH (05:12)
[2025-07-12] MEDS: VANCOMYCIN 500mg/100mL 100 ML IV ONE (10:00)
--- NOTE | 2025-07-12 20:28 | DVHPNRES ---
Progress Note Date Seen: Jul 12, 2025 Resident Creating Document: ELISEO GOMEZ RESDIENT Medical Necessity Reason Pt with a Central, PICC or Fol: Yes The following are medically ne: Central Line, [place] Catheter Subjective Review of Systems Patient seen and examined at the bedside. Patient has abdominal pain, and has black discharged from ileostomy. Objective vital signs Vital Sign Date Time Temp Pulse Resp B/P (MAP) Pulse Ox O2 Delivery O2 Flow Rate FiO2 07/12/25 18:28 94 17 100 07/12/25 18:27 Nasal Cannula* 3 32 07/12/25 18:00 152/57 (88) 07/12/25 12:00 98.2 98.2 Total Intake and Output 07/11/25 07/11/25 07/12/25 15:00 23:00 07:00 Intake Total 249.9 ml 600 ml 750 ml Output Total 2300 ml 1425 ml Balance 249.9 ml -1700 ml -675 ml medications Current Medications Medications Dose Ordered Sig/Bárbara Route Start Time Stop Time Status Last Admin Dose Admin Ondansetron HCl 4 mg Q4HP PRN IV 06/09/25 01:00 Cancel Ipratropium [place] 0.5 mg Q6HR NEB 06/14/25 10:15 07/12/25 18:26 0.5 MG Levalbuterol HCl 1.25 mg Q6HR NEB 06/15/25 00:00 07/12/25 18:26 1.25 MG Sodium Bicarbonate 75 ml/ Dextrose 1,075 ml @ 700 mls/hr Q1H33M IV 06/16/25 17:15 06/16/25 18:47 Cancel Bumetanide 1 mg BIDD IV 06/17/25 18:00 Cancel Meropenem 50 ml @ 17 mls/hr DAILY@0100 IV 06/21/25 01:00 Cancel Sodium Chloride 10 ml QSHIFT@10,22 IV 06/29/25 22:00 07/12/25 10:25 10 ML Morphine Sulfate 4 mg Q6HPRN PRN IV 07/04/25 15:45 07/12/25 16:04 4 MG Vancomycin HCl 0 ml @ 0 mls/hr UD IV 07/05/25 17:15 Vancomycin HCl 100 ml @ 100 mls/hr Q12H IV 07/06/25 13:00 UNV Sucralfate 1 gm TID@0600,1130,2200 GT 07/07/25 11:30 07/12/25 10:25 1 GM Meropenem 250 ml @ 83.3 mls/hr Q8HR IV 07/09/25 22:00 07/12/25 14:23 83.3 MLS/HR Pantoprazole Sodium 40 mg BID IV 07/09/25 22:00 07/12/25 10:25 40 MG Amiodarone HCl 200 mg Q12HR PO 07/09/25 22:00 07/12/25 10:26 200 MG Oxycodone/ Acetaminophen 1 tab Q4HP PRN PO 07/10/25 15:00 07/12/25 10:26 1 TAB Alprazolam 0.25 mg Q12HP PRN PO 07/10/25 15:00 07/12/25 10:29 0.25 MG Acetaminophen 1,000 mg Q8H PRN IV 07/10/25 15:15 Furosemide 20 mg DAILY IV 07/11/25 10:00 07/12/25 10:25 20 MG Examination General Appearance: Alert, Oriented X3, in moderate respiratory distress HEENT: Atraumatic, PERRLA, EOMI, Mucous membrane moist/pink Respiratory: Bilateral crackles Cardiovascular: Regular rate, Normal S1, Normal S2, No murmurs, no chest wall tenderness Abdominal: Normal bowel sounds, Soft, No tenderness, No hepatospenomegaly, No masses Extremities: No clubbing, No cyanosis, No edema, Normal pulses, No tenderness/swelling Skin: Wound VAC on the surgical area, with no sign of infection or drainage laboratory and microbiology Laboratory Tests 07/12/25 02:40 Test 07/12/25 02:40 Range/Units Serum Glucose 89 74-106 mg/dL Microbiology Date/Time Source Procedure Growth Status 07/10/25 17:00 Urine - [place] Urine Culture - Preliminary Resulted 07/06/25 17:00 Blood Blood Culture - Final NO GROWTH AFTER 5 DAYS OF INCUBATION. Complete 06/17/25 07:00 Stool Stool Culture - Final Complete 06/17/25 07:00 Stool Shiga Toxin I & II - Final Complete 06/11/25 14:25 Nose MRSA Screen - Final Complete Labs and/or images reviewed: Labs reviewed by me, Image(s) reviewed by me Problem List/Assessment/Plan Problem List/Assessment/Plan This is a 54-year-old female with past medical history of HFpEF, paroxysmal AFib, severe TR, severe MR, prediabetic, asthma, CKD 3A, morbid obesity, came to ER due to shortness of breaths, cough and bilateral lower limb swelling for 2 weeks. Admitted on 06/09, put on BiPAP but the patient's condition worsened and got intubated on 06/11. Extubated on 06/26. NEURO: * Extubated on 06/26 CARDIOVASCULAR: Acute on chronic diastolic heart failure exacerbation Paroxysmal Atrial fibrillation with RVR Pulmonary edema due to heart failure Severe aortic insufficiency, mitral valve insufficiency, tricuspid regurg Acquired coagulopathy * Chads Vasc: 2 * Per Cardiology:patient underwent a transesophageal echocardiogram on 03/26/2025 which revealed an EF of 60% with severe aortic insufficiency and with moderate mitral insufficiency. * We will recommend to continue antiarrhythmic therapy with amiodarone, DOAC therapy with Eliquis, and beta-octavoi for rate control . * Outpatient follow up with Dr. Melo in [place] for aortic valve replacement with possible TAVR as well as possible mitral clip. * Plan: Lasix 40 IV daily, amiodarone 200 mg b.i.d. PULMONARY: Acute hypoxic respiratory failure, likely due to pneumonia/COPD exacerbation/asthma exacerbation COPD on 4 L at home Hx of Pna and intubation 2022 Sepsis secondary to Acute Gram-positive and Gram-negative pneumonia Likely COPD on 4L home O2 History of asthma * Plan: Continue IV Abx, and breathing treatment GASTROINTESTINAL: Pneumatosis intestinalis and megacolon likely ischemic bowel Perforation and peritonitis Status s/p laparotomy, subtotal colectomy (ascending and transfer) 06/17, resection of descending colon 06/19, ileocolic anastomosis with protective loop ileostomy, drain placement 06/20 Transaminitis, 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 Evidence of portal venous gas * liver ultrasound shows hepatic steatosis * Surgeon - wound VAC for midline * Today 07/02, the patient got abdominal pain, subsequently developed bleeding from ileostomy and rectal (almost 500 mL). Patient was evaluated by surgeon at the bedside, evaluated the ileostomy, digitize both ileostomy, both patent. Recommended GI evaluation and possible scope, consulted GI, an updated the on-call doctor on phone, reports that she will, and we will assess at the bedside for possible scope. * Abdominal CT 07/05, Bowel wall edema and thickening of the small bowel loops most pronounced in the left abdomen which can be secondary to enteritis, inflammatory bowel disease. No pneumatosis identified.Peripheral splenic hypodensities up to 2.8 cm may represent splenic infarcts. * EGD 07/09, showed 1 cm sliding-type hiatal hernia with no significant erosive esophagitis with minimal gastritis otherwise normal examination up to the 2nd and 3rd part of the duodenum with good bile drainage and no active bleeding * Plan: Protonix 20 mg b.i.d. GENITOURINARY: NYASIA secondary to hemodynamically mediated/VMN requiring hemodialysis 06/20 (1 session) ? Chronic kidney disease Anemia of CKD * Kidney ultrasound shows Normal sonographic appearance of the kidneys. No hydronephrosis. 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 Critical care time spent more than 57 minutes, including patient care, chart review, and updating the family. Excluding any procedures. Case discussed with Plan discussed with: Other My Orders My Orders Orders - ELISEO GOMEZ Procedure Category Date Status Time Vancomycin,Random LAB 07/13/25 Verified 04:00 Creatinine LAB 07/13/25 Verified 04:00 Dietary Evaluation Review Comments: 1) If patient remains NPO > 7 days, consider EN/TPN to meet at least 75% of estimated daily needs 2) If gut is preferred, consider Nepro @ 25 mL/hr goal rate as tolerated. Flush with 200 mL free H2O Q6H. TF regimen will provide 1080 kcals, 49g Pro, and 1236 mL free H2O per 24 hrs. TF regimen will meet ~ 92% estimated energy needs and 52% estimated protein needs. 3) Advance to 60g CCHO renal cardiac diet when medically feasible, pending ST approval 4) Refer to outpatient RD/CDCES for weight management 5) Follow-up with cardiology, pulmonology, or nephrology 6) Continue to monitor I&O, labs, and skin integrity Expected Outcomes/Goals: 1) patient to receive nutritional support within 7 days of NPO status 2) labs to improve 3) diet to advance 4) f/u in 2-3 days Sepsis reassessment post fluid Capillary Refill: < 3 seconds Date of Service: Jul 12, 2025 Billing Provider: ELZA BENJAMIN MD Common Visit Codes: 74325-[id number] CARE 30-74 MIN ELISEO GOMEZ RESHILARIO Jul 12, 2025 20:28 ELZA BENJAMIN MD Jul 13, 2025 14:49
[2025-07-12] MEDS: LIDOCAINE 5% TOPICAL PATCH TOP ONE (21:35)
[2025-07-12] MEDS: ENOXAPARIN SOD 40 MG/0.4 ML SYRINGE SC ONE (21:37)
--- NOTE | 2025-07-12 23:58 | DVHPN2 ---
Progress Note - Dictate Date Seen: Jul 12, 2025 Medical Necessity Reason Pt with a Central, PICC or Fol: Yes The following are medically ne: Central Line, Engel Catheter Subjective Patient was seen and evaluated in follow up in the ICU. Patient is on 3 LPM NC. Patient c/o abdominal pain. There is black discharged from ileostomy. HGB 8.1, HCT 24.4. vital signs Vital Sign Date Time Temp Pulse Resp B/P (MAP) Pulse Ox O2 Delivery O2 Flow Rate FiO2 07/12/25 22:02 101 16 145/50 07/12/25 22:00 99 Nasal Cannula* 3 32 07/12/25 20:00 98.1 98.1 Total Intake and Output 07/11/25 07/11/25 07/12/25 15:00 23:00 07:00 Intake Total 249.9 ml 600 ml 750 ml Output Total 2300 ml 1425 ml Balance 249.9 ml -1700 ml -675 ml medications Current Medications Medications Dose Ordered Sig/Bárbara Route Start Time Stop Time Status Last Admin Dose Admin Ondansetron HCl 4 mg Q4HP PRN IV 06/09/25 01:00 Cancel Ipratropium [place] 0.5 mg Q6HR NEB 06/14/25 10:15 07/12/25 18:26 0.5 MG Levalbuterol HCl 1.25 mg Q6HR NEB 06/15/25 00:00 07/12/25 18:26 1.25 MG Sodium Bicarbonate 75 ml/ Dextrose 1,075 ml @ 700 mls/hr Q1H33M IV 06/16/25 17:15 06/16/25 18:47 Cancel Bumetanide 1 mg BIDD IV 06/17/25 18:00 Cancel Meropenem 50 ml @ 17 mls/hr DAILY@0100 IV 06/21/25 01:00 Cancel Sodium Chloride 10 ml QSHIFT@10,22 IV 06/29/25 22:00 07/12/25 22:03 10 ML Morphine Sulfate 4 mg Q6HPRN PRN IV 07/04/25 15:45 07/12/25 22:02 4 MG Vancomycin HCl 100 ml @ 100 mls/hr Q12H IV 07/06/25 13:00 UNV Sucralfate 1 gm TID@0600,1130,2200 GT 07/07/25 11:30 07/12/25 21:37 1 GM Meropenem 250 ml @ 83.3 mls/hr Q8HR IV 07/09/25 22:00 07/12/25 22:03 83.3 MLS/HR Pantoprazole Sodium 40 mg BID IV 07/09/25 22:00 07/12/25 21:37 40 MG Amiodarone HCl 200 mg Q12HR PO 07/09/25 22:00 07/12/25 21:37 200 MG Oxycodone/ Acetaminophen 1 tab Q4HP PRN PO 07/10/25 15:00 07/12/25 10:26 1 TAB Alprazolam 0.25 mg Q12HP PRN PO 07/10/25 15:00 07/12/25 21:37 0.25 MG Acetaminophen 1,000 mg Q8H PRN IV 07/10/25 15:15 Furosemide 20 mg DAILY IV 07/11/25 10:00 07/12/25 10:25 20 MG Enteral Nutritional Formula 240 ml TIDWM PO 07/13/25 08:00 Enoxaparin Sodium 40 mg DAILY SC 07/13/25 10:00 Lidocaine 1 patch DAILY TOP 07/13/25 10:00 objective GENERAL: Alert and oriented x 3. No acute distress. EYES: PERRL, EOMI. Anicteric. HENT: Moist mucous membranes. LUNGS: Decreased breath sounds. CARDIOVASCULAR: Regular rate and rhythm. ABDOMEN: Soft, nontender and nondistended. EXTREMITIES: No edema. NEUROLOGIC: No focal neurological deficits. SKIN: Warm, dry. laboratory and microbiology Laboratory Tests 07/12/25 02:40 Test 07/12/25 02:40 Range/Units Serum Glucose 89 74-106 mg/dL Problem List Chronic HFpEF, NYHA class IV. Paroxysmal atrial fibrillation, stage III, now NSR (on amiodarone/Elqiuis therapy). Severe aortic valve and mitral valve insufficiency. Acute hypoxic respiratory failure. Asthma. Chronic kidney disease. Thyroid disease. Prediabetes, newly diagnosed. Morbid obesity. History of tobacco use. Assessment/Plan Continued all current supportive medical care. Amiodarone. Diuretics with Lasix. IV antibiotics as ordered. Morphine and Oxycodone for pain management. GI prophylactics. Additional plan as per the hospital course. Critical care time of 45 minutes provided to include time spent evaluation of patient at bedside, when appropriate patient/family education for diagnosis, treatment plan, review of pertinent medical information and discussion of care with specialty providers and PCP. Dietary Evaluation Review Comments: 1) If patient remains NPO > 7 days, consider EN/TPN to meet at least 75% of estimated daily needs 2) If gut is preferred, consider Nepro @ 25 mL/hr goal rate as tolerated. Flush with 200 mL free H2O Q6H. TF regimen will provide 1080 kcals, 49g Pro, and 1236 mL free H2O per 24 hrs. TF regimen will meet ~ 92% estimated energy needs and 52% estimated protein needs. 3) Advance to 60g CCHO renal cardiac diet when medically feasible, pending ST approval 4) Refer to outpatient RD/CDCES for weight management 5) Follow-up with cardiology, pulmonology, or nephrology 6) Continue to monitor I&O, labs, and skin integrity Expected Outcomes/Goals: 1) patient to receive nutritional support within 7 days of NPO status 2) labs to improve 3) diet to advance 4) f/u in 2-3 days Plan discussed with: Patient Capillary Refill: < 3 seconds URBANO TRUONG MD Jul 12, 2025 23:58
[2025-07-13] VITALS (34 sets, daily range): BP systolic 118–166; BP diastolic 40–77; PULSE 85–107; RESP 11–22; TEMP 98.1–100; O2SAT 94–100
[2025-07-13 04:00] LABS: Hemoglobin 7.9 g/dL (12.2-16.2); Nucleated Red Blood Cells % 0.0 %
[2025-07-13 04:03] LABS: Hematocrit 24.3 % (36.0-46.0); Mean Corpuscular Hemoglobin 28.0 pg (28.0-32.0); Mean Corpuscular Volume 85.8 fL (80.0-100.0)
[2025-07-13 04:16] LABS: Alanine Aminotransferase 40 U/L (7-40); Anion Gap 8 (5-15); BUN/Creatinine Ratio 16.5 (10.0-20.0); Blood Urea Nitrogen 14 mg/dL (9-23); Carbon Dioxide 29 mmol/L (20-31); Chloride 102 mmol/L (98-107); Glucose 90 mg/dL (74-106); Sodium 139 mmol/L (136-145)
[2025-07-13 04:18] LABS: Bilirubin, Total 0.4 mg/dL (0.2-1.0)
[2025-07-13 04:31] LABS: Albumin 2.4 g/dL (3.2-4.8); Alkaline Phosphatase 125 U/L (46-116); Calcium 8.0 mg/dL (8.7-10.4); Potassium 3.3 mmol/L (3.5-5.1); Total Protein 5.0 g/dL (5.7-8.2)
[2025-07-13] MEDS: POTASSIUM CHL 20MEQ/100ML 100 ML IV SCH (05:15)
[2025-07-13] MEDS: Ensure HIGH Protein Chocolate 8oz Bottle PO SCH (08:29)
[2025-07-13] MEDS: LIDOCAINE 5% TOPICAL PATCH TOP SCH ×2 (10:00→22:43)
[2025-07-13] MEDS: ENOXAPARIN SOD 40 MG/0.4 ML SYRINGE SC SCH (10:24)
--- NOTE | 2025-07-13 15:16 | DVHPN2 ---
Progress Note - Dictate Date Seen: Jul 13, 2025 Medical Necessity Reason Pt with a Central, PICC or Fol: Yes The following are medically ne: Central Line, [place]el Catheter Subjective No new complaints Tolerating soft mechanical diet No significant UGI findings an UGI bleed H/H down to 7.9 No active GI bleeding reported vital signs Vital Sign Date Time Temp Pulse Resp B/P (MAP) Pulse Ox O2 Delivery O2 Flow Rate FiO2 07/13/25 14:00 16 100 Nasal Cannula* 3 32 07/13/25 14:00 97 07/13/25 14:00 147/54 (85) 07/13/25 13:00 98.1 98.1 Total Intake and Output 07/12/25 07/12/25 07/13/25 15:00 23:00 07:00 Intake Total 250 ml 1050 ml 833.3 ml Output Total 2575 ml 1275 ml Balance 250 ml -1525 ml -441.7 ml medications Current Medications Medications Dose Ordered Sig/Bárbara Route Start Time Stop Time Status Last Admin Dose Admin Ondansetron HCl 4 mg Q4HP PRN IV 06/09/25 01:00 Cancel Ipratropium [place] 0.5 mg Q6HR NEB 06/14/25 10:15 07/13/25 11:43 0.5 MG Levalbuterol HCl 1.25 mg Q6HR NEB 06/15/25 00:00 07/13/25 11:43 1.25 MG Sodium Bicarbonate 75 ml/ Dextrose 1,075 ml @ 700 mls/hr Q1H33M IV 06/16/25 17:15 06/16/25 18:47 Cancel Bumetanide 1 mg BIDD IV 06/17/25 18:00 Cancel Meropenem 50 ml @ 17 mls/hr DAILY@0100 IV 06/21/25 01:00 Cancel Sodium Chloride 10 ml QSHIFT@10,22 IV 06/29/25 22:00 07/13/25 10:26 10 ML Morphine Sulfate 4 mg Q6HPRN PRN IV 07/04/25 15:45 07/13/25 07:57 4 MG Vancomycin HCl 100 ml @ 100 mls/hr Q12H IV 07/06/25 13:00 UNV Sucralfate 1 gm TID@0600,1130,2200 GT 07/07/25 11:30 07/13/25 10:26 1 GM Pantoprazole Sodium 40 mg BID IV 07/09/25 22:00 07/13/25 10:20 40 MG Amiodarone HCl 200 mg Q12HR PO 07/09/25 22:00 07/13/25 10:22 200 MG Oxycodone/ Acetaminophen 1 tab Q4HP PRN PO 07/10/25 15:00 07/13/25 03:24 1 TAB Alprazolam 0.25 mg Q12HP PRN PO 07/10/25 15:00 07/12/25 21:37 0.25 MG Acetaminophen 1,000 mg Q8H PRN IV 07/10/25 15:15 Furosemide 20 mg DAILY IV 07/11/25 10:00 07/13/25 10:21 20 MG Enteral Nutritional Formula 240 ml TIDWM PO 07/13/25 08:00 07/13/25 13:59 240 ML Enoxaparin Sodium 40 mg DAILY SC 07/13/25 10:00 07/13/25 10:24 40 MG Lidocaine 1 patch DAILY TOP 07/13/25 10:00 objective GENERAL:Normal, ABDOMEN:Normal (Nondistended, soft, depressible, midline wound with wound VAC placed and no surrounding signs of infection, right lower quadrant ileostomy with stool mixed with blood in bag, nontender) laboratory and microbiology Laboratory Tests 07/13/25 03:18 Test 07/13/25 03:18 Range/Units Serum Glucose 90 74-106 mg/dL Problems(with codes): (1) Sepsis (2) GI bleed (3) Pneumatosis intestinalis (4) Acute on chronic respiratory failure with hypoxemia Prognosis Plan Advance diet as tolerated IV iron supplementation IV Protonix 40 mg daily Patient is downgraded to [place] Discharge planning as per ICU hospitalist team I will follow up patient as needed Dietary Evaluation Review Comments: 1) If patient remains NPO > 7 days, consider EN/TPN to meet at least 75% of estimated daily needs 2) If gut is preferred, consider Nepro @ 25 mL/hr goal rate as tolerated. Flush with 200 mL free H2O Q6H. TF regimen will provide 1080 kcals, 49g Pro, and 1236 mL free H2O per 24 hrs. TF regimen will meet ~ 92% estimated energy needs and 52% estimated protein needs. 3) Advance to 60g CCHO renal cardiac diet when medically feasible, pending ST approval 4) Refer to outpatient RD/CDCES for weight management 5) Follow-up with cardiology, pulmonology, or nephrology 6) Continue to monitor I&O, labs, and skin integrity Expected Outcomes/Goals: 1) patient to receive nutritional support within 7 days of NPO status 2) labs to improve 3) diet to advance 4) f/u in 2-3 days Plan discussed with: Other (ICU Nurse) Capillary Refill: < 3 seconds GOLD MARTINEZ MD Jul 13, 2025 15:16
--- NOTE | 2025-07-13 19:26 | DVHPNRES ---
Progress Note Date Seen: Jul 13, 2025 Resident Creating Document: ELISEO GOMEZ RESDIENT Medical Necessity Reason Pt with a Central, PICC or Fol: Yes The following are medically ne: Central Line, Eng[place] Catheter Subjective Review of Systems Patient seen and examined at the bedside. Patient has abdominal pain, and has black discharged from ileostomy. Objective vital signs Vital Sign Date Time Temp Pulse Resp B/P (MAP) Pulse Ox O2 Delivery O2 Flow Rate FiO2 07/13/25 18:32 97 12 100 07/13/25 18:32 Nasal Cannula 3.0 07/13/25 18:32 32 07/13/25 18:00 145/54 (84) 07/13/25 16:00 98.6 98.6 Total Intake and Output 07/12/25 07/12/25 07/13/25 15:00 23:00 07:00 Intake Total 250 ml 1050 ml 833.3 ml Output Total 2575 ml 1275 ml Balance 250 ml -1525 ml -441.7 ml medications Current Medications Medications Dose Ordered Sig/Bárbara Route Start Time Stop Time Status Last Admin Dose Admin Ondansetron HCl 4 mg Q4HP PRN IV 06/09/25 01:00 Cancel Ipratropium [place] 0.5 mg Q6HR NEB 06/14/25 10:15 07/13/25 18:32 0.5 MG Levalbuterol HCl 1.25 mg Q6HR NEB 06/15/25 00:00 07/13/25 18:32 1.25 MG Sodium Bicarbonate 75 ml/ Dextrose 1,075 ml @ 700 mls/hr Q1H33M IV 06/16/25 17:15 06/16/25 18:47 Cancel Bumetanide 1 mg BIDD IV 06/17/25 18:00 Cancel Meropenem 50 ml @ 17 mls/hr DAILY@0100 IV 06/21/25 01:00 Cancel Sodium Chloride 10 ml QSHIFT@ IV 06/29/25 22:00 07/13/25 10:26 10 ML Morphine Sulfate 4 mg Q6HPRN PRN IV 07/04/25 15:45 07/13/25 16:07 4 MG Vancomycin HCl 100 ml @ 100 mls/hr Q12H IV 07/06/25 13:00 UNV Sucralfate 1 gm TID@0600,1130,2200 GT 07/07/25 11:30 07/13/25 10:26 1 GM Pantoprazole Sodium 40 mg BID IV 07/09/25 22:00 07/13/25 10:20 40 MG Amiodarone HCl 200 mg Q12HR PO 07/09/25 22:00 07/13/25 10:22 200 MG Oxycodone/ Acetaminophen 1 tab Q4HP PRN PO 07/10/25 15:00 07/13/25 03:24 1 TAB Alprazolam 0.25 mg Q12HP PRN PO 07/10/25 15:00 07/12/25 21:37 0.25 MG Acetaminophen 1,000 mg Q8H PRN IV 07/10/25 15:15 Furosemide 20 mg DAILY IV 07/11/25 10:00 07/13/25 10:21 20 MG Enteral Nutritional Formula 240 ml TIDWM PO 07/13/25 08:00 07/13/25 13:59 240 ML Enoxaparin Sodium 40 mg DAILY SC 07/13/25 10:00 07/13/25 10:24 40 MG Lidocaine 1 patch DAILY TOP 07/13/25 10:00 Examination General Appearance: Alert, Oriented X3, in moderate respiratory distress HEENT: Atraumatic, PERRLA, EOMI, Mucous membrane moist/pink Respiratory: Bilateral crackles Cardiovascular: Regular rate, Normal S1, Normal S2, No murmurs, no chest wall tenderness Abdominal: Normal bowel sounds, Soft, No tenderness, No hepatospenomegaly, No masses Extremities: No clubbing, No cyanosis, No edema, Normal pulses, No tenderness/swelling Skin: Wound VAC on the surgical area, with no sign of infection or drainage laboratory and microbiology Laboratory Tests 07/13/25 03:18 Test 07/13/25 03:18 Range/Units Serum Glucose 90 74-106 mg/dL Microbiology Date/Time Source Procedure Growth Status 07/10/25 17:00 Urine - [place] Urine Culture - Preliminary Resulted 07/06/25 17:00 Blood Blood Culture - Final NO GROWTH AFTER 5 DAYS OF INCUBATION. Complete 06/17/25 07:00 Stool Stool Culture - Final Complete 06/17/25 07:00 Stool Shiga Toxin I & II - Final Complete 06/11/25 14:25 Nose MRSA Screen - Final Complete Labs and/or images reviewed: Image(s) reviewed by me Problem List/Assessment/Plan Problem List/Assessment/Plan This is a 54-year-old female with past medical history of HFpEF, paroxysmal AFib, severe TR, severe MR, prediabetic, asthma, CKD 3A, morbid obesity, came to ER due to shortness of breaths, cough and bilateral lower limb swelling for 2 weeks. Admitted on 06/09, put on BiPAP but the patient's condition worsened and got intubated on 06/11. Extubated on 06/26. NEURO: * Extubated on 06/26 CARDIOVASCULAR: Acute on chronic diastolic heart failure exacerbation Paroxysmal Atrial fibrillation with RVR Pulmonary edema due to heart failure Severe aortic insufficiency, mitral valve insufficiency, tricuspid regurg Acquired coagulopathy * Chads Vasc: 2 * Per Cardiology:patient underwent a transesophageal echocardiogram on 03/26/2025 which revealed an EF of 60% with severe aortic insufficiency and with moderate mitral insufficiency. * We will recommend to continue antiarrhythmic therapy with amiodarone, DOAC therapy with Eliquis, and beta-octavio for rate control . * Outpatient follow up with Dr. Melo in [place] for aortic valve replacement with possible TAVR as well as possible mitral clip. * Plan: Lasix 40 IV daily, amiodarone 200 mg b.i.d. planned for right and left heart catheterization on 07/14 and [facility] PULMONARY: Acute hypoxic respiratory failure, likely due to pneumonia/COPD exacerbation/asthma exacerbation COPD on 4 L at home Hx of Pna and intubation 2022 Sepsis secondary to Acute Gram-positive and Gram-negative pneumonia Likely COPD on 4L home O2 History of asthma * Plan: Continue IV Abx, and breathing treatment GASTROINTESTINAL: Pneumatosis intestinalis and megacolon likely ischemic bowel Perforation and peritonitis Status s/p laparotomy, subtotal colectomy (ascending and transfer) 06/17, resection of descending colon 06/19, ileocolic anastomosis with protective loop ileostomy, drain placement 06/20 Transaminitis, 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 Evidence of portal venous gas * liver ultrasound shows hepatic steatosis * Surgeon - wound VAC for midline * Today 07/02, the patient got abdominal pain, subsequently developed bleeding from ileostomy and rectal (almost 500 mL). Patient was evaluated by surgeon at the bedside, evaluated the ileostomy, digitize both ileostomy, both patent. Recommended GI evaluation and possible scope, consulted GI, an updated the on-call doctor on phone, reports that she will, and we will assess at the bedside for possible scope. * Abdominal CT 07/05, Bowel wall edema and thickening of the small bowel loops most pronounced in the left abdomen which can be secondary to enteritis, inflammatory bowel disease. No pneumatosis identified.Peripheral splenic hypodensities up to 2.8 cm may represent splenic infarcts. * EGD 07/09, showed 1 cm sliding-type hiatal hernia with no significant erosive esophagitis with minimal gastritis otherwise normal examination up to the 2nd and 3rd part of the duodenum with good bile drainage and no active bleeding * Plan: Protonix 40 mg daily GENITOURINARY: NYASIA secondary to hemodynamically mediated/VMN requiring hemodialysis 06/20 (1 session) ? Chronic kidney disease Anemia of CKD * Kidney ultrasound shows Normal sonographic appearance of the kidneys. No hydronephrosis. 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 Critical care time spent more than 57 minutes, including patient care, chart review, and updating the family. Excluding any procedures. Case discussed with Plan discussed with: Other My Orders My Orders Orders - ELISEO GOMEZ RESDIDOMONIQUE Procedure Category Date Status Time Nutritional PHA 07/13/25 In Process Supplements (Ensure 08:00 Enoxaparin Sodium PHA 07/13/25 In Process (Lovenox) 10:00 Lidocaine 5% Topical PHA 07/13/25 In Process Patch (Lidoderm 5% 10:00 * Cardiology Consult CONS 07/13/25 Transmitted 08:13 Dietary Evaluation Review Comments: 1) If patient remains NPO > 7 days, consider EN/TPN to meet at least 75% of estimated daily needs 2) If gut is preferred, consider Nepro @ 25 mL/hr goal rate as tolerated. Flush with 200 mL free H2O Q6H. TF regimen will provide 1080 kcals, 49g Pro, and 1236 mL free H2O per 24 hrs. TF regimen will meet ~ 92% estimated energy needs and 52% estimated protein needs. 3) Advance to 60g CCHO renal cardiac diet when medically feasible, pending ST approval 4) Refer to outpatient RD/CDCES for weight management 5) Follow-up with cardiology, pulmonology, or nephrology 6) Continue to monitor I&O, labs, and skin integrity Expected Outcomes/Goals: 1) patient to receive nutritional support within 7 days of NPO status 2) labs to improve 3) diet to advance 4) f/u in 2-3 days Sepsis reassessment post fluid Capillary Refill: < 3 seconds Date of Service: Jul 13, 2025 Billing Provider: ELZA BENJAMIN MD Common Visit Codes: 02369-[id number] CARE 30-74 MIN ELISEO GOMEZ Jul 13, 2025 19:26 ELZA BENJAMIN MD Jul 14, 2025 14:58
[2025-07-13] MEDS ORDERED: ACETAMINOPHEN 325 MG TAB PO PRN (19:30)
[2025-07-13 21:29] LABS: INR 1.11 (0.9-1.15); Prothrombin Time 11.6 sec (9.3-11.8)
[2025-07-13] MEDS: FLUCONAZOLE 200MG/100ML 100 ML IV ONE (22:40)
[2025-07-13] MEDS: MORPHINE SULFATE 4 MG/ML SYR/VIAL IV PRN (22:42)
[2025-07-14] VITALS (34 sets, daily range): BP systolic 131–170; BP diastolic 47–76; PULSE 75–99; RESP 10–19; TEMP 97.5–98.5; O2SAT 94–100
--- NOTE | 2025-07-14 00:01 | DVHPN2 ---
Progress Note - Dictate Date Seen: Jul 13, 2025 Medical Necessity Reason Pt with a Central, PICC or Fol: Yes The following are medically ne: Central Line, Engel Catheter Subjective Patient was seen and evaluated in follow up in the ICU. Patient remains on 3 LPM NC. Patient underwent EGD which did nto show evidence of UGI bleed. Patient is tolerating diet. HGB 7.9, HCT 24.3, K 3.3. Prelim urine culture growing approximately 80,000 CFU/mL yeast. vital signs Vital Sign Date Time Temp Pulse Resp B/P (MAP) Pulse Ox O2 Delivery O2 Flow Rate FiO2 07/13/25 23:01 100 17 151/55 (87) 99 07/13/25 22:00 Nasal Cannula* 3 32 07/13/25 21:00 99.0 99.0 Total Intake and Output 07/12/25 07/12/25 07/13/25 15:00 23:00 07:00 Intake Total 250 ml 1050 ml 833.3 ml Output Total 2575 ml 1275 ml Balance 250 ml -1525 ml -441.7 ml medications Current Medications Medications Dose Ordered Sig/Bárbara Route Start Time Stop Time Status Last Admin Dose Admin Ondansetron HCl 4 mg Q4HP PRN IV 06/09/25 01:00 Cancel Ipratropium [place] 0.5 mg Q6HR NEB 06/14/25 10:15 07/13/25 18:32 0.5 MG Levalbuterol HCl 1.25 mg Q6HR NEB 06/15/25 00:00 07/13/25 18:32 1.25 MG Sodium Bicarbonate 75 ml/ Dextrose 1,075 ml @ 700 mls/hr Q1H33M IV 06/16/25 17:15 06/16/25 18:47 Cancel Bumetanide 1 mg BIDD IV 06/17/25 18:00 Cancel Meropenem 50 ml @ 17 mls/hr DAILY@0100 IV 06/21/25 01:00 Cancel Sodium Chloride 10 ml QSHIFT@ IV 06/29/25 22:00 07/13/25 22:41 10 ML Vancomycin HCl 100 ml @ 100 mls/hr Q12H IV 07/06/25 13:00 UNV Sucralfate 1 gm TID@0600,1130,2200 GT 07/07/25 11:30 07/13/25 22:40 1 GM Amiodarone HCl 200 mg Q12HR PO 07/09/25 22:00 07/13/25 22:41 200 MG Alprazolam 0.25 mg Q12HP PRN PO 07/10/25 15:00 07/13/25 22:44 0.25 MG Furosemide 20 mg DAILY IV 07/11/25 10:00 07/13/25 10:21 20 MG Enteral Nutritional Formula 240 ml TIDWM PO 07/13/25 08:00 07/13/25 13:59 240 ML Enoxaparin Sodium 40 mg DAILY SC 07/13/25 10:00 Hold 07/13/25 10:24 40 MG Pantoprazole Sodium 40 mg DAILY@0600 PO 07/14/25 06:00 Acetaminophen 650 mg Q6HP PRN PO 07/13/25 19:30 Fluconazole 100 ml @ 100 mls/hr DAILY IV 07/14/25 10:00 Lidocaine 1 patch DAILY TOP 07/13/25 22:15 07/13/25 22:43 1 PATCH Morphine Sulfate 4 mg Q6HPRN PRN IV 07/13/25 22:15 07/13/25 22:42 4 MG Oxycodone/ Acetaminophen 1 tab Q4HP PRN PO 07/13/25 22:15 objective GENERAL: Alert and oriented x 3. No acute distress. EYES: PERRL, EOMI. Anicteric. HENT: Moist mucous membranes. LUNGS: Decreased breath sounds. CARDIOVASCULAR: Regular rate and rhythm. ABDOMEN: Soft, nontender and nondistended. EXTREMITIES: No edema. NEUROLOGIC: No focal neurological deficits. SKIN: Warm, dry. laboratory and microbiology Laboratory Tests 07/13/25 03:18 Test 07/13/25 03:18 Range/Units Serum Glucose 90 74-106 mg/dL Problem List Chronic HFpEF, NYHA class IV. Paroxysmal atrial fibrillation, stage III, now NSR (on amiodarone/Elqiuis therapy). Severe aortic valve and mitral valve insufficiency. Acute hypoxic respiratory failure. Asthma. Chronic kidney disease. Thyroid disease. Prediabetes, newly diagnosed. Morbid obesity. History of tobacco use. Assessment/Plan Continued all current supportive medical care. Amiodarone. Diuretics with Lasix. IV antibiotics as ordered. Morphine and Oxycodone for pain management. GI prophylactics. Additional plan as per the hospital course. Critical care time of 45 minutes provided to include time spent evaluation of patient at bedside, when appropriate patient/family education for diagnosis, treatment plan, review of pertinent medical information and discussion of care with specialty providers and PCP. Dietary Evaluation Review Comments: 1) If patient remains NPO > 7 days, consider EN/TPN to meet at least 75% of estimated daily needs 2) If gut is preferred, consider Nepro @ 25 mL/hr goal rate as tolerated. Flush with 200 mL free H2O Q6H. TF regimen will provide 1080 kcals, 49g Pro, and 1236 mL free H2O per 24 hrs. TF regimen will meet ~ 92% estimated energy needs and 52% estimated protein needs. 3) Advance to 60g CCHO renal cardiac diet when medically feasible, pending ST approval 4) Refer to outpatient RD/CDCES for weight management 5) Follow-up with cardiology, pulmonology, or nephrology 6) Continue to monitor I&O, labs, and skin integrity Expected Outcomes/Goals: 1) patient to receive nutritional support within 7 days of NPO status 2) labs to improve 3) diet to advance 4) f/u in 2-3 days Plan discussed with: Patient Capillary Refill: < 3 seconds URBANO TRUONG MD Jul 14, 2025 00:01
[2025-07-14] MEDS: OXYCODONE W/ ACETAMINOPHEN 5/325MG TABLET PO PRN (02:34)
[2025-07-14 04:23] LABS: Hemoglobin 7.9 g/dL (12.2-16.2)
[2025-07-14 04:26] LABS: Hematocrit 23.6 % (36.0-46.0); Mean Corpuscular Hemoglobin 28.9 pg (28.0-32.0); Mean Corpuscular Volume 86.1 fL (80.0-100.0); Nucleated Red Blood Cells % 0.2 %
[2025-07-14 04:37] LABS: Chloride 103 mmol/L (98-107); Potassium 3.5 mmol/L (3.5-5.1); Sodium 141 mmol/L (136-145)
[2025-07-14 04:48] LABS: Alkaline Phosphatase 115 U/L (46-116); BUN/Creatinine Ratio 15.8 (10.0-20.0); Blood Urea Nitrogen 12 mg/dL (9-23); Glucose 85 mg/dL (74-106)
[2025-07-14 04:49] LABS: Alanine Aminotransferase 30 U/L (7-40)
[2025-07-14 04:50] LABS: Bilirubin, Total 0.4 mg/dL (0.2-1.0)
[2025-07-14 04:54] LABS: Albumin 2.2 g/dL (3.2-4.8); Calcium 8.0 mg/dL (8.7-10.4); Total Protein 4.8 g/dL (5.7-8.2)
[2025-07-14 05:17] LABS: Anion Gap 10 (5-15); Carbon Dioxide 28 mmol/L (20-31)
[2025-07-14] MEDS: PANTOPRAZOLE 40 MG TAB PO SCH (06:00)
[2025-07-14] MEDS: FLUCONAZOLE 200MG/100ML 100 ML IV SCH (09:53)
[2025-07-14] MEDS: IRON SUCROSE COMPLEX 110 ML IV SCH (15:00)
[2025-07-14] MEDS: HEPARIN IN NS 1000Units/500mL 1,500 ML ONE (16:18)
[2025-07-14] MEDS: IODIXANOL 320MG/ML 100ML BTL IV ONE (16:18)
[2025-07-14] MEDS: MIDAZOLAM HCL 2MG/2ML 2ml VIAL (1mg/ml) IV ONE (16:30)
[2025-07-14] MEDS: fentaNYL CITRATE 100 MCG/2 ML VL IV ONE (16:30)
[2025-07-14] MEDS: LIDOCAINE VISCOUS 2% 15ML UD PO ONE (16:30)
[2025-07-14] MEDS: fentaNYL CITRATE 100 MCG/2 ML VL ONE ×2 (16:54→17:59)
[2025-07-14] MEDS: HEPARIN SODIUM (PORCINE) 5000 UNITS/ML 1ML VIAL ONE (16:54)
[2025-07-14] MEDS: ANGIOMAX 250 MG VIAL IV ONE (16:54)
[2025-07-14] MEDS: SODIUM CHL 0.9% 50 ML ONE (16:55)
[2025-07-14] MEDS: MIDAZOLAM HCL 2MG/2ML 2ml VIAL (1mg/ml) ONE ×2 (16:55→18:00)
[2025-07-14] MEDS: LIDOCAINE 2%HCL (LOCAL ANESTH.) INJ 20ML MDV ONE (16:55)
[2025-07-14] MEDS: HYDROmorphone HCL 2 MG/ML VL/or syr ONE (17:09)
[2025-07-14] MEDS: VERAPAMIL 2.5MG/ML INJ 2ML VIAL IV ONE (17:15)
--- NOTE | 2025-07-14 18:32 | DVHOP2 ---
Operative Report - 2 Report Details Date: 07/14/25 Preop Diagnosis: Mitral and aortic insufficiency Postop Diagnosis: Same Surgeon: Elena Miller MD Anesthesiologist: Conscious sedation Anesthesia: General, Mac, Local Consent: The patient was informed of the risks and benefits of the procedure. These include but are not limited to complications of anesthesia, postoperative infection, incomplete relief of symptoms, recurrence of symptoms, damage to blood vessels, nerves and tendons, deep venous thrombosis, pulmonary embolism and possible need for repeat surgery in the future. Complications: No complications Findings: Severe mitral and aortic insufficiency Indications for Surgery: Shortness of breath severe mitral and aortic insufficiency Name of Procedure Performed Transesophageal echocardiogram Procedure Details Procedure Details: Prior full informed consent obtained the patient was prepped and draped in usual fashion and lidocaine gel was given to gargle. The patient and at passage of transesophageal probe after placing the patient in left lateral and semi-Milton position. The probe was passed without difficulty. Standard views obtained including transgastric views. A bubble study was performed. Findings: Technically good study. The patient is in a sinus rhythm. There was [id number] LV enlargement. Left atrial enlargement. Mild aortic root enlargement. The right atrium and right ventricle within normal limits. The mitral aortic and tricuspid are structurally normal the pulmonic is normal. Left ventricular systolic function is preserved at 60% with normal RV function. Doppler revealed severe mitral and aortic insufficiency. [id number] tricuspid regurgitation. No significant pulmonic insufficiency. No pericardial effusion masses or vegetations. The left atrial appendage is clean. No intra-atrial septal defects. No PFO or VSD noted. Transgastric views were unremarkable. Bubble study was negative. Condition Good Disposition Still a Patient Date of Service: Jul 14, 2025 Billing Provider: ELENA MILLER Sr., MD Cardiology Common Codes: 74223-[id number] INP/OBS CARE (High) Cardiology Procedure Codes: 91565-VPA W/IMG DOC INCL PROB ACQ (Bubble study performed.) ELENA MILLER Sr., MD Jul 14, 2025 18:32
--- NOTE | 2025-07-14 18:41 | DVHOP2 ---
Operative Report - 2 Report Details Date: 07/14/25 Preop Diagnosis: Mitral and aortic insufficiency Postop Diagnosis: Severe mitral and aortic insufficiency. CAD involving the RCA. Surgeon: Elena Miller MD Anesthesiologist: Conscious sedation Anesthesia: General, Mac, Local Consent: The patient was informed of the risks and benefits of the procedure. These include but are not limited to complications of anesthesia, postoperative infection, incomplete relief of symptoms, recurrence of symptoms, damage to blood vessels, nerves and tendons, deep venous thrombosis, pulmonary embolism and possible need for repeat surgery in the future. Complications: No complications Findings: CAD. RCA stenosis. Severe mitral and aortic insufficiency. Indications for Surgery: Significant shortness of breath and chest pain. Severe AI and MR Name of Procedure Performed Right and left heart catheterization. Bilateral cine coronary angiography. Left ventriculography. Procedure Details Procedure Details: Prior full informed consent obtained the patient was prepped and draped in usual fashion and 2% lidocaine was used in the right wrist and in the left femoral area. A six [place] sheath was passed into the right radial artery and a three five EBU guiding catheter was used to cannulate the left main. A multipurpose catheter was used to cannulate the RCA and left ventricle. Through the femoral sheath a [place]-Alyssia catheter was advanced into the right atrium right ventricle pulmonary artery capillary wedge pressure positions where pressures were obtained and recorded. Cardiac output was determined by the ther modilution technique in triplicate. O2 saturations were not obtained. Hemodynamics: Right atrial pressure was approximately 10 with a right ventricular pressure of 25/10. A pulmonary artery pressure of 25/15. Wedge pressure was 8-10. Cardiac output was 6.4 to L/min with an index of 3.05 L/min. Left ventricular pressure was one hundred forty-one overt 13. Aortic blood pressure was 140/69. No gradient across the aortic valve on pullback. Coronary anatomy: RCA is a large vessel. It has a narrowing in its proximal portion. It appears to be around 75%. Fractional flow reserve evaluation reveals an FFR of 0.76 consistent with severe stenosis of the RCA. The mid and distal segments are free of significant disease. The posterolateral branches are normal. The PDA is normal. The left main is large and normal. The LAD is large. Two diagonals and septals are free of significant disease. The LAD is normal in its entirety. The circumflex has two large obtuse marginal branches. The circumflex pro ximally and the circumflex proper along the AV groove is within normal limits. Ventriculography in the YADAV projection shows an EF of 65%. Impression: Normal left ventricular end-diastolic pressure at rest. Normal ejection fraction. Significant disease of the RCA. Recommendations: Patient will be referred for coronary revascularization and aortic and mitral valve replacement/repair. Condition Good Disposition Still a Patient Date of Service: Jul 14, 2025 Billing Provider: ELENA MILLER Sr., MD Cardiology Common Codes: 40480-QEXGFXB INP/OBS CARE (High) Cardiology Procedure Codes: 56300-FTGP HEART CATH W/INTRA INJ, 74561-D/L HEART CATH W/BYPASS GFT, 63169-E/R & L HEART CATH FOR LVG (Fractional flow reserve evaluation of the RCA) ELENA MILLER Sr., MD Jul 14, 2025 18:41
--- NOTE | 2025-07-14 19:05 | DVHPNRES ---
Progress Note Date Seen: Jul 14, 2025 Resident Creating Document: ELISEO GOMEZ RESDIENT Medical Necessity Reason Pt with a Central, PICC or Fol: Yes The following are medically ne: Central Line, Engel Catheter Subjective Review of Systems Patient seen and examined at the bedside. Patient has abdominal pain, and has black discharged from ileostomy. Objective vital signs Vital Sign Date Time Temp Pulse Resp B/P (MAP) Pulse Ox O2 Delivery O2 Flow Rate FiO2 07/14/25 18:40 75 12 100 07/14/25 18:32 Nasal Cannula 3.0 07/14/25 18:32 32 07/14/25 17:09 141/64 07/14/25 15:00 97.9 97.9 Total Intake and Output 07/13/25 07/13/25 07/14/25 15:00 23:00 07:00 Intake Total 383.2 ml 933.3 ml 500 ml Output Total 3000 ml 2000 ml Balance 383.2 ml -2066.7 ml -1500 ml medications Current Medications Medications Dose Ordered Sig/Bárbara Route Start Time Stop Time Status Last Admin Dose Admin Ondansetron HCl 4 mg Q4HP PRN IV 06/09/25 01:00 Cancel Ipratropium [place] 0.5 mg Q6HR NEB 06/14/25 10:15 07/14/25 18:32 0.5 MG Levalbuterol HCl 1.25 mg Q6HR NEB 06/15/25 00:00 07/14/25 18:32 1.25 MG Sodium Bicarbonate 75 ml/ Dextrose 1,075 ml @ 700 mls/hr Q1H33M IV 06/16/25 17:15 06/16/25 18:47 Cancel Bumetanide 1 mg BIDD IV 06/17/25 18:00 Cancel Meropenem 50 ml @ 17 mls/hr DAILY@0100 IV 06/21/25 01:00 Cancel Sodium Chloride 10 ml QSHIFT@10,22 IV 06/29/25 22:00 07/14/25 09:55 10 ML Vancomycin HCl 100 ml @ 100 mls/hr Q12H IV 07/06/25 13:00 UNV Sucralfate 1 gm TID@0600,1130,2200 GT 07/07/25 11:30 07/13/25 22:40 1 GM Amiodarone HCl 200 mg Q12HR PO 07/09/25 22:00 07/14/25 09:55 200 MG Alprazolam 0.25 mg Q12HP PRN PO 07/10/25 15:00 07/13/25 22:44 0.25 MG Furosemide 20 mg DAILY IV 07/11/25 10:00 07/14/25 09:55 20 MG Enteral Nutritional Formula 240 ml TIDWM PO 07/13/25 08:00 07/13/25 13:59 240 ML Enoxaparin Sodium 40 mg DAILY SC 07/13/25 10:00 Hold 07/13/25 10:24 40 MG Pantoprazole Sodium 40 mg DAILY@0600 PO 07/14/25 06:00 Acetaminophen 650 mg Q6HP PRN PO 07/13/25 19:30 Fluconazole 100 ml @ 100 mls/hr DAILY IV 07/14/25 10:00 07/14/25 09:53 100 MLS/HR Lidocaine 1 patch DAILY TOP 07/13/25 22:15 07/13/25 22:43 1 PATCH Morphine Sulfate 4 mg Q6HPRN PRN IV 07/13/25 22:15 07/14/25 09:54 4 MG Oxycodone/ Acetaminophen 1 tab Q4HP PRN PO 07/13/25 22:15 07/14/25 14:40 1 TAB Iron Sucrose 110 ml @ 110 mls/hr DAILY@1200 IV 07/14/25 15:00 07/18/25 12:59 Examination General Appearance: Alert, Oriented X3, in moderate respiratory distress HEENT: Atraumatic, PERRLA, EOMI, Mucous membrane moist/pink Respiratory: Bilateral crackles Cardiovascular: Regular rate, Normal S1, Normal S2, No murmurs, no chest wall tenderness Abdominal: Normal bowel sounds, Soft, No tenderness, No hepatospenomegaly, No masses Extremities: No clubbing, No cyanosis, No edema, Normal pulses, No tenderness/swelling Skin: Wound VAC on the surgical area, with no sign of infection or drainage laboratory and microbiology Laboratory Tests 07/14/25 03:30 Test 07/14/25 03:30 Range/Units Serum Glucose 85 74-106 mg/dL Microbiology Date/Time Source Procedure Growth Status 07/10/25 17:00 Urine - [place] Urine Culture - Preliminary Resulted 07/06/25 17:00 Blood Blood Culture - Final NO GROWTH AFTER 5 DAYS OF INCUBATION. Complete 06/17/25 07:00 Stool Stool Culture - Final Complete 06/17/25 07:00 Stool Shiga Toxin I & II - Final Complete 06/11/25 14:25 Nose MRSA Screen - Final Complete Problem List/Assessment/Plan Problem List/Assessment/Plan This is a 54-year-old female with past medical history of HFpEF, paroxysmal AFib, severe TR, severe MR, prediabetic, asthma, CKD 3A, morbid obesity, came to ER due to shortness of breaths, cough and bilateral lower limb swelling for 2 weeks. Admitted on 06/09, put on BiPAP but the patient's condition worsened and got intubated on 06/11. Extubated on 06/26. NEURO: * Extubated on 06/26 CARDIOVASCULAR: Acute on chronic diastolic heart failure exacerbation Paroxysmal Atrial fibrillation with RVR Pulmonary edema due to heart failure Severe aortic insufficiency, mitral valve insufficiency, tricuspid regurg Acquired coagulopathy * Chads Vasc: 2 * Per Cardiology:patient underwent a transesophageal echocardiogram on 03/26/2025 which revealed an EF of 60% with severe aortic insufficiency and with moderate mitral insufficiency. * We will recommend to continue antiarrhythmic therapy with amiodarone, DOAC therapy with Eliquis, and beta-octavio for rate control . * Outpatient follow up with Dr. Melo in [place] for aortic valve replacement with possible TAVR as well as possible mitral clip. * [place] 07/14 shows severe aortic regurgitation and mitral regurgitation, [id number] TR, left heart catheterization shows severe RCA * Plan: Lasix 40 IV daily, amiodarone 200 mg b.i.d. transferred to [place] (higher level of care) for TAVR and MitraClip PULMONARY: Acute hypoxic respiratory failure, likely due to pneumonia/COPD exacerbation/asthma exacerbation COPD on 4 L at home Hx of Pna and intubation 2022 Sepsis secondary to Acute Gram-positive and Gram-negative pneumonia Likely COPD on 4L home O2 History of asthma * Plan: Continue IV Abx, and breathing treatment GASTROINTESTINAL: Pneumatosis intestinalis and megacolon likely ischemic bowel Perforation and peritonitis Status s/p laparotomy, subtotal colectomy (ascending and transfer) 06/17, resection of descending colon 06/19, ileocolic anastomosis with protective loop ileostomy, drain placement 06/20 Transaminitis, 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 Evidence of portal venous gas * liver ultrasound shows hepatic steatosis * Surgeon - wound VAC for midline * Today 07/02, the patient got abdominal pain, subsequently developed bleeding from ileostomy and rectal (almost 500 mL). Patient was evaluated by surgeon at the bedside, evaluated the ileostomy, digitize both ileostomy, both patent. Recommended GI evaluation and possible scope, consulted GI, an updated the on-call doctor on phone, reports that she will, and we will assess at the bedside for possible scope. * Abdominal CT 07/05, Bowel wall edema and thickening of the small bowel loops most pronounced in the left abdomen which can be secondary to enteritis, inflammatory bowel disease. No pneumatosis identified.Peripheral splenic hypodensities up to 2.8 cm may represent splenic infarcts. * EGD 07/09, showed 1 cm sliding-type hiatal hernia with no significant erosive esophagitis with minimal gastritis otherwise normal examination up to the 2nd and 3rd part of the duodenum with good bile drainage and no active bleeding * Plan: Protonix 40 mg daily GENITOURINARY: NYASIA secondary to hemodynamically mediated/VMN requiring hemodialysis 06/20 (1 session) ? Chronic kidney disease Anemia of CKD * Kidney ultrasound shows Normal sonographic appearance of the kidneys. No hydronephrosis. 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 Critical care time spent more than 57 minutes, including patient care, chart review, and updating the family. Excluding any procedures. Case discussed with Plan discussed with: Patient, Other My Orders My Orders Orders - ELISEO GOMEZ RESDIDOMONIQUE Procedure Category Date Status Time Pantoprazole Tablet PHA 07/14/25 In Process (Protonix Tablet) 06:00 Obtain Consent For: ORDERS 07/13/25 Transmitted 19:20 Hold Enoxaparin Day DEANDRA 07/14/25 In Process Of Procedu 00:01 Shave Both Groins DEANDRA 07/13/25 In Process 19:20 Provide Education DEANDRA 07/13/25 In Process Materials 19:20 Acetaminophen Tablet PHA 07/13/25 In Process (Tylenol Tablet) 19:30 Fluconazole PHA 07/14/25 In Process 200mg/100ml (Diflucan 10:00 Cl Left Heart Cath CL 07/14/25 Taken 08:19 Mechanical Soft Diet DIET 07/14/25 Transmitted Dinner Dietary Evaluation Review Comments: 1) If patient remains NPO > 7 days, consider EN/TPN to meet at least 75% of estimated daily needs 2) If gut is preferred, consider Nepro @ 25 mL/hr goal rate as tolerated. Flush with 200 mL free H2O Q6H. TF regimen will provide 1080 kcals, 49g Pro, and 1236 mL free H2O per 24 hrs. TF regimen will meet ~ 92% estimated energy needs and 52% estimated protein needs. 3) Advance to 60g CCHO renal cardiac diet when medically feasible, pending ST approval 4) Refer to outpatient RD/CDCES for weight management 5) Follow-up with cardiology, pulmonology, or nephrology 6) Continue to monitor I&O, labs, and skin integrity Expected Outcomes/Goals: 1) patient to receive nutritional support within 7 days of NPO status 2) labs to improve 3) diet to advance 4) f/u in 2-3 days Sepsis reassessment post fluid Capillary Refill: < 3 seconds Date of Service: Jul 14, 2025 Billing Provider: ELZA BENJAMIN MD Common Visit Codes: 66251-[id number] CARE 30-74 MIN ELISEO GOMEZ RESDIENT Jul 14, 2025 19:05 ELZA BENJAMIN MD Jul 15, 2025 12:40
--- NOTE | 2025-07-14 20:46 | DVHPN2 ---
Progress Note - Dictate Date Seen: Jul 14, 2025 Medical Necessity Reason Pt with a Central, PICC or Fol: Yes The following are medically ne: Central Line, Engel Catheter Subjective No new complaints Tolerating soft mechanical diet No significant UGI findings an UGI bleed H/H down to 7.9 No active GI bleeding reported vital signs Vital Sign Date Time Temp Pulse Resp B/P (MAP) Pulse Ox O2 Delivery O2 Flow Rate FiO2 07/14/25 20:00 12 96 Nasal Cannula* 3 32 07/14/25 20:00 91 07/14/25 17:09 141/64 07/14/25 15:00 97.9 97.9 Total Intake and Output 07/13/25 07/13/25 07/14/25 15:00 23:00 07:00 Intake Total 383.2 ml 933.3 ml 500 ml Output Total 3000 ml 2000 ml Balance 383.2 ml -2066.7 ml -1500 ml medications Current Medications Medications Dose Ordered Sig/Bárbara Route Start Time Stop Time Status Last Admin Dose Admin Ondansetron HCl 4 mg Q4HP PRN IV 06/09/25 01:00 Cancel Ipratropium [place] 0.5 mg Q6HR NEB 06/14/25 10:15 07/14/25 18:32 0.5 MG Levalbuterol HCl 1.25 mg Q6HR NEB 06/15/25 00:00 07/14/25 18:32 1.25 MG Sodium Bicarbonate 75 ml/ Dextrose 1,075 ml @ 700 mls/hr Q1H33M IV 06/16/25 17:15 06/16/25 18:47 Cancel Bumetanide 1 mg BIDD IV 06/17/25 18:00 Cancel Meropenem 50 ml @ 17 mls/hr DAILY@0100 IV 06/21/25 01:00 Cancel Sodium Chloride 10 ml QSHIFT@10,22 IV 06/29/25 22:00 07/14/25 09:55 10 ML Vancomycin HCl 100 ml @ 100 mls/hr Q12H IV 07/06/25 13:00 UNV Sucralfate 1 gm TID@0600,1130,2200 GT 07/07/25 11:30 07/13/25 22:40 1 GM Amiodarone HCl 200 mg Q12HR PO 07/09/25 22:00 07/14/25 09:55 200 MG Alprazolam 0.25 mg Q12HP PRN PO 07/10/25 15:00 07/13/25 22:44 0.25 MG Furosemide 20 mg DAILY IV 07/11/25 10:00 07/14/25 09:55 20 MG Enteral Nutritional Formula 240 ml TIDWM PO 07/13/25 08:00 07/13/25 13:59 240 ML Enoxaparin Sodium 40 mg DAILY SC 07/13/25 10:00 Hold 07/13/25 10:24 40 MG Pantoprazole Sodium 40 mg DAILY@0600 PO 07/14/25 06:00 Acetaminophen 650 mg Q6HP PRN PO 07/13/25 19:30 Fluconazole 100 ml @ 100 mls/hr DAILY IV 07/14/25 10:00 07/14/25 09:53 100 MLS/HR Lidocaine 1 patch DAILY TOP 07/13/25 22:15 07/13/25 22:43 1 PATCH Morphine Sulfate 4 mg Q6HPRN PRN IV 07/13/25 22:15 07/14/25 09:54 4 MG Oxycodone/ Acetaminophen 1 tab Q4HP PRN PO 07/13/25 22:15 07/14/25 14:40 1 TAB Iron Sucrose 110 ml @ 110 mls/hr DAILY@1200 IV 07/14/25 15:00 07/18/25 12:59 objective GENERAL:Normal, ABDOMEN:Normal (Nondistended, soft, depressible, midline wound with wound VAC placed and no surrounding signs of infection, right lower quadrant ileostomy with stool mixed with blood in bag, nontender) laboratory and microbiology Laboratory Tests 07/14/25 03:30 Test 07/14/25 03:30 Range/Units Serum Glucose 85 74-106 mg/dL Problems(with codes): (1) ATN (acute tubular necrosis) (2) CHF exacerbation (3) Sepsis (4) GI bleed (5) Pneumatosis intestinalis (6) Acute on chronic respiratory failure with hypoxemia Prognosis Plan Patient underwent a cardiac catheterization today which showed EF of 65% and normal coronaries Patient is scheduled for a EBENEZER tomorrow There was a plan to transfer to [facility] for possible aortic valve replacement after the above Continue supportive care from GI point of view I will follow as needed Dietary Evaluation Review Comments: 1) If patient remains NPO > 7 days, consider EN/TPN to meet at least 75% of estimated daily needs 2) If gut is preferred, consider Nepro @ 25 mL/hr goal rate as tolerated. Flush with 200 mL free H2O Q6H. TF regimen will provide 1080 kcals, 49g Pro, and 1236 mL free H2O per 24 hrs. TF regimen will meet ~ 92% estimated energy needs and 52% estimated protein needs. 3) Advance to 60g CCHO renal cardiac diet when medically feasible, pending ST approval 4) Refer to outpatient RD/CDCES for weight management 5) Follow-up with cardiology, pulmonology, or nephrology 6) Continue to monitor I&O, labs, and skin integrity Expected Outcomes/Goals: 1) patient to receive nutritional support within 7 days of NPO status 2) labs to improve 3) diet to advance 4) f/u in 2-3 days Plan discussed with: Patient, Other (Nurse) Capillary Refill: < 3 seconds GOLD MARTINEZ MD Jul 14, 2025 20:46
--- NOTE | 2025-07-14 23:30 | DVHPN2 ---
Progress Note - Dictate Date Seen: Jul 14, 2025 Medical Necessity Reason Pt with a Central, PICC or Fol: Yes The following are medically ne: Central Line, Engel Catheter Subjective Patient was seen and evaluated in follow up in the ICU. Patient remains on 3 LPM NC. Per RN, there is some blood tinged output from the patient's ileostomy. HGB 7.9, HCT 23.6, CA 8. vital signs Vital Sign Date Time Temp Pulse Resp B/P (MAP) Pulse Ox O2 Delivery O2 Flow Rate FiO2 07/14/25 12:00 18 98 Nasal Cannula* 3 32 07/14/25 11:51 79 07/14/25 11:01 164/72 (102) 07/14/25 10:01 97.8 97.8 Total Intake and Output 07/13/25 07/13/25 07/14/25 15:00 23:00 07:00 Intake Total 383.2 ml 933.3 ml 500 ml Output Total 3000 ml 2000 ml Balance 383.2 ml -2066.7 ml -1500 ml medications Current Medications Medications Dose Ordered Sig/Bárbara Route Start Time Stop Time Status Last Admin Dose Admin Ondansetron HCl 4 mg Q4HP PRN IV 06/09/25 01:00 Cancel Ipratropium [place] 0.5 mg Q6HR NEB 06/14/25 10:15 07/14/25 11:43 0.5 MG Levalbuterol HCl 1.25 mg Q6HR NEB 06/15/25 00:00 07/14/25 11:43 1.25 MG Sodium Bicarbonate 75 ml/ Dextrose 1,075 ml @ 700 mls/hr Q1H33M IV 06/16/25 17:15 06/16/25 18:47 Cancel Bumetanide 1 mg BIDD IV 06/17/25 18:00 Cancel Meropenem 50 ml @ 17 mls/hr DAILY@0100 IV 06/21/25 01:00 Cancel Sodium Chloride 10 ml QSHIFT@,22 IV 06/29/25 22:00 07/14/25 09:55 10 ML Vancomycin HCl 100 ml @ 100 mls/hr Q12H IV 07/06/25 13:00 UNV Sucralfate 1 gm TID@0600,1130,2200 GT 07/07/25 11:30 07/13/25 22:40 1 GM Amiodarone HCl 200 mg Q12HR PO 07/09/25 22:00 07/14/25 09:55 200 MG Alprazolam 0.25 mg Q12HP PRN PO 07/10/25 15:00 07/13/25 22:44 0.25 MG Furosemide 20 mg DAILY IV 07/11/25 10:00 07/14/25 09:55 20 MG Enteral Nutritional Formula 240 ml TIDWM PO 07/13/25 08:00 07/13/25 13:59 240 ML Enoxaparin Sodium 40 mg DAILY SC 07/13/25 10:00 Hold 07/13/25 10:24 40 MG Pantoprazole Sodium 40 mg DAILY@0600 PO 07/14/25 06:00 Acetaminophen 650 mg Q6HP PRN PO 07/13/25 19:30 Fluconazole 100 ml @ 100 mls/hr DAILY IV 07/14/25 10:00 07/14/25 09:53 100 MLS/HR Lidocaine 1 patch DAILY TOP 07/13/25 22:15 07/13/25 22:43 1 PATCH Morphine Sulfate 4 mg Q6HPRN PRN IV 07/13/25 22:15 07/14/25 09:54 4 MG Oxycodone/ Acetaminophen 1 tab Q4HP PRN PO 07/13/25 22:15 07/14/25 02:34 1 TAB objective GENERAL: Alert and oriented x 3. No acute distress. EYES: PERRL, EOMI. Anicteric. HENT: Moist mucous membranes. LUNGS: Decreased breath sounds. CARDIOVASCULAR: Regular rate and rhythm. ABDOMEN: Soft, nontender and nondistended. EXTREMITIES: No edema. NEUROLOGIC: No focal neurological deficits. SKIN: Warm, dry. laboratory and microbiology Laboratory Tests 07/14/25 03:30 Test 07/14/25 03:30 Range/Units Serum Glucose 85 74-106 mg/dL Problem List Chronic HFpEF, NYHA class IV. Paroxysmal atrial fibrillation, stage III, now NSR (on amiodarone/Elqiuis therapy). Severe aortic valve and mitral valve insufficiency. Acute hypoxic respiratory failure. Asthma. Chronic kidney disease. Thyroid disease. Prediabetes, newly diagnosed. Morbid obesity. History of tobacco use. Assessment/Plan Continued all current supportive medical care. Amiodarone. Diuretics with Lasix. Nebulized breathing treatments. Morphine and Oxycodone for pain management. Additional plan as per the hospital course. Critical care time of 45 minutes provided to include time spent evaluation of patient at bedside, when appropriate patient/family education for diagnosis, treatment plan, review of pertinent medical information and discussion of care with specialty providers and PCP. Dietary Evaluation Review Comments: 1) If patient remains NPO > 7 days, consider EN/TPN to meet at least 75% of estimated daily needs 2) If gut is preferred, consider Nepro @ 25 mL/hr goal rate as tolerated. Flush with 200 mL free H2O Q6H. TF regimen will provide 1080 kcals, 49g Pro, and 1236 mL free H2O per 24 hrs. TF regimen will meet ~ 92% estimated energy needs and 52% estimated protein needs. 3) Advance to 60g CCHO renal cardiac diet when medically feasible, pending ST approval 4) Refer to outpatient RD/CDCES for weight management 5) Follow-up with cardiology, pulmonology, or nephrology 6) Continue to monitor I&O, labs, and skin integrity Expected Outcomes/Goals: 1) patient to receive nutritional support within 7 days of NPO status 2) labs to improve 3) diet to advance 4) f/u in 2-3 days Plan discussed with: Patient Capillary Refill: < 3 seconds URBANO TRUONG MD Jul 14, 2025 13:42
[2025-07-15] VITALS (34 sets, daily range): BP systolic 101–159; BP diastolic 40–85; PULSE 66–106; RESP 10–20; TEMP 97.8–98.8; O2SAT 88–100
[2025-07-15 03:53] LABS: Hemoglobin 8.1 g/dL (12.2-16.2)
[2025-07-15 03:55] LABS: Hematocrit 24.6 % (36.0-46.0); Mean Corpuscular Hemoglobin 28.6 pg (28.0-32.0); Mean Corpuscular Volume 86.4 fL (80.0-100.0); Nucleated Red Blood Cells % 0.0 %
[2025-07-15 04:20] LABS: Alanine Aminotransferase 30 U/L (7-40); Anion Gap 10 (5-15); BUN/Creatinine Ratio 12.0 (10.0-20.0); Bilirubin, Total 0.4 mg/dL (0.2-1.0); Blood Urea Nitrogen 10 mg/dL (9-23); Carbon Dioxide 27 mmol/L (20-31); Chloride 100 mmol/L (98-107); Glucose 82 mg/dL (74-106); Potassium 3.6 mmol/L (3.5-5.1); Sodium 137 mmol/L (136-145)
[2025-07-15 04:30] LABS: Albumin 2.3 g/dL (3.2-4.8); Alkaline Phosphatase 120 U/L (46-116); Calcium 8.2 mg/dL (8.7-10.4); Magnesium 1.5 mg/dL (1.6-2.6); Total Protein 5.0 g/dL (5.7-8.2)
[2025-07-15] MEDS: MAGNESIUM SULFATE 1GM/100ML 100 ML IV SCH (05:24)
[2025-07-15] MEDS: ENOXAPARIN SOD 40 MG/0.4 ML SYRINGE SC ONE (15:43)
--- NOTE | 2025-07-15 18:57 | DVHPNRES ---
Progress Note Date Seen: Jul 15, 2025 Resident Creating Document: ELISEO GOMEZ RESDIENT Medical Necessity Reason Pt with a Central, PICC or Fol: Yes The following are medically ne: Central Line, Engel Catheter Subjective Review of Systems Patient seen and examined at the bedside. Patient has abdominal pain, and has black discharged from ileostomy. Objective vital signs Vital Sign Date Time Temp Pulse Resp B/P (MAP) Pulse Ox O2 Delivery O2 Flow Rate FiO2 07/15/25 18:49 94 11 100 07/15/25 18:39 Nasal Cannula* 3 32 07/15/25 18:01 101/45 (63) 07/15/25 16:00 98.0 98.0 Total Intake and Output 07/14/25 07/14/25 07/15/25 15:00 23:00 07:00 Intake Total 100 ml 20 ml 400 ml Output Total 3250 ml 1200 ml Balance 100 ml -3230 ml -800 ml medications Current Medications Medications Dose Ordered Sig/Bárbara Route Start Time Stop Time Status Last Admin Dose Admin Ondansetron HCl 4 mg Q4HP PRN IV 06/09/25 01:00 Cancel Ipratropium Purmela 0.5 mg Q6HR NEB 06/14/25 10:15 07/15/25 18:39 0.5 MG Levalbuterol HCl 1.25 mg Q6HR NEB 06/15/25 00:00 07/15/25 18:39 1.25 MG Sodium Bicarbonate 75 ml/ Dextrose 1,075 ml @ 700 mls/hr Q1H33M IV 06/16/25 17:15 06/16/25 18:47 Cancel Bumetanide 1 mg BIDD IV 06/17/25 18:00 Cancel Meropenem 50 ml @ 17 mls/hr DAILY@0100 IV 06/21/25 01:00 Cancel Sodium Chloride 10 ml QSHIFT@,22 IV 06/29/25 22:00 07/15/25 10:10 10 ML Vancomycin HCl 100 ml @ 100 mls/hr Q12H IV 07/06/25 13:00 UNV Sucralfate 1 gm TID@0600,1130,2200 GT 07/07/25 11:30 07/15/25 11:59 1 GM Amiodarone HCl 200 mg Q12HR PO 07/09/25 22:00 07/15/25 10:08 200 MG Furosemide 20 mg DAILY IV 07/11/25 10:00 07/15/25 10:09 20 MG Enteral Nutritional Formula 240 ml TIDWM PO 07/13/25 08:00 07/15/25 12:00 240 ML Pantoprazole Sodium 40 mg DAILY@0600 PO 07/14/25 06:00 07/15/25 05:24 40 MG Acetaminophen 650 mg Q6HP PRN PO 07/13/25 19:30 Lidocaine 1 patch DAILY TOP 07/13/25 22:15 07/15/25 10:08 1 PATCH Oxycodone/ Acetaminophen 1 tab Q4HP PRN PO 07/13/25 22:15 07/15/25 15:40 1 TAB Iron Sucrose 110 ml @ 110 mls/hr DAILY@1200 IV 07/14/25 15:00 07/18/25 12:59 07/15/25 11:59 110 MLS/HR Enoxaparin Sodium 40 mg DAILY SC 07/16/25 10:00 Examination General Appearance: Alert, Oriented X3, in moderate respiratory distress HEENT: Atraumatic, PERRLA, EOMI, Mucous membrane moist/pink Respiratory: Bilateral crackles Cardiovascular: Regular rate, Normal S1, Normal S2, No murmurs, no chest wall tenderness Abdominal: Normal bowel sounds, Soft, No tenderness, No hepatospenomegaly, No masses Extremities: No clubbing, No cyanosis, No edema, Normal pulses, No tenderness/swelling Skin: Wound VAC on the surgical area, with no sign of infection or drainage laboratory and microbiology Laboratory Tests 07/15/25 03:05 Test 07/15/25 03:05 Range/Units Serum Glucose 82 74-106 mg/dL Microbiology Date/Time Source Procedure Growth Status 07/10/25 17:00 Urine - [place] Urine Culture - Final Yeast, not Jayda albicans Complete 07/06/25 17:00 Blood Blood Culture - Final NO GROWTH AFTER 5 DAYS OF INCUBATION. Complete 06/17/25 07:00 Stool Stool Culture - Final Complete 06/17/25 07:00 Stool Shiga Toxin I & II - Final Complete 06/11/25 14:25 Nose MRSA Screen - Final Complete Labs and/or images reviewed: Labs reviewed by me, Image(s) reviewed by me Problem List/Assessment/Plan Problem List/Assessment/Plan This is a 54-year-old female with past medical history of HFpEF, paroxysmal AFib, severe TR, severe MR, prediabetic, asthma, CKD 3A, morbid obesity, came to ER due to shortness of breaths, cough and bilateral lower limb swelling for 2 weeks. Admitted on 06/09, put on BiPAP but the patient's condition worsened and got intubated on 06/11. Extubated on 06/26. NEURO: * Extubated on 06/26 CARDIOVASCULAR: Acute on chronic diastolic heart failure exacerbation Paroxysmal Atrial fibrillation with RVR Pulmonary edema due to heart failure Severe aortic insufficiency, mitral valve insufficiency, tricuspid regurg Acquired coagulopathy * Chads Vasc: 2 * Per Cardiology:patient underwent a transesophageal echocardiogram on 03/26/2025 which revealed an EF of 60% with severe aortic insufficiency and with moderate mitral insufficiency. * We will recommend to continue antiarrhythmic therapy with amiodarone, DOAC therapy with Eliquis, and beta-octavio for rate control . * Outpatient follow up with Dr. Melo in [place] for aortic valve replacement with possible TAVR as well as possible mitral clip. * Parker 07/14 shows severe aortic regurgitation and mitral regurgitation, [id number] TR, left heart catheterization shows severe RCA * Plan: Lasix 40 IV daily, amiodarone 200 mg b.i.d. transferred to [place] (higher level of care) for TAVR and MitraClip PULMONARY: Acute hypoxic respiratory failure, likely due to pneumonia/COPD exacerbation/asthma exacerbation COPD on 4 L at home Hx of Pna and intubation 2022 Sepsis secondary to Acute Gram-positive and Gram-negative pneumonia Likely COPD on 4L home O2 History of asthma * Plan: Continue IV Abx, and breathing treatment GASTROINTESTINAL: Pneumatosis intestinalis and megacolon likely ischemic bowel Perforation and peritonitis Status s/p laparotomy, subtotal colectomy (ascending and transfer) 06/17, resection of descending colon 06/19, ileocolic anastomosis with protective loop ileostomy, drain placement 06/20 Transaminitis, 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 Evidence of portal venous gas * liver ultrasound shows hepatic steatosis * Surgeon - wound VAC for midline * Today 07/02, the patient got abdominal pain, subsequently developed bleeding from ileostomy and rectal (almost 500 mL). Patient was evaluated by surgeon at the bedside, evaluated the ileostomy, digitize both ileostomy, both patent. Recommended GI evaluation and possible scope, consulted GI, an updated the on-call doctor on phone, reports that she will, and we will assess at the bedside for possible scope. * Abdominal CT 07/05, Bowel wall edema and thickening of the small bowel loops most pronounced in the left abdomen which can be secondary to enteritis, inflammatory bowel disease. No pneumatosis identified.Peripheral splenic hypodensities up to 2.8 cm may represent splenic infarcts. * EGD 07/09, showed 1 cm sliding-type hiatal hernia with no significant erosive esophagitis with minimal gastritis otherwise normal examination up to the 2nd and 3rd part of the duodenum with good bile drainage and no active bleeding * Plan: Protonix 40 mg daily GENITOURINARY: NYASIA secondary to hemodynamically mediated/VMN requiring hemodialysis 06/20 (1 session) ? Chronic kidney disease Anemia of CKD * Kidney ultrasound shows Normal sonographic appearance of the kidneys. No hydronephrosis. 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 Critical care time spent more than 57 minutes, including patient care, chart review, and updating the family. Excluding any procedures. Case discussed with Plan discussed with: Other My Orders My Orders Orders - ELISEO GOMEZ Procedure Category Date Status Time * Preprint Analyst CONS 07/14/25 Transmitted Consult Dietary NOTICE 10/9/25 Transmitted Recommendations 08:17 Enoxaparin Sodium PHA 07/16/25 In Process (Lovenox) 10:00 Transfer Orders XFER 07/15/25 Transmitted 15:37 Discharge DISCHARGE 07/15/25 Transmitted 17:05 Complete Blood Count LAB 07/16/25 Verified 04:00 Comprehensive LAB 07/16/25 Verified Metabolic Panel 04:00 Dietary Evaluation Review Comments: 1) If patient remains NPO > 7 days, consider EN/TPN to meet at least 75% of estimated daily needs 2) If gut is preferred, consider Nepro @ 25 mL/hr goal rate as tolerated. Flush with 200 mL free H2O Q6H. TF regimen will provide 1080 kcals, 49g Pro, and 1236 mL free H2O per 24 hrs. TF regimen will meet ~ 92% estimated energy needs and 52% estimated protein needs. 3) Advance to 60g CCHO renal cardiac diet when medically feasible, pending ST approval 4) Refer to outpatient RD/CD[facility] for weight management 5) Follow-up with cardiology, pulmonology, or nephrology 6) Continue to monitor I&O, labs, and skin integrity Expected Outcomes/Goals: 1) patient to receive nutritional support within 7 days of NPO status 2) labs to improve 3) diet to advance 4) f/u in 2-3 days Sepsis reassessment post fluid Capillary Refill: < 3 seconds Date of Service: Jul 15, 2025 Billing Provider: ELZA BENJAMIN MD Common Visit Codes: 21278-[id number] CARE 30-74 MIN PATRICIALEONARDOBRANDON RESDIENT Jul 15, 2025 18:57 ELZA BENJAMIN MD Jul 17, 2025 11:59
--- NOTE | 2025-07-15 19:01 | DVHDSRES ---
Discharge Summary Date of Admission Resident Creating Document: ELISEO GOMEZ Jun 09, 2025 at 00:59 Date of Discharge: Jul 15, 2025 Labs/Diagnostic Data: Laboratory Results Test 07/15/25 03:05 07/13/25 20:53 07/12/25 02:40 07/10/25 03:30 White Blood Count 14.3 10^3/uL (4.4-10.8) Red Blood Count 2.85 10^6/uL (4.0-5.20) Hemoglobin 8.1 g/dL (12.2-16.2) Hematocrit 24.6 % (36.0-46.0) Mean Corpuscular Volume 86.4 fL (80.0-100.0) Mean Corpuscular Hemoglobin 28.6 pg (28.0-32.0) Mean Corpuscular Hemoglobin Concent 33.0 g/dL (32.0-36.0) Red Cell Distribution Width 17.1 % (11.8-14.3) Platelet Count 398 10^3/uL (140-450) Mean Platelet Volume 9.1 fL (6.9-10.8) Neutrophils (%) (Auto) 63.5 % (37.0-80.0) Lymphocytes (%) (Auto) 24.7 % (10.0-50.0) Monocytes (%) (Auto) 9.7 % (0.0-12.0) Eosinophils (%) (Auto) 1.2 % (0.0-7.0) Basophils (%) (Auto) 0.9 % (0.0-2.0) Neutrophils # (Auto) 9.1 10 ^3/uL (1.6-8.6) Lymphocytes # (Auto) 3.5 10 ^3/uL (0.4-5.4) Monocytes # (Auto) 1.4 10 ^3/uL (0-1.3) Eosinophils # (Auto) 0.2 10 ^3/uL (0-0.8) Basophils # (Auto) 0.1 10 ^3/uL (0-0.2) Nucleated Red Blood Cells 0.0 % Sodium Level 137 mmol/L (136-145) Potassium Level 3.6 mmol/L (3.5-5.1) Chloride Level 100 mmol/L (98-107) Carbon Dioxide Level 27 mmol/L (20-31) Anion Gap 10 (5-15) Blood Urea Nitrogen 10 mg/dL (9-23) Creatinine 0.83 mg/dL (0.550-1.02) Glomerular Filtration Rate Calc 84 mL/min (>90) BUN/Creatinine Ratio 12.0 (10.0-20.0) Serum Glucose 82 mg/dL (74-106) Calcium Level 8.2 mg/dL (8.7-10.4) Magnesium Level 1.5 mg/dL (1.6-2.6) Total Bilirubin 0.4 mg/dL (0.2-1.0) Aspartate Amino Transferase (AST) 34 U/L (13-40) Alanine Aminotransferase (ALT) 30 U/L (7-40) Alkaline Phosphatase 120 U/L (46-116) Total Protein 5.0 g/dL (5.7-8.2) Albumin 2.3 g/dL (3.2-4.8) Prothrombin Time 11.6 sec (9.3-11.8) Prothrombin Time INR 1.11 (0.9-1.15) Random Vancomycin Level 13.2 ug/mL (5-10) Differential Total Cells Counted 100.0 (100) Neutrophils % (Manual) 81 (37.0-80.0) Band Neutrophils % (Manual) 1 Lymphocytes % (Manual) 11 (10.0-50.0) Monocytes % (Manual) 4 (0-12) Eosinophils % (Manual) 0 (0-7) Basophils % (Manual) 0 (0.0-2.0) Metamyelocytes % (manual) 0 Myelocytes % (Manual) 0 Promyelocytes % (Manual) 0 Blast Cells % (Manual) 1 Reactive Lymphocytes 2 Platelet Estimate Adequate Stomatocytes Moderate Flor Cells Few Test 07/09/25 06:00 07/09/25 03:36 07/09/25 00:22 07/08/25 04:33 Urine Color Light-yellow (Yellow) Urine Clarity Turbid (Clear) Urine pH 6.5 (5.0-9.0) Urine Specific [place] 1.017 (1.001-1.035) Urine Protein 1+ (Negative) Urine Ketones Negative (Negative) Urine Blood 1+ /uL (Negative) Urine Nitrite Negative (Negative) Urine Bilirubin Negative (Negative) Urine Urobilinogen Normal mg/dL (Negative) Urine Leukocyte Esterase 1+ /uL (Negative) Urine RBC 43 /hpf (0 - 4) Urine Microscopic WBC 14 /HPF (0-5) Urine Squamous Epithelial Cells Few /hpf (<5) Urine Bacteria Few /hpf (None Seen) Urine Hyaline Casts Few /lpf (0 - 2) Urine Yeast (Budding) Many /hpf (None Seen) Urine Glucose Normal mg/dL (Normal) Anisocytosis (manual) Slight Activated Partial Thromboplast Time 28.4 SEC (24.5-34.5) Direct Bilirubin 0.2 mg/dL (<0.3) Vancomycin Level Trough 35.1 ug/mL (5-10) POC Glucose 88 mg/dl (70-106) Test 07/08/25 03:02 07/07/25 02:55 07/04/25 04:00 07/03/25 07:47 Large Platelets Few Phosphorus Level 2.5 mg/dL (2.4-5.1) Giant Platelets Few Triglycerides Level 225 mg/dL (< 150) Blood Gas Specimen Type Arterial Blood Gas Sample Site Right radial Blood Gas Patient Temperature 37.0 Arterial Blood Date Drawn [id number] Arterial Blood pH 7.409 (7.350-7.450) Arterial Blood Partial Pressure CO2 44.9 mmHg (32.0-45.0) Arterial Blood Partial Pressure O2 118.8 mmHg (83.0-108.0) Arterial Blood HCO3 27.8 mmol/L (21.0-28.0) Arterial Blood Oxygen Saturation 97.6 % (94.0-98.0) Arterial Blood Base Excess 2.7 mmol/L (-2.0-3.0) Arterial Blood Oxyhemoglobin 97.0 % (94.0-98.0) Arterial Blood Carboxyhemoglobin 0.4 % (0.5-1.5) Arterial Blood Methemoglobin 0.2 % (0.0-1.5) Elfego Test Yes Blood Gas Total Hemoglobin 10.00 g/dL (12.0-16.0) Blood Gas Modality Nasal cannula FiO2 % 32.0 Test 07/02/25 15:15 06/29/25 16:01 06/26/25 08:53 06/26/25 03:20 Blood Gas Liter Flow 1.00 Blood Gas Critical Value Read Back Yes Blood Gas Notified Whom pratik Gomez md Blood Gas Notified Time [id number] Blood Gas Notified By Bulk Cooler Installer uri espino Blood Gas Set Respiration Rate 12.0 Blood Gas EPAP 5 Blood Gas IPAP 12 Blood Gas Spontaneous Rate 16 Blood Gas PEEP or CPAP 5.0 Target Cells Few Test 06/25/25 10:45 06/25/25 07:13 06/25/25 03:41 06/20/25 01:07 Blood Gas Pressure Support 8 Blood Gas Tidal Volume 450.0 Hypersegmented Neutrophils Present Hepatitis A IgM Antibody Negative Hepatitis B Surface Antigen Negative (Negative) Hepatitis B Core IgM Antibody Negative (Negative) Hepatitis C Antibody Negative (Negative) Test 06/17/25 22:45 06/17/25 07:00 06/16/25 17:00 06/16/25 03:25 Lactic Acid Level 2.0 mmol/L (0.4-2.0) Stool Occult Blood Positive (Negative) Stool Occult Blood Sample #3 (Negative) Influenza Type A Antigen Negative (Negative) Influenza Type B Antigen Negative (Negative) SARS-CoV-2 Antigen (Rapid) Negative (NEGATIVE) Erythrocyte Sedimentation Rate 53 mm/hr (0-20) Test 06/16/25 03:02 06/15/25 09:23 06/15/25 03:24 06/14/25 11:50 C-Reactive Protein High Sensitivity 5.57 mg/dL (<1.0) Free Thyroxine (T4) Calculated 0.74 ng/dL (0.89-1.76) Total Triiodothyronine (TT3) 0.85 ng/mL (0.60-1.81) Hemoglobin A1c 4.9 % A1C (<5.7) Thyroid Stimulating Hormone (TSH) 18.39 uIU/mL (0.55-4.78) Urine Creatinine 27.77 mg/dL (30.0-125.0) Urine Protein/Creatinine Ratio 1.72 Urine Sodium 73 mmol/L (40-220) Urine Total Protein 47.7 mg/dL (1-14) Test 06/13/25 03:50 06/08/25 22:13 06/08/25 22:07 06/08/25 21:15 Iron Level 27 ug/dL (50-170) Total Iron Binding Capacity 319 ug/dL (250-425) Percent Iron Saturation 8.5 % (15-50) Ferritin 298.8 ng/mL (10-291) Troponin I High Sensitivity < 3 ng/L (</=34) Venous Blood pH 7.371 (7.320-7.430) Venous Blood pCO2 at Patient Temp 38.8 mmHg (38.0-54.0) Venous Blood pO2 at Patient Temp 46.3 mmHg (23.0-48.0) Venous Blood HCO3 22.0 mmol/L (22.0-29.0) Venous Blood Base Excess -2.9 mmol/L (-2.0-3.0) B-Type Natriuretic Peptide 392.00 pg/mL (0-100) Other Laboratory Tests 07/15/25 03:05 Brief Hx & Hospital Course: HISTORY OF PRESENT ILLNESS: This is a 54-year-old female with a complex medical history including HFpEF, paroxysmal atrial fibrillation, severe tricuspid and mitral regurgitation, severe aortic insufficiency, asthma, COPD, CKD stage 3A, morbid obesity, and prediabetes, came to the hospital due to progressive shortness of breath and bilateral lower limb swelling. HOSPITAL COURSE: Patient was admitted on 06/09/2025 for acute on chronic congestive heart failure exacerbation presenting with dyspnea, cough, and bilateral lower extremity edema. The patient was started on IV diuretic. During hospitalization, she developed abdominal pain and was found to have pneumatosis intestinalis and megacolon, leading to three exploratory laparotomies between 06/17 and 06/20, including subtotal colectomy, resection of descending colon, ileocolic anastomosis, and creation of a protective loop ileostomy. During hospital course, she also experienced per ileostomy bleeding, required transfusion of [address] imaging revealed no significant finding, EGD showed mild gastritis, esophagitis, and a small hiatal hernia. She also had NYASIA, required one session of hemodialysis which progressively normalized.. Cardiac evaluation with EBENEZER and catheterization on 07/14 revealed severe aortic and mitral regurgitation and severe RCA stenosis. She was managed with IV diuretics, amiodarone for proximal Afib. On 07/15,she was stabilized and transferred to [facility] for advanced cardiac interventions including TAVR and MitraClip under the care of Dr. Melo. industrial services worker were consulted for wound VAC management post-discharge. Discharge planin minutes FINAL DIAGNOSIS: Acute on chronic diastolic heart failure exacerbation Paroxysmal Atrial fibrillation with RVR Pulmonary edema due to heart failure Severe aortic insufficiency, mitral valve insufficiency, tricuspid regurg Acquired coagulopathy Acute hypoxic respiratory failure, likely due to pneumonia/COPD exacerbation/asthma exacerbation COPD on 4 L at home Hx of Pna and intubation 2022 Sepsis secondary to Acute Gram-positive and Gram-negative pneumonia Likely COPD on 4L home O2 History of asthma Pneumatosis intestinalis and megacolon likely ischemic bowel Perforation and peritonitis Status s/p laparotomy, subtotal colectomy (ascending and transfer) 06/17, resection of descending colon 06/19, ileocolic anastomosis with protective loop ileostomy, drain placement 06/20 Transaminitis, 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 CAD involving the RCA. Discharge Disposition: Acute Care Facility Discharge Instruct/Medications Diet: Cardiac 2g Na,low cholest Activity: No Restrictions, As Tolerated Follow Up/Referral: With the PCP within 1 week of the discharge. Follow up with Cardiology on outpatient basis. Medications: Per transfer paper Scheduled Albuterol Sulfate (Albuterol Sulfate Hfa), 2.5 MG IN QID, (Reported) Amiodarone Hcl (Amiodarone Hcl), 1 TAB PO DAILY Apixaban Base (Eliquis), 5 MG PO BID Cholecalciferol (Vitamin D3), 1 TAB PO DAILY, (Reported) Clonidine Hydrochloride (Clonidine Hcl), 1 TAB PO BID, (Reported) Doxepin HCl (Doxepin Hydrochloride), 2 CAP PO HS, (Reported) Estradiol (Estradiol), 1 MG PO DAILY, (Reported) Fluticasone Propionate (Nasal) (Fluticasone Propionate), 2 SPRAY EACHNOSTRI DAILY, (Reported) Furosemide (Furosemide), 1 TAB PO BID Lactobacillus (Probiotic), 1 CAP PO DAILY, (Reported) Metoprolol Succinate (Metoprolol Succinate Er), 1 TAB PO BID, (Reported) Nifedipine (Nifedipine Er), 1 TAB PO DAILY, (Reported) Nitrofurantoin (Macrodantin Capsule), 1 CAP PO DAILY, (Reported) Pantoprazole Sodium Sesquihydr (Pantoprazole Sodium), 1 TAB PO DAILY, (Reported) Prazosin HCl (Prazosin Hydrochloride), 1 CAP PO QAM, (Reported) Prazosin HCl (Prazosin Hydrochloride), 2 CAP PO HS, (Reported) Rosuvastatin Calcium (Crestor), 40 MG PO DAILY, (Reported) Sertraline Hcl (Sertraline Hcl), 2 TAB PO DAILY, (Reported) Tizanidine Hydrochloride (Tizanidine Hcl), 1 TAB PO BID, (Reported) Scheduled PRN Alprazolam (Alprazolam), 1 TAB PO BID PRN for ANXIETY, (Reported) Hydrocodone-Acetaminophen (Hydrocodone Bitartrate/AC 10-325 mg), 1 TAB PO Q6HR PRN for SEVERE CHRONIC PAIN, (Reported) Hydroxyzine Hcl (Hydroxyzine Hcl), 25 MG PO Q6HP PRN for N&V, (Reported) Hyoscyamine Sulfate (Levsin), 1 TAB PO Q4HPRN PRN for increased secretions, (Reported) Ibuprofen Micronized (Ibuprofen), 1 TAB PO BID PRN for PAIN, (Reported) Ipratropium-Albuterol (Ipratropium [place]/Albut), 1 SUSANA IN Q4HP PRN for SHORTNESS OF BREATH, (Reported) Promethazine Hcl (Promethazine Hcl), 1 TAB PO TID PRN for NAUSEA, (Reported) Discharge Statement: "Patient was advised to return to the ER or call 911 if any headaches, dizziness, shortness of breath, chest pain, abdominal pain, bleeding, fevers, or worsening of medical condition. Patient was counseled about treatment plan, medications, possible side effects, patientverbalized understanding. All questions were answered to the best of my ability. This discharge took greater then 30 minutes in planning, reviewing documentation, counseling the patient, and discussing with other team members." ASSESSMENT ASSESSMENT Assessment Severe mitral and aortic insufficiency. CAD involving the RCA. ELISEO GOMEZ Jul 15, 2025 19:01
--- NOTE | 2025-07-15 23:54 | DVHPN2 ---
Progress Note - Dictate Date Seen: Jul 15, 2025 Medical Necessity Reason Pt with a Central, PICC or Fol: Yes The following are medically ne: Central Line, Engel Catheter Subjective Patient was seen and evaluated in follow up in the ICU. Patient remains on 3 LPM NC. Patient is s/p right and left heart catheterization by Dr. Miller. Transesophageal echocardiogram revealed severe mitral and aortic insufficiency. Bubble study is negative. WBC 14.3, HGB 8.1, HCT 24.6, CA 8.2. vital signs Vital Sign Date Time Temp Pulse Resp B/P (MAP) Pulse Ox O2 Delivery O2 Flow Rate FiO2 07/15/25 14:00 95 07/15/25 14:00 13 121/61 (81) 99 07/15/25 14:00 Nasal Cannula* 3 32 07/15/25 12:00 98.4 98.4 Total Intake and Output 07/14/25 07/14/25 07/15/25 15:00 23:00 07:00 Intake Total 100 ml 20 ml 400 ml Output Total 3250 ml 1200 ml Balance 100 ml -3230 ml -800 ml medications Current Medications Medications Dose Ordered Sig/Bárbara Route Start Time Stop Time Status Last Admin Dose Admin Ondansetron HCl 4 mg Q4HP PRN IV 06/09/25 01:00 Cancel Ipratropium [place] 0.5 mg Q6HR NEB 06/14/25 10:15 07/15/25 11:22 0.5 MG Levalbuterol HCl 1.25 mg Q6HR NEB 06/15/25 00:00 07/15/25 11:22 1.25 MG Sodium Bicarbonate 75 ml/ Dextrose 1,075 ml @ 700 mls/hr Q1H33M IV 06/16/25 17:15 06/16/25 18:47 Cancel Bumetanide 1 mg BIDD IV 06/17/25 18:00 Cancel Meropenem 50 ml @ 17 mls/hr DAILY@0100 IV 06/21/25 01:00 Cancel Sodium Chloride 10 ml QSHIFT@10,22 IV 06/29/25 22:00 07/15/25 10:10 10 ML Vancomycin HCl 100 ml @ 100 mls/hr Q12H IV 07/06/25 13:00 UNV Sucralfate 1 gm TID@0600,1130,2200 GT 07/07/25 11:30 07/15/25 11:59 1 GM Amiodarone HCl 200 mg Q12HR PO 07/09/25 22:00 07/15/25 10:08 200 MG Alprazolam 0.25 mg Q12HP PRN PO 07/10/25 15:00 07/14/25 21:20 0.25 MG Furosemide 20 mg DAILY IV 07/11/25 10:00 07/15/25 10:09 20 MG Enteral Nutritional Formula 240 ml TIDWM PO 07/13/25 08:00 07/15/25 12:00 240 ML Enoxaparin Sodium 40 mg DAILY SC 07/13/25 10:00 Hold 07/13/25 10:24 40 MG Pantoprazole Sodium 40 mg DAILY@0600 PO 07/14/25 06:00 07/15/25 05:24 40 MG Acetaminophen 650 mg Q6HP PRN PO 07/13/25 19:30 Fluconazole 100 ml @ 100 mls/hr DAILY IV 07/14/25 10:00 07/15/25 10:10 100 MLS/HR Lidocaine 1 patch DAILY TOP 07/13/25 22:15 07/15/25 10:08 1 PATCH Morphine Sulfate 4 mg Q6HPRN PRN IV 07/13/25 22:15 07/15/25 12:00 4 MG Oxycodone/ Acetaminophen 1 tab Q4HP PRN PO 07/13/25 22:15 07/15/25 08:46 1 TAB Iron Sucrose 110 ml @ 110 mls/hr DAILY@1200 IV 07/14/25 15:00 07/18/25 12:59 07/15/25 11:59 110 MLS/HR objective GENERAL: Alert and oriented x 3. No acute distress. EYES: PERRL, EOMI. Anicteric. HENT: Moist mucous membranes. LUNGS: Decreased breath sounds. CARDIOVASCULAR: Regular rate and rhythm. ABDOMEN: Soft, nontender and nondistended. EXTREMITIES: No edema. NEUROLOGIC: No focal neurological deficits. SKIN: Warm, dry. laboratory and microbiology Laboratory Tests 07/15/25 03:05 Test 07/15/25 03:05 Range/Units Serum Glucose 82 74-106 mg/dL Problem List Chronic HFpEF, NYHA class IV. Paroxysmal atrial fibrillation, stage III, now NSR (on amiodarone/Elqiuis therapy). Severe aortic valve and mitral valve insufficiency. Acute hypoxic respiratory failure. Asthma. Chronic kidney disease. Thyroid disease. Prediabetes, newly diagnosed. Morbid obesity. History of tobacco use. Assessment/Plan Continued all current supportive medical care. Amiodarone. GI prophylactics. Diuretics with Lasix. Nebulized breathing treatments. Morphine and Oxycodone for pain management. Additional plan as per the hospital course. Critical care time of 45 minutes provided to include time spent evaluation of patient at bedside, when appropriate patient/family education for diagnosis, treatment plan, review of pertinent medical information and discussion of care with specialty providers and PCP. Dietary Evaluation Review Comments: 1) If patient remains NPO > 7 days, consider EN/TPN to meet at least 75% of estimated daily needs 2) If gut is preferred, consider Nepro @ 25 mL/hr goal rate as tolerated. Flush with 200 mL free H2O Q6H. TF regimen will provide 1080 kcals, 49g Pro, and 1236 mL free H2O per 24 hrs. TF regimen will meet ~ 92% estimated energy needs and 52% estimated protein needs. 3) Advance to 60g CCHO renal cardiac diet when medically feasible, pending ST approval 4) Refer to outpatient RD/CD[facility] for weight management 5) Follow-up with cardiology, pulmonology, or nephrology 6) Continue to monitor I&O, labs, and skin integrity Expected Outcomes/Goals: 1) patient to receive nutritional support within 7 days of NPO status 2) labs to improve 3) diet to advance 4) f/u in 2-3 days Plan discussed with: Patient Capillary Refill: < 3 seconds URBANO TRUONG MD Jul 15, 2025 14:45
[2025-07-16] MEDS ORDERED: ENOXAPARIN SOD 40 MG/0.4 ML SYRINGE SC SCH (10:00)
== END 2025-07-15 22:52 | disposition short-term general hospital (02) | DRG 710 ==
LOC: ER 20:55 → EDBD 20:55 → OVERFLOW 06-09 00:59 → ICU WEST 06-11 14:25
PROVIDERS: ADMIT Internal Medicine; ATTEND Internal Medicine
PROC: 5A09457 Assistance with Respiratory Ventilation, 24-96 Consecutive Hours, Continuous Positive Airway Pressure (ICD-10-PCS; 2025-06-08)
PROC: 05HF33Z Insertion of Infusion Device into Left Cephalic Vein, Percutaneous Approach (ICD-10-PCS; 2025-06-10)
PROC: B54NZZA Ultrasonography of Left Upper Extremity Veins, Guidance (ICD-10-PCS; 2025-06-10)
PROC: 0BH17EZ Insertion of Endotracheal Airway into Trachea, Via Natural or Artificial Opening (ICD-10-PCS; principal; 2025-06-11)
PROC: 5A1955Z Respiratory Ventilation, Greater than 96 Consecutive Hours (ICD-10-PCS; 2025-06-11)
PROC: 02HV33Z Insertion of Infusion Device into Superior Vena Cava, Percutaneous Approach (ICD-10-PCS; 2025-06-11)
PROC: B548ZZA Ultrasonography of Superior Vena Cava, Guidance (ICD-10-PCS; 2025-06-11)
PROC: 0DTK0ZZ Resection of Ascending Colon, Open Approach (ICD-10-PCS; 2025-06-17)
PROC: 0DTL0ZZ Resection of Transverse Colon, Open Approach (ICD-10-PCS; 2025-06-17)
PROC: 0DBM0ZZ Excision of Descending Colon, Open Approach (ICD-10-PCS; 2025-06-19)
PROC: 06HY33Z Insertion of Infusion Device into Lower Vein, Percutaneous Approach (ICD-10-PCS; 2025-06-19)
PROC: B54BZZA Ultrasonography of Right Lower Extremity Veins, Guidance (ICD-10-PCS; 2025-06-19)
PROC: 04HY32Z Insertion of Monitoring Device into Lower Artery, Percutaneous Approach (ICD-10-PCS; 2025-06-19)
PROC: 0D1B0ZN Bypass Ileum to Sigmoid Colon, Open Approach (ICD-10-PCS; 2025-06-20)
PROC: 30233N1 Transfusion of Nonautologous Red Blood Cells into Peripheral Vein, Percutaneous Approach (ICD-10-PCS; 2025-06-20)
PROC: 5A1D70Z Performance of Urinary Filtration, Intermittent, Less than 6 Hours Per Day (ICD-10-PCS; 2025-06-20)
PROC: 5A1D70Z Performance of Urinary Filtration, Intermittent, Less than 6 Hours Per Day (ICD-10-PCS; 2025-06-21)
PROC: 5A09357 Assistance with Respiratory Ventilation, Less than 24 Consecutive Hours, Continuous Positive Airway Pressure (ICD-10-PCS; 2025-06-27)
PROC: 5A09357 Assistance with Respiratory Ventilation, Less than 24 Consecutive Hours, Continuous Positive Airway Pressure (ICD-10-PCS; 2025-06-28)
PROC: 5A09357 Assistance with Respiratory Ventilation, Less than 24 Consecutive Hours, Continuous Positive Airway Pressure (ICD-10-PCS; 2025-06-29)
PROC: 02HV33Z Insertion of Infusion Device into Superior Vena Cava, Percutaneous Approach (ICD-10-PCS; 2025-06-29)
PROC: B548ZZA Ultrasonography of Superior Vena Cava, Guidance (ICD-10-PCS; 2025-06-29)
PROC: 0DB98ZX Excision of Duodenum, Via Natural or Artificial Opening Endoscopic, Diagnostic (ICD-10-PCS; 2025-07-09)
PROC: 0DB68ZX Excision of Stomach, Via Natural or Artificial Opening Endoscopic, Diagnostic (ICD-10-PCS; 2025-07-09)
PROC: B24BZZ4 Ultrasonography of Heart with Aorta, Transesophageal (ICD-10-PCS; 2025-07-14)
PROC: 4A023N8 Measurement of Cardiac Sampling and Pressure, Bilateral, Percutaneous Approach (ICD-10-PCS; 2025-07-14)
PROC: B211YZZ Fluoroscopy of Multiple Coronary Arteries using Other Contrast (ICD-10-PCS; 2025-07-14)
PROC: B215YZZ Fluoroscopy of Left Heart using Other Contrast (ICD-10-PCS; 2025-07-14)
PROC: 4A033BC Measurement of Arterial Pressure, Coronary, Percutaneous Approach (ICD-10-PCS; 2025-07-14)
DX: A41.59 Other Gram-negative sepsis (principal); R65.21 Severe sepsis with septic shock; N17.0 Acute kidney failure with tubular necrosis; J96.21 Acute and chronic respiratory failure with hypoxia; K55.9 Vascular disorder of intestine, unspecified; K59.39 Other megacolon; J15.69 Pneumonia due to other Gram-negative bacteria; D73.5 Infarction of spleen; Z66 Do not resuscitate; I50.33 Acute on chronic diastolic (congestive) heart failure; J44.0 Chronic obstructive pulmonary disease with (acute) lower respiratory infection; J44.1 Chronic obstructive pulmonary disease with (acute) exacerbation; D63.1 Anemia in chronic kidney disease; N18.31 Chronic kidney disease, stage 3a; E66.01 Morbid (severe) obesity due to excess calories; I48.0 Paroxysmal atrial fibrillation; E87.0 Hyperosmolality and hypernatremia; E43 Unspecified severe protein-calorie malnutrition; D62 Acute posthemorrhagic anemia; E83.39 Other disorders of phosphorus metabolism; K29.70 Gastritis, unspecified, without bleeding; K44.9 Diaphragmatic hernia without obstruction or gangrene; E78.5 Hyperlipidemia, unspecified; I08.3 Combined rheumatic disorders of mitral, aortic and tricuspid valves; I13.0 Hypertensive heart and chronic kidney disease with heart failure and stage 1 through stage 4 chronic kidney disease, or unspecified chronic kidney disease; R73.03 Prediabetes; F41.9 Anxiety disorder, unspecified; E87.6 Hypokalemia; E83.42 Hypomagnesemia; K63.89 Other specified diseases of intestine; R73.9 Hyperglycemia, unspecified; E03.9 Hypothyroidism, unspecified; E87.20 Acidosis, unspecified; J15.9 Unspecified bacterial pneumonia; R74.01 Elevation of levels of liver transaminase levels; I25.10 Atherosclerotic heart disease of native coronary artery without angina pectoris; D68.4 Acquired coagulation factor deficiency; E87.1 Hypo-osmolality and hyponatremia; N39.0 Urinary tract infection, site not specified; J45.901 Unspecified asthma with (acute) exacerbation; K75.81 Nonalcoholic steatohepatitis (NASH); K65.9 Peritonitis, unspecified; K91.840 Postprocedural hemorrhage of a digestive system organ or structure following a digestive system procedure; A74.9 Chlamydial infection, unspecified; I08.0 Rheumatic disorders of both mitral and aortic valves; Z88.1 Allergy status to other antibiotic agents; Z90.49 Acquired absence of other specified parts of digestive tract; Z99.81 Dependence on supplemental oxygen; Z95.2 Presence of prosthetic heart valve; Z90.710 Acquired absence of both cervix and uterus; Z83.3 Family history of diabetes mellitus; Z82.49 Family history of ischemic heart disease and other diseases of the circulatory system; Z79.899 Other long term (current) drug therapy; Z85.42 Personal history of malignant neoplasm of other parts of uterus; Z86.73 Personal history of transient ischemic attack (TIA), and cerebral infarction without residual deficits; Z87.891 Personal history of nicotine dependence; Z79.01 Long term (current) use of anticoagulants; Z68.35 Body mass index [BMI] 35.0-35.9, adult; Y83.2 Surgical operation with anastomosis, bypass or graft as the cause of abnormal reaction of the patient, or of later complication, without mention of misadventure at the time of the procedure; Y92.238 Other place in hospital as the place of occurrence of the external cause
CPT/HCPCS: 36415; 36430; 36556; 36569; 36600; 36620; 70450; 71045; 72125; 74018; 74176; 74177; 76705; 76775; 80048; 80053; 80074; 80076; 80202; 81001; 82270; 82570; 82728; 82805; 82962; 83036; 83540; 83550; 83605; 83735; 83880; 84100; 84132; 84156; 84300; 84439; 84443; 84478; 84480; 84484; 85007; 85014; 85018; 85025; 85027; 85610; 85652; 85730; 86141; 86850; 86900; 86901; 86920; 87040; 87045; 87070; 87077; 87081; 87086; 87088; 87186; 87205; 87426; 87427; 87804; 90935; 92610; 93005; 93312; 93460; 93571; 93971; 94002; 94003; 94640; 94660; 96365; 97110; 97163; 99152; 99291; 99292; C1887; G0378; J0131; J0692; J0694; J1100; J1450; J1642; J1756; J1815; J2185; J2248; J2250; J2405; J2470; J2543; J2704; J3480; J7131; P9047; Q9967